=== PATIENT | male | born 1975 | race Caucasian/White ===

== ENCOUNTER 2017-06-20 08:24 | Inpatient (IN) | payer OTHER ==
[~2017-06-20] VITALS: Ht 175.3 cm; Wt 99.2 kg
--- NOTE | 2017-06-20 08:46 | EMERGENCY ROOM VISIT NOTE ---
History First contact with patient: 08:29 Chief Complaint: INFECTION Stated Complaint: BLOOD CLOT AND INFECTION Nursing Triage Summary: pt reports he was [place] a couple weeks ago had infection in left leg now worse. was hospitalized [place] [facility]. took percocet at 0430 this am History of Present Illness The patient is a 42 year old male who presents to the Emergency Room via private vehicle with complaints of "blood clot and infection". The patient states that he recently was admitted at [facility], and discharged on June 09. He states he was there because of leg ulcers, and cellulitis. He was given vancomycin. He states that the veins in his legs are very hard and tender to palpation. His left medial thigh is very painful that he rates as a 7 /10. He also notes odors coming from the bilateral anterior victoria wounds. He states that he is hypercoagulable, and has 3 different mutation/disorders of which place him at a higher risk. He has a history of PE in 1997. He states that in June of last year his legs were completely healed, however throughout that time he has been decompensating. 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 He stopped taking it because he could not get his INR tested. He denies any chest pain, shortness of breath, fevers or chills. He denies any diabetes, hypertension or cholesterol elevation. Review of Systems A complete 10-point Review of Systems was discussed with the patient, with pertinent positives and negatives listed in the History of Present Illness. All remaining Review of Systems questions can be considered negative unless otherwise specified. Past Medical/Surgical History Medical Problems: (1) Cellulitis Cellulitis, PE, DVT, Skin leg ulcers Family History No pertinent Social History Smoking Status: Current Every Day Smoker Pt. lives locally Current/Historical Medications Scheduled Albuterol Hfa (Ventolin Hfa), 2-4 PUFFS INH Q6H Docusate Sodium (Colace), 100 MG PO BID Fluticasone Prop/Salmeterol (Advair Diskus 250/50 60 Dose), 1 PUFF INH BID Folic Acid (Folic Acid), 1 MG PO DAILY Omeprazole (Prilosec), 20 MG PO BID Thiamine HCl (Vitamin B-1), 100 MG PO DAILY Tiotropium [place] (Spiriva Handihaler), 1 CAP INH DAILY Trazodone Hcl (Trazodone), 150 MG PO DAILY Scheduled PRN Oxycodone/Acetaminophen 5MG/325MG (Percocet 5MG/325MG), 2 TABLETS PO Q6H PRN for Pain Physical Exam Vital Signs Date Time Temp Pulse Resp B/P (MAP) Pulse Ox O2 Delivery O2 Flow Rate FiO2 06/20/17 13:26 88 18 137/81 96 Room Air 06/20/17 11:42 71 18 131/73 98 06/20/17 09:38 76 06/20/17 09:35 93 Room Air 06/20/17 09:35 81 18 132/78 93 Room Air 06/20/17 08:26 36.8 83 18 173/113 98 Room Air Physical Exam VITAL SIGNS - Vital signs and nursing notes were reviewed. Stable. GENERAL - 42-year-old male appearing his stated age who is in no acute distress. Communicates well with provider and answers questions appropriately. SKIN - there are numerous anterior victoria ulcerations, darkened skin and evidence of poor blood flow. HEAD - NC/AT. EYES -Sclera anicteric. EARS - No deformities of external structures noted on gross examination bilaterally. NOSE - Midline and without cyanosis. No epistaxis or purulent drainage noted. MOUTH/OROPHARYNX - Without perioral cyanosis. LUNGS - Chest wall symmetric without accessory muscle use, intercostals retractions, or central cyanosis. There is wheezing noted bilaterally. No focal consolidation noted. CARDIAC - RRR with S1/S2. No murmur, rubs, or gallops appreciated. EXTREMITIES - No clubbing or peripheral cyanosis. No pretibial edema present. There is bilateral darkening of the anterior shins, skin thinning, as well as erythema to the proximal thighs with tender to palpation hardened/indurated regions suspected to be veins. He is neurovascularly intact in this region. +5 /5 strength noted in UE/LE bilaterally. Medical Decision & Procedures ER Provider Diagnostic Interpretation: ULTRASOUND VENOUS DOPPLER LWR EXT BILA CLINICAL HISTORY: Bilateral leg pain, hypercoagulable state COMPARISON STUDY: No previous studies for comparison. FINDINGS: The examination was difficult. The veins were small possibly secondary to chronic scarring. On the right there was minimal color flow. The common femoral through the popliteal vein were not compressible. No expanding thrombus is visualized in the findings may reflect sequela of prior DVT. On the left there was diminished flow within the proximal superficial femoral vein. The mid and distal superficial femoral vein were not visualized. The popliteal vein was poorly visualized but there is a decreased compressibility. There are bilateral enlarged inguinal lymph nodes. IMPRESSION: 1. Bilateral DVT, likely chronic. 2. Enlarged bilateral inguinal lymph nodes Electronically signed by: Heriberto Tiwari M.D. 06/20/2017 12:33 PM Dictated Date/Time: 06/20/2017 11:49 AM Laboratory Results 06/20/17 08:55 Red Blood Count 4.88, Mean Corpuscular Volume 92.6, Mean Corpuscular Hemoglobin 32.0, Mean Corpuscular Hemoglobin Concent 34.5, Mean Platelet Volume 9.8, Neutrophils (%) (Auto) 82.5, Lymphocytes (%) (Auto) 9.9, Monocytes (%) (Auto) 6.3, Eosinophils (%) (Auto) 0.6, Basophils (%) (Auto) 0.5, Neutrophils # (Auto) 5.35, Lymphocytes # (Auto) 0.64, Monocytes # (Auto) 0.41, Eosinophils # (Auto) 0.04, Basophils # (Auto) 0.03 06/20/17 08:55 Test 06/20/17 08:55 06/20/17 11:50 White Blood Count 6.48 K/uL (4.8-10.8) Red Blood Count 4.88 M/uL (4.7-6.1) Hemoglobin 15.6 g/dL (14.0-18.0) Hematocrit 45.2 % (42-52) Mean Corpuscular Volume 92.6 fL (80-100) Mean Corpuscular Hemoglobin 32.0 pg (25-34) Mean Corpuscular Hemoglobin Concent 34.5 g/dl (32-36) Platelet Count 173 K/uL (130-400) Mean Platelet Volume 9.8 fL (7.4-10.4) Neutrophils (%) (Auto) 82.5 % Lymphocytes (%) (Auto) 9.9 % Monocytes (%) (Auto) 6.3 % Eosinophils (%) (Auto) 0.6 % Basophils (%) (Auto) 0.5 % Neutrophils # (Auto) 5.35 K/uL (1.4-6.5) Lymphocytes # (Auto) 0.64 K/uL (1.2-3.4) Monocytes # (Auto) 0.41 K/uL (0.11-0.59) Eosinophils # (Auto) 0.04 K/uL (0-0.5) Basophils # (Auto) 0.03 K/uL (0-0.2) RDW Standard Deviation 53.6 fL (36.4-46.3) RDW Coefficient of Variation 15.6 % (11.5-14.5) Immature Granulocyte % (Auto) 0.2 % Immature Granulocyte # (Auto) 0.01 K/uL (0.00-0.02) Prothrombin Time 10.3 SECONDS (9.0-12.0) Prothromb Time International Ratio 1.0 (0.9-1.1) Activated Partial Thromboplast Time 25.4 SECONDS (21.0-31.0) Partial Thromboplastin Ratio 1.0 Anion Gap 9.0 mmol/L (3-11) Est Creatinine Clear Calc Drug Dose 122.9 ml/min Estimated GFR () 120.8 Estimated GFR (Non- 104.2 BUN/Creatinine Ratio 8.4 (10-20) Calcium Level 9.3 mg/dl (8.5-10.1) Total Bilirubin 0.7 mg/dl (0.2-1) Aspartate Amino Transf (AST/SGOT) 37 U/L (15-37) Alanine Aminotransferase (ALT/SGPT) 55 U/L (12-78) Alkaline Phosphatase 97 U/L (45-117) Total Protein 9.4 gm/dl (6.4-8.2) Albumin 3.7 gm/dl (3.4-5.0) Globulin 5.7 gm/dl (2.5-4.0) Albumin/Globulin Ratio 0.7 (0.9-2) Bedside Lactic Acid Venous 0.66 mmol/L (0.90-1.70) Medications Administered Medications (Trade) Dose Ordered Sig/Ilia Route Start Time Stop Time Status Last Admin Dose Admin Morphine Sulfate (MoRPHine SULFATE INJ) 4 mg NOW STAT IV 06/20/17 09:24 06/20/17 09:25 DC 06/20/17 09:32 4 MG Medical Decision Patient was seen and evaluated as above. After obtaining a thorough history and physical examination IV access was initiated, and a workup was performed. The patient presents to us today with bilateral thigh pain. He has a history of DVT. He has a history of PE. He is a hypercoagulable individual. Ultrasound reveals bilateral DVT with inguinal lymph node enlargement. Clinically he may have a cellulitis superimposed. CBC reveals no concern of leukocytosis or anemia. Coags normal. Patient's metabolic panel reveals potassium slightly low at 3.3. Otherwise no acute process. Blood cultures were obtained. Lactate is normal. At this time the patient I believe should be admitted for further evaluation and management. Case was discussed with the attending physician, and subtotally discussed the case with the hospitalist. Please refer to further documentation regarding the patient's stay. Evaluation treatment this patient the following differential diagnoses were entertained: DVT, PE, sialitis, femoral phlebitis, among others. Impression Primary Impression: DVT of lower extremity, bilateral Departure Information Dispostion Admitted as an inpatient Condition FAIR Referrals No Doctor, Assigned (PCP) Patient Instructions [facility]
[2017-06-20] MEDS ORDERED: ADVIN25/60 INH (09:04)
[2017-06-20] MEDS ORDERED: VNTHFA/IN INH (09:04)
[2017-06-20] MEDS ORDERED: OXYC-57 PO (09:04)
[2017-06-20] MEDS ORDERED: PRLSR20 PO (09:04)
[2017-06-20] MEDS ORDERED: TRAZ100T29 PO (09:04)
[2017-06-20 09:23] LABS: BASO % 0.5 %; BASO ABS # 0.03 K/uL (0-0.2); COMPLETE YES; EOS % 0.6 %; HEMATOCRIT 45.2 % (42-52); IG% 0.2 %; LYMPH % 9.9 %; LYMPH ABS # 0.64 K/uL (1.2-3.4); MEAN CELL VOLUME 92.6 fL (80-100); MEAN CORPUSCULAR HGB CONC 34.5 g/dl (32-36); MEAN PLATELET VOLUME 9.8 fL (7.4-10.4); MONO % 6.3 %; NEUT % 82.5 %; PLATELET COUNT 173 K/uL (130-400); RED BLOOD COUNT 4.88 M/uL (4.7-6.1); WHITE BLOOD COUNT 6.48 K/uL (4.8-10.8)
[2017-06-20] MEDS ORDERED: MoRPHine SULFATE 4 MG/ML 1 ML CARP\\VIAL IV STA (09:24)
[2017-06-20 09:32] LABS: PROTHROMBIN TIME (PATIENT) 10.3 SECONDS (9.0-12.0)
[2017-06-20 09:40] LABS: BUN/CREATININE RATIO 8.4 (10-20); CALCIUM 9.3 mg/dl (8.5-10.1); CREATININE 0.9 mg/dl (0.60-1.40); POTASSIUM 3.3 mmol/L (3.5-5.1)
[2017-06-20 09:43] LABS: ALB/GLOB RATIO 0.7 (0.9-2)
--- NOTE | 2017-06-20 12:34 | DIAGNOSTIC IMAGING REPORT ---
ULTRASOUND VENOUS DOPPLER LWR EXT BILA CLINICAL HISTORY: Bilateral leg pain, hypercoagulable state COMPARISON STUDY: No previous studies for comparison. FINDINGS: The examination was difficult. The veins were small possibly secondary to chronic scarring. On the right there was minimal color flow. The common femoral through the popliteal vein were not compressible. No expanding thrombus is visualized in the findings may reflect sequela of prior DVT. On the left there was diminished flow within the proximal superficial femoral vein. The mid and distal superficial femoral vein were not visualized. The popliteal vein was poorly visualized but there is a decreased compressibility. There are bilateral enlarged inguinal lymph nodes. IMPRESSION: 1. Bilateral DVT, likely chronic. 2. Enlarged bilateral inguinal lymph nodes Electronically signed by: Heriberto Tiwari M.D. 06/20/2017 12:33 PM Dictated Date/Time: 06/20/2017 11:49 AM
[2017-06-20] MEDS ORDERED: POLYETHYLENE (MIRALAX) 17 GM PACK PO PRN (14:00)
[2017-06-20] MEDS ORDERED: ONDANSETRON INJ 2 MG/ML 2 ML VIAL IV PRN (14:00)
[2017-06-20] MEDS ORDERED: ACETAMINOPHEN 325 MG TAB PO PRN (14:00)
[2017-06-20] MEDS ORDERED: CONSULT PHARMACY STA (14:11)
[2017-06-20] MEDS ORDERED: THM100 PO (14:24)
[2017-06-20] MEDS ORDERED: SPRIN/30 INH (14:24)
[2017-06-20] MEDS ORDERED: FLV1 PO (14:24)
[2017-06-20] MEDS ORDERED: DOCU-94 PO (14:24)
--- NOTE | 2017-06-20 14:28 | History and Physical ---
History & Physical Date & Time of Service: Jun 20, 2017 at 13:24 Chief Complaint: Blood Clot And Infection Primary Care Physician: No Doctor, Assigned History of Present Illness Source: patient, clinic records, hospital records 42 yo M with h/o severe venous stasis, DVT and PE on chronic warfarin anticoagulation who presents with worsening infectious symptoms in his groin and upper legs L>R. He has had multiple hospital admissions for cellulitis at [facility], the most recent was 06/06-06/09/17. During this admission , he was started on IV Vancomycin was discharged with clindamycin which was complete on 06/14. The patient states he doesn't think the clindamycin made any improvement at home. He recently states that he stopped his coumadin 2/2 losing his license and not being able to get his INR checked. (Of note, he reports losing his license 2/2 DUI in December but states that although he was a heavy drinker in the past, he doesn't drink more than once weekly now.) He was also hospitalized in 04/13 at the same facility for this issues and spent 6 weeks in a rehab facility. He was home for two weeks prior to his May admission. He lives at home alone with his mom as closest family in [place] [place] [facility]. He still smokes 0.5 ppd. He denies any SOB or coughing or wheezing, but when I informed him that I heard wheezing on the exam, he said he knew that "because I smoke." He has been treating his wounds with silvadene at home. He reports some worsening drainage that is not pus but states that he has a h/o MRSA and was told to always consider any drainage to be a MRSA infection. He reports some fevers and chills last week. He reports good PO intake and denies any chest pain, headaches, congestion, abdominal pain, nausea, vomiting, diarrhea, UTI symptoms or difficulties with ambulation. Past Medical/Surgical History Medical Problems: (1) Chronic deep vein thrombosis (DVT) Status: Chronic (2) Chronic ulcer of leg Status: Chronic (3) Chronic venous stasis dermatitis of both lower extremities Status: Chronic (4) COPD (chronic obstructive pulmonary disease) Status: Chronic (5) Depression Status: Chronic (6) GERD (gastroesophageal reflux disease) Status: Chronic (7) H/O ETOH abuse Status: Chronic (8) H/O methicillin resistant Staphylococcus aureus Status: Chronic (9) Hypercoagulable state Status: Chronic (10) Narcotic dependence Status: Chronic (11) Tobacco abuse Status: Chronic (12) Venous (peripheral) insufficiency Status: Chronic Family History Hypercoagulability MOTHER Social History Smoking Status: Current Every Day Smoker Smokeless Tobacco Use: No Alcohol Use: heavy Marital Status: single Housing status: lives alone Immunizations History of Influenza Vaccine: Yes Influenza Vaccine Date: Jun 08, 2017 History of Tetanus Vaccine?: Yes Tetanus Immunization Date: Mar 22, 2007 History of Pneumococcal: Yes Pneumococcal Date: Feb 09, 2017 History of Hepatitis B Vaccine: Unknown Multi-Drug Resistant Organisms History of MDRO: Yes Type of MDRO: MRSA Allergies Coded Allergies: Sulfamethoxazole w/Trimethoprim (Unverified Allergy, Unknown, hives, 06/20) Uncoded Allergies: DUST (Allergy, Unknown, 10/10/02) N (Allergy, Unknown, 10/10/02) NKA (Allergy, Unknown, 10/10/02) PEAS (Allergy, Unknown, 10/10/02) Home Medications Scheduled Albuterol Hfa (Ventolin Hfa), 2-4 PUFFS INH Q6H Docusate Sodium (Colace), 100 MG PO BID Fluticasone Prop/Salmeterol (Advair Diskus 250/50 60 Dose), 1 PUFF INH BID Folic Acid (Folic Acid), 1 MG PO DAILY Omeprazole (Prilosec), 20 MG PO BID Thiamine HCl (Vitamin B-1), 100 MG PO DAILY Tiotropium [place] (Spiriva Handihaler), 1 CAP INH DAILY Trazodone Hcl (Trazodone), 150 MG PO DAILY Scheduled PRN Oxycodone/Acetaminophen 5MG/325MG (Percocet 5MG/325MG), 2 TABLETS PO Q6H PRN for Pain Review of Systems At least ten systems reviewed and negative except as indicated in HPI. Physical Exam Vital Signs Date Time Temp Pulse Resp B/P (MAP) Pulse Ox O2 Delivery O2 Flow Rate FiO2 06/20/17 11:42 71 18 131/73 98 06/20/17 09:38 76 06/20/17 09:35 93 Room Air 06/20/17 09:35 81 18 132/78 93 Room Air 06/20/17 08:26 36.8 83 18 173/113 98 Room Air General Appearance: WD/WN, no apparent distress Head: normocephalic, atraumatic Eyes: normal inspection, sclerae normal ENT: hearing grossly normal Neck: trachea midline Respiratory/Chest: + crackles, + wheezing (throughout all lung johnson) Cardiovascular: regular rate, rhythm, no JVD, no murmur, normal peripheral pulses Abdomen/GI: normal bowel sounds, non tender, soft Extremities/Musculoskelatal: + inflammation, + pedal edema, + pertinent finding (redness all way up legs bilaterally, warmth to upper thighs over erythema, chronic darkened skin with healed ulcerations distally and open draining wounds on anterior lower legs, malodorous.) Neurologic/Psych: golf ball marker II-XII nml as tested, no motor/sensory deficits, alert, normal mood/affect, oriented x 3 Skin: + pertinent finding (wounds as above on legs, otherwise warm and dry. ) Lymphatic: no adenopathy Diagnostics Laboratory Results 06/20/17 08:55 Red Blood Count 4.88, Mean Corpuscular Volume 92.6, Mean Corpuscular Hemoglobin 32.0, Mean Corpuscular Hemoglobin Concent 34.5, Mean Platelet Volume 9.8, Neutrophils (%) (Auto) 82.5, Lymphocytes (%) (Auto) 9.9, Monocytes (%) (Auto) 6.3, Eosinophils (%) (Auto) 0.6, Basophils (%) (Auto) 0.5, Neutrophils # (Auto) 5.35, Lymphocytes # (Auto) 0.64, Monocytes # (Auto) 0.41, Eosinophils # (Auto) 0.04, Basophils # (Auto) 0.03 06/20/17 08:55 Test 06/20/17 08:55 06/20/17 11:50 White Blood Count 6.48 K/uL (4.8-10.8) Red Blood Count 4.88 M/uL (4.7-6.1) Hemoglobin 15.6 g/dL (14.0-18.0) Hematocrit 45.2 % (42-52) Mean Corpuscular Volume 92.6 fL (80-100) Mean Corpuscular Hemoglobin 32.0 pg (25-34) Mean Corpuscular Hemoglobin Concent 34.5 g/dl (32-36) Platelet Count 173 K/uL (130-400) Mean Platelet Volume 9.8 fL (7.4-10.4) Neutrophils (%) (Auto) 82.5 % Lymphocytes (%) (Auto) 9.9 % Monocytes (%) (Auto) 6.3 % Eosinophils (%) (Auto) 0.6 % Basophils (%) (Auto) 0.5 % Neutrophils # (Auto) 5.35 K/uL (1.4-6.5) Lymphocytes # (Auto) 0.64 K/uL (1.2-3.4) Monocytes # (Auto) 0.41 K/uL (0.11-0.59) Eosinophils # (Auto) 0.04 K/uL (0-0.5) Basophils # (Auto) 0.03 K/uL (0-0.2) RDW Standard Deviation 53.6 fL (36.4-46.3) RDW Coefficient of Variation 15.6 % (11.5-14.5) Immature Granulocyte % (Auto) 0.2 % Immature Granulocyte # (Auto) 0.01 K/uL (0.00-0.02) Prothrombin Time 10.3 SECONDS (9.0-12.0) Prothromb Time International Ratio 1.0 (0.9-1.1) Activated Partial Thromboplast Time 25.4 SECONDS (21.0-31.0) Partial Thromboplastin Ratio 1.0 Anion Gap 9.0 mmol/L (3-11) Est Creatinine Clear Calc Drug Dose 122.9 ml/min Estimated GFR () 120.8 Estimated GFR (Non- 104.2 BUN/Creatinine Ratio 8.4 (10-20) Calcium Level 9.3 mg/dl (8.5-10.1) Total Bilirubin 0.7 mg/dl (0.2-1) Aspartate Amino Transf (AST/SGOT) 37 U/L (15-37) Alanine Aminotransferase (ALT/SGPT) 55 U/L (12-78) Alkaline Phosphatase 97 U/L (45-117) Total Protein 9.4 gm/dl (6.4-8.2) Albumin 3.7 gm/dl (3.4-5.0) Globulin 5.7 gm/dl (2.5-4.0) Albumin/Globulin Ratio 0.7 (0.9-2) Bedside Lactic Acid Venous 0.66 mmol/L (0.90-1.70) Date/Time Source Procedure Growth Status 06/20/17 09:15 Blood Blood Culture Pending Received Results Past 24 Hours Test 06/20/17 08:55 06/20/17 09:03 06/20/17 11:50 Range/Units White Blood Count 6.48 4.8-10.8 K/uL Red Blood Count 4.88 4.7-6.1 M/uL Hemoglobin 15.6 14.0-18.0 g/dL Hematocrit 45.2 42-52 % Mean Corpuscular Volume 92.6 80-100 fL Mean Corpuscular Hemoglobin 32.0 25-34 pg Mean Corpuscular Hemoglobin Concent 34.5 32-36 g/dl Platelet Count 173 130-400 K/uL Mean Platelet Volume 9.8 7.4-10.4 fL Neutrophils (%) (Auto) 82.5 % Lymphocytes (%) (Auto) 9.9 % Monocytes (%) (Auto) 6.3 % Eosinophils (%) (Auto) 0.6 % Basophils (%) (Auto) 0.5 % Neutrophils # (Auto) 5.35 1.4-6.5 K/uL Lymphocytes # (Auto) 0.64 1.2-3.4 K/uL Monocytes # (Auto) 0.41 0.11-0.59 K/uL Eosinophils # (Auto) 0.04 0-0.5 K/uL Basophils # (Auto) 0.03 0-0.2 K/uL RDW Standard Deviation 53.6 36.4-46.3 fL RDW Coefficient of Variation 15.6 11.5-14.5 % Immature Granulocyte % (Auto) 0.2 % Immature Granulocyte # (Auto) 0.01 0.00-0.02 K/uL Prothrombin Time 10.3 9.0-12.0 SECONDS Prothromb Time International Ratio 1.0 0.9-1.1 Activated Partial Thromboplast Time 25.4 21.0-31.0 SECONDS Partial Thromboplastin Ratio 1.0 Sodium Level 138 136-145 mmol/L Potassium Level 3.3 3.5-5.1 mmol/L Chloride Level 106 98-107 mmol/L Carbon Dioxide Level 23 21-32 mmol/L Anion Gap 9.0 3-11 mmol/L Blood Urea Nitrogen 8 7-18 mg/dl Creatinine 0.90 0.60-1.40 mg/dl Est Creatinine Clear Calc Drug Dose 122.9 ml/min Estimated GFR () 120.8 Estimated GFR (Non- 104.2 BUN/Creatinine Ratio 8.4 10-20 Random Glucose 116 70-99 mg/dl Calcium Level 9.3 8.5-10.1 mg/dl Total Bilirubin 0.7 0.2-1 mg/dl Aspartate Amino Transf (AST/SGOT) 37 15-37 U/L Alanine Aminotransferase (ALT/SGPT) 55 12-78 U/L Alkaline Phosphatase 97 45-117 U/L Total Protein 9.4 6.4-8.2 gm/dl Albumin 3.7 3.4-5.0 gm/dl Globulin 5.7 2.5-4.0 gm/dl Albumin/Globulin Ratio 0.7 0.9-2 Bedside Lactic Acid Venous 1.51 0.66 0.90-1.70 mmol/L Microbiology Results 06/20/17 Blood Culture, Received Pending 06/20/17 Blood Culture, Received Pending Diagnostic Radiology ULTRASOUND VENOUS DOPPLER LWR EXT BILA CLINICAL HISTORY: Bilateral leg pain, hypercoagulable state COMPARISON STUDY: No previous studies for comparison. FINDINGS: The examination was difficult. The veins were small possibly secondary to chronic scarring. On the right there was minimal color flow. The common femoral through the popliteal vein were not compressible. No expanding thrombus is visualized in the findings may reflect sequela of prior DVT. On the left there was diminished flow within the proximal superficial femoral vein. The mid and distal superficial femoral vein were not visualized. The popliteal vein was poorly visualized but there is a decreased compressibility. There are bilateral enlarged inguinal lymph nodes. IMPRESSION: 1. Bilateral DVT, likely chronic. 2. Enlarged bilateral inguinal lymph nodes Impression Assessment and Plan 42 yo M smoker with h/o narcotic dependence, chronic DVT secondary to hypercoagulable state and recurrent cellulitis with multiple hospital admissions admitted for worsening cellulitis of lower extremities. 1. Bilateral LE cellulitis-h/o peripheral venous insufficiency with chronic wounds and DVTs, multiple recent hospitalizations including Mar and May 2017 for cellulitis at outside hospital. Most recent regimen included Vanc IV x 3 days with transition to clindamycin for 5 days as outpatient. Per patient he was not improved post-discharge. Will start more broad with IV abx to cover MRSA, pseudomonas and anaerobes (Vanc/Zosyn) and will consult ID and wound care for evaluation. Wound GS/Culture ordered. Blood cultures ordered (pt not septic). 2. COPD exacerbation-wheezing on exam. Starting course of prednisone. Ordered Duonebs but pt declined and prefers to use albuterol inhaler. He is not hypoxic and without respiratory distress. CXR pending. On abx as above covering any poss lung pathogens. Nicotine patch given. Counseled on quitting smoking. States that he has tried nicotine patches in the past and he is cutting back to 1/2 pack per day. 3. DVT-recurrent. Uncertain of initial diagnosis date. States that he initially had PE in 1997 and was on coumadin for 2 years, then taken off with recurrent DVT. Then was out on it lifelong. Mutations were found by [facility] at [facility] >10 years ago and he doesn't see someone regularly. Venous doppler reveals bilateral DVT likely chronic. Need to restart coumadin and will cover with Lovenox 1mg/kg until therapeutic for 2 days. Pt will need [facility] follow-up on discharge and a new way to get there since losing his license. Appreciate Case Management assistance with this. 4. Hypokalemia-replace PO. Repeat in am. 5. Chronic leg pain/narcotic dependence-cont Percocet 6. Depression-appears stable, not on medications at home 7. h/o ETOH abuse-cont folate and thiamine. Watch for alcohol withdrawal. Pt reports last drink was last week. 8. Smoker-counseled to quit. Nicotine patch provided 9. GERD-cont PPI BID DVT proh-Lovenox/coumadin Full Code Dispo-med[facility]surg. [facility] Level of Care Med/Surg Resuscitation Status FULL RESUSCITATION VTE Prophylaxis Risk Level: High Given or contraindicated: Enoxaparin (Lovenox)SQ, Warfarin (Coumadin)
[2017-06-20] MEDS ORDERED: VANCOMYCIN CONSULT ACTIVE PRN (14:30)
[2017-06-20] MEDS ORDERED: PIPERACILL/TAZOBAC CONSULT ACTIVE PRN (14:30)
[2017-06-20 14:42] VITALS: BP 150/77; PULSE 76; TEMP 36.5; O2SAT 97
[2017-06-20] MEDS ORDERED: ENOXAPARIN 100 MG/1ML SYR SQ ONE (14:45)
[2017-06-20] MEDS ORDERED: POTASSIUM CHLORIDE 20 MEQ TABCR PO ONE (14:45)
--- NOTE | 2017-06-20 14:50 | Progress Note ---
Progress Note Date of Service Jun 20, 2017. Progress Note ID Consult Dictated #[id number] A/P: 1. B/L LE venous stasis ulcers -Continue abx for now -Wound care eval pending -Will follow, thank you
--- NOTE | 2017-06-20 15:09 | INFECT. DISEASE CONSULTATION ---
DATE OF CONSULTATION: 06/20/2017 REQUESTING PHYSICIAN: Jeromy Melgar DO HISTORY OF PRESENT ILLNESS: This is a 42-year-old gentleman who was admitted with worsening lower extremity wounds. He has chronic DVTs, history of PE and recently has stopped his Coumadin. He was recently hospitalized at [facility] and he states he has had multiple admissions there for recurrent cellulitis. There are no old records here to review. Blood cultures were obtained in the ER and are pending. He is afebrile without leukocytosis and clinically stable. He was placed empirically on vancomycin and Zosyn. A wound care consult was obtained. The patient states that he was to follow with the wound care center as an outpatient tomorrow; however, he was admitted to the hospital for worsening erythema and pain especially in his left lower extremity. He denies any fevers or chills at home. He denies any drainage from the wounds. He is having some pain with ambulation. He denies any chest pain, cough, shortness of breath, nausea, vomiting or diarrhea. Per the H&P, he was recently on a course of clindamycin which finished last week. He states that his symptoms have not improved significantly while on clindamycin. His remaining review of systems is reviewed and is unremarkable. PAST MEDICAL HISTORY: Significant for DVT, venous stasis ulcerations, PE and recurrent cellulitis. PAST SURGICAL HISTORY: Unremarkable. SOCIAL HISTORY: Significant for daily tobacco use. ALLERGIES: HE HAS AN ALLERGY TO BACTRIM. FAMILY HISTORY: Noncontributory. CURRENT MEDICATIONS: Include folic acid, thiamine, trazodone, prednisone, Colace, Protonix, Coumadin, DuoNebs, nicotine patch, potassium, Lovenox, vancomycin, Zosyn, Percocet, Tylenol, MiraLax and Zofran. PHYSICAL EXAMINATION: VITAL SIGNS: He is afebrile, pulse 76, respiratory rate is 22, blood pressure is 150/77, and oxygen saturation is 97% on room air. GENERAL: He is awake, alert and oriented x3. He is in no acute distress. HEENT: Mucous membranes are moist. Extraocular muscles are intact. HEART: Regular. LUNGS: Clear bilaterally. ABDOMEN: Soft, nontender, nondistended. EXTREMITIES: There is no lower extremity edema bilaterally. There is significant discoloration of his lower extremities with ulcerations bilaterally. There is no purulence, foul odor, or surrounding erythema. There is no warmth. There is erythema in the left popliteal fossa, which is tracking into the left groin. There is no warmth or tenderness associated with this. LABORATORY STUDIES: CBC today reveals a white blood cell count of 6.4, hemoglobin 15.6 and platelets of 173. Chemistry panel reveals sodium of 138, potassium 3.3, chloride 106, bicarbonate 23, BUN 8, creatinine 0.9, glucose is 116. Blood cultures are pending. Venous Doppler shows bilateral chronic DVTs. ASSESSMENT AND PLAN: Bilateral ulcerations. Wound care eval is pending. He will remain on broad spectrum antibiotics pending additional culture results. Thank you for this consultation.
[2017-06-20] MEDS: NICOTINE 21 MG/24 HR TDSY TD SCH (15:29)
[2017-06-20] MEDS: WARFARIN SOD 5 MG TAB PO SCH (15:30)
[2017-06-20 15:37] VITALS: BP 150/77; PULSE 76; TEMP 36.5; O2SAT 97; Ht 175.3 cm; Wt 99.2 kg
[2017-06-20] MEDS: OXYCODONE/ACETAMINOPHEN 5-325 TAB PO PRN ×2 (15:41→22:33)
[2017-06-20] MEDS ORDERED: PIPERACILL/TAZOBAC IV 3.375 GM in DEXTROSE 5% 100ML IV ONE (15:45)
[2017-06-20] MEDS ORDERED: VANCOMYCIN INJ 2,500 MG in SODIUM CHLORIDE 0.9% 500ML 500 ML IV ONE (15:45)
[2017-06-20] MEDS ORDERED: ALBUT/IPRATROP 3MG/0.5MG NEB 3 ML VIAL INH SCH (16:00)
[2017-06-20 16:03] VITALS: PULSE 80; O2SAT 97
--- NOTE | 2017-06-20 16:07 | DIAGNOSTIC IMAGING REPORT ---
CHEST ONE VIEW PORTABLE HISTORY: wheezing COMPARISON: None. FINDINGS: Mild perihilar interstitial thickening most pronounced at the lung bases. The heart is top normal in size. No pleural effusions. No pneumothorax. IMPRESSION: Mild interstitial thickening. This may represent an atypical pneumonitis versus reactive airways disease. Electronically signed by: Julian Gaitan M.D. 06/20/2017 4:06 PM Dictated Date/Time: 06/20/2017 4:05 PM
[2017-06-20] MEDS ORDERED: ALBUTEROL HFA 8 GM INHALER INH PRN (16:15)
--- NOTE | 2017-06-20 16:26 | Pharmacy Progress Note ---
Pharmacy Antibiotic Consult Date of Service: Jun 20, 2017. Pharmacy Dosing Scope Pharmacy is consulted to initiate Vancomycin and Zosyn IV dosing therapy, order appropriate labs and adjust drug dose/frequency. Subjective The patient is a 42 year old male admitted on Jun 20, 2017 at 13:29. Patient has a history of chronic DVT's and bilateral leg cellulitis with ulceration. Objective Height (Feet): 5 Height (Inches): 9.00 Weight (Kilograms): 99.200 Lab Results (24hrs): Test 06/20/17 08:55 06/20/17 09:03 06/20/17 11:50 White Blood Count 6.48 K/uL (4.8-10.8) Red Blood Count 4.88 M/uL (4.7-6.1) Hemoglobin 15.6 g/dL (14.0-18.0) Hematocrit 45.2 % (42-52) Mean Corpuscular Volume 92.6 fL (80-100) Mean Corpuscular Hemoglobin 32.0 pg (25-34) Mean Corpuscular Hemoglobin Concent 34.5 g/dl (32-36) Platelet Count 173 K/uL (130-400) Mean Platelet Volume 9.8 fL (7.4-10.4) Neutrophils (%) (Auto) 82.5 % Lymphocytes (%) (Auto) 9.9 % Monocytes (%) (Auto) 6.3 % Eosinophils (%) (Auto) 0.6 % Basophils (%) (Auto) 0.5 % Neutrophils # (Auto) 5.35 K/uL (1.4-6.5) Lymphocytes # (Auto) 0.64 K/uL (1.2-3.4) Monocytes # (Auto) 0.41 K/uL (0.11-0.59) Eosinophils # (Auto) 0.04 K/uL (0-0.5) Basophils # (Auto) 0.03 K/uL (0-0.2) RDW Standard Deviation 53.6 fL (36.4-46.3) RDW Coefficient of Variation 15.6 % (11.5-14.5) Immature Granulocyte % (Auto) 0.2 % Immature Granulocyte # (Auto) 0.01 K/uL (0.00-0.02) Prothrombin Time 10.3 SECONDS (9.0-12.0) Prothromb Time International Ratio 1.0 (0.9-1.1) Activated Partial Thromboplast Time 25.4 SECONDS (21.0-31.0) Partial Thromboplastin Ratio 1.0 Sodium Level 138 mmol/L (136-145) Potassium Level 3.3 mmol/L (3.5-5.1) Chloride Level 106 mmol/L (98-107) Carbon Dioxide Level 23 mmol/L (21-32) Anion Gap 9.0 mmol/L (3-11) Blood Urea Nitrogen 8 mg/dl (7-18) Creatinine 0.90 mg/dl (0.60-1.40) Est Creatinine Clear Calc Drug Dose 122.9 ml/min Estimated GFR () 120.8 Estimated GFR (Non- 104.2 BUN/Creatinine Ratio 8.4 (10-20) Random Glucose 116 mg/dl (70-99) Calcium Level 9.3 mg/dl (8.5-10.1) Total Bilirubin 0.7 mg/dl (0.2-1) Aspartate Amino Transf (AST/SGOT) 37 U/L (15-37) Alanine Aminotransferase (ALT/SGPT) 55 U/L (12-78) Alkaline Phosphatase 97 U/L (45-117) Total Protein 9.4 gm/dl (6.4-8.2) Albumin 3.7 gm/dl (3.4-5.0) Globulin 5.7 gm/dl (2.5-4.0) Albumin/Globulin Ratio 0.7 (0.9-2) Bedside Lactic Acid Venous 1.51 mmol/L (0.90-1.70) 0.66 mmol/L (0.90-1.70) Assessment & Plan Assessment Patient was recently hospitalized for recurrent cellulitis at [facility]. He is currently afebrile with no leukocytosis. He has a history of pseudomonas and MRSA per previous note. Wound cultures ordered. Blood cultures pending. Vancomycin goal trough for cellulitis with history of MRSA 15-20 mcg/mL. Vancomycin dosing will be based on the following pk parameters: half-life=8 hrs Ke=0.087 Will order a trough level after the 4th maintenance dose when drug is at steady state. Zosyn will be dosed for patients with a CrCl>20 ml/min Plan Vancomycin * Loading dose: (25 mg/kg) 2500mg IV x 1 * Maintenance dose (13 mg/kg) 80808 mg IV q 10 hours * Trough level ordered for 06/22 @0730 Zosyn * 3.375gm IV x 1 over 30 minutes * 3.375gm IV q 8 hours Pharmacy will continue to follow and will adjust dose/frequency as necessary. Thank you
[2017-06-20 16:27] VITALS: BP 121/73; PULSE 71; TEMP 36.6; O2SAT 97
[2017-06-20 17:03] VITALS: BP 113/68; PULSE 62; O2SAT 97
[2017-06-20] MEDS ORDERED: ALBUT/IPRATROP 3MG/0.5MG NEB 3 ML VIAL INH PRN (20:00)
[2017-06-20] MEDS: PANTOprazole SOD 40 MG TAB PO SCH (21:14)
[2017-06-20] MEDS: DOCUSATE SODIUM 100 MG CAP PO SCH (21:14)
[2017-06-20 21:22] LABS: URINE APPEARANCE CLEAR (CLEAR); URINE BILIRUBIN NEG (NEG); URINE COLOR ORANGE; URINE NITRITE NEG (NEG); URINE PH 6.5 (4.5-7.5); URINE SPECIFIC GRAVITY 1.014 (1.000-1.030); UROBILINOGEN NEG (NEG); ZZUR CULT IF INDIC CLEAN CATCH NO
[2017-06-20 21:24] LABS: MANUAL MICROSCOPIC REQUIRED? NO; REVIEW REQ? NO
[2017-06-20] MEDS: PIPERACILL/TAZOBAC IV 3.375 GM in DEXTROSE 5% 100ML IV SCH (21:38)
[2017-06-20] MEDS: TRAZODONE HCL 100 MG TAB PO SCH (22:34)
[2017-06-20 23:36] VITALS: BP 143/75; PULSE 78; TEMP 36.4; O2SAT 96
[2017-06-21] MEDS: VANCOMYCIN INJ 1,250 MG in SODIUM CHLORIDE 0.9% 250ML 250 ML IV SCH ×3 (02:02→21:33)
[2017-06-21] MEDS ORDERED: ENOXAPARIN 100 MG/1ML SYR SQ SCH (05:00)
[2017-06-21] MEDS: OXYCODONE/ACETAMINOPHEN 5-325 TAB PO PRN ×3 (05:22→18:46)
[2017-06-21] MEDS: PIPERACILL/TAZOBAC IV 3.375 GM in DEXTROSE 5% 100ML IV SCH ×3 (05:23→21:33)
[2017-06-21 07:23] VITALS: BP 104/64; PULSE 63; TEMP 36.6; O2SAT 94
[2017-06-21 08:02] LABS: BASO % 0.8 %; BASO ABS # 0.04 K/uL (0-0.2); COMPLETE YES; EOS % 0.4 %; HEMATOCRIT 43.6 % (42-52); IG% 0.2 %; LYMPH % 11.8 %; LYMPH ABS # 0.59 K/uL (1.2-3.4); MEAN CELL VOLUME 93.4 fL (80-100); MEAN CORPUSCULAR HGB CONC 33.3 g/dl (32-36); MEAN PLATELET VOLUME 9.7 fL (7.4-10.4); NEUT % 79.8 %; PLATELET COUNT 163 K/uL (130-400); RED BLOOD COUNT 4.67 M/uL (4.7-6.1)
[2017-06-21 08:10] LABS: PROTHROMBIN TIME (PATIENT) 10.3 SECONDS (9.0-12.0)
[2017-06-21 08:37] LABS: BUN/CREATININE RATIO 9.2 (10-20); CALCIUM 8.8 mg/dl (8.5-10.1); CREATININE 0.7 mg/dl (0.60-1.40)
[2017-06-21] MEDS ORDERED: TRAZODONE HCL 50 MG TAB PO SCH (09:00)
[2017-06-21] MEDS: PANTOprazole SOD 40 MG TAB PO SCH ×2 (09:20→20:41)
[2017-06-21] MEDS: DOCUSATE SODIUM 100 MG CAP PO SCH ×2 (09:20→20:41)
[2017-06-21] MEDS: NICOTINE 21 MG/24 HR TDSY TD SCH (09:21)
[2017-06-21] MEDS: THIAMINE HCL 100 MG TAB PO SCH (09:21)
--- NOTE | 2017-06-21 10:48 | Hospitalist Progress Note ---
Hospitalist Progress Note Date of Service Jun 21, 2017. (Bárbara Jimenez, CHERRIC) Subjective Pt seen and examined and voices that he is feeling much better today. States left leg is feeling "99%" better with much decreased pain to left upper inner leg. Pt reports had prominent veins to left upper leg yesterday which have decreased today and reports redness much improved today also. Doesn't feel lower leg wounds any worse. Pt reports during the night felt sweaty, hasn't felt that way since. Pt states has some chest tightness/wheezing that he usually uses albuterol QID and advair. Doesn't feel this is any worse. Urinating normally. No BM today. Denies chills, N/V, SCOTT, dizziness,CP, SOB, orthopnea, palpitations. (Bárbara Jimenez, GREGORIO) Objective Vital Signs Date Time Temp Pulse Resp B/P (MAP) Pulse Ox O2 Delivery O2 Flow Rate FiO2 06/21/17 07:23 36.6 63 18 104/64 (77) 94 Room Air 06/21/17 00:00 Room Air 06/20/17 23:36 36.4 78 20 143/75 (97) 96 Room Air 06/20/17 17:03 62 18 113/68 (83) 97 Room Air 06/20/17 16:27 36.6 71 20 121/73 (89) 97 Room Air 06/20/17 16:03 80 16 97 Room Air 06/20/17 16:00 Room Air 06/20/17 15:37 36.5 76 22 150/77 97 Room Air 06/20/17 14:42 36.5 76 22 150/77 (101) 97 Room Air 06/20/17 13:26 88 18 137/81 96 Room Air 06/20/17 11:42 71 18 131/73 98 06/20/17 09:38 76 06/20/17 09:35 93 Room Air 06/20/17 09:35 81 18 132/78 93 Room Air (Bárbara Jimenez, PEMA-C) Physical Exam General Appearance: WD/WN, no apparent distress Neck: supple, trachea midline Respiratory/Chest: no respiratory distress, no accessory muscle use, + wheezing (scattered throughout, no rales or rhonchi noted) Cardiovascular: regular rate, rhythm, no murmur Abdomen: normal bowel sounds, non tender, soft Extremities: + pedal edema, + pertinent finding (+chronic hyperpigmentation to bilateral lower legs. +healing ulcerations to distal legs, +open wound anterior lower legs. Right upper leg without significant erythema or warmth, and is non- tender. Left upper leg with palpable veins with mild tenderness to palpation, no lymphadenitis noted, no significant erythema) Neurologic/Psychiatric: alert, normal mood/affect, oriented x 3 Skin: warm/dry, + pertinent finding (see extremities) (Bárbara Jimenez, GREGORIO) Laboratory Results Last 24 Hours Test 06/20/17 11:50 06/20/17 19:43 06/21/17 07:49 Bedside Lactic Acid Venous 0.66 mmol/L Urine Color ORANGE Urine Appearance CLEAR Urine pH 6.5 Urine Specific [place] 1.014 Urine Protein NEG Urine Glucose (UA) NEG Urine Ketones NEG Urine Occult Blood NEG Urine Nitrite NEG Urine Bilirubin NEG Urine Urobilinogen NEG Urine Leukocyte Esterase NEG White Blood Count 5.00 K/uL Red Blood Count 4.67 M/uL Hemoglobin 14.5 g/dL Hematocrit 43.6 % Mean Corpuscular Volume 93.4 fL Mean Corpuscular Hemoglobin 31.0 pg Mean Corpuscular Hemoglobin Concent 33.3 g/dl Platelet Count 163 K/uL Mean Platelet Volume 9.7 fL Neutrophils (%) (Auto) 79.8 % Lymphocytes (%) (Auto) 11.8 % Monocytes (%) (Auto) 7.0 % Eosinophils (%) (Auto) 0.4 % Basophils (%) (Auto) 0.8 % Neutrophils # (Auto) 3.99 K/uL Lymphocytes # (Auto) 0.59 K/uL Monocytes # (Auto) 0.35 K/uL Eosinophils # (Auto) 0.02 K/uL Basophils # (Auto) 0.04 K/uL RDW Standard Deviation 52.8 fL RDW Coefficient of Variation 15.5 % Immature Granulocyte % (Auto) 0.2 % Immature Granulocyte # (Auto) 0.01 K/uL Prothrombin Time 10.3 SECONDS Prothromb Time International Ratio 1.0 Sodium Level 139 mmol/L Potassium Level 4.0 mmol/L Chloride Level 112 mmol/L Carbon Dioxide Level 20 mmol/L Anion Gap 8.0 mmol/L Blood Urea Nitrogen 7 mg/dl Creatinine 0.70 mg/dl Est Creatinine Clear Calc Drug Dose 158.0 ml/min Estimated GFR () 134.0 Estimated GFR (Non- 115.6 BUN/Creatinine Ratio 9.2 Random Glucose 105 mg/dl Calcium Level 8.8 mg/dl (Bárbara Jimenez ., PA-C) Assessment and Plan BILATERAL LE CELLULITIS/CHRONIC LE WOUNDS Pt with some improvement. Is afebrile, vitals stable Wound culture gram stain: mod WBCs, gram + cocci, few gram neg bacilli. Pending culture. No leukocytosis. -Continue vancomycin IV and Zosyn -ID consulted and continue current antibiotic regimen -Wound consult pending further recommendations -Pt requesting possible placement to rehab at [place] for further wound management COPD Pt with wheezing on exam today. Reports this is his "normal" chronic state. Pt continues to deny nebs at this time. CXR showed mild interstitial thickening, atypical pneumonitis vs reactive airway disease. Pt already on vancomycin and zosyn for his LE cellulitis. O2 sat 94% on RA. No accessory muscle use. -continue albuterol inhaler QID prn wheezing/SOB -continue prednisone -restart home Advair and Spiriva -nicotine patch -recommend smoking cessation DVT Hx hypercoagulable state, Chronic DVT hx, recurrent DVT uncertain of initial dx. Pt had stopped Coumadin secondary to being unable to get to Coumadin clinic secondary to transportation issues. Pt was placed on Lovenox and Coumadin restarted. PT: 10.3, INR: 1 today. -case management consult to consider if Xarelto may be option for pt H/O ETOH abuse No ETOH use reported since last week. no ETOH withdrawal symptoms at this time. -continue folate and thiamine. GERD -continue PPI CHRONIC LEG PAIN Pt on chronic narcotics -continue home Percocet HYPOKALEMIA Pt was given po K yesterday. Repeat K today was 4.0 DVT PROPHYLAXIS Pt on Lovenox and Coumadin Full Code (Bárbara Jimenez, CHERRIC) ADDENDUM: This is a 42 year old male with peripheral vascular disease, hypercoagulable state, multiple DVTs in the LLE on anticoagulation presents with cellulitis of the LLE. he is feeling okay, wants to go to [facility] after being discharged for rehab/wound care. Plan is to continue IV Lovenox for now. Get records from the [facility] registered nurse. Possibly switch from Coumadin to Xarelto pending above results Continue IV abx. for now, wound care consulted. Continue Prednisone for possible COPD exacerbation x 5days. (Jeromy Melgar, DO)
--- NOTE | 2017-06-21 11:42 | Progress Note ---
Subjective Date of Service: Jun 21, 2017. Subjective wound culture with E. coli, final pending. remains on abx, afebrile. no overnight events. Problem List Medical Problems: (1) DVT of lower extremity, bilateral Status: Acute Objective Vital Signs Date Time Temp Pulse Resp B/P (MAP) Pulse Ox O2 Delivery O2 Flow Rate FiO2 06/21/17 09:52 Room Air 06/21/17 07:23 36.6 63 18 104/64 (77) 94 Room Air 06/21/17 00:00 Room Air 06/20/17 23:36 36.4 78 20 143/75 (97) 96 Room Air 06/20/17 17:03 62 18 113/68 (83) 97 Room Air 06/20/17 16:27 36.6 71 20 121/73 (89) 97 Room Air 06/20/17 16:03 80 16 97 Room Air 06/20/17 16:00 Room Air 06/20/17 15:37 36.5 76 22 150/77 97 Room Air 06/20/17 14:42 36.5 76 22 150/77 (101) 97 Room Air 06/20/17 13:26 88 18 137/81 96 Room Air 06/20/17 11:42 71 18 131/73 98 Laboratory Results Item Value Date Time Gram Stain - Final Resulted 06/20/17 1611 Drainage - Surface Leg Right Lower Last 24 Hours Test 06/20/17 11:50 06/20/17 19:43 06/21/17 07:49 Bedside Lactic Acid Venous 0.66 mmol/L Urine Color ORANGE Urine Appearance CLEAR Urine pH 6.5 Urine Specific [place] 1.014 Urine Protein NEG Urine Glucose (UA) NEG Urine Ketones NEG Urine Occult Blood NEG Urine Nitrite NEG Urine Bilirubin NEG Urine Urobilinogen NEG Urine Leukocyte Esterase NEG White Blood Count 5.00 K/uL Red Blood Count 4.67 M/uL Hemoglobin 14.5 g/dL Hematocrit 43.6 % Mean Corpuscular Volume 93.4 fL Mean Corpuscular Hemoglobin 31.0 pg Mean Corpuscular Hemoglobin Concent 33.3 g/dl Platelet Count 163 K/uL Mean Platelet Volume 9.7 fL Neutrophils (%) (Auto) 79.8 % Lymphocytes (%) (Auto) 11.8 % Monocytes (%) (Auto) 7.0 % Eosinophils (%) (Auto) 0.4 % Basophils (%) (Auto) 0.8 % Neutrophils # (Auto) 3.99 K/uL Lymphocytes # (Auto) 0.59 K/uL Monocytes # (Auto) 0.35 K/uL Eosinophils # (Auto) 0.02 K/uL Basophils # (Auto) 0.04 K/uL RDW Standard Deviation 52.8 fL RDW Coefficient of Variation 15.5 % Immature Granulocyte % (Auto) 0.2 % Immature Granulocyte # (Auto) 0.01 K/uL Prothrombin Time 10.3 SECONDS Prothromb Time International Ratio 1.0 Sodium Level 139 mmol/L Potassium Level 4.0 mmol/L Chloride Level 112 mmol/L Carbon Dioxide Level 20 mmol/L Anion Gap 8.0 mmol/L Blood Urea Nitrogen 7 mg/dl Creatinine 0.70 mg/dl Est Creatinine Clear Calc Drug Dose 158.0 ml/min Estimated GFR () 134.0 Estimated GFR (Non- 115.6 BUN/Creatinine Ratio 9.2 Random Glucose 105 mg/dl Calcium Level 8.8 mg/dl Assessment and Plan (1) Cellulitis Assessment & Plan: continue abx, await final culture
[2017-06-21] MEDS: FLUTICASONE/SALMETEROL 250/50 (ADVAIR) 14 PUFF/1 INHALER INH SCH ×2 (12:56→20:40)
[2017-06-21] MEDS: TIOTROPIUM BROMIDE 5 PUFF/90 MCG INH INH SCH (12:58)
[2017-06-21] MEDS ORDERED: NURSING VERBAL MED ORDER ONE (14:45)
[2017-06-21 15:30] VITALS: BP 128/79; PULSE 62; TEMP 36.7; O2SAT 96
[2017-06-21] MEDS: WARFARIN SOD 5 MG TAB PO SCH (16:29)
[2017-06-21] MEDS: BOOST VANILLA PO SCH ×2 (17:00)
[2017-06-21] MEDS: RIVAROXABAN TAB 15 MG TAB PO SCH (18:45)
[2017-06-21] MEDS: TRAZODONE HCL 100 MG TAB PO SCH (20:42)
[2017-06-21 23:45] VITALS: BP 112/70; PULSE 60; TEMP 36.7; O2SAT 96
[2017-06-22] MEDS: PIPERACILL/TAZOBAC IV 3.375 GM in DEXTROSE 5% 100ML IV SCH (05:54)
[2017-06-22] MEDS: OXYCODONE/ACETAMINOPHEN 5-325 TAB PO PRN ×3 (05:55→21:00)
[2017-06-22] MEDS ORDERED: VANCOMYCIN TROUGH ONE (07:30)
[2017-06-22 07:40] VITALS: BP 149/73; PULSE 69; TEMP 36.9; O2SAT 92
[2017-06-22 07:49] LABS: HEMATOCRIT 42.8 % (42-52); MEAN CELL VOLUME 94.9 fL (80-100); MEAN CORPUSCULAR HGB CONC 32.7 g/dl (32-36); MEAN PLATELET VOLUME 10.1 fL (7.4-10.4); PLATELET COUNT 153 K/uL (130-400); RED BLOOD COUNT 4.51 M/uL (4.7-6.1); WHITE BLOOD COUNT 4.75 K/uL (4.8-10.8)
[2017-06-22 08:06] LABS: INR 1.1 (0.9-1.1); PROTHROMBIN TIME (PATIENT) 11.3 SECONDS (9.0-12.0)
[2017-06-22] MEDS: NICOTINE 21 MG/24 HR TDSY TD SCH (08:52)
[2017-06-22] MEDS: FLUTICASONE/SALMETEROL 250/50 (ADVAIR) 14 PUFF/1 INHALER INH SCH ×2 (08:52→21:00)
[2017-06-22] MEDS: RIVAROXABAN TAB 15 MG TAB PO SCH ×2 (08:52→21:01)
[2017-06-22] MEDS: THIAMINE HCL 100 MG TAB PO SCH (08:53)
[2017-06-22] MEDS: PANTOprazole SOD 40 MG TAB PO SCH ×2 (08:53→21:01)
[2017-06-22] MEDS: DOCUSATE SODIUM 100 MG CAP PO SCH ×2 (08:55→21:00)
[2017-06-22] MEDS: TIOTROPIUM BROMIDE 5 PUFF/90 MCG INH INH SCH (08:56)
[2017-06-22] MEDS: BOOST VANILLA PO SCH ×6 (09:00→17:00)
[2017-06-22] MEDS: VANCOMYCIN INJ 1,250 MG in SODIUM CHLORIDE 0.9% 250ML 250 ML IV SCH ×2 (09:15→20:59)
--- NOTE | 2017-06-22 10:05 | Hospitalist Progress Note ---
Hospitalist Progress Note Date of Service Jun 22, 2017. (Bárbara Jimenez, CHERRIC) Subjective Pt seen and evaluated. Pt is 42 y/o M with PMHx peripheral vascular disease, hypercoagulable state, multiple DVTs, on chronic anticoagulation his hospitalized secondary to cellulitis of the LLE. Pt states left leg is feeling ok today and no worsening, redness resolved. Still with some pain to upper inner thigh aggravated with palpation. reports ROM of left leg less painful today. Pt has been receiving Levaquin and Zosyn IV. On chronic Percocet which does help decrease pain. Pt was receiving Lovenox and Coumadin, but that was stopped and Xarelto was started last evening. Pt wound culture E.coli Intermediate to zosyn, resistant to unasyn, bactrim, levaquin, cipro, cefazolin. Culture also pos staph - sensitivities pending. Preliminary blood cultures show no growth. Pt afebrile. Wound care saw pt yesterday for chronic LE wounds and dressings were applied. Pt reports he would like his albuterol inhaler to use for intermittent wheezing. Pt doesn't feel wheezing worse. denies SOB. Pt currently on prednisone for suspected COPD flare. Denies fever/ chills, diaphoresis, N/V/D, SCOTT, dizziness, CP, orthopnea, palpitations, choking , leg red streaking. (Bárbara Jimenez ., CHERRIC) Objective Vital Signs Date Time Temp Pulse Resp B/P (MAP) Pulse Ox O2 Delivery O2 Flow Rate FiO2 06/22/17 07:40 36.9 69 18 149/73 (98) 92 Room Air 06/22/17 00:00 Room Air 06/21/17 23:45 36.7 60 18 112/70 (84) 96 Room Air 06/21/17 16:00 Room Air 06/21/17 15:30 36.7 62 16 128/79 (95) 96 Room Air 06/21/17 09:52 Room Air (Bárbara Jimenez ., CHERRIC) Physical Exam General Appearance: WD/WN, no apparent distress Eyes: normal inspection ENT: hearing grossly normal, pharynx normal Neck: supple, trachea midline Respiratory/Chest: chest non-tender, no respiratory distress, no accessory muscle use, + wheezing (scattered throughout) Cardiovascular: regular rate, rhythm, no murmur Extremities: + pertinent finding (distal pulses intact bilaterally+ pertinent finding (bilateral lower legs with dressings in place from wound care. Right upper leg without significant erythema or warmth, and is non-tender. Left upper leg with palpable veins medial upper thigh with mild tenderness to palpation without erythema, no erythema left upper leg noted)) Neurologic/Psychiatric: alert, normal mood/affect, oriented x 3 Skin: warm/dry, + pertinent finding (see extremities above) (Bárbara Jimenez ., CHERRIC) Laboratory Results Last 24 Hours Test 06/22/17 07:32 White Blood Count 4.75 K/uL Red Blood Count 4.51 M/uL Hemoglobin 14.0 g/dL Hematocrit 42.8 % Mean Corpuscular Volume 94.9 fL Mean Corpuscular Hemoglobin 31.0 pg Mean Corpuscular Hemoglobin Concent 32.7 g/dl RDW Standard Deviation 55.5 fL RDW Coefficient of Variation 15.8 % Platelet Count 153 K/uL Mean Platelet Volume 10.1 fL Prothrombin Time 11.3 SECONDS Prothromb Time International Ratio 1.1 Vancomycin Level Trough 21.8 mcg/ml (Bárbara Jimenez ., PA-C) Assessment and Plan BILATERAL LE CELLULITIS/CHRONIC LE WOUNDS Pt with improvement. Is afebrile, vitals stable wound culture E.coli Intermediate to zosyn, resistant to unasyn, bactrim, levaquin, cipro, cefazolin. Culture also pos staph species - sensitivities pending. Preliminary blood cultures show no growth -ID consulted and appreciate recommendation for out pt antibiotic regimen -case management inquired [facility] and instructed bed would be available today, and awaiting authorization COPD EXACERBATION Pt with continued wheezing on exam today. No respiratory distress or accessory muscle use. -continue albuterol inhaler QID prn wheezing/SOB. Discussed with pt he can ask nursing staff for this when he needs it. Pt also aware he has nebs ordered prn also but he prefers inhaler. -continue prednisone for total of 5 day course -continue Advair and Spiriva -nicotine patch -recommend smoking cessation DVT Hx hypercoagulable state, Chronic DVT hx, recurrent DVT -pt eligible for xarelto with his insurance. He was transitioned to xarelto last night and coumadin, lovenox stopped H/O ETOH abuse No ETOH use reported since last week. no ETOH withdrawal symptoms at this time. -continue folate and thiamine. GERD -continue PPI CHRONIC LEG PAIN Pt on chronic narcotics -continue home Percocet (Bárbara Jimenez, GREGORIO) ADDENDUM: Saw/examined the patient in room 458 He's doing okay today; tolerated Xarelto last evening will continue Xarelto 15mg BID x21 days and then switch to 20mg daily Outpatient Hem/onc follow-up Cultures growing E. coli in the wound - resistant to PCN and Quinolones will await recommendations per ID for outpatient regimen Only oral option seems to be Ceftin; patient prefers no IV on discharge Discharge to [place] pending - Xarelto, antibiotic and possibly pain medications on discharge (will limit narcotics due abuse history) (Jeromy Melgar, DO)
--- NOTE | 2017-06-22 14:02 | Progress Note ---
Subjective Date of Service: Jun 22, 2017. Subjective pt remains on vanco and zosyn, culture with staph species, final pending and E. coli, only I to zosyn. afebrile. No overnight events. remaining culture negative. Problem List Medical Problems: (1) DVT of lower extremity, bilateral Status: Acute Objective Vital Signs Date Time Temp Pulse Resp B/P (MAP) Pulse Ox O2 Delivery O2 Flow Rate FiO2 06/22/17 11:37 Room Air 06/22/17 07:40 36.9 69 18 149/73 (98) 92 Room Air 06/22/17 00:00 Room Air 06/21/17 23:45 36.7 60 18 112/70 (84) 96 Room Air 06/21/17 16:00 Room Air 06/21/17 15:30 36.7 62 16 128/79 (95) 96 Room Air Laboratory Results Last 24 Hours Test 06/22/17 07:32 White Blood Count 4.75 K/uL Red Blood Count 4.51 M/uL Hemoglobin 14.0 g/dL Hematocrit 42.8 % Mean Corpuscular Volume 94.9 fL Mean Corpuscular Hemoglobin 31.0 pg Mean Corpuscular Hemoglobin Concent 32.7 g/dl RDW Standard Deviation 55.5 fL RDW Coefficient of Variation 15.8 % Platelet Count 153 K/uL Mean Platelet Volume 10.1 fL Prothrombin Time 11.3 SECONDS Prothromb Time International Ratio 1.1 Vancomycin Level Trough 21.8 mcg/ml Assessment and Plan (1) Cellulitis Assessment & Plan: will change from zoysn to ctx. continue vanco pending final ID sensitivities for staph.
[2017-06-22 15:02] VITALS: BP 145/89; PULSE 60; TEMP 36.7; O2SAT 98
--- NOTE | 2017-06-22 15:55 | Pharmacy Progress Note ---
Pharmacy Abx Dose Short Note Date of Service Jun 22, 2017. Assessment & Plan Assessment 42 year old male receiving Vancomycin and Rocephin for treatment of severe cellulitis with history of pseudomonas and MRSA. Day # 3 of antimicrobial therapy. Goal vanc trough 15-20 mcg/mL. Item Value Date Time Vancomycin Level Trough 21.8 mcg/ml 06/22/17 0732 Vanco trough level of 21.8 mcg/mL is slightly supra therapeutic. There is concern for potential of drug cumulation as patient is obese. BMI=32 Will continue 12.5mg/kg, change dosing interval and re-check trough. Renal function appears to be stable. Awaiting sensitivity results for staph species grown in 06/20 wound drainage culture. Blood cultures from 06/20 continue to have no growth to date. Plan Vancomycin * Vancomycin 1.25gm iv q 12 hours. * Trough level ordered for 06/24 @ 0730 Pharmacy will continue to follow and will adjust dose/frequency as necessary. Thank you.
[2017-06-22] MEDS ORDERED: CEFTRIAXONE SOD INJ 2 GM in DEXTROSE 5% ADD-VANTAGE 50ML 50 ML IV SCH (16:00)
[2017-06-22] MEDS: COLLAGENASE OINT 30 GM TUBE EXT SCH (16:19)
[2017-06-22] MEDS: TRAZODONE HCL 100 MG TAB PO SCH (21:02)
[2017-06-23 00:06] VITALS: BP 132/65; PULSE 50; TEMP 36.6; O2SAT 96
[2017-06-23 07:12] VITALS: BP 157/79; PULSE 61; TEMP 36.7; O2SAT 92
[2017-06-23 07:13] VITALS: BP 127/79; PULSE 72; TEMP 36.7; O2SAT 98
[2017-06-23 07:24] LABS: HEMATOCRIT 44.1 % (42-52); MEAN CORPUSCULAR HEMOGLOBIN 31.3 pg (25-34); MEAN CORPUSCULAR HGB CONC 32.9 g/dl (32-36); MEAN PLATELET VOLUME 9.9 fL (7.4-10.4); PLATELET COUNT 175 K/uL (130-400); RED BLOOD COUNT 4.64 M/uL (4.7-6.1); WHITE BLOOD COUNT 5.17 K/uL (4.8-10.8)
[2017-06-23 07:33] LABS: INR 1.1 (0.9-1.1); PROTHROMBIN TIME (PATIENT) 11.4 SECONDS (9.0-12.0)
[2017-06-23 07:46] LABS: BUN/CREATININE RATIO 13.4 (10-20); CALCIUM 8.6 mg/dl (8.5-10.1); CREATININE 0.77 mg/dl (0.60-1.40); POTASSIUM 3.8 mmol/L (3.5-5.1)
[2017-06-23] MEDS: COLLAGENASE OINT 30 GM TUBE EXT SCH (08:00)
[2017-06-23] MEDS: NICOTINE 21 MG/24 HR TDSY TD SCH ×2 (08:00→08:13)
[2017-06-23] MEDS: FLUTICASONE/SALMETEROL 250/50 (ADVAIR) 14 PUFF/1 INHALER INH SCH (08:11)
[2017-06-23] MEDS: PANTOprazole SOD 40 MG TAB PO SCH (08:12)
[2017-06-23] MEDS: DOCUSATE SODIUM 100 MG CAP PO SCH (08:12)
[2017-06-23] MEDS: TIOTROPIUM BROMIDE 5 PUFF/90 MCG INH INH SCH (08:12)
[2017-06-23] MEDS: RIVAROXABAN TAB 15 MG TAB PO SCH (08:12)
[2017-06-23] MEDS: THIAMINE HCL 100 MG TAB PO SCH (08:13)
[2017-06-23] MEDS: BOOST VANILLA PO SCH ×4 (08:14→12:00)
[2017-06-23] MEDS: OXYCODONE/ACETAMINOPHEN 5-325 TAB PO PRN (08:19)
[2017-06-23] MEDS: VANCOMYCIN INJ 1,250 MG in SODIUM CHLORIDE 0.9% 250ML 250 ML IV SCH (08:29)
--- NOTE | 2017-06-23 09:29 | Hospitalist Progress Note ---
Hospitalist Progress Note Date of Service Jun 23, 2017. (Bárbara Jimenez PA-C) Subjective Pt seen and examined. Pt states left leg is feeling better today. Only tender with palpation. No pain with ROM or walking. No redness noted. Getting wound dressing changes as per wound nurse recommendations. Pt states having less wheezing and doesn't feel SOB or any CP. Denies fever/chills, N/V, drainage from leg, red streaking. (Bárbara Jimenez PA-C) Objective Vital Signs Date Time Temp Pulse Resp B/P (MAP) Pulse Ox O2 Delivery O2 Flow Rate FiO2 06/23/17 07:13 36.7 72 16 127/79 (95) 98 Room Air 06/23/17 07:12 36.7 61 16 157/79 (105) 92 06/23/17 00:06 36.6 50 18 132/65 (87) 96 Room Air 06/23/17 00:00 Room Air 06/22/17 16:00 Room Air 06/22/17 15:02 36.7 60 18 145/89 (107) 98 Room Air 06/22/17 11:37 Room Air (Bárbara Jimenez, GREGORIO) Physical Exam General Appearance: WD/WN, no apparent distress Neck: supple, trachea midline Respiratory/Chest: chest non-tender, no respiratory distress, no accessory muscle use, + wheezing (Mild expiratory wheezing, (decreased wheezing from previous)) Cardiovascular: regular rate, rhythm Abdomen: normal bowel sounds, non tender, soft Extremities: normal range of motion, normal capillary refill, + pertinent finding (distal pulses intact. wound dressings in place to bilateral lower legs. left upper leg without erythema or edema, no significant warmth, no red streaking or open wounds. slight tenderness to upper medial thigh.) Neurologic/Psychiatric: alert, normal mood/affect, oriented x 3 (Bárbara Jimenez PA-C) Laboratory Results Last 24 Hours Test 06/23/17 06:57 White Blood Count 5.17 K/uL Red Blood Count 4.64 M/uL Hemoglobin 14.5 g/dL Hematocrit 44.1 % Mean Corpuscular Volume 95.0 fL Mean Corpuscular Hemoglobin 31.3 pg Mean Corpuscular Hemoglobin Concent 32.9 g/dl RDW Standard Deviation 53.8 fL RDW Coefficient of Variation 15.4 % Platelet Count 175 K/uL Mean Platelet Volume 9.9 fL Prothrombin Time 11.4 SECONDS Prothromb Time International Ratio 1.1 Sodium Level 139 mmol/L Potassium Level 3.8 mmol/L Chloride Level 108 mmol/L Carbon Dioxide Level 24 mmol/L Anion Gap 6.0 mmol/L Blood Urea Nitrogen 10 mg/dl Creatinine 0.77 mg/dl Est Creatinine Clear Calc Drug Dose 143.6 ml/min Estimated GFR () 128.8 Estimated GFR (Non- 111.1 BUN/Creatinine Ratio 13.4 Random Glucose 119 mg/dl Calcium Level 8.6 mg/dl (Bárbara Jimeenz PASundarC) Assessment and Plan BILATERAL LE CELLULITIS/CHRONIC LE WOUNDS Pt with much improvement. Is afebrile, vitals stable. Pt on Vancomycin and Rocephin IV wound culture E.coli sensitive to cefepime, ceftriaxone, cefoxitin, cefotaxime, ertapenem, imipenem. Culture also MRSA - sensitive to dapto, rifampin, tetracycline, bactrim, vanco. Preliminary blood cultures show no growth -ID consulted and appreciate recommendation for out pt antibiotic regimen -case management inquired [facility] and there is a bed available. Plan on d/c there today COPD EXACERBATION Pt with less wheezing on exam today. No respiratory distress -continue albuterol inhaler QID prn wheezing/SOB. -continue prednisone for total of 5 day course -continue Advair and Spiriva -nicotine patch -recommend smoking cessation DVT Hx hypercoagulable state, Chronic DVT hx, recurrent DVT -pt transitioned to xarelto H/O ETOH abuse -continue folate and thiamine. GERD -continue PPI CHRONIC LEG PAIN Pt on chronic narcotics -continue home Percocet -PDMP accessed. Pt noted to receive meds from different prescribers. Will plan on d/c pt with 3 day course Rx to avoid withdrawal symptoms (Bárbara Jimenez PASundarC) ADDENDUM: Saw/examined the patient in room 458 Doing well, no problems to note; eager to go home Plan is to place PICC line, consent obtained Rocephin + Vanco for 21 days total due to the MRSA and E. coli organisms from the wound Anticoagulation plan is to continue Xarelto - 15mg BID for a total of 21 days, and then switch to 20mg daily (Jeromy Melgar, DO)
[2017-06-23 10:07] VITALS: BP 127/79; PULSE 72; TEMP 36.7; O2SAT 98
--- NOTE | 2017-06-23 10:15 | Progress Note ---
Subjective Date of Service: Jun 23, 2017. Subjective Pt evaluation today including: conversation w/ patient, physical exam, chart review, lab review pt seen in followup, feeling better, states he will be d/c to rehab later today. spoke with primary no coverage for IV dapto. Is currently receiving vanco and ctx. He denies f/c, no drainage or pain in leg. tolerating abx, no abd pain, n/v/d. All remaining ros reviewed and are negative. Problem List Medical Problems: (1) DVT of lower extremity, bilateral Status: Acute Objective Vital Signs Date Time Temp Pulse Resp B/P (MAP) Pulse Ox O2 Delivery O2 Flow Rate FiO2 06/23/17 10:07 36.7 72 16 98 Room Air 06/23/17 09:26 Room Air 06/23/17 07:13 36.7 72 16 127/79 (95) 98 Room Air 06/23/17 07:12 36.7 61 16 157/79 (105) 92 06/23/17 00:06 36.6 50 18 132/65 (87) 96 Room Air 06/23/17 00:00 Room Air 06/22/17 16:00 Room Air 06/22/17 15:02 36.7 60 18 145/89 (107) 98 Room Air 06/22/17 11:37 Room Air Physical Exam General Appearance: WD/WN, no apparent distress Eyes: normal inspection, EOMI Neck: supple Respiratory/Chest: lungs clear, normal breath sounds, no respiratory distress Cardiovascular: regular rate, rhythm, no edema Abdomen: non tender, soft Extremities: non-tender, no pedal edema Neurologic/Psychiatric: alert, oriented x 3 Skin: normal color Comments: le dressing c//i Laboratory Results Item Value Date Time Gram Stain - Final Resulted 06/20/17 1611 Drainage - Surface Leg Right Lower Gram Stain - Final Resulted 06/20/17 1611 Drainage - Surface Leg Right Lower Blood Culture - Preliminary Resulted 06/20/17 0855 Blood NO GROWTH TO DATE. Blood Culture - Preliminary Resulted 06/20/17 0915 Blood NO GROWTH TO DATE. Last 24 Hours Test 06/23/17 06:57 White Blood Count 5.17 K/uL Red Blood Count 4.64 M/uL Hemoglobin 14.5 g/dL Hematocrit 44.1 % Mean Corpuscular Volume 95.0 fL Mean Corpuscular Hemoglobin 31.3 pg Mean Corpuscular Hemoglobin Concent 32.9 g/dl RDW Standard Deviation 53.8 fL RDW Coefficient of Variation 15.4 % Platelet Count 175 K/uL Mean Platelet Volume 9.9 fL Prothrombin Time 11.4 SECONDS Prothromb Time International Ratio 1.1 Sodium Level 139 mmol/L Potassium Level 3.8 mmol/L Chloride Level 108 mmol/L Carbon Dioxide Level 24 mmol/L Anion Gap 6.0 mmol/L Blood Urea Nitrogen 10 mg/dl Creatinine 0.77 mg/dl Est Creatinine Clear Calc Drug Dose 143.6 ml/min Estimated GFR () 128.8 Estimated GFR (Non- 111.1 BUN/Creatinine Ratio 13.4 Random Glucose 119 mg/dl Calcium Level 8.6 mg/dl Assessment and Plan (1) Cellulitis Assessment & Plan: would continue rocephin at current dose. will need picc line , can continue with vanco as well. If insurance coverage a concern, could continue roecphin and change vanco to po doxy. Would give 21 days. will need weekly cbc,cmp, esr, and vanco trough if remains on vanco - maintain 15-20. Ok for d/c when otherwise stable.
[2017-06-23] MEDS ORDERED: XRL15 PO (12:12)
[2017-06-23] MEDS ORDERED: VANC1INJ94 IV (12:12)
[2017-06-23] MEDS ORDERED: CEFT1INJ57 IV (12:12)
[2017-06-23] MEDS ORDERED: PRD20 PO (12:12)
[2017-06-23] MEDS ORDERED: OXYC-57 PO (12:12)
--- NOTE | 2017-06-23 12:22 | Discharge Instructions ---
Discharge Instructions Date of Service Jun 23, 2017. Admission Reason for Admission: Cellulitis Discharge Discharge Diagnosis / Problem: Cellulitis Discharge Goals Goal(s): Decrease discomfort, Improve function Activity Recommendations Activity Limitations: resume your previous activity Shower/Bathe: no limitations . Instructions / Follow-Up Instructions / Follow-Up Follow up with provider at [facility] within 24 hours of admission. Patient is going to receive IV Rocephin and IV vancomycin for a total of 21 days with weekly labs. For Hx DVT pt was changed from Coumadin to Xarelto. Wound care instructions: CLEAN AND DRY WOUNDS. APPLY SANTYL OINTMENT (NICKEL THICK TO OPEN LEG WOUNDS), SECURE WITH GAUZE, AND A SINGLE LAYER TUBIGRIP. CHANGE DAILY. Current Hospital Diet Patient's current hospital diet: Regular Diet Discharge Diet Recommended Diet: Regular Diet Pending Studies Studies pending at discharge: no Medical Emergencies . Who to Call and When: Medical Emergencies: If at any time you feel your situation is an emergency, please call 911 immediately. . Non-Emergent Contact Non-Emergency issues call your: Primary Care Provider Call Non-Emergent contact if: you have a fever, wound has increased drainage, wound has increased redness . . "Provider Documentation" section prepared by Bárbara Jimenez. . VTE Core Measure Inpt VTE Proph given/why not?: Enoxaparin (Lovenox)SQ, Warfarin (Coumadin), Other Anticoagulation [place] Drug Monitoring Program Search Results: patient reviewed within database, see additional documentation Drug Monitoring Findings: Pt receiving controlled substances constantly from several different providers.
--- NOTE | 2017-06-23 12:40 | Discharge Summary ---
Discharge Summary Date of Service Jun 23, 2017. Discharge Summary Admission Date: Jun 20, 2017 at 13:29 Discharge Date: Jun 23, 2017 Discharge Disposition: [facility] facility Principal Diagnosis: Cellulitis Bilateral Lower extremities Secondary Diagnoses/Problems: COPD Chronic DVT Hx ETOH abuse GERD Chronic leg pain Procedures: Venous Duplex Bilateral Lower Extremities: IMPRESSION: 1. Bilateral DVT, likely chronic. 2. Enlarged bilateral inguinal lymph nodes CXR: IMPRESSION: Mild interstitial thickening. This may represent an atypical pneumonitis versus reactive airways disease. Consultations: Dr Acevedo, Infectious Disease Pending Studies/Follow-Up: Obtain weekly CBC, CMP, ESR, Vancomycin trough Medication Reconciliation New Medications: Ceftriaxone Sod (Rocephin) 1 Gm Inj 2 GM IV DAILY for 20 Days, VIAL Give at 1600 Oxycodone/Acetaminophen 5MG/325MG (Percocet 5MG/325MG) Tab 1 TABLET PO Q8 PRN for Pain, #9 TAB Vancomycin HCl in Sodium Chlor (VANCOMYCIN in NSS) 1 Inj Inj 1250 MG IV Q12, #36 DOSE Give at 8am and 8pm Prednisone (Prednisone) 20 Mg Tab 40 MG PO DAILY, #1 TAB Rivaroxaban (Xarelto) 15 Mg Tab 15 MG PO BID, #38 TAB Continued Medications: Albuterol Hfa (Ventolin Hfa) 200 Puffs/30268 Mcg Aers 2 PUFFS INH Q6H PRN for SOB/Wheezing, #1 INHALER Docusate Sodium (Colace) 100 Mg Cap 100 MG PO BID, CAP Fluticasone Prop/Salmeterol (Advair Diskus 250/50 60 Dose) 1 Ea Aerp 1 PUFF INH BID, INHALER Folic Acid (Folic Acid) 1 Mg Tab 1 MG PO DAILY, TAB Omeprazole (Prilosec) 20 Mg Capcr 20 MG PO BID, CAP Thiamine HCl (Vitamin B-1) 100 Mg Tab 100 MG PO DAILY, TAB Tiotropium [place] (Spiriva Handihaler) 30 Puff/540 Mcg Aerp 1 CAP INH DAILY for 30 Days, #30 CAP 3 Refills Trazodone Hcl (Trazodone) 100 Mg Tab 150 MG PO DAILY, TAB Discontinued Medications: Oxycodone/Acetaminophen 5MG/325MG (Percocet 5MG/325MG) Tab 2 TABLETS PO Q6H PRN for Pain, TAB PAIN Admission Information HPI (per Admitting provider): 42 yo M with h/o severe venous stasis, DVT and PE on chronic warfarin anticoagulation who presents with worsening infectious symptoms in his groin and upper legs L>R. He has had multiple hospital admissions for cellulitis at [facility], the most recent was 06/06-06/09/17. During this admission , he was started on IV Vancomycin was discharged with clindamycin which was complete on 06/14. The patient states he doesn't think the clindamycin made any improvement at home. He recently states that he stopped his coumadin 2/2 losing his license and not being able to get his INR checked. (Of note, he reports losing his license 2/2 DUI in December but states that although he was a heavy drinker in the past, he doesn't drink more than once weekly now.) He was also hospitalized in 04/13 at the same facility for this issues and spent 6 weeks in a rehab facility. He was home for two weeks prior to his Oct admission. He lives at home alone with his mom as closest family in town. He still smokes 0.5 ppd. He denies any SOB or coughing or wheezing, but when I informed him that I heard wheezing on the exam, he said he knew that "because I smoke." He has been treating his wounds with silvadene at home. He reports some worsening drainage that is not pus but states that he has a h/o MRSA and was told to always consider any drainage to be a MRSA infection. He reports some fevers and chills last week. He reports good PO intake and denies any chest pain, headaches, congestion, abdominal pain, nausea, vomiting, diarrhea, UTI symptoms or difficulties with ambulation. Physical Exam (per Admitting): General Appearance: WD/WN, no apparent distress Head: normocephalic, atraumatic Eyes: normal inspection, sclerae normal ENT: hearing grossly normal Neck: trachea midline Respiratory/Chest: + crackles, + wheezing (throughout all lung johnson) Cardiovascular: regular rate, rhythm, no JVD, no murmur, normal peripheral pulses Abdomen/GI: normal bowel sounds, non tender, soft Extremities/Musculoskelatal: + inflammation, + pedal edema, + pertinent finding (redness all way up legs bilaterally, warmth to upper thighs over erythema, chronic darkened skin with healed ulcerations distally and open draining wounds on anterior lower legs, malodorous.) 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 ) Lymphatic: no adenopathy Hospital Course BILATERAL LE CELLULITIS/CHRONIC LE WOUNDS Pt initially placed on Vancomycin and Zosyn IV, however E. coli was intermediate resistant to Zosyn so was changed to Rocephin IV on 06/22/17. ID saw and evaluated pt and recommended treatment with IV vanco and IV Rocephin for total of 21 days. Will need weekly CBC, CMP, ESR, Vanco trough which should between 15-20. PICC line placed on 06/23/17. COPD EXACERBATION Pt was started on 5 day course of prednisone. Will receive last dose on . Pt to continue albuterol inhaler QID prn wheezing/SOB, continue Advair and Spiriva DVT Hx hypercoagulable state, Chronic DVT hx, recurrent DVT -pt transitioned to Xarelto secondary to transportation concerns for INR checks. Pt to receive Xarelto 15mg BID x 21 days with transition to 20mg once daily H/O ETOH abuse Continue folate and thiamine. GERD Continue PPI CHRONIC LEG PAIN Pt on chronic narcotics. Would recommend pain management PDMP accessed. Pt noted to receive meds from different prescribers. Will plan on d/c pt with 3 day course Rx to avoid withdrawal symptoms Total time spent on discharge = This includes examination of the patient, discharge planning, medication reconciliation, and communication with other providers. Discharge Instructions Discharge Instructions Date of Service Jun 23, 2017. Admission Reason for Admission: Cellulitis Discharge Discharge Diagnosis / Problem: Cellulitis Discharge Goals Goal(s): Decrease discomfort, Improve function Activity Recommendations Activity Limitations: resume your previous activity Shower/Bathe: no limitations . Instructions / Follow-Up Instructions / Follow-Up Follow up with provider at [facility] within 24 hours of admission. Patient is going to receive IV Rocephin and IV vancomycin for a total of 21 days with weekly labs. For Hx DVT pt was changed from Coumadin to Xarelto. Wound care instructions: CLEAN AND DRY WOUNDS. APPLY SANTYL OINTMENT (NICKEL THICK TO OPEN LEG WOUNDS), SECURE WITH GAUZE, AND A SINGLE LAYER TUBIGRIP. CHANGE DAILY. Current Hospital Diet Patient's current hospital diet: Regular Diet Discharge Diet Recommended Diet: Regular Diet Pending Studies Studies pending at discharge: no Medical Emergencies . Who to Call and When: Medical Emergencies: If at any time you feel your situation is an emergency, please call 911 immediately. . Non-Emergent Contact Non-Emergency issues call your: Primary Care Provider Call Non-Emergent contact if: you have a fever, wound has increased drainage, wound has increased redness . . "Provider Documentation" section prepared by Bárbara Jimenez. . VTE Core Measure Inpt VTE Proph given/why not?: Enoxaparin (Lovenox)SQ, Warfarin (Coumadin), Other Anticoagulation PA Drug Monitoring Program Search Results: patient reviewed within database, see additional documentation Drug Monitoring Findings: Pt receiving controlled substances constantly from several different providers.
--- NOTE | 2017-06-23 13:50 | Wound Consultation: Inpatient ---
Wound Consultation Date of Consultation: Jun 21, 2017. Attending Physician: Jeromy Melgar DO Reason for Consultation: Bilateral lower extremity ulcerations History of Present Illness Patient has a long-standing history of ulcerations in both lower extremities having been treated at multiple facilities over the past few years. Patient recently was treated for cellulitis. The patient has a KNOWN HISTORY OF CHRONIC HYPERCOAGULABLE STATE, PERIPHERAL VENOUS INSUFFICIENCY, CHRONIC VENOUS STASIS ULCERATIONS, COPD, CHRONIC DVT'S, ETOH ABUSE, MRSA, NARCOTIC AND TOBACCO ABUSE. PT STATED HE IN THE PAST HE HAD BILATERAL LEG ULCERATIONS THAT HEALED LAST MAY 2016, BUT RE-OPENED IN DECEMBER OF 2016. HE STATED PREVIOUSLY HE USED COMPRESSION WRAPS INCLUDING UNNA BOOTS, AND PROFOR WRAPS BOTH OF WHICH "MADE THE WOUNDS WORSE". MOST RECENTLY HE HAS BEEN TREATED WITH SILVADENE CREAM AND TWO LAYER TUBIGRIP. Patient states that the extremities today have reduced pain. Patient denies any current fever chills or night sweats. Patient denies any chest pain shortness of breath abdominal discomfort nausea or vomiting. Patient denies any other systemic complaints. Family History Hypercoagulability MOTHER Social History Smoking Status: Current Every Day Smoker Smokeless Tobacco Use: No Alcohol Use: heavy Marital Status: single Allergies Coded Allergies: Sulfamethoxazole w/Trimethoprim (Unverified Allergy, Unknown, hives, 06/20) Uncoded Allergies: DUST (Allergy, Unknown, 10/10/02) N (Allergy, Unknown, 10/10/02) NKA (Allergy, Unknown, 10/10/02) PEAS (Allergy, Unknown, 10/10/02) Home Medications Scheduled Ceftriaxone Sod (Rocephin), 2 GM IV DAILY Docusate Sodium (Colace), 100 MG PO BID Fluticasone Prop/Salmeterol (Advair Diskus 250/50 60 Dose), 1 PUFF INH BID Folic Acid (Folic Acid), 1 MG PO DAILY Omeprazole (Prilosec), 20 MG PO BID Prednisone (Prednisone), 40 MG PO DAILY Rivaroxaban (Xarelto), 15 MG PO BID Thiamine HCl (Vitamin B-1), 100 MG PO DAILY Tiotropium [place] (Spiriva Handihaler), 1 CAP INH DAILY Trazodone Hcl (Trazodone), 150 MG PO DAILY Vancomycin HCl in Sodium Chlor (VANCOMYCIN in NSS), 1,250 MG IV Q12 Scheduled PRN Albuterol Hfa (Ventolin Hfa), 2 PUFFS INH Q6H PRN for SOB/Wheezing Oxycodone/Acetaminophen 5MG/325MG (Percocet 5MG/325MG), 1 TABLET PO Q8 PRN for Pain Inpatient Medications Current Inpatient Medications Medications (Trade) Dose Ordered Sig/Ilia Route Start Time Stop Time Status Last Admin Dose Admin Acetaminophen (Tylenol Tab) 650 mg Q4H PRN PO 06/20/17 14:00 07/20/17 13:59 Polyethylene (Miralax Powder Packet) 17 gm DAILY PRN PO 06/20/17 14:00 07/20/17 13:59 Ondansetron HCl (Zofran Inj) 4 mg Q6H PRN IV 06/20/17 14:00 07/20/17 13:59 Vancomycin HCl (Consult) 1 ea UD PRN N/A 06/20/17 14:30 07/20/17 14:29 Prednisone (PredniSONE TAB) 40 mg DAILY PO 06/21/17 08:00 06/25/17 08:59 06/23/17 08:13 40 MG Nicotine (Nicoderm Cq 21MG Patch) 1 patch DAILY TD 06/20/17 14:45 07/20/17 14:44 06/22/17 08:52 1 PATCH Docusate Sodium (coLACE CAP) 100 mg BID PO 06/20/17 21:00 07/20/17 20:59 06/23/17 08:12 100 MG Folic Acid (Folvite Tab) 1 mg DAILY PO 06/21/17 09:00 07/21/17 08:59 06/23/17 08:12 1 MG Oxycodone/ Acetaminophen (Percocet 5-325mg Tab) 2 tab Q6H PRN PO 06/20/17 14:30 07/04/17 14:29 06/23/17 08:19 2 TAB Thiamine HCl (Vitamin B-1 Tab) 100 mg DAILY PO 06/21/17 09:00 07/21/17 08:59 06/23/17 08:13 100 MG Pantoprazole Sodium (Protonix Tab) 40 mg BID PO 06/20/17 21:00 07/20/17 20:59 06/23/17 08:12 40 MG Albuterol/ Ipratropium (Duoneb) 3 ml QIDR PRN INH 06/20/17 20:00 07/20/17 15:59 Albuterol (Ventolin Hfa Inhaler) 2 puffs Q6H PRN INH 06/20/17 16:15 07/20/17 16:14 Trazodone HCl (Desyrel Tab) 150 mg HS PO 06/20/17 22:00 07/20/17 21:59 06/22/17 21:02 150 MG Salmeterol Xinafoate/ Fluticasone (Advair Diskus 250/50 Inh) 1 puff BID INH 06/21/17 20:00 07/21/17 19:59 06/23/17 08:11 1 PUFF Tiotropium [place] (Spiriva Handihaler Inhaler) 1 puff DAILY INH 06/22/17 08:00 07/22/17 07:59 06/23/17 08:12 1 PUFF Enteral Nutritional Formula (Boost) 1 can TIDM PO 06/21/17 17:00 07/21/17 16:59 06/23/17 12:00 1 CAN Collagenase (Santyl Oint) 1 appln DAILY EXT 06/22/17 08:00 07/22/17 07:59 06/22/17 16:19 1 APPLN Rivaroxaban (Xarelto Tab) 15 mg BID PO 06/21/17 18:00 07/12/17 17:59 06/23/17 08:12 15 MG Ceftriaxone Sodium 2 gm/ Dextrose 50 ml @ 100 mls/hr Q24H IV 06/22/17 16:00 07/02/17 15:59 06/22/17 16:19 100 MLS/HR Vancomycin HCl 1250 mg/Sodium Chloride 275 ml @ 125 mls/hr Q12H IV 06/22/17 20:00 07/01/17 19:59 06/23/17 08:29 125 MLS/HR Physical Exam Date Time Temp Pulse Resp B/P (MAP) Pulse Ox O2 Delivery O2 Flow Rate FiO2 06/23/17 10:07 36.7 72 16 98 Room Air 06/23/17 09:26 Room Air 06/23/17 07:13 36.7 72 16 127/79 (95) 98 Room Air 06/23/17 07:12 36.7 61 16 157/79 (105) 92 06/23/17 00:06 36.6 50 18 132/65 (87) 96 Room Air 06/23/17 00:00 Room Air 06/22/17 16:00 Room Air 06/22/17 15:02 36.7 60 18 145/89 (107) 98 Room Air General: The patient is lying in a hospital bed in no distress. Vital signs were reviewed and found to be unremarkable patient is afebrile. Alert, cooperative and appropriate to all questions. HEENT: Pupils equal and reactive to light. Sclera clear, EOM intact. Neck: Supple, No JVD noted Chest: CTA in all johnson. No deformity Heart: RRR without murmurs, S3, S4, thrills, rubs or heaves Extremities: WOUNDS ON BILATERAL LEGS WERE NOTED. SCALING AND HEMOSIDERIN STAINING OF BILATERAL LEGS NOTED. LEFT ANTERIOR LEG EXHIBITS ONE WOUND MEASURING 2 X 2 X 0.4 CM. RED/YELLOW BASE. SCALING PERIPHERY. RIGHT MEDIAL ANKLE WOUND MEASURED 2 X 2 X 0.2 CM WITH PINK/RED BASE AND SCALING THROUGHOUT AND ALONG THIS WOUND PERIPHERY. RIGHT MEDIAL PROXIMAL WOUND MEASURED 1 X 0.7 X 0.1 CM. BASE OF THIS WOUND IS RED. RIGHT ANTERIOR LEG WOUND MEASURED 1.7 X 3 X 0.3 CM WITH A RED/YELLOW BASE. RIGHT LATERAL LEG WOUND MEASURED 2 X 2 X 0.4 CM WITH A RED BASE WELL. Neurological: Alert and oriented x3. No focal deficits. Laboratory Results Last 24 Hours Test 06/23/17 06:57 White Blood Count 5.17 K/uL Red Blood Count 4.64 M/uL Hemoglobin 14.5 g/dL Hematocrit 44.1 % Mean Corpuscular Volume 95.0 fL Mean Corpuscular Hemoglobin 31.3 pg Mean Corpuscular Hemoglobin Concent 32.9 g/dl RDW Standard Deviation 53.8 fL RDW Coefficient of Variation 15.4 % Platelet Count 175 K/uL Mean Platelet Volume 9.9 fL Prothrombin Time 11.4 SECONDS Prothromb Time International Ratio 1.1 Sodium Level 139 mmol/L Potassium Level 3.8 mmol/L Chloride Level 108 mmol/L Carbon Dioxide Level 24 mmol/L Anion Gap 6.0 mmol/L Blood Urea Nitrogen 10 mg/dl Creatinine 0.77 mg/dl Est Creatinine Clear Calc Drug Dose 143.6 ml/min Estimated GFR () 128.8 Estimated GFR (Non- 111.1 BUN/Creatinine Ratio 13.4 Random Glucose 119 mg/dl Calcium Level 8.6 mg/dl Assessment & Plan Assessment: Bilateral venous stasis ulcerations with cellulitis Chronic venous insufficiency Plan: No debridement is indicated today. Both extremity ulcerative sites were dressed with Santyl gauze 1 layer Tubigrip dressings changed daily. Patient will continue to be monitored during hospital course and reevaluated for debridement is indicated.
[2017-06-24] MEDS ORDERED: VANCOMYCIN TROUGH ONE (07:30)
== END 2017-06-23 14:13 | DRG 603 ==
LOC: C.EDB 08:25 → C.MS4W 13:29 → ENRESERV 13:49 → CANBEDREQ 14:26
PROVIDERS: ADMIT Hospitalist; ATTEND Family Medicine
PROC: 02HV33Z Insertion of Infusion Device into Superior Vena Cava, Percutaneous Approach (ICD-10-PCS; principal; 2017-06-23)
DX: L03.115 Cellulitis of right lower limb (principal); J44.1 Chronic obstructive pulmonary disease with (acute) exacerbation; D68.59 Other primary thrombophilia; I82.503 Chronic embolism and thrombosis of unspecified deep veins of lower extremity, bilateral; L03.116 Cellulitis of left lower limb; I87.2 Venous insufficiency (chronic) (peripheral); E87.6 Hypokalemia; B96.20 Unspecified Escherichia coli [E. coli] as the cause of diseases classified elsewhere; F17.200 Nicotine dependence, unspecified, uncomplicated; K21.9 Gastro-esophageal reflux disease without esophagitis; Z79.01 Long term (current) use of anticoagulants; Z79.899 Other long term (current) drug therapy

== ENCOUNTER 2017-08-30 08:16 | Inpatient (IN) | payer OTHER ==
[~2017-08-30] VITALS: Ht 175.3 cm; Wt 93.7 kg
[~2017-08-30 08:16] MED LIST: ADVIN25/60 INH; DOCU-94 PO; FLV1 PO; OXYC-57 PO; PRD20 PO; PRLSR20 PO; SPRIN/30 INH; THM100 PO; TRAZ100T29 PO; VANC1INJ94 IV; VNTHFA/IN INH; XRL15 PO
[2017-08-30] MEDS ORDERED: ONDANSETRON INJ 2 MG/ML 2 ML VIAL IV STA (08:59)
[2017-08-30] MEDS ORDERED: MoRPHine SULFATE 4 MG/ML 1 ML CARP\\VIAL IV STA ×2 (08:59→11:53)
[2017-08-30] MEDS ORDERED: SODIUM CHLORIDE 0.9% 1000ML 1,000 ML IV ONE (09:00)
[2017-08-30] MEDS ORDERED: SYMIN160 INH (09:30)
[2017-08-30] MEDS ORDERED: OXYC-106 PO (09:30)
--- NOTE | 2017-08-30 09:31 | DIAGNOSTIC IMAGING REPORT ---
SINGLE VIEW CHEST CLINICAL HISTORY: Infection. FINDINGS: An AP, portable, upright chest radiograph is compared to study dated 06/20/2017. The examination is degraded by portable technique and patient rotation. The cardiomediastinal silhouette is unremarkable. There are questionable airspace opacities at the left lung base. Right lung appears clear. No pleural effusion or pneumothorax is seen. The bony thorax is grossly intact. IMPRESSION: Question airspace consolidation at the left lung base. Correlate clinically for evidence of pneumonia. Consider a PA and lateral examination for better assessment. Electronically signed by: Emil Morelos M.D. 08/30/2017 9:30 AM Dictated Date/Time: 08/30/2017 9:29 AM
[2017-08-30 10:15] LABS: BASO % 0.5 %; BASO ABS # 0.03 K/uL (0-0.2); EOS % 1.1 %; EOS ABS # 0.06 K/uL (0-0.5); HEMATOCRIT 47.8 % (42-52); IG# 0.01 K/uL (0.00-0.02); LYMPH % 10.7 %; LYMPH ABS # 0.59 K/uL (1.2-3.4); MEAN CELL VOLUME 93.2 fL (80-100); MEAN CORPUSCULAR HEMOGLOBIN 31.2 pg (25-34); MEAN CORPUSCULAR HGB CONC 33.5 g/dl (32-36); MEAN PLATELET VOLUME 10.4 fL (7.4-10.4); MONO % 6.5 %; MONO ABS # 0.36 K/uL (0.11-0.59); NEUT ABS # 4.45 K/uL (1.4-6.5); PLATELET COUNT 147 K/uL (130-400); RED CELL DISTRIBUTION WIDTH CV 15.1 % (11.5-14.5); RED CELL DISTRIBUTION WIDTH SD 52.1 fL (36.4-46.3)
[2017-08-30 10:39] LABS: ALBUMIN 3.5 gm/dl (3.4-5.0); CALCIUM 9.2 mg/dl (8.5-10.1); CREATININE 0.83 mg/dl (0.60-1.40); POTASSIUM 3.5 mmol/L (3.5-5.1); TOTAL PROTEIN 9.3 gm/dl (6.4-8.2)
--- NOTE | 2017-08-30 10:56 | DIAGNOSTIC IMAGING REPORT ---
CHEST 2 VIEWS ROUTINE CLINICAL HISTORY: eval for infiltrate pneumonia COMPARISON STUDY: Same date 9:10 AM FINDINGS: Mild emphysematous and interstitial change throughout both hemithoraces. This potentially is on the basis of chronic fibrosis. Left base shows no well-defined infiltrate. Diaphragms smooth. IMPRESSION: Chronic and mild emphysematous change. No well-defined focal infiltrate. Slight generalized interstitial prominence potentially on the basis of chronic change versus mild pneumonitis. The above report was generated using voice recognition software. It may contain grammatical, syntax or spelling errors. Electronically signed by: Aleksandr Mistry M.D. 08/30/2017 10:55 AM Dictated Date/Time: 08/30/2017 10:54 AM
--- NOTE | 2017-08-30 11:32 | DIAGNOSTIC IMAGING REPORT ---
VENOUS DOPPLER LWR EXT BILA HISTORY: Pain. Edema. bilateral leg pain R>L COMPARISON STUDY: 06/20/2017 FINDINGS: Evidence for thrombus formation within the right femoral vein, popliteal vein, as well as several calf veins. Several superficial varicosities as well as several peripheral branches of the greater saphenous vein show superimposed acute superficial thrombophlebitis. Left leg shows thrombus within the common femoral veins as well as several calf and popliteal veins. Bilateral lymph nodes are again noted. These is seen primarily in the inguinal regions-similar compared to the prior study. IMPRESSION: 1. Acute bilateral deep venous thrombosis considered rather extensive bilaterally. 2. Acute superficial thrombophlebitis bilaterally. 3. Findings of chronic venous scarring are again noted with all acute findings superimposed upon these pre-existing venous changes. The above report was generated using voice recognition software. It may contain grammatical, syntax or spelling errors. Electronically signed by: Aleksandr Mistry M.D. 08/30/2017 11:30 AM Dictated Date/Time: 08/30/2017 11:27 AM
[2017-08-30] MEDS ORDERED: RIVAROXABAN TAB 15 MG TAB PO ONE (12:00)
[2017-08-30 12:15] VITALS: O2SAT 97; BMI 30.5
[2017-08-30] MEDS ORDERED: VANCOMYCIN INJ 2,250 MG in SODIUM CHLORIDE 0.9% 500ML 500 ML IV ONE (12:30)
[2017-08-30] MEDS ORDERED: ONDANSETRON INJ 2 MG/ML 2 ML VIAL IV PRN (12:30)
[2017-08-30] MEDS ORDERED: POLYETHYLENE (MIRALAX) 17 GM PACK PO PRN (12:30)
[2017-08-30] MEDS ORDERED: ACETAMINOPHEN 325 MG TAB PO PRN (12:30)
[2017-08-30] MEDS ORDERED: CEFTRIAXONE SOD INJ 2000 MG in DEXTROSE 5% 50ML IV ONE (12:30)
[2017-08-30] MEDS ORDERED: RIVA1TAB4 PO (12:40)
[2017-08-30] MEDS ORDERED: OXYC-57 PO (12:40)
[2017-08-30] MEDS ORDERED: MULTTAB58 PO (12:40)
[2017-08-30] MEDS ORDERED: SPRIN/30 INH (12:40)
[2017-08-30] MEDS ORDERED: DSY/150 PO (12:40)
[2017-08-30] MEDS ORDERED: OXYCODONE/ACETAMINOPHEN 5-325 TAB PO PRN (12:45)
[2017-08-30] MEDS: ALBUT/IPRATROP 3MG/0.5MG NEB 3 ML VIAL INH SCH ×2 (12:45→19:51)
[2017-08-30 13:20] LABS: PTT PATIENT 25.9 SECONDS (21.0-31.0)
[2017-08-30 14:00] VITALS: BP 117/73; PULSE 69; TEMP 36.6; O2SAT 96
[2017-08-30] MEDS ORDERED: VANCOMYCIN CONSULT ACTIVE STA (14:04)
--- NOTE | 2017-08-30 14:36 | Progress Note ---
Progress Note Date of Service Aug 30, 2017. Progress Note ID Consult Dictated #[id number] A/P: 1. LE ulcers/cellulitis -Continue abx, follow blood and wound culture -will follow, thank you
--- NOTE | 2017-08-30 14:49 | Pharmacy Progress Note ---
Pharmacy Abx Initial Consult Date of Service Aug 30, 2017. Pharmacy Dosing Scope Date of Consult: 08/30/17 Consultation requested by: GREGORIO Jimenez Pharmacy is consulted to initiate vancomycin IV dosing therapy, order appropriate labs and adjust drug dose/frequency. Subjective The patient is a 42 year old male admitted on Aug 30, 2017 at 12:27. Objective Height (Feet): 5 Height (Inches): 9.00 Weight (Kilograms): 93.700 Vital Signs (Past 12Hrs) Vital Signs Past 12 Hours Date Time Temp Pulse Resp B/P (MAP) Pulse Ox O2 Delivery O2 Flow Rate FiO2 08/30/17 13:40 36.6 79 19 133/72 08/30/17 13:30 36.6 79 18 133/72 97 Room Air 08/30/17 12:35 128/60 08/30/17 12:15 97 Room Air 08/30/17 11:30 36.6 79 18 132/84 97 Room Air 08/30/17 09:30 36.6 99 18 150/89 97 Room Air 08/30/17 08:24 36.6 105 18 151/101 97 Room Air Lab Results (24Hrs) Laboratory Tests (24 Hours) Test 08/30/17 09:42 White Blood Count 5.50 K/uL (4.8-10.8) Red Blood Count 5.13 M/uL (4.7-6.1) Hemoglobin 16.0 g/dL (14.0-18.0) Hematocrit 47.8 % (42-52) Mean Corpuscular Volume 93.2 fL (80-100) Mean Corpuscular Hemoglobin 31.2 pg (25-34) Mean Corpuscular Hemoglobin Concent 33.5 g/dl (32-36) Platelet Count 147 K/uL (130-400) Mean Platelet Volume 10.4 fL (7.4-10.4) Neutrophils (%) (Auto) 81.0 % Lymphocytes (%) (Auto) 10.7 % Monocytes (%) (Auto) 6.5 % Eosinophils (%) (Auto) 1.1 % Basophils (%) (Auto) 0.5 % Neutrophils # (Auto) 4.45 K/uL (1.4-6.5) Lymphocytes # (Auto) 0.59 K/uL (1.2-3.4) L Monocytes # (Auto) 0.36 K/uL (0.11-0.59) Eosinophils # (Auto) 0.06 K/uL (0-0.5) Basophils # (Auto) 0.03 K/uL (0-0.2) Micro Results Date/Time Source Procedure Growth Status 08/30/17 09:57 Blood Blood Culture Pending Received 08/30/17 09:42 Blood Blood Culture Pending Received Risk Factors for Resistance * 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 Patient previously had a culture from February of last year that grew E coli (sensitive to Rocephin) and MRSA. Plan vancomycin for treatment of cellulitis Vancomycin IV * Loading dose: 2250 mg (25 mg/kg) * Maintenance dose: 1250 mg IV (13 mg/kg) every 12 hours (based upon previous patient data) * Goal trough level for MRSA cellulitis : 15 to 20 mcg/mL * Trough level ordered for 09/01/17 Pharmacy will continue to follow and will adjust dose/frequency as necessary. Thank you.
[2017-08-30] MEDS ORDERED: ALBUT/IPRATROP 3MG/0.5MG NEB 3 ML VIAL INH PRN (15:00)
--- NOTE | 2017-08-30 15:09 | INFECT. DISEASE CONSULTATION ---
DATE OF CONSULTATION: 08/30/2017 DATE OF CONSULTATION: 08/30/2017 HISTORY OF PRESENT ILLNESS: This is a 42-year-old gentleman who was admitted with worsening lower extremity pain. He does have bilateral wounds and also has a history of bilateral DVTs. He did have Dopplers done in the Emergency Room which showed acute DVT and also superficial thrombophlebitis. He was last seen in the hospital by infectious diseases in May. At that time, a wound culture had grown E. coli and MRSA. He was treated with Rocephin and oral doxycycline for a minimum of 21 days. He did not follow up with ID after he left the hospital. He was sent to a rehabilitation facility and he continued on antibiotics there, but he states he was discharged from that facility and was not placed on any antibiotics. He believes he has been off of antibiotics for 3 weeks. He has had continued worsening of his wounds. 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 He has been doing dressing changes twice a day at home. He denies any drainage from the wound. He denies any bleeding. He denies any fevers or chills. He has been afebrile since presentation to the ER. Blood cultures are pending. White blood cell count is 5.5. He was placed again on Rocephin and vancomycin and he is tolerating these well. He denies any chest pain, cough, shortness of breath, nausea, vomiting or diarrhea. His remaining review of systems is unremarkable. His only complaint is some pain in the right lower extremity and itching in his bilateral lower extremities. PAST MEDICAL HISTORY: Significant for DVT, venous stasis ulcerations, history of PE and recurrent cellulitis. PAST SURGICAL HISTORY: Unremarkable. SOCIAL HISTORY: Significant for tobacco use. ALLERGIES: HE HAS ALLERGIES TO BACTRIM. FAMILY HISTORY: Noncontributory. MEDICATIONS: Include folic acid, multivitamin, vitamin B, Spiriva, trazodone, nicotine patch, Xarelto, Symbicort, Colace, Protonix, Rocephin, Percocet, DuoNebs, vancomycin, Tylenol, MiraLax, Zofran, Lovenox, Coumadin, morphine, Tylenol and Ativan. PHYSICAL EXAMINATION: VITAL SIGNS: She is afebrile, pulse 79, respiratory rate 19, blood pressure 133/72, oxygen is 97% on room air. GENERAL: He is awake, alert and oriented x3. He is in no acute distress. HEAD, EYES, EARS, NOSE, AND THROAT: Mucous membranes are moist. Extraocular muscles are intact. HEART: Regular. LUNGS: Clear. ABDOMEN: Soft. There are chronic stasis changes bilaterally. There are bilateral lower extremity ulcerations on both the anterior and lateral calf. There is no active purulent drainage. Skin is dry and peeling. There is warmth and tenderness to palpation in the right lower extremity greater than the left. LABORATORY STUDIES: CBC reveals a white blood cell count of 5.5, hemoglobin 16, platelets are 147. Chemistry panel reveals a sodium of 135, potassium 3.5, chloride 102, bicarbonate 27, BUN 7, creatinine 0.8, glucose is 113. LFTs are within normal limits. Urinalysis is unremarkable. Blood cultures are pending. No wound culture has been obtained, but is ordered. Imaging is as above. Chest x-ray done in the ER shows a questionable airspace consolidation at the left lower lung on portable study but no PA and lateral was obtained. ASSESSMENT AND PLAN: Chronic lower extremity ulcerations with DVT and recurrent cellulitis. He will remain on empiric antibiotics and blood and wound cultures will be followed. He will undergo wound care while in the hospital as well. Thank you for this consultation.
[2017-08-30] MEDS ORDERED: VANCOMYCIN CONSULT ACTIVE PRN (15:15)
--- NOTE | 2017-08-30 15:44 | History and Physical ---
History & Physical Date & Time of Service: Aug 30, 2017 at 12:45 Chief Complaint: Infection Primary Care Physician: Antonio Jo PA-C History of Present Illness Source: patient, clinic records, hospital records Pt is 42 y/o M with PMH hypercoagulopathy, hx PE, chronic LE DVT, chronic venous stasis with chronic LE wounds, chronic leg pain,COPD who presented to ER with c/o increased R leg pain and swelling. Pt with multiple hospitalizations for cellulitis LE at [facility], last 06/14/17 and reports was on vancomycin and d/c on oral clindamycin. Hx MRSA. hx hospitalization here on 06/20/17 - 06/23/17 for LE wounds and chronic DVT. He was discharged to [facility] with Picc line and on xarelto (as pt was not able to make appts to get his INR checked when he was on coumadin). Pt reports was there for 1 month and d/c home on xarelto 20mg daily. He states ran out and stopped taking it 2 weeks ago as he didn't have transportation. He states that he has coupon for xarelto. (pt on probation from 12/2016 and reports he is getting his license back this week) . Pt states this week with increased pain to R leg and R thigh and noticed increased swelling bilateral legs. Also noticed increased redness to lower legs and worsening ulcers. He reports ulcers were almost healed when he was d/c from rehab facility. He reports has been doing daily dressing changes to legs. In past [facility] [place], but hasn't followed with them for over a month due to transportation problems. Feels hot sometimes but unsure if had a fever. Denies chills or diaphoresis, N/V/D/C, SCOTT, dizziness , syncope, vision changes, neck pain, CP, SOB, orthopnea, palpitations, cough, sore throat, choking, otalgia, rhinorrhea, abdominal pain, paresthesias, weakness, other rashes, urinary symptoms. Today in ER U/S LE: acute bilateral DVT, CXR: chronic mild emphysematous changes , no focal infiltrate. No leukocytosis. Afebrile. He was given Rocephin, Vanco, Morphine IV Past Medical/Surgical History Medical Problems: (1) Chronic deep vein thrombosis (DVT) Status: Chronic (2) Chronic ulcer of leg Status: Chronic (3) Chronic venous stasis dermatitis of both lower extremities Status: Chronic (4) COPD (chronic obstructive pulmonary disease) Status: Chronic (5) Depression Status: Chronic (6) GERD (gastroesophageal reflux disease) Status: Chronic (7) H/O ETOH abuse Status: Chronic (8) H/O methicillin resistant Staphylococcus aureus Status: Chronic (9) Hypercoagulable state Status: Chronic (10) Narcotic dependence Status: Chronic (11) Tobacco abuse Status: Chronic (12) Venous (peripheral) insufficiency Status: Chronic Surgical Problems: (1) History of incision and drainage Permanent Comment: 2014 - I&D leg abscess - Dr Chaudhari [facility] Status: Resolved Family History Hypercoagulability MOTHER Social History Smoking Status: Current Every Day Smoker (0.5ppd (decreased from 1ppd) x 15 years) Smokeless Tobacco Use: No Alcohol Use: Denies ETOH use x 3 weeks, usually drinks 2 beers and 1 shot once a week. (previously heavy drinker, stopped 12/2016 as on probation) Drug Use: none Marital Status: single Housing status: lives alone Immunizations History of Influenza Vaccine: Yes Influenza Vaccine Date: Jun 08, 2017 History of Tetanus Vaccine?: Yes Tetanus Immunization Date: Mar 22, 2007 History of Pneumococcal: Yes Pneumococcal Date: Feb 09, 2017 History of Hepatitis B Vaccine: Unknown Multi-Drug Resistant Organisms History of MDRO: Yes Type of MDRO: MRSA Allergies Coded Allergies: Pea (Unverified Allergy, Unknown, ., 08/30/17) Sulfamethoxazole w/Trimethoprim (Unverified Allergy, Unknown, hives, ) Home Medications Scheduled Budesonide/Formoterol Fumarate (Symbicort 160/4.5 Inhaler ), 2 PUFFS INH BID Docusate Sodium (Colace), 100 MG PO BID Folic Acid (Folic Acid), 1 MG PO DAILY Multiple Vitamin (Multivitamin), 1 TAB PO DAILY Omeprazole (Prilosec), 20 MG PO BID Rivaroxaban (Xarelto), 1 TAB PO DAILY Thiamine HCl (Vitamin B-1), 100 MG PO DAILY Tiotropium [place] (Spiriva Handihaler), 1 CAP INH DAILY Trazodone HCl (Trazodone HCl), 1 TAB PO HS Scheduled PRN Albuterol Hfa (Ventolin Hfa), 2 PUFFS INH Q6H PRN for SOB/Wheezing Oxycodone/Acetaminophen 5MG/325MG (Percocet 5MG/325MG), 1 TABLET PO Q8 PRN for Pain Review of Systems Constitutional: No weight loss, No fatigue Eyes: No worsening of vision, No eye pain, No redness, No discharge, No diplopia ENT: No hearing loss, No unusual epistaxis, No nasal symptoms, No sore throat Respiratory: No cough, No sputum, No wheezing, No shortness of breath, No dyspnea on exertion, No dyspnea at rest, No hemoptysis Cardiovascular: No chest pain, No orthopnea, No PND, No palpitations Abdomen: + constipation (hx constipation, uses colace daily), No pain, No nausea, No vomiting, No diarrhea Musculoskeletal: + swelling (see HPI) Genitourinary - Male: No hematuria, No dysuria, No urinary frequency, No urinary urgency, No urinary hesitancy, No urinary retention Neurologic: No memory loss, No paralysis, No weakness, No numbness/tingling, No vertigo Hematologic / Lymphatic: No night sweats Integumentary: + problem reported (see HPI) Physical Exam Vital Signs Date Time Temp Pulse Resp B/P (MAP) Pulse Ox O2 Delivery O2 Flow Rate FiO2 08/30/17 12:35 128/60 08/30/17 11:30 36.6 79 18 132/84 97 Room Air 08/30/17 09:30 36.6 99 18 150/89 97 Room Air 08/30/17 08:24 36.6 105 18 151/101 97 Room Air General Appearance: WD/WN, no apparent distress Head: normocephalic, atraumatic Eyes: normal inspection, PERRL, EOMI, sclerae normal ENT: hearing grossly normal, pharynx normal, + pertinent finding (mucous membranes moist) Neck: supple, no adenopathy, trachea midline Respiratory/Chest: chest non-tender, no respiratory distress, no accessory muscle use, + wheezing (scattered throughout, no rales or rhonchi) Cardiovascular: regular rate, rhythm, no murmur, normal peripheral pulses Abdomen/GI: normal bowel sounds, non tender, soft Extremities/Musculoskelatal: normal range of motion, + pertinent finding ( Bilateral lower extremities with venous stasis changes, dry skin and erythema. Right anterior lower leg with ulcer without discharge. Left anterior lower leg with ulcer without discharge. Diffuse tenderness to palpation bilateral legs, ROM intact, distal pulses intact, sensation to light touch intact. ROM upper extremites intact, non-tender, no edema/erythema, distal pulses intact, brisk capillary refill. sensation to light touch intact) Neurologic/Psych: alert, normal mood/affect, oriented x 3 Skin: + pertinent finding (see extremities) Diagnostics Laboratory Results Results Past 24 Hours Test 08/30/17 09:42 08/30/17 10:02 08/30/17 10:19 08/30/17 11:09 Range/Units White Blood Count 5.50 4.8-10.8 K/uL Red Blood Count 5.13 4.7-6.1 M/uL Hemoglobin 16.0 14.0-18.0 g/dL Hematocrit 47.8 42-52 % Mean Corpuscular Volume 93.2 80-100 fL Mean Corpuscular Hemoglobin 31.2 25-34 pg Mean Corpuscular Hemoglobin Concent 33.5 32-36 g/dl Platelet Count 147 130-400 K/uL Mean Platelet Volume 10.4 7.4-10.4 fL Neutrophils (%) (Auto) 81.0 % Lymphocytes (%) (Auto) 10.7 % Monocytes (%) (Auto) 6.5 % Eosinophils (%) (Auto) 1.1 % Basophils (%) (Auto) 0.5 % Neutrophils # (Auto) 4.45 1.4-6.5 K/uL Lymphocytes # (Auto) 0.59 1.2-3.4 K/uL Monocytes # (Auto) 0.36 0.11-0.59 K/uL Eosinophils # (Auto) 0.06 0-0.5 K/uL Basophils # (Auto) 0.03 0-0.2 K/uL RDW Standard Deviation 52.1 36.4-46.3 fL RDW Coefficient of Variation 15.1 11.5-14.5 % Immature Granulocyte % (Auto) 0.2 % Immature Granulocyte # (Auto) 0.01 0.00-0.02 K/uL Sodium Level 135 136-145 mmol/L Potassium Level 3.5 3.5-5.1 mmol/L Chloride Level 102 98-107 mmol/L Carbon Dioxide Level 27 21-32 mmol/L Anion Gap 6.0 3-11 mmol/L Blood Urea Nitrogen 7 7-18 mg/dl Creatinine 0.83 0.60-1.40 mg/dl Est Creatinine Clear Calc Drug Dose 129.7 ml/min Estimated GFR () 124.9 Estimated GFR (Non- 107.8 BUN/Creatinine Ratio 8.8 10-20 Random Glucose 113 70-99 mg/dl Calcium Level 9.2 8.5-10.1 mg/dl Total Bilirubin 1.1 0.2-1 mg/dl Direct Bilirubin 0.2 0-0.2 mg/dl Aspartate Amino Transf (AST/SGOT) 26 15-37 U/L Alanine Aminotransferase (ALT/SGPT) 36 12-78 U/L Alkaline Phosphatase 104 45-117 U/L Total Protein 9.3 6.4-8.2 gm/dl Albumin 3.5 3.4-5.0 gm/dl Bedside Lactic Acid Venous 1.17 0.90-1.70 mmol/L Urine Color ORANGE Urine Appearance CLEAR CLEAR Urine pH 4.5-7.5 Urine Specific [place] 1.030 1.000-1.030 Urine Protein NEG NEG Urine Glucose (UA) NEG Urine Ketones NEG Urine Occult Blood NEG Urine Nitrite NEG Urine Bilirubin NEG Urine Urobilinogen NEG Urine Leukocyte Esterase NEG Urine RBC 0-4 0-4 /hpf Urine WBC 1-5 0-5 /hpf Urine Epithelial Cells >30 0-5 /lpf Urine Bacteria NEG NEG Microbiology Results 08/30/17 Blood Culture, Received Pending 08/30/17 Blood Culture, Received Pending Diagnostic Radiology CXR: IMPRESSION: Chronic and mild emphysematous change. No well-defined focal infiltrate. Slight generalized interstitial prominence potentially on the basis of chronic change versus mild pneumonitis. VENOUS DOPPLER BILATERAL LE: IMPRESSION: 1. Acute bilateral deep venous thrombosis considered rather extensive bilaterally. 2. Acute superficial thrombophlebitis bilaterally. 3. Findings of chronic venous scarring are again noted with all acute findings superimposed upon these pre-existing venous changes. Impression Assessment and Plan ACUTE ON CHRONIC DVT BILATERAL LOWER EXTREMITIES Pt with hx hypercoaguopathy (unknown type, pt reports workup in [place]) and chronic DVT on anticoagulation, however stopped using past 2 weeks and pt presented with increased discomfort and edema LE. Venous doppler today in ER: Acute bilateral deep venous thrombosis considered rather extensive bilaterally. Acute superficial thrombophlebitis bilaterally. Findings of chronic venous scarring are again noted with all acute findings superimposed upon these pre- existing venous changes. -Restart xarelto CELLULITIS, CHRONIC LE WOUNDS, CHRONIC VENOUS STASIS Pt with chronic LE wounds with increased erythema past week. Afebrile, no leukocytosis. -wound cultures ordered -pending blood cultures -consult ID -consult wound physician -vancomycin IV -Rocephin IV -CBC, PRP in am COPD Pt with wheezing on exam. CXR:chronic emphysema changes, intersitial changes throughout, no focal infiltrate noted. Afebrile. Denies increased cough or sputum. He doesn't feel he needs steroids at this time, will continue to monitor and consider adding if needed -duonebs -continue Spiriva -continue Symbicort TOBACCO ABUSE -nicotine patch -smoking cessation counseling GERD -continue PPI CHRONIC LEG PAIN on percocet prn -continue percocet. Will avoid IV pain medicines at this time HX ETOH ABUSE IN PAST pt denies ETOH use in weeks -continue thiamine -continue multivitamin -continue folic acid INSOMNIA -continue trazodone HS prn insomnia DVT PROPHYLAXIS -Pt with active DVT- Started on Xarelto DISPOSITION -admit med/surg -Full Code -Follows with Antonio Jo PA-C for routine care Pt was seen with Dr Melgar. See addendum ADDENDUM: This is a 42 year old non-compliant patient, who presents secondary to lower extremity pain; found to have acute bilateral DVTs secondary to not taking Xarelto for previous DVTs. 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 He has had infected wounds on his bilateral lower extremities; the LE are warm to touch and red - started on Rocephin + Vancomycin , restarted Xarelto at 15mg BID for 21 days and then 20mg daily; wound care, ID consulted for further input. Level of Care Med/Surg Resuscitation Status FULL RESUSCITATION VTE Prophylaxis VTE Risk Assessment Done? Y/N: Yes Risk Level: High Given or contraindicated: Other Anticoagulation Additional Copies To Antonio Jo PA-C
[2017-08-30 16:21] VITALS: BP 99/62; PULSE 84; TEMP 36.9; O2SAT 96
[2017-08-30] MEDS: NICOTINE 14 MG/24 HR TDSY TD SCH (17:09)
--- NOTE | 2017-08-30 18:01 | EMERGENCY ROOM VISIT NOTE ---
ED Visit Note First contact with patient: 08:33 Chief Complaint: I think I have an infection in my right leg. History of Present Illness: Mr. Hendrix is a 42-year-old male who ambulates into the ED complaining of a possible cellulitis of the right leg. Historically patient reports he has had left lower leg cellulitis, history of chronic leg DVTs, chronic venous stasis with ulcers of the leg. He was admitted to this hospital on June 20 because of his left leg infection. He was discharged and receive antibiotics into June at home via PICC line. Patient reports yesterday he started experiencing right thigh pain similar to the pain he had in May in his left leg. He reports since that time his pain has been constant gradually increasing in intensity. He describes it as a sharp and burning sensation. He places it over the medial aspect of the mid thigh. He rates his discomfort 8/10. He reports his pain is radiating into the groin area. His pain worsens with palpation, ambulation and knee extension. He has not identified any alleviating factors related to the pain. He has not taken a medication for pain prior to arrival at the hospital. Associated with his pain he reports the ulcer he has on his lower leg and his area of venous stasis has increased in size and has been draining purulent drainage, he has been having a decreased appetite and he reports he has been having paresthesias of the mid right arm that he has been having intermittently since he had his PICC line removed in June. He denies fevers, chills, sweats, other skin eruptions, other skin color changes , upper respiratory tract symptoms, cough, wheezing, shortness of breath, palpitations, chest pain, abdominal pain, nausea, vomiting. Review of Systems: As noted above in history of present illness. All body systems were reviewed and found to be negative as noted above. Past Medical History: As previously noted, COPD, depression, GERD, alcohol abuse , narcotic dependence, hypercoagulable state. Current Medications: Medications Dose Route/Sig Max Daily Dose Days Date Category Percocet 10MG/325MG (Oxycodone/Acetaminophen) Tab 1 Tab PO Q6H PRN 08/30/17 Reported Symbicort 160/4.5 Inhaler (Budesonide/Formoterol Fumarate) Aero 2 Puffs INH BID 08/30/17 Reported Vitamin B-1 (Thiamine HCl) 100 Mg Tab 100 Mg PO DAILY 06/20/17 Reported Folic Acid 1 Mg Tab 1 Mg PO DAILY 06/20/17 Reported Colace (Docusate Sodium) 100 Mg Cap 100 Mg PO BID 06/20/17 Reported Ventolin Hfa (Albuterol) 200 Puffs/57864 Mcg Aers 2 Puffs INH Q6H PRN 06/20/17 Reported Trazodone (Trazodone HCl) 100 Mg Tab 150 Mg PO HS 06/20/17 Reported Prilosec (Omeprazole) 20 Mg Capcr 20 Mg PO BID 06/20/17 Reported Allergies to Medications: Bactrim. Social History: Patient is not employed; he feels safe in his home environment; he admits to tobacco and alcohol use. Physical Examination: Vital Signs: Date Time Temp Pulse Resp B/P (MAP) Pulse Ox O2 Delivery O2 Flow Rate FiO2 08/30/17 12:15 97 Room Air 08/30/17 11:30 36.6 79 18 132/84 97 Room Air 08/30/17 09:30 36.6 99 18 150/89 97 Room Air 08/30/17 08:24 36.6 105 18 151/101 97 Room Air GENERAL: 42-year-old male in mild distress due to pain, nontoxic-appearing, afebrile and hemodynamically stable. NEUROLOGICAL: Awake, alert and oriented to person, place and time. Answering questions appropriately and following commands. Good hand eye coordination. SKIN: Warm, dry and pink. Lower Extremities: Significant venous stasis changes noted over both lower legs. Patient has large ulcerations on both legs with purulent drainage. There is some mild erythema around the venous stasis changes. There is no lymphangitis. HEENT: Atraumatic and normocephalic. PERRLA. Sclera white and conjunctiva pink. No drainage from naris. Oral cavity moist and pink. Pharynx is nonerythematous or edematous. Speech normal. No lymphadenopathy. Trachea midline. No jugular venous distention. BACK: No tenderness over the bony spine. No CVA tenderness. THORAX: Lungs sounds diffuse mild wheezes bilaterally to auscultation and equal bilaterally with symmetrical chest wall. No rales or rhonchi. No crepitus, tenderness, subcutaneous air or deformities noted. HEART: Regular rate and rhythm. No gallops, rubs or murmurs are appreciated. ABDOMEN: Flat, soft and nontender. Positive bowel sounds in all quadrants. No guarding, rigidity or organomegaly. Bilateral inguinal lymphadenopathy. EXTREMITIES: Moves all extremities well on command and with purpose. All distal neurovascular statuses are intact and equal bilaterally. Upper Extremities: No gross bony deformity. Lower Extremities: Soft tissue changes as noted above. Full range of motion at the hip, knee, ankle and foot. Surrounding his lower legs is mild erythema bilaterally slightly more pronounced on the right than the left. Skin is warm and tender to palpation. He has multiple open lesions that are draining a purulent foul-smelling drainage. Difficult to palpate pulses but capillary refill is brisk. Was able to distinguish light sensations through all dermatomes of the leg. No calf tenderness or cords. ED Course: Patient is assessed as noted above per Patient's medication list was reviewed. Laboratory Testing: Test 08/30/17 09:42 08/30/17 10:02 08/30/17 10:19 Range/Units White Blood Count 5.50 4.8-10.8 K/uL Red Blood Count 5.13 4.7-6.1 M/uL Hemoglobin 16.0 14.0-18.0 g/dL Hematocrit 47.8 42-52 % Mean Corpuscular Volume 93.2 80-100 fL Mean Corpuscular Hemoglobin 31.2 25-34 pg Mean Corpuscular Hemoglobin Concent 33.5 32-36 g/dl Platelet Count 147 130-400 K/uL Mean Platelet Volume 10.4 7.4-10.4 fL Neutrophils (%) (Auto) 81.0 % Lymphocytes (%) (Auto) 10.7 % Monocytes (%) (Auto) 6.5 % Eosinophils (%) (Auto) 1.1 % Basophils (%) (Auto) 0.5 % Neutrophils # (Auto) 4.45 1.4-6.5 K/uL Lymphocytes # (Auto) 0.59 1.2-3.4 K/uL Monocytes # (Auto) 0.36 0.11-0.59 K/uL Eosinophils # (Auto) 0.06 0-0.5 K/uL Basophils # (Auto) 0.03 0-0.2 K/uL RDW Standard Deviation 52.1 36.4-46.3 fL RDW Coefficient of Variation 15.1 11.5-14.5 % Immature Granulocyte % (Auto) 0.2 % Immature Granulocyte # (Auto) 0.01 0.00-0.02 K/uL Sodium Level 135 136-145 mmol/L Potassium Level 3.5 3.5-5.1 mmol/L Chloride Level 102 98-107 mmol/L Carbon Dioxide Level 27 21-32 mmol/L Anion Gap 6.0 3-11 mmol/L Blood Urea Nitrogen 7 7-18 mg/dl Creatinine 0.83 0.60-1.40 mg/dl Est Creatinine Clear Calc Drug Dose 129.7 ml/min Estimated GFR () 124.9 Estimated GFR (Non- 107.8 BUN/Creatinine Ratio 8.8 10-20 Random Glucose 113 70-99 mg/dl Calcium Level 9.2 8.5-10.1 mg/dl Total Bilirubin 1.1 0.2-1 mg/dl Direct Bilirubin 0.2 0-0.2 mg/dl Aspartate Amino Transf (AST/SGOT) 26 15-37 U/L Alanine Aminotransferase (ALT/SGPT) 36 12-78 U/L Alkaline Phosphatase 104 45-117 U/L Total Protein 9.3 6.4-8.2 gm/dl Albumin 3.5 3.4-5.0 gm/dl Bedside Lactic Acid Venous 1.17 0.90-1.70 mmol/L Urine Color ORANGE Urine Appearance CLEAR CLEAR Urine pH 4.5-7.5 Urine Specific Herman 1.030 1.000-1.030 Urine Protein NEG NEG Urine Glucose (UA) NEG Urine Ketones NEG Urine Occult Blood NEG Urine Nitrite NEG Urine Bilirubin NEG Urine Urobilinogen NEG Urine Leukocyte Esterase NEG Urine RBC 0-4 0-4 /hpf Urine WBC 1-5 0-5 /hpf Urine Epithelial Cells >30 0-5 /lpf Urine Bacteria NEG NEG Microbiology Results 08/30/17 Blood Culture: Pending Chest X-Rays: Were read by myself and the radiologist showing no acute infiltrates, effusions or pneumothorax. Chronic and mild emphysema changes were noted throughout. Slight generalized interstitial prominence potentially on the basis of chronic changes versus mild pneumonitis. Bilateral Venous Doppler Ultrasounds: Were reviewed by myself and read by the radiologist showing acute bilateral deep vein thrombus, acute superficial thrombophlebitis and findings of chronic venous scarring with fall and acute finding superimposed upon these pre-existing venous changes. Patient was hydrated with normal saline and received a total of 8 mg of morphine IV for pain and 4 mg of Zofran IV. Additionally he received 15 mg of Xarelto by mouth. I did consult with the ED pharmacist who recommended vancomycin and Rocephin for antibiotic coverage. Patient was reassessed multiple times during his stay in the emergency department. Patient's case was consulted with Dr. Cox; he agreed on diagnostic approach , treatment, disposition and plan. Patient's case was consulted with case management and Ms. Olmedo, [facility], for medical observation/admission. Patient was educated about today's findings. Clinical Impression: Acute on chronic bilateral lower extremity DVT. Cellulitis of the bilateral lower extremities. Decision-Making: Initially my differential diagnosis I considered worsening DVTs , worsening cellulitis, gangrene and other causes. Disposition and Plan: Patient reports in the hospital by the [facility] hospitalist; please see their notes and orders for final disposition and plan.
[2017-08-30] MEDS: BUDESONIDE/FORMOTEROL FUMARATE 160/4.5 60 PUFFS/INHALER INH SCH (19:36)
[2017-08-30] MEDS: PANTOprazole SOD 40 MG TAB PO SCH (19:37)
[2017-08-30] MEDS: DOCUSATE SODIUM 100 MG CAP PO SCH (19:37)
[2017-08-30] MEDS: TRAZODONE HCL 100 MG TAB PO SCH (19:38)
[2017-08-30] MEDS: RIVAROXABAN TAB 15 MG TAB PO SCH (19:38)
[2017-08-31] VITALS (7 sets, daily range): BP systolic 102–119; BP diastolic 63–78; PULSE 68–87; TEMP 36.6; O2SAT 94–98; Ht 175.3 cm; Wt 93.7 kg
[2017-08-31] MEDS: OXYCODONE/ACETAMINOPHEN 5-325 TAB PO PRN ×4 (00:58→20:52)
[2017-08-31] MEDS: VANCOMYCIN INJ 1,250 MG in SODIUM CHLORIDE 0.9% 250ML 250 ML IV SCH ×2 (00:58→13:53)
[2017-08-31] MEDS: ALBUT/IPRATROP 3MG/0.5MG NEB 3 ML VIAL INH SCH ×4 (07:13→20:10)
[2017-08-31] MEDS ORDERED: MULTIVITAMIN TAB PO SCH (08:00)
[2017-08-31] MEDS: TIOTROPIUM BROMIDE 5 PUFF/90 MCG INH INH SCH (08:39)
[2017-08-31] MEDS: BUDESONIDE/FORMOTEROL FUMARATE 160/4.5 60 PUFFS/INHALER INH SCH ×2 (08:40→19:55)
[2017-08-31] MEDS: DOCUSATE SODIUM 100 MG CAP PO SCH ×2 (08:40→19:55)
[2017-08-31] MEDS: PANTOprazole SOD 40 MG TAB PO SCH ×2 (08:41→19:55)
[2017-08-31] MEDS: THIAMINE HCL 100 MG TAB PO SCH (08:41)
[2017-08-31] MEDS: RIVAROXABAN TAB 15 MG TAB PO SCH ×2 (08:42→20:50)
[2017-08-31] MEDS: NICOTINE 14 MG/24 HR TDSY TD SCH (08:43)
[2017-08-31 09:03] LABS: BASO ABS # 0.03 K/uL (0-0.2); EOS % 3.4 %; HEMATOCRIT 43.7 % (42-52); HEMOGLOBIN 14.4 g/dL (14.0-18.0); IG# 0.01 K/uL (0.00-0.02); LYMPH % 23.5 %; LYMPH ABS # 0.69 K/uL (1.2-3.4); MEAN CELL VOLUME 94.8 fL (80-100); MEAN CORPUSCULAR HEMOGLOBIN 31.2 pg (25-34); MEAN PLATELET VOLUME 10.2 fL (7.4-10.4); MONO % 6.8 %; NEUT ABS # 1.91 K/uL (1.4-6.5); PLATELET COUNT 132 K/uL (130-400); RED CELL DISTRIBUTION WIDTH CV 15.1 % (11.5-14.5); RED CELL DISTRIBUTION WIDTH SD 52.1 fL (36.4-46.3); WHITE BLOOD COUNT 2.94 K/uL (4.8-10.8)
[2017-08-31 09:30] LABS: CALCIUM 8.8 mg/dl (8.5-10.1); CREATININE 0.79 mg/dl (0.60-1.40); POTASSIUM 3.7 mmol/L (3.5-5.1)
[2017-08-31] MEDS ORDERED: NURSING VERBAL MED ORDER ONE (12:15)
[2017-08-31] MEDS: CEFTRIAXONE SOD INJ 1 GM in DEXTROSE 5% ADD-VANTAGE 50ML 50 ML IV SCH (12:31)
--- NOTE | 2017-08-31 13:37 | Progress Note ---
Subjective Date of Service: Aug 31, 2017. Subjective blood cultures pending, wound with S. aureus, awaiting final. afebrile. tolerating abx. no overnight events. Problem List Medical Problems: (1) DVT of lower extremity, bilateral Status: Acute Objective Vital Signs Date Time Temp Pulse Resp B/P (MAP) Pulse Ox O2 Delivery O2 Flow Rate FiO2 08/31/17 11:49 87 16 98 Room Air 08/31/17 08:00 Room Air 08/31/17 07:31 36.6 68 16 114/73 (87) 94 08/31/17 07:16 72 12 97 Room Air 08/31/17 00:27 Room Air 08/31/17 00:02 36.6 75 18 102/63 (76) 94 Room Air 08/30/17 20:10 Room Air 08/30/17 16:21 36.9 84 18 99/62 (74) 96 Room Air 08/30/17 16:00 Room Air 08/30/17 14:00 36.6 69 16 117/73 (88) 96 Room Air 08/30/17 13:40 36.6 79 19 133/72 Laboratory Results Item Value Date Time Gram Stain - Final Resulted 08/30/17 1440 Ulcer Leg Lower Left Gram Stain - Final Resulted 08/30/17 1440 Ulcer Leg Right Lower Last 24 Hours Test 08/31/17 08:23 White Blood Count 2.94 K/uL Red Blood Count 4.61 M/uL Hemoglobin 14.4 g/dL Hematocrit 43.7 % Mean Corpuscular Volume 94.8 fL Mean Corpuscular Hemoglobin 31.2 pg Mean Corpuscular Hemoglobin Concent 33.0 g/dl Platelet Count 132 K/uL Mean Platelet Volume 10.2 fL Neutrophils (%) (Auto) 65.0 % Lymphocytes (%) (Auto) 23.5 % Monocytes (%) (Auto) 6.8 % Eosinophils (%) (Auto) 3.4 % Basophils (%) (Auto) 1.0 % Neutrophils # (Auto) 1.91 K/uL Lymphocytes # (Auto) 0.69 K/uL Monocytes # (Auto) 0.20 K/uL Eosinophils # (Auto) 0.10 K/uL Basophils # (Auto) 0.03 K/uL RDW Standard Deviation 52.1 fL RDW Coefficient of Variation 15.1 % Immature Granulocyte % (Auto) 0.3 % Immature Granulocyte # (Auto) 0.01 K/uL Sodium Level 137 mmol/L Potassium Level 3.7 mmol/L Chloride Level 106 mmol/L Carbon Dioxide Level 26 mmol/L Anion Gap 5.0 mmol/L Blood Urea Nitrogen 6 mg/dl Creatinine 0.79 mg/dl Est Creatinine Clear Calc Drug Dose 136.3 ml/min Estimated GFR () 127.5 Estimated GFR (Non- 110.0 BUN/Creatinine Ratio 8.1 Random Glucose 121 mg/dl Calcium Level 8.8 mg/dl Assessment and Plan (1) Cellulitis Assessment & Plan: continue abx, additional recs based on final culture
--- NOTE | 2017-08-31 14:46 | Wound Consultation: Inpatient ---
Wound Consultation Date of Consultation: Aug 31, 2017. Attending Physician: Jeromy Melgar DO Reason for Consultation: Cellulitis and ulcerations bilateral lower extremities History of Present Illness Patient was admitted to [facility] yesterday for further evaluation and treatment ongoing cellulitis with associated venous stasis ulcerations to both lower extremities. Patient states he had a recent flareup over the past week with increased swelling and redness. Patient also complains of significant pain in both legs of the ulcerative sites. Patient states that he has been treated in the past for this and we have seen him. Patient currently denies any significant pain at rest. Patient denies a fever chills or night sweats. Patient denies any chest pain shortness of breath abdominal discomfort nausea or vomiting. Patient denies any other systemic complaints at this time. Patient does state that he was treated recently with the use of Silvadene as well as a moisturizing ointment. Family History Hypercoagulability MOTHER Social History Smoking Status: Current Every Day Smoker (0.5ppd (decreased from 1ppd) x 15 years) Smokeless Tobacco Use: No Alcohol Use: Denies ETOH use x 3 weeks, usually drinks 2 beers and 1 shot once a week. (previously heavy drinker, stopped 12/2016 as on probation) Drug Use: none Marital Status: single Allergies Coded Allergies: Pea (Unverified Allergy, Unknown, ., 08/30/17) Sulfamethoxazole w/Trimethoprim (Unverified Allergy, Unknown, hives, ) Home Medications Scheduled Budesonide/Formoterol Fumarate (Symbicort 160/4.5 Inhaler ), 2 PUFFS INH BID Docusate Sodium (Colace), 100 MG PO BID Folic Acid (Folic Acid), 1 MG PO DAILY Multiple Vitamin (Multivitamin), 1 TAB PO DAILY Omeprazole (Prilosec), 20 MG PO BID Rivaroxaban (Xarelto), 1 TAB PO DAILY Thiamine HCl (Vitamin B-1), 100 MG PO DAILY Tiotropium [place] (Spiriva Handihaler), 1 CAP INH DAILY Trazodone HCl (Trazodone HCl), 1 TAB PO HS Scheduled PRN Albuterol Hfa (Ventolin Hfa), 2 PUFFS INH Q6H PRN for SOB/Wheezing Oxycodone/Acetaminophen 5MG/325MG (Percocet 5MG/325MG), 1 TABLET PO Q8 PRN for Pain Inpatient Medications Current Inpatient Medications Medications (Trade) Dose Ordered Sig/Ilia Route Start Time Stop Time Status Last Admin Dose Admin Acetaminophen (Tylenol Tab) 650 mg Q4H PRN PO 08/30/17 12:30 09/29/17 12:29 Polyethylene (Miralax Powder Packet) 17 gm DAILY PRN PO 08/30/17 12:30 09/29/17 12:29 Ondansetron HCl (Zofran Inj) 4 mg Q6H PRN IV 08/30/17 12:30 09/29/17 12:29 Rivaroxaban (Xarelto Tab) 15 mg BID PO 08/30/17 20:00 09/20/17 08:01 08/31/17 08:42 15 MG Budesonide/ Formoterol Fumarate (Symbicort 160/ 4.5 Inh) 2 puffs BID INH 08/30/17 20:00 09/29/17 20:59 08/31/17 08:40 2 PUFFS Docusate Sodium (coLACE CAP) 100 mg BID PO 08/30/17 20:00 09/29/17 20:59 08/31/17 08:40 100 MG Folic Acid (Folvite Tab) 1 mg DAILY PO 08/31/17 08:00 09/30/17 08:59 08/31/17 08:40 1 MG Multivitamins (Multivitamin Tab) 1 tab DAILY PO 08/31/17 08:00 09/30/17 08:59 08/31/17 08:41 1 TAB Thiamine HCl (Vitamin B-1 Tab) 100 mg DAILY PO 08/31/17 08:00 09/30/17 08:59 08/31/17 08:41 100 MG Tiotropium [place] (Spiriva Handihaler Inhaler) 1 puff DAILY INH 08/31/17 08:00 09/30/17 08:59 08/31/17 08:39 1 PUFF Pantoprazole Sodium (Protonix Tab) 40 mg BID PO 08/30/17 20:00 09/29/17 20:59 08/31/17 08:41 40 MG Trazodone HCl (Desyrel Tab) 150 mg HS PO 08/30/17 21:00 09/29/17 20:59 08/30/17 19:38 150 MG Albuterol/ Ipratropium (Duoneb) 3 ml QIDR INH 08/30/17 12:45 09/29/17 12:44 08/31/17 11:48 3 ML Nicotine (Nicoderm Cq 14MG Patch) 1 patch QAM TD 08/30/17 12:45 09/29/17 12:44 08/31/17 08:43 1 PATCH Miscellaneous (Remove Nicoderm Patch) 1 ea HS N/A 08/30/17 21:00 09/29/17 20:59 Ceftriaxone Sodium 1 gm/ Dextrose 50 ml @ 100 mls/hr Q24H IV 08/31/17 12:30 09/10/17 12:29 08/31/17 12:31 100 MLS/HR Albuterol/ Ipratropium (Duoneb) 3 ml Q2H PRN INH 08/30/17 15:00 09/29/17 14:59 Vancomycin HCl 1250 mg/Sodium Chloride 275 ml @ 125 mls/hr Q12H IV 08/31/17 01:00 09/09/17 23:59 08/31/17 13:53 125 MLS/HR Vancomycin HCl (Consult) 1 ea UD PRN N/A 08/30/17 15:15 09/29/17 15:14 Oxycodone/ Acetaminophen (Percocet 5-325mg Tab) 1 tab Q6H PRN PO 08/30/17 20:15 09/13/17 12:44 08/31/17 08:42 1 TAB Collagenase (Santyl Oint) 1 appln DAILY EXT 08/31/17 13:00 09/30/17 12:59 Physical Exam Date Time Temp Pulse Resp B/P (MAP) Pulse Ox O2 Delivery O2 Flow Rate FiO2 08/31/17 14:28 36.6 73 16 119/78 (92) 96 08/31/17 11:49 87 16 98 Room Air 08/31/17 08:00 Room Air 08/31/17 07:31 36.6 68 16 114/73 (87) 94 08/31/17 07:16 72 12 97 Room Air 08/31/17 00:27 Room Air 08/31/17 00:02 36.6 75 18 102/63 (76) 94 Room Air 08/30/17 20:10 Room Air 08/30/17 16:21 36.9 84 18 99/62 (74) 96 Room Air 08/30/17 16:00 Room Air General: The patient is lying in a hospital bed in no distress. Alert, cooperative and appropriate to all questions. HEENT: Pupils equal and reactive to light. Sclera clear, EOM intact. Neck: Supple, No JVD noted Chest: CTA in all johnson. No deformity Heart: RRR without murmurs, S3, S4, thrills, rubs or heaves Extremities: Both lower extremities demonstrate significant brawny induration with +1 edema. There is marked multiple ulcerations present on both lower extremities along with significant eschar formation. Left lower extremity ulcerations measure 2 x 2 x 0.1 cm and 3 x 3.5 x 0.2 cm. The right lower extremity ulcerations medical measure 1.6 x 4 x 0.2 cm 6 x 2 x 0.2 cm and 4.7 x 2 x 0.2 cm. There is some slough as well as eschar formation the base is noted. There is tenderness to palpation throughout. There is no active drainage or odor noted. Range of motion appears to be intact. Neurological: Alert and oriented x3. No focal deficits. Skin: No rashes, papules, vesicles, excoriations Laboratory Results Last 24 Hours Test 08/31/17 08:23 White Blood Count 2.94 K/uL Red Blood Count 4.61 M/uL Hemoglobin 14.4 g/dL Hematocrit 43.7 % Mean Corpuscular Volume 94.8 fL Mean Corpuscular Hemoglobin 31.2 pg Mean Corpuscular Hemoglobin Concent 33.0 g/dl Platelet Count 132 K/uL Mean Platelet Volume 10.2 fL Neutrophils (%) (Auto) 65.0 % Lymphocytes (%) (Auto) 23.5 % Monocytes (%) (Auto) 6.8 % Eosinophils (%) (Auto) 3.4 % Basophils (%) (Auto) 1.0 % Neutrophils # (Auto) 1.91 K/uL Lymphocytes # (Auto) 0.69 K/uL Monocytes # (Auto) 0.20 K/uL Eosinophils # (Auto) 0.10 K/uL Basophils # (Auto) 0.03 K/uL RDW Standard Deviation 52.1 fL RDW Coefficient of Variation 15.1 % Immature Granulocyte % (Auto) 0.3 % Immature Granulocyte # (Auto) 0.01 K/uL Sodium Level 137 mmol/L Potassium Level 3.7 mmol/L Chloride Level 106 mmol/L Carbon Dioxide Level 26 mmol/L Anion Gap 5.0 mmol/L Blood Urea Nitrogen 6 mg/dl Creatinine 0.79 mg/dl Est Creatinine Clear Calc Drug Dose 136.3 ml/min Estimated GFR () 127.5 Estimated GFR (Non- 110.0 BUN/Creatinine Ratio 8.1 Random Glucose 121 mg/dl Calcium Level 8.8 mg/dl Assessment & Plan Assessment: Bilateral venous stasis ulcerations with associated cellulitis of the lower extremity Plan: Due to the discomfort at this time debridement is deferred. The sites of be dressed with Santyl and gauze of the ulcerative areas and a moisturizing cream throughout to help loosen the associated eschar formation. Dressings will be changed on a daily basis. Patient continue to be monitored and evaluated during admission. Anticipate debridement in a emanuel from the next 2-4 days. Patient will continue his current antibiotic therapy as directed.
[2017-08-31] MEDS: COLLAGENASE OINT 30 GM TUBE EXT SCH (15:52)
--- NOTE | 2017-08-31 18:41 | Progress Note ---
Subjective Date of Service: Aug 31, 2017. Subjective Pt evaluation today including: conversation w/ patient, physical exam, lab review, review of studies, review of inpatient medication list Saw/examined the patient in room 415 He's doing okay today, no fevers/chills to note lower extremity pain was increased today, wound care could not perform debridement currently lower extremities are dressed Denies chest pain/shortness of breath c/o lack of appetite Problem List Medical Problems: (1) DVT of lower extremity, bilateral Status: Acute Review of Systems Constitutional: No fever, No chills, No weakness Respiratory: No shortness of breath Cardiac: No chest pain Abdomen: + problem reported (decreased appetite), No pain, No nausea, No vomiting, No diarrhea Musculoskeletal: + joint pain, + muscle pain, + swelling, + problem reported ( lower extremity pain) Heme: No abnormal bleeding/bruising Medications Current Inpatient Medications Medications (Trade) Dose Ordered Sig/Ilia Route Start Time Stop Time Status Last Admin Dose Admin Acetaminophen (Tylenol Tab) 650 mg Q4H PRN PO 08/30/17 12:30 09/29/17 12:29 Polyethylene (Miralax Powder Packet) 17 gm DAILY PRN PO 08/30/17 12:30 09/29/17 12:29 Ondansetron HCl (Zofran Inj) 4 mg Q6H PRN IV 08/30/17 12:30 09/29/17 12:29 Rivaroxaban (Xarelto Tab) 15 mg BID PO 08/30/17 20:00 09/20/17 08:01 08/31/17 08:42 15 MG Budesonide/ Formoterol Fumarate (Symbicort 160/ 4.5 Inh) 2 puffs BID INH 08/30/17 20:00 09/29/17 20:59 08/31/17 08:40 2 PUFFS Docusate Sodium (coLACE CAP) 100 mg BID PO 08/30/17 20:00 09/29/17 20:59 08/31/17 08:40 100 MG Folic Acid (Folvite Tab) 1 mg DAILY PO 08/31/17 08:00 09/30/17 08:59 08/31/17 08:40 1 MG Thiamine HCl (Vitamin B-1 Tab) 100 mg DAILY PO 08/31/17 08:00 2/3/18 08:59 08/31/17 08:41 100 MG Tiotropium [place] (Spiriva Handihaler Inhaler) 1 puff DAILY INH 08/31/17 08:00 09/30/17 08:59 08/31/17 08:39 1 PUFF Pantoprazole Sodium (Protonix Tab) 40 mg BID PO 08/30/17 20:00 09/29/17 20:59 08/31/17 08:41 40 MG Trazodone HCl (Desyrel Tab) 150 mg HS PO 08/30/17 21:00 09/29/17 20:59 08/30/17 19:38 150 MG Albuterol/ Ipratropium (Duoneb) 3 ml QIDR INH 08/30/17 12:45 09/29/17 12:44 08/31/17 15:03 3 ML Nicotine (Nicoderm Cq 14MG Patch) 1 patch QAM TD 08/30/17 12:45 09/29/17 12:44 08/31/17 08:43 1 PATCH Miscellaneous (Remove Nicoderm Patch) 1 ea HS N/A 08/30/17 21:00 09/29/17 20:59 Ceftriaxone Sodium 1 gm/ Dextrose 50 ml @ 100 mls/hr Q24H IV 08/31/17 12:30 09/10/17 12:29 08/31/17 12:31 100 MLS/HR Albuterol/ Ipratropium (Duoneb) 3 ml Q2H PRN INH 08/30/17 15:00 09/29/17 14:59 Vancomycin HCl 1250 mg/Sodium Chloride 275 ml @ 125 mls/hr Q12H IV 08/31/17 01:00 09/09/17 23:59 08/31/17 13:53 125 MLS/HR Vancomycin HCl (Consult) 1 ea UD PRN N/A 08/30/17 15:15 09/29/17 15:14 Collagenase (Santyl Oint) 1 appln DAILY EXT 08/31/17 13:00 09/30/17 12:59 08/31/17 15:52 1 APPLN Enteral Nutritional Formula (Boost) 1 can TIDM PO 08/31/17 17:00 09/30/17 16:59 Multivitamins/ Minerals (Multivitamin W/ Minerals Tab) 1 tab QAM PO 09/01/17 08:00 10/01/17 07:59 Zinc Sulfate (Zinc Sulfate Cap) 220 mg QAM PO 09/01/17 08:00 10/01/17 07:59 Oxycodone/ Acetaminophen (Percocet 5-325mg Tab) 2 tab Q6H PRN PO 08/31/17 17:45 09/13/17 12:44 Objective Vital Signs Date Time Temp Pulse Resp B/P (MAP) Pulse Ox O2 Delivery O2 Flow Rate FiO2 08/31/17 16:00 Room Air 08/31/17 15:05 76 16 98 Room Air 08/31/17 14:28 36.6 73 16 119/78 (92) 96 08/31/17 11:49 87 16 98 Room Air 08/31/17 08:00 Room Air 08/31/17 07:31 36.6 68 16 114/73 (87) 94 08/31/17 07:16 72 12 97 Room Air 08/31/17 00:27 Room Air 08/31/17 00:02 36.6 75 18 102/63 (76) 94 Room Air 08/30/17 20:10 Room Air Physical Exam General Appearance: no apparent distress Respiratory/Chest: lungs clear, normal breath sounds, no respiratory distress, no accessory muscle use Cardiovascular: regular rate, rhythm, no edema, no murmur Extremities: + pertinent finding (lower extremities dressed; erythema/swelling/ tenderness persist) Neurologic/Psychiatric: no motor/sensory deficits, alert, normal mood/affect Laboratory Results Last 24 Hours Test 08/31/17 08:23 White Blood Count 2.94 K/uL Red Blood Count 4.61 M/uL Hemoglobin 14.4 g/dL Hematocrit 43.7 % Mean Corpuscular Volume 94.8 fL Mean Corpuscular Hemoglobin 31.2 pg Mean Corpuscular Hemoglobin Concent 33.0 g/dl Platelet Count 132 K/uL Mean Platelet Volume 10.2 fL Neutrophils (%) (Auto) 65.0 % Lymphocytes (%) (Auto) 23.5 % Monocytes (%) (Auto) 6.8 % Eosinophils (%) (Auto) 3.4 % Basophils (%) (Auto) 1.0 % Neutrophils # (Auto) 1.91 K/uL Lymphocytes # (Auto) 0.69 K/uL Monocytes # (Auto) 0.20 K/uL Eosinophils # (Auto) 0.10 K/uL Basophils # (Auto) 0.03 K/uL RDW Standard Deviation 52.1 fL RDW Coefficient of Variation 15.1 % Immature Granulocyte % (Auto) 0.3 % Immature Granulocyte # (Auto) 0.01 K/uL Sodium Level 137 mmol/L Potassium Level 3.7 mmol/L Chloride Level 106 mmol/L Carbon Dioxide Level 26 mmol/L Anion Gap 5.0 mmol/L Blood Urea Nitrogen 6 mg/dl Creatinine 0.79 mg/dl Est Creatinine Clear Calc Drug Dose 136.3 ml/min Estimated GFR () 127.5 Estimated GFR (Non- 110.0 BUN/Creatinine Ratio 8.1 Random Glucose 121 mg/dl Calcium Level 8.8 mg/dl Assessment and Plan ACUTE ON CHRONIC DVT BILATERAL LOWER EXTREMITIES 08/31 secondary to non-compliance as patient stopped taking Xarelto will restart Xarelto at 15mg BID dosing for now, and then switch to 20mg daily after 21 days wound care to see the patient for cellulitis continue Vanco and Rocephin for now cultures growing staph aureus - further speciation pending changed Percocet to 10mg q6 for now added multivitamin w/ minerals and zinc sulfate for wound healing 1/ Pt with hx hypercoaguopathy (unknown type, pt reports workup in [place]) and chronic DVT on anticoagulation, however stopped using past 2 weeks and pt presented with increased discomfort and edema LE. Venous doppler today in ER: Acute bilateral deep venous thrombosis considered rather extensive bilaterally. Acute superficial thrombophlebitis bilaterally. Findings of chronic venous scarring are again noted with all acute findings superimposed upon these pre- existing venous changes. -Restart xarelto CELLULITIS, CHRONIC LE WOUNDS, CHRONIC VENOUS STASIS Pt with chronic LE wounds with increased erythema past week. Afebrile, no leukocytosis. -wound cultures ordered -pending blood cultures -consult ID -consult wound physician -vancomycin IV -Rocephin IV -CBC, PRP in am COPD Pt with wheezing on exam. CXR:chronic emphysema changes, intersitial changes throughout, no focal infiltrate noted. Afebrile. Denies increased cough or sputum. He doesn't feel he needs steroids at this time, will continue to monitor and consider adding if needed -duonebs -continue Spiriva -continue Symbicort TOBACCO ABUSE -nicotine patch -smoking cessation counseling GERD -continue PPI CHRONIC LEG PAIN on percocet prn -continue percocet. Will avoid IV pain medicines at this time HX ETOH ABUSE IN PAST pt denies ETOH use in weeks -continue thiamine -continue multivitamin -continue folic acid INSOMNIA -continue trazodone HS prn insomnia DVT PROPHYLAXIS -Pt with active DVT- Started on Xarelto DISPOSITION -admit med/surg -Full Code -Follows with Antonio Jo PA-C for routine care Pt was seen with Dr Melgar. See addendum
[2017-08-31] MEDS: TRAZODONE HCL 100 MG TAB PO SCH (20:04)
[2017-08-31] MEDS: BOOST VANILLA PO SCH (20:05)
[2017-09-01] VITALS (8 sets, daily range): BP systolic 115–138; BP diastolic 71–84; PULSE 71–81; TEMP 36.5–36.8; O2SAT 95–98
[2017-09-01] MEDS: VANCOMYCIN INJ 1,250 MG in SODIUM CHLORIDE 0.9% 250ML 250 ML IV SCH ×2 (02:28→13:34)
[2017-09-01] MEDS: OXYCODONE/ACETAMINOPHEN 5-325 TAB PO PRN ×3 (02:55→15:40)
[2017-09-01] MEDS: ALBUT/IPRATROP 3MG/0.5MG NEB 3 ML VIAL INH SCH ×4 (06:58→18:07)
[2017-09-01] MEDS: COLLAGENASE OINT 30 GM TUBE EXT SCH (08:09)
[2017-09-01] MEDS: BUDESONIDE/FORMOTEROL FUMARATE 160/4.5 60 PUFFS/INHALER INH SCH ×2 (08:10→21:02)
[2017-09-01] MEDS: PANTOprazole SOD 40 MG TAB PO SCH ×2 (08:10→21:02)
[2017-09-01] MEDS: ZINC SULFATE 220 MG CAP PO SCH (08:10)
[2017-09-01] MEDS: RIVAROXABAN TAB 15 MG TAB PO SCH ×2 (08:10→21:03)
[2017-09-01] MEDS: CEROVITE ADV FORMULA TAB PO SCH (08:10)
[2017-09-01] MEDS: TIOTROPIUM BROMIDE 5 PUFF/90 MCG INH INH SCH (08:11)
[2017-09-01] MEDS: DOCUSATE SODIUM 100 MG CAP PO SCH ×2 (08:11→21:02)
[2017-09-01] MEDS: THIAMINE HCL 100 MG TAB PO SCH (08:12)
[2017-09-01] MEDS: BOOST VANILLA PO SCH ×3 (08:12→17:25)
[2017-09-01] MEDS: NICOTINE 14 MG/24 HR TDSY TD SCH (08:16)
[2017-09-01 09:27] LABS: CREATININE 0.75 mg/dl (0.60-1.40)
--- NOTE | 2017-09-01 11:12 | Progress Note ---
Subjective Date of Service: Sep 01, 2017. Subjective Pt evaluation today including: conversation w/ patient, physical exam, chart review, lab review pt seen in followup, doing well. tolerating abx. blood cultures negative, wound with MRSA. toleraitng abx. states he is to have debridement next week, and then follow at wound center. all rmeaining ros reviewed and are negative. Problem List Medical Problems: (1) DVT of lower extremity, bilateral Status: Acute Objective Vital Signs Date Time Temp Pulse Resp B/P (MAP) Pulse Ox O2 Delivery O2 Flow Rate FiO2 09/01/17 08:00 Room Air 09/01/17 07:54 36.6 75 16 116/78 (91) 96 09/01/17 06:59 73 16 97 Room Air 09/01/17 00:44 36.7 71 18 115/71 (86) 95 Room Air 09/01/17 00:00 Room Air 08/31/17 20:10 76 16 98 Room Air 08/31/17 20:00 Room Air 08/31/17 16:00 Room Air 08/31/17 15:05 76 16 98 Room Air 08/31/17 14:28 36.6 73 16 119/78 (92) 96 08/31/17 11:49 87 16 98 Room Air Physical Exam General Appearance: WD/WN, no apparent distress Eyes: normal inspection, PERRL Neck: supple Respiratory/Chest: lungs clear, normal breath sounds, no respiratory distress Cardiovascular: regular rate, rhythm, no edema Abdomen: non tender, soft Extremities: non-tender, no pedal edema Neurologic/Psychiatric: no motor/sensory deficits, oriented x 3 Skin: normal color Comments: b/l le dressing c/d/i Laboratory Results Item Value Date Time Gram Stain - Final Complete 08/30/17 1440 Ulcer Leg Right Lower Gram Stain - Final Resulted 08/30/17 1440 Ulcer Leg Lower Left Blood Culture - Preliminary Resulted 08/30/17 0957 Blood NO GROWTH TO DATE. Blood Culture - Preliminary Resulted 08/30/17 0942 Blood NO GROWTH TO DATE. Last 24 Hours Test 09/01/17 08:14 Creatinine 0.75 mg/dl Est Creatinine Clear Calc Drug Dose 143.6 ml/min Estimated GFR () 130.2 Estimated GFR (Non- 112.4 Assessment and Plan (1) Cellulitis Assessment & Plan: continue vanco for now, upon d/c change to po doxy 100mg po bid with food, will need prolonged course. can follow with ID at wound center as well.
[2017-09-01] MEDS ORDERED: VANCOMYCIN TROUGH ONE (12:30)
[2017-09-01] MEDS: CEFTRIAXONE SOD INJ 1 GM in DEXTROSE 5% ADD-VANTAGE 50ML 50 ML IV SCH (12:52)
[2017-09-01] MEDS: AMMONIUM LACTATE 12% LOTION 225 GM BTL EXT SCH (12:53)
--- NOTE | 2017-09-01 14:03 | Pharmacy Progress Note ---
Pharmacy Abx Dose Short Note Date of Service Sep 01, 2017. Assessment & Plan Assessment 42 year old male receiving Vancomycin/Rocephin IV for treatment of cellulitis. Day # 3 of antimicrobial therapy. ID following. Blood cultures negative to date. Wound cultures showing MRSA X 2. Plan Vancomycin * Trough level of 16.4 mcg/mL is therapeutic. * Continue dose of 1250 mg IV every 12 hours. * Goal trough level for MRSA cellulitis: 15 to 20 mcg/mL * Repeat trough level should be ordered in 3-4 days if patient remains admitted on IV antibiotics or there is a change in renal function etc. Pharmacy will continue to follow and will adjust dose/frequency as necessary. Thank you.
--- NOTE | 2017-09-01 17:46 | Progress Note ---
Subjective Date of Service: Sep 01, 2017. Subjective Pt evaluation today including: conversation w/ patient, physical exam, lab review, review of studies, review of inpatient medication list Saw/examined the patient in room 415 lower extremity pain is improving currently is dressed No fevers/chills, improving PO intake Problem List Medical Problems: (1) DVT of lower extremity, bilateral Status: Acute Review of Systems Constitutional: No fever, No chills, No weakness Respiratory: No shortness of breath Cardiac: No chest pain Musculoskeletal: + joint pain (lower extremity pain) Medications Current Inpatient Medications Medications (Trade) Dose Ordered Sig/Ilia Route Start Time Stop Time Status Last Admin Dose Admin Acetaminophen (Tylenol Tab) 650 mg Q4H PRN PO 08/30/17 12:30 09/29/17 12:29 Polyethylene (Miralax Powder Packet) 17 gm DAILY PRN PO 08/30/17 12:30 09/29/17 12:29 Ondansetron HCl (Zofran Inj) 4 mg Q6H PRN IV 08/30/17 12:30 09/29/17 12:29 Rivaroxaban (Xarelto Tab) 15 mg BID PO 08/30/17 20:00 09/20/17 08:01 09/01/17 08:10 15 MG Budesonide/ Formoterol Fumarate (Symbicort 160/ 4.5 Inh) 2 puffs BID INH 08/30/17 20:00 09/29/17 20:59 09/01/17 08:10 2 PUFFS Docusate Sodium (coLACE CAP) 100 mg BID PO 08/30/17 20:00 09/29/17 20:59 09/01/17 08:11 100 MG Folic Acid (Folvite Tab) 1 mg DAILY PO 08/31/17 08:00 09/30/17 08:59 09/01/17 08:12 1 MG Thiamine HCl (Vitamin B-1 Tab) 100 mg DAILY PO 08/31/17 08:00 09/30/17 08:59 09/01/17 08:12 100 MG Tiotropium [place] (Spiriva Handihaler Inhaler) 1 puff DAILY INH 08/31/17 08:00 09/30/17 08:59 09/01/17 08:11 1 PUFF Pantoprazole Sodium (Protonix Tab) 40 mg BID PO 08/30/17 20:00 09/29/17 20:59 09/01/17 08:10 40 MG Trazodone HCl (Desyrel Tab) 150 mg HS PO 08/30/17 21:00 09/29/17 20:59 08/31/17 20:04 150 MG Albuterol/ Ipratropium (Duoneb) 3 ml QIDR INH 08/30/17 12:45 09/29/17 12:44 09/01/17 15:31 3 ML Nicotine (Nicoderm Cq 14MG Patch) 1 patch QAM TD 08/30/17 12:45 09/29/17 12:44 09/01/17 08:16 1 PATCH Miscellaneous (Remove Nicoderm Patch) 1 ea HS N/A 08/30/17 21:00 09/29/17 20:59 Albuterol/ Ipratropium (Duoneb) 3 ml Q2H PRN INH 08/30/17 15:00 09/29/17 14:59 Vancomycin HCl 1250 mg/Sodium Chloride 275 ml @ 125 mls/hr Q12H IV 08/31/17 01:00 09/09/17 23:59 09/01/17 13:34 125 MLS/HR Vancomycin HCl (Consult) 1 ea UD PRN N/A 08/30/17 15:15 09/29/17 15:14 Collagenase (Santyl Oint) 1 appln DAILY EXT 08/31/17 13:00 09/30/17 12:59 09/01/17 08:09 1 APPLN Enteral Nutritional Formula (Boost) 1 can TIDM PO 08/31/17 17:00 09/30/17 16:59 09/01/17 17:25 1 CAN Multivitamins/ Minerals (Multivitamin W/ Minerals Tab) 1 tab QAM PO 09/01/17 08:00 10/01/17 07:59 09/01/17 08:10 1 TAB Zinc Sulfate (Zinc Sulfate Cap) 220 mg QAM PO 09/01/17 08:00 10/01/17 07:59 09/01/17 08:10 220 MG Oxycodone/ Acetaminophen (Percocet 5-325mg Tab) 2 tab Q6H PRN PO 08/31/17 17:45 09/13/17 12:44 09/01/17 15:40 2 TAB Ammonium Lactate (Lac-Hydrin) 1 appl DAILY EXT 09/01/17 10:00 10/01/17 09:59 09/01/17 12:53 1 APPL Objective Vital Signs Date Time Temp Pulse Resp B/P (MAP) Pulse Ox O2 Delivery O2 Flow Rate FiO2 09/01/17 16:57 Room Air 09/01/17 15:59 36.5 77 20 117/71 (86) 97 Room Air 09/01/17 15:32 73 16 95 Room Air 09/01/17 11:10 73 16 95 Room Air 09/01/17 08:00 Room Air 09/01/17 07:54 36.6 75 16 116/78 (91) 96 09/01/17 06:59 73 16 97 Room Air 09/01/17 00:44 36.7 71 18 115/71 (86) 95 Room Air 09/01/17 00:00 Room Air 08/31/17 20:10 76 16 98 Room Air 08/31/17 20:00 Room Air Physical Exam General Appearance: no apparent distress Respiratory/Chest: lungs clear, normal breath sounds, no respiratory distress, no accessory muscle use Cardiovascular: regular rate, rhythm, no edema, no gallop, no JVD, no murmur Extremities: + pertinent finding (lower extremity swelling, ulcerations, currently dressed) Laboratory Results Last 24 Hours Test 09/01/17 08:14 09/01/17 12:24 Creatinine 0.75 mg/dl Est Creatinine Clear Calc Drug Dose 143.6 ml/min Estimated GFR () 130.2 Estimated GFR (Non- 112.4 Vancomycin Level Trough 16.4 mcg/ml Assessment and Plan ACUTE ON CHRONIC DVT BILATERAL LOWER EXTREMITIES 09/01 continue Xarelto, 15mg BID for 21 days total, then 20mg daily can do Vancomycin while inpatient; growing MRSA switch to doxy on discharge, appreciate ID input continue multivitamin w/ minerals and zinc wound care for possible I&D 08/31 secondary to non-compliance as patient stopped taking Xarelto will restart Xarelto at 15mg BID dosing for now, and then switch to 20mg daily after 21 days wound care to see the patient for cellulitis continue Vanco and Rocephin for now cultures growing staph aureus - further speciation pending changed Percocet to 10mg q6 for now added multivitamin w/ minerals and zinc sulfate for wound healing 1/3 Pt with hx hypercoaguopathy (unknown type, pt reports workup in [facility] [place]) and chronic DVT on anticoagulation, however stopped using past 2 weeks and pt presented with increased discomfort and edema LE. Venous doppler today in ER: Acute bilateral deep venous thrombosis considered rather extensive bilaterally. Acute superficial thrombophlebitis bilaterally. Findings of chronic venous scarring are again noted with all acute findings superimposed upon these pre- existing venous changes. -Restart xarelto CELLULITIS, CHRONIC LE WOUNDS, CHRONIC VENOUS STASIS Pt with chronic LE wounds with increased erythema past week. Afebrile, no leukocytosis. -wound cultures ordered -pending blood cultures -consult ID -consult wound physician -vancomycin IV -Rocephin IV -CBC, PRP in am COPD Pt with wheezing on exam. CXR:chronic emphysema changes, intersitial changes throughout, no focal infiltrate noted. Afebrile. Denies increased cough or sputum. He doesn't feel he needs steroids at this time, will continue to monitor and consider adding if needed -duonebs -continue Spiriva -continue Symbicort TOBACCO ABUSE -nicotine patch -smoking cessation counseling GERD -continue PPI CHRONIC LEG PAIN on percocet prn -continue percocet. Will avoid IV pain medicines at this time HX ETOH ABUSE IN PAST pt denies ETOH use in weeks -continue thiamine -continue multivitamin -continue folic acid INSOMNIA -continue trazodone HS prn insomnia DVT PROPHYLAXIS -Pt with active DVT- Started on Xarelto DISPOSITION -admit med/surg -Full Code -Follows with Antonio Jo PA-C for routine care Pt was seen with Dr Melgar. See addendum
[2017-09-01] MEDS: TRAZODONE HCL 100 MG TAB PO SCH (21:03)
[2017-09-02] VITALS (7 sets, daily range): BP systolic 125–128; BP diastolic 76–79; PULSE 72–88; TEMP 36.4–36.7; O2SAT 94–98
[2017-09-02] MEDS: OXYCODONE/ACETAMINOPHEN 5-325 TAB PO PRN ×4 (00:41→21:32)
[2017-09-02] MEDS: VANCOMYCIN INJ 1,250 MG in SODIUM CHLORIDE 0.9% 250ML 250 ML IV SCH ×2 (00:41→12:55)
[2017-09-02 07:15] LABS: HEMATOCRIT 41.9 % (42-52); HEMOGLOBIN 13.5 g/dL (14.0-18.0); MEAN CELL VOLUME 94.6 fL (80-100); MEAN CORPUSCULAR HEMOGLOBIN 30.5 pg (25-34); MEAN CORPUSCULAR HGB CONC 32.2 g/dl (32-36); MEAN PLATELET VOLUME 10.2 fL (7.4-10.4); PLATELET COUNT 141 K/uL (130-400); RED CELL DISTRIBUTION WIDTH CV 15.2 % (11.5-14.5); RED CELL DISTRIBUTION WIDTH SD 52.9 fL (36.4-46.3); WHITE BLOOD COUNT 3.73 K/uL (4.8-10.8)
[2017-09-02] MEDS: ALBUT/IPRATROP 3MG/0.5MG NEB 3 ML VIAL INH SCH ×4 (07:36→20:00)
[2017-09-02 07:47] LABS: CALCIUM 8.9 mg/dl (8.5-10.1); CREATININE 0.72 mg/dl (0.60-1.40); POTASSIUM 3.9 mmol/L (3.5-5.1)
[2017-09-02] MEDS: BUDESONIDE/FORMOTEROL FUMARATE 160/4.5 60 PUFFS/INHALER INH SCH ×2 (08:03→20:27)
[2017-09-02] MEDS: RIVAROXABAN TAB 15 MG TAB PO SCH ×2 (08:03→20:28)
[2017-09-02] MEDS: TIOTROPIUM BROMIDE 5 PUFF/90 MCG INH INH SCH (08:03)
[2017-09-02] MEDS: ZINC SULFATE 220 MG CAP PO SCH (08:03)
[2017-09-02] MEDS: NICOTINE 14 MG/24 HR TDSY TD SCH (08:03)
[2017-09-02] MEDS: DOCUSATE SODIUM 100 MG CAP PO SCH ×2 (08:03→20:28)
[2017-09-02] MEDS: BOOST VANILLA PO SCH ×3 (08:03→15:33)
[2017-09-02] MEDS: PANTOprazole SOD 40 MG TAB PO SCH ×2 (08:03→20:28)
[2017-09-02] MEDS: THIAMINE HCL 100 MG TAB PO SCH (08:03)
[2017-09-02] MEDS: CEROVITE ADV FORMULA TAB PO SCH (08:03)
[2017-09-02] MEDS: COLLAGENASE OINT 30 GM TUBE EXT SCH (08:04)
[2017-09-02] MEDS: AMMONIUM LACTATE 12% LOTION 225 GM BTL EXT SCH (08:05)
--- NOTE | 2017-09-02 17:26 | Progress Note ---
Subjective Date of Service: Sep 02, 2017. Subjective Pt evaluation today including: conversation w/ patient, physical exam, lab review, review of studies, review of inpatient medication list Saw/examined the patient in room 415 No fevers/chills Pain persists in the lower extremities Problem List Medical Problems: (1) DVT of lower extremity, bilateral Status: Acute Review of Systems Constitutional: No fever, No chills Respiratory: No shortness of breath Cardiac: No chest pain Musculoskeletal: + muscle pain Medications Current Inpatient Medications Medications (Trade) Dose Ordered Sig/Ilia Route Start Time Stop Time Status Last Admin Dose Admin Acetaminophen (Tylenol Tab) 650 mg Q4H PRN PO 08/30/17 12:30 09/29/17 12:29 Polyethylene (Miralax Powder Packet) 17 gm DAILY PRN PO 08/30/17 12:30 09/29/17 12:29 Ondansetron HCl (Zofran Inj) 4 mg Q6H PRN IV 08/30/17 12:30 09/29/17 12:29 Rivaroxaban (Xarelto Tab) 15 mg BID PO 08/30/17 20:00 09/20/17 08:01 09/02/17 08:03 15 MG Budesonide/ Formoterol Fumarate (Symbicort 160/ 4.5 Inh) 2 puffs BID INH 08/30/17 20:00 09/29/17 20:59 09/02/17 08:03 2 PUFFS Docusate Sodium (coLACE CAP) 100 mg BID PO 08/30/17 20:00 09/29/17 20:59 09/02/17 08:03 100 MG Folic Acid (Folvite Tab) 1 mg DAILY PO 08/31/17 08:00 09/30/17 08:59 09/02/17 08:03 1 MG Thiamine HCl (Vitamin B-1 Tab) 100 mg DAILY PO 08/31/17 08:00 09/30/17 08:59 09/02/17 08:03 100 MG Tiotropium [place] (Spiriva Handihaler Inhaler) 1 puff DAILY INH 08/31/17 08:00 09/30/17 08:59 09/02/17 08:03 1 PUFF Pantoprazole Sodium (Protonix Tab) 40 mg BID PO 08/30/17 20:00 09/29/17 20:59 09/02/17 08:03 40 MG Trazodone HCl (Desyrel Tab) 150 mg HS PO 08/30/17 21:00 09/29/17 20:59 09/01/17 21:03 150 MG Albuterol/ Ipratropium (Duoneb) 3 ml QIDR INH 08/30/17 12:45 09/29/17 12:44 09/02/17 15:27 3 ML Nicotine (Nicoderm Cq 14MG Patch) 1 patch QAM TD 08/30/17 12:45 09/29/17 12:44 09/02/17 08:03 1 PATCH Miscellaneous (Remove Nicoderm Patch) 1 ea HS N/A 08/30/17 21:00 09/29/17 20:59 Albuterol/ Ipratropium (Duoneb) 3 ml Q2H PRN INH 08/30/17 15:00 09/29/17 14:59 Vancomycin HCl 1250 mg/Sodium Chloride 275 ml @ 125 mls/hr Q12H IV 08/31/17 01:00 09/09/17 23:59 09/02/17 12:55 125 MLS/HR Vancomycin HCl (Consult) 1 ea UD PRN N/A 08/30/17 15:15 09/29/17 15:14 Collagenase (Santyl Oint) 1 appln DAILY EXT 08/31/17 13:00 09/30/17 12:59 09/02/17 08:04 1 APPLN Enteral Nutritional Formula (Boost) 1 can TIDM PO 08/31/17 17:00 09/30/17 16:59 09/02/17 15:33 1 CAN Multivitamins/ Minerals (Multivitamin W/ Minerals Tab) 1 tab QAM PO 09/01/17 08:00 10/01/17 07:59 09/02/17 08:03 1 TAB Zinc Sulfate (Zinc Sulfate Cap) 220 mg QAM PO 09/01/17 08:00 10/01/17 07:59 09/02/17 08:03 220 MG Oxycodone/ Acetaminophen (Percocet 5-325mg Tab) 2 tab Q6H PRN PO 08/31/17 17:45 09/13/17 12:44 09/02/17 15:22 2 TAB Ammonium Lactate (Lac-Hydrin) 1 appl DAILY EXT 09/01/17 10:00 10/01/17 09:59 09/02/17 08:05 1 APPL Objective Vital Signs Date Time Temp Pulse Resp B/P (MAP) Pulse Ox O2 Delivery O2 Flow Rate FiO2 09/02/17 15:27 84 16 98 Room Air 09/02/17 15:16 Room Air 09/02/17 15:13 36.7 72 18 128/79 (95) 98 09/02/17 11:24 88 16 98 Room Air 09/02/17 08:30 Room Air 09/02/17 07:36 80 16 98 Room Air 09/02/17 07:28 36.4 78 20 127/79 (95) 94 Room Air 09/02/17 00:00 Room Air 09/01/17 23:53 36.8 75 18 138/84 (102) 96 Room Air 09/01/17 18:07 81 16 98 Room Air Physical Exam General Appearance: no apparent distress Respiratory/Chest: lungs clear, normal breath sounds, no respiratory distress, no accessory muscle use Cardiovascular: regular rate, rhythm, no edema, no murmur Extremities: + pertinent finding (lower extremities with ulcerations noted during dressing change; peripheral vascular discoloration) Neurologic/Psychiatric: no motor/sensory deficits, alert, normal mood/affect Laboratory Results Last 24 Hours Test 09/02/17 06:57 White Blood Count 3.73 K/uL Red Blood Count 4.43 M/uL Hemoglobin 13.5 g/dL Hematocrit 41.9 % Mean Corpuscular Volume 94.6 fL Mean Corpuscular Hemoglobin 30.5 pg Mean Corpuscular Hemoglobin Concent 32.2 g/dl RDW Standard Deviation 52.9 fL RDW Coefficient of Variation 15.2 % Platelet Count 141 K/uL Mean Platelet Volume 10.2 fL Sodium Level 136 mmol/L Potassium Level 3.9 mmol/L Chloride Level 106 mmol/L Carbon Dioxide Level 24 mmol/L Anion Gap 6.0 mmol/L Blood Urea Nitrogen 7 mg/dl Creatinine 0.72 mg/dl Est Creatinine Clear Calc Drug Dose 149.5 ml/min Estimated GFR () 132.4 Estimated GFR (Non- 114.3 BUN/Creatinine Ratio 9.2 Random Glucose 119 mg/dl Calcium Level 8.9 mg/dl Magnesium Level 2.3 mg/dl Assessment and Plan ACUTE ON CHRONIC DVT BILATERAL LOWER EXTREMITIES 09/02 continue Xarelto 15mg BID continue Vanco and Doxyc on discharge awaiting wound care for possible I & D or possible d/c in 1-2 days 09/01 continue Xarelto, 15mg BID for 21 days total, then 20mg daily can do Vancomycin while inpatient; growing MRSA switch to doxy on discharge, appreciate ID input continue multivitamin w/ minerals and zinc wound care for possible I&D 08/31 secondary to non-compliance as patient stopped taking Xarelto will restart Xarelto at 15mg BID dosing for now, and then switch to 20mg daily after 21 days wound care to see the patient for cellulitis continue Vanco and Rocephin for now cultures growing staph aureus - further speciation pending changed Percocet to 10mg q6 for now added multivitamin w/ minerals and zinc sulfate for wound healing 08/30 Pt with hx hypercoaguopathy (unknown type, pt reports workup in [place]) and chronic DVT on anticoagulation, however stopped using past 2 weeks and pt presented with increased discomfort and edema LE. Venous doppler today in ER: Acute bilateral deep venous thrombosis considered rather extensive bilaterally. Acute superficial thrombophlebitis bilaterally. Findings of chronic venous scarring are again noted with all acute findings superimposed upon these pre- existing venous changes. -Restart xarelto CELLULITIS, CHRONIC LE WOUNDS, CHRONIC VENOUS STASIS Pt with chronic LE wounds with increased erythema past week. Afebrile, no leukocytosis. -wound cultures ordered -pending blood cultures -consult ID -consult wound physician -vancomycin IV -Rocephin IV -CBC, PRP in am COPD Pt with wheezing on exam. CXR:chronic emphysema changes, intersitial changes throughout, no focal infiltrate noted. Afebrile. Denies increased cough or sputum. He doesn't feel he needs steroids at this time, will continue to monitor and consider adding if needed -duonebs -continue Spiriva -continue Symbicort TOBACCO ABUSE -nicotine patch -smoking cessation counseling GERD -continue PPI CHRONIC LEG PAIN on percocet prn -continue percocet. Will avoid IV pain medicines at this time HX ETOH ABUSE IN PAST pt denies ETOH use in weeks -continue thiamine -continue multivitamin -continue folic acid INSOMNIA -continue trazodone HS prn insomnia DVT PROPHYLAXIS -Pt with active DVT- Started on Xarelto DISPOSITION -admit med/surg -Full Code -Follows with Antonio Jo PA-C for routine care Pt was seen with Dr Melgar. See addendum
[2017-09-02] MEDS: TRAZODONE HCL 100 MG TAB PO SCH (20:29)
[2017-09-03] MEDS: VANCOMYCIN INJ 1,250 MG in SODIUM CHLORIDE 0.9% 250ML 250 ML IV SCH ×2 (01:13→13:02)
[2017-09-03 07:54] VITALS: BP 149/90; PULSE 79; TEMP 36.8; O2SAT 96
[2017-09-03] MEDS: OXYCODONE/ACETAMINOPHEN 5-325 TAB PO PRN ×3 (08:49→22:07)
[2017-09-03] MEDS: BUDESONIDE/FORMOTEROL FUMARATE 160/4.5 60 PUFFS/INHALER INH SCH ×2 (08:50→19:47)
[2017-09-03] MEDS: IPRATROPIUM BROMIDE HFA INHALER INH SCH ×4 (08:50→19:46)
[2017-09-03] MEDS: TIOTROPIUM BROMIDE 5 PUFF/90 MCG INH INH SCH (08:50)
[2017-09-03] MEDS: ALBUTEROL HFA 8 GM INHALER INH SCH ×4 (08:51→19:47)
[2017-09-03] MEDS: THIAMINE HCL 100 MG TAB PO SCH (08:51)
[2017-09-03] MEDS: DOCUSATE SODIUM 100 MG CAP PO SCH ×2 (08:52→19:48)
[2017-09-03] MEDS: PANTOprazole SOD 40 MG TAB PO SCH ×2 (08:52→19:49)
[2017-09-03] MEDS: CEROVITE ADV FORMULA TAB PO SCH (08:52)
[2017-09-03] MEDS: ZINC SULFATE 220 MG CAP PO SCH (08:52)
[2017-09-03] MEDS: RIVAROXABAN TAB 15 MG TAB PO SCH ×2 (08:52→19:49)
[2017-09-03] MEDS: NICOTINE 14 MG/24 HR TDSY TD SCH (08:52)
[2017-09-03] MEDS: BOOST VANILLA PO SCH ×3 (08:54→16:56)
[2017-09-03] MEDS: AMMONIUM LACTATE 12% LOTION 225 GM BTL EXT SCH (09:56)
[2017-09-03] MEDS: COLLAGENASE OINT 30 GM TUBE EXT SCH (09:57)
--- NOTE | 2017-09-03 12:21 | Progress Note ---
Subjective Date of Service: Sep 03, 2017. Subjective Pt evaluation today including: conversation w/ patient, physical exam, lab review, review of studies, review of inpatient medication list Saw/examined the patient in room 415 Lower extremity pain on the R persists swelling has gone down NO fevers/chills, breathing improving Problem List Medical Problems: (1) DVT of lower extremity, bilateral Status: Acute Review of Systems Constitutional: No fever, No chills Respiratory: No shortness of breath Cardiac: No chest pain Abdomen: No pain, No nausea, No vomiting, No diarrhea Musculoskeletal: + joint pain (R LE) Objective Vital Signs Date Time Temp Pulse Resp B/P (MAP) Pulse Ox O2 Delivery O2 Flow Rate FiO2 09/03/17 08:30 Room Air 09/03/17 07:54 36.8 79 18 149/90 (109) 96 09/03/17 00:00 Room Air 09/02/17 23:24 36.4 78 18 125/76 (92) 95 Room Air 09/02/17 20:10 81 14 97 Room Air 09/02/17 20:00 Room Air 09/02/17 15:27 84 16 98 Room Air 09/02/17 15:16 Room Air 09/02/17 15:13 36.7 72 18 128/79 (95) 98 Physical Exam General Appearance: no apparent distress Respiratory/Chest: no respiratory distress, no accessory muscle use, + wheezing (minimal end expiratory wheezing) Cardiovascular: regular rate, rhythm, no edema, no murmur Abdomen: normal bowel sounds, non tender, soft Extremities: + pertinent finding (lower extremities dressed) Assessment and Plan ACUTE ON CHRONIC DVT BILATERAL LOWER EXTREMITIES 09/03 will continue Xarelto, Vancomycin wound care to see patient in 1-2 days d/c home likely on 09/04 with doxycycline 09/02 continue Xarelto 15mg BID continue Vanco and Doxyc on discharge awaiting wound care for possible I & D or possible d/c in 1-2 days 09/01 continue Xarelto, 15mg BID for 21 days total, then 20mg daily can do Vancomycin while inpatient; growing MRSA switch to doxy on discharge, appreciate ID input continue multivitamin w/ minerals and zinc wound care for possible I&D 08/31 secondary to non-compliance as patient stopped taking Xarelto will restart Xarelto at 15mg BID dosing for now, and then switch to 20mg daily after 21 days wound care to see the patient for cellulitis continue Vanco and Rocephin for now cultures growing staph aureus - further speciation pending changed Percocet to 10mg q6 for now added multivitamin w/ minerals and zinc sulfate for wound healing 1/3 Pt with hx hypercoaguopathy (unknown type, pt reports workup in [place]) and chronic DVT on anticoagulation, however stopped using past 2 weeks and pt presented with increased discomfort and edema LE. Venous doppler today in ER: Acute bilateral deep venous thrombosis considered rather extensive bilaterally. Acute superficial thrombophlebitis bilaterally. Findings of chronic venous scarring are again noted with all acute findings superimposed upon these pre- existing venous changes. -Restart xarelto CELLULITIS, CHRONIC LE WOUNDS, CHRONIC VENOUS STASIS Pt with chronic LE wounds with increased erythema past week. Afebrile, no leukocytosis. -wound cultures ordered -pending blood cultures -consult ID -consult wound physician -vancomycin IV -Rocephin IV -CBC, PRP in am COPD Pt with wheezing on exam. CXR:chronic emphysema changes, intersitial changes throughout, no focal infiltrate noted. Afebrile. Denies increased cough or sputum. He doesn't feel he needs steroids at this time, will continue to monitor and consider adding if needed -duonebs -continue Spiriva -continue Symbicort TOBACCO ABUSE -nicotine patch -smoking cessation counseling GERD -continue PPI CHRONIC LEG PAIN on percocet prn -continue percocet. Will avoid IV pain medicines at this time HX ETOH ABUSE IN PAST pt denies ETOH use in weeks -continue thiamine -continue multivitamin -continue folic acid INSOMNIA -continue trazodone HS prn insomnia DVT PROPHYLAXIS -Pt with active DVT- Started on Xarelto DISPOSITION -admit med/surg -Full Code -Follows with Antonio Jo PA-C for routine care Pt was seen with Dr Melgar. See addendum
[2017-09-03 15:55] VITALS: BP 118/73; PULSE 86; TEMP 36.8; O2SAT 96
[2017-09-03 16:00] VITALS: O2SAT 96
[2017-09-03] MEDS: TRAZODONE HCL 100 MG TAB PO SCH (19:49)
[2017-09-03 23:44] VITALS: BP 119/78; PULSE 70; TEMP 36.6; O2SAT 94
[2017-09-04] MEDS: VANCOMYCIN INJ 1,250 MG in SODIUM CHLORIDE 0.9% 250ML 250 ML IV SCH ×2 (01:04→12:57)
[2017-09-04 06:07] LABS: HEMATOCRIT 43.6 % (42-52); HEMOGLOBIN 13.9 g/dL (14.0-18.0); MEAN CORPUSCULAR HGB CONC 31.9 g/dl (32-36); MEAN PLATELET VOLUME 10.1 fL (7.4-10.4); PLATELET COUNT 161 K/uL (130-400); RED CELL DISTRIBUTION WIDTH SD 51.2 fL (36.4-46.3); WHITE BLOOD COUNT 4.39 K/uL (4.8-10.8)
[2017-09-04 06:39] LABS: CALCIUM 9.3 mg/dl (8.5-10.1); CREATININE 0.79 mg/dl (0.60-1.40); POTASSIUM 4.4 mmol/L (3.5-5.1)
[2017-09-04 07:32] VITALS: BP 137/82; PULSE 65; TEMP 36.8; O2SAT 97
[2017-09-04] MEDS: BUDESONIDE/FORMOTEROL FUMARATE 160/4.5 60 PUFFS/INHALER INH SCH (07:34)
[2017-09-04] MEDS: IPRATROPIUM BROMIDE HFA INHALER INH SCH ×2 (07:34→11:29)
[2017-09-04] MEDS: ALBUTEROL HFA 8 GM INHALER INH SCH ×2 (07:35→11:29)
[2017-09-04] MEDS: TIOTROPIUM BROMIDE 5 PUFF/90 MCG INH INH SCH (07:35)
[2017-09-04] MEDS: THIAMINE HCL 100 MG TAB PO SCH (07:35)
[2017-09-04] MEDS: ZINC SULFATE 220 MG CAP PO SCH (07:35)
[2017-09-04] MEDS: RIVAROXABAN TAB 15 MG TAB PO SCH (07:35)
[2017-09-04] MEDS: DOCUSATE SODIUM 100 MG CAP PO SCH (07:36)
[2017-09-04] MEDS: NICOTINE 14 MG/24 HR TDSY TD SCH (07:36)
[2017-09-04] MEDS: CEROVITE ADV FORMULA TAB PO SCH (07:36)
[2017-09-04] MEDS: PANTOprazole SOD 40 MG TAB PO SCH (07:36)
[2017-09-04] MEDS: OXYCODONE/ACETAMINOPHEN 5-325 TAB PO PRN (07:46)
[2017-09-04 08:30] VITALS: O2SAT 97
[2017-09-04] MEDS: BOOST VANILLA PO SCH ×2 (09:09→12:57)
[2017-09-04] MEDS: COLLAGENASE OINT 30 GM TUBE EXT SCH (11:30)
[2017-09-04] MEDS: AMMONIUM LACTATE 12% LOTION 225 GM BTL EXT SCH (11:30)
--- NOTE | 2017-09-04 12:38 | Progress Note ---
Subjective Date of Service: Sep 04, 2017. Subjective Pt evaluation today including: conversation w/ patient, physical exam, lab review, review of studies, review of inpatient medication list Saw/examined the patient in room 415 He is doing well Pain persists, tells me he needs Percocet for home Problem List Medical Problems: (1) DVT of lower extremity, bilateral Status: Acute Review of Systems Constitutional: No fever, No chills Respiratory: No shortness of breath Cardiac: No chest pain Musculoskeletal: + joint pain, + muscle pain Heme: No abnormal bleeding/bruising Medications Current Inpatient Medications Medications (Trade) Dose Ordered Sig/Ilia Route Start Time Stop Time Status Last Admin Dose Admin Acetaminophen (Tylenol Tab) 650 mg Q4H PRN PO 08/30/17 12:30 09/29/17 12:29 Polyethylene (Miralax Powder Packet) 17 gm DAILY PRN PO 08/30/17 12:30 09/29/17 12:29 Ondansetron HCl (Zofran Inj) 4 mg Q6H PRN IV 08/30/17 12:30 09/29/17 12:29 Rivaroxaban (Xarelto Tab) 15 mg BID PO 08/30/17 20:00 09/20/17 08:01 09/04/17 07:35 15 MG Budesonide/ Formoterol Fumarate (Symbicort 160/ 4.5 Inh) 2 puffs BID INH 08/30/17 20:00 09/29/17 20:59 09/04/17 07:34 2 PUFFS Docusate Sodium (coLACE CAP) 100 mg BID PO 08/30/17 20:00 09/29/17 20:59 09/04/17 07:36 100 MG Folic Acid (Folvite Tab) 1 mg DAILY PO 08/31/17 08:00 09/30/17 08:59 09/04/17 07:35 1 MG Thiamine HCl (Vitamin B-1 Tab) 100 mg DAILY PO 08/31/17 08:00 09/30/17 08:59 09/04/17 07:35 100 MG Tiotropium [place] (Spiriva Handihaler Inhaler) 1 puff DAILY INH 08/31/17 08:00 09/30/17 08:59 09/04/17 07:35 1 PUFF Pantoprazole Sodium (Protonix Tab) 40 mg BID PO 08/30/17 20:00 09/29/17 20:59 09/04/17 07:36 40 MG Trazodone HCl (Desyrel Tab) 150 mg HS PO 08/30/17 21:00 09/29/17 20:59 09/03/17 19:49 150 MG Nicotine (Nicoderm Cq 14MG Patch) 1 patch QAM TD 08/30/17 12:45 09/29/17 12:44 09/04/17 07:36 1 PATCH Miscellaneous (Remove Nicoderm Patch) 1 ea HS N/A 08/30/17 21:00 09/29/17 20:59 Albuterol/ Ipratropium (Duoneb) 3 ml Q2H PRN INH 08/30/17 15:00 09/29/17 14:59 Vancomycin HCl 1250 mg/Sodium Chloride 275 ml @ 125 mls/hr Q12H IV 08/31/17 01:00 09/09/17 23:59 09/04/17 01:04 125 MLS/HR Vancomycin HCl (Consult) 1 ea UD PRN N/A 08/30/17 15:15 09/29/17 15:14 Collagenase (Santyl Oint) 1 appln DAILY EXT 08/31/17 13:00 09/30/17 12:59 09/04/17 11:30 1 APPLN Enteral Nutritional Formula (Boost) 1 can TIDM PO 08/31/17 17:00 09/30/17 16:59 09/04/17 09:09 1 CAN Multivitamins/ Minerals (Multivitamin W/ Minerals Tab) 1 tab QAM PO 09/01/17 08:00 10/01/17 07:59 09/04/17 07:36 1 TAB Zinc Sulfate (Zinc Sulfate Cap) 220 mg QAM PO 09/01/17 08:00 10/01/17 07:59 09/04/17 07:35 220 MG Oxycodone/ Acetaminophen (Percocet 5-325mg Tab) 2 tab Q6H PRN PO 08/31/17 17:45 09/13/17 12:44 09/04/17 07:46 2 TAB Ammonium Lactate (Lac-Hydrin) 1 appl DAILY EXT 09/01/17 10:00 10/01/17 09:59 09/04/17 11:30 1 APPL Ipratropium [place] (Atrovent Hfa Inhaler) 2 puffs QID INH 09/03/17 08:00 10/03/17 07:59 09/04/17 11:29 2 PUFFS Albuterol (Ventolin Hfa Inhaler) 2 puffs QID INH 09/03/17 08:00 10/03/17 07:59 09/04/17 11:29 2 PUFFS Objective Vital Signs Date Time Temp Pulse Resp B/P (MAP) Pulse Ox O2 Delivery O2 Flow Rate FiO2 09/04/17 08:30 97 Room Air 09/04/17 07:32 36.8 65 18 137/82 (100) 97 Room Air 09/04/17 00:15 Room Air 09/03/17 23:44 36.6 70 18 119/78 (92) 94 Room Air 09/03/17 16:00 96 Room Air 09/03/17 15:55 36.8 86 18 118/73 (88) 96 Room Air Physical Exam General Appearance: no apparent distress Respiratory/Chest: no respiratory distress, no accessory muscle use Extremities: + swelling, + pertinent finding (lower extremity swelling, erythema, warm) Laboratory Results Last 24 Hours Test 09/04/17 05:50 White Blood Count 4.39 K/uL Red Blood Count 4.64 M/uL Hemoglobin 13.9 g/dL Hematocrit 43.6 % Mean Corpuscular Volume 94.0 fL Mean Corpuscular Hemoglobin 30.0 pg Mean Corpuscular Hemoglobin Concent 31.9 g/dl RDW Standard Deviation 51.2 fL RDW Coefficient of Variation 15.0 % Platelet Count 161 K/uL Mean Platelet Volume 10.1 fL Sodium Level 136 mmol/L Potassium Level 4.4 mmol/L Chloride Level 104 mmol/L Carbon Dioxide Level 27 mmol/L Anion Gap 5.0 mmol/L Blood Urea Nitrogen 9 mg/dl Creatinine 0.79 mg/dl Est Creatinine Clear Calc Drug Dose 136.3 ml/min Estimated GFR () 127.5 Estimated GFR (Non- 110.0 BUN/Creatinine Ratio 10.9 Random Glucose 125 mg/dl Calcium Level 9.3 mg/dl Assessment and Plan ACUTE ON CHRONIC DVT BILATERAL LOWER EXTREMITIES 09/04 plan to d/c today after wound care sees patient d/c on Doxycycline and Xarelto 09/03 will continue Xarelto, Vancomycin wound care to see patient in 1-2 days d/c home likely on 09/04 with doxycycline 09/02 continue Xarelto 15mg BID continue Vanco and Doxyc on discharge awaiting wound care for possible I & D or possible d/c in 1-2 days 09/01 continue Xarelto, 15mg BID for 21 days total, then 20mg daily can do Vancomycin while inpatient; growing MRSA switch to doxy on discharge, appreciate ID input continue multivitamin w/ minerals and zinc wound care for possible I&D 08/31 secondary to non-compliance as patient stopped taking Xarelto will restart Xarelto at 15mg BID dosing for now, and then switch to 20mg daily after 21 days wound care to see the patient for cellulitis continue Vanco and Rocephin for now cultures growing staph aureus - further speciation pending changed Percocet to 10mg q6 for now added multivitamin w/ minerals and zinc sulfate for wound healing 08/30 Pt with hx hypercoaguopathy (unknown type, pt reports workup in [place]) and chronic DVT on anticoagulation, however stopped using past 2 weeks and pt presented with increased discomfort and edema LE. Venous doppler today in ER: Acute bilateral deep venous thrombosis considered rather extensive bilaterally. Acute superficial thrombophlebitis bilaterally. Findings of chronic venous scarring are again noted with all acute findings superimposed upon these pre- existing venous changes. -Restart xarelto CELLULITIS, CHRONIC LE WOUNDS, CHRONIC VENOUS STASIS Pt with chronic LE wounds with increased erythema past week. Afebrile, no leukocytosis. -wound cultures ordered -pending blood cultures -consult ID -consult wound physician -vancomycin IV -Rocephin IV -CBC, PRP in am COPD Pt with wheezing on exam. CXR:chronic emphysema changes, intersitial changes throughout, no focal infiltrate noted. Afebrile. Denies increased cough or sputum. He doesn't feel he needs steroids at this time, will continue to monitor and consider adding if needed -duonebs -continue Spiriva -continue Symbicort TOBACCO ABUSE -nicotine patch -smoking cessation counseling GERD -continue PPI CHRONIC LEG PAIN on percocet prn -continue percocet. Will avoid IV pain medicines at this time HX ETOH ABUSE IN PAST pt denies ETOH use in weeks -continue thiamine -continue multivitamin -continue folic acid INSOMNIA -continue trazodone HS prn insomnia DVT PROPHYLAXIS -Pt with active DVT- Started on Xarelto DISPOSITION -admit med/surg -Full Code -Follows with Antonio Jo PA-C for routine care Pt was seen with Dr Melgar. See addendum
[2017-09-04] MEDS ORDERED: ZNCS220 PO (15:07)
[2017-09-04] MEDS ORDERED: CNT PO (15:07)
[2017-09-04] MEDS ORDERED: SNTO30 EXT (15:07)
[2017-09-04] MEDS ORDERED: NICO14DI5 TD (15:07)
[2017-09-04] MEDS ORDERED: XRL15 PO (15:07)
[2017-09-04] MEDS ORDERED: Enteral Nutrition Formula PO (15:07)
[2017-09-04] MEDS ORDERED: LACT1LOT3 EXT (15:07)
[2017-09-04] MEDS ORDERED: DXY100 PO (15:10)
--- NOTE | 2017-09-04 15:11 | Discharge Instructions ---
Discharge Instructions Date of Service Sep 04, 2017. Admission Reason for Admission: Cellulitis Of Both Lower Extremities, Dvt Discharge Discharge Diagnosis / Problem: Acute DVT, Cellulitis of Bilateral Lower Extremities Discharge Goals Goal(s): Decrease discomfort, Improve function, Diagnostic testing, Therapeutic intervention Activity Recommendations Activity Limitations: resume your previous activity . Instructions / Follow-Up Instructions / Follow-Up Please follow-up with your primary care physician * You will be discharged with Xarelto, take 15mg twice a day for the next 16 days; then switch to 20mg daily * You will also be discharged with Doxycycline (antibiotic) - take this twice daily for at least 6 weeks - follow-up with wound care and Infectious Disease specialists Current Hospital Diet Patient's current hospital diet: Regular Diet Discharge Diet Recommended Diet: Regular Diet Pending Studies Studies pending at discharge: no Medical Emergencies . Who to Call and When: Medical Emergencies: If at any time you feel your situation is an emergency, please call 911 immediately. . Non-Emergent Contact Non-Emergency issues call your: Primary Care Provider . . "Provider Documentation" section prepared by Jeromy Melgar. . VTE Core Measure Inpt VTE Proph given/why not?: Other Anticoagulation PA Drug Monitoring Program Search Results: patient reviewed within database Drug Monitoring Findings: Reviewed patient's drug monitoring database for [place]; he is no longer taking Percocet - seems like he was discharged from pain management.
--- NOTE | 2017-09-04 15:15 | Discharge Summary ---
Discharge Summary Date of Service Sep 04, 2017. Discharge Summary Admission Date: Aug 30, 2017 at 12:27 Discharge Date: Sep 04, 2017 Discharge Disposition: Home Principal Diagnosis: Acute DVT Noncompliance Cellulitis of Wound Ulcerations of bilateral LE Medication Reconciliation New Medications: Doxycycline Hyclate (Doxycycline Hyclate) 100 Mg Cap 100 MG PO BID for 30 Days, #60 TABS Collagenase (Santyl) 250 Unit/Gm Oin 1 APPLN EXT DAILY for 30 Days, #1 TUBE Lactic Acid (Ammonium Lactate) (Amlactin) 12 % Lot 1 APPL EXT DAILY for 30 Days, #1 TUBE Multivitamins/Minerals (Certavite/Antioxidants) 1 Tab Tab 1 TAB PO QAM for 30 Days, #30 TAB Nicotine (Nicoderm Cq 14MG Patch) 14 Mg/24 Hr Dis 14 MG TD QAM for 30 Days, #1 BOX Rivaroxaban (Xarelto) 15 Mg Tab 15 MG PO BID for 16 Days, #32 TAB Zinc Sulfate (Zinc Sulfate) 220 Mg Cap 220 MG PO QAM for 30 Days, #30 CAP [Enteral Nutrition Formula] () 1 CAN LIQD 1 CAN PO TIDM for 30 Days, #90 CAN Continued Medications: Albuterol Hfa (Ventolin Hfa) 200 Puffs/49478 Mcg Aers 2 PUFFS INH Q6H PRN for SOB/Wheezing, INHALER Budesonide/Formoterol Fumarate (Symbicort 160/4.5 Inhaler ) Aero 2 PUFFS INH BID, INHALER Docusate Sodium (Colace) 100 Mg Cap 100 MG PO BID, CAP Folic Acid (Folic Acid) 1 Mg Tab 1 MG PO DAILY, TAB Omeprazole (Prilosec) 20 Mg Capcr 20 MG PO BID, CAP Oxycodone/Acetaminophen 5MG/325MG (Percocet 5MG/325MG) Tab 1 TABLET PO Q8 PRN for Pain, TAB Thiamine HCl (Vitamin B-1) 100 Mg Tab 100 MG PO DAILY, TAB Tiotropium [place] (Spiriva Handihaler) 30 Puff/540 Mcg Aerp 1 CAP INH DAILY for 30 Days, #30 CAP 3 Refills Trazodone HCl (Trazodone HCl) 150 Mg Tab 1 TAB PO HS for Sleep Discontinued Medications: Multiple Vitamin (Multivitamin) 1 Tab Tab 1 TAB PO DAILY for 90 Days, #90 TAB 3 Refills Rivaroxaban (Xarelto) 20 Mg Tab 1 TAB PO DAILY for 30 Days, #30 TAB 11 Refills Admission Information HPI (per Admitting provider): Pt is 42 y/o M with PMH hypercoagulopathy, hx PE, chronic LE DVT, chronic venous stasis with chronic LE wounds, chronic leg pain,COPD who presented to ER with c/o increased R leg pain and swelling. Pt with multiple hospitalizations for cellulitis LE at [facility], last 06/14/17 and reports was on vancomycin and d/c on oral clindamycin. Hx MRSA. hx hospitalization here on 06/20/17 - 06/23/17 for LE wounds and chronic DVT. He was discharged to [facility] with Picc line and on xarelto (as pt was not able to make appts to get his INR checked when he was on coumadin). Pt reports was there for 1 month and d/c home on xarelto 20mg daily. He states ran out and stopped taking it 2 weeks ago as he didn't have transportation. He states that he has coupon for xarelto. (pt on probation from [facility] 12/2016 and reports he is getting his license back this week) . Pt states this week with increased pain to R leg and R thigh and noticed increased swelling bilateral legs. Also noticed increased redness to lower legs and worsening ulcers. He reports ulcers were almost healed when he was d/c from rehab facility. He reports has been doing daily dressing changes to legs. In past followed with [facility] in [place], but hasn't followed with them for over a month due to transportation problems. Feels hot sometimes but unsure if had a fever. Denies chills or diaphoresis, N/V/D/C, SCOTT, dizziness , syncope, vision changes, neck pain, CP, SOB, orthopnea, palpitations, cough, sore throat, choking, otalgia, rhinorrhea, abdominal pain, paresthesias, weakness, other rashes, urinary symptoms. Today in ER U/S LE: acute bilateral DVT, CXR: chronic mild emphysematous changes , no focal infiltrate. No leukocytosis. Afebrile. He was given Rocephin, Vanco, Morphine IV Physical Exam (per Admitting): General Appearance: WD/WN, no apparent distress Head: normocephalic, atraumatic Eyes: normal inspection, PERRL, EOMI, sclerae normal ENT: hearing grossly normal, pharynx normal, + pertinent finding (mucous membranes moist) Neck: supple, no adenopathy, trachea midline Respiratory/Chest: chest non-tender, no respiratory distress, no accessory muscle use, + wheezing (scattered throughout, no rales or rhonchi) Cardiovascular: regular rate, rhythm, no murmur, normal peripheral pulses Abdomen/GI: normal bowel sounds, non tender, soft Extremities/Musculoskelatal: normal range of motion, + pertinent finding ( Bilateral lower extremities with venous stasis changes, dry skin and erythema. Right anterior lower leg with ulcer without discharge. Left anterior lower leg with ulcer without discharge. Diffuse tenderness to palpation bilateral legs, ROM intact, distal pulses intact, sensation to light touch intact. ROM upper extremites intact, non-tender, no edema/erythema, distal pulses intact, brisk capillary refill. sensation to light touch intact) Neurologic/Psych: alert, normal mood/affect, oriented x 3 Skin: + pertinent finding (see extremities) Hospital Course ACUTE ON CHRONIC DVT BILATERAL LOWER EXTREMITIES 09/04 plan to d/c today after wound care sees patient d/c on Doxycycline and Xarelto 09/03 will continue Xarelto, Vancomycin wound care to see patient in 1-2 days d/c home likely on 09/04 with doxycycline 09/02 continue Xarelto 15mg BID continue Vanco and Doxyc on discharge awaiting wound care for possible I & D or possible d/c in 1-2 days 09/01 continue Xarelto, 15mg BID for 21 days total, then 20mg daily can do Vancomycin while inpatient; growing MRSA switch to doxy on discharge, appreciate ID input continue multivitamin w/ minerals and zinc wound care for possible I&D 08/31 secondary to non-compliance as patient stopped taking Xarelto will restart Xarelto at 15mg BID dosing for now, and then switch to 20mg daily after 21 days wound care to see the patient for cellulitis continue Vanco and Rocephin for now cultures growing staph aureus - further speciation pending changed Percocet to 10mg q6 for now added multivitamin w/ minerals and zinc sulfate for wound healing 08/30 Pt with hx hypercoaguopathy (unknown type, pt reports workup in [place]) and chronic DVT on anticoagulation, however stopped using past 2 weeks and pt presented with increased discomfort and edema LE. Venous doppler today in ER: Acute bilateral deep venous thrombosis considered rather extensive bilaterally. Acute superficial thrombophlebitis bilaterally. Findings of chronic venous scarring are again noted with all acute findings superimposed upon these pre- existing venous changes. -Restart xarelto CELLULITIS, CHRONIC LE WOUNDS, CHRONIC VENOUS STASIS Pt with chronic LE wounds with increased erythema past week. Afebrile, no leukocytosis. -wound cultures ordered -pending blood cultures -consult ID -consult wound physician -vancomycin IV -Rocephin IV -CBC, PRP in am COPD Pt with wheezing on exam. CXR:chronic emphysema changes, intersitial changes throughout, no focal infiltrate noted. Afebrile. Denies increased cough or sputum. He doesn't feel he needs steroids at this time, will continue to monitor and consider adding if needed -duonebs -continue Spiriva -continue Symbicort TOBACCO ABUSE -nicotine patch -smoking cessation counseling GERD -continue PPI CHRONIC LEG PAIN on percocet prn -continue percocet. Will avoid IV pain medicines at this time HX ETOH ABUSE IN PAST pt denies ETOH use in weeks -continue thiamine -continue multivitamin -continue folic acid INSOMNIA -continue trazodone HS prn insomnia DVT PROPHYLAXIS -Pt with active DVT- Started on Xarelto DISPOSITION -admit med/surg -Full Code -Follows with Antonio Jo PA-C for routine care Pt was seen with Dr Melgar. See addendum Total time spent on discharge = 45 minutes This includes examination of the patient, discharge planning, medication reconciliation, and communication with other providers. Discharge Instructions Please follow-up with your primary care physician * You will be discharged with Xarelto, take 15mg twice a day for the next 16 days; then switch to 20mg daily * You will also be discharged with Doxycycline (antibiotic) - take this twice daily for at least 6 weeks - follow-up with wound care and Infectious Disease specialists
[2017-09-04 15:25] VITALS: BP 137/84; PULSE 77; TEMP 37.1; O2SAT 97
[2017-09-04 16:07] VITALS: BP 137/84; PULSE 77; TEMP 37.1; O2SAT 97
== END 2017-09-04 16:39 | disposition home or self-care (01) | DRG 300 ==
LOC: C.EDB 08:18 → UNDOADMIN 12:27 → C.4E 12:27 → ENRESERV 13:00
PROVIDERS: ADMIT Family Medicine; ATTEND Family Medicine
DX: I82.413 Acute embolism and thrombosis of femoral vein, bilateral (principal); L03.116 Cellulitis of left lower limb; L03.115 Cellulitis of right lower limb; L97.929 Non-pressure chronic ulcer of unspecified part of left lower leg with unspecified severity; L97.919 Non-pressure chronic ulcer of unspecified part of right lower leg with unspecified severity; D68.59 Other primary thrombophilia; I82.433 Acute embolism and thrombosis of popliteal vein, bilateral; I82.4Z3 Acute embolism and thrombosis of unspecified deep veins of distal lower extremity, bilateral; I82.503 Chronic embolism and thrombosis of unspecified deep veins of lower extremity, bilateral; I82.813 Embolism and thrombosis of superficial veins of lower extremities, bilateral; B95.62 Methicillin resistant Staphylococcus aureus infection as the cause of diseases classified elsewhere; I87.8 Other specified disorders of veins; G89.29 Other chronic pain; M79.606 Pain in leg, unspecified; J43.9 Emphysema, unspecified; F32.9 Major depressive disorder, single episode, unspecified; G47.00 Insomnia, unspecified; F10.11 Alcohol abuse, in remission; F17.210 Nicotine dependence, cigarettes, uncomplicated; Z91.14 Patient's other noncompliance with medication regimen; Z86.711 Personal history of pulmonary embolism; Z79.01 Long term (current) use of anticoagulants; Z79.51 Long term (current) use of inhaled steroids; Z79.899 Other long term (current) drug therapy

== ENCOUNTER 2017-10-30 23:29 | Inpatient (IN) | payer OTHER ==
[~2017-10-30] VITALS: Ht 175.3 cm; Wt 99.4 kg
[~2017-10-30 23:29] MED LIST changes: -ADVIN25/60 INH; +CNT PO; +DSY/150 PO; +DXY100 PO; +Enteral Nutrition Formula PO; +LACT1LOT3 EXT; +NICO14DI5 TD; -PRD20 PO; +SNTO30 EXT; +SYMIN160 INH; -TRAZ100T29 PO; -VANC1INJ94 IV; +ZNCS220 PO
[2017-10-31] MEDS ORDERED: CEFTRIAXONE SOD INJ 1 GM ADDVIAL IV STA (00:17)
[2017-10-31] MEDS ORDERED: KETOROLAC TROMETHAMINE 30 MG/ML VIAL IV STA (00:17)
[2017-10-31] MEDS ORDERED: VANCOMYCIN INJ 2,000 MG in SODIUM CHLORIDE 0.9% 500ML 500 ML IV STA (00:17)
[2017-10-31] MEDS ORDERED: VANCOMYCIN CONSULT ACTIVE PRN (00:30)
[2017-10-31 00:39] LABS: BASO % 0.8 %; BASO ABS # 0.04 K/uL (0-0.2); EOS % 1.5 %; EOS ABS # 0.07 K/uL (0-0.5); HEMATOCRIT 44.2 % (42-52); HEMOGLOBIN 14.9 g/dL (14.0-18.0); IG# 0.01 K/uL (0.00-0.02); LYMPH % 17.9 %; LYMPH ABS # 0.85 K/uL (1.2-3.4); MEAN CELL VOLUME 87.2 fL (80-100); MEAN CORPUSCULAR HEMOGLOBIN 29.4 pg (25-34); MEAN CORPUSCULAR HGB CONC 33.7 g/dl (32-36); MEAN PLATELET VOLUME 9.8 fL (7.4-10.4); MONO % 8.8 %; MONO ABS # 0.42 K/uL (0.11-0.59); NEUT % 70.8 %; NEUT ABS # 3.36 K/uL (1.4-6.5); PLATELET COUNT 171 K/uL (130-400); RED CELL DISTRIBUTION WIDTH CV 14.7 % (11.5-14.5); RED CELL DISTRIBUTION WIDTH SD 46.9 fL (36.4-46.3); WHITE BLOOD COUNT 4.75 K/uL (4.8-10.8)
[2017-10-31 00:57] LABS: ALBUMIN 3.6 gm/dl (3.4-5.0); CALCIUM 8.5 mg/dl (8.5-10.1); CREATININE 0.87 mg/dl (0.60-1.40); POTASSIUM 3.9 mmol/L (3.5-5.1)
[2017-10-31 00:59] LABS: TOTAL PROTEIN 8.8 gm/dl (6.4-8.2)
[2017-10-31] MEDS ORDERED: RIVAROXABAN TAB 15 MG TAB PO STA (04:11)
[2017-10-31] MEDS ORDERED: OXYCODONE/ACETAMINOPHEN 5-325 TAB PO ONE (04:36)
--- NOTE | 2017-10-31 05:05 | EMERGENCY ROOM VISIT NOTE ---
History First contact with patient: 23:56 Chief Complaint: LEG PAIN,LEG INJURY Stated Complaint: INFECTION IN RT LEG History of Present Illness The patient is a 42 year old male who presents to the Emergency Room with complaints of increasing leg pain and swelling for the past few weeks who just was released from [facility] 1 week ago. He states he was incarcerated for 3 weeks. He has not been taking his Xarelto for the past 3 weeks. He has been off antibiotics for 3 weeks. Patient follows with the wound clinic in [place]. He has had history of DVTs and PEs in the past. Patient denies chest pain, dyspnea, fever, chills, myalgias, arthralgias, abdominal pain, nausea, vomiting, diarrhea. Patient denies IV drug abuse. Patient has a history of wound ulcers to the lower legs. Review of Systems An 10 system review of systems was completed with positives and pertinent negatives listed in the HPI. Past Medical/Surgical History Medical Problems: (1) Cellulitis (2) Cellulitis of both lower extremities (3) Chronic deep vein thrombosis (DVT) (4) Chronic ulcer of leg (5) Chronic venous stasis dermatitis of both lower extremities (6) COPD (chronic obstructive pulmonary disease) (7) Deep vein thrombosis (DVT) (8) Depression (9) GERD (gastroesophageal reflux disease) (10) H/O ETOH abuse (11) H/O methicillin resistant Staphylococcus aureus (12) Hypercoagulable state (13) Narcotic dependence (14) Tobacco abuse (15) Venous (peripheral) insufficiency Surgical Problems: (1) History of incision and drainage Family History Hypercoagulability MOTHER Social History Smoking Status: Current Every Day Smoker Drug Use: none Marital Status: single Current/Historical Medications Scheduled Budesonide/Formoterol Fumarate (Symbicort 160/4.5 Inhaler ), 2 PUFFS INH BID Collagenase (Santyl), 1 APPLN EXT DAILY Docusate Sodium (Colace), 100 MG PO BID Doxycycline Hyclate (Doxycycline Hyclate), 100 MG PO BID Folic Acid (Folic Acid), 1 MG PO DAILY Lactic Acid (Ammonium Lactate) (Amlactin), 1 APPL EXT DAILY Multivitamins/Minerals (Certavite/Antioxidants), 1 TAB PO QAM Nicotine (Nicoderm Cq 14MG Patch), 14 MG TD QAM Omeprazole (Prilosec), 20 MG PO BID Rivaroxaban (Xarelto), 15 MG PO BID Thiamine HCl (Vitamin B-1), 100 MG PO DAILY Tiotropium [place] (Spiriva Handihaler), 1 CAP INH DAILY Trazodone HCl (Trazodone HCl), 1 TAB PO HS Zinc Sulfate (Zinc Sulfate), 220 MG PO QAM Scheduled PRN Albuterol Hfa (Ventolin Hfa), 2 PUFFS INH Q6H PRN for SOB/Wheezing Oxycodone/Acetaminophen 5MG/325MG (Percocet 5MG/325MG), 1 TABLET PO Q8 PRN for Pain Physical Exam Vital Signs Date Time Temp Pulse Resp B/P (MAP) Pulse Ox O2 Delivery O2 Flow Rate FiO2 10/31/17 03:45 92 18 114/69 95 Room Air 10/31/17 02:35 101 20 124/63 96 Room Air 10/31/17 00:45 101 18 127/66 95 Room Air 10/30/17 23:45 36.7 119 18 156/94 96 Room Air Physical Exam VITALS: Vitals are noted on the nurse's note and reviewed by myself. Vital signs mildly tachycardic GENERAL: White male unkempt, in no acute distress, nondiaphoretic, well- developed well-nourished. SKIN: Bilateral lower legs erythematous with ulcers to the anterior lower shins that is malodorous and draining concerning for infection. Bilateral inner thighs erythematous and edematous concerning for superficial thrombophlebitis versus DVT. The rest of the skin was without rashes,bruising. There is no tenting of the skin. Capillary reflex less than 2 seconds. HEAD: Normocephalic atraumatic. EARS: External auditory canals clear, tympanic membranes pearly rich without erythema or effusion bilaterally. EYES: Pupils equal round and reactive to light and accommodation. Conjunctivae without injection, sclerae without icterus. Extraocular movements intact. NOSE: Patent, turbinates without inflammation or discharge. MOUTH: Mucous membranes moist. Pharynx without erythema or exudate. Uvula midline. Airway patent. Tongue does not deviate. NECK: Supple without nuchal rigidity. No lymphadenopathy. No thyromegaly. Cervical spine is nontender. No JVD. HEART: Tachycardic rate and rhythm without murmurs gallops or rubs. LUNGS: Clear to auscultation bilaterally without wheezes, rales or rhonchi. No retractions or accessory muscle use. ABDOMEN: Positive bowel sounds x 4. Normal tympanic percussion. Soft, nontender, without masses or organomegaly. Eller sign negative. No guarding or rebound tenderness. No CVA tenderness MUSCULOSKELETAL: No muscle atrophy noted. Bilateral lower legs erythematous with ulcers to the anterior lower shins that is malodorous and draining concerning for infection. Bilateral inner thighs erythematous and edematous concerning for superficial thrombophlebitis versus DVT. Wound cultures were taken and sent to lab. NEURO: Patient was alert and oriented to person place and time. Normal sensation to light and sharp touch. No focal neurological deficits. Medical Decision & Procedures Laboratory Results 10/31/17 00:00 Red Blood Count 5.07, Mean Corpuscular Volume 87.2, Mean Corpuscular Hemoglobin 29.4, Mean Corpuscular Hemoglobin Concent 33.7, Mean Platelet Volume 9.8, Neutrophils (%) (Auto) 70.8, Lymphocytes (%) (Auto) 17.9, Monocytes (%) (Auto) 8.8, Eosinophils (%) (Auto) 1.5, Basophils (%) (Auto) 0.8, Neutrophils # (Auto) 3.36, Lymphocytes # (Auto) 0.85, Monocytes # (Auto) 0.42, Eosinophils # (Auto) 0.07, Basophils # (Auto) 0.04 10/31/17 00:00 Test 10/31/17 00:00 10/31/17 04:45 White Blood Count 4.75 K/uL (4.8-10.8) Red Blood Count 5.07 M/uL (4.7-6.1) Hemoglobin 14.9 g/dL (14.0-18.0) Hematocrit 44.2 % (42-52) Mean Corpuscular Volume 87.2 fL (80-100) Mean Corpuscular Hemoglobin 29.4 pg (25-34) Mean Corpuscular Hemoglobin Concent 33.7 g/dl (32-36) Platelet Count 171 K/uL (130-400) Mean Platelet Volume 9.8 fL (7.4-10.4) Neutrophils (%) (Auto) 70.8 % Lymphocytes (%) (Auto) 17.9 % Monocytes (%) (Auto) 8.8 % Eosinophils (%) (Auto) 1.5 % Basophils (%) (Auto) 0.8 % Neutrophils # (Auto) 3.36 K/uL (1.4-6.5) Lymphocytes # (Auto) 0.85 K/uL (1.2-3.4) Monocytes # (Auto) 0.42 K/uL (0.11-0.59) Eosinophils # (Auto) 0.07 K/uL (0-0.5) Basophils # (Auto) 0.04 K/uL (0-0.2) RDW Standard Deviation 46.9 fL (36.4-46.3) RDW Coefficient of Variation 14.7 % (11.5-14.5) Immature Granulocyte % (Auto) 0.2 % Immature Granulocyte # (Auto) 0.01 K/uL (0.00-0.02) Prothrombin Time 10.2 SECONDS (9.0-12.0) Prothromb Time International Ratio 1.0 (0.9-1.1) Activated Partial Thromboplast Time 25.0 SECONDS (21.0-31.0) Partial Thromboplastin Ratio 1.0 Anion Gap 10.0 mmol/L (3-11) Est Creatinine Clear Calc Drug Dose 129.0 ml/min Estimated GFR () 122.5 Estimated GFR (Non- 105.7 BUN/Creatinine Ratio 9.9 (10-20) Calcium Level 8.5 mg/dl (8.5-10.1) Magnesium Level 2.3 mg/dl (1.8-2.4) Total Bilirubin 0.4 mg/dl (0.2-1) Direct Bilirubin 0.1 mg/dl (0-0.2) Aspartate Amino Transf (AST/SGOT) 26 U/L (15-37) Alanine Aminotransferase (ALT/SGPT) 36 U/L (12-78) Alkaline Phosphatase 102 U/L (45-117) Total Protein 8.8 gm/dl (6.4-8.2) Albumin 3.6 gm/dl (3.4-5.0) Thyroid Stimulating Hormone (TSH) 4.010 uIu/ml (0.300-4.500) Medications Administered Medications (Trade) Dose Ordered Sig/Ilia Route Start Time Stop Time Status Last Admin Dose Admin Ketorolac Tromethamine (Toradol Inj) 15 mg NOW STAT IV 10/31/17 00:17 10/31/17 00:18 DC 10/31/17 00:40 15 MG Ceftriaxone Sodium (Rocephin Inj) 1 gm NOW STAT IV 10/31/17 00:17 10/31/17 00:20 DC 10/31/17 00:40 1 GM Vancomycin HCl 2000 mg/Sodium Chloride 540 ml @ 200 mls/hr ONE STAT IV 10/31/17 00:17 10/31/17 02:58 DC 10/31/17 01:14 200 MLS/HR Rivaroxaban (Xarelto Tab) 15 mg NOW STAT PO 10/31/17 04:11 10/31/17 04:13 DC 10/31/17 04:23 15 MG ED Course Prior records reviewed and summarized as above. Triage Nursing notes reviewed. The patient's history was concerning for swelling and redness of the skin. Differential diagnosis: Etiologies such as cellulitis, abscess, MRSA infection, DVT, necrotizing fasciitis, dermatitis, drug eruption, as well as others were entertained.. Physical examination: As above ER treatment provided: Vancomycin, Rocephin Wound cultures were reviewed from prior visit Wound cultures were also reviewed from prior visit and wounds have increased and redness has progressed concerning for worsening infection On reassessment the patient felt better. Diagnostics interpreted by me: The labs revealed no worrisome leukocytosis, mild hyperglycemia without DKA Imaging studies: Ultrasound was read by stat read of the legs concerning for nonocclusive thrombus of the right and left common femoral vein and superficial femoral veins and popliteal veins Consultation: A consultation was placed with Dr Romero, hospitalist. The case was discussed and diagnostics were reviewed. The patient was evaluated in the ER for further treatment. This appears to be extensive superficial thrombus in bilateral legs with cellulitis. Patient was started on antibiotics. Wound cultures were reviewed. New wound cultures were taken and sent. Patient was restarted on his Xarelto. Medicine was consulted. Patient was neurovascularly and neurologically intact. He had no leukocytosis. He was tolerating fluids. By the evaluation outlined above emergent etiologies such as abscess, necrotizing fasciitis, as well as others were deemed relatively unlikely. The pt informed about the findings as listed above. All questions were answered and pleased with the treatment. Case reviewed with my attending The chart was completed utilizing Dragon Speech voice recognition software. Grammatical errors, random word insertions, pronoun errors, and incomplete sentences are an occassional consequence of this system due to software limitations, ambient noise, and hardware issues. Any formal questions or concerns about the content, text, or information contained within the body of this dictation should be directly addressed to the physician physicians assistant for clarification. Medical Decision As above Medication Reconcilliation Current Medication List: was personally reviewed by me Blood Pressure Screening Patient's blood pressure: Normal blood pressure Impression Primary Impression: Superficial thrombosis of both lower extremities Additional Impressions: Cellulitis of left lower leg Cellulitis of right lower extremity Departure Information Dispostion Being Evaluated By Hospitalist Condition FAIR Referrals No Doctor, Assigned (PCP) Patient Instructions My [facility] Problem Qualifiers
[2017-10-31] MEDS ORDERED: LEVALBUTEROL/IPRATROPIUM NEB INH STA ×2 (05:31)
[2017-10-31 05:35] VITALS: BP 128/69; PULSE 91; TEMP 36.7; O2SAT 96; Ht 175.3 cm; Wt 99.4 kg
[2017-10-31] MEDS ORDERED: PROCHLORPERAZINE INJ 5 MG in SYRINGE 4 ML IV PRN (05:45)
[2017-10-31] MEDS ORDERED: IBUPROFEN 200 MG TAB PO PRN (05:45)
[2017-10-31] MEDS ORDERED: LEVALBUTEROL/IPRATROPIUM NEB INH PRN ×2 (05:45)
[2017-10-31] MEDS ORDERED: ACETAMINOPHEN 325 MG TAB PO PRN (05:45)
[2017-10-31] MEDS ORDERED: LORAZEPAM 2 MG/ML 1 ML VIAL IV PRN (05:45)
[2017-10-31] MEDS ORDERED: LEVALBUTEROL 1.25MG/0.5ML NEB INH STA (05:52)
[2017-10-31] MEDS ORDERED: IPRATROPIUM BROMIDE NEB SOLN 0.02% 2.5 ML VIAL INH STA (05:52)
[2017-10-31] MEDS ORDERED: LEVALBUTEROL 1.25MG/0.5ML NEB INH PRN (06:00)
[2017-10-31] MEDS ORDERED: IPRATROPIUM BROMIDE NEB SOLN 0.02% 2.5 ML VIAL INH PRN (06:00)
[2017-10-31] MEDS ORDERED: NSS + 20MEQ KCL 1000ML 1,000 ML IV ONE (06:00)
[2017-10-31 06:11] LABS: HEMOGLOBIN A1C 5.8 % (4.5-5.6)
[2017-10-31 07:38] VITALS: BP 135/88; PULSE 85; TEMP 36.6; O2SAT 93
--- NOTE | 2017-10-31 08:08 | DIAGNOSTIC IMAGING REPORT ---
ULTRASOUND BILATERAL LOWER EXTREMITY VENOUS CLINICAL HISTORY: Leg pain and swelling. COMPARISON STUDY: Bilateral lower extremity venous ultrasound dated 08/30/2017. TECHNIQUE: Real-time, grayscale, and color Doppler sonography of the deep veins of the right and left lower extremity was performed from the inguinal crease to the calf. Compression and augmentation were utilized. FINDINGS: Right lower extremity: Nonocclusive thrombus is again seen within the common femoral vein, throughout the superficial femoral vein, and within the popliteal vein. Nonocclusive thrombus is also seen in the calf vessels. Superficial thrombus is seen within the profunda femoris vein as well as the greater and lesser saphenous veins. Thrombus is seen within superficial branches of the greater saphenous vein in the right thigh at the site of interest. Left lower extremity: Nonocclusive the venous thrombosis is seen within the left common femoral vein, the left superficial femoral vein, and the left popliteal vein. Nonocclusive thrombus is also seen within the calf veins. Superficial venous thrombus is seen within the profunda femoris vein as was the greater saphenous vein. Thrombus is seen within superficial branches of the greater saphenous vein in the left thigh at the site of interest. Prominent inguinal lymph nodes are likely on a reactive basis and measure up to 2.3 cm in short axis. IMPRESSION: 1. Extensive nonocclusive bilateral deep venous thrombosis as detailed above. This is age indeterminant and may be chronic given the findings on the 08/30/2017 examination. 2. Superficial venous thrombus is present within the thigh bilaterally at the indicated sites of interest. 3. Enlarged inguinal lymph nodes are likely on a reactive basis. Electronically signed by: Emil Morelos M.D. 10/31/2017 8:06 AM Dictated Date/Time: 10/31/2017 8:02 AM
[2017-10-31] MEDS: NICOTINE 14 MG/24 HR TDSY TD SCH (08:20)
[2017-10-31] MEDS: DOXYCYCLINE HYCLATE 100 MG CAP PO SCH ×2 (08:21→20:29)
[2017-10-31] MEDS: THIAMINE HCL 100 MG TAB PO SCH (08:21)
[2017-10-31] MEDS: CEROVITE ADV FORMULA TAB PO SCH (08:22)
[2017-10-31] MEDS: DOCUSATE SODIUM 100 MG CAP PO SCH (08:22)
[2017-10-31] MEDS: BUDESONIDE/FORMOTEROL FUMARATE 160/4.5 60 PUFFS/INHALER INH SCH ×2 (08:23→20:29)
[2017-10-31] MEDS: TIOTROPIUM BROMIDE 5 PUFF/90 MCG INH INH SCH (08:24)
[2017-10-31] MEDS ORDERED: CEFEPIME IV 2,000 MG in DEXTROSE 5% 100ML 100 ML IV ONE (08:45)
[2017-10-31] MEDS ORDERED: CEFEPIME CONSULT ACTIVE PRN (09:15)
[2017-10-31 09:20] LABS: INFLUENZA B ANTIGEN Neg for Influ B (NEG)
--- NOTE | 2017-10-31 09:59 | HISTORY & PHYSICAL EXAMINATION ---
DATE OF ADMISSION: 10/31/2017 PRIMARY CARE DOCTOR: Antonio Jo PA-C. The patient admitted 10/30/2017. CHIEF COMPLAINT: Bilateral leg pain, lumps. HISTORY OF PRESENT ILLNESS: History obtained from patient and records. Medical history significant for mood disorder, hypercoagulable state, (recurrent PE/DVT on Apixaban), narcotic addiction as per records, chronic venous stasis ulcers, ongoing tobacco abuse, past alcohol abuse, history of MRSA, chronic leukopenia as per records. Recent confinement 08/2017 at [facility] for bilateral chronic venous stasis leg ulcers. Patient discharged on Clindamycin. Patient was in nursing home last month for parole violation. Had not been able to take home meds for about a whole week including blood thinner. Patient was discharged home a few weeks ago. This week the patient noted lumps on each thigh, painful. Denies chest pain or shortness of breath. Chronic LE ulcers with drainage not any worse as per patient. No fever, no chills. Patient brought to the Emergency Room. LE venous Dopplers were done which showed extensive and occlusive bilateral DVT, maybe chronic, superficial venous thrombus on the thigh bilaterally. Patient given IV Vancomycin, ceftriaxone for cellulitis. Patient given morning Xarelto at the ER. MEDICAL HISTORY: As above. SURGERIES: Leg debridement procedures. HOME MEDICATIONS: Include Ventolin, Symbicort, Colace, folic acid, Prilosec, Percocet, Spiriva, vitamin B1, trazodone. ALLERGIES: BACTRIM FAMILY HISTORY: Blood clots. PERSONAL AND SOCIAL HISTORY: Half pack daily. Past alcohol abuse as per the patient - he still drinks "but not as bad as before." REVIEW OF SYSTEMS: As per HPI, all 10 systems reviewed, other ROS negative. PHYSICAL EXAMINATION: VITAL SIGNS: Blood pressure was noted to be 114/68, pulse 100, RR 18, temp 37, sats 92 on room air. GENERAL: Noted to be comfortable, no respiratory distress. Unkempt. SKIN: Normal color, warm. HEENT: [place] palpebral conjunctivae. No ptosis. Dry mucosa. NECK: Supple, nontender. CHEST: Occasional wheeze. No tenderness. HEART: Regular rate and rhythm, no murmur. ABDOMEN: Some distention, nontender. EXTREMITIES: Edematous lower extremities with necrotic ulcers, both shins with foul smelling drainage. Minimal LE tenderness. NEUROLOGIC: coherent, no gross focality. LABORATORY DATA: Hemoglobin was noted to be 14.9, white cell count 4.75, platelets noted to be 171. Sodium noted to be 135, potassium 3.9, chloride 106, BUN 9, creatinine 0.8, glucose 121. Initial Gram stain of LE wound CS, moderate gram-positive cocci, few gram- negative bacilli, WBCs. LE Ultrasound initial read as above. ASSESSMENT: 1. Bilateral LE swelling and pain multifactorial : Recurrent LE clots (hx hypercoagulable state on Xarelto. missed Xarelto dosing during recent incarceration) recurrent LE cellulitis secondary to infected chronic venous stasis wounds, no sepsis. (GPC, GNR organisms on preliminary Gram stain results) 2. History narcotic addiction as per records 3. COPD, ongoing tobacco abuse. Baseline wheezing; px states he has flulike symptoms 4. Mood disorder, stable on regimen as per patient 5. Past alcohol abuse as per patient. Patient states he does not drink as much now. 6. Hyperglycemia ro DM PLAN: GMF follow final wound CS. Doxycycline and Cefepime for now. May need ID consult pending CS results availability. Wound care provider consult. RE chronic LE wounds Facilitate Xarelto Nebs as needed Flu swab Social service RE discharge planning. Check hemoglobin A1c. Judicious narcotic use given history of narcotic addiction as per records. Limit patient to home Percocet as needed. DT precautions Nicotine patch. DVT prophylaxis, Xarelto. Full code. MTDD
[2017-10-31] MEDS: CEFEPIME IV 2,000 MG in SYRINGE 7.5 ML IV SCH ×2 (10:59→21:51)
[2017-10-31] MEDS: OXYCODONE/ACETAMINOPHEN 5-325 TAB PO PRN ×2 (11:00→18:04)
[2017-10-31] MEDS ORDERED: NURSING VERBAL MED ORDER ONE (11:15)
[2017-10-31 15:58] VITALS: BP 136/83; PULSE 78; TEMP 36.6; O2SAT 98
[2017-10-31 16:00] VITALS: O2SAT 98
[2017-10-31] MEDS: RIVAROXABAN TAB 15 MG TAB PO SCH (20:29)
[2017-10-31 23:50] VITALS: BP 128/72; PULSE 70; TEMP 36.6; O2SAT 95
[2017-11-01 07:24] LABS: BASO % 0.5 %; BASO ABS # 0.02 K/uL (0-0.2); EOS % 3.9 %; EOS ABS # 0.15 K/uL (0-0.5); HEMATOCRIT 44.2 % (42-52); HEMOGLOBIN 14.9 g/dL (14.0-18.0); LYMPH % 17.1 %; LYMPH ABS # 0.65 K/uL (1.2-3.4); MEAN CELL VOLUME 87.5 fL (80-100); MEAN CORPUSCULAR HEMOGLOBIN 29.5 pg (25-34); MEAN CORPUSCULAR HGB CONC 33.7 g/dl (32-36); MEAN PLATELET VOLUME 9.8 fL (7.4-10.4); MONO % 7.6 %; MONO ABS # 0.29 K/uL (0.11-0.59); NEUT % 70.9 %; NEUT ABS # 2.69 K/uL (1.4-6.5); PLATELET COUNT 153 K/uL (130-400); RED CELL DISTRIBUTION WIDTH CV 14.4 % (11.5-14.5); RED CELL DISTRIBUTION WIDTH SD 46.2 fL (36.4-46.3)
[2017-11-01 07:29] VITALS: BP 146/77; PULSE 82; TEMP 36.4; O2SAT 97
[2017-11-01] MEDS: BUDESONIDE/FORMOTEROL FUMARATE 160/4.5 60 PUFFS/INHALER INH SCH ×2 (08:22→21:07)
[2017-11-01] MEDS: OXYCODONE/ACETAMINOPHEN 5-325 TAB PO PRN ×3 (08:22→23:41)
[2017-11-01] MEDS: TIOTROPIUM BROMIDE 5 PUFF/90 MCG INH INH SCH (08:23)
[2017-11-01] MEDS: CEROVITE ADV FORMULA TAB PO SCH (08:24)
[2017-11-01] MEDS: hydrOXYzine HCL 10 MG TAB PO PRN ×2 (08:24→21:15)
[2017-11-01] MEDS: DOCUSATE SODIUM 100 MG CAP PO SCH (08:24)
[2017-11-01] MEDS: DOXYCYCLINE HYCLATE 100 MG CAP PO SCH ×2 (08:25→21:06)
[2017-11-01] MEDS: NICOTINE 14 MG/24 HR TDSY TD SCH (08:25)
[2017-11-01] MEDS: RIVAROXABAN TAB 15 MG TAB PO SCH ×2 (08:26→21:05)
[2017-11-01] MEDS: THIAMINE HCL 100 MG TAB PO SCH (08:26)
[2017-11-01] MEDS: COLLAGENASE OINT 30 GM TUBE EXT SCH (08:27)
[2017-11-01] MEDS: CEFEPIME IV 2,000 MG in SYRINGE 7.5 ML IV SCH ×2 (10:07→21:05)
--- NOTE | 2017-11-01 12:54 | Wound Consultation: Inpatient ---
Wound Consultation Date of Consultation: Oct 31, 2017. Attending Physician: Dallas Wilkins M.D. Reason for Consultation: Bilateral venous stasis ulcers History of Present Illness Patient was recently admitted to [facility] for further evaluation of ulcerations to his lower extremities. Patient has a recurrent DVT. Patient has a long-standing history of chronic venous insufficiency with venous stasis ulcerations. Patient has been seen in the past during hospitalization for similar occurrence. Patient states that recently the ulcerations were healed back in June of last year but recurred approximately 2 weeks ago. Patient currently denies any significant increased pain or redness. Patient denies any fever chills or night sweats. Patient denies any chest pain or shortness of breath. Patient denies any other systemic complaints. Family History Hypercoagulability MOTHER Social History Smoking Status: Current Every Day Smoker Drug Use: none Marital Status: single Allergies Coded Allergies: Pea (Unverified Allergy, Unknown, ., 10/31/17) Sulfamethoxazole w/Trimethoprim (Unverified Allergy, Unknown, hives, ) Home Medications Scheduled Budesonide/Formoterol Fumarate (Symbicort 160/4.5 Inhaler ), 2 PUFFS INH BID Collagenase (Santyl), 1 APPLN EXT DAILY Docusate Sodium (Colace), 100 MG PO BID Doxycycline Hyclate (Doxycycline Hyclate), 100 MG PO BID Folic Acid (Folic Acid), 1 MG PO DAILY Lactic Acid (Ammonium Lactate) (Amlactin), 1 APPL EXT DAILY Multivitamins/Minerals (Certavite/Antioxidants), 1 TAB PO QAM Nicotine (Nicoderm Cq 14MG Patch), 14 MG TD QAM Omeprazole (Prilosec), 20 MG PO BID Rivaroxaban (Xarelto), 15 MG PO BID Thiamine HCl (Vitamin B-1), 100 MG PO DAILY Tiotropium [place] (Spiriva Handihaler), 1 CAP INH DAILY Trazodone HCl (Trazodone HCl), 1 TAB PO HS Zinc Sulfate (Zinc Sulfate), 220 MG PO QAM Scheduled PRN Albuterol Hfa (Ventolin Hfa), 2 PUFFS INH Q6H PRN for SOB/Wheezing Oxycodone/Acetaminophen 5MG/325MG (Percocet 5MG/325MG), 1 TABLET PO Q8 PRN for Pain Inpatient Medications Current Inpatient Medications Medications (Trade) Dose Ordered Sig/Ilia Route Start Time Stop Time Status Last Admin Dose Admin Oxycodone/ Acetaminophen (Percocet 5-325mg Tab) 1 tab Q6H PRN PO 10/31/17 04:45 11/14/17 04:44 11/01/17 08:22 1 TAB Doxycycline Hyclate (Vibramycin Cap) 100 mg BID PO 10/31/17 08:00 11/10/17 08:59 11/01/17 08:25 100 MG Prochlorperazine Edisylate 5 mg/ Syringe 5 ml @ 5 mls/min Q6H PRN IV 10/31/17 05:45 11/30/17 05:44 Nicotine (Nicoderm Cq 14MG Patch) 1 patch QAM TD 10/31/17 08:00 11/30/17 08:59 11/01/17 08:25 1 PATCH Miscellaneous (Remove Nicoderm Patch) 1 ea HS N/A 10/31/17 21:00 11/30/17 20:59 10/31/17 21:51 1 EA Hydroxyzine HCl (Vistaril Tab) 10 mg Q6H PRN PO 10/31/17 05:45 11/30/17 05:44 11/01/17 08:24 10 MG Budesonide/ Formoterol Fumarate (Symbicort 160/ 4.5 Inh) 2 puffs BID INH 10/31/17 08:00 11/30/17 08:59 11/01/17 08:22 2 PUFFS Docusate Sodium (coLACE CAP) 100 mg DAILY PO 10/31/17 08:00 11/30/17 08:59 11/01/17 08:24 100 MG Folic Acid (Folvite Tab) 1 mg DAILY PO 10/31/17 08:00 11/30/17 08:59 11/01/17 08:27 1 MG Multivitamins/ Minerals (Multivitamin W/ Minerals Tab) 1 tab QAM PO 10/31/17 08:00 11/30/17 08:59 11/01/17 08:24 1 TAB Rivaroxaban (Xarelto Tab) 15 mg BID PO 10/31/17 20:00 11/30/17 20:59 11/01/17 08:26 15 MG Thiamine HCl (Vitamin B-1 Tab) 100 mg DAILY PO 10/31/17 08:00 11/30/17 08:59 11/01/17 08:26 100 MG Tiotropium [place] (Spiriva Handihaler Inhaler) 1 puff DAILY INH 10/31/17 08:00 11/30/17 08:59 11/01/17 08:23 1 PUFF Lorazepam (Ativan Inj) 0.5 mg Q4H PRN IV 10/31/17 05:45 11/30/17 05:44 Acetaminophen (Tylenol Tab) 650 mg Q4H PRN PO 10/31/17 05:45 11/30/17 05:44 Ibuprofen (Advil Tab) 200 mg Q6H PRN PO 10/31/17 05:45 11/30/17 05:44 Ipratropium [place] (Atrovent 0.02% 0.5MG/2.5ML Neb) 0.5 mg Q4H PRN INH 10/31/17 06:00 11/30/17 05:59 Levalbuterol (Xopenex 1.25MG/ 0.5ML Neb) 1.25 mg Q4H PRN INH 10/31/17 06:00 11/30/17 05:59 Cefepime HCl (Consult) 1 ea UD PRN N/A 10/31/17 09:15 11/30/17 09:14 Cefepime HCl 2000 mg/Syringe 20 ml @ 5 mls/min Q12H IV 10/31/17 10:00 11/10/17 09:59 11/01/17 10:07 5 MLS/MIN Collagenase (Santyl Oint) 1 appln DAILY EXT 11/01/17 08:00 12/01/17 07:59 11/01/17 08:27 1 APPLN Physical Exam Date Time Temp Pulse Resp B/P (MAP) Pulse Ox O2 Delivery O2 Flow Rate FiO2 11/01/17 08:15 Room Air 11/01/17 07:29 36.4 82 20 146/77 (100) 97 Room Air 11/01/17 00:40 Room Air 10/31/17 23:50 36.6 70 18 128/72 (90) 95 Room Air 10/31/17 16:00 98 Room Air 10/31/17 15:58 36.6 78 18 136/83 (100) 98 Room Air General: The patient is lying in a hospital bed in no distress. Alert, cooperative and appropriate to all questions. HEENT: Pupils equal and reactive to light. Sclera clear, EOM intact. Neck: Supple, No JVD noted Chest: CTA in all johnson. No deformity Heart: RRR without murmurs, S3, S4, thrills, rubs or heaves Extremities: Bilateral venous stasis ulcerations with chronic venous insufficiency and venous stasis dermatitis noted. Left lower extremity ulcerations measure 9 x 6.5 x 0.1 cm. The right ulcerations measure 10.9 x 6 x 0.1 cm. There is some scattered slough present. No active drainage or odor noted. Distal neurovascular bundles intact. Neurological: Alert and oriented x3. No focal deficits. General Appearance: WD/WN Laboratory Results Last 24 Hours Test 11/01/17 07:09 White Blood Count 3.80 K/uL Red Blood Count 5.05 M/uL Hemoglobin 14.9 g/dL Hematocrit 44.2 % Mean Corpuscular Volume 87.5 fL Mean Corpuscular Hemoglobin 29.5 pg Mean Corpuscular Hemoglobin Concent 33.7 g/dl Platelet Count 153 K/uL Mean Platelet Volume 9.8 fL Neutrophils (%) (Auto) 70.9 % Lymphocytes (%) (Auto) 17.1 % Monocytes (%) (Auto) 7.6 % Eosinophils (%) (Auto) 3.9 % Basophils (%) (Auto) 0.5 % Neutrophils # (Auto) 2.69 K/uL Lymphocytes # (Auto) 0.65 K/uL Monocytes # (Auto) 0.29 K/uL Eosinophils # (Auto) 0.15 K/uL Basophils # (Auto) 0.02 K/uL RDW Standard Deviation 46.2 fL RDW Coefficient of Variation 14.4 % Immature Granulocyte % (Auto) 0.0 % Immature Granulocyte # (Auto) 0.00 K/uL Assessment & Plan Assessment: Bilateral venous stasis ulcerations Chronic venous insufficiency DVT Plan: At this time patient refuses any debridement. The ulcerations will be dressed with Aquacel Ag and gauze changed on a daily basis. Due to the patient' s DVT status for the compression is not indicated. Patient will continue to be monitored during his hospitalization as needed.
--- NOTE | 2017-11-01 13:29 | Progress Note ---
Internal Med Progress Note Date of Service: Nov 01, 2017. Provider Documentation: SUBJECTIVE: The patient was seen and examined Complains of bilateral legs weakness and bilateral leg cellulitis with ulceration Denies any fever or chills Complains of bilateral legs pain OBJECTIVE: Vital Signs-as noted below Exam: General-no distress at rest Eyes-normal ENT-normal Neck-supple Lungs-clear to ausucltate bilaterally Heart-Regular Abdomen-benign,no masses,bowel sound present Extremities-bilateral legs swelling Chronic skin changes bilaterally with necrotic and gangrenous lesions Whole of the victoria of the the legs has black discoloration Deep necrotic ulcerated areas lest about the middle of the shins Minimal drainage and very foul smelling Neuro-AAOx3 Lab data as noted below. ASSESSMENT & PLAN: Bilateral LE swelling and pain Recurrent LE clots (hx hypercoagulable state on Xarelto. missed Xarelto dosing during recent incarceration) Recurrent LE cellulitis secondary to infected chronic venous stasis wounds, no sepsis. (GPC, GNR organisms on preliminary Gram stain results) Has acute on chronic DVT Back on Xarelto Bilateral Legs Cellulitis with Ulceration and probable Gangrene Follow final wound CS. Doxycycline and Cefepime for now. May need ID consult pending CS results availability. Wound care provider consult. RE chronic LE wounds-appreciate Input Growing E Coli and Staph -await sensitivity History narcotic addiction as per records Past alcohol abuse as per patient. Patient states he does not drink as much now. COPD, ongoing tobacco abuse. Baseline wheezing; px states he has flulike symptoms Mood disorder, stable on regimen as per patient DVT-hypercoagulable state Facilitate Xarelto Code Status-Full PT/OT evaluation May need placement Vital Signs: Date Time Temp Pulse Resp B/P (MAP) Pulse Ox O2 Delivery O2 Flow Rate FiO2 11/01/17 08:15 Room Air 11/01/17 07:29 36.4 82 20 146/77 (100) 97 Room Air 11/01/17 00:40 Room Air 10/31/17 23:50 36.6 70 18 128/72 (90) 95 Room Air 10/31/17 16:00 98 Room Air 10/31/17 15:58 36.6 78 18 136/83 (100) 98 Room Air Lab Results: Results Past 24 Hours Test 11/01/17 07:09 Range/Units White Blood Count 3.80 4.8-10.8 K/uL Red Blood Count 5.05 4.7-6.1 M/uL Hemoglobin 14.9 14.0-18.0 g/dL Hematocrit 44.2 42-52 % Mean Corpuscular Volume 87.5 80-100 fL Mean Corpuscular Hemoglobin 29.5 25-34 pg Mean Corpuscular Hemoglobin Concent 33.7 32-36 g/dl Platelet Count 153 130-400 K/uL Mean Platelet Volume 9.8 7.4-10.4 fL Neutrophils (%) (Auto) 70.9 % Lymphocytes (%) (Auto) 17.1 % Monocytes (%) (Auto) 7.6 % Eosinophils (%) (Auto) 3.9 % Basophils (%) (Auto) 0.5 % Neutrophils # (Auto) 2.69 1.4-6.5 K/uL Lymphocytes # (Auto) 0.65 1.2-3.4 K/uL Monocytes # (Auto) 0.29 0.11-0.59 K/uL Eosinophils # (Auto) 0.15 0-0.5 K/uL Basophils # (Auto) 0.02 0-0.2 K/uL RDW Standard Deviation 46.2 36.4-46.3 fL RDW Coefficient of Variation 14.4 11.5-14.5 % Immature Granulocyte % (Auto) 0.0 % Immature Granulocyte # (Auto) 0.00 0.00-0.02 K/uL
[2017-11-01 15:56] VITALS: BP 123/72; PULSE 73; TEMP 36.9; O2SAT 94
[2017-11-01 16:02] VITALS: O2SAT 94
[2017-11-02 00:07] VITALS: BP 131/77; PULSE 65; TEMP 36.6; O2SAT 95
[2017-11-02 07:19] VITALS: BP 117/71; PULSE 74; TEMP 36.7; O2SAT 97
[2017-11-02] MEDS: RIVAROXABAN TAB 15 MG TAB PO SCH ×2 (08:13→21:16)
[2017-11-02] MEDS: TIOTROPIUM BROMIDE 5 PUFF/90 MCG INH INH SCH (08:13)
[2017-11-02] MEDS: CEROVITE ADV FORMULA TAB PO SCH (08:13)
[2017-11-02] MEDS: BUDESONIDE/FORMOTEROL FUMARATE 160/4.5 60 PUFFS/INHALER INH SCH ×2 (08:13→21:16)
[2017-11-02] MEDS: hydrOXYzine HCL 10 MG TAB PO PRN ×3 (08:13→23:48)
[2017-11-02] MEDS: DOCUSATE SODIUM 100 MG CAP PO SCH (08:13)
[2017-11-02] MEDS: DOXYCYCLINE HYCLATE 100 MG CAP PO SCH (08:13)
[2017-11-02] MEDS: OXYCODONE/ACETAMINOPHEN 5-325 TAB PO PRN ×3 (08:13→23:48)
[2017-11-02] MEDS: COLLAGENASE OINT 30 GM TUBE EXT SCH (08:14)
[2017-11-02] MEDS: NICOTINE 14 MG/24 HR TDSY TD SCH (08:15)
[2017-11-02] MEDS: THIAMINE HCL 100 MG TAB PO SCH (08:15)
[2017-11-02] MEDS: CEFEPIME IV 2,000 MG in SYRINGE 7.5 ML IV SCH (10:09)
--- NOTE | 2017-11-02 11:16 | Progress Note ---
Progress Note Date of Service Nov 02, 2017. Progress Note ID Consult Dictated #[id number] A/P: 1. B/L LE ulcerations/cellulitis -Will start vanco and ctx, will need picc, consent obtained -Will need ongoing wound care, currently refusing debridement -Will likely need 4-6 weeks IV abx, likely will need placement -Follow final culture results -Thank you
[2017-11-02] MEDS ORDERED: VANCOMYCIN CONSULT ACTIVE PRN (11:30)
[2017-11-02] MEDS ORDERED: VANCOMYCIN INJ 2,500 MG in SODIUM CHLORIDE 0.9% 500ML 500 ML IV ONE (12:00)
--- NOTE | 2017-11-02 12:14 | Pharmacy Progress Note ---
Pharmacy Abx Initial Consult Date of Service Nov 02, 2017. Pharmacy Dosing Scope Date of Consult: 11/02/17 Consultation requested by: Dr. Acevedo Pharmacy is consulted to initiate Vancomycin IV dosing therapy, order appropriate labs and adjust drug dose/frequency. Subjective The patient is a 42 year old male admitted on Oct 31, 2017 at 04:46 with B/L LE ulcerations/cellulitis for 4-6 weeks IV antibiotic treatment. PICC needed. Ongoing wound care needed, pt currently refusing debridement. Objective Height (Feet): 5 Height (Inches): 9.00 Weight (Kilograms): 99.400 Vital Signs (Past 12Hrs) Vital Signs Past 12 Hours Date Time Temp Pulse Resp B/P (MAP) Pulse Ox O2 Delivery O2 Flow Rate FiO2 11/02/17 08:00 Room Air 11/02/17 07:19 36.7 74 16 117/71 (86) 97 Room Air Lab Results (24Hrs) Item Value Date Time Creatinine 0.87 mg/dl 10/31/17 0000 Est Creatinine Clear Calc Drug Dose 129.0 ml/min 10/31/17 0000 Micro Results Date/Time Source Procedure Growth Status 10/31/17 00:20 Drainage - Surface Leg Right Lower Gram Stain - Final Resulted 10/31/17 00:20 Wound Culture - Preliminary Escherichia Coli Staph. Aureus Mrsa Resulted 10/31/17 00:20 Drainage - Surface Leg Lower Left Gram Stain - Final Complete 10/31/17 00:20 Wound Culture - Final Escherichia Coli Staph. Aureus Mrsa Complete Risk Factors for Resistance Pt treated with the following during this hospital stay: Doxycycline 100mg PO BID 10/31-11/02 IV Cefepime 2g IV Q12H 10/31-11/02 Assessment & Plan Assessment 42 year old male with B/L LE cellulitis/ulcerations requiring 4-6 weeks IV antibiotic therapy. Growing MRSA and EColi, IV Rocephin. Plan Vancomycin for treatment of MRSA Cellulitis/ulcerations B/L LE. Vancomycin IV * Loading dose: 2500 mg (25 mg/kg) * Maintenance dose: 1500 mg IV (15 mg/kg) every 8 hours * Goal trough level 15 to 20 mcg/mL * Trough level ordered for 11/03/17 * May need to increase dosing interval as patient's volume fills, borderline obese Pharmacy will continue to follow and will adjust dose/frequency as necessary. Thank you.
[2017-11-02] MEDS: CEFTRIAXONE SOD INJ 2,000 MG in DEXTROSE 5% 50ML 50 ML IV SCH (12:53)
--- NOTE | 2017-11-02 13:14 | INFECT. DISEASE CONSULTATION ---
DATE OF CONSULTATION: 11/02/2017 HISTORY OF PRESENT ILLNESS: This is a 42-year-old gentleman who was admitted to the hospital with worsening bilateral lower extremity ulcerations. Per the H&P, he was recently evaluated at [facility]. The patient states that he was sent home on clindamycin, that was in August. He does not remember how long course of clindamycin he was taking, but he states he has been off of antibiotics for some time. He also has a history of vascular disease, history of DVT and PE, and should be on anticoagulation; however, per the H&P, he has not been taking his anticoagulation either. There was a brief incarceration for parole violation in the interim since his last hospitalization. 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 He did have bilateral lower extremity cultures obtained on the . They are growing MRSA and E. coli. The MRSA is resistant to oral antibiotics including doxycycline, but is sensitive to vancomycin and daptomycin. He does also have E. coli growing which is resistant to quinolones and penicillins. It is susceptible to Bactrim; however, patient does have a SULFA ALLERGY. It is sensitive to Rocephin and ertapenem and cefepime. He currently is on cefepime and doxycycline. He is afebrile. He does have a history of leukopenia and his white blood cell count is 3.8. He does admit to some fatigue and pain in the lower extremities, right greater than left. He was evaluated by the wound care center yesterday but did refuse any debridement. He is not undergoing any compression of his lower extremities, because ultrasounds that were obtained on admission to have bilateral clots. He currently denies any fevers or chills. He denies any chest pain, cough or shortness of breath. He denies any abdominal pain, nausea, vomiting or diarrhea. His remaining review of systems is unremarkable. PAST MEDICAL HISTORY: Significant for mood disorder, depression, hypercoagulable state with history of PE/DVT, narcotic addiction, venous stasis ulcerations, history of alcohol abuse, and leukopenia. ALLERGIES: He does have ALLERGY TO SULFA ANTIBIOTICS. PAST SURGICAL HISTORY: Significant for lower extremity debridement. FAMILY HISTORY: Noncontributory. SOCIAL HISTORY: Significant for ongoing tobacco use. He does have a history of alcohol use and does occasionally drink alcohol. He does have a history of narcotic abuse. He was recently incarcerated. CURRENT MEDICATIONS: Include Santyl, nicotine patch, Xarelto, cefepime, doxycycline, Symbicort, Colace, folic acid, multivitamin, vitamin B1, Spiriva, Atrovent, Xopenex, Vistaril, Ativan, Tylenol, Advil, and Percocet. PHYSICAL EXAMINATION: VITAL SIGNS: He is afebrile, pulse 74, respiratory rate is 16, blood pressure is 117/71, oxygen saturation is 97% on room air. GENERAL: He is awake, alert and oriented x3. He is in no acute distress. HEENT: Mucous membranes are moist. Extraocular muscles are intact. HEART: Regular. LUNGS: Clear. ABDOMEN: Soft, nontender, nondistended. EXTREMITIES: There are lower extremity dressings bilaterally which are intact. There is minimal erythema and warmth to the right lower extremity. LABORATORY STUDIES: CBC on the 7th reveals a white blood cell count of 3.8, hemoglobin 14.9, platelets 153. Chemistry panel in the ER; sodium 138, potassium 3.9, chloride 106, bicarbonate 22, BUN 9, creatinine 0.8, glucose 121. LFTs are within normal limits. Hemoglobin A1c was 5.8. Flu swab was negative. Cultures are as above. Left lower extremity is growing MRSA and E. coli. The right lower extremity sensitivities for the E. coli on right lower extremity are pending. Dopplers are reviewed as above. ASSESSMENT AND PLAN: Bilateral lower extremity ulcerations with cellulitis. At this time, he will need to be initiated on intravenous antibiotics due to sensitivities and allergies. He will be started on vancomycin and changed to Rocephin. IV team was present during my examination and they were unable to obtain peripheral access. A PICC line will be placed. Consent was obtained from patient. He likely will need a prolonged course of IV antibiotics and he does not feel he would be well suited to do this at home and will likely need rehab placement. He is agreeable to this. Thank you for this consultation.
--- NOTE | 2017-11-02 15:19 | Progress Note ---
Internal Med Progress Note Date of Service: Nov 02, 2017. Provider Documentation: SUBJECTIVE: The patient was seen and examined Complains of bilateral legs weakness and bilateral leg cellulitis with ulceration Denies any fever or chills Complains of bilateral legs pain No fever ,chills but has sweating in the morning OBJECTIVE: Vital Signs-as noted below Exam: General-no distress at rest Eyes-normal ENT-normal Neck-supple Lungs-clear to ausucltate bilaterally Heart-Regular Abdomen-benign,no masses,bowel sound present Extremities-bilateral legs swelling Chronic skin changes bilaterally with necrotic and gangrenous lesions Whole of the victoria of the the legs has black discoloration Deep necrotic ulcerated areas lest about the middle of the shins Minimal drainage and very foul smelling Neuro-AAOx3 Lab data as noted below. ASSESSMENT & PLAN: Bilateral LE swelling and pain Recurrent LE clots (hx hypercoagulable state on Xarelto. missed Xarelto dosing during recent incarceration) Recurrent LE cellulitis secondary to infected chronic venous stasis wounds, no sepsis. (GPC, GNR organisms on preliminary Gram stain results)--MRSA Has acute on chronic DVT Back on Xarelto Bilateral Legs Cellulitis with Ulceration and probable Gangrene Follow final wound CS. Doxycycline and Cefepime for now. May need ID consult pending CS results availability. Wound care provider consult. RE chronic LE wounds-appreciate Input Growing E Coli and Staph -MREA ID consulted and appreciate Input Placed on IV Vanco--- switch over to Ceftriaxone as per ID PICC will be placed and will go to rehab History narcotic addiction as per records Past alcohol abuse as per patient. Patient states he does not drink as much now. COPD, ongoing tobacco abuse. Baseline wheezing; px states he has flulike symptoms Mood disorder, stable on regimen as per patient DVT-hypercoagulable state Facilitate Xarelto Code Status-Full PT/OT evaluation May need placement Vital Signs: Date Time Temp Pulse Resp B/P (MAP) Pulse Ox O2 Delivery O2 Flow Rate FiO2 11/02/17 08:00 Room Air 11/02/17 07:19 36.7 74 16 117/71 (86) 97 Room Air 11/02/17 00:07 36.6 65 18 131/77 (95) 95 Room Air 11/02/17 00:00 Room Air 11/01/17 16:50 Room Air 11/01/17 16:02 94 Room Air 11/01/17 15:56 36.9 73 22 123/72 (89) 94 Room Air
[2017-11-02 16:00] VITALS: BP 143/84; PULSE 68; TEMP 36.7; O2SAT 95
[2017-11-02 16:03] VITALS: O2SAT 94
[2017-11-02] MEDS: VANCOMYCIN INJ 1,500 MG in SODIUM CHLORIDE 0.9% 500ML 500 ML IV SCH (21:17)
[2017-11-03 00:22] VITALS: BP 128/72; PULSE 60; TEMP 36.3; O2SAT 95
[2017-11-03] MEDS: VANCOMYCIN INJ 1,500 MG in SODIUM CHLORIDE 0.9% 500ML 500 ML IV SCH ×2 (04:27→12:19)
[2017-11-03 06:12] LABS: CREATININE 0.65 mg/dl (0.60-1.40)
[2017-11-03] MEDS: THIAMINE HCL 100 MG TAB PO SCH (07:21)
[2017-11-03] MEDS: DOCUSATE SODIUM 100 MG CAP PO SCH (07:21)
[2017-11-03] MEDS: BUDESONIDE/FORMOTEROL FUMARATE 160/4.5 60 PUFFS/INHALER INH SCH (07:21)
[2017-11-03] MEDS: RIVAROXABAN TAB 15 MG TAB PO SCH (07:21)
[2017-11-03] MEDS: CEROVITE ADV FORMULA TAB PO SCH (07:21)
[2017-11-03] MEDS: TIOTROPIUM BROMIDE 5 PUFF/90 MCG INH INH SCH (07:21)
[2017-11-03 07:22] VITALS: BP 155/85; PULSE 69; TEMP 36.7; O2SAT 94
[2017-11-03] MEDS: NICOTINE 14 MG/24 HR TDSY TD SCH (07:22)
[2017-11-03] MEDS: OXYCODONE/ACETAMINOPHEN 5-325 TAB PO PRN (07:22)
[2017-11-03] MEDS: COLLAGENASE OINT 30 GM TUBE EXT SCH (10:00)
--- NOTE | 2017-11-03 11:08 | Progress Note ---
Subjective Date of Service: Nov 03, 2017. Subjective Pt evaluation today including: conversation w/ patient, physical exam, chart review, lab review pt seen in followup, states he would like to be d/c to rehab today. s/p picc line, tolerating abx. wound cultures final. also with clot. states he previously followed at wound center in [place] but his doctor retired and he would like to follow at wound center post d/c. min pain in legs, improved since admission, no f/c.no abd pain, no n/v/d. all remaining ros reviewed and are negative. Problem List Medical Problems: (1) Cellulitis of left lower leg Status: Acute (2) Cellulitis of right lower extremity Status: Acute (3) DVT of lower extremity, bilateral Status: Acute (4) Superficial thrombosis of both lower extremities Status: Acute Objective Vital Signs Date Time Temp Pulse Resp B/P (MAP) Pulse Ox O2 Delivery O2 Flow Rate FiO2 11/03/17 08:00 Room Air 11/03/17 07:22 36.7 69 16 155/85 (108) 94 Room Air 11/03/17 00:22 36.3 60 18 128/72 (90) 95 Room Air 11/03/17 00:00 Room Air 11/02/17 16:03 94 Room Air 11/02/17 16:00 36.7 68 18 143/84 (103) 95 Room Air Physical Exam General Appearance: WD/WN, no apparent distress Eyes: normal inspection, EOMI Neck: supple Respiratory/Chest: lungs clear, normal breath sounds, no respiratory distress Cardiovascular: regular rate, rhythm, no edema Abdomen: soft Extremities: non-tender, no pedal edema, + inflammation, + pedal edema Neurologic/Psychiatric: alert, oriented x 3 Skin: normal color Comments: b/l le dressing c/d/i, changed just prior to my exam, non tender, no drainage. Laboratory Results Item Value Date Time Gram Stain - Final Complete 10/31/17 0020 Drainage - Surface Leg Right Lower Gram Stain - Final Complete 10/31/17 0020 Drainage - Surface Leg Lower Left Last 24 Hours Test 11/03/17 04:50 Creatinine 0.65 mg/dl Est Creatinine Clear Calc Drug Dose 170.4 ml/min Estimated GFR () 138.1 Estimated GFR (Non- 119.2 Assessment and Plan (1) Cellulitis of right lower extremity Assessment & Plan: continue current abx, will need 6 weeks tota, will need weekly cbc, cmp, esr, vanco trough while on therapy - maintain 15-20. can follow with ID at wound center post d/c. ok for d/c from ID standpoint. (2) Cellulitis of left lower leg (3) Superficial thrombosis of both lower extremities
[2017-11-03] MEDS ORDERED: VANCOMYCIN TROUGH ONE (11:30)
[2017-11-03] MEDS: CEFTRIAXONE SOD INJ 2,000 MG in DEXTROSE 5% 50ML 50 ML IV SCH (11:36)
--- NOTE | 2017-11-03 11:55 | Progress Note ---
Internal Med Progress Note Date of Service: Nov 03, 2017. Provider Documentation: SUBJECTIVE: The patient was seen and examined Complains of bilateral legs weakness and bilateral leg cellulitis with ulceration Denies any fever or chills Feels better and ready to go to Rehab Denies any other symptoms OBJECTIVE: Vital Signs-as noted below Exam: General-no distress at rest Eyes-normal ENT-normal Neck-supple Lungs-clear to ausucltate bilaterally Heart-Regular Abdomen-benign,no masses,bowel sound present Extremities-bilateral legs swelling Chronic skin changes bilaterally with necrotic and gangrenous lesions Whole of the victoria of the the legs has black discoloration Deep necrotic ulcerated areas lest about the middle of the shins Minimal drainage and very foul smelling Neuro-AAOx3 Lab data as noted below. ASSESSMENT & PLAN: Bilateral LE swelling and pain Recurrent LE clots (hx hypercoagulable state on Xarelto. missed Xarelto dosing during recent incarceration) Recurrent LE cellulitis secondary to infected chronic venous stasis wounds, no sepsis. (GPC, GNR organisms on preliminary Gram stain results)--MRSA Has acute on chronic DVT Back on Xarelto -advised to continue Xarelto Bilateral Legs Cellulitis with Ulceration and probable Gangrene Follow final wound CS. Doxycycline and Cefepime for now. May need ID consult pending CS results availability. Wound care provider consult. RE chronic LE wounds-appreciate Input Growing E Coli and Staph -MREA ID consulted and appreciate Input Placed on IV Vanco--- switch over to Ceftriaxone as per ID PICC will be placed and will go to rehab Continue Vanco for 6 weeks in total History narcotic addiction as per records Past alcohol abuse as per patient. Patient states he does not drink as much now. COPD, ongoing tobacco abuse. Baseline wheezing; px states he has flulike symptoms Remains asymptomatic Mood disorder, stable on regimen as per patient DVT-hypercoagulable state Facilitate Xarelto Code Status-Full PT/OT evaluation [facility] Vital Signs: Date Time Temp Pulse Resp B/P (MAP) Pulse Ox O2 Delivery O2 Flow Rate FiO2 11/03/17 08:00 Room Air 11/03/17 07:22 36.7 69 16 155/85 (108) 94 Room Air 11/03/17 00:22 36.3 60 18 128/72 (90) 95 Room Air 11/03/17 00:00 Room Air 11/02/17 16:03 94 Room Air 11/02/17 16:00 36.7 68 18 143/84 (103) 95 Room Air Lab Results: Results Past 24 Hours Test 11/03/17 04:50 11/03/17 11:30 Range/Units Creatinine 0.65 0.60-1.40 mg/dl Est Creatinine Clear Calc Drug Dose 170.4 ml/min Estimated GFR () 138.1 Estimated GFR (Non- 119.2
--- NOTE | 2017-11-03 13:07 | Pharmacy Progress Note ---
Pharmacy Abx Dose Short Note Date of Service Nov 03, 2017. Assessment & Plan Assessment 42 year old male receiving vancomycin and Rocephin for treatment of MRSA and E. coli cellulitis Day # 2 of vancomycin and Rocephin therapy, previously on cefepime and po doxycycline Plan Vancomycin * Trough level of 30.6 mcg/mL is supratherapeutic * Est Bebo 0.082 hrs, t1/2 8.5 hrs * Had nurse take down noon dose that had a little less than 1/2 of it infused * Change to 1500 mg IV every 12 hours to start at 2000 tonight - when level expected to be ~18 * Goal trough level for MRSA cellulitis : 15 to 20 mcg/mL * Trough level ordered for: 11/04/17 prior to the 2000 dose - slightly prior to steady state but need to monitor closely for accumulation Pharmacy will continue to follow and will adjust dose/frequency as necessary. Thank you.
[2017-11-03] MEDS ORDERED: LACTCHW3 PO (13:46)
[2017-11-03] MEDS ORDERED: NF1094 IV (13:46)
[2017-11-03] MEDS ORDERED: OXYC-57 PO (13:46)
[2017-11-03] MEDS ORDERED: CEFT1INJ57 IV (13:46)
--- NOTE | 2017-11-03 13:53 | Discharge Instructions ---
Discharge Instructions Date of Service Nov 03, 2017. Admission Reason for Admission: Cellulitis Of Both Lower Extremities Discharge Discharge Diagnosis / Problem: Bilateral Leg cellulitis,MRSA Discharge Goals Goal(s): Prevent Disease Progression Activity Recommendations Activity Level: Assistance Required Therapies: Physical Therapy, Occupational Therapy . Additional Information Patient informed of condition: Yes Advance Directives: No DNR: No Level of Care: Skilled Communicable Disease: No Prognosis: Stable [place] Catheter: No Instructions / Follow-Up Instructions / Follow-Up Please make an appointment with your PCP in 1 week.Weekly cbc, cmp, esr, vanco trough while on therapy - maintain 15-20.Pl report the results to Wound Clinic at [facility],Please make an appointment with the wound clinic in 7 days. Dressing as per wound care instruction. Current Hospital Diet Patient's current hospital diet: Regular Diet Discharge Diet Recommended Diet: Regular Diet Pending Studies Studies pending at discharge: no Laboratory Results Hemoglobin A1c Test 10/31/17 00:00 Range/Units Estimated Average Glucose 120 mg/dl Hemoglobin A1c 5.8 H 4.5-5.6 % Medical Emergencies . Who to Call and When: Medical Emergencies: If at any time you feel your situation is an emergency, please call 911 immediately. . Non-Emergent Contact Non-Emergency issues call your: Primary Care Provider . Past History Medical & Surgical History: (1) Cellulitis of right lower extremity (2) Cellulitis of left lower leg (3) Tobacco abuse (4) Chronic deep vein thrombosis (DVT) (5) Chronic ulcer of leg (6) Venous (peripheral) insufficiency (7) H/O methicillin resistant Staphylococcus aureus (8) COPD (chronic obstructive pulmonary disease) (9) Depression (10) Deep vein thrombosis (DVT) (11) Cellulitis of both lower extremities . "Provider Documentation" section prepared by Dallas Wilkins. . Core Measure Problem Core Measures: VTE (Xarelto) VTE Core Measures VTE Diagnosis: (1) Deep vein thrombosis (DVT) Date of VTE Diagnosis: Oct 31, 2017 Time of VTE Diagnosis: 04:45 Reason no anticoag overlap I/P: Treatment provided - N/A (Xarelto) Reason no anticoag overlap @DC: Treatment provided - N/A
[2017-11-03 14:03] VITALS: BP 155/85; PULSE 69; TEMP 36.7; O2SAT 94
[2017-11-03] MEDS ORDERED: VANCOMYCIN INJ 1,500 MG in SODIUM CHLORIDE 0.9% 500ML 500 ML IV SCH (20:00)
--- NOTE | 2017-11-04 08:00 | Discharge Summary ---
Discharge Summary Date of Service Nov 04, 2017. Discharge Summary Admission Date: Oct 31, 2017 at 04:46 Discharge Date: Nov 03, 2017 Discharge Disposition: [facility] facility Principal Diagnosis: Bilateral Leg cellulitis,MRSA Secondary Diagnoses/Problems: Please see H&P and Hospital Progress note Consultations: ID and Wound Care Medication Reconciliation New Medications: Ceftriaxone Sod (Rocephin) 1 Gm Inj 2 GM IV DAILY for 40 Days, VIAL Lactobacillus (Lactinex) Chw 2 TAB PO TID for 40 Days, CHW Vancomycin HCl (Vancomycin HCl) 100 Mg/Ml Inj 1500 MG IV Q12H for 40 Days Continued Medications: Albuterol Hfa (Ventolin Hfa) 200 Puffs/07218 Mcg Aers 2 PUFFS INH Q6H PRN for SOB/Wheezing, INHALER Budesonide/Formoterol Fumarate (Symbicort 160/4.5 Inhaler ) Aero 2 PUFFS INH BID, INHALER Collagenase (Santyl) 250 Unit/Gm Oin 1 APPLN EXT DAILY for 30 Days, #1 TUBE Docusate Sodium (Colace) 100 Mg Cap 100 MG PO BID, CAP Folic Acid (Folic Acid) 1 Mg Tab 1 MG PO DAILY, TAB Lactic Acid (Ammonium Lactate) (Amlactin) 12 % Lot 1 APPL EXT DAILY for 30 Days, #1 TUBE Multivitamins/Minerals (Certavite/Antioxidants) 1 Tab Tab 1 TAB PO QAM for 30 Days, #30 TAB Nicotine (Nicoderm Cq 14MG Patch) 14 Mg/24 Hr Dis 14 MG TD QAM for 30 Days, #1 BOX Omeprazole (Prilosec) 20 Mg Capcr 20 MG PO BID, CAP Oxycodone/Acetaminophen 5MG/325MG (Percocet 5MG/325MG) Tab 1 TABLET PO Q8 PRN for Pain for 7 Days, #21 TAB (This prescription has been renewed) Rivaroxaban (Xarelto) 15 Mg Tab 15 MG PO BID for 16 Days, #32 TAB Thiamine HCl (Vitamin B-1) 100 Mg Tab 100 MG PO DAILY, TAB Tiotropium [place] (Spiriva Handihaler) 30 Puff/540 Mcg Aerp 1 CAP INH DAILY for 30 Days, #30 CAP 3 Refills Trazodone HCl (Trazodone HCl) 150 Mg Tab 1 TAB PO HS for Sleep Zinc Sulfate (Zinc Sulfate) 220 Mg Cap 220 MG PO QAM for 30 Days, #30 CAP Discontinued Medications: Doxycycline Hyclate (Doxycycline Hyclate) 100 Mg Cap 100 MG PO BID for 30 Days, #60 TABS Admission Information HPI (per Admitting provider): DATE OF ADMISSION: 10/31/2017 PRIMARY CARE DOCTOR: Antonio Jo PA-C. The patient admitted 10/30/2017. CHIEF COMPLAINT: Bilateral leg pain, lumps. HISTORY OF PRESENT ILLNESS: History obtained from patient and records. Medical history significant for mood disorder, hypercoagulable state, (recurrent PE/DVT on Apixaban), narcotic addiction as per records, chronic venous stasis ulcers, ongoing tobacco abuse, past alcohol abuse, history of MRSA, chronic leukopenia as per records. Recent confinement 08/2017 at [facility] for bilateral chronic venous stasis leg ulcers. Patient discharged on Clindamycin. Patient was in senior care last month for parole violation. Had not been able to take home meds for about a whole week including blood thinner. Patient was discharged home a few weeks ago. This week the patient noted lumps on each thigh, painful. Denies chest pain or shortness of breath. Chronic LE ulcers with drainage not any worse as per patient. No fever, no chills. Patient brought to the Emergency Room. LE venous Dopplers were done which showed extensive and occlusive bilateral DVT, maybe chronic, superficial venous thrombus on the thigh bilaterally. Patient given IV Vancomycin, ceftriaxone for cellulitis. Patient given morning Xarelto at the ER. MEDICAL HISTORY: As above. SURGERIES: Leg debridement procedures. HOME MEDICATIONS: Include Ventolin, Symbicort, Colace, folic acid, Prilosec, Percocet, Spiriva, vitamin B1, trazodone. ALLERGIES: BACTRIM FAMILY HISTORY: Blood clots. PERSONAL AND SOCIAL HISTORY: Half pack daily. Past alcohol abuse as per the patient - he still drinks "but not as bad as before." REVIEW OF SYSTEMS: As per HPI, all 10 systems reviewed, other ROS negative. PHYSICAL EXAMINATION: VITAL SIGNS: Blood pressure was noted to be 114/68, pulse 100, RR 18, temp 37, sats 92 on room air. GENERAL: Noted to be comfortable, no respiratory distress. Unkempt. SKIN: Normal color, warm. HEENT: [place] palpebral conjunctivae. No ptosis. Dry mucosa. NECK: Supple, nontender. CHEST: Occasional wheeze. No tenderness. HEART: Regular rate and rhythm, no murmur. ABDOMEN: Some distention, nontender. EXTREMITIES: Edematous lower extremities with necrotic ulcers, both shins with foul smelling drainage. Minimal LE tenderness. NEUROLOGIC: coherent, no gross focality. LABORATORY DATA: Hemoglobin was noted to be 14.9, white cell count 4.75, platelets noted to be 171. Sodium noted to be 135, potassium 3.9, chloride 106, BUN 9, creatinine 0.8, glucose 121. Initial Gram stain of LE wound CS, moderate gram-positive cocci, few gram- negative bacilli, WBCs. LE Ultrasound initial read as above. ASSESSMENT: 1. Bilateral LE swelling and pain multifactorial : Recurrent LE clots (hx hypercoagulable state on Xarelto. missed Xarelto dosing during recent incarceration) recurrent LE cellulitis secondary to infected chronic venous stasis wounds, no sepsis. (GPC, GNR organisms on preliminary Gram stain results) 2. History narcotic addiction as per records 3. COPD, ongoing tobacco abuse. Baseline wheezing; px states he has flulike symptoms 4. Mood disorder, stable on regimen as per patient 5. Past alcohol abuse as per patient. Patient states he does not drink as much now. 6. Hyperglycemia ro DM PLAN: GMF follow final wound CS. Doxycycline and Cefepime for now. May need ID consult pending CS results availability. Wound care provider consult. RE chronic LE wounds Facilitate Xarelto Nebs as needed Flu swab Social service RE discharge planning. Check hemoglobin A1c. Judicious narcotic use given history of narcotic addiction as per records. Limit patient to home Percocet as needed. DT precautions Nicotine patch. DVT prophylaxis, Xarelto. Full code. Hospital Course Bilateral LE swelling and pain Recurrent LE clots (hx hypercoagulable state on Xarelto. missed Xarelto dosing during recent incarceration) Recurrent LE cellulitis secondary to infected chronic venous stasis wounds, no sepsis. (GPC, GNR organisms on preliminary Gram stain results)--MRSA Has acute on chronic DVT Back on Xarelto -advised to continue Xarelto Bilateral Legs Cellulitis with Ulceration and probable Gangrene Follow final wound CS. Doxycycline and Cefepime for now. May need ID consult pending CS results availability. Wound care provider consult. RE chronic LE wounds-appreciate Input Growing E Coli and Staph -MREA ID consulted and appreciate Input Placed on IV Vanco--- switch over to Ceftriaxone as per ID PICC will be placed and will go to rehab Continue Vanco for 6 weeks in total History narcotic addiction as per records Past alcohol abuse as per patient. Patient states he does not drink as much now. COPD, ongoing tobacco abuse. Baseline wheezing; px states he has flulike symptoms Remains asymptomatic Mood disorder, stable on regimen as per patient DVT-hypercoagulable state Facilitate Xarelto Code Status-Full PT/OT evaluation Will go to [facility] today Total time spent on discharge = 35 minutes This includes examination of the patient, discharge planning, medication reconciliation, and communication with other providers. Discharge Instructions Date of Service Nov 03, 2017. Admission Reason for Admission: Cellulitis Of Both Lower Extremities Discharge Discharge Diagnosis / Problem: Bilateral Leg cellulitis,MRSA Discharge Goals Goal(s): Prevent Disease Progression Activity Recommendations Activity Level: Assistance Required Therapies: Physical Therapy, Occupational Therapy . Additional Information Patient informed of condition: Yes Advance Directives: No DNR: No Level of Care: Skilled Communicable Disease: No Prognosis: Stable [place] Catheter: No Instructions / Follow-Up Instructions / Follow-Up Please make an appointment with your PCP in 1 week.Weekly cbc, cmp, esr, vanco trough while on therapy - maintain 15-20.Pl report the results to Wound Clinic at [facility],Please make an appointment with the wound clinic in 7 days. Dressing as per wound care instruction. Current Hospital Diet Patient's current hospital diet: Regular Diet Discharge Diet Recommended Diet: Regular Diet Pending Studies Studies pending at discharge: no Laboratory Results Hemoglobin A1c Test 10/31/17 00:00 Range/Units Estimated Average Glucose 120 mg/dl Hemoglobin A1c 5.8 H 4.5-5.6 % Medical Emergencies . Who to Call and When: Medical Emergencies: If at any time you feel your situation is an emergency, please call 911 immediately. . Non-Emergent Contact Non-Emergency issues call your: Primary Care Provider . Past History Medical & Surgical History: (1) Cellulitis of right lower extremity (2) Cellulitis of left lower leg (3) Tobacco abuse (4) Chronic deep vein thrombosis (DVT) (5) Chronic ulcer of leg (6) Venous (peripheral) insufficiency (7) H/O methicillin resistant Staphylococcus aureus (8) COPD (chronic obstructive pulmonary disease) (9) Depression (10) Deep vein thrombosis (DVT) (11) Cellulitis of both lower extremities . "Provider Documentation" section prepared by Dallas Wilkins. . Core Measure Problem Core Measures: VTE (Xarelto) VTE Core Measures VTE Diagnosis: (1) Deep vein thrombosis (DVT) Date of VTE Diagnosis: Oct 31, 2017 Time of VTE Diagnosis: 04:45 Reason no anticoag overlap I/P: Treatment provided - N/A (Xarelto) Reason no anticoag overlap @DC: Treatment provided - N/A <Electronically signed by Dallas Wilkins M.D.> Signed: 11/03/17 1400
[2017-11-04] MEDS ORDERED: VANCOMYCIN TROUGH ONE (19:30)
== END 2017-11-03 14:28 | DRG 603 ==
LOC: C.EDB 23:30 → C.MS4W 10-31 04:46 → ENRESERV 10-31 05:13 → CANRESERV 10-31 05:21 → ENRESERV 10-31 05:21
PROVIDERS: ADMIT Internal Medicine; ATTEND Internal Medicine
DX: L03.115 Cellulitis of right lower limb (principal); F11.20 Opioid dependence, uncomplicated; I82.503 Chronic embolism and thrombosis of unspecified deep veins of lower extremity, bilateral; L03.116 Cellulitis of left lower limb; J44.9 Chronic obstructive pulmonary disease, unspecified; F32.9 Major depressive disorder, single episode, unspecified; K21.9 Gastro-esophageal reflux disease without esophagitis; F17.200 Nicotine dependence, unspecified, uncomplicated; R73.9 Hyperglycemia, unspecified; I87.2 Venous insufficiency (chronic) (peripheral); Z79.01 Long term (current) use of anticoagulants; Z79.52 Long term (current) use of systemic steroids

== ENCOUNTER 2018-01-13 09:26 | Inpatient (IN) | payer OTHER ==
[~2018-01-13] VITALS: Ht 175.3 cm; Wt 110.0 kg
[~2018-01-13 09:26] MED LIST changes: -DXY100 PO; -Enteral Nutrition Formula PO; +LACTCHW3 PO; +NF1094 IV
--- NOTE | 2018-01-13 10:01 | EMERGENCY ROOM VISIT NOTE ---
History Report prepared by Monie: Raheel Graf Under the Supervision of: Dr. Jalen Baeza M.D. First contact with patient: 09:51 Chief Complaint: WOUND INFECTION Stated Complaint: INFECTION IN LEG History of Present Illness The patient is a 42 year old male who presents to the Emergency Room with complaints of a chronic, worsening, skin infection to the bilateral lower legs beginning 13 years ago. The patient states he was evaluated in October for similar symptoms. He notes he also had a blood clot in his leg. He reports he was discharged into rehab, and his infection got better. The patient notes she went to [place] last week and was told there is no infection, but they treated him inpatient for two days and gave him vancomycin. He states he was not evaluated by infections disease, but they were consulted in [place]. The patient reports he has not been admitted to [place] before. He notes he has been dealing with this infection for the past 13 years, and it was last debrided 5-6 years ago. The patient states he has a history of MRSA, and it is not currently active. He reports he cannot eat anything without his stomach hurting. The patient notes he had a few alcoholic drinks last evening. He denies fevers, chills, a history of diabetes, nausea, vomiting, chest pain, shortness of breath, and pain with urination. Source of History: patient Onset: 13 years ago Position: leg (bilateral, lower) Quality: other (chronic skin infection) Timing: worsening Associated Symptoms: No fevers, No chills, No chest pain, No SOB, No nausea , No vomiting, No urinary symptoms (pain with urination) Review of Systems See HPI for pertinent positives and negatives. A total of ten systems were reviewed and were otherwise negative. Past Medical & Surgical Medical Problems: (1) Cellulitis (2) Cellulitis of both lower extremities (3) Chronic deep vein thrombosis (DVT) (4) Chronic ulcer of leg (5) Chronic venous stasis dermatitis of both lower extremities (6) COPD (chronic obstructive pulmonary disease) (7) Deep vein thrombosis (DVT) (8) Depression (9) GERD (gastroesophageal reflux disease) (10) H/O ETOH abuse (11) H/O methicillin resistant Staphylococcus aureus (12) Hypercoagulable state (13) Narcotic dependence (14) Tobacco abuse (15) Venous (peripheral) insufficiency Surgical Problems: (1) History of incision and drainage Family History Hypercoagulability MOTHER Social History Smoking Status: Current Every Day Smoker Drug Use: none Marital Status: single Current/Historical Medications Scheduled Budesonide/Formoterol Fumarate (Symbicort 160/4.5 Inhaler ), 2 PUFFS INH BID Collagenase (Santyl), 1 APPLN EXT DAILY Docusate Sodium (Colace), 100 MG PO BID Folic Acid (Folic Acid), 1 MG PO DAILY Lactic Acid (Ammonium Lactate) (Amlactin), 1 APPL EXT DAILY Lactobacillus (Lactinex), 2 TAB PO TID Multivitamins/Minerals (Certavite/Antioxidants), 1 TAB PO QAM Nicotine (Nicoderm Cq 14MG Patch), 14 MG TD QAM Omeprazole (Prilosec), 20 MG PO BID Rivaroxaban (Xarelto), 15 MG PO BID Thiamine HCl (Vitamin B-1), 100 MG PO DAILY Tiotropium [place] (Spiriva Handihaler), 1 CAP INH DAILY Trazodone HCl (Trazodone HCl), 1 TAB PO HS Scheduled PRN Albuterol Hfa (Ventolin Hfa), 2 PUFFS INH Q6H PRN for SOB/Wheezing Oxycodone/Acetaminophen 5MG/325MG (Percocet 5MG/325MG), 1 TABLET PO Q8 PRN for Pain Allergies Coded Allergies: Pea (Unverified Allergy, Unknown, ., 10/31/17) Sulfamethoxazole w/Trimethoprim (Unverified Allergy, Unknown, hives, ) Tuna (Verified Allergy, Unknown, ., 11/01/17) Pt reported an allergy to peas & tuna to RD (EV) last adm. 08/2017; rxn unknown. Physical Exam Vital Signs Date Time Temp Pulse Resp B/P (MAP) Pulse Ox O2 Delivery O2 Flow Rate FiO2 01/13/18 13:00 96 128/84 95 Room Air 01/13/18 11:54 98 18 140/118 97 Room Air 01/13/18 10:48 95 Room Air 01/13/18 10:45 105 136/97 01/13/18 10:29 112 01/13/18 09:34 36.7 118 20 143/85 95 Room Air Physical Exam GENERAL: Awake, alert, relatively well-appearing, in no distress HENT: Normocephalic, atraumatic. Oropharynx unremarkable except for dry mucous membranes. EYES: Normal conjunctiva. Sclera non-icteric. NECK: Supple. No nuchal rigidity. FROM. No JVD. RESPIRATORY: Scattered wheezes. CARDIAC: Regular rate, normal rhythm. Extremities warm and well perfused. Pulses equal. ABDOMEN: Soft, non-distended. No tenderness to palpation. No rebound or guarding. No masses. RECTAL: Deferred. MUSCULOSKELETAL: Chest examination reveals no tenderness. The back is symmetrical on inspection without obvious abnormality. There is no CVA tenderness to palpation. No joint edema. LOWER EXTREMITIES: Calves are equal size bilaterally and non-tender. 3+ bilateral lower extremity edema with foul smelling necrotic tissue. Pedal pulses intact. Distal motor sensory intact. No discoloration. NEURO: Normal sensorium. No sensory or motor deficits noted. SKIN: No rash or jaundice noted. Medical Decision & Procedures ER Provider Diagnostic Interpretation: Radiology results as stated below per my review and radiologist interpretation: BILATERAL LOWER EXTREMITY VENOUS DOPPLER HISTORY: Bilateral leg swelling. COMPARISON STUDY: Venous Doppler 08/30/2017. FINDINGS: Suboptimal study due to lower extremity edema. Bilateral inguinal lymphadenopathy with the largest on the right measuring 6.4 x 4.9 x 2.6 cm. Nonocclusive thrombus seen within the right common femoral and superficial femoral veins as well as the left common femoral, superficial femoral, popliteal veins. The left peroneal veins were unable to be visualized. The remaining calf vessels were suboptimally assessed but but appear to be patent. IMPRESSION: Bilateral lower extremity nonocclusive DVT as described above. This appears to be slightly improved compared to the prior study and therefore favors chronic DVT. Electronically signed by: Julian Gaitan M.D. 01/13/2018 12:20 PM Dictated Date/Time: 01/13/2018 12:17 PM L TIBIA/FIBULA 2 VIEWS ROUTINE, R TIBIA/FIBULA 2 VIEWS ROUTINE CLINICAL HISTORY: Bilateral leg pain swelling, cellulitis COMPARISON STUDY: None. FINDINGS: No fracture or dislocation within the right or left lower leg. No cortical destruction to suggest osteomyelitis. No radiopaque foreign bodies. Smooth periosteal reaction within the bilateral tibia and fibula. There is skin thickening, soft tissue edema, and skin blisters seen within the bilateral lower legs. IMPRESSION: 1. No fractures within the right or left lower leg. 2. Skin thickening, soft tissue edema, and skin blisters within the bilateral lower legs. This favors chronic venous stasis/insufficiency. 3. Therefore, this chronic venous stasis/insufficiency likely results in the periosteal reaction within the bilateral tibia/fibula. Electronically signed by: Julian Gaitan M.D. 01/13/2018 11:42 AM Dictated Date/Time: 01/13/2018 11:39 AM CHEST ONE VIEW PORTABLE HISTORY: Evaluate Fever/Sepsis COMPARISON: Chest 08/30/2017. FINDINGS: The heart remains mildly enlarged. No pneumothorax. No pleural effusions. Mild diffuse interstitial thickening is unchanged and therefore likely chronic. No new focal lung consolidations to suggest pneumonia. No evidence for pulmonary edema. IMPRESSION: No change in the mild cardiomegaly and chronic interstitial thickening. Therefore, no acute process within the chest. Electronically signed by: Julian Gaitan M.D. 01/13/2018 11:39 AM Dictated Date/Time: 01/13/2018 11:38 AM Laboratory Results 01/13/18 10:30 Red Blood Count 4.33, Mean Corpuscular Volume 88.9, Mean Corpuscular Hemoglobin 30.7, Mean Corpuscular Hemoglobin Concent 34.5, Mean Platelet Volume 9.4, Neutrophils (%) (Auto) 72.6, Lymphocytes (%) (Auto) 18.3, Monocytes (%) (Auto) 6.9, Eosinophils (%) (Auto) 1.0, Basophils (%) (Auto) 1.0, Neutrophils # (Auto) 2.93, Lymphocytes # (Auto) 0.74, Monocytes # (Auto) 0.28, Eosinophils # (Auto) 0.04, Basophils # (Auto) 0.04 01/13/18 10:30 Test 01/13/18 10:30 01/13/18 12:20 White Blood Count 4.04 K/uL (4.8-10.8) Red Blood Count 4.33 M/uL (4.7-6.1) Hemoglobin 13.3 g/dL (14.0-18.0) Hematocrit 38.5 % (42-52) Mean Corpuscular Volume 88.9 fL (80-100) Mean Corpuscular Hemoglobin 30.7 pg (25-34) Mean Corpuscular Hemoglobin Concent 34.5 g/dl (32-36) Platelet Count 231 K/uL (130-400) Mean Platelet Volume 9.4 fL (7.4-10.4) Neutrophils (%) (Auto) 72.6 % Lymphocytes (%) (Auto) 18.3 % Monocytes (%) (Auto) 6.9 % Eosinophils (%) (Auto) 1.0 % Basophils (%) (Auto) 1.0 % Neutrophils # (Auto) 2.93 K/uL (1.4-6.5) Lymphocytes # (Auto) 0.74 K/uL (1.2-3.4) Monocytes # (Auto) 0.28 K/uL (0.11-0.59) Eosinophils # (Auto) 0.04 K/uL (0-0.5) Basophils # (Auto) 0.04 K/uL (0-0.2) RDW Standard Deviation 62.2 fL (36.4-46.3) RDW Coefficient of Variation 19.3 % (11.5-14.5) Immature Granulocyte % (Auto) 0.2 % Immature Granulocyte # (Auto) 0.01 K/uL (0.00-0.02) Prothrombin Time 9.9 SECONDS (9.0-12.0) Prothromb Time International Ratio 0.9 (0.9-1.1) Venous Blood pH 7.44 (7.36-7.41) Venous Blood Partial Pressure CO2 35 mmHg (38.0-50.0) Venous Blood Partial Pressure O2 47 mmHg Venous Blood HCO3 23 mmol/L Venous Blood Oxygen Saturation 83.3 % Venous Blood Base Excess -0.7 mEq/L Anion Gap 10.0 mmol/L (3-11) Est Creatinine Clear Calc Drug Dose 168.8 ml/min Estimated GFR () 134.8 Estimated GFR (Non- 116.3 BUN/Creatinine Ratio 7.6 (10-20) Lactic Acid Level 1.7 mmol/L (0.4-2.0) Calcium Level 9.1 mg/dl (8.5-10.1) Magnesium Level 2.1 mg/dl (1.8-2.4) Total Bilirubin 0.6 mg/dl (0.2-1) Direct Bilirubin 0.2 mg/dl (0-0.2) Aspartate Amino Transf (AST/SGOT) 41 U/L (15-37) Alanine Aminotransferase (ALT/SGPT) 45 U/L (12-78) Alkaline Phosphatase 79 U/L (45-117) Total Creatine Kinase 32 U/L (39-308) Troponin I < 0.015 ng/ml (0-0.045) Pro-B-Type Natriuretic Peptide 26 pg/ml (0-450) Total Protein 9.0 gm/dl (6.4-8.2) Albumin 3.4 gm/dl (3.4-5.0) Lipase 188 U/L (73-393) Ethyl Alcohol mg/dL 35.2 mg/dl (0-3) Urine Color YELLOW Urine Appearance CLEAR (CLEAR) Urine pH 5.5 (4.5-7.5) Urine Specific [place] 1.011 (1.000-1.030) Urine Protein NEG (NEG) Urine Glucose (UA) NEG (NEG) Urine Ketones NEG (NEG) Urine Occult Blood NEG (NEG) Urine Nitrite NEG (NEG) Urine Bilirubin NEG (NEG) Urine Urobilinogen NEG (NEG) Urine Leukocyte Esterase NEG (NEG) Urine WBC (Auto) 0 /hpf (0-5) Urine RBC (Auto) 0-4 /hpf (0-4) Urine Hyaline Casts (Auto) 0 /lpf (0-5) Urine Epithelial Cells (Auto) 0-5 /lpf (0-5) Urine Bacteria (Auto) NEG (NEG) Urine Opiates Screen POS (NEG) Urine Methadone, Qualitative NEG (NEG) Urine Barbiturates NEG (NEG) Urine Phencyclidine (PCP) Level NEG (NEG) Ur Amphetamine/Methamphetamine NEG (NEG) MDMA (Ecstasy) Screen NEG (NEG) Urine Benzodiazepines Screen NEG (NEG) Urine Cocaine Metabolite NEG (NEG) Urine Marijuana (THC) NEG (NEG) Laboratory results reviewed by me Medications Administered Medications (Trade) Dose Ordered Sig/Ilia Route Start Time Stop Time Status Last Admin Dose Admin Sodium Chloride 500 ml @ 999 mls/hr Q31M STAT IV 01/13/18 10:02 01/13/18 10:32 DC 01/13/18 10:42 999 MLS/HR Vancomycin HCl 2250 mg/Sodium Chloride 545 ml @ 200 mls/hr ONE STAT IV 01/13/18 10:02 01/13/18 12:45 DC 01/13/18 10:42 200 MLS/HR Piperacillin Sod/ Tazobactam Sod (Zosyn Iv) 4.5 gm NOW STAT IV 01/13/18 10:02 01/13/18 10:08 DC 01/13/18 10:42 4.5 GM Morphine Sulfate (MoRPHine SULFATE INJ) 4 mg NOW STAT IV 01/13/18 10:02 01/13/18 10:08 DC 01/13/18 10:43 4 MG ED Course 0953: The patient was evaluated in room A11B. A complete history and physical exam was performed. 1233: I [facility] the [facility]'s [facility] The patient will be evaluated for further management and care. 1238: Upon reexamination, the patient was resting. I discussed the test results and treatment plan with him. The patient will be evaluated for further management. Medical Decision I reviewed the patient's past medical history, medications, and the nursing notes as described above. Differential diagnosis: Etiologies such as cellulitis, abscess, MRSA infection, DVT, necrotizing fasciitis, dermatitis, drug eruption, as well as others were entertained. The patient is a 42-year-old gentleman with a past medical history of recurrent lower extremity cellulitis and nonocclusive DVT on Xarelto who presents to emergency department with worsening of his lower extremity swelling and redness after being admitted here last month for the same and then admitted to [place] for 2 days last week per hpi. On arrival the patient is in no acute distress, afebrile stable vital signs. Patient has bilateral lower extremity 3 + edema with erythema and warmth and foul necrotic odor, with moderate tenderness. No crepitus. Distal PMS intact. WBC and lactate within normal limits. Duplex of lower extremities demonstrates improved DVT from prior. Plain films with soft tissue swelling and question periosteal reaction in the setting of chronic venous stasis. No gas. Given concerning exam findings, will admit the patient for IV antibiotics. [facility], who will evaluate the patient for admission. We agree to order MRI to further clarify plain film findings in the setting of necrotic infection. Medication Reconcilliation Current Medication List: was personally reviewed by me Blood Pressure Screening Patient's blood pressure: Elevated blood pressure Monitored by hospitalist. Consults Time Called: 1231 Consulting Physician: Javier Hay Hospitalist Returned Call: [phone] I discussed the patient's case with Javier Hay Hospitalist. The patient will be evaluated for further management and care. Impression Primary Impression: Cellulitis Additional Impression: Chronic deep vein thrombosis (DVT) Scribe Attestation The scribe's documentation has been prepared under my direction and personally reviewed by me in its entirety. I confirm that the note above accurately reflects all work, treatment, procedures, and medical decision making performed by me. Departure Information Dispostion Being Evaluated By Hospitalist Referrals No Doctor, Assigned (PCP) Patient Instructions My [facility] Problem Qualifiers
[2018-01-13] MEDS ORDERED: SODIUM CHLORIDE 0.9% 500ML 500 ML IV STA (10:02)
[2018-01-13] MEDS ORDERED: PIPERACILLIN/TAZOBACTAM 4.5 GM/100ML D5W IV STA (10:02)
[2018-01-13] MEDS ORDERED: MoRPHine SULFATE 4 MG/ML 1 ML CARP\\VIAL IV STA (10:02)
[2018-01-13] MEDS ORDERED: VANCOMYCIN IV 2,250 MG in SODIUM CHLORIDE 0.9% 500ML 500 ML IV STA (10:02)
[2018-01-13] MEDS ORDERED: VANCOMYCIN CONSULT ACTIVE PRN ×2 (10:15→14:45)
[2018-01-13 10:47] LABS: BASO ABS # 0.04 K/uL (0-0.2); EOS ABS # 0.04 K/uL (0-0.5); HEMATOCRIT 38.5 % (42-52); HEMOGLOBIN 13.3 g/dL (14.0-18.0); IG# 0.01 K/uL (0.00-0.02); LYMPH % 18.3 %; LYMPH ABS # 0.74 K/uL (1.2-3.4); MEAN CELL VOLUME 88.9 fL (80-100); MEAN CORPUSCULAR HEMOGLOBIN 30.7 pg (25-34); MEAN CORPUSCULAR HGB CONC 34.5 g/dl (32-36); MEAN PLATELET VOLUME 9.4 fL (7.4-10.4); MONO % 6.9 %; MONO ABS # 0.28 K/uL (0.11-0.59); NEUT % 72.6 %; NEUT ABS # 2.93 K/uL (1.4-6.5); PLATELET COUNT 231 K/uL (130-400); RED CELL DISTRIBUTION WIDTH CV 19.3 % (11.5-14.5); RED CELL DISTRIBUTION WIDTH SD 62.2 fL (36.4-46.3); WHITE BLOOD COUNT 4.04 K/uL (4.8-10.8)
[2018-01-13 11:08] LABS: ALBUMIN 3.4 gm/dl (3.4-5.0); ALKALINE PHOSPHATASE 79 U/L (45-117); ALT/SGPT 45 U/L (12-78); AST/SGOT 41 U/L (15-37); BLOOD UREA NITROGEN 5 mg/dl (7-18); CALCIUM 9.1 mg/dl (8.5-10.1); CARBON DIOXIDE 22 mmol/L (21-32); CREATININE 0.69 mg/dl (0.60-1.40); GLUCOSE 112 mg/dl (70-99); INR 0.9 (0.9-1.1); LIPASE 188 U/L (73-393); SODIUM 135 mmol/L (136-145)
--- NOTE | 2018-01-13 11:40 | DIAGNOSTIC IMAGING REPORT ---
CHEST ONE VIEW PORTABLE HISTORY: Evaluate Fever/Sepsis COMPARISON: Chest 08/30/2017. FINDINGS: The heart remains mildly enlarged. No pneumothorax. No pleural effusions. Mild diffuse interstitial thickening is unchanged and therefore likely chronic. No new focal lung consolidations to suggest pneumonia. No evidence for pulmonary edema. IMPRESSION: No change in the mild cardiomegaly and chronic interstitial thickening. Therefore, no acute process within the chest. Electronically signed by: Julian Gaitan M.D. 01/13/2018 11:39 AM Dictated Date/Time: 01/13/2018 11:38 AM
--- NOTE | 2018-01-13 11:43 | DIAGNOSTIC IMAGING REPORT ---
L TIBIA/FIBULA 2 VIEWS ROUTINE, R TIBIA/FIBULA 2 VIEWS ROUTINE CLINICAL HISTORY: Bilateral leg pain swelling, cellulitis COMPARISON STUDY: None. FINDINGS: No fracture or dislocation within the right or left lower leg. No cortical destruction to suggest osteomyelitis. No radiopaque foreign bodies. Smooth periosteal reaction within the bilateral tibia and fibula. There is skin thickening, soft tissue edema, and skin blisters seen within the bilateral lower legs. IMPRESSION: 1. No fractures within the right or left lower leg. 2. Skin thickening, soft tissue edema, and skin blisters within the bilateral lower legs. This favors chronic venous stasis/insufficiency. 3. Therefore, this chronic venous stasis/insufficiency likely results in the periosteal reaction within the bilateral tibia/fibula. Electronically signed by: Julian Gaitan M.D. 01/13/2018 11:42 AM Dictated Date/Time: 01/13/2018 11:39 AM
--- NOTE | 2018-01-13 12:22 | DIAGNOSTIC IMAGING REPORT ---
BILATERAL LOWER EXTREMITY VENOUS DOPPLER HISTORY: Bilateral leg swelling. COMPARISON STUDY: Venous Doppler 08/30/2017. FINDINGS: Suboptimal study due to lower extremity edema. Bilateral inguinal lymphadenopathy with the largest on the right measuring 6.4 x 4.9 x 2.6 cm. Nonocclusive thrombus seen within the right common femoral and superficial femoral veins as well as the left common femoral, superficial femoral, popliteal veins. The left peroneal veins were unable to be visualized. The remaining calf vessels were suboptimally assessed but but appear to be patent. IMPRESSION: Bilateral lower extremity nonocclusive DVT as described above. This appears to be slightly improved compared to the prior study and therefore favors chronic DVT. Electronically signed by: Julian Gaitan M.D. 01/13/2018 12:20 PM Dictated Date/Time: 01/13/2018 12:17 PM
--- NOTE | 2018-01-13 13:07 | History and Physical ---
History & Physical Date & Time of Service: January 13, 2018 at 13:07 Chief Complaint: Infection In Leg Primary Care Physician: Antonio Jo PA-C History of Present Illness Source: patient Patient is a 42-year-old male with past medical history of COPD, B/L LE DVT on chronic anticoagulation, alcohol and tobacco use disorder, mood disorder, chronic venous stasis ulcers, GERD, history of MRSA and thrombocytopenia and other problems presents with history of worsening bilateral lower extremity wounds and pain. Patient reports recurrent infection of bilateral lower extremity wounds and had debridement in the past. Patient was recently admitted at [facility] and was treated with vancomycin. Patient reports having chronic infection since past 13 years and was debrided on multiple occasions. He reports sharp stabbing pain in legs, 7/10 intensity, increased swelling of legs. He admits to dressing regularly and follows with wound clinic as outpatient. Also reports decreased appetite since last few days and has chronic cough associated with wheezing which is unchanged. He drinks socially and last alcohol drink was yesterday. Denies any h/o withdrawal in the past. Denies any history of chest pain, SOB, dizziness, diaphoresis, fever, chills, headache, weakness, nausea, vomiting, abdominal pain, diarrhea, dysuria. Past Medical/Surgical History Medical Problems: (1) Cellulitis of both lower extremities (2) Cellulitis of left lower leg (3) Cellulitis of right lower extremity (4) Chronic deep vein thrombosis (DVT) (5) Chronic ulcer of leg (6) Chronic venous stasis dermatitis of both lower extremities (7) COPD (chronic obstructive pulmonary disease) (8) Deep vein thrombosis (DVT) (9) Depression (10) DVT of lower extremity, bilateral (11) GERD (gastroesophageal reflux disease) (12) H/O ETOH abuse (13) H/O methicillin resistant Staphylococcus aureus (14) Hypercoagulable state (15) Narcotic dependence (16) Superficial thrombosis of both lower extremities (17) Tobacco abuse (18) Venous (peripheral) insufficiency Surgical Problems: (1) History of incision and drainage Family History Hypercoagulability MOTHER Father: Cirrhosis Social History Smoking Status: Current Every Day Smoker Alcohol Use: socially Drug Use: none Marital Status: single Housing status: lives alone Immunizations History of Influenza Vaccine: Yes Influenza Vaccine Date: Jun 08, 2017 History of Tetanus Vaccine?: Yes Tetanus Immunization Date: Mar 22, 2007 History of Pneumococcal: Yes Pneumococcal Date: Feb 09, 2017 History of Hepatitis B Vaccine: Unknown Allergies Coded Allergies: Pea (Unverified Allergy, Unknown, ., 10/31/17) Sulfamethoxazole w/Trimethoprim (Unverified Allergy, Unknown, hives, ) Tuna (Verified Allergy, Unknown, ., 11/01/17) Pt reported an allergy to peas & tuna to RD (EV) last adm. 08/2017; rxn unknown. Home Medications Scheduled Budesonide/Formoterol Fumarate (Symbicort 160/4.5 Inhaler ), 2 PUFFS INH BID Collagenase (Santyl), 1 APPLN EXT DAILY Docusate Sodium (Colace), 100 MG PO BID Folic Acid (Folic Acid), 1 MG PO DAILY Lactic Acid (Ammonium Lactate) (Amlactin), 1 APPL EXT DAILY Lactobacillus (Lactinex), 2 TAB PO TID Multivitamins/Minerals (Certavite/Antioxidants), 1 TAB PO QAM Nicotine (Nicoderm Cq 14MG Patch), 14 MG TD QAM Omeprazole (Prilosec), 20 MG PO BID Rivaroxaban (Xarelto), 15 MG PO BID Thiamine HCl (Vitamin B-1), 100 MG PO DAILY Tiotropium [place] (Spiriva Handihaler), 1 CAP INH DAILY Trazodone HCl (Trazodone HCl), 1 TAB PO HS Scheduled PRN Albuterol Hfa (Ventolin Hfa), 2 PUFFS INH Q6H PRN for SOB/Wheezing Oxycodone/Acetaminophen 5MG/325MG (Percocet 5MG/325MG), 1 TABLET PO Q8 PRN for Pain Review of Systems See HPI for pertinent positives & negatives. A total of 10 systems reviewed and were otherwise negative. Physical Exam Vital Signs Date Time Temp Pulse Resp B/P (MAP) Pulse Ox O2 Delivery O2 Flow Rate FiO2 01/13/18 11:54 98 18 140/118 97 Room Air 01/13/18 10:48 95 Room Air 01/13/18 10:45 105 136/97 01/13/18 10:29 112 01/13/18 09:34 36.7 118 20 143/85 95 Room Air General Appearance: WD/WN, no apparent distress Head: normocephalic, atraumatic Eyes: normal inspection, PERRL, EOMI, sclerae normal ENT: normal ENT inspection, hearing grossly normal Neck: supple, trachea midline Respiratory/Chest: chest non-tender, no respiratory distress, no accessory muscle use, + wheezing (Scattered), + pertinent finding (Coarse breath sounds) Cardiovascular: regular rate, rhythm, no murmur, + tachycardia Abdomen/GI: normal bowel sounds, non tender, soft Back: normal inspection Extremities/Musculoskelatal: normal inspection, + pedal edema, + pertinent finding (Chronic venous ulcers, wounds, B/L LE edema, foul smelling necrotic tissue) Neurologic/Psych: granite cutter II-XII nml as tested, no motor/sensory deficits, alert, normal mood/affect, oriented x 3 Skin: normal color, + pertinent finding (LE chronic venous stasis changes) Diagnostics Laboratory Results Results Past 24 Hours Test 01/13/18 10:30 01/13/18 12:20 Range/Units White Blood Count 4.04 4.8-10.8 K/uL Red Blood Count 4.33 4.7-6.1 M/uL Hemoglobin 13.3 14.0-18.0 g/dL Hematocrit 38.5 42-52 % Mean Corpuscular Volume 88.9 80-100 fL Mean Corpuscular Hemoglobin 30.7 25-34 pg Mean Corpuscular Hemoglobin Concent 34.5 32-36 g/dl Platelet Count 231 130-400 K/uL Mean Platelet Volume 9.4 7.4-10.4 fL Neutrophils (%) (Auto) 72.6 % Lymphocytes (%) (Auto) 18.3 % Monocytes (%) (Auto) 6.9 % Eosinophils (%) (Auto) 1.0 % Basophils (%) (Auto) 1.0 % Neutrophils # (Auto) 2.93 1.4-6.5 K/uL Lymphocytes # (Auto) 0.74 1.2-3.4 K/uL Monocytes # (Auto) 0.28 0.11-0.59 K/uL Eosinophils # (Auto) 0.04 0-0.5 K/uL Basophils # (Auto) 0.04 0-0.2 K/uL RDW Standard Deviation 62.2 36.4-46.3 fL RDW Coefficient of Variation 19.3 11.5-14.5 % Immature Granulocyte % (Auto) 0.2 % Immature Granulocyte # (Auto) 0.01 0.00-0.02 K/uL Prothrombin Time 9.9 9.0-12.0 SECONDS Prothromb Time International Ratio 0.9 0.9-1.1 Venous Blood pH 7.44 7.36-7.41 Venous Blood Partial Pressure CO2 35 38.0-50.0 mmHg Venous Blood Partial Pressure O2 47 mmHg Venous Blood HCO3 23 mmol/L Venous Blood Oxygen Saturation 83.3 % Venous Blood Base Excess -0.7 mEq/L Sodium Level 135 136-145 mmol/L Potassium Level 4.0 3.5-5.1 mmol/L Chloride Level 103 98-107 mmol/L Carbon Dioxide Level 22 21-32 mmol/L Anion Gap 10.0 3-11 mmol/L Blood Urea Nitrogen 5 7-18 mg/dl Creatinine 0.69 0.60-1.40 mg/dl Est Creatinine Clear Calc Drug Dose 168.8 ml/min Estimated GFR () 134.8 Estimated GFR (Non- 116.3 BUN/Creatinine Ratio 7.6 10-20 Random Glucose 112 70-99 mg/dl Lactic Acid Level 1.7 0.4-2.0 mmol/L Calcium Level 9.1 8.5-10.1 mg/dl Magnesium Level 2.1 1.8-2.4 mg/dl Total Bilirubin 0.6 0.2-1 mg/dl Direct Bilirubin 0.2 0-0.2 mg/dl Aspartate Amino Transf (AST/SGOT) 41 15-37 U/L Alanine Aminotransferase (ALT/SGPT) 45 12-78 U/L Alkaline Phosphatase 79 45-117 U/L Total Creatine Kinase 32 39-308 U/L Troponin I < 0.015 0-0.045 ng/ml Pro-B-Type Natriuretic Peptide 26 0-450 pg/ml Total Protein 9.0 6.4-8.2 gm/dl Albumin 3.4 3.4-5.0 gm/dl Lipase 188 73-393 U/L Ethyl Alcohol mg/dL 35.2 0-3 mg/dl Urine Color YELLOW Urine Appearance CLEAR CLEAR Urine pH 5.5 4.5-7.5 Urine Specific [place] 1.011 1.000-1.030 Urine Protein NEG NEG Urine Glucose (UA) NEG NEG Urine Ketones NEG NEG Urine Occult Blood NEG NEG Urine Nitrite NEG NEG Urine Bilirubin NEG NEG Urine Urobilinogen NEG NEG Urine Leukocyte Esterase NEG NEG Urine WBC (Auto) 0 0-5 /hpf Urine RBC (Auto) 0-4 0-4 /hpf Urine Hyaline Casts (Auto) 0 0-5 /lpf Urine Epithelial Cells (Auto) 0-5 0-5 /lpf Urine Bacteria (Auto) NEG NEG Urine Opiates Screen POS NEG Urine Methadone, Qualitative NEG NEG Urine Barbiturates NEG NEG Urine Phencyclidine (PCP) Level NEG NEG Ur Amphetamine/Methamphetamine NEG NEG MDMA (Ecstasy) Screen NEG NEG Urine Benzodiazepines Screen NEG NEG Urine Cocaine Metabolite NEG NEG Urine Marijuana (THC) NEG NEG Microbiology Results 01/13/18 Blood Culture, Received Pending 01/13/18 Blood Culture, Received Pending 01/13/18 Urine Culture, Received Pending Diagnostic Radiology Venous Doppler; Bilateral lower extremity nonocclusive DVT as described above. This appears to be slightly improved compared to the prior study and therefore favors chronic DVT. Leg X ray: 1. No fractures within the right or left lower leg. 2. Skin thickening, soft tissue edema, and skin blisters within the bilateral lower legs. This favors chronic venous stasis/insufficiency. 3. Therefore, this chronic venous stasis/insufficiency likely results in the periosteal reaction within the bilateral tibia/fibula. CXR: No change in the mild cardiomegaly and chronic interstitial thickening. Therefore, no acute process within the chest. EKG EKG: Sinus Tachycardia, Non specific changes Impression Assessment and Plan B/L LE cellulitis Chronic Venous Stats with chronic ulcerations and necrosis Lactate normal Started on IV Vanco and Zosyn Blood cultures ordered ID and wound Care consulted Continue wound care X ray of leg showed No fractures, findings suggestive of chronic venous stasis/ insufficiency and likely periosteal reaction within the bilateral tibia/fibula. MRI pending (To R/O osteomyelitis Venous Doppler; B/L LE nonocclusive DVT which appears to be slightly improved compared to the prior study and therefore favors chronic DVT. 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 Resuscitation Status VTE Prophylaxis Will order VTE Prophylaxis: Yes
[2018-01-13] MEDS ORDERED: ACETAMINOPHEN 325 MG TAB PO PRN (13:15)
[2018-01-13] MEDS ORDERED: SODIUM CHLORIDE 0.9% 1000ML 1,000 ML IV ONE (13:15)
[2018-01-13] MEDS ORDERED: ONDANSETRON INJ 2 MG/ML 2 ML VIAL IV PRN (13:15)
[2018-01-13] MEDS ORDERED: CONSULT PHARMACY PRN (13:18)
[2018-01-13] MEDS ORDERED: ALBUT/IPRATROP 3MG/0.5MG NEB 3 ML VIAL INH PRN (13:30)
[2018-01-13] MEDS ORDERED: LORAZEPAM 1 MG TAB PO PRN (13:30)
[2018-01-13] MEDS ORDERED: GABAPENTIN 800 MG TAB PO SCH (13:30)
[2018-01-13 14:13] VITALS: Ht 175.3 cm; Wt 110.0 kg
[2018-01-13 14:30] VITALS: BP 137/80; PULSE 90; TEMP 36.9; O2SAT 95
--- NOTE | 2018-01-13 14:40 | Pharmacy Progress Note ---
Pharmacy Antibiotic Consult Date of Service: January 13, 2018. Pharmacy Dosing Scope Pharmacy is consulted to initiate vancomycin IV dosing therapy, order appropriate labs and adjust drug dose/frequency. Subjective The patient is a 42 year old male admitted on . Objective Height (Feet): 5 Height (Inches): 9.00 Weight (Kilograms): 110.000 Lab Results (24hrs): Test 01/13/18 10:30 01/13/18 12:20 White Blood Count 4.04 K/uL (4.8-10.8) Red Blood Count 4.33 M/uL (4.7-6.1) Hemoglobin 13.3 g/dL (14.0-18.0) Hematocrit 38.5 % (42-52) Mean Corpuscular Volume 88.9 fL (80-100) Mean Corpuscular Hemoglobin 30.7 pg (25-34) Mean Corpuscular Hemoglobin Concent 34.5 g/dl (32-36) Platelet Count 231 K/uL (130-400) Mean Platelet Volume 9.4 fL (7.4-10.4) Neutrophils (%) (Auto) 72.6 % Lymphocytes (%) (Auto) 18.3 % Monocytes (%) (Auto) 6.9 % Eosinophils (%) (Auto) 1.0 % Basophils (%) (Auto) 1.0 % Neutrophils # (Auto) 2.93 K/uL (1.4-6.5) Lymphocytes # (Auto) 0.74 K/uL (1.2-3.4) Monocytes # (Auto) 0.28 K/uL (0.11-0.59) Eosinophils # (Auto) 0.04 K/uL (0-0.5) Basophils # (Auto) 0.04 K/uL (0-0.2) RDW Standard Deviation 62.2 fL (36.4-46.3) RDW Coefficient of Variation 19.3 % (11.5-14.5) Immature Granulocyte % (Auto) 0.2 % Immature Granulocyte # (Auto) 0.01 K/uL (0.00-0.02) Prothrombin Time 9.9 SECONDS (9.0-12.0) Prothromb Time International Ratio 0.9 (0.9-1.1) Venous Blood pH 7.44 (7.36-7.41) Venous Blood Partial Pressure CO2 35 mmHg (38.0-50.0) Venous Blood Partial Pressure O2 47 mmHg Venous Blood HCO3 23 mmol/L Venous Blood Oxygen Saturation 83.3 % Venous Blood Base Excess -0.7 mEq/L Sodium Level 135 mmol/L (136-145) Potassium Level 4.0 mmol/L (3.5-5.1) Chloride Level 103 mmol/L (98-107) Carbon Dioxide Level 22 mmol/L (21-32) Anion Gap 10.0 mmol/L (3-11) Blood Urea Nitrogen 5 mg/dl (7-18) Creatinine 0.69 mg/dl (0.60-1.40) Est Creatinine Clear Calc Drug Dose 168.8 ml/min Estimated GFR () 134.8 Estimated GFR (Non- 116.3 BUN/Creatinine Ratio 7.6 (10-20) Random Glucose 112 mg/dl (70-99) Lactic Acid Level 1.7 mmol/L (0.4-2.0) Calcium Level 9.1 mg/dl (8.5-10.1) Magnesium Level 2.1 mg/dl (1.8-2.4) Total Bilirubin 0.6 mg/dl (0.2-1) Direct Bilirubin 0.2 mg/dl (0-0.2) Aspartate Amino Transf (AST/SGOT) 41 U/L (15-37) Alanine Aminotransferase (ALT/SGPT) 45 U/L (12-78) Alkaline Phosphatase 79 U/L (45-117) Total Creatine Kinase 32 U/L (39-308) Troponin I < 0.015 ng/ml (0-0.045) Pro-B-Type Natriuretic Peptide 26 pg/ml (0-450) Total Protein 9.0 gm/dl (6.4-8.2) Albumin 3.4 gm/dl (3.4-5.0) Lipase 188 U/L (73-393) Ethyl Alcohol mg/dL 35.2 mg/dl (0-3) Urine Color YELLOW Urine Appearance CLEAR (CLEAR) Urine pH 5.5 (4.5-7.5) Urine Specific [place] 1.011 (1.000-1.030) Urine Protein NEG (NEG) Urine Glucose (UA) NEG (NEG) Urine Ketones NEG (NEG) Urine Occult Blood NEG (NEG) Urine Nitrite NEG (NEG) Urine Bilirubin NEG (NEG) Urine Urobilinogen NEG (NEG) Urine Leukocyte Esterase NEG (NEG) Urine WBC (Auto) 0 /hpf (0-5) Urine RBC (Auto) 0-4 /hpf (0-4) Urine Hyaline Casts (Auto) 0 /lpf (0-5) Urine Epithelial Cells (Auto) 0-5 /lpf (0-5) Urine Bacteria (Auto) NEG (NEG) Urine Opiates Screen POS (NEG) Urine Methadone, Qualitative NEG (NEG) Urine Barbiturates NEG (NEG) Urine Phencyclidine (PCP) Level NEG (NEG) Ur Amphetamine/Methamphetamine NEG (NEG) MDMA (Ecstasy) Screen NEG (NEG) Urine Benzodiazepines Screen NEG (NEG) Urine Cocaine Metabolite NEG (NEG) Urine Marijuana (THC) NEG (NEG) Assessment & Plan Assessment: 42 yo presented to ED with worsening chronic skin infection of lower legs. Recently seen in here in October for similar symptoms/blood clot. Was treated with Vancomycin last week at [facility] x 2 days. Per patient history of MRSA. Afebrile on admission, WBC 4.04 Plan: Patient received 2250 mg (20 mg/kg) loading dose in the ED Will start 1500 mg Q12H, patient with elevated trough in October on q8H and was therapeutic on 1250 mg q12H in August but patient weight up ~ 17 kg. Patient at risk for accumulation with BMI >35. Goal trough level estimate: between 10-20 mcg/mL. Trough level ordered for 01/15 @ 0730 Pharmacy will continue to follow and will adjust dose/frequency as necessary. Thank you
[2018-01-13] MEDS ORDERED: PIPERACILL/TAZOBAC CONSULT ACTIVE PRN (14:45)
[2018-01-13] MEDS ORDERED: GABAPENTIN 800MG LOADING DOSE PO ONE (15:30)
[2018-01-13] MEDS: OXYCODONE/ACETAMINOPHEN 5-325 TAB PO PRN (15:53)
[2018-01-13] MEDS: NICOTINE 14 MG/24 HR TDSY TD SCH (16:45)
[2018-01-13] MEDS: THIAMINE HCL 100 MG TAB PO SCH (16:46)
[2018-01-13] MEDS: RIVAROXABAN 20 MG TAB PO SCH (16:47)
[2018-01-13] MEDS: PIPERACILL/TAZOBAC IV 3.375 GM in DEXTROSE 5% 100ML 100 ML IV SCH ×2 (16:55→23:58)
[2018-01-13] MEDS ORDERED: GADAVIST IV PRN (20:30)
[2018-01-13] MEDS: BUDESONIDE/FORMOTEROL FUMARATE 160/4.5 60 PUFFS/INHALER INH SCH (20:53)
[2018-01-13] MEDS: DOCUSATE SODIUM 100 MG CAP PO SCH (20:54)
[2018-01-13] MEDS: GABAPENTIN 400MG Q6H DOSE PO SCH (20:55)
[2018-01-13] MEDS: TRAZODONE HCL 50 MG TAB PO SCH (20:55)
[2018-01-13] MEDS: PANTOprazole SOD 40 MG TAB PO SCH (20:56)
--- NOTE | 2018-01-13 20:57 | DIAGNOSTIC IMAGING REPORT ---
MRI THE RIGHT LOWER LEG WITHOUT A WITH GADOLINIUM CLINICAL HISTORY: Cellulitis/necrosis evaluate for possible abscess/osteomyelitis. COMPARISON STUDY: Conventional radiographic study dated 01/13/2018 FINDINGS: Imaging was performed in the sagittal axial and coronal planes. Imaging was performed before and after the administration of 11 cc of intravenous Gadavist. There are no areas of marrow edema to indicate neoplasm or osteomyelitis. There are no fluid collections to indicate an abscess. There is diffuse soft tissue edema. There are atrophic changes present within the calf musculature. This is most pronounced in the posterior compartment. IMPRESSION: 1. Diffuse soft tissue edema 2. No evidence of osteomyelitis 3. No evidence of abscess 4. Muscular atrophy Electronically signed by: Heriberto Tiwari M.D. 01/13/2018 8:56 PM Dictated Date/Time: 01/13/2018 8:51 PM
--- NOTE | 2018-01-13 21:05 | DIAGNOSTIC IMAGING REPORT ---
MRI OF THE LEFT LOWER LEG WITHOUT AND WITH GADOLINIUM CLINICAL HISTORY: Cellulitis/necrosis ] for possible abscess/osteomyelitis COMPARISON STUDY: Conventional radiographic study dated 01/13/2018 FINDINGS: Imaging was performed the sagittal axial and coronal planes. Imaging was performed before and after the administration of 11 cc of intravenous Gadavist. There are no areas of marrow edema to indicate neoplasm or osteomyelitis. There are no fluid collections to indicate an abscess. There is diffuse soft tissue edema. There are atrophic changes present within the calf musculature. This is most pronounced the posterior compartment. IMPRESSION: 1. Diffuse soft tissue edema 2. No evidence of osteomyelitis 3. No evidence of abscess 4. Muscular atrophy Electronically signed by: Heriberto Tiwari M.D. 01/13/2018 9:04 PM Dictated Date/Time: 01/13/2018 9:01 PM
[2018-01-13] MEDS: VANCOMYCIN IV 1,500 MG in SODIUM CHLORIDE 0.9% 500ML 500 ML IV SCH (21:41)
[2018-01-13] MEDS: MoRPHine SULFATE 4 MG/ML 1 ML CARP\\VIAL IV PRN (21:43)
[2018-01-13 23:19] VITALS: BP 103/63; PULSE 88; TEMP 36.8; O2SAT 96
[2018-01-14] MEDS: GABAPENTIN 400MG Q6H DOSE PO SCH (06:29)
[2018-01-14] MEDS: OXYCODONE/ACETAMINOPHEN 5-325 TAB PO PRN ×3 (06:32→20:52)
[2018-01-14 07:16] VITALS: BP 117/74; PULSE 71; TEMP 36.8; O2SAT 95
[2018-01-14 07:18] VITALS: BP 117/74; PULSE 71; TEMP 36.8; O2SAT 95
--- NOTE | 2018-01-14 07:38 | Progress Note ---
Progress Note Date of Service January 14, 2018. Progress Note ID Consult Dictated #[id number] A/P: 1. B/L LE wounds -Conitnue emperic abx, follow cultures, thank you
[2018-01-14 07:39] LABS: BASO % 0.6 %; BASO ABS # 0.02 K/uL (0-0.2); EOS % 1.2 %; EOS ABS # 0.04 K/uL (0-0.5); HEMATOCRIT 37.3 % (42-52); HEMOGLOBIN 12.1 g/dL (14.0-18.0); LYMPH % 19.3 %; LYMPH ABS # 0.63 K/uL (1.2-3.4); MEAN CELL VOLUME 92.1 fL (80-100); MEAN CORPUSCULAR HEMOGLOBIN 29.9 pg (25-34); MEAN CORPUSCULAR HGB CONC 32.4 g/dl (32-36); MEAN PLATELET VOLUME 9.3 fL (7.4-10.4); MONO % 10.1 %; MONO ABS # 0.33 K/uL (0.11-0.59); NEUT % 68.8 %; NEUT ABS # 2.24 K/uL (1.4-6.5); PLATELET COUNT 203 K/uL (130-400); RED CELL DISTRIBUTION WIDTH CV 19.8 % (11.5-14.5); RED CELL DISTRIBUTION WIDTH SD 66.5 fL (36.4-46.3); WHITE BLOOD COUNT 3.26 K/uL (4.8-10.8)
[2018-01-14] MEDS: DOCUSATE SODIUM 100 MG CAP PO SCH ×2 (07:42→20:54)
[2018-01-14] MEDS: BUDESONIDE/FORMOTEROL FUMARATE 160/4.5 60 PUFFS/INHALER INH SCH ×2 (07:42→20:12)
[2018-01-14] MEDS: CEROVITE ADV FORMULA TAB PO SCH (07:43)
[2018-01-14] MEDS: PANTOprazole SOD 40 MG TAB PO SCH ×2 (07:43→20:54)
[2018-01-14] MEDS: THIAMINE HCL 100 MG TAB PO SCH (07:43)
[2018-01-14] MEDS: TIOTROPIUM BROMIDE 5 PUFF/90 MCG INH INH SCH (07:45)
[2018-01-14] MEDS: NICOTINE 14 MG/24 HR TDSY TD SCH (07:48)
[2018-01-14] MEDS: MoRPHine SULFATE 4 MG/ML 1 ML CARP\\VIAL IV PRN ×3 (08:03→20:52)
--- NOTE | 2018-01-14 08:04 | INFECT. DISEASE CONSULTATION ---
DATE OF CONSULTATION: 01/14/2018 HISTORY OF PRESENT ILLNESS: This is a 42-year-old gentleman who was admitted to the hospital with worsening lower extremity pain. He does have a history of recurrent cellulitis, most recently in October he grew E. coli which was fairly resistant and MRSA. He was discharged on IV antibiotics to rehab with plans to follow up the wound care center, however, he states that the rehab he was sent to would not send him to the wound care center here and he followed up at a wound center elsewhere. Per the H and P, he was also recently admitted to [facility] and received a course of vancomycin. His only complaint on my exam is feeling tired. He denies any fevers or chills. He was placed on vancomycin and Zosyn. He has been afebrile since admission. His white blood cell count is normal. UA was negative. He did undergo an MRI of his bilateral lower extremities and there was no evidence of osteomyelitis or abscess, but there was diffuse swelling. He also was found to have positive UDS for opiates and positive alcohol screen in the ER. He is tolerating antibiotics well. His remaining review of systems is unremarkable. PAST MEDICAL HISTORY: Significant for recurrent lower extremity cellulitis, chronic DVT, COPD, depression, GERD, alcohol abuse. FAMILY HISTORY: Noncontributory. SOCIAL HISTORY: Significant for daily tobacco use. He does drink. He denies any drug use. ALLERGIES: HE HAS ALLERGIES TO BACTRIM. MEDICATIONS: Neurontin, Santyl, multivitamin, Spiriva, nicotine patch, Symbicort, Colace, Protonix, trazodone, vancomycin, Xarelto, Zosyn, folic acid, Ativan, albuterol, vitamin B, Percocet, morphine, Tylenol, Zofran. PHYSICAL EXAMINATION: VITAL SIGNS: He is afebrile, pulse 71, respiratory rate 18, blood pressure 117/74, oxygen saturation is 95% on room air. GENERAL: He is awake, alert, and oriented x3. She is in no acute distress. HEENT: Mucous membranes are moist. Extraocular muscles are intact. HEART: Regular. LUNGS: Clear bilaterally. ABDOMEN: Soft, nontender, nondistended. EXTREMITIES: There is bilateral lower extremity edema. Dressings are clean, dry, and intact. SKIN: Discolored chronically. LABORATORY STUDIES: CBC: White blood cell count 4.0, hemoglobin 13.3, platelets 231. Chemistry panel: Sodium 135, potassium 4.0, chloride 103, bicarb 22, BUN 5, creatinine 0.6, glucose 112. AST is mildly elevated at 41, ALT was normal. Lipase is normal. Blood cultures are pending. IMAGING: As above. IMPRESSION AND PLAN: Bilateral lower extremity wound. He will remain on empiric IV antibiotics pending additional cultures. If there is any drainage from the wound, culture should be obtained. Thank you for this consultation.
[2018-01-14] MEDS: PIPERACILL/TAZOBAC IV 3.375 GM in DEXTROSE 5% 100ML 100 ML IV SCH ×3 (08:07→23:35)
[2018-01-14 08:12] LABS: BLOOD UREA NITROGEN 6 mg/dl (7-18); CALCIUM 8.4 mg/dl (8.5-10.1); CARBON DIOXIDE 26 mmol/L (21-32); CREATININE 0.73 mg/dl (0.60-1.40); GLUCOSE 106 mg/dl (70-99); POTASSIUM 3.8 mmol/L (3.5-5.1); SODIUM 140 mmol/L (136-145)
[2018-01-14] MEDS: VANCOMYCIN IV 1,500 MG in SODIUM CHLORIDE 0.9% 500ML 500 ML IV SCH ×2 (08:15→20:11)
[2018-01-14] MEDS: COLLAGENASE OINT 30 GM TUBE EXT SCH (14:33)
[2018-01-14] MEDS: GABAPENTIN 400MG Q8H DOSE PO SCH ×2 (14:34→20:53)
[2018-01-14 15:48] VITALS: BP 112/71; PULSE 83; TEMP 36.6; O2SAT 97
[2018-01-14] MEDS: LORAZEPAM 0.5 MG TAB PO PRN (17:59)
[2018-01-14] MEDS: RIVAROXABAN 20 MG TAB PO SCH (18:03)
[2018-01-14] MEDS: TRAZODONE HCL 50 MG TAB PO SCH (20:54)
--- NOTE | 2018-01-14 22:03 | Progress Note ---
Progress Note Date of Service January 14, 2018. Progress Note Subjective Patient was seen earlier today. We discussed his health history. Patient denied excessive alcohol use or history of withdrawal or tremors. Denied fevers or chest pain or shortness of breath or changes with bowel habits or urination. We discussed leg treatment. Physical Exam General Appearance: no distress Head: normocephalic, atraumatic Eyes: normal inspection, EOMI ENT: normal ENT inspection, hearing grossly normal Neck: supple, trachea midline Respiratory/Chest: CTABL, no wheezing Cardiovascular: regular rate, rhythm Abdomen/GI: normal bowel sounds, non tender, soft Back: normal inspection Extremities: multiple ulcers of lower extremities at least stage 2 loss of dermis in bilateral lower extremities below the knee and above the ankle, pedal edema Assessment and Plan bilateral LE cellulitis multiple ulcers of lower extremities at least stage 2 loss of dermis in bilateral lower extremities below the knee and above the ankle Chronic Venous Stasis -continue IV Vancomycin and Zosyn -follow up blood cultures -wound cultures of legs were sent on 01/14/18 -Continue wound care, possible debridement of wounds H/O DVT: -Venous Doppler: Suggestive of chronic B/L DVT slightly improved from prior studies -Continue Xarelto Tobacco use -counseled to quit smoking as smoking does not contribute to wound healing -Nicotine patch H/O COPD: -continue home inhalers Alcohol Abuse disorder? -was started on Alcohol withdrawal protocol with gabapentin, Ativan PRN on admission, continue thiamine, folic acid -patient denies alcohol misuse Mood disorder: -uses ativan at home prn GERD: -continue PPI DVT Px; On Xarelto Code Status: Full Code
[2018-01-15 00:02] VITALS: BP 114/72; PULSE 74; TEMP 36.6; O2SAT 96
[2018-01-15] MEDS: GABAPENTIN 400MG Q8H DOSE PO SCH (06:09)
[2018-01-15] MEDS: OXYCODONE/ACETAMINOPHEN 5-325 TAB PO PRN ×3 (06:09→20:03)
[2018-01-15 07:24] LABS: BASO % 1.2 %; BASO ABS # 0.03 K/uL (0-0.2); EOS % 2.8 %; EOS ABS # 0.07 K/uL (0-0.5); HEMATOCRIT 38.5 % (42-52); HEMOGLOBIN 12.5 g/dL (14.0-18.0); IG# 0.01 K/uL (0.00-0.02); LYMPH % 30.7 %; LYMPH ABS # 0.77 K/uL (1.2-3.4); MEAN CELL VOLUME 92.8 fL (80-100); MEAN CORPUSCULAR HEMOGLOBIN 30.1 pg (25-34); MEAN CORPUSCULAR HGB CONC 32.5 g/dl (32-36); MEAN PLATELET VOLUME 9.1 fL (7.4-10.4); MONO % 5.6 %; MONO ABS # 0.14 K/uL (0.11-0.59); NEUT % 59.3 %; NEUT ABS # 1.49 K/uL (1.4-6.5); PLATELET COUNT 210 K/uL (130-400); RED CELL DISTRIBUTION WIDTH CV 19.5 % (11.5-14.5); RED CELL DISTRIBUTION WIDTH SD 66.3 fL (36.4-46.3); WHITE BLOOD COUNT 2.51 K/uL (4.8-10.8)
[2018-01-15] MEDS ORDERED: VANCOMYCIN TROUGH ONE (07:30)
[2018-01-15 07:45] VITALS: BP 127/85; PULSE 76; TEMP 36.6; O2SAT 98
[2018-01-15] MEDS: MoRPHine SULFATE 4 MG/ML 1 ML CARP\\VIAL IV PRN (07:47)
[2018-01-15] MEDS: TIOTROPIUM BROMIDE 5 PUFF/90 MCG INH INH SCH (07:48)
[2018-01-15] MEDS: BUDESONIDE/FORMOTEROL FUMARATE 160/4.5 60 PUFFS/INHALER INH SCH ×2 (07:49→20:54)
[2018-01-15] MEDS: PANTOprazole SOD 40 MG TAB PO SCH ×2 (07:49→20:54)
[2018-01-15] MEDS: THIAMINE HCL 100 MG TAB PO SCH (07:49)
[2018-01-15] MEDS: DOCUSATE SODIUM 100 MG CAP PO SCH ×2 (07:49→20:54)
[2018-01-15] MEDS: CEROVITE ADV FORMULA TAB PO SCH (07:50)
[2018-01-15 07:54] LABS: CALCIUM 8.6 mg/dl (8.5-10.1); CREATININE 0.79 mg/dl (0.60-1.40); POTASSIUM 3.9 mmol/L (3.5-5.1)
[2018-01-15] MEDS: VANCOMYCIN IV 1,500 MG in SODIUM CHLORIDE 0.9% 500ML 500 ML IV SCH (08:23)
[2018-01-15] MEDS: PIPERACILL/TAZOBAC IV 3.375 GM in DEXTROSE 5% 100ML 100 ML IV SCH ×3 (08:23→23:59)
[2018-01-15] MEDS: COLLAGENASE OINT 30 GM TUBE EXT SCH (09:00)
--- NOTE | 2018-01-15 10:15 | Pharmacy Progress Note ---
Pharmacy Antibiotic Consult Date of Service: January 15, 2018. Pharmacy Dosing Scope Pharmacy is consulted to initiate vancomycin IV dosing therapy, order appropriate labs and adjust drug dose/frequency. Subjective The patient is a 42 year old male admitted on January 13, 2018 at 13:10. Objective Height (Feet): 5 Height (Inches): 9.00 Weight (Kilograms): 110.000 Lab Results (24hrs): Test 01/15/18 07:15 White Blood Count 2.51 K/uL (4.8-10.8) Red Blood Count 4.15 M/uL (4.7-6.1) Hemoglobin 12.5 g/dL (14.0-18.0) Hematocrit 38.5 % (42-52) Mean Corpuscular Volume 92.8 fL (80-100) Mean Corpuscular Hemoglobin 30.1 pg (25-34) Mean Corpuscular Hemoglobin Concent 32.5 g/dl (32-36) Platelet Count 210 K/uL (130-400) Mean Platelet Volume 9.1 fL (7.4-10.4) Neutrophils (%) (Auto) 59.3 % Lymphocytes (%) (Auto) 30.7 % Monocytes (%) (Auto) 5.6 % Eosinophils (%) (Auto) 2.8 % Basophils (%) (Auto) 1.2 % Neutrophils # (Auto) 1.49 K/uL (1.4-6.5) Lymphocytes # (Auto) 0.77 K/uL (1.2-3.4) Monocytes # (Auto) 0.14 K/uL (0.11-0.59) Eosinophils # (Auto) 0.07 K/uL (0-0.5) Basophils # (Auto) 0.03 K/uL (0-0.2) RDW Standard Deviation 66.3 fL (36.4-46.3) RDW Coefficient of Variation 19.5 % (11.5-14.5) Immature Granulocyte % (Auto) 0.4 % Immature Granulocyte # (Auto) 0.01 K/uL (0.00-0.02) Sodium Level 140 mmol/L (136-145) Potassium Level 3.9 mmol/L (3.5-5.1) Chloride Level 108 mmol/L (98-107) Carbon Dioxide Level 27 mmol/L (21-32) Anion Gap 5.0 mmol/L (3-11) Blood Urea Nitrogen 5 mg/dl (7-18) Creatinine 0.79 mg/dl (0.60-1.40) Est Creatinine Clear Calc Drug Dose 147.4 ml/min Estimated GFR () 127.5 Estimated GFR (Non- 110.0 BUN/Creatinine Ratio 6.4 (10-20) Random Glucose 126 mg/dl (70-99) Calcium Level 8.6 mg/dl (8.5-10.1) Magnesium Level 2.1 mg/dl (1.8-2.4) Vancomycin Level Trough 20.5 mcg/ml (SEE COMMENT) Assessment & Plan Assessment * 42 yo M with b/l LE cellulitis * Day 3 of Zosyn and vancomycin * Cultures * 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 Patient is also at risk for accumulation of vancomycin 2nd BMI. * Will therefore decrease vancomycin administered (maintain dose as it is already lower mg/kg but will lengthen interval) * Trough prior to the 4th dose of new regimen (counting last dose of previous regimen as dose #1) Plan * Decrease vancomycin 1500 mg IV q16h * Trough 01/17 @ 0730 Pharmacy will continue to follow and will adjust dose/frequency as necessary. Thank you
--- NOTE | 2018-01-15 10:26 | Progress Note ---
Subjective Date of Service: January 15, 2018. Subjective culture with gnr x 2 from wounds. blood cultures remain negative, afebrile overnight tolerating abx. Problem List Medical Problems: (1) Cellulitis of left lower leg Status: Acute (2) Cellulitis of right lower extremity Status: Acute (3) Chronic deep vein thrombosis (DVT) Status: Chronic (4) DVT of lower extremity, bilateral Status: Acute (5) Superficial thrombosis of both lower extremities Status: Acute Objective Vital Signs Date Time Temp Pulse Resp B/P (MAP) Pulse Ox O2 Delivery O2 Flow Rate FiO2 01/15/18 08:48 Room Air 01/15/18 07:45 36.6 76 18 127/85 (99) 98 Room Air 01/15/18 00:02 36.6 74 18 114/72 (86) 96 Room Air 01/15/18 00:00 Room Air 01/14/18 16:00 Room Air 01/14/18 15:48 36.6 83 20 112/71 (85) 97 Room Air Laboratory Results Item Value Date Time Gram Stain - Final Resulted 01/14/18 0930 Skin Leg Right Lower Gram Stain - Final Resulted 01/14/18 0930 Skin Leg Lower Left Blood Culture - Preliminary Resulted 01/13/18 1030 Blood NO GROWTH TO DATE. Blood Culture - Preliminary Resulted 01/13/18 1000 Blood NO GROWTH TO DATE. Last 24 Hours Test 01/15/18 07:15 White Blood Count 2.51 K/uL Red Blood Count 4.15 M/uL Hemoglobin 12.5 g/dL Hematocrit 38.5 % Mean Corpuscular Volume 92.8 fL Mean Corpuscular Hemoglobin 30.1 pg Mean Corpuscular Hemoglobin Concent 32.5 g/dl Platelet Count 210 K/uL Mean Platelet Volume 9.1 fL Neutrophils (%) (Auto) 59.3 % Lymphocytes (%) (Auto) 30.7 % Monocytes (%) (Auto) 5.6 % Eosinophils (%) (Auto) 2.8 % Basophils (%) (Auto) 1.2 % Neutrophils # (Auto) 1.49 K/uL Lymphocytes # (Auto) 0.77 K/uL Monocytes # (Auto) 0.14 K/uL Eosinophils # (Auto) 0.07 K/uL Basophils # (Auto) 0.03 K/uL RDW Standard Deviation 66.3 fL RDW Coefficient of Variation 19.5 % Immature Granulocyte % (Auto) 0.4 % Immature Granulocyte # (Auto) 0.01 K/uL Sodium Level 140 mmol/L Potassium Level 3.9 mmol/L Chloride Level 108 mmol/L Carbon Dioxide Level 27 mmol/L Anion Gap 5.0 mmol/L Blood Urea Nitrogen 5 mg/dl Creatinine 0.79 mg/dl Est Creatinine Clear Calc Drug Dose 147.4 ml/min Estimated GFR () 127.5 Estimated GFR (Non- 110.0 BUN/Creatinine Ratio 6.4 Random Glucose 126 mg/dl Calcium Level 8.6 mg/dl Magnesium Level 2.1 mg/dl Vancomycin Level Trough 20.5 mcg/ml Assessment and Plan (1) Cellulitis Assessment & Plan: continue abx for now, await final cultures.
[2018-01-15] MEDS: NICOTINE 14 MG/24 HR TDSY TD SCH (12:36)
[2018-01-15] MEDS: LORAZEPAM 0.5 MG TAB PO PRN (12:41)
[2018-01-15] MEDS: RIVAROXABAN 20 MG TAB PO SCH (16:16)
[2018-01-15 16:27] VITALS: BP 156/89; PULSE 71; TEMP 36.9; O2SAT 98
[2018-01-15 16:47] VITALS: O2SAT 96
[2018-01-15] MEDS: GABAPENTIN 400MG Q12H DOSE PO SCH (17:39)
--- NOTE | 2018-01-15 19:07 | Progress Note ---
Progress Note Date of Service January 15, 2018. Progress Note Progress Note Subjective Patient was seen earlier today. Patient reports pain of the legs but no pain elsewhere. Denies shortness of breath or abdominal discomfort. Physical Exam General Appearance: no distress Head: normocephalic, atraumatic Eyes: normal inspection, EOMI ENT: normal ENT inspection, hearing grossly normal Neck: supple, trachea midline Respiratory/Chest: CTABL, no wheezing Cardiovascular: regular rate, rhythm Abdomen/GI: normal bowel sounds, non tender, soft Back: normal inspection Extremities: pedal edema, legs in tight stockings Assessment and Plan bilateral LE cellulitis multiple ulcers of lower extremities at least stage 2 loss of dermis in bilateral lower extremities below the knee and above the ankle Chronic Venous Stasis -have been on IV Vancomycin and Zosyn -blood culture from 01/13/18 are negative, send MRSA swab -wound cultures of legs were sent on 01/14/18 with gram negative bacilli -AQUACEL AG AND DOUBLE LAYER TUBIGRIP as per wound care nurse with wound care physician seeing the patient on 01/15/18 -while there are no positive markers yet for covering MRSA, given the severe nature of patient's legs, would continue broad spectrum antibiotics with Vancomycin and Zosyn for now -follow Infectious Disease recommendations H/O DVT: -Venous Doppler: Suggestive of chronic B/L DVT slightly improved from prior studies -Continue Xarelto Tobacco use -counseled to quit smoking as smoking does not contribute to wound healing -Nicotine patch H/O COPD: -continue home inhalers Alcohol Abuse disorder? -was started on Alcohol withdrawal protocol with gabapentin, Ativan PRN on admission, continue thiamine, folic acid -patient denies alcohol misuse Mood disorder: -uses ativan at home prn GERD: -continue PPI DVT Px; On Xarelto Code Status: Full Code
[2018-01-15] MEDS: TRAZODONE HCL 50 MG TAB PO SCH (20:54)
[2018-01-15 23:38] VITALS: BP 130/75; PULSE 74; TEMP 36.7; O2SAT 96
[2018-01-16] VITALS: O2SAT 96
[2018-01-16] MEDS ORDERED: VANCOMYCIN IV 1,500 MG in SODIUM CHLORIDE 0.9% 500ML 500 ML IV SCH ×2
[2018-01-16] MEDS: OXYCODONE/ACETAMINOPHEN 5-325 TAB PO PRN ×3 (05:46→20:31)
[2018-01-16] MEDS: GABAPENTIN 400MG Q12H DOSE PO SCH (05:46)
[2018-01-16 07:19] VITALS: BP 144/87; PULSE 84; TEMP 37; O2SAT 94
[2018-01-16 07:35] LABS: BASO % 0.6 %; BASO ABS # 0.02 K/uL (0-0.2); EOS % 2.3 %; EOS ABS # 0.07 K/uL (0-0.5); HEMATOCRIT 38.4 % (42-52); HEMOGLOBIN 12.8 g/dL (14.0-18.0); IG# 0.01 K/uL (0.00-0.02); LYMPH % 27.6 %; LYMPH ABS # 0.85 K/uL (1.2-3.4); MEAN CELL VOLUME 93.4 fL (80-100); MEAN CORPUSCULAR HEMOGLOBIN 31.1 pg (25-34); MEAN CORPUSCULAR HGB CONC 33.3 g/dl (32-36); MEAN PLATELET VOLUME 9.5 fL (7.4-10.4); MONO % 5.8 %; MONO ABS # 0.18 K/uL (0.11-0.59); NEUT % 63.4 %; NEUT ABS # 1.95 K/uL (1.4-6.5); PLATELET COUNT 230 K/uL (130-400); RED CELL DISTRIBUTION WIDTH CV 18.8 % (11.5-14.5); RED CELL DISTRIBUTION WIDTH SD 64.5 fL (36.4-46.3); WHITE BLOOD COUNT 3.08 K/uL (4.8-10.8)
[2018-01-16 08:10] LABS: CREATININE 0.8 mg/dl (0.60-1.40)
--- NOTE | 2018-01-16 08:14 | Wound Consultation: Inpatient ---
Wound Consultation Date of Consultation: January 15, 2018. Attending Physician: Augustin Pendleton M.D. Reason for Consultation: Bilateral lower extremity cellulitis History of Present Illness Patient was admitted yesterday for evaluation for the treatment of bilateral lower extremity cellulitis. Patient has had a history of chronic venous insufficiency with venous stasis ulcerations and associated cellulitis for many years. Patient has been seen in the past for similar conditions however has been difficult and allowing certain specific appropriate management therapies to be instituted. Patient states that these have been present for the past 2 months while he was in rehabilitation treated with Silvadene ointment and Santyl. Patient currently denies any increased pain. Patient denies any fever chills or night sweats. Patient denies any chest pain shortness of breath abdominal discomfort nausea or vomiting. Patient denies any other systemic complaints at this time. Family History Hypercoagulability MOTHER Social History Smoking Status: Current Every Day Smoker Alcohol Use: socially Drug Use: none Marital Status: single Allergies Coded Allergies: Pea (Unverified Allergy, Unknown, ., 10/31/17) Sulfamethoxazole w/Trimethoprim (Unverified Allergy, Unknown, hives, ) Tuna (Verified Allergy, Unknown, ., 11/01/17) Pt reported an allergy to peas & tuna to RD (EV) last adm. 08/2017; rxn unknown. Home Medications Scheduled Budesonide/Formoterol Fumarate (Symbicort 160/4.5 Inhaler ), 2 PUFFS INH BID Collagenase (Santyl), 1 APPLN EXT DAILY Docusate Sodium (Colace), 100 MG PO BID Folic Acid (Folic Acid), 1 MG PO DAILY Lactic Acid (Ammonium Lactate) (Amlactin), 1 APPL EXT DAILY Lactobacillus (Lactinex), 2 TAB PO TID Multivitamins/Minerals (Certavite/Antioxidants), 1 TAB PO QAM Nicotine (Nicoderm Cq 14MG Patch), 14 MG TD QAM Omeprazole (Prilosec), 20 MG PO BID Rivaroxaban (Xarelto), 15 MG PO BID Thiamine HCl (Vitamin B-1), 100 MG PO DAILY Tiotropium [place] (Spiriva Handihaler), 1 CAP INH DAILY Trazodone HCl (Trazodone HCl), 1 TAB PO HS Scheduled PRN Albuterol Hfa (Ventolin Hfa), 2 PUFFS INH Q6H PRN for SOB/Wheezing Oxycodone/Acetaminophen 5MG/325MG (Percocet 5MG/325MG), 1 TABLET PO Q8 PRN for Pain Inpatient Medications Current Inpatient Medications Medications (Trade) Dose Ordered Sig/Ilia Route Start Time Stop Time Status Last Admin Dose Admin Acetaminophen (Tylenol Tab) 650 mg Q4H PRN PO 01/13/18 13:15 02/12/18 13:14 Ondansetron HCl (Zofran Inj) 4 mg Q6H PRN IV 01/13/18 13:15 02/12/18 13:14 Albuterol/ Ipratropium (Duoneb) 3 ml Q4R PRN INH 01/13/18 13:30 02/12/18 13:29 Lorazepam (Ativan Tab) 1 mg ONE PRN PO 01/13/18 13:30 Nicotine (Nicoderm Cq 14MG Patch) 1 patch QAM TD 01/13/18 15:00 02/12/18 14:59 01/15/18 12:36 1 PATCH Miscellaneous (Remove Nicoderm Patch) 1 ea HS N/A 01/13/18 21:00 02/12/18 20:59 01/15/18 20:53 1 EA Thiamine HCl (Vitamin B-1 Tab) 100 mg QAM PO 01/13/18 13:30 02/12/18 13:29 01/15/18 07:49 100 MG Folic Acid (Folvite Tab) 1 mg QAM PO 01/13/18 15:00 02/12/18 14:59 01/15/18 07:49 1 MG Budesonide/ Formoterol Fumarate (Symbicort 160/ 4.5 Inh) 2 puffs BID INH 01/13/18 21:00 02/12/18 20:59 01/15/18 20:54 2 PUFFS Collagenase (Santyl Oint) 1 appln DAILY EXT 01/14/18 09:00 02/13/18 08:59 01/14/18 14:33 1 APPLN Docusate Sodium (coLACE CAP) 100 mg BID PO 01/13/18 21:00 02/12/18 20:59 01/15/18 20:54 100 MG Multivitamins/ Minerals (Multivitamin W/ Minerals Tab) 1 tab QAM PO 01/14/18 09:00 02/13/18 08:59 01/15/18 07:50 1 TAB Oxycodone/ Acetaminophen (Percocet 5-325mg Tab) 1 tab Q6 PRN PO 01/13/18 13:30 01/27/18 13:29 01/16/18 05:46 1 TAB Tiotropium [place] (Spiriva Handihaler Inhaler) 1 puff DAILY INH 01/14/18 09:00 02/13/18 08:59 01/15/18 07:48 1 PUFF Pantoprazole Sodium (Protonix Tab) 40 mg BID PO 01/13/18 21:00 02/12/18 20:59 01/15/18 20:54 40 MG Trazodone HCl (Desyrel Tab) 150 mg HS PO 01/13/18 21:00 02/12/18 20:59 01/15/18 20:54 150 MG Rivaroxaban (Xarelto Tab) 20 mg QDD PO 01/13/18 17:00 02/12/18 16:59 01/15/18 16:16 20 MG Miscellaneous Information (Consult) 1 ea UD PRN N/A 01/13/18 14:45 02/12/18 14:44 Miscellaneous Information (Consult) 1 ea UD PRN N/A 01/13/18 14:45 02/12/18 14:44 Piperacillin Sod/ Tazobactam Sod 3.375 gm/Dextrose 115 ml @ 28.75 mls/ hr Q8H IV 01/13/18 16:00 01/23/18 15:59 01/15/18 23:59 28.75 MLS/HR Gabapentin (Neurontin Cap) 400 mg Q24H PO 01/17/18 06:00 01/17/18 06:01 Gadobutrol (Gadavist) 11 mmol UD PRN IV 01/13/18 20:30 01/17/18 20:29 Lorazepam (Ativan Tab) 0.5 mg Q12H PRN PO 01/14/18 16:45 02/13/18 16:44 01/15/18 12:41 0.5 MG Vancomycin HCl 1500 mg/Sodium Chloride 530 ml @ 200 mls/hr Q16H IV 01/16/18 00:00 01/23/18 07:59 01/15/18 23:59 200 MLS/HR Physical Exam Date Time Temp Pulse Resp B/P (MAP) Pulse Ox O2 Delivery O2 Flow Rate FiO2 01/16/18 07:19 37.0 84 20 144/87 (106) 94 Room Air 01/16/18 00:00 96 Room Air 01/15/18 23:38 36.7 74 20 130/75 (93) 96 Room Air 01/15/18 16:47 96 Room Air 01/15/18 16:27 36.9 71 16 156/89 (111) 98 Room Air 01/15/18 08:48 Room Air General: The patient is lying in hospital bed in no distress. Alert, cooperative and appropriate to all questions. HEENT: Pupils equal and reactive to light. Sclera clear, EOM intact. Neck: Supple, No JVD noted Chest: CTA in all johnson. No deformity Heart: RRR without murmurs, S3, S4, thrills, rubs or heaves Extremities: Multiple scattered deep ulcerations present on both lower extremities from the knee distal. No significant central slough is noted at this time. Brawny induration and minimal edema is also present. There is periwound maceration present at the sites. No active drainage or odor noted. No significant erythema present. Range of motion is intact. Distal neurovascular bundles intact. Neurological: Alert and oriented x3. No focal deficits. Laboratory Results Last 24 Hours Test 01/16/18 06:53 White Blood Count 3.08 K/uL Red Blood Count 4.11 M/uL Hemoglobin 12.8 g/dL Hematocrit 38.4 % Mean Corpuscular Volume 93.4 fL Mean Corpuscular Hemoglobin 31.1 pg Mean Corpuscular Hemoglobin Concent 33.3 g/dl Platelet Count 230 K/uL Mean Platelet Volume 9.5 fL Neutrophils (%) (Auto) 63.4 % Lymphocytes (%) (Auto) 27.6 % Monocytes (%) (Auto) 5.8 % Eosinophils (%) (Auto) 2.3 % Basophils (%) (Auto) 0.6 % Neutrophils # (Auto) 1.95 K/uL Lymphocytes # (Auto) 0.85 K/uL Monocytes # (Auto) 0.18 K/uL Eosinophils # (Auto) 0.07 K/uL Basophils # (Auto) 0.02 K/uL RDW Standard Deviation 64.5 fL RDW Coefficient of Variation 18.8 % Immature Granulocyte % (Auto) 0.3 % Immature Granulocyte # (Auto) 0.01 K/uL Assessment & Plan Assessment: Bilateral venous stasis ulcerations with associated cellulitis. Peripheral edema Chronic venous insufficiency Plan: No debridement will be performed today. The sites will be dressed with Aquacel Ag and gauze to layer Tubigrip applied. Dressings to be changed daily. Further debridement and or Santyl application will be evaluated in the next 2- 3 days. Patient will continue to be monitored during his hospitalization and can be followed up in the outpatient wound clinic upon discharge.
[2018-01-16] MEDS: PIPERACILL/TAZOBAC IV 3.375 GM in DEXTROSE 5% 100ML 100 ML IV SCH ×2 (08:17→16:09)
[2018-01-16] MEDS: TIOTROPIUM BROMIDE 5 PUFF/90 MCG INH INH SCH (08:17)
[2018-01-16] MEDS: NICOTINE 14 MG/24 HR TDSY TD SCH (08:18)
[2018-01-16] MEDS: BUDESONIDE/FORMOTEROL FUMARATE 160/4.5 60 PUFFS/INHALER INH SCH ×2 (08:18→20:07)
[2018-01-16] MEDS: DOCUSATE SODIUM 100 MG CAP PO SCH ×2 (08:18→20:07)
[2018-01-16] MEDS: CEROVITE ADV FORMULA TAB PO SCH (08:19)
[2018-01-16] MEDS: THIAMINE HCL 100 MG TAB PO SCH (08:19)
[2018-01-16] MEDS: COLLAGENASE OINT 30 GM TUBE EXT SCH (08:19)
[2018-01-16] MEDS: PANTOprazole SOD 40 MG TAB PO SCH ×2 (08:19→20:08)
[2018-01-16 08:43] VITALS: O2SAT 96
--- NOTE | 2018-01-16 11:16 | Progress Note ---
Internal Med Progress Note Date of Service: January 16, 2018. Provider Documentation: SUBJECTIVE: Seen and examined at bedside Complains of B/L LE pain while getting dressing change this morning Denies SOB, chest pain, dizziness, nausea No other complaints OBJECTIVE: Vital Signs-as noted below Physical Exam: General Appearance:Moderately built and nourished, no apparent distress Head: normocephalic, Atraumatic Eyes: normal inspection, EOMI, PERRL Neck: supple, Trachea midline Respiratory/Chest: Decreased breath sounds, Scattered wheezes Cardiovascular: S1, S2, No murmur Abdomen/GI:Soft, Non tender, Bowel sounds present Extremities/Musculoskelatal:Chronic Venous stasis ulcers with necrosis and edema Neurologic/Psych:AAOX3, grossly no focal neurological deficits Skin: normal color, warm Lab data as noted below. ASSESSMENT & PLAN: B/L LE cellulitis Multiple Chronic Venous ulcers of B/L LE: Stage 2 Chronic Venous Stasis Continue IV Vancomycin and Zosyn Appreciate ID recommendations Blood culture; No growth Wound Culture:E.coli, Pseudomonas Continue wound care as per recommendations Continue wound Care May need debridement in 2-3 days H/O DVT: Venous Doppler: Suggestive of chronic B/L DVT slightly improved from prior studies Continue Xarelto Tobacco use counseled to quit smoking Nicotine patch H/O COPD: continue home inhalers ?Alcohol Abuse disorder continue thiamine, folic acid counselor/art therapist to quit drinking Mood disorder: continue home meds GERD: continue PPI DVT Px; On Xarelto Code Status: Full Code Disposition: Plan to DC to SNF when stable for discharge PT/OT Vital Signs: Date Time Temp Pulse Resp B/P (MAP) Pulse Ox O2 Delivery O2 Flow Rate FiO2 01/16/18 08:43 96 Room Air 01/16/18 07:19 37.0 84 20 144/87 (106) 94 Room Air 01/16/18 00:00 96 Room Air 01/15/18 23:38 36.7 74 20 130/75 (93) 96 Room Air 01/15/18 16:47 96 Room Air 01/15/18 16:27 36.9 71 16 156/89 (111) 98 Room Air Lab Results: Results Past 24 Hours Test 01/16/18 06:53 Range/Units White Blood Count 3.08 4.8-10.8 K/uL Red Blood Count 4.11 4.7-6.1 M/uL Hemoglobin 12.8 14.0-18.0 g/dL Hematocrit 38.4 42-52 % Mean Corpuscular Volume 93.4 80-100 fL Mean Corpuscular Hemoglobin 31.1 25-34 pg Mean Corpuscular Hemoglobin Concent 33.3 32-36 g/dl Platelet Count 230 130-400 K/uL Mean Platelet Volume 9.5 7.4-10.4 fL Neutrophils (%) (Auto) 63.4 % Lymphocytes (%) (Auto) 27.6 % Monocytes (%) (Auto) 5.8 % Eosinophils (%) (Auto) 2.3 % Basophils (%) (Auto) 0.6 % Neutrophils # (Auto) 1.95 1.4-6.5 K/uL Lymphocytes # (Auto) 0.85 1.2-3.4 K/uL Monocytes # (Auto) 0.18 0.11-0.59 K/uL Eosinophils # (Auto) 0.07 0-0.5 K/uL Basophils # (Auto) 0.02 0-0.2 K/uL RDW Standard Deviation 64.5 36.4-46.3 fL RDW Coefficient of Variation 18.8 11.5-14.5 % Immature Granulocyte % (Auto) 0.3 % Immature Granulocyte # (Auto) 0.01 0.00-0.02 K/uL Creatinine 0.80 0.60-1.40 mg/dl Est Creatinine Clear Calc Drug Dose 145.6 ml/min Estimated GFR () 126.8 Estimated GFR (Non- 109.4 Microbiology Results 01/15/18 MRSA DNA Surveillance Screen - Final, Complete Specimen Negative for MRSA by DNA Probe
--- NOTE | 2018-01-16 12:31 | Progress Note ---
Subjective Date of Service: January 16, 2018. Subjective Pt evaluation today including: conversation w/ patient, physical exam, chart review, lab review pt seen in followup, alexis strong. oob to chair. saw wound center, plans to followup post d/c. tolerating abx. no f/c, only complaint is of pain in legs. no abd pain, no n/v/d. all remaining ros reviewed and are negative. Problem List Medical Problems: (1) Cellulitis of left lower leg Status: Acute (2) Cellulitis of right lower extremity Status: Acute (3) Chronic deep vein thrombosis (DVT) Status: Chronic (4) DVT of lower extremity, bilateral Status: Acute (5) Superficial thrombosis of both lower extremities Status: Acute Objective Vital Signs Date Time Temp Pulse Resp B/P (MAP) Pulse Ox O2 Delivery O2 Flow Rate FiO2 01/16/18 08:43 96 Room Air 01/16/18 07:19 37.0 84 20 144/87 (106) 94 Room Air 01/16/18 00:00 96 Room Air 01/15/18 23:38 36.7 74 20 130/75 (93) 96 Room Air 01/15/18 16:47 96 Room Air 01/15/18 16:27 36.9 71 16 156/89 (111) 98 Room Air Physical Exam General Appearance: WD/WN, no apparent distress Eyes: normal inspection, EOMI Neck: supple Respiratory/Chest: lungs clear, normal breath sounds, no respiratory distress Cardiovascular: regular rate, rhythm, no edema Abdomen: soft Extremities: non-tender, + swelling Neurologic/Psychiatric: alert, oriented x 3 Skin: normal color Comments: dressings c/d/i b/l le Laboratory Results Item Value Date Time Blood Culture - Preliminary Resulted 01/13/18 1000 Blood NO GROWTH TO DATE. Blood Culture - Preliminary Resulted 01/13/18 1030 Blood NO GROWTH TO DATE. Gram Stain - Final Complete 01/14/18 0930 Skin Leg Lower Left Gram Stain - Final Complete 01/14/18 0930 Skin Leg Right Lower Last 24 Hours Test 01/16/18 06:53 White Blood Count 3.08 K/uL Red Blood Count 4.11 M/uL Hemoglobin 12.8 g/dL Hematocrit 38.4 % Mean Corpuscular Volume 93.4 fL Mean Corpuscular Hemoglobin 31.1 pg Mean Corpuscular Hemoglobin Concent 33.3 g/dl Platelet Count 230 K/uL Mean Platelet Volume 9.5 fL Neutrophils (%) (Auto) 63.4 % Lymphocytes (%) (Auto) 27.6 % Monocytes (%) (Auto) 5.8 % Eosinophils (%) (Auto) 2.3 % Basophils (%) (Auto) 0.6 % Neutrophils # (Auto) 1.95 K/uL Lymphocytes # (Auto) 0.85 K/uL Monocytes # (Auto) 0.18 K/uL Eosinophils # (Auto) 0.07 K/uL Basophils # (Auto) 0.02 K/uL RDW Standard Deviation 64.5 fL RDW Coefficient of Variation 18.8 % Immature Granulocyte % (Auto) 0.3 % Immature Granulocyte # (Auto) 0.01 K/uL Creatinine 0.80 mg/dl Est Creatinine Clear Calc Drug Dose 145.6 ml/min Estimated GFR () 126.8 Estimated GFR (Non- 109.4 Assessment and Plan (1) Cellulitis Assessment & Plan: culture results reviewed, will maintian on IV abx for now, will stop vanco as not gpc identified. upon d/c would suggest po omnicef 300mg po bid and levaquin 500mg po daily x 21 days with planned followup in wound center.
[2018-01-16 16:06] VITALS: BP 167/95; PULSE 71; TEMP 36.9; O2SAT 97
[2018-01-16] MEDS: RIVAROXABAN 20 MG TAB PO SCH (17:44)
[2018-01-16] MEDS: TRAZODONE HCL 50 MG TAB PO SCH (20:08)
[2018-01-16] MEDS: LORAZEPAM 0.5 MG TAB PO PRN (20:31)
[2018-01-17 00:01] VITALS: BP 152/89; PULSE 60; TEMP 36.6; O2SAT 94
[2018-01-17] MEDS: PIPERACILL/TAZOBAC IV 3.375 GM in DEXTROSE 5% 100ML 100 ML IV SCH ×2 (00:05→07:51)
[2018-01-17] MEDS ORDERED: GABAPENTIN 400MG X1 DOSE PO SCH (06:00)
[2018-01-17] MEDS: OXYCODONE/ACETAMINOPHEN 5-325 TAB PO PRN (06:35)
[2018-01-17 07:04] VITALS: BP 160/93; PULSE 64; TEMP 36.5; O2SAT 96
[2018-01-17] MEDS ORDERED: VANCOMYCIN TROUGH ONE (07:30)
[2018-01-17] MEDS: COLLAGENASE OINT 30 GM TUBE EXT SCH (07:51)
[2018-01-17] MEDS: NICOTINE 14 MG/24 HR TDSY TD SCH (07:52)
[2018-01-17] MEDS: DOCUSATE SODIUM 100 MG CAP PO SCH (07:52)
[2018-01-17] MEDS: CEROVITE ADV FORMULA TAB PO SCH (07:52)
[2018-01-17] MEDS: PANTOprazole SOD 40 MG TAB PO SCH (07:52)
[2018-01-17] MEDS: BUDESONIDE/FORMOTEROL FUMARATE 160/4.5 60 PUFFS/INHALER INH SCH (07:52)
[2018-01-17] MEDS: THIAMINE HCL 100 MG TAB PO SCH (07:52)
[2018-01-17] MEDS: TIOTROPIUM BROMIDE 5 PUFF/90 MCG INH INH SCH (07:53)
--- NOTE | 2018-01-17 10:01 | Progress Note ---
Subjective Date of Service: January 17, 2018. Subjective tolerating abx. culture final, blood cultures negative, afebrile. for f/u in wound center post d/c. Problem List Medical Problems: (1) Cellulitis of left lower leg Status: Acute (2) Cellulitis of right lower extremity Status: Acute (3) Chronic deep vein thrombosis (DVT) Status: Chronic (4) DVT of lower extremity, bilateral Status: Acute (5) Superficial thrombosis of both lower extremities Status: Acute Objective Vital Signs Date Time Temp Pulse Resp B/P (MAP) Pulse Ox O2 Delivery O2 Flow Rate FiO2 01/17/18 07:04 36.5 64 16 160/93 (115) 96 Room Air 01/17/18 00:35 Room Air 01/17/18 00:01 36.6 60 18 152/89 (110) 94 Room Air 01/16/18 16:06 36.9 71 18 167/95 (119) 97 Room Air 01/16/18 16:00 Room Air Laboratory Results Item Value Date Time Gram Stain - Final Complete 01/14/18 0930 Skin Leg Right Lower Gram Stain - Final Complete 01/14/18 0930 Skin Leg Lower Left Assessment and Plan (1) Cellulitis Assessment & Plan: culture results reviewed, will maintian on IV abx for now, will stop vanco as not gpc identified. upon d/c would suggest po omnicef 300mg po bid and levaquin 500mg po daily x 21 days with planned followup in wound center. wbc count low, ? related to cellulits, would offer hcv screen as well.
[2018-01-17] MEDS ORDERED: SILV1PAD9 EX (13:33)
--- NOTE | 2018-01-17 13:39 | Progress Note ---
Internal Med Progress Note Date of Service: January 17, 2018. Provider Documentation: SUBJECTIVE: Seen and examined at bedside Doing well No complaints Denies SOB, chest pain, dizziness, nausea OBJECTIVE: Vital Signs-as noted below Physical Exam: General Appearance:Moderately built and nourished, no apparent distress Head: normocephalic, Atraumatic Eyes: normal inspection, EOMI, PERRL Neck: supple, Trachea midline Respiratory/Chest: Decreased breath sounds, Scattered wheezes Cardiovascular: S1, S2, No murmur Abdomen/GI:Soft, Non tender, Bowel sounds present Extremities/Musculoskelatal:Chronic Venous stasis ulcers with necrosis and edema in bandage Neurologic/Psych:AAOX3, grossly no focal neurological deficits Skin: normal color, warm Lab data as noted below. ASSESSMENT & PLAN: B/L LE cellulitis Multiple Chronic Venous ulcers of B/L LE: Stage 2 Chronic Venous Stasis Continue IV Vancomycin and Zosyn>>DC Vanco, continue Zosyn Appreciate ID recommendations Blood culture; No growth Wound Culture:E.coli, Pseudomonas Continue wound care as per recommendations Continue wound Care May need debridement as outpatient H/O DVT: Venous Doppler: Suggestive of chronic B/L DVT slightly improved from prior studies Continue Xarelto Tobacco use counseled to quit smoking Nicotine patch H/O COPD: continue home inhalers ?Alcohol Abuse disorder continue thiamine, folic acid application counselor to quit drinking Mood disorder: continue home meds GERD: continue PPI DVT Px; On Xarelto Code Status: Full Code Disposition: Plan to discharge home today Follow up with your PCP Antonio Jo in 1 week Follow up with your Infectious disease in 2 weeks Follow up with at wound clinic on January 26 at 8:30AM Complete the antibiotics as prescribed Seek immediate medical attention if your symptoms reoccur or worsen Vital Signs: Date Time Temp Pulse Resp B/P (MAP) Pulse Ox O2 Delivery O2 Flow Rate FiO2 01/17/18 08:00 Room Air 01/17/18 07:04 36.5 64 16 160/93 (115) 96 Room Air 01/17/18 00:35 Room Air 01/17/18 00:01 36.6 60 18 152/89 (110) 94 Room Air 01/16/18 16:06 36.9 71 18 167/95 (119) 97 Room Air 01/16/18 16:00 Room Air
[2018-01-17] MEDS ORDERED: CEFD300C2 PO (13:42)
[2018-01-17] MEDS ORDERED: LEVO-459 PO (13:42)
[2018-01-17] MEDS ORDERED: OXYC-57 PO (13:42)
--- NOTE | 2018-01-17 13:52 | Discharge Summary ---
Discharge Summary Date of Service January 17, 2018. Discharge Summary Admission Date: January 13, 2018 at 13:10 Discharge Date: January 17, 2018 Discharge Disposition: Home Principal Diagnosis: Bilateral lower extremity Cellulitis Procedures: Venous Doppler; Bilateral lower extremity nonocclusive DVT as described above. This appears to be slightly improved compared to the prior study and therefore favors chronic DVT. Leg X ray: 1. No fractures within the right or left lower leg. 2. Skin thickening, soft tissue edema, and skin blisters within the bilateral lower legs. This favors chronic venous stasis/insufficiency. 3. Therefore, this chronic venous stasis/insufficiency likely results in the periosteal reaction within the bilateral tibia/fibula. CXR: No change in the mild cardiomegaly and chronic interstitial thickening. Therefore, no acute process within the chest. B/L LE MRI: 1. Diffuse soft tissue edema 2. No evidence of osteomyelitis 3. No evidence of abscess 4. Muscular atrophy Consultations: ID, Wound Care Pending Studies/Follow-Up: Follow up with your PCP Antonio Jo in 1 week Follow up with your Infectious disease in 2 weeks Follow up with at wound clinic on January 26 at 8:30AM Complete the antibiotics as prescribed Seek immediate medical attention if your symptoms reoccur or worsen Quit smoking as advised Continue dressing wounds regularly as advised Medication Reconciliation New Medications: Cefdinir (Omnicef) 300 Mg Cap 300 MG PO Q12H for 21 Days, #42 CAP Levofloxacin (Levaquin) 500 Mg Tab 500 MG PO DAILY for 21 Days, #21 TABS Silver-Carboxymethylcellulose (Aquacel Ag Extra 4" X 5"/) 1 Pad Pad 1 EA EX DAILY for 7 Days, #28 EA Continued Medications: Albuterol Hfa (Ventolin Hfa) 200 Puffs/65178 Mcg Aers 2 PUFFS INH Q6H PRN for SOB/Wheezing, INHALER Budesonide/Formoterol Fumarate (Symbicort 160/4.5 Inhaler ) Aero 2 PUFFS INH BID, INHALER Collagenase (Santyl) 250 Unit/Gm Oin 1 APPLN EXT DAILY for 30 Days, #1 TUBE Docusate Sodium (Colace) 100 Mg Cap 100 MG PO BID, CAP Folic Acid (Folic Acid) 1 Mg Tab 1 MG PO DAILY, TAB Lactic Acid (Ammonium Lactate) (Amlactin) 12 % Lot 1 APPL EXT DAILY for 30 Days, #1 TUBE Lactobacillus (Lactinex) Chw 2 TAB PO TID for 40 Days, CHW Multivitamins/Minerals (Certavite/Antioxidants) 1 Tab Tab 1 TAB PO QAM for 30 Days, #30 TAB Nicotine (Nicoderm Cq 14MG Patch) 14 Mg/24 Hr Dis 14 MG TD QAM for 30 Days, #1 BOX Omeprazole (Prilosec) 20 Mg Capcr 20 MG PO BID, CAP Oxycodone/Acetaminophen 5MG/325MG (Percocet 5MG/325MG) Tab 1 TABLET PO Q8 PRN for Pain for 3 Days, #10 TAB (This prescription has been renewed) Rivaroxaban (Xarelto) 15 Mg Tab 15 MG PO BID for 16 Days, #32 TAB Thiamine HCl (Vitamin B-1) 100 Mg Tab 100 MG PO DAILY, TAB Tiotropium Hastings (Spiriva Handihaler) 30 Puff/540 Mcg Aerp 1 CAP INH DAILY for 30 Days, #30 CAP 3 Refills Trazodone HCl (Trazodone HCl) 150 Mg Tab 1 TAB PO HS for Sleep Admission Information HPI (per Admitting provider): Patient is a 42-year-old male with past medical history of COPD, B/L LE DVT on chronic anticoagulation, alcohol and tobacco use disorder, mood disorder, chronic venous stasis ulcers, GERD, history of MRSA and thrombocytopenia and other problems presents with history of worsening bilateral lower extremity wounds and pain. Patient reports recurrent infection of bilateral lower extremity wounds and had debridement in the past. Patient was recently admitted at [facility] and was treated with vancomycin. Patient reports having chronic infection since past 13 years and was debrided on multiple occasions. He reports sharp stabbing pain in legs, 7/10 intensity, increased swelling of legs. He admits to dressing regularly and follows with wound clinic as outpatient. Also reports decreased appetite since last few days and has chronic cough associated with wheezing which is unchanged. He drinks socially and last alcohol drink was yesterday. Denies any h/o withdrawal in the past. Denies any history of chest pain, SOB, dizziness, diaphoresis, fever, chills, headache, weakness, nausea, vomiting, abdominal pain, diarrhea, dysuria. Physical Exam (per Admitting): General Appearance: WD/WN, no apparent distress Head: normocephalic, atraumatic Eyes: normal inspection, PERRL, EOMI, sclerae normal ENT: normal ENT inspection, hearing grossly normal Neck: supple, trachea midline Respiratory/Chest: chest non-tender, no respiratory distress, no accessory muscle use, + wheezing (Scattered), + pertinent finding (Coarse breath sounds) Cardiovascular: regular rate, rhythm, no murmur, + tachycardia Abdomen/GI: normal bowel sounds, non tender, soft Back: normal inspection Extremities/Musculoskelatal: normal inspection, + pedal edema, + pertinent finding (Chronic venous ulcers, wounds, B/L LE edema, foul smelling necrotic tissue) Neurologic/Psych: still runner II-XII nml as tested, no motor/sensory deficits, alert , normal mood/affect, oriented x 3 Skin: normal color, + pertinent finding (LE chronic venous stasis changes) Hospital Course B/L LE cellulitis Multiple Chronic Venous ulcers of B/L LE: Stage 2 Chronic Venous Stasis Continue IV Vancomycin and Zosyn>>DC Vanco, continue Zosyn Appreciate ID recommendations Blood culture; No growth Wound Culture:E.coli, Pseudomonas Continue wound care as per recommendations Continue wound Care May need debridement as outpatient H/O DVT: Venous Doppler: Suggestive of chronic B/L DVT slightly improved from prior studies Continue Xarelto Tobacco use counseled to quit smoking Nicotine patch H/O COPD: continue home inhalers ?Alcohol Abuse disorder continue thiamine, folic acid intake counselor to quit drinking Mood disorder: continue home meds GERD: continue PPI DVT Px; On Xarelto Code Status: Full Code Disposition: Plan to discharge home today Follow up with your PCP Antonio Jo in 1 week Follow up with your Infectious disease in 2 weeks Follow up with at wound clinic on January 26 at 8:30AM Complete the antibiotics as prescribed Seek immediate medical attention if your symptoms reoccur or worsen Total time spent on discharge = 40 minutes This includes examination of the patient, discharge planning, medication reconciliation, and communication with other providers. Discharge Instructions Discharge Instructions Date of Service January 17, 2018. Admission Reason for Admission: Cellulitis Of Both Lower Extremities Discharge Discharge Diagnosis / Problem: Bilateral lower extremity Cellulitis Discharge Goals Goal(s): Decrease discomfort, Improve function Activity Recommendations Activity Limitations: resume your previous activity Exercise/Sports Limitations: as tolerated . Instructions / Follow-Up Instructions / Follow-Up Follow up with your PCP Antonio Jo in 1 week Follow up with your Infectious disease in 2 weeks Follow up with at wound clinic on January 26 at 8:30AM Complete the antibiotics as prescribed Seek immediate medical attention if your symptoms reoccur or worsen Quit smoking as advised Continue dressing wounds regularly as advised Current Hospital Diet Patient's current hospital diet: AHA Diet (Heart Healthy) Discharge Diet Recommended Diet: AHA Diet (Heart Healthy) Pending Studies Studies pending at discharge: no Laboratory Results Hemoglobin A1c Test 10/31/17 00:00 Range/Units Estimated Average Glucose 120 mg/dl Hemoglobin A1c 5.8 H 4.5-5.6 % Medical Emergencies . Who to Call and When: Medical Emergencies: If at any time you feel your situation is an emergency, please call 911 immediately. . Non-Emergent Contact Non-Emergency issues call your: Primary Care Provider, Specialist (Infectious disease, wound physician) Call Non-Emergent contact if: you have a fever, your pain is not controlled, your pain is worsening, your pain is unusual for you, your pain is concerning you, wound has increased drainage, wound has increased redness, wound has increased pain, you have any medication questions . . "Provider Documentation" section prepared by Karl Azul. . <Electronically signed by Karl Azul MD> Signed: 01/17/18 [id number] Signed: The status of this report is Signed * If report status is Draft, the document has not been finalized by the responsible provider.
[2018-01-17 14:03] VITALS: BP 160/93; PULSE 64; TEMP 36.5; O2SAT 96
== END 2018-01-17 15:28 | disposition home or self-care (01) | DRG 603 ==
LOC: C.EDB 09:27 → C.MS2W 13:10 → ENRESERV 13:37
PROVIDERS: ADMIT Internal Medicine; ATTEND Internal Medicine
DX: L03.115 Cellulitis of right lower limb (principal); F11.20 Opioid dependence, uncomplicated; I82.503 Chronic embolism and thrombosis of unspecified deep veins of lower extremity, bilateral; L03.116 Cellulitis of left lower limb; J44.9 Chronic obstructive pulmonary disease, unspecified; F32.9 Major depressive disorder, single episode, unspecified; B96.20 Unspecified Escherichia coli [E. coli] as the cause of diseases classified elsewhere; K21.9 Gastro-esophageal reflux disease without esophagitis; F17.200 Nicotine dependence, unspecified, uncomplicated; I87.2 Venous insufficiency (chronic) (peripheral); F10.10 Alcohol abuse, uncomplicated; Z91.018 Allergy to other foods; Z79.01 Long term (current) use of anticoagulants; Z79.52 Long term (current) use of systemic steroids; Z88.2 Allergy status to sulfonamides

== ENCOUNTER 2018-04-12 10:21 | Inpatient (IN) | payer OTHER ==
[~2018-04-12] VITALS: Ht 175.3 cm; Wt 108.7 kg
[~2018-04-12 10:21] MED LIST changes: +CIPR250T3 PO; +DAPTOMYCIN IV; -LACT1LOT3 EXT; -LACTCHW3 PO; -NF1094 IV; +RIVA1TAB4 PO; -SNTO30 EXT; -SPRIN/30 INH; +THIA100T27 PO; -THM100 PO; -XRL15 PO
[2018-04-12] MEDS ORDERED: SODIUM CHLORIDE 0.9% 1000ML 1,000 ML IV STA (10:48)
[2018-04-12] MEDS ORDERED: FLUT1INH INH (10:55)
[2018-04-12] MEDS ORDERED: ONDANSETRON INJ 2 MG/ML 2 ML VIAL IV STA (11:29)
[2018-04-12] MEDS ORDERED: MoRPHine SULFATE 4 MG/ML 1 ML CARP\\VIAL IV STA ×2 (11:29→14:20)
[2018-04-12 11:30] LABS: BASO % 0.4 %; BASO ABS # 0.02 K/uL (0-0.2); EOS % 0.8 %; EOS ABS # 0.04 K/uL (0-0.5); HEMATOCRIT 43.9 % (42-52); HEMOGLOBIN 15.2 g/dL (14.0-18.0); LYMPH % 17.2 %; LYMPH ABS # 0.89 K/uL (1.2-3.4); MEAN CELL VOLUME 89.2 fL (80-100); MEAN CORPUSCULAR HEMOGLOBIN 30.9 pg (25-34); MEAN CORPUSCULAR HGB CONC 34.6 g/dl (32-36); MEAN PLATELET VOLUME 10.2 fL (7.4-10.4); MONO % 7.2 %; MONO ABS # 0.37 K/uL (0.11-0.59); NEUT % 74.4 %; NEUT ABS # 3.85 K/uL (1.4-6.5); PLATELET COUNT 142 K/uL (130-400); RED CELL DISTRIBUTION WIDTH CV 15.6 % (11.5-14.5); WHITE BLOOD COUNT 5.17 K/uL (4.8-10.8)
[2018-04-12 11:49] LABS: CREATININE 0.86 mg/dl (0.60-1.40); POTASSIUM 3.6 mmol/L (3.5-5.1)
--- NOTE | 2018-04-12 11:53 | DIAGNOSTIC IMAGING REPORT ---
L VENOUS DOPPLER UPR EXT UNIL HISTORY: Pain. Edema. LUE red and painful COMPARISON STUDY: None. FINDINGS: Study is positive for thrombus within the left axilla, basilic, and brachial veins. Occlusive thrombus is identified within the basilic and brachial veins. Subclavian vein is patent but is small in terms of overall caliber. IMPRESSION: Extensive acute deep venous thrombosis. The above report was generated using voice recognition software. It may contain grammatical, syntax or spelling errors. Electronically signed by: Aleksandr Mistry M.D. 04/12/2018 11:52 AM Dictated Date/Time: 04/12/2018 11:51 AM
[2018-04-12] MEDS ORDERED: OPTIRAY 320 IV PRN (12:30)
--- NOTE | 2018-04-12 13:07 | DIAGNOSTIC IMAGING REPORT ---
(CHEST FOR PE) ANGIO WITH CLINICAL HISTORY: 42 years-old Male presenting with ^extensive dvt LUE w/ SOb. TECHNIQUE: Multidetector CT angiography of the chest was performed after administration of intravenous contrast. 3-D volumetric and/or maximum intensity projection (MIP) images were subsequently reconstructed for review. IV contrast: 92 mL of Optiray 320. A dose lowering technique was used consistent with the principles of ALARA (as low as reasonably achievable). COMPARISON: None. CT DOSE (mGy.cm): The estimated cumulative dose is 544.20 mGycm. FINDINGS: Secondary English Teacher topogram: Unremarkable. Pulmonary vasculature: The study is suboptimal for the assessment of the pulmonary vascular tree secondary to timing of the contrast bolus and respiratory motion artifact. Allowing for limited image quality, no central filling defect to suggest pulmonary embolus. Main pulmonary artery is not enlarged. No flattening of the interventricular septum. No intracardiac filling defect. No reflux of contrast into the hepatic veins. Remaining chest: On soft tissue windows, normal thyroid and thoracic inlet. Bilateral gynecomastia. No axillary, supraclavicular, hilar, or mediastinal lymphadenopathy. Normal aorta. Normal heart size. No pericardial or pleural effusion. Hepatic steatosis. On lung windows, diffuse added density of the lungs. Mosaic attenuation may suggest small airways disease. Solid 4 mm nodule in the periphery of the right upper lobe (series 4 image 194). Punctate solid peripheral right middle lobe nodule (series 4 image 107). Nodularity at the right lung base may relate to atelectasis. Central airways patent bronchial wall thickening noted. No pneumothorax. On bone windows, normal osseous structures. IMPRESSION: 1. Allowing for suboptimal image quality, no evidence of pulmonary embolus. 2. Findings suggest reactive airways disease or viral bronchiolitis. No focal infiltrate to suggest pneumonia. 3. Solid 4 mm right upper lobe nodule. Follow-up per Anthony Society 2017 recommendations below. Please refer to below summary of Fleischner Society 2017 recommendations for follow-up of incidental CT nodules (Lavonne Martinez et al. Guidelines for management of incidental pulmonary nodules detected on CT images: From the Fleischner Society 2017. Radiology 2017; 284: 228-243.) SOLID NODULES Single nodule; size < 6 mm * Low risk patients: No routine follow-up * High risk patients: Optional CT at 12 months Single nodule; size 6-8 mm * Low risk patients: CT at 6-12 months, then consider CT at 18-24 months * High risk patients: CT at 6-12 months, then at 18-24 months Single nodule; size > 8 mm * Either low or high risk patients: Considered CT at 3 months, PET/CT, or tissue sampling Multiple nodules; size < 6 mm * Low risk patients: No routine follow up * High risk patients: Optional CT at 12 months Multiple nodules; size 6-8 mm * Low risk patients: CT at 3-6 months, then consider CT at 18-24 months * High risk patients: CT at 3-6 months, then at 18-24 months Multiple nodules; size > 8 mm * Low risk patients: CT at 3-6 months, then consider at 18-24 months * High risk patients: CT at 3-6 months, then at 18-24 months SUBSOLID NODULES Single ground-glass nodule * Nodule size < 6 mm: No routine follow-up * Nodule size > or = 6 mm: CT at 6-12 months to confirm persistence, then CT every 2 years until 5 years Single part-solid nodule * Nodule size < 6 mm: No routine follow-up * Nodules size > or = 6 mm: CT at 3-6 months to confirm persistence. If unchanged and solid component remains < 6 mm, annual CT should be performed for 5 years Multiple nodules * Nodule size < 6 mm: CT at 3-6 months. If stable, consider CT at 2 and 4 years. * Nodules size > or = 6 mm: CT at 3-6 months. Subsequent management based on the most suspicious nodule(s) NOTE: 1) These guidelines apply to incidental nodules. These guidelines do NOT apply to patients younger than 35 years, immunocompromised patients, or patients with cancer. 2) Risk categories: * Low risk patients: Minimal or absent history of smoking and/or other known risk factors * High risk patients: History of smoking, exposure to other carcinogens, emphysema, fibrosis, upper lobe location, family history of lung cancer, etc. 3) If a nodule up to 8 mm is partly solid or is ground glass, further follow-up is required after 24 months to exclude possible slow growing adenocarcinoma. Electronically signed by: Antoni Rod M.D. 04/12/2018 1:06 PM Dictated Date/Time: 04/12/2018 1:00 PM
[2018-04-12] MEDS ORDERED: DAPTOMYCIN IV STA (13:19)
[2018-04-12] MEDS ORDERED: HEPARIN 25000 UNIT/500 ML D5W ONE (13:26)
[2018-04-12] MEDS ORDERED: HEPARIN SOD 5000 UNIT/0.5 ML CARP ONE (13:26)
[2018-04-12] MEDS ORDERED: HEPARIN 25,000 UNIT/500ML D5W 500 ML IV SCH (13:30)
[2018-04-12] MEDS: HEPARIN 25,000 UNIT/500ML D5W 500 ML IV SCH ×2 (13:34→23:53)
[2018-04-12 14:00] LABS: PTT PATIENT 24.7 SECONDS (21.0-31.0)
[2018-04-12] MEDS ORDERED: MoRPHine SULFATE 2 MG/ML CARP IV PRN (14:45)
[2018-04-12] MEDS ORDERED: ACETAMINOPHEN 325 MG TAB PO PRN (14:45)
--- NOTE | 2018-04-12 15:09 | History and Physical ---
History & Physical Date & Time of Service: Apr 12, 2018 at 14:06 Chief Complaint: Left arm pain and swelling x 1 day; B/L LE infection Primary Care Physician: Antonio Jo PA-C History of Present Illness Source: patient This is a 42 year old male with significant PMH of hypercoagulable state, hx of chronic nonocclusive b/l LE DVT, PVD with chronic b/l lower extremity wounds, venous stasis dermatitis/ulcerations, Asthma, Gerd, hx of MRSA, hx of ETOH abuse , hx of chronic narcotic use, chronic pain syndrome, tobacco abuse, depression who presents to [facility] for left arm pain 1 day and bilateral lower extremity cellulitis. Patient recently hospitalized [facility] from 02/28/18 through 03/06/18 secondary to chronic bilateral lower extremity wounds with cellulitis. Infectious disease was on board and was discharged with IV daptomycin 400 mg daily and Cipro 750 mg twice daily. He was discharged to [facility] with PICC in [facility] for IV antibiotics x 2 weeks. Discharged from SNF on 03/20/18, PICC then removed. Since discharge he has not followed up with wound care. Was dressing wounds himself. Currently not taking any antibiotic therapy. 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 Over the past 2 weeks has been having increased swelling, redness and pain in lower extremities in which he states, "I know this is when they are infected." Further he had acute onset of left upper extremity pain beginning last evening, constant, progressively getting worse, 8/10, associated with swelling, redness of the elbow. Takes Percocet chronically for pain in which did not help. He has history of chronic DVT and hypercoagulable state in which he has been off and on Xarelto for 2 years. He was transitioned from Coumadin to Xarelto secondary to DUI and unable to get lab draws. Admits to taking medication routinely, but missed last nights dose. He denies f/c/s, dizziness, lightheaded, chest pain, palpitations, hemoptysis, SOB, VARMA, n/v/d, abdominal pain . Overall decreased appetite past 1.5 days, has not ate anything. In ED cbc, bmp mostly unremarkable, except elevated blood glucose at 131. CT negative for PE, +for reactive airway disease and R lung nodule 4mm. LUE U/S positive for DVT in left axilla with extensive occlusive DVT in brachial and basilic veins. Patient initiated on heparin bolus with gtt and is being admitted for further management of extensive DVT and b/l lower extremity wounds with probable cellulitis. Past Medical/Surgical History Medical Problems: (1) Cellulitis Status: Chronic (2) Chronic deep vein thrombosis (DVT) Status: Chronic (3) Chronic ulcer of leg Permanent Comment: b/l Status: Chronic (4) Chronic venous stasis dermatitis of both lower extremities Status: Chronic (5) COPD (chronic obstructive pulmonary disease) Status: Chronic (6) Depression Status: Chronic (7) GERD (gastroesophageal reflux disease) Status: Chronic (8) H/O ETOH abuse Status: Chronic (9) H/O methicillin resistant Staphylococcus aureus Status: Chronic (10) Hypercoagulable state Permanent Comment: Prothrombin Factor II Mutation, 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, borderline hyperhomocystinemia Status: Chronic (11) Narcotic dependence Status: Chronic (12) Tobacco abuse Status: Chronic (13) Venous (peripheral) insufficiency Status: Chronic Surgical Problems: (1) History of drainage of abscess Status: Chronic (2) History of incision and drainage Permanent Comment: 2015 - I&D leg abscess - Dr Chaudhari [facility] Status: Resolved Family History FH: alcohol abuse FATHER FH: cirrhosis FATHER Hypercoagulability MOTHER (Prothrombin Factor II Mutation, 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, boderline hyperhomocystemia ) Social History Smoking Status: Current Every Day Smoker (down to 1/2ppd, has smoked for 20 years) Smokeless Tobacco Use: Unknown Alcohol Use: occasionally (1-2x per month with 6-8 beers, previously was daily ETOH use) Drug Use: other (chronic narcotic use secondary to chronic pain) Marital Status: single Housing status: lives alone 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 08/2017; rxn unknown. Home Medications Scheduled Docusate Sodium (Colace), 100 MG PO BID Fluticasone Furoate-Vilanterol (Breo Ellipta), 200 MCG INH QAM Folic Acid (Folic Acid), 1 MG PO DAILY Multivitamins/Minerals (Certavite/Antioxidants), 1 TAB PO QAM Nicotine (Nicoderm Cq 14MG Patch), 1 PATCH TD QAM Omeprazole (Prilosec), 20 MG PO BID Rivaroxaban (Xarelto), 1 TAB PO HS Trazodone HCl (Trazodone HCl), 1 TAB PO HS Zinc Sulfate (Zinc Sulfate), 220 MG PO QAM Scheduled PRN Albuterol Hfa (Ventolin Hfa), 2 PUFFS INH Q6H PRN for SOB/Wheezing Oxycodone/Acetaminophen 5MG/325MG (Percocet 5MG/325MG), 1 TABLET PO Q6H PRN for Pain Review of Systems As noted per HPI, 10 systems reviewed and negative unless noted above. Physical Exam Vital Signs Date Time Temp Pulse Resp B/P (MAP) Pulse Ox O2 Delivery O2 Flow Rate FiO2 04/12/18 11:58 36.5 89 20 156/91 100 Room Air 04/12/18 10:28 36.6 93 18 185/98 100 Room Air General Appearance: WD/WN, no apparent distress, + obese Head: normocephalic, atraumatic Eyes: normal inspection, sclerae normal ENT: normal ENT inspection, hearing grossly normal, + pertinent finding ( mucous membranes moist) Neck: supple, no adenopathy, no carotid bruits Respiratory/Chest: chest non-tender, lungs clear, normal breath sounds, no respiratory distress, no accessory muscle use, + wheezing (inspiratory/ expiratory with prolonged phase) Cardiovascular: regular rate, rhythm, no gallop, no JVD, no murmur Abdomen/GI: normal bowel sounds, non tender, soft, + distended (secondary to obesity) Back: normal inspection, no muscle spasm Extremities/Musculoskelatal: + swelling (LUE proximal edema, warmth medially, no redness, pain to palpation medical; b/l lower extremity woody edema with venous stasis dermatitis and multiple lower extremity venous ulcerations with b/ l feet erythema.) Neurologic/Psych: alert, normal mood/affect, oriented x 3 Skin: normal color, warm/dry Diagnostics Laboratory Results Results Past 24 Hours Test 04/12/18 11:20 04/12/18 13:43 Range/Units White Blood Count 5.17 4.8-10.8 K/uL Red Blood Count 4.92 4.7-6.1 M/uL Hemoglobin 15.2 14.0-18.0 g/dL Hematocrit 43.9 42-52 % Mean Corpuscular Volume 89.2 80-100 fL Mean Corpuscular Hemoglobin 30.9 25-34 pg Mean Corpuscular Hemoglobin Concent 34.6 32-36 g/dl Platelet Count 142 130-400 K/uL Mean Platelet Volume 10.2 7.4-10.4 fL Neutrophils (%) (Auto) 74.4 % Lymphocytes (%) (Auto) 17.2 % Monocytes (%) (Auto) 7.2 % Eosinophils (%) (Auto) 0.8 % Basophils (%) (Auto) 0.4 % Neutrophils # (Auto) 3.85 1.4-6.5 K/uL Lymphocytes # (Auto) 0.89 1.2-3.4 K/uL Monocytes # (Auto) 0.37 0.11-0.59 K/uL Eosinophils # (Auto) 0.04 0-0.5 K/uL Basophils # (Auto) 0.02 0-0.2 K/uL RDW Standard Deviation 50.0 36.4-46.3 fL RDW Coefficient of Variation 15.6 11.5-14.5 % Immature Granulocyte % (Auto) 0.0 % Immature Granulocyte # (Auto) 0.00 0.00-0.02 K/uL Sodium Level 136 136-145 mmol/L Potassium Level 3.6 3.5-5.1 mmol/L Chloride Level 105 98-107 mmol/L Carbon Dioxide Level 26 21-32 mmol/L Anion Gap 5.0 3-11 mmol/L Blood Urea Nitrogen 6 7-18 mg/dl Creatinine 0.86 0.60-1.40 mg/dl Est Creatinine Clear Calc Drug Dose 134.6 ml/min Estimated GFR () 123.1 Estimated GFR (Non- 106.2 BUN/Creatinine Ratio 6.8 10-20 Random Glucose 131 70-99 mg/dl Calcium Level 9.0 8.5-10.1 mg/dl Prothrombin Time 10.9 9.0-12.0 SECONDS Prothromb Time International Ratio 1.0 0.9-1.1 Activated Partial Thromboplast Time 24.7 21.0-31.0 SECONDS Partial Thromboplastin Ratio 1.[address] Chest: IMPRESSION: 1. Allowing for suboptimal image quality, no evidence of pulmonary embolus. 2. Findings suggest reactive airways disease or viral bronchiolitis. No focal infiltrate to suggest pneumonia. 3. Solid 4 mm right upper lobe nodule. Follow-up per [employer] 2017 recommendations below. Ultrasound LUE : Study is positive for thrombus within the left axilla, basilic, and brachial veins. Occlusive thrombus is identified within the basilic and brachial veins. Subclavian vein is patent but is small in terms of overall caliber. Impression Assessment and Plan This is a 42 year old male with significant PMH of hypercoagulable state, hx of chronic nonocclusive b/l LE DVT, PVD with chronic b/l lower extremity wounds, venous stasis dermatitis/ulcerations, Asthma, Gerd, hx of MRSA, hx of ETOH abuse , hx of chronic narcotic use, chronic pain syndrome, tobacco abuse, depression who presents to [facility] for left arm pain 1 day and bilateral lower extremity cellulitis. In ED cbc, bmp mostly unremarkable, except elevated blood glucose at 131. CT negative for PE, +for reactive airway disease and R lung nodule 4mm. LUE U/S positive for DVT in left axilla with extensive occlusive DVT in brachial and basilic veins. Patient initiated on heparin bolus with gtt and is being admitted for further management of extensive DVT and b/l lower extremity wounds with probable cellulitis. LUE Axillary DVT with occlusive DVT in brachial and basilic vein Hypercoagulable state secondary to Prothrombin Factor II Mutation -stop Xarelto -Stop Heparin gtt, start Lovenox 1mg/kg q12 hours -Call out to hematology to determine definitive treatment at discharge. Most likely will need nursing home Coumadin due to recurrent DVT on xarelto. PVD with Chronic B/L Lower extremity venous stasis ulcerations and associated cellulitis -continue daptomycin 400mg IV daily until evaluated by ID -wound cultures to be obtained -consult wound nursing care -will consult ID for further management Dr. Acevedo -check CK in a.m. along with CBC, BMP, Mag HTN -bp elevated on admission. May be secondary to pain. -not on any oral antihypertensives. Will follow. Asthma with mild exacerbation -continue Breo -Add Xopenex 0.63 TID routine and Q4hr prn. -Add Flutter Valve Gerd -continue PPI Hx of ETOH abuse -continue folic acid and MVI -refused thiamine secondary to causing constipation Tobacco Abuse -nicotine patch 14mg Chronic Pain Syndrome -continue Percocet -morphine IV 4mg q4hr for breakthrough Depression -continue trazodone at HS RUL and RML Lung Nodule -repeat CT Scan in 6-12 months DISPOSITION Discharge to home when able Possible discharge to SNF if require IV antibiotics Attending addendum: The patient was seen and examined in emergency room. He has factor V Leiden mutation and hyper homocystinemia on Xarelto for recurrent DVTs He was brought in with them left upper extremity swelling redness and tingling in the fingers Noted to have extensive left upper extremity DVT On examination: Complaints of pain in the left upper extremity and bilateral legs Hemodynamically stable Chest- clear to auscultate bilaterally Heart-S1-S2 regular, no murmur appreciated Abdomen-benign, nontender, no organomegaly Extremities-lower extremities has chronic skin changes secondary to peripheral vascular disease and recurrent infection in both the legs Left upper extremity-swollen, redness in the medial aspect around the elbow, swelling of the fingers and tingling have diminished FREIGHT CLERK-alert, awake and oriented 3 Admission labs and imaging studies reviewed Has extensive DVT in the left upper extremity while on Xarelto This is his second episode of acute on chronic DVT on Xarelto Discussed with Dr. Carias and advised to change it to Coumadin on discharge Vascular surgery consult for acute left upper extremity DVT Agree with assessment and plan as mentioned above Dr. Mckeon date Resuscitation Status Full Code VTE Prophylaxis Will order VTE Prophylaxis: Yes (Lovenox 1mg/kg)
[2018-04-12] MEDS ORDERED: ENOXAPARIN 1 MG/KG SQ SCH (16:00)
[2018-04-12 16:35] VITALS: BP 145/79; PULSE 77; TEMP 36.7; O2SAT 98; Ht 175.3 cm; Wt 108.7 kg
--- NOTE | 2018-04-12 17:38 | EMERGENCY ROOM VISIT NOTE ---
History Report prepared by Ramonitaibdesi: Monica Ballesteros Under the Supervision of: Dr. Christopher Steiner D.O. First contact with patient: 10:33 Chief Complaint: INFECTION Stated Complaint: BULLET IN ARM AND INFECTION IN LEG Nursing Triage Summary: I think I have an infection in my left arm. they removed a picc line about 2 weeks ago and last night my arm started hurting and my fingers are tingly History of Present Illness The patient is a 42 year old male who presents to the Emergency Room with complaints of a possible infection in his left arm. He states he had a PICC line placed 1 month ago in his left arm and had it removed 2 weeks ago. He was getting IV antibiotics for an infection in his bilateral legs. Last night, he developed pain in his left arm and numbness in his fingers. He rates his discomfort as an 8/10 in severity. The patient states he was released from rehab at [facility] [place] approximately a week and a half ago. He denies any recent abdominal pain. Patient does have some minimal shortness of breath. He denies any chest pain. Source of History: patient Onset: last night Position: arm (left) Symptom Intensity: 8/10 Associated Symptoms: + numbness (in fingers of left hand), No abdominal pain Review of Systems See HPI for pertinent positives & negatives. A total of 10 systems reviewed and were otherwise negative. Past Medical & Surgical Medical Problems: (1) Cellulitis (2) Chronic deep vein thrombosis (DVT) (3) Chronic ulcer of leg (4) Chronic venous stasis dermatitis of both lower extremities (5) COPD (chronic obstructive pulmonary disease) (6) Depression (7) GERD (gastroesophageal reflux disease) (8) H/O ETOH abuse (9) H/O methicillin resistant Staphylococcus aureus (10) Hypercoagulable state (11) Narcotic dependence (12) Tobacco abuse (13) Venous (peripheral) insufficiency Surgical Problems: (1) History of drainage of abscess (2) History of incision and drainage Family History Hypercoagulability MOTHER Social History Smoking Status: Current Every Day Smoker Drug Use: none Marital Status: single Housing Status: lives alone Occupation Status: unemployed Current/Historical Medications Scheduled Docusate Sodium (Colace), 100 MG PO BID Fluticasone Furoate-Vilanterol (Breo Ellipta), 200 MCG INH QAM Folic Acid (Folic Acid), 1 MG PO DAILY Multivitamins/Minerals (Certavite/Antioxidants), 1 TAB PO QAM Nicotine (Nicoderm Cq 14MG Patch), 1 PATCH TD QAM Omeprazole (Prilosec), 20 MG PO BID Rivaroxaban (Xarelto), 1 TAB PO HS Trazodone HCl (Trazodone HCl), 1 TAB PO HS Zinc Sulfate (Zinc Sulfate), 220 MG PO QAM Scheduled PRN Albuterol Hfa (Ventolin Hfa), 2 PUFFS INH Q6H PRN for SOB/Wheezing Oxycodone/Acetaminophen 5MG/325MG (Percocet 5MG/325MG), 1 TABLET PO Q6H PRN for Pain Allergies Coded Allergies: Sulfamethoxazole w/Trimethoprim (Verified Allergy, Intermediate, hives, ) Pea (Verified Allergy, Unknown, ., 04/12/18) Tuna (Verified Allergy, Unknown, ., 04/12/18) Pt reported an allergy to peas & tuna to RD (EV) last adm. 08/2017; rxn unknown. Physical Exam Vital Signs Date Time Temp Pulse Resp B/P (MAP) Pulse Ox O2 Delivery O2 Flow Rate FiO2 04/12/18 14:00 36.7 84 18 161/96 100 Room Air 04/12/18 11:58 36.5 89 20 156/91 100 Room Air 04/12/18 10:28 36.6 93 18 185/98 100 Room Air Physical Exam GENERAL: Sitting up in bed, alert, well appearing, well nourished, no distress, non-toxic EYE EXAM: normal conjunctiva. OROPHARYNX: no exudate, no erythema, lips, buccal mucosa, and tongue normal and mucous membranes are moist NECK: supple, no nuchal rigidity, no adenopathy, non-tender LUNGS: Clear to auscultation. Normal chest wall mechanics HEART: no murmurs, S1 normal and S2 normal ABDOMEN: abdomen soft, non-tender, normo-active bowel sounds, no masses, no rebound or guarding. BACK: Back is symmetrical on inspection and there is no deformity, no midline tenderness, no CVA tenderness. SKIN: no rashes and no bruising UPPER EXTREMITIES: Faint redness to left AC. LOWER EXTREMITIES: 4 cm by 2.5 cm ulcer to right mid victoria, 4 cm by 2 cm ulcer to left mid victoria, 2.5 cm by 2 cm ulcer above left ankle. NEURO EXAM: Normal sensorium, cranial nerves II-XII grossly intact, normal speech, no gross weakness of arms, no gross weakness of legs. Gross sensation intact. Medical Decision & Procedures ER Provider Diagnostic Interpretation: Radiology results as stated below per my review and the radiologist's interpretation: (CHEST FOR PE) ANGIO WITH CLINICAL HISTORY: 42 years-old Male presenting with ^extensive dvt LUE w/ SOb. TECHNIQUE: Multidetector CT angiography of the chest was performed after administration of intravenous contrast. 3-D volumetric and/or maximum intensity projection (MIP) images were subsequently reconstructed for review. IV contrast: 92 mL of Optiray 320. A dose lowering technique was used consistent with the principles of ALARA (as low as reasonably achievable). COMPARISON: None. CT DOSE (mGy.cm): The estimated cumulative dose is 544.20 mGycm. FINDINGS: Ramp Agent topogram: Unremarkable. Pulmonary vasculature: The study is suboptimal for the assessment of the pulmonary vascular tree secondary to timing of the contrast bolus and respiratory motion artifact. Allowing for limited image quality, no central filling defect to suggest pulmonary embolus. Main pulmonary artery is not enlarged. No flattening of the interventricular septum. No intracardiac filling defect. No reflux of contrast into the hepatic veins. Remaining chest: On soft tissue windows, normal thyroid and thoracic inlet. Bilateral gynecomastia. No axillary, supraclavicular, hilar, or mediastinal lymphadenopathy. Normal aorta. Normal heart size. No pericardial or pleural effusion. Hepatic steatosis. On lung windows, diffuse added density of the lungs. Mosaic attenuation may suggest small airways disease. Solid 4 mm nodule in the periphery of the right upper lobe (series 4 image 194). Punctate solid peripheral right middle lobe nodule (series 4 image 107). Nodularity at the right lung base may relate to atelectasis. Central airways patent bronchial wall thickening noted. No pneumothorax. On bone windows, normal osseous structures. IMPRESSION: 1. Allowing for suboptimal image quality, no evidence of pulmonary embolus. 2. Findings suggest reactive airways disease or viral bronchiolitis. No focal infiltrate to suggest pneumonia. 3. Solid 4 mm right upper lobe nodule. Follow-up per Anthony Society 2017 recommendations below. Please refer to below summary of Fleischner Society 2017 recommendations for follow-up of incidental CT nodules (Lavonne Martinez et al. Guidelines for management of incidental pulmonary nodules detected on CT images: From the Fleischner Society 2017. Radiology 2017; 284: 228-243.) SOLID NODULES Single nodule; size < 6 mm * Low risk patients: No routine follow-up * High risk patients: Optional CT at 12 months Single nodule; size 6-8 mm * Low risk patients: CT at 6-12 months, then consider CT at 18-24 months * High risk patients: CT at 6-12 months, then at 18-24 months Single nodule; size > 8 mm * Either low or high risk patients: Considered CT at 3 months, PET/CT, or tissue sampling Multiple nodules; size < 6 mm * Low risk patients: No routine follow up * High risk patients: Optional CT at 12 months Multiple nodules; size 6-8 mm * Low risk patients: CT at 3-6 months, then consider CT at 18-24 months * High risk patients: CT at 3-6 months, then at 18-24 months Multiple nodules; size > 8 mm * Low risk patients: CT at 3-6 months, then consider at 18-24 months * High risk patients: CT at 3-6 months, then at 18-24 months SUBSOLID NODULES Single ground-glass nodule * Nodule size < 6 mm: No routine follow-up * Nodule size > or = 6 mm: CT at 6-12 months to confirm persistence, then CT every 2 years until 5 years Single part-solid nodule * Nodule size < 6 mm: No routine follow-up * Nodules size > or = 6 mm: CT at 3-6 months to confirm persistence. If unchanged and solid component remains < 6 mm, annual CT should be performed for 5 years Multiple nodules * Nodule size < 6 mm: CT at 3-6 months. If stable, consider CT at 2 and 4 years. * Nodules size > or = 6 mm: CT at 3-6 months. Subsequent management based on the most suspicious nodule(s) NOTE: 1) These guidelines apply to incidental nodules. These guidelines do NOT apply to patients younger than 35 years, immunocompromised patients, or patients with cancer. 2) Risk categories: * Low risk patients: Minimal or absent history of smoking and/or other known risk factors * High risk patients: History of smoking, exposure to other carcinogens, emphysema, fibrosis, upper lobe location, family history of lung cancer, etc. 3) If a nodule up to 8 mm is partly solid or is ground glass, further follow-up is required after 24 months to exclude possible slow growing adenocarcinoma. Electronically signed by: Antoni Rod M.D. 04/12/2018 1:06 PM L VENOUS DOPPLER UPR EXT UNIL HISTORY: Pain. Edema. LUE red and painful COMPARISON STUDY: None. FINDINGS: Study is positive for thrombus within the left axilla, basilic, and brachial veins. Occlusive thrombus is identified within the basilic and brachial veins. Subclavian vein is patent but is small in terms of overall caliber. IMPRESSION: Extensive acute deep venous thrombosis. The above report was generated using voice recognition software. It may contain grammatical, syntax or spelling errors. Electronically signed by: Aleksandr Mistry M.D. 04/12/2018 11:52 AM Laboratory Results 04/12/18 11:20 Red Blood Count 4.92, Mean Corpuscular Volume 89.2, Mean Corpuscular Hemoglobin 30.9, Mean Corpuscular Hemoglobin Concent 34.6, Mean Platelet Volume 10.2, Neutrophils (%) (Auto) 74.4, Lymphocytes (%) (Auto) 17.2, Monocytes (%) (Auto) 7.2, Eosinophils (%) (Auto) 0.8, Basophils (%) (Auto) 0.4, Neutrophils # (Auto) 3.85, Lymphocytes # (Auto) 0.89, Monocytes # (Auto) 0.37, Eosinophils # (Auto) 0.04, Basophils # (Auto) 0.02 04/12/18 11:20 Test 04/12/18 11:20 04/12/18 13:43 White Blood Count 5.17 K/uL (4.8-10.8) Red Blood Count 4.92 M/uL (4.7-6.1) Hemoglobin 15.2 g/dL (14.0-18.0) Hematocrit 43.9 % (42-52) Mean Corpuscular Volume 89.2 fL (80-100) Mean Corpuscular Hemoglobin 30.9 pg (25-34) Mean Corpuscular Hemoglobin Concent 34.6 g/dl (32-36) Platelet Count 142 K/uL (130-400) Mean Platelet Volume 10.2 fL (7.4-10.4) Neutrophils (%) (Auto) 74.4 % Lymphocytes (%) (Auto) 17.2 % Monocytes (%) (Auto) 7.2 % Eosinophils (%) (Auto) 0.8 % Basophils (%) (Auto) 0.4 % Neutrophils # (Auto) 3.85 K/uL (1.4-6.5) Lymphocytes # (Auto) 0.89 K/uL (1.2-3.4) Monocytes # (Auto) 0.37 K/uL (0.11-0.59) Eosinophils # (Auto) 0.04 K/uL (0-0.5) Basophils # (Auto) 0.02 K/uL (0-0.2) RDW Standard Deviation 50.0 fL (36.4-46.3) RDW Coefficient of Variation 15.6 % (11.5-14.5) Immature Granulocyte % (Auto) 0.0 % Immature Granulocyte # (Auto) 0.00 K/uL (0.00-0.02) Anion Gap 5.0 mmol/L (3-11) Est Creatinine Clear Calc Drug Dose 134.6 ml/min Estimated GFR () 123.1 Estimated GFR (Non- 106.2 BUN/Creatinine Ratio 6.8 (10-20) Calcium Level 9.0 mg/dl (8.5-10.1) Prothrombin Time 10.9 SECONDS (9.0-12.0) Prothromb Time International Ratio 1.0 (0.9-1.1) Activated Partial Thromboplast Time 24.7 SECONDS (21.0-31.0) Partial Thromboplastin Ratio 1.0 Laboratory results per my review. Medications Administered Medications (Trade) Dose Ordered Sig/Ilia Route Start Time Stop Time Status Last Admin Dose Admin Sodium Chloride 1,000 ml @ 999 mls/hr Q1H1M STAT IV 04/12/18 10:48 04/12/18 11:48 DC 04/12/18 10:48 999 MLS/HR Morphine Sulfate (MoRPHine SULFATE INJ) 4 mg NOW STAT IV 04/12/18 11:29 04/12/18 11:31 DC 04/12/18 11:57 4 MG Ondansetron HCl (Zofran Inj) 4 mg NOW STAT IV 04/12/18 11:29 04/12/18 11:31 DC 04/12/18 11:56 4 MG Daptomycin 525 mg/ Syringe 10.5 ml @ 5.25 mls/ min NOW STAT IV 04/12/18 13:19 04/12/18 13:20 DC 04/12/18 13:52 5.25 MLS/MIN Heparin Sodium/ Dextrose 500 ml @ 31 mls/hr Q16H8M IV 04/12/18 13:30 04/12/18 15:01 DC 04/12/18 13:32 31 MLS/HR Heparin Sodium (Porcine) (Heparin Sq 5000 Unit/0.5ml) 5,000 unit STK-MED ONCE .ROUTE 04/12/18 13:26 04/12/18 13:27 DC 04/12/18 13:34 5,000 UNIT Morphine Sulfate (MoRPHine SULFATE INJ) 4 mg NOW STAT IV 04/12/18 14:20 04/12/18 14:21 DC 04/12/18 14:32 4 MG ED Course ED COURSE: Vital signs were reviewed and showed the patient is hypertensive. The patients medical record was reviewed The above diagnostic studies were performed and reviewed. ED treatments and interventions as stated above. 1036: The patient was evaluated in room A12. A complete history and physical examination was performed. 1048: NSS 1000 ml @ 999 mls/hr IV. 1129: Zofran 4 mg IV, Morphine Sulfate 4 mg IV. 1245: I discussed the risks associated with bleeding when taking Heparin and the patient is agreeable with the plan. 1319: Daptomycin 525 mg/Syringe 10.5 ml @ 5.25 mls/min IV. 1322: I discussed the patients case with Yanira Martinez PA-C, [facility] Hospitalist. The patient will be further evaluated. 1326: Heparin Sodium 5000 unit IV. 1330: Heparin Sodium/Dextrose 500 ml @ 31 mls/hr IV. 1330: Upon reevaluation, the patient is resting comfortably. I discussed my findings with the patient and he understands and agrees with the treatment plan. Based on the patients age, coexisting illnesses, exam and lab findings the decision to treat as an inpatient was made. The patient remained stable while under my care. The patient will be evaluated for further management. Medical Decision Differential diagnosis includes etiologies such as cellulitis, abscess, MRSA infection, DVT, necrotizing fasciitis, dermatitis, drug eruption, as well as others were entertained. Patient is a 42-year-old male presents to ER for severe left arm pain and worsening redness and ulcers on his bilateral legs. He was previously on IV antibiotics with a PICC line in his left upper extremity. CBC along with BMP was unremarkable. INR was normal. Duplex left upper extremity shows extensive clot. Patient was placed on heparin drip and bolus. He was monitored closely. No bleeding risk factors. He was already on a 10 a inhibitor which appears to have not been working. He notes he only missed today's dose. CT of the chest shows no PEs. He does have a 4 mm pulmonary nodule. Patient was updated in regards to his findings. He was given multiple doses of IV morphine. He was given IV dose of daptomycin to the infection and admitted to internal medicine on a heparin drip. Medication Reconcilliation Current Medication List: was personally reviewed by me Blood Pressure Screening Patient's blood pressure: Elevated blood pressure Blood pressure disposition: Referred to PCP Consults Time Called: 1320 Consulting Physician: Yanira Martinez PA-C, [facility]ist Returned Call: 1322 I discussed the patients case with Yanira Martinez PA-C, [facility]. The patient will be further evaluated. Impression Primary Impression: DVT of upper extremity (deep vein thrombosis) Additional Impressions: Cellulitis Wound, open, leg Critical Care I have personally spent 35 minutes of critical care time in the direct management of this patient. This includes bedside care, interpretation of diagnostic studies, and testing, discussion with consultants, patient, and family members, and other required patient management activities. This 35 minutes is in excess of all separately billable procedures. Scribe Attestation The scribe's documentation has been prepared under my direction and personally reviewed by me in its entirety. I confirm that the note above accurately reflects all work, treatment, procedures, and medical decision making performed by me. Departure Information Dispostion Being Evaluated By Hospitalist Referrals Antonio Jo PA-C (PCP) Patient Instructions [facility] Problem Qualifiers Primary Impression: DVT of upper extremity (deep vein thrombosis) Affected thrombotic vein of extremity: unspecified vein of extremity Chronicity: acute Laterality: left Qualified Codes: I82.622 - Acute embolism and thrombosis of deep veins of left upper extremity Additional Impressions: Cellulitis Site of cellulitis: unspecified site Qualified Codes: L03.90 - Cellulitis, unspecified Wound, open, leg Encounter type: initial encounter Laterality: unspecified laterality Qualified Codes: S81.809A - Unspecified open wound, unspecified lower leg, initial encounter
[2018-04-12] MEDS: OXYCODONE/ACETAMINOPHEN 5-325 TAB PO PRN (17:47)
[2018-04-12] MEDS: LEVALBUTEROL 0.63MG/3 ML NEB INH SCH (19:23)
[2018-04-12 19:24] VITALS: PULSE 87; O2SAT 98
[2018-04-12] MEDS: DOCUSATE SODIUM 100 MG CAP PO SCH (21:06)
[2018-04-12] MEDS: PANTOprazole SOD 40 MG TAB PO SCH (21:06)
[2018-04-12] MEDS: TRAZODONE HCL 50 MG TAB PO SCH (21:07)
[2018-04-12] MEDS: MoRPHine SULFATE 2 MG/ML CARP IV PRN (21:17)
[2018-04-12 21:45] LABS: PTT PATIENT 32.9 SECONDS (21.0-31.0)
[2018-04-12 23:09] VITALS: BP 101/62; PULSE 74; TEMP 36.7; O2SAT 94
[2018-04-12] MEDS ORDERED: HEPARIN IV BOLUS 7,000 UNIT in SYRINGE 0 ML IV ONE (23:30)
[2018-04-13] VITALS (7 sets, daily range): BP systolic 121–126; BP diastolic 78–79; PULSE 69–88; TEMP 36.5–36.6; O2SAT 95–97
[2018-04-13] MEDS: MoRPHine SULFATE 2 MG/ML CARP IV PRN ×3 (04:50→17:47)
[2018-04-13] MEDS: HEPARIN 25,000 UNIT/500ML D5W 500 ML IV SCH ×3 (04:57→17:46)
[2018-04-13 06:29] LABS: BASO % 1.2 %; BASO ABS # 0.04 K/uL (0-0.2); EOS % 2.5 %; EOS ABS # 0.08 K/uL (0-0.5); HEMATOCRIT 41.4 % (42-52); IG# 0.01 K/uL (0.00-0.02); LYMPH % 31.1 %; LYMPH ABS # 1.01 K/uL (1.2-3.4); MEAN CELL VOLUME 90.6 fL (80-100); MEAN CORPUSCULAR HEMOGLOBIN 30.6 pg (25-34); MEAN CORPUSCULAR HGB CONC 33.8 g/dl (32-36); MEAN PLATELET VOLUME 9.8 fL (7.4-10.4); MONO % 8.6 %; MONO ABS # 0.28 K/uL (0.11-0.59); NEUT % 56.3 %; NEUT ABS # 1.83 K/uL (1.4-6.5); PLATELET COUNT 118 K/uL (130-400); RED CELL DISTRIBUTION WIDTH CV 16.1 % (11.5-14.5); RED CELL DISTRIBUTION WIDTH SD 52.4 fL (36.4-46.3); WHITE BLOOD COUNT 3.25 K/uL (4.8-10.8)
[2018-04-13 07:07] LABS: CALCIUM 8.6 mg/dl (8.5-10.1); CREATININE 0.75 mg/dl (0.60-1.40); POTASSIUM 3.9 mmol/L (3.5-5.1)
[2018-04-13 07:13] LABS: PTT PATIENT 69.9 SECONDS (21.0-31.0)
[2018-04-13] MEDS: LEVALBUTEROL 0.63MG/3 ML NEB INH SCH ×3 (07:19→19:03)
[2018-04-13] MEDS ORDERED: DAPTOmycin IV 400 MG in SODIUM CHLORIDE 0.9% 50ML 50 ML IV SCH (09:00)
[2018-04-13] MEDS ORDERED: FLUTICASONE FUROATE VILANTEROL INH SCH (09:00)
[2018-04-13] MEDS: OXYCODONE/ACETAMINOPHEN 5-325 TAB PO PRN ×3 (09:02→21:57)
[2018-04-13] MEDS: DOCUSATE SODIUM 100 MG CAP PO SCH ×2 (09:03→21:16)
[2018-04-13] MEDS: PANTOprazole SOD 40 MG TAB PO SCH ×2 (09:03→21:00)
[2018-04-13] MEDS: CEROVITE ADV FORMULA TAB PO SCH (09:04)
[2018-04-13] MEDS: NICOTINE 14 MG/24 HR TDSY TD SCH (09:05)
[2018-04-13] MEDS: ZINC SULFATE 220 MG CAP PO SCH (09:05)
--- NOTE | 2018-04-13 09:39 | Surgery Consultation ---
Consultation Date of Service Apr 13, 2018. (Gabrielle Cm, GREGORIO) Chief Complaint LUE DVT (Gabrielle Cm, GREGORIO) History of Present Illness The patient is a 42 year old male with hx of prothrombin mutation and MTHFR gene mutation, BLE DVT and post thrombotic syndrome, venous ulcerations with chronic infections, admitted with LUE DVT yesterday and seen in consultation today for LUE DVT. Pt states he had a LUE PICC line that was removed on 03/20. Developed pain and edema within past few days, and came to [facility] for eval. Denies other injury, SCOTT, fever, chills, chest pain, SOB, abd pain, N/V, rest pain, claudication, other complaints. US demonstrates LUE DVT in axillary, brachial veins, and superficial thrombophlebitis of basilic v. (Gabrielle Cm, GREGORIO) Vitals Vital Signs Past 12 Hours Date Time Temp Pulse Resp B/P (MAP) Pulse Ox O2 Delivery O2 Flow Rate FiO2 04/13/18 07:19 88 18 97 Room Air 04/13/18 07:03 36.6 69 16 126/79 (95) 96 Room Air 04/13/18 00:30 Room Air 04/12/18 23:09 36.7 74 18 101/62 (75) 94 Room Air (Gabrielle Cm, CHERRIC) Allergies Coded Allergies: Sulfamethoxazole w/Trimethoprim (Verified Allergy, Intermediate, hives, ) Pea (Verified Allergy, Unknown, ., 04/12/18) Tuna (Verified Allergy, Unknown, ., 04/12/18) Pt reported an allergy to peas & tuna to RD (EV) last adm. 08/2017; rxn unknown. Home Medications Scheduled Docusate Sodium (Colace), 100 MG PO BID Fluticasone Furoate-Vilanterol (Breo Ellipta), 200 MCG INH QAM Folic Acid (Folic Acid), 1 MG PO DAILY Multivitamins/Minerals (Certavite/Antioxidants), 1 TAB PO QAM Nicotine (Nicoderm Cq 14MG Patch), 1 PATCH TD QAM Omeprazole (Prilosec), 20 MG PO BID Rivaroxaban (Xarelto), 1 TAB PO HS Trazodone HCl (Trazodone HCl), 1 TAB PO HS Zinc Sulfate (Zinc Sulfate), 220 MG PO QAM Scheduled PRN Albuterol Hfa (Ventolin Hfa), 2 PUFFS INH Q6H PRN for SOB/Wheezing Oxycodone/Acetaminophen 5MG/325MG (Percocet 5MG/325MG), 1 TABLET PO Q6H PRN for Pain Problem List Medical Problems: (1) Cellulitis (2) Chronic deep vein thrombosis (DVT) (3) Chronic ulcer of leg (4) Chronic venous stasis dermatitis of both lower extremities (5) COPD (chronic obstructive pulmonary disease) (6) Depression (7) GERD (gastroesophageal reflux disease) (8) H/O ETOH abuse (9) H/O methicillin resistant Staphylococcus aureus (10) Hypercoagulable state (11) Narcotic dependence (12) Tobacco abuse (13) Venous (peripheral) insufficiency Surgical Problems: (1) History of drainage of abscess (2) History of incision and drainage (Gabrielle Cm, CHERRIC) Surgical / Medical History Hx Cardiac Surgery: No Hx Abdominal Surgery: No Hx Cancer Surgery: No Hx Thoracic Surgery: No Hx Orthopedic: No Hx Urinary Tract Surgery: No HX Other Surgery: Yes (I&D) Past Medical/Surgical History: Other (hypercoagulable) (Gabrielle Cm, CHERRIC) Family History FH: alcohol abuse FATHER FH: cirrhosis FATHER Hypercoagulability MOTHER (Prothrombin Factor II Mutation, 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, boderline hyperhomocystemia ) (Gabrielle Cm, CHERRIC) FH: alcohol abuse FATHER FH: cirrhosis FATHER Hypercoagulability MOTHER (Prothrombin Factor II Mutation, 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, boderline hyperhomocystemia ) (Rohith Kellogg M.D.) Social History Smoking Status: Current Every Day Smoker Hx Tobacco Use In Past Year?: Yes Hx Alcohol Use - Type & Amnt: Yes (Occasional) Hx Substance Use -Type & Amnt: No (Gabrielle Cm, PEMA-C) Review of Systems Constitutional: No chills, No fever, No malaise Skin: + change in color (erythema LUE) Eyes: No visual changes ENMT: No sore throat Respiratory: No cough, No VARMA, No short of breath Cardiovascular: + edema, No chest pain, No palpitations, No syncope, No intermittent claudication Gastrointestinal: No abdominal pain, No nausea, No vomiting Neurologic: No dizziness, No lethargy, No numbness, No tingling (Gabrielle Cm, CHERRIC) Physical Exam Constitutional: General Apperance: well-nourished, well-developed, obese Level of Distress: NAD, chronically ill Psychiatric: Mental Status: active & alert, normal mood, normal affect Orientation: oriented except where noted, to time, to place, to person Memory: recent memory normal, remote memory normal Head: normocephalic, atraumatic Eyes: EOM: EOMI ENMT: normal ENT inspection, hearing grossly normal Neck: supple, trachea midline Lungs: Auscultation: breath sounds normal, no rhonchi Cardiovascular: Apical Impulse: not displaced Heart Auscultation: RRR, no rubs, no gallops Peripheral Pulses: Pulses: full and equal, in all extremities except if noted Bruits: none appreciated Carotid Pulse: normal on the left, normal on the right Brachial Pulses: normal on the left, normal on the right Radial Pulse: normal on the left, normal on the right Femoral Pulse: normal on the left, normal on the right Posterior Tibialis Pulse: decreased on the left, decreased on the right Dorsalis Pedis Pulse: decreased on the left, decreased on the right Abdomen: Bowel Sounds: normal Inspection & Palpation: soft, non-distended, no tenderness, guarding & rebound Musculoskeletal: normal strength (5/5 throughout), normal tone Extremities: Upper Right: no cyanosis, no edema, no varicosities Upper Left: no cyanosis, no varicosities, edema, palpable cord (mild erythema, tenderness) Lower Right: no cyanosis, no varicosities, edema, ulcers Lower Left: no cyanosis, no varicosities, edema, ulcers Neurologic: Cranial Nerves: grossly intact Sensation: grossly intact (Gabrielle Cm, CHERRIC) Assessment and Plan ASSESSMENT and PLAN: LUE DVT Hypercoagulable Pt with LUE DVT and edema/pain. Pt discussed with Dr Kellogg who also reviewed pt's US, does not recommend any vascular surgical intervention at this time. Recommend tx with anticoagulation. Also recommended BLE compression stockings. Please call if needed. (Gabrielle Cm, PA-C) Patient's chart reviewed. Agree with exam and treatment plan of the Vascular PA. (Rohith Kellogg M.D.)
--- NOTE | 2018-04-13 10:59 | Progress Note ---
Progress Note Date of Service Apr 13, 2018. Progress Note ID Consult Dictated #[id number] A/P: 1. Lower extremity wounds -Continue dapto for now, follow culture -Needs out patient wound care, has been non compliant -Attempt to avoid picc with clot -thank you
--- NOTE | 2018-04-13 12:38 | INFECT. DISEASE CONSULTATION ---
DATE OF CONSULTATION: 04/13/2018 HISTORY OF PRESENT ILLNESS: The patient is a 42-year-old gentleman who was admitted to the hospital with left arm pain. He was found to have clots. He does have hypercoagulable disorder. He has been on multiple courses of IV antibiotics in the past for chronic lower extremity ulcerations. It appears his last course of antibiotics completed on March 20. At that time, he was on Cipro and daptomycin for wound cultures that grew MRSA and pseudomonas. He states he has been off of antibiotics for weeks and his leg ulcerations are improving. He has minimal pain in the left leg, but no pain in the right leg. He denies any fevers or chills. He was placed on daptomycin empirically. His white blood cell count is normal. He has been afebrile. A wound culture was done and is showing rare gram-positive cocci on Gram stain, but wound culture is pending. He is tolerating antibiotics. He denies abdominal pain, nausea, vomiting or diarrhea. His only complaint on my exam is of continued pain in the left upper extremity. REVIEW OF SYSTEMS: His remaining review of systems is reviewed and is unremarkable except for as noted. PAST MEDICAL HISTORY: Significant for chronic lower extremity ulcerations and cellulitis, DVT, venous stasis ulcers, COPD, depression, GERD, history of alcohol abuse, hypercoagulable state, narcotic dependence, venous insufficiency. PAST SURGICAL HISTORY: Significant for multiple I and Ds of leg abscesses. FAMILY HISTORY: Noncontributory. SOCIAL HISTORY: Significant for daily tobacco use. He also has alcohol use. He denies any drug use other than his chronic narcotics for his lower extremity ulcerations. ALLERGIES: HE HAS ALLERGIES TO SULFA. CURRENT MEDICATIONS: Daptomycin, folic acid, multivitamins, nicotine patch, zinc, Colace, Protonix, trazodone, Xopenex, subQ heparin, morphine, Tylenol, Percocet. PHYSICAL EXAMINATION: VITAL SIGNS: He is afebrile, pulse 88, respiratory rate 18, blood pressure 126/79, oxygen saturation is 97% on room air. GENERAL: He is awake, alert and oriented x3. He is in no acute distress. HEENT: Mucous membranes are moist. Extraocular muscles are intact. HEART: Regular. LUNGS: Clear bilaterally. ABDOMEN: Soft, nontender, nondistended. There is lower extremity swelling, left greater than right. However, overall ulcerations are significantly improved. There is no drainage or warmth noted. LABORATORY STUDIES: CBC today, white blood cell count 3.2, hemoglobin 14, platelets 118. Chemistry panel: Sodium 139, potassium 3.9, chloride 107, bicarbonate 24, BUN 5, creatinine 0.7, glucose 120. Gram stain on wound culture is as above. CTA was negative. ASSESSMENT AND PLAN: Lower extremity ulcerations which are chronic in nature. He can continue IV antibiotics for now pending additional microdata; however, with hypercoagulable state and previous PICC line in and out with a clot, would be apprehensive to continue on long-term IV antibiotics unless clinical worsening of his ulcerations. We will follow along with you. Thank you for this consultation.
[2018-04-13] MEDS: DAPTOmycin IV 400 MG in SYRINGE 0 ML IV SCH (14:40)
[2018-04-13] MEDS: BOOST VANILLA OR BOOST GLUCOSE CONTROL CHOCOLATE PO SCH (17:00)
--- NOTE | 2018-04-13 19:17 | Progress Note ---
Medicine Progress Note Date & Time of Visit: Apr 13, 2018 at 11:30 . Subjective CC: Follow-up visit for DVT LUE, lower extremity ulcers, and other problems. HPI: No fever. Persistent pain LUE. Bilateral leg pain. ROS: General- no fever, no chills Resp- no cough; no shortness of breath Cardiac- no chest pain, no edema GI- no nausea, no vomiting, no diarrhea, no constipation - no dysuria, no difficulty voiding . Objective Last 8 Hrs Date Time Temp Pulse Resp B/P (MAP) Pulse Ox O2 Delivery O2 Flow Rate FiO2 04/13/18 19:05 72 18 95 Room Air 04/13/18 16:00 Room Air 04/13/18 14:58 36.5 74 20 121/78 (92) 97 Room Air 04/13/18 14:20 81 18 97 Room Air Physical Exam: General- no distress Lungs- clear to auscultation; no respiratory distress Cardiovascular- RRR; no gallop; no JVD Abdomen- + bowel sounds, soft, nontender Extremities- LUE swelling; venous stasis changes bilateral lower extremities; left pretibial ulcer Neuro- alert, oriented Skin- warm & dry . Laboratory Results: Last 24 Hours Test 04/12/18 21:23 04/13/18 06:02 04/13/18 06:03 Activated Partial Thromboplast Time 32.9 SECONDS 69.9 SECONDS Partial Thromboplastin Ratio 1.3 2.7 White Blood Count 3.25 K/uL Red Blood Count 4.57 M/uL Hemoglobin 14.0 g/dL Hematocrit 41.4 % Mean Corpuscular Volume 90.6 fL Mean Corpuscular Hemoglobin 30.6 pg Mean Corpuscular Hemoglobin Concent 33.8 g/dl Platelet Count 118 K/uL Mean Platelet Volume 9.8 fL Neutrophils (%) (Auto) 56.3 % Lymphocytes (%) (Auto) 31.1 % Monocytes (%) (Auto) 8.6 % Eosinophils (%) (Auto) 2.5 % Basophils (%) (Auto) 1.2 % Neutrophils # (Auto) 1.83 K/uL Lymphocytes # (Auto) 1.01 K/uL Monocytes # (Auto) 0.28 K/uL Eosinophils # (Auto) 0.08 K/uL Basophils # (Auto) 0.04 K/uL RDW Standard Deviation 52.4 fL RDW Coefficient of Variation 16.1 % Immature Granulocyte % (Auto) 0.3 % Immature Granulocyte # (Auto) 0.01 K/uL Sodium Level 139 mmol/L Potassium Level 3.9 mmol/L Chloride Level 107 mmol/L Carbon Dioxide Level 24 mmol/L Anion Gap 8.0 mmol/L Blood Urea Nitrogen 5 mg/dl Creatinine 0.75 mg/dl Est Creatinine Clear Calc Drug Dose 154.3 ml/min Estimated GFR () 130.2 Estimated GFR (Non- 112.4 BUN/Creatinine Ratio 6.3 Random Glucose 120 mg/dl Calcium Level 8.6 mg/dl Magnesium Level 2.2 mg/dl Total Creatine Kinase 23 U/L Assessment & Plan DVT LEFT UPPER EXTREMITY (present on admission) Recent PICC line. History of prior DVT's with documented hypercoagulable condition. Patient states that he has been compliant with rivaroxaban. Continue IV heparin. Consider transition to warfarin. CHRONIC ULCERS LOWER EXTREMITIES ID consulted. Wound cultures pending. COPD Continue bronchodilators. TOBACCO USE Tobacco cessation counseling. HISTORY MRSA Contact precautions DISPOSITION To be determined. . Current Inpatient Medications: Current Inpatient Medications Medications (Trade) Dose Ordered Sig/Ilia Route Start Time Stop Time Status Last Admin Dose Admin Ioversol (Optiray 320) 100 ml UD PRN IV 04/12/18 12:30 04/16/18 12:29 Acetaminophen (Tylenol Tab) 650 mg Q4H PRN PO 04/12/18 14:45 05/12/18 14:44 Docusate Sodium (coLACE CAP) 100 mg BID PO 04/12/18 21:00 05/12/18 20:59 04/13/18 09:03 100 MG Folic Acid (Folvite Tab) 1 mg DAILY PO 04/13/18 09:00 05/13/18 08:59 04/13/18 09:04 1 MG Multivitamins/ Minerals (Multivitamin W/ Minerals Tab) 1 tab QAM PO 04/13/18 09:00 05/13/18 08:59 04/13/18 09:04 1 TAB Nicotine (Nicoderm Cq 14MG Patch) 1 patch QAM TD 04/13/18 09:00 05/13/18 08:59 04/13/18 09:05 1 PATCH Oxycodone/ Acetaminophen (Percocet 5-325mg Tab) 1 tab Q6H PRN PO 04/12/18 14:45 04/26/18 14:44 04/13/18 15:33 1 TAB Zinc Sulfate (Zinc Sulfate Cap) 220 mg QAM PO 04/13/18 09:00 05/13/18 08:59 04/13/18 09:05 220 MG Pantoprazole Sodium (Protonix Tab) 40 mg BID PO 04/12/18 21:00 05/12/18 20:59 04/13/18 09:03 40 MG Trazodone HCl (Desyrel Tab) 150 mg HS PO 04/12/18 21:00 05/12/18 20:59 04/12/18 21:07 150 MG Miscellaneous (Remove Nicoderm Patch) 1 ea HS N/A 04/12/18 21:00 05/12/18 20:59 Levalbuterol (Xopenex 0.63 Mg/ 3 Ml Neb) 0.63 mg TIDR INH 04/12/18 21:00 05/12/18 20:59 04/13/18 19:03 0.63 MG Morphine Sulfate (MoRPHine SULFATE INJ) 4 mg Q4H PRN IV 04/12/18 15:15 04/26/18 14:44 04/13/18 17:47 4 MG Miscellaneous Information (Order Awaiting Action) 1 ea QS N/A 04/13/18 00:00 05/13/18 00:00 Daptomycin 400 mg/ Syringe 8 ml @ 4 mls/min DAILY@1400 IV 04/13/18 14:00 04/22/18 13:59 04/13/18 14:40 4 MLS/MIN Heparin Sodium/ Dextrose 500 ml @ 38 mls/hr [id number] IV 04/12/18 18:30 05/12/18 18:29 04/13/18 17:46 38 MLS/HR Enteral Nutritional Formula (Boost) 1 can TIDM PO 04/13/18 17:00 05/13/18 16:59
[2018-04-13] MEDS ORDERED: WARFARIN SOD 10 MG TAB PO ONE (19:30)
[2018-04-13] MEDS: TRAZODONE HCL 50 MG TAB PO SCH (21:16)
[2018-04-14] VITALS (7 sets, daily range): BP systolic 121–145; BP diastolic 82–88; PULSE 58–73; TEMP 36.6–36.9; O2SAT 96–99
[2018-04-14] MEDS: MoRPHine SULFATE 2 MG/ML CARP IV PRN ×3 (05:12→20:00)
[2018-04-14] MEDS: LEVALBUTEROL 0.63MG/3 ML NEB INH SCH ×3 (07:09→19:17)
[2018-04-14] MEDS: HEPARIN 25,000 UNIT/500ML D5W 500 ML IV SCH (07:25)
[2018-04-14 07:57] LABS: HEMOGLOBIN 14.9 g/dL (14.0-18.0); MEAN CELL VOLUME 91.1 fL (80-100); MEAN CORPUSCULAR HEMOGLOBIN 30.2 pg (25-34); MEAN CORPUSCULAR HGB CONC 33.1 g/dl (32-36); MEAN PLATELET VOLUME 10.3 fL (7.4-10.4); PLATELET COUNT 126 K/uL (130-400); RED CELL DISTRIBUTION WIDTH SD 52.5 fL (36.4-46.3); WHITE BLOOD COUNT 3.31 K/uL (4.8-10.8)
[2018-04-14 08:13] LABS: PTT PATIENT 60.3 SECONDS (21.0-31.0)
[2018-04-14] MEDS: BOOST VANILLA OR BOOST GLUCOSE CONTROL CHOCOLATE PO SCH ×3 (09:12→15:35)
[2018-04-14] MEDS: CEROVITE ADV FORMULA TAB PO SCH (09:12)
[2018-04-14] MEDS: ZINC SULFATE 220 MG CAP PO SCH (09:12)
[2018-04-14] MEDS: NICOTINE 14 MG/24 HR TDSY TD SCH (09:12)
[2018-04-14] MEDS: DOCUSATE SODIUM 100 MG CAP PO SCH ×2 (09:12→21:57)
[2018-04-14] MEDS: PANTOprazole SOD 40 MG TAB PO SCH ×2 (09:12→21:59)
[2018-04-14] MEDS: OXYCODONE/ACETAMINOPHEN 5-325 TAB PO PRN ×3 (09:15→22:13)
--- NOTE | 2018-04-14 11:30 | Progress Note ---
Medicine Progress Note Date & Time of Visit: Apr 14, 2018 at 11:15 . Subjective CC: Follow-up visit for DVT LUE, lower extremity ulcers, and other problems. HPI: No fever. Persistent pain and swelling LUE. No CP or SOB. ROS: General- no fever, no chills Resp- no cough; no shortness of breath Cardiac- no chest pain, no edema GI- no nausea, no vomiting, no diarrhea, no constipation - no dysuria, no difficulty voiding . Objective Last 8 Hrs Date Time Temp Pulse Resp B/P (MAP) Pulse Ox O2 Delivery O2 Flow Rate FiO2 04/14/18 08:12 36.6 69 22 121/82 (95) 97 Room Air 04/14/18 07:09 58 18 96 Room Air Physical Exam: General- no distress Lungs- diffuse wheezing; no respiratory distress Cardiovascular- RRR; no gallop; no JVD Abdomen- + bowel sounds, soft, nontender Extremities- LUE swelling; thigh-high compression stockings applied to lower extremities Skin- warm & dry . Laboratory Results: Last 24 Hours Test 04/14/18 07:02 White Blood Count 3.31 K/uL Red Blood Count 4.94 M/uL Hemoglobin 14.9 g/dL Hematocrit 45.0 % Mean Corpuscular Volume 91.1 fL Mean Corpuscular Hemoglobin 30.2 pg Mean Corpuscular Hemoglobin Concent 33.1 g/dl RDW Standard Deviation 52.5 fL RDW Coefficient of Variation 16.0 % Platelet Count 126 K/uL Mean Platelet Volume 10.3 fL Prothrombin Time 10.0 SECONDS Prothromb Time International Ratio 1.0 Activated Partial Thromboplast Time 60.3 SECONDS Partial Thromboplastin Ratio 2.3 Assessment & Plan DVT LEFT UPPER EXTREMITY (present on admission) Presented with pain and swelling of left arm. Venous duplex demonstrated extensive thrombosis of left axillary, basilic, and brachial veins. Recent PICC line. History of prior DVT's with documented hypercoagulable condition (Prothrombin Factor II Mutation, 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, borderline hyperhomocystinemia). Patient states that he has been compliant with rivaroxaban. Initially received IV heparin; transition to SQ enoxaparin. Transition to warfarin in light of rivaroxaban failure. CHRONIC ULCERS LOWER EXTREMITIES Chronic venous stasis dermatitis with associated lower extremity ulcers. History recent MRSA. Treated with course of IV antibiotics via PICC, now with DVT LUE. ID consulted. Wound culture from 04/12 growing gram neg bacillus and coag neg Staph. Continue daptomycin. Add ceftriaxone for gram negative coverage pending final culture report. COPD Continue bronchodilators. PULMONARY NODULE CT demonstrated 4 mm RUL nodule. Smoker. Follow-up CT recommended in 12 months per Fleischner Society recommendations. TOBACCO USE Tobacco cessation counseling. HISTORY MRSA Contact precautions DISPOSITION To be determined. . Current Inpatient Medications: Current Inpatient Medications Medications (Trade) Dose Ordered Sig/Ilia Route Start Time Stop Time Status Last Admin Dose Admin Ioversol (Optiray 320) 100 ml UD PRN IV 04/12/18 12:30 04/16/18 12:29 Acetaminophen (Tylenol Tab) 650 mg Q4H PRN PO 04/12/18 14:45 05/12/18 14:44 Docusate Sodium (coLACE CAP) 100 mg BID PO 04/12/18 21:00 05/12/18 20:59 04/14/18 09:12 100 MG Folic Acid (Folvite Tab) 1 mg DAILY PO 04/13/18 09:00 05/13/18 08:59 04/14/18 09:12 1 MG Multivitamins/ Minerals (Multivitamin W/ Minerals Tab) 1 tab QAM PO 04/13/18 09:00 05/13/18 08:59 04/14/18 09:12 1 TAB Nicotine (Nicoderm Cq 14MG Patch) 1 patch QAM TD 04/13/18 09:00 05/13/18 08:59 04/14/18 09:12 1 PATCH Oxycodone/ Acetaminophen (Percocet 5-325mg Tab) 1 tab Q6H PRN PO 04/12/18 14:45 04/26/18 14:44 04/14/18 09:15 1 TAB Zinc Sulfate (Zinc Sulfate Cap) 220 mg QAM PO 04/13/18 09:00 05/13/18 08:59 04/14/18 09:12 220 MG Pantoprazole Sodium (Protonix Tab) 40 mg BID PO 04/12/18 21:00 05/12/18 20:59 04/14/18 09:12 40 MG Trazodone HCl (Desyrel Tab) 150 mg HS PO 04/12/18 21:00 9/15/18 20:59 04/13/18 21:16 150 MG Miscellaneous (Remove Nicoderm Patch) 1 ea HS N/A 04/12/18 21:00 05/12/18 20:59 04/13/18 21:15 1 EA Levalbuterol (Xopenex 0.63 Mg/ 3 Ml Neb) 0.63 mg TIDR INH 04/12/18 21:00 05/12/18 20:59 04/14/18 07:09 0.63 MG Morphine Sulfate (MoRPHine SULFATE INJ) 4 mg Q4H PRN IV 04/12/18 15:15 04/26/18 14:44 04/14/18 05:12 4 MG Miscellaneous Information (Order Awaiting Action) 1 ea QS N/A 04/13/18 00:00 05/13/18 00:00 Daptomycin 400 mg/ Syringe 8 ml @ 4 mls/min DAILY@1400 IV 04/13/18 14:00 04/22/18 13:59 04/13/18 14:40 4 MLS/MIN Heparin Sodium/ Dextrose 500 ml @ 38 mls/hr [id number] IV 04/12/18 18:30 05/12/18 18:29 04/14/18 07:25 38 MLS/HR Enteral Nutritional Formula (Boost) 1 can TIDM PO 04/13/18 17:00 05/13/18 16:59 04/14/18 09:12 1 CAN
[2018-04-14] MEDS: DAPTOmycin IV 400 MG in SYRINGE 0 ML IV SCH (15:34)
[2018-04-14] MEDS: CEFTRIAXONE SOD INJ 2,000 MG in DEXTROSE 5% 50ML 50 ML IV SCH (15:34)
[2018-04-14] MEDS: WARFARIN SOD 10 MG TAB PO SCH (16:13)
[2018-04-14] MEDS: TRAZODONE HCL 50 MG TAB PO SCH (21:58)
[2018-04-14] MEDS: ENOXAPARIN 120 MG/0.8 ML SYR SQ SCH (22:00)
[2018-04-15] VITALS (7 sets, daily range): BP systolic 145–157; BP diastolic 83–95; PULSE 67–72; TEMP 36.7–36.8; O2SAT 96–99
[2018-04-15] MEDS: LEVALBUTEROL 0.63MG/3 ML NEB INH SCH ×3 (06:52→19:05)
[2018-04-15] MEDS: BOOST VANILLA OR BOOST GLUCOSE CONTROL CHOCOLATE PO SCH ×4 (07:40→22:02)
[2018-04-15] MEDS: ZINC SULFATE 220 MG CAP PO SCH (07:41)
[2018-04-15] MEDS: DOCUSATE SODIUM 100 MG CAP PO SCH ×2 (07:43→22:06)
[2018-04-15] MEDS: NICOTINE 14 MG/24 HR TDSY TD SCH (07:43)
[2018-04-15] MEDS: PANTOprazole SOD 40 MG TAB PO SCH ×2 (07:44→22:05)
[2018-04-15] MEDS: CEROVITE ADV FORMULA TAB PO SCH (07:44)
[2018-04-15] MEDS: ENOXAPARIN 120 MG/0.8 ML SYR SQ SCH ×2 (07:47→22:05)
[2018-04-15] MEDS: MoRPHine SULFATE 2 MG/ML CARP IV PRN ×3 (07:53→22:06)
[2018-04-15 08:00] LABS: HEMATOCRIT 45.6 % (42-52); HEMOGLOBIN 14.8 g/dL (14.0-18.0); MEAN CELL VOLUME 91.6 fL (80-100); MEAN CORPUSCULAR HEMOGLOBIN 29.7 pg (25-34); MEAN CORPUSCULAR HGB CONC 32.5 g/dl (32-36); MEAN PLATELET VOLUME 10.4 fL (7.4-10.4); PLATELET COUNT 130 K/uL (130-400); RED CELL DISTRIBUTION WIDTH CV 16.1 % (11.5-14.5); RED CELL DISTRIBUTION WIDTH SD 53.2 fL (36.4-46.3); WHITE BLOOD COUNT 2.73 K/uL (4.8-10.8)
[2018-04-15 08:06] LABS: INR 1.2 (0.9-1.1)
[2018-04-15] MEDS: OXYCODONE/ACETAMINOPHEN 5-325 TAB PO PRN (13:49)
[2018-04-15] MEDS: CEFTRIAXONE SOD INJ 2,000 MG in DEXTROSE 5% 50ML 50 ML IV SCH (13:49)
[2018-04-15] MEDS: DAPTOmycin IV 400 MG in SYRINGE 0 ML IV SCH (13:50)
[2018-04-15] MEDS: WARFARIN SOD 10 MG TAB PO SCH (16:26)
--- NOTE | 2018-04-15 18:04 | Progress Note ---
Medicine Progress Note Date & Time of Visit: Apr 15, 2018 at 11:10 . Subjective CC: Follow-up visit for DVT LUE, lower extremity ulcers, and other problems. HPI: No fever. Less pain and swelling LUE. No CP or SOB. ROS: General- no fever, no chills Resp- no cough; no shortness of breath Cardiac- no chest pain, no edema GI- no nausea, no vomiting, no diarrhea, no constipation - no dysuria . Objective Last 8 Hrs Date Time Temp Pulse Resp B/P (MAP) Pulse Ox O2 Delivery O2 Flow Rate FiO2 04/15/18 16:00 99 Room Air 04/15/18 15:32 36.8 70 18 145/83 (103) 99 Room Air 04/15/18 14:42 68 18 98 Room Air Physical Exam: General- no distress Lungs- diffuse wheezing; no respiratory distress Cardiovascular- RRR; no gallop; no JVD Abdomen- + bowel sounds, soft, nontender Extremities- LUE swelling improved; thigh-high compression stockings applied to lower extremities Skin- warm & dry . Laboratory Results: Last 24 Hours Test 04/15/18 07:25 White Blood Count 2.73 K/uL Red Blood Count 4.98 M/uL Hemoglobin 14.8 g/dL Hematocrit 45.6 % Mean Corpuscular Volume 91.6 fL Mean Corpuscular Hemoglobin 29.7 pg Mean Corpuscular Hemoglobin Concent 32.5 g/dl RDW Standard Deviation 53.2 fL RDW Coefficient of Variation 16.1 % Platelet Count 130 K/uL Mean Platelet Volume 10.4 fL Prothrombin Time 12.7 SECONDS Prothromb Time International Ratio 1.2 Assessment & Plan DVT LEFT UPPER EXTREMITY (present on admission) Presented with pain and swelling of left arm. Venous duplex demonstrated extensive thrombosis of left axillary, basilic, and brachial veins. Recent PICC line. History of prior DVT's with documented hypercoagulable condition (Prothrombin Factor II Mutation, 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, borderline hyperhomocystinemia). Patient states that he has been compliant with rivaroxaban. Initially received IV heparin; transitioned to SQ enoxaparin. Transitioning to warfarin in light of rivaroxaban failure. CHRONIC ULCERS LOWER EXTREMITIES Chronic venous stasis dermatitis with associated lower extremity ulcers. History recent MRSA. Treated with course of IV antibiotics via PICC, now with DVT LUE. ID consulted. Wound culture from 04/12 growing: coag neg Staph Staph sp. Pseudomonas aeruginosa resistant to quinolones. Continue daptomycin. Change gram negative coverage from ceftriaxone to cefepime in light of Pseudomonas. COPD Continue bronchodilators. PULMONARY NODULE CT demonstrated 4 mm RUL nodule. Smoker. Follow-up CT recommended in 12 months per Fleischner Society recommendations. TOBACCO USE Tobacco cessation counseling. HISTORY MRSA Contact precautions DISPOSITION To be determined. . Current Inpatient Medications: Current Inpatient Medications Medications (Trade) Dose Ordered Sig/Ilia Route Start Time Stop Time Status Last Admin Dose Admin Ioversol (Optiray 320) 100 ml UD PRN IV 04/12/18 12:30 04/16/18 12:29 Acetaminophen (Tylenol Tab) 650 mg Q4H PRN PO 04/12/18 14:45 05/12/18 14:44 Docusate Sodium (coLACE CAP) 100 mg BID PO 04/12/18 21:00 05/12/18 20:59 04/15/18 07:43 100 MG Folic Acid (Folvite Tab) 1 mg DAILY PO 04/13/18 09:00 05/13/18 08:59 04/15/18 07:42 1 MG Multivitamins/ Minerals (Multivitamin W/ Minerals Tab) 1 tab QAM PO 04/13/18 09:00 05/13/18 08:59 04/15/18 07:44 1 TAB Nicotine (Nicoderm Cq 14MG Patch) 1 patch QAM TD 04/13/18 09:00 05/13/18 08:59 04/15/18 07:43 1 PATCH Oxycodone/ Acetaminophen (Percocet 5-325mg Tab) 1 tab Q6H PRN PO 04/12/18 14:45 04/26/18 14:44 04/15/18 13:49 1 TAB Zinc Sulfate (Zinc Sulfate Cap) 220 mg QAM PO 04/13/18 09:00 05/13/18 08:59 04/15/18 07:41 220 MG Trazodone HCl (Desyrel Tab) 150 mg HS PO 04/12/18 21:00 05/12/18 20:59 04/14/18 21:58 150 MG Miscellaneous (Remove Nicoderm Patch) 1 ea HS N/A 04/12/18 21:00 05/12/18 20:59 8/18/18 21:00 1 EA Levalbuterol (Xopenex 0.63 Mg/ 3 Ml Neb) 0.63 mg TIDR INH 04/12/18 21:00 05/12/18 20:59 04/15/18 14:41 0.63 MG Morphine Sulfate (MoRPHine SULFATE INJ) 4 mg Q4H PRN IV 04/12/18 15:15 04/26/18 14:44 04/15/18 16:11 4 MG Miscellaneous Information (Order Awaiting Action) 1 ea QS N/A 04/13/18 00:00 05/13/18 00:00 Daptomycin 400 mg/ Syringe 8 ml @ 4 mls/min DAILY@1400 IV 04/13/18 14:00 04/22/18 13:59 04/15/18 13:50 4 MLS/MIN Enoxaparin Sodium (Lovenox Inj) 111 mg Q12 SQ 04/14/18 21:00 05/14/18 20:59 04/15/18 07:47 111 MG Warfarin Sodium (Coumadin Tab) 10 mg DAILY@16 PO 04/14/18 16:00 05/14/18 15:59 04/15/18 16:26 10 MG Ceftriaxone Sodium 2000 mg/ Dextrose 70 ml @ 100 mls/hr Q24H IV 04/14/18 14:00 04/24/18 13:14 04/15/18 13:49 100 MLS/HR Pantoprazole Sodium (Protonix Tab) 40 mg BID PO 04/14/18 21:00 05/12/18 20:59 04/15/18 07:44 40 MG Enteral Nutritional Formula (Boost) 1 can TID PO 04/15/18 17:30 05/15/18 17:29
[2018-04-15] MEDS ORDERED: CEFEPIME IV 2,000 MG in DEXTROSE 5% 100ML 100 ML IV SCH (21:00)
[2018-04-15] MEDS: CEFEPIME IV 2,000 MG in SYRINGE 7.5 ML IV SCH (22:04)
[2018-04-15] MEDS: TRAZODONE HCL 50 MG TAB PO SCH (22:06)
[2018-04-16] VITALS (7 sets, daily range): BP systolic 115–142; BP diastolic 70–88; PULSE 57–68; TEMP 36.6–36.7; O2SAT 95–99
[2018-04-16] MEDS: MoRPHine SULFATE 2 MG/ML CARP IV PRN ×3 (06:25→19:33)
[2018-04-16] MEDS: LEVALBUTEROL 0.63MG/3 ML NEB INH SCH ×3 (07:11→19:05)
[2018-04-16 07:47] LABS: INR 1.5 (0.9-1.1)
[2018-04-16] MEDS: PANTOprazole SOD 40 MG TAB PO SCH ×2 (08:45→21:02)
[2018-04-16] MEDS: NICOTINE 14 MG/24 HR TDSY TD SCH (08:45)
[2018-04-16] MEDS: CEROVITE ADV FORMULA TAB PO SCH (08:45)
[2018-04-16] MEDS: DOCUSATE SODIUM 100 MG CAP PO SCH ×2 (08:45→21:01)
[2018-04-16] MEDS: ZINC SULFATE 220 MG CAP PO SCH (08:45)
[2018-04-16] MEDS: ENOXAPARIN 120 MG/0.8 ML SYR SQ SCH ×2 (08:45→21:03)
[2018-04-16] MEDS: BOOST VANILLA OR BOOST GLUCOSE CONTROL CHOCOLATE PO SCH ×3 (08:46→21:01)
[2018-04-16] MEDS: CEFEPIME IV 2,000 MG in SYRINGE 7.5 ML IV SCH ×2 (08:58→21:01)
[2018-04-16] MEDS: OXYCODONE/ACETAMINOPHEN 5-325 TAB PO PRN ×3 (08:58→21:03)
--- NOTE | 2018-04-16 09:38 | Progress Note ---
Subjective Date of Service: Apr 16, 2018. Subjective wound culture with staph and pseudomonas, now quinolone resistant. placed on cefepime, tolerating well. remains afebrile. undergoing treatment for dvt. Problem List Medical Problems: (1) Cellulitis Status: Chronic (2) Cellulitis of left lower leg Status: Acute (3) Cellulitis of right lower extremity Status: Acute (4) DVT of lower extremity, bilateral Status: Acute (5) DVT of upper extremity (deep vein thrombosis) Status: Acute (6) Failure of outpatient treatment Status: Acute (7) Lower extremity cellulitis Status: Acute (8) Superficial thrombophlebitis Status: Acute (9) Superficial thrombosis of both lower extremities Status: Acute (10) Wound of lower extremity Status: Acute (11) Wound, open, leg Status: Acute Objective Vital Signs Date Time Temp Pulse Resp B/P (MAP) Pulse Ox O2 Delivery O2 Flow Rate FiO2 04/16/18 07:13 61 18 98 Room Air 04/16/18 07:07 36.6 68 18 142/88 (106) 95 Room Air 04/16/18 01:27 Room Air 04/15/18 21:59 36.8 67 16 157/93 (114) 96 Room Air 04/15/18 19:06 72 18 98 Room Air 04/15/18 16:00 99 Room Air 04/15/18 15:32 36.8 70 18 145/83 (103) 99 Room Air 04/15/18 14:42 68 18 98 Room Air Laboratory Results Item Value Date Time Gram Stain - Final Complete 02/08/18 1420 Ulcer Leg Right Lower Gram Stain - Final Complete 02/08/18 1420 Ulcer Leg Lower Left Blood Culture - Preliminary Resulted 02/07/18 1505 Blood NO GROWTH TO DATE. Blood Culture - Preliminary Resulted 02/07/18 1450 Blood NO GROWTH TO DATE. Gram Stain - Final Resulted 04/12/18 1725 Skin Leg Last 24 Hours Test 04/16/18 07:11 Prothrombin Time 15.7 SECONDS Prothromb Time International Ratio 1.5 Assessment and Plan (1) Chronic venous stasis dermatitis of both lower extremities Assessment & Plan: continue abx for now await final cultures. no po options to treat pseudomonas. may need short course IV abx.
[2018-04-16] MEDS: DAPTOmycin IV 400 MG in SYRINGE 0 ML IV SCH (13:57)
[2018-04-16] MEDS: WARFARIN SOD 10 MG TAB PO SCH (16:08)
--- NOTE | 2018-04-16 19:32 | Progress Note ---
Medicine Progress Note Date & Time of Visit: Apr 16, 2018 at 16:20 . Subjective CC: Follow-up visit for DVT LUE, lower extremity ulcers, and other problems. HPI: No fever. Still has some discomfort in his left arm. No CP or SOB. ROS: General- no fever, no chills Resp- no cough; no shortness of breath Cardiac- no chest pain, no edema GI- no nausea, no vomiting, no diarrhea, no constipation - no dysuria . Objective Last 8 Hrs Date Time Temp Pulse Resp B/P (MAP) Pulse Ox O2 Delivery O2 Flow Rate FiO2 04/16/18 19:05 64 16 99 Room Air 04/16/18 15:32 96 Room Air 04/16/18 15:19 36.7 63 22 139/82 (101) 96 Room Air 04/16/18 14:40 57 16 98 Room Air Physical Exam: General- no distress Lungs- diffuse wheezing; no respiratory distress Cardiovascular- RRR; no gallop; no JVD Abdomen- + bowel sounds, soft, nontender Extremities- mild LUE edema; thigh-high compression stockings applied to lower extremities Skin- warm & dry . Laboratory Results: Last 24 Hours Test 04/16/18 07:11 Prothrombin Time 15.7 SECONDS Prothromb Time International Ratio 1.5 Assessment & Plan DVT LEFT UPPER EXTREMITY (present on admission) Presented with pain and swelling of left arm. Venous duplex demonstrated extensive thrombosis of left axillary, basilic, and brachial veins. Recent PICC line. History of prior DVT's with documented hypercoagulable condition (Prothrombin Factor II Mutation, 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, borderline hyperhomocystinemia). Patient states that he has been compliant with rivaroxaban. Initially received IV heparin; transitioned to SQ enoxaparin. Transitioning to warfarin in light of rivaroxaban failure. INR today = 1.5. Continue SQ enoxaparin until INR therapeutic for at least 2 consecutive days. CHRONIC ULCERS LOWER EXTREMITIES Chronic venous stasis dermatitis with associated lower extremity ulcers. History recent MRSA. Treated with course of IV antibiotics via PICC, now with DVT LUE. ID consulted. Wound culture from 04/12 growing: coag neg Staph Staph sp. Pseudomonas aeruginosa resistant to quinolones. Continue daptomycin. Changed gram negative coverage from ceftriaxone to cefepime in light of Pseudomonas. COPD Continue bronchodilators. PULMONARY NODULE CT demonstrated 4 mm RUL nodule. Smoker. Follow-up CT recommended in 12 months per Fleischner Society recommendations. TOBACCO USE Tobacco cessation counseling. HISTORY MRSA Contact precautions DISPOSITION To be determined. Primary Care follow-up with Antonio Jo PA-C. . Current Inpatient Medications: Current Inpatient Medications Medications (Trade) Dose Ordered Sig/Ilia Route Start Time Stop Time Status Last Admin Dose Admin Acetaminophen (Tylenol Tab) 650 mg Q4H PRN PO 04/12/18 14:45 05/12/18 14:44 Docusate Sodium (coLACE CAP) 100 mg BID PO 04/12/18 21:00 05/12/18 20:59 04/16/18 08:45 100 MG Folic Acid (Folvite Tab) 1 mg DAILY PO 04/13/18 09:00 05/13/18 08:59 04/16/18 08:44 1 MG Multivitamins/ Minerals (Multivitamin W/ Minerals Tab) 1 tab QAM PO 04/13/18 09:00 05/13/18 08:59 04/16/18 08:45 1 TAB Nicotine (Nicoderm Cq 14MG Patch) 1 patch QAM TD 04/13/18 09:00 05/13/18 08:59 04/16/18 08:45 1 PATCH Oxycodone/ Acetaminophen (Percocet 5-325mg Tab) 1 tab Q6H PRN PO 04/12/18 14:45 04/26/18 14:44 04/16/18 15:19 1 TAB Zinc Sulfate (Zinc Sulfate Cap) 220 mg QAM PO 04/13/18 09:00 05/13/18 08:59 04/16/18 08:45 220 MG Trazodone HCl (Desyrel Tab) 150 mg HS PO 04/12/18 21:00 05/12/18 20:59 04/15/18 22:06 150 MG Miscellaneous (Remove Nicoderm Patch) 1 ea HS N/A 04/12/18 21:00 05/12/18 20:59 04/15/18 22:02 1 EA Levalbuterol (Xopenex 0.63 Mg/ 3 Ml Neb) 0.63 mg TIDR INH 04/12/18 21:00 05/12/18 20:59 04/16/18 19:05 0.63 MG Morphine Sulfate (MoRPHine SULFATE INJ) 4 mg Q4H PRN IV 04/12/18 15:15 04/26/18 14:44 04/16/18 12:59 4 MG Miscellaneous Information (Order Awaiting Action) 1 ea QS N/A 04/13/18 00:00 05/13/18 00:00 Daptomycin 400 mg/ Syringe 8 ml @ 4 mls/min DAILY@1400 IV 04/13/18 14:00 04/22/18 13:59 04/16/18 13:57 4 MLS/MIN Enoxaparin Sodium (Lovenox Inj) 111 mg Q12 SQ 04/14/18 21:00 05/14/18 20:59 04/16/18 08:45 111 MG Warfarin Sodium (Coumadin Tab) 10 mg DAILY@16 PO 04/14/18 16:00 05/14/18 15:59 04/16/18 16:08 10 MG Pantoprazole Sodium (Protonix Tab) 40 mg BID PO 04/14/18 21:00 05/12/18 20:59 04/16/18 08:45 40 MG Enteral Nutritional Formula (Boost) 1 can TID PO 04/15/18 17:30 05/15/18 17:29 04/16/18 13:57 1 CAN Cefepime HCl 2000 mg/Syringe 20 ml @ 5 mls/min Q12 IV 04/15/18 21:00 04/25/18 20:59 04/16/18 08:58 5 MLS/MIN
[2018-04-16] MEDS: TRAZODONE HCL 50 MG TAB PO SCH (21:02)
[2018-04-17] VITALS (7 sets, daily range): BP systolic 114–143; BP diastolic 76–87; PULSE 59–80; TEMP 36.5–36.9; O2SAT 95–99
[2018-04-17] MEDS: MoRPHine SULFATE 2 MG/ML CARP IV PRN ×3 (06:08→19:07)
[2018-04-17 07:02] LABS: HEMATOCRIT 45.4 % (42-52); HEMOGLOBIN 15.2 g/dL (14.0-18.0); MEAN CELL VOLUME 90.3 fL (80-100); MEAN CORPUSCULAR HEMOGLOBIN 30.2 pg (25-34); MEAN CORPUSCULAR HGB CONC 33.5 g/dl (32-36); PLATELET COUNT 133 K/uL (130-400); RED CELL DISTRIBUTION WIDTH CV 16.1 % (11.5-14.5); RED CELL DISTRIBUTION WIDTH SD 52.8 fL (36.4-46.3); WHITE BLOOD COUNT 3.14 K/uL (4.8-10.8)
[2018-04-17 07:13] LABS: INR 1.7 (0.9-1.1)
[2018-04-17] MEDS: LEVALBUTEROL 0.63MG/3 ML NEB INH SCH ×3 (07:18→20:01)
[2018-04-17 07:29] LABS: CALCIUM 9.3 mg/dl (8.5-10.1); CREATININE 0.86 mg/dl (0.60-1.40); POTASSIUM 4.1 mmol/L (3.5-5.1)
[2018-04-17] MEDS: CEFEPIME IV 2,000 MG in SYRINGE 7.5 ML IV SCH ×2 (08:40→21:20)
[2018-04-17] MEDS: OXYCODONE/ACETAMINOPHEN 5-325 TAB PO PRN ×3 (08:40→21:22)
[2018-04-17] MEDS: PANTOprazole SOD 40 MG TAB PO SCH ×2 (08:41→21:45)
[2018-04-17] MEDS: DOCUSATE SODIUM 100 MG CAP PO SCH ×2 (08:41→21:46)
[2018-04-17] MEDS: ENOXAPARIN 120 MG/0.8 ML SYR SQ SCH ×2 (08:41→21:23)
[2018-04-17] MEDS: CEROVITE ADV FORMULA TAB PO SCH (08:41)
[2018-04-17] MEDS: ZINC SULFATE 220 MG CAP PO SCH (08:41)
[2018-04-17] MEDS: NICOTINE 14 MG/24 HR TDSY TD SCH (08:42)
[2018-04-17] MEDS: BOOST VANILLA OR BOOST GLUCOSE CONTROL CHOCOLATE PO SCH ×3 (08:43→21:45)
--- NOTE | 2018-04-17 10:55 | Progress Note ---
Medicine Progress Note Date & Time of Visit: Apr 17, 2018 at 10:55. Subjective seen resting in bed, comfortable states he still has significant left upper arm pain, improving no chest pain, dyspnea no leg pain no bleeding no other symptoms Objective Last 8 Hrs Date Time Temp Pulse Resp B/P (MAP) Pulse Ox O2 Delivery O2 Flow Rate FiO2 04/17/18 08:00 Room Air 04/17/18 07:22 36.5 59 18 143/87 (105) 97 Room Air 04/17/18 07:18 66 16 98 Room Air 04/17/18 06:15 Room Air Physical Exam: General- oriented x 3, not in distress, speaks in sentences with no effort Head- atraumatic Eyes- anicteric ENT- oropharynx clear Neck- supple, no JVD Lungs- clear breath sounds bilaterally no rales/wheezes Heart- regular rhythm; no murmur, normal rate Abdomen- normal bowel sounds, soft, nontender Extremities-right lower leg: (+) diffuse white crusted skin, with open wound- no signs of active infection/discharge left lower leg: (+) diffuse white crusted skin, 2 areas of small open wound, no active infection/discharge left upper extremity: mild edema and warmth, no tenderness Neuro- alert, oriented x 3; no gross focal deficits Skin- warm & dry Laboratory Results: Last 24 Hours Test 04/17/18 06:35 White Blood Count 3.14 K/uL Red Blood Count 5.03 M/uL Hemoglobin 15.2 g/dL Hematocrit 45.4 % Mean Corpuscular Volume 90.3 fL Mean Corpuscular Hemoglobin 30.2 pg Mean Corpuscular Hemoglobin Concent 33.5 g/dl RDW Standard Deviation 52.8 fL RDW Coefficient of Variation 16.1 % Platelet Count 133 K/uL Mean Platelet Volume 10.0 fL Prothrombin Time 17.5 SECONDS Prothromb Time International Ratio 1.7 Sodium Level 136 mmol/L Potassium Level 4.1 mmol/L Chloride Level 103 mmol/L Carbon Dioxide Level 27 mmol/L Anion Gap 6.0 mmol/L Blood Urea Nitrogen 10 mg/dl Creatinine 0.86 mg/dl Est Creatinine Clear Calc Drug Dose 134.6 ml/min Estimated GFR () 123.1 Estimated GFR (Non- 106.2 BUN/Creatinine Ratio 11.0 Random Glucose 142 mg/dl Calcium Level 9.3 mg/dl Assessment & Plan DVT LEFT UPPER EXTREMITY (present on admission) per Dr. Kuhn notes: Presented with pain and swelling of left arm. Venous duplex demonstrated extensive thrombosis of left axillary, basilic, and brachial veins. Recent PICC line. History of prior DVT's with documented hypercoagulable condition (Prothrombin Factor II Mutation, 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, borderline hyperhomocystinemia). Patient states that he has been compliant with rivaroxaban. Initially received IV heparin; transitioned to SQ enoxaparin. Transitioning to warfarin in light of rivaroxaban failure. INR 1.7 Continue coumadin 10mg po daily Continue SQ enoxaparin until INR therapeutic for at least 2 consecutive days. CHRONIC ULCERS LOWER EXTREMITIES per Dr. Kuhn notes: Chronic venous stasis dermatitis with associated lower extremity ulcers. History of recent MRSA. Treated with course of IV antibiotics via PICC, now with DVT LUE. ID consulted. Wound culture from 04/12 growing: coag neg Staph Staph sp. Pseudomonas aeruginosa resistant to quinolones. on Dapto and Cefepime (antibiotic day 6) ID consulted-- recommend to continue IV antibiotics for now, hold off on further antibiotics on discharge, continue consistent ff up with wound care COPD Continue bronchodilators. PULMONARY NODULE CT demonstrated 4 mm RUL nodule. Smoker. Follow-up CT recommended in 12 months per Fleischner Society recommendations. TOBACCO USE Tobacco cessation counseling. HISTORY MRSA Contact precautions DISPOSITION pending will need ff up with: PCP Wound care, ID Clinic Coumadin Clinic Current Inpatient Medications: Current Inpatient Medications Medications (Trade) Dose Ordered Sig/Ilia Route Start Time Stop Time Status Last Admin Dose Admin Acetaminophen (Tylenol Tab) 650 mg Q4H PRN PO 04/12/18 14:45 05/12/18 14:44 Docusate Sodium (coLACE CAP) 100 mg BID PO 04/12/18 21:00 05/12/18 20:59 04/17/18 08:41 100 MG Folic Acid (Folvite Tab) 1 mg DAILY PO 04/13/18 09:00 05/13/18 08:59 04/17/18 08:41 1 MG Multivitamins/ Minerals (Multivitamin W/ Minerals Tab) 1 tab QAM PO 04/13/18 09:00 05/13/18 08:59 04/17/18 08:41 1 TAB Nicotine (Nicoderm Cq 14MG Patch) 1 patch QAM TD 04/13/18 09:00 05/13/18 08:59 04/17/18 08:42 1 PATCH Oxycodone/ Acetaminophen (Percocet 5-325mg Tab) 1 tab Q6H PRN PO 04/12/18 14:45 04/26/18 14:44 04/17/18 08:40 1 TAB Zinc Sulfate (Zinc Sulfate Cap) 220 mg QAM PO 04/13/18 09:00 05/13/18 08:59 04/17/18 08:41 220 MG Trazodone HCl (Desyrel Tab) 150 mg HS PO 04/12/18 21:00 05/12/18 20:59 04/16/18 21:02 150 MG Miscellaneous (Remove Nicoderm Patch) 1 ea HS N/A 04/12/18 21:00 05/12/18 20:59 04/16/18 21:04 1 EA Levalbuterol (Xopenex 0.63 Mg/ 3 Ml Neb) 0.63 mg TIDR INH 04/12/18 21:00 05/12/18 20:59 04/17/18 07:18 0.63 MG Morphine Sulfate (MoRPHine SULFATE INJ) 4 mg Q4H PRN IV 04/12/18 15:15 04/26/18 14:44 04/17/18 06:08 4 MG Miscellaneous Information (Order Awaiting Action) 1 ea QS N/A 04/13/18 00:00 05/13/18 00:00 Daptomycin 400 mg/ Syringe 8 ml @ 4 mls/min DAILY@1400 IV 04/13/18 14:00 04/22/18 13:59 04/16/18 13:57 4 MLS/MIN Enoxaparin Sodium (Lovenox Inj) 111 mg Q12 SQ 04/14/18 21:00 05/14/18 20:59 04/17/18 08:41 111 MG Pantoprazole Sodium (Protonix Tab) 40 mg BID PO 04/14/18 21:00 05/12/18 20:59 04/17/18 08:41 40 MG Enteral Nutritional Formula (Boost) 1 can TID PO 04/15/18 17:30 05/15/18 17:29 04/17/18 08:43 1 CAN Cefepime HCl 2000 mg/Syringe 20 ml @ 5 mls/min Q12 IV 04/15/18 21:00 04/25/18 20:59 04/17/18 08:40 5 MLS/MIN Warfarin Sodium (Coumadin Tab) 10 mg DAILY@16 PO 04/17/18 16:00 05/17/18 15:59
--- NOTE | 2018-04-17 13:14 | Progress Note ---
Subjective Date of Service: Apr 17, 2018. Subjective remains on cefepime and dapto. wound culture final. pseudomonas and MRSA. no po options for pseudomonas, day #6 abx. afebrile. undergoing treatment for dvt. afebrile. Problem List Medical Problems: (1) Cellulitis Status: Chronic (2) Cellulitis of left lower leg Status: Acute (3) Cellulitis of right lower extremity Status: Acute (4) DVT of lower extremity, bilateral Status: Acute (5) DVT of upper extremity (deep vein thrombosis) Status: Acute (6) Failure of outpatient treatment Status: Acute (7) Lower extremity cellulitis Status: Acute (8) Superficial thrombophlebitis Status: Acute (9) Superficial thrombosis of both lower extremities Status: Acute (10) Wound of lower extremity Status: Acute (11) Wound, open, leg Status: Acute Objective Vital Signs Date Time Temp Pulse Resp B/P (MAP) Pulse Ox O2 Delivery O2 Flow Rate FiO2 04/17/18 08:00 Room Air 04/17/18 07:22 36.5 59 18 143/87 (105) 97 Room Air 04/17/18 07:18 66 16 98 Room Air 04/17/18 06:15 Room Air 04/16/18 22:48 36.7 64 18 115/70 (85) 99 Room Air 04/16/18 19:05 64 16 99 Room Air 04/16/18 15:32 96 Room Air 04/16/18 15:19 36.7 63 22 139/82 (101) 96 Room Air 04/16/18 14:40 57 16 98 Room Air Laboratory Results Item Value Date Time Gram Stain - Final Complete 04/12/18 1725 Skin Leg Last 24 Hours Test 04/17/18 06:35 White Blood Count 3.14 K/uL Red Blood Count 5.03 M/uL Hemoglobin 15.2 g/dL Hematocrit 45.4 % Mean Corpuscular Volume 90.3 fL Mean Corpuscular Hemoglobin 30.2 pg Mean Corpuscular Hemoglobin Concent 33.5 g/dl RDW Standard Deviation 52.8 fL RDW Coefficient of Variation 16.1 % Platelet Count 133 K/uL Mean Platelet Volume 10.0 fL Prothrombin Time 17.5 SECONDS Prothromb Time International Ratio 1.7 Sodium Level 136 mmol/L Potassium Level 4.1 mmol/L Chloride Level 103 mmol/L Carbon Dioxide Level 27 mmol/L Anion Gap 6.0 mmol/L Blood Urea Nitrogen 10 mg/dl Creatinine 0.86 mg/dl Est Creatinine Clear Calc Drug Dose 134.6 ml/min Estimated GFR () 123.1 Estimated GFR (Non- 106.2 BUN/Creatinine Ratio 11.0 Random Glucose 142 mg/dl Calcium Level 9.3 mg/dl Assessment and Plan (1) Chronic venous stasis dermatitis of both lower extremities Assessment & Plan: legs improved compared to previous hospital stays. recently finished course of IV abx. has been noncompliant with wound care. would continue IV abx for now, day #6. would favor holding abx post d/c as he would require picc line and with ongoing dvt this would be a risk for recurrent clot. suspect he would improved with regular wound care.
[2018-04-17] MEDS: DAPTOmycin IV 400 MG in SYRINGE 0 ML IV SCH (13:45)
[2018-04-17] MEDS ORDERED: WARFARIN SOD 10 MG TAB PO SCH (16:00)
[2018-04-17] MEDS ORDERED: WARFARIN SOD 5 MG TAB PO SCH (16:00)
[2018-04-17] MEDS: TRAZODONE HCL 50 MG TAB PO SCH (21:23)
[2018-04-18] VITALS (7 sets, daily range): BP systolic 120–132; BP diastolic 74–87; PULSE 68–90; TEMP 36.6–36.8; O2SAT 94–99
[2018-04-18] MEDS: LEVALBUTEROL 0.63MG/3 ML NEB INH SCH ×3 (07:07→19:24)
[2018-04-18] MEDS: MoRPHine SULFATE 2 MG/ML CARP IV PRN ×3 (07:31→19:51)
[2018-04-18] MEDS: ENOXAPARIN 120 MG/0.8 ML SYR SQ SCH ×2 (08:39→21:22)
[2018-04-18] MEDS: ZINC SULFATE 220 MG CAP PO SCH (08:40)
[2018-04-18 08:41] LABS: INR 1.7 (0.9-1.1)
[2018-04-18] MEDS: CEROVITE ADV FORMULA TAB PO SCH (08:41)
[2018-04-18] MEDS: DOCUSATE SODIUM 100 MG CAP PO SCH ×2 (08:41→21:22)
[2018-04-18] MEDS: PANTOprazole SOD 40 MG TAB PO SCH ×2 (08:41→21:21)
[2018-04-18] MEDS: BOOST VANILLA OR BOOST GLUCOSE CONTROL CHOCOLATE PO SCH ×3 (08:41→19:58)
[2018-04-18] MEDS: NICOTINE 14 MG/24 HR TDSY TD SCH (08:42)
[2018-04-18] MEDS: CEFEPIME IV 2,000 MG in SYRINGE 7.5 ML IV SCH ×2 (08:42→21:20)
[2018-04-18] MEDS: OXYCODONE/ACETAMINOPHEN 5-325 TAB PO PRN ×3 (08:50→21:21)
--- NOTE | 2018-04-18 11:31 | Progress Note ---
Medicine Progress Note Date & Time of Visit: Apr 18, 2018 at 11:31. Subjective seen resting in bed, watching TV comfortable states left upper arm pain about the same no dyspnea, chest pain no other symptoms Objective Last 8 Hrs Date Time Temp Pulse Resp B/P (MAP) Pulse Ox O2 Delivery O2 Flow Rate FiO2 04/18/18 08:00 Room Air 04/18/18 07:14 36.8 70 22 124/82 (96) 97 Room Air 04/18/18 07:07 69 14 99 Room Air Physical Exam: General- oriented x 3, not in distress, speaks in sentences with no effort Head- atraumatic Eyes- anicteric ENT- oropharynx clear Neck- no JVD Lungs- clear breath sounds bilaterally Heart- regular rhythm; no murmur, normal rate Abdomen- normal bowel sounds, soft, nontender Extremities-lower legs: compression stockings in place left upper extremity: very mild edema and warmth, no tenderness Neuro- alert, oriented x 3; no gross focal deficits Skin- warm & dry Laboratory Results: Last 24 Hours Test 04/18/18 08:21 Prothrombin Time 17.3 SECONDS Prothromb Time International Ratio 1.7 Assessment & Plan DVT LEFT UPPER EXTREMITY (present on admission) per Dr. Kuhn notes: Presented with pain and swelling of left arm. Venous duplex demonstrated extensive thrombosis of left axillary, basilic, and brachial veins. Recent PICC line. History of prior DVT's with documented hypercoagulable condition (Prothrombin Factor II Mutation, 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, borderline hyperhomocystinemia). Patient states that he has been compliant with rivaroxaban. Initially received IV heparin; transitioned to SQ enoxaparin. Transitioning to warfarin in light of rivaroxaban failure. INR 1.7 increase coumadin to 12.5 mg po daily Continue SQ enoxaparin until INR therapeutic for at least 2 consecutive days. CHRONIC ULCERS LOWER EXTREMITIES per Dr. Kuhn notes: Chronic venous stasis dermatitis with associated lower extremity ulcers. History of recent MRSA. Treated with course of IV antibiotics via PICC, now with DVT AMOLE. ID consulted. Wound culture from 04/12 growing: coag neg Staph Staph sp. Pseudomonas aeruginosa resistant to quinolones. on Dapto and Cefepime ( day 7 for dapto, day 4 for cefepime) ID consulted-- recommend to continue IV antibiotics for now, hold off on further antibiotics on discharge, continue close ff up with wound care COPD Continue bronchodilators. PULMONARY NODULE CT demonstrated 4 mm RUL nodule. Smoker. Follow-up CT recommended in 12 months per Fleischner Society recommendations. TOBACCO USE Tobacco cessation counseling. HISTORY MRSA Contact precautions DISPOSITION pending will need ff up with: PCP Wound care, ID Clinic Coumadin Clinic Current Inpatient Medications: Current Inpatient Medications Medications (Trade) Dose Ordered Sig/Ilia Route Start Time Stop Time Status Last Admin Dose Admin Acetaminophen (Tylenol Tab) 650 mg Q4H PRN PO 04/12/18 14:45 05/12/18 14:44 Docusate Sodium (coLACE CAP) 100 mg BID PO 04/12/18 21:00 05/12/18 20:59 04/18/18 08:41 100 MG Folic Acid (Folvite Tab) 1 mg DAILY PO 04/13/18 09:00 05/13/18 08:59 04/18/18 08:40 1 MG Multivitamins/ Minerals (Multivitamin W/ Minerals Tab) 1 tab QAM PO 04/13/18 09:00 05/13/18 08:59 04/18/18 08:41 1 TAB Nicotine (Nicoderm Cq 14MG Patch) 1 patch QAM TD 04/13/18 09:00 05/13/18 08:59 04/18/18 08:42 1 PATCH Oxycodone/ Acetaminophen (Percocet 5-325mg Tab) 1 tab Q6H PRN PO 04/12/18 14:45 04/26/18 14:44 04/18/18 08:50 1 TAB Zinc Sulfate (Zinc Sulfate Cap) 220 mg QAM PO 04/13/18 09:00 05/13/18 08:59 04/18/18 08:40 220 MG Trazodone HCl (Desyrel Tab) 150 mg HS PO 04/12/18 21:00 05/12/18 20:59 04/17/18 21:23 150 MG Miscellaneous (Remove Nicoderm Patch) 1 ea HS N/A 04/12/18 21:00 05/12/18 20:59 04/17/18 21:23 1 EA Levalbuterol (Xopenex 0.63 Mg/ 3 Ml Neb) 0.63 mg TIDR INH 04/12/18 21:00 05/12/18 20:59 04/18/18 07:07 0.63 MG Morphine Sulfate (MoRPHine SULFATE INJ) 4 mg Q4H PRN IV 04/12/18 15:15 04/26/18 14:44 04/18/18 07:31 4 MG Miscellaneous Information (Order Awaiting Action) 1 ea QS N/A 04/13/18 00:00 05/13/18 00:00 Daptomycin 400 mg/ Syringe 8 ml @ 4 mls/min DAILY@1400 IV 04/13/18 14:00 04/22/18 13:59 04/17/18 13:45 4 MLS/MIN Enoxaparin Sodium (Lovenox Inj) 111 mg Q12 SQ 04/14/18 21:00 05/14/18 20:59 04/18/18 08:39 111 MG Pantoprazole Sodium (Protonix Tab) 40 mg BID PO 04/14/18 21:00 05/12/18 20:59 04/18/18 08:41 40 MG Enteral Nutritional Formula (Boost) 1 can TID PO 04/15/18 17:30 05/15/18 17:29 04/18/18 08:41 1 CAN Cefepime HCl 2000 mg/Syringe 20 ml @ 5 mls/min Q12 IV 04/15/18 21:00 04/25/18 20:59 04/18/18 08:42 5 MLS/MIN Warfarin Sodium (Coumadin Tab) 12.5 mg TODAY@1600 ONCE PO 04/18/18 16:00 04/18/18 16:01
[2018-04-18] MEDS: DAPTOmycin IV 400 MG in SYRINGE 0 ML IV SCH (13:45)
[2018-04-18] MEDS ORDERED: WARFARIN SOD 10 MG TAB PO SCH (16:00)
[2018-04-18] MEDS ORDERED: WARFARIN TAB 10 MG, WARFARIN TAB 2.5 MG PO ONE ×2 (16:00)
[2018-04-18] MEDS: TRAZODONE HCL 50 MG TAB PO SCH (21:20)
[2018-04-19] VITALS (7 sets, daily range): BP systolic 115–119; BP diastolic 70–77; PULSE 61–74; TEMP 36.6–36.7; O2SAT 96–98
[2018-04-19] MEDS: OXYCODONE/ACETAMINOPHEN 5-325 TAB PO PRN ×3 (04:29→16:59)
[2018-04-19] MEDS: LEVALBUTEROL 0.63MG/3 ML NEB INH SCH ×3 (06:57→19:08)
[2018-04-19 07:31] LABS: INR 1.6 (0.9-1.1)
[2018-04-19] MEDS: MoRPHine SULFATE 2 MG/ML CARP IV PRN ×3 (07:44→20:18)
[2018-04-19] MEDS: NICOTINE 14 MG/24 HR TDSY TD SCH (07:45)
[2018-04-19] MEDS: DOCUSATE SODIUM 100 MG CAP PO SCH ×2 (07:45→21:52)
[2018-04-19] MEDS: ZINC SULFATE 220 MG CAP PO SCH (07:45)
[2018-04-19] MEDS: PANTOprazole SOD 40 MG TAB PO SCH ×2 (07:46→21:52)
[2018-04-19] MEDS: CEROVITE ADV FORMULA TAB PO SCH (07:46)
[2018-04-19] MEDS: BOOST VANILLA OR BOOST GLUCOSE CONTROL CHOCOLATE PO SCH ×3 (07:46→21:00)
[2018-04-19] MEDS: ENOXAPARIN 120 MG/0.8 ML SYR SQ SCH ×2 (07:48→21:53)
[2018-04-19] MEDS: CEFEPIME IV 2,000 MG in SYRINGE 7.5 ML IV SCH ×2 (08:13→21:52)
[2018-04-19] MEDS: DAPTOmycin IV 400 MG in SYRINGE 0 ML IV SCH (15:13)
[2018-04-19] MEDS ORDERED: WARFARIN SOD 7.5 MG TAB PO ONE (16:30)
[2018-04-19] MEDS ORDERED: CYCLOBENZAPRINE HCL 5 MG TAB PO ONE (17:44)
--- NOTE | 2018-04-19 17:52 | Progress Note ---
Medicine Progress Note Date & Time of Visit: Apr 19, 2018 at 17:47. Subjective seen resting in bed, watching tv, not in distress reports pain over the left upper ext/neck is about the same worse with neck rotation no chest pain, dyspnea, leg pain no other symptoms Objective Last 8 Hrs Date Time Temp Pulse Resp B/P (MAP) Pulse Ox O2 Delivery O2 Flow Rate FiO2 04/19/18 15:10 36.7 74 18 116/72 (87) 96 Room Air 04/19/18 14:19 66 16 98 Room Air Physical Exam: General- oriented x 3, not in distress, speaks in sentences with no effort Eyes- anicteric Neck- no JVD Lungs- clear breath sounds bilaterally no rales/wheezes Heart- regular rhythm; no murmur, normal rate Abdomen- normal bowel sounds, soft, nontender Extremities-lower legs: compression stockings in place left upper extremity: very mild edema and warmth, mild tenderness, no erythema Neuro- alert, oriented x 3; no gross focal deficits Skin- warm & dry Laboratory Results: Last 24 Hours Test 04/19/18 06:35 Prothrombin Time 17.0 SECONDS Prothromb Time International Ratio 1.6 Assessment & Plan DVT LEFT UPPER EXTREMITY (present on admission) per Dr. Kuhn notes: Presented with pain and swelling of left arm. Venous duplex demonstrated extensive thrombosis of left axillary, basilic, and brachial veins. Recent PICC line. History of prior DVT's with documented hypercoagulable condition (Prothrombin Factor II Mutation, 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, borderline hyperhomocystinemia). Patient states that he has been compliant with rivaroxaban. Initially received IV heparin; transitioned to SQ enoxaparin. Transitioning to warfarin in light of rivaroxaban failure. INR 1.6 increase coumadin to 15 mg po daily, discussed with Dr. Sidhu Continue SQ enoxaparin until INR therapeutic for at least 2 consecutive days. pain level about the same will order a ff up US of the left upper Ext increase Percocet dose add Flexeril CHRONIC ULCERS LOWER EXTREMITIES per Dr. Kuhn notes: Chronic venous stasis dermatitis with associated lower extremity ulcers. History of recent MRSA. Treated with course of IV antibiotics via PICC, now with DVT LUE. ID consulted. Wound culture from 04/12 growing: coag neg Staph Staph sp. Pseudomonas aeruginosa resistant to quinolones. on Dapto and Cefepime ( day 8 for dapto, day 5 for cefepime) ID consulted-- recommend to continue IV antibiotics for now, hold off on further antibiotics on discharge, continue close ff up with wound care COPD Continue bronchodilators. PULMONARY NODULE CT demonstrated 4 mm RUL nodule. Smoker. Follow-up CT recommended in 12 months per Fleischner Society recommendations. TOBACCO USE Tobacco cessation counseling. HISTORY MRSA Contact precautions DISPOSITION pending will need ff up with: PCP Wound care, ID Clinic Coumadin Clinic Current Inpatient Medications: Current Inpatient Medications Medications (Trade) Dose Ordered Sig/Ilia Route Start Time Stop Time Status Last Admin Dose Admin Acetaminophen (Tylenol Tab) 650 mg Q4H PRN PO 04/12/18 14:45 05/12/18 14:44 Docusate Sodium (coLACE CAP) 100 mg BID PO 04/12/18 21:00 05/12/18 20:59 04/19/18 07:45 100 MG Folic Acid (Folvite Tab) 1 mg DAILY PO 04/13/18 09:00 05/13/18 08:59 04/19/18 07:45 1 MG Multivitamins/ Minerals (Multivitamin W/ Minerals Tab) 1 tab QAM PO 04/13/18 09:00 05/13/18 08:59 04/19/18 07:46 1 TAB Nicotine (Nicoderm Cq 14MG Patch) 1 patch QAM TD 04/13/18 09:00 05/13/18 08:59 04/19/18 07:45 1 PATCH Zinc Sulfate (Zinc Sulfate Cap) 220 mg QAM PO 04/13/18 09:00 05/13/18 08:59 04/19/18 07:45 220 MG Trazodone HCl (Desyrel Tab) 150 mg HS PO 04/12/18 21:00 05/12/18 20:59 04/18/18 21:20 150 MG Miscellaneous (Remove Nicoderm Patch) 1 ea HS N/A 04/12/18 21:00 05/12/18 20:59 04/18/18 19:51 1 EA Levalbuterol (Xopenex 0.63 Mg/ 3 Ml Neb) 0.63 mg TIDR INH 04/12/18 21:00 05/12/18 20:59 04/19/18 14:19 0.63 MG Morphine Sulfate (MoRPHine SULFATE INJ) 4 mg Q4H PRN IV 04/12/18 15:15 04/26/18 14:44 04/19/18 13:38 4 MG Miscellaneous Information (Order Awaiting Action) 1 ea QS N/A 04/13/18 00:00 05/13/18 00:00 Daptomycin 400 mg/ Syringe 8 ml @ 4 mls/min DAILY@1400 IV 04/13/18 14:00 04/22/18 13:59 04/19/18 15:13 4 MLS/MIN Enoxaparin Sodium (Lovenox Inj) 111 mg Q12 SQ 04/14/18 21:00 05/14/18 20:59 04/19/18 07:48 111 MG Pantoprazole Sodium (Protonix Tab) 40 mg BID PO 04/14/18 21:00 05/12/18 20:59 04/19/18 07:46 40 MG Enteral Nutritional Formula (Boost) 1 can TID PO 04/15/18 17:30 05/15/18 17:29 04/19/18 13:38 1 CAN Cefepime HCl 2000 mg/Syringe 20 ml @ 5 mls/min Q12 IV 04/15/18 21:00 04/25/18 20:59 04/19/18 08:13 5 MLS/MIN Oxycodone/ Acetaminophen (Percocet 7.5-325MG Tab) 1 tab Q6H PRN PO 04/19/18 17:45 05/03/18 17:44 UNV Cyclobenzaprine HCl (Flexeril Tab) 5 mg TID PRN PO 04/19/18 17:45 05/19/18 17:44 UNV Cyclobenzaprine HCl (Flexeril Tab) 5 mg 1744 ONCE PO 04/19/18 17:44 04/19/18 17:45 UNV
--- NOTE | 2018-04-19 21:23 | DIAGNOSTIC IMAGING REPORT ---
ULTRASOUND L VENOUS DOPPLER UPR EXT UNILATERAL CLINICAL HISTORY: Left upper extremity DVT. Follow-up study. COMPARISON STUDY: April 12, 2018 FINDINGS: There is persistent thrombus present within the left brachial and basilic veins. The left internal jugular vein appears patent. The left subclavian and axillary veins appear patent. There is chronic thrombus within the left cephalic vein. The radial and ulnar veins appear patent.. IMPRESSION: Slight improvement in the left upper extremity DVT with persistent occlusive left brachial and basilic vein thrombus. The left axillary vein now appears patent. Electronically signed by: Heriberto Tiwari M.D. 04/19/2018 9:22 PM Dictated Date/Time: 04/19/2018 9:20 PM
[2018-04-19] MEDS: TRAZODONE HCL 50 MG TAB PO SCH (21:53)
[2018-04-19] MEDS: OXYCODONE/ACETAMINOPHEN 7.5-325 TAB PO PRN (22:07)
[2018-04-20] VITALS (7 sets, daily range): BP systolic 125–138; BP diastolic 77–86; PULSE 54–75; TEMP 36.6–36.7; O2SAT 96–98
[2018-04-20] MEDS: MoRPHine SULFATE 2 MG/ML CARP IV PRN ×4 (01:23→20:34)
[2018-04-20] MEDS: OXYCODONE/ACETAMINOPHEN 7.5-325 TAB PO PRN ×3 (06:07→18:11)
[2018-04-20] MEDS: LEVALBUTEROL 0.63MG/3 ML NEB INH SCH ×3 (07:25→18:55)
[2018-04-20 08:13] LABS: INR 1.9 (0.9-1.1)
[2018-04-20] MEDS: CEFEPIME IV 2,000 MG in SYRINGE 7.5 ML IV SCH ×2 (08:51→20:46)
[2018-04-20] MEDS: CEROVITE ADV FORMULA TAB PO SCH (08:52)
[2018-04-20] MEDS: DOCUSATE SODIUM 100 MG CAP PO SCH ×2 (08:52→20:35)
[2018-04-20] MEDS: CYCLOBENZAPRINE HCL 5 MG TAB PO PRN ×2 (08:53→20:35)
[2018-04-20] MEDS: PANTOprazole SOD 40 MG TAB PO SCH ×2 (08:53→20:34)
[2018-04-20] MEDS: ZINC SULFATE 220 MG CAP PO SCH (08:54)
[2018-04-20] MEDS: NICOTINE 14 MG/24 HR TDSY TD SCH (08:55)
[2018-04-20] MEDS: ENOXAPARIN 120 MG/0.8 ML SYR SQ SCH ×2 (08:55→20:36)
[2018-04-20] MEDS: BOOST VANILLA OR BOOST GLUCOSE CONTROL CHOCOLATE PO SCH ×3 (08:56→20:36)
[2018-04-20] MEDS: DAPTOmycin IV 400 MG in SYRINGE 0 ML IV SCH (14:14)
[2018-04-20] MEDS ORDERED: WARFARIN SOD 7.5 MG TAB PO ONE (16:00)
[2018-04-20] MEDS: TRAZODONE HCL 50 MG TAB PO SCH (20:37)
--- NOTE | 2018-04-20 23:45 | Progress Note ---
Medicine Progress Note Date & Time of Visit: Apr 20, 2018 at 23:45. Subjective seen resting in bed, comfortable pain in the upper arm improving no chest pain, dyspnea denies other symptoms Objective Last 8 Hrs Date Time Temp Pulse Resp B/P (MAP) Pulse Ox O2 Delivery O2 Flow Rate FiO2 04/20/18 22:26 36.7 72 16 125/77 (93) 96 Room Air 04/20/18 19:40 Room Air 04/20/18 19:19 71 16 98 Room Air 04/20/18 16:00 Room Air Physical Exam: General- oriented x 3, not in distress, speaks in sentences with no effort Eyes- anicteric Neck- no JVD Lungs- clear breath sounds bilaterally Heart- regular rhythm; no murmur, normal rate Abdomen- normal bowel sounds, soft, nontender Extremities-lower legs: compression stockings in place left upper extremity: no edema and warmth, mild tenderness, no erythema Neuro- alert, oriented x 3; no gross focal deficits Skin- warm & dry Laboratory Results: Last 24 Hours Test 04/20/18 07:28 04/20/18 17:15 Prothrombin Time 19.6 SECONDS 21.0 SECONDS Prothromb Time International Ratio 1.9 2.0 Assessment & Plan DVT LEFT UPPER EXTREMITY (present on admission) per Dr. Kuhn notes: Presented with pain and swelling of left arm. Venous duplex demonstrated extensive thrombosis of left axillary, basilic, and brachial veins. Recent PICC line. History of prior DVT's with documented hypercoagulable condition (Prothrombin Factor II Mutation, 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, borderline hyperhomocystinemia). Patient states that he has been compliant with rivaroxaban. Initially received IV heparin; transitioned to SQ enoxaparin. Transitioning to warfarin in light of rivaroxaban failure. ff up US: improving INR 1.9 coumadin 15 mg po daily, discussed with Dr. Sidhu Continue SQ enoxaparin until INR therapeutic for at least 2 consecutive days. PRN Percocet CHRONIC ULCERS LOWER EXTREMITIES per Dr. Kuhn notes: Chronic venous stasis dermatitis with associated lower extremity ulcers. History of recent MRSA. Treated with course of IV antibiotics via PICC, now with DVT LUE. ID consulted. Wound culture from 04/12 growing: coag neg Staph Staph sp. Pseudomonas aeruginosa resistant to quinolones. on Dapto and Cefepime ( day 9 for dapto, day 6 for cefepime) ID consulted-- recommend to continue IV antibiotics for now, hold off on further antibiotics on discharge, continue close ff up with wound care COPD Continue bronchodilators. PULMONARY NODULE CT demonstrated 4 mm RUL nodule. Smoker. Follow-up CT recommended in 12 months per Fleischner Society recommendations. TOBACCO USE Tobacco cessation counseling. HISTORY MRSA Contact precautions DISPOSITION pending will need ff up with: PCP Wound care, ID Clinic Coumadin Clinic Current Inpatient Medications: Current Inpatient Medications Medications (Trade) Dose Ordered Sig/Ilia Route Start Time Stop Time Status Last Admin Dose Admin Acetaminophen (Tylenol Tab) 650 mg Q4H PRN PO 04/12/18 14:45 05/12/18 14:44 Docusate Sodium (coLACE CAP) 100 mg BID PO 04/12/18 21:00 05/12/18 20:59 04/20/18 20:35 100 MG Folic Acid (Folvite Tab) 1 mg DAILY PO 04/13/18 09:00 05/13/18 08:59 04/20/18 08:53 1 MG Multivitamins/ Minerals (Multivitamin W/ Minerals Tab) 1 tab QAM PO 04/13/18 09:00 05/13/18 08:59 04/20/18 08:52 1 TAB Nicotine (Nicoderm Cq 14MG Patch) 1 patch QAM TD 04/13/18 09:00 05/13/18 08:59 04/20/18 08:55 1 PATCH Zinc Sulfate (Zinc Sulfate Cap) 220 mg QAM PO 04/13/18 09:00 05/13/18 08:59 04/20/18 08:54 220 MG Trazodone HCl (Desyrel Tab) 150 mg HS PO 04/12/18 21:00 05/12/18 20:59 04/20/18 20:37 150 MG Miscellaneous (Remove Nicoderm Patch) 1 ea HS N/A 04/12/18 21:00 05/12/18 20:59 04/20/18 20:35 1 EA Levalbuterol (Xopenex 0.63 Mg/ 3 Ml Neb) 0.63 mg TIDR INH 04/12/18 21:00 05/12/18 20:59 04/20/18 18:55 0.63 MG Morphine Sulfate (MoRPHine SULFATE INJ) 4 mg Q4H PRN IV 04/12/18 15:15 04/26/18 14:44 04/20/18 20:34 4 MG Miscellaneous Information (Order Awaiting Action) 1 ea QS N/A 04/13/18 00:00 05/13/18 00:00 Daptomycin 400 mg/ Syringe 8 ml @ 4 mls/min DAILY@1400 IV 04/13/18 14:00 04/22/18 13:59 04/20/18 14:14 4 MLS/MIN Enoxaparin Sodium (Lovenox Inj) 111 mg Q12 SQ 04/14/18 21:00 05/14/18 20:59 04/20/18 20:36 111 MG Pantoprazole Sodium (Protonix Tab) 40 mg BID PO 04/14/18 21:00 05/12/18 20:59 04/20/18 20:34 40 MG Enteral Nutritional Formula (Boost) 1 can TID PO 04/15/18 17:30 05/15/18 17:29 04/20/18 20:36 1 CAN Cefepime HCl 2000 mg/Syringe 20 ml @ 5 mls/min Q12 IV 04/15/18 21:00 04/25/18 20:59 04/20/18 20:46 5 MLS/MIN Oxycodone/ Acetaminophen (Percocet 7.5-325MG Tab) 1 tab Q6H PRN PO 04/19/18 17:45 05/03/18 17:44 04/20/18 18:11 1 TAB Cyclobenzaprine HCl (Flexeril Tab) 5 mg TID PRN PO 04/19/18 17:45 05/19/18 17:44 04/20/18 20:35 5 MG
[2018-04-21 07:22] VITALS: BP 123/83; PULSE 76; TEMP 36.9; O2SAT 96
[2018-04-21] MEDS: LEVALBUTEROL 0.63MG/3 ML NEB INH SCH (07:26)
[2018-04-21 07:27] VITALS: PULSE 63; O2SAT 95
[2018-04-21] MEDS: CEROVITE ADV FORMULA TAB PO SCH (07:32)
[2018-04-21] MEDS: DOCUSATE SODIUM 100 MG CAP PO SCH (07:32)
[2018-04-21] MEDS: PANTOprazole SOD 40 MG TAB PO SCH (07:32)
[2018-04-21] MEDS: ZINC SULFATE 220 MG CAP PO SCH (07:33)
[2018-04-21] MEDS: NICOTINE 14 MG/24 HR TDSY TD SCH (07:33)
[2018-04-21] MEDS: ENOXAPARIN 120 MG/0.8 ML SYR SQ SCH (07:34)
[2018-04-21] MEDS: MoRPHine SULFATE 2 MG/ML CARP IV PRN ×2 (07:42→15:24)
[2018-04-21] MEDS: BOOST VANILLA OR BOOST GLUCOSE CONTROL CHOCOLATE PO SCH ×2 (07:51→14:00)
[2018-04-21] MEDS: CYCLOBENZAPRINE HCL 5 MG TAB PO PRN (07:51)
[2018-04-21 08:20] LABS: INR 2.3 (0.9-1.1)
[2018-04-21 08:50] LABS: CREATININE 0.81 mg/dl (0.60-1.40)
[2018-04-21] MEDS: OXYCODONE/ACETAMINOPHEN 7.5-325 TAB PO PRN (10:09)
[2018-04-21] MEDS: CEFEPIME IV 2,000 MG in SYRINGE 7.5 ML IV SCH (10:09)
[2018-04-21] MEDS: DAPTOmycin IV 400 MG in SYRINGE 0 ML IV SCH (14:00)
--- NOTE | 2018-04-21 14:17 | Progress Note ---
Medicine Progress Note Date & Time of Visit: Apr 21, 2018 at 14:08. Subjective seen resting in bed comfortable watching TV states he feels ok overall left arm pain improving denies chest pain,dyspnea no leg pain no other symptoms states he is ready, would like to be discharged today Objective Last 8 Hrs Date Time Temp Pulse Resp B/P (MAP) Pulse Ox O2 Delivery O2 Flow Rate FiO2 04/21/18 07:45 Room Air 04/21/18 07:27 63 17 95 Room Air 04/21/18 07:22 36.9 76 20 123/83 (96) 96 Room Air Physical Exam: General- oriented x 3, not in distress, speaks in sentences with no effort Eyes- anicteric Neck- no JVD Lungs- clear breath sounds bilaterally no rales/wheezing Heart- regular rhythm; no murmur, normal rate Abdomen- normal bowel sounds, soft, nontender Extremities-lower legs: wounds improving- no signs of infection, healing better left upper extremity: no edema and warmth, mild tenderness, no erythema Neuro- alert, oriented x 3; no gross focal deficits Skin- warm & dry Laboratory Results: Last 24 Hours Test 04/20/18 17:15 04/21/18 07:54 Prothrombin Time 21.0 SECONDS 23.4 SECONDS Prothromb Time International Ratio 2.0 2.3 Creatinine 0.81 mg/dl Est Creatinine Clear Calc Drug Dose 142.9 ml/min Estimated GFR () 126.2 Estimated GFR (Non- 108.9 Assessment & Plan DVT LEFT UPPER EXTREMITY (present on admission) per Dr. Kuhn notes: Presented with pain and swelling of left arm. Venous duplex demonstrated extensive thrombosis of left axillary, basilic, and brachial veins. Recent PICC line. History of prior DVT's with documented hypercoagulable condition (Prothrombin Factor II Mutation, 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, borderline hyperhomocystinemia). Patient states that he has been compliant with rivaroxaban. Initially received IV heparin; transitioned to SQ enoxaparin. Transitioning to warfarin in light of rivaroxaban failure. ff up US: improving INR 2.3 coumadin 15 mg po today and 10mg po tomorrow, ff up with Coumadin clinic on Monday lovenox this evening and tomorrow, then stop discussed with Dr. Sidhu discussed with patient re: importance of following up closely with coumadin clinic as doing otherwise may predispose him to further DVTs/PE, he verbalized understanding CHRONIC ULCERS LOWER EXTREMITIES per Dr. Kuhn notes: Chronic venous stasis dermatitis with associated lower extremity ulcers. History of recent MRSA. Treated with course of IV antibiotics via PICC, now with DVT LUE. ID consulted. Wound culture from 04/12 growing: coag neg Staph Staph sp. Pseudomonas aeruginosa resistant to quinolones. on Dapto and Cefepime ( day 10 for dapto, day 7 for cefepime) ID consulted Dr. Acevedo, recommend to continue IV antibiotics for now, hold off on further antibiotics on discharge, continue close ff up with wound care ff up with [facility] this week COPD stable Continue bronchodilators. PULMONARY NODULE CT demonstrated 4 mm RUL nodule. Smoker. Follow-up CT recommended in 12 months per Fleischner Society recommendations. TOBACCO USE Tobacco cessation counseling. HISTORY MRSA Contact precautions DISPOSITION d/c home ff up: PCP in 3-5 days Wound care, ID Clinic this coming Coumadin Clinic Monday04/23/18 Current Inpatient Medications: Current Inpatient Medications Medications (Trade) Dose Ordered Sig/Ilia Route Start Time Stop Time Status Last Admin Dose Admin Acetaminophen (Tylenol Tab) 650 mg Q4H PRN PO 04/12/18 14:45 05/12/18 14:44 Docusate Sodium (coLACE CAP) 100 mg BID PO 04/12/18 21:00 05/12/18 20:59 04/21/18 07:32 100 MG Folic Acid (Folvite Tab) 1 mg DAILY PO 04/13/18 09:00 05/13/18 08:59 04/21/18 07:33 1 MG Multivitamins/ Minerals (Multivitamin W/ Minerals Tab) 1 tab QAM PO 04/13/18 09:00 05/13/18 08:59 04/21/18 07:32 1 TAB Nicotine (Nicoderm Cq 14MG Patch) 1 patch QAM TD 04/13/18 09:00 05/13/18 08:59 04/21/18 07:33 1 PATCH Zinc Sulfate (Zinc Sulfate Cap) 220 mg QAM PO 04/13/18 09:00 05/13/18 08:59 04/21/18 07:33 220 MG Trazodone HCl (Desyrel Tab) 150 mg HS PO 04/12/18 21:00 9/15/18 20:59 04/20/18 20:37 150 MG Miscellaneous (Remove Nicoderm Patch) 1 ea HS N/A 04/12/18 21:00 05/12/18 20:59 04/20/18 20:35 1 EA Levalbuterol (Xopenex 0.63 Mg/ 3 Ml Neb) 0.63 mg TIDR INH 04/12/18 21:00 05/12/18 20:59 04/21/18 07:26 0.63 MG Morphine Sulfate (MoRPHine SULFATE INJ) 4 mg Q4H PRN IV 04/12/18 15:15 04/26/18 14:44 04/21/18 07:42 4 MG Miscellaneous Information (Order Awaiting Action) 1 ea QS N/A 04/13/18 00:00 05/13/18 00:00 Daptomycin 400 mg/ Syringe 8 ml @ 4 mls/min DAILY@1400 IV 04/13/18 14:00 04/22/18 13:59 04/20/18 14:14 4 MLS/MIN Enoxaparin Sodium (Lovenox Inj) 111 mg Q12 SQ 04/14/18 21:00 05/14/18 20:59 04/21/18 07:34 111 MG Pantoprazole Sodium (Protonix Tab) 40 mg BID PO 04/14/18 21:00 05/12/18 20:59 04/21/18 07:32 40 MG Enteral Nutritional Formula (Boost) 1 can TID PO 04/15/18 17:30 05/15/18 17:29 04/21/18 07:51 1 CAN Cefepime HCl 2000 mg/Syringe 20 ml @ 5 mls/min Q12 IV 04/15/18 21:00 04/25/18 20:59 04/21/18 10:09 5 MLS/MIN Oxycodone/ Acetaminophen (Percocet 7.5-325MG Tab) 1 tab Q6H PRN PO 04/19/18 17:45 05/03/18 17:44 04/21/18 10:09 1 TAB Cyclobenzaprine HCl (Flexeril Tab) 5 mg TID PRN PO 04/19/18 17:45 05/19/18 17:44 04/21/18 07:51 5 MG Warfarin Sodium (Coumadin Tab) 15 mg ONE PO 04/21/18 16:00 05/21/18 15:59 UNV
[2018-04-21] MEDS ORDERED: OXYC-57 PO (14:26)
[2018-04-21] MEDS ORDERED: NICO14DI5 TD (14:26)
[2018-04-21] MEDS ORDERED: CMD5 PO (14:26)
[2018-04-21] MEDS ORDERED: LVNIS120 SQ (14:26)
--- NOTE | 2018-04-21 14:32 | Discharge Instructions ---
Discharge Instructions Date of Service Apr 21, 2018. Admission Reason for Admission: Deep Vein Thrombosis (Dvt) Discharge Discharge Diagnosis / Problem: DEEP VENOUS THROMBOSIS LEFT UPPER ARM Discharge Goals Goal(s): Diagnostic testing, Therapeutic intervention Activity Recommendations Activity Limitations: as noted below (NO LIFTIN UNTIL FOLLOW UP WITH PRIMARY CARE PHYSICIAN) Lifting Limitations: until after follow-up appointment Exercise/Sports Limitations: until after follow-up appointment Driving or Machine Use: NO DRIVING/OPERATING MACHINERIES UNTIL FOLLOW UP WITH PRIMARY CARE PHYSICIAN, NO DRIVING/OPERATING MACHINERIES WHILE TAKING PERCOCET . Instructions / Follow-Up Instructions / Follow-Up PLEASE REVIEW YOUR NEW MEDICATION LIST AND FOLLOW INSTRUCTIONS CAREFULLY. CALL YOUR PRIMARY CARE PHYSICIAN OR RETURN TO THE ER IMMEDIATELY IF WITH RECURRENCE/WORSENING OF SYMPTOMS, INCREASING ARM OR LEG PAIN/SWELLING/REDNESS, CHEST PAIN, SHORTNESS OF BREATH. FOLLOW UP WITH YOUR PRIMARY CARE PHYSICIAN IN 3-5 DAYS. FOLLOW UP WITH WOUND CARE CENTER/INFECTIOUS DISEASE CLINIC IN [facility] THIS COMING WEEK. FOLLOW UP WITH [facility] ON MONDAY. THE CLINIC WILL CALL YOU FOR APPOINTMENT. Current Hospital Diet Patient's current hospital diet: Regular Diet Discharge Diet Recommended Diet: Regular Diet Procedures Procedures Performed: CHEST CT SCAN, LEFT UPPER ARM ULTRASOUND Pending Studies Studies pending at discharge: yes List of pending studies: BLOOD WORK TO DETERMINE COUMADIN DOSE C/O [facility] Medical Emergencies . Who to Call and When: Medical Emergencies: If at any time you feel your situation is an emergency, please call 911 immediately. . Non-Emergent Contact Non-Emergency issues call your: Primary Care Provider Call Non-Emergent contact if: you have a fever, your pain is not controlled, your pain is worsening, your pain is unusual for you, wound has increased drainage, wound has increased redness, wound has increased pain, you have any medication questions . . "Provider Documentation" section prepared by Juan Francisco Verduzco. .
--- NOTE | 2018-04-21 14:37 | Discharge Summary ---
Discharge Summary Date of Service Apr 21, 2018. Discharge Summary Admission Date: Apr 12, 2018 at 14:44 Discharge Date: Apr 21, 2018 Discharge Disposition: Home Principal Diagnosis: DVT LEFT UPPER EXTREMITY (present on admission) Secondary Diagnoses/Problems: Please refer to hospital course below. Procedures: L VENOUS DOPPLER UPR EXT UNIL HISTORY: Pain. Edema. LUE red and painful COMPARISON STUDY: None. FINDINGS: Study is positive for thrombus within the left axilla, basilic, and brachial veins. Occlusive thrombus is identified within the basilic and brachial veins. Subclavian vein is patent but is small in terms of overall caliber. IMPRESSION: Extensive acute deep venous thrombosis. The above report was generated using voice recognition software. It may contain grammatical, syntax or spelling errors. Electronically signed by: Aleksandr Mistry M.D. 04/12/2018 11:52 AM Dictated Date/Time: 04/12/2018 11:51 AM (CHEST FOR PE) ANGIO WITH CLINICAL HISTORY: 42 years-old Male presenting with ^extensive dvt LUE w/ SOb. TECHNIQUE: Multidetector CT angiography of the chest was performed after administration of intravenous contrast. 3-D volumetric and/or maximum intensity projection (MIP) images were subsequently reconstructed for review. IV contrast: 92 mL of Optiray 320. A dose lowering technique was used consistent with the principles of ALARA (as low as reasonably achievable). COMPARISON: None. CT DOSE (mGy.cm): The estimated cumulative dose is 544.20 mGycm. 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 Pulmonary vasculature: The study is suboptimal for the assessment of the pulmonary vascular tree secondary to timing of the contrast bolus and respiratory motion artifact. Allowing for limited image quality, no central filling defect to suggest pulmonary embolus. Main pulmonary artery is not enlarged. No flattening of the interventricular septum. No intracardiac filling defect. No reflux of contrast into the hepatic veins. Remaining chest: On soft tissue windows, normal thyroid and thoracic inlet. Bilateral gynecomastia. No axillary, supraclavicular, hilar, or mediastinal lymphadenopathy. Normal aorta. Normal heart size. No pericardial or pleural effusion. Hepatic steatosis. On lung windows, diffuse added density of the lungs. Mosaic attenuation may suggest small airways disease. Solid 4 mm nodule in the periphery of the right upper lobe (series 4 image 194). Punctate solid peripheral right middle lobe nodule (series 4 image 107). Nodularity at the right lung base may relate to atelectasis. Central airways patent bronchial wall thickening noted. No pneumothorax. On bone windows, normal osseous structures. IMPRESSION: 1. Allowing for suboptimal image quality, no evidence of pulmonary embolus. 2. Findings suggest reactive airways disease or viral bronchiolitis. No focal infiltrate to suggest pneumonia. 3. Solid 4 mm right upper lobe nodule. Follow-up per Anthony Society 2017 recommendations below. Please refer to below summary of Fleischner Society 2017 recommendations for follow-up of incidental CT nodules (H Juan et al. Guidelines for management of incidental pulmonary nodules detected on CT images: From the Fleischner Society 2017. Radiology 2017; 284: 228-243.) SOLID NODULES Single nodule; size < 6 mm * Low risk patients: No routine follow-up * High risk patients: Optional CT at 12 months Single nodule; size 6-8 mm * Low risk patients: CT at 6-12 months, then consider CT at 18-24 months * High risk patients: CT at 6-12 months, then at 18-24 months Single nodule; size > 8 mm * Either low or high risk patients: Considered CT at 3 months, PET/CT, or tissue sampling Multiple nodules; size < 6 mm * Low risk patients: No routine follow up * High risk patients: Optional CT at 12 months Multiple nodules; size 6-8 mm * Low risk patients: CT at 3-6 months, then consider CT at 18-24 months * High risk patients: CT at 3-6 months, then at 18-24 months Multiple nodules; size > 8 mm * Low risk patients: CT at 3-6 months, then consider at 18-24 months * High risk patients: CT at 3-6 months, then at 18-24 months SUBSOLID NODULES Single ground-glass nodule * Nodule size < 6 mm: No routine follow-up * Nodule size > or = 6 mm: CT at 6-12 months to confirm persistence, then CT every 2 years until 5 years Single part-solid nodule * Nodule size < 6 mm: No routine follow-up * Nodules size > or = 6 mm: CT at 3-6 months to confirm persistence. If unchanged and solid component remains < 6 mm, annual CT should be performed for 5 years Multiple nodules * Nodule size < 6 mm: CT at 3-6 months. If stable, consider CT at 2 and 4 years. * Nodules size > or = 6 mm: CT at 3-6 months. Subsequent management based on the most suspicious nodule(s) NOTE: 1) These guidelines apply to incidental nodules. These guidelines do NOT apply to patients younger than 35 years, immunocompromised patients, or patients with cancer. 2) Risk categories: * Low risk patients: Minimal or absent history of smoking and/or other known risk factors * High risk patients: History of smoking, exposure to other carcinogens, emphysema, fibrosis, upper lobe location, family history of lung cancer, etc. 3) If a nodule up to 8 mm is partly solid or is ground glass, further follow-up is required after 24 months to exclude possible slow growing adenocarcinoma. Electronically signed by: Antoni Rod M.D. 04/12/2018 1:06 PM ULTRASOUND L VENOUS DOPPLER UPR EXT UNILATERAL CLINICAL HISTORY: Left upper extremity DVT. Follow-up study. COMPARISON STUDY: April 12, 2018 FINDINGS: There is persistent thrombus present within the left brachial and basilic veins. The left internal jugular vein appears patent. The left subclavian and axillary veins appear patent. There is chronic thrombus within the left cephalic vein. The radial and ulnar veins appear patent.. IMPRESSION: Slight improvement in the left upper extremity DVT with persistent occlusive left brachial and basilic vein thrombus. The left axillary vein now appears patent. Electronically signed by: Heriberto Tiwari M.D. 04/19/2018 9:22 PM Dictated Date/Time: 04/19/2018 9:20 PM Consultations: Infectious Disease, Vascular Surgery Pending Studies/Follow-Up: Please refer to hospital course below. Medication Reconciliation New Medications: Warfarin Sod (Coumadin) 5 Mg Tab 1 TAB PO UD for 30 Days, #61 TAB 0 Refills take 3 tabs today (04/21/18) at 400pm, then starting tomorrow (04/22/18) take 2 tabs po daily at 400pm; further instructions per Coumadin Clinic Enoxaparin (Lovenox) 120 Mg/0.8 Ml Inj 111 MG SQ Q12 for 1 Day, #2 UNIT 0 Refills use this evening at 730pm 04/21/18 and tomorrow morning at 730am 04/22/18 Changed Medications: Oxycodone/Acetaminophen 5MG/325MG (Percocet 5MG/325MG) Tab 1 TABLET PO Q6H PRN for Pain, #10 TAB 0 Refills (Changed from: Refills: ; PAIN) severe pain Continued Medications: Albuterol Hfa (Ventolin Hfa) 200 Puffs/37043 Mcg Aers 2 PUFFS INH Q6H PRN for SOB/Wheezing, INHALER Docusate Sodium (Colace) 100 Mg Cap 100 MG PO BID for 30 Days, #60 CAP Fluticasone Furoate-Vilanterol (Breo Ellipta) 1 Inh Inh 200 MCG INH QAM Folic Acid (Folic Acid) 1 Mg Tab 1 MG PO DAILY, TAB Multivitamins/Minerals (Certavite/Antioxidants) 1 Tab Tab 1 TAB PO QAM for 30 Days, #30 TAB Nicotine (Nicoderm Cq 14MG Patch) 14 Mg/24 Hr Dis 1 PATCH TD QAM for 7 Days, #7 PATCH 0 Refills (This prescription has been renewed) Omeprazole (Prilosec) 20 Mg Capcr 20 MG PO BID, CAP Trazodone HCl (Trazodone HCl) 150 Mg Tab 1 TAB PO HS for Sleep, #10 TABS Zinc Sulfate (Zinc Sulfate) 220 Mg Cap 220 MG PO QAM for 30 Days, #30 CAP Discontinued Medications: Rivaroxaban (Xarelto) 20 Mg Tab 1 TAB PO HS for 30 Days, #30 TAB 5 Refills Admission Information HPI (per Admitting provider): This is a 42 year old male with significant PMH of hypercoagulable state, hx of chronic nonocclusive b/l LE DVT, PVD with chronic b/l lower extremity wounds, venous stasis dermatitis/ulcerations, Asthma, Gerd, hx of MRSA, hx of ETOH abuse , hx of chronic narcotic use, chronic pain syndrome, tobacco abuse, depression who presents to [facility] for left arm pain 1 day and bilateral lower extremity cellulitis. Patient recently hospitalized [facility] from 02/28/18 through 03/06/18 secondary to chronic bilateral lower extremity wounds with cellulitis. Infectious disease was on board and was discharged with IV daptomycin 400 mg daily and Cipro 750 mg twice daily. He was discharged to [facility] with PICC in [facility] for IV antibiotics x 2 weeks. Discharged from on 03/20/18, PICC then removed. Since discharge he has not followed up with wound care. Was dressing wounds himself. Currently not taking any antibiotic therapy. 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 Over the past 2 weeks has been having increased swelling, redness and pain in lower extremities in which he states, "I know this is when they are infected." Further he had acute onset of left upper extremity pain beginning last evening, constant, progressively getting worse, 8/10, associated with swelling, redness of the elbow. Takes Percocet chronically for pain in which did not help. He has history of chronic DVT and hypercoagulable state in which he has been off and on Xarelto for 2 years. He was transitioned from Coumadin to Xarelto secondary to DUI and unable to get lab draws. Admits to taking medication routinely, but missed last nights dose. He denies f/c/s, dizziness, lightheaded, chest pain, palpitations, hemoptysis, SOB, VARMA, n/v/d, abdominal pain . Overall decreased appetite past 1.5 days, has not ate anything. In ED cbc, bmp mostly unremarkable, except elevated blood glucose at 131. CT negative for PE, +for reactive airway disease and R lung nodule 4mm. LUE U/S positive for DVT in left axilla with extensive occlusive DVT in brachial and basilic veins. Patient initiated on heparin bolus with gtt and is being admitted for further management of extensive DVT and b/l lower extremity wounds with probable cellulitis. Physical Exam (per Admitting): General Appearance: WD/WN, no apparent distress, + obese Head: normocephalic, atraumatic Eyes: normal inspection, sclerae normal ENT: normal ENT inspection, hearing grossly normal, + pertinent finding ( mucous membranes moist) Neck: supple, no adenopathy, no carotid bruits Respiratory/Chest: chest non-tender, lungs clear, normal breath sounds, no respiratory distress, no accessory muscle use, + wheezing (inspiratory/ expiratory with prolonged phase) Cardiovascular: regular rate, rhythm, no gallop, no JVD, no murmur Abdomen/GI: normal bowel sounds, non tender, soft, + distended (secondary to obesity) Back: normal inspection, no muscle spasm Extremities/Musculoskelatal: + swelling (LUE proximal edema, warmth medially , no redness, pain to palpation medical; b/l lower extremity woody edema with venous stasis dermatitis and multiple lower extremity venous ulcerations with b/ l feet erythema.) Neurologic/Psych: alert, normal mood/affect, oriented x 3 Skin: normal color, warm/dry Hospital Course DVT LEFT UPPER EXTREMITY (present on admission) per Dr. Kuhn notes: Presented with pain and swelling of left arm. Venous duplex demonstrated extensive thrombosis of left axillary, basilic, and brachial veins. Recent PICC line. History of prior DVT's with documented hypercoagulable condition (Prothrombin Factor II Mutation, 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, borderline hyperhomocystinemia). Patient states that he has been compliant with rivaroxaban. Initially received IV heparin; transitioned to SQ enoxaparin q12h Transitioned to warfarin in light of rivaroxaban failure. INR gradually increased, 2.3 on day of discharge 04/21/18 coumadin 15 mg po 04/21/18 and 10mg po the next days, ff up with [facility] on Monday for further coumadin dose titrations lovenox this evening 04/21/18 and tomorrow 04/22/18, then stop discussed with Dr. Sidhu- Development Professional discussed with patient re: importance of following up closely with coumadin clinic as doing otherwise may predispose him to further DVTs/PE, he verbalized understanding CHRONIC ULCERS LOWER EXTREMITIES per Dr. Kuhn notes: Chronic venous stasis dermatitis with associated lower extremity ulcers. History of recent MRSA. Treated with course of IV antibiotics via PICC, now with DVT LUE. ID consulted. Wound culture from 04/12 growing: coag neg Staph Staph sp. Pseudomonas aeruginosa resistant to quinolones. on Dapto and Cefepime ( day 10 for dapto, day 7 for cefepime) ID consulted Dr. Acevedo, recommend to continue IV antibiotics for now, hold off on further antibiotics on discharge, continue close ff up with wound care ff up with ID[facility]ound Care Ctr this week COPD stable Continue bronchodilators. PULMONARY NODULE CT demonstrated 4 mm RUL nodule. (based on CT chest- full report noted in procedure section above) Smoker. Follow-up CT recommended in 12 months per Fleischner Society recommendations. TOBACCO USE Tobacco cessation counseling. Nicotine patch. HISTORY MRSA Contact precautions DISPOSITION d/c home ff up: PCP in 3-5 days Wound care, ID Clinic this coming week Coumadin Clinic Monday04/23/18 Total time spent on discharge = 45 minutes This includes examination of the patient, discharge planning, medication reconciliation, and communication with other providers. Discharge Instructions Discharge Instructions Date of Service Apr 21, 2018. Admission Reason for Admission: Deep Vein Thrombosis (Dvt) Discharge Discharge Diagnosis / Problem: DEEP VENOUS THROMBOSIS LEFT UPPER ARM Discharge Goals Goal(s): Diagnostic testing, Therapeutic intervention Activity Recommendations Activity Limitations: as noted below (NO LIFTIN UNTIL FOLLOW UP WITH PRIMARY CARE PHYSICIAN) Lifting Limitations: until after follow-up appointment Exercise/Sports Limitations: until after follow-up appointment Driving or Machine Use: NO DRIVING/OPERATING MACHINERIES UNTIL FOLLOW UP WITH PRIMARY CARE PHYSICIAN, NO DRIVING/OPERATING MACHINERIES WHILE TAKING PERCOCET . Instructions / Follow-Up Instructions / Follow-Up PLEASE REVIEW YOUR NEW MEDICATION LIST AND FOLLOW INSTRUCTIONS CAREFULLY. CALL YOUR PRIMARY CARE PHYSICIAN OR RETURN TO THE ER IMMEDIATELY IF WITH RECURRENCE/WORSENING OF SYMPTOMS, INCREASING ARM OR LEG PAIN/SWELLING/REDNESS, CHEST PAIN, SHORTNESS OF BREATH. FOLLOW UP WITH YOUR PRIMARY CARE PHYSICIAN IN 3-5 DAYS. FOLLOW UP WITH WOUND CARE CENTER/INFECTIOUS DISEASE CLINIC IN [facility] THIS . FOLLOW UP WITH [facility] ON MONDAY. THE CLINIC WILL CALL YOU FOR APPOINTMENT. Current Hospital Diet Patient's current hospital diet: Regular Diet Discharge Diet Recommended Diet: Regular Diet Procedures Procedures Performed: CHEST CT SCAN, LEFT UPPER ARM ULTRASOUND Pending Studies Studies pending at discharge: yes List of pending studies: BLOOD WORK TO DETERMINE COUMADIN DOSE C/O [facility] Medical Emergencies . Who to Call and When: Medical Emergencies: If at any time you feel your situation is an emergency, please call 911 immediately. . Non-Emergent Contact Non-Emergency issues call your: Primary Care Provider Call Non-Emergent contact if: you have a fever, your pain is not controlled, your pain is worsening, your pain is unusual for you, wound has increased drainage, wound has increased redness, wound has increased pain, you have any medication questions . . "Provider Documentation" section prepared by Juan Francisco Verduzco. .
[2018-04-21 14:39] VITALS: BP 133/80; PULSE 78; TEMP 36.4; O2SAT 97
[2018-04-21 15:04] VITALS: BP 133/80; PULSE 78; TEMP 36.4; O2SAT 97
[2018-04-21] MEDS ORDERED: WARFARIN SOD 10 MG TAB PO SCH (16:00)
== END 2018-04-21 15:40 | disposition home or self-care (01) | DRG 300 ==
LOC: C.EDB 10:24 → C.MS2W 14:44 → EDBEDREQ 14:55 → ENRESERV 15:20
PROVIDERS: ADMIT Internal Medicine; ATTEND Internal Medicine
DX: I82.A12 Acute embolism and thrombosis of left axillary vein (principal); I83.219 Varicose veins of right lower extremity with both ulcer of unspecified site and inflammation; I83.229 Varicose veins of left lower extremity with both ulcer of unspecified site and inflammation; L97.211 Non-pressure chronic ulcer of right calf limited to breakdown of skin; L97.221 Non-pressure chronic ulcer of left calf limited to breakdown of skin; L03.115 Cellulitis of right lower limb; L03.116 Cellulitis of left lower limb; J45.901 Unspecified asthma with (acute) exacerbation; D68.52 Prothrombin gene mutation; I82.622 Acute embolism and thrombosis of deep veins of left upper extremity; I82.612 Acute embolism and thrombosis of superficial veins of left upper extremity; I73.9 Peripheral vascular disease, unspecified; B95.62 Methicillin resistant Staphylococcus aureus infection as the cause of diseases classified elsewhere; B96.5 Pseudomonas (aeruginosa) (mallei) (pseudomallei) as the cause of diseases classified elsewhere; Z16.23 Resistance to quinolones and fluoroquinolones; R91.1 Solitary pulmonary nodule; I10 Essential (primary) hypertension; K21.9 Gastro-esophageal reflux disease without esophagitis; F17.200 Nicotine dependence, unspecified, uncomplicated; G89.29 Other chronic pain; F32.9 Major depressive disorder, single episode, unspecified; Z86.718 Personal history of other venous thrombosis and embolism; Z86.14 Personal history of Methicillin resistant Staphylococcus aureus infection; Z79.01 Long term (current) use of anticoagulants; Z79.51 Long term (current) use of inhaled steroids; Z79.891 Long term (current) use of opiate analgesic; Z79.899 Other long term (current) drug therapy; Z88.2 Allergy status to sulfonamides; Z91.013 Allergy to seafood; Z91.018 Allergy to other foods; Z83.2 Family history of diseases of the blood and blood-forming organs and certain disorders involving the immune mechanism

== ENCOUNTER 2018-10-18 09:23 | Inpatient (IN) ==
[2018-10-18] MEDS ORDERED: MoRPHine SULFATE 4 MG/ML 1 ML CARP\\VIAL IV STA ×2 (09:47→11:50)
[2018-10-18] MEDS ORDERED: SODIUM CHLORIDE 0.9% 1000ML 500 ML IV ONE (09:47)
--- NOTE | 2018-10-18 10:30 | XRay Report ---
SINGLE VIEW CHEST CLINICAL HISTORY: Sepsis. FINDINGS: An AP, portable, upright chest radiograph is compared to study dated 07/06/2018 and correlat ed with chest CT dated 04/12/2018. The examination is degraded by portable technique and patient rotat ion. The heart is top normal for projection. The mediastinal contour is within normal limits. There is mild bibasilar atelectasis. The lungs and pleural spaces are otherwise clear. No pneumothorax is s een. The bony thorax is grossly intact. IMPRESSION: No active disease in the chest. Electronically signed by: Emil Morelos M.D. 10/18/2018 10:29 AM
[2018-10-18 10:36] LABS: Basophils # (auto) 0.02 K/uL (0-0.2); Basophils % (auto) 0.4 %; Eosinophils # (auto) 0.08 K/uL (0-0.5); Eosinophils % (auto) 1.6 %; Hemoglobin 14.7 g/dL (14.0-18.0); Immature Granulocytes # (auto) 0.01 K/uL (0.00-0.02); Immature Granulocytes % (auto) 0.2 %; Lymphocytes # (auto) 0.88 K/uL (1.2-3.4); Lymphocytes % (auto) 17.6 %; Mean Corpuscular Hgb Conc 33.4 g/dL (32-36); Mean Corpuscular Volume 87.8 fL (80-100); Monocytes # (auto) 0.28 K/uL (0.11-0.59); Monocytes % (auto) 5.6 %; Neutrophils # (auto) 3.73 K/uL (1.4-6.5); Neutrophils % (auto) 74.6 %; Platelet Count 182 K/uL (130-400); RDW Coefficient of Variation 17.6 % (11.5-14.5); RDW Standard Deviation 56.3 fL (36.4-46.3); Red Blood Count 5.01 M/uL (4.7-6.1)
[2018-10-18] MEDS ORDERED: DAPTOmycin 350 MG in SYRINGE 0 ML IV ONE (10:38)
[2018-10-18] MEDS ORDERED: VANCOMYCIN CONSULT ACTIVE PRN (10:38)
[2018-10-18] MEDS ORDERED: VANCOMYCIN HCL 2,250 MG in SODIUM CHLORIDE 0.9% 500 ML IV ONE (10:38)
[2018-10-18 10:47] LABS: Partial Thromboplastin Ratio 1.2; Partial Thromboplastin Time 32.5 Seconds (21.0-31.0); Prothrombin Time 19.1 Seconds (9.0-12.0)
[2018-10-18 11:13] LABS: Albumin Level 3.9 gm/dl (3.4-5.0); BUN Creatinine Ratio 8.4 (10-20); Calcium 9.2 mg/dl (8.5-10.1); Creatinine Clr Calc Pharmacy 137.9 ml/min; Est GFR (African American) 122.8; Potassium 3.9 mmol/L (3.5-5.1)
[2018-10-18 11:16] LABS: Albumin Globulin Ratio 0.7 (0.9-2); Bilirubin,Total 0.5 mg/dl (0.2-1); Globulin 5.3 gm/dl (2.5-4.0); Total Protein 9.2 gm/dl (6.4-8.2)
--- NOTE | 2018-10-18 12:42 | History & Physical Report ---
Date of Service October 18, 2018 Assessment & Plan (1) Bilateral cellulitis of lower leg: Recurrent issue for patient - old records from prior admissions reviewed. Suppressive therapy discussed by ID during last admission but to be determined after pt completed course of IV antibiotics. Does not appear this was followed up as outpatient. - For now, starting empiric daptomycin and ertapenem based on prior culture results - May need to consider ID consult again this admission but will hold off for now pending clinical course/culture results Present on Admission?: Yes (2) Chronic ulcer of lower extremity: - Consult wound care nurse for recommendations - Wound cultures collected by ED - will f/u results once available Present on Admission?: Yes (3) Chronic venous stasis dermatitis of both lower extremities: Present on Admission?: Yes (4) Type 2 diabetes mellitus: - A1c checked in 01.31 as outpatient - Hold Metformin while admitted - Insulin Sliding Scale - may need basal Lantus pending but will monitor BSG for now - Diabetic diet - BSG ACHS Present on Admission?: Yes (5) GERD (gastroesophageal reflux disease): - Continue outpatient PPI therapy (6) COPD (chronic obstructive pulmonary disease): - Continue Advair for maintenance - per pt, respiratory status at baseline. CXR negative - PRN albuterol nebs Present on Admission?: Yes (7) Tobacco abuse: - Smoking cessation counseling - Nicotine patch ordered Present on Admission?: Yes (8) Hypercoagulable state: On chronic anticoagulation - INR therapeutic on admission - Continue home warfarin dosing/monitor daily INR Present on Admission?: Yes (9) Chronic deep vein thrombosis (DVT): Pt on chronic anticoagulation with warfarin - INR today is 2.0. Venous duplex from last month showed no sonographic evidence of acute deep venous thrombosis identified in the right or left lower extremity but chronic thrombus/ scarring within the lower extremities bilaterally from the common femoral vein to the popliteal vein. - Will defer repeat duplex since INR currently therapeutic and findings stable on study last month - Continue warfarin at home doing - monitor INR daily Present on Admission?: Yes Plan: Plan - Jeannette Perez PA-C: Pt reviewed with collaborating physician, Dr. Azul. Plan of care discussed and as outlined above. Pt will be followed by Dr. Wilkins starting tomorrow. Champ Perez PA-C History of Present Illness Primary Care Provider: PCP - Gareth Lin MD 43 y/o male with a past medical history of recurrent LE cellulitis, venous insufficiency, chronic leg ulcers, DM II, COPD, hypercoagulable state - prothromin factor II mutation, chronic nonocclusive BLE DVT, GERD, tobacco use, chronic narcotic use, depression, and h/o MRSA who presents to the ED today with two days of worsening LE edema and pain c/w with prior episodes of LE cellulitis. Pt has been admitted multiple times to this facility for similar symptoms over the past three months including: Hospitalized 07/06-07/13/18 for bilateral LE cellulitis was discharged to [facility] on ertapenem and daptomycin. 07/31-08/01/18 - ID didn't think active infection at that time, but chronic venous stasis changes, had supratherapuetic INR. 08/16-08/20/18 for BLE cellulitis, initially treated with zosyn & vancomycin then transitioned to dapto and ertapenem and discharged on cefdinir 300mg BID and zyvox 600mg BID x 10 days. 09/05-09/10/18 - recurrent LE cellulitis, treated with daptomycin and ertapenem, discharged to [facility] with midline for additional two weeks of IV abx. Culture grew E. coli. Pt reports he initially did well once home after stay at [facility]. Did follow-up with wound clinic (he reports they didn't change anything) and PCP. Has been doing his own dressing changes at home, usually in the evening. He reports that two days ago, the pain in his LE worsened, particularly on left, and he noted increased edema. He did have chills and sweats but has not checked his temperature. Reports limited oral intake over the past two days due to loss of appetite and mild nausea but denies vomiting, diarrhea, cough, congestion, rhinorrhea, chest pain, palpitations. Pt is a current smoker - reports no change in baseline respiratory status. Allergies Allergy/AdvReac Type Severity Reaction Status Date / Time peas Allergy Severe Swelling Verified 10/18/18 10:43 of Lip/Tongue/Throat Bactrim Allergy Intermediate hives Verified 04/12/18 15:58 sulfamethoxazole Allergy Intermediate hives Verified 10/18/18 10:43 trimethoprim Allergy Intermediate hives Verified 10/18/18 10:43 tuna oil Allergy Unknown . Verified 10/18/18 10:43 Home Medications Home Medications Medication Instructions Recorded Confirmed Type albuterol sulfate [Ventolin HFA] 2 puff INHALATION Q6H PRN 05/09/18 10/18/18 History docusate sodium [Colace] 100 mg PO BID 05/09/18 10/18/18 History folic acid 1 mg PO QAM 05/09/18 10/18/18 History multivitamin 1 tab PO QAM 05/09/18 10/18/18 History nicotine 1 patch TRANSDERMAL QAM PRN 05/09/18 10/18/18 History omeprazole 20 mg PO BID 05/09/18 10/18/18 History mirtazapine 15 mg PO HS #30 tab 05/15/18 10/18/18 Rx hydroxyzine HCl 25 mg PO DAILY PRN 07/31/18 10/18/18 History gabapentin 300 mg PO TID 08/16/18 10/18/18 History hydroxyzine HCl 50 mg PO HS PRN 08/16/18 10/18/18 History furosemide [Lasix] 20 mg PO QAM 08/20/18 10/18/18 History metformin 500 mg PO BIDM 08/20/18 10/18/18 History spironolactone [Aldactone] 50 mg PO QAM 08/20/18 10/18/18 History warfarin 15 mg PO 3XWK 08/20/18 10/18/18 History fluticasone-salmeterol [Advair 1 inh INHALATION BID 09/05/18 10/18/18 History Diskus] warfarin 10 mg PO 4XWK 09/05/18 10/18/18 History hydrocodone-acetaminophen 1 tab PO Q6H PRN 10/18/18 10/18/18 History Past Med/Surg History Medical History GERD (gastroesophageal reflux disease) (Chronic) Tobacco abuse (Chronic) Chronic ulcer of lower extremity (Chronic) bilateral Chronic venous stasis dermatitis of both lower extremities (Chronic) Hypercoagulable state (Chronic) Prothrombin Factor II Mutation, 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, borderline hyperhomocystemia Anxiety (Chronic) MRSA (methicillin resistant Staphylococcus aureus) infection (Chronic) History of ETOH abuse (Chronic) Chronic narcotic use (Chronic) Type 2 diabetes mellitus (Chronic) COPD (chronic obstructive pulmonary disease) (Chronic) Depression (Chronic) Pulmonary nodule (Chronic) CT chest 04/12/18 - 4 mm RUL nodule, f/u 12 months Venous insufficiency (chronic) (peripheral) (Chronic) Anxiety COPD (chronic obstructive pulmonary disease) Cellulitis Chronic deep vein thrombosis (DVT) Chronic narcotic use Chronic ulcer of leg "b/l" Chronic venous stasis dermatitis of both lower extremities Depression GERD (gastroesophageal reflux disease) HTN (hypertension) History of ETOH abuse Hypercoagulable state On 04/12/18 14:03 Yanira Martinez wrote "Prothrombin Factor II Mutation, 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 Chaudhari History of drainage of abscess [address] 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, boderline hyperhomocystemia Social History marital status: Single Current Living Situation: Alone Feels Safe at Home: Yes Smoking Status: Current every day smoker Tobacco Type: cigarettes Hx Alcohol Use: Yes Alcohol type: beer and hard liquor Alcohol Intake Frequency : a few times a week Alcohol Intake Frequency Comment: Pt reports quit drinking end of 07/2018 Hx Substance Use: No Beliefs That Will Affect Care: None Preferred Language: Citizen Of [place] Review of Systems All systems reviewed & are unremarkable except as noted in HPI & below Constitutional: + chills, + sweats, + fatigue, + malaise, + weakness and + anorexia; no fever Eyes: no diplopia, not seeing flashes and no worsening vision Ear, Nose, Mouth, Throat: no ear pain, no nasal congestion, no nasal discharge, no sinus pain/pressure, no sore throat and no dysphagia Respiratory: + wheezing (chronic); no cough, no dyspnea on exertion, no hemoptysis and no pain on inspiration Cardiovascular: + edema (progressive LE - per pt skin "feels tight" in bilateral feet but worse on left); no chest pain, no palpitations, no lightheadedness and no syncope Gastrointestinal: + nausea (at home but currently hungry); no abdominal pain, no vomiting, no hematemesis and no pain with swallowing Genitourinary (Male): no dysuria, no difficulty urinating, no urinary frequency and no hematuria Musculoskeletal: + back pain (chronic, unchanged) and + joint pain (bilateral lower extremity - left > right ankle in particular); no muscle atrophy Integumentary: + skin ulcer (bilateral ankle ulcerations - per pt "they're healing, it's just slow but it goes faster with antibiotics") Neurologic: no seizure-like activity, no dizziness, no syncope and no headache(s ) Hematologic / Lymphatic: + problem reported on chronic anticoagulation due to chronic non-occlusive DVT Physical Exam 2 Vital Signs (Past 24 Hours): Last Vital Signs Temp 36.6 C 10/18/18 09:29 Pulse 92 H 10/18/18 12:16 Resp 18 10/18/18 12:16 BP 140/88 10/18/18 12:16 Pulse Ox 98 10/18/18 12:16 Constitutional: WD/WN, vitals as above Eyes: PERRL, conjunctivae normal, anicteric sclerae ENMT: external ear and nose normal, oropharynx normal Neck: trachea midline Respiratory: normal respiratory effort; no respiratory distress and no labored breathing Auscultation: + wheezes (occasional in upper lobes); no rales and no rhonchi Cardiovascular: Rate/Rhythm: regular rate and regular rhythm Heart Sounds: no gallop, no murmur and no cardiac rub Gastrointestinal (Abdomen): Inspection/Auscultation: + abdomen distended (mild ) Percussion/Palpation: abdomen soft; abdomen nontender and no guarding Musculoskeletal: Head/Neck/Chest: normocephalic and head atraumatic Bilateral LE with venous stasis skin coloration changes, +edema to lower thigh, erythema bilateral lower legs and thickened scaling skin, bilateral ulcerations on medial malleolus (left > right). + foul odor, no distinct drainage noted at this time, +tender to palpation entire LE (below knees) but worse on left Psychiatric: A+Ox3, euthymic affect Results & Data Laboratory Results Laboratory Results - last 24 hr 10/18/18 10/18/18 10/18/18 10:17 10:17 10:17 WBC 5.00 RBC 5.01 Hgb 14.7 Hct 44.0 MCV 87.8 MCH 29.3 MCHC 33.4 RDW Std Deviation 56.3 H RDW Coeff of Kip 17.6 H Plt Count 182 MPV 10.0 Immature Gran % (Auto) 0.2 Neut % (Auto) 74.6 Lymph % (Auto) 17.6 [place] % (Auto) 5.6 Eos % (Auto) 1.6 Baso % (Auto) 0.4 Immature Gran # (Auto) 0.01 Neut # (Auto) 3.73 Lymph # (Auto) 0.88 L [place] # (Auto) 0.28 Eos # (Auto) 0.08 Baso # (Auto) 0.02 PT 19.1 H INR 2.0 H APTT 32.5 H PTT Ratio 1.2 Sodium 135 L Potassium 3.9 Chloride 100 Carbon Dioxide 27 Anion Gap 8.0 BUN 7 Creatinine 0.85 Est Cr Clr Drug Dosing 137.9 Est GFR ( Amer) 122.8 Est GFR (Non-Af Amer) 106.0 BUN/Creatinine Ratio 8.4 L Glucose 171 H Lactate Calcium 9.2 Total Bilirubin 0.5 AST 44 H ALT 56 Alkaline Phosphatase 107 Total Protein 9.2 H Albumin 3.9 Globulin 5.3 H Albumin/Globulin Ratio 0.7 L Procalcitonin 10/18/18 10/18/18 10:17 10:17 WBC RBC Hgb Hct MCV MCH MCHC RDW Std Deviation RDW Coeff of Kip Plt Count MPV Immature Gran % (Auto) Neut % (Auto) Lymph % (Auto) [place] % (Auto) Eos % (Auto) Baso % (Auto) Immature Gran # (Auto) Neut # (Auto) Lymph # (Auto) [place] # (Auto) Eos # (Auto) Baso # (Auto) PT INR APTT PTT Ratio Sodium Potassium Chloride Carbon Dioxide Anion Gap BUN Creatinine Est Cr Clr Drug Dosing Est GFR ( Amer) Est GFR (Non-Af Amer) BUN/Creatinine Ratio Glucose Lactate 1.9 Calcium Total Bilirubin AST ALT Alkaline Phosphatase Total Protein Albumin Globulin Albumin/Globulin Ratio Procalcitonin < 0.05 Diagnostic Findings Chest X-ray 10/18/18 - IMPRESSION: No active disease in the chest. Medications Administered Discontinued Medications Sodium Chloride (Nss 1000ml) 500 mls @ 999 mls/hr IV .Q31M ONE Stop: 10/18/18 10:17 Last Infusion: 10/18/18 10:58 Dose: 0 mls/hr Admin: 10/18/18 10:27 Dose: 999 mls/hr Daptomycin 350 mg/ Syringe 7 mls @ 3.5 mls/min IV NOW ONE Stop: 10/18/18 10:39 Last Admin: 10/18/18 11:02 Dose: 3.5 mls/min Vancomycin HCl 2,250 mg/ (Sodium Chloride) 545 mls @ 200 mls/hr IV NOW ONE Stop: 10/18/18 13:21 Last Infusion: 10/18/18 13:47 Dose: 0 mls/hr Admin: 10/18/18 11:03 Dose: 200 mls/hr Morphine Sulfate (Morphine Sulfate) 4 mg IV NOW STA Stop: 10/18/18 09:48 Last Admin: 10/18/18 10:27 Dose: 4 mg Morphine Sulfate (Morphine Sulfate) 4 mg IV NOW STA Stop: 10/18/18 11:51 Last Admin: 10/18/18 12:16 Dose: 4 mg Code Status & VTE Plan Code Status Full resuscitation VTE Prophylaxis Plan VTE Prophylaxis will be ordered: Yes Supervising Physician Co-Signing Physician Notes Patient is a 43-year-old male with history of recurrent bilateral lower extremity cellulitis, chronic venous insufficiency, chronic leg ulcers, diabetes and other comorbidities presents with history of worsening B/L lower extremity edema, pain associated with some yellowish green discharge since 2 days. Patient denies any fever, chest pain, dyspnea, dizziness. On exam patient is well built, in no apparent distress, lungs decreased breath sounds, scattered rhonchi, S1-S2 no murmur, B/L LE chronic venous stasis changes, skin ulcerations, edematous and tender. Patient is admitted for B/L LE Celuulitis. No signs of sepsis. Prior wound cultures grew E.Coli. Patient will be started on IV Daptomycin and Ertepenem. Blood/Wound Cultures obtained. Cautious use of pain medications given history of pain medication seeking behavior. Consider ID consult if necessary. Wound Care Consult. Encourage leg elevation as able. Will need Follow up with ID and wound clinic upon discharge. I personally reviewed the record. Patient is interviewed and examined at bedside. Patient's care is coordinated with Jeannette Perez PA-C. Please refer to the documentation above for details of patient's presentation and for discussion of other issues. _ (1) Chronic ulcer of lower extremity Laterality: unspecified laterality Non-pressure ulcer stage: unspecified non- pressure ulcer stage Qualified Code(s): L97.909 - Non-pressure chronic ulcer of unspecified part of unspecified lower leg with unspecified severity (2) Type 2 diabetes mellitus Diabetes mellitus snf insulin use: without snf use (3) Chronic deep vein thrombosis (DVT) Affected thrombotic vein of extremity: unspecified vein of extremity DVT location: lower extremity Laterality: right Qualified Code(s): I82.501 - Chronic embolism and thrombosis of unspecified deep veins of right lower extremity (4) COPD (chronic obstructive pulmonary disease) COPD type: unspecified COPD Qualified Code(s): J44.9 - Chronic obstructive pulmonary disease, unspecified (5) GERD (gastroesophageal reflux disease) Esophagitis presence: esophagitis presence not specified Qualified Code(s): K21.9 - Gastro-esophageal reflux disease without esophagitis
[2018-10-18] MEDS ORDERED: NICOTINE 14 MG/24 HR PATCH TD PRN (15:57)
[2018-10-18] MEDS ORDERED: GLUCOSE 10 TABS/TUBE PO PRN (15:57)
[2018-10-18] MEDS ORDERED: GLUCAGON FOR INJ 1 MG VIAL SQ PRN (15:57)
[2018-10-18] MEDS ORDERED: CARBOHYDRATES FOR HYPOGLYCEMIA PO PRN (15:57)
[2018-10-18] MEDS ORDERED: ACETAMINOPHEN 325 MG TAB PO PRN (15:57)
[2018-10-18] MEDS ORDERED: GLUCOSE 40% GEL 15 GM TUBE PO PRN (15:57)
[2018-10-18] MEDS ORDERED: DEXTROSE 50% 50 ML SYRINGE IV PRN (15:57)
[2018-10-18] MEDS ORDERED: DAPTOMYCIN CONSULT ACTIVE PRN (16:37)
[2018-10-18] MEDS ORDERED: ERTAPENEM CONSULT ACTIVE PRN (16:39)
--- NOTE | 2018-10-18 16:44 | Emergency Department Note ---
Entered by Dhruv Hackett acting as a scribe for Seth Villeda MD History of Present Illness General Chief complaint: Infection Stated complaint: INFECTION L LEG/FOOT Time Seen by Provider: 10/18/18 09:35 Source: patient Limitations: no limitations History of Present Illness Provider complaint: LE wound Onset (ago): unknown (Chronic LE wounds) Location: lower extremity Pain Consistency: + other (worsening) Maximum Pain Intensity: 7 Quality: + other (Chronic wound) Associated symptoms: + cough Treatments prior to arrival: other (IV-Antibiotics 1 month ago, Pain pill last night, Xeroform) The patient is a 43 year old white male with a past medical history of recurrent cellulitis, venous insuffiency, chronic leg ulcer, DM II, COPD, hypercoagulable state - prothromin factor II mutation, chronic nonocclusive BLE DVT, GERD, tobacco use, chronic narcotic use, depression, and MRSA who presents to the Emergency Room with complaints of a worsening wound to the left lower extremity. The patient has a significant history of wounds over his lower extremities and was most recently at [facility] 1 month ago for IV- antibiotics. The IV antibiotics were stopped on September 22. He notes that over the past couple of days the left lower extremity wound has been becoming more painful, and he has noticed worsening redness up the left leg. He also complains of a loss of appetite recently, and adds that he feels nauseous after eating. The patient is using Xeroform over the wounds. He notes that he did take a pain pill last night, but has not taken anything this morning. Review of the patient's EMR shows that he was on Daptomycin and Urtipenum IV and was transitioned to Cefdinir and Zyvox. Home Medications Home Medications Medication Instructions Recorded Confirmed Type albuterol sulfate [Ventolin HFA] 2 puff INHALATION Q6H PRN 05/09/18 10/18/18 History docusate sodium [Colace] 100 mg PO BID 05/09/18 10/18/18 History folic acid 1 mg PO QAM 05/09/18 10/18/18 History multivitamin 1 tab PO QAM 05/09/18 10/18/18 History nicotine 1 patch TRANSDERMAL QAM PRN 05/09/18 10/18/18 History omeprazole 20 mg PO BID 05/09/18 10/18/18 History mirtazapine 15 mg PO HS #30 tab 05/15/18 10/18/18 Rx hydroxyzine HCl 25 mg PO DAILY PRN 07/31/18 10/18/18 History gabapentin 300 mg PO TID 08/16/18 10/18/18 History hydroxyzine HCl 50 mg PO HS PRN 08/16/18 10/18/18 History furosemide [Lasix] 20 mg PO QAM 08/20/18 10/18/18 History metformin 500 mg PO BIDM 08/20/18 10/18/18 History spironolactone [Aldactone] 50 mg PO QAM 08/20/18 10/18/18 History warfarin 15 mg PO 3XWK 08/20/18 10/18/18 History fluticasone-salmeterol [Advair 1 inh INHALATION BID 09/05/18 10/18/18 History Diskus] warfarin 10 mg PO 4XWK 09/05/18 10/18/18 History hydrocodone-acetaminophen 1 tab PO Q6H PRN 10/18/18 10/18/18 History Allergies Allergy/AdvReac Type Severity Reaction Status Date / Time peas Allergy Severe Swelling Verified 10/18/18 10:43 of Lip/Tongue/Throat Bactrim Allergy Intermediate hives Verified 04/12/18 15:58 sulfamethoxazole Allergy Intermediate hives Verified 10/18/18 10:43 trimethoprim Allergy Intermediate hives Verified 10/18/18 10:43 tuna oil Allergy Unknown . 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, borderline hyperhomocystemia Anxiety (Chronic) MRSA (methicillin resistant Staphylococcus aureus) infection (Chronic) History of ETOH abuse (Chronic) Chronic narcotic use (Chronic) Type 2 diabetes mellitus (Chronic) COPD (chronic obstructive pulmonary disease) (Chronic) Depression (Chronic) Pulmonary nodule (Chronic) CT chest 04/12/18 - 4 mm RUL nodule, f/u 12 months Venous insufficiency (chronic) (peripheral) (Chronic) Anxiety COPD (chronic obstructive pulmonary disease) Cellulitis Chronic deep vein thrombosis (DVT) Chronic narcotic use Chronic ulcer of leg "b/l" Chronic venous stasis dermatitis of both lower extremities Depression GERD (gastroesophageal reflux disease) HTN (hypertension) History of ETOH abuse Hypercoagulable state On 04/12/18 14:03 Yanira Martniez wrote "Prothrombin Factor II Mutation, 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 Chaudhari History of drainage of abscess [address] 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, boderline hyperhomocystemia Social History marital status: Single Current Living Situation: Alone Feels Safe at Home: Yes Smoking Status: Current every day smoker Tobacco Type: cigarettes Hx Alcohol Use: Yes Alcohol type: beer and hard liquor Alcohol Intake Frequency : a few times a week Alcohol Intake Frequency Comment: Pt reports quit drinking end of 07/2018 Hx Substance Use: No Beliefs That Will Affect Care: None Preferred Language: Setswana Review of Systems See HPI for pertinent positives & negatives. and A total of 10 systems reviewed and were otherwise negative Physical Exam Vital Signs Vital Signs - 24 hr 10/18/18 09:23 10/18/18 09:29 10/18/18 09:47 Temperature 36.6 C Temperature Source Oral Oral Sepsis Recent Fever Within 48 Hours No Sepsis Action Taken by Nursing No Action Required Pulse Rate 91 H Pulse Rate [Finger] Pulse Rhythm [Finger] Pulse Strength [Finger] Respiratory Rate 20 Respiratory Effort / Characteristics Non-Labored Spontaneous Respiratory Depth Normal Respiratory Pattern Blood Pressure 164/81 H Blood Pressure [Right Arm] Blood Pressure Mean 108 Blood Pressure Mean [Right Arm] Blood Pressure Position [Right Arm] Pulse Oximetry 99 99 Oxygen Delivery Method Room Air Room Air 10/18/18 11:02 10/18/18 12:16 10/18/18 14:15 Temperature Temperature Source Sepsis Recent Fever Within 48 Hours Sepsis Action Taken by Nursing Pulse Rate Pulse Rate [Finger] 86 92 H 85 Pulse Rhythm [Finger] Regular Regular Regular Pulse Strength [Finger] Normal Normal Normal Respiratory Rate 18 18 14 Respiratory Effort / Characteristics Non-Labored Spontaneous Non-Labored Spontaneous Non-Labored Spontaneous Respiratory Depth Normal Normal Normal Respiratory Pattern Regular Regular Regular Blood Pressure Blood Pressure [Right Arm] 132/88 140/88 129/84 Blood Pressure Mean Blood Pressure Mean [Right Arm] 102 105 99 Blood Pressure Position [Right Arm] Lying Lying Lying Pulse Oximetry 97 98 96 Oxygen Delivery Method Room Air Room Air Room Air 10/18/18 14:58 Temperature Temperature Source Sepsis Recent Fever Within 48 Hours Sepsis Action Taken by Nursing Pulse Rate 78 Pulse Rate [Finger] Pulse Rhythm [Finger] Pulse Strength [Finger] Respiratory Rate 16 Respiratory Effort / Characteristics Respiratory Depth Respiratory Pattern Blood Pressure 95/59 L Blood Pressure [Right Arm] Blood Pressure Mean Blood Pressure Mean [Right Arm] Blood Pressure Position [Right Arm] Pulse Oximetry 95 Oxygen Delivery Method Room Air GENERAL: Well appearing, well nourished, NAD, non-toxic. Wearing glasses. EYE EXAM: Normal conjunctiva. PERRL, no anisocoria and EOM's grossly intact w/o pain. OROPHARYNX: Mucous membranes moist NECK: Supple, no nuchal rigidity, no adenopathy, non-tender. no signs of meningismus. LUNGS: Wheezing throughout. Normal chest wall mechanics. HEART: NSR, no MRG. ABDOMEN: Abdomen soft, non-tender, normo-active bowel sounds, no masses, no rebound or guarding. BACK: No CVA TTP. SKIN: No rashes and no bruising. UPPER EXTREMITIES: Upper extremities are grossly normal. LOWER EXTREMITIES: Lower extremities are edematous and red bilaterally. Bilateral lower extremities are wrapped in [place] bandages. There is scaling present over the right ankle. There is a deep wound present to the left ankle. SILT bilatearlly. NEURO EXAM: Alert and oriented x3, GCS of 15, moves all extremities without issue, no gross deficits. Course 0940: Past medical records reviewed. The patient was evaluated in room B5, and a complete history and physical examination were performed. 1139: I reviewed the patient's case with Blaire Herrera PA-C Hospitalist. She will evaluate the patient for further management. Consultations Consultation #1: [id number]: I reviewed the patient's case with Blaire Herrera PA-C Hospitalist. She will evaluate the patient for further management. Administered Medications Discontinued Medications Sodium Chloride (Nss 1000ml) 500 mls @ 999 mls/hr IV .Q31M ONE Stop: 10/18/18 10:17 Last Infusion: 10/18/18 10:58 Dose: 0 mls/hr Admin: 10/18/18 10:27 Dose: 999 mls/hr Daptomycin 350 mg/ Syringe 7 mls @ 3.5 mls/min IV NOW ONE Stop: 10/18/18 10:39 Last Admin: 10/18/18 11:02 Dose: 3.5 mls/min Vancomycin HCl 2,250 mg/ (Sodium Chloride) 545 mls @ 200 mls/hr IV NOW ONE Stop: 10/18/18 13:21 Last Infusion: 10/18/18 13:47 Dose: 0 mls/hr Admin: 10/18/18 11:03 Dose: 200 mls/hr Morphine Sulfate (Morphine Sulfate) 4 mg IV NOW STA Stop: 10/18/18 09:48 Last Admin: 10/18/18 10:27 Dose: 4 mg Morphine Sulfate (Morphine Sulfate) 4 mg IV NOW STA Stop: 10/18/18 11:51 Last Admin: 10/18/18 12:16 Dose: 4 mg Medical Decision Making Medical Records Attestation: I reviewed the patient's medical records. Home Medications Current Medication List: was personally reviewed by me Laboratory Data Attestation: I reviewed the patient's lab results. Result diagrams: 10/18/18 10:17 10/18/18 10:17 Lab Results 10/18/18 10/18/18 10/18/18 Range/Units 10:17 10:17 10:17 WBC 5.00 (4.8-10.8) K/uL RBC 5.01 (4.7-6.1) M/uL Hgb 14.7 (14.0-18.0) g/dL Hct 44.0 (42-52) % MCV 87.8 (80-100) fL MCH 29.3 (25-34) pg MCHC 33.4 (32-36) g/dL RDW Std Deviation 56.3 H (36.4-46.3) fL RDW Coeff of Kip 17.6 H (11.5-14.5) % Plt Count 182 (130-400) K/uL MPV 10.0 (7.4-10.4) fL Immature Gran % (Auto) 0.2 % Neut % (Auto) 74.6 % Lymph % (Auto) 17.6 % [place] % (Auto) 5.6 % Eos % (Auto) 1.6 % Baso % (Auto) 0.4 % Immature Gran # (Auto) 0.01 (0.00-0.02) K/uL Neut # (Auto) 3.73 (1.4-6.5) K/uL Lymph # (Auto) 0.88 L (1.2-3.4) K/uL [place] # (Auto) 0.28 (0.11-0.59) K/uL Eos # (Auto) 0.08 (0-0.5) K/uL Baso # (Auto) 0.02 (0-0.2) K/uL PT 19.1 H (9.0-12.0) Seconds INR 2.0 H (0.9-1.1) APTT 32.5 H (21.0-31.0) Seconds PTT Ratio 1.2 Sodium 135 L (136-145) mmol/L Potassium 3.9 (3.5-5.1) mmol/L Chloride 100 (98-107) mmol/L Carbon Dioxide 27 (21-32) mmol/L Anion Gap 8.0 (3-11) BUN 7 (7-18) mg/dl Creatinine 0.85 (0.6-1.4) mg/dl Est Cr Clr Drug Dosing 137.9 ml/min Est GFR ( Amer) 122.8 Est GFR (Non-Af Amer) 106.0 BUN/Creatinine Ratio 8.4 L (10-20) Glucose 171 H (70-99) mg/dl Lactate (0.4-2.0) mmol/L Calcium 9.2 (8.5-10.1) mg/dl Total Bilirubin 0.5 (0.2-1) mg/dl AST 44 H (15-37) U/L ALT 56 (12-78) U/L Alkaline Phosphatase 107 (45-117) U/L Total Protein 9.2 H (6.4-8.2) gm/dl Albumin 3.9 (3.4-5.0) gm/dl Globulin 5.3 H (2.5-4.0) gm/dl Albumin/Globulin Ratio 0.7 L (0.9-2) Procalcitonin (0-0.5) ng/ml 10/18/18 10/18/18 Range/Units 10:17 10:17 WBC (4.8-10.8) K/uL RBC (4.7-6.1) M/uL Hgb (14.0-18.0) g/dL Hct (42-52) % MCV (80-100) fL MCH (25-34) pg MCHC (32-36) g/dL RDW Std Deviation (36.4-46.3) fL RDW Coeff of Kip (11.5-14.5) % Plt Count (130-400) K/uL MPV (7.4-10.4) fL Immature Gran % (Auto) % Neut % (Auto) % Lymph % (Auto) % [place] % (Auto) % Eos % (Auto) % Baso % (Auto) % Immature Gran # (Auto) (0.00-0.02) K/uL Neut # (Auto) (1.4-6.5) K/uL Lymph # (Auto) (1.2-3.4) K/uL [place] # (Auto) (0.11-0.59) K/uL Eos # (Auto) (0-0.5) K/uL Baso # (Auto) (0-0.2) K/uL PT (9.0-12.0) Seconds INR (0.9-1.1) APTT (21.0-31.0) Seconds PTT Ratio Sodium (136-145) mmol/L Potassium (3.5-5.1) mmol/L Chloride (98-107) mmol/L Carbon Dioxide (21-32) mmol/L Anion Gap (3-11) BUN (7-18) mg/dl Creatinine (0.6-1.4) mg/dl Est Cr Clr Drug Dosing ml/min Est GFR ( Amer) Est GFR (Non-Af Amer) BUN/Creatinine Ratio (10-20) Glucose (70-99) mg/dl Lactate 1.9 (0.4-2.0) mmol/L Calcium (8.5-10.1) mg/dl Total Bilirubin (0.2-1) mg/dl AST (15-37) U/L ALT (12-78) U/L Alkaline Phosphatase (45-117) U/L Total Protein (6.4-8.2) gm/dl Albumin (3.4-5.0) gm/dl Globulin (2.5-4.0) gm/dl Albumin/Globulin Ratio (0.9-2) Procalcitonin < 0.05 (0-0.5) ng/ml Imaging Data Attestation: I personally reviewed and interpreted this imaging study as follows : Radiologist's Impression: SINGLE VIEW CHEST CLINICAL HISTORY: Sepsis. FINDINGS: An AP, portable, upright chest radiograph is compared to study dated 07/06/2018 and correlated with chest CT dated 04/12/2018. The examination is degraded by portable technique and patient rotation. The heart is top normal for projection. The mediastinal contour is within normal limits. There is mild bibasilar atelectasis. The lungs and pleural spaces are otherwise clear. No pneumothorax is seen. The bony thorax is grossly intact. IMPRESSION: No active disease in the chest. Electronically signed by: Emil Morelos M.D. 10/18/2018 10:29 AM Blood Pressure Blood Pressure Findings: Elevated blood pressure Blood Pressure Disposition: further management by hospitalist SNEHAL Narrative The patient is a 43 year old white male with a past medical history of recurrent cellulitis, venous insuffiency, chronic leg ulcer, DM II, COPD, hypercoagulable state - prothromin factor II mutation, chronic nonocclusive BLE DVT, GERD, tobacco use, chronic narcotic use, depression, and MRSA who presents to the Emergency Room with complaints of a worsening wound to the left lower extremity. Differential diagnosis: Etiologies such as cellulitis, abscess, osteomyelitis, MRSA infection, DVT, necrotizing fasciitis, dermatitis, drug eruption, as well as others were entertained. Patient was seen and evaluated at the bedside. The patient does have a known history of very bad lower extremity venous stasis associated nonocclusive DVTs and extensive cellulitis. Patient was admitted back in August for which she did receive ertapenem and daptomycin was transitioned to Ceftin ear and Zyvox.. Patient states that he has had some worsening malodorous drainage from his right medial ankle. The patient's wounds is an ulceration it is somewhat malodorous but no obvious purulent drainage. Wound cultures were taken and the patient did have blood cultures completed and was given empiric IV antibiotics. Given the extent of the patient's cellulitis and associated comorbidities I believe he would benefit from inpatient treatment. I did speak with the on- call hospitalist who agreed to further evaluate treat the patient. Given the patient's extensive cellulitis even with reassuring blood work I did speak the on-call hospitalist who agreed to further evaluate treat the patient. Patient was admitted to the medicine service. Impression & Plan Bilateral cellulitis of lower leg, Ulcer of lower extremity, Encounter for smoking cessation counseling Discharge Plan Visit Data *Final* Discharge Date/Time: 10/18/18 14:58 Chief Complaint: Infection Stated Complaint: INFECTION L LEG/FOOT ED Provider: Seth Villeda Discharge Problem: Bilateral cellulitis of lower leg, Ulcer of lower extremity, Encounter for smoking cessation counseling Patient Disposition: Admitted As Inpatient Discharge Instructions Interventions: ED Discharge Assessment Last Done: 10/18/18 14:58 The scribe's documentation has been prepared under my direction and personally reviewed by me in its entirety. I confirm that the note above accurately reflects all work, treatment, procedures, and medical decision making performed by me.
[2018-10-18] MEDS: MoRPHine SULFATE 4 MG/ML 1 ML CARP\\VIAL IV PRN ×2 (16:46→20:02)
[2018-10-18] MEDS: WARFARIN SOD 5 MG TAB PO SCH (18:38)
[2018-10-18] MEDS: ERTAPENEM SODIUM 1,000 MG in SODIUM CHLORIDE 0.9% 50 ML IV SCH (18:39)
[2018-10-18] MEDS: HYDROCODONE/ACETAMOPHEN 5/325MG TAB PO PRN (18:51)
[2018-10-18] MEDS: INSULIN ASPART 100 UNITS/ML 3 ML PEN SC SCH ×2 (19:34→20:09)
[2018-10-18] MEDS: FLUTICASONE/SALMETEROL (ADVAIR) 500/50 INH 14 PUFF INH SCH (19:58)
[2018-10-18] MEDS: MIRTAZAPINE TAB 15 MG TAB PO SCH (19:59)
[2018-10-18] MEDS: PANTOprazole 40 MG TAB PO SCH (19:59)
[2018-10-18] MEDS: GABAPENTIN 300 MG CAP PO SCH (19:59)
[2018-10-18] MEDS: DOCUSATE SODIUM 100 MG CAP PO SCH (20:00)
[2018-10-19] MEDS: MoRPHine SULFATE 4 MG/ML 1 ML CARP\\VIAL IV PRN ×5 (01:28→20:42)
[2018-10-19 07:54] LABS: Basophils # (auto) 0.03 K/uL (0-0.2); Basophils % (auto) 0.9 %; Eosinophils # (auto) 0.09 K/uL (0-0.5); Eosinophils % (auto) 2.7 %; Hematocrit (blood only) 39.2 % (42-52); Hemoglobin 12.9 g/dL (14.0-18.0); Immature Granulocytes # (auto) 0.01 K/uL (0.00-0.02); Immature Granulocytes % (auto) 0.3 %; Lymphocytes # (auto) 0.74 K/uL (1.2-3.4); Lymphocytes % (auto) 22.1 %; Mean Corpuscular Hgb Conc 32.9 g/dL (32-36); Mean Corpuscular Volume 87.9 fL (80-100); Mean Platelet Volume 9.4 fL (7.4-10.4); Monocytes # (auto) 0.25 K/uL (0.11-0.59); Monocytes % (auto) 7.5 %; Neutrophils # (auto) 2.23 K/uL (1.4-6.5); Neutrophils % (auto) 66.5 %; Platelet Count 146 K/uL (130-400); RDW Coefficient of Variation 17.6 % (11.5-14.5); RDW Standard Deviation 56.1 fL (36.4-46.3); Red Blood Count 4.46 M/uL (4.7-6.1); White Blood Count 3.35 K/uL (4.8-10.8)
[2018-10-19 08:02] LABS: Prothrombin Time 19.9 Seconds (9.0-12.0)
[2018-10-19] MEDS: FLUTICASONE/SALMETEROL (ADVAIR) 500/50 INH 14 PUFF INH SCH ×2 (08:07→20:40)
[2018-10-19] MEDS: MULTIVITAMIN TAB PO SCH (08:08)
[2018-10-19] MEDS: GABAPENTIN 300 MG CAP PO SCH ×3 (08:08→20:39)
[2018-10-19] MEDS: DOCUSATE SODIUM 100 MG CAP PO SCH ×2 (08:08→20:39)
[2018-10-19] MEDS: FUROSEMIDE 20 MG TAB PO SCH (08:09)
[2018-10-19] MEDS: SPIRONOLACTONE 25 MG TAB PO SCH (08:09)
[2018-10-19] MEDS: PANTOprazole 40 MG TAB PO SCH ×2 (08:09→20:41)
[2018-10-19] MEDS: FOLIC ACID 1 MG TAB PO SCH (08:09)
[2018-10-19] MEDS: INSULIN ASPART 100 UNITS/ML 3 ML PEN SC SCH ×4 (08:11→20:41)
[2018-10-19] MEDS: HYDROCODONE/ACETAMOPHEN 5/325MG TAB PO PRN ×3 (08:16→22:09)
[2018-10-19] MEDS: DAPTOmycin 350 MG in SYRINGE 0 ML IV SCH (08:17)
[2018-10-19 08:28] LABS: BUN Creatinine Ratio 10.2 (10-20); Calcium 8.6 mg/dl (8.5-10.1); Creatinine Clr Calc Pharmacy 165.1 ml/min; Est GFR (African American) 132.3; Est GFR (Non-African American) 114.1
[2018-10-19] MEDS: PROSOURCE NO CARB 30 ML/PKT PO SCH ×2 (13:50→20:40)
[2018-10-19] MEDS: WARFARIN SOD 10 MG TAB PO SCH (15:41)
[2018-10-19] MEDS ORDERED: PIPERACILL/TAZOBAC CONSULT ACTIVE PRN (17:06)
[2018-10-19] MEDS ORDERED: PIPERACILLIN/TAZOBACTAM 4.5 GM in DEXTROSE 5% 100 ML IV ONE (17:15)
[2018-10-19] MEDS: ERTAPENEM SODIUM 1,000 MG in SODIUM CHLORIDE 0.9% 50 ML IV SCH (17:54)
--- NOTE | 2018-10-19 18:16 | Hospitalist Progress Note ---
Date of Service October 19, 2018 Assessment & Plan (1) Bilateral cellulitis of lower leg: Bilateral cellulitis of lower leg: Recurrent issue for patient - old records from prior admissions reviewed. Suppressive therapy discussed by ID during last admission but to be determined after pt completed course of IV antibiotics. Does not appear this was followed up as outpatient. For now, starting empiric daptomycin and ertapenem based on prior culture results May need to consider ID consult again this admission but will hold off for now pending clinical course/culture results Present on Admission?: Yes Chronic ulcer of lower extremity: Consult wound care nurse for recommendations Wound cultures collected by ED - will f/u results once available Present on Admission?: Yes Chronic venous stasis dermatitis of both lower extremities: Present on Admission?: Yes Type 2 diabetes mellitus: A1c checked in 01.31 as outpatient Hold Metformin while admitted Insulin Sliding Scale - may need basal Lantus pending but will monitor BSG for now Diabetic diet BSG ACHS Present on Admission?: Yes GERD (gastroesophageal reflux disease): - Continue outpatient PPI therapy COPD (chronic obstructive pulmonary disease): - Continue Advair for maintenance - per pt, respiratory status at baseline. CXR negative - PRN albuterol nebs Present on Admission?: Yes Tobacco abuse: Smoking cessation counseling Nicotine patch ordered Present on Admission?: Yes Hypercoagulable state: On chronic anticoagulation - INR therapeutic on admission Continue home warfarin dosing/monitor daily INR Present on Admission?: Yes Chronic deep vein thrombosis (DVT): Pt on chronic anticoagulation with warfarin - INR today is 2.0. Venous duplex from last month showed no sonographic evidence of acute deep venous thrombosis identified in the right or left lower extremity but chronic thrombus/ scarring within the lower extremities bilaterally from the common femoral vein to the popliteal vein. Continue warfarin at home doing - monitor INR daily Present on Admission?: Yes (2) Ulcer of lower extremity: As above (3) COPD (chronic obstructive pulmonary disease): Subjective 43 y/o male with a past medical history of recurrent LE cellulitis, venous insufficiency, chronic leg ulcers, DM II, COPD, hypercoagulable state - prothromin factor II mutation, chronic nonocclusive BLE DVT, GERD, tobacco use, chronic narcotic use, depression, and h/o MRSA who presents to the ED today with two days of worsening LE edema and pain c/w with prior episodes of LE cellulitis. 10/19 The patient was seen and examined the medical floor Complaints of nausea but no vomiting Leg pain is better Denies any other symptoms Constitutional: + chills, + sweats, + fatigue, + malaise, + weakness and + anorexia; no fever Respiratory: + wheezing (chronic); no cough, no dyspnea on exertion, no hemoptysis and no pain on inspiration Cardiovascular: + edema (progressive LE - per pt skin "feels tight" in bilateral feet but worse on left); no chest pain, no palpitations, no lightheadedness and no syncope Gastrointestinal: + nausea (at home but currently hungry); no abdominal pain, no vomiting, no hematemesis and no pain with swallowing Musculoskeletal: + back pain (chronic, unchanged) and + joint pain (bilateral lower extremity - left > right ankle in particular); no muscle atrophy Integumentary: + skin ulcer (bilateral ankle ulcerations - per pt "they're healing, it's just slow but it goes faster with antibiotics") Hematologic / Lymphatic: + problem reported Physical Exam 2 Vital Signs (Past 24 Hours): Last Vital Signs Temp 36.7 C 10/19/18 14:48 Pulse 81 10/19/18 14:48 Resp 16 10/19/18 14:48 BP 118/76 10/19/18 14:48 Pulse Ox 97 10/19/18 14:48 Physical Exam: Lying in bed comfortably Constitutional: WD/WN, vitals as above Eyes: PERRL, conjunctivae normal, anicteric sclerae ENMT: external ear and nose normal, oropharynx normal Neck: trachea midline Respiratory: normal respiratory effort; no respiratory distress and no labored breathing Auscultation: + wheezes (occasional in upper lobes); no rales and no rhonchi Cardiovascular: Rate/Rhythm: regular rate and regular rhythm Heart Sounds: no gallop, no murmur and no cardiac rub Gastrointestinal (Abdomen): Inspection/Auscultation: + abdomen distended (mild ) and normal bowel sounds Percussion/Palpation: abdomen soft; abdomen nontender and no guarding Musculoskeletal: Head/Neck/Chest: normocephalic and head atraumatic Extremities: + extremities abnormal to inspection (Chronic ischemic changes bilaterally with chronic cellulitis and surrounding inflammation) Psychiatric: A+Ox3, euthymic affect Results & Data Laboratory Results Short CBC 10/19/18 Range/Units 07:40 WBC 3.35 L (4.8-10.8) K/uL Hgb 12.9 L (14.0-18.0) g/dL Hct 39.2 L (42-52) % Plt Count 146 (130-400) K/uL BMP 10/19/18 07:40 Sodium 137 Potassium 4.0 Chloride 106 Carbon Dioxide 26 BUN 7 Creatinine 0.71 Glucose 129 H Calcium 8.6 Medications Administered Current Inpatient Medications Acetaminophen (Tylenol) 650 mg PO Q4H PRN PRN Reason: pain/fever Stop: 11/17/18 15:56 Hydrocodone Bitart/Acetaminophen ([place] 5/325) 1 tab PO Q6H PRN PRN Reason: Pain Stop: 11/01/18 15:56 Last Admin: 10/19/18 13:51 Dose: 1 tab Dextrose (Dextrose 50%) 25 - 50 ml IV UD PRN; Protocol PRN Reason: Hypoglycemia Protocol Stop: 11/17/18 15:56 Docusate Sodium (Colace) 100 mg PO BID OTILIA Stop: 11/17/18 20:59 Last Admin: 10/19/18 08:08 Dose: 100 mg Folic Acid (Folvite) 1 mg PO QAM [facility] Stop: 11/18/18 08:59 Last Admin: 10/19/18 08:09 Dose: 1 mg Furosemide (Lasix) 20 mg PO QAM [facility] Stop: 11/18/18 08:59 Last Admin: 10/19/18 08:09 Dose: 20 mg Gabapentin (Neurontin) 300 mg PO TID OTIL[facility] Stop: 11/17/18 20:59 Last Admin: 10/19/18 13:45 Dose: 300 mg Glucagon (Glucagen) 1 mg SQ UD PRN; Protocol PRN Reason: Hypoglycemia Protocol Stop: 11/17/18 15:56 Glucose (Glucose 40%) 15 - 30 gm PO UD PRN; Protocol PRN Reason: Hypoglycemia Protocol Stop: 11/17/18 15:56 Glucose (Dex4 Glucose) 4 - 8 tabs PO UD PRN; Protocol PRN Reason: Hypoglycemia Protocol Stop: 11/17/18 15:56 Hydroxyzine HCl (Vistaril) 50 mg PO HS PRN PRN Reason: Sleep Stop: 11/17/18 15:56 Last Admin: 10/18/18 20:00 Dose: 50 mg Daptomycin 350 mg/ Syringe 7 mls @ 3.5 mls/min IV Q24H OTILIA; Protocol Stop: 10/29/18 08:59 Last Admin: 10/19/18 08:17 Dose: 3.5 mls/min Insulin Aspart (Novolog Flexpen) 0 units SC ACHS OTILIA Stop: 11/17/18 16:29 Last Admin: 10/19/18 17:38 Dose: 7 units Mirtazapine (Remeron) 15 mg PO HS OTILIA Stop: 11/17/18 20:59 Last Admin: 10/18/18 19:59 Dose: 15 mg Miscellaneous (Carbohydrates For Hypoglycemia) 15 - 30 gm PO UD PRN PRN Reason: Hypoglycemia Treatment Stop: 11/17/18 15:56 Miscellaneous (Remove Nicoderm Patch) 1 ea N/A HS PRN PRN Reason: Insomnia Stop: 11/17/18 16:27 Miscellaneous Information (Consult) 1 ea N/A UD PRN PRN Reason: Consult Stop: 11/17/18 16:36 Miscellaneous Information (Consult) 1 ea N/A UD PRN PRN Reason: Consult Stop: 11/18/18 17:05 Morphine Sulfate (Morphine Sulfate) 2 mg IV Q4H PRN PRN Reason: Pain Stop: 11/02/18 00:00 Last Admin: 10/19/18 15:39 Dose: 2 mg Multivitamins (Multivitamin Tab) 1 tab PO QAM OTILIA Stop: 11/18/18 08:59 Last Admin: 10/19/18 08:08 Dose: 1 tab Nicotine (Nicoderm Cq) 14 mg TD QAM PRN PRN Reason: Withdrawal Symptoms Stop: 11/17/18 15:56 Nutritional Formula (Prosource No Carb) 30 ml PO TID OTILIA Stop: 11/18/18 13:59 Last Admin: 10/19/18 13:50 Dose: 30 ml Ondansetron HCl (Zofran) 4 mg IV Q6H PRN PRN Reason: Nausea Stop: 11/18/18 11:33 Pantoprazole Sodium (Protonix) 40 mg PO BID [facility] Stop: 11/17/18 20:59 Last Admin: 10/19/18 08:09 Dose: 40 mg Fluticasone/Salmeterol (Advair Diskus 500/50) 1 puffs INH BID [facility] Stop: 11/17/18 20:59 Last Admin: 10/19/18 08:07 Dose: 1 puffs Spironolactone (Aldactone) 50 mg PO QAM [facility] Stop: 11/18/18 08:59 Last Admin: 10/19/18 08:09 Dose: 50 mg Warfarin Sodium (Coumadin) 10 mg PO SuMoWeFr@1600 [facility] Stop: 11/18/18 15:59 Last Admin: 10/19/18 15:41 Dose: 10 mg Warfarin Sodium (Coumadin) 15 mg PO TuThSa@1600 [facility] Stop: 11/17/18 16:59 Last Admin: 10/18/18 18:38 Dose: 15 mg _ (1) Ulcer of lower extremity Laterality: left Non-pressure ulcer stage: unspecified non-pressure ulcer stage Qualified Code(s): L97.929 - Non-pressure chronic ulcer of unspecified part of left lower leg with unspecified severity (2) COPD (chronic obstructive pulmonary disease) COPD type: unspecified COPD Chronic bronchitis type: Emphysema type: Qualified Code(s): J44.9 - Chronic obstructive pulmonary disease, unspecified
[2018-10-19] MEDS: MIRTAZAPINE TAB 15 MG TAB PO SCH (20:42)
[2018-10-19] MEDS: PIPERACILLIN/TAZOBACTAM 4.5 GM in DEXTROSE 5% 100 ML IV SCH (22:09)
[2018-10-20] MEDS: MoRPHine SULFATE 4 MG/ML 1 ML CARP\\VIAL IV PRN ×5 (00:47→21:19)
[2018-10-20] MEDS: HYDROCODONE/ACETAMOPHEN 5/325MG TAB PO PRN ×4 (05:22→23:46)
[2018-10-20] MEDS: PIPERACILLIN/TAZOBACTAM 4.5 GM in DEXTROSE 5% 100 ML IV SCH ×3 (05:27→21:25)
[2018-10-20 06:04] LABS: Basophils # (auto) 0.02 K/uL (0-0.2); Basophils % (auto) 0.6 %; Eosinophils # (auto) 0.08 K/uL (0-0.5); Eosinophils % (auto) 2.2 %; Hematocrit (blood only) 39.4 % (42-52); Hemoglobin 12.7 g/dL (14.0-18.0); Immature Granulocytes # (auto) 0.01 K/uL (0.00-0.02); Immature Granulocytes % (auto) 0.3 %; Lymphocytes # (auto) 1.11 K/uL (1.2-3.4); Lymphocytes % (auto) 30.7 %; Mean Corpuscular Hgb Conc 32.2 g/dL (32-36); Mean Corpuscular Volume 87.9 fL (80-100); Mean Platelet Volume 9.2 fL (7.4-10.4); Monocytes # (auto) 0.27 K/uL (0.11-0.59); Monocytes % (auto) 7.5 %; Neutrophils # (auto) 2.12 K/uL (1.4-6.5); Neutrophils % (auto) 58.7 %; Platelet Count 162 K/uL (130-400); RDW Coefficient of Variation 17.4 % (11.5-14.5); Red Blood Count 4.48 M/uL (4.7-6.1); White Blood Count 3.61 K/uL (4.8-10.8)
[2018-10-20 06:16] LABS: INR 2.3 (0.9-1.1); Prothrombin Time 21.8 Seconds (9.0-12.0)
[2018-10-20 06:37] LABS: Calcium 8.5 mg/dl (8.5-10.1); Creatinine Clr Calc Pharmacy 141.3 ml/min; Potassium 3.8 mmol/L (3.5-5.1)
[2018-10-20] MEDS: FOLIC ACID 1 MG TAB PO SCH (07:48)
[2018-10-20] MEDS: GABAPENTIN 300 MG CAP PO SCH ×3 (07:48→21:35)
[2018-10-20] MEDS: PANTOprazole 40 MG TAB PO SCH ×2 (07:49→21:35)
[2018-10-20] MEDS: MULTIVITAMIN TAB PO SCH (07:49)
[2018-10-20] MEDS: FUROSEMIDE 20 MG TAB PO SCH (07:49)
[2018-10-20] MEDS: DOCUSATE SODIUM 100 MG CAP PO SCH ×2 (07:49→21:18)
[2018-10-20] MEDS: SPIRONOLACTONE 25 MG TAB PO SCH (07:50)
[2018-10-20] MEDS: FLUTICASONE/SALMETEROL (ADVAIR) 500/50 INH 14 PUFF INH SCH ×2 (07:50→21:19)
[2018-10-20] MEDS: PROSOURCE NO CARB 30 ML/PKT PO SCH ×3 (07:51→21:34)
[2018-10-20] MEDS: INSULIN ASPART 100 UNITS/ML 3 ML PEN SC SCH ×4 (08:01→21:21)
[2018-10-20] MEDS: DAPTOmycin 350 MG in SYRINGE 0 ML IV SCH (08:10)
--- NOTE | 2018-10-20 15:20 | Infectious Disease Consult ---
Date of Consultation October 20, 2018 Assessment & Plan (1) Bilateral cellulitis of lower leg: Recurrent bilateral lower extremity cellulitis in the setting of chronic venous stasis disease, lymphedema, chronic leg ulcerations with positive cultures for methicillin sensitive staph aureus and pseudomonas aeruginosa. Coverage with daptomycin and and Zosyn appropriate for now, can discontinue daptomycin if staph aureus isolate not methicillin-resistant. Length of IV antibiotics will be determined by clinical response. Will follow. (2) Pseudomonas aeruginosa infection: (3) MSSA (methicillin susceptible Staphylococcus aureus) infection: History of Present Illness Reason for Consultation: Patient on daptomycin, infectious disease consult required as per P & T Attending Physician: Dallas Wilkins MD History of Present Illness 43-year-old male well-known to the infectious disease service with history of diabetes mellitus, DVT, COPD, hypercoagulable state, chronic lower extremity venous stasis disease and lymphedema, with multiple recurrent admissions over the last several months for cellulitis. He presents now with several days of progressively worsening lower extremity redness, swelling, and drainage. He recently completed a course of IV antibiotics for cellulitis. Was been started empirically on daptomycin and ertapenem.Cultures from his leg wound is now growing staph aureus and pseudomonas aeruginosa. Ertapenem now changed to IV Zosyn. Patient has not had any significant fever or chills but complaining of weakness and fatigue. Allergies Allergy/AdvReac Type Severity Reaction Status Date / Time peas Allergy Severe Swelling Verified 10/18/18 10:43 of Lip/Tongue/Throat Bactrim Allergy Intermediate hives Verified 04/12/18 15:58 sulfamethoxazole Allergy Intermediate hives Verified 10/18/18 10:43 trimethoprim Allergy Intermediate hives Verified 10/18/18 10:43 tuna oil Allergy Unknown . Verified 10/18/18 10:43 Home Medications Home Medications Medication Instructions Recorded Confirmed Type albuterol sulfate [Ventolin HFA] 2 puff INHALATION Q6H PRN 05/09/18 10/18/18 History docusate sodium [Colace] 100 mg PO BID 05/09/18 10/18/18 History folic acid 1 mg PO QAM 05/09/18 10/18/18 History multivitamin 1 tab PO QAM 05/09/18 10/18/18 History nicotine 1 patch TRANSDERMAL QAM PRN 05/09/18 10/18/18 History omeprazole 20 mg PO BID 05/09/18 10/18/18 History mirtazapine 15 mg PO HS #30 tab 05/15/18 10/18/18 Rx hydroxyzine HCl 25 mg PO DAILY PRN 07/31/18 10/18/18 History gabapentin 300 mg PO TID 08/16/18 10/18/18 History hydroxyzine HCl 50 mg PO HS PRN 08/16/18 10/18/18 History furosemide [Lasix] 20 mg PO QAM 08/20/18 10/18/18 History metformin 500 mg PO BIDM 08/20/18 10/18/18 History spironolactone [Aldactone] 50 mg PO QAM 08/20/18 10/18/18 History warfarin 15 mg PO 3XWK 08/20/18 10/18/18 History fluticasone-salmeterol [Advair 1 inh INHALATION BID 09/05/18 10/18/18 History Diskus] warfarin 10 mg PO 4XWK 09/05/18 10/18/18 History hydrocodone-acetaminophen 1 tab PO Q6H PRN 10/18/18 10/18/18 History Patient History Medical History GERD (gastroesophageal reflux disease) (Chronic) Tobacco abuse (Chronic) Chronic ulcer of lower extremity (Chronic) bilateral Chronic venous stasis dermatitis of both lower extremities (Chronic) Hypercoagulable state (Chronic) Prothrombin Factor II Mutation, 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, borderline hyperhomocystemia Anxiety (Chronic) MRSA (methicillin resistant Staphylococcus aureus) infection (Chronic) History of ETOH abuse (Chronic) Chronic narcotic use (Chronic) Type 2 diabetes mellitus (Chronic) COPD (chronic obstructive pulmonary disease) (Chronic) Depression (Chronic) Pulmonary nodule (Chronic) CT chest 04/12/18 - 4 mm RUL nodule, f/u 12 months Venous insufficiency (chronic) (peripheral) (Chronic) Anxiety COPD (chronic obstructive pulmonary disease) Cellulitis Chronic deep vein thrombosis (DVT) Chronic narcotic use Chronic ulcer of leg "b/l" Chronic venous stasis dermatitis of both lower extremities Depression GERD (gastroesophageal reflux disease) HTN (hypertension) History of ETOH abuse Hypercoagulable state On 04/12/18 14:03 Yanira Martinez wrote "Prothrombin Factor II Mutation, 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 Chaudhari History of drainage of abscess [address] 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, boderline hyperhomocystemia Social History marital status: Single Current Living Situation: Alone Other Information That Helps Us Care for You: No Feels Safe at Home: Yes Smoking Status: Current every day smoker Tobacco Type: cigarettes Cigarettes per Day: 20 Do You Dip or Chew Tobacco: No Hx Alcohol Use: No Hx Substance Use: No Beliefs That Will Affect Care: None Communication Ability: Effective Review of Systems Constitutional: + fatigue, + malaise and + weakness; no fever and no chills Eyes: no problem reported Ear, Nose, Mouth, Throat: no problem reported Respiratory: + wheezing Cardiovascular: no problem reported Gastrointestinal: + nausea Genitourinary (Male): no problem reported Musculoskeletal: + joint pain ([place]) Integumentary: as per Subjective / HPI Neurologic: no problem reported Psychiatric: no problem reported Endocrine: no problem reported Hematologic / Lymphatic: no problem reported Allergy / Immunological: no problem reported Physical Exam 2 Vital Signs (Past 24 Hours): Last Vital Signs Temp 36.4 C L 10/20/18 12:00 Pulse 65 10/20/18 12:00 Resp 16 10/20/18 12:00 BP 109/60 10/20/18 12:00 Pulse Ox 97 10/20/18 12:00 Constitutional: WD/WN, vitals as above comfortable; no acute distress Eyes: PERRL, conjunctivae normal, anicteric sclerae ENMT: external ear and nose normal, oropharynx normal Neck: trachea midline, no thyromegaly neck nontender Respiratory: normal respiratory effort, lungs clear to auscultation normal percussion; does not use accessory muscles Cardiovascular: Rate/Rhythm: regular rate and regular rhythm Heart Sounds: normal S1 and normal S2; no gallop, no murmur and no cardiac rub Vessels: normal peripheral pulses; no JVD Gastrointestinal (Abdomen): normal bowel sounds, soft, nontender, no hepatosplenomegaly Musculoskeletal: no cyanosis or clubbing, extremities motor strength 5/5 Spine: thoracic spine normal to inspection and lumbar spine normal to inspection ; no cervical spinal tenderness Skin: normal turgor and + ulcer (Multiple superficial lower extremity ulcerations) Erythema and chronic venous stasis changes both lower extremities Neurologic: patellar DTR's 2+ bilat, sensation intact no focal motor deficits Psychiatric: A+Ox3, euthymic affect Orientation: cooperative Lymphatic: no cervical or axillary lymphadenopathy no inguinal lymphadenopathy Results & Data Laboratory Results Short CBC 10/20/18 Range/Units 05:48 WBC 3.61 L (4.8-10.8) K/uL Hgb 12.7 L (14.0-18.0) g/dL Hct 39.4 L (42-52) % Plt Count 162 (130-400) K/uL BMP 10/20/18 05:48 Sodium 138 Potassium 3.8 Chloride 106 Carbon Dioxide 26 BUN 12 D Creatinine 0.83 Glucose 130 H Calcium 8.5 Diagnostic Findings Microbiology 10/18/18 09:45 Ankle,Left Gram Stain - Final 10/18/18 09:45 Ankle,Left Deep Wound Culture - Preliminary Pseudomonas aeruginosa Staphylococcus aureus 10/18/18 09:45 Ankle,Right Gram Stain - Final 10/18/18 09:45 Ankle,Right Wound Culture - Preliminary Staphylococcus aureus 10/18/18 10:17 Blood Blood Culture - Preliminary No growth to date. 10/18/18 10:21 Blood Blood Culture - Preliminary No growth to date. SINGLE VIEW CHEST CLINICAL HISTORY: Sepsis. FINDINGS: An AP, portable, upright chest radiograph is compared to study dated 07/06/2018 and correlated with chest CT dated 04/12/2018. The examination is degraded by portable technique and patient rotation. The heart is top normal for projection. The mediastinal contour is within normal limits. There is mild bibasilar atelectasis. The lungs and pleural spaces are otherwise clear. No pneumothorax is seen. The bony thorax is grossly intact. IMPRESSION: No active disease in the chest. Electronically signed by: Emil Morelos M.D. 10/18/2018 10:29 AM Dictated: 10/18/18 1028 Transcribed: 10/18/18 1028
[2018-10-20] MEDS: WARFARIN SOD 5 MG TAB PO SCH (15:24)
--- NOTE | 2018-10-20 17:10 | Hospitalist Progress Note ---
Date of Service October 20, 2018 Assessment & Plan (1) Bilateral cellulitis of lower leg: Bilateral cellulitis of lower leg: Recurrent issue for patient - old records from prior admissions reviewed. Suppressive therapy discussed by ID during last admission but to be determined after pt completed course of IV antibiotics. Does not appear this was followed up as outpatient. For now, starting empiric daptomycin and ertapenem based on prior culture results May need to consider ID consult again this admission but will hold off for now pending clinical course/culture results Present on Admission?: Yes Wound culture: Staph aureus-identification is still pending and Pseudomonas wound infection History of MSSA Chronic ulcer of lower extremity: Consult wound care nurse for recommendations Appreciate ID input and recommendation Present on Admission?: Yes Chronic venous stasis dermatitis of both lower extremities: Present on Admission?: Yes Type 2 diabetes mellitus: A1c checked in 01.31 as outpatient Hold Metformin while admitted Insulin Sliding Scale - may need basal Lantus pending but will monitor BSG for now Diabetic diet BSG ACHS Present on Admission?: Yes GERD (gastroesophageal reflux disease): - Continue outpatient PPI therapy COPD (chronic obstructive pulmonary disease): - Continue Advair for maintenance - per pt, respiratory status at baseline. CXR negative - PRN albuterol nebs Present on Admission?: Yes Tobacco abuse: Smoking cessation counseling Nicotine patch ordered Present on Admission?: Yes Hypercoagulable state: On chronic anticoagulation - INR therapeutic on admission Continue home warfarin dosing/monitor daily INR Present on Admission?: Yes Chronic deep vein thrombosis (DVT): Pt on chronic anticoagulation with warfarin - INR today is 2.0. Venous duplex from last month showed no sonographic evidence of acute deep venous thrombosis identified in the right or left lower extremity but chronic thrombus/ scarring within the lower extremities bilaterally from the common femoral vein to the popliteal vein. Continue warfarin at home doing - monitor INR daily Present on Admission?: Yes (2) Ulcer of lower extremity: As above Staph aureus and Pseudomonas infection Continue IV Dapto and Zosyn for now Will DC Dapto if MRSA is (3) COPD (chronic obstructive pulmonary disease): - Continue Advair for maintenance - per pt, respiratory status at baseline. CXR negative - PRN albuterol nebs -Stable without any significant shortness of breath or wheezing Subjective 43 y/o male with a past medical history of recurrent LE cellulitis, venous insufficiency, chronic leg ulcers, DM II, COPD, hypercoagulable state - prothromin factor II mutation, chronic nonocclusive BLE DVT, GERD, tobacco use, chronic narcotic use, depression, and h/o MRSA who presents to the ED today with two days of worsening LE edema and pain c/w with prior episodes of LE cellulitis. 10/19 The patient was seen and examined the medical floor Complaints of nausea but no vomiting Leg pain is better Denies any other symptoms 10/20 Patient was seen and examined Complains to have some pain in the legs Denies any fever and/or chills No nausea no vomiting Constitutional: + sweats, + fatigue, + malaise, + weakness and + anorexia; no fever and no chills Respiratory: + wheezing (chronic); no cough, no dyspnea on exertion, no hemoptysis and no pain on inspiration Cardiovascular: + edema (progressive LE - per pt skin "feels tight" in bilateral feet but worse on left); no chest pain, no palpitations, no lightheadedness and no syncope Gastrointestinal: + nausea (at home but currently hungry); no abdominal pain, no vomiting, no hematemesis and no pain with swallowing Musculoskeletal: + back pain (chronic, unchanged) and + joint pain (bilateral lower extremity - left > right ankle in particular); no muscle atrophy Integumentary: + skin ulcer (bilateral ankle ulcerations - per pt "they're healing, it's just slow but it goes faster with antibiotics") Hematologic / Lymphatic: + problem reported Physical Exam 2 Vital Signs (Past 24 Hours): Last Vital Signs Temp 36.8 C 10/20/18 15:42 Pulse 71 10/20/18 15:42 Resp 16 10/20/18 15:42 BP 121/79 10/20/18 15:42 Pulse Ox 97 10/20/18 15:42 Physical Exam: No apparent distress at rest Constitutional: WD/WN, vitals as above Eyes: PERRL, conjunctivae normal, anicteric sclerae ENMT: external ear and nose normal, oropharynx normal Neck: trachea midline Respiratory: normal respiratory effort; no respiratory distress and no labored breathing Auscultation: + wheezes (occasional in upper lobes); no rales and no rhonchi Cardiovascular: Rate/Rhythm: regular rate and regular rhythm Heart Sounds: no gallop, no murmur and no cardiac rub Gastrointestinal (Abdomen): Inspection/Auscultation: + abdomen distended (mild ) and normal bowel sounds Percussion/Palpation: abdomen soft; abdomen nontender and no guarding Musculoskeletal: Head/Neck/Chest: normocephalic and head atraumatic Extremities: + extremities abnormal to inspection (Chronic ischemic changes bilaterally with chronic cellulitis and surrounding inflammation) Neurologic: Alert, awake and oriented x3 Psychiatric: A+Ox3, euthymic affect Results & Data Laboratory Results Short CBC 10/20/18 Range/Units 05:48 WBC 3.61 L (4.8-10.8) K/uL Hgb 12.7 L (14.0-18.0) g/dL Hct 39.4 L (42-52) % Plt Count 162 (130-400) K/uL BMP 10/20/18 05:48 Sodium 138 Potassium 3.8 Chloride 106 Carbon Dioxide 26 BUN 12 D Creatinine 0.83 Glucose 130 H Calcium 8.5 Medications Administered Current Inpatient Medications Acetaminophen (Tylenol) 650 mg PO Q4H PRN PRN Reason: pain/fever Stop: 11/17/18 15:56 Hydrocodone Bitart/Acetaminophen ([place] 5/325) 1 tab PO Q6H PRN PRN Reason: Pain Stop: 11/01/18 15:56 Last Admin: 10/20/18 12:52 Dose: 1 tab Dextrose (Dextrose 50%) 25 - 50 ml IV UD PRN; Protocol PRN Reason: Hypoglycemia Protocol Stop: 11/17/18 15:56 Docusate Sodium (Colace) 100 mg PO BID [facility] Stop: 11/17/18 20:59 Last Admin: 10/20/18 07:49 Dose: 100 mg Folic Acid (Folvite) 1 mg PO QAM [facility] Stop: 11/18/18 08:59 Last Admin: 10/20/18 07:48 Dose: 1 mg Furosemide (Lasix) 20 mg PO QAM [facility] Stop: 11/18/18 08:59 Last Admin: 10/20/18 07:49 Dose: 20 mg Gabapentin (Neurontin) 300 mg PO TID [facility] Stop: 11/17/18 20:59 Last Admin: 10/20/18 12:53 Dose: 300 mg Glucagon (Glucagen) 1 mg SQ UD PRN; Protocol PRN Reason: Hypoglycemia Protocol Stop: 11/17/18 15:56 Glucose (Glucose 40%) 15 - 30 gm PO UD PRN; Protocol PRN Reason: Hypoglycemia Protocol Stop: 11/17/18 15:56 Glucose (Dex4 Glucose) 4 - 8 tabs PO UD PRN; Protocol PRN Reason: Hypoglycemia Protocol Stop: 11/17/18 15:56 Hydroxyzine HCl (Vistaril) 50 mg PO HS PRN PRN Reason: Sleep Stop: 11/17/18 15:56 Last Admin: 10/20/18 01:04 Dose: 50 mg Daptomycin 350 mg/ Syringe 7 mls @ 3.5 mls/min IV Q24H [facility]; Protocol Stop: 10/29/18 08:59 Last Admin: 10/20/18 08:10 Dose: 3.5 mls/min Piperacillin Sod/Tazobactam (Sod 4.5 gm/ Dextrose) 120 mls @ 30 mls/hr IV Q8H [facility]; Protocol Stop: 10/29/18 21:59 Last Admin: 10/20/18 13:24 Dose: 30 mls/hr Insulin Aspart (Novolog Flexpen) 0 units SC ACHS [facility] Stop: 11/17/18 16:29 Last Admin: 10/20/18 12:47 Dose: 8 units Mirtazapine (Remeron) 15 mg PO HS [facility] Stop: 11/17/18 20:59 Last Admin: 10/19/18 20:42 Dose: 15 mg Miscellaneous (Carbohydrates For Hypoglycemia) 15 - 30 gm PO UD PRN PRN Reason: Hypoglycemia Treatment Stop: 11/17/18 15:56 Miscellaneous (Remove Nicoderm Patch) 1 ea N/A HS PRN PRN Reason: Insomnia Stop: 11/17/18 16:27 Miscellaneous Information (Consult) 1 ea N/A UD PRN PRN Reason: Consult Stop: 11/17/18 16:36 Miscellaneous Information (Consult) 1 ea N/A UD PRN PRN Reason: Consult Stop: 11/18/18 17:05 Morphine Sulfate (Morphine Sulfate) 2 mg IV Q4H PRN PRN Reason: Pain Stop: 11/02/18 00:00 Last Admin: 10/20/18 15:23 Dose: 2 mg Multivitamins (Multivitamin Tab) 1 tab PO QAM [facility] Stop: 11/18/18 08:59 Last Admin: 10/20/18 07:49 Dose: 1 tab Nicotine (Nicoderm Cq) 14 mg TD QAM PRN PRN Reason: Withdrawal Symptoms Stop: 11/17/18 15:56 Nutritional Formula (Prosource No Carb) 30 ml PO TID [facility] Stop: 11/18/18 13:59 Last Admin: 10/20/18 13:24 Dose: 30 ml Ondansetron HCl (Zofran) 4 mg IV Q6H PRN PRN Reason: Nausea Stop: 11/18/18 11:33 Pantoprazole Sodium (Protonix) 40 mg PO BID [facility] Stop: 11/17/18 20:59 Last Admin: 10/20/18 07:49 Dose: 40 mg Fluticasone/Salmeterol (Advair Diskus 500/50) 1 puffs INH BID [facility] Stop: 11/17/18 20:59 Last Admin: 10/20/18 07:50 Dose: 1 puffs Spironolactone (Aldactone) 50 mg PO QAM [facility] Stop: 11/18/18 08:59 Last Admin: 10/20/18 07:50 Dose: 50 mg Warfarin Sodium (Coumadin) 10 mg PO SuMoWeFr@1600 [facility] Stop: 11/18/18 15:59 Last Admin: 10/19/18 15:41 Dose: 10 mg Warfarin Sodium (Coumadin) 15 mg PO TuThSa@1600 [facility] Stop: 11/17/18 16:59 Last Admin: 10/20/18 15:24 Dose: 15 mg _ (1) Ulcer of lower extremity Laterality: left Non-pressure ulcer stage: unspecified non-pressure ulcer stage Qualified Code(s): L97.929 - Non-pressure chronic ulcer of unspecified part of left lower leg with unspecified severity (2) COPD (chronic obstructive pulmonary disease) COPD type: unspecified COPD Chronic bronchitis type: Emphysema type: Qualified Code(s): J44.9 - Chronic obstructive pulmonary disease, unspecified
[2018-10-20] MEDS: MIRTAZAPINE TAB 15 MG TAB PO SCH (21:35)
[2018-10-21] MEDS: MoRPHine SULFATE 4 MG/ML 1 ML CARP\\VIAL IV PRN ×5 (02:21→21:58)
[2018-10-21] MEDS: PIPERACILLIN/TAZOBACTAM 4.5 GM in DEXTROSE 5% 100 ML IV SCH ×3 (05:24→20:47)
[2018-10-21] MEDS: HYDROCODONE/ACETAMOPHEN 5/325MG TAB PO PRN ×3 (06:25→19:11)
[2018-10-21 07:48] LABS: Basophils # (auto) 0.04 K/uL (0-0.2); Basophils % (auto) 1.2 %; Eosinophils # (auto) 0.07 K/uL (0-0.5); Hematocrit (blood only) 40.4 % (42-52); Hemoglobin 13.3 g/dL (14.0-18.0); Immature Granulocytes # (auto) 0.01 K/uL (0.00-0.02); Immature Granulocytes % (auto) 0.3 %; Lymphocytes # (auto) 1.14 K/uL (1.2-3.4); Lymphocytes % (auto) 33.3 %; Mean Corpuscular Hgb Conc 32.9 g/dL (32-36); Mean Platelet Volume 9.6 fL (7.4-10.4); Monocytes # (auto) 0.23 K/uL (0.11-0.59); Monocytes % (auto) 6.7 %; Neutrophils # (auto) 1.93 K/uL (1.4-6.5); Neutrophils % (auto) 56.5 %; Platelet Count 180 K/uL (130-400); RDW Coefficient of Variation 17.6 % (11.5-14.5); RDW Standard Deviation 56.4 fL (36.4-46.3); Red Blood Count 4.59 M/uL (4.7-6.1); White Blood Count 3.42 K/uL (4.8-10.8)
[2018-10-21 07:56] LABS: INR 2.5 (0.9-1.1); Prothrombin Time 23.9 Seconds (9.0-12.0)
[2018-10-21 08:17] LABS: BUN Creatinine Ratio 17.9 (10-20); Calcium 9.2 mg/dl (8.5-10.1); Est GFR (African American) 124.6; Est GFR (Non-African American) 107.5; Magnesium 2.5 mg/dl (1.8-2.4); Potassium 4.1 mmol/L (3.5-5.1)
[2018-10-21] MEDS: SPIRONOLACTONE 25 MG TAB PO SCH (09:05)
[2018-10-21] MEDS: DAPTOmycin 350 MG in SYRINGE 0 ML IV SCH (09:05)
[2018-10-21] MEDS: DOCUSATE SODIUM 100 MG CAP PO SCH ×2 (09:06→20:46)
[2018-10-21] MEDS: FLUTICASONE/SALMETEROL (ADVAIR) 500/50 INH 14 PUFF INH SCH ×2 (09:06→20:45)
[2018-10-21] MEDS: GABAPENTIN 300 MG CAP PO SCH ×3 (09:06→20:46)
[2018-10-21] MEDS: PANTOprazole 40 MG TAB PO SCH ×2 (09:06→20:46)
[2018-10-21] MEDS: PROSOURCE NO CARB 30 ML/PKT PO SCH ×3 (09:07→20:46)
[2018-10-21] MEDS: FOLIC ACID 1 MG TAB PO SCH (09:07)
[2018-10-21] MEDS: MULTIVITAMIN TAB PO SCH (09:07)
[2018-10-21] MEDS: FUROSEMIDE 20 MG TAB PO SCH (09:08)
[2018-10-21] MEDS: INSULIN ASPART 100 UNITS/ML 3 ML PEN SC SCH ×4 (09:10→20:47)
--- NOTE | 2018-10-21 14:54 | Hospitalist Progress Note ---
Date of Service October 21, 2018 Assessment & Plan (1) Bilateral cellulitis of lower leg: Bilateral cellulitis of lower leg: Recurrent issue for patient - old records from prior admissions reviewed. Suppressive therapy discussed by ID during last admission but to be determined after pt completed course of IV antibiotics. Does not appear this was followed up as outpatient. For now, starting empiric daptomycin and ertapenem based on prior culture results May need to consider ID consult again this admission but will hold off for now pending clinical course/culture results Present on Admission?: Yes Wound culture: Staph aureus-identification is still pending and Pseudomonas wound infection History of MSSA Chronic ulcer of lower extremity: Consult wound care nurse for recommendations Will culture is growing MRSA Will await ID recommendation of antibiotic and duration Continue with wound care management as before Appreciate ID input and recommendation Present on Admission?: Yes Chronic venous stasis dermatitis of both lower extremities: Present on Admission?: Yes Type 2 diabetes mellitus: A1c checked in Jul. as outpatient Hold Metformin while admitted Insulin Sliding Scale - may need basal Lantus pending but will monitor BSG for now Diabetic diet BSG ACHS Present on Admission?: Yes GERD (gastroesophageal reflux disease): - Continue outpatient PPI therapy COPD (chronic obstructive pulmonary disease): - Continue Advair for maintenance - per pt, respiratory status at baseline. CXR negative - PRN albuterol nebs Present on Admission?: Yes Tobacco abuse: Smoking cessation counseling Nicotine patch ordered Present on Admission?: Yes Hypercoagulable state: On chronic anticoagulation - INR therapeutic on admission Continue home warfarin dosing/monitor daily INR Present on Admission?: Yes Chronic deep vein thrombosis (DVT): Pt on chronic anticoagulation with warfarin - INR today is 2.0. Venous duplex from last month showed no sonographic evidence of acute deep venous thrombosis identified in the right or left lower extremity but chronic thrombus/ scarring within the lower extremities bilaterally from the common femoral vein to the popliteal vein. Continue warfarin at home doing - monitor INR daily Present on Admission?: Yes (2) Ulcer of lower extremity: As above Staph aureus and Pseudomonas infection Continue IV Dapto and Zosyn for now Will DC Dapto if MRSA Like to have oral antibiotic for MRSA (3) COPD (chronic obstructive pulmonary disease): - Continue Advair for maintenance - per pt, respiratory status at baseline. CXR negative - PRN albuterol nebs -Stable without any significant shortness of breath or wheezing Likely to be discharged tomorrow on oral antibiotic Subjective 43 y/o male with a past medical history of recurrent LE cellulitis, venous insufficiency, chronic leg ulcers, DM II, COPD, hypercoagulable state - prothromin factor II mutation, chronic nonocclusive BLE DVT, GERD, tobacco use, chronic narcotic use, depression, and h/o MRSA who presents to the ED today with two days of worsening LE edema and pain c/w with prior episodes of LE cellulitis. 10/19 The patient was seen and examined the medical floor Complaints of nausea but no vomiting Leg pain is better Denies any other symptoms 10/20 Patient was seen and examined Complains to have some pain in the legs Denies any fever and/or chills No nausea no vomiting 10/21 Patient is seen and examined in medical floor He complains to have some pain in the legs Denies any fever and/or chills Constitutional: + sweats, + fatigue, + malaise, + weakness and + anorexia; no fever and no chills Respiratory: + wheezing (chronic); no cough, no dyspnea on exertion, no hemoptysis and no pain on inspiration Cardiovascular: + edema (progressive LE - per pt skin "feels tight" in bilateral feet but worse on left); no chest pain, no palpitations, no lightheadedness and no syncope Gastrointestinal: + nausea (at home but currently hungry); no abdominal pain, no vomiting, no hematemesis and no pain with swallowing Musculoskeletal: + back pain (chronic, unchanged) and + joint pain (bilateral lower extremity - left > right ankle in particular); no muscle atrophy Integumentary: + skin ulcer (bilateral ankle ulcerations - per pt "they're healing, it's just slow but it goes faster with antibiotics") Hematologic / Lymphatic: + problem reported Physical Exam 2 Vital Signs (Past 24 Hours): Last Vital Signs Temp 36.5 C 10/21/18 08:00 Pulse 72 10/21/18 09:04 Resp 17 10/21/18 08:00 BP 105/66 10/21/18 09:04 Pulse Ox 94 10/21/18 08:00 Physical Exam: Lying in bed comfortably Constitutional: WD/WN, vitals as above Eyes: PERRL, conjunctivae normal, anicteric sclerae ENMT: external ear and nose normal, oropharynx normal Neck: trachea midline Respiratory: normal respiratory effort; no respiratory distress and no labored breathing Auscultation: + wheezes (occasional in upper lobes); no rales and no rhonchi Cardiovascular: Rate/Rhythm: regular rate and regular rhythm Heart Sounds: no gallop, no murmur and no cardiac rub Gastrointestinal (Abdomen): Inspection/Auscultation: + abdomen distended (mild ) and normal bowel sounds Percussion/Palpation: abdomen soft; abdomen nontender and no guarding Musculoskeletal: Head/Neck/Chest: normocephalic and head atraumatic Extremities: + extremities abnormal to inspection (Chronic ischemic changes bilaterally with chronic cellulitis and surrounding inflammation) Neurologic: Alert, awake and oriented x3 Psychiatric: A+Ox3, euthymic affect Results & Data Laboratory Results Short CBC 10/21/18 Range/Units 06:50 WBC 3.42 L (4.8-10.8) K/uL Hgb 13.3 L (14.0-18.0) g/dL Hct 40.4 L (42-52) % Plt Count 180 (130-400) K/uL BMP 10/21/18 06:50 Sodium 136 Potassium 4.1 Chloride 103 Carbon Dioxide 26 BUN 15 Creatinine 0.82 Glucose 130 H Calcium 9.2 Medications Administered Current Inpatient Medications Acetaminophen (Tylenol) 650 mg PO Q4H PRN PRN Reason: pain/fever Stop: 11/17/18 15:56 Hydrocodone Bitart/Acetaminophen ([place] 5/325) 1 tab PO Q6H PRN PRN Reason: Pain Stop: 11/01/18 15:56 Last Admin: 10/21/18 12:41 Dose: 1 tab Dextrose (Dextrose 50%) 25 - 50 ml IV UD PRN; Protocol PRN Reason: Hypoglycemia Protocol Stop: 11/17/18 15:56 Docusate Sodium (Colace) 100 mg PO BID [facility] Stop: 11/17/18 20:59 Last Admin: 10/21/18 09:06 Dose: 100 mg Folic Acid (Folvite) 1 mg PO QAM [facility] Stop: 11/18/18 08:59 Last Admin: 10/21/18 09:07 Dose: 1 mg Furosemide (Lasix) 20 mg PO QAM [facility] Stop: 11/18/18 08:59 Last Admin: 10/21/18 09:08 Dose: 20 mg Gabapentin (Neurontin) 300 mg PO TID [facility] Stop: 11/17/18 20:59 Last Admin: 10/21/18 12:46 Dose: 300 mg Glucagon (Glucagen) 1 mg SQ UD PRN; Protocol PRN Reason: Hypoglycemia Protocol Stop: 11/17/18 15:56 Glucose (Glucose 40%) 15 - 30 gm PO UD PRN; Protocol PRN Reason: Hypoglycemia Protocol Stop: 11/17/18 15:56 Glucose (Dex4 Glucose) 4 - 8 tabs PO UD PRN; Protocol PRN Reason: Hypoglycemia Protocol Stop: 11/17/18 15:56 Hydroxyzine HCl (Vistaril) 50 mg PO HS PRN PRN Reason: Sleep Stop: 11/17/18 15:56 Last Admin: 10/20/18 21:20 Dose: 50 mg Daptomycin 350 mg/ Syringe 7 mls @ 3.5 mls/min IV Q24H [facility]; Protocol Stop: 10/29/18 08:59 Last Admin: 10/21/18 09:05 Dose: 3.5 mls/min Piperacillin Sod/Tazobactam (Sod 4.5 gm/ Dextrose) 120 mls @ 30 mls/hr IV Q8H [facility]; Protocol Stop: 10/29/18 21:59 Last Admin: 10/21/18 13:46 Dose: 30 mls/hr Insulin Aspart (Novolog Flexpen) 0 units SC ACHS [facility] Stop: 11/17/18 16:29 Last Admin: 10/21/18 12:44 Dose: 12 units Mirtazapine (Remeron) 15 mg PO HS [facility] Stop: 11/17/18 20:59 Last Admin: 10/20/18 21:35 Dose: 15 mg Miscellaneous (Carbohydrates For Hypoglycemia) 15 - 30 gm PO UD PRN PRN Reason: Hypoglycemia Treatment Stop: 11/17/18 15:56 Miscellaneous (Remove Nicoderm Patch) 1 ea N/A HS PRN PRN Reason: Insomnia Stop: 11/17/18 16:27 Miscellaneous Information (Consult) 1 ea N/A UD PRN PRN Reason: Consult Stop: 11/17/18 16:36 Miscellaneous Information (Consult) 1 ea N/A UD PRN PRN Reason: Consult Stop: 11/18/18 17:05 Morphine Sulfate (Morphine Sulfate) 2 mg IV Q4H PRN PRN Reason: Pain Stop: 11/02/18 00:00 Last Admin: 10/21/18 13:46 Dose: 2 mg Multivitamins (Multivitamin Tab) 1 tab PO QAM [facility] Stop: 11/18/18 08:59 Last Admin: 10/21/18 09:07 Dose: 1 tab Nicotine (Nicoderm Cq) 14 mg TD QAM PRN PRN Reason: Withdrawal Symptoms Stop: 11/17/18 15:56 Nutritional Formula (Prosource No Carb) 30 ml PO TID [facility] Stop: 11/18/18 13:59 Last Admin: 10/21/18 12:46 Dose: 30 ml Ondansetron HCl (Zofran) 4 mg IV Q6H PRN PRN Reason: Nausea Stop: 11/18/18 11:33 Pantoprazole Sodium (Protonix) 40 mg PO BID [facility] Stop: 11/17/18 20:59 Last Admin: 10/21/18 09:06 Dose: 40 mg Fluticasone/Salmeterol (Advair Diskus 500/50) 1 puffs INH BID [facility] Stop: 11/17/18 20:59 Last Admin: 10/21/18 09:06 Dose: 1 puffs Spironolactone (Aldactone) 50 mg PO QAM [facility] Stop: 11/18/18 08:59 Last Admin: 10/21/18 09:05 Dose: 50 mg Warfarin Sodium (Coumadin) 10 mg PO SuMoWeFr@1600 [facility] Stop: 11/18/18 15:59 Last Admin: 10/19/18 15:41 Dose: 10 mg Warfarin Sodium (Coumadin) 15 mg PO TuThSa@1600 [facility] Stop: 11/17/18 16:59 Last Admin: 10/20/18 15:24 Dose: 15 mg _ (1) Ulcer of lower extremity Laterality: left Non-pressure ulcer stage: unspecified non-pressure ulcer stage Qualified Code(s): L97.929 - Non-pressure chronic ulcer of unspecified part of left lower leg with unspecified severity (2) COPD (chronic obstructive pulmonary disease) COPD type: unspecified COPD Chronic bronchitis type: Emphysema type: Qualified Code(s): J44.9 - Chronic obstructive pulmonary disease, unspecified
[2018-10-21] MEDS: WARFARIN SOD 10 MG TAB PO SCH (15:57)
[2018-10-21] MEDS: MIRTAZAPINE TAB 15 MG TAB PO SCH (20:45)
[2018-10-22] MEDS: PIPERACILLIN/TAZOBACTAM 4.5 GM in DEXTROSE 5% 100 ML IV SCH ×3 (05:18→22:24)
[2018-10-22] MEDS: HYDROCODONE/ACETAMOPHEN 5/325MG TAB PO PRN ×2 (05:22→12:00)
[2018-10-22] MEDS: FLUTICASONE/SALMETEROL (ADVAIR) 500/50 INH 14 PUFF INH SCH ×2 (07:49→22:19)
[2018-10-22] MEDS: MoRPHine SULFATE 4 MG/ML 1 ML CARP\\VIAL IV PRN ×3 (07:49→17:16)
[2018-10-22] MEDS: DAPTOmycin 350 MG in SYRINGE 0 ML IV SCH (07:50)
[2018-10-22] MEDS: GABAPENTIN 300 MG CAP PO SCH ×3 (07:50→22:18)
[2018-10-22] MEDS: PANTOprazole 40 MG TAB PO SCH ×2 (07:50→22:24)
[2018-10-22] MEDS: SPIRONOLACTONE 25 MG TAB PO SCH (07:51)
[2018-10-22] MEDS: MULTIVITAMIN TAB PO SCH (07:51)
[2018-10-22] MEDS: FOLIC ACID 1 MG TAB PO SCH (07:51)
[2018-10-22] MEDS: PROSOURCE NO CARB 30 ML/PKT PO SCH ×3 (07:52→22:19)
[2018-10-22] MEDS: FUROSEMIDE 20 MG TAB PO SCH (07:52)
[2018-10-22] MEDS: DOCUSATE SODIUM 100 MG CAP PO SCH ×2 (07:52→22:18)
[2018-10-22] MEDS: INSULIN ASPART 100 UNITS/ML 3 ML PEN SC SCH ×4 (07:59→21:45)
[2018-10-22 08:57] LABS: INR 2.5 (0.9-1.1); Prothrombin Time 23.9 Seconds (9.0-12.0)
[2018-10-22 09:25] LABS: Creatinine Clr Calc Pharmacy 124.7 ml/min; Est GFR (African American) 113.8; Est GFR (Non-African American) 98.2
[2018-10-22] MEDS: ONDANSETRON INJ 2 MG/ML 2 ML VIAL IV PRN (16:13)
--- NOTE | 2018-10-22 17:19 | Hospitalist Progress Note ---
Date of Service October 22, 2018 Assessment & Plan (1) Bilateral cellulitis of lower leg: Bilateral cellulitis of lower leg: Recurrent issue for patient - old records from prior admissions reviewed. Suppressive therapy discussed by ID during last admission but to be determined after pt completed course of IV antibiotics. Does not appear this was followed up as outpatient. For now, starting empiric daptomycin and ertapenem based on prior culture results May need to consider ID consult again this admission but will hold off for now pending clinical course/culture results Present on Admission?: Yes Wound culture: Staph aureus-identification is still pending and Pseudomonas wound infection History of MSSA Chronic ulcer of lower extremity: Consult wound care nurse for recommendations Will culture is growing MRSA Will await ID recommendation of antibiotic and duration Continue with wound care management as before Appreciate ID input and recommendation Will need IV antibiotic for couple of weeks PICC line will be placed May need placement Present on Admission?: Yes Chronic venous stasis dermatitis of both lower extremities: Present on Admission?: Yes Type 2 diabetes mellitus: A1c checked in Jul. as outpatient Hold Metformin while admitted Insulin Sliding Scale - may need basal Lantus pending but will monitor BSG for now Diabetic diet BSG ACHS Present on Admission?: Yes GERD (gastroesophageal reflux disease): - Continue outpatient PPI therapy COPD (chronic obstructive pulmonary disease): - Continue Advair for maintenance - per pt, respiratory status at baseline. CXR negative - PRN albuterol nebs Present on Admission?: Yes Tobacco abuse: Smoking cessation counseling Nicotine patch ordered Present on Admission?: Yes Hypercoagulable state: On chronic anticoagulation - INR therapeutic on admission Continue home warfarin dosing/monitor daily INR Present on Admission?: Yes Chronic deep vein thrombosis (DVT): Pt on chronic anticoagulation with warfarin - INR today is 2.0. Venous duplex from last month showed no sonographic evidence of acute deep venous thrombosis identified in the right or left lower extremity but chronic thrombus/ scarring within the lower extremities bilaterally from the common femoral vein to the popliteal vein. Continue warfarin at home doing - monitor INR daily Present on Admission?: Yes (2) Ulcer of lower extremity: As above Staph aureus and Pseudomonas infection Continue IV Dapto and Zosyn for now Will DC Dapto if MRSA negative Discussed with ID-will require intravenous antibiotics for couple of weeks (3) COPD (chronic obstructive pulmonary disease): - Continue Advair for maintenance - per pt, respiratory status at baseline. CXR negative - PRN albuterol nebs -Stable without any significant shortness of breath or wheezing Will need placement to continue IV antibiotic Subjective 43 y/o male with a past medical history of recurrent LE cellulitis, venous insufficiency, chronic leg ulcers, DM II, COPD, hypercoagulable state - prothromin factor II mutation, chronic nonocclusive BLE DVT, GERD, tobacco use, chronic narcotic use, depression, and h/o MRSA who presents to the ED today with two days of worsening LE edema and pain c/w with prior episodes of LE cellulitis. 10/19 The patient was seen and examined the medical floor Complaints of nausea but no vomiting Leg pain is better Denies any other symptoms 10/20 Patient was seen and examined Complains to have some pain in the legs Denies any fever and/or chills No nausea no vomiting 10/21 Patient is seen and examined in medical floor He complains to have some pain in the legs Denies any fever and/or chills 10/22 Patient was seen and examined the medical floor Denies any symptoms Will need IV antibiotic Constitutional: + sweats, + fatigue, + malaise, + weakness and + anorexia; no fever and no chills Respiratory: + wheezing (chronic); no cough, no dyspnea on exertion, no hemoptysis and no pain on inspiration Cardiovascular: + edema (progressive LE - per pt skin "feels tight" in bilateral feet but worse on left); no chest pain, no palpitations, no lightheadedness and no syncope Gastrointestinal: + nausea (at home but currently hungry); no abdominal pain, no vomiting, no hematemesis and no pain with swallowing Musculoskeletal: + back pain (chronic, unchanged) and + joint pain (bilateral lower extremity - left > right ankle in particular); no muscle atrophy Integumentary: + skin ulcer (bilateral ankle ulcerations - per pt "they're healing, it's just slow but it goes faster with antibiotics") Hematologic / Lymphatic: + problem reported Physical Exam 2 Vital Signs (Past 24 Hours): Last Vital Signs Temp 36.5 C 10/22/18 16:23 Pulse 68 10/22/18 16:23 Resp 18 10/22/18 16:23 BP 118/76 10/22/18 16:23 Pulse Ox 93 10/22/18 16:23 Physical Exam: No apparent distress at rest Constitutional: WD/WN, vitals as above Eyes: PERRL, conjunctivae normal, anicteric sclerae ENMT: external ear and nose normal, oropharynx normal Neck: trachea midline Respiratory: normal respiratory effort; no respiratory distress and no labored breathing Auscultation: + wheezes (occasional in upper lobes); no rales and no rhonchi Cardiovascular: Rate/Rhythm: regular rate and regular rhythm Heart Sounds: no gallop, no murmur and no cardiac rub Gastrointestinal (Abdomen): Inspection/Auscultation: + abdomen distended (mild ) and normal bowel sounds Percussion/Palpation: abdomen soft; abdomen nontender and no guarding Musculoskeletal: Head/Neck/Chest: normocephalic and head atraumatic Extremities: + extremities abnormal to inspection (Chronic ischemic changes bilaterally with chronic cellulitis and surrounding inflammation) Psychiatric: A+Ox3, euthymic affect Results & Data Laboratory Results [facility] 10/22/18 08:37 Creatinine 0.94 Medications Administered Current Inpatient Medications Acetaminophen (Tylenol) 650 mg PO Q4H PRN PRN Reason: pain/fever Stop: 11/17/18 15:56 Hydrocodone Bitart/Acetaminophen ([place] 5/325) 1 tab PO Q6H PRN PRN Reason: Pain Stop: 11/01/18 15:56 Last Admin: 10/22/18 12:00 Dose: 1 tab Dextrose (Dextrose 50%) 25 - 50 ml IV UD PRN; Protocol PRN Reason: Hypoglycemia Protocol Stop: 11/17/18 15:56 Docusate Sodium (Colace) 100 mg PO BID [facility] Stop: 11/17/18 20:59 Last Admin: 10/22/18 07:52 Dose: 100 mg Folic Acid (Folvite) 1 mg PO QAM [facility] Stop: 11/18/18 08:59 Last Admin: 10/22/18 07:51 Dose: 1 mg Furosemide (Lasix) 20 mg PO QAM [facility] Stop: 11/18/18 08:59 Last Admin: 10/22/18 07:52 Dose: 20 mg Gabapentin (Neurontin) 300 mg PO TID [facility] Stop: 11/17/18 20:59 Last Admin: 10/22/18 13:06 Dose: 300 mg Glucagon (Glucagen) 1 mg SQ UD PRN; Protocol PRN Reason: Hypoglycemia Protocol Stop: 11/17/18 15:56 Glucose (Glucose 40%) 15 - 30 gm PO UD PRN; Protocol PRN Reason: Hypoglycemia Protocol Stop: 11/17/18 15:56 Glucose (Dex4 Glucose) 4 - 8 tabs PO UD PRN; Protocol PRN Reason: Hypoglycemia Protocol Stop: 11/17/18 15:56 Hydroxyzine HCl (Vistaril) 50 mg PO HS PRN PRN Reason: Sleep Stop: 11/17/18 15:56 Last Admin: 10/21/18 20:45 Dose: 50 mg Daptomycin 350 mg/ Syringe 7 mls @ 3.5 mls/min IV Q24H [facility]; Protocol Stop: 10/29/18 08:59 Last Admin: 10/22/18 07:50 Dose: 3.5 mls/min Piperacillin Sod/Tazobactam (Sod 4.5 gm/ Dextrose) 120 mls @ 30 mls/hr IV Q8H [facility]; Protocol Stop: 10/29/18 21:59 Last Admin: 10/22/18 13:05 Dose: 30 mls/hr Insulin Aspart (Novolog Flexpen) 0 units SC ACHS [facility] Stop: 11/17/18 16:29 Last Admin: 10/22/18 13:06 Dose: 13 units Mirtazapine (Remeron) 15 mg PO HS [facility] Stop: 11/17/18 20:59 Last Admin: 10/21/18 20:45 Dose: 15 mg Miscellaneous (Carbohydrates For Hypoglycemia) 15 - 30 gm PO UD PRN PRN Reason: Hypoglycemia Treatment Stop: 11/17/18 15:56 Miscellaneous (Remove Nicoderm Patch) 1 ea N/A HS PRN PRN Reason: Insomnia Stop: 11/17/18 16:27 Miscellaneous Information (Consult) 1 ea N/A UD PRN PRN Reason: Consult Stop: 11/17/18 16:36 Miscellaneous Information (Consult) 1 ea N/A UD PRN PRN Reason: Consult Stop: 11/18/18 17:05 Morphine Sulfate (Morphine Sulfate) 2 mg IV Q4H PRN PRN Reason: Pain Stop: 11/02/18 00:00 Last Admin: 10/22/18 13:07 Dose: 2 mg Multivitamins (Multivitamin Tab) 1 tab PO QAM [facility] Stop: 11/18/18 08:59 Last Admin: 10/22/18 07:51 Dose: 1 tab Nicotine (Nicoderm Cq) 14 mg TD QAM PRN PRN Reason: Withdrawal Symptoms Stop: 11/17/18 15:56 Nutritional Formula (Prosource No Carb) 30 ml PO TID [facility] Stop: 11/18/18 13:59 Last Admin: 10/22/18 13:06 Dose: 30 ml Ondansetron HCl (Zofran) 4 mg IV Q6H PRN PRN Reason: Nausea Stop: 11/18/18 11:33 Last Admin: 10/22/18 16:13 Dose: 4 mg Pantoprazole Sodium (Protonix) 40 mg PO BID [facility] Stop: 11/17/18 20:59 Last Admin: 10/22/18 07:50 Dose: 40 mg Fluticasone/Salmeterol (Advair Diskus 500/50) 1 puffs INH BID [facility] Stop: 11/17/18 20:59 Last Admin: 10/22/18 07:49 Dose: 1 puffs Spironolactone (Aldactone) 50 mg PO QAM [facility] Stop: 11/18/18 08:59 Last Admin: 10/22/18 07:51 Dose: 50 mg Warfarin Sodium (Coumadin) 10 mg PO [id number]@1600 [facility] Stop: 11/18/18 15:59 Last Admin: 10/21/18 15:57 Dose: 10 mg Warfarin Sodium (Coumadin) 15 mg PO [id number]@1600 [facility] Stop: 11/17/18 16:59 Last Admin: 10/20/18 15:24 Dose: 15 mg _ (1) Ulcer of lower extremity Laterality: left Non-pressure ulcer stage: unspecified non-pressure ulcer stage Qualified Code(s): L97.929 - Non-pressure chronic ulcer of unspecified part of left lower leg with unspecified severity (2) COPD (chronic obstructive pulmonary disease) COPD type: unspecified COPD Chronic bronchitis type: Emphysema type: Qualified Code(s): J44.9 - Chronic obstructive pulmonary disease, unspecified
[2018-10-22] MEDS: WARFARIN SOD 10 MG TAB PO SCH (18:45)
[2018-10-22] MEDS ORDERED: PROMETHAZINE HCL 12.5 MG in SODIUM CHLORIDE 0.9% 50 ML IV STA (20:42)
[2018-10-22] MEDS: MIRTAZAPINE TAB 15 MG TAB PO SCH (22:18)
[2018-10-23] MEDS: HYDROCODONE/ACETAMOPHEN 5/325MG TAB PO PRN ×3 (03:07→15:59)
[2018-10-23] MEDS: PIPERACILLIN/TAZOBACTAM 4.5 GM in DEXTROSE 5% 100 ML IV SCH ×3 (05:43→21:09)
[2018-10-23] MEDS: MoRPHine SULFATE 4 MG/ML 1 ML CARP\\VIAL IV PRN ×5 (05:49→22:11)
[2018-10-23] MEDS: PROSOURCE NO CARB 30 ML/PKT PO SCH ×3 (08:21→21:12)
[2018-10-23] MEDS: INSULIN ASPART 100 UNITS/ML 3 ML PEN SC SCH ×4 (08:32→21:10)
[2018-10-23] MEDS: ONDANSETRON INJ 2 MG/ML 2 ML VIAL IV PRN ×2 (08:34→14:32)
[2018-10-23] MEDS: FLUTICASONE/SALMETEROL (ADVAIR) 500/50 INH 14 PUFF INH SCH ×2 (08:34→21:10)
[2018-10-23] MEDS: DAPTOmycin 350 MG in SYRINGE 0 ML IV SCH (08:34)
[2018-10-23] MEDS: PANTOprazole 40 MG TAB PO SCH ×2 (08:36→21:13)
[2018-10-23] MEDS: FUROSEMIDE 20 MG TAB PO SCH (08:36)
[2018-10-23] MEDS: MULTIVITAMIN TAB PO SCH (08:36)
[2018-10-23] MEDS: FOLIC ACID 1 MG TAB PO SCH (08:36)
[2018-10-23] MEDS: DOCUSATE SODIUM 100 MG CAP PO SCH ×2 (08:36→21:12)
[2018-10-23] MEDS: GABAPENTIN 300 MG CAP PO SCH ×3 (08:37→21:12)
[2018-10-23] MEDS: SPIRONOLACTONE 25 MG TAB PO SCH (08:37)
[2018-10-23 08:58] LABS: Creatinine Clr Calc Pharmacy 124.7 ml/min; Est GFR (African American) 113.8; Est GFR (Non-African American) 98.2
[2018-10-23] MEDS: SODIUM CHLORIDE 0.9% 1000ML 1,000 ML IV SCH ×2 (09:01→23:42)
[2018-10-23 13:07] LABS: INR 1.6 (0.9-1.1); Prothrombin Time 15.6 Seconds (9.0-12.0)
[2018-10-23] MEDS: WARFARIN SOD 5 MG TAB PO SCH (16:00)
--- NOTE | 2018-10-23 16:15 | Hospitalist Progress Note ---
Date of Service October 23, 2018 Assessment & Plan (1) Bilateral cellulitis of lower leg: Bilateral cellulitis of lower leg: Recurrent issue for patient - old records from prior admissions reviewed. Suppressive therapy discussed by ID during last admission but to be determined after pt completed course of IV antibiotics. Does not appear this was followed up as outpatient. For now, starting empiric daptomycin and ertapenem based on prior culture results May need to consider ID consult again this admission but will hold off for now pending clinical course/culture results Present on Admission?: Yes Wound culture: Staph aureus-identification is still pending and Pseudomonas wound infection History of MSSA Chronic ulcer of lower extremity: Consult wound care nurse for recommendations Will culture is growing MRSA Continue with wound care management as before Appreciate ID input and recommendation Will need IV antibiotic for couple of weeks PICC line will be placed May need placement Has been on intravenous daptomycin and Zosyn Duration of antibiotic as per ID recommendation Likely to be transferred to skilled care facility tomorrow Present on Admission?: Yes Chronic venous stasis dermatitis of both lower extremities: Present on Admission?: Yes Type 2 diabetes mellitus: A1c checked in 01.31 as outpatient Hold Metformin while admitted Insulin Sliding Scale - may need basal Lantus pending but will monitor BSG for now Diabetic diet BSG ACHS Present on Admission?: Yes GERD (gastroesophageal reflux disease): - Continue outpatient PPI therapy COPD (chronic obstructive pulmonary disease): - Continue Advair for maintenance - per pt, respiratory status at baseline. CXR negative - PRN albuterol nebs Present on Admission?: Yes Tobacco abuse: Smoking cessation counseling Nicotine patch ordered Present on Admission?: Yes Hypercoagulable state: On chronic anticoagulation - INR therapeutic on admission Continue home warfarin dosing/monitor daily INR Present on Admission?: Yes Chronic deep vein thrombosis (DVT): Pt on chronic anticoagulation with warfarin - INR today is 2.0. Venous duplex from last month showed no sonographic evidence of acute deep venous thrombosis identified in the right or left lower extremity but chronic thrombus/ scarring within the lower extremities bilaterally from the common femoral vein to the popliteal vein. Continue warfarin at home doing - monitor INR daily Present on Admission?: Yes (2) Ulcer of lower extremity: As above Staph aureus-MRSA and Pseudomonas infection Continue IV Dapto and Zosyn for now Discussed with ID-will require intravenous antibiotics for couple of weeks (3) COPD (chronic obstructive pulmonary disease): - Continue Advair for maintenance - per pt, respiratory status at baseline. CXR negative - PRN albuterol nebs -Stable without any significant shortness of breath or wheezing Has had fever this morning with nausea and vomiting Has been having diarrhea likely secondary to antibiotic Recheck stool for C. difficile colitis Subjective 43 y/o male with a past medical history of recurrent LE cellulitis, venous insufficiency, chronic leg ulcers, DM II, COPD, hypercoagulable state - prothromin factor II mutation, chronic nonocclusive BLE DVT, GERD, tobacco use, chronic narcotic use, depression, and h/o MRSA who presents to the ED today with two days of worsening LE edema and pain c/w with prior episodes of LE cellulitis. 10/19 The patient was seen and examined the medical floor Complaints of nausea but no vomiting Leg pain is better Denies any other symptoms 10/20 Patient was seen and examined Complains to have some pain in the legs Denies any fever and/or chills No nausea no vomiting 10/21 Patient is seen and examined in medical floor He complains to have some pain in the legs Denies any fever and/or chills 10/22 Patient was seen and examined the medical floor Denies any symptoms Will need IV antibiotic 10/23 The patient was seen and examined the medical floor He has had fever this morning with nausea and vomiting He also complains of diarrhea Leg pain seems to be stable Constitutional: + fever, + sweats, + fatigue, + malaise, + weakness and + anorexia; no chills Respiratory: + wheezing (chronic); no cough, no dyspnea on exertion, no hemoptysis and no pain on inspiration Cardiovascular: + edema (progressive LE - per pt skin "feels tight" in bilateral feet but worse on left); no chest pain, no palpitations, no lightheadedness and no syncope Gastrointestinal: + nausea (at home but currently hungry); no abdominal pain, no vomiting, no hematemesis and no pain with swallowing Musculoskeletal: + back pain (chronic, unchanged) and + joint pain (bilateral lower extremity - left > right ankle in particular); no muscle atrophy Integumentary: + skin ulcer (bilateral ankle ulcerations - per pt "they're healing, it's just slow but it goes faster with antibiotics") Hematologic / Lymphatic: + problem reported Physical Exam 2 Vital Signs (Past 24 Hours): Last Vital Signs Temp 37.1 C 10/23/18 15:00 Pulse 87 10/23/18 15:00 Resp 18 10/23/18 15:00 BP 115/73 10/23/18 15:00 Pulse Ox 95 10/23/18 15:00 Physical Exam: No apparent distress at rest Constitutional: WD/WN, vitals as above Eyes: PERRL, conjunctivae normal, anicteric sclerae ENMT: external ear and nose normal, oropharynx normal Neck: trachea midline Respiratory: normal respiratory effort; no respiratory distress and no labored breathing Auscultation: + wheezes (occasional in upper lobes); no rales and no rhonchi Cardiovascular: Rate/Rhythm: regular rate and regular rhythm Heart Sounds: no gallop, no murmur and no cardiac rub Gastrointestinal (Abdomen): Inspection/Auscultation: + abdomen distended (mild ) and normal bowel sounds Percussion/Palpation: abdomen soft; abdomen nontender and no guarding Musculoskeletal: Head/Neck/Chest: normocephalic and head atraumatic Extremities: + extremities abnormal to inspection (Chronic ischemic changes bilaterally with chronic cellulitis and surrounding inflammation) Neurologic: Alert, awake and oriented x3. No focal motor deficit Psychiatric: A+Ox3, euthymic affect Results & Data Laboratory Results [facility] 10/23/18 08:02 Creatinine 0.94 Medications Administered Current Inpatient Medications Acetaminophen (Tylenol) 650 mg PO Q4H PRN PRN Reason: pain/fever Stop: 11/17/18 15:56 Hydrocodone Bitart/Acetaminophen ([place] 5/325) 1 tab PO Q6H PRN PRN Reason: Pain Stop: 11/01/18 15:56 Last Admin: 10/23/18 15:59 Dose: 1 tab Dextrose (Dextrose 50%) 25 - 50 ml IV UD PRN; Protocol PRN Reason: Hypoglycemia Protocol Stop: 11/17/18 15:56 Docusate Sodium (Colace) 100 mg PO BID [facility] Stop: 11/17/18 20:59 Last Admin: 10/23/18 08:36 Dose: 100 mg Folic Acid (Folvite) 1 mg PO QAM [facility] Stop: 11/18/18 08:59 Last Admin: 10/23/18 08:36 Dose: 1 mg Furosemide (Lasix) 20 mg PO QAM [facility] Stop: 11/18/18 08:59 Last Admin: 10/23/18 08:36 Dose: 20 mg Gabapentin (Neurontin) 300 mg PO TID [facility] Stop: 11/17/18 20:59 Last Admin: 10/23/18 14:23 Dose: 300 mg Glucagon (Glucagen) 1 mg SQ UD PRN; Protocol PRN Reason: Hypoglycemia Protocol Stop: 11/17/18 15:56 Glucose (Glucose 40%) 15 - 30 gm PO UD PRN; Protocol PRN Reason: Hypoglycemia Protocol Stop: 11/17/18 15:56 Glucose (Dex4 Glucose) 4 - 8 tabs PO UD PRN; Protocol PRN Reason: Hypoglycemia Protocol Stop: 11/17/18 15:56 Hydroxyzine HCl (Vistaril) 50 mg PO HS PRN PRN Reason: Sleep Stop: 11/17/18 15:56 Last Admin: 10/21/18 20:45 Dose: 50 mg Daptomycin 350 mg/ Syringe 7 mls @ 3.5 mls/min IV Q24H [facility]; Protocol Stop: 10/29/18 08:59 Last Admin: 10/23/18 08:34 Dose: 3.5 mls/min Piperacillin Sod/Tazobactam (Sod 4.5 gm/ Dextrose) 120 mls @ 30 mls/hr IV Q8H [facility]; Protocol Stop: 10/29/18 21:59 Last Admin: 10/23/18 14:23 Dose: 30 mls/hr Sodium Chloride (Nss 1000ml) 1,000 mls @ 80 mls/hr IV .[id number] [facility] Stop: 10/24/18 22:14 Last Admin: 10/23/18 09:01 Dose: 80 mls/hr Insulin Aspart (Novolog Flexpen) 0 units SC ACHS [facility] Stop: 11/17/18 16:29 Last Admin: 10/23/18 11:40 Dose: 10 units Mirtazapine (Remeron) 15 mg PO HS [facility] Stop: 11/17/18 20:59 Last Admin: 10/22/18 22:18 Dose: 15 mg Miscellaneous (Carbohydrates For Hypoglycemia) 15 - 30 gm PO UD PRN PRN Reason: Hypoglycemia Treatment Stop: 11/17/18 15:56 Miscellaneous (Remove Nicoderm Patch) 1 ea N/A HS PRN PRN Reason: Insomnia Stop: 11/17/18 16:27 Miscellaneous Information (Consult) 1 ea N/A UD PRN PRN Reason: Consult Stop: 11/17/18 16:36 Miscellaneous Information (Consult) 1 ea N/A UD PRN PRN Reason: Consult Stop: 11/18/18 17:05 Morphine Sulfate (Morphine Sulfate) 2 mg IV Q4H PRN PRN Reason: Pain Stop: 11/02/18 00:00 Last Admin: 10/23/18 14:23 Dose: 2 mg Multivitamins (Multivitamin Tab) 1 tab PO QAM [facility] Stop: 11/18/18 08:59 Last Admin: 10/23/18 08:36 Dose: 1 tab Nicotine (Nicoderm Cq) 14 mg TD QAM PRN PRN Reason: Withdrawal Symptoms Stop: 11/17/18 15:56 Nutritional Formula (Prosource No Carb) 30 ml PO TID [facility] Stop: 11/18/18 13:59 Last Admin: 10/23/18 14:23 Dose: Not Given Ondansetron HCl (Zofran) 4 mg IV Q6H PRN PRN Reason: Nausea Stop: 11/18/18 11:33 Last Admin: 10/23/18 14:32 Dose: 4 mg Pantoprazole Sodium (Protonix) 40 mg PO BID [facility] Stop: 11/17/18 20:59 Last Admin: 10/23/18 08:36 Dose: 40 mg Fluticasone/Salmeterol (Advair Diskus 500/50) 1 puffs INH BID [facility] Stop: 11/17/18 20:59 Last Admin: 10/23/18 08:34 Dose: 1 puffs Spironolactone (Aldactone) 50 mg PO QAM [facility] Stop: 11/18/18 08:59 Last Admin: 10/23/18 08:37 Dose: 50 mg Warfarin Sodium (Coumadin) 10 mg PO [id number]@1600 [facility] Stop: 11/18/18 15:59 Last Admin: 10/22/18 18:45 Dose: 10 mg Warfarin Sodium (Coumadin) 15 mg PO [id number]@1600 [facility] Stop: 11/17/18 16:59 Last Admin: 10/23/18 16:00 Dose: 15 mg _ (1) Ulcer of lower extremity Laterality: left Non-pressure ulcer stage: unspecified non-pressure ulcer stage Qualified Code(s): L97.929 - Non-pressure chronic ulcer of unspecified part of left lower leg with unspecified severity (2) COPD (chronic obstructive pulmonary disease) COPD type: unspecified COPD Chronic bronchitis type: Emphysema type: Qualified Code(s): J44.9 - Chronic obstructive pulmonary disease, unspecified
[2018-10-23] MEDS: MIRTAZAPINE TAB 15 MG TAB PO SCH (21:13)
[2018-10-24] MEDS: HYDROCODONE/ACETAMOPHEN 5/325MG TAB PO PRN ×3 (03:15→14:42)
[2018-10-24] MEDS: PIPERACILLIN/TAZOBACTAM 4.5 GM in DEXTROSE 5% 100 ML IV SCH ×3 (05:25→21:22)
[2018-10-24] MEDS: MoRPHine SULFATE 4 MG/ML 1 ML CARP\\VIAL IV PRN ×2 (05:25→10:36)
[2018-10-24 07:52] LABS: Basophils # (auto) 0.02 K/uL (0-0.2); Basophils % (auto) 0.8 %; Eosinophils # (auto) 0.03 K/uL (0-0.5); Eosinophils % (auto) 1.3 %; Hematocrit (blood only) 39.3 % (42-52); Hemoglobin 12.9 g/dL (14.0-18.0); Immature Granulocytes # (auto) 0.01 K/uL (0.00-0.02); Immature Granulocytes % (auto) 0.4 %; Lymphocytes # (auto) 0.76 K/uL (1.2-3.4); Lymphocytes % (auto) 31.9 %; Mean Corpuscular Hgb Conc 32.8 g/dL (32-36); Mean Corpuscular Volume 87.5 fL (80-100); Mean Platelet Volume 9.7 fL (7.4-10.4); Monocytes # (auto) 0.25 K/uL (0.11-0.59); Monocytes % (auto) 10.5 %; Neutrophils # (auto) 1.31 K/uL (1.4-6.5); Neutrophils % (auto) 55.1 %; Platelet Count 147 K/uL (130-400); RDW Coefficient of Variation 17.5 % (11.5-14.5); RDW Standard Deviation 56.3 fL (36.4-46.3); Red Blood Count 4.49 M/uL (4.7-6.1); White Blood Count 2.38 K/uL (4.8-10.8)
[2018-10-24 08:15] LABS: Albumin Level 2.8 gm/dl (3.4-5.0); BUN Creatinine Ratio 12.5 (10-20); Calcium 8.3 mg/dl (8.5-10.1); Creatinine Clr Calc Pharmacy 154.3 ml/min; Est GFR (African American) 128.6; Potassium 3.6 mmol/L (3.5-5.1)
[2018-10-24 08:18] LABS: Albumin Globulin Ratio 0.6 (0.9-2); Bilirubin,Total 0.5 mg/dl (0.2-1); Globulin 4.5 gm/dl (2.5-4.0); Total Protein 7.3 gm/dl (6.4-8.2)
[2018-10-24] MEDS: MULTIVITAMIN TAB PO SCH (09:03)
[2018-10-24] MEDS: GABAPENTIN 300 MG CAP PO SCH ×3 (09:03→21:24)
[2018-10-24] MEDS: DOCUSATE SODIUM 100 MG CAP PO SCH ×2 (09:03→21:23)
[2018-10-24] MEDS: PANTOprazole 40 MG TAB PO SCH ×2 (09:04→21:25)
[2018-10-24] MEDS: PROSOURCE NO CARB 30 ML/PKT PO SCH ×3 (09:04→21:25)
[2018-10-24] MEDS: FOLIC ACID 1 MG TAB PO SCH (09:05)
[2018-10-24] MEDS: FUROSEMIDE 20 MG TAB PO SCH (09:06)
[2018-10-24] MEDS: DAPTOmycin 350 MG in SYRINGE 0 ML IV SCH (09:06)
[2018-10-24] MEDS: SPIRONOLACTONE 25 MG TAB PO SCH (09:07)
[2018-10-24] MEDS: FLUTICASONE/SALMETEROL (ADVAIR) 500/50 INH 14 PUFF INH SCH ×2 (09:08→21:23)
[2018-10-24] MEDS: INSULIN ASPART 100 UNITS/ML 3 ML PEN SC SCH ×4 (09:11→21:24)
[2018-10-24 10:24] LABS: INR 1.7 (0.9-1.1); Prothrombin Time 16.4 Seconds (9.0-12.0)
[2018-10-24] MEDS: SODIUM CHLORIDE 0.9% 1000ML 1,000 ML IV SCH (12:14)
--- NOTE | 2018-10-24 16:18 | Infectious Disease Progress Nt ---
Date of Service October 24, 2018 Assessment & Plan (1) Bilateral cellulitis of lower leg: Recurrent bilateral lower extremity cellulitis in the setting of chronic venous stasis disease, lymphedema, chronic leg ulcerations with positive cultures for methicillin sensitive staph aureus and pseudomonas aeruginosa. Patient to be continued on current antibiotics for now, will be difficult to treat MRSA infection with oral antibiotics given allergies and Remeron use. Could use oral ciprofloxacin for treatment of pseudomonas aeruginosa. Will discuss further with hospitalist service. Will follow. (2) Pseudomonas aeruginosa infection: (3) MSSA (methicillin susceptible Staphylococcus aureus) infection: Subjective Patient seen in follow-up for bilateral lower extremity cellulitis and leg ulcerations. Patient notices some improvement, pain has lessened, no fever or chills. Redness improved. Tolerating antibiotic without apparent difficulty. Review of Systems All systems reviewed & are unremarkable except as noted in HPI & below Physical Exam Vital Signs (Past 24 Hours): Last Vital Signs Temp 36.5 C 10/24/18 15:00 Pulse 60 10/24/18 15:00 Resp 20 10/24/18 15:00 BP 109/71 10/24/18 15:00 Pulse Ox 98 10/24/18 15:00 Constitutional: WD/WN, vitals as above comfortable; no acute distress Eyes: PERRL, conjunctivae normal, anicteric sclerae ENMT: external ear and nose normal, oropharynx normal Neck: trachea midline, no thyromegaly neck nontender Respiratory: normal respiratory effort, lungs clear to auscultation normal percussion; does not use accessory muscles Cardiovascular: Rate/Rhythm: regular rate and regular rhythm Heart Sounds: normal S1 and normal S2; no gallop, no murmur and no cardiac rub Vessels: normal peripheral pulses; no JVD Gastrointestinal (Abdomen): normal bowel sounds, soft, nontender, no hepatosplenomegaly Musculoskeletal: no cyanosis or clubbing, extremities motor strength 5/5 Spine: thoracic spine normal to inspection and lumbar spine normal to inspection; no cervical spinal tenderness Skin: normal turgor and + ulcer (Multiple superficial lower extremity ulcerations) Neurologic: patellar DTR's 2+ bilat, sensation intact no focal motor deficits Psychiatric: A+Ox3, euthymic affect Orientation: cooperative Lymphatic: no cervical or axillary lymphadenopathy no inguinal lymphadenopathy Results & Data Laboratory Results Laboratory Results - last 48 hr 0210/22/18 10/23/18 16:42 19:48 07:10 WBC RBC Hgb Hct MCV MCH MCHC RDW Std Deviation RDW Coeff of Kip Plt Count MPV Immature Gran % (Auto) Neut % (Auto) Lymph % (Auto) Fountain % (Auto) Eos % (Auto) Baso % (Auto) Immature Gran # (Auto) Neut # (Auto) Lymph # (Auto) Fountain # (Auto) Eos # (Auto) Baso # (Auto) PT INR Sodium Potassium Chloride Carbon Dioxide Anion Gap BUN Creatinine Est Cr Clr Drug Dosing Est GFR ( Amer) Est GFR (Non-Af Amer) BUN/Creatinine Ratio Glucose POC Glucose 117 H 136 H 131 H Calcium Total Bilirubin AST ALT Alkaline Phosphatase Total Creatine Kinase Total Protein Albumin Globulin Albumin/Globulin Ratio Stl C. diff Tox B Gene 10/23/18 10/23/18 10/23/18 08:02 11:24 12:47 WBC RBC Hgb Hct MCV MCH MCHC RDW Std Deviation RDW Coeff of Kip Plt Count MPV Immature Gran % (Auto) Neut % (Auto) Lymph % (Auto) Fountain % (Auto) Eos % (Auto) Baso % (Auto) Immature Gran # (Auto) Neut # (Auto) Lymph # (Auto) Fountain # (Auto) Eos # (Auto) Baso # (Auto) PT 15.6 H INR 1.6 H Sodium Potassium Chloride Carbon Dioxide Anion Gap BUN Creatinine 0.94 Est Cr Clr Drug Dosing 124.7 Est GFR ( Amer) 113.8 Est GFR (Non-Af Amer) 98.2 BUN/Creatinine Ratio Glucose POC Glucose 134 H Calcium Total Bilirubin AST ALT Alkaline Phosphatase Total Creatine Kinase Total Protein Albumin Globulin Albumin/Globulin Ratio Stl C. diff Tox B Gene 10/23/18 10/23/18 10/23/18 16:47 17:40 20:20 WBC RBC Hgb Hct MCV MCH MCHC RDW Std Deviation RDW Coeff of Kip Plt Count MPV Immature Gran % (Auto) Neut % (Auto) Lymph % (Auto) Fountain % (Auto) Eos % (Auto) Baso % (Auto) Immature Gran # (Auto) Neut # (Auto) Lymph # (Auto) Fountain # (Auto) Eos # (Auto) Baso # (Auto) PT INR Sodium Potassium Chloride Carbon Dioxide Anion Gap BUN Creatinine Est Cr Clr Drug Dosing Est GFR ( Amer) Est GFR (Non-Af Amer) BUN/Creatinine Ratio Glucose POC Glucose 108 H 179 H Calcium Total Bilirubin AST ALT Alkaline Phosphatase Total Creatine Kinase Total Protein Albumin Globulin Albumin/Globulin Ratio Stl C. diff Tox B Gene Neg C.diff Toxin B 10/24/18 10/24/18 10/24/18 07:30 07:30 07:50 WBC 2.38 L RBC 4.49 L Hgb 12.9 L Hct 39.3 L MCV 87.5 MCH 28.7 MCHC 32.8 RDW Std Deviation 56.3 H RDW Coeff of Kip 17.5 H Plt Count 147 MPV 9.7 Immature Gran % (Auto) 0.4 Neut % (Auto) 55.1 Lymph % (Auto) 31.9 Fountain % (Auto) 10.5 Eos % (Auto) 1.3 Baso % (Auto) 0.8 Immature Gran # (Auto) 0.01 Neut # (Auto) 1.31 L Lymph # (Auto) 0.76 L Fountain # (Auto) 0.25 Eos # (Auto) 0.03 Baso # (Auto) 0.02 PT INR Sodium 139 Potassium 3.6 Chloride 110 H Carbon Dioxide 24 Anion Gap 4.0 BUN 10 Creatinine 0.76 Est Cr Clr Drug Dosing 154.3 Est GFR ( Amer) 128.6 Est GFR (Non-Af Amer) 111.0 BUN/Creatinine Ratio 12.5 Glucose 130 H POC Glucose 135 H Calcium 8.3 L Total Bilirubin 0.5 AST 40 H ALT 66 Alkaline Phosphatase 66 Total Creatine Kinase 25 L Total Protein 7.3 Albumin 2.8 L Globulin 4.5 H Albumin/Globulin Ratio 0.6 L Stl C. diff Tox B Gene 10/24/18 10/24/18 09:55 11:26 WBC RBC Hgb Hct MCV MCH MCHC RDW Std Deviation RDW Coeff of Kip Plt Count MPV Immature Gran % (Auto) Neut % (Auto) Lymph % (Auto) Fountain % (Auto) Eos % (Auto) Baso % (Auto) Immature Gran # (Auto) Neut # (Auto) Lymph # (Auto) Fountain # (Auto) Eos # (Auto) Baso # (Auto) PT 16.4 H INR 1.7 H Sodium Potassium Chloride Carbon Dioxide Anion Gap BUN Creatinine Est Cr Clr Drug Dosing Est GFR ( Amer) Est GFR (Non-Af Amer) BUN/Creatinine Ratio Glucose POC Glucose 184 H Calcium Total Bilirubin AST ALT Alkaline Phosphatase Total Creatine Kinase Total Protein Albumin Globulin Albumin/Globulin Ratio Stl C. diff Tox B Gene Diagnostic Findings Microbiology 10/18/18 10:17 Blood Blood Culture - Final No growth 10/18/18 10:21 Blood Blood Culture - Final No growth 10/18/18 09:45 Ankle,Left Gram Stain - Final 10/18/18 09:45 Ankle,Left Deep Wound Culture - Final Pseudomonas aeruginosa Staph aureus MRSA Prevotella corporis Anaerobic gram positive cocci 10/18/18 09:45 Ankle,Right Gram Stain - Final 10/18/18 09:45 Ankle,Right Wound Culture - Final Staph aureus MRSA
[2018-10-24] MEDS: WARFARIN SOD 10 MG TAB PO SCH (17:10)
--- NOTE | 2018-10-24 18:17 | Hospitalist Progress Note ---
Date of Service October 24, 2018 Assessment & Plan (1) Bilateral cellulitis of lower leg: Recurrent Bilateral LE cellulitis: Chronic venous stasis dermatitis Wound culture:MRSA, Pseudomonas Continue wound care Appreciate ID input Continue IV Dapto, Zosyn-- Needs 2 week therapy Needs FU with ID/Wound Clinic as outpatient PICC/Midline placement as able Pain control May need rehab placement DM II: Last A1c: 6.6 Hold Metformin Continue ISS Monitor BGs GERD: Continue PPI Tobacco abuse: Smoking cessation counseling Nicotine patch Hypercoagulable state: On chronic anticoagulation INR:1.7 Continue coumadin Chronic deep vein thrombosis (DVT): Continue Coumadin as above Monitor INR (2) Ulcer of lower extremity: Management as above (3) COPD (chronic obstructive pulmonary disease): No signs of exacerbation Continue home inhalers Diarrhea: Likely 2/2 Abx Stool for C.diff: Negative DVT Px: on Coumadin Code Status: Full Code Subjective Patient is seen and examined at bedside Leg pain is controlled Denies any chest pain, SOB, dizziness PICC line couldn't be placed this morning Discussed with ID today Physical Exam Vital Signs (Past 24 Hours): Last Vital Signs Temp 36.5 C 10/24/18 15:00 Pulse 60 10/24/18 15:00 Resp 20 10/24/18 15:00 BP 109/71 10/24/18 15:00 Pulse Ox 98 10/24/18 15:00 Physical Exam: Physical Exam: Vitals signs as noted above General Appearance:Moderately built and nourished, no apparent distress Head: normocephalic, Atraumatic Eyes: normal inspection, EOMI Neck: supple, Trachea midline Respiratory/Chest: Normal breath sounds, CTA Cardiovascular: S1, S2, No murmur Abdomen/GI:Soft, Non tender, Bowel sounds present Extremities/Musculoskelatal:normal inspection, Multiple superficial lower extremity ulcerations in dressing, chronic venous stasis changes Neurologic/Psych:AAOX3, grossly no focal neurological deficits Skin: normal color, warm Results & Data Laboratory Results Short CBC 10/24/18 Range/Units 07:30 WBC 2.38 L (4.8-10.8) K/uL Hgb 12.9 L (14.0-18.0) g/dL Hct 39.3 L (42-52) % Plt Count 147 (130-400) K/uL BMP 10/24/18 07:30 Sodium 139 Potassium 3.6 Chloride 110 H Carbon Dioxide 24 BUN 10 Creatinine 0.76 Glucose 130 H Calcium 8.3 L Cardiac Enzymes 10/24/18 Range/Units 07:30 Total Creatine Kinase 25 L (39-308) U/L Liver Function 10/24/18 Range/Units 07:30 Total Bilirubin 0.5 (0.2-1) mg/dl AST 40 H (15-37) U/L ALT 66 (12-78) U/L Alkaline Phosphatase 66 (45-117) U/L Albumin 2.8 L (3.4-5.0) gm/dl (1) Ulcer of lower extremity Laterality: left Non-pressure ulcer stage: unspecified non-pressure ulcer stage Qualified Code(s): L97.929 - Non-pressure chronic ulcer of unspecified part of left lower leg with unspecified severity (2) COPD (chronic obstructive pulmonary disease) COPD type: unspecified COPD Qualified Code(s): J44.9 - Chronic obstructive pulmonary disease, unspecified
[2018-10-24] MEDS: OXYCODONE/ACETAMINOPHEN 5mg/325mg TAB PO PRN (18:53)
[2018-10-24] MEDS: MIRTAZAPINE TAB 15 MG TAB PO SCH (21:26)
[2018-10-25] MEDS: OXYCODONE/ACETAMINOPHEN 5mg/325mg TAB PO PRN ×2 (01:01→07:34)
[2018-10-25] MEDS: PIPERACILLIN/TAZOBACTAM 4.5 GM in DEXTROSE 5% 100 ML IV SCH ×2 (06:02→13:50)
[2018-10-25 08:03] LABS: Prothrombin Time 19.1 Seconds (9.0-12.0)
[2018-10-25 08:21] LABS: BUN Creatinine Ratio 10.9 (10-20); Calcium 9.1 mg/dl (8.5-10.1); Creatinine Clr Calc Pharmacy 154.3 ml/min; Est GFR (African American) 128.6; Potassium 4.1 mmol/L (3.5-5.1)
[2018-10-25] MEDS: DOCUSATE SODIUM 100 MG CAP PO SCH (08:45)
[2018-10-25] MEDS: MULTIVITAMIN TAB PO SCH (08:45)
[2018-10-25] MEDS: FLUTICASONE/SALMETEROL (ADVAIR) 500/50 INH 14 PUFF INH SCH (08:46)
[2018-10-25] MEDS: GABAPENTIN 300 MG CAP PO SCH ×2 (08:47→13:50)
[2018-10-25] MEDS: SPIRONOLACTONE 25 MG TAB PO SCH (08:47)
[2018-10-25] MEDS: PANTOprazole 40 MG TAB PO SCH (08:47)
[2018-10-25] MEDS: PROSOURCE NO CARB 30 ML/PKT PO SCH ×2 (08:47→13:49)
[2018-10-25] MEDS: FUROSEMIDE 20 MG TAB PO SCH (08:49)
[2018-10-25] MEDS: FOLIC ACID 1 MG TAB PO SCH (08:50)
[2018-10-25] MEDS: INSULIN ASPART 100 UNITS/ML 3 ML PEN SC SCH ×2 (08:55→12:46)
[2018-10-25] MEDS ORDERED: DAPTOmycin 525 MG in SYRINGE 0 ML IV SCH (09:00)
--- NOTE | 2018-10-25 13:15 | Hospitalist Progress Note ---
Date of Service October 25, 2018 Assessment & Plan (1) Bilateral cellulitis of lower leg: Recurrent Bilateral LE cellulitis: Chronic venous stasis dermatitis Wound culture:MRSA, Pseudomonas Continue wound care Appreciate ID input Continue IV Dapto, Zosyn-- Needs 2 week therapy Needs FU with ID/Wound Clinic as outpatient PICC/Midline placed Pain control Plan to discharge to SNF today DM II: Last A1c: 6.6 Hold Metformin Continue ISS Monitor BGs GERD: Continue PPI Tobacco abuse: Smoking cessation counseling Nicotine patch Hypercoagulable state: On chronic anticoagulation INR:2.0 Continue coumadin Chronic deep vein thrombosis (DVT): Continue Coumadin as above Monitor INR (2) Ulcer of lower extremity: Management as above (3) COPD (chronic obstructive pulmonary disease): No signs of exacerbation Continue home inhalers Diarrhea: Likely 2/2 Abx Stool for C.diff: Negative DVT Px: on Coumadin Code Status: Full Code Subjective Patient is seen and examined at bedside Offers no complaints today Planned to be discharged to SNF today Denies any chest pain, SOB, dizziness Physical Exam Vital Signs (Past 24 Hours): Last Vital Signs Temp 36.6 C 10/24/18 23:00 Pulse 58 L 10/24/18 23:00 Resp 18 10/24/18 23:00 BP 113/73 10/24/18 23:00 Pulse Ox 95 10/24/18 23:00 Physical Exam: Physical Exam: Vitals signs as noted above General Appearance:Moderately built and nourished, no apparent distress Head: normocephalic, Atraumatic Eyes: normal inspection, EOMI Neck: supple, Trachea midline Respiratory/Chest: Normal breath sounds, CTA Cardiovascular: S1, S2, No murmur Abdomen/GI:Soft, Non tender, Bowel sounds present Extremities/Musculoskelatal:normal inspection, Multiple superficial lower extremity ulcerations in dressing, chronic venous stasis changes Neurologic/Psych:AAOX3, grossly no focal neurological deficits Skin: normal color, warm Results & Data Laboratory Results [facility] 10/25/18 07:32 Sodium 140 Potassium 4.1 Chloride 107 Carbon Dioxide 27 BUN 8 Creatinine 0.76 Glucose 122 H Calcium 9.1 (1) Ulcer of lower extremity Laterality: left Non-pressure ulcer stage: unspecified non-pressure ulcer stage Qualified Code(s): L97.929 - Non-pressure chronic ulcer of unspecified part of left lower leg with unspecified severity (2) COPD (chronic obstructive pulmonary disease) COPD type: unspecified COPD Qualified Code(s): J44.9 - Chronic obstructive pulmonary disease, unspecified
--- NOTE | 2018-10-25 13:42 | Discharge Summary ---
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 Pt has been admitted multiple times to this facility for similar symptoms over the past three months including: Hospitalized 07/06-07/13/18 for bilateral LE cellulitis was discharged to [facility] on ertapenem and daptomycin. 07/31-08/01/18 - ID didn't think active infection at that time, but chronic venous stasis changes, had supratherapuetic INR. 08/16-08/20/18 for BLE cellulitis, initially treated with zosyn & vancomycin then transitioned to dapto and ertapenem and discharged on cefdinir 300mg BID and zyvox 600mg BID x 10 days. 09/05-09/10/18 - recurrent LE cellulitis, treated with daptomycin and ertapenem, discharged to [facility] with [facility] for additional two weeks of IV abx. Culture grew E. coli. Pt reports he initially did well once home after stay at [facility]. Did follow-up with wound clinic (he reports they didn't change anything) and PCP. Has been doing his own dressing changes at home, usually in the evening. He reports that two days ago, the pain in his LE worsened, particularly on left, and he noted increased edema. He did have chills and sweats but has not checked his temperature. Reports limited oral intake over the past two days due to loss of appetite and mild nausea but denies vomiting, diarrhea, cough, congestion, rhinorrhea, chest pain, palpitations. Pt is a current smoker - reports no change in baseline respiratory status. Admission Exam Per Admitting Provider Constitutional: WD/WN, vitals as above Eyes: PERRL, conjunctivae normal, anicteric sclerae ENMT: external ear and nose normal, oropharynx normal Neck: trachea midline Respiratory: normal respiratory effort; no respiratory distress and no labored breathing Auscultation: + wheezes (occasional in upper lobes); no rales and no rhonchi Cardiovascular: Rate/Rhythm: regular rate and regular rhythm Heart Sounds: no gallop, no murmur and no cardiac rub Gastrointestinal (Abdomen): Inspection/Auscultation: + abdomen distended (mild) Percussion/Palpation: abdomen soft; abdomen nontender and no guarding Musculoskeletal: Head/Neck/Chest: normocephalic and head atraumatic Bilateral LE with venous stasis skin coloration changes, +edema to lower thigh, erythema bilateral lower legs and thickened scaling skin, bilateral ulcerations on medial malleolus (left > right). + foul odor, no distinct drainage noted at this time, +tender to palpation entire LE (below knees) but worse on left Psychiatric: A+Ox3, euthymic affect Principal Diagnosis Discharge Information Discharge Diagnosis Bilateral cellulitis of lower leg Discharge Goals Decrease discomfort,Improve disease control, Improve function Discharge Activity Limitations Resume your previous activity Discharge Data Allergies Allergy/AdvReac Type Severity Reaction Status Date / Time peas Allergy Severe Swelling Verified 10/18/18 10:43 of Lip/Tongue/Throat Bactrim Allergy Intermediate hives Verified 04/12/18 15:58 sulfamethoxazole Allergy Intermediate hives Verified 10/18/18 10:43 trimethoprim Allergy Intermediate hives Verified 10/18/18 10:43 tuna oil Allergy Unknown . Verified 10/18/18 10:43 Consultations 10/18/18 11:41 ED Decision to Admit Stat 10/20/18 10:24 Consult Infectious Diseases Routine Procedures Performed CXR: No active disease in the chest. Hospital Course (1) Bilateral cellulitis of lower leg: Recurrent Bilateral LE cellulitis: Chronic venous stasis dermatitis Wound culture:MRSA, Pseudomonas Continue wound care Appreciate ID input Continue IV Dapto, Zosyn-- Needs 2 week therapy Needs FU with ID/Wound Clinic as outpatient PICC/Midline placed Pain control Plan to discharge to SNF today DM II: Last A1c: 6.6 Hold Metformin Continue ISS Monitor BGs GERD: Continue PPI Tobacco abuse: Smoking cessation counseling Nicotine patch Hypercoagulable state: On chronic anticoagulation INR:2.0 Continue coumadin Chronic deep vein thrombosis (DVT): Continue Coumadin as above Monitor INR (2) Ulcer of lower extremity: Management as above (3) COPD (chronic obstructive pulmonary disease): No signs of exacerbation Continue home inhalers Diarrhea: Likely 2/2 Abx Stool for C.diff: Negative DVT Px: on Coumadin Code Status: Full Code Total Time Total Time Spent Total Time Spent (In Minutes): 38 minutes Total Time Includes: Examination of the Patient, Discharge Planning, Medication Reconciliation, Communication With Other Providers and Other Discharge Plan Discharge Items Patient Disposition: Transfer [facility] Reason For Visit: RECURRENT LE CELLULITIS Discharge Diagnosis: Bilateral cellulitis of lower leg Discharge Goals: Decrease discomfort, Improve disease control and Improve function Activity: Resume your previous activity Non-emergency contact: Primary Care Provider and Specialist Call non-emergency contact if: you have any medication questions, your symptoms worsen, your pain is not controlled, your pain is worsening, your pain is unusual for you, your pain is concerning for you, you have a fever, your wound has increased redness, your wound has increased drainage and your wound pain has increased Diet: Carb Consistent or DM2 Addtl Provider Instructions: Follow up with your PCP Gareth Means in 1 week after being discharged from rehab facility Follow up with your Infectious disease in 1-2 weeks as advised Follow up with wound Clinic in week Complete antibiotics as prescribed 1) Zosyn 4.5gm IV Q8H for 7 days 2) Daptomycin 525mg IV Q24H for 7 days Follow up with for further recommendations on antibiotics Seek immediate medical attention if your symptoms reoccur or worsen Prescriptions: New oxycodone-acetaminophen [Percocet] 5-325 mg Tablet 1 tab PO Q6H PRN (Reason: pain) 2 Days Qty: 5 RF: 0 Continued multivitamin Tablet 1 tab PO QAM RF: 0 nicotine 14 mg/24 hr Patch 24 Hour 1 patch TRANSDERMAL QAM PRN (Reason: Withdrawal Symptoms) RF: 0 docusate sodium [Colace] 100 mg Capsule 100 mg PO BID RF: 0 omeprazole 20 mg Capsule,Delayed Release(Dr/Ec) 20 mg PO BID RF: 0 folic acid 1 mg Tablet 1 mg PO QAM RF: 0 albuterol sulfate [Ventolin HFA] 90 mcg/actuation Hfa Aerosol Inhaler 2 puff INHALATION Q6H PRN (Reason: Shortness Of Breath) RF: 0 mirtazapine 15 mg Tablet 15 mg PO HS Qty: 30 RF: 0 gabapentin 300 mg Capsule 300 mg PO TID RF: 0 hydroxyzine HCl 25 mg tablet 50 mg PO HS PRN (Reason: Sleep) RF: 0 metformin 500 mg Tablet 500 mg PO BIDM RF: 0 warfarin 5 mg Tablet 15 mg PO 3XWK RF: 0 furosemide [Lasix] 20 mg Tablet 20 mg PO QAM RF: 0 spironolactone [Aldactone] 50 mg Tablet 50 mg PO QAM RF: 0 hydroxyzine HCl 25 mg tablet 25 mg PO DAILY PRN (Reason: Sleep) RF: 0 warfarin 5 mg Tablet 10 mg PO 4XWK RF: 0 fluticasone-salmeterol [Advair Diskus] 500-50 mcg/dose Blister With Device 1 inh INHALATION BID RF: 0 Discontinued hydrocodone-acetaminophen 5-325 mg tablet 1 tab PO Q6H PRN (Reason: Pain) RF: 0 Stand-Alone Forms: [facility] Discharge Orders: Discharge Order (Routine); Ordered 10/25/18 Ordered By: Karl Azul Skilled Items Patient informed of condition?: Yes DNR: No Discharge Level of Care: Acute rehab Communicable Disease: No Discharge Prognosis: Improving Admission Data Admit Date/Time: 10/21/18 13:59 Attending Provider: Karl Azul Admit Provider: Karl Azul Primary Care Provider: Karl Azul Other Providers: Karl Azul ; Todd Perez ; Gareth Lin ; Dallas Wilkins Service: Medical Other Interventions: Discharge Summary Assessment (RN) Last Done: 10/25/18 14:08 Pending Studies at Discharge: No DC Date/Time DO NOT enter until pt leaves facility: 10/25/18 14:45
== END 2018-10-25 14:45 | DRG 603 ==
LOC: 2W 09:23 → ED 09:23 → 2W 14:58 → SUATTDRO 10-21 13:59 → SUPCPDRO 10-21 13:59

== ENCOUNTER 2018-12-04 17:10 | Inpatient (IN) ==
[2018-12-04] MEDS ORDERED: VANCOMYCIN HCL 2,750 MG in SODIUM CHLORIDE 0.9% 500 ML IV ONE (17:59)
[2018-12-04] MEDS ORDERED: PIPERACILL/TAZOBAC CONSULT ACTIVE PRN (17:59)
[2018-12-04] MEDS ORDERED: VANCOMYCIN CONSULT ACTIVE PRN (17:59)
[2018-12-04] MEDS ORDERED: PIPERACILLIN/TAZOBACTAM 4.5 GM/120 ML BAG IV ONE (17:59)
--- NOTE | 2018-12-04 18:20 | XRay Report ---
XR chest 1V portable CLINICAL HISTORY: 43 years-old Male presenting with Sepsis. TECHNIQUE: Portable upright AP view of the chest was obtained. COMPARISON: 10/18/2018. FINDINGS: Atherosclerosis of the aortic arch. Cardiac silhouette normal in size. Trace bronchial wall thickenin g may be present. Mild coarsening of lung markings. No focal opacity. No large effusion or pneumothor ax. Osseous structures normal. Upper abdomen normal. IMPRESSION: 1. Coarsened lung markings slightly exaggerated from the prior exam. No focal infiltrate to suggest pneumonia. An underlying reactive airways disease or viral bronchiolitis is not excluded. Electronically signed by: Antoni Rod M.D. 12/04/2018 6:18 PM
[2018-12-04 18:36] LABS: Basophils # (auto) 0.05 K/uL (0-0.2); Basophils % (auto) 0.8 %; Eosinophils # (auto) 0.05 K/uL (0-0.5); Eosinophils % (auto) 0.8 %; Hematocrit (blood only) 38.5 % (42-52); Hemoglobin 12.8 g/dL (14.0-18.0); Immature Granulocytes # (auto) 0.02 K/uL (0.00-0.02); Immature Granulocytes % (auto) 0.3 %; Lymphocytes # (auto) 1.13 K/uL (1.2-3.4); Lymphocytes % (auto) 18.1 %; Mean Corpuscular Hgb Conc 33.2 g/dL (32-36); Mean Corpuscular Volume 88.9 fL (80-100); Mean Platelet Volume 9.6 fL (7.4-10.4); Monocytes # (auto) 0.42 K/uL (0.11-0.59); Monocytes % (auto) 6.7 %; Neutrophils # (auto) 4.59 K/uL (1.4-6.5); Neutrophils % (auto) 73.3 %; Platelet Count 203 K/uL (130-400); RDW Coefficient of Variation 17.9 % (11.5-14.5); RDW Standard Deviation 58.7 fL (36.4-46.3); Red Blood Count 4.33 M/uL (4.7-6.1); White Blood Count 6.26 K/uL (4.8-10.8)
[2018-12-04 18:45] LABS: Albumin Level 3.4 gm/dl (3.4-5.0); BUN Creatinine Ratio 6.1 (10-20); Creatinine Clr Calc Pharmacy 132.2 ml/min; Est GFR (African American) 120.5; Potassium 3.6 mmol/L (3.5-5.1)
[2018-12-04 18:48] LABS: Albumin Globulin Ratio 0.6 (0.9-2); Bilirubin,Total 0.7 mg/dl (0.2-1); Globulin 5.4 gm/dl (2.5-4.0); Total Protein 8.8 gm/dl (6.4-8.2)
[2018-12-04 18:55] LABS: INR 1.1 (0.9-1.1); Partial Thromboplastin Time 26.1 Seconds (21.0-31.0); Prothrombin Time 11.6 Seconds (9.0-12.0)
[2018-12-04] MEDS ORDERED: MoRPHine SULFATE 10 MG/ML CARP/VIAL IV STA ×2 (19:04→19:05)
[2018-12-04] MEDS ORDERED: SODIUM CHLORIDE 0.9% 1000ML 1,000 ML IV ONE (19:04)
[2018-12-04] MEDS ORDERED: ALBUTEROL HFA 8 GM INHALER INH PRN (21:50)
[2018-12-04] MEDS ORDERED: ACETAMINOPHEN 325 MG TAB PO PRN (21:50)
[2018-12-04] MEDS ORDERED: NICOTINE 14 MG/24 HR PATCH TD PRN (21:50)
[2018-12-04] MEDS ORDERED: ONDANSETRON INJ 2 MG/ML 2 ML VIAL IV PRN (21:50)
--- NOTE | 2018-12-04 22:14 | History and Physical Report ---
DATE OF ADMISSION: 12/04/2018 CHIEF COMPLAINT: Bilateral lower extremity wounds. HISTORY OF PRESENT ILLNESS: This is a 43-year-old male with past medical history significant for heterozygous MTHFR mutation, hemosiderosis, type 2 diabetes, COPD, moderate asthma, chronic deep vein thrombosis of femoral vein, venous insufficiency, alcoholic liver cirrhosis with ascites, venous stasis ulcers of both the legs, thrombocytopenia, depression, tobacco use disorder, who presents with lower extremity wounds. The patient has recurrent infection of the lower extremities, from venous stasis ulcers. He says he is having this problem for the last 2 years . He says the wounds cleared up and gets closed and one month later they again open up and get infected. Last time, he was admitted from 10/18/2018 to 10/25/2018 for same issue and the cultures grew MRSA and pseudomonas. He was treated with daptomycin and Zosyn and he was sent to rehab. He said he got a total of 3 weeks of antibiotics and he did fine and the wounds almost closed up, but again a month later they started to open up and he was in the ER on 11/27/2018 and he was discharged on Omnicef and doxycycline, but that is not helping. He is having foul smelling and there is a lot of pain in the lower extremity and that prompted him to come to the ER. He denies any fevers, but he has some sweating last 2 nights. Ambulates okay. Lives alone. Poor appetite last couple of days. Denies any headache, no blurred vision, no earache, no runny nose, no sore throat, no difficulty swallowing. No cough, no chest pain, no shortness of breath. Feeling somewhat nauseous, no vomiting, no abdominal pain. Normal bowel and bladder movements. No hematuria, no burning micturition, no melena, no hematochezia. Currently resting comfortable and hemodynamically stable. ALLERGIES: BACTRIM, PEAS, TUNA OIL. PAST MEDICAL HISTORY: As mentioned above. PAST SURGICAL HISTORY: Drainage of the lower leg abscess, benign lump removed from the right arm. MEDICATIONS: The patient is on albuterol 2 puffs every 4 hours p.r.n., ferrous sulfate 325 mg p.o. b.i.d., Lasix 40 mg p.o. daily, gabapentin 300 mg p.o. t.i.d., Percocet 5/325 mg 1 tablet p.o. q. 6 hours p.r.n., spironolactone 100 mg p.o. daily, warfarin 10 mg on Monday, Monday, Monday and Monday and 15 mg on Tuesdays, and Saturdays, metformin 500 mg p.o. b.i.d., Tylenol 650 mg p.o. q. 4 hours p.r.n., Colace 100 mg p.o. b.i.d., hydroxyzine 50 mg p.o. at bedtime, Remeron 15 mg p.o. at bedtime, folic acid 1 mg p.o. daily, Advair Diskus 500/50 one puff b.i.d., omeprazole 20 mg p.o. b.i.d., multivitamins 1 tablet p.o. daily. FAMILY HISTORY: Unknown. SOCIAL HISTORY: Single, smokes 0.25 pack a day for last 2 years. Quit alcohol in March 2018. No drug use. REVIEW OF SYSTEMS: As per HPI. Rest of the review of systems is negative. PHYSICAL EXAMINATION: GENERAL: The patient is obese, not in acute distress. VITAL SIGNS: Temperature 37.5, pulse 97, respiratory rate 17, blood pressure 113/85, oxygen 95% room air. HEENT: No pallor, no icterus. Pupils equal, round, and reactive to light. NECK: No JVD, no neck masses, no carotid bruit. CARDIOVASCULAR: S1, S2 heard, regular rate and rhythm, no murmur, no gallop. ABDOMEN: Soft, bowel sounds present. Nontender. No distention. CENTRAL NERVOUS SYSTEM: Cranial nerves II-XII grossly intact, nonfocal. EXTREMITIES: Lower extremity edema present. venous stasis ulcers seen and foul-smelling mild serosanguinous discharge seen, they are wrapped in dressing. LABORATORY DATA: WBC 6.2, hemoglobin 12.8, hematocrit 38.5, platelets 203. PT 11.6, INR 1.1, APTT 26.1. Sodium 133, potassium 3.6, chloride 99, CO2 of 26, BUN 5, creatinine 0.8, serum glucose 180. Lactate 1.4, calcium 9, total bilirubin 0.7, AST 70, ALT 40, alkaline phosphatase 100. Procalcitonin less than 0.05. Chest x-ray, no acute findings seen. ASSESSMENT AND PLAN: This is a 43-year-old male who presents with recurrent lower extremity wounds and infection. 1. Recurrent lower extremity wounds and infection, venous stasis ulcers. History of MRSA and pseudomonas infection in the past. This has been going on for the last 2 years as per patient. Last time he was admitted in the last week of September and received daptomycin and Zosyn. Currently in the ER he was placed on IV vancomycin and IV Zosyn, which will be continued. Wound cultures were drawn and blood cultures were drawn in the ER, which we will follow. Will consult ID. Was in the ER on 11/27/2018, discharged on Omnicef and doxycycline, but failed outpatient treatment with foul-smelling mild drainage and increasing pain. Monitor on the medical floor for the response. 2. Diabetes, hold his metformin, placed on insulin sliding scale. Follow his HbA1c levels. 3. Heterozygous MTHFR mutation. History of deep vein thrombosis, on Coumadin. His INR is subtherapeutic. We will place on Lovenox bridge and continue his Coumadin and follow the PT/INR. 4. History of alcoholism and alcoholic liver cirrhosis. He says he quit drinking last April. He is on Lasix, Aldactone, which he will continue. 5. History of chronic obstructive pulmonary disease, asthma. Continue his home inhalers, currently stable. 6. Tobacco abuse, nicotine patch. 7. Depression. Continue his Remeron. 8. Gastroesophageal reflux disease, continue his PPI. 9. Deep venous thrombosis prophylaxis. We will place him on Lovenox bridge until his INR is therapeutic. DISPOSITION: Closely monitor in the med/surg floor. Level 1 full code. PT and OT prior to discharge. Social service to help with discharge planning. [id number]
[2018-12-04] MEDS: MoRPHine SULFATE 4 MG/ML 1 ML CARP\\VIAL IV PRN (22:20)
--- NOTE | 2018-12-04 23:29 | Emergency Department Note ---
Entered by Saud Vega acting as a scribe for Seth Villeda MD History of Present Illness General Chief complaint: Infection, Wound Stated complaint: B/L WOUND INFECTION Time Seen by Provider: 12/04/18 17:37 Source: patient History of Present Illness Onset (ago): week(s) (worsening since evaluation one week ago) Location: lower extremity Pain Consistency: + other (worsening) Quality: + other (infection) Associated symptoms: + diaphoresis, + loss of appetite and + other (pain, redness, swelling in legs) The patient is a 43 year old white male with a history of COPD, GERD, MRSA, recurrent cellulitis, and diabetes who presents to the Emergency Room with complaints of a worsening infection in the bilateral lower extremities. Per medical records the patient was recently placed on Levaquin and doxycycline after evaluation one week ago, and the wound culture showed E. coli and MRSA. The patient states that he was taken off of the Levaquin and placed on Keflex, and he reports that he has been taking his antibiotics as prescribed. Despite this he states that he has developed redness in the legs that was not present la week. He notes pain in the legs and feels like they are swollen. He notes loss of appetite and diaphoresis. He has not been taking his temperature but was told today that it was 99.1. He denies abdominal pain. He notes that he was last admitted one month ago. He states that he regularly smokes. Home Medications Home Medications Medication Instructions Recorded Confirmed Type albuterol sulfate [Ventolin HFA] 1 puff INHALATION Q4H PRN 05/09/18 12/04/18 History docusate sodium [Colace] 100 mg PO BID 05/09/18 12/04/18 History folic acid 1 mg PO QAM 05/09/18 12/04/18 History multivitamin 1 tab PO QAM 05/09/18 12/04/18 History nicotine 1 patch TRANSDERMAL QAM PRN 05/09/18 12/04/18 History omeprazole 20 mg PO BID 05/09/18 12/04/18 History mirtazapine 15 mg PO HS #30 tab 05/15/18 12/04/18 Rx gabapentin 300 mg PO TID 08/16/18 12/04/18 History hydroxyzine HCl 50 mg PO HS PRN 08/16/18 12/04/18 History furosemide [Lasix] 40 mg PO QAM 08/20/18 12/04/18 History metformin 500 mg PO BIDM 08/20/18 12/04/18 History spironolactone [Aldactone] 100 mg PO QAM 08/20/18 12/04/18 History warfarin 15 mg PO 3XWK 08/20/18 12/04/18 History fluticasone propion-salmeterol 1 inh INHALATION BID 09/05/18 12/04/18 History [Advair Diskus] warfarin 10 mg PO [id number] 09/05/18 12/04/18 History doxycycline hyclate 100 mg PO BID 10 Days #20 cap 11/27/18 12/04/18 Rx hydrocodone-acetaminophen [Sutton] 1 tab PO Q6H PRN #15 tab 11/27/18 12/04/18 Rx cefdinir 300 mg PO BID 12/04/18 12/04/18 History oxycodone-acetaminophen 1 tab PO DAILY 12/04/18 12/04/18 History Allergies Allergy/AdvReac Type Severity Reaction Status Date / Time peas Allergy Severe Swelling Verified 12/04/18 17:54 of Lip/Tongue/Throat Bactrim Allergy Intermediate hives Verified 04/12/18 15:58 sulfamethoxazole Allergy Intermediate hives Verified 12/04/18 17:54 trimethoprim Allergy Intermediate hives Verified 12/04/18 17:54 tuna oil Allergy Unknown . 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, borderline hyperhomocystemia Anxiety (Chronic) MRSA (methicillin resistant Staphylococcus aureus) infection (Chronic) History of ETOH abuse (Chronic) Chronic narcotic use (Chronic) Type 2 diabetes mellitus (Chronic) COPD (chronic obstructive pulmonary disease) (Chronic) Depression (Chronic) Pulmonary nodule (Chronic) CT chest 04/12/18 - 4 mm RUL nodule, f/u 12 months Venous insufficiency (chronic) (peripheral) (Chronic) Anxiety COPD (chronic obstructive pulmonary disease) Cellulitis Chronic deep vein thrombosis (DVT) Chronic narcotic use Chronic ulcer of leg "b/l" Chronic venous stasis dermatitis of both lower extremities Depression GERD (gastroesophageal reflux disease) HTN (hypertension) History of ETOH abuse Hypercoagulable state On 04/12/18 14:03 Yanirachristiano Boldenhomerounique wrote "Prothrombin Factor II Mutation, 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 Chaudhari History of drainage of abscess [address] 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 and A total of 10 systems reviewed and were otherwise negative Physical Exam Vital Signs Vital Signs - 24 hr 12/04/18 17:21 12/04/18 18:16 12/04/18 19:18 Temperature 37.5 C Temperature Source Oral Sepsis Recent Fever Within 48 Hours No Sepsis New/Unexplained Change in Mental Status No Sepsis Action Taken by Nursing No Action Required Pulse Rate 109 H Pulse Rate [Right Finger] 97 H Pulse Rhythm [Right Finger] Pulse Strength [Right Finger] Respiratory Rate 20 17 Respiratory Effort / Characteristics Respiratory Depth Respiratory Pattern Blood Pressure 175/89 H Blood Pressure [Right Arm] 138/85 Blood Pressure Mean 117 Blood Pressure Mean [Right Arm] 102 Blood Pressure Position Sitting Blood Pressure Position [Right Arm] Pulse Oximetry 97 97 95 Oxygen Delivery Method Room Air Room Air 12/04/18 20:49 12/04/18 22:10 12/04/18 22:53 Temperature 36.8 C 36.8 C Temperature Source Oral Oral Sepsis Recent Fever Within 48 Hours Sepsis New/Unexplained Change in Mental Status Sepsis Action Taken by Nursing Pulse Rate 94 H Pulse Rate [Right Finger] 96 H 88 Pulse Rhythm [Right Finger] Regular Regular Pulse Strength [Right Finger] Normal Normal Respiratory Rate 16 18 16 Respiratory Effort / Characteristics Non-Labored Spontaneous Respiratory Depth Normal Normal Respiratory Pattern Regular Blood Pressure 128/76 Blood Pressure [Right Arm] 136/84 131/77 Blood Pressure Mean Blood Pressure Mean [Right Arm] 101 95 Blood Pressure Position Blood Pressure Position [Right Arm] Lying Lying Pulse Oximetry 95 96 95 Oxygen Delivery Method Room Air Room Air Room Air 12/05/18 07:31 12/05/18 07:53 Temperature 36.5 C Temperature Source Oral Sepsis Recent Fever Within 48 Hours Sepsis New/Unexplained Change in Mental Status Sepsis Action Taken by Nursing Pulse Rate Pulse Rate [Right Finger] 70 Pulse Rhythm [Right Finger] Pulse Strength [Right Finger] Respiratory Rate 16 Respiratory Effort / Characteristics Non-Labored Spontaneous Respiratory Depth Normal Normal Respiratory Pattern Regular Blood Pressure Blood Pressure [Right Arm] 111/76 Blood Pressure Mean Blood Pressure Mean [Right Arm] 87 Blood Pressure Position Blood Pressure Position [Right Arm] Lying Pulse Oximetry 98 Oxygen Delivery Method Room Air Room Air GENERAL: Well appearing, well nourished, NAD, non-toxic, wearing glasses. EYE EXAM: Normal conjunctiva. PERRL, no anisocoria and EOM's grossly intact w/o pain. OROPHARYNX: Moist MM. NECK: Supple, no nuchal rigidity, no adenopathy, non-tender. No signs of meningismus. LUNGS: Diffuse wheezing. Normal chest wall mechanics. HEART: NSR, no MRG. ABDOMEN: Abdomen soft, non-tender, normo-active bowel sounds, no masses, no rebound or guarding. BACK: No CVA TTP. SKIN: No rashes and no bruising. UPPER EXTREMITIES: Upper extremities are grossly normal. LOWER EXTREMITIES: Bilateral lower extremity edema. Foul-smelling wound to the right anterior victoria with expanding redness and pain. NEURO EXAM: A and O x3. GCS 15. Moves all 4 extremities on command w/o issue. Course 1751: The patient was evaluated in room B6, and a complete history and physical examination were performed. 1935: I consulted Dr. Olive Herrera Hospitalist. The patient will be reevaluated for hospitalization. Consultations Consultation #1: I consulted Dr. Olive Herrera Hospitalist. The patient will be reevaluated for hospitalization. Time: 19:35 Administered Medications Hydrocodone Bitart/Acetaminophen (Sutton 5/325) 1 tab PO Q6H PRN PRN Reason: pain Stop: 12/18/18 21:49 Last Admin: 12/05/18 05:49 Dose: 1 tab Documented by: [id number] Admin: 12/05/18 00:17 Dose: 1 tab Documented by: [id number] Docusate Sodium (Colace) 100 mg PO BID OTILIA Stop: 01/03/19 21:49 Last Admin: 12/05/18 08:05 Dose: 100 mg Documented by: [id number] Admin: 12/04/18 23:32 Dose: 100 mg Documented by: [id number] Folic Acid (Folvite) 1 mg PO QAM OTILIA Stop: 01/04/19 08:59 Last Admin: 12/05/18 08:06 Dose: 1 mg Documented by: [id number] Furosemide (Lasix) 40 mg PO QAM OTILIA Stop: 01/04/19 08:59 Last Admin: 12/05/18 08:07 Dose: 40 mg Documented by: [id number] Gabapentin (Neurontin) 300 mg PO TID OTILIA Stop: 01/03/19 21:49 Last Admin: 12/05/18 08:05 Dose: 300 mg Documented by: [id number] Admin: 12/04/18 23:33 Dose: 300 mg Documented by: [id number] Vancomycin HCl 1,000 mg/ (Sodium Chloride) 270 mls @ 125 mls/hr IV Q12H OTILIA Stop: 12/15/18 08:59 Last Admin: 12/05/18 10:34 Dose: 125 mls/hr Documented by: [id number] Insulin Aspart (Novolog Flexpen) 0 units SC ACHS OTILIA Stop: 01/03/19 21:49 Last Admin: 12/05/18 13:00 Dose: 8 units Documented by: [id number] Cosigned by: [id number] Admin: 12/05/18 09:08 Dose: 3 units Documented by: [id number] Cosigned by: [id number] Admin: 12/05/18 00:12 Dose: 5 units Documented by: [id number] Cosigned by: [id number] Mirtazapine (Remeron) 15 mg PO HS [facility] Stop: 01/03/19 21:49 Last Admin: 12/04/18 23:32 Dose: 15 mg Documented by: [id number] Morphine Sulfate (Morphine Sulfate) 3 mg IV Q4H PRN PRN Reason: Pain Stop: 12/18/18 21:49 Last Admin: 12/05/18 12:59 Dose: 3 mg Documented by: [id number] Admin: 12/05/18 08:04 Dose: 3 mg Documented by: [id number] Admin: 12/05/18 02:39 Dose: 3 mg Documented by: [id number] Admin: 12/04/18 22:20 Dose: 3 mg Documented by: [id number] Multi-Ingredient Cream (Hydrocerin) 1 appln EXT DAILY OTILIA Stop: 01/04/19 08:59 Last Admin: 12/05/18 10:35 Dose: 1 appln Documented by: [id number] Multivitamins (Multivitamin Tab) 1 tab PO QAM OTILIA Stop: 01/04/19 08:59 Last Admin: 12/05/18 08:05 Dose: 1 tab Documented by: [id number] Pantoprazole Sodium (Protonix) 40 mg PO BID [facility] Stop: 01/03/19 21:49 Last Admin: 12/05/18 08:06 Dose: 40 mg Documented by: [id number] Admin: 12/04/18 23:33 Dose: 40 mg Documented by: [id number] Fluticasone/Salmeterol (Advair Diskus 500/50) 1 puffs INH BID OTILIA Stop: 01/03/19 21:49 Last Admin: 12/05/18 08:05 Dose: 1 puffs Documented by: [id number] Admin: 12/04/18 23:32 Dose: 1 puffs Documented by: [id number] Spironolactone (Aldactone) 100 mg PO QAM [facility] Stop: 01/04/19 08:59 Last Admin: 12/05/18 08:06 Dose: 100 mg Documented by: [id number] Warfarin Sodium (Coumadin) 15 mg PO TuThSa@1600 [facility] Stop: 01/03/19 21:59 Last Admin: 12/04/18 23:32 Dose: 15 mg Documented by: [id number] Discontinued Medications Enoxaparin Sodium (Lovenox) 100 mg SQ Q12H OTILIA Stop: 01/03/19 21:59 Last Admin: 12/05/18 09:13 Dose: 100 mg Documented by: [id number] Admin: 12/04/18 23:31 Dose: 100 mg Documented by: [id number] Piperacillin Sod/Tazobactam Sod (Zosyn) 4.5 gm in 120 mls @ 240 mls/hr IV NOW ONE Stop: 12/04/18 18:28 Last Infusion: 12/04/18 19:22 Dose: 0 mls/hr Documented by: [id number] Admin: 12/04/18 18:33 Dose: 240 mls/hr Documented by: [id number] Vancomycin HCl 2,750 mg/ (Sodium Chloride) 555 mls @ 200 mls/hr IV NOW ONE Stop: 12/04/18 20:45 Last Infusion: 12/04/18 22:01 Dose: 0 mls/hr Documented by: [id number] Admin: 12/04/18 19:14 Dose: 200 mls/hr Documented by: [id number] Sodium Chloride (Nss 1000ml) 1,000 mls @ 999 mls/hr IV .Q1H1M ONE Stop: 12/04/18 20:04 Last Infusion: 12/04/18 20:18 Dose: 0 mls/hr Documented by: [id number] Admin: 12/04/18 19:15 Dose: 999 mls/hr Documented by: [id number] Piperacillin Sod/Tazobactam (Sod 4.5 gm/ Dextrose) 120 mls @ 200 mls/hr IV NOW ONE; Protocol Stop: 12/05/18 09:20 Last Infusion: 12/05/18 11:21 Dose: 0 mls/hr Documented by: [id number] Admin: 12/05/18 10:34 Dose: 200 mls/hr Documented by: [id number] Morphine Sulfate (Morphine Sulfate) 6 mg IV NOW STA Stop: 12/04/18 19:05 Last Admin: 12/04/18 19:15 Dose: Not Given Documented by: [id number] Morphine Sulfate (Morphine Sulfate) 6 mg IV NOW STA Stop: 12/04/18 19:06 Last Admin: 12/04/18 19:18 Dose: 6 mg Documented by: [id number] Medical Decision Making Medical Records Attestation: I reviewed the patient's medical records. Home Medications Current Medication List: was personally reviewed by me Laboratory Data Attestation: I reviewed the patient's lab results. Result diagrams: 12/05/18 05:27 12/05/18 05:27 Lab Results 12/04/18 12/04/18 12/04/18 Range/Units 18:11 18:11 18:11 WBC 6.26 (4.8-10.8) K/uL RBC 4.33 L (4.7-6.1) M/uL Hgb 12.8 L (14.0-18.0) g/dL Hct 38.5 L (42-52) % MCV 88.9 (80-100) fL MCH 29.6 (25-34) pg MCHC 33.2 (32-36) g/dL RDW Std Deviation 58.7 H (36.4-46.3) fL RDW Coeff of Kip 17.9 H (11.5-14.5) % Plt Count 203 (130-400) K/uL MPV 9.6 (7.4-10.4) fL Immature Gran % (Auto) 0.3 % Neut % (Auto) 73.3 % Lymph % (Auto) 18.1 % Randall % (Auto) 6.7 % Eos % (Auto) 0.8 % Baso % (Auto) 0.8 % Immature Gran # (Auto) 0.02 (0.00-0.02) K/uL Neut # (Auto) 4.59 (1.4-6.5) K/uL Lymph # (Auto) 1.13 L (1.2-3.4) K/uL Randall # (Auto) 0.42 (0.11-0.59) K/uL Eos # (Auto) 0.05 (0-0.5) K/uL Baso # (Auto) 0.05 (0-0.2) K/uL PT 11.6 (9.0-12.0) Seconds INR 1.1 (0.9-1.1) APTT 26.1 (21.0-31.0) Seconds PTT Ratio 1.0 Sodium 133 L (136-145) mmol/L Potassium 3.6 (3.5-5.1) mmol/L Chloride 99 (98-107) mmol/L Carbon Dioxide 26 (21-32) mmol/L Anion Gap 8.0 (3-11) BUN 5 L (7-18) mg/dl Creatinine 0.89 (0.6-1.4) mg/dl Est Cr Clr Drug Dosing 132.2 ml/min Est GFR ( Amer) 120.5 Est GFR (Non-Af Amer) 104.0 BUN/Creatinine Ratio 6.1 L (10-20) Glucose 180 H (70-99) mg/dl POC Glucose (70-99) Estimat Average Glucose mg/dl Hemoglobin A1c (4.5-5.6) % Lactate (0.4-2.0) mmol/L Calcium 9.0 (8.5-10.1) mg/dl Magnesium (1.8-2.4) mg/dl Total Bilirubin 0.7 (0.2-1) mg/dl AST 20 (15-37) U/L ALT 40 (12-78) U/L Alkaline Phosphatase 100 (45-117) U/L Total Protein 8.8 H (6.4-8.2) gm/dl Albumin 3.4 (3.4-5.0) gm/dl Globulin 5.4 H (2.5-4.0) gm/dl Albumin/Globulin Ratio 0.6 L (0.9-2) Procalcitonin (0-0.5) ng/ml 12/04/18 12/04/18 12/04/18 Range/Units 18:11 18:19 21:31 WBC (4.8-10.8) K/uL RBC (4.7-6.1) M/uL Hgb (14.0-18.0) g/dL Hct (42-52) % MCV (80-100) fL MCH (25-34) pg MCHC (32-36) g/dL RDW Std Deviation (36.4-46.3) fL RDW Coeff of Kip (11.5-14.5) % Plt Count (130-400) K/uL MPV (7.4-10.4) fL Immature Gran % (Auto) % Neut % (Auto) % Lymph % (Auto) % Randall % (Auto) % Eos % (Auto) % Baso % (Auto) % Immature Gran # (Auto) (0.00-0.02) K/uL Neut # (Auto) (1.4-6.5) K/uL Lymph # (Auto) (1.2-3.4) K/uL Randall # (Auto) (0.11-0.59) K/uL Eos # (Auto) (0-0.5) K/uL Baso # (Auto) (0-0.2) K/uL PT (9.0-12.0) Seconds INR (0.9-1.1) APTT (21.0-31.0) Seconds PTT Ratio Sodium (136-145) mmol/L Potassium (3.5-5.1) mmol/L Chloride (98-107) mmol/L Carbon Dioxide (21-32) mmol/L Anion Gap (3-11) BUN (7-18) mg/dl Creatinine (0.6-1.4) mg/dl Est Cr Clr Drug Dosing ml/min Est GFR ( Amer) Est GFR (Non-Af Amer) BUN/Creatinine Ratio (10-20) Glucose (70-99) mg/dl POC Glucose 218 H (70-99) Estimat Average Glucose mg/dl Hemoglobin A1c (4.5-5.6) % Lactate 1.4 (0.4-2.0) mmol/L Calcium (8.5-10.1) mg/dl Magnesium (1.8-2.4) mg/dl Total Bilirubin (0.2-1) mg/dl AST (15-37) U/L ALT (12-78) U/L Alkaline Phosphatase (45-117) U/L Total Protein (6.4-8.2) gm/dl Albumin (3.4-5.0) gm/dl Globulin (2.5-4.0) gm/dl Albumin/Globulin Ratio (0.9-2) Procalcitonin < 0.05 (0-0.5) ng/ml 12/04/18 12/05/18 12/05/18 Range/Units 23:27 05:27 05:27 WBC 3.19 L (4.8-10.8) K/uL RBC 4.06 L (4.7-6.1) M/uL Hgb 11.8 L (14.0-18.0) g/dL Hct 36.1 L (42-52) % MCV 88.9 (80-100) fL MCH 29.1 (25-34) pg MCHC 32.7 (32-36) g/dL RDW Std Deviation 58.1 H (36.4-46.3) fL RDW Coeff of Kip 17.9 H (11.5-14.5) % Plt Count 158 (130-400) K/uL MPV 9.5 (7.4-10.4) fL Immature Gran % (Auto) 0.0 % Neut % (Auto) 57.7 % Lymph % (Auto) 32.6 % Randall % (Auto) 6.9 % Eos % (Auto) 2.2 % Baso % (Auto) 0.6 % Immature Gran # (Auto) 0.00 (0.00-0.02) K/uL Neut # (Auto) 1.84 (1.4-6.5) K/uL Lymph # (Auto) 1.04 L (1.2-3.4) K/uL Randall # (Auto) 0.22 (0.11-0.59) K/uL Eos # (Auto) 0.07 (0-0.5) K/uL Baso # (Auto) 0.02 (0-0.2) K/uL PT 11.5 (9.0-12.0) Seconds INR 1.1 (0.9-1.1) APTT (21.0-31.0) Seconds PTT Ratio Sodium (136-145) mmol/L Potassium (3.5-5.1) mmol/L Chloride (98-107) mmol/L Carbon Dioxide (21-32) mmol/L Anion Gap (3-11) BUN (7-18) mg/dl Creatinine (0.6-1.4) mg/dl Est Cr Clr Drug Dosing ml/min Est GFR ( Amer) Est GFR (Non-Af Amer) BUN/Creatinine Ratio (10-20) Glucose (70-99) mg/dl POC Glucose 225 H (70-99) Estimat Average Glucose mg/dl Hemoglobin A1c (4.5-5.6) % Lactate (0.4-2.0) mmol/L Calcium (8.5-10.1) mg/dl Magnesium (1.8-2.4) mg/dl Total Bilirubin (0.2-1) mg/dl AST (15-37) U/L ALT (12-78) U/L Alkaline Phosphatase (45-117) U/L Total Protein (6.4-8.2) gm/dl Albumin (3.4-5.0) gm/dl Globulin (2.5-4.0) gm/dl Albumin/Globulin Ratio (0.9-2) Procalcitonin (0-0.5) ng/ml 12/05/18 12/05/18 12/05/18 Range/Units 05:27 05:27 08:02 WBC (4.8-10.8) K/uL RBC (4.7-6.1) M/uL Hgb (14.0-18.0) g/dL Hct (42-52) % MCV (80-100) fL MCH (25-34) pg MCHC (32-36) g/dL RDW Std Deviation (36.4-46.3) fL RDW Coeff of Kip (11.5-14.5) % Plt Count (130-400) K/uL MPV (7.4-10.4) fL Immature Gran % (Auto) % Neut % (Auto) % Lymph % (Auto) % Randall % (Auto) % Eos % (Auto) % Baso % (Auto) % Immature Gran # (Auto) (0.00-0.02) K/uL Neut # (Auto) (1.4-6.5) K/uL Lymph # (Auto) (1.2-3.4) K/uL Randall # (Auto) (0.11-0.59) K/uL Eos # (Auto) (0-0.5) K/uL Baso # (Auto) (0-0.2) K/uL PT (9.0-12.0) Seconds INR (0.9-1.1) APTT (21.0-31.0) Seconds PTT Ratio Sodium 137 (136-145) mmol/L Potassium 3.5 (3.5-5.1) mmol/L Chloride 106 (98-107) mmol/L Carbon Dioxide 29 (21-32) mmol/L Anion Gap 2.0 L (3-11) BUN 5 L (7-18) mg/dl Creatinine 0.76 (0.6-1.4) mg/dl Est Cr Clr Drug Dosing 155.8 ml/min Est GFR ( Amer) 128.6 Est GFR (Non-Af Amer) 111.0 BUN/Creatinine Ratio 7.1 L (10-20) Glucose 165 H (70-99) mg/dl POC Glucose 161 H (70-99) Estimat Average Glucose 148 mg/dl Hemoglobin A1c 6.8 H (4.5-5.6) % Lactate (0.4-2.0) mmol/L Calcium 8.2 L (8.5-10.1) mg/dl Magnesium 2.2 (1.8-2.4) mg/dl Total Bilirubin (0.2-1) mg/dl AST (15-37) U/L ALT (12-78) U/L Alkaline Phosphatase (45-117) U/L Total Protein (6.4-8.2) gm/dl Albumin (3.4-5.0) gm/dl Globulin (2.5-4.0) gm/dl Albumin/Globulin Ratio (0.9-2) Procalcitonin (0-0.5) ng/ml 12/05/18 Range/Units 12:05 WBC (4.8-10.8) K/uL RBC (4.7-6.1) M/uL Hgb (14.0-18.0) g/dL Hct (42-52) % MCV (80-100) fL MCH (25-34) pg MCHC (32-36) g/dL RDW Std Deviation (36.4-46.3) fL RDW Coeff of Kip (11.5-14.5) % Plt Count (130-400) K/uL MPV (7.4-10.4) fL Immature Gran % (Auto) % Neut % (Auto) % Lymph % (Auto) % Randall % (Auto) % Eos % (Auto) % Baso % (Auto) % Immature Gran # (Auto) (0.00-0.02) K/uL Neut # (Auto) (1.4-6.5) K/uL Lymph # (Auto) (1.2-3.4) K/uL Randall # (Auto) (0.11-0.59) K/uL Eos # (Auto) (0-0.5) K/uL Baso # (Auto) (0-0.2) K/uL PT (9.0-12.0) Seconds INR (0.9-1.1) APTT (21.0-31.0) Seconds PTT Ratio Sodium (136-145) mmol/L Potassium (3.5-5.1) mmol/L Chloride (98-107) mmol/L Carbon Dioxide (21-32) mmol/L Anion Gap (3-11) BUN (7-18) mg/dl Creatinine (0.6-1.4) mg/dl Est Cr Clr Drug Dosing ml/min Est GFR ( Amer) Est GFR (Non-Af Amer) BUN/Creatinine Ratio (10-20) Glucose (70-99) mg/dl POC Glucose 202 H (70-99) Estimat Average Glucose mg/dl Hemoglobin A1c (4.5-5.6) % Lactate (0.4-2.0) mmol/L Calcium (8.5-10.1) mg/dl Magnesium (1.8-2.4) mg/dl Total Bilirubin (0.2-1) mg/dl AST (15-37) U/L ALT (12-78) U/L Alkaline Phosphatase (45-117) U/L Total Protein (6.4-8.2) gm/dl Albumin (3.4-5.0) gm/dl Globulin (2.5-4.0) gm/dl Albumin/Globulin Ratio (0.9-2) Procalcitonin (0-0.5) ng/ml Imaging Data Radiologist's Impression: Radiology results as stated below per my review and the radiologist's interpretation: XR chest 1V portable CLINICAL HISTORY: 43 years-old Male presenting with Sepsis. TECHNIQUE: Portable upright AP view of the chest was obtained. COMPARISON: 10/18/2018. FINDINGS: Atherosclerosis of the aortic arch. Cardiac silhouette normal in size. Trace bronchial wall thickening may be present. Mild coarsening of lung markings. No focal opacity. No large effusion or pneumothorax. Osseous structures normal. Upper abdomen normal. IMPRESSION: 1. Coarsened lung markings slightly exaggerated from the prior exam. No focal infiltrate to suggest pneumonia. An underlying reactive airways disease or viral bronchiolitis is not excluded. Electronically signed by: Antoni Rod M.D. 12/04/2018 6:18 PM Blood Pressure Blood Pressure Findings: Elevated blood pressure Blood Pressure Disposition: further management by hospitalist SNEHAL Narrative Prior records/ancillary studies reviewed. Triage nursing notes reviewed. The patient is a 43 year old white male with a history of COPD, GERD, MRSA, recurrent cellulitis, and diabetes who presents to the Emergency Room with complaints of a worsening infection in the bilateral lower extremities. Differential diagnosis: Etiologies such as cellulitis, abscess, MRSA infection, DVT, necrotizing fasciitis, dermatitis, drug eruption, as well as others were entertained. Patient was seen and evaluated the bedside. The patient does have a history of known recurrent cellulitis. The patient was recently seen here in the emergency department was counseled to start on floor quinolones and subsequent doxycycline. The patient had some resistance with regard to the E. coli and then was switched to Ceftin ear. The patient is a returns with foul-smelling drainage and worsening erythema up his bilateral lower extremities. Patient is a foul smell drainage. Wound culture was obtained. The patient was started on antibiotics as well as having blood work completed along with blood cultures. Given the patient's concerning cellulitis that is worsened with foul-smelling drainage given his known history of resistant organisms the patient be more suitable for inpatient treatment as he is failed outpatient with 2 separate courses of antibiotics. Patient was admitted to the medicine service. Impression & Plan Cellulitis, Encounter for smoking cessation counseling Discharge Plan Visit Data *Final* Discharge Date/Time: 12/04/18 20:49 Chief Complaint: Infection, Wound Stated Complaint: B/L WOUND INFECTION ED Provider: Seth Villeda Discharge Problem: Cellulitis, Encounter for smoking cessation counseling Patient Disposition: Admitted As Inpatient Discharge Instructions Interventions: ED Discharge Assessment Last Done: 12/04/18 20:49 Discharge Problem: Cellulitis Qualifiers: Site of cellulitis: extremity Site of cellulitis of extremity: lower extremity Laterality: unspecified laterality Qualified Code(s): L03.119 - Cellulitis of unspecified part of limb The scribe's documentation has been prepared under my direction and personally reviewed by me in its entirety. I confirm that the note above accurately reflects all work, treatment, procedures, and medical decision making performed by me.
[2018-12-04] MEDS: ENOXAPARIN 100 MG/1ML SYR SQ SCH (23:31)
[2018-12-04] MEDS: FLUTICASONE/SALMETEROL (ADVAIR) 500/50 INH 14 PUFF INH SCH (23:32)
[2018-12-04] MEDS: WARFARIN SOD 5 MG TAB PO SCH (23:32)
[2018-12-04] MEDS: DOCUSATE SODIUM 100 MG CAP PO SCH (23:32)
[2018-12-04] MEDS: MIRTAZAPINE TAB 15 MG TAB PO SCH (23:32)
[2018-12-04] MEDS: PANTOprazole 40 MG TAB PO SCH (23:33)
[2018-12-04] MEDS: GABAPENTIN 300 MG CAP PO SCH (23:33)
[2018-12-05] MEDS: INSULIN ASPART 100 UNITS/ML 3 ML PEN SC SCH ×5 (00:12→20:29)
[2018-12-05] MEDS: HYDROCODONE/ACETAMOPHEN 5/325MG TAB PO PRN ×3 (00:17→14:48)
[2018-12-05] MEDS: MoRPHine SULFATE 4 MG/ML 1 ML CARP\\VIAL IV PRN ×5 (02:39→22:03)
[2018-12-05 05:41] LABS: Basophils # (auto) 0.02 K/uL (0-0.2); Basophils % (auto) 0.6 %; Eosinophils # (auto) 0.07 K/uL (0-0.5); Eosinophils % (auto) 2.2 %; Hematocrit (blood only) 36.1 % (42-52); Hemoglobin 11.8 g/dL (14.0-18.0); Lymphocytes # (auto) 1.04 K/uL (1.2-3.4); Lymphocytes % (auto) 32.6 %; Mean Corpuscular Hgb Conc 32.7 g/dL (32-36); Mean Corpuscular Volume 88.9 fL (80-100); Mean Platelet Volume 9.5 fL (7.4-10.4); Monocytes # (auto) 0.22 K/uL (0.11-0.59); Monocytes % (auto) 6.9 %; Neutrophils # (auto) 1.84 K/uL (1.4-6.5); Neutrophils % (auto) 57.7 %; Platelet Count 158 K/uL (130-400); RDW Coefficient of Variation 17.9 % (11.5-14.5); RDW Standard Deviation 58.1 fL (36.4-46.3); Red Blood Count 4.06 M/uL (4.7-6.1); White Blood Count 3.19 K/uL (4.8-10.8)
[2018-12-05 06:02] LABS: BUN Creatinine Ratio 7.1 (10-20); Calcium 8.2 mg/dl (8.5-10.1); Creatinine Clr Calc Pharmacy 155.8 ml/min; Est GFR (African American) 128.6; Magnesium 2.2 mg/dl (1.8-2.4); Potassium 3.5 mmol/L (3.5-5.1)
[2018-12-05 06:16] LABS: INR 1.1 (0.9-1.1); Prothrombin Time 11.5 Seconds (9.0-12.0)
[2018-12-05 07:22] LABS: Estimated Average Glucose 148 mg/dl; Hemoglobin A1C 6.8 % (4.5-5.6)
[2018-12-05] MEDS: GABAPENTIN 300 MG CAP PO SCH ×3 (08:05→22:09)
[2018-12-05] MEDS: MULTIVITAMIN TAB PO SCH (08:05)
[2018-12-05] MEDS: DOCUSATE SODIUM 100 MG CAP PO SCH ×2 (08:05→22:09)
[2018-12-05] MEDS: FLUTICASONE/SALMETEROL (ADVAIR) 500/50 INH 14 PUFF INH SCH ×2 (08:05→22:08)
[2018-12-05] MEDS: FOLIC ACID 1 MG TAB PO SCH (08:06)
[2018-12-05] MEDS: SPIRONOLACTONE 25 MG TAB PO SCH (08:06)
[2018-12-05] MEDS: PANTOprazole 40 MG TAB PO SCH ×2 (08:06→22:09)
[2018-12-05] MEDS: FUROSEMIDE 20 MG TAB PO SCH (08:07)
[2018-12-05] MEDS ORDERED: PIPERACILLIN/TAZOBACTAM 4.5 GM in DEXTROSE 5% 100 ML IV ONE (08:45)
[2018-12-05] MEDS: ENOXAPARIN 100 MG/1ML SYR SQ SCH (09:13)
[2018-12-05] MEDS: VANCOMYCIN HCL 1,000 MG in SODIUM CHLORIDE 0.9% 250 ML IV SCH ×2 (10:34→21:47)
[2018-12-05] MEDS: EUCERIN CR 120 GM JAR EXT SCH (10:35)
--- NOTE | 2018-12-05 10:35 | Infectious Disease Consult ---
Date of Consultation December 05, 2018 Assessment & Plan (1) Bilateral cellulitis of lower leg: Patient with severe chronic venous stasis disease and lymphedema with chronic leg ulcerations with recurrent cellulitis in the setting of worsening leg ulcers. Agree with use of vancomycin and Zosyn pending further culture results. Length of IV antibiotics will be determined by clinical response. Will discuss need for closer observation after discharge given multiple recurrent admissions. Will follow. (2) Ulcer of lower extremity: History of Present Illness Reason for Consultation: Bilateral lower extremity recurrent wounds/infection Attending Physician: Juan Francisco Verduzco MD History of Present Illness 43-year-old male well-known to the infectious disease service with history of severe chronic lymphedema and venous stasis disease with chronic open wounds. Has a history of innumerable admissions for recurrent cellulitis, always does well with good healing, but then leaves hospital with rapid recurrence of infection and worsening of wounds. Recently hospitalized and treated with IV antibiotics with cultures growing MRSA and E. coli. Was on oral antibiotics but over the last several days had worsening erythema and pain prompting readmission. Has been started empirically on vancomycin and Zosyn. No report of significant fever. Pain currently 5 out of 10 in intensity both legs. Allergies Allergy/AdvReac Type Severity Reaction Status Date / Time peas Allergy Severe Swelling Verified 12/04/18 17:54 of Lip/Tongue/Throat Bactrim Allergy Intermediate hives Verified 04/12/18 15:58 sulfamethoxazole Allergy Intermediate hives Verified 12/04/18 17:54 trimethoprim Allergy Intermediate hives Verified 12/04/18 17:54 tuna oil Allergy Unknown . Verified 12/04/18 17:54 Home Medications Home Medications Medication Instructions Recorded Confirmed Type albuterol sulfate [Ventolin HFA] 1 puff INHALATION Q4H PRN 05/09/18 12/04/18 History docusate sodium [Colace] 100 mg PO BID 05/09/18 12/04/18 History folic acid 1 mg PO QAM 05/09/18 12/04/18 History multivitamin 1 tab PO QAM 05/09/18 12/04/18 History nicotine 1 patch TRANSDERMAL QAM PRN 05/09/18 12/04/18 History omeprazole 20 mg PO BID 05/09/18 12/04/18 History mirtazapine 15 mg PO HS #30 tab 05/15/18 12/04/18 Rx gabapentin 300 mg PO TID 08/16/18 12/04/18 History hydroxyzine HCl 50 mg PO HS PRN 08/16/18 12/04/18 History furosemide [Lasix] 40 mg PO QAM 08/20/18 12/04/18 History metformin 500 mg PO BIDM 08/20/18 12/04/18 History spironolactone [Aldactone] 100 mg PO QAM 08/20/18 12/04/18 History warfarin 15 mg PO 3XWK 08/20/18 12/04/18 History fluticasone propion-salmeterol 1 inh INHALATION BID 09/05/18 12/04/18 History [Advair Diskus] warfarin 10 mg PO 4XWK 09/05/18 12/04/18 History doxycycline hyclate 100 mg PO BID 10 Days #20 cap 11/27/18 12/04/18 Rx hydrocodone-acetaminophen [[place]] 1 tab PO Q6H PRN #15 tab 11/27/18 12/04/18 Rx cefdinir 300 mg PO BID 12/04/18 12/04/18 History oxycodone-acetaminophen 1 tab PO DAILY 12/04/18 12/04/18 History Patient History Medical History GERD (gastroesophageal reflux disease) (Chronic) Tobacco abuse (Chronic) Chronic ulcer of lower extremity (Chronic) bilateral Chronic venous stasis dermatitis of both lower extremities (Chronic) Hypercoagulable state (Chronic) Prothrombin Factor II Mutation, 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, borderline hyperhomocystemia Anxiety (Chronic) MRSA (methicillin resistant Staphylococcus aureus) infection (Chronic) History of ETOH abuse (Chronic) Chronic narcotic use (Chronic) Type 2 diabetes mellitus (Chronic) COPD (chronic obstructive pulmonary disease) (Chronic) Depression (Chronic) Pulmonary nodule (Chronic) CT chest 04/12/18 - 4 mm RUL nodule, f/u 12 months Venous insufficiency (chronic) (peripheral) (Chronic) Anxiety COPD (chronic obstructive pulmonary disease) Cellulitis Chronic deep vein thrombosis (DVT) Chronic narcotic use Chronic ulcer of leg "b/l" Chronic venous stasis dermatitis of both lower extremities Depression GERD (gastroesophageal reflux disease) HTN (hypertension) History of ETOH abuse Hypercoagulable state On 04/12/18 14:03 Yanira Martinez wrote "Prothrombin Factor II Mutation, 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 Chaudhari History of drainage of abscess [address] 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, boderline hyperhomocystemia Social History Preferred Language: Cam[place]onian Communication Ability: Effective Paper Testing Supervisor Required: No Beliefs That Will Affect Care: None marital status: Single Current Living Situation: Alone Other Information That Helps Us Care for You: No Feels Safe at Home: Yes Safety Concerns: Feels Safe At This Time Smoking Status: Current every day smoker Hx Alcohol Use: Yes Hx Substance Use: No Review of Systems All systems were reviewed and are negative except as per HPI Physical Exam Vital Signs (Past 24 Hours): Last Vital Signs Temp 36.5 C 12/05/18 07:31 Pulse 70 12/05/18 07:31 Resp 16 12/05/18 07:31 BP 111/76 12/05/18 07:31 Pulse Ox 98 12/05/18 07:31 Constitutional: WD/WN, vitals as above comfortable; no acute distress Eyes: PERRL, conjunctivae normal, anicteric sclerae ENMT: external ear and nose normal, oropharynx normal Neck: trachea midline, no thyromegaly neck nontender Respiratory: normal respiratory effort, lungs clear to auscultation normal percussion; does not use accessory muscles Cardiovascular: Rate/Rhythm: regular rate and regular rhythm Heart Sounds: normal S1 and normal S2; no gallop, no murmur and no cardiac rub Vessels: normal peripheral pulses; no JVD Gastrointestinal (Abdomen): normal bowel sounds, soft, nontender, no hepatosplenomegaly Musculoskeletal: Head/Neck/Chest: normocephalic, head atraumatic and neck supple Spine: thoracic spine normal to inspection and lumbar spine normal to inspection; no cervical spinal tenderness Skin: + wound (Multiple bilateral lower extremity wounds with necrotic debris and foul odor) Erythema both lower extremities extending into thigh Neurologic: patellar DTR's 2+ bilat, sensation intact no focal motor deficits Psychiatric: A+Ox3, euthymic affect Orientation: cooperative Lymphatic: no cervical or axillary lymphadenopathy no inguinal lymphadenopathy Results & Data Laboratory Results Short CBC 12/04/18 12/05/18 Range/Units 18:11 05:27 WBC 6.26 3.19 L (4.8-10.8) K/uL Hgb 12.8 L 11.8 L (14.0-18.0) g/dL Hct 38.5 L 36.1 L (42-52) % Plt Count 203 158 (130-400) K/uL BMP 12/04/18 12/05/18 18:11 05:27 Sodium 133 L 137 Potassium 3.6 3.5 Chloride 99 106 Carbon Dioxide 26 29 BUN 5 L 5 L Creatinine 0.89 0.76 Glucose 180 H 165 H Calcium 9.0 8.2 L Liver Function 12/04/18 Range/Units 18:11 Total Bilirubin 0.7 (0.2-1) mg/dl AST 20 (15-37) U/L ALT 40 (12-78) U/L Alkaline Phosphatase 100 (45-117) U/L Albumin 3.4 (3.4-5.0) gm/dl Diagnostic Findings Microbiology 12/04/18 17:57 Leg,Right Gram Stain - Final cc: ~ XR chest 1V portable CLINICAL HISTORY: 43 years-old Male presenting with Sepsis. TECHNIQUE: Portable upright AP view of the chest was obtained. COMPARISON: 10/18/2018. FINDINGS: Atherosclerosis of the aortic arch. Cardiac silhouette normal in size. Trace bronchial wall thickening may be present. Mild coarsening of lung markings. No focal opacity. No large effusion or pneumothorax. Osseous structures normal. Upper abdomen normal. IMPRESSION: 1. Coarsened lung markings slightly exaggerated from the prior exam. No focal infiltrate to suggest pneumonia. An underlying reactive airways disease or viral bronchiolitis is not excluded. Electronically signed by: Antoni Rod M.D. 12/04/2018 6:18 PM Dictated: 12/04/181816 Transcribed: 12/04/181816 (1) Ulcer of lower extremity Laterality: left Non-pressure ulcer stage: unspecified non-pressure ulcer stage Qualified Code(s): L97.929 - Non-pressure chronic ulcer of unspecified part of left lower leg with unspecified severity
--- NOTE | 2018-12-05 12:25 | Pharmacy Report ---
Pharmacy Abx Initial Consult - Date of Service December 05, 2018 - Pharmacy Dosing Scope Date of Consult: 12/04 Consultation requested by: Dr. Schaefer Pharmacy is consulted to initiate vancomycin/zosyn IV/PO dosing therapy, order appropriate labs and adjust drug dose/frequency. - Subjective The patient is a 43 year old M admitted on 12/04/18 20:08. - Objective Height: 5 ft 10 in Weight: 112.491 kg Vital Signs (Past 12hrs): Vital Signs Temp Pulse Resp BP Pulse Ox 12/05/18 07:31 36.5 C 70 16 111/76 98 Lab Results (24hrs): Laboratory Tests (24 Hours) 12/05/18 12/05/18 12/04/18 05:27 05:27 18:11 WBC 3.19 L Neut # (Auto) 1.84 Creatinine 0.76 Est Cr Clr Drug Dosing 155.8 Procalcitonin < 0.05 12/04/18 12/04/18 18:11 18:11 WBC 6.26 Neut # (Auto) 4.59 Creatinine 0.89 Est Cr Clr Drug Dosing 132.2 Procalcitonin Micro Results: 12/04/18 17:57 Gram Stain - Final Leg,Right Wound Culture - Pending 12/04/18 18:30 Blood Culture - Pending Blood 12/04/18 18:11 Blood Culture - Pending Blood - Risk Factors for Resistance * History of infection with a multidrug-resistant organism: MRSA, E.Coli * Antimicrobial use within the last 90 days; levofloxacin,cefdinir,doxycycline - Assessment & Plan Assessment 43 year old M with worsening leg pain/ulceration after oral outpatient treatment with cefdinir;doxycycline; levofloxacin(switched to cefdinir). Wound cultures from 11/27 growing E. coli, MRSA, diptheroids. Patient started on zosyn/vancomycin pending new culture results. Infectious Disease consulted. Plan Vancomycin IV Received a 2750 mg loading dose. Recent admissions patient was supratherapeutic on 1250 mg Q12H with similar SCr, therapeutic on 1000 mg Q12H- will start with this dose initially and adjust as needed. * Goal trough level 15-20 mcg/mL * Trough ordered for 12/06 @0830 Piperacillin/tazobactam * 4.5 g bolus administered over 30 minutes, then 4.5g IV extended infusion every 8 hours for CrCl greater than 20 mL/min OR every 12 hours for CrCl 20 mL/min or less and dialysis. * Aggressive dosing selected due to BMI 35 or more Pharmacy will continue to follow and will adjust dose/frequency as necessary. Thank you.
[2018-12-05] MEDS: PIPERACILLIN/TAZOBACTAM 4.5 GM in DEXTROSE 5% 100 ML IV SCH ×2 (14:48→21:52)
[2018-12-05] MEDS: WARFARIN SOD 10 MG TAB PO SCH (15:44)
[2018-12-05] MEDS: OXYCODONE/ACETAMINOPHEN 5mg/325mg TAB PO PRN (20:24)
[2018-12-05] MEDS: MIRTAZAPINE TAB 15 MG TAB PO SCH (22:09)
[2018-12-05] MEDS: ENOXAPARIN INJ 120 MG/0.8 ML SYR SQ SCH (22:11)
--- NOTE | 2018-12-06 00:01 | Hospitalist Progress Note ---
Date of Service December 06, 2018 delayed entry date of service 12/05 Assessment & Plan (1) Bilateral cellulitis of lower leg: ASSESSMENT AND PLAN: This is a 43-year-old male who presents with recurrent lower extremity wounds and infection. 1. Recurrent lower extremity wounds and infection, venous stasis ulcers. History of MRSA and pseudomonas infection in the past. This has been going on for the last 2 years as per patient. -- afebrile -- cultures pending -- ID consulted continue Vanco, Zosyn Wound Care SVC consulted -- on Lasix, Aldactone montior 2. Diabetes, hold his metformin, placed on insulin sliding scale. Follow his HbA1c levels. -- A1c 6.8 3. Heterozygous MTHFR mutation. History of deep vein thrombosis, on Coumadin. His INR is subtherapeutic. -- INR subetherapeutic Lovenox + Coumadin 4. History of alcoholism and alcoholic liver cirrhosis. He says he quit drinking last April. -- no signs of withdrawal 5. History of chronic obstructive pulmonary disease, asthma. -- stable continue Advair 6. Tobacco abuse, nicotine patch. 7. Depression. Continue his Remeron. 8. Gastroesophageal reflux disease, continue his PPI. 9. Deep venous thrombosis prophylaxis. We will place him on Lovenox bridge until his INR is therapeutic. DISPOSITION: Closely monitor in the med/surg floor. Level 1 full code. PT and OT prior to discharge. Social service to help with discharge planning. -- may need to transition to Rehab/SNF Subjective ff up for leg cellulitis seen resting in bed, comfortable not in distress states he has pain on the lower ext, not adequately relieved by [place], requests Percocet which he usually takes denies fever/chills denies chest pain, dyspnea, palpitations, dizziness no other symptoms Physical Exam Vital Signs (Past 24 Hours): Last Vital Signs Temp 36.7 C 12/05/18 22:49 Pulse 77 12/05/18 22:49 Resp 18 12/05/18 22:49 BP 114/76 12/05/18 22:49 Pulse Ox 96 12/05/18 22:49 Physical Exam: General- oriented x 3, not in distress, speaks in sentences with no effort or accessory muscle use Eyes- anicteric Neck- no JVD Lungs- clear breath sounds bilaterally, no rales/wheezes Heart- normal rate, regular rhythm; no murmurs Abdomen- normal bowel sounds, nondistended, soft, nontender Extremities- dressings in placed on b/l lower extremities no surrounding erythema, edema, tenderness, warmth no pretibial edema, no calf tenderness Neuro- alert, oriented x 3; no gross focal neurologic deficits Skin- warm & dry Results & Data Laboratory Results noted , reviewed
[2018-12-06] MEDS: OXYCODONE/ACETAMINOPHEN 5mg/325mg TAB PO PRN ×3 (02:12→17:26)
[2018-12-06] MEDS: MoRPHine SULFATE 4 MG/ML 1 ML CARP\\VIAL IV PRN ×5 (04:28→23:23)
[2018-12-06] MEDS: PIPERACILLIN/TAZOBACTAM 4.5 GM in DEXTROSE 5% 100 ML IV SCH (06:08)
[2018-12-06] MEDS ORDERED: VANCOMYCIN TROUGH ONE (08:30)
[2018-12-06 09:05] LABS: INR 1.6 (0.9-1.1); Prothrombin Time 16.1 Seconds (9.0-12.0)
[2018-12-06 09:16] LABS: Creatinine Clr Calc Pharmacy 146.2 ml/min; Est GFR (African American) 125.3; Est GFR (Non-African American) 108.1
[2018-12-06] MEDS: VANCOMYCIN HCL 1,000 MG in SODIUM CHLORIDE 0.9% 250 ML IV SCH (09:55)
[2018-12-06] MEDS: INSULIN ASPART 100 UNITS/ML 3 ML PEN SC SCH ×4 (10:00→21:51)
[2018-12-06] MEDS: SPIRONOLACTONE 25 MG TAB PO SCH (10:01)
[2018-12-06] MEDS: FLUTICASONE/SALMETEROL (ADVAIR) 500/50 INH 14 PUFF INH SCH ×2 (10:01→21:54)
[2018-12-06] MEDS: ENOXAPARIN INJ 120 MG/0.8 ML SYR SQ SCH ×2 (10:02→21:55)
[2018-12-06] MEDS: PANTOprazole 40 MG TAB PO SCH ×2 (10:03→21:56)
[2018-12-06] MEDS: DOCUSATE SODIUM 100 MG CAP PO SCH ×2 (10:03→21:56)
[2018-12-06] MEDS: FOLIC ACID 1 MG TAB PO SCH (10:03)
[2018-12-06] MEDS: GABAPENTIN 300 MG CAP PO SCH ×3 (10:03→21:56)
[2018-12-06] MEDS: MULTIVITAMIN TAB PO SCH (10:03)
[2018-12-06] MEDS: FUROSEMIDE 20 MG TAB PO SCH (10:04)
[2018-12-06] MEDS: EUCERIN CR 120 GM JAR EXT SCH (10:04)
[2018-12-06 10:32] LABS: BUN Creatinine Ratio 7.1 (10-20); Creatinine Clr Calc Pharmacy 142.6 ml/min; Potassium 4.1 mmol/L (3.5-5.1)
--- NOTE | 2018-12-06 10:33 | Hospitalist Progress Note ---
Date of Service December 06, 2018 Assessment & Plan (1) Bilateral cellulitis of lower leg: ASSESSMENT AND PLAN: This is a 43-year-old male who presents with recurrent lower extremity wounds and infection. 1. Recurrent lower extremity wounds and infection, venous stasis ulcers. History of MRSA and pseudomonas infection in the past. This has been going on for the last 2 years as per patient. --remains afebrile -- cultures: so far, patient growing E coli -- ID consulted started on Vanco, Zosyn--> change to Dapto to prevent kidney injury (on Lasix, Aldactone), continue Zosyn for now Wound Care SVC consulted -- on Lasix, Aldactone montior 2. Diabetes, hold his metformin, placed on insulin sliding scale. Follow his HbA1c levels. -- A1c 6.8 3. Heterozygous MTHFR mutation. History of deep vein thrombosis, on Coumadin. His INR is subtherapeutic. -- INR subetherapeutic Lovenox + Coumadin -- INR 1.6 monitor 4. History of alcoholism and alcoholic liver cirrhosis. He says he quit drinking last April. -- no signs of withdrawal 5. History of chronic obstructive pulmonary disease, asthma. -- (+) wheezing dry cough CXR no pneumonia -- add Nebs TID monitor continue Advair 6. Tobacco abuse, nicotine patch. 7. Depression. Continue his Remeron. 8. Gastroesophageal reflux disease, continue his PPI. 9. Deep venous thrombosis prophylaxis. We will place him on Lovenox bridge until his INR is therapeutic. DISPOSITION: Closely monitor in the med/surg floor. Level 1 full code. PT and OT prior to discharge. Social service to help with discharge planning. -- may need to transition to Rehab/SNF Subjective ff up for leg cellulitis seen resting in bed, comfortable states leg pain is somewhat better denies fever/chills no chest pain, dyspnea has dry cough- mild no other symptoms Physical Exam Vital Signs (Past 24 Hours): Last Vital Signs Temp 36.7 C 12/06/18 07:00 Pulse 77 12/06/18 07:00 Resp 16 12/06/18 07:00 BP 112/73 12/06/18 07:00 Pulse Ox 93 12/06/18 07:00 Physical Exam: General- oriented x 3, not in distress, speaks in sentences with no effort or accessory muscle use Eyes- anicteric Neck- no JVD Lungs- (+) mild wheeze BL no crackles Heart- normal rate, regular rhythm; no murmurs Abdomen- normal bowel sounds, nondistended, soft, nontender Extremities-dressings in place: no discharge/bleeding no edema/erythema/warmth surrounding the dressings Neuro- alert, oriented x 3; no gross focal neurologic deficits Skin- warm & dry Results & Data Laboratory Results noted , reviewed
[2018-12-06 10:52] LABS: Basophils # (auto) 0.02 K/uL (0-0.2); Basophils % (auto) 0.7 %; Eosinophils # (auto) 0.07 K/uL (0-0.5); Eosinophils % (auto) 2.4 %; Hematocrit (blood only) 39.4 % (42-52); Hemoglobin 12.7 g/dL (14.0-18.0); Immature Granulocytes # (auto) 0.01 K/uL (0.00-0.02); Immature Granulocytes % (auto) 0.3 %; Lymphocytes # (auto) 0.94 K/uL (1.2-3.4); Lymphocytes % (auto) 32.5 %; Mean Corpuscular Hgb Conc 32.2 g/dL (32-36); Mean Corpuscular Volume 91.8 fL (80-100); Mean Platelet Volume 9.7 fL (7.4-10.4); Monocytes # (auto) 0.23 K/uL (0.11-0.59); Neutrophils # (auto) 1.62 K/uL (1.4-6.5); Neutrophils % (auto) 56.1 %; Platelet Count 185 K/uL (130-400); RDW Coefficient of Variation 17.9 % (11.5-14.5); RDW Standard Deviation 60.1 fL (36.4-46.3); Red Blood Count 4.29 M/uL (4.7-6.1); White Blood Count 2.89 K/uL (4.8-10.8)
[2018-12-06] MEDS: LEVALBUTEROL HCL 0.63 MG/3 ML NEB NEB SCH ×3 (11:40→19:05)
[2018-12-06] MEDS: CEFTAROLINE FOSAMIL ACETATE 600 MG in SODIUM CHLORIDE 0.9% 250 ML IV SCH ×2 (12:17→22:01)
[2018-12-06] MEDS: WARFARIN SOD 5 MG TAB PO SCH (17:27)
--- NOTE | 2018-12-06 20:31 | Infectious Disease Progress Nt ---
Date of Service December 06, 2018 Assessment & Plan (1) Bilateral cellulitis of lower leg: Patient with severe chronic venous stasis disease and lymphedema with chronic leg ulcerations with recurrent cellulitis in the setting of worsening leg ulcers. Patient previously with MRSA, now with E. coli. Patient changed to IV ceftaroline, with length of IV antibiotics to be determined by clinical response. Will follow. (2) Ulcer of lower extremity: Subjective Patient seen in follow-up for recurrent lower extremity cellulitis. Complaining of pain in both legs, drainage continues. Remains afebrile. Cultures so far growing gram-negative bacilli. Review of Systems All systems reviewed & are unremarkable except as noted in HPI & below Physical Exam Vital Signs (Past 24 Hours): Last Vital Signs Temp 36.6 C 12/06/18 15:06 Pulse 77 12/06/18 19:05 Resp 18 12/06/18 19:05 BP 119/77 12/06/18 15:06 Pulse Ox 97 12/06/18 19:05 Constitutional: WD/WN, vitals as above comfortable; no acute distress Eyes: PERRL, conjunctivae normal, anicteric sclerae ENMT: external ear and nose normal, oropharynx normal Neck: trachea midline, no thyromegaly neck nontender Respiratory: normal respiratory effort, lungs clear to auscultation normal percussion; does not use accessory muscles Cardiovascular: Rate/Rhythm: regular rate and regular rhythm Heart Sounds: normal S1 and normal S2; no gallop, no murmur and no cardiac rub Vessels: normal peripheral pulses; no JVD Gastrointestinal (Abdomen): normal bowel sounds, soft, nontender, no hepatosplenomegaly Musculoskeletal: Head/Neck/Chest: normocephalic, head atraumatic and neck supple Spine: thoracic spine normal to inspection and lumbar spine normal to inspection; no cervical spinal tenderness Skin: + wound (Multiple bilateral lower extremity wounds with necrotic debris and foul odor) Neurologic: patellar DTR's 2+ bilat, sensation intact no focal motor deficits Psychiatric: A+Ox3, euthymic affect Orientation: cooperative Lymphatic: no cervical or axillary lymphadenopathy no inguinal lympha denopathy Results & Data Diagnostic Findings Laboratory Results - last 48 hr 12/04/18 12/04/18 12/05/18 21:31 23:27 05:27 WBC RBC Hgb Hct MCV MCH MCHC RDW Std Deviation RDW Coeff of Kip Plt Count MPV Immature Gran % (Auto) Neut % (Auto) Lymph % (Auto) Weber % (Auto) Eos % (Auto) Baso % (Auto) Immature Gran # (Auto) Neut # (Auto) Lymph # (Auto) Weber # (Auto) Eos # (Auto) Baso # (Auto) PT 11.5 INR 1.1 Sodium Potassium Chloride Carbon Dioxide Anion Gap BUN Creatinine Est Cr Clr Drug Dosing Est GFR ( Amer) Est GFR (Non-Af Amer) BUN/Creatinine Ratio Glucose POC Glucose 218 H 225 H Estimat Average Glucose Hemoglobin A1c Calcium Magnesium Vancomycin Trough 12/05/18 12/05/18 12/05/18 05:27 05:27 05:27 WBC 3.19 L RBC 4.06 L Hgb 11.8 L Hct 36.1 L MCV 88.9 MCH 29.1 MCHC 32.7 RDW Std Deviation 58.1 H RDW Coeff of Kip 17.9 H Plt Count 158 MPV 9.5 Immature Gran % (Auto) 0.0 Neut % (Auto) 57.7 Lymph % (Auto) 32.6 Weber % (Auto) 6.9 Eos % (Auto) 2.2 Baso % (Auto) 0.6 Immature Gran # (Auto) 0.00 Neut # (Auto) 1.84 Lymph # (Auto) 1.04 L Weber # (Auto) 0.22 Eos # (Auto) 0.07 Baso # (Auto) 0.02 PT INR Sodium 137 Potassium 3.5 Chloride 106 Carbon Dioxide 29 Anion Gap 2.0 L BUN 5 L Creatinine 0.76 Est Cr Clr Drug Dosing 155.8 Est GFR ( Amer) 128.6 Est GFR (Non-Af Amer) 111.0 BUN/Creatinine Ratio 7.1 L Glucose 165 H POC Glucose Estimat Average Glucose 148 Hemoglobin A1c 6.8 H Calcium 8.2 L Magnesium 2.2 Vancomycin Trough 12/05/18 12/05/18 12/05/18 08:02 12:05 17:23 WBC RBC Hgb Hct MCV MCH MCHC RDW Std Deviation RDW Coeff of Kip Plt Count MPV Immature Gran % (Auto) Neut % (Auto) Lymph % (Auto) Weber % (Auto) Eos % (Auto) Baso % (Auto) Immature Gran # (Auto) Neut # (Auto) Lymph # (Auto) Weber # (Auto) Eos # (Auto) Baso # (Auto) PT INR Sodium Potassium Chloride Carbon Dioxide Anion Gap BUN Creatinine Est Cr Clr Drug Dosing Est GFR ( Amer) Est GFR (Non-Af Amer) BUN/Creatinine Ratio Glucose POC Glucose 161 H 202 H 172 H Estimat Average Glucose Hemoglobin A1c Calcium Magnesium Vancomycin Trough 12/05/18 12/06/18 12/06/18 20:12 08:16 08:36 WBC RBC Hgb Hct MCV MCH MCHC RDW Std Deviation RDW Coeff of Kip Plt Count MPV Immature Gran % (Auto) Neut % (Auto) Lymph % (Auto) Weber % (Auto) Eos % (Auto) Baso % (Auto) Immature Gran # (Auto) Neut # (Auto) Lymph # (Auto) Weber # (Auto) Eos # (Auto) Baso # (Auto) PT 16.1 H INR 1.6 H Sodium Potassium Chloride Carbon Dioxide Anion Gap BUN Creatinine Est Cr Clr Drug Dosing Est GFR ( Amer) Est GFR (Non-Af Amer) BUN/Creatinine Ratio Glucose POC Glucose 188 H 180 H Estimat Average Glucose Hemoglobin A1c Calcium Magnesium Vancomycin Trough 12/06/18 12/06/18 12/06/18 08:36 08:36 08:42 WBC 2.89 L RBC 4.29 L Hgb 12.7 L Hct 39.4 L MCV 91.8 MCH 29.6 MCHC 32.2 RDW Std Deviation 60.1 H RDW Coeff of Kip 17.9 H Plt Count 185 MPV 9.7 Immature Gran % (Auto) 0.3 Neut % (Auto) 56.1 Lymph % (Auto) 32.5 Weber % (Auto) 8.0 Eos % (Auto) 2.4 Baso % (Auto) 0.7 Immature Gran # (Auto) 0.01 Neut # (Auto) 1.62 Lymph # (Auto) 0.94 L Weber # (Auto) 0.23 Eos # (Auto) 0.07 Baso # (Auto) 0.02 PT INR Sodium Potassium Chloride Carbon Dioxide Anion Gap BUN Creatinine 0.81 Est Cr Clr Drug Dosing 146.2 Est GFR ( Amer) 125.3 Est GFR (Non-Af Amer) 108.1 BUN/Creatinine Ratio Glucose POC Glucose Estimat Average Glucose Hemoglobin A1c Calcium Magnesium Vancomycin Trough 10.5 12/06/18 12/06/18 12/06/18 08:42 12:41 18:00 WBC RBC Hgb Hct MCV MCH MCHC RDW Std Deviation RDW Coeff of Kip Plt Count MPV Immature Gran % (Auto) Neut % (Auto) Lymph % (Auto) Weber % (Auto) Eos % (Auto) Baso % (Auto) Immature Gran # (Auto) Neut # (Auto) Lymph # (Auto) Weber # (Auto) Eos # (Auto) Baso # (Auto) PT INR Sodium 140 Potassium 4.1 D Chloride 107 Carbon Dioxide 28 Anion Gap 5.0 BUN 6 L Creatinine 0.83 Est Cr Clr Drug Dosing 142.6 Est GFR ( Amer) 124.0 Est GFR (Non-Af Amer) 107.0 BUN/Creatinine Ratio 7.1 L Glucose 159 H POC Glucose 171 H 140 H Estimat Average Glucose Hemoglobin A1c Calcium 9.0 Magnesium Vancomycin Trough Microbiology 12/04/18 17:57 Leg,Right Gram Stain - Final 12/04/18 17:57 Leg,Right Wound Culture - Preliminary Escherichia coli 12/04/18 18:11 Blood Blood Culture - Preliminary No growth to date. 12/04/18 18:30 Blood Blood Culture - Preliminary No growth to date. (1) Ulcer of lower extremity Laterality: left Non-pressure ulcer stage: unspecified non-pressure ulcer stage Qualified Code(s): L97.929 - Non-pressure chronic ulcer of unspecified part of left lower leg with unspecified severity
[2018-12-06] MEDS: MIRTAZAPINE TAB 15 MG TAB PO SCH (21:56)
[2018-12-07] MEDS: OXYCODONE/ACETAMINOPHEN 5mg/325mg TAB PO PRN ×3 (03:14→16:25)
[2018-12-07 06:09] LABS: INR 1.7 (0.9-1.1)
[2018-12-07 06:23] LABS: BUN Creatinine Ratio 9.9 (10-20); Calcium 8.7 mg/dl (8.5-10.1); Creatinine Clr Calc Pharmacy 142.6 ml/min; Potassium 3.9 mmol/L (3.5-5.1)
[2018-12-07] MEDS: LEVALBUTEROL HCL 0.63 MG/3 ML NEB NEB SCH ×3 (07:32→19:24)
[2018-12-07] MEDS: MoRPHine SULFATE 4 MG/ML 1 ML CARP\\VIAL IV PRN ×4 (08:05→23:40)
[2018-12-07] MEDS: INSULIN ASPART 100 UNITS/ML 3 ML PEN SC SCH ×4 (08:59→22:17)
[2018-12-07] MEDS: FLUTICASONE/SALMETEROL (ADVAIR) 500/50 INH 14 PUFF INH SCH ×2 (09:21→21:02)
[2018-12-07] MEDS: PANTOprazole 40 MG TAB PO SCH ×2 (09:22→20:55)
[2018-12-07] MEDS: GABAPENTIN 300 MG CAP PO SCH ×3 (09:22→20:55)
[2018-12-07] MEDS: DOCUSATE SODIUM 100 MG CAP PO SCH ×2 (09:22→20:54)
[2018-12-07] MEDS: FOLIC ACID 1 MG TAB PO SCH (09:22)
[2018-12-07] MEDS: MULTIVITAMIN TAB PO SCH (09:22)
[2018-12-07] MEDS: ENOXAPARIN INJ 120 MG/0.8 ML SYR SQ SCH ×2 (09:22→20:54)
[2018-12-07] MEDS: FUROSEMIDE 20 MG TAB PO SCH (09:23)
[2018-12-07] MEDS: EUCERIN CR 120 GM JAR EXT SCH (09:23)
[2018-12-07] MEDS: SPIRONOLACTONE 25 MG TAB PO SCH (09:23)
[2018-12-07] MEDS: CEFTAROLINE FOSAMIL ACETATE 600 MG in SODIUM CHLORIDE 0.9% 250 ML IV SCH ×2 (10:48→22:21)
[2018-12-07] MEDS: WARFARIN SOD 10 MG TAB PO SCH (16:18)
--- NOTE | 2018-12-07 17:04 | Hospitalist Progress Note ---
Date of Service December 07, 2018 Assessment & Plan (1) Bilateral cellulitis of lower leg: This is a 43-year-old male who presents with recurrent lower extremity wounds and infection. Recurrent lower extremity wounds and infection, venous stasis ulcers. History of MRSA and pseudomonas infection in the past. This has been going on for the last 2 years as per patient. Cultures: so far, patient growing E coli ID consulted-appreciate input and recommendation Started on Vanco, Zosyn--> change to Dapto to prevent kidney injury (on Lasix, Aldactone), continue Zosyn for now Wound Care SVC consulted-appreciate input and recommendation Discussed with the ID and will continue current antibiotic IV for a total of 4 weeks on discharge PICC line placed today and likely discharge tomorrow Discharge on Ceftaroline 600 mb Q12H for 4 weeks in total Diabetes, hold his metformin, placed on insulin sliding scale. -- A1c 6.8 3Heterozygous MTHFR mutation. History of deep vein thrombosis, on Coumadin. His INR is subtherapeutic. INR subetherapeutic Lovenox + Coumadin INR 1.7 on 12/07 Continue current dose of Coumadin History of alcoholism and alcoholic liver cirrhosis. He says he quit drinking last April. -- no signs of withdrawal History of chronic obstructive pulmonary disease, asthma. (+) wheezing Dry cough CXR no pneumonia Add Nebs TID Continue Advair Tobacco abuse, nicotine patch. Depression. Continue his Remeron. Gastroesophageal reflux disease, continue his PPI. Deep venous thrombosis prophylaxis. We will place him on Lovenox bridge until his INR is therapeutic. DISPOSITION: Likely discharge tomorrow Subjective 12/07 The patient was seen and examined the medical floor He has been complaining of bilateral leg pain and requiring intravenous narcotics to control Denies any chest pain, shortness of breath, palpitation, abdominal pain, nausea and/or vomiting Physical Exam Vital Signs (Past 24 Hours): Last Vital Signs Temp 36.9 C 12/07/18 15:34 Pulse 76 12/07/18 15:34 Resp 18 12/07/18 15:34 BP 119/80 12/07/18 15:34 Pulse Ox 96 12/07/18 15:34 Physical Exam: No apparent distress at rest Constitutional: WD/WN, vitals as above Eyes: PERRL, conjunctivae normal, anicteric sclerae ENMT: external ear and nose normal, oropharynx normal Neck: trachea midline, no thyromegaly Respiratory: normal respiratory effort Auscultation: lungs clear to auscultation bilaterally Cardiovascular: Rate/Rhythm: regular rate and regular rhythm Heart Sounds: normal S1 and normal S2 Gastrointestinal (Abdomen): Inspection/Auscultation: abdomen normal to inspection and normal bowel sounds Percussion/Palpation: abdomen soft; abdomen nontender Musculoskeletal: Extremities: + lower extremity abnormal to inspection (Chronic ischemic changes. Legs are bandaged bilaterally) Bilateral Neurologic: Alert, awake and oriented x3 Results & Data Laboratory Results [facility] 12/07/18 05:40 Sodium 138 Potassium 3.9 Chloride 105 Carbon Dioxide 30 BUN 8 Creatinine 0.83 Glucose 138 H Calcium 8.7 Medications Administered Current Inpatient Medications Acetaminophen (Tylenol) 650 mg PO Q4H PRN PRN Reason: pain/fever Stop: 01/03/19 21:49 Hydrocodone Bitart/Acetaminophen ([place]well 5/325) 1 tab PO Q6H PRN PRN Reason: pain Stop: 12/18/18 21:49 Last Admin: 12/05/18 14:48 Dose: 1 tab Documented by: Albuterol (Ventolin Hfa) 1 puffs INH Q4H PRN PRN Reason: Shortness Of Breath Stop: 01/03/19 21:49 Docusate Sodium (Colace) 100 mg PO BID [facility] Stop: 01/03/19 21:49 Last Admin: 12/07/18 09:22 Dose: 100 mg Documented by: Enoxaparin Sodium (Lovenox) 111 mg SQ Q12H OTILIA Stop: 01/04/19 20:59 Last Admin: 12/07/18 09:22 Dose: 111 mg Documented by: Folic Acid (Folvite) 1 mg PO QAM OTILIA Stop: 01/04/19 08:59 Last Admin: 12/07/18 09:22 Dose: 1 mg Documented by: Furosemide (Lasix) 40 mg PO QAM [facility] Stop: 01/04/19 08:59 Last Admin: 12/07/18 09:23 Dose: 40 mg Documented by: Gabapentin (Neurontin) 300 mg PO TID OTILIA Stop: 01/03/19 21:49 Last Admin: 12/07/18 13:10 Dose: 300 mg Documented by: Hydroxyzine HCl (Vistaril) 50 mg PO HS PRN PRN Reason: Sleep Stop: 01/03/19 21:49 Ceftaroline Fosamil 600 mg/ (Sodium Chloride) 270 mls @ 250 mls/hr IV Q12H OTILIA Stop: 12/16/18 10:59 Last Infusion: 12/07/18 11:53 Dose: Infused Documented by: Insulin Aspart (Novolog Flexpen) 0 units SC ACHS OTILIA Stop: 01/03/19 21:49 Last Admin: 12/07/18 13:11 Dose: 7 units Documented by: Levalbuterol HCl (Xopenex 0.63 Mg/3 Ml Neb) 0.63 mg NEB TID [facility] Stop: 01/05/19 10:29 Last Admin: 12/07/18 15:37 Dose: Not Given Documented by: Mirtazapine (Remeron) 15 mg PO HS [facility] Stop: 01/03/19 21:49 Last Admin: 12/06/18 21:56 Dose: 15 mg Documented by: Miscellaneous (Remove Nicoderm Patch) 1 ea N/A HS [facility] Stop: 01/04/19 20:59 Last Admin: 12/06/18 21:54 Dose: Not Given Documented by: Morphine Sulfate (Morphine Sulfate) 3 mg IV Q4H PRN PRN Reason: Pain Stop: 12/18/18 21:49 Last Admin: 12/07/18 13:33 Dose: 3 mg Documented by: Multi-Ingredient Cream (Hydrocerin) 1 appln EXT DAILY [facility] Stop: 01/04/19 08:59 Last Admin: 12/07/18 09:23 Dose: 1 appln Documented by: Multivitamins (Multivitamin Tab) 1 tab PO QAM OTILIA Stop: 01/04/19 08:59 Last Admin: 12/07/18 09:22 Dose: 1 tab Documented by: Nicotine (Nicoderm Cq) 14 mg TD QAM PRN PRN Reason: Withdrawal Symptoms Stop: 01/03/19 21:49 Ondansetron HCl (Zofran) 4 mg IV Q6H PRN PRN Reason: Nausea Stop: 01/03/19 21:49 Oxycodone/Acetaminophen (Percocet 5mg/325mg) 1 tab PO Q6H PRN PRN Reason: Pain Stop: 12/19/18 20:59 Last Admin: 12/07/18 16:25 Dose: 1 tab Documented by: Pantoprazole Sodium (Protonix) 40 mg PO BID [facility] Stop: 01/03/19 21:49 Last Admin: 12/07/18 09:22 Dose: 40 mg Documented by: Fluticasone/Salmeterol (Advair Diskus 500/50) 1 puffs INH BID [facility] Stop: 01/03/19 21:49 Last Admin: 12/07/18 09:21 Dose: 1 puffs Documented by: Spironolactone (Aldactone) 100 mg PO QAM [facility] Stop: 01/04/19 08:59 Last Admin: 12/07/18 09:23 Dose: 100 mg Documented by: Warfarin Sodium (Coumadin) 10 mg PO [id number]@1600 [facility] Stop: 01/04/19 15:59 Last Admin: 12/07/18 16:18 Dose: 10 mg Documented by: Warfarin Sodium (Coumadin) 15 mg PO TuThSa@1600 [facility] Stop: 01/03/19 21:59 Last Admin: 12/06/18 17:27 Dose: 15 mg Documented by:
[2018-12-07] MEDS: MIRTAZAPINE TAB 15 MG TAB PO SCH (20:55)
[2018-12-08] MEDS: MoRPHine SULFATE 4 MG/ML 1 ML CARP\\VIAL IV PRN ×3 (05:35→21:33)
[2018-12-08 07:17] LABS: Prothrombin Time 19.6 Seconds (9.0-12.0)
[2018-12-08] MEDS: LEVALBUTEROL HCL 0.63 MG/3 ML NEB NEB SCH ×3 (07:28→19:45)
[2018-12-08 07:34] LABS: BUN Creatinine Ratio 9.6 (10-20); Calcium 8.9 mg/dl (8.5-10.1); Creatinine Clr Calc Pharmacy 144.4 ml/min; Est GFR (African American) 124.6; Est GFR (Non-African American) 107.5; Potassium 4.2 mmol/L (3.5-5.1)
[2018-12-08] MEDS: OXYCODONE/ACETAMINOPHEN 5mg/325mg TAB PO PRN ×2 (09:00→16:40)
[2018-12-08] MEDS: GABAPENTIN 300 MG CAP PO SCH ×3 (09:01→21:39)
[2018-12-08] MEDS: PANTOprazole 40 MG TAB PO SCH ×2 (09:01→21:41)
[2018-12-08] MEDS: MULTIVITAMIN TAB PO SCH (09:01)
[2018-12-08] MEDS: FLUTICASONE/SALMETEROL (ADVAIR) 500/50 INH 14 PUFF INH SCH ×2 (09:01→21:39)
[2018-12-08] MEDS: DOCUSATE SODIUM 100 MG CAP PO SCH ×2 (09:02→21:39)
[2018-12-08] MEDS: FOLIC ACID 1 MG TAB PO SCH (09:02)
[2018-12-08] MEDS: EUCERIN CR 120 GM JAR EXT SCH (09:03)
[2018-12-08] MEDS: SPIRONOLACTONE 25 MG TAB PO SCH (09:03)
[2018-12-08] MEDS: FUROSEMIDE 20 MG TAB PO SCH (09:04)
[2018-12-08] MEDS: ENOXAPARIN INJ 120 MG/0.8 ML SYR SQ SCH ×2 (09:04→21:40)
[2018-12-08] MEDS: INSULIN ASPART 100 UNITS/ML 3 ML PEN SC SCH ×4 (09:06→21:46)
[2018-12-08] MEDS: CEFTAROLINE FOSAMIL ACETATE 600 MG in SODIUM CHLORIDE 0.9% 250 ML IV SCH ×2 (11:15→22:22)
[2018-12-08] MEDS: WARFARIN SOD 5 MG TAB PO SCH (16:46)
[2018-12-08] MEDS: MIRTAZAPINE TAB 15 MG TAB PO SCH (21:41)
[2018-12-09] MEDS: LEVALBUTEROL HCL 0.63 MG/3 ML NEB NEB SCH (07:05)
[2018-12-09] MEDS: MoRPHine SULFATE 4 MG/ML 1 ML CARP\\VIAL IV PRN ×2 (07:31→11:47)
[2018-12-09 08:05] LABS: INR 1.8 (0.9-1.1); Prothrombin Time 17.6 Seconds (9.0-12.0)
[2018-12-09 08:33] LABS: BUN Creatinine Ratio 10.2 (10-20); Calcium 9.4 mg/dl (8.5-10.1); Est GFR (African American) 125.9; Est GFR (Non-African American) 108.6; Potassium 4.1 mmol/L (3.5-5.1)
[2018-12-09] MEDS: INSULIN ASPART 100 UNITS/ML 3 ML PEN SC SCH ×2 (09:00→13:08)
[2018-12-09] MEDS: FLUTICASONE/SALMETEROL (ADVAIR) 500/50 INH 14 PUFF INH SCH (09:02)
[2018-12-09] MEDS: PANTOprazole 40 MG TAB PO SCH (09:02)
[2018-12-09] MEDS: MULTIVITAMIN TAB PO SCH (09:02)
[2018-12-09] MEDS: OXYCODONE/ACETAMINOPHEN 5mg/325mg TAB PO PRN (09:02)
[2018-12-09] MEDS: GABAPENTIN 300 MG CAP PO SCH ×2 (09:02→13:06)
[2018-12-09] MEDS: SPIRONOLACTONE 25 MG TAB PO SCH (09:03)
[2018-12-09] MEDS: DOCUSATE SODIUM 100 MG CAP PO SCH (09:03)
[2018-12-09] MEDS: FUROSEMIDE 20 MG TAB PO SCH (09:03)
[2018-12-09] MEDS: ENOXAPARIN INJ 120 MG/0.8 ML SYR SQ SCH (09:04)
[2018-12-09] MEDS: FOLIC ACID 1 MG TAB PO SCH (09:04)
[2018-12-09] MEDS: EUCERIN CR 120 GM JAR EXT SCH (09:04)
--- NOTE | 2018-12-09 10:24 | Hospitalist Progress Note ---
Date of Service December 09, 2018 delayed entry date of service 12/08/18 Assessment & Plan (1) Bilateral cellulitis of lower leg: pain improving afebrile s/p PICC line placed Discharge on Ceftaroline 600 mg Q12H for 4 weeks in total Diabetes, hold his metformin, placed on insulin sliding scale. -- A1c 6.8 Heterozygous MTHFR mutation. History of deep vein thrombosis, on Coumadin. His INR is subtherapeutic. INR subetherapeutic Lovenox + Coumadin INR 2.0 Continue current dose of Coumadin History of alcoholism and alcoholic liver cirrhosis. He says he quit drinking last April. -- no signs of withdrawal History of chronic obstructive pulmonary disease, asthma. wheezing resolved Continue Advair, Nebs PRN Tobacco abuse, nicotine patch. Depression. Continue his Remeron. Gastroesophageal reflux disease, continue his PPI. Deep venous thrombosis prophylaxis. We will place him on Lovenox bridge until his INR is therapeutic. DISPOSITION: d/c to SNF ff up with ID clinic c/o Dr. Perez in 1 week after discharge Subjective ff up for leg cellulitis seen resting in bed, comfortable had some nausea earlier, resolved no abdominal pain (+) BMs- normal no chest pain, dyspnea, palpitations no other symptoms Physical Exam Vital Signs (Past 24 Hours): Last Vital Signs Temp 36.5 C 12/09/18 08:00 Pulse 72 12/09/18 08:00 Resp 16 12/09/18 08:00 BP 111/75 12/09/18 08:00 Pulse Ox 92 12/09/18 08:00 Physical Exam: General- oriented x 3, not in distress, speaks in sentences with no effort or accessory muscle use Eyes- anicteric Neck- no JVD Lungs- clear BS bilaterally no rales/wheezing Heart- normal rate, regular rhythm; no murmurs Abdomen- normal bowel sounds, nondistended, soft, nontender Extremities- lower legs: dressing in place, no discharge/bleeding no edema, erythema surrounding the dressings no pretibial edema, no calf tenderness Neuro- alert, oriented x 3; no gross focal neurologic deficits Skin- warm & dry
[2018-12-09] MEDS: CEFTAROLINE FOSAMIL ACETATE 600 MG in SODIUM CHLORIDE 0.9% 250 ML IV SCH (11:47)
--- NOTE | 2018-12-09 12:03 | Hospitalist Progress Note ---
Date of Service December 09, 2018 Assessment & Plan (1) Bilateral cellulitis of lower leg: pain continues to improve afebrile s/p PICC line placed Discharge on Ceftaroline 600 mg Q12H for 4 weeks in total Daily wound care as per d/c instructions ff up with ID Clinic Dr. Perez in [facility] probiotic/yogurt daily Diabetes, -- resume Metformin -- A1c 6.8 Heterozygous MTHFR mutation. History of deep vein thrombosis, on INR 1.8 on discharge day Lovenox + Coumadin check INR daily and titrate Lovenox + Coumadin accordingly History of alcoholism and alcoholic liver cirrhosis. He says he quit drinking last April. -- no signs of withdrawal History of chronic obstructive pulmonary disease, asthma. wheezing resolved Continue Advair, Nebs PRN Tobacco abuse, nicotine patch. Depression. Continue his Remeron. Gastroesophageal reflux disease, continue his PPI. Deep venous thrombosis prophylaxis. Coumadin + Lovenox bridge until his INR is therapeutic. DISPOSITION: d/c to SNF ff up with ID clinic c/o Dr. Perez in 1 week after discharge [facility] Subjective ff up for leg cellulitis seen resting in bed comfortable states he feels better overall denies chest pain, dyspnea, palpitations, dizziness leg pain adequately controlled no bleeding no other symptoms Physical Exam Vital Signs (Past 24 Hours): Last Vital Signs Temp 36.5 C 12/09/18 08:00 Pulse 72 12/09/18 08:00 Resp 16 12/09/18 08:00 BP 111/75 12/09/18 08:00 Pulse Ox 92 12/09/18 08:00 Physical Exam: General- oriented x 3, not in distress, speaks in sentences with no effort or accessory muscle use Eyes- anicteric Neck- no JVD Lungs- clear BS BL, no crackles/wheezing Heart- normal rate, regular rhythm; no murmurs Abdomen- normal bowel sounds, nondistended, soft, nontender Extremities- examined with RN at bedside (+) lichenified plaques anteriorly, small open areas on left anterior aspect, healing, no active discharge/bleeding edema has improved- mild Neuro- alert, oriented x 3; no gross focal neurologic deficits Skin- warm & dry Results & Data Laboratory Results Laboratory Results - last 24 hr 12/08/18 12/08/18 12/08/18 11:59 17:26 20:10 PT INR Sodium Potassium Chloride Carbon Dioxide Anion Gap BUN Creatinine Est Cr Clr Drug Dosing Est GFR ( Amer) Est GFR (Non-Af Amer) BUN/Creatinine Ratio Glucose POC Glucose 173 H 132 H 232 H Calcium 12/09/18 12/09/18 12/09/18 07:45 07:45 08:18 PT 17.6 H INR 1.8 H Sodium 139 Potassium 4.1 Chloride 105 Carbon Dioxide 28 Anion Gap 6.0 BUN 8 Creatinine 0.80 Est Cr Clr Drug Dosing 148.0 Est GFR ( Amer) 125.9 Est GFR (Non-Af Amer) 108.6 BUN/Creatinine Ratio 10.2 Glucose 132 H POC Glucose 141 H Calcium 9.4
--- NOTE | 2018-12-09 12:13 | Discharge Summary ---
Date of Service December 09, 2018 Admission HPI Per Admitting Provider DATE OF ADMISSION: 12/04/2018 CHIEF COMPLAINT: Bilateral lower extremity wounds. HISTORY OF PRESENT ILLNESS: This is a 43-year-old male with past medical history significant for heterozygous MTHFR mutation, hemosiderosis, type 2 diabetes, COPD, moderate asthma, chronic deep vein thrombosis of femoral vein, venous insufficiency, alcoholic liver cirrhosis with ascites, venous stasis ulcers of both the legs, thrombocytopenia, depression, tobacco use disorder, who presents with lower extremity wounds. The patient has recurrent infection of the lower extremities, from venous stasis ulcers. He says he is having this problem for the last 2 years . He says the wounds cleared up and gets closed and one month later they again open up and get infected. Last time, he was admitted from 10/18/2018 to 10/25/2018 for same issue and the cultures grew MRSA and pseudomonas. He was treated with daptomycin and Zosyn and he was sent to rehab. He said he got a total of 3 weeks of antibiotics and he did fine and the wounds almost closed up, but again a month later they started to open up and he was in the ER on 11/27/2018 and he was discharged on Omnicef and doxycycline, but that is not helping. He is having foul smelling and there is a lot of pain in the lower extremity and that prompted him to come to the ER. He denies any fevers, but he has some sweating last 2 nights. Ambulates okay. Lives alone. Poor appetite last couple of days. Denies any headache, no blurred vision, no earache, no runny nose, no sore throat, no difficulty swallowing. No cough, no chest pain, no shortness of breath. Feeling somewhat nauseous, no vomiting, no abdominal pain. Normal bowel and bladder movements. No hematuria, no burning micturition, no melena, no hematochezia. Currently resting comfortable and hemodynamically stable. Admission Exam Per Admitting Provider GENERAL: The patient is obese, not in acute distress. VITAL SIGNS: Temperature 37.5, pulse 97, respiratory rate 17, blood pressure 113/85, oxygen 95% room air. HEENT: No pallor, no icterus. Pupils equal, round, and reactive to light. NECK: No JVD, no neck masses, no carotid bruit. CARDIOVASCULAR: S1, S2 heard, regular rate and rhythm, no murmur, no gallop. ABDOMEN: Soft, bowel sounds present. Nontender. No distention. CENTRAL NERVOUS SYSTEM: Cranial nerves II-XII grossly intact, nonfocal. EXTREMITIES: Lower extremity edema present. venous stasis ulcers seen and foul-smelling mild serosanguinous discharge seen, they are wrapped in dressing. Principal Diagnosis Recurrent lower leg cellulitis, chronic venous stasis and lymphedema with chronic ulcers Discharge Exam Vital Signs (Past 24 Hours): Last Vital Signs Temp 36.5 C 12/09/18 08:00 Pulse 72 12/09/18 08:00 Resp 16 12/09/18 08:00 BP 111/75 12/09/18 08:00 Pulse Ox 92 12/09/18 08:00 Physical Exam: General- oriented x 3, not in distress, speaks in sentences with no effort or accessory muscle use Eyes- anicteric Neck- no JVD Lungs- clear BS BL, no crackles/wheezing Heart- normal rate, regular rhythm; no murmurs Abdomen- normal bowel sounds, nondistended, soft, nontender Extremities- examined with RN at bedside (+) lichenified plaques anteriorly, small open areas on left anterior aspect, healing, no active discharge/bleeding edema has improved- mild Neuro- alert, oriented x 3; no gross focal neurologic deficits Discharge Data Allergies Allergy/AdvReac Type Severity Reaction Status Date / Time peas Allergy Severe Swelling Verified 12/04/18 17:54 of Lip/Tongue/Throat Bactrim Allergy Intermediate hives Verified 04/12/18 15:58 sulfamethoxazole Allergy Intermediate hives Verified 12/04/18 17:54 trimethoprim Allergy Intermediate hives Verified 12/04/18 17:54 tuna oil Allergy Unknown . Verified 12/04/18 17:54 Consultations 12/04/18 19:34 ED Decision to Admit Stat 12/04/18 21:50 Consult Case Management - Discharge Planning Routine 12/05/18 08:00 Consult Infectious Diseases Routine Hospital Course (1) Bilateral cellulitis of lower leg: History of chronic venous stasis, lymphedema, chronic leg ulcers With recurrent cellulitis Wound cultures: Growing MRSA and E. coli Blood cultures: Negative Infectious disease service consulted, Dr. Perez Initially on Vanco and Zosyn, transition to Ceftaroline IV Patient improved Dr. Perez recommends 4 weeks total of ceftaroline IV via PICC line Wound care service also on board Discharge on Ceftaroline 600 mg Q12H for 4 weeks in total Daily wound care as per d/c instructions ff up with ID Clinic Dr. Perez in 1 week ff up with [facility] in 1 week probiotic/yogurt daily Diabetes -- resume Metformin -- A1c 6.8 Heterozygous MTHFR mutation. History of deep vein thrombosis, on INR 1.8 on discharge day Patient should receive Coumadin 12.5 mg on December 09, 2018 Continue Coumadin with Lovenox bridge until INR therapeutic between 2 and 3 check INR daily and titrate Lovenox + Coumadin accordingly History of alcoholism and alcoholic liver cirrhosis. He says he quit drinking last April. -- no signs of withdrawal History of chronic obstructive pulmonary disease, asthma. wheezing resolved Continue Advair, Nebs PRN Tobacco abuse, nicotine patch. Depression. Continue his Remeron. Gastroesophageal reflux disease, continue his PPI. Deep venous thrombosis prophylaxis. Coumadin + Lovenox bridge until his INR is therapeutic. DISPOSITION: d/c to SNF ff up with ID clinic c/o Dr. Perez in 1 week after discharge ff up with [facility] in 1 week Total Time Total Time Spent Total Time Spent (In Minutes): 40 minutes Discharge Plan Discharge Items Patient Disposition: Transfer Longterm Fac Reason For Visit: B/L LOWER EXT WOUNDS Discharge Diagnosis: BILATERAL LOWER EXTREMITY CELLULITIS, RECURRENT Condition: Good Discharge Goals: Decrease discomfort, Diagnostic testing and Therapeutic intervention Activity: Resume your previous activity Driving/Machine Use Comment: NO DRIVING UNTIL CLEARED BY PRIMARY CARE PHYSICIAN Non-emergency contact: Primary Care Provider Call non-emergency contact if: you have any medication questions, your symptoms worsen, your pain is not controlled, your pain is worsening, your pain is unusual for you, your pain is concerning for you, you have a fever, your wound has increased redness, your wound has increased drainage and your wound pain has increased Follow-up/Referrals: Gareth Lin MD [Primary Care Provider] - Diet: Regular Addtl Provider Instructions: PLEASE FOLLOW UP WITH PRIMARY CARE PHYSICIAN IN 1 WEEK. FOLLOW UP WITH INFECTIOUS DISEASE CLINIC DR. VASILIY PEREZ AT [facility] IN 1 WEEK. PLEASE CALL THE CLINIC FOR AN APPOINTMENT. DAILY WOUND CARE: BILATERAL LEGS: WASH AND DRY. APPLY EUCERIN CREAM TO LEGS EXCEPT FOR WOUNDS. APPLY AQUACEL AG TO WOUND BEDS (CUT LARGER THAN WOUND) COVER WITH GAUZE AND SECURE WITH KERLIX). CHANGE QOD AND PRN. DISCONTINUE AQUACEL AG ON 12/18/18, USE KALTOSTAT INSTEAD. PATIENT CURRENTLY ON COUMADIN WITH LOVENOX BRIDGE. CHECK INR DAILY, ADJUST COUMADIN AND LOVENOX ACCORDINGLY. PLEASE REFER TO ACCOMPANYING HOSPITAL DISCHARGE SUMMARY FOR FURTHER DETAILS. Prescriptions: New enoxaparin [Lovenox] 120 mg/0.8 mL Syringe 111 mg subcut Q12H 7 Days Qty: 10.36 RF: 0 oxycodone-acetaminophen [Percocet] 5-325 mg Tablet 1 tab PO Q6H PRN (Reason: pain) 7 Days Qty: 10 RF: 0 Eucerin Cream 1 applic EXT DAILY 30 Days Qty: 1 RF: 0 Continued multivitamin Tablet 1 tab PO QAM RF: 0 nicotine 14 mg/24 hr Patch 24 Hour 1 patch TRANSDERMAL QAM PRN (Reason: Withdrawal Symptoms) RF: 0 docusate sodium [Colace] 100 mg Capsule 100 mg PO BID RF: 0 omeprazole 20 mg Capsule,Delayed Release(Dr/Ec) 20 mg PO BID RF: 0 folic acid 1 mg Tablet 1 mg PO QAM RF: 0 albuterol sulfate [Ventolin HFA] 90 mcg/actuation Hfa Aerosol Inhaler 1 puff INHALATION Q4H PRN (Reason: Shortness Of Breath) RF: 0 mirtazapine 15 mg Tablet 15 mg PO HS Qty: 30 RF: 0 gabapentin 300 mg Capsule 300 mg PO TID RF: 0 hydroxyzine HCl 25 mg tablet 50 mg PO HS PRN (Reason: Sleep) RF: 0 metformin 500 mg Tablet 500 mg PO BIDM RF: 0 warfarin 5 mg Tablet 15 mg PO 3XWK RF: 0 furosemide [Lasix] 20 mg Tablet 40 mg PO QAM RF: 0 spironolactone [Aldactone] 50 mg Tablet 100 mg PO QAM RF: 0 warfarin 5 mg Tablet 10 mg PO 4XWK RF: 0 fluticasone propion-salmeterol [Advair Diskus] 500-50 mcg/dose Blister With Device 1 inh INHALATION BID RF: 0 Discontinued hydrocodone-acetaminophen [[place]] 5-325 mg tablet 1 tab PO Q6H PRN (Reason: pain) Qty: 15 RF: 0 oxycodone-acetaminophen 5-325 mg tablet 1 tab PO DAILY RF: 0 cefdinir 300 mg capsule 300 mg PO BID RF: 0 Stand-Alone Forms: [facility] Discharge Orders: Discharge Order (Routine); Ordered 12/09/18 Ordered By: Juan Francisco Verduzco Skilled Items Patient informed of condition?: Yes DNR: No Discharge Level of Care: Skilled Communicable Disease: No Discharge Prognosis: Improving Admission Data Admit Date/Time: 12/04/18 20:08 Attending Provider: Juan Francisco Verduzco Admit Provider: Darrion Schaefer Primary Care Provider: Gareth Lin Other Providers: Darrion Schaefer ; Kendra Acevedo ; Juan Francisco Verduzco ; Dallas Wilkins Service: Medical
== END 2018-12-09 13:35 | DRG 603 ==
LOC: ED 17:10 → 3W 20:08 → SUATTDRO 20:08 → 3W 20:49

== ENCOUNTER 2019-01-15 08:21 | Inpatient (IN) ==
--- NOTE | 2019-01-15 09:26 | Emergency Department Note ---
ED Visit Note This Patient was discussed with the physician ortho assistant, Lucina Mistry PA-C. The pertinent historical and physical exam findings were confirmed. I agree with the studies ordered and with the interpretations of these studies. I agree with the disposition and care plan. .
[2019-01-15] MEDS ORDERED: ONDANSETRON INJ 2 MG/ML 2 ML VIAL IV STA (09:38)
[2019-01-15] MEDS ORDERED: MoRPHine SULFATE 10 MG/ML CARP/VIAL IV STA (09:38)
--- NOTE | 2019-01-15 09:48 | Emergency Department Note ---
History of Present Illness General Chief complaint: Infection Stated complaint: INFECTION IN BOTH LEG, OPEN WOUNDS Time Seen by Provider: 01/15/19 08:29 History of Present Illness Maximum Pain Intensity: 8 This 43-year-old male who is well-known to the emergency room presents today with recurrent open wounds to his bilateral lower legs. The patient was recently discharged from the hospital on December 09 for the same thing. He was getting IV antibiotics, Telfaro 600 mg every 12 hours at the IV clinic. He received 28 days of treatment. He was then placed on doxycycline and a cephalosporin on an outpatient basis. The patient states when he was on the IV antibiotics the wounds on his legs were completely scabbed over and he was doing fine. On Monday when he was in the shower scabs fell off the wounds on both legs and now there is a foul smell coming from the wounds and some drainage. The patient also admits to bilateral lower leg pain. He denies any fever or chest pain. Home Medications Home Medications Medication Instructions Recorded Confirmed Type albuterol sulfate [Ventolin HFA] 1 puff INHALATION Q4H PRN 05/09/18 01/15/19 History docusate sodium [Colace] 100 mg PO BID 05/09/18 01/15/19 History folic acid 1 mg PO QAM 05/09/18 01/15/19 History multivitamin 1 tab PO QAM 05/09/18 01/15/19 History omeprazole 20 mg PO BID 05/09/18 01/15/19 History mirtazapine 15 mg PO HS #30 tab 05/15/18 01/15/19 Rx gabapentin 300 mg PO QID 08/16/18 01/15/19 History hydroxyzine HCl 50 mg PO HS PRN 08/16/18 01/15/19 History furosemide [Lasix] 40 mg PO QAM 08/20/18 01/15/19 History metformin 500 mg PO BIDM 08/20/18 01/15/19 History spironolactone [Aldactone] 100 mg PO QAM 08/20/18 01/15/19 History warfarin 15 mg PO TUTHSA 08/20/18 01/15/19 History fluticasone propion-salmeterol 1 inh INHALATION BID 09/05/18 01/15/19 History [Advair Diskus] warfarin 10 mg PO SUMOWEFR 09/05/18 01/15/19 History oxycodone-acetaminophen [Percocet] 1 tab PO Q6H PRN 12/18/18 01/15/19 History Allergies Allergy/AdvReac Type Severity Reaction Status Date / Time peas Allergy Severe Swelling Verified 12/18/18 11:26 of Lip/Tongue/Throat Bactrim Allergy Intermediate hives Verified 04/12/18 15:58 sulfamethoxazole Allergy Intermediate hives Verified 12/18/18 11:26 trimethoprim Allergy Intermediate hives Verified 12/18/18 11:26 tuna oil Allergy Unknown . 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, borderline hyperhomocystemia Anxiety (Chronic) MRSA (methicillin resistant Staphylococcus aureus) infection (Chronic) History of ETOH abuse (Chronic) Chronic narcotic use (Chronic) Type 2 diabetes mellitus (Chronic) COPD (chronic obstructive pulmonary disease) (Chronic) Depression (Chronic) Pulmonary nodule (Chronic) CT chest 04/12/18 - 4 mm RUL nodule, f/u 12 months Venous insufficiency (chronic) (peripheral) (Chronic) Anxiety COPD (chronic obstructive pulmonary disease) Cellulitis Chronic deep vein thrombosis (DVT) Chronic narcotic use Chronic ulcer of leg "b/l" Chronic venous stasis dermatitis of both lower extremities Depression GERD (gastroesophageal reflux disease) HTN (hypertension) History of ETOH abuse Hypercoagulable state On 04/12/18 14:03 Yanira Martinez wrote "Prothrombin Factor II Mutation, 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 Chaudhari History of drainage of abscess [address] 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, boderline hyperhomocystemia Social History Preferred Language: Macedonian Communication Ability: Effective Visual Impairment: No Limitations Hearing Ability: Normal Beliefs That Will Affect Care: None marital status: Single Current Living Situation: Alone Feels Safe at Home: Yes Smoking Status: Never smoker Tobacco Type: cigarettes Cigarettes Per Day: half a pack a day Second Hand Exposure: No Hx Alcohol Use: Yes Alcohol type: beer Alcohol Intake Frequency Comment: Pt reports quit drinking end of 07/2018 Hx Substance Use: No Review of Systems A total of 10 systems reviewed and were otherwise negative Physical Exam Vital Signs Vital Signs - 24 hr 01/15/19 08:24 Temperature 36.8 C Temperature Source Oral Sepsis Recent Fever Within 48 Hours No Sepsis Action Taken by Nursing No Action Required Pulse Rate 92 H Respiratory Rate 20 Respiratory Depth Normal Blood Pressure 156/90 H Blood Pressure Mean 112 Pulse Oximetry 100 Oxygen Delivery Method Room Air GENERAL: 43-year-old male appears in no acute distress. MENTAL Status: Alert and oriented x3. NECK: Supple, no lymphadenopathy noted. No carotid bruits noted. LUNGS: Patient has bilateral inspiratory and expiratory wheeze as well as scattered rhonchi. Fair air exchange bilaterally. CARDIAC: Regular rate and rhythm without murmur. Pulses is full and equal throughout. LOWER EXTREMITIES: Discoloration noted of both lower legs. Edema noted bilaterally along with erythema. There are multiple open wounds on the right leg which are more linear in nature than round. There is a irregular round open wound on the left leg. The drainage appears green in nature. There is a foul smell to the wounds. Medical Decision Making Differential Diagnosis Cellulitis, bilateral leg wound infections, MRSA Medical Records Attestation: I reviewed the patient's medical records. Home Medications Current Medication List: was personally reviewed by me Laboratory Data Attestation: I reviewed the patient's lab results. Blood Pressure Blood Pressure Findings: Elevated blood pressure MDM Narrative The patient was evaluated. I reviewed the patient's EMR his recent hospital stay. Revealed blood cultures were normal and wound infection were positive for MRSA and were only susceptible to the cephalosporins. The patient is normally followed by the wound clinic in [place] and by infectious disease here at [facility]. The patient states that he called [facility] infectious disease yesterday and was told to come in yesterday to the ER but he did not have a ride therefore he is here today. I contacted Dr. Perez via telephone about the patient and he stated that he will need to be admitted and observed closely for his wound infections. The [facility] hospitalist was consulted for admission. IV access was obtained. CBC differential and renal profile was ordered. The patient was given morphine 6 mg IV and Zofran 4 mg IV push. Impression & Plan Bilateral cellulitis of lower leg, Ulcer of lower extremity Discharge Plan Visit Data Chief Complaint: Infection Stated Complaint: INFECTION IN BOTH LEG, OPEN WOUNDS ED Provider: Jamaal Bansal ED Midlevel Provider: Maru Mistry Discharge Problem: Bilateral cellulitis of lower leg, Ulcer of lower extremity Patient Disposition: Being Evaluated by Hospitalist Condition: Good Forms Stand Alone Forms: My [facility] Prescriptions Prescriptions: No Action multivitamin Tablet 1 tab PO QAM RF: 0 docusate sodium [Colace] 100 mg Capsule 100 mg PO BID RF: 0 omeprazole 20 mg Capsule,Delayed Release(Dr/Ec) 20 mg PO BID RF: 0 folic acid 1 mg Tablet 1 mg PO QAM RF: 0 albuterol sulfate [Ventolin HFA] 90 mcg/actuation Hfa Aerosol Inhaler 1 puff INHALATION Q4H PRN (Reason: Shortness Of Breath) RF: 0 mirtazapine 15 mg Tablet 15 mg PO HS Qty: 30 RF: 0 gabapentin 300 mg Capsule 300 mg PO QID RF: 0 hydroxyzine HCl 25 mg tablet 50 mg PO HS PRN (Reason: Sleep) RF: 0 metformin 500 mg Tablet 500 mg PO BIDM RF: 0 warfarin 5 mg Tablet 15 mg PO TUTHSA RF: 0 furosemide [Lasix] 20 mg Tablet 40 mg PO QAM RF: 0 spironolactone [Aldactone] 50 mg Tablet 100 mg PO QAM RF: 0 warfarin 5 mg Tablet 10 mg PO SUMOWEFR RF: 0 fluticasone propion-salmeterol [Advair Diskus] 500-50 mcg/dose Blister With Device 1 inh INHALATION BID RF: 0 oxycodone-acetaminophen [Percocet] 5-325 mg Tablet 1 tab PO Q6H PRN (Reason: pain) RF: 0 Referrals Referrals: Gareth Lin MD [Primary Care Provider] - Discharge Problem: Ulcer of lower extremity Qualifiers: Laterality: unspecified laterality Non-pressure ulcer stage: unspecified non- pressure ulcer stage Qualified Code(s): L97.909 - Non-pressure chronic ulcer of unspecified part of unspecified lower leg with unspecified severity
--- NOTE | 2019-01-15 10:49 | History & Physical Report ---
Date of Service January 15, 2019 Assessment & Plan (1) Chronic ulcer of lower extremity: (2) Bilateral cellulitis of lower leg: This is a 43-year-old male who has a significant past medical of heterozygous MTHFR mutation, hemosiderosis, type 2 diabetes, COPD,chronic deep vein thrombosis of femoral vein, venous insufficiency, alcoholic liver cirrhosis with ascites, venous stasis ulcers of both the legs, depression, tobacco use disorder who presents with re-opening of b/l lower extremity wounds with foul smelling drainage x 2 days. Hx of recurrent wound infections. Recently completed a 28-day course of IV ceftaroline for E. coli infection with good response (completed 2 weeks ago) Patient has been following with wound care routinely, last seen 2 weeks ago Admit to med/surg Spoke to ID Dr. Perez who recommends reinitiating IV ceftaroline 600 mg every 12 hours Consult infectious disease as well as wound care nurse CBC, CMP, PT/INR currently pending Patient does not appear septic therefore will not order blood cultures Obtain new wound cultures -previously has grown E. coli, MRSA, Pseudomonas (3) Type 2 diabetes mellitus: Last A1c 12/05/2018 6.8 Hold outpatient metformin Lantus/NovoLog per protocol (4) COPD (chronic obstructive pulmonary disease): No acute exacerbation the patient does have expiratory wheezing Ordered DuoNeb x1 now DuoNeb every 6h, incentive spirometry Continue Advair (5) Chronic deep vein thrombosis (DVT): Continue warfarin (6) Hypercoagulable state: Secondary to heterozygous MTHFR mutation Continue warfarin (7) GERD (gastroesophageal reflux disease): Continue PPI (8) Tobacco abuse: Nicotine patch ordered Encourage smoking cessation (9) Chronic narcotic use: Continue oxycodone as needed (10) History of MRSA infection: Contact precautions placed (11) Cirrhosis: Liver cirrhosis secondary to history of alcohol abuse No recent alcohol use Continue Lasix and Aldactone for volume management of ascites Monitor electrolytes given above (12) DVT prophylaxis: obtain INR Patient takes warfarin 10 mg Monday, Monday, Monday, Monday and 50 mg Monday, , Monday Continue warfarin based on INR Disposition: To be determined likely need long-term IV antibiotics, case management consult Follow-up: PCP upon discharge Patient was seen and examined in collaboration with Dr. Wilkins, please see addendum History of Present Illness Chief Complaint: B/L lower extremity foul smelling wounds x 2 days. Primary Care Provider: Gareth Lin MD This is a 43-year-old male who has a significant past medical history significant for heterozygous MTHFR mutation, hemosiderosis, type 2 diabetes, COPD,chronic deep vein thrombosis of femoral vein, venous insufficiency, alcoholic liver cirrhosis with ascites, venous stasis ulcers of both the legs, thrombocytopenia, depression, tobacco use disorder who presents with re-opening of b/l lower extremity wounds with foul smelling drainage x 2 days. The patient has recurrent infection of the lower extremities from venous stasis ulcers. Unfortunately has had multiple recurrent hospitalizations in the past year but admits to difficulty with ulceration for the past 2 years. "I am sick of this." Patient's last hospitalization was 12/04 to 12/09 secondary to recurrent lower extremity wound infection/cellulitis. He had a midline in place and was discharged with 28-day course of IV antibiotics ceftaroline 600 mg every 12 hours. He completed antibiotics 2 weeks ago and had midline removed. Symptoms improved significantly and he even completed his wound care. Up until 2 days ago his bilateral lower extremities had no open ulcerations and had been healing well. On Monday night he noticed after shower his scab fell off on the right and left leg. He ended up getting persistent lower extremity pain as well as foul-smelling purulent drainage from wounds. Given prior history and recurrent hospitalizations he called wound clinic nurse in which Dr. Perez recommended patient be sent to ED for admission. Patient had been taking doxycycline 100 mg daily and Ceftin at at bedtime in hopes for chronic suppression therapy. He has overall felt feverish, nauseated, decreased appetite and bilateral lower extremity pain. He has been requiring to take his as needed oxycodone more frequently. He also complains of being more wheezy this morning but has not taking albuterol and is requesting nebulizer treatment. He denies chills, sweats, lightheadedness, dizziness, chest pain, shortness breath, cough, hemoptysis, emesis, abdominal pain, change in bowel or urinary habits. He has noticed slight increase in swelling of bilateral lower extremities but states he has been wearing his compression stockings faithfully. He overall feels on the dry side secondary to decreased appetite and decreased p.o. intake. Allergies Allergy/AdvReac Type Severity Reaction Status Date / Time peas Allergy Severe Swelling Verified 12/18/18 11:26 of Lip/Tongue/Throat Bactrim Allergy Intermediate hives Verified 04/12/18 15:58 sulfamethoxazole Allergy Intermediate hives Verified 12/18/18 11:26 trimethoprim Allergy Intermediate hives Verified 12/18/18 11:26 tuna oil Allergy Unknown . Verified 12/18/18 11:26 Home Medications Home Medications Medication Instructions Recorded Confirmed Type albuterol sulfate [Ventolin HFA] 1 puff INHALATION Q4H PRN 05/09/18 01/15/19 History docusate sodium [Colace] 100 mg PO BID 05/09/18 01/15/19 History folic acid 1 mg PO QAM 05/09/18 01/15/19 History multivitamin 1 tab PO QAM 05/09/18 01/15/19 History omeprazole 20 mg PO BID 05/09/18 01/15/19 History mirtazapine 15 mg PO HS #30 tab 05/15/18 01/15/19 Rx gabapentin 300 mg PO QID 08/16/18 01/15/19 History hydroxyzine HCl 50 mg PO HS PRN 08/16/18 01/15/19 History furosemide [Lasix] 40 mg PO QAM 08/20/18 01/15/19 History metformin 500 mg PO BIDM 08/20/18 01/15/19 History spironolactone [Aldactone] 100 mg PO QAM 08/20/18 01/15/19 History warfarin 15 mg PO TUTHSA 08/20/18 01/15/19 History fluticasone propion-salmeterol 1 inh INHALATION BID 09/05/18 01/15/19 History [Advair Diskus] warfarin 10 mg PO SUMOWEFR 09/05/18 01/15/19 History oxycodone-acetaminophen [Percocet] 1 tab PO Q6H PRN 12/18/18 01/15/19 History Past Med/Surg History Medical History GERD (gastroesophageal reflux disease) (Chronic) Tobacco abuse (Chronic) Chronic ulcer of lower extremity (Chronic) bilateral Chronic venous stasis dermatitis of both lower extremities (Chronic) Hypercoagulable state (Chronic) Prothrombin Factor II Mutation, 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, borderline hyperhomocystemia Anxiety (Chronic) MRSA (methicillin resistant Staphylococcus aureus) infection (Chronic) History of ETOH abuse (Chronic) Chronic narcotic use (Chronic) Type 2 diabetes mellitus (Chronic) COPD (chronic obstructive pulmonary disease) (Chronic) Depression (Chronic) Pulmonary nodule (Chronic) CT chest 04/12/18 - 4 mm RUL nodule, f/u 12 months Venous insufficiency (chronic) (peripheral) (Chronic) Anxiety COPD (chronic obstructive pulmonary disease) Cellulitis Chronic deep vein thrombosis (DVT) Chronic narcotic use Chronic ulcer of leg "b/l" Chronic venous stasis dermatitis of both lower extremities Depression GERD (gastroesophageal reflux disease) HTN (hypertension) History of ETOH abuse Hypercoagulable state On 04/12/18 14:03 Yanira Martinez wrote "Prothrombin Factor II Mutation, 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 Chaudhari History of drainage of abscess [address] 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, boderline hyperhomocystemia Social History Preferred Language: Maltese Communication Ability: Effective Visual Impairment: No Limitations Hearing Ability: Normal Beliefs That Will Affect Care: None marital status: Single Current Living Situation: Alone Other Information That Helps Us Care for You: No Feels Safe at Home: Yes Safety Concerns: Feels Safe At This Time Smoking Status: Current every day smoker Tobacco Type: cigarettes Cigarettes Per Day: 1/2 ppd Second Hand Exposure: No Hx Alcohol Use: Yes Alcohol type: beer Alcohol Intake Frequency Comment: Pt reports quit drinking end of 07/2018 Hx Substance Use: No Review of Systems Review of Systems: As noted per HPI, 10 systems reviewed and negative unless noted above. Physical Exam Physical Exam: Gen: WD/WN, Morbidly obese M, NAD, sitting up in bed, pleasant, conversing easily, Head: Normocephalic, Atraumatic Eyes: Sclera normal, no conjunctival injection, PERRLA, EOMI ENT: Gross hearing intact, normal pharynx, mucous membranes moist Neck: supple, no adenopathy, No JVD, no bruit, no thyromegaly, Resp: Clear to auscultation b/l with diffuse expiratory wheeze and prolonged exp phase, no rales, rhonchi. Normal insp/exp effort, no accessory muscle use CV: Regular rate, regular rhythm, no murmur, rub, gallop, or ectopy Abd: +BS x 4, distended secondary to obesity, firm, nontender, Musculoskeletal: moves extremities active rom x 4, strength intact, good case finishing machine adjuster strength Extremities: Severe b/l LE nodular lymphedema with venous stasis changes, multiple open venous stasis ulcerations right pretibial and medial calf along with L mid pre-tibal region with foul smelling drainage. Skin: warm, moist, mild turgor, cap refill < 2sec Neuro: Alert and oriented x 3, speech normal, good mood/affect, cran nerve 2-12 intact grossly :deferred Results & Data Vital Signs (Past 12 Hours) Vital Signs Temp Pulse Resp BP Pulse Ox 01/15/19 08:24 36.8 C 92 H 20 156/90 H 100 Medications Administered Discontinued Medications Morphine Sulfate (Morphine Sulfate) 6 mg IV NOW STA Stop: 01/15/19 09:39 Last Admin: 01/15/19 10:48 Dose: 6 mg Documented by: [id number] Ondansetron HCl (Zofran) 4 mg IV NOW STA Stop: 01/15/19 09:39 Last Admin: 01/15/19 10:47 Dose: 4 mg Documented by: [id number] Code Status & VTE Plan Code Status Full Code VTE Prophylaxis Plan VTE Prophylaxis will be ordered: Yes Supervising Physician Co-Signing Physician Notes Attending addendum The patient was seen and examined in medical floor He is admitted with ongoing cellulitis of the legs with recurrent infection Complaint history of leg pain, open wound with some drainage bilateral On examination Hemodynamically stable Chest-clear Heart-S1-S2, regular Abdomen-benign Extremities-bilateral chronic skin changes from below knees on either side with edema and associated with chronic infection, scattered open wounds with foul smelling drainage Admission labs noted ID has been consulted and antibiotic has been given as per the recommendation Agree with assessment and plan as outlined above by GREGORIO Brody Dr (1) Chronic ulcer of lower extremity Laterality: unspecified laterality Non-pressure ulcer stage: unspecified non- pressure ulcer stage Qualified Code(s): L97.909 - Non-pressure chronic ulcer of unspecified part of unspecified lower leg with unspecified severity (2) Type 2 diabetes mellitus Diabetes mellitus terminal block assembler insulin use: without terminal block assembler use (3) Chronic deep vein thrombosis (DVT) Affected thrombotic vein of extremity: unspecified vein of extremity DVT location: lower extremity Laterality: right Qualified Code(s): I82.501 - Chronic embolism and thrombosis of unspecified deep veins of right lower extremity (4) COPD (chronic obstructive pulmonary disease) COPD type: unspecified COPD Qualified Code(s): J44.9 - Chronic obstructive pulmonary disease, unspecified (5) GERD (gastroesophageal reflux disease) Esophagitis presence: esophagitis presence not specified Qualified Code(s): K21.9 - Gastro-esophageal reflux disease without esophagitis
--- NOTE | 2019-01-15 11:05 | Infectious Disease Consult ---
Date of Consultation January 15, 2019 Assessment & Plan (1) Bilateral cellulitis of lower leg: Recurrent lower extremity cellulitis, previously isolated MRSA, have recommended IV ceftaroline 600 mg every 12 hours as has responded well in the past. Will follow. History of Present Illness Reason for Consultation: Recurrent cellulitis History of Present Illness 43-year-old male known to me from previous infectious disease follow-up, with long history of severe venous stasis disease with recurrent lower extremity cellulitis. Had multiple admissions this year for recurrent cellulitis. Recently received a prolonged course of IV ceftaroline with excellent healing of his legs. Wounds all closed, and patient was transitioned to oral antibiotics with doxycycline and Omnicef. However over the past several days he has had worsening with recurrent leg ulcerations and drainage, increasing erythema and pain. No fever or chills. He returned to the emergency room and as discussed, has been started on IV ceftaroline. Cultures previously positive for MRSA and E. coli, repeat cultures are pending. Allergies Allergy/AdvReac Type Severity Reaction Status Date / Time peas Allergy Severe Swelling Verified 12/18/18 11:26 of Lip/Tongue/Throat Bactrim Allergy Intermediate hives Verified 04/12/18 15:58 sulfamethoxazole Allergy Intermediate hives Verified 12/18/18 11:26 trimethoprim Allergy Intermediate hives Verified 12/18/18 11:26 tuna oil Allergy Unknown . Verified 12/18/18 11:26 Home Medications Home Medications Medication Instructions Recorded Confirmed Type albuterol sulfate [Ventolin HFA] 1 puff INHALATION Q4H PRN 05/09/18 01/15/19 History docusate sodium [Colace] 100 mg PO BID 05/09/18 01/15/19 History folic acid 1 mg PO QAM 05/09/18 01/15/19 History multivitamin 1 tab PO QAM 05/09/18 01/15/19 History omeprazole 20 mg PO BID 05/09/18 01/15/19 History mirtazapine 15 mg PO HS #30 tab 05/15/18 01/15/19 Rx gabapentin 300 mg PO QID 08/16/18 01/15/19 History hydroxyzine HCl 50 mg PO HS PRN 08/16/18 01/15/19 History furosemide [Lasix] 40 mg PO QAM 08/20/18 01/15/19 History metformin 500 mg PO BIDM 08/20/18 01/15/19 History spironolactone [Aldactone] 100 mg PO QAM 08/20/18 01/15/19 History warfarin 15 mg PO TUTHSA 08/20/18 01/15/19 History fluticasone propion-salmeterol 1 inh INHALATION BID 09/05/18 01/15/19 History [Advair Diskus] warfarin 10 mg PO SUMOWEFR 09/05/18 01/15/19 History oxycodone-acetaminophen [Percocet] 1 tab PO Q6H PRN 12/18/18 01/15/19 History Patient History Medical History GERD (gastroesophageal reflux disease) (Chronic) Tobacco abuse (Chronic) Chronic ulcer of lower extremity (Chronic) bilateral Chronic venous stasis dermatitis of both lower extremities (Chronic) Hypercoagulable state (Chronic) Prothrombin Factor II Mutation, 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, borderline hyperhomocystemia Anxiety (Chronic) MRSA (methicillin resistant Staphylococcus aureus) infection (Chronic) History of ETOH abuse (Chronic) Chronic narcotic use (Chronic) Type 2 diabetes mellitus (Chronic) COPD (chronic obstructive pulmonary disease) (Chronic) Depression (Chronic) Pulmonary nodule (Chronic) CT chest 04/12/18 - 4 mm RUL nodule, f/u 12 months Venous insufficiency (chronic) (peripheral) (Chronic) Anxiety COPD (chronic obstructive pulmonary disease) Cellulitis Chronic deep vein thrombosis (DVT) Chronic narcotic use Chronic ulcer of leg "b/l" Chronic venous stasis dermatitis of both lower extremities Depression GERD (gastroesophageal reflux disease) HTN (hypertension) History of ETOH abuse Hypercoagulable state On 04/12/18 14:03 Yanira Martinez wrote "Prothrombin Factor II Mutation, 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 Chaudhari History of drainage of abscess [address] 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, boderline hyperhomocystemia Social History Preferred Language: Spanish Communication Ability: Effective Visual Impairment: No Limitations Hearing Ability: Normal Beliefs That Will Affect Care: None marital status: Single Current Living Situation: Alone Other Information That Helps Us Care for You: No Feels Safe at Home: Yes Safety Concerns: Feels Safe At This Time Smoking Status: Current every day smoker Tobacco Type: cigarettes Cigarettes Per Day: 1/2 ppd Second Hand Exposure: No Hx Alcohol Use: Yes Alcohol type: beer Alcohol Intake Frequency Comment: Pt reports quit drinking end of 07/2018 Hx Substance Use: No Review of Systems Review of Systems: All systems reviewed & are unremarkable except as noted in HPI & below Physical Exam Constitutional: WD/WN, vitals as above comfortable; no acute distress Eyes: PERRL, conjunctivae normal, anicteric sclerae ENMT: external ear and nose normal, oropharynx normal Neck: trachea midline, no thyromegaly neck nontender Respiratory: normal respiratory effort, lungs clear to auscultation normal percussion; does not use accessory muscles Cardiovascular: Rate/Rhythm: regular rate and regular rhythm Heart Sounds: normal S1 and normal S2; no gallop, no murmur and no cardiac rub Vessels: normal peripheral pulses; no JVD Gastrointestinal (Abdomen): normal bowel sounds, soft, nontender, no hepatospl enomegaly Musculoskeletal: no cyanosis or clubbing, extremities motor strength 5/5 Spine: thoracic spine normal to inspection and lumbar spine normal to inspection; no cervical spinal tenderness Skin: normal turgor, + wound (Superficial ulcerations both legs) and + erythema (Both legs); no rashes Neurologic: patellar DTR's 2+ bilat, sensation intact no focal motor deficits Psychiatric: A+Ox3, euthymic affect Orientation: cooperative Lymphatic: no cervical or axillary lymphadenopathy no inguinal lymphadenopathy Results & Data Vital Signs (Past 12 Hours) Vital Signs Temp Pulse Pulse Resp BP BP Pulse Ox 01/15/19 10:51 87 16 147/100 H 97 01/15/19 08:24 36.8 C 92 H 20 156/90 H 100 Laboratory Results Laboratory Results - last 48 hr 01/15/19 01/15/19 01/15/19 10:43 10:43 10:43 WBC 3.78 L RBC 4.23 L Hgb 12.2 L Hct 36.7 L MCV 86.8 MCH 28.8 MCHC 33.2 RDW Std Deviation 50.3 H RDW Coeff of Kip 15.9 H Plt Count 140 MPV 10.3 Immature Gran % (Auto) 0.3 Neut % (Auto) 68.5 Lymph % (Auto) 21.2 [place] % (Auto) 7.1 Eos % (Auto) 2.4 Baso % (Auto) 0.5 Immature Gran # (Auto) 0.01 Neut # (Auto) 2.59 Lymph # (Auto) 0.80 L [place] # (Auto) 0.27 Eos # (Auto) 0.09 Baso # (Auto) 0.02 PT 19.1 H INR 2.0 H APTT 28.8 PTT Ratio 1.1 Sodium 134 L Potassium 3.9 Chloride 102 Carbon Dioxide 29 Anion Gap 3.0 BUN 10 Creatinine 0.98 Est Cr Clr Drug Dosing 120.3 Est GFR ( Amer) 108.2 Est GFR (Non-Af Amer) 93.4 BUN/Creatinine Ratio 10.4 Glucose 218 H POC Glucose Calcium 8.8 Phosphorus 2.8 Total Bilirubin 0.4 AST 25 ALT 46 Alkaline Phosphatase 89 Total Protein 8.0 Albumin 3.2 L Globulin 4.8 H Albumin/Globulin Ratio 0.7 L 01/15/19 01/15/19 01/15/19 11:54 16:45 20:38 WBC RBC Hgb Hct MCV MCH MCHC RDW Std Deviation RDW Coeff of Kip Plt Count MPV Immature Gran % (Auto) Neut % (Auto) Lymph % (Auto) [place] % (Auto) Eos % (Auto) Baso % (Auto) Immature Gran # (Auto) Neut # (Auto) Lymph # (Auto) [place] # (Auto) Eos # (Auto) Baso # (Auto) PT INR APTT PTT Ratio Sodium Potassium Chloride Carbon Dioxide Anion Gap BUN Creatinine Est Cr Clr Drug Dosing Est GFR ( Amer) Est GFR (Non-Af Amer) BUN/Creatinine Ratio Glucose POC Glucose 213 H 218 H 297 H Calcium Phosphorus Total Bilirubin AST ALT Alkaline Phosphatase Total Protein Albumin Globulin Albumin/Globulin Ratio
[2019-01-15 11:11] LABS: Basophils # (auto) 0.02 K/uL (0-0.2); Basophils % (auto) 0.5 %; Eosinophils # (auto) 0.09 K/uL (0-0.5); Eosinophils % (auto) 2.4 %; Hematocrit (blood only) 36.7 % (42-52); Hemoglobin 12.2 g/dL (14.0-18.0); Immature Granulocytes # (auto) 0.01 K/uL (0.00-0.02); Immature Granulocytes % (auto) 0.3 %; Lymphocytes % (auto) 21.2 %; Mean Corpuscular Hgb Conc 33.2 g/dL (32-36); Mean Corpuscular Volume 86.8 fL (80-100); Mean Platelet Volume 10.3 fL (7.4-10.4); Monocytes # (auto) 0.27 K/uL (0.11-0.59); Monocytes % (auto) 7.1 %; Neutrophils # (auto) 2.59 K/uL (1.4-6.5); Neutrophils % (auto) 68.5 %; Platelet Count 140 K/uL (130-400); RDW Coefficient of Variation 15.9 % (11.5-14.5); RDW Standard Deviation 50.3 fL (36.4-46.3); Red Blood Count 4.23 M/uL (4.7-6.1); White Blood Count 3.78 K/uL (4.8-10.8)
[2019-01-15] MEDS ORDERED: ALBUT/IPRATROP 3MG/0.5MG NEB 3 ML VIAL NEB STA (11:16)
[2019-01-15 11:29] LABS: Albumin Level 3.2 gm/dl (3.4-5.0); BUN Creatinine Ratio 10.4 (10-20); Calcium 8.8 mg/dl (8.5-10.1); Creatinine Clr Calc Pharmacy 120.3 ml/min; Est GFR (African American) 108.2; Est GFR (Non-African American) 93.4; Potassium 3.9 mmol/L (3.5-5.1)
[2019-01-15] MEDS ORDERED: POLYETHYLENE (MIRALAX) 17 GM PACK PO PRN (11:29)
[2019-01-15] MEDS ORDERED: GLUCAGON FOR INJ 1 MG VIAL SQ PRN (11:29)
[2019-01-15] MEDS ORDERED: CARBOHYDRATES FOR HYPOGLYCEMIA PO PRN (11:29)
[2019-01-15] MEDS ORDERED: ACETAMINOPHEN 325 MG TAB PO PRN (11:29)
[2019-01-15] MEDS ORDERED: MAGNESIUM HYDROXIDE SUSP 30 ML UDC PO PRN (11:29)
[2019-01-15] MEDS ORDERED: ALUMINUM/MAGNESIUM SUSP 30 ML UDC PO PRN (11:29)
[2019-01-15] MEDS ORDERED: DEXTROSE 50% 50 ML SYRINGE IV PRN (11:29)
[2019-01-15] MEDS ORDERED: GLUCOSE 40% GEL 15 GM TUBE PO PRN (11:29)
[2019-01-15] MEDS ORDERED: GLUCOSE 10 TABS/TUBE PO PRN (11:29)
[2019-01-15] MEDS ORDERED: ALBUTEROL HFA 8 GM INHALER INH PRN (11:29)
[2019-01-15] MEDS ORDERED: ONDANSETRON INJ 2 MG/ML 2 ML VIAL IV PRN (11:29)
[2019-01-15 11:32] LABS: Albumin Globulin Ratio 0.7 (0.9-2); Bilirubin,Total 0.4 mg/dl (0.2-1); Globulin 4.8 gm/dl (2.5-4.0); Phosphorus 2.8 mg/dl (2.5-4.9)
[2019-01-15 11:39] LABS: Partial Thromboplastin Ratio 1.1; Prothrombin Time 19.1 Seconds (9.0-12.0)
[2019-01-15] MEDS ORDERED: ALBUT/IPRATROP 3MG/0.5MG NEB 3 ML VIAL NEB PRN (11:39)
[2019-01-15 11:40] LABS: Partial Thromboplastin Time 28.8 Seconds (21.0-31.0)
[2019-01-15] MEDS: ALBUT/IPRATROP 3MG/0.5MG NEB 3 ML VIAL NEB SCH ×3 (11:42→19:03)
[2019-01-15] MEDS: CEFTAROLINE FOSAMIL ACETATE 600 MG in SODIUM CHLORIDE 0.9% 250 ML IV SCH (13:12)
[2019-01-15] MEDS: NICOTINE 21 MG/24 HR TDSY TD SCH (13:12)
[2019-01-15] MEDS: GABAPENTIN 300 MG CAP PO SCH ×3 (13:13→20:57)
[2019-01-15] MEDS: OXYCODONE/ACETAMINOPHEN 5mg/325mg TAB PO PRN ×3 (13:13→21:00)
[2019-01-15] MEDS ORDERED: WARFARIN SOD 5 MG TAB PO SCH (16:00)
[2019-01-15] MEDS: INSULIN ASPART 100 UNITS/ML 3 ML PEN SC SCH ×2 (17:58→20:57)
[2019-01-15] MEDS: INSULIN GLARGINE SOLOSTAR 100 UNITS/ML 3 ML PEN SC SCH (20:58)
[2019-01-15] MEDS: FLUTICASONE/SALMETEROL (ADVAIR) 500/50 INH 14 PUFF INH SCH (20:59)
[2019-01-15] MEDS: MIRTAZAPINE TAB 15 MG TAB PO SCH (20:59)
[2019-01-15] MEDS: PANTOprazole 40 MG TAB PO SCH (21:00)
[2019-01-15] MEDS: DOCUSATE SODIUM 100 MG CAP PO SCH (21:00)
[2019-01-16] MEDS: CEFTAROLINE FOSAMIL ACETATE 600 MG in SODIUM CHLORIDE 0.9% 250 ML IV SCH ×2 (00:09→11:21)
[2019-01-16] MEDS: ALBUT/IPRATROP 3MG/0.5MG NEB 3 ML VIAL NEB SCH ×4 (07:07→19:58)
[2019-01-16 07:48] LABS: Basophils # (auto) 0.03 K/uL (0-0.2); Basophils % (auto) 1.3 %; Eosinophils # (auto) 0.05 K/uL (0-0.5); Eosinophils % (auto) 2.1 %; Hematocrit (blood only) 37.8 % (42-52); Hemoglobin 12.5 g/dL (14.0-18.0); Immature Granulocytes # (auto) 0.01 K/uL (0.00-0.02); Immature Granulocytes % (auto) 0.4 %; Lymphocytes # (auto) 0.54 K/uL (1.2-3.4); Lymphocytes % (auto) 22.7 %; Mean Corpuscular Hgb Conc 33.1 g/dL (32-36); Mean Corpuscular Volume 87.9 fL (80-100); Mean Platelet Volume 10.2 fL (7.4-10.4); Monocytes % (auto) 8.4 %; Neutrophils # (auto) 1.55 K/uL (1.4-6.5); Neutrophils % (auto) 65.1 %; Platelet Count 130 K/uL (130-400); RDW Coefficient of Variation 16.2 % (11.5-14.5); RDW Standard Deviation 51.3 fL (36.4-46.3); White Blood Count 2.38 K/uL (4.8-10.8)
[2019-01-16 07:56] LABS: INR 2.5 (0.9-1.1); Prothrombin Time 24.1 Seconds (9.0-12.0)
[2019-01-16 08:24] LABS: BUN Creatinine Ratio 9.9 (10-20); Calcium 9.2 mg/dl (8.5-10.1); Creatinine Clr Calc Pharmacy 132.5 ml/min; Est GFR (African American) 120.5
[2019-01-16] MEDS: OXYCODONE/ACETAMINOPHEN 5mg/325mg TAB PO PRN ×4 (08:57→21:46)
[2019-01-16] MEDS: FLUTICASONE/SALMETEROL (ADVAIR) 500/50 INH 14 PUFF INH SCH ×2 (08:58→21:18)
[2019-01-16] MEDS: MULTIVITAMIN TAB PO SCH (08:59)
[2019-01-16] MEDS: DOCUSATE SODIUM 100 MG CAP PO SCH ×2 (08:59→21:20)
[2019-01-16] MEDS: SPIRONOLACTONE 100 MG TAB PO SCH (08:59)
[2019-01-16] MEDS: PANTOprazole 40 MG TAB PO SCH ×2 (08:59→21:19)
[2019-01-16] MEDS: SACCHAROMYCES BOULARDII 250 MG CAP PO SCH (08:59)
[2019-01-16] MEDS: FOLIC ACID 1 MG TAB PO SCH (09:00)
[2019-01-16] MEDS: FUROSEMIDE 40 MG TAB PO SCH (09:00)
[2019-01-16] MEDS: GABAPENTIN 300 MG CAP PO SCH ×4 (09:00→21:18)
[2019-01-16] MEDS: NICOTINE 21 MG/24 HR TDSY TD SCH (09:01)
[2019-01-16] MEDS: INSULIN ASPART 100 UNITS/ML 3 ML PEN SC SCH ×4 (09:04→21:25)
[2019-01-16] MEDS: INSULIN GLARGINE SOLOSTAR 100 UNITS/ML 3 ML PEN SC SCH ×2 (09:06→21:20)
[2019-01-16] MEDS: WARFARIN SOD 10 MG TAB PO SCH (16:15)
--- NOTE | 2019-01-16 19:50 | Hospitalist Progress Note ---
Date of Service January 16, 2019 Assessment & Plan (1) Chronic ulcer of lower extremity: (2) Bilateral cellulitis of lower leg: Multiple admission for recurrent wound infections. Recently completed a 28-day course of IV ceftaroline for E. coli infection Starting on IV ceftaroline ID on board recommended to continue IV ceftaroline 600 mg every 12 hours Wound care on board Continue daily wound care Preliminary wound cx grew gram negative bacilli Continue pain control with percocet (3) Type 2 diabetes mellitus: Last A1c 12/05/2018 6.8 Hold outpatient metformin Lantus/NovoLog per protocol (4) COPD (chronic obstructive pulmonary disease): Continue DuoNeb and incentive spirometry Continue Advair Stable (5) Chronic deep vein thrombosis (DVT): (6) Hypercoagulable state: Secondary to heterozygous MTHFR mutation Continue warfarin with INR 2.5 today Monitor PT/INR (7) GERD (gastroesophageal reflux disease): Continue PPI (8) Tobacco abuse: Nicotine patch ordered Counseling on smoking cessation (9) Chronic narcotic use: Continue oxycodone as needed (10) Cirrhosis: Liver cirrhosis secondary to history of alcohol abuse No recent alcohol use Continue Lasix and Aldactone for volume management of ascites Stable (11) DVT prophylaxis: On Coumadin, INR 2.5 Disposition Discharge once medically stable Subjective Pt was seen and examined Lying in bed with no distress Pt said that he does have pain in his lower extremities He said that the pain med does not last long He said that the IV morphine was helping between the oral percocet that he has been asking every hour Denies any chest pain, palpitation, dizziness and SOB Physical Exam Physical Exam: General- No acute distress Head- atraumatic Eyes- PERRL, EOMI, ENT- oropharynx clear Neck- supple, no JVD Lungs- clear to auscultation Heart- regular rhythm; no murmur Abdomen- normal bowel sounds, soft, nontender Extremities- Severe b/l LE nodular lymphedema with venous stasis changes, multiple open venous stasis ulcerations right pretibial and medial calf with foul smelling drainage cover with aquacel Neuro- alert, oriented x 3; PERRL, EOMI; no facial palsy; no dysarthria Skin- warm & dry Results & Data Vital Signs (Past 12 Hours) Vital Signs Temp Pulse Resp BP Pulse Ox 01/16/19 16:11 36.5 C 83 20 121/76 97 01/16/19 15:12 81 18 97 (1) Chronic ulcer of lower extremity Laterality: unspecified laterality Non-pressure ulcer stage: unspecified non- pressure ulcer stage Qualified Code(s): L97.909 - Non-pressure chronic ulcer of unspecified part of unspecified lower leg with unspecified severity (2) Type 2 diabetes mellitus 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 petroleum 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 (3) Chronic deep vein thrombosis (DVT) Affected thrombotic vein of extremity: unspecified vein of extremity DVT location: lower extremity Laterality: right Qualified Code(s): I82.501 - Chronic embolism and thrombosis of unspecified deep veins of right lower extremity (4) COPD (chronic obstructive pulmonary disease) COPD type: unspecified COPD Qualified Code(s): J44.9 - Chronic obstructive pulmonary disease, unspecified (5) GERD (gastroesophageal reflux disease) Esophagitis presence: esophagitis presence not specified Qualified Code(s): K21.9 - Gastro-esophageal reflux disease without esophagitis
[2019-01-16] MEDS: MIRTAZAPINE TAB 15 MG TAB PO SCH (21:19)
[2019-01-17] MEDS: CEFTAROLINE FOSAMIL ACETATE 600 MG in SODIUM CHLORIDE 0.9% 250 ML IV SCH ×3 (00:02→22:32)
--- NOTE | 2019-01-17 03:08 | Infectious Disease Progress Nt ---
Date of Service January 16, 2019 Assessment & Plan (1) Bilateral cellulitis of lower leg: Recurrent lower extremity cellulitis, previously isolated MRSA, have recommended IV ceftaroline 600 mg every 12 hours as has responded well in the past. Will follow. Subjective Lying in bed with no distress Continue complaint of LE tenderness Denies any chest pain, palpitation and SOB . Remains afebrile. Cultures from leg wound growing gram-negative bacilli. Review of Systems Review of Systems: All systems reviewed & are unremarkable except as noted in HPI & below Physical Exam Constitutional: WD/WN, vitals as above comfortable; no acute distress Eyes: PERRL, conjunctivae normal, anicteric sclerae ENMT: external ear and nose normal, oropharynx normal Neck: trachea midline, no thyromegaly neck nontender Respiratory: normal respiratory effort, lungs clear to auscultation normal percussion; does not use accessory muscles Cardiovascular: Rate/Rhythm: regular rate and regular rhythm Heart Sounds: normal S1 and normal S2; no gallop, no murmur and no cardiac rub Vessels: normal peripheral pulses; no JVD Gastrointestinal (Abdomen): normal bowel sounds, soft, nontender, no hepa tosplenomegaly Musculoskeletal: no cyanosis or clubbing, extremities motor strength 5/5 Spine: thoracic spine normal to inspection and lumbar spine normal to inspection; no cervical spinal tenderness Skin: normal turgor, + wound (Superficial ulcerations both legs) and + erythema (Both legs); no rashes Neurologic: patellar DTR's 2+ bilat, sensation intact no focal motor deficits Psychiatric: A+Ox3, euthymic affect Orientation: cooperative Lymphatic: no cervical or axillary lymphadenopathy no inguinal lymphadenopathy Results & Data Vital Signs (Past 12 Hours) Vital Signs Temp Pulse Resp BP Pulse Ox 01/16/19 23:14 36.9 C 78 18 117/74 95 01/16/19 19:58 84 16 97 01/16/19 16:11 36.5 C 83 20 121/76 97 01/16/19 15:12 81 18 97 Laboratory Results Short CBC 01/16/19 Range/Units 07:20 WBC 2.38 L (4.8-10.8) K/uL Hgb 12.5 L (14.0-18.0) g/dL Hct 37.8 L (42-52) % Plt Count 130 (130-400) K/uL BMP 01/16/19 07:20 Sodium 138 Potassium 4.0 Chloride 105 Carbon Dioxide 26 BUN 9 Creatinine 0.89 Glucose 195 H Calcium 9.2 Diagnostic Findings Microbiology 01/15/19 Unknown Leg Gram Stain - Final 01/15/19 Unknown Leg Wound Culture - Preliminary Gram negative bacilli
[2019-01-17 06:35] LABS: Hematocrit (blood only) 37.7 % (42-52); Hemoglobin 12.4 g/dL (14.0-18.0); Mean Corpuscular Hgb Conc 32.9 g/dL (32-36); Mean Corpuscular Volume 87.9 fL (80-100); Mean Platelet Volume 9.6 fL (7.4-10.4); Platelet Count 143 K/uL (130-400); RDW Coefficient of Variation 16.4 % (11.5-14.5); RDW Standard Deviation 51.9 fL (36.4-46.3); Red Blood Count 4.29 M/uL (4.7-6.1); White Blood Count 2.27 K/uL (4.8-10.8)
[2019-01-17 06:49] LABS: INR 2.9 (0.9-1.1)
[2019-01-17 07:03] LABS: BUN Creatinine Ratio 9.8 (10-20); Calcium 8.7 mg/dl (8.5-10.1); Potassium 4.1 mmol/L (3.5-5.1)
[2019-01-17] MEDS: ALBUT/IPRATROP 3MG/0.5MG NEB 3 ML VIAL NEB SCH ×4 (07:08→19:45)
[2019-01-17] MEDS: FLUTICASONE/SALMETEROL (ADVAIR) 500/50 INH 14 PUFF INH SCH ×2 (08:03→21:53)
[2019-01-17] MEDS: MULTIVITAMIN TAB PO SCH (08:04)
[2019-01-17] MEDS: OXYCODONE/ACETAMINOPHEN 5mg/325mg TAB PO PRN ×4 (08:04→21:57)
[2019-01-17] MEDS: GABAPENTIN 300 MG CAP PO SCH ×4 (08:04→21:55)
[2019-01-17] MEDS: FOLIC ACID 1 MG TAB PO SCH (08:05)
[2019-01-17] MEDS: PANTOprazole 40 MG TAB PO SCH ×2 (08:05→21:55)
[2019-01-17] MEDS: FUROSEMIDE 40 MG TAB PO SCH (08:05)
[2019-01-17] MEDS: SACCHAROMYCES BOULARDII 250 MG CAP PO SCH (08:05)
[2019-01-17] MEDS: NICOTINE 21 MG/24 HR TDSY TD SCH (08:05)
[2019-01-17] MEDS: SPIRONOLACTONE 100 MG TAB PO SCH (08:05)
[2019-01-17] MEDS: INSULIN GLARGINE SOLOSTAR 100 UNITS/ML 3 ML PEN SC SCH ×2 (08:07→21:58)
[2019-01-17] MEDS: DOCUSATE SODIUM 100 MG CAP PO SCH ×2 (08:12→21:54)
[2019-01-17] MEDS: INSULIN ASPART 100 UNITS/ML 3 ML PEN SC SCH ×4 (08:53→21:59)
[2019-01-17] MEDS ORDERED: WARFARIN SOD 10 MG TAB PO SCH (16:00)
--- NOTE | 2019-01-17 18:42 | Hospitalist Progress Note ---
Date of Service January 17, 2019 Assessment & Plan (1) Chronic ulcer of lower extremity: (2) Bilateral cellulitis of lower leg: Multiple admission for recurrent wound infections. Recently completed a 28-day course of IV ceftaroline for E. coli infection ID on board recommended to continue IV ceftaroline 600 mg every 12 hours Wound cx grew Ecoli and staph aureus Wound care on board Continue daily wound care Continue pain control with percocet prn (3) Type 2 diabetes mellitus: Last A1c 12/05/2018 6.8 Hold outpatient metformin Lantus/NovoLog per protocol (4) COPD (chronic obstructive pulmonary disease): Continue DuoNeb and incentive spirometry Continue Advair Stable (5) Chronic deep vein thrombosis (DVT): (6) Hypercoagulable state: Secondary to heterozygous MTHFR mutation Continue warfarin with INR 2.9 today Since pt on abx will change today comadin from 15mg to 10mg Monitor PT/INR (7) GERD (gastroesophageal reflux disease): Continue PPI (8) Tobacco abuse: Nicotine patch ordered Counseling on smoking cessation (9) Chronic narcotic use: Continue oxycodone as needed (10) Cirrhosis: Liver cirrhosis secondary to history of alcohol abuse No recent alcohol use Continue Lasix and Aldactone for volume management of ascites Stable (11) DVT prophylaxis: On Coumadin, INR 2.9 Disposition Discharge once medically stable Subjective Ptr was seen and examined Lying in bed with no distress Continue complaint of LE tenderness Denies any chest pain, palpitation and SOB Physical Exam Physical Exam: General- No acute distress Head- atraumatic Eyes- PERRL, EOMI, ENT- oropharynx clear Neck- supple, no JVD Lungs- clear to auscultation Heart- regular rhythm; no murmur Abdomen- normal bowel sounds, soft, nontender Extremities- Severe b/l LE nodular lymphedema with venous stasis changes, multiple open venous stasis ulcerations right pretibial and medial calf with foul smelling drainage cover with dressing Neuro- alert, oriented x 3; PERRL, EOMI; no facial palsy; no dysarthria Skin- warm & dry Results & Data Vital Signs (Past 12 Hours) Vital Signs Temp Pulse Resp BP Pulse Ox 01/17/19 15:24 85 18 95 01/17/19 15:01 36.7 C 80 18 123/80 95 01/17/19 10:41 76 16 95 01/17/19 07:38 36.5 C 75 18 118/82 96 01/17/19 07:09 92 H 16 95 (1) Chronic ulcer of lower extremity Laterality: unspecified laterality Non-pressure ulcer stage: unspecified non- pressure ulcer stage Qualified Code(s): L97.909 - Non-pressure chronic ulcer of unspecified part of unspecified lower leg with unspecified severity (2) Type 2 diabetes mellitus 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 (3) Chronic deep vein thrombosis (DVT) Affected thrombotic vein of extremity: unspecified vein of extremity DVT location: lower extremity Laterality: right Qualified Code(s): I82.501 - Chronic embolism and thrombosis of unspecified deep veins of right lower extremity (4) COPD (chronic obstructive pulmonary disease) COPD type: unspecified COPD Qualified Code(s): J44.9 - Chronic obstructive pulmonary disease, unspecified (5) GERD (gastroesophageal reflux disease) Esophagitis presence: esophagitis presence not specified Qualified Code(s): K21.9 - Gastro-esophageal reflux disease without esophagitis
--- NOTE | 2019-01-17 21:29 | Infectious Disease Progress Nt ---
Date of Service January 17, 2019 Assessment & Plan (1) Bilateral cellulitis of lower leg: Recurrent lower extremity cellulitis, with cultures again growing staph and E. coli. Continue on IV ceftaroline. Will follow. Subjective Lying in bed with no distress Continue complaint of LE tenderness Denies any chest pain, palpitation and SOB . Remains afebrile. Growing E. coli and staph. Review of Systems Review of Systems: All systems reviewed & are unremarkable except as noted in HPI & below Physical Exam Constitutional: WD/WN, vitals as above comfortable; no acute distress Eyes: PERRL, conjunctivae normal, anicteric sclerae ENMT: external ear and nose normal, oropharynx normal Neck: trachea midline, no thyromegaly neck nontender Respiratory: normal respiratory effort, lungs clear to auscultation normal percussion; does not use accessory muscles Cardiovascular: Rate/Rhythm: regular rate and regular rhythm Heart Sounds: normal S1 and normal S2; no gallop, no murmur and no cardiac rub Vessels: normal peripheral pulses; no JVD Gastrointestinal (Abdomen): normal bowel sounds, soft, nontender, no hepatosplenomegaly Musculoskeletal: no cyanosis or clubbing, extremities motor strength 5/5 Spine: thoracic spine normal to inspection and lumbar spine normal to inspection; no cervical spinal tenderness Skin: normal turgor, + wound (Superficial ulcerations both legs) and + erythema (Both legs); no rashes Neurologic: patellar DTR's 2+ bilat, sensation intact no focal motor deficits Psychiatric: A+Ox3, euthymic affect Orientation: cooperative Lymphatic: no cervical or axillary lymphadenopathy no inguinal lymphadenopathy Results & Data Vital Signs (Past 12 Hours) Vital Signs Temp Pulse Resp BP Pulse Ox 01/17/19 19:47 106 H 18 97 01/17/19 15:24 85 18 95 01/17/19 15:01 36.7 C 80 18 123/80 95 01/17/19 10:41 76 16 95 Laboratory Results Short CBC 01/17/19 Range/Units 06:13 WBC 2.27 L (4.8-10.8) K/uL Hgb 12.4 L (14.0-18.0) g/dL Hct 37.7 L (42-52) % Plt Count 143 (130-400) K/uL BMP 01/17/19 06:13 Sodium 136 Potassium 4.1 Chloride 104 Carbon Dioxide 27 BUN 8 Creatinine 0.83 Glucose 223 H Calcium 8.7 Diagnostic Findings Microbiology 01/15/19 Unknown Leg Gram Stain - Final 01/15/19 Unknown Leg Wound Culture - Preliminary Escherichia coli Staphylococcus species
[2019-01-17] MEDS: MIRTAZAPINE TAB 15 MG TAB PO SCH (21:55)
[2019-01-18] MEDS: OXYCODONE/ACETAMINOPHEN 5mg/325mg TAB PO PRN ×4 (06:38→21:17)
[2019-01-18 06:43] LABS: Hematocrit (blood only) 37.8 % (42-52); Hemoglobin 12.9 g/dL (14.0-18.0); Mean Corpuscular Hgb Conc 34.1 g/dL (32-36); Mean Corpuscular Volume 86.7 fL (80-100); Mean Platelet Volume 9.2 fL (7.4-10.4); Platelet Count 158 K/uL (130-400); RDW Standard Deviation 51.1 fL (36.4-46.3); Red Blood Count 4.36 M/uL (4.7-6.1); White Blood Count 2.42 K/uL (4.8-10.8)
[2019-01-18 06:53] LABS: INR 2.6 (0.9-1.1); Prothrombin Time 24.5 Seconds (9.0-12.0)
[2019-01-18] MEDS: ALBUT/IPRATROP 3MG/0.5MG NEB 3 ML VIAL NEB SCH ×4 (07:01→19:21)
[2019-01-18 07:20] LABS: BUN Creatinine Ratio 10.5 (10-20); Calcium 9.4 mg/dl (8.5-10.1); Creatinine Clr Calc Pharmacy 137.1 ml/min; Est GFR (African American) 122.2; Est GFR (Non-African American) 105.5; Potassium 4.1 mmol/L (3.5-5.1)
[2019-01-18] MEDS: FLUTICASONE/SALMETEROL (ADVAIR) 500/50 INH 14 PUFF INH SCH ×2 (08:09→21:10)
[2019-01-18] MEDS: MULTIVITAMIN TAB PO SCH (08:10)
[2019-01-18] MEDS: SACCHAROMYCES BOULARDII 250 MG CAP PO SCH (08:10)
[2019-01-18] MEDS: FOLIC ACID 1 MG TAB PO SCH (08:10)
[2019-01-18] MEDS: DOCUSATE SODIUM 100 MG CAP PO SCH ×2 (08:10→21:11)
[2019-01-18] MEDS: GABAPENTIN 300 MG CAP PO SCH ×4 (08:10→21:11)
[2019-01-18] MEDS: NICOTINE 21 MG/24 HR TDSY TD SCH (08:10)
[2019-01-18] MEDS: PANTOprazole 40 MG TAB PO SCH ×2 (08:10→21:12)
[2019-01-18] MEDS: SPIRONOLACTONE 100 MG TAB PO SCH (08:10)
[2019-01-18] MEDS: FUROSEMIDE 40 MG TAB PO SCH (08:10)
[2019-01-18] MEDS: INSULIN GLARGINE SOLOSTAR 100 UNITS/ML 3 ML PEN SC SCH ×2 (08:12→21:09)
[2019-01-18] MEDS: INSULIN ASPART 100 UNITS/ML 3 ML PEN SC SCH ×4 (08:14→21:10)
[2019-01-18] MEDS: CEFTAROLINE FOSAMIL ACETATE 600 MG in SODIUM CHLORIDE 0.9% 250 ML IV SCH ×2 (11:13→23:37)
[2019-01-18] MEDS: WARFARIN SOD 10 MG TAB PO SCH (15:43)
--- NOTE | 2019-01-18 19:11 | Hospitalist Progress Note ---
Date of Service January 18, 2019 Assessment & Plan (1) Chronic ulcer of lower extremity: (2) Bilateral cellulitis of lower leg: Multiple admission for recurrent wound infections. Recently completed a 28-day course of IV ceftaroline for E. coli infection ID on board recommended to continue IV ceftaroline 600 mg every 12 hours Wound cx grew Ecoli and staph aureus Wound care on board Continue daily wound care Continue pain control with percocet prn (3) Type 2 diabetes mellitus: Last A1c 12/05/2018 6.8 Hold outpatient metformin Lantus/NovoLog per protocol (4) COPD (chronic obstructive pulmonary disease): Continue DuoNeb and incentive spirometry Continue Advair Stable (5) Chronic deep vein thrombosis (DVT): Continue warfarin (6) Hypercoagulable state: Secondary to heterozygous MTHFR mutation Continue warfarin with INR 2.9 today Since pt on abx will change today comadin from 15mg to 10mg Monitor PT/INR (7) GERD (gastroesophageal reflux disease): Continue PPI (8) Tobacco abuse: Nicotine patch ordered Counseling on smoking cessation (9) Chronic narcotic use: Continue oxycodone as needed (10) Cirrhosis: Liver cirrhosis secondary to history of alcohol abuse No recent alcohol use Continue Lasix and Aldactone for volume management of ascites Stable (11) DVT prophylaxis: On Coumadin, INR 2.6 Disposition Discharge once medically stable Subjective Pt was seen and examined Lying in bed with no distress Pt said that pain increases during dressing changes Denies any fever, palpitation, dizziness and SOB Physical Exam Physical Exam: General- No acute distress Head- atraumatic Eyes- PERRL, EOMI, ENT- oropharynx clear Neck- supple, no JVD Lungs- clear to auscultation Heart- regular rhythm; no murmur Abdomen- normal bowel sounds, soft, nontender Extremities- Severe b/l LE nodular lymphedema with venous stasis changes, multiple open venous stasis ulcerations right pretibial and medial calf with foul smelling drainage cover with dressing Neuro- alert, oriented x 3; PERRL, EOMI; no facial palsy; no dysarthria Skin- warm & dry Results & Data Vital Signs (Past 12 Hours) Vital Signs Temp Pulse Resp BP Pulse Ox 01/18/19 15:06 36.4 C L 92 H 16 122/82 97 01/18/19 11:11 72 16 97 01/18/19 07:16 36.5 C 82 18 117/77 94 (1) Chronic ulcer of lower extremity Laterality: unspecified laterality Non-pressure ulcer stage: unspecified non- pressure ulcer stage Qualified Code(s): L97.909 - Non-pressure chronic ulcer of unspecified part of unspecified lower leg with unspecified severity (2) Type 2 diabetes mellitus 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: without 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 use (3) Chronic deep vein thrombosis (DVT) Affected thrombotic vein of extremity: unspecified vein of extremity DVT location: lower extremity Laterality: right Qualified Code(s): I82.501 - Chronic embolism and thrombosis of unspecified deep veins of right lower extremity (4) COPD (chronic obstructive pulmonary disease) COPD type: unspecified COPD Qualified Code(s): J44.9 - Chronic obstructive pulmonary disease, unspecified (5) GERD (gastroesophageal reflux disease) Esophagitis presence: esophagitis presence not specified Qualified Code(s): K21.9 - Gastro-esophageal reflux disease without esophagitis
[2019-01-18] MEDS: MIRTAZAPINE TAB 15 MG TAB PO SCH (21:11)
[2019-01-19] MEDS: ALBUT/IPRATROP 3MG/0.5MG NEB 3 ML VIAL NEB SCH ×4 (07:09→18:54)
[2019-01-19] MEDS: OXYCODONE/ACETAMINOPHEN 5mg/325mg TAB PO PRN ×3 (08:20→21:03)
[2019-01-19] MEDS: FOLIC ACID 1 MG TAB PO SCH (08:21)
[2019-01-19] MEDS: DOCUSATE SODIUM 100 MG CAP PO SCH ×2 (08:21→20:21)
[2019-01-19] MEDS: GABAPENTIN 300 MG CAP PO SCH ×4 (08:21→20:21)
[2019-01-19] MEDS: FUROSEMIDE 40 MG TAB PO SCH (08:21)
[2019-01-19] MEDS: SACCHAROMYCES BOULARDII 250 MG CAP PO SCH (08:21)
[2019-01-19] MEDS: SPIRONOLACTONE 100 MG TAB PO SCH (08:21)
[2019-01-19] MEDS: NICOTINE 21 MG/24 HR TDSY TD SCH (08:22)
[2019-01-19] MEDS: MULTIVITAMIN TAB PO SCH (08:22)
[2019-01-19] MEDS: PANTOprazole 40 MG TAB PO SCH ×2 (08:22→20:22)
[2019-01-19] MEDS: FLUTICASONE/SALMETEROL (ADVAIR) 500/50 INH 14 PUFF INH SCH ×2 (08:22→20:20)
[2019-01-19] MEDS: INSULIN ASPART 100 UNITS/ML 3 ML PEN SC SCH ×4 (08:27→20:24)
[2019-01-19] MEDS: INSULIN GLARGINE SOLOSTAR 100 UNITS/ML 3 ML PEN SC SCH ×2 (08:29→20:23)
[2019-01-19] MEDS: CEFTAROLINE FOSAMIL ACETATE 600 MG in SODIUM CHLORIDE 0.9% 250 ML IV SCH ×2 (11:31→23:01)
[2019-01-19] MEDS ORDERED: MoRPHine SULFATE 2 MG/ML CARP IV STA (12:20)
[2019-01-19] MEDS: WARFARIN SOD 7.5 MG TAB PO SCH (17:03)
--- NOTE | 2019-01-19 17:04 | Hospitalist Progress Note ---
Date of Service January 19, 2019 Assessment & Plan (1) Chronic ulcer of lower extremity: (2) Bilateral cellulitis of lower leg: Multiple admission for recurrent wound infections. Recently completed a 28-day course of IV ceftaroline for E. coli infection ID on board recommended to continue IV ceftaroline 600 mg every 12 hours Wound cx grew Ecoli and MRSA Wound care on board Continue daily wound care Continue pain control with percocet prn Case discussed with ID recommended to continue IV ceftaroline for 4 weeks Case management aware to arrange for placement for abx infusion Monitor CBC and BMP weekly (3) Type 2 diabetes mellitus: Last A1c 12/05/2018 6.8 Hold outpatient metformin Lantus/NovoLog per protocol Monitor BS (4) COPD (chronic obstructive pulmonary disease): Continue DuoNeb and incentive spirometry Continue Advair Stable (5) Chronic deep vein thrombosis (DVT): Continue warfarin (6) Hypercoagulable state: Secondary to heterozygous MTHFR mutation Continue warfarin with INR 2.6 Continue coumadin Monitor PT/INR (7) GERD (gastroesophageal reflux disease): Continue PPI (8) Tobacco abuse: Nicotine patch ordered Counseling on smoking cessation (9) Chronic narcotic use: Continue oxycodone as needed (10) Cirrhosis: Liver cirrhosis secondary to history of alcohol abuse No recent alcohol use Continue Lasix and Aldactone for volume management of ascites Stable (11) DVT prophylaxis: On Coumadin, INR 2.6 Disposition Waiting for placement Will need 4 weeks of IV abx Subjective Pt was seen and examined Lying in bed with no distress Pt said that his legs are looking better He said that pain still the same I discussed with patient that he will need 4 weeks of IV abx Pt said that he would not be able to infuse the abx on his own He said that he would like to go back to [place] for placement to get the abx infusion Denies any chest pain, palpitation and SOB Physical Exam Physical Exam: General- No acute distress Head- atraumatic Eyes- PERRL, EOMI, ENT- oropharynx clear Neck- supple, no JVD Lungs- clear to auscultation Heart- regular rhythm; no murmur Abdomen- normal bowel sounds, soft, nontender Extremities- Severe b/l LE nodular lymphedema with venous stasis changes, multiple open venous stasis ulcerations right pretibial and medial calf with foul smelling drainage cover with dressing Neuro- alert, oriented x 3; PERRL, EOMI; no facial palsy; no dysarthria Skin- warm & dry Results & Data Vital Signs (Past 12 Hours) Vital Signs Temp Pulse Resp BP Pulse Ox 01/19/19 16:00 36.4 C L 83 18 113/73 100 01/19/19 15:12 83 18 96 01/19/19 11:00 84 18 96 01/19/19 07:31 36.5 C 75 18 116/77 01/19/19 07:09 84 18 96 (1) Chronic ulcer of lower extremity Laterality: unspecified laterality Non-pressure ulcer stage: unspecified non- pressure ulcer stage Qualified Code(s): L97.909 - Non-pressure chronic ulcer of unspecified part of unspecified lower leg with unspecified severity (2) Type 2 diabetes mellitus Diabetes mellitus intermodal customer service insulin use: without intermodal customer service use (3) Chronic deep vein thrombosis (DVT) Affected thrombotic vein of extremity: unspecified vein of extremity DVT location: lower extremity Laterality: right Qualified Code(s): I82.501 - Chronic embolism and thrombosis of unspecified deep veins of right lower extremity (4) COPD (chronic obstructive pulmonary disease) COPD type: unspecified COPD Qualified Code(s): J44.9 - Chronic obstructive pulmonary disease, unspecified (5) GERD (gastroesophageal reflux disease) Esophagitis presence: esophagitis presence not specified Qualified Code(s): K21.9 - Gastro-esophageal reflux disease without esophagitis
[2019-01-19] MEDS: MIRTAZAPINE TAB 15 MG TAB PO SCH (20:22)
[2019-01-20 06:20] LABS: INR 2.2 (0.9-1.1); Prothrombin Time 21.5 Seconds (9.0-12.0)
[2019-01-20 06:45] LABS: BUN Creatinine Ratio 13.5 (10-20); Calcium 9.4 mg/dl (8.5-10.1); Creatinine Clr Calc Pharmacy 129.6 ml/min; Est GFR (African American) 118.4; Est GFR (Non-African American) 102.1; Potassium 4.3 mmol/L (3.5-5.1)
[2019-01-20] MEDS: ALBUT/IPRATROP 3MG/0.5MG NEB 3 ML VIAL NEB SCH ×2 (07:15→11:26)
[2019-01-20] MEDS: INSULIN ASPART 100 UNITS/ML 3 ML PEN SC SCH ×4 (08:30→20:35)
[2019-01-20] MEDS: INSULIN GLARGINE SOLOSTAR 100 UNITS/ML 3 ML PEN SC SCH ×2 (08:30→20:34)
[2019-01-20] MEDS: OXYCODONE/ACETAMINOPHEN 5mg/325mg TAB PO PRN ×4 (08:31→20:33)
[2019-01-20] MEDS: GABAPENTIN 300 MG CAP PO SCH ×4 (08:33→20:32)
[2019-01-20] MEDS: PANTOprazole 40 MG TAB PO SCH ×2 (08:33→20:32)
[2019-01-20] MEDS: DOCUSATE SODIUM 100 MG CAP PO SCH ×2 (08:33→20:31)
[2019-01-20] MEDS: SPIRONOLACTONE 100 MG TAB PO SCH (08:33)
[2019-01-20] MEDS: MULTIVITAMIN TAB PO SCH (08:33)
[2019-01-20] MEDS: FOLIC ACID 1 MG TAB PO SCH (08:33)
[2019-01-20] MEDS: FLUTICASONE/SALMETEROL (ADVAIR) 500/50 INH 14 PUFF INH SCH ×2 (08:34→20:34)
[2019-01-20] MEDS: NICOTINE 21 MG/24 HR TDSY TD SCH (08:34)
[2019-01-20] MEDS: FUROSEMIDE 40 MG TAB PO SCH (08:34)
[2019-01-20] MEDS: SACCHAROMYCES BOULARDII 250 MG CAP PO SCH (08:34)
[2019-01-20] MEDS: CEFTAROLINE FOSAMIL ACETATE 600 MG in SODIUM CHLORIDE 0.9% 250 ML IV SCH ×2 (11:18→23:35)
[2019-01-20] MEDS: WARFARIN SOD 10 MG TAB PO SCH (16:32)
--- NOTE | 2019-01-20 17:05 | Hospitalist Progress Note ---
Date of Service January 20, 2019 Assessment & Plan (1) Chronic ulcer of lower extremity: (2) Bilateral cellulitis of lower leg: Multiple admission for recurrent wound infections. Recently completed a 28-day course of IV ceftaroline for E. coli infection ID on board recommended to continue IV ceftaroline 600 mg every 12 hours Wound cx grew Ecoli and MRSA Wound care on board Continue daily wound care Continue pain control with percocet prn Case discussed with ID recommended to continue IV ceftaroline for 4 weeks Case management aware to arrange for placement for abx infusion Monitor CBC and BMP weekly (3) Type 2 diabetes mellitus: Last A1c 12/05/2018 6.8 Hold outpatient metformin Lantus/NovoLog per protocol Monitor BS (4) COPD (chronic obstructive pulmonary disease): Continue DuoNeb and incentive spirometry Continue Advair Stable (5) Chronic deep vein thrombosis (DVT): Continue warfarin (6) Hypercoagulable state: Secondary to heterozygous MTHFR mutation Continue warfarin with INR 2.2 Continue coumadin Monitor PT/INR (7) GERD (gastroesophageal reflux disease): Continue PPI (8) Tobacco abuse: Nicotine patch ordered Counseling on smoking cessation (9) Chronic narcotic use: Continue oxycodone as needed (10) Cirrhosis: Liver cirrhosis secondary to history of alcohol abuse No recent alcohol use Continue Lasix and Aldactone for volume management of ascites Stable (11) DVT prophylaxis: On Coumadin, INR 2.2 Disposition Waiting for placement Will need 4 weeks of IV abx Subjective Pt was seen and examined Lying in bed with no distress Denies any new complaint Physical Exam Physical Exam: General- No acute distress Head- atraumatic Eyes- PERRL, EOMI, ENT- oropharynx clear Neck- supple, no JVD Lungs- clear to auscultation Heart- regular rhythm; no murmur Abdomen- normal bowel sounds, soft, nontender Extremities- Severe b/l LE nodular lymphedema with venous stasis changes, multiple open venous stasis ulcerations right pretibial and medial calf with foul smelling drainage cover with dressing Neuro- alert, oriented x 3; PERRL, EOMI; no facial palsy; no dysarthria Skin- warm & dry Results & Data Vital Signs (Past 12 Hours) Vital Signs Temp Pulse Resp BP Pulse Ox 01/20/19 15:00 36.5 C 87 22 124/83 97 01/20/19 11:27 86 16 96 01/20/19 07:15 80 16 95 01/20/19 07:00 36.6 C 81 18 115/77 95 (1) Chronic ulcer of lower extremity Laterality: unspecified laterality Non-pressure ulcer stage: unspecified non- pressure ulcer stage Qualified Code(s): L97.909 - Non-pressure chronic ulcer of unspecified part of unspecified lower leg with unspecified severity (2) Type 2 diabetes mellitus Diabetes mellitus fpc insulin use: without fpc use (3) Chronic deep vein thrombosis (DVT) Affected thrombotic vein of extremity: unspecified vein of extremity DVT location: lower extremity Laterality: right Qualified Code(s): I82.501 - Chronic embolism and thrombosis of unspecified deep veins of right lower extremity (4) COPD (chronic obstructive pulmonary disease) COPD type: unspecified COPD Qualified Code(s): J44.9 - Chronic obstructive pulmonary disease, unspecified (5) GERD (gastroesophageal reflux disease) Esophagitis presence: esophagitis presence not specified Qualified Code(s): K21.9 - Gastro-esophageal reflux disease without esophagitis
[2019-01-20] MEDS: IPRATROPIUM BROMIDE/ALBUTEROL respimat INH INH SCH ×2 (17:47→20:30)
--- NOTE | 2019-01-20 19:46 | Infectious Disease Progress Nt ---
Date of Service January 20, 2019 Assessment & Plan (1) Bilateral cellulitis of lower leg: Recurrent lower extremity cellulitis, with cultures again growing MRSA and E. coli. Continue on IV ceftaroline. Will follow. Subjective Pt was seen and examined Lying in bed with no distress Denies any new complaint Review of Systems Review of Systems: All systems reviewed & are unremarkable except as noted in HPI & below Physical Exam Constitutional: WD/WN, vitals as above comfortable; no acute distress Eyes: PERRL, conjunctivae normal, anicteric sclerae ENMT: external ear and nose normal, oropharynx normal Neck: trachea midline, no thyromegaly neck nontender Respiratory: normal respiratory effort, lungs clear to auscultation normal percussion; does not use accessory muscles Cardiovascular: Rate/Rhythm: regular rate and regular rhythm Heart Sounds: normal S1 and normal S2; no gallop, no murmur and no cardiac rub Vessels: normal peripheral pulses; no JVD Gastrointestinal (Abdomen): normal bowel sounds, soft, nontender, no hepatosplenomegaly Musculoskeletal: no cyanosis or clubbing, extremities motor strength 5/5 Spine: thoracic spine normal to inspection and lumbar spine normal to inspection; no cervical spinal tenderness Skin: normal turgor, + wound (Superficial ulcerations both legs) and + erythema (Both legs); no rashes Neurologic: patellar DTR's 2+ bilat, sensation intact no focal motor defici ts Psychiatric: A+Ox3, euthymic affect Orientation: cooperative Lymphatic: no cervical or axillary lymphadenopathy no inguinal lymphadenopathy Results & Data Vital Signs (Past 12 Hours) Vital Signs Temp Pulse Resp BP Pulse Ox 01/20/19 15:00 36.5 C 87 22 124/83 97 01/20/19 11:27 86 16 96 Laboratory Results Laboratory Results - last 48 hr 01/18/19 01/19/19 01/19/19 19:59 07:56 11:55 PT INR Sodium Potassium Chloride Carbon Dioxide Anion Gap BUN Creatinine Est Cr Clr Drug Dosing Est GFR ( Amer) Est GFR (Non-Af Amer) BUN/Creatinine Ratio Glucose POC Glucose 249 H 178 H 205 H Calcium 01/19/19 01/19/19 01/20/19 17:01 20:12 05:35 PT 21.5 H INR 2.2 H Sodium Potassium Chloride Carbon Dioxide Anion Gap BUN Creatinine Est Cr Clr Drug Dosing Est GFR ( Amer) Est GFR (Non-Af Amer) BUN/Creatinine Ratio Glucose POC Glucose 175 H 253 H Calcium 01/20/19 01/20/19 01/20/19 05:35 08:08 11:53 PT INR Sodium 140 Potassium 4.3 Chloride 105 Carbon Dioxide 30 Anion Gap 5.0 BUN 12 Creatinine 0.91 Est Cr Clr Drug Dosing 129.6 Est GFR ( Amer) 118.4 Est GFR (Non-Af Amer) 102.1 BUN/Creatinine Ratio 13.5 Glucose 159 H POC Glucose 146 H 179 H Calcium 9.4 01/20/19 16:29 PT INR Sodium Potassium Chloride Carbon Dioxide Anion Gap BUN Creatinine Est Cr Clr Drug Dosing Est GFR ( Amer) Est GFR (Non-Af Amer) BUN/Creatinine Ratio Glucose POC Glucose 169 H Calcium Diagnostic Findings Microbiology 01/15/19 Unknown Leg Gram Stain - Final 01/15/19 Unknown Leg Wound Culture - Final Escherichia coli Staph aureus MRSA
[2019-01-20] MEDS: MIRTAZAPINE TAB 15 MG TAB PO SCH (20:32)
[2019-01-20] MEDS ORDERED: NURSING DECISION MEDICATION PRN (21:15)
[2019-01-21] MEDS: IPRATROPIUM BROMIDE/ALBUTEROL respimat INH INH SCH ×4 (08:18→21:07)
[2019-01-21] MEDS: SACCHAROMYCES BOULARDII 250 MG CAP PO SCH (08:18)
[2019-01-21] MEDS: PANTOprazole 40 MG TAB PO SCH ×2 (08:18→21:08)
[2019-01-21] MEDS: DOCUSATE SODIUM 100 MG CAP PO SCH ×2 (08:18→21:06)
[2019-01-21] MEDS: MULTIVITAMIN TAB PO SCH (08:18)
[2019-01-21] MEDS: FLUTICASONE/SALMETEROL (ADVAIR) 500/50 INH 14 PUFF INH SCH ×2 (08:19→21:06)
[2019-01-21] MEDS: SPIRONOLACTONE 100 MG TAB PO SCH (08:20)
[2019-01-21] MEDS: GABAPENTIN 300 MG CAP PO SCH ×4 (08:20→21:07)
[2019-01-21] MEDS: FUROSEMIDE 40 MG TAB PO SCH (08:20)
[2019-01-21] MEDS: FOLIC ACID 1 MG TAB PO SCH (08:20)
[2019-01-21] MEDS: NICOTINE 21 MG/24 HR TDSY TD SCH (08:21)
[2019-01-21] MEDS: INSULIN ASPART 100 UNITS/ML 3 ML PEN SC SCH ×4 (08:26→21:10)
[2019-01-21] MEDS: INSULIN GLARGINE SOLOSTAR 100 UNITS/ML 3 ML PEN SC SCH ×2 (08:27→21:10)
[2019-01-21] MEDS: OXYCODONE/ACETAMINOPHEN 5mg/325mg TAB PO PRN ×4 (08:37→21:05)
[2019-01-21] MEDS: CEFTAROLINE FOSAMIL ACETATE 600 MG in SODIUM CHLORIDE 0.9% 250 ML IV SCH ×2 (11:15→22:14)
[2019-01-21] MEDS: EUCERIN CR 120 GM JAR EXT PRN (12:28)
[2019-01-21] MEDS: WARFARIN SOD 10 MG TAB PO SCH (16:29)
--- NOTE | 2019-01-21 17:21 | Hospitalist Progress Note ---
Date of Service January 21, 2019 Assessment & Plan (1) Chronic ulcer of lower extremity: (2) Bilateral cellulitis of lower leg: Multiple admission for recurrent wound infections. Recently completed a 28-day course of IV ceftaroline for E. coli infection ID on board recommended to continue IV ceftaroline 600 mg every 12 hours Wound cx grew Ecoli and MRSA Wound care on board Continue daily wound care Continue pain control with percocet prn Case discussed with ID recommended to continue IV ceftaroline for 4 weeks Case management aware to arrange for placement for abx infusion Monitor CBC and BMP weekly Waiting for placement (3) Type 2 diabetes mellitus: Last A1c 12/05/2018 6.8 Hold outpatient metformin Lantus/NovoLog per protocol Monitor BS (4) COPD (chronic obstructive pulmonary disease): Continue DuoNeb and incentive spirometry Continue Advair Stable (5) Chronic deep vein thrombosis (DVT): Continue warfarin (6) Hypercoagulable state: Secondary to heterozygous MTHFR mutation Continue warfarin with INR 2.2 Continue coumadin Monitor PT/INR (7) GERD (gastroesophageal reflux disease): Continue PPI (8) Tobacco abuse: Nicotine patch ordered Counseling on smoking cessation (9) Chronic narcotic use: Continue oxycodone as needed (10) Cirrhosis: Liver cirrhosis secondary to history of alcohol abuse No recent alcohol use Continue Lasix and Aldactone for volume management of ascites Stable (11) DVT prophylaxis: On Coumadin, INR 2.2 Disposition Waiting for placement Will need 4 weeks of IV abx Subjective Pt was seen and examined Lying in bed with no distress Pt said that he fees ok Denies any new complaints Physical Exam Physical Exam: General- No acute distress Head- atraumatic Eyes- PERRL, EOMI, ENT- oropharynx clear Neck- supple, no JVD Lungs- clear to auscultation Heart- regular rhythm; no murmur Abdomen- normal bowel sounds, soft, nontender Extremities- Severe b/l LE nodular lymphedema with venous stasis changes, multiple open venous stasis ulcerations right pretibial and medial calf with foul smelling drainage cover with dressing Neuro- alert, oriented x 3; PERRL, EOMI; no facial palsy; no dysarthria Skin- warm & dry Results & Data Vital Signs (Past 12 Hours) Vital Signs Temp Pulse Resp BP Pulse Ox 01/21/19 15:49 36.6 C 73 19 125/83 94 01/21/19 07:20 36.6 C 84 18 99/69 L 94 (1) Chronic ulcer of lower extremity Laterality: unspecified laterality Non-pressure ulcer stage: unspecified non- pressure ulcer stage Qualified Code(s): L97.909 - Non-pressure chronic ulcer of unspecified part of unspecified lower leg with unspecified severity (2) Type 2 diabetes mellitus Diabetes mellitus usp insulin use: without usp use (3) Chronic deep vein thrombosis (DVT) Affected thrombotic vein of extremity: unspecified vein of extremity DVT location: lower extremity Laterality: right Qualified Code(s): I82.501 - Chronic embolism and thrombosis of unspecified deep veins of right lower extremity (4) COPD (chronic obstructive pulmonary disease) COPD type: unspecified COPD Qualified Code(s): J44.9 - Chronic obstructive pulmonary disease, unspecified (5) GERD (gastroesophageal reflux disease) Esophagitis presence: esophagitis presence not specified Qualified Code(s): K21.9 - Gastro-esophageal reflux disease without esophagitis
[2019-01-21] MEDS: MIRTAZAPINE TAB 15 MG TAB PO SCH (21:08)
[2019-01-22 06:56] LABS: INR 2.3 (0.9-1.1)
[2019-01-22] MEDS: OXYCODONE/ACETAMINOPHEN 5mg/325mg TAB PO PRN ×4 (08:17→20:57)
[2019-01-22] MEDS: FLUTICASONE/SALMETEROL (ADVAIR) 500/50 INH 14 PUFF INH SCH ×2 (08:18→21:00)
[2019-01-22] MEDS: MULTIVITAMIN TAB PO SCH (08:18)
[2019-01-22] MEDS: NICOTINE 21 MG/24 HR TDSY TD SCH (08:18)
[2019-01-22] MEDS: SPIRONOLACTONE 100 MG TAB PO SCH (08:19)
[2019-01-22] MEDS: DOCUSATE SODIUM 100 MG CAP PO SCH ×2 (08:19→21:00)
[2019-01-22] MEDS: GABAPENTIN 300 MG CAP PO SCH ×4 (08:19→21:00)
[2019-01-22] MEDS: FOLIC ACID 1 MG TAB PO SCH (08:19)
[2019-01-22] MEDS: PANTOprazole 40 MG TAB PO SCH ×2 (08:19→20:59)
[2019-01-22] MEDS: SACCHAROMYCES BOULARDII 250 MG CAP PO SCH (08:19)
[2019-01-22] MEDS: FUROSEMIDE 40 MG TAB PO SCH (08:19)
[2019-01-22] MEDS: IPRATROPIUM BROMIDE/ALBUTEROL respimat INH INH SCH ×4 (08:20→21:01)
[2019-01-22] MEDS: INSULIN GLARGINE SOLOSTAR 100 UNITS/ML 3 ML PEN SC SCH ×2 (08:21→21:05)
[2019-01-22] MEDS: INSULIN ASPART 100 UNITS/ML 3 ML PEN SC SCH ×4 (08:28→21:03)
[2019-01-22] MEDS: CEFTAROLINE FOSAMIL ACETATE 600 MG in SODIUM CHLORIDE 0.9% 250 ML IV SCH ×2 (12:00→22:02)
[2019-01-22] MEDS: WARFARIN SOD 7.5 MG TAB PO SCH (16:49)
--- NOTE | 2019-01-22 17:41 | Infectious Disease Progress Nt ---
Date of Service January 22, 2019 Assessment & Plan (1) Bilateral cellulitis of lower leg: Recurrent lower extremity cellulitis, with cultures again growing MRSA and E. coli. Continue on IV ceftaroline. Will follow. Subjective Pt was seen and examined Lying in bed with no distress Pt said that he fees ok Denies any new complaints Review of Systems Review of Systems: All systems reviewed & are unremarkable except as noted in HPI & below Physical Exam Constitutional: WD/WN, vitals as above comfortable; no acute distress Eyes: PERRL, conjunctivae normal, anicteric sclerae ENMT: external ear and nose normal, oropharynx normal Neck: trachea midline, no thyromegaly neck nontender Respiratory: normal respiratory effort, lungs clear to auscultation normal percussion; does not use accessory muscles Cardiovascular: Rate/Rhythm: regular rate and regular rhythm Heart Sounds: normal S1 and normal S2; no gallop, no murmur and no cardiac rub Vessels: normal peripheral pulses; no JVD Gastrointestinal (Abdomen): normal bowel sounds, soft, nontender, no hepatosplenomegaly Musculoskeletal: no cyanosis or clubbing, extremities motor strength 5/5 Spine: thoracic spine normal to inspection and lumbar spine normal to inspection; no cervical spinal tenderness Skin: normal turgor, + wound (Superficial ulcerations both legs) and + erythema (Both legs); no rashes Neurologic: patellar DTR's 2+ bilat, sensation intact no focal motor deficits Psychiatric: A+Ox3, euthymic affect Orientation: cooperative Lymphatic: no cervical or axillary lymphadenopathy no inguinal lymphadenopathy Results & Data Vital Signs (Past 12 Hours) Vital Signs Temp Pulse Resp BP Pulse Ox 01/22/19 15:52 36.7 C 85 20 126/84 96 01/22/19 07:55 36.6 C 73 18 130/80 96 Laboratory Results Laboratory Results - last 48 hr 01/20/19 01/21/19 01/21/19 20:12 08:06 11:58 PT INR POC Glucose 237 H 155 H 186 H 01/21/19 01/21/19 01/22/19 16:38 20:22 06:08 PT 22.0 H INR 2.3 H POC Glucose 150 H 255 H 01/22/19 01/22/19 01/22/19 08:24 12:05 16:56 PT INR POC Glucose 159 H 195 H 190 H Diagnostic Findings Microbiology 01/15/19 Unknown Leg Gram Stain - Final 01/15/19 Unknown Leg Wound Culture - Final Escherichia coli Staph aureus MRSA
[2019-01-22] MEDS: MIRTAZAPINE TAB 15 MG TAB PO SCH (21:01)
--- NOTE | 2019-01-22 21:23 | Hospitalist Progress Note ---
Date of Service January 22, 2019 Assessment & Plan (1) Chronic ulcer of lower extremity: (2) Bilateral cellulitis of lower leg: Multiple admission for recurrent wound infections. Recently completed a 28-day course of IV ceftaroline for E. coli infection ID on board recommended to continue IV ceftaroline 600 mg every 12 hours Wound cx grew Ecoli and MRSA Wound care on board Continue daily wound care Continue pain control with percocet prn Case discussed with ID recommended to continue IV ceftaroline for 4 weeks Case management aware to arrange for placement for abx infusion Monitor CBC and BMP weekly Waiting for placement (3) Type 2 diabetes mellitus: Last A1c 12/05/2018 6.8 Hold outpatient metformin Lantus/NovoLog per protocol Monitor BS (4) COPD (chronic obstructive pulmonary disease): Continue DuoNeb and incentive spirometry Continue Advair Stable (5) Chronic deep vein thrombosis (DVT): Continue warfarin (6) Hypercoagulable state: Secondary to heterozygous MTHFR mutation Continue warfarin with INR 2.2 Continue coumadin Monitor PT/INR (7) GERD (gastroesophageal reflux disease): Continue PPI (8) Tobacco abuse: Nicotine patch ordered Counseling on smoking cessation (9) Chronic narcotic use: Continue oxycodone as needed (10) Cirrhosis: Liver cirrhosis secondary to history of alcohol abuse No recent alcohol use Continue Lasix and Aldactone for volume management of ascites Stable (11) DVT prophylaxis: On Coumadin, INR 2.2 Disposition Waiting for placement Will need 4 weeks of IV abx Subjective Pt was seen and examined Lying in bed with no distress Dressing changed today and wound look much better Does not want to go to any other facility bedside [facility] has no bed available Denies any chest pain, palpitation and SOB Physical Exam Physical Exam: General- No acute distress Head- atraumatic Eyes- PERRL, EOMI, ENT- oropharynx clear Neck- supple, no JVD Lungs- clear to auscultation Heart- regular rhythm; no murmur Abdomen- normal bowel sounds, soft, nontender Extremities- Severe b/l LE nodular lymphedema with venous stasis changes, multiple open venous stasis ulcerations right pretibial and medial calf with foul smelling drainage cover with dressing Neuro- alert, oriented x 3; PERRL, EOMI; no facial palsy; no dysarthria Skin- warm & dry Results & Data Vital Signs (Past 12 Hours) Vital Signs Temp Pulse Resp BP Pulse Ox 01/22/19 15:52 36.7 C 85 20 126/84 96 (1) Chronic ulcer of lower extremity Laterality: unspecified laterality Non-pressure ulcer stage: unspecified non- pressure ulcer stage Qualified Code(s): L97.909 - Non-pressure chronic ulcer of unspecified part of unspecified lower leg with unspecified severity (2) Type 2 diabetes mellitus Diabetes mellitus terminal worker insulin use: without terminal worker use (3) Chronic deep vein thrombosis (DVT) Affected thrombotic vein of extremity: unspecified vein of extremity DVT location: lower extremity Laterality: right Qualified Code(s): I82.501 - Chronic embolism and thrombosis of unspecified deep veins of right lower extremity (4) COPD (chronic obstructive pulmonary disease) COPD type: unspecified COPD Qualified Code(s): J44.9 - Chronic obstructive pulmonary disease, unspecified (5) GERD (gastroesophageal reflux disease) Esophagitis presence: esophagitis presence not specified Qualified Code(s): K21.9 - Gastro-esophageal reflux disease without esophagitis
[2019-01-23] MEDS: FUROSEMIDE 40 MG TAB PO SCH (08:36)
[2019-01-23] MEDS: DOCUSATE SODIUM 100 MG CAP PO SCH ×2 (08:36→20:48)
[2019-01-23] MEDS: SACCHAROMYCES BOULARDII 250 MG CAP PO SCH (08:36)
[2019-01-23] MEDS: FLUTICASONE/SALMETEROL (ADVAIR) 500/50 INH 14 PUFF INH SCH ×2 (08:36→20:47)
[2019-01-23] MEDS: SPIRONOLACTONE 100 MG TAB PO SCH (08:36)
[2019-01-23] MEDS: GABAPENTIN 300 MG CAP PO SCH ×4 (08:36→20:48)
[2019-01-23] MEDS: FOLIC ACID 1 MG TAB PO SCH (08:37)
[2019-01-23] MEDS: IPRATROPIUM BROMIDE/ALBUTEROL respimat INH INH SCH ×4 (08:37→20:48)
[2019-01-23] MEDS: NICOTINE 21 MG/24 HR TDSY TD SCH (08:37)
[2019-01-23] MEDS: MULTIVITAMIN TAB PO SCH (08:37)
[2019-01-23] MEDS: PANTOprazole 40 MG TAB PO SCH ×2 (08:37→20:49)
[2019-01-23] MEDS: INSULIN GLARGINE SOLOSTAR 100 UNITS/ML 3 ML PEN SC SCH ×2 (08:38→20:49)
[2019-01-23] MEDS: INSULIN ASPART 100 UNITS/ML 3 ML PEN SC SCH ×4 (08:40→21:04)
[2019-01-23] MEDS: OXYCODONE/ACETAMINOPHEN 5mg/325mg TAB PO PRN ×4 (08:47→21:29)
[2019-01-23] MEDS: CEFTAROLINE FOSAMIL ACETATE 600 MG in SODIUM CHLORIDE 0.9% 250 ML IV SCH ×2 (11:33→22:32)
--- NOTE | 2019-01-23 13:25 | Hospitalist Progress Note ---
Date of Service January 23, 2019 Assessment & Plan (1) Chronic ulcer of lower extremity: Awaiting Placement (2) Bilateral cellulitis of lower leg: Multiple admission for recurrent wound infections. Recently completed a 28-day course of IV ceftaroline for E. coli infection ID on board recommended to continue IV ceftaroline 600 mg every 12 hours Wound cx grew Ecoli and MRSA Wound care on board Continue daily wound care Continue pain control with percocet prn Case discussed with ID recommended to continue IV ceftaroline for 4 weeks Case management aware to arrange for placement for abx infusion Monitor CBC and BMP weekly Waiting for placement (3) Type 2 diabetes mellitus: Last A1c 12/05/2018 6.8 Hold outpatient metformin Lantus/NovoLog per protocol Monitor BS (4) COPD (chronic obstructive pulmonary disease): Continue DuoNeb and incentive spirometry Continue Advair Stable (5) Chronic deep vein thrombosis (DVT): Continue warfarin (6) Hypercoagulable state: Secondary to heterozygous MTHFR mutation Continue warfarin with INR 2.2 Continue coumadin Monitor PT/INR (7) GERD (gastroesophageal reflux disease): Continue PPI (8) Tobacco abuse: Nicotine patch ordered Counseling on smoking cessation (9) Chronic narcotic use: Continue oxycodone as needed (10) Cirrhosis: Liver cirrhosis secondary to history of alcohol abuse No recent alcohol use Continue Lasix and Aldactone for volume management of ascites Stable (11) DVT prophylaxis: On Coumadin per INR Disposition Waiting for placement Will need 4 weeks of IV abx ROS-No Headache, No Visual Changes, No Nausea, No Vomiting, No Fever, No Chills, No Neck Pain or Stiffness, No Chest Pain, No Palpitations, No SOB, No VARMA, No Cough, No Sputum, No Wheezing, No Abdominal Pain, No Diarrhea, No Hematemesis, No Hemoptysis, No Unexpected Weight Loss, No Flank pain, No Melena, No Hematochezia, No Frequency, No Urgency, No Burning, No Hematuria, No Rashes, No Diaphoresis. Appetite is Normal Physical Exam Gen-AAO x 3, NAD, Afebrile, Obese Head-NCAT, EOMI, PERRLA, Anicteric Sclera, No Posterior Pharyngeal Erythema Neck-Supple, No JVD, No Thyromegaly, No Masses, No LAD, No Bruits Lungs-Clear to Auscultation Bilaterally, No Rales, No Rhonchi, No Wheezing, No Crepitus Chest-No S4, +S1, +S2, No S3, No Murmurs, No Rubs, No Gallops, No Ectopy Abdomen-Soft, Bowel Sounds Present, Non Tender, Non Distended, No Hepatomegaly, No Splenomegaly, No Palpable Masses, No Rebound, No Rigidity, No Guarding Musculoskeletal-Full Range of Motion Bilaterally, No CVAT Extremities-+Excoriated Craters at different stages of healing R >>>worse than L Nuero-Cranial Nerves II-XII grossly intact, Motor WNL, DTRs WNL, Strength WNL, Non Focal Psych-Normal Mood Results & Data Vital Signs (Past 12 Hours) Vital Signs Temp Pulse Resp BP Pulse Ox 01/23/19 07:56 36.6 C 70 18 113/77 94 Current Diagnoses Other primary thrombophilia (01/15/19) Type 2 diabetes mellitus without complications (01/15/19) Opioid use, unspecified, uncomplicated (01/15/19) Chronic embolism and thrombosis of unspecified deep veins of right lower extremity (01/15/19) Chronic obstructive pulmonary disease, unspecified (01/15/19) Gastro-esophageal reflux disease without esophagitis (01/15/19) Unspecified cirrhosis of liver (01/15/19) Cellulitis of right lower limb (01/15/19) Cellulitis of left lower limb (01/15/19) Non-pressure chronic ulcer of unspecified part of unspecified lower leg with unspecified severity (01/15/19) Tobacco use (01/15/19) Personal history of Methicillin resistant Staphylococcus aureus infection (01/15/19) Allergies peas Allergy (Severe, Verified 12/18/18 11:26) Swelling of Lip/Tongue/Throat Bactrim Allergy (Intermediate, Verified 04/12/18 15:58) hives sulfamethoxazole Allergy (Intermediate, Verified 12/18/18 11:26) hives trimethoprim Allergy (Intermediate, Verified 12/18/18 11:26) hives tuna oil Allergy (Unknown, Verified 12/18/18 11:26) . Height/Weight/Isolation Height 5 ft 9 in Weight 115 kg Isolation Type Contact Precautions (1) Chronic ulcer of lower extremity Laterality: unspecified laterality Non-pressure ulcer stage: unspecified non- pressure ulcer stage Qualified Code(s): L97.909 - Non-pressure chronic ulcer of unspecified part of unspecified lower leg with unspecified severity (2) Type 2 diabetes mellitus Diabetes mellitus alf insulin use: without terminal clerk use (3) COPD (chronic obstructive pulmonary disease) COPD type: unspecified COPD Qualified Code(s): J44.9 - Chronic obstructive pulmonary disease, unspecified (4) Chronic deep vein thrombosis (DVT) Affected thrombotic vein of extremity: unspecified vein of extremity DVT location: lower extremity Laterality: right Qualified Code(s): I82.501 - Chronic embolism and thrombosis of unspecified deep veins of right lower extremity (5) GERD (gastroesophageal reflux disease) Esophagitis presence: esophagitis presence not specified Qualified Code(s): K21.9 - Gastro-esophageal reflux disease without esophagitis
--- NOTE | 2019-01-23 15:30 | Infectious Disease Progress Nt ---
Date of Service January 23, 2019 Assessment & Plan (1) Bilateral cellulitis of lower leg: Recurrent lower extremity cellulitis, with cultures again growing MRSA and E. coli. Continue on IV ceftaroline. Will follow. Subjective Patient seen in follow-up for bilateral lower extremity cellulitis. Tolerating ceftaroline without apparent difficulty. Remains afebrile. Pain controlled. No other new complaints. Review of Systems Review of Systems: All systems reviewed & are unremarkable except as noted in HPI & below Physical Exam Constitutional: WD/WN, vitals as above comfortable; no acute distress Eyes: PERRL, conjunctivae normal, anicteric sclerae ENMT: external ear and nose normal, oropharynx normal Neck: trachea midline, no thyromegaly neck nontender Respiratory: normal respiratory effort, lungs clear to auscultation normal percussion; does not use accessory muscles Cardiovascular: Rate/Rhythm: regular rate and regular rhythm Heart Sounds: normal S1 and normal S2; no gallop, no murmur and no cardiac rub Vessels: nor mal peripheral pulses; no JVD Gastrointestinal (Abdomen): normal bowel sounds, soft, nontender, no hepatosplenomegaly Musculoskeletal: no cyanosis or clubbing, extremities motor strength 5/5 Spine: thoracic spine normal to inspection and lumbar spine normal to inspection; no cervical spinal tenderness Skin: normal turgor, + wound (Superficial ulcerations both legs) and + erythema (Both legs); no rashes Neurologic: patellar DTR's 2+ bilat, sensation intact no focal motor deficits Psychiatric: A+Ox3, euthymic affect Orientation: cooperative Lymphatic: no cervical or axillary lymphadenopathy no inguinal lymphadenopathy Results & Data Vital Signs (Past 12 Hours) Vital Signs Temp Pulse Resp BP Pulse Ox 01/23/19 15:07 36.7 C 76 18 133/83 95 01/23/19 07:56 36.6 C 70 18 113/77 94 Laboratory Results Laboratory Results - last 48 hr 01/21/19 01/21/19 01/22/19 16:38 20:22 06:08 PT 22.0 H INR 2.3 H POC Glucose 150 H 255 H 01/22/19 01/22/19 01/22/19 08:24 12:05 16:56 PT INR POC Glucose 159 H 195 H 190 H 01/22/19 01/23/19 01/23/19 20:06 07:38 11:53 PT INR POC Glucose 274 H 159 H 166 H Diagnostic Findings Microbiology 01/15/19 Unknown Leg Gram Stain - Final 01/15/19 Unknown Leg Wound Culture - Final Escherichia coli Staph aureus MRSA
[2019-01-23] MEDS: WARFARIN SOD 10 MG TAB PO SCH (15:37)
[2019-01-23] MEDS: MIRTAZAPINE TAB 15 MG TAB PO SCH (20:49)
[2019-01-23] MEDS: EUCERIN CR 120 GM JAR EXT PRN (21:10)
[2019-01-24] MEDS: OXYCODONE/ACETAMINOPHEN 5mg/325mg TAB PO PRN ×2 (06:36→11:51)
[2019-01-24] MEDS: FUROSEMIDE 40 MG TAB PO SCH (09:37)
[2019-01-24] MEDS: SPIRONOLACTONE 100 MG TAB PO SCH (09:37)
[2019-01-24] MEDS: DOCUSATE SODIUM 100 MG CAP PO SCH (09:37)
[2019-01-24] MEDS: MULTIVITAMIN TAB PO SCH (09:37)
[2019-01-24] MEDS: PANTOprazole 40 MG TAB PO SCH (09:37)
[2019-01-24] MEDS: FOLIC ACID 1 MG TAB PO SCH (09:37)
[2019-01-24] MEDS: SACCHAROMYCES BOULARDII 250 MG CAP PO SCH (09:37)
[2019-01-24] MEDS: GABAPENTIN 300 MG CAP PO SCH ×2 (09:37→13:12)
[2019-01-24] MEDS: IPRATROPIUM BROMIDE/ALBUTEROL respimat INH INH SCH ×2 (09:38→13:12)
[2019-01-24] MEDS: NICOTINE 21 MG/24 HR TDSY TD SCH (09:38)
[2019-01-24] MEDS: INSULIN GLARGINE SOLOSTAR 100 UNITS/ML 3 ML PEN SC SCH (09:38)
[2019-01-24] MEDS: FLUTICASONE/SALMETEROL (ADVAIR) 500/50 INH 14 PUFF INH SCH (09:38)
[2019-01-24] MEDS: INSULIN ASPART 100 UNITS/ML 3 ML PEN SC SCH ×2 (09:41→13:14)
--- NOTE | 2019-01-24 10:42 | Infectious Disease Progress Nt ---
Date of Service January 24, 2019 Assessment & Plan (1) Bilateral cellulitis of lower leg: Recurrent lower extremity cellulitis, with cultures again growing MRSA and E. coli. Patient responding well to IV ceftaroline, will likely need more prolonged therapy, and only other alternatives would be oral Zyvox for which he would need to be taken off of Remeron, or possibly the use of IV dalbavancin as an outpatient. Will discuss with all involved. Subjective Patient seen in follow-up for bilateral lower extremity cellulitis. Tolerating ceftaroline without apparent difficulty. Remains afebrile. Pain controlled. No other new complaints. Review of Systems Review of Systems: All systems reviewed & are unremarkable except as noted in HPI & below Physical Exam Constitutional: WD/WN, vitals as above comfortable; no acute distress Eyes: PERRL, conjunctivae normal, anicteric sclerae ENMT: external ear and nose normal, oropharynx normal Neck: trachea midline, no thyromegaly neck nontender Respiratory: normal respiratory effort, lungs clear to auscultation normal percussion; no respiratory distress Cardiovascular: Rate/Rhythm: regular rate and regular rhythm Heart Sounds: normal S1 and normal S2; no gallop, no murmur and no cardiac rub Gastrointestinal (Abdomen): normal bowel sounds, soft, nontender, no hepatosplenomegaly Musculoskeletal: no cyanosis or clubbing, extremities motor strength 5/5 No spinal tenderness, no joint swelling or erythema Skin: + lesion, + ulcer (Superficial leg ulcerations improving) and + erythema (Lower extremity erythema improving); no rashes Neurologic: moves all extremities and awake; no focal motor deficits Motor/Sensory: no sensory deficit Psychiatric: A+Ox3, euthymic affect Lymphatic: no cervical or axillary lymphadenopathy no inguinal lymphadenopathy Results & Data Vital Signs (Past 12 Hours) Vital Signs Temp Pulse Resp BP Pulse Ox 01/24/19 08:03 36.5 C 63 18 112/73 94 01/23/19 23:00 36.6 C 74 18 127/82 95 Laboratory Results Laboratory Results - last 48 hr 01/22/19 01/22/19 01/22/19 12:05 16:56 20:06 POC Glucose 195 H 190 H 274 H 01/23/19 01/23/19 01/23/19 07:38 11:53 16:54 POC Glucose 159 H 166 H 171 H 01/23/19 01/24/19 20:13 08:04 POC Glucose 204 H 152 H Diagnostic Findings Microbiology 01/15/19 Unknown Leg Gram Stain - Final 01/15/19 Unknown Leg Wound Culture - Final Escherichia coli Staph aureus MRSA
--- NOTE | 2019-01-24 11:10 | Hospitalist Progress Note ---
Date of Service January 24, 2019 Assessment & Plan (1) Chronic ulcer of lower extremity: Awaiting Placement (2) Bilateral cellulitis of lower leg: Multiple admission for recurrent wound infections. Recently completed a 28-day course of IV ceftaroline for E. coli infection ID on board recommended to continue IV ceftaroline 600 mg every 12 hours Wound cx grew Ecoli and MRSA Wound care on board Continue daily wound care Continue pain control with percocet prn Case discussed with ID recommended DC on PO Zyvox until 02/13 Monitor CBC and BMP weekly Possible home today on p.o. Zyvox (3) Type 2 diabetes mellitus: Last A1c 12/05/2018 6.8 Resume outpatient blood sugar regimen on discharge (4) COPD (chronic obstructive pulmonary disease): Continue Advair Stable (5) Chronic deep vein thrombosis (DVT): Continue warfarin (6) Hypercoagulable state: Secondary to heterozygous MTHFR mutation Warfarin as per INR (7) GERD (gastroesophageal reflux disease): Continue PPI (8) Tobacco abuse: Counseling on smoking cessation (9) Chronic narcotic use: Continue oxycodone as needed (10) Cirrhosis: Liver cirrhosis secondary to history of alcohol abuse No recent alcohol use Continue Lasix and Aldactone for volume management of ascites (11) DVT prophylaxis: On Coumadin per INR Disposition Possible home today on p.o. Zyvox Will need 4 weeks of p.o. Zyvox, 600 mg every 12 stop on 02/13 ROS-No Headache, No Visual Changes, No Nausea, No Vomiting, No Fever, No Chills, No Neck Pain or Stiffness, No Chest Pain, No Palpitations, No SOB, No VARMA, No Cough, No Sputum, No Wheezing, No Abdominal Pain, No Diarrhea, No Hematemesis, No Hemoptysis, No Unexpected Weight Loss, No Flank pain, No Melena, No Hematochezia, No Frequency, No Urgency, No Burning, No Hematuria, No Rashes, No Diaphoresis. Appetite is Normal Physical Exam Gen-AAO x 3, NAD, Afebrile, Obese Head-NCAT, EOMI, PERRLA, Anicteric Sclera, No Posterior Pharyngeal Erythema Neck-Supple, No JVD, No Thyromegaly, No Masses, No LAD, No Bruits Lungs-Clear to Auscultation Bilaterally, No Rales, No Rhonchi, No Wheezing, No Crepitus Chest-No S4, +S1, +S2, No S3, No Murmurs, No Rubs, No Gallops, No Ectopy Abdomen-Soft, Bowel Sounds Present, Non Tender, Non Distended, No Hepatomegaly, No Splenomegaly, No Palpable Masses, No Rebound, No Rigidity, No Guarding Musculoskeletal-Full Range of Motion Bilaterally, No CVAT Extremities-+Excoriated Craters at different stages of healing R >>>worse than L Nuero-Cranial Nerves II-XII grossly intact, Motor WNL, DTRs WNL, Strength WNL, Non Focal Psych-Normal Mood Results & Data Vital Signs (Past 12 Hours) Vital Signs Temp Pulse Resp BP Pulse Ox 01/24/19 08:03 36.5 C 63 18 112/73 94 (1) Chronic ulcer of lower extremity Laterality: unspecified laterality Non-pressure ulcer stage: unspecified non- pressure ulcer stage Qualified Code(s): L97.909 - Non-pressure chronic ulcer of unspecified part of unspecified lower leg with unspecified severity (2) Type 2 diabetes mellitus Diabetes mellitus group home insulin use: without torch cutter use (3) COPD (chronic obstructive pulmonary disease) COPD type: unspecified COPD Qualified Code(s): J44.9 - Chronic obstructive pulmonary disease, unspecified (4) Chronic deep vein thrombosis (DVT) Affected thrombotic vein of extremity: unspecified vein of extremity DVT location: lower extremity Laterality: right Qualified Code(s): I82.501 - Chronic embolism and thrombosis of unspecified deep veins of right lower extremity (5) GERD (gastroesophageal reflux disease) Esophagitis presence: esophagitis presence not specified Qualified Code(s): K21.9 - Gastro-esophageal reflux disease without esophagitis
[2019-01-24] MEDS: CEFTAROLINE FOSAMIL ACETATE 600 MG in SODIUM CHLORIDE 0.9% 250 ML IV SCH (11:51)
--- NOTE | 2019-01-24 11:53 | Discharge Summary ---
Date of Service January 24, 2019 Admission HPI Per Admitting Provider This is a 43-year-old male who has a significant past medical history significant for heterozygous MTHFR mutation, hemosiderosis, type 2 diabetes, COPD,chronic deep vein thrombosis of femoral vein, venous insufficiency, alcoholic liver cirrhosis with ascites, venous stasis ulcers of both the legs, thrombocytopenia, depression, tobacco use disorder who presents with re-opening of b/l lower extremity wounds with foul smelling drainage x 2 days. The patient has recurrent infection of the lower extremities from venous stasis ulcers. Unfortunately has had multiple recurrent hospitalizations in the past year but admits to difficulty with ulceration for the past 2 years. "I am sick of this." Patient's last hospitalization was 12/04 to 12/09 secondary to recurrent lower extremity wound infection/cellulitis. He had a midline in place and was discharged with 28-day course of IV antibiotics ceftaroline 600 mg every 12 hours. He completed antibiotics 2 weeks ago and had midline removed. Symptoms improved significantly and he even completed his wound care. Up until 2 days ago his bilateral lower extremities had no open ulcerations and had been healing well. On Monday night he noticed after shower his scab fell off on the right and left leg. He ended up getting persistent lower extremity pain as well as foul-smelling purulent drainage from wounds. Given prior history and recurrent hospitalizations he called wound clinic nurse in which Dr. Perez recommended patient be sent to ED for admission. Patient had been taking doxycycline 100 mg daily and Ceftin at at bedtime in hopes for chronic suppression therapy. He has overall felt feverish, nauseated, decreased appetite and bilateral lower extremity pain. He has been requiring to take his as needed oxycodone more frequently. He also complains of being more wheezy this morning but has not taking albuterol and is requesting nebulizer treatment. He denies chills, sweats, lightheadedness, dizziness, chest pain, shortness breath, cough, hemoptysis, emesis, abdominal pain, change in bowel or urinary habits. He has noticed slight increase in swelling of bilateral lower extremities but states he has been wearing his compression stockings faithfully. He overall feels on the dry side secondary to decreased appetite and decreased p.o. intake. Admission Exam Per Admitting Provider Gen: WD/WN, Morbidly obese M, NAD, sitting up in bed, pleasant, conversing easily, Head: Normocephalic, Atraumatic Eyes: Sclera normal, no conjunctival injection, PERRLA, EOMI ENT: Gross hearing intact, normal pharynx, mucous membranes moist Neck: supple, no adenopathy, No JVD, no bruit, no thyromegaly, Resp: Clear to auscultation b/l with diffuse expiratory wheeze and prolonged exp phase, no rales, rhonchi. Normal insp/exp effort, no accessory muscle use CV: Regular rate, regular rhythm, no murmur, rub, gallop, or ectopy Abd: +BS x 4, distended secondary to obesity, firm, nontender, Musculoskeletal: moves extremities active rom x 4, strength intact, good anime designer strength Extremities: Severe b/l LE nodular lymphedema with venous stasis changes, multiple open venous stasis ulcerations right pretibial and medial calf along with L mid pre-tibal region with foul smelling drainage. Skin: warm, moist, mild turgor, cap refill < 2sec Neuro: Alert and oriented x 3, speech normal, good mood/affect, cran nerve 2-12 intact grossly :deferred Principal Diagnosis Recurrent Cellulitis Cirrhosis MSSA COPD GERD DMII Hypercoag state Discharge Exam See below Discharge Data Allergies Allergy/AdvReac Type Severity Reaction Status Date / Time peas Allergy Severe Swelling Verified 12/18/18 11:26 of Lip/Tongue/Throat Bactrim Allergy Intermediate hives Verified 04/12/18 15:58 sulfamethoxazole Allergy Intermediate hives Verified 12/18/18 11:26 trimethoprim Allergy Intermediate hives Verified 12/18/18 11:26 tuna oil Allergy Unknown . Verified 12/18/18 11:26 Consultations 01/15/19 09:17 ED Decision to Admit Stat 01/15/19 09:57 Consult Infectious Diseases Routine 01/15/19 11:29 Consult Case Management - Discharge Planning Routine 01/24/19 11:04 Consult Case Management - Discharge Planning Routine Current Diagnoses Other primary thrombophilia (01/15/19) Type 2 diabetes mellitus without complications (01/15/19) Opioid use, unspecified, uncomplicated (01/15/19) Chronic embolism and thrombosis of unspecified deep veins of right lower extremity (01/15/19) Chronic obstructive pulmonary disease, unspecified (01/15/19) Gastro-esophageal reflux disease without esophagitis (01/15/19) Unspecified cirrhosis of liver (01/15/19) Cellulitis of right lower limb (01/15/19) Cellulitis of left lower limb (01/15/19) Non-pressure chronic ulcer of unspecified part of unspecified lower leg with unspecified severity (01/15/19) Tobacco use (01/15/19) Personal history of Methicillin resistant Staphylococcus aureus infection (01/15/19) Allergies peas Allergy (Severe, Verified 12/18/18 11:26) Swelling of Lip/Tongue/Throat Bactrim Allergy (Intermediate, Verified 04/12/18 15:58) hives sulfamethoxazole Allergy (Intermediate, Verified 12/18/18 11:26) hives trimethoprim Allergy (Intermediate, Verified 12/18/18 11:26) hives tuna oil Allergy (Unknown, Verified 12/18/18 11:26) . Height/Weight/Isolation Height 5 ft 9 in Weight 115 kg Isolation Type Contact Precautions Hospital Course (1) Chronic ulcer of lower extremity: Awaiting Placement (2) Bilateral cellulitis of lower leg: Multiple admission for recurrent wound infections. Recently completed a 28-day course of IV ceftaroline for E. coli infection ID on board recommended to continue IV ceftaroline 600 mg every 12 hours Wound cx grew Ecoli and MRSA Wound care on board Continue daily wound care Continue pain control with percocet prn Case discussed with ID recommended DC on PO Zyvox until 02/13 Monitor CBC and BMP weekly Possible home today on p.o. Zyvox (3) Type 2 diabetes mellitus: Last A1c 12/05/2018 6.8 Resume outpatient blood sugar regimen on discharge (4) COPD (chronic obstructive pulmonary disease): Continue Advair Stable (5) Chronic deep vein thrombosis (DVT): Continue warfarin (6) Hypercoagulable state: Secondary to heterozygous MTHFR mutation Warfarin as per INR (7) GERD (gastroesophageal reflux disease): Continue PPI (8) Tobacco abuse: Counseling on smoking cessation (9) Chronic narcotic use: Continue oxycodone as needed (10) Cirrhosis: Liver cirrhosis secondary to history of alcohol abuse No recent alcohol use Continue Lasix and Aldactone for volume management of ascites (11) DVT prophylaxis: On Coumadin per INR Disposition DC home today with home health p.o. Zyvox, 600 mg every 12 stop on 02/13 Follow-up with Dr. Lin at 2:45 PM on 01/28 Follow-up with Dr. Shepherd in [place] they will call you to schedule appoi ntment Follow-up with Dr. Perez in 4 weeks ROS-No Headache, No Visual Changes, No Nausea, No Vomiting, No Fever, No Chills, No Neck Pain or Stiffness, No Chest Pain, No Palpitations, No SOB, No VARMA, No Cough, No Sputum, No Wheezing, No Abdominal Pain, No Diarrhea, No Hematemesis, No Hemoptysis, No Unexpected Weight Loss, No Flank pain, No Melena, No Hematochezia, No Frequency, No Urgency, No Burning, No Hematuria, No Rashes, No Diaphoresis. Appetite is Normal Physical Exam Gen-AAO x 3, NAD, Afebrile, Obese Head-NCAT, EOMI, PERRLA, Anicteric Sclera, No Posterior Pharyngeal Erythema Neck-Supple, No JVD, No Thyromegaly, No Masses, No LAD, No Bruits Lungs-Clear to Auscultation Bilaterally, No Rales, No Rhonchi, No Wheezing, No Crepitus Chest-No S4, +S1, +S2, No S3, No Murmurs, No Rubs, No Gallops, No Ectopy Abdomen-Soft, Bowel Sounds Present, Non Tender, Non Distended, No Hepatomegaly, No Splenomegaly, No Palpable Masses, No Rebound, No Rigidity, No Guarding Musculoskeletal-Full Range of Motion Bilaterally, No CVAT Extremities-+Excoriated Craters at different stages of healing R >>>worse than L Nuero-Cranial Nerves II-XII grossly intact, Motor WNL, DTRs WNL, Strength WNL, Non Focal Psych-Normal Mood Total Time Total Time Spent Total Time Spent (In Minutes): 1 hour Total Time Includes: Examination of the Patient, Discharge Planning, Medication Reconciliation and Communication With Other Providers Discharge Plan Discharge Items Patient Disposition: Home - Home Health Services Reason For Visit: RECURRENT BILATERAL LOWER EXT WOUND INFECTION Discharge Diagnosis: Recurrent Cellulitis Cirrhosis MSSA COPD GERD DMII Hypercoag state Condition: Good Discharge Goals: Decrease discomfort, Improve disease control and Improve function Activity: Resume your previous activity Lifting: Gradually increase as tolerated Bathing: No limitations Bathing Comment: Shower, dry legs well Sexual Activity: When tolerated Exercise/Sports: None Driving/Machine Use: No limitations Weightbearing: Left weightbearing and Right weightbearing Non-emergency contact: Primary Care Provider and Surgeon Call non-emergency contact if: you have any medication questions and your symptoms worsen Follow-up/Referrals: Selina shepherd [Other] (Dr. Shepherd's office will call you for follow-up) Todd Perez MD [Physician] - Kendra Acevedo DO [Physician] - (4 weeks) Gareth Lin MD [Primary Care Provider] - 01/28/19 2:45 pm Diet: Carb Consistent or DM2 Addtl Provider Instructions: Routine follow-up care, ordered BMP and CMP weekly, and a CRP weekly Prescriptions: New linezolid [Zyvox] 600 mg tablet 600 mg PO Q12H 21 Days Qty: 42 RF: 0 Continued multivitamin Tablet 1 tab PO QAM RF: 0 docusate sodium [Colace] 100 mg Capsule 100 mg PO BID RF: 0 omeprazole 20 mg Capsule,Delayed Release(Dr/Ec) 20 mg PO BID RF: 0 folic acid 1 mg Tablet 1 mg PO QAM RF: 0 albuterol sulfate [Ventolin HFA] 90 mcg/actuation Hfa Aerosol Inhaler 1 puff INHALATION Q4H PRN (Reason: Shortness Of Breath) RF: 0 gabapentin 300 mg Capsule 300 mg PO QID RF: 0 hydroxyzine HCl 25 mg tablet 50 mg PO HS PRN (Reason: Sleep) RF: 0 metformin 500 mg Tablet 500 mg PO BIDM RF: 0 warfarin 5 mg Tablet 15 mg PO TUTHSA RF: 0 furosemide [Lasix] 20 mg Tablet 40 mg PO QAM RF: 0 spironolactone [Aldactone] 50 mg Tablet 100 mg PO QAM RF: 0 warfarin 5 mg Tablet 10 mg PO SUMOWEFR RF: 0 fluticasone propion-salmeterol [Advair Diskus] 500-50 mcg/dose Blister With Device 1 inh INHALATION BID RF: 0 oxycodone-acetaminophen [Percocet] 5-325 mg Tablet 1 tab PO Q6H PRN (Reason: pain) RF: 0 Discontinued mirtazapine 15 mg Tablet 15 mg PO HS Qty: 30 RF: 0 Stand-Alone Forms: [facility], Opioid Pain Management Discharge Orders: Discharge Order (Routine); Ordered 01/24/19 Ordered By: Augustin Mcdowell Admission Data Admit Date/Time: 01/15/19 09:57 Attending Provider: Augustin Mcdowell Admit Provider: Dallas Wilkins Primary Care Provider: Gareth Lin Other Providers: Kendra Acevedo ; Dallas Wilkins Service: Medical
[2019-01-24] MEDS: EUCERIN CR 120 GM JAR EXT PRN (13:18)
[2019-01-24] MEDS: WARFARIN SOD 7.5 MG TAB PO SCH (15:42)
== END 2019-01-24 16:30 | disposition home health service (06) | DRG 603 ==
LOC: ED 08:21 → SUATTDRO 09:57 → 4E 09:57

== ENCOUNTER 2019-01-28 14:13 | Inpatient (IN) ==
[2019-01-28 16:31] LABS: Basophils # (auto) 0.04 K/uL (0-0.2); Basophils % (auto) 0.8 %; Eosinophils # (auto) 0.05 K/uL (0-0.5); Eosinophils % (auto) 0.9 %; Hematocrit (blood only) 39.8 % (42-52); Hemoglobin 13.6 g/dL (14.0-18.0); Immature Granulocytes # (auto) 0.01 K/uL (0.00-0.02); Immature Granulocytes % (auto) 0.2 %; Lymphocytes # (auto) 0.81 K/uL (1.2-3.4); Lymphocytes % (auto) 15.3 %; Mean Corpuscular Hgb Conc 34.2 g/dL (32-36); Mean Corpuscular Volume 84.1 fL (80-100); Mean Platelet Volume 9.3 fL (7.4-10.4); Monocytes # (auto) 0.29 K/uL (0.11-0.59); Monocytes % (auto) 5.5 %; Neutrophils # (auto) 4.08 K/uL (1.4-6.5); Neutrophils % (auto) 77.3 %; Platelet Count 200 K/uL (130-400); RDW Coefficient of Variation 15.2 % (11.5-14.5); Red Blood Count 4.73 M/uL (4.7-6.1); White Blood Count 5.28 K/uL (4.8-10.8)
[2019-01-28 16:53] LABS: Albumin Level 3.6 gm/dl (3.4-5.0); BUN Creatinine Ratio 7.3 (10-20); Calcium 9.5 mg/dl (8.5-10.1); Creatinine Clr Calc Pharmacy 124.4 ml/min; Est GFR (African American) 112.4; Potassium 3.6 mmol/L (3.5-5.1)
[2019-01-28 16:56] LABS: Albumin Globulin Ratio 0.7 (0.9-2); Bilirubin,Total 0.8 mg/dl (0.2-1); Globulin 5.5 gm/dl (2.5-4.0); Total Protein 9.1 gm/dl (6.4-8.2)
[2019-01-28] MEDS ORDERED: MoRPHine SULFATE 4 MG/ML 1 ML CARP\\VIAL IV STA (17:00)
[2019-01-28] MEDS ORDERED: CEFTAROLINE FOSAMIL ACETATE 600 MG in SODIUM CHLORIDE 0.9% 250 ML IV STA (17:00)
--- NOTE | 2019-01-28 17:40 | History & Physical Report ---
Date of Service January 28, 2019 Assessment & Plan (1) Chronic venous stasis dermatitis of both lower extremities: 43-year-old male who has a past medical history significant for heterozygous MTHFR mutation, hemosiderosis, type 2 diabetes, COPD,chronic deep vein thrombosis of femoral vein, venous insufficiency, alcoholic liver cirrhosis with ascites, venous stasis ulcers of both the legs, thrombocytopenia, depression, tobacco use disorder who presents with re-opening of b/l lower extremity wounds with foul smelling drainage. He was DCd on 01/24 on PO Zyvox. He returns c/o of increasing pain in the RLE and worsening foul smelling drainage. He also noted that his appetite was horrible on Zyvox. The patient has recurrent infection of the lower extremities from venous stasis ulcers. He has had multiple recurrent hospitalizations in the past year. Patient's last hospitalization was 12/04 to 12/09 then 01/15-01/24 secondary to recurrent lower extremity wound infection/cellulitis. He had a midline in place and was discharged with 28-day course of IV antibiotics ceftaroline 600 mg every 12 hours. He completed antibiotics 2 weeks ago and had midline removed. Symptoms improved significantly and he even completed his wound care. He came back 01/15 and was treated c Ceftaroline and transitioned to PO Zyvox, which has failed prompting his return. (1) Acute Chronic ulcer of lower extremity: Ceftaroline 600 q12, Wound eval and treat, ID Eval (2) Bilateral cellulitis of lower leg: Multiple admission for recurrent wound infections. Recently completed a 28-day course of IV ceftaroline for E. coli infection Wound cx grew Ecoli and MRSA Continue pain control with percocet prn Monitor CBC and BMP weekly (3) Type 2 diabetes mellitus: Last A1c 12/05/2018 6.8 Lantus and SSI (4) COPD (chronic obstructive pulmonary disease): Continue Advair (5) Chronic deep vein thrombosis (DVT): Continue warfarin (6) Hypercoagulable state: Secondary to heterozygous MTHFR mutation Warfarin as per INR (7) GERD (gastroesophageal reflux disease): Continue PPI (8) Tobacco abuse: Counseling on smoking cessation (9) Chronic narcotic use: Continue oxycodone as needed (10) Cirrhosis: Liver cirrhosis secondary to history of alcohol abuse No recent alcohol use Continue Lasix and Aldactone for volume management of ascites (11) DVT prophylaxis: On Coumadin per INR ROS-No Headache, No Visual Changes, No Nausea, No Vomiting, No Fever, No Chills, No Neck Pain or Stiffness, No Chest Pain, No Palpitations, No SOB, No VARMA, No Cough, No Sputum, No Wheezing, No Abdominal Pain, No Diarrhea, No Hematemesis, N o Hemoptysis, No Unexpected Weight Loss, No Flank pain, No Melena, No Hematochezia, No Frequency, No Urgency, No Burning, No Hematuria, No Rashes, No Diaphoresis. Appetite is Normal Physical Exam Gen-AAO x 3, NAD, Afebrile, Obese Head-NCAT, EOMI, PERRLA, Anicteric Sclera, No Posterior Pharyngeal Erythema Neck-Supple, No JVD, No Thyromegaly, No Masses, No LAD, No Bruits Lungs-Clear to Auscultation Bilaterally, No Rales, No Rhonchi, No Wheezing, No Crepitus Chest-No S4, +S1, +S2, No S3, No Murmurs, No Rubs, No Gallops, No Ectopy Abdomen-Soft, Bowel Sounds Present, Non Tender, Non Distended, No Hepatomegaly, No Splenomegaly, No Palpable Masses, No Rebound, No Rigidity, No Guarding Musculoskeletal-Full Range of Motion Bilaterally, No CVAT Extremities-+Excoriated Craters at different stages of healing R >>>worse than L Nuero-Cranial Nerves II-XII grossly intact, Motor WNL, DTRs WNL, Strength WNL, Non Focal Psych-Normal Mood History of Present Illness 43-year-old male who has a past medical history significant for heterozygous MTHFR mutation, hemosiderosis, type 2 diabetes, COPD,chronic deep vein thrombosis of femoral vein, venous insufficiency, alcoholic liver cirrhosis with ascites, venous stasis ulcers of both the legs, thrombocytopenia, depression, tobacco use disorder who presents with re-opening of b/l lower extremity wounds with foul smelling drainage. He was DCd on 01/24 on PO Zyvox. He returns c/o of increasing pain in the RLE and worsening foul smelling drainage. He also noted that his appetite was horrible on Zyvox. The patient has recurrent infection of the lower extremities from venous stasis ulcers. He has had multiple recurrent hospitalizations in the past year. Patient's last hospitalization was 4/9 to 12/09 then 01/15-01/24 secondary to recurrent lower extremity wound infection/cellulitis. He had a midline in place and was discharged with 28-day course of IV antibiotics ceftaroline 600 mg every 12 hours. He completed antibiotics 2 weeks ago and had midline removed. Symptoms improved significantly and he even completed his wound care. He came back 01/15 and was treated c Ceftaroline and transitioned to PO Zyvox, which has failed prompting his return. Primary Care Provider: Gareth Lin MD Allergies Allergy/AdvReac Type Severity Reaction Status Date / Time peas Allergy Severe Swelling Verified 01/28/19 15:54 of Lip/Tongue/Throat Bactrim Allergy Intermediate hives Verified 04/12/18 15:58 sulfamethoxazole Allergy Intermediate hives Verified 01/28/19 15:54 trimethoprim Allergy Intermediate hives Verified 01/28/19 15:54 tuna oil Allergy Unknown . Verified 01/28/19 15:54 Home Medications Home Medications Medication Instructions Recorded Confirmed Type albuterol sulfate [Ventolin HFA] 1 puff INHALATION Q4H PRN 05/09/18 01/28/19 History docusate sodium [Colace] 200 mg PO BID 05/09/18 01/28/19 History folic acid 1 mg PO QAM 05/09/18 01/28/19 History omeprazole 20 mg PO BID 05/09/18 01/28/19 History gabapentin 300 mg PO QID 08/16/18 01/28/19 History furosemide [Lasix] 40 mg PO QAM 08/20/18 01/28/19 History metformin 500 mg PO BIDM 08/20/18 01/28/19 History spironolactone [Aldactone] 100 mg PO QAM 08/20/18 01/28/19 History warfarin 15 mg PO TUTHSA 08/20/18 01/28/19 History fluticasone propion-salmeterol 1 inh INHALATION BID 09/05/18 01/28/19 History [Advair Diskus] warfarin 10 mg PO SUMOWEFR 09/05/18 01/28/19 History oxycodone-acetaminophen [Percocet] 1 tab PO Q6H PRN 12/18/18 01/28/19 History linezolid [Zyvox] 600 mg PO Q12H Days #42 tab 01/24/19 01/28/19 Rx Past Med/Surg History Social History Preferred Language: [place] Communication Ability: Effective Visual Impairment: No Limitations Hearing Ability: Normal Beliefs That Will Affect Care: None marital status: Single Current Living Situation: Alone Feels Safe at Home: Yes Smoking Status: Current every day smoker Tobacco Type: cigarettes Cigarettes Per Day: 1/2 ppd Second Hand Exposure: No Hx Alcohol Use: Yes Alcohol type: beer Alcohol Intake Frequency Comment: Pt reports quit drinking end of 07/2018 Hx Substance Use: No Results & Data Vital Signs (Past 12 Hours) Vital Signs Temp Pulse Resp BP Pulse Ox 01/28/19 14:21 36.6 C 107 H 20 143/80 H 97 Allergies peas Allergy (Severe, Verified 01/28/19 15:54) Swelling of Lip/Tongue/Throat Bactrim Allergy (Intermediate, Verified 04/12/18 15:58) hives sulfamethoxazole Allergy (Intermediate, Verified 01/28/19 15:54) hives trimethoprim Allergy (Intermediate, Verified 01/28/19 15:54) hives tuna oil Allergy (Unknown, Verified 01/28/19 15:54) . Height/Weight/Isolation Height 5 ft 9 in Weight 115.5 kg Chemistry 01/28/19 16:16 Sodium 139 Potassium 3.6 Chloride 104 Carbon Dioxide 27 Anion Gap 8.0 BUN 7 Creatinine 0.95 Glucose 136 H Microbiology 01/28/19 16:31 Blood Aerobic Blood Culture - Pending 01/28/19 16:31 Blood Anaerobic Blood Culture - Pending 01/28/19 16:16 Blood Aerobic Blood Culture - Pending 01/28/19 16:16 Blood Anaerobic Blood Culture - Pending Code Status & VTE Plan Code Status Full Code VTE Prophylaxis Plan VTE Prophylaxis will be ordered: Yes Reason for no VTE mechanical prophylaxis: Treatment not tolerated
[2019-01-28] MEDS ORDERED: DEXTROSE 50% 50 ML SYRINGE IV PRN (19:28)
[2019-01-28] MEDS ORDERED: GLUCAGON FOR INJ 1 MG VIAL SQ PRN (19:28)
[2019-01-28] MEDS ORDERED: POLYETHYLENE (MIRALAX) 17 GM PACK PO PRN (19:28)
[2019-01-28] MEDS ORDERED: GLUCOSE 40% GEL 15 GM TUBE PO PRN (19:28)
[2019-01-28] MEDS ORDERED: ONDANSETRON INJ 2 MG/ML 2 ML VIAL IV PRN (19:28)
[2019-01-28] MEDS ORDERED: ALBUTEROL HFA 8 GM INHALER INH PRN (19:28)
[2019-01-28] MEDS ORDERED: ACETAMINOPHEN 325 MG TAB PO PRN (19:28)
[2019-01-28] MEDS ORDERED: GLUCOSE 10 TABS/TUBE PO PRN (19:28)
[2019-01-28] MEDS ORDERED: CARBOHYDRATES FOR HYPOGLYCEMIA PO PRN (19:28)
[2019-01-28] MEDS: OXYCODONE/ACETAMINOPHEN 5mg/325mg TAB PO PRN (19:48)
[2019-01-28] MEDS ORDERED: PHARMACY GLYCEMIC MGMT CONSULT PRN (19:53)
[2019-01-28 20:59] LABS: INR 1.1 (0.9-1.1); Prothrombin Time 11.4 Seconds (9.0-12.0)
[2019-01-28] MEDS: FLUTICASONE/SALMETEROL (ADVAIR) 500/50 INH 14 PUFF INH SCH (21:04)
[2019-01-28] MEDS: DOCUSATE SODIUM 100 MG CAP PO SCH (21:05)
[2019-01-28] MEDS: PANTOprazole 40 MG TAB PO SCH (21:06)
[2019-01-28] MEDS: INSULIN ASPART 100 UNITS/ML 3 ML PEN SC SCH (21:08)
[2019-01-28] MEDS: WARFARIN SOD 10 MG TAB PO SCH (21:51)
[2019-01-28] MEDS: MoRPHine SULFATE 4 MG/ML 1 ML CARP\\VIAL IV PRN (21:52)
--- NOTE | 2019-01-29 00:47 | Emergency Department Note ---
Entered by Dia Sharma acting as a scribe for ED Provider Note CHIEF COMPLAINT: Leg infection HISTORY OF PRESENT ILLNESS: The patient is a 43 year old male who presents to the Emergency Room with complaints of a bilateral leg infection that began 4 days prior to arrival. The patient states that his legs increased in redness 1 day prior to arrival. The patient states that he has diaphoresis, chills, loss of appetite, and nieves estion. The patient states that he has a follow-up with Dr. Lin- Internal Medicine at [facility] in [place] on January 30. Pt denies LOC, headache, fevers, visual changes, neck pain, chest pain, breathing difficulties, nausea, vomiting, abdominal pain, back pain, melena, hematochezia, urinary symptoms, black/bloody stools, diarrhea, numbness, weakness, lymphadenopathy, rash, or other complaints. EMR Reviewed: The patient was in the ED on January 25 and was diagnosed with a MRSA infection and E.coli in bilateral legs. The patient received an IV of Ceftaroline (600 mg) every 12 hours. The patient was followed by wound care and infectious disease and was discharged from the ED with Zyvox 4 days prior to arrival. The patient was scheduled to follow-up with Dr. Perez next month but has not been doing well at home. REVIEW OF SYSTEMS: See HPI for pertinent positives and negatives. A total of ten systems were r eviewed and were otherwise negative. PMHx/PSHx: Cirrhosis MRSA infection DVT prophylaxis MSSA Escherichia coli infection COPD (chronic obstructive pulmonary disease) GERD (gastroesophageal reflux disease) Type 2 diabetes mellitus SOCIAL HISTORY: Patient lives at home. Tobacco abuse. PHYSICAL EXAM: GENERAL: Awake, alert, well-appearing, in no distress HENT: Normocephalic, atraumatic. Oropharynx unremarkable. EYES: PERRL. Normal conjunctiva. Sclera non-icteric. NECK: Inspection normal. Non-tender. Supple. No nuchal rigidity. FROM. No masses. RESPIRATORY: Clear to auscultation. No wheezes. No rales. Normal respiratory effort. CARDIAC: Normal rate. Normal rhythm. No murmurs. No rubs. Extremities warm and well perfused. Pulses equal. No JVD. GI: Soft, non-distended. No tenderness to palpation. No rebound or guarding. No masses. RECTAL: Deferred. MUSCULOSKELETAL: Atraumatic. Chest examination reveals no tenderness. The back is symmetrical on inspection without obvious abnormality. There is no CVA tenderness to palpation. No joint edema. LOWER EXTREMITIES: Calves are equal size bilaterally with tenderness. Bilateral redness and warmth. Venous discoloration bilaterally. Scattered wounds on extremities, with more wounds on the right leg. NEURO: Normal sensorium. No sensory or motor deficits noted. SKIN: No rash or jaundice noted. EMERGENCY DEPARTMENT COURSE: 1458: Past medical records reviewed. The patient was evaluated in room C12B, and a complete history and physical examination were performed. 1505: Infectious disease was paged. Dr. Perez-Internal Medicine is not tong setter today so Dr. Acevedo-Infectious Disease will call back to discuss the patient's case. 1709: I checked on the patient and updated him on his results. Infectious disease has still not called back for the patient. The patient is resting comfortably and is agreeable to admission. 1715: I discussed the patient's case with Jeanna Mcintosh Hospitalist who will evaluate the patient for further hospitalization. The patient will be admitted to Dr. Pendleton. MEDICAL DECISION MAKING: Prior records reviewed and summarized as above. Triage Nursing notes reviewed and agree them. Additional history obtained from the family. The patient's history was concerning for swelling and redness of the skin. Differential diagnosis: Etiologies such as cellulitis, DVT, necrotizing fasciitis, abscess, MRSA inf ection, dermatitis, drug eruption, as well as others were entertained.. Physical examination: The physical examination was consistent with cellulitis ER treatment provided: IV morphine IV ceftaroline On reassessment the patient felt better. Diagnostics interpreted by me: The labs revealed an unremarkable CBC and chemistry panel. Imaging studies: Deferred Consultation: A consultation was placed with infectious disease. I was not able to reach them. Given his prior infections and success with IV ceftaroline this was reinitiated. He is not doing well on the oral Zyvox and there was not another reasonable choice for treatment at home. A consultation was placed with the hospitalist. The case was discussed and diagnostics were reviewed. The patient was evaluated in the ER for further treatment. This appears to be isolated cellulitis. IMPRESSION: Cellulitis of both lower extremities PLAN: Being evaluated by hospitalist. The scribe's documentation has been prepared under my direction and personally reviewed by me in its entirety. I confirm that the note above accurately reflects all work, treatment, procedures, and medical decision making performed by me. Impression & Plan Cellulitis of both lower extremities Past Med/Surg History Social History Preferred Language: Fijian Communication Ability: Effective Visual Impairment: No Limitations Hearing Ability: Normal Driver Guard Required: No Beliefs That Will Affect Care: None marital status: Single Current Living Situation: Alone Other Information That Helps Us Care for You: No Feels Safe at Home: Yes Safety Concerns: Feels Safe At This Time Smoking Status: Current every day smoker Tobacco Type: cigarettes Cigarettes Per Day: 10 Second Hand Exposure: No Hx Alcohol Use: Yes Alcohol type: beer Alcohol Intake Frequency Comment: Pt reports quit drinking end of 07/2018 Hx Substance Use: No Results & Data Vital Signs Vital Signs - 24 hr 01/28/19 14:21 01/28/19 18:00 Temperature 36.6 C Temperature Source Oral Sepsis Recent Fever Within 48 Hours No Sepsis Action Taken by Nursing No Action Required Pulse Rate 107 H Pulse Rate [Right Finger] 92 H Respiratory Rate 20 20 Respiratory Effort / Characteristics Non-Labored Spontaneous Respiratory Depth Normal Respiratory Pattern Regular Blood Pressure 143/80 H Blood Pressure [Left Arm] 126/80 Blood Pressure Mean 101 Blood Pressure Mean [Left Arm] 95 Pulse Oximetry 97 96 Oxygen Delivery Method Room Air Room Air Home Medications Current Medication List: was personally reviewed by me Laboratory Data Attestation: I reviewed the patient's lab results. Result diagrams: 01/28/19 16:16 01/28/19 16:16 Lab Results 01/28/19 01/28/19 01/28/19 Range/Units 16:16 16:16 16:16 WBC 5.28 (4.8-10.8) K/uL RBC 4.73 (4.7-6.1) M/uL Hgb 13.6 L (14.0-18.0) g/dL Hct 39.8 L (42-52) % MCV 84.1 (80-100) fL MCH 28.8 (25-34) pg MCHC 34.2 (32-36) g/dL RDW Std Deviation 47.0 H (36.4-46.3) fL RDW Coeff of Kip 15.2 H (11.5-14.5) % Plt Count 200 (130-400) K/uL MPV 9.3 (7.4-10.4) fL Immature Gran % (Auto) 0.2 % Neut % (Auto) 77.3 % Lymph % (Auto) 15.3 % Crisp % (Auto) 5.5 % Eos % (Auto) 0.9 % Baso % (Auto) 0.8 % Immature Gran # (Auto) 0.01 (0.00-0.02) K/uL Neut # (Auto) 4.08 (1.4-6.5) K/uL Lymph # (Auto) 0.81 L (1.2-3.4) K/uL Crisp # (Auto) 0.29 (0.11-0.59) K/uL Eos # (Auto) 0.05 (0-0.5) K/uL Baso # (Auto) 0.04 (0-0.2) K/uL PT 11.4 (9.0-12.0) Seconds INR 1.1 (0.9-1.1) Sodium 139 (136-145) mmol/L Potassium 3.6 (3.5-5.1) mmol/L Chloride 104 (98-107) mmol/L Carbon Dioxide 27 (21-32) mmol/L Anion Gap 8.0 (3-11) BUN 7 (7-18) mg/dl Creatinine 0.95 (0.6-1.4) mg/dl Est Cr Clr Drug Dosing 124.4 ml/min Est GFR ( Amer) 112.4 Est GFR (Non-Af Amer) 97.0 BUN/Creatinine Ratio 7.3 L (10-20) Glucose 136 H (70-99) mg/dl POC Lactic Acid Ash (0.90-1.70) mmol/L Calcium 9.5 (8.5-10.1) mg/dl Total Bilirubin 0.8 (0.2-1) mg/dl AST 35 (15-37) U/L ALT 66 (12-78) U/L Alkaline Phosphatase 88 (45-117) U/L Total Protein 9.1 H (6.4-8.2) gm/dl Albumin 3.6 (3.4-5.0) gm/dl Globulin 5.5 H (2.5-4.0) gm/dl Albumin/Globulin Ratio 0.7 L (0.9-2) 01/28/19 Range/Units 16:25 WBC (4.8-10.8) K/uL RBC (4.7-6.1) M/uL Hgb (14.0-18.0) g/dL Hct (42-52) % MCV (80-100) fL MCH (25-34) pg MCHC (32-36) g/dL RDW Std Deviation (36.4-46.3) fL RDW Coeff of Kip (11.5-14.5) % Plt Count (130-400) K/uL MPV (7.4-10.4) fL Immature Gran % (Auto) % Neut % (Auto) % Lymph % (Auto) % Crisp % (Auto) % Eos % (Auto) % Baso % (Auto) % Immature Gran # (Auto) (0.00-0.02) K/uL Neut # (Auto) (1.4-6.5) K/uL Lymph # (Auto) (1.2-3.4) K/uL Crisp # (Auto) (0.11-0.59) K/uL Eos # (Auto) (0-0.5) K/uL Baso # (Auto) (0-0.2) K/uL PT (9.0-12.0) Seconds INR (0.9-1.1) Sodium (136-145) mmol/L Potassium (3.5-5.1) mmol/L Chloride (98-107) mmol/L Carbon Dioxide (21-32) mmol/L Anion Gap (3-11) BUN (7-18) mg/dl Creatinine (0.6-1.4) mg/dl Est Cr Clr Drug Dosing ml/min Est GFR ( Amer) Est GFR (Non-Af Amer) BUN/Creatinine Ratio (10-20) Glucose (70-99) mg/dl POC Lactic Acid Ash 0.88 L (0.90-1.70) mmol/L Calcium (8.5-10.1) mg/dl Total Bilirubin (0.2-1) mg/dl AST (15-37) U/L ALT (12-78) U/L Alkaline Phosphatase (45-117) U/L Total Protein (6.4-8.2) gm/dl Albumin (3.4-5.0) gm/dl Globulin (2.5-4.0) gm/dl Albumin/Globulin Ratio (0.9-2) Administered Medications Docusate Sodium (Colace) 200 mg PO BID [facility] Stop: 02/27/19 20:59 Last Admin: 01/28/19 21:05 Dose: 200 mg Documented by: [id number] Insulin Aspart (Novolog Flexpen) 0 units SC ACHS [facility] Stop: 02/27/19 20:59 Last Admin: 01/28/19 21:08 Dose: 1 units Documented by: [id number] Cosigned by: [id number] Morphine Sulfate (Morphine Sulfate) 4 mg IV Q4 PRN PRN Reason: Pain Stop: 02/11/19 19:27 Last Admin: 01/28/19 21:52 Dose: 4 mg Documented by: [id number] Oxycodone/Acetaminophen (Percocet 5mg/325mg) 1 tab PO Q6H PRN PRN Reason: pain Stop: 02/11/19 19:27 Last Admin: 01/28/19 19:48 Dose: 1 tab Documented by: [id number] Pantoprazole Sodium (Protonix) 40 mg PO BID [facility]; Protocol Stop: 02/27/19 20:59 Last Admin: 01/28/19 21:06 Dose: 40 mg Documented by: [id number] Fluticasone/Salmeterol (Advair Diskus 500/50) 1 puffs INH BID [facility] Stop: 02/27/19 20:59 Last Admin: 01/28/19 21:04 Dose: 1 puffs Documented by: [id number] Warfarin Sodium (Coumadin) 10 mg PO [id number] [facility] Stop: 02/27/19 21:14 Last Admin: 01/28/19 21:51 Dose: 10 mg Documented by: [id number] Discontinued Medications Ceftaroline Fosamil 600 mg/ (Sodium Chloride) 270 mls @ 250 mls/hr IV NOW STA; Protocol Stop: 01/28/19 18:04 Last Infusion: 01/28/19 19:57 Dose: 0 mls/hr Documented by: [id number] Admin: 01/28/19 17:56 Dose: 250 mls/hr Documented by: [id number] Morphine Sulfate (Morphine Sulfate) 4 mg IV NOW STA Stop: 01/28/19 17:01 Last Admin: 01/28/19 17:05 Dose: 4 mg Documented by: [id number] Blood Pressure Blood Pressure Findings: Elevated blood pressure Blood Pressure Disposition: elevated BP felt to be situational Discharge Plan Visit Data *Final* Discharge Date/Time: 01/28/19 18:35 Chief Complaint: Leg Injury/Pain Stated Complaint: INFECTION IN BOTH LEGS ED Provider: Steve Bang Discharge Problem: Cellulitis of both lower extremities Patient Disposition: Admitted As Inpatient Discharge Instructions Interventions: ED Discharge Assessment Last Done: 01/28/19 18:35 The scribe's documentation has been prepared under my direction and personally reviewed by me in its entirety. I confirm that the note above accurately reflects all work, treatment, procedures, and medical decision making performed by me.
[2019-01-29] MEDS: OXYCODONE/ACETAMINOPHEN 5mg/325mg TAB PO PRN ×3 (01:42→21:05)
[2019-01-29] MEDS: MoRPHine SULFATE 4 MG/ML 1 ML CARP\\VIAL IV PRN ×5 (04:05→22:20)
[2019-01-29] MEDS: CEFTAROLINE FOSAMIL ACETATE 600 MG in SODIUM CHLORIDE 0.9% 250 ML IV SCH ×3 (05:55→21:05)
--- NOTE | 2019-01-29 08:18 | Hospitalist Progress Note ---
Date of Service January 29, 2019 Assessment & Plan (1) Chronic venous stasis dermatitis of both lower extremities: 43-year-old male who has a past medical history significant for heterozygous MTHFR mutation, hemosiderosis, type 2 diabetes, COPD,chronic deep vein thrombosis of femoral vein, venous insufficiency, alcoholic liver cirrhosis with ascites, venous stasis ulcers of both the legs, thrombocytopenia, depression, tobacco use disorder who presents with re-opening of b/l lower extremity wounds with foul smelling drainage. He was DCd on 01/24 on PO Zyvox. He returns c/o of increasing pain in the RLE and worsening foul smelling drainage. He also noted that his appetite was horrible on Zyvox. The patient has recurrent infection of the lower extremities from venous stasis ulcers. He has had multiple recurrent hospitalizations in the past year. Patient's last hospitalization was 12/04 to 12/09 then 01/15-01/24 secondary to recurrent lower extremity wound infection/cellulitis. He had a midline in place and was discharged with 28-day course of IV antibiotics ceftaroline 600 mg every 12 hours. He completed antibiotics 2 weeks ago and had midline removed. Symptoms improved significantly and he even completed his wound care. He came back 01/15 and was treated c Ceftaroline and transitioned to PO Zyvox, which has failed prompting his return. (1) Acute Chronic ulcer of lower extremity: Ceftaroline 600 q12, Wound eval and treat, ID to see (2) Bilateral cellulitis of lower leg: Multiple admission for recurrent wound infections. Recently completed a 28-day course of IV ceftaroline for E. coli infection Wound cx grew Ecoli and MRSA Continue pain control with percocet prn Monitor CBC and BMP weekly (3) Type 2 diabetes mellitus: Last A1c 12/05/2018 6.8 Lantus and SSI (4) COPD (chronic obstructive pulmonary disease): Continue Advair (5) Chronic deep vein thrombosis (DVT): Continue warfarin (6) Hypercoagulable state: Secondary to heterozygous MTHFR mutation Warfarin as per INR (7) GERD (gastroesophageal reflux disease): Continue PPI (8) Tobacco abuse: Counseling on smoking cessation (9) Chronic narcotic use: Continue oxycodone as needed (10) Cirrhosis: Liver cirrhosis secondary to history of alcohol abuse No recent alcohol use Continue Lasix and Aldactone for volume management of ascites (11) DVT prophylaxis: On Coumadin per INR ROS-No Headache, No Visual Changes, No Nausea, No Vomiting, No Fever, No Chills, No Neck Pain or Stiffness, No Chest Pain, No Palpitations, No SOB, No VARMA, No Cough, No Sputum, No Wheezing, No Abdominal Pain, No Diarrhea, No Hematemesis, No Hemoptysis, No Unexpected Weight Loss, No Flank pain, No Melena, No Hematochezia, No Frequency, No Urgency, No Burning, No Hematuria, No Rashes, No Diaphoresis. Appetite is Normal Physical Exam Gen-AAO x 3, NAD, Afebrile, Obese Head-NCAT, EOMI, PERRLA, Anicteric Sclera, No Posterior Pharyngeal Erythema Neck-Supple, No JVD, No Thyromegaly, No Masses, No LAD, No Bruits Lungs-Clear to Auscultation Bilaterally, No Rales, No Rhonchi, No Wheezing, No Crepitus Chest-No S4, +S1, +S2, No S3, No Murmurs, No Rubs, No Gallops, No Ectopy Abdomen-Soft, Bowel Sounds Present, Non Tender, Non Distended, No Hepatomegaly, No Splenomegaly, No Palpable Masses, No Rebound, No Rigidity, No Guarding Musculoskeletal-Full Range of Motion Bilaterally, No CVAT Extremities-+Excoriated Craters at different stages of healing R >>>worse than L Nuero-Cranial Nerves II-XII grossly intact, Motor WNL, DTRs WNL, Strength WNL, Non Focal Psych-Normal Mood Results & Data Vital Signs (Past 12 Hours) Vital Signs Temp Pulse Resp BP Pulse Ox 01/29/19 07:31 36.6 C 72 20 110/77 95 01/28/19 23:05 36.8 C 82 20 108/70 95 Labs checked
[2019-01-29 08:41] LABS: INR 1.1 (0.9-1.1); Prothrombin Time 11.4 Seconds (9.0-12.0)
[2019-01-29 08:53] LABS: Albumin Level 3.2 gm/dl (3.4-5.0); BUN Creatinine Ratio 6.4 (10-20); Creatinine Clr Calc Pharmacy 145.9 ml/min; Est GFR (African American) 125.3; Est GFR (Non-African American) 108.1; Potassium 3.6 mmol/L (3.5-5.1)
[2019-01-29 08:56] LABS: Albumin Globulin Ratio 0.6 (0.9-2); Bilirubin,Total 0.8 mg/dl (0.2-1); Total Protein 8.2 gm/dl (6.4-8.2)
[2019-01-29] MEDS: SPIRONOLACTONE 100 MG TAB PO SCH (09:18)
[2019-01-29] MEDS: FLUTICASONE/SALMETEROL (ADVAIR) 500/50 INH 14 PUFF INH SCH ×2 (09:18→21:07)
[2019-01-29] MEDS: FOLIC ACID 1 MG TAB PO SCH (09:18)
[2019-01-29] MEDS: DOCUSATE SODIUM 100 MG CAP PO SCH ×2 (09:18→21:07)
[2019-01-29] MEDS: FUROSEMIDE 40 MG TAB PO SCH (09:19)
[2019-01-29] MEDS: INSULIN ASPART 100 UNITS/ML 3 ML PEN SC SCH ×4 (09:20→21:09)
[2019-01-29 09:55] LABS: Estimated Average Glucose 186 mg/dl; Hemoglobin A1C 8.1 % (4.5-5.6)
--- NOTE | 2019-01-29 13:37 | Infectious Disease Consult ---
Date of Consultation January 29, 2019 Assessment & Plan (1) Cellulitis of both lower extremities: continue ceftaroline for now, will likely need placement and prolonged course, 4 weeks, of IV abx, did not respond to po zyvox. continue local wound care. History of Present Illness Attending Physician: Augustin Mcdowell DO pt admitted with worsening appearance of chronic b/l le ulcers. most recent culture from 01/15 growing MRSA and E. coli, he was recently hospitalized and treated with IV ceftaroline with good response, he states that he was to be treated at snf with 4 weeks of IV abx but due to no bed availability he was instead d/c home on zyvox, states he took for a few days and had increased pain, drainage from legs. readmitted and restarted on ceftaroline, states he is already feeling better. denies any f/c since last d/c, states poor po intake while on zyvox, now improved. no cp, sob, cough, denies n/v/d/abd pain, tolerating abx well. wbc 5.2, no imaging to review, 01/28 blood cultures pending. Allergies Allergy/AdvReac Type Severity Reaction Status Date / Time peas Allergy Severe Swelling Verified 01/28/19 15:54 of Lip/Tongue/Throat Bactrim Allergy Intermediate hives Verified 04/12/18 15:58 sulfamethoxazole Allergy Intermediate hives Verified 01/28/19 15:54 trimethoprim Allergy Intermediate hives Verified 01/28/19 15:54 tuna oil Allergy Unknown . Verified 01/28/19 15:54 Home Medications Home Medications Medication Instructions Recorded Confirmed Type albuterol sulfate [Ventolin HFA] 1 puff INHALATION Q4H PRN 05/09/18 01/28/19 History docusate sodium [Colace] 200 mg PO BID 05/09/18 01/28/19 History folic acid 1 mg PO QAM 05/09/18 01/28/19 History omeprazole 20 mg PO BID 05/09/18 01/28/19 History gabapentin 300 mg PO QID 08/16/18 01/28/19 History furosemide [Lasix] 40 mg PO QAM 08/20/18 01/28/19 History metformin 500 mg PO BIDM 08/20/18 01/28/19 History spironolactone [Aldactone] 100 mg PO QAM 08/20/18 01/28/19 History warfarin 15 mg PO TUTHSA 08/20/18 01/28/19 History fluticasone propion-salmeterol 1 inh INHALATION BID 09/05/18 01/28/19 History [Advair Diskus] warfarin 10 mg PO SUMOWEFR 09/05/18 01/28/19 History oxycodone-acetaminophen [Percocet] 1 tab PO Q6H PRN 12/18/18 01/28/19 History linezolid [Zyvox] 600 mg PO Q12H 21 Days #42 tab 01/24/19 01/28/19 Rx Patient History Medical History GERD (gastroesophageal reflux disease) (Chronic) Tobacco abuse (Chronic) Chronic ulcer of lower extremity (Chronic) bilateral Chronic venous stasis dermatitis of both lower extremities (Chronic) Hypercoagulable state (Chronic) Prothrombin Factor II Mutation, 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, borderline hyperhomocystemia Anxiety (Chronic) MRSA (methicillin resistant Staphylococcus aureus) infection (Chronic) History of ETOH abuse (Chronic) Chronic narcotic use (Chronic) Type 2 diabetes mellitus (Chronic) COPD (chronic obstructive pulmonary disease) (Chronic) Depression (Chronic) Pulmonary nodule (Chronic) CT chest 04/12/18 - 4 mm RUL nodule, f/u 12 months Venous insufficiency (chronic) (peripheral) (Chronic) Anxiety COPD (chronic obstructive pulmonary disease) Cellulitis Chronic deep vein thrombosis (DVT) Chronic narcotic use Chronic ulcer of leg "b/l" Chronic venous stasis dermatitis of both lower extremities Depression GERD (gastroesophageal reflux disease) HTN (hypertension) History of ETOH abuse Hypercoagulable state On 04/12/18 14:03 Yanira Martinez wrote "Prothrombin Factor II Mutation, 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 Chaudhari History of drainage of abscess [address] 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, boderline hyperhomocystemia Social History Preferred Language: Khmer Communication Ability: Effective Visual Impairment: No Limitations Hearing Ability: Normal Plating Engineer Required: No Beliefs That Will Affect Care: None marital status: Single Current Living Situation: Alone Other Information That Helps Us Care for You: No Feels Safe at Home: Yes Safety Concerns: Feels Safe At This Time Smoking Status: Current every day smoker Tobacco Type: cigarettes Cigarettes Per Day: 10 Second Hand Exposure: No Hx Alcohol Use: Yes Alcohol type: beer Alcohol Intake Frequency Comment: Pt reports quit drinking end of 07/2018 Hx Substance Use: No Review of Systems Review of Systems: All systems reviewed & are unremarkable except as noted in HPI & below Physical Exam Constitutional: WD/WN, vitals as above Eyes: PERRL, conjunctivae normal, anicteric sclerae ENMT: external ear and nose normal, oropharynx normal Neck: normal visual inspection Respiratory: normal respiratory effort, lungs clear to auscultation Cardiovascular: RRR, no murmur, no edema Gastrointestinal (Abdomen): normal bowel sounds, soft, nontender, no hepatosplenomegaly Musculoskeletal: no cyanosis or clubbing, extremities motor strength 5/5 Skin: no rashes, warm and dry b/l le with lymphedema, unchange, multiple foul smelling ulcerartions b/l legs, tender to touch, erythema noted in addition to chronic changes. Psychiatric: A+Ox3, euthymic affect Results & Data Vital Signs (Past 12 Hours) Vital Signs Temp Pulse Resp BP Pulse Ox 01/29/19 07:31 36.6 C 72 20 110/77 95
[2019-01-29] MEDS: PANTOprazole 40 MG TAB PO SCH ×2 (13:46→21:08)
--- NOTE | 2019-01-29 14:52 | Pharmacy Report ---
Pharmacy Glycemic Short Note 2 - Date of Service January 29, 2019 - Glycemic Short BSG Results (Last 24 hours): 01/28/19 01/28/19 01/29/19 16:16 19:40 07:41 Glucose 136 H POC Glucose 170 H 146 H 01/29/19 08:08 Glucose 135 H POC Glucose OUTPATIENT ANTIDIABETIC REGIMEN: * Metformin 500mg PO BID * HbA1c: 8.1% (01/29/19) ASSESSMENT: * Mr Hendrix is a 43yo diabetic male admitted with worsening B/L venous stasis ulcers. * Patient was initiated on Novolog for correctional coverage last night. As pre-lunch BSG was elevated today, will add a conservative carb ratio at this time to provide some meal coverage. Will also resume patient's Metformin this evening. * Patient is receiving Ceftaroline for ulcers. He is ordered a diabetic diet. PLAN FOR INPATIENT GLYCEMIC CONTROL: * Hold outpatient oral diabetes medications * Resume Metformin 500mg BID starting with dinner this evening * Basal insulin * none * Bolus insulin * NovoLog per scale ACHS or Q6hrs while NPO * Goal Range: Low 110 mg/dL - High 140 mg/dL * Correction Factor: 30 mg/dL/unit * Nutritional / Prandial insulin per carb ratio of 1 unit per 15 grams CHO consumed PLAN FOR DISCHARGE: * Patient's A1c (8.1%) indicates sub-optimal glycemic control. * There is certainly room to increase his Metformin to improve control. * Consider increasing to Metformin 1gm PO BID on discharge. * May consider using extended-release formulation to improve tolerance of higher dose.
[2019-01-29] MEDS: WARFARIN SOD 7.5 MG TAB PO SCH (18:00)
[2019-01-29] MEDS: METFORMIN HCL 500 MG TAB PO SCH (18:01)
[2019-01-30] MEDS: MoRPHine SULFATE 4 MG/ML 1 ML CARP\\VIAL IV PRN ×5 (02:03→23:18)
[2019-01-30] MEDS: CEFTAROLINE FOSAMIL ACETATE 600 MG in SODIUM CHLORIDE 0.9% 250 ML IV SCH ×2 (06:27→18:05)
[2019-01-30] MEDS: OXYCODONE/ACETAMINOPHEN 5mg/325mg TAB PO PRN ×2 (06:29→15:47)
[2019-01-30 08:38] LABS: Basophils # (auto) 0.05 K/uL (0-0.2); Basophils % (auto) 1.5 %; Eosinophils # (auto) 0.09 K/uL (0-0.5); Eosinophils % (auto) 2.7 %; Hematocrit (blood only) 36.1 % (42-52); Hemoglobin 12.4 g/dL (14.0-18.0); Immature Granulocytes # (auto) 0.02 K/uL (0.00-0.02); Immature Granulocytes % (auto) 0.6 %; Lymphocytes # (auto) 0.84 K/uL (1.2-3.4); Lymphocytes % (auto) 24.9 %; Mean Corpuscular Hgb Conc 34.3 g/dL (32-36); Mean Corpuscular Volume 85.5 fL (80-100); Mean Platelet Volume 9.3 fL (7.4-10.4); Monocytes # (auto) 0.28 K/uL (0.11-0.59); Monocytes % (auto) 8.3 %; Neutrophils # (auto) 2.09 K/uL (1.4-6.5); Platelet Count 187 K/uL (130-400); RDW Coefficient of Variation 15.5 % (11.5-14.5); RDW Standard Deviation 47.9 fL (36.4-46.3); Red Blood Count 4.22 M/uL (4.7-6.1); White Blood Count 3.37 K/uL (4.8-10.8)
[2019-01-30] MEDS: FOLIC ACID 1 MG TAB PO SCH (10:23)
[2019-01-30] MEDS: METFORMIN HCL 500 MG TAB PO SCH ×2 (10:23→18:04)
[2019-01-30] MEDS: SPIRONOLACTONE 100 MG TAB PO SCH (10:23)
[2019-01-30] MEDS: FUROSEMIDE 40 MG TAB PO SCH (10:23)
[2019-01-30] MEDS: PANTOprazole 40 MG TAB PO SCH ×2 (10:24→21:25)
[2019-01-30] MEDS: DOCUSATE SODIUM 100 MG CAP PO SCH ×2 (10:24→21:25)
[2019-01-30] MEDS: FLUTICASONE/SALMETEROL (ADVAIR) 500/50 INH 14 PUFF INH SCH ×2 (10:24→21:24)
[2019-01-30] MEDS: INSULIN ASPART 100 UNITS/ML 3 ML PEN SC SCH ×4 (10:26→21:25)
--- NOTE | 2019-01-30 10:57 | Infectious Disease Progress Nt ---
Date of Service January 30, 2019 Assessment & Plan (1) Cellulitis of both lower extremities: continue ceftaroline for now, will likely need placement and prolonged course, 4 weeks, of IV abx, did not respond to po zyvox. continue local wound care. Subjective pt tolerating ceftaroline, blood cultures pending. wbc 3.3 afebrile. Results & Data Vital Signs (Past 12 Hours) Vital Signs Temp Pulse Resp BP Pulse Ox 01/30/19 07:19 36.8 C 71 18 120/75 93 Laboratory Results Microbiology 01/28/19 16:31 Blood Aerobic Blood Culture - Preliminary No growth in Aerobic bottle after 24 hours. 01/28/19 16:31 Blood Anaerobic Blood Culture - Preliminary No growth in Anaerobic bottle after 24 hours. 01/28/19 16:16 Blood Anaerobic Blood Culture - Preliminary No growth in Anaerobic bottle after 24 hours.
[2019-01-30] MEDS: ENOXAPARIN INJ 40 MG/0.4 ML SYR SQ SCH (13:02)
--- NOTE | 2019-01-30 14:44 | Pharmacy Report ---
Pharmacy Glycemic Short Note 2 - Date of Service January 30, 2019 - Glycemic Short BSG Results (Last 24 hours): 01/29/19 01/29/19 01/29/19 11:39 16:52 20:07 POC Glucose 201 H 195 H 192 H 01/30/19 01/30/19 08:23 12:19 POC Glucose 153 H 153 H OUTPATIENT ANTIDIABETIC REGIMEN: * Metformin 500mg PO BID * HbA1c: 8.1% (01/29/19) ASSESSMENT: 01/30/19: * Patient received total 11 units of insulin yesterday. Fasting BSG = 153 this morning. * Post prandial BSGs was slightly high at HS = 192, so carb ratio was slightly tightened to 12 this AM. * Metformin 500 mg BID was resumed yesterday with dinner. 01/29/19: * Mr Hendrix is a 43yo diabetic male admitted with worsening B/L venous stasis ulcers. * Patient was initiated on Novolog for correctional coverage last night. As pre-lunch BSG was elevated today, will add a conservative carb ratio at this time to provide some meal coverage. Will also resume patient's Metformin this evening. * Patient is receiving Ceftaroline for ulcers. He is ordered a diabetic diet. PLAN FOR INPATIENT GLYCEMIC CONTROL: * Metformin 500 mg BID (home dose) * Basal insulin * none * Bolus insulin * NovoLog per scale ACHS or Q6hrs while NPO * Goal Range: Low 110 mg/dL - High 140 mg/dL * Correction Factor: 30 mg/dL/unit * Nutritional / Prandial insulin per carb ratio of 1 unit per 12 grams CHO consumed PLAN FOR DISCHARGE: * Patient's A1c (8.1%) indicates sub-optimal glycemic control. * There is certainly room to increase his Metformin to improve control. * Consider increasing to Metformin 1gm PO BID on discharge. * May consider using extended-release formulation to improve tolerance of higher dose.
[2019-01-30] MEDS: WARFARIN SOD 10 MG TAB PO SCH (15:46)
--- NOTE | 2019-01-30 21:19 | Hospitalist Progress Note ---
Date of Service January 30, 2019 Assessment & Plan (1) Chronic venous stasis dermatitis of both lower extremities: 2) Bilateral cellulitis of lower leg: Multiple admission for recurrent wound infections. Was recently discharged on Zyvox after receiving 10 days course of IV ceftaroline. Before last admission he completed a 28-day course of IV ceftaroline for E. coli infection Failed Zyvox therapy ID on board recommended to continue IV ceftaroline 600 mg every 12 hours for 4 weeks Wound cx grew Ecoli and MRSA in the last admission Blood cx no growth so far Wound care on board Continue daily wound care Continue pain control with percocet prn Case management aware to arrange for placement for abx infusion Monitor CBC and BMP weekly Waiting for placement (3) Type 2 diabetes mellitus: Most recent Hba1c 8.1 on 01/30/19 Hold outpatient metformin Lantus/NovoLog per protocol Monitor BS (4) COPD (chronic obstructive pulmonary disease): Continue DuoNeb and incentive spirometry Continue Advair Stable (5) Chronic deep vein thrombosis (DVT): Continue warfarin INR subtherapeutic (6) Hypercoagulable state: Secondary to heterozygous MTHFR mutation Continue warfarin Monitor PT/INR (7) GERD (gastroesophageal reflux disease): Continue PPI (8) Tobacco abuse Nicotine patch ordered Counseling on smoking cessation (9) Chronic narcotic use Continue oxycodone as needed (10) Cirrhosis: Liver cirrhosis secondary to history of alcohol abuse No recent alcohol use Continue Lasix and Aldactone for volume management of ascites Stable (11) DVT prophylaxis: On Coumadin INR subtherapeutic Will add Lovenox subq until INR therapeutic Disposition Waiting for placement Will need 4 weeks of IV abx Subjective Pt was seen and examined Lying in bed with no distress with mother at bedside Pt said that pain improves Denies any chest pain, palpitation, dizziness and SOB Physical Exam Physical Exam: General- No acute distress Head- atraumatic Eyes- PERRL, EOMI, ENT- oropharynx clear Neck- supple, no JVD Lungs- clear to auscultation Heart- regular rhythm; no murmur Abdomen- normal bowel sounds, soft, nontender Extremities- Severe b/l LE nodular lymphedema with venous stasis changes, multiple open venous stasis ulcerations right pretibial and medial calf with foul smelling drainage cover with dressing Neuro- alert, oriented x 3; PERRL, EOMI; no facial palsy; no dysarthria Skin- warm & dry Results & Data Vital Signs (Past 12 Hours) Vital Signs Temp Pulse Resp BP Pulse Ox 01/30/19 16:27 36.5 C 67 17 118/78 96
[2019-01-31] MEDS: CEFTAROLINE FOSAMIL ACETATE 600 MG in SODIUM CHLORIDE 0.9% 250 ML IV SCH ×2 (05:36→17:28)
[2019-01-31] MEDS: MoRPHine SULFATE 4 MG/ML 1 ML CARP\\VIAL IV PRN ×4 (08:17→20:57)
[2019-01-31] MEDS: FOLIC ACID 1 MG TAB PO SCH (08:18)
[2019-01-31] MEDS: METFORMIN HCL 500 MG TAB PO SCH ×2 (08:18→16:56)
[2019-01-31] MEDS: PANTOprazole 40 MG TAB PO SCH ×2 (08:18→20:54)
[2019-01-31] MEDS: FUROSEMIDE 40 MG TAB PO SCH (08:18)
[2019-01-31] MEDS: DOCUSATE SODIUM 100 MG CAP PO SCH ×2 (08:18→20:54)
[2019-01-31] MEDS: SPIRONOLACTONE 100 MG TAB PO SCH (08:18)
[2019-01-31] MEDS: FLUTICASONE/SALMETEROL (ADVAIR) 500/50 INH 14 PUFF INH SCH ×2 (08:18→20:55)
[2019-01-31] MEDS: ENOXAPARIN INJ 40 MG/0.4 ML SYR SQ SCH (08:19)
[2019-01-31] MEDS: INSULIN ASPART 100 UNITS/ML 3 ML PEN SC SCH ×4 (08:25→20:21)
[2019-01-31 08:41] LABS: Hematocrit (blood only) 37.3 % (42-52); Hemoglobin 12.4 g/dL (14.0-18.0); Mean Corpuscular Hgb Conc 33.2 g/dL (32-36); Mean Corpuscular Volume 85.9 fL (80-100); Mean Platelet Volume 9.4 fL (7.4-10.4); Platelet Count 206 K/uL (130-400); RDW Coefficient of Variation 15.5 % (11.5-14.5); RDW Standard Deviation 48.5 fL (36.4-46.3); Red Blood Count 4.34 M/uL (4.7-6.1); White Blood Count 3.15 K/uL (4.8-10.8)
[2019-01-31 08:53] LABS: INR 1.9 (0.9-1.1); Prothrombin Time 18.2 Seconds (9.0-12.0)
[2019-01-31] MEDS: OXYCODONE/ACETAMINOPHEN 5mg/325mg TAB PO PRN ×2 (11:01→19:15)
[2019-01-31] MEDS: WARFARIN SOD 7.5 MG TAB PO SCH (16:56)
--- NOTE | 2019-01-31 20:17 | Hospitalist Progress Note ---
Date of Service January 31, 2019 Assessment & Plan (1) Chronic venous stasis dermatitis of both lower extremities: 2) Bilateral cellulitis of lower leg: Multiple admission for recurrent wound infections. Was recently discharged on Zyvox after receiving 10 days course of IV ceftaroline. Before last admission he completed a 28-day course of IV ceftaroline for E. coli infection Failed Zyvox therapy ID on board recommended to continue IV ceftaroline 600 mg every 12 hours for 4 weeks Wound cx grew Ecoli and MRSA in the last admission Blood cx no growth so far Wound care on board Continue daily wound care Continue pain control with percocet prn IV access placed today for IV abx infusion Monitor CBC and BMP weekly Plan to transfer tomorrow to [facility] to continue IV abx (3) Type 2 diabetes mellitus: Most recent Hba1c 8.1 on 01/30/19 Hold outpatient metformin Lantus/NovoLog per protocol Monitor BS (4) COPD (chronic obstructive pulmonary disease): Continue DuoNeb and incentive spirometry Continue Advair Stable (5) Chronic deep vein thrombosis (DVT): Continue warfarin INR 1.9 today (6) Hypercoagulable state: Secondary to heterozygous MTHFR mutation Continue warfarin Monitor PT/INR (7) GERD (gastroesophageal reflux disease): Continue PPI (8) Tobacco abuse Nicotine patch ordered Counseling on smoking cessation (9) Chronic narcotic use Continue oxycodone as needed (10) Cirrhosis: Liver cirrhosis secondary to history of alcohol abuse No recent alcohol use Continue Lasix and Aldactone for volume management of ascites Stable (11) DVT prophylaxis: On Coumadin INR subtherapeutic On Lovenox subq until INR therapeutic INR 1.9 today Disposition Waiting for placement Will need 4 weeks of IV abx Subjective Pt was seen and examined Lying in bed with no distress playing in his cell phone Dressing changed today Wound with foul smelling Denies any chest pain, palpitation and SOB Physical Exam Physical Exam: General- No acute distress Head- atraumatic Eyes- PERRL, EOMI, ENT- oropharynx clear Neck- supple, no JVD Lungs- clear to auscultation Heart- regular rhythm; no murmur Abdomen- normal bowel sounds, soft, nontender Extremities- Severe b/l LE nodular lymphedema with venous stasis changes, multiple open venous stasis ulcerations right pretibial and medial calf with foul smelling drainage cover with dressing Neuro- alert, oriented x 3; PERRL, EOMI; no facial palsy; no dysarthria Skin- warm & dry Results & Data Vital Signs (Past 12 Hours) Vital Signs Temp Pulse Resp BP Pulse Ox 01/31/19 15:37 36.8 C 69 18 121/73 96
[2019-01-31] MEDS: GABAPENTIN 300 MG CAP PO SCH (20:54)
[2019-01-31] MEDS ORDERED: MIRTAZAPINE TAB 15 MG TAB PO SCH (21:00)
[2019-02-01] MEDS: MoRPHine SULFATE 4 MG/ML 1 ML CARP\\VIAL IV PRN ×3 (04:24→12:50)
[2019-02-01] MEDS: CEFTAROLINE FOSAMIL ACETATE 600 MG in SODIUM CHLORIDE 0.9% 250 ML IV SCH ×2 (06:09→15:43)
[2019-02-01] MEDS: FOLIC ACID 1 MG TAB PO SCH (07:41)
[2019-02-01] MEDS: PANTOprazole 40 MG TAB PO SCH (07:41)
[2019-02-01] MEDS: FLUTICASONE/SALMETEROL (ADVAIR) 500/50 INH 14 PUFF INH SCH (07:42)
[2019-02-01] MEDS: METFORMIN HCL 500 MG TAB PO SCH ×2 (07:42→15:52)
[2019-02-01] MEDS: DOCUSATE SODIUM 100 MG CAP PO SCH (07:42)
[2019-02-01] MEDS: GABAPENTIN 300 MG CAP PO SCH ×3 (07:42→15:53)
[2019-02-01] MEDS: ENOXAPARIN INJ 40 MG/0.4 ML SYR SQ SCH (07:43)
[2019-02-01] MEDS: SPIRONOLACTONE 100 MG TAB PO SCH (07:43)
[2019-02-01] MEDS: FUROSEMIDE 40 MG TAB PO SCH (07:43)
[2019-02-01 07:47] LABS: Prothrombin Time 19.9 Seconds (9.0-12.0)
[2019-02-01] MEDS: OXYCODONE/ACETAMINOPHEN 5mg/325mg TAB PO PRN ×2 (07:50→15:53)
[2019-02-01] MEDS: INSULIN ASPART 100 UNITS/ML 3 ML PEN SC SCH ×2 (08:54→12:36)
--- NOTE | 2019-02-01 10:55 | Pharmacy Report ---
Pharmacy Glycemic Short Note 2 - Date of Service February 01, 2019 - Glycemic Short BSG Results (Last 24 hours): 01/31/19 01/31/19 01/31/19 11:57 17:03 20:07 POC Glucose 130 H 134 H 130 H 02/01/19 08:11 POC Glucose 136 H OUTPATIENT ANTIDIABETIC REGIMEN: * Metformin 500mg PO BID * HbA1c: 8.1% (01/29/19) ASSESSMENT: 02/01/19: * Patient received total 18 units of insulin the last 2 days from Novolog bolus. He continues also on Metformin 500 mg PO BID. * All BSGs yesterday were in the 130s including fasting BSG today. * Since BSGs have been within goal, will continue current Novolog parameters and Metformin BID. 01/30/19: * Patient received total 11 units of insulin yesterday. Fasting BSG = 153 this morning. * Post prandial BSGs was slightly high at HS = 192, so carb ratio was slightly tightened to 12 this AM. * Metformin 500 mg BID was resumed yesterday with dinner. 01/29/19: * Mr Hendrix is a 43yo diabetic male admitted with worsening B/L venous stasis ulcers. * Patient was initiated on Novolog for correctional coverage last night. As pre-lunch BSG was elevated today, will add a conservative carb ratio at this time to provide some meal coverage. Will also resume patient's Metformin this evening. * Patient is receiving Ceftaroline for ulcers. He is ordered a diabetic diet. PLAN FOR INPATIENT GLYCEMIC CONTROL: * Metformin 500 mg BID (home dose) * Basal insulin * none * Bolus insulin * NovoLog per scale ACHS or Q6hrs while NPO * Goal Range: Low 110 mg/dL - High 140 mg/dL * Correction Factor: 30 mg/dL/unit * Nutritional / Prandial insulin per carb ratio of 1 unit per 10 grams CHO consumed PLAN FOR DISCHARGE: * Patient's A1c (8.1%) indicates sub-optimal glycemic control. * There is certainly room to increase his Metformin to improve control. * Consider increasing to Metformin 1gm PO BID on discharge. * May consider using extended-release formulation to improve tolerance of higher dose.
--- NOTE | 2019-02-01 12:42 | Hospitalist Progress Note ---
Date of Service February 01, 2019 Assessment & Plan (1) Chronic venous stasis dermatitis of both lower extremities: 2) Bilateral cellulitis of lower leg: Multiple admission for recurrent wound infections. Was recently discharged on Zyvox after receiving 10 days course of IV ceftaroline. Before last admission he completed a 28-day course of IV ceftaroline for E. coli infection Failed Zyvox therapy ID on board recommended to continue IV ceftaroline 600 mg every 12 hours for 4 weeks Wound cx grew Ecoli and MRSA in the last admission Blood cx no growth so far Wound care on board Continue daily wound care Continue pain control with percocet prn U/S guided peripheral IV access placed yesterday Continue IV Ceftaroline infusion BID for 4 weeks Monitor CBC and BMP weekly Plan to discharge to [place] to continue IV abx infusion (3) Type 2 diabetes mellitus: Most recent Hba1c 8.1 on 01/30/19 Hold outpatient metformin Will increase metformin to 1g BID Check hba1c in 3 to 6 momths. Lantus/NovoLog per protocol Monitor BS (4) COPD (chronic obstructive pulmonary disease): Continue DuoNeb and incentive spirometry Continue Advair Stable (5) Chronic deep vein thrombosis (DVT): Continue warfarin INR 2.0 today (6) Hypercoagulable state: Secondary to heterozygous MTHFR mutation Continue warfarin Monitor PT/INR (7) GERD (gastroesophageal reflux disease): Continue PPI (8) Tobacco abuse Nicotine patch ordered Counseling on smoking cessation (9) Chronic narcotic use Continue oxycodone as needed (10) Cirrhosis: Liver cirrhosis secondary to history of alcohol abuse No recent alcohol use Continue Lasix and Aldactone for volume management of ascites Stable (11) DVT prophylaxis: On Coumadin INR subtherapeutic On Lovenox subq until INR therapeutic INR 2.0 today Disposition Will need 4 weeks of IV abx Will discharge to [place] today Subjective Pt was seen and examined Lying in bed with no distress Pt said that he feels ok He is planning to go to [facility] today I spoke to pharmacy and the early he can get the next dose of Ceftaroline is around 3 pm Denies any chest pain, palpitation and SOB Physical Exam Physical Exam: General- No acute distress Head- atraumatic Eyes- PERRL, EOMI, ENT- oropharynx clear Neck- supple, no JVD Lungs- clear to auscultation Heart- regular rhythm; no murmur Abdomen- normal bowel sounds, soft, nontender Extremities- Severe b/l LE nodular lymphedema with venous stasis changes, multiple open venous stasis ulcerations right pretibial and medial calf with foul smelling drainage cover with dressing Neuro- alert, oriented x 3; PERRL, EOMI; no facial palsy; no dysarthria Skin- warm & dry Results & Data Vital Signs (Past 12 Hours) Vital Signs Temp Pulse Resp BP Pulse Ox 02/01/19 07:52 36.8 C 66 16 115/76 96
[2019-02-01] MEDS: WARFARIN SOD 10 MG TAB PO SCH (15:52)
--- NOTE | 2019-02-03 07:52 | Discharge Summary ---
Date of Service February 01, 2019 Admission HPI Per Admitting Provider 43-year-old male who has a past medical history significant for heterozygous MTHFR mutation, hemosiderosis, type 2 diabetes, COPD,chronic deep vein thrombosis of femoral vein, venous insufficiency, alcoholic liver cirrhosis with ascites, venous stasis ulcers of both the legs, thrombocytopenia, depression, tobacco use disorder who presents with re-opening of b/l lower extremity wounds with foul smelling drainage. He was DCd on 01/24 on PO Zyvox. He returns c/o of increasing pain in the RLE and worsening foul smelling drainage. He also noted that his appetite was horrible on Zyvox. The patient has recurrent infection of the lower extremities from venous stasis ulcers. He has had multiple recurrent hospitalizations in the past year. Patient's last hospitalization was 12/04 to 12/09 then 01/15-01/24 secondary to recurrent lower extremity wound infection/cellulitis. He had a midline in place and was discharged with 28-day course of IV antibiotics ceftaroline 600 mg every 12 hours. He completed antibiotics 2 weeks ago and had midline removed. Symptoms improved significantly and he even completed his wound care. He came back 01/15 and was treated c Ceftaroline and transitioned to PO Zyvox, which has failed prompting his return. Admission Exam Per Admitting Provider Gen-AAO x 3, NAD, Afebrile, Obese Head-NCAT, EOMI, PERRLA, Anicteric Sclera, No Posterior Pharyngeal Erythema Neck-Supple, No JVD, No Thyromegaly, No Masses, No LAD, No Bruits Lungs-Clear to Auscultation Bilaterally, No Rales, No Rhonchi, No Wheezing, No Crepitus Chest-No S4, +S1, +S2, No S3, No Murmurs, No Rubs, No Gallops, No Ectopy Abdomen-Soft, Bowel Sounds Present, Non Tender, Non Distended, No Hepatomegaly, No Splenomegaly, No Palpable Masses, No Rebound, No Rigidity, No Guarding Musculoskeletal-Full Range of Motion Bilaterally, No CVAT Extremities-+Excoriated Craters at different stages of healing R >>>worse than L Nuero-Cranial Nerves II-XII grossly intact, Motor WNL, DTRs WNL, Strength WNL, Non Focal Psych-Normal Mood Principal Diagnosis Chronic venous stasis dermatitis of both lower extremities Bilateral cellulitis of lower leg Type 2 diabetes mellitus Chronic narcotic use Chronic deep vein thrombosis (DVT): Continue warfarin Hypercoagulable state Tobacco abuse COPD Discharge Exam General- No acute distress Head- atraumatic Eyes- PERRL, EOMI, ENT- oropharynx clear Neck- supple, no JVD Lungs- clear to auscultation Heart- regular rhythm; no murmur Abdomen- normal bowel sounds, soft, nontender Extremities- Severe b/l LE nodular lymphedema with venous stasis changes, multiple open venous stasis ulcerations right pretibial and medial calf with foul smelling drainage cover with dressing Neuro- alert, oriented x 3; PERRL, EOMI; no facial palsy; no dysarthria Skin- warm & dry Discharge Data Allergies Allergy/AdvReac Type Severity Reaction Status Date / Time peas Allergy Severe Swelling Verified 01/28/19 15:54 of Lip/Tongue/Throat Bactrim Allergy Intermediate hives Verified 04/12/18 15:58 sulfamethoxazole Allergy Intermediate hives Verified 01/28/19 15:54 trimethoprim Allergy Intermediate hives Verified 01/28/19 15:54 tuna oil Allergy Unknown . Verified 01/28/19 15:54 Consultations 01/28/19 17:17 ED Decision to Admit Stat 01/28/19 19:28 Consult Wound Care Provider Routine 01/29/19 07:00 Consult Infectious Diseases Routine Hospital Course (1) Chronic venous stasis dermatitis of both lower extremities: 2) Bilateral cellulitis of lower leg: Multiple admission for recurrent wound infections. Was recently discharged on Zyvox after receiving 10 days course of IV ceftaroline. Before last admission he completed a 28-day course of IV ceftaroline for E. coli infection Failed Zyvox therapy ID on board recommended to continue IV ceftaroline 600 mg every 12 hours for 4 weeks Wound cx grew Ecoli and MRSA in the last admission Blood cx no growth so far Wound care on board Continue daily wound care Continue pain control with percocet prn U/S guided peripheral IV access placed yesterday Continue IV Ceftaroline infusion BID for 4 weeks Monitor CBC and BMP weekly Plan to discharge to [place] to continue IV abx infusion (3) Type 2 diabetes mellitus: Most recent Hba1c 8.1 on 01/30/19 Hold outpatient metformin Will increase metformin to 1g BID Check hba1c in 3 to 6 momths. Lantus/NovoLog per protocol Monitor BS (4) COPD (chronic obstructive pulmonary disease): Continue DuoNeb and incentive spirometry Continue Advair Stable (5) Chronic deep vein thrombosis (DVT): Continue warfarin INR 2.0 today (6) Hypercoagulable state: Secondary to heterozygous MTHFR mutation Continue warfarin Monitor PT/INR (7) GERD (gastroesophageal reflux disease): Continue PPI (8) Tobacco abuse Nicotine patch ordered Counseling on smoking cessation (9) Chronic narcotic use Continue oxycodone as needed (10) Cirrhosis: Liver cirrhosis secondary to history of alcohol abuse No recent alcohol use Continue Lasix and Aldactone for volume management of ascites Stable (11) DVT prophylaxis: On Coumadin INR subtherapeutic On Lovenox subq until INR therapeutic INR 2.0 today Disposition Will need 4 weeks of IV abx Will discharge to [place] today Total Time Total Time Spent Total Time Spent (In Minutes): 35 minutes Total Time Includes: Examination of the Patient, Discharge Planning, Medication Reconciliation, Communication With Other Providers and Other Discharge Plan Discharge Items Patient Disposition: Transfer [facility] Reason For Visit: RECURRENT CELLULITIS BLE C CHRONIC STASIS ULCERS Discharge Diagnosis: Chronic venous stasis dermatitis of both lower extremities Bilateral cellulitis of lower leg Type 2 diabetes mellitus Chronic narcotic use Chronic deep vein thrombosis (DVT): Continue warfarin Hypercoagulable state Tobacco abuse COPD Discharge Goals: Decrease discomfort, Improve disease control, Increase independence and Improve nutritional status Activity: Resume your previous activity Activity Comment: As tolerated Non-emergency contact: Primary Care Provider Call non-emergency contact if: you have any medication questions and your temperature is above 101 Follow-up/Referrals: Gareth Lin MD [Primary Care Provider] - Diet: Carb Consistent or DM2 Addtl Provider Instructions: Follow up with your primary care provider once discharge Follow up with Infectious disease Follow up with wound care clinic Continue daily wound care dressing Continue course of IV antibiotic infusion Check CBC and BMP weekly while on IV Ceftaroline Follow a healthy diabetic diet and limited concentrated sweet intake Check Hba1c between 3 to 6 weeks Follow up with the coumadin clinic (INR today 2) Check PT/INR on Monday Prescriptions: New mirtazapine 15 mg Tablet 15 mg PO HS PRN (Reason: insomnia) 30 Days Qty: 30 RF: 0 metformin 1,000 mg tablet 1,000 mg PO BID Qty: 60 RF: 0 ceftaroline fosamil 600 mg recon soln 600 mg IV Q12H 30 Days Qty: 60 RF: 0 Continued docusate sodium [Colace] 100 mg Capsule 200 mg PO BID RF: 0 omeprazole 20 mg Capsule,Delayed Release(Dr/Ec) 20 mg PO BID RF: 0 folic acid 1 mg Tablet 1 mg PO QAM RF: 0 albuterol sulfate [Ventolin HFA] 90 mcg/actuation Hfa Aerosol Inhaler 1 puff INHALATION Q4H PRN (Reason: Shortness Of Breath) RF: 0 gabapentin 300 mg Capsule 300 mg PO QID RF: 0 warfarin 5 mg Tablet 15 mg PO TUTHSA RF: 0 furosemide [Lasix] 20 mg Tablet 40 mg PO QAM RF: 0 spironolactone [Aldactone] 50 mg Tablet 100 mg PO QAM RF: 0 oxycodone-acetaminophen [Percocet] 5-325 mg Tablet 1 tab PO Q6H PRN (Reason: pain) Qty: 10 RF: 0 warfarin 5 mg Tablet 10 mg PO SUMOWEFR RF: 0 fluticasone propion-salmeterol [Advair Diskus] 500-50 mcg/dose Blister With Device 1 inh INHALATION BID RF: 0 Discontinued metformin 500 mg Tablet 500 mg PO BIDM RF: 0 linezolid [Zyvox] 600 mg tablet 600 mg PO Q12H 21 Days Qty: 42 RF: 0 Stand-Alone Forms: [facility] Discharge Orders: Discharge Order (Routine); Ordered 02/01/19 Ordered By: Shell Gonzalez Skilled Items Patient informed of condition?: Yes DNR: No Discharge Level of Care: Skilled Communicable Disease: No Discharge Prognosis: Stable Admission Data Admit Date/Time: 01/28/19 18:05 Attending Provider: Shell Gonzalez Admit Provider: Augustin Mcdowell Primary Care Provider: Gareth Lin Other Providers: Augustin Pendleton ; Federico Robledo ; Todd Perez ; Augustin Mcdowell Service: Medical Other Interventions: Discharge Summary Assessment (RN) Last Done: 02/01/19 16:58 DC Date/Time DO NOT enter until pt leaves facility: 02/01/19 17:34
== END 2019-02-01 17:34 ==
LOC: ED 14:13 → 4W 18:05 → SUATTDRO 18:05 → 4W 18:35

== ENCOUNTER 2019-03-10 13:03 | Inpatient (IN) ==
[2019-03-10] MEDS ORDERED: SODIUM CHLORIDE 0.9% 1000ML 1,000 ML IV SCH (14:15)
[2019-03-10] MEDS ORDERED: DAPTOmycin 525 MG in SYRINGE 0 ML IV ONE (14:16)
[2019-03-10] MEDS ORDERED: IMIPENEM/CILASTATIN SODIUM 500 MG in DEXTROSE 5% 100 ML IV STA (14:16)
[2019-03-10 14:31] LABS: Basophils # (auto) 0.03 K/uL (0-0.2); Basophils % (auto) 0.4 %; Eosinophils # (auto) 0.05 K/uL (0-0.5); Eosinophils % (auto) 0.7 %; Hematocrit (blood only) 37.8 % (42-52); Immature Granulocytes # (auto) 0.02 K/uL (0.00-0.02); Immature Granulocytes % (auto) 0.3 %; Lymphocytes # (auto) 0.85 K/uL (1.2-3.4); Lymphocytes % (auto) 12.7 %; Mean Corpuscular Hgb Conc 34.4 g/dL (32-36); Mean Corpuscular Volume 87.1 fL (80-100); Mean Platelet Volume 9.7 fL (7.4-10.4); Monocytes # (auto) 0.69 K/uL (0.11-0.59); Monocytes % (auto) 10.3 %; Neutrophils # (auto) 5.04 K/uL (1.4-6.5); Neutrophils % (auto) 75.6 %; Platelet Count 142 K/uL (130-400); RDW Coefficient of Variation 17.7 % (11.5-14.5); RDW Standard Deviation 55.8 fL (36.4-46.3); Red Blood Count 4.34 M/uL (4.7-6.1); White Blood Count 6.68 K/uL (4.8-10.8)
[2019-03-10 14:48] LABS: Albumin Level 3.6 gm/dl (3.4-5.0); BUN Creatinine Ratio 5.3 (10-20); Calcium 9.1 mg/dl (8.5-10.1); Creatinine Clr Calc Pharmacy 112.3 ml/min; Est GFR (African American) 99.6; Est GFR (Non-African American) 85.9; Potassium 3.6 mmol/L (3.5-5.1)
[2019-03-10 14:51] LABS: Albumin Globulin Ratio 0.6 (0.9-2); Bilirubin,Total 1.1 mg/dl (0.2-1); Globulin 5.6 gm/dl (2.5-4.0); Total Protein 9.2 gm/dl (6.4-8.2)
--- NOTE | 2019-03-10 14:52 | Emergency Department Note ---
Entered by Selina Hernandez acting as a scribe for Caren Campbell MD History of Present Illness General Chief complaint: Infection, Wound Stated complaint: LEG INFECTION Source: patient History of Present Illness Onset (ago): week(s) 1 Location: lower extremity (bilateral distal) Pain Consistency: + other (persistent) Maximum Pain Intensity: 8 Quality: + other (infection) Relieved By: + medication (antibiotics) Associated symptoms: + other (hot/cold, fever, open wounds, vomiting, right foot pain) The patient is a 43 year old male that is presenting to the Emergency Room with complaints of persistent infections in his distal bilateral lower extremities that has worsened over the past week. The patient reports that he was discharged from a 5 week stay in inpatient rehab for the wounds. He states that he was on a course of antibiotics that helped with his infection. He reports that his wounds were completely closed after discharge. He notes that his wounds have reopened and are causing him pain. He reports that he placed gauze on the wounds and wrapped his lower legs one hour prior to arrival to the Emergency Room. He states that he has an associated fever and alternates between feeling hot and cold. He notes that he vomited yesterday. He reports that he took a Percoset which did not relieve the pain. He states that his left foot hurts as well. He notes that he has had to have the wounds debrided in the past and states that he had to be sedated during the procedure. The patient notes that he is diabetic and takes Metformin daily. He states that he takes blood thinners. He notes that Zosyn and Vancomycin have not helped in the past. He reports that the injury is due to dropping a snow plow on his legs 8 years ago. Home Medications Home Medications Medication Instructions Recorded Confirmed Type albuterol sulfate [Ventolin HFA] 1 puff INHALATION Q4H PRN 05/09/18 03/10/19 History docusate sodium [Colace] 200 mg PO BID 05/09/18 03/10/19 History folic acid 1 mg PO QAM 05/09/18 03/10/19 History omeprazole 20 mg PO BID 05/09/18 03/10/19 History gabapentin 300 mg PO QID 08/16/18 03/10/19 History furosemide [Lasix] 40 mg PO PM 08/20/18 03/10/19 History spironolactone [Aldactone] 100 mg PO QAM 08/20/18 03/10/19 History warfarin 15 mg PO TUTHSA 08/20/18 03/10/19 History fluticasone propion-salmeterol 1 inh INHALATION BID 09/05/18 03/10/19 History [Advair Diskus] warfarin 10 mg PO SUMOWEFR 09/05/18 03/10/19 History metformin 1,000 mg PO BID #60 tab 02/01/19 03/10/19 Rx oxycodone-acetaminophen [Percocet] 1 tab PO Q6H PRN #10 tab 02/01/19 03/10/19 Rx furosemide 40 mg PO QAM 03/10/19 03/10/19 History Allergies Allergy/AdvReac Type Severity Reaction Status Date / Time peas Allergy Severe Swelling Verified 03/10/19 14:07 of Lip/Tongue/Throat Bactrim Allergy Intermediate hives Verified 04/12/18 15:58 sulfamethoxazole Allergy Intermediate hives Verified 03/10/19 14:07 trimethoprim Allergy Intermediate hives Verified 03/10/19 14:07 tuna oil Allergy Unknown . 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, borderline hyperhomocystemia Anxiety (Chronic) MRSA (methicillin resistant Staphylococcus aureus) infection (Chronic) History of ETOH abuse (Chronic) Chronic narcotic use (Chronic) Type 2 diabetes mellitus (Chronic) COPD (chronic obstructive pulmonary disease) (Chronic) Depression (Chronic) Pulmonary nodule (Chronic) CT chest 04/12/18 - 4 mm RUL nodule, f/u 12 months Venous insufficiency (chronic) (peripheral) (Chronic) Anxiety COPD (chronic obstructive pulmonary disease) Cellulitis Chronic deep vein thrombosis (DVT) Chronic narcotic use Chronic ulcer of leg "b/l" Chronic venous stasis dermatitis of both lower extremities Depression GERD (gastroesophageal reflux disease) HTN (hypertension) History of ETOH abuse Hypercoagulable state On 04/12/18 14:03 Yanira Martinez wrote "Prothrombin Factor II Mutation, 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 Chaudhari History of drainage of abscess [address] 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, boderline hyperhomocystemia Social History Preferred Language: Khmer Communication Ability: Effective Visual Impairment: No Limitations Hearing Ability: Normal Beliefs That Will Affect Care: None marital status: Single Current Living Situation: Alone Other Information That Helps Us Care for You: No Feels Safe at Home: Yes Safety Concerns: Feels Safe At This Time Smoking Status: Current every day smoker Tobacco Type: cigarettes Cigarettes Per Day: 10 Do You Dip or Chew Tobacco: No Second Hand Exposure: No Hx Alcohol Use: Yes Alcohol type: beer Alcohol Intake Frequency Comment: Pt reports quit drinking end of 07/2018 Hx Substance Use: No Review of Systems See HPI for pertinent positives & negatives. and A total of 10 systems reviewed and were otherwise negative Physical Exam Vital Signs Vital Signs - 24 hr 03/10/19 13:11 Temperature 37.0 C Temperature Source Oral Sepsis Recent Fever Within 48 Hours No Sepsis New/Unexplained Change in Mental Status Yes Sepsis Action Taken by Nursing No Action Required Pulse Rate 114 H Pulse Rhythm Regular Respiratory Rate 20 Respiratory Effort / Characteristics Non-Labored Spontaneous Respiratory Depth Normal Respiratory Pattern Regular Blood Pressure 157/89 H Blood Pressure Mean 111 Blood Pressure Position Sitting Pulse Oximetry 97 Oxygen Delivery Method Room Air Vital signs reviewed. General: Well-appearing male, in no significant distress. HEENT: No scleral icterus, PERRLA, neck supple. Atraumatic. Cardiovascular: Tachycardic rate and regular rhythm, no extra sounds. Pulmonary: Clear to auscultation bilaterally, normal work of breathing. Abdomen: Soft, nontender, nondistended, positive bowel sounds. Musculoskeletal: Atraumatic, no peripheral edema. Lower Extremities: Bilateral distal lower extremity necrotic wounds. Strong odor. Multiple open ulcerations to the bilateral legs. No bleeding or drainage. Significant macerated appearing tissue. Feet are somewhat edematous and erythematous. Neurologic: Patient awake alert and oriented x 3. Skin: Warm, dry, no rash Course 1343:The patient was evaluated in room A09B. A complete history and physical examination was performed. 1525: Pt updated on results. Yanira Martinez PA-C has accepted the pt on behalf of Dr. Azul. Administered Medications Docusate Sodium (Colace) 200 mg PO BID [facility] Stop: 04/09/19 20:59 Last Admin: 03/12/19 07:28 Dose: 200 mg Documented by: [id number] Admin: 03/11/19 20:11 Dose: 200 mg Documented by: [id number] Admin: 03/11/19 08:11 Dose: 200 mg Documented by: [id number] Admin: 03/10/19 21:16 Dose: 200 mg Documented by: [id number] Folic Acid (Folvite) 1 mg PO QAM [facility] Stop: 04/10/19 08:59 Last Admin: 03/12/19 07:28 Dose: 1 mg Documented by: [id number] Admin: 03/11/19 08:11 Dose: 1 mg Documented by: [id number] Furosemide (Lasix) 40 mg PO PM [facility] Stop: 04/09/19 20:59 Last Admin: 03/11/19 18:16 Dose: 40 mg Documented by: [id number] Admin: 03/10/19 21:16 Dose: Not Given Documented by: [id number] Furosemide (Lasix) 40 mg PO QAM [facility] Stop: 04/10/19 08:59 Last Admin: 03/12/19 07:28 Dose: 40 mg Documented by: [id number] Admin: 03/11/19 08:12 Dose: 40 mg Documented by: [id number] Gabapentin (Neurontin) 300 mg PO QID [facility] Stop: 04/09/19 20:59 Last Admin: 03/12/19 15:53 Dose: 300 mg Documented by: [id number] Admin: 03/12/19 13:01 Dose: 300 mg Documented by: [id number] Admin: 03/12/19 07:28 Dose: 300 mg Documented by: [id number] Admin: 03/11/19 20:12 Dose: 300 mg Documented by: [id number] Admin: 03/11/19 16:03 Dose: 300 mg Documented by: [id number] Admin: 03/11/19 12:44 Dose: 300 mg Documented by: [id number] Admin: 03/11/19 08:11 Dose: 300 mg Documented by: [id number] Admin: 03/10/19 21:36 Dose: 300 mg Documented by: [id number] Hydroxyzine HCl (Vistaril) 25 mg PO HS PRN PRN Reason: Insomnia Stop: 04/09/19 22:15 Last Admin: 03/10/19 22:37 Dose: 25 mg Documented by: [id number] Heparin Sodium/Dextrose (Heparin Sodium/Dextrose) 25,000 units in 500 mls @ 39 mls/hr IV .[id number] [facility]; Protocol Stop: 04/09/19 20:44 Last Admin: 03/12/19 10:29 Dose: 1,950 units/hr, 39 mls/hr Documented by: [id number] Cosigned by: [id number] Titration: 03/12/19 10:25 Dose: 0 units/hr, 0 mls/hr Documented by: [id number] Cosigned by: [id number] Titration: 03/12/19 08:07 Dose: 1,950 units/hr, 39 mls/hr Documented by: [id number] Cosigned by: [id number] Titration: 03/12/19 07:01 Dose: 1,950 units/hr, 39 mls/hr Documented by: [id number] Cosigned by: [id number] Titration: 03/11/19 23:17 Dose: 1,950 units/hr, 39 mls/hr Documented by: [id number] Cosigned by: [id number] Admin: 03/11/19 21:24 Dose: 1,950 units/hr, 39 mls/hr Documented by: [id number] Cosigned by: [id number] Titration: 03/11/19 21:01 Dose: 1,950 units/hr, 39 mls/hr Documented by: [id number] Cosigned by: [id number] Titration: 03/11/19 15:08 Dose: 1,950 units/hr, 39 mls/hr Documented by: [id number] Cosigned by: [id number] Admin: 03/11/19 08:11 Dose: 1,950 units/hr, 39 mls/hr Documented by: [id number] Cosigned by: [id number] Titration: 03/11/19 08:11 Dose: 1,950 units/hr, 39 mls/hr Documented by: [id number] Cosigned by: [id number] Titration: 03/11/19 07:57 Dose: 1,950 units/hr, 39 mls/hr Documented by: [id number] Cosigned by: [id number] Titration: 03/11/19 07:06 Dose: 1,950 units/hr, 39 mls/hr Documented by: [id number] Cosigned by: [id number] Titration: 03/11/19 01:03 Dose: 1,950 units/hr, 39 mls/hr Documented by: [id number] Cosigned by: [id number] Admin: 03/10/19 21:15 Dose: 1,600 units/hr, 32 mls/hr Documented by: [id number] Cosigned by: [id number] Imipenem/Cilastatin Sodium 500 (mg/ Dextrose) 110 mls @ 100 mls/hr IV Q6H [facility]; Protocol Stop: 03/22/19 14:29 Last Admin: 03/12/19 19:30 Dose: 100 mls/hr Documented by: [id number] Infusion: 03/12/19 15:54 Dose: 0 mls/hr Documented by: [id number] Admin: 03/12/19 14:42 Dose: 100 mls/hr Documented by: [id number] Insulin Aspart (Novolog Flexpen) 0 units SC ACHS [facility] Stop: 04/09/19 20:03 Last Admin: 03/12/19 17:57 Dose: 8 units Documented by: [id number] Cosigned by: [id number] Admin: 03/12/19 12:57 Dose: 11 units Documented by: [id number] Cosigned by: [id number] Admin: 03/12/19 08:45 Dose: 9 units Documented by: [id number] Cosigned by: [id number] Admin: 03/11/19 20:17 Dose: 6 units Documented by: [id number] Cosigned by: [id number] Admin: 03/11/19 18:11 Dose: 9 units Documented by: [id number] Cosigned by: [id number] Admin: 03/11/19 12:44 Dose: 11 units Documented by: [id number] Cosigned by: [id number] Admin: 03/11/19 08:12 Dose: 8 units Documented by: [id number] Cosigned by: [id number] Admin: 03/10/19 21:36 Dose: Not Given Documented by: [id number] Admin: 03/10/19 21:13 Dose: 5 units Documented by: [id number] Cosigned by: [id number] Mirtazapine (Remeron) 15 mg PO HS [facility] Stop: 04/09/19 22:19 Last Admin: 03/11/19 20:12 Dose: 15 mg Documented by: [id number] Admin: 03/10/19 22:37 Dose: 15 mg Documented by: [id number] Morphine Sulfate (Morphine Sulfate) 2 mg IV Q4 PRN PRN Reason: Pain Stop: 03/25/19 11:16 Last Admin: 03/12/19 15:47 Dose: 2 mg Documented by: [id number] Admin: 03/12/19 11:35 Dose: 2 mg Documented by: [id number] Admin: 03/12/19 07:28 Dose: 2 mg Documented by: [id number] Admin: 03/12/19 00:44 Dose: 2 mg Documented by: [id number] Admin: 03/11/19 20:14 Dose: 2 mg Documented by: [id number] Admin: 03/11/19 15:49 Dose: 2 mg Documented by: [id number] Admin: 03/11/19 11:40 Dose: 2 mg Documented by: [id number] Nutritional Formula (Prosource No Carb) 30 ml PO BID [facility] Stop: 04/10/19 20:59 Last Admin: 03/12/19 07:28 Dose: 30 ml Documented by: [id number] Admin: 03/11/19 20:13 Dose: 30 ml Documented by: [id number] Oxycodone/Acetaminophen (Percocet 5mg/325mg) 1 tab PO Q6H PRN PRN Reason: pain Stop: 03/24/19 20:03 Last Admin: 03/12/19 19:31 Dose: 1 tab Documented by: [id number] Admin: 03/12/19 12:59 Dose: 1 tab Documented by: [id number] Admin: 03/12/19 04:49 Dose: 1 tab Documented by: [id number] Admin: 03/11/19 14:13 Dose: 1 tab Documented by: [id number] Admin: 03/11/19 08:12 Dose: 1 tab Documented by: [id number] Admin: 03/10/19 20:54 Dose: 1 tab Documented by: [id number] Pantoprazole Sodium (Protonix) 40 mg PO BID [facility] Stop: 04/09/19 20:59 Last Admin: 03/12/19 07:28 Dose: 40 mg Documented by: [id number] Admin: 03/11/19 20:12 Dose: 40 mg Documented by: [id number] Admin: 03/11/19 08:11 Dose: 40 mg Documented by: [id number] Admin: 03/10/19 21:16 Dose: 40 mg Documented by: [id number] Fluticasone/Salmeterol (Advair Diskus 500/50) 1 puffs INH BID [facility] Stop: 04/09/19 20:59 Last Admin: 03/12/19 07:27 Dose: 1 puffs Documented by: [id number] Admin: 03/11/19 20:11 Dose: 1 puffs Documented by: [id number] Admin: 03/11/19 08:11 Dose: 1 puffs Documented by: [id number] Admin: 03/10/19 21:15 Dose: 1 puffs Documented by: [id number] Spironolactone (Aldactone) 100 mg PO QAM [facility] Stop: 04/10/19 08:59 Last Admin: 03/12/19 07:28 Dose: 100 mg Documented by: [id number] Admin: 03/11/19 08:11 Dose: 100 mg Documented by: [id number] Warfarin Sodium (Coumadin) 10 mg PO [id number] [facility] Stop: 04/09/19 20:03 Last Admin: 03/11/19 16:03 Dose: 10 mg Documented by: [id number] Admin: 03/10/19 21:37 Dose: 10 mg Documented by: [id number] Warfarin Sodium (Coumadin) 15 mg PO [id number]@1600 [facility] Stop: 04/11/19 15:59 Last Admin: 03/12/19 15:52 Dose: 15 mg Documented by: [id number] Discontinued Medications Heparin Sodium (Porcine) (Heparin Sodium (Porcine)) Confirm Administered Dose 10,000 units .ROUTE .STK-MED ONE Stop: 03/10/19 18:03 Last Admin: 03/10/19 18:03 Dose: 7,000 units Documented by: [id number] Cosigned by: [id number] Heparin Sodium/Dextrose () 1 ea IV NOW STA; Protocol Stop: 03/10/19 16:58 Last Admin: 03/10/19 18:09 Dose: Not Given Documented by: [id number] Heparin Sodium/Dextrose (Heparin Sodium/Dextrose) Confirm Administered Dose 25,000 units IV .STK-MED ONE Stop: 03/10/19 17:52 Last Admin: 03/10/19 18:04 Dose: 1,600 units Documented by: [id number] Cosigned by: [id number] Hydromorphone HCl (Dilaudid) 0.5 mg IV NOW STA Stop: 03/10/19 15:17 Last Admin: 03/10/19 15:52 Dose: 0.5 mg Documented by: [id number] Sodium Chloride (Nss 1000ml) 1,000 mls @ 999 mls/hr IV .Q1H1M [facility] Stop: 03/10/19 15:15 Last Infusion: 03/10/19 16:53 Dose: 0 mls/hr Documented by: [id number] Admin: 03/10/19 15:40 Dose: 999 mls/hr Documented by: [id number] Imipenem/Cilastatin Sodium 500 (mg/ Dextrose) 110 mls @ 100 mls/hr IV NOW STA; Protocol Stop: 03/10/19 15:21 Last Infusion: 03/10/19 16:53 Dose: 0 mls/hr Documented by: [id number] Admin: 03/10/19 15:47 Dose: 100 mls/hr Documented by: [id number] Daptomycin 525 mg/ Syringe 10.5 mls @ 5.25 mls/min IV NOW ONE; Protocol Stop: 03/10/19 14:17 Last Admin: 03/10/19 15:45 Dose: 5.25 mls/min Documented by: [id number] Ceftriaxone Sodium 2,000 mg/ (Dextrose) 70 mls @ 140 mls/hr IV Q24H [facility] Stop: 03/20/19 20:59 Last Infusion: 03/11/19 22:45 Dose: 0 mls/hr Documented by: [id number] Admin: 03/11/19 21:52 Dose: 140 mls/hr Documented by: [id number] Infusion: 03/10/19 22:05 Dose: 0 mls/hr Documented by: [id number] Admin: 03/10/19 21:16 Dose: 140 mls/hr Documented by: [id number] Vancomycin HCl 2,750 mg/ (Sodium Chloride) 555 mls @ 200 mls/hr IV NOW STA Stop: 03/10/19 23:36 Last Infusion: 03/11/19 00:50 Dose: 0 mls/hr Documented by: [id number] Infusion: 03/10/19 22:05 Dose: 200 mls/hr Documented by: [id number] Infusion: 03/10/19 21:23 Dose: 0 mls/hr Documented by: [id number] Admin: 03/10/19 21:15 Dose: 200 mls/hr Documented by: [id number] Heparin Sodium (Porcine) 7,000 (units/ Syringe) 7 mls @ 1 mls/min IV ONE ONE Stop: 03/11/19 00:49 Last Admin: 03/11/19 01:03 Dose: 1 mls/min Documented by: [id number] Cosigned by: [id number] Vancomycin HCl 1,500 mg/ (Sodium Chloride) 530 mls @ 200 mls/hr IV Q10H [facility] Stop: 03/21/19 07:59 Last Infusion: 03/12/19 14:36 Dose: 0 mls/hr Documented by: [id number] Admin: 03/12/19 13:48 Dose: 200 mls/hr Documented by: [id number] Infusion: 03/12/19 07:35 Dose: 0 mls/hr Documented by: [id number] Admin: 03/12/19 04:43 Dose: 200 mls/hr Documented by: [id number] Infusion: 03/11/19 21:52 Dose: 0 mls/hr Documented by: [id number] Admin: 03/11/19 18:09 Dose: 200 mls/hr Documented by: [id number] Infusion: 03/11/19 11:06 Dose: 0 mls/hr Documented by: [id number] Admin: 03/11/19 08:16 Dose: 200 mls/hr Documented by: [id number] Cefepime HCl 2,000 mg/ Syringe 20 mls @ 5 mls/min IV Q8H [facility] Stop: 03/22/19 08:59 Last Admin: 03/12/19 09:20 Dose: 5 mls/min Documented by: [id number] Potassium Chloride (Klor-Con M10) 20 meq PO NOW STA Stop: 03/11/19 11:19 Last Admin: 03/11/19 11:45 Dose: 20 meq Documented by: [id number] Medical Decision Making Differential Diagnosis Differential diagnosis: Etiologies such as cellulitis, abscess, MRSA infection, DVT, necrotizing fasciitis, dermatitis, drug eruption, as well as others were entertained. Medical Records Attestation: I reviewed the patient's medical records. Home Medications Current Medication List: was personally reviewed by me Laboratory Data Attestation: I reviewed the patient's lab results. Result diagrams: 03/11/19 06:54 03/11/19 06:54 Lab Results 03/10/19 03/10/19 03/10/19 Range/Units 14:22 14:22 14:22 WBC 6.68 (4.8-10.8) K/uL RBC 4.34 L (4.7-6.1) M/uL Hgb 13.0 L (14.0-18.0) g/dL Hct 37.8 L (42-52) % MCV 87.1 (80-100) fL MCH 30.0 (25-34) pg MCHC 34.4 (32-36) g/dL RDW Std Deviation 55.8 H (36.4-46.3) fL RDW Coeff of Kip 17.7 H (11.5-14.5) % Plt Count 142 (130-400) K/uL MPV 9.7 (7.4-10.4) fL Immature Gran % (Auto) 0.3 % Neut % (Auto) 75.6 % Lymph % (Auto) 12.7 % [place] % (Auto) 10.3 % Eos % (Auto) 0.7 % Baso % (Auto) 0.4 % Immature Gran # (Auto) 0.02 (0.00-0.02) K/uL Neut # (Auto) 5.04 (1.4-6.5) K/uL Lymph # (Auto) 0.85 L (1.2-3.4) K/uL [place] # (Auto) 0.69 H (0.11-0.59) K/uL Eos # (Auto) 0.05 (0-0.5) K/uL Baso # (Auto) 0.03 (0-0.2) K/uL PT (9.0-12.0) Seconds INR (0.9-1.1) Sodium 136 (136-145) mmol/L Potassium 3.6 (3.5-5.1) mmol/L Chloride 102 (98-107) mmol/L Carbon Dioxide 27 (21-32) mmol/L Anion Gap 8.0 (3-11) BUN 6 L (7-18) mg/dl Creatinine 1.05 (0.6-1.4) mg/dl Est Cr Clr Drug Dosing 112.3 ml/min Est GFR ( Amer) 99.6 Est GFR (Non-Af Amer) 85.9 BUN/Creatinine Ratio 5.3 L (10-20) Glucose 204 H (70-99) mg/dl Lactate 1.4 (0.4-2.0) mmol/L Calcium 9.1 (8.5-10.1) mg/dl Total Bilirubin 1.1 H (0.2-1) mg/dl AST 25 (15-37) U/L ALT 47 (12-78) U/L Alkaline Phosphatase 113 (45-117) U/L Total Protein 9.2 H (6.4-8.2) gm/dl Albumin 3.6 (3.4-5.0) gm/dl Globulin 5.6 H (2.5-4.0) gm/dl Albumin/Globulin Ratio 0.6 L (0.9-2) 03/10/19 Range/Units 14:26 WBC (4.8-10.8) K/uL RBC (4.7-6.1) M/uL Hgb (14.0-18.0) g/dL Hct (42-52) % MCV (80-100) fL MCH (25-34) pg MCHC (32-36) g/dL RDW Std Deviation (36.4-46.3) fL RDW Coeff of Kip (11.5-14.5) % Plt Count (130-400) K/uL MPV (7.4-10.4) fL Immature Gran % (Auto) % Neut % (Auto) % Lymph % (Auto) % [place] % (Auto) % Eos % (Auto) % Baso % (Auto) % Immature Gran # (Auto) (0.00-0.02) K/uL Neut # (Auto) (1.4-6.5) K/uL Lymph # (Auto) (1.2-3.4) K/uL [place] # (Auto) (0.11-0.59) K/uL Eos # (Auto) (0-0.5) K/uL Baso # (Auto) (0-0.2) K/uL PT 11.5 (9.0-12.0) Seconds INR 1.1 (0.9-1.1) Sodium (136-145) mmol/L Potassium (3.5-5.1) mmol/L Chloride (98-107) mmol/L Carbon Dioxide (21-32) mmol/L Anion Gap (3-11) BUN (7-18) mg/dl Creatinine (0.6-1.4) mg/dl Est Cr Clr Drug Dosing ml/min Est GFR ( Amer) Est GFR (Non-Af Amer) BUN/Creatinine Ratio (10-20) Glucose (70-99) mg/dl Lactate (0.4-2.0) mmol/L Calcium (8.5-10.1) mg/dl Total Bilirubin (0.2-1) mg/dl AST (15-37) U/L ALT (12-78) U/L Alkaline Phosphatase (45-117) U/L Total Protein (6.4-8.2) gm/dl Albumin (3.4-5.0) gm/dl Globulin (2.5-4.0) gm/dl Albumin/Globulin Ratio (0.9-2) Blood Pressure Blood Pressure Findings: Elevated blood pressure Blood Pressure Disposition: elevated BP felt to be situational MDM Narrative This pt was evaluated and appeared to be in no distress. HE was requesting pain medication. IVF were initiated d/t tachycardia. Blood cx and lactate were drawn. WBC is WNL and lactate is 1.4. Pt was covered with IV daptomycin and imipenem based on previous cx results. Pt was given IV dilaudid and zofran for discomforts. Case was d/w the hospitalist service for further management. 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 I confirm that the note above accurately reflects all work, treatment, procedures, and medical decision making performed by me.
[2019-03-10] MEDS ORDERED: HYDROmorphone INJ 0.5 MG/0.5 ML SYR IV STA (15:16)
[2019-03-10 16:18] LABS: INR 1.1 (0.9-1.1); Prothrombin Time 11.5 Seconds (9.0-12.0)
--- NOTE | 2019-03-10 16:24 | History & Physical Report ---
Date of Service March 10, 2019 Assessment & Plan (1) Cellulitis of both lower extremities: Chronic bilateral lower extremity cellulitis/wound infection leading to multiple inpatient admission Wound culture on 10/2018: Was positive for MRSA and E. coli In the past patient was treated with IV ceftaroline Presents with worsening of lower extremity draining wound, cellulitis No evidence of sepsis, no temperature/fever normal white count Wound culture, blood culture obtained We will start empiric antibiotic with IV Rocephin, IV vancomycinhistory of MRSA ID evaluation requested patient is known to Dr. Perez and Dr. Acevedo Wound care nurse consulted (2) History of MRSA infection: History of MRSA lower extremity wound infection, Ordered for vancomycin Follow wound culture Contact isolation (3) Type 2 diabetes mellitus: Will hold metformin while inpatient Insulin sliding scale ordered Hemoglobin A1c in a.m. lab (4) COPD (chronic obstructive pulmonary disease): Stable, no evidence of shortness of breath wheeze or cough Continue outpatient DuoNeb as needed and Advair (5) Chronic deep vein thrombosis (DVT): History of hypercoagulable status with recurrent lower extremity DVT INR is subtherapeutic 1 Patient reports he had not been able to keep food down for nausea vomiting has not been able to take his Coumadin for the past 3 days Coumadin resumed Started on IV heparin bridge therapy (6) Hypercoagulable state: Heterozygous MTHFR mutation With history of recurrent DVT INR subtherapeutic, not been able to take Coumadin for the past 2 to 3 days Coumadin resumed with IV heparin bridge therapy, goal INR 2-3 (7) Tobacco abuse: Smoking cessation counseling provided (8) Cirrhosis: History of alcohol abuse leading to chronic liver disease/alcoholic cirrhosis No evidence of decompensation, Continued Lasix Aldactone, low-salt diet Patient reports he had not drank alcohol for the past 1 year (9) Subtherapeutic international normalized ratio (INR): INR 1.0 today, has not been taking Coumadin for a few days secondary to acute illness History of hypercoagulable status with history of DVT Coumadin with IV heparin bridge CODE STATUS: Full code Disposition: To be determined, Recently discharged from the rehab PT OT evaluation requested Social service consult for discharge planning History of Present Illness Primary Care Provider: Gareth Lin MD This is a 43-year-old male with a complex past medical history of heterozygous MTHFR mutation, hemosiderosis, type 2 diabetes, COPD, chronic deep vein thrombosis of femoral vein, on chronic anticoagulation on Coumadin, venous insufficiency, alcoholic liver cirrhosis with ascites, chronic venous stasis ulcer of bilateral legs, thrombocytopenia, depression, tobacco use disorder, admitted with worsening of bilateral lower extremity wound/cellulitis with foul- smelling drainage. Patient had multiple admission in hospital for recurrent lower extremity cellulitis Last discharged from hospital to rehab on [facility] on 02/01/2019 With atrophy IV ceftaroline 600 mg every 12 hours for 4 weeks Patient was discharged from rehab a week ago,-lower extremity wounds reportedly was completely healed For the past few days patient noted, increased drainage, pain, discoloration of bilateral lower extremity Did not had fever, had intermittent chills and Rigor Presented with worsening of bilateral lower extremity open wounds and cellulitis Allergies Allergy/AdvReac Type Severity Reaction Status Date / Time peas Allergy Severe Swelling Verified 03/10/19 14:07 of Lip/Tongue/Throat Bactrim Allergy Intermediate hives Verified 04/12/18 15:58 sulfamethoxazole Allergy Intermediate hives Verified 03/10/19 14:07 trimethoprim Allergy Intermediate hives Verified 03/10/19 14:07 tuna oil Allergy Unknown . Verified 03/10/19 14:07 Home Medications Home Medications Medication Instructions Recorded Confirmed Type albuterol sulfate [Ventolin HFA] 1 puff INHALATION Q4H PRN 05/09/18 03/10/19 History docusate sodium [Colace] 200 mg PO BID 05/09/18 03/10/19 History folic acid 1 mg PO QAM 05/09/18 03/10/19 History omeprazole 20 mg PO BID 05/09/18 03/10/19 History gabapentin 300 mg PO QID 08/16/18 03/10/19 History furosemide [Lasix] 40 mg PO PM 08/20/18 03/10/19 History spironolactone [Aldactone] 100 mg PO QAM 08/20/18 03/10/19 History warfarin 15 mg PO TUTHSA 08/20/18 03/10/19 History fluticasone propion-salmeterol 1 inh INHALATION BID 09/05/18 03/10/19 History [Advair Diskus] warfarin 10 mg PO SUMOWEFR 09/05/18 03/10/19 History metformin 1,000 mg PO BID #60 tab 02/01/19 03/10/19 Rx oxycodone-acetaminophen [Percocet] 1 tab PO Q6H PRN #10 tab 02/01/19 03/10/19 Rx furosemide 40 mg PO QAM 03/10/19 03/10/19 History Past Med/Surg History Medical History GERD (gastroesophageal reflux disease) (Chronic) Tobacco abuse (Chronic) Chronic ulcer of lower extremity (Chronic) bilateral Chronic venous stasis dermatitis of both lower extremities (Chronic) Hypercoagulable state (Chronic) Prothrombin Factor II Mutation, 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, borderline hyperhomocystemia Anxiety (Chronic) MRSA (methicillin resistant Staphylococcus aureus) infection (Chronic) History of ETOH abuse (Chronic) Chronic narcotic use (Chronic) Type 2 diabetes mellitus (Chronic) COPD (chronic obstructive pulmonary disease) (Chronic) Depression (Chronic) Pulmonary nodule (Chronic) CT chest 04/12/18 - 4 mm RUL nodule, f/u 12 months Venous insufficiency (chronic) (peripheral) (Chronic) Anxiety COPD (chronic obstructive pulmonary disease) Cellulitis Chronic deep vein thrombosis (DVT) Chronic narcotic use Chronic ulcer of leg "b/l" Chronic venous stasis dermatitis of both lower extremities Depression GERD (gastroesophageal reflux disease) HTN (hypertension) History of ETOH abuse Hypercoagulable state On 04/12/18 14:03 Yanira Martinez wrote "Prothrombin Factor II Mutation, 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 Chaudhari History of drainage of abscess [address] 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, boderline hyperhomocystemia Social History Preferred Language: Romansh Communication Ability: Effective Visual Impairment: No Limitations Hearing Ability: Normal Beliefs That Will Affect Care: None marital status: Single Current Living Situation: Alone Other Information That Helps Us Care for You: No Feels Safe at Home: Yes Safety Concerns: Feels Safe At This Time Smoking Status: Current every day smoker Tobacco Type: cigarettes Cigarettes Per Day: 10 Do You Dip or Chew Tobacco: No Second Hand Exposure: No Hx Alcohol Use: Yes Alcohol type: beer Alcohol Intake Frequency Comment: Pt reports quit drinking end of 07/2018 Hx Substance Use: No Physical Exam Constitutional: WD/WN, vitals as above + ill appearing; no acute distress Eyes: + anicteric sclerae ENMT: external ear and nose normal, oropharynx normal Neck: trachea midline, no thyromegaly Respiratory: normal respiratory effort, lungs clear to auscultation Cardiovascular: Rate/Rhythm: regular rate and regular rhythm Gastrointestinal (Abdomen): normal bowel sounds, soft, nontender, no hepatosplenomegaly Musculoskeletal: Extensive bilateral lower extremity wound from knee to ankle, extensive skin loss with yellow discoloration noted in multiple area, multiple open wounds with foul-smelling drainage Skin: + ulcer (Bilateral lower extremity) and + wound (Bilateral lower extremity) Extensive bilateral lower extremity open wound from below the knee, with foul-smelling drainage Neurologic: PERRL, EOMI, accommodation nl, no face palsy, no dysarthria Psychiatric: A+Ox3, euthymic affect Results & Data Vital Signs (Past 12 Hours) Vital Signs Temp Pulse Pulse Resp BP BP Pulse Ox 03/10/19 15:53 98 H 22 142/81 H 97 03/10/19 13:11 37.0 C 114 H 20 157/89 H 97 (1) Type 2 diabetes mellitus Diabetes mellitus fdc insulin use: without fdc use (2) Cirrhosis Ascites presence: unspecified Hepatic cirrhosis type: alcoholic cirrhosis Qualified Code(s): K70.30 - Alcoholic cirrhosis of liver without ascites (3) Chronic deep vein thrombosis (DVT) Affected thrombotic vein of extremity: unspecified vein of extremity DVT location: lower extremity Laterality: right Qualified Code(s): I82.501 - Chronic embolism and thrombosis of unspecified deep veins of right lower extremity (4) COPD (chronic obstructive pulmonary disease) COPD type: unspecified COPD Qualified Code(s): J44.9 - Chronic obstructive pulmonary disease, unspecified
[2019-03-10] MEDS ORDERED: HEPARIN 25000 UNIT/500 ML D5W IV ONE (17:51)
[2019-03-10] MEDS ORDERED: HEPARIN SOD 5,000 UNIT/0.5 ML VIAL ONE (18:02)
--- NOTE | 2019-03-10 19:43 | Ultrasound Report ---
ULTRASOUND BILATERAL LOWER EXTREMITY VENOUS CLINICAL HISTORY: Subtherapeutic INR. History of deep venous thrombosis. Lower extremity wound. COMPARISON STUDY: Lower extremity venous ultrasound dated 11/27/2018. TECHNIQUE: Real-time, grayscale, and color Doppler sonography of the deep veins of the right and left lower extremity was performed from the inguinal crease to the calf. Compression and augmentation wer e utilized. FINDINGS: There is no sonographic evidence of acute deep venous thrombosis identified in the right or left lower extremity. There is mild stranding/scarring consistent with chronic deep venous thrombosi s seen within both legs. This is similar to previous. The common femoral, superficial femoral, and po pliteal veins are patent and normally compressible bilaterally. The greater saphenous vein and the pr ofunda femoris vein at the junction with the common femoral vein are clear in both legs. The visualiz ed calf veins are patent bilaterally. There are mildly enlarged bilateral inguinal lymph nodes, likel y on a reactive basis. IMPRESSION: 1. There is no sonographic evidence of acute deep venous thrombosis identified in the right or left l ower extremity. 2. Chronic stranding/scarring is identified within the deep veins of both legs consistent with previo us deep venous thrombosis. This is unchanged prior studies. 3. Mildly enlarged inguinal lymph nodes are likely on a reactive basis. Clinical correlation will be required. Electronically signed by: Emil Morelos M.D. 03/10/2019 7:42 PM
[2019-03-10] MEDS ORDERED: POLYETHYLENE (MIRALAX) 17 GM PACK PO PRN (20:04)
[2019-03-10] MEDS ORDERED: VANCOMYCIN CONSULT ACTIVE PRN (20:04)
[2019-03-10] MEDS ORDERED: VANCOMYCIN HCL 1,000 MG in SODIUM CHLORIDE 0.9% 250 ML IV SCH (20:04)
[2019-03-10] MEDS ORDERED: CARBOHYDRATES FOR HYPOGLYCEMIA PO PRN (20:04)
[2019-03-10] MEDS ORDERED: ALBUTEROL HFA 8 GM INHALER INH PRN (20:04)
[2019-03-10] MEDS ORDERED: cefTRIAXone SODIUM 1,000 MG in DEXTROSE 5% 50 ML IV SCH (20:04)
[2019-03-10] MEDS ORDERED: GLUCAGON FOR INJ 1 MG VIAL SQ PRN (20:04)
[2019-03-10] MEDS ORDERED: ALUMINUM/MAGNESIUM SUSP 30 ML UDC PO PRN (20:04)
[2019-03-10] MEDS ORDERED: GLUCOSE 10 TABS/TUBE PO PRN (20:04)
[2019-03-10] MEDS ORDERED: ONDANSETRON INJ 2 MG/ML 2 ML VIAL IV PRN (20:04)
[2019-03-10] MEDS ORDERED: DEXTROSE 50% 50 ML SYRINGE IV PRN (20:04)
[2019-03-10] MEDS ORDERED: ACETAMINOPHEN 325 MG TAB PO PRN (20:04)
[2019-03-10] MEDS ORDERED: MAGNESIUM HYDROXIDE SUSP 30 ML UDC PO PRN (20:04)
[2019-03-10] MEDS ORDERED: GLUCOSE 40% GEL 15 GM TUBE PO PRN (20:04)
[2019-03-10] MEDS ORDERED: VANCOMYCIN HCL 2,750 MG in SODIUM CHLORIDE 0.9% 500 ML IV STA (20:50)
[2019-03-10] MEDS: OXYCODONE/ACETAMINOPHEN 5mg/325mg TAB PO PRN (20:54)
[2019-03-10] MEDS: INSULIN ASPART 100 UNITS/ML 3 ML PEN SC SCH ×2 (21:13→21:36)
[2019-03-10] MEDS: FLUTICASONE/SALMETEROL (ADVAIR) 500/50 INH 14 PUFF INH SCH (21:15)
[2019-03-10] MEDS: Heparin Adult STANDARD Wt-Based Dextrose 5% 25,000 units/500 mL IV SCH (21:15)
[2019-03-10] MEDS: FUROSEMIDE 40 MG TAB PO SCH (21:16)
[2019-03-10] MEDS: PANTOprazole 40 MG TAB PO SCH (21:16)
[2019-03-10] MEDS: cefTRIAXone SODIUM 2,000 MG in DEXTROSE 5% 50 ML IV SCH (21:16)
[2019-03-10] MEDS: DOCUSATE SODIUM 100 MG CAP PO SCH (21:16)
[2019-03-10] MEDS: GABAPENTIN 300 MG CAP PO SCH (21:36)
[2019-03-10] MEDS: WARFARIN SOD 10 MG TAB PO SCH (21:37)
[2019-03-10] MEDS: MIRTAZAPINE TAB 15 MG TAB PO SCH (22:37)
[2019-03-11 00:42] LABS: Partial Thromboplastin Ratio 1.2; Partial Thromboplastin Time 33.6 Seconds (21.0-31.0)
[2019-03-11] MEDS ORDERED: HEPARIN IV BOLUS 7,000 UNITS in SYRINGE 0 ML IV ONE (00:48)
[2019-03-11 07:17] LABS: Hemoglobin 11.3 g/dL (14.0-18.0); Mean Corpuscular Hgb Conc 32.3 g/dL (32-36); Mean Corpuscular Volume 88.4 fL (80-100); Mean Platelet Volume 10.2 fL (7.4-10.4); Platelet Count 122 K/uL (130-400); RDW Coefficient of Variation 17.7 % (11.5-14.5); RDW Standard Deviation 56.3 fL (36.4-46.3); Red Blood Count 3.96 M/uL (4.7-6.1); White Blood Count 3.48 K/uL (4.8-10.8)
[2019-03-11 07:37] LABS: BUN Creatinine Ratio 5.9 (10-20); Calcium 7.9 mg/dl (8.5-10.1); Creatinine Clr Calc Pharmacy 155.2 ml/min; Est GFR (African American) 128.6; Potassium 3.4 mmol/L (3.5-5.1)
[2019-03-11 07:45] LABS: INR 1.1 (0.9-1.1); Partial Thromboplastin Ratio 1.7; Prothrombin Time 11.4 Seconds (9.0-12.0)
[2019-03-11 07:49] LABS: Estimated Average Glucose 189 mg/dl; Hemoglobin A1C 8.2 % (4.5-5.6)
[2019-03-11 07:56] LABS: Partial Thromboplastin Time 46.9 Seconds (21.0-31.0)
[2019-03-11] MEDS ORDERED: VANCOMYCIN HCL 1,500 MG in SODIUM CHLORIDE 0.9% 500 ML IV SCH (08:00)
[2019-03-11] MEDS: DOCUSATE SODIUM 100 MG CAP PO SCH ×2 (08:11→20:11)
[2019-03-11] MEDS: FOLIC ACID 1 MG TAB PO SCH (08:11)
[2019-03-11] MEDS: FLUTICASONE/SALMETEROL (ADVAIR) 500/50 INH 14 PUFF INH SCH ×2 (08:11→20:11)
[2019-03-11] MEDS: SPIRONOLACTONE 100 MG TAB PO SCH (08:11)
[2019-03-11] MEDS: PANTOprazole 40 MG TAB PO SCH ×2 (08:11→20:12)
[2019-03-11] MEDS: GABAPENTIN 300 MG CAP PO SCH ×4 (08:11→20:12)
[2019-03-11] MEDS: Heparin Adult STANDARD Wt-Based Dextrose 5% 25,000 units/500 mL IV SCH ×2 (08:11→21:24)
[2019-03-11] MEDS: FUROSEMIDE 40 MG TAB PO SCH ×2 (08:12→18:16)
[2019-03-11] MEDS: OXYCODONE/ACETAMINOPHEN 5mg/325mg TAB PO PRN ×2 (08:12→14:13)
[2019-03-11] MEDS: INSULIN ASPART 100 UNITS/ML 3 ML PEN SC SCH ×4 (08:12→20:17)
[2019-03-11] MEDS: VANCOMYCIN HCL 1,500 MG in SODIUM CHLORIDE 0.9% 500 ML IV SCH ×2 (08:16→18:09)
--- NOTE | 2019-03-11 09:09 | Pharmacy Report ---
Pharmacy Abx Dose Short Note - Date of Service March 11, 2019 - Assessment & Plan A/P Vancomycin 1500mg (13mg/kg) q10 started overnight. Will order a trough for 03/12/19 @1330, goal trough until CONNIE/sensitivities result for SST will be 15- 20mcg/mL. Pt's habitus certainly places him at a risk for vanco accumulation. Pharmacy will continue to follow and will adjust dose/frequency as necessary. Thank you.
--- NOTE | 2019-03-11 11:08 | Infectious Disease Consult ---
Date of Consultation March 11, 2019 Assessment & Plan (1) Cellulitis of both lower extremities: continue current abx and follow wound culture results. consider wound care eval. will follow. History of Present Illness Attending Physician: Sarai Donaldson MD pt admitted due to drainage and increased pain in both legs L>R. He has had multiple hospitalizations for the same, most recently in early January, he has been treated in the past with Ceftaroline with good response, most recent culture from 01/15 grew E. coli and MRSA. Cutlures obtained in ER growing strep species and multiple gnr. He was placed on vanco and rocephin, he is requesting change to ceftaroline. afebrile, denies f/c at home. wbc 3.4, Doppler negative for acute clot, has h/o dvt. Blood cultures pending. tolerating abx well. Denies cp, sob, cough, matthews, no n/v/d/abd pain, no gu symptoms. States he has been off of abx for 2-3 weeks. no dressings being done on legs prior to admission, does admit to pain in both legs, but more in left. Allergies Allergy/AdvReac Type Severity Reaction Status Date / Time peas Allergy Severe Swelling Verified 03/10/19 14:07 of Lip/Tongue/Throat Bactrim Allergy Intermediate hives Verified 04/12/18 15:58 sulfamethoxazole Allergy Intermediate hives Verified 03/10/19 14:07 trimethoprim Allergy Intermediate hives Verified 03/10/19 14:07 tuna oil Allergy Unknown . Verified 03/10/19 14:07 Home Medications Home Medications Medication Instructions Recorded Confirmed Type albuterol sulfate [Ventolin HFA] 1 puff INHALATION Q4H PRN 05/09/18 03/10/19 History docusate sodium [Colace] 200 mg PO BID 05/09/18 03/10/19 History folic acid 1 mg PO QAM 05/09/18 03/10/19 History omeprazole 20 mg PO BID 05/09/18 03/10/19 History gabapentin 300 mg PO QID 08/16/18 03/10/19 History furosemide [Lasix] 40 mg PO PM 08/20/18 03/10/19 History spironolactone [Aldactone] 100 mg PO QAM 08/20/18 03/10/19 History warfarin 15 mg PO TUTHSA 08/20/18 03/10/19 History fluticasone propion-salmeterol 1 inh INHALATION BID 09/05/18 03/10/19 History [Advair Diskus] warfarin 10 mg PO SUMOWEFR 09/05/18 03/10/19 History metformin 1,000 mg PO BID #60 tab 02/01/19 03/10/19 Rx oxycodone-acetaminophen [Percocet] 1 tab PO Q6H PRN #10 tab 02/01/19 03/10/19 Rx furosemide 40 mg PO QAM 03/10/19 03/10/19 History Patient History Medical History GERD (gastroesophageal reflux disease) (Chronic) Tobacco abuse (Chronic) Chronic ulcer of lower extremity (Chronic) bilateral Chronic venous stasis dermatitis of both lower extremities (Chronic) Hypercoagulable state (Chronic) Prothrombin Factor II Mutation, 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, borderline hyperhomocystemia Anxiety (Chronic) MRSA (methicillin resistant Staphylococcus aureus) infection (Chronic) History of ETOH abuse (Chronic) Chronic narcotic use (Chronic) Type 2 diabetes mellitus (Chronic) COPD (chronic obstructive pulmonary disease) (Chronic) Depression (Chronic) Pulmonary nodule (Chronic) CT chest 04/12/18 - 4 mm RUL nodule, f/u 12 months Venous insufficiency (chronic) (peripheral) (Chronic) Anxiety COPD (chronic obstructive pulmonary disease) Cellulitis Chronic deep vein thrombosis (DVT) Chronic narcotic use Chronic ulcer of leg "b/l" Chronic venous stasis dermatitis of both lower extremities Depression GERD (gastroesophageal reflux disease) HTN (hypertension) History of ETOH abuse Hypercoagulable state On 04/12/18 14:03 Yanira Martinez wrote "Prothrombin Factor II Mutation, 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 Chaudhari History of drainage of abscess [address] 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, boderline hyperhomocystemia Social History Preferred Language: Uzbek Communication Ability: Effective Visual Impairment: No Limitations Hearing Ability: Normal Beliefs That Will Affect Care: None marital status: Single Current Living Situation: Alone Other Information That Helps Us Care for You: No Feels Safe at Home: Yes Safety Concerns: Feels Safe At This Time Smoking Status: Current every day smoker Tobacco Type: cigarettes Cigarettes Per Day: 10 Do You Dip or Chew Tobacco: No Second Hand Exposure: No Hx Alcohol Use: Yes Alcohol type: beer Alcohol Intake Frequency Comment: Pt reports quit drinking end of 07/2018 Hx Substance Use: No Review of Systems Review of Systems: All systems reviewed & are unremarkable except as noted in HPI & below Physical Exam Constitutional: WD/WN, vitals as above Eyes: PERRL, conjunctivae normal, anicteric sclerae ENMT: external ear and nose normal, oropharynx normal Neck: normal visual inspection Respiratory: normal respiratory effort, lungs clear to auscultation Cardiovascular: RRR, no murmur, no edema Gastrointestinal (Abdomen): normal bowel sounds, soft, nontender, no hepatosplenomegaly Musculoskeletal: no cyanosis or clubbing, extremities motor strength 5/5 Skin: no rashes, warm and dry b/l le with chronic changes, erythema, no warmth, edema b/l, foul smelling, necrotic tissue noted, no purulnet drainage noted Psychiatric: A+Ox3, euthymic affect Results & Data Vital Signs (Past 12 Hours) Vital Signs Temp Pulse Resp BP Pulse Ox 03/11/19 07:25 36.9 C 77 20 111/74 93 Laboratory Results Microbiology 03/10/19 14:53 Leg,Left Gram Stain - Final 03/10/19 14:53 Leg,Left Wound Culture - Preliminary Gram negative bacilli Gram negative bacilli#2 Gram negative bacilli#3 Streptococcus species 03/10/19 14:53 Leg,Right Gram Stain - Final 03/10/19 14:53 Leg,Right Wound Culture - Preliminary Gram negative bacilli Gram negative bacilli#2
[2019-03-11] MEDS ORDERED: POTASSIUM CHLORIDE 10 MEQ TABCR PO STA (11:18)
[2019-03-11] MEDS: MoRPHine SULFATE 2 MG/ML CARP IV PRN ×3 (11:40→20:14)
[2019-03-11] MEDS: WARFARIN SOD 10 MG TAB PO SCH (16:03)
--- NOTE | 2019-03-11 17:41 | Hospitalist Progress Note ---
Date of Service March 11, 2019 Assessment & Plan (1) Cellulitis of both lower extremities: Chronic bilateral lower extremity cellulitis/wound infection leading to multiple inpatient admission Wound culture on 10/2018: Was positive for MRSA and E. coli In the past patient was treated with IV ceftaroline Presents with worsening of lower extremity draining wound, cellulitis No evidence of sepsis, no temperature/fever normal white count Wound culture, blood culture obtained We will start empiric antibiotic with IV Rocephin, IV vancomycinhistory of MRSA ID evaluation requested patient is known to Dr. Perez and Dr. Acevedo Appreciate ID IV consult, recommend continue IV Rocephin vancomycin culture is available Wound care nurse consulted appreciate input (2) History of MRSA infection: History of MRSA lower extremity wound infection, Ordered for vancomycin Follow wound culture Contact isolation (3) Type 2 diabetes mellitus: Will hold metformin while inpatient Insulin sliding scale ordered Hemoglobin A1c in a.m. lab (4) COPD (chronic obstructive pulmonary disease): Stable, no evidence of shortness of breath wheeze or cough Continue outpatient DuoNeb as needed and Advair (5) Chronic deep vein thrombosis (DVT): History of hypercoagulable status with recurrent lower extremity DVT INR is subtherapeutic 1 Patient reports he had not been able to keep food down for nausea vomiting has not been able to take his Coumadin for the past 3 days Coumadin resumed Started on IV heparin bridge therapy IV heparin will be discontinued when INR 2 (6) Hypercoagulable state: Heterozygous MTHFR mutation With history of recurrent DVT INR subtherapeutic, not been able to take Coumadin for the past 2 to 3 days Coumadin resumed with IV heparin bridge therapy, goal INR 2-3 (7) Tobacco abuse: Smoking cessation counseling provided (8) Cirrhosis: History of alcohol abuse leading to chronic liver disease/alcoholic cirrhosis No evidence of decompensation, Continued Lasix Aldactone, low-salt diet Patient reports he had not drank alcohol for the past 1 year (9) Subtherapeutic international normalized ratio (INR): INR 1.0 today, has not been taking Coumadin for a few days secondary to acute illness History of hypercoagulable status with history of DVT Coumadin with IV heparin bridge CODE STATUS: Full code Disposition: To be determined, Recently discharged from the rehab PT OT evaluation requested Social service consult for discharge planning Subjective Complaints of her lower extremity pain discomfort requiring multiple dose of IV morphine Physical Exam Constitutional: WD/WN, vitals as above + ill appearing; no acute distress Eyes: + anicteric sclerae ENMT: external ear and nose normal, oropharynx normal Neck: trachea midline, no thyromegaly Respiratory: normal respiratory effort, lungs clear to auscultation Cardiovascular: Rate/Rhythm: regular rate and regular rhythm Gastrointestinal (Abdomen): normal bowel sounds, soft, nontender, no hepatosplenomegaly Skin: + ulcer (Bilateral lower extremity) and + wound (Bilateral lower extremity) Neurologic: PERRL, EOMI, accommodation nl, no face palsy, no dysarthria Psychiatric: A+Ox3, euthymic affect Results & Data Vital Signs (Past 12 Hours) Vital Signs Temp Pulse Resp BP Pulse Ox 03/11/19 15:24 36.6 C 81 20 108/76 96 03/11/19 07:25 36.9 C 77 20 111/74 93 (1) Type 2 diabetes mellitus Diabetes mellitus joint terminal attack controller insulin use: without senior care use (2) Cirrhosis Ascites presence: unspecified Hepatic cirrhosis type: alcoholic cirrhosis Qualified Code(s): K70.30 - Alcoholic cirrhosis of liver without ascites (3) Chronic deep vein thrombosis (DVT) Affected thrombotic vein of extremity: unspecified vein of extremity DVT location: lower extremity Laterality: right Qualified Code(s): I82.501 - Chronic embolism and thrombosis of unspecified deep veins of right lower extremity (4) COPD (chronic obstructive pulmonary disease) COPD type: unspecified COPD Qualified Code(s): J44.9 - Chronic obstructive pulmonary disease, unspecified
[2019-03-11] MEDS: MIRTAZAPINE TAB 15 MG TAB PO SCH (20:12)
[2019-03-11] MEDS: PROSOURCE NO CARB 30 ML/PKT PO SCH (20:13)
[2019-03-11] MEDS: cefTRIAXone SODIUM 2,000 MG in DEXTROSE 5% 50 ML IV SCH (21:52)
[2019-03-12] MEDS: MoRPHine SULFATE 2 MG/ML CARP IV PRN ×5 (00:44→21:52)
[2019-03-12] MEDS: VANCOMYCIN HCL 1,500 MG in SODIUM CHLORIDE 0.9% 500 ML IV SCH ×2 (04:43→13:48)
[2019-03-12] MEDS: OXYCODONE/ACETAMINOPHEN 5mg/325mg TAB PO PRN ×3 (04:49→19:31)
[2019-03-12 07:22] LABS: INR 1.6 (0.9-1.1); Prothrombin Time 15.7 Seconds (9.0-12.0)
[2019-03-12] MEDS: FLUTICASONE/SALMETEROL (ADVAIR) 500/50 INH 14 PUFF INH SCH ×2 (07:27→20:48)
[2019-03-12] MEDS: PROSOURCE NO CARB 30 ML/PKT PO SCH ×2 (07:28→20:47)
[2019-03-12] MEDS: SPIRONOLACTONE 100 MG TAB PO SCH (07:28)
[2019-03-12] MEDS: GABAPENTIN 300 MG CAP PO SCH ×4 (07:28→20:46)
[2019-03-12] MEDS: PANTOprazole 40 MG TAB PO SCH ×2 (07:28→20:46)
[2019-03-12] MEDS: DOCUSATE SODIUM 100 MG CAP PO SCH ×2 (07:28→20:46)
[2019-03-12] MEDS: FOLIC ACID 1 MG TAB PO SCH (07:28)
[2019-03-12] MEDS: FUROSEMIDE 40 MG TAB PO SCH ×2 (07:28→20:47)
[2019-03-12 07:50] LABS: Partial Thromboplastin Time 53.2 Seconds (21.0-31.0)
[2019-03-12] MEDS: INSULIN ASPART 100 UNITS/ML 3 ML PEN SC SCH ×4 (08:45→20:49)
[2019-03-12] MEDS ORDERED: CEFEPIME 2,000 MG in SYRINGE 7.5 ML IV SCH (09:00)
[2019-03-12] MEDS: Heparin Adult STANDARD Wt-Based Dextrose 5% 25,000 units/500 mL IV SCH (10:29)
[2019-03-12] MEDS ORDERED: VANCOMYCIN TROUGH ONE (13:30)
--- NOTE | 2019-03-12 14:15 | Infectious Disease Progress Nt ---
Date of Service March 12, 2019 Assessment & Plan (1) Cellulitis of both lower extremities: will change to imipenem, blood cultures negative, continue wound care. would give min 21 days IV abx. consider vascular studies. Subjective pt seen in followup, doing well. remains on vanco and cefepime, tolerating well. afebrile. mom at bedside, legs wrapped earlier this afternoon, still with some soreness. wound culture growing E. coli, E. faecalis and pseudomonas. blood cultures negative. mom asking that patient undergo vascular studies due to recurrent infection. no abd pain, no n/v/d, no cp, sob, cough. Review of Systems Review of Systems: All systems reviewed & are unremarkable except as noted in HPI & below Physical Exam Constitutional: WD/WN, vitals as above Eyes: PERRL, conjunctivae normal, anicteric sclerae ENMT: external ear and nose normal, oropharynx normal Neck: normal visual inspection Respiratory: normal respiratory effort, lungs clear to auscultation Cardiovascular: RRR, no murmur, no edema Gastrointestinal (Abdomen): normal bowel sounds, soft, nontender, no hepatosplenomegaly Musculoskeletal: no cyanosis or clubbing, extremities motor strength 5/5 Skin: no rashes, warm and dry Psychiatric: A+Ox3, euthymic affect Results & Data Vital Signs (Past 12 Hours) Vital Signs Temp Pulse Resp BP Pulse Ox 03/12/19 07:31 36.4 C L 73 20 113/77 95 Laboratory Results Microbiology 03/10/19 14:53 Leg,Right Gram Stain - Final 03/10/19 14:53 Leg,Right Wound Culture - Final Escherichia coli Pseudomonas aeruginosa 03/10/19 14:53 Leg,Left Gram Stain - Final 03/10/19 14:53 Leg,Left Wound Culture - Final Escherichia coli Escherichia coli#2 Pseudomonas aeruginosa Enterococcus faecalis 03/10/19 14:39 Blood Aerobic Blood Culture - Preliminary No growth in Aerobic bottle after 24 hours. 03/10/19 14:39 Blood Anaerobic Blood Culture - Preliminary No growth in Anaerobic bottle after 24 hours. 03/10/19 14:22 Blood Aerobic Blood Culture - Preliminary No growth in Aerobic bottle after 24 hours. 03/10/19 14:22 Blood Anaerobic Blood Culture - Preliminary No growth in Anaerobic bottle after 24 hours.
[2019-03-12] MEDS: IMIPENEM/CILASTATIN SODIUM 500 MG in DEXTROSE 5% 100 ML IV SCH ×2 (14:42→19:30)
[2019-03-12] MEDS: WARFARIN SOD 5 MG TAB PO SCH (15:52)
--- NOTE | 2019-03-12 18:27 | Hospitalist Progress Note ---
Date of Service March 12, 2019 Assessment & Plan (1) Cellulitis of both lower extremities: Chronic bilateral lower extremity cellulitis/wound infection leading to multiple inpatient admission Wound culture on 10/2018: Was positive for MRSA and E. coli In the past patient was treated with IV ceftaroline Presents with worsening of lower extremity draining wound, cellulitis No evidence of sepsis, no temperature/fever normal white count Bilateral lower extremity wound culture: Showed Pseudomonas, E. colimultidrug- resistant Appreciate input from ID Antibiotic changed to IV and imipenem Will need 6 weeks of IV antibiotic Patient is willing to go to rehab for antibiotic treatment Discussed about PICC line, Patient had previous declined induced blood clot/thrombosis, reluctant to line placement Discussed with IV team in a.m. for option of other access for 6-week of IV antibiotic Patient's family is concerned about Due to recurrent lower extremity infection, Requests vascular study ordered arterial Doppler Of bilateral lower extremity in a.m. to assess for Blood circulation IfSignificant peripheral vascular disease, arterial stenosis noted patient will need vascular surgery consult (2) History of MRSA infection: History of MRSA lower extremity wound infection, Wound culture this admission growing gram-negative organism: Pseudomonas: E. coli IV vancomycin Discontinued IV imipenem for 6-week therapy (3) Type 2 diabetes mellitus: Will hold metformin while inpatient Insulin sliding scale ordered (4) COPD (chronic obstructive pulmonary disease): Stable, no evidence of shortness of breath wheeze or cough Continue outpatient DuoNeb as needed and Advair (5) Chronic deep vein thrombosis (DVT): History of hypercoagulable status with recurrent lower extremity DVT INR is subtherapeutic 1 Patient reports he had not been able to keep food down for nausea vomiting has not been able to take his Coumadin for the past 3 days Coumadin resumed Started on IV heparin bridge therapy IV heparin will be discontinued when INR 2 (6) Hypercoagulable state: Heterozygous MTHFR mutation With history of recurrent DVT INR subtherapeutic, not been able to take Coumadin for the past 2 to 3 days Coumadin resumed with IV heparin bridge therapy, goal INR 2-3 (7) Tobacco abuse: Smoking cessation counseling provided (8) Cirrhosis: History of alcohol abuse leading to chronic liver disease/alcoholic cirrhosis No evidence of decompensation, Continued Lasix Aldactone, low-salt diet Patient reports he had not drank alcohol for the past 1 year (9) Subtherapeutic international normalized ratio (INR): INR 1.0 today, has not been taking Coumadin for a few days secondary to acute illness History of hypercoagulable status with history of DVT Coumadin with IV heparin bridge CODE STATUS: Full code Disposition: Patient will need rehab for continued 6-week of IV antibiotics Wants to go to [place] PT OT evaluation requested Social service consulted for discharge planning Subjective Lateral lower extremity pain is reasonably controlled with current pain medication regimen No fever or chills patient will need 6-week of IV antibiotics Willing to go to [facility] rehab Physical Exam Constitutional: WD/WN, vitals as above + ill appearing; no acute distress Eyes: + anicteric sclerae ENMT: external ear and nose normal, oropharynx normal Neck: trachea midline, no thyromegaly Respiratory: normal respiratory effort, lungs clear to auscultation Cardiovascular: Rate/Rhythm: regular rate and regular rhythm Gastrointestinal (Abdomen): normal bowel sounds, soft, nontender, no hepatosplenomegaly Skin: + ulcer (Bilateral lower extremity) and + wound (Bilateral lower extremity) Neurologic: PERRL, EOMI, accommodation nl, no face palsy, no dysarthria Psychiatric: A+Ox3, euthymic affect Results & Data Vital Signs (Past 12 Hours) Vital Signs Temp Pulse Resp BP BP Pulse Ox 03/12/19 15:22 36.7 C 87 20 128/86 94 03/12/19 07:31 36.4 C L 73 20 113/77 95 (1) Type 2 diabetes mellitus Diabetes mellitus group home insulin use: without long term care phlebotomist use (2) Cirrhosis Ascites presence: unspecified Hepatic cirrhosis type: alcoholic cirrhosis Qualified Code(s): K70.30 - Alcoholic cirrhosis of liver without ascites (3) Chronic deep vein thrombosis (DVT) Affected thrombotic vein of extremity: unspecified vein of extremity DVT location: lower extremity Laterality: right Qualified Code(s): I82.501 - Chronic embolism and thrombosis of unspecified deep veins of right lower extremity (4) COPD (chronic obstructive pulmonary disease) COPD type: unspecified COPD Qualified Code(s): J44.9 - Chronic obstructive pulmonary disease, unspecified
[2019-03-12] MEDS: MIRTAZAPINE TAB 15 MG TAB PO SCH (20:48)
[2019-03-13] MEDS: Heparin Adult STANDARD Wt-Based Dextrose 5% 25,000 units/500 mL IV SCH ×2 (00:02→12:55)
[2019-03-13] MEDS: IMIPENEM/CILASTATIN SODIUM 500 MG in DEXTROSE 5% 100 ML IV SCH ×4 (02:58→20:50)
[2019-03-13] MEDS: MoRPHine SULFATE 2 MG/ML CARP IV PRN ×4 (02:59→18:09)
[2019-03-13 06:55] LABS: Partial Thromboplastin Ratio 1.8; Prothrombin Time 19.6 Seconds (9.0-12.0)
[2019-03-13 06:58] LABS: Partial Thromboplastin Time 49.7 Seconds (21.0-31.0)
[2019-03-13] MEDS: FLUTICASONE/SALMETEROL (ADVAIR) 500/50 INH 14 PUFF INH SCH ×2 (07:50→20:44)
[2019-03-13] MEDS: SPIRONOLACTONE 100 MG TAB PO SCH (07:55)
[2019-03-13] MEDS: FOLIC ACID 1 MG TAB PO SCH (07:55)
[2019-03-13] MEDS: FUROSEMIDE 40 MG TAB PO SCH ×2 (07:55→20:44)
[2019-03-13] MEDS: GABAPENTIN 300 MG CAP PO SCH ×4 (07:55→20:42)
[2019-03-13] MEDS: PROSOURCE NO CARB 30 ML/PKT PO SCH ×2 (07:56→20:43)
[2019-03-13] MEDS: DOCUSATE SODIUM 100 MG CAP PO SCH ×2 (07:56→20:43)
[2019-03-13] MEDS: PANTOprazole 40 MG TAB PO SCH ×2 (07:56→20:43)
[2019-03-13] MEDS: INSULIN ASPART 100 UNITS/ML 3 ML PEN SC SCH ×4 (08:17→20:45)
--- NOTE | 2019-03-13 10:36 | Ultrasound Report ---
BILATERAL LOWER EXTREMITY ARTERIAL DOPPLER ULTRASOUND CLINICAL HISTORY: Bilateral chronic lower extremity wounds. COMPARISON STUDY: No previous studies for comparison. TECHNIQUE: Color and duplex Doppler sonography of the arterial systems of both lower extremities was performed. FINDINGS: Enlarged bilateral inguinal lymph nodes which contain a fatty hilum and are unchanged since ultrasound of June 20, 2017. These are probably reactive. Ankle to brachial indices could not be performed due to open wounds and bandages. This exam is compromised by suboptimal penetration. There is biphasic flow within the right common femoral artery. There is also biphasic flow within the right superficial femoral artery. Monophasic flow within the right popliteal artery is noted. There is als o monophasic flow within the right posterior tibial and anterior tibial arteries. The bilateral dorsa lis pedis and peroneal arteries cannot be assessed due to overlying bandages. Note is made of triphas ic flow within the left common femoral, superficial femoral and popliteal arteries with monophasic fl ow within the left anterior tibial and posterior tibial arteries. No elevated velocities were identif ied. IMPRESSION: 1. No elevated velocities within the lower extremities to suggest a hemodynamically significant steno sis however calf vessels suboptimally assessed due to lower extremity edema. Bilateral dorsalis pedis and peroneal arteries not visualized due to bandages. 2. Monophasic flow within the right popliteal artery and bilateral anterior and posterior tibial milind rosario. 3. Enlarged bilateral lymph nodes which are unchanged from exam of June 20, 2017. There are likely benign and may be reactive. Electronically signed by: Felix Mae M.D. 03/13/2019 10:35 AM
[2019-03-13] MEDS: OXYCODONE/ACETAMINOPHEN 5mg/325mg TAB PO PRN ×2 (12:21→20:42)
[2019-03-13] MEDS: WARFARIN SOD 10 MG TAB PO SCH (16:34)
[2019-03-13] MEDS: MIRTAZAPINE TAB 15 MG TAB PO SCH (20:43)
--- NOTE | 2019-03-13 21:06 | Hospitalist Progress Note ---
Date of Service March 13, 2019 Assessment & Plan (1) Cellulitis of both lower extremities: Chronic bilateral lower extremity cellulitis/wound infection leading to multiple inpatient admission Wound culture on 10/2018: Was positive for MRSA and E. coli Wound cx grew pseudomonas, E. Coli, Enterococcus faecalis Venous Doppler of LE showed no sonographic evidence of acute deep venous thrombosis identified in the right or left lower extremity. Arterial doppler of LE showed no elevated velocities within the lower extremities to suggest a hemodynamically significant stenosis however calf vessels suboptimally assessed due to lower extremity edema. Has been on multiple course of IV ceftaroline Last course of abx was in beginning of February ID on board recommended to continue imipenem for 21 days (2) Type 2 diabetes mellitus: Continue to hold metformin while inpatient Insulin sliding scale ordered (3) COPD (chronic obstructive pulmonary disease): Stable, no evidence of shortness of breath wheeze or cough Continue outpatient DuoNeb as needed and Advair (4) Chronic deep vein thrombosis (DVT): History of hypercoagulable status with recurrent lower extremity DVT INR is 2.0 today Continue coumadin bridge with IV heparin drip Will d/c IV heparin (5) Hypercoagulable state: Heterozygous MTHFR mutation With history of recurrent DVT INR subtherapeutic, not been able to take Coumadin for the past 2 to 3 days Coumadin resumed with IV heparin bridge therapy, goal INR 2-3 (6) Tobacco abuse: Smoking cessation counseling provided (7) Cirrhosis: History of alcohol abuse leading to chronic liver disease/alcoholic cirrhosis No evidence of decompensation, Continued Lasix Aldactone, low-salt diet Patient reports he had not drank alcohol for the past 1 year (8) Subtherapeutic international normalized ratio (INR): INR 2 today Will d/c heparin drip CODE STATUS: Full code Disposition: Patient will need rehab for continued 6-week of IV antibiotics Wants to go to [place] PT OT evaluation requested Social service consulted for discharge planning Subjective Pt was seen and examined Lying in bed with no distress Pt said that he feels ok Denies any chest pain, palpitation, dizziness and SOB Physical Exam Physical Exam: General- No acute distress Head- atraumatic Eyes- PERRL, EOMI, ENT- oropharynx clear Neck- supple, no JVD Lungs- clear to auscultation Heart- regular rhythm; no murmur Abdomen- normal bowel sounds, soft, nontender Extremities- + ulcer (Bilateral lower extremity) and + wound (Bilateral lower extremity) Extensive bilateral lower extremity open wound from below the knee, with foul-smelling drainage Neuro- alert, oriented x 3; PERRL, EOMI; no facial palsy; no dysarthria Skin- warm & dry Results & Data Vital Signs (Past 12 Hours) Vital Signs Temp Pulse Resp BP Pulse Ox 03/13/19 15:00 36.8 C 85 20 120/83 94 (1) Type 2 diabetes mellitus Diabetes mellitus assisted insulin use: without assisted use (2) Cirrhosis Ascites presence: unspecified Hepatic cirrhosis type: alcoholic cirrhosis Qualified Code(s): K70.30 - Alcoholic cirrhosis of liver without ascites (3) Chronic deep vein thrombosis (DVT) Affected thrombotic vein of extremity: unspecified vein of extremity DVT location: lower extremity Laterality: right Qualified Code(s): I82.501 - Chronic embolism and thrombosis of unspecified deep veins of right lower extremity (4) COPD (chronic obstructive pulmonary disease) COPD type: unspecified COPD Qualified Code(s): J44.9 - Chronic obstructive pulmonary disease, unspecified
[2019-03-14] MEDS: Heparin Adult STANDARD Wt-Based Dextrose 5% 25,000 units/500 mL IV SCH (00:11)
[2019-03-14] MEDS: MoRPHine SULFATE 2 MG/ML CARP IV PRN ×5 (00:12→20:28)
[2019-03-14] MEDS: IMIPENEM/CILASTATIN SODIUM 500 MG in DEXTROSE 5% 100 ML IV SCH ×4 (02:25→20:28)
[2019-03-14 06:26] LABS: Partial Thromboplastin Ratio 2.2
[2019-03-14 06:28] LABS: Partial Thromboplastin Time 59.1 Seconds (21.0-31.0)
[2019-03-14] MEDS: INSULIN ASPART 100 UNITS/ML 3 ML PEN SC SCH ×4 (08:51→20:31)
[2019-03-14] MEDS: FLUTICASONE/SALMETEROL (ADVAIR) 500/50 INH 14 PUFF INH SCH ×2 (08:51→20:28)
[2019-03-14] MEDS: OXYCODONE/ACETAMINOPHEN 5mg/325mg TAB PO PRN ×2 (08:51→17:57)
[2019-03-14] MEDS: PANTOprazole 40 MG TAB PO SCH ×2 (08:52→20:31)
[2019-03-14] MEDS: DOCUSATE SODIUM 100 MG CAP PO SCH ×2 (08:52→20:29)
[2019-03-14] MEDS: SPIRONOLACTONE 100 MG TAB PO SCH (08:52)
[2019-03-14] MEDS: GABAPENTIN 300 MG CAP PO SCH ×4 (08:52→20:29)
[2019-03-14] MEDS: FUROSEMIDE 40 MG TAB PO SCH ×2 (08:53→20:29)
[2019-03-14] MEDS: PROSOURCE NO CARB 30 ML/PKT PO SCH ×2 (08:53→20:30)
[2019-03-14] MEDS: FOLIC ACID 1 MG TAB PO SCH (08:53)
[2019-03-14 09:49] LABS: INR 2.2 (0.9-1.1); Prothrombin Time 21.7 Seconds (9.0-12.0)
[2019-03-14] MEDS: WARFARIN SOD 5 MG TAB PO SCH (15:21)
--- NOTE | 2019-03-14 20:07 | Hospitalist Progress Note ---
Date of Service March 14, 2019 Assessment & Plan (1) Cellulitis of both lower extremities: Chronic bilateral lower extremity cellulitis/wound infection leading to multiple inpatient admission Wound culture on 10/2018: Was positive for MRSA and E. coli Wound cx grew pseudomonas, E. Coli, Enterococcus faecalis Venous Doppler of LE showed no sonographic evidence of acute deep venous thrombosis identified in the right or left lower extremity. Arterial doppler of LE showed no elevated velocities within the lower extremities to suggest a hemodynamically significant stenosis however calf vessels suboptimally assessed due to lower extremity edema. Has been on multiple course of IV ceftaroline Last course of abx was in beginning of February ID on board recommended to continue imipenem for 21 days Follow up with ID outpatient (2) Type 2 diabetes mellitus: Continue to hold metformin while inpatient Will resume metformin on discharge BS stable (3) COPD (chronic obstructive pulmonary disease): Stable, no evidence of shortness of breath wheeze or cough Continue outpatient DuoNeb as needed and Advair Stable (4) Chronic deep vein thrombosis (DVT): History of hypercoagulable status with recurrent lower extremity DVT INR is 2.2 today IV heparin drip discontinued Continue coumadin Monitor PT/INR (5) Hypercoagulable state: Heterozygous MTHFR mutation With history of recurrent DVT INR subtherapeutic, not been able to take Coumadin for the past 2 to 3 days IV heparin drip discontinued Continue coumadin INR 2.2 today (6) Tobacco abuse: Counseling on smoking cessation (7) Cirrhosis: History of alcohol abuse leading to chronic liver disease/alcoholic cirrhosis No evidence of decompensation, Continued Lasix Aldactone, low-salt diet Patient reports he had not drank alcohol for the past 1 year (8) Subtherapeutic international normalized ratio (INR): INR 2.2 today Continue coumadin CODE STATUS: Full code Disposition: Patient will need rehab for continued total 21 days course of IV antibiotics Waiting for placement Subjective Pt was seen and examined Lying in bed with no distress Pt said that pain improves in the lower extremities He said that wound looks a lot better compare to when he came Denies any chest pain, palpitation, dizziness Physical Exam Physical Exam: General- No acute distress Head- atraumatic Eyes- PERRL, EOMI, ENT- oropharynx clear Neck- supple, no JVD Lungs- clear to auscultation Heart- regular rhythm; no murmur Abdomen- normal bowel sounds, soft, nontender Extremities- + ulcer (Bilateral lower extremity) and + wound (Bilateral lower extremity) Extensive bilateral lower extremity open wound from below the knee, with foul-smelling drainage wrap with dressing Neuro- alert, oriented x 3; PERRL, EOMI; no facial palsy; no dysarthria Skin- warm & dry (1) Type 2 diabetes mellitus Diabetes mellitus long term care phlebotomist insulin use: without mcc use (2) Cirrhosis Ascites presence: unspecified Hepatic cirrhosis type: alcoholic cirrhosis Qualified Code(s): K70.30 - Alcoholic cirrhosis of liver without ascites (3) Chronic deep vein thrombosis (DVT) Affected thrombotic vein of extremity: unspecified vein of extremity DVT location: lower extremity Laterality: right Qualified Code(s): I82.501 - Chronic embolism and thrombosis of unspecified deep veins of right lower extremity (4) COPD (chronic obstructive pulmonary disease) COPD type: unspecified COPD Qualified Code(s): J44.9 - Chronic obstructive pulmonary disease, unspecified
[2019-03-14] MEDS: MIRTAZAPINE TAB 15 MG TAB PO SCH (20:30)
[2019-03-15] MEDS: OXYCODONE/ACETAMINOPHEN 5mg/325mg TAB PO PRN ×3 (00:14→14:42)
[2019-03-15] MEDS: IMIPENEM/CILASTATIN SODIUM 500 MG in DEXTROSE 5% 100 ML IV SCH ×3 (01:33→14:37)
[2019-03-15] MEDS: MoRPHine SULFATE 2 MG/ML CARP IV PRN ×3 (01:35→16:13)
[2019-03-15] MEDS: GABAPENTIN 300 MG CAP PO SCH ×2 (08:01→13:07)
[2019-03-15] MEDS: SPIRONOLACTONE 100 MG TAB PO SCH (08:01)
[2019-03-15] MEDS: DOCUSATE SODIUM 100 MG CAP PO SCH (08:01)
[2019-03-15] MEDS: FOLIC ACID 1 MG TAB PO SCH (08:02)
[2019-03-15] MEDS: FLUTICASONE/SALMETEROL (ADVAIR) 500/50 INH 14 PUFF INH SCH (08:02)
[2019-03-15] MEDS: PANTOprazole 40 MG TAB PO SCH (08:02)
[2019-03-15] MEDS: PROSOURCE NO CARB 30 ML/PKT PO SCH (08:03)
[2019-03-15] MEDS: FUROSEMIDE 40 MG TAB PO SCH (08:03)
[2019-03-15 08:22] LABS: Partial Thromboplastin Ratio 1.3; Partial Thromboplastin Time 34.2 Seconds (21.0-31.0)
[2019-03-15] MEDS: INSULIN ASPART 100 UNITS/ML 3 ML PEN SC SCH ×3 (08:50→17:15)
--- NOTE | 2019-03-15 15:03 | Discharge Summary ---
Date of Service March 15, 2019 Admission HPI Per Admitting Provider This is a 43-year-old male with a complex past medical history of heterozygous MTHFR mutation, hemosiderosis, type 2 diabetes, COPD, chronic deep vein thrombosis of femoral vein, on chronic anticoagulation on Coumadin, venous insufficiency, alcoholic liver cirrhosis with ascites, chronic venous stasis ulcer of bilateral legs, thrombocytopenia, depression, tobacco use disorder, admitted with worsening of bilateral lower extremity wound/cellulitis with foul- smelling drainage. Patient had multiple admission in hospital for recurrent lower extremity cellulitis Last discharged from hospital to rehab on [facility] on 02/01/2019 With atrophy IV ceftaroline 600 mg every 12 hours for 4 weeks Patient was discharged from rehab a week ago,-lower extremity wounds reportedly was completely healed For the past few days patient noted, increased drainage, pain, discoloration of bilateral lower extremity Did not had fever, had intermittent chills and Rigor Presented with worsening of bilateral lower extremity open wounds and cellulitis Admission Exam Per Admitting Provider Constitutional: WD/WN, vitals as above + ill appearing; no acute distress Eyes: + anicteric sclerae ENMT: external ear and nose normal, oropharynx normal Neck: trachea midline, no thyromegaly Respiratory: normal respiratory effort, lungs clear to auscultation Cardiovascular: regular rate and regular rhythm Gastrointestinal: normal bowel sounds, soft, nontender, no hepatosplenomegaly Musculoskeletal: Extensive bilateral lower extremity wound from knee to ankle, extensive skin loss with yellow discoloration noted in multiple area, multiple open wounds with foul-smelling drainage Skin: + ulcer (Bilateral lower extremity) and + wound (Bilateral lower extr emity) Extensive bilateral lower extremity open wound from below the knee, with foul-smelling drainage Neurologic: PERRL, EOMI, accommodation nl, no face palsy, no dysarthria Psychiatric: A+Ox3, euthymic affect Principal Diagnosis Cellulitis of both lower extremities Type 2 diabetes Mellitus COPD (chronic obstructive pulmonary disease) Chronic deep vein thrombosis (DVT) Hypercoagulable state Tobacco abuse Discharge Exam General- No acute distress Head- atraumatic Eyes- PERRL, EOMI, ENT- oropharynx clear Neck- supple, no JVD Lungs- clear to auscultation Heart- regular rhythm; no murmur Abdomen- normal bowel sounds, soft, nontender Extremities- + ulcer (Bilateral lower extremity) and + wound (Bilateral lower extremity) Extensive bilateral lower extremity open wound from below the knee, with foul-smelling drainage wrap with dressing Neuro- alert, oriented x 3; PERRL, EOMI; no facial palsy; no dysarthria Skin- warm & dry Discharge Data Allergies Allergy/AdvReac Type Severity Reaction Status Date / Time peas Allergy Severe Swelling Verified 03/10/19 14:07 of Lip/Tongue/Throat Bactrim Allergy Intermediate hives Verified 04/12/18 15:58 sulfamethoxazole Allergy Intermediate hives Verified 03/10/19 14:07 trimethoprim Allergy Intermediate hives Verified 03/10/19 14:07 tuna oil Allergy Unknown . Verified 03/10/19 14:07 Consultations 03/10/19 15:23 ED Decision to Admit Stat 03/10/19 20:04 Consult Case Management - Discharge Planning Routine Consult Infectious Diseases Routine Ordered Studies 03/10/19 17:00 US venous doppler LE BI Stat 03/13/19 09:00 US arterial duplex LE Routine BILATERAL LOWER EXTREMITY ARTERIAL DOPPLER ULTRASOUND CLINICAL HISTORY: Bilateral chronic lower extremity wounds. COMPARISON STUDY: No previous studies for comparison. TECHNIQUE: Color and duplex Doppler sonography of the arterial systems of both lower extremities was performed. FINDINGS: Enlarged bilateral inguinal lymph nodes which contain a fatty hilum and are unchanged since ultrasound of June 20, 2017. These are probably reactive. Ankle to brachial indices could not be performed due to open wounds and bandages. This exam is compromised by suboptimal penetration. There is biphasic flow within the right common femoral artery. There is also biphasic flow within the right superficial femoral artery. Monophasic flow within the right popliteal artery is noted. There is also monophasic flow within the right posterior tibial and anterior tibial arteries. The bilateral dorsalis pedis and peroneal arteries cannot be assessed due to overlying bandages. Note is made of triphasic flow within the left common femoral, superficial femoral and popliteal arteries with monophasic flow within the left anterior tibial and posterior tibial arteries. No elevated velocities were identified. IMPRESSION: 1. No elevated velocities within the lower extremities to suggest a hemodynamically significant stenosis however calf vessels suboptimally assessed due to lower extremity edema. Bilateral dorsalis pedis and peroneal arteries not visualized due to bandages. 2. Monophasic flow within the right popliteal artery and bilateral anterior and posterior tibial arteries. 3. Enlarged bilateral lymph nodes which are unchanged from exam of June 20, 2017. There are likely benign and may be reactive. Electronically signed by: Felix Mae M.D. 03/13/2019 10:35 AM Dictated: 03/13/197 Transcribed: 03/13/19 102 ULTRASOUND BILATERAL LOWER EXTREMITY VENOUS CLINICAL HISTORY: Subtherapeutic INR. History of deep venous thrombosis. Lower extremity wound. COMPARISON STUDY: Lower extremity venous ultrasound dated 11/27/2018. TECHNIQUE: Real-time, grayscale, and color Doppler sonography of the deep veins of the right and left lower extremity was performed from the inguinal crease to the calf. Compression and augmentation were utilized. FINDINGS: There is no sonographic evidence of acute deep venous thrombosis identified in the right or left lower extremity. There is mild stranding/scarring consistent with chronic deep venous thrombosis seen within both legs. This is similar to previous. The common femoral, superficial femoral, and popliteal veins are patent and normally compressible bilaterally. The greater saphenous vein and the profunda femoris vein at the junction with the common femoral vein are clear in both legs. The visualized calf veins are patent bilaterally. There are mildly enlarged bilateral inguinal lymph nodes, likely on a reactive basis. IMPRESSION: 1. There is no sonographic evidence of acute deep venous thrombosis identified in the right or left lower extremity. 2. Chronic stranding/scarring is identified within the deep veins of both legs consistent with previous deep venous thrombosis. This is unchanged prior studies. 3. Mildly enlarged inguinal lymph nodes are likely on a reactive basis. Clinical correlation will be required. Electronically signed by: Emil Morelos M.D. 03/10/2019 7:42 PM Dictated: 03/10/191938 Transcribed: 03/10/191938 Hospital Course (1) Cellulitis of both lower extremities: Chronic bilateral lower extremity cellulitis/wound infection leading to multiple inpatient admission Wound culture on 10/2018: Was positive for MRSA and E. coli Wound cx grew pseudomonas, E. Coli, Enterococcus faecalis Venous Doppler of LE showed no sonographic evidence of acute deep venous thrombosis identified in the right or left lower extremity. Arterial doppler of LE showed no elevated velocities within the lower extremities to suggest a hemodynamically significant stenosis however calf vessels suboptimally assessed due to lower extremity edema. Has been on multiple course of IV ceftaroline Last course of abx was in beginning of February ID on board recommended to continue imipenem for 21 days Follow up with ID outpatient (2) Type 2 diabetes mellitus: Continue to hold metformin while inpatient Will resume metformin on discharge BS stable (3) COPD (chronic obstructive pulmonary disease): Stable, no evidence of shortness of breath wheeze or cough Continue outpatient DuoNeb as needed and Advair Stable (4) Chronic deep vein thrombosis (DVT): History of hypercoagulable status with recurrent lower extremity DVT INR is 2.2 today IV heparin drip discontinued Continue coumadin Monitor PT/INR (5) Hypercoagulable state: Heterozygous MTHFR mutation With history of recurrent DVT INR subtherapeutic, not been able to take Coumadin for the past 2 to 3 days IV heparin drip discontinued Continue coumadin INR 2.2 today (6) Tobacco abuse: Counseling on smoking cessation (7) Cirrhosis: History of alcohol abuse leading to chronic liver disease/alcoholic cirrhosis No evidence of decompensation, Continued Lasix Aldactone, low-salt diet Patient reports he had not drank alcohol for the past 1 year (8) Subtherapeutic international normalized ratio (INR): INR 2.2 today Continue coumadin CODE STATUS: Full code Disposition: Patient will need rehab for continued total 21 days course of IV antibiotics Waiting for placement Total Time Total Time Spent Total Time Spent (In Minutes): 35 minutes Total Time Includes: Examination of the Patient, Discharge Planning, Medication Reconciliation, Communication With Other Providers and Other Discharge Plan Discharge Items Patient Disposition: Transfer [facility] Fac Reason For Visit: LOWER EXTREMITY CELLULITIS Discharge Diagnosis: Cellulitis of both lower extremities Type 2 diabetes Mellitus COPD (chronic obstructive pulmonary disease) Chronic deep vein thrombosis (DVT) Hypercoagulable state Tobacco abuse Discharge Goals: Decrease discomfort, Improve disease control and Increase indep endence Activity: Resume your previous activity Activity Comment: As tolerated Non-emergency contact: Primary Care Provider Call non-emergency contact if: you have any medication questions and your temperature is above 101.5 Follow-up/Referrals: Gareth Lin MD [Primary Care Provider] - Diet: Carb Consistent or DM2 Addtl Provider Instructions: Follow up with your primary care provider once discharge from [facility] Follow up with Infectious disease Follow up with wound care clinic Continue daily wound care dressing Continue course of IV antibiotic infusion Follow a healthy diabetic diet and limited concentrated sweet intake Continue daily wound care Counseling on smoking cessation Follow up with the coumadin clinic (Monitor PT/INR) Check BMP and CBC in 1 week Check PT/INR on Monday Prescriptions: New oxycodone-acetaminophen [Percocet] 5-325 mg Tablet 1 tab PO Q6H PRN (Reason: pain) Qty: 10 RF: 0 imipenem-cilastatin 500 mg recon soln 1 ml IV Q6H 17 Days Qty: 68 RF: 0 Continued docusate sodium [Colace] 100 mg Capsule 200 mg PO BID RF: 0 omeprazole 20 mg Capsule,Delayed Release(Dr/Ec) 20 mg PO BID RF: 0 folic acid 1 mg Tablet 1 mg PO QAM RF: 0 albuterol sulfate [Ventolin HFA] 90 mcg/actuation Hfa Aerosol Inhaler 1 puff INHALATION Q4H PRN (Reason: Shortness Of Breath) RF: 0 gabapentin 300 mg Capsule 300 mg PO QID RF: 0 warfarin 5 mg Tablet 15 mg PO TUTHSA RF: 0 furosemide [Lasix] 20 mg Tablet 40 mg PO PM RF: 0 spironolactone [Aldactone] 50 mg Tablet 100 mg PO QAM RF: 0 metformin 1,000 mg tablet 1,000 mg PO BID Qty: 60 RF: 0 oxycodone-acetaminophen [Percocet] 5-325 mg Tablet 1 tab PO Q6H PRN (Reason: pain) Qty: 10 RF: 0 furosemide 40 mg Tablet 40 mg PO QAM RF: 0 warfarin 5 mg Tablet 10 mg PO SUMOWEFR RF: 0 fluticasone propion-salmeterol [Advair Diskus] 500-50 mcg/dose Blister With Device 1 inh INHALATION BID RF: 0 Stand-Alone Forms: [facility]/Other Patient Handouts: Diabetes Care Home Complications, Diabetes Reso urces, Diabetes Type 2 Coping, Diabetes Type 2 Oral Meds Discharge Orders: Discharge Order (Routine); Ordered 03/15/19 Ordered By: Shell Gonzalez Skilled Items Patient informed of condition?: Yes DNR: No Discharge Level of Care: Skilled Communicable Disease: No Discharge Prognosis: Stable Admission Data Admit Date/Time: 03/10/19 16:13 Attending Provider: Shell Gonzalez Admit Provider: Sarai Donaldson Primary Care Provider: Gareth Lin Other Providers: Karl Azul ; Todd Perez ; Sarai Donaldson Service: Medical
[2019-03-15] MEDS: WARFARIN SOD 10 MG TAB PO SCH (16:12)
== END 2019-03-15 17:05 | DRG 603 ==
LOC: ED 13:03 → 4W 16:13 → SUATTDRO 16:13 → 4W 19:25

== ENCOUNTER 2019-05-13 08:16 | Inpatient (IN) ==
[2019-05-13] MEDS ORDERED: ONDANSETRON INJ 2 MG/ML 2 ML VIAL IV STA (08:52)
[2019-05-13] MEDS ORDERED: HYDROmorphone INJ 1 MG/ML SYRINGE IV PRN (08:52)
[2019-05-13] MEDS ORDERED: KETOROLAC 30 MG/ML VIAL IV STA (08:52)
[2019-05-13] MEDS ORDERED: VANCOMYCIN HCL 2,250 MG in SODIUM CHLORIDE 0.9% 500 ML IV ONE (08:54)
[2019-05-13] MEDS ORDERED: VANCOMYCIN CONSULT ACTIVE PRN (08:54)
[2019-05-13] MEDS ORDERED: cefTRIAXone SODIUM 2,000 MG/70 ML BAG IV STA (08:54)
[2019-05-13 09:35] LABS: Basophils # (auto) 0.02 K/uL (0-0.2); Basophils % (auto) 0.4 %; Eosinophils # (auto) 0.05 K/uL (0-0.5); Eosinophils % (auto) 1.1 %; Hematocrit (blood only) 38.1 % (42-52); Hemoglobin 12.3 g/dL (14.0-18.0); Immature Granulocytes # (auto) 0.01 K/uL (0.00-0.02); Immature Granulocytes % (auto) 0.2 %; Lymphocytes # (auto) 0.79 K/uL (1.2-3.4); Lymphocytes % (auto) 17.1 %; Mean Corpuscular Hemoglobin 27.8 pg (25-34); Mean Corpuscular Hgb Conc 32.3 g/dL (32-36); Mean Platelet Volume 9.7 fL (7.4-10.4); Monocytes # (auto) 0.51 K/uL (0.11-0.59); Neutrophils # (auto) 3.25 K/uL (1.4-6.5); Neutrophils % (auto) 70.2 %; Platelet Count 117 K/uL (130-400); RDW Standard Deviation 55.4 fL (36.4-46.3); Red Blood Count 4.43 M/uL (4.7-6.1); White Blood Count 4.63 K/uL (4.8-10.8)
[2019-05-13 09:48] LABS: INR 1.3 (0.9-1.1); Partial Thromboplastin Time 27.8 Seconds (21.0-31.0); Prothrombin Time 13.5 Seconds (9.0-12.0)
--- NOTE | 2019-05-13 09:49 | XRay Report ---
XR chest 1V portable CLINICAL HISTORY: 44 years-old Male presenting with Sepsis. TECHNIQUE: Portable upright AP view of the chest was obtained. COMPARISON: 12/04/2018. FINDINGS: Cardiac silhouette borderline enlarged. Pulmonary vascular prominence. Coarsened lung markings as on prior exam.. Irregular opacity suspected in the right midlung, which may be new or increased from nicolas or. No other focal opacity. No large effusion or pneumothorax. Osseous structures normal. Upper abdom en normal. IMPRESSION: 1. Irregular infiltrate in the right midlung, which may be new or increased from prior. This does no t have a typical appearance of pneumonia though this is difficult to exclude. Consider further imagin g for better characterization. Electronically signed by: Antoni Rod M.D. 05/13/2019 9:48 AM
[2019-05-13 09:51] LABS: Albumin Level 3.4 gm/dl (3.4-5.0); BUN Creatinine Ratio 6.5 (10-20); Creatinine Clr Calc Pharmacy 124.7 ml/min; Est GFR (Non-African American) 100.1; Potassium 3.9 mmol/L (3.5-5.1)
[2019-05-13 09:54] LABS: Albumin Globulin Ratio 0.7 (0.9-2); Bilirubin,Total 0.7 mg/dl (0.2-1); Globulin 5.1 gm/dl (2.5-4.0); Total Protein 8.5 gm/dl (6.4-8.2)
[2019-05-13] MEDS ORDERED: HEPARIN SODIUM/DEXTROSE 25,000 UNITS/500 ML BAG IV SCH (11:19)
[2019-05-13] MEDS ORDERED: Heparin IV Standard *NO* Bolus IV ONE (11:19)
[2019-05-13] MEDS ORDERED: Heparin Adult STANDARD Wt-Based Dextrose 5% 25,000 units/500 mL IV SCH (11:45)
[2019-05-13] MEDS ORDERED: ENOXAPARIN 1 MG/KG SQ SCH (11:45)
[2019-05-13] MEDS ORDERED: ENOXAPARIN INJ 120 MG/0.8 ML SYR SQ ONE (12:00)
--- NOTE | 2019-05-13 12:08 | History & Physical Report ---
Date of Service May 13, 2019 Assessment & Plan (1) Chronic venous stasis dermatitis of both lower extremities: (2) Chronic ulcer of lower extremity: (3) Bilateral cellulitis of lower leg: Pt does not meet Sepsis/SIRS criteria on admission B/L Lower extremity recurrent cellulitis L > R with open wounds WBC 4.63, Pt afebrile, Lactic acid 1.9, INR 1.3 ESR, CRP, Procalcitonin pending admit to med/surg consult ID - spoke with Dr. Perez Start IV Ceftraoline Wound care consult ordered Wound/Blood culture pending monitor labs continue outpt pain regimen with oxycodone Lovenox/warfarin bridge given subtherapeutic INR (4) Type 2 diabetes mellitus: Last A1C 8.1 03/25/[address] on lantus/novolog per protocol (5) Cirrhosis: continue lasix, aldactone no s/sx of decompensation/H.E. 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 This does not have a typical appearance of pneumonia though this is difficult to exclude. Consider further imaging for better characterization CT Scan chest w/o contrast ordered for evaluation (14) DVT prophylaxis: Lovenox/warfarin bridge Disposition: admit to med/surg Follow up: PCP Dr. Lin upon discharge, he will also need appropriate wound care/ID follow up Patient was seen and examined in collaboration with Dr. Kuhn, please see addendum Starting 05/14/19 patient will be under the care of Dr. Azul History of Present Illness Chief Complaint: B/L open wounds to leg with increasing pain to LLE Primary Care Provider: Gareth Lin MD This is a 44 year old M PMH recurrent B/L lower extremity cellulitis and wounds, venous insufficiency, DM II, COPD, hypercoagulable state - prothrombin factor II mutation, chronic nonocclusive BLE DVT, GERD, tobacco use, chronic narcotic use, depression, h/o MRSA presented to [facility] ED with bilateral lower extremity open wounds and increasing LLE pain. Pt was recently hospitalized 04/09-04/22/ to lower extremity cellulitis treated with IV antibiotic ceftraoline and cipro and discharged to rehab. He was discharged from rehab on 04/30 in which she states his wounds were completely healed. Approximately 1 week ago patient noticed opening of recurrent wounds to bilateral lower extremity. Over the past week he has noticed increased pain and swelling to left leg and purulent drainage. He also complains of chills, sweats, nausea and intermittent emesis. He states "this is how I feel when I get infected." He has had URI sx for past 3 days including sinus congestion, clear rhinorrhea and dry cough. He was seen in our ED on 05/08 in which he received a dose of IV Dalvance. He was encouraged to follow-up as outpatient, but states he did not have a ride. Overall he now feels his legs are worse. He lives alone at home. He was using xeroform, but has run out of this. Denies any documented fever, dizziness, lightheaded, chest pain, palpitations, VARMA, SOB, hemoptysis, abdominal pain, change in bowel or urinary habits. Has had poor appetite for past 24 hours. Allergies Allergy/AdvReac Type Severity Reaction Status Date / Time peas Allergy Severe Swelling Verified 05/13/19 08:39 of Lip/Tongue/Throat Bactrim Allergy Intermediate hives Verified 04/12/18 15:58 sulfamethoxazole Allergy Intermediate hives Verified 05/13/19 08:39 trimethoprim Allergy Intermediate hives Verified 05/13/19 08:39 tuna oil Allergy Unknown . Verified 05/13/19 08:39 Home Medications Home Medications Medication Instructions Recorded Confirmed Type albuterol sulfate [Ventolin HFA] 1 puff INHALATION Q4H PRN 05/09/18 05/13/19 History docusate sodium [Colace] 200 mg PO BID 05/09/18 05/13/19 History folic acid 1 mg PO QAM 05/09/18 05/13/19 History omeprazole 20 mg PO BID 05/09/18 05/13/19 History gabapentin 300 mg PO TID 08/16/18 05/13/19 History fluticasone propion-salmeterol 1 inh INHALATION BID 09/05/18 05/13/19 History [Advair Diskus] furosemide 40 mg PO BID 03/10/19 05/13/19 History spironolactone 100 mg PO QAM 04/09/19 05/13/19 History diphenhydramine HCl [Benadryl] 25 - 50 mg PO Q6 PRN #60 cap 04/22/19 05/13/19 Rx metformin 1,000 mg PO BIDM 05/08/19 05/13/19 History oxycodone 10 mg PO Q6H PRN 05/08/19 05/13/19 History warfarin 10 mg PO SUMOWEFR 05/08/19 05/13/19 History warfarin 15 mg PO TUTHSA 05/08/19 05/13/19 History ferrous sulfate 325 mg PO QAM 05/13/19 05/13/19 History Past Med/Surg History Medical History Pulmonary nodule (Chronic) CT chest 04/12/18 - 4 mm RUL nodule, f/u 12 months Venous insufficiency (chronic) (peripheral) (Chronic) COPD (chronic obstructive pulmonary disease) (Chronic) Depression (Chronic) Cirrhosis History of MRSA infection COPD (chronic obstructive pulmonary disease) (Chronic) GERD (gastroesophageal reflux disease) (Chronic) Tobacco abuse (Chronic) Chronic ulcer of lower extremity (Chronic) bilateral Chronic venous stasis dermatitis of both lower extremities (Chronic) Hypercoagulable state (Chronic) Prothrombin Factor II Mutation, 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, borderline hyperhomocystemia Anxiety (Chronic) MRSA (methicillin resistant Staphylococcus aureus) infection (Chronic) History of ETOH abuse (Chronic) Chronic narcotic use (Chronic) Type 2 diabetes mellitus (Chronic) Chronic deep vein thrombosis (DVT) (Chronic) Anxiety COPD (chronic obstructive pulmonary disease) Cellulitis Chronic deep vein thrombosis (DVT) Chronic narcotic use Chronic ulcer of leg "b/l" Chronic venous stasis dermatitis of both lower extremities Depression GERD (gastroesophageal reflux disease) HTN (hypertension) History of ETOH abuse Hypercoagulable state On 04/12/18 14:03 Yainrachristiano Boldenhomerounique wrote "Prothrombin Factor II Mutation, 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 Chaudhari History of drainage of abscess [address] 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, boderline hyperhomocystemia Social History Preferred Language: Lithuanian Communication Ability: Effective Visual Impairment: No Limitations Hearing Ability: Normal Nurse Outreach Case Manager Required: No Beliefs That Will Affect Care: None marital status: Current Living Situation: Alone Other Information That Helps Us Care for You: No Feels Safe at Home: Yes Safety Concerns: Feels Safe At This Time Smoking Status: Current every day smoker Tobacco Type: cigarettes ; Cigarettes Per Day: 3 ; Do You Dip or Chew Tobacco: No ; Second Hand Exposure: No ; Tobacco Cessation Education Requested by Patient: No Hx Alcohol Use: No Hx Substance Use: No Review of Systems Review of Systems: All systems reviewed & are unremarkable except as noted in HPI & below Physical Exam Physical Exam: Constitutional: WD/WN, vitals as above, NAD, sitting up in bed, pleasant, conversing easily Head: Normocephalic, Atraumatic Eyes: PERRL, conjunctivae normal, anicteric sclerae ENMT: external ear and nose normal, oropharynx normal Neck: trachea midline, no thyromegaly normal visual inspection Respiratory: normal respiratory effort, lungs clear to auscultation, with bilateral expiratory wheeze and prolonged exp phase, no rales, rhonchi. Normal insp/exp effort, no accessory muscle use Cardiovascular: RRR, no murmur, no edema Vessels: no JVD or carotid bruit Chest: normal inspection of chest Abdomen: normal bowel sounds, soft, nontender, no hepatosplenomegaly Musculoskeletal: no cyanosis or clubbing, has AROM of all extremities Skin: B/L lower extremity venous stasis changes, darkened hypertrophic skin with b/l medial malleolar openings along with wound open on R pretibial region. Yellow dried slough like tissue noted on anterior pre tibial aspect of leg, foul odor. Skin warm. Increased redness to L> R Neurologic: PERRL, EOMI, accommodation nl, no face palsy, no dysarthria CN's II-XI intact bilaterally and moves all extremities Psychiatric: A+Ox3, euthymic affect Lymphatic: no cervical or axillary lymphadenopathy : deferred Results & Data Vital Signs (Past 12 Hours) Vital Signs Temp Pulse Pulse Resp BP BP Pulse Ox 05/13/19 11:29 80 20 127/78 97 05/13/19 10:18 91 H 16 118/91 96 05/13/19 09:29 96 H 18 111/81 96 05/13/19 08:19 36.7 C 107 H 20 149/89 H 98 Laboratory Results Short CBC 05/13/19 05/13/19 05/13/19 Range/Units 09:13 09:18 09:18 WBC 4.63 L (4.8-10.8) K/uL Hgb 12.3 L (14.0-18.0) g/dL Hct 38.1 L (42-52) % Plt Count 117 L (130-400) K/uL INR 1.3 H (0.9-1.1) Lactate 1.9 (0.4-2.0) mmol/L BMP 05/13/19 09:18 Sodium 137 Potassium 3.9 Chloride 104 Carbon Dioxide 26 BUN 6 L Creatinine 0.92 Glucose 198 H Calcium 9.0 Liver Function 05/13/19 Range/Units 09:18 Total Bilirubin 0.7 (0.2-1) mg/dl AST 15 (15-37) U/L ALT 30 (12-78) U/L Alkaline Phosphatase 72 (45-117) U/L Albumin 3.4 (3.4-5.0) gm/dl Diagnostic Findings CXR: IMPRESSION: 1. Irregular infiltrate in the right midlung, which may be new or increased from prior. This does not have a typical appearance of pneumonia though this is difficult to exclude. Consider further imaging for better characterization. Medications Administered Hydromorphone HCl (Dilaudid) 1 mg IV Q15M PRN PRN Reason: Pain Stop: 05/27/19 08:51 Last Admin: 05/13/19 09:19 Dose: 1 mg Documented by: [id number] Discontinued Medications Ceftriaxone Sodium (Rocephin) 2,000 mg in 70 mls @ 140 mls/hr IV NOW STA Stop: 05/13/19 09:23 Last Infusion: 05/13/19 09:50 Dose: 0 mls/hr Documented by: [id number] Admin: 05/13/19 09:19 Dose: 140 mls/hr Documented by: [id number] Vancomycin HCl 2,250 mg/ (Sodium Chloride) 545 mls @ 200 mls/hr IV NOW ONE Stop: 05/13/19 11:37 Last Admin: 05/13/19 09:16 Dose: 200 mls/hr Documented by: [id number] Ketorolac Tromethamine (Toradol) 30 mg IV NOW STA Stop: 05/13/19 08:53 Last Admin: 05/13/19 09:19 Dose: 30 mg Documented by: [id number] Ondansetron HCl (Zofran) 4 mg IV NOW STA Stop: 05/13/19 08:53 Last Admin: 05/13/19 09:19 Dose: 4 mg Documented by: [id number] Code Status & VTE Plan Code Status Full Code VTE Prophylaxis Plan VTE Prophylaxis will be ordered: Yes Supervising Physician Co-Signing Physician Notes HISTORY: Record reviewed. Patient interviewed and examined in ED. Care coordinated with Yanira Martinez PA-C. Please refer to her documentation for patient's history. Briefly, 44 YO male with history of chronic venous stasis with associated ulcers and recurrent cellulitis. Worsening erythema and discomfort bilateral lower extremities. No definite fever, but experiencing malaise and sweats. EXAM: General- no distress Lungs- mild wheezing, few scattered rhonchi; no respiratory distress Cardiovascular- RRR; no murmur; no gallop; no JVD; 1+ pretibial edema Abdomen- + bowel sounds, soft, nontender Extremities- no cyanosis Neuro- alert, oriented Skin- venous stasis changes lower extremities with thickening of skin, few small ulcers, erythema, and warmth DATA: WBC 4630, hemoglobin 12.3, platelets 117,000. ESR greater than 90. C-reactive protein 9.39. Lactate 1.9. Procalcitonin 0.06. INR 1.3. Random glucose 198. Other lab studies as noted. Chest x-ray showed a vague irregular infiltrate in the right midlung per radiologist's interpretation. ASSESSMENT AND PLAN: Recurrent cellulitis of lower extremities secondary to venous stasis ulclers. History of MRSA. ID consulted. IV antibiotic therapy with ceftaroline fosamil recommended. Chronic wheezing and cough, stable per patient. Chest x-ray demonstrated vague infiltrate right midlung field. CT of chest suggested patchy infiltrates consistent with atypical pneumonia. Doxycycline added to antibiotic regimen. History recurrent VTE with underlying hypercoagulable condition. On warfarin, but INR subtherapeutic. SQ enoxaparin until INR in therapeutic range. Please refer to PEMA Martinez's documentation for discussion of other issues. (1) Chronic ulcer of lower extremity Laterality: unspecified laterality Non-pressure ulcer stage: unspecified non- pressure ulcer stage Qualified Code(s): L97.909 - Non-pressure chronic ulcer of unspecified part of unspecified lower leg with unspecified severity (2) Type 2 diabetes mellitus Diabetes mellitus intermediate insulin use: without intermediate 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
--- NOTE | 2019-05-13 12:17 | CT Scan Report ---
CT chest wo con CLINICAL HISTORY: 44 years-old Male presenting with follow up abn opacity on xray. TECHNIQUE: Multidetector CT imaging of the chest was performed without the use of intravenous contras t. IV contrast: None. One or more dose lowering techniques were used consistent with the principles o f ALARA (as low as reasonably achievable), including automatic exposure control, mA or kV adjustment to individual patient size, and/or use of iterative reconstruction. COMPARISON: CTA chest from 04/12/2018. CT DOSE (mGy.cm): The estimated cumulative dose is 569.21 mGy.cm. 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 Soft tissues: Normal thyroid and thoracic inlet. Severe gynecomastia. No axillary, supraclavicular, m ediastinal, or hilar lymphadenopathy. Normal aorta. Top normal heart size. Coronary artery calcificat ion. No pericardial or pleural effusion. Hepatic steatosis. The spleen may be enlarged but is unchang ed from prior. Lungs and airways: No pneumothorax. Central airways patent. Pulmonary arteries are not significantly enlarged relative to adjacent bronchi. No interlobular septal thickening. Interval development of sig nificant patchy peribronchovascular and peripheral groundglass opacities in the upper lobes right gre ater than left. Mosaic attenuation in the lower lobes. Musculoskeletal: Normal osseous structures. IMPRESSION: 1. Interval development of extensive patchy peribronchovascular peripheral groundglass infiltrates c onsistent with an atypical pneumonia. 2. Mosaic attenuation the lower lobes suggest small airways or reactive airways disease. 3. Given the presence of the opacities, evaluation of pulmonary nodule is limited. Electronically signed by: Antoni Rod M.D. 05/13/2019 12:15 PM
[2019-05-13] MEDS ORDERED: OXYCODONE HCL IR 5 MG TAB (IMMEDIATE RELEASE) PO PRN (12:57)
[2019-05-13] MEDS ORDERED: ONDANSETRON INJ 2 MG/ML 2 ML VIAL IV PRN (12:57)
[2019-05-13] MEDS ORDERED: GLUCAGON FOR INJ 1 MG VIAL SQ PRN (12:57)
[2019-05-13] MEDS ORDERED: ACETAMINOPHEN 325 MG TAB PO PRN (12:57)
[2019-05-13] MEDS ORDERED: POLYETHYLENE (MIRALAX) 17 GM PACK PO PRN (12:57)
[2019-05-13] MEDS ORDERED: CARBOHYDRATES FOR HYPOGLYCEMIA PO PRN (12:57)
[2019-05-13] MEDS ORDERED: ALUMINUM/MAGNESIUM SUSP 30 ML UDC PO PRN (12:57)
[2019-05-13] MEDS ORDERED: MAGNESIUM HYDROXIDE SUSP 30 ML UDC PO PRN (12:57)
[2019-05-13] MEDS ORDERED: DEXTROSE 50% 50 ML SYRINGE IV PRN (12:57)
[2019-05-13] MEDS ORDERED: GLUCOSE 10 TABS/TUBE PO PRN (12:57)
[2019-05-13] MEDS ORDERED: GLUCOSE 40% GEL 15 GM TUBE PO PRN (12:57)
[2019-05-13] MEDS ORDERED: OXYCODONE HCL IR 5 MG TAB (IMMEDIATE RELEASE) ONE (13:11)
[2019-05-13] MEDS: INSULIN ASPART 100 UNITS/ML 3 ML PEN SC SCH ×3 (13:36→21:21)
[2019-05-13] MEDS: GABAPENTIN 300 MG CAP PO SCH ×2 (14:04→21:26)
[2019-05-13] MEDS: CEFTAROLINE FOSAMIL ACETATE 600 MG in SODIUM CHLORIDE 0.9% 250 ML IV SCH (14:04)
[2019-05-13 14:40] LABS: Appearance Urine Turbid (Clear); Bacteria Urine Automated Negative (Negative); Blood Urine Negative (Negative); Color Urine Dark Yellow; Epithelial Cell Urine Auto >30 /lpf (0-5); Glucose Urine UA 2+ (Negative); Ketones Urine Trace (Negative); Leukocyte Esterase Urine 1+ (Negative); Nitrite Urine Positive (Negative); Protein Urine 1+ (Negative); RBC Urine Automated 0-4 /hpf (0-4); Specific Gravity Urine 1.038 (1.000-1.030); Urobilinogen Urine Negative (Negative); pH Urine 6.5 (4.5-7.5)
[2019-05-13 15:03] LABS: Bilirubin Urine Negative (Negative); Ictotest Urine Negative (Negative)
[2019-05-13] MEDS: ALBUT/IPRATROP 3MG/0.5MG NEB 3 ML VIAL NEB SCH ×2 (15:07→18:58)
--- NOTE | 2019-05-13 15:07 | Infectious Disease Consult ---
Date of Consultation May 13, 2019 Assessment & Plan (1) Bilateral cellulitis of lower le-year-old male with recurrent lower extremity cellulitis, feel that compliance with dressing changes and follow-up in major problem, also concerned about possibility of developing pneumonitis. Would consider adding IV doxycycline 100 mg twice daily to ceftaroline, await further cultures, will follow. (2) Pneumonitis: History of Present Illness Reason for Consultation: Bilateral cellulitis Attending Physician: Steve Kuhn MD History of Present Illness 44-year-old male well-known to the infectious disease service, with history of chronic venous stasis disease and recurrent lower extremity cellulitis. Patient has had multiple admissions in the recent past for recurrent cellulitis, does well in the hospital and at snf facilities, but soon after he goes home, develops progressively worsening disease. Recently hospitalized, treated with ceftaroline and ciprofloxacin, then recently developed worsening redness and swelling with drainage from both legs, seen in ER and given IV dalbavancin last week, but re-presents with what he feels is significantly worsening infection. Notes increasing drainage, pain, redness, and swelling. As discussed, patient has been restarted on IV ceftaroline. Of note, CT scan of the chest suggest the possibility of atypical pneumonia. Cultures are pending. Allergies Allergy/AdvReac Type Severity Reaction Status Date / Time peas Allergy Severe Swelling Verified 05/13/19 08:39 of Lip/Tongue/Throat Bactrim Allergy Intermediate hives Verified 04/12/18 15:58 sulfamethoxazole Allergy Intermediate hives Verified 05/13/19 08:39 trimethoprim Allergy Intermediate hives Verified 05/13/19 08:39 tuna oil Allergy Unknown . Verified 05/13/19 08:39 Home Medications Home Medications Medication Instructions Recorded Confirmed Type albuterol sulfate [Ventolin HFA] 1 puff INHALATION Q4H PRN 05/09/18 05/13/19 History docusate sodium [Colace] 200 mg PO BID 05/09/18 05/13/19 History folic acid 1 mg PO QAM 05/09/18 05/13/19 History omeprazole 20 mg PO BID 05/09/18 05/13/19 History gabapentin 300 mg PO TID 08/16/18 05/13/19 History fluticasone propion-salmeterol 1 inh INHALATION BID 09/05/18 05/13/19 History [Advair Diskus] furosemide 40 mg PO BID 03/10/19 05/13/19 History spironolactone 100 mg PO QAM 04/09/19 05/13/19 History diphenhydramine HCl [Benadryl] 25 - 50 mg PO Q6 PRN #60 cap 04/22/19 05/13/19 Rx metformin 1,000 mg PO BIDM 05/08/19 05/13/19 History oxycodone 10 mg PO Q6H PRN 05/08/19 05/13/19 History warfarin 10 mg PO SUMOWEFR 05/08/19 05/13/19 History warfarin 15 mg PO TUTHSA 05/08/19 05/13/19 History ferrous sulfate 325 mg PO QAM 05/13/19 05/13/19 History Patient History Medical History Pulmonary nodule (Chronic) CT chest 04/12/18 - 4 mm RUL nodule, f/u 12 months Venous insufficiency (chronic) (peripheral) (Chronic) COPD (chronic obstructive pulmonary disease) (Chronic) Depression (Chronic) Cirrhosis History of MRSA infection COPD (chronic obstructive pulmonary disease) (Chronic) GERD (gastroesophageal reflux disease) (Chronic) Tobacco abuse (Chronic) Chronic ulcer of lower extremity (Chronic) bilateral Chronic venous stasis dermatitis of both lower extremities (Chronic) Hypercoagulable state (Chronic) Prothrombin Factor II Mutation, 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, borderline hyperhomocystemia Anxiety (Chronic) MRSA (methicillin resistant Staphylococcus aureus) infection (Chronic) History of ETOH abuse (Chronic) Chronic narcotic use (Chronic) Type 2 diabetes mellitus (Chronic) Chronic deep vein thrombosis (DVT) (Chronic) Anxiety COPD (chronic obstructive pulmonary disease) Cellulitis Chronic deep vein thrombosis (DVT) Chronic narcotic use Chronic ulcer of leg "b/l" Chronic venous stasis dermatitis of both lower extremities Depression GERD (gastroesophageal reflux disease) HTN (hypertension) History of ETOH abuse Hypercoagulable state On 04/12/18 14:03 Yanira Martinez wrote "Prothrombin Factor II Mutation, 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 Chaudhari History of drainage of abscess [address] 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, boderline hyperhomocystemia Social History Preferred Language: Welsh Communication Ability: Effective Visual Impairment: No Limitations Hearing Ability: Normal Corporate Strategy Intern Required: No Beliefs That Will Affect Care: None marital status: Current Living Situation: Alone Other Information That Helps Us Care for You: No Feels Safe at Home: Yes Safety Concerns: Feels Safe At This Time Smoking Status: Current every day smoker Tobacco Type: cigarettes ; Cigarettes Per Day: 3 ; Do You Dip or Chew Tobacco: No ; Second Hand Exposure: No ; Tobacco Cessation Education Requested by Patient: No Hx Alcohol Use: No Hx Substance Use: No Review of Systems Review of Systems: All systems reviewed & are unremarkable except as noted in HPI & below Physical Exam Constitutional: WD/WN, vitals as above comfortable; no acute distress Eyes: PERRL, conjunctivae normal, anicteric sclerae ENMT: external ear and nose normal, oropharynx normal Neck: trachea midline, no thyromegaly neck nontender Respiratory: normal respiratory effort, lungs clear to auscultation normal percussion; does not use accessory muscles Cardiovascular: Rate/Rhythm: regular rate and regular rhythm Heart Sounds: normal S1 and normal S2; no gallop, no murmur and no cardiac rub Vessels: normal peripheral pulses; no JVD Gastrointestinal (Abdomen): normal bowel sounds, soft, nontender, no hepatosplenomegaly Musculoskeletal: no cyanosis or clubbing, extremities motor strength 5/5 Spine: thoracic spine normal to inspection and lumbar spine normal to inspecti on; no cervical spinal tenderness Skin: normal turgor, + ulcer (Multiple superficial), + induration (Both lower extremities), + crusts and + erythema (Both lower extremities) Neurologic: patellar DTR's 2+ bilat, sensation intact no focal motor deficits Psychiatric: A+Ox3, euthymic affect Orientation: cooperative Lymphatic: no cervical or axillary lymphadenopathy no inguinal lymphadenopathy Results & Data Vital Signs (Past 12 Hours) Vital Signs Temp Pulse Pulse Resp BP BP Pulse Ox 05/13/19 13:03 36.7 C 77 16 119/80 96 05/13/19 11:29 80 20 127/78 97 05/13/19 10:18 91 H 16 118/91 96 05/13/19 09:29 96 H 18 111/81 96 05/13/19 08:19 36.7 C 107 H 20 149/89 H 98 Laboratory Results Short CBC 05/13/19 Range/Units 09:18 WBC 4.63 L (4.8-10.8) K/uL Hgb 12.3 L (14.0-18.0) g/dL Hct 38.1 L (42-52) % Plt Count 117 L (130-400) K/uL BMP 05/13/19 09:18 Sodium 137 Potassium 3.9 Chloride 104 Carbon Dioxide 26 BUN 6 L Creatinine 0.92 Glucose 198 H Calcium 9.0 Liver Function 05/13/19 Range/Units 09:18 Total Bilirubin 0.7 (0.2-1) mg/dl AST 15 (15-37) U/L ALT 30 (12-78) U/L Alkaline Phosphatase 72 (45-117) U/L Albumin 3.4 (3.4-5.0) gm/dl Urine 05/13/19 Range/Units 13:02 Urine Color Dark Yellow Urine Appearance Turbid A (Clear) Urine pH 6.5 (4.5-7.5) Ur Specific [place] 1.038 H (1.000-1.030) Urine Protein 1+ H (Negative) Urine Glucose (UA) 2+ H (Negative) Diagnostic Findings CT chest wo con CLINICAL HISTORY: 44 years-old Male presenting with follow up abn opacity on xray. TECHNIQUE: Multidetector CT imaging of the chest was performed without the use of intravenous contrast. IV contrast: None. One or more dose lowering techniques were used consistent with the principles of ALARA (as low as reasonably achievable), including automatic exposure control, mA or kV adjustment to individual patient size, and/or use of iterative reconstruction. COMPARISON: CTA chest from 04/12/2018. CT DOSE (mGy.cm): The estimated cumulative dose is 569.21 mGy.cm. 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 Soft tissues: Normal thyroid and thoracic inlet. Severe gynecomastia. No axillary, supraclavicular, mediastinal, or hilar lymphadenopathy. Normal aorta. Top normal heart size. Coronary artery calcification. No pericardial or pleural effusion. Hepatic steatosis. The spleen may be enlarged but is unchanged from prior. Lungs and airways: No pneumothorax. Central airways patent. Pulmonary arteries are not significantly enlarged relative to adjacent bronchi. No interlobular septal thickening. Interval development of significant patchy peribronchovascular and peripheral groundglass opacities in the upper lobes right greater than left. Mosaic attenuation in the lower lobes. Musculoskeletal: Normal osseous structures. IMPRESSION: 1. Interval development of extensive patchy peribronchovascular peripheral groundglass infiltrates consistent with an atypical pneumonia. 2. Mosaic attenuation the lower lobes suggest small airways or reactive airways disease. 3. Given the presence of the opacities, evaluation of pulmonary nodule is limited. Electronically signed by: Antoni Rod M.D. 05/13/2019 12:15 PM Dictated: 05/13/19 1209 Transcribed: 05/13/19 1209 PG Care Time/CCT Total # of Minutes Spent Total Time Spent with Patient: Total time spent is greater than 50% in coordination of care (as documented) at patient's floor/unit and/or counseling patient:
[2019-05-13] MEDS: FUROSEMIDE 40 MG TAB PO SCH (15:43)
[2019-05-13] MEDS: WARFARIN SOD 10 MG TAB PO SCH (15:43)
--- NOTE | 2019-05-13 16:23 | Emergency Department Note ---
Entered by Andi Joya acting as a scribe for Santiago Milligan MD History of Present Illness General Chief complaint: Infection Stated complaint: INFECTION LEFT LEG Time Seen by Provider: 05/13/19 08:31 Source: patient History of Present Illness Provider complaint: Infection Onset (ago): year(s) 2 Location: lower extremity, left and right Severity: similar to prior episodes Pain Consistency: + other (Worsening) Maximum Pain Intensity: 7 Current Pain Intensity: 7 Relieved By: + none Exacerbated By: + other (Palpating) Associated symptoms: + cough and + fever/chills The patient is a 44 year old male who presents to the Emergency Room with complaints of a worsening bilateral ankle infection that has been an ongoing problem for the past 2 years but started worsening last week. The patient rates his pain around the infection as a 7/10 and notes it is worse with palpating the area. The patient notes that he [facility] up [facility], however he was sent here last week and was put on Dalvance. The patient notes his symptoms have not improved since being on the antibiotic and he had a fever last night so he was told to come back in to the ED. The patient adds that he has had a dry cough for the past couple of days. The patient has a history of MRSA. Home Medications Home Medications Medication Instructions Recorded Confirmed Type albuterol sulfate [Ventolin HFA] 1 puff INHALATION Q4H PRN 05/09/18 05/13/19 History docusate sodium [Colace] 200 mg PO BID 05/09/18 05/13/19 History folic acid 1 mg PO QAM 05/09/18 05/13/19 History omeprazole 20 mg PO BID 05/09/18 05/13/19 History gabapentin 300 mg PO TID 08/16/18 05/13/19 History fluticasone propion-salmeterol 1 inh INHALATION BID 09/05/18 05/13/19 History [Advair Diskus] furosemide 40 mg PO BID 03/10/19 05/13/19 History spironolactone 100 mg PO QAM 04/09/19 05/13/19 History diphenhydramine HCl [Benadryl] 25 - 50 mg PO Q6 PRN #60 cap 04/22/19 05/13/19 Rx metformin 1,000 mg PO BIDM 05/08/19 05/13/19 History oxycodone 10 mg PO Q6H PRN 05/08/19 05/13/19 History warfarin 10 mg PO SUMOWEFR 05/08/19 05/13/19 History warfarin 15 mg PO TUTHSA 05/08/19 05/13/19 History ferrous sulfate 325 mg PO QAM 05/13/19 05/13/19 History Allergies Allergy/AdvReac Type Severity Reaction Status Date / Time peas Allergy Severe Swelling Verified 05/13/19 08:39 of Lip/Tongue/Throat Bactrim Allergy Intermediate hives Verified 04/12/18 15:58 sulfamethoxazole Allergy Intermediate hives Verified 05/13/19 08:39 trimethoprim Allergy Intermediate hives Verified 05/13/19 08:39 tuna oil Allergy Unknown . Verified 05/13/19 08:39 Past Med/Surg History Medical History Pulmonary nodule (Chronic) CT chest 04/12/18 - 4 mm RUL nodule, f/u 12 months Venous insufficiency (chronic) (peripheral) (Chronic) COPD (chronic obstructive pulmonary disease) (Chronic) Depression (Chronic) Cirrhosis History of MRSA infection COPD (chronic obstructive pulmonary disease) (Chronic) GERD (gastroesophageal reflux disease) (Chronic) Tobacco abuse (Chronic) Chronic ulcer of lower extremity (Chronic) bilateral Chronic venous stasis dermatitis of both lower extremities (Chronic) Hypercoagulable state (Chronic) Prothrombin Factor II Mutation, 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, borderline hyperhomocystemia Anxiety (Chronic) MRSA (methicillin resistant Staphylococcus aureus) infection (Chronic) History of ETOH abuse (Chronic) Chronic narcotic use (Chronic) Type 2 diabetes mellitus (Chronic) Chronic deep vein thrombosis (DVT) (Chronic) Anxiety COPD (chronic obstructive pulmonary disease) Cellulitis Chronic deep vein thrombosis (DVT) Chronic narcotic use Chronic ulcer of leg "b/l" Chronic venous stasis dermatitis of both lower extremities Depression GERD (gastroesophageal reflux disease) HTN (hypertension) History of ETOH abuse Hypercoagulable state On 04/12/18 14:03 Yanira Martinez wrote "Prothrombin Factor II Mutation, 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 Chaudhari History of drainage of abscess [address] 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, boderline hyperhomocystemia Social History Preferred Language: Indonesian Communication Ability: Effective Visual Impairment: No Limitations Hearing Ability: Normal Travel Writer Required: No Beliefs That Will Affect Care: None marital status: Current Living Situation: Alone Other Information That Helps Us Care for You: No Feels Safe at Home: Yes Safety Concerns: Feels Safe At This Time Smoking Status: Current every day smoker Tobacco Type: cigarettes ; Cigarettes Per Day: 3 ; Do You Dip or Chew Tobacco: No ; Second Hand Exposure: No ; Tobacco Cessation Education Requested by Patient: No Hx Alcohol Use: No Hx Substance Use: No Review of Systems See HPI for pertinent positives & negatives. and A total of 10 systems reviewed and were otherwise negative Physical Exam Vital Signs Vital Signs - 24 hr 05/13/19 08:19 05/13/19 09:29 05/13/19 10:18 Temperature 36.7 C Temperature Source Oral Sepsis Recent Fever Within 48 Hours Yes Sepsis New/Unexplained Change in Mental Status No Sepsis Action Taken by Nursing No Action Required Pulse Rate 107 H Pulse Rate [Left Finger] 96 H 91 H Respiratory Rate 20 18 16 Respiratory Effort / Characteristics Non-Labored Spontaneous Blood Pressure 149/89 H Blood Pressure [Right Arm] 111/81 118/91 Blood Pressure Mean 109 Blood Pressure Mean [Right Arm] 91 100 Blood Pressure Position Sitting Pulse Oximetry 98 96 96 Oxygen Delivery Method Room Air Room Air Room Air GENERAL: Awake, alert, well-appearing, in no distress HENT: Normocephalic, atraumatic. Oropharynx unremarkable. EYES: Normal conjunctiva. Sclera non-icteric. NECK: Supple. No nuchal rigidity. FROM. No masses. RESPIRATORY: Clear to auscultation. No wheezes. No rales. Normal respiratory effort. CARDIAC: Normal rate. Normal rhythm. No murmurs. No rubs. Extremities warm and well perfused. Pulses equal. No JVD. GI: Soft, non-distended. No tenderness to palpation. No rebound or guarding. No masses. RECTAL: Deferred. MUSCULOSKELETAL: Atraumatic. Chest examination reveals no tenderness. The back is symmetrical on inspection without obvious abnormality. There is no CVA tenderness to palpation. No joint edema. LOWER EXTREMITIES: Bilateral legs appear chronically crusted with dirt. Two open areas noted with granulomatous tissue present. NEURO: Normal sensorium. No sensory or motor deficits noted. Course 0850: Past medical records reviewed. The patient was evaluated in room A03. The patient was no agreeable to the exam or blood work but would like something for the pain. The patient also would not let me finish statements upon the assessment. 0939: I spoke to Dr. Ana Adan about the patient's case. He recommended that the patient follow up as an outpatient for further treatment. 0941: I updated the patient on the discussion I had with Dr. Perez and the treatment plan. The patient is refusing to go home and would like a second opinion from a [facility]. 0947: I spoke to Yanira Herrera [facility] under Dr. Jorge Alberto Marino about the patient's case. They are going to accept him for further evaluation. Consultations Consultation #1: I spoke to Dr. Ana Adan about the patient's case. He recommended that the patient follow up as an outpatient for further treatment. Time: 09:39 Consultation #2: I spoke to Yanira Herrera [facility] under Dr. Jorge Alberto Marino about the patient's case. They are going to accept him for further evaluation. Time: 09:47 Administered Medications Albuterol (Duoneb) 3 ml NEB QIDR OTILIA Stop: 06/12/19 14:59 Last Admin: 05/15/19 16:15 Dose: 3 ml Documented by: [id number] Admin: 05/15/19 11:23 Dose: 3 ml Documented by: [id number] Admin: 05/15/19 07:22 Dose: 3 ml Documented by: [id number] Admin: 05/14/19 19:45 Dose: 3 ml Documented by: [id number] Admin: 05/14/19 15:25 Dose: 3 ml Documented by: [id number] Admin: 05/14/19 11:35 Dose: 3 ml Documented by: [id number] Admin: 05/14/19 07:21 Dose: 3 ml Documented by: [id number] Admin: 05/13/19 18:58 Dose: 3 ml Documented by: [id number] Admin: 05/13/19 15:07 Dose: 3 ml Documented by: [id number] Diphenhydramine HCl (Benadryl Capsule) 25 mg PO Q6 PRN PRN Reason: Itching Stop: 06/12/19 18:31 Last Admin: 05/13/19 19:31 Dose: 25 mg Documented by: [id number] Docusate Sodium (Colace) 200 mg PO BID OTILIA Stop: 06/12/19 20:59 Last Admin: 05/15/19 08:24 Dose: 200 mg Documented by: [id number] Admin: 05/14/19 20:57 Dose: 200 mg Documented by: [id number] Admin: 05/14/19 08:58 Dose: 200 mg Documented by: [id number] Admin: 05/13/19 21:24 Dose: 200 mg Documented by: [id number] Ferrous Sulf[facility] (Feosol) [facility] Stop: 06/13/19 08:59 Last Admin: 05/15/19 08:23 Dose: 325 mg Documented by: [id number] Admin: 05/14/19 08:58 Dose: 325 mg Documented by: [id number] Folic Acid (Folvite) 1 mg PO QAM [facility] Stop: 06/13/19 08:59 Last Admin: 05/15/19 08:23 Dose: 1 mg Documented by: [id number] Admin: 05/14/19 08:57 Dose: 1 mg Documented by: [id number] Furosemide (Lasix) 40 mg PO DAILY@0800,1600 [facility] Stop: 06/12/19 15:59 Last Admin: 05/15/19 15:50 Dose: 40 mg Documented by: [id number] Admin: 05/15/19 08:23 Dose: 40 mg Documented by: [id number] Admin: 05/14/19 15:31 Dose: 40 mg Documented by: [id number] Admin: 05/14/19 08:57 Dose: 40 mg Documented by: [id number] Admin: 05/13/19 15:43 Dose: 40 mg Documented by: [id number] Gabapentin (Neurontin) 300 mg PO TID OTILIA Stop: 06/12/19 13:59 Last Admin: 05/15/19 13:07 Dose: 300 mg Documented by: [id number] Admin: 05/15/19 08:24 Dose: 300 mg Documented by: [id number] Admin: 05/14/19 20:57 Dose: 300 mg Documented by: [id number] Admin: 05/14/19 14:16 Dose: 300 mg Documented by: [id number] Admin: 05/14/19 08:57 Dose: 300 mg Documented by: [id number] Admin: 05/13/19 21:26 Dose: 300 mg Documented by: [id number] Admin: 05/13/19 14:04 Dose: 300 mg Documented by: [id number] Ceftaroline Fosamil 600 mg/ (Sodium Chloride) 270 mls @ 250 mls/hr IV Q12H OTILIA; Protocol Stop: 05/23/19 13:59 Last Infusion: 05/15/19 14:31 Dose: 0 mls/hr Documented by: [id number] Admin: 05/15/19 13:25 Dose: 250 mls/hr Documented by: [id number] Infusion: 05/15/19 04:09 Dose: 0 mls/hr Documented by: [id number] Admin: 05/15/19 02:06 Dose: 250 mls/hr Documented by: [id number] Infusion: 05/14/19 15:28 Dose: 0 mls/hr Documented by: [id number] Admin: 05/14/19 14:16 Dose: 250 mls/hr Documented by: [id number] Infusion: 05/14/19 04:42 Dose: 0 mls/hr Documented by: [id number] Admin: 05/14/19 02:23 Dose: 250 mls/hr Documented by: [id number] Infusion: 05/13/19 15:34 Dose: 0 mls/hr Documented by: [id number] Admin: 05/13/19 14:04 Dose: 250 mls/hr Documented by: [id number] Doxycycline Hyclate 100 mg/ (Dextrose) 110 mls @ 50 mls/hr IV BID OTILIA; Protocol Stop: 05/20/19 20:59 Last Infusion: 05/15/19 10:43 Dose: 0 mls/hr Documented by: [id number] Admin: 05/15/19 08:22 Dose: 50 mls/hr Documented by: [id number] Infusion: 05/14/19 23:18 Dose: 0 mls/hr Documented by: [id number] Admin: 05/14/19 21:00 Dose: 50 mls/hr Documented by: [id number] Infusion: 05/14/19 11:17 Dose: 0 mls/hr Documented by: [id number] Admin: 05/14/19 09:05 Dose: 50 mls/hr Documented by: [id number] Infusion: 05/14/19 00:04 Dose: 0 mls/hr Documented by: [id number] Admin: 05/13/19 21:27 Dose: 50 mls/hr Documented by: [id number] Insulin Aspart (Novolog Flexpen) 0 units SC ACHS OTILIA Stop: 06/12/19 12:56 Last Admin: 05/15/19 18:58 Dose: 3 units Documented by: [id number] Cosigned by: [id number] Admin: 05/15/19 13:07 Dose: 10 units Documented by: [id number] Cosigned by: [id number] Admin: 05/15/19 08:31 Dose: 11 units Documented by: [id number] Cosigned by: [id number] Admin: 05/14/19 21:07 Dose: 12 units Documented by: [id number] Cosigned by: [id number] Admin: 05/14/19 18:05 Dose: 6 units Documented by: [id number] Cosigned by: [id number] Admin: 05/14/19 13:04 Dose: 7 units Documented by: [id number] Cosigned by: [id number] Admin: 05/14/19 09:00 Dose: 9 units Documented by: [id number] Cosigned by: [id number] Admin: 05/13/19 21:21 Dose: 3 units Documented by: [id number] Cosigned by: [id number] Admin: 05/13/19 18:20 Dose: 4 units Documented by: [id number] Cosigned by: [id number] Admin: 05/13/19 13:36 Dose: 3 units Documented by: [id number] Cosigned by: [id number] Insulin Glargine (Lantus Solostar Pen) 0 units SC BID OTILIA; Protocol Stop: 06/12/19 20:59 Last Admin: 05/15/19 08:29 Dose: 5 units Documented by: [id number] Cosigned by: [id number] Admin: 05/14/19 21:06 Dose: 10 units Documented by: [id number] Cosigned by: [id number] Admin: 05/14/19 08:59 Dose: 5 units Documented by: [id number] Cosigned by: [id number] Admin: 05/13/19 21:22 Dose: 10 units Documented by: [id number] Cosigned by: [id number] Miscellaneous (Remove Nicoderm Patch) 1 ea N/A HS OTILIA Stop: 06/13/19 20:59 Last Admin: 05/14/19 20:57 Dose: Not Given Documented by: [id number] Nicotine (Nicoderm Cq) 14 mg TD QAM OTILIA Stop: 06/12/19 15:59 Last Admin: 05/15/19 08:24 Dose: 14 mg Documented by: [id number] Admin: 05/13/19 18:20 Dose: Not Given Documented by: [id number] Oxycodone HCl (Roxicodone Immediate Rel) 5 - 10 mg PO Q6H PRN PRN Reason: pain Stop: 05/27/19 12:56 Last Admin: 05/15/19 18:56 Dose: 10 mg Documented by: [id number] Admin: 05/15/19 12:25 Dose: 10 mg Documented by: [id number] Admin: 05/15/19 05:56 Dose: 10 mg Documented by: [id number] Admin: 05/14/19 23:24 Dose: 10 mg Documented by: [id number] Admin: 05/14/19 17:00 Dose: 10 mg Documented by: [id number] Admin: 05/14/19 11:00 Dose: 10 mg Documented by: [id number] Admin: 05/14/19 05:05 Dose: 10 mg Documented by: [id number] Admin: 05/13/19 19:31 Dose: 10 mg Documented by: [id number] Pantoprazole Sodium (Protonix) 40 mg PO BID OTILIA; Protocol Stop: 06/12/19 20:59 Last Admin: 05/15/19 08:24 Dose: 40 mg Documented by: [id number] Admin: 05/14/19 20:58 Dose: 40 mg Documented by: [id number] Admin: 05/14/19 08:57 Dose: 40 mg Documented by: [id number] Admin: 05/13/19 21:26 Dose: 40 mg Documented by: [id number] Fluticasone/Salmeterol (Advair Diskus 500/50) 1 puffs INH BID [facility] Stop: 06/12/19 20:59 Last Admin: 05/15/19 08:22 Dose: 1 puffs Documented by: [id number] Admin: 05/14/19 20:57 Dose: 1 puffs Documented by: [id number] Admin: 05/14/19 08:57 Dose: 1 puffs Documented by: [id number] Admin: 05/13/19 21:27 Dose: 1 puffs Documented by: [id number] Spironolactone (Aldactone) 100 mg PO QAM [facility] Stop: 06/13/19 08:59 Last Admin: 05/15/19 08:23 Dose: 100 mg Documented by: [id number] Admin: 05/14/19 08:58 Dose: 100 mg Documented by: [id number] Warfarin Sodium (Coumadin) 10 mg PO SuMoWeFr@1600 [facility] Stop: 06/12/19 15:59 Last Admin: 05/15/19 15:49 Dose: 10 mg Documented by: [id number] Admin: 05/13/19 15:43 Dose: 10 mg Documented by: [id number] Warfarin Sodium (Coumadin) 15 mg PO TuThSa@1600 [facility] Stop: 06/13/19 15:59 Last Admin: 05/14/19 15:32 Dose: 15 mg Documented by: [id number] Discontinued Medications Enoxaparin Sodium (Lovenox 1 Mg/Kg Providers Use Dosing Set) 1 mg SQ Q12H [facility] Stop: 06/12/19 11:44 Last Admin: 05/13/19 13:00 Dose: Not Given Documented by: [id number] Enoxaparin Sodium (Lovenox) 111 mg SQ NOW ONE Stop: 05/13/19 12:01 Last Admin: 05/13/19 12:08 Dose: 111 mg Documented by: [id number] Enoxaparin Sodium (Lovenox) 111 mg SQ BID [facility] Stop: 06/12/19 20:59 Last Admin: 05/14/19 08:58 Dose: 111 mg Documented by: [id number] Admin: 05/13/19 21:24 Dose: 111 mg Documented by: [id number] Heparin Sodium/Dextrose () 1 ea IV ONE ONE; Protocol Stop: 05/13/19 11:20 Last Admin: 05/13/19 12:09 Dose: Not Given Documented by: [id number] Hydromorphone HCl (Dilaudid) 1 mg IV Q15M PRN PRN Reason: Pain Stop: 05/27/19 08:51 Last Admin: 05/13/19 09:19 Dose: 1 mg Documented by: [id number] Ceftriaxone Sodium (Rocephin) 2,000 mg in 70 mls @ 140 mls/hr IV NOW STA Stop: 05/13/19 09:23 Last Infusion: 05/13/19 09:50 Dose: 0 mls/hr Documented by: [id number] Admin: 05/13/19 09:19 Dose: 140 mls/hr Documented by: [id number] Vancomycin HCl 2,250 mg/ (Sodium Chloride) 545 mls @ 200 mls/hr IV NOW ONE Stop: 05/13/19 11:37 Last Infusion: 05/13/19 13:41 Dose: 0 mls/hr Documented by: [id number] Admin: 05/13/19 09:16 Dose: 200 mls/hr Documented by: [id number] Heparin Sodium/Dextrose (Heparin Sodium/Dextrose) 25,000 units in 500 mls @ 0.02 mls/hr IV .Q24H OTILIA; Protocol Stop: 06/12/19 11:18 Last Admin: 05/13/19 13:01 Dose: Not Given Documented by: [id number] Ketorolac Tromethamine (Toradol) 30 mg IV NOW STA Stop: 05/13/19 08:53 Last Admin: 05/13/19 09:19 Dose: 30 mg Documented by: [id number] Ondansetron HCl (Zofran) 4 mg IV NOW STA Stop: 05/13/19 08:53 Last Admin: 05/13/19 09:19 Dose: 4 mg Documented by: [id number] Oxycodone HCl (Roxicodone Immediate Rel) 10 mg PO Q6H PRN PRN Reason: pain Stop: 05/27/19 12:56 Last Admin: 05/13/19 13:14 Dose: 10 mg Documented by: [id number] Oxycodone HCl (Roxicodone Immediate Rel) Confirm Administered Dose 10 mg .ROUTE .STK-MED ONE Stop: 05/13/19 13:12 Last Admin: 05/13/19 13:23 Dose: Not Given Documented by: [id number] Medical Decision Making Differential Diagnosis Differential diagnosis includes etiologies such as cellulitis, abscess, MRSA infection, DVT, necrotizing fasciitis, dermatitis, drug eruption, as well as others were entertained. Medical Records Attestation: I reviewed the patient's medical records. Home Medications Current Medication List: was personally reviewed by me Laboratory Data Attestation: I reviewed the patient's lab results. Result diagrams: 05/15/19 07:18 05/15/19 07:18 Lab Results 05/13/19 05/13/19 05/13/19 Range/Units 09:13 09:18 09:18 WBC 4.63 L (4.8-10.8) K/uL RBC 4.43 L (4.7-6.1) M/uL Hgb 12.3 L (14.0-18.0) g/dL Hct 38.1 L (42-52) % MCV 86.0 (80-100) fL MCH 27.8 (25-34) pg MCHC 32.3 (32-36) g/dL RDW Std Deviation 55.4 H (36.4-46.3) fL RDW Coeff of Kip 18.0 H (11.5-14.5) % Plt Count 117 L (130-400) K/uL MPV 9.7 (7.4-10.4) fL Immature Gran % (Auto) 0.2 % Neut % (Auto) 70.2 % Lymph % (Auto) 17.1 % Desha % (Auto) 11.0 % Eos % (Auto) 1.1 % Baso % (Auto) 0.4 % Immature Gran # (Auto) 0.01 (0.00-0.02) K/uL Neut # (Auto) 3.25 (1.4-6.5) K/uL Lymph # (Auto) 0.79 L (1.2-3.4) K/uL Desha # (Auto) 0.51 (0.11-0.59) K/uL Eos # (Auto) 0.05 (0-0.5) K/uL Baso # (Auto) 0.02 (0-0.2) K/uL ESR (0-14) mm/hr PT 13.5 H (9.0-12.0) Seconds INR 1.3 H (0.9-1.1) APTT 27.8 (21.0-31.0) Seconds PTT Ratio 1.0 Sodium (136-145) mmol/L Potassium (3.5-5.1) mmol/L Chloride (98-107) mmol/L Carbon Dioxide (21-32) mmol/L Anion Gap (3-11) BUN (7-18) mg/dl Creatinine (0.6-1.4) mg/dl Est Cr Clr Drug Dosing ml/min Est GFR ( Amer) Est GFR (Non-Af Amer) BUN/Creatinine Ratio (10-20) Glucose (70-99) mg/dl Lactate 1.9 (0.4-2.0) mmol/L Calcium (8.5-10.1) mg/dl Total Bilirubin (0.2-1) mg/dl AST (15-37) U/L ALT (12-78) U/L Alkaline Phosphatase (45-117) U/L C-Reactive Protein (0-0.29) mg/dl Total Protein (6.4-8.2) gm/dl Albumin (3.4-5.0) gm/dl Globulin (2.5-4.0) gm/dl Albumin/Globulin Ratio (0.9-2) Procalcitonin (0-0.5) ng/ml 05/13/19 05/13/19 05/13/19 Range/Units 09:18 09:18 09:18 WBC (4.8-10.8) K/uL RBC (4.7-6.1) M/uL Hgb (14.0-18.0) g/dL Hct (42-52) % MCV (80-100) fL MCH (25-34) pg MCHC (32-36) g/dL RDW Std Deviation (36.4-46.3) fL RDW Coeff of Kip (11.5-14.5) % Plt Count (130-400) K/uL MPV (7.4-10.4) fL Immature Gran % (Auto) % Neut % (Auto) % Lymph % (Auto) % Desha % (Auto) % Eos % (Auto) % Baso % (Auto) % Immature Gran # (Auto) (0.00-0.02) K/uL Neut # (Auto) (1.4-6.5) K/uL Lymph # (Auto) (1.2-3.4) K/uL Desha # (Auto) (0.11-0.59) K/uL Eos # (Auto) (0-0.5) K/uL Baso # (Auto) (0-0.2) K/uL ESR > 90 H (0-14) mm/hr PT (9.0-12.0) Seconds INR (0.9-1.1) APTT (21.0-31.0) Seconds PTT Ratio Sodium 137 (136-145) mmol/L Potassium 3.9 (3.5-5.1) mmol/L Chloride 104 (98-107) mmol/L Carbon Dioxide 26 (21-32) mmol/L Anion Gap 7.0 (3-11) BUN 6 L (7-18) mg/dl Creatinine 0.92 (0.6-1.4) mg/dl Est Cr Clr Drug Dosing 124.7 ml/min Est GFR ( Amer) 116.0 Est GFR (Non-Af Amer) 100.1 BUN/Creatinine Ratio 6.5 L (10-20) Glucose 198 H (70-99) mg/dl Lactate (0.4-2.0) mmol/L Calcium 9.0 (8.5-10.1) mg/dl Total Bilirubin 0.7 (0.2-1) mg/dl AST 15 (15-37) U/L ALT 30 (12-78) U/L Alkaline Phosphatase 72 (45-117) U/L C-Reactive Protein 9.39 H (0-0.29) mg/dl Total Protein 8.5 H (6.4-8.2) gm/dl Albumin 3.4 (3.4-5.0) gm/dl Globulin 5.1 H (2.5-4.0) gm/dl Albumin/Globulin Ratio 0.7 L (0.9-2) Procalcitonin (0-0.5) ng/ml 05/13/19 Range/Units 09:28 WBC (4.8-10.8) K/uL RBC (4.7-6.1) M/uL Hgb (14.0-18.0) g/dL Hct (42-52) % MCV (80-100) fL MCH (25-34) pg MCHC (32-36) g/dL RDW Std Deviation (36.4-46.3) fL RDW Coeff of Kip (11.5-14.5) % Plt Count (130-400) K/uL MPV (7.4-10.4) fL Immature Gran % (Auto) % Neut % (Auto) % Lymph % (Auto) % Desha % (Auto) % Eos % (Auto) % Baso % (Auto) % Immature Gran # (Auto) (0.00-0.02) K/uL Neut # (Auto) (1.4-6.5) K/uL Lymph # (Auto) (1.2-3.4) K/uL Desha # (Auto) (0.11-0.59) K/uL Eos # (Auto) (0-0.5) K/uL Baso # (Auto) (0-0.2) K/uL ESR (0-14) mm/hr PT (9.0-12.0) Seconds INR (0.9-1.1) APTT (21.0-31.0) Seconds PTT Ratio Sodium (136-145) mmol/L Potassium (3.5-5.1) mmol/L Chloride (98-107) mmol/L Carbon Dioxide (21-32) mmol/L Anion Gap (3-11) BUN (7-18) mg/dl Creatinine (0.6-1.4) mg/dl Est Cr Clr Drug Dosing ml/min Est GFR ( Amer) Est GFR (Non-Af Amer) BUN/Creatinine Ratio (10-20) Glucose (70-99) mg/dl Lactate (0.4-2.0) mmol/L Calcium (8.5-10.1) mg/dl Total Bilirubin (0.2-1) mg/dl AST (15-37) U/L ALT (12-78) U/L Alkaline Phosphatase (45-117) U/L C-Reactive Protein (0-0.29) mg/dl Total Protein (6.4-8.2) gm/dl Albumin (3.4-5.0) gm/dl Globulin (2.5-4.0) gm/dl Albumin/Globulin Ratio (0.9-2) Procalcitonin 0.06 (0-0.5) ng/ml Imaging Data Radiologist's Impression: Radiology results as stated below per my review and the radiologist's interpretation: XR chest 1V portable CLINICAL HISTORY: 44 years-old Male presenting with Sepsis. TECHNIQUE: Portable upright AP view of the chest was obtained. COMPARISON: 12/04/2018. FINDINGS: Cardiac silhouette borderline enlarged. Pulmonary vascular prominence. Coarsened lung markings as on prior exam.. Irregular opacity suspected in the right midlung, which may be new or increased from prior. No other focal opacity. No large effusion or pneumothorax. Osseous structures normal. Upper abdomen normal. IMPRESSION: 1. Irregular infiltrate in the right midlung, which may be new or increased fro m prior. This does not have a typical appearance of pneumonia though this is difficult to exclude. Consider further imaging for better characterization. Electronically signed by: Antoni Rod M.D. 05/13/2019 9:48 AM Blood Pressure Blood Pressure Findings: Normal blood pressure Blood Pressure Disposition: further management by hospitalist MDM Narrative This is a 44-year-old male who presents emergency complaining of bilateral cellulitis. The patient is requesting pain medication and I will note will not let me even finish his examination or interview. He is demanding that I speak with Dr. Perez who is on-call for infectious disease. He also did not present back to the emergency department within 48 hours of receiving his [place]. He is demanding pain medication states he does not go to [facility]. He was started on Rocephin as well as vancomycin here in the emergency department. I will note that the patient does not have an elevation in his white blood cell count. I did discuss the case with infectious disease who felt that the patient could go home on oral antibiotics. I also concurred with this the patient is requesting what would now be a fourth opinion from a different doctor and is requesting to see the hospitalist. I did discuss the case with the hospitalist who did agree to admit the patient. Impression & Plan Subtherapeutic international normalized ratio (INR), Chronic venous stasis dermatitis of both lower extremities, COPD (chronic obstructive pulmonary diseas e), Bilateral lower leg cellulitis Discharge Plan Visit Data *Final* Discharge Date/Time: 05/13/19 12:05 Chief Complaint: Infection Stated Complaint: INFECTION LEFT LEG ED Provider: Santiago Milligan Discharge Problem: Subtherapeutic international normalized ratio (INR), Chronic venous stasis dermatitis of both lower extremities, COPD (chronic obstructive pulmonary disease), Bilateral lower leg cellulitis Patient Disposition: Admitted As Inpatient Discharge Instructions Interventions: ED Discharge Assessment Last Done: 05/13/19 12:05 The alanisibe's documentation has been prepared under my direction and personally reviewed by me in its entirety. I confirm that the note above accurately reflects all work, treatment, procedures, and medical decision making performed by me.
[2019-05-13] MEDS: NICOTINE 14 MG/24 HR PATCH TD SCH (18:20)
[2019-05-13] MEDS: OXYCODONE HCL IR 5 MG TAB (IMMEDIATE RELEASE) PO PRN (19:31)
[2019-05-13] MEDS: INSULIN GLARGINE SOLOSTAR 100 UNITS/ML 3 ML PEN SC SCH (21:22)
[2019-05-13] MEDS: ENOXAPARIN INJ 120 MG/0.8 ML SYR SQ SCH (21:24)
[2019-05-13] MEDS: DOCUSATE SODIUM 100 MG CAP PO SCH (21:24)
[2019-05-13] MEDS: PANTOprazole 40 MG TAB PO SCH (21:26)
[2019-05-13] MEDS: FLUTICASONE/SALMETEROL (ADVAIR) 500/50 INH 14 PUFF INH SCH (21:27)
[2019-05-13] MEDS: DOXYCYCLINE HYCLATE 100 MG in DEXTROSE 5% 100 ML IV SCH (21:27)
[2019-05-14] MEDS: CEFTAROLINE FOSAMIL ACETATE 600 MG in SODIUM CHLORIDE 0.9% 250 ML IV SCH ×2 (02:23→14:16)
[2019-05-14] MEDS: OXYCODONE HCL IR 5 MG TAB (IMMEDIATE RELEASE) PO PRN ×4 (05:05→23:24)
[2019-05-14 07:12] LABS: Basophils # (auto) 0.03 K/uL (0-0.2); Basophils % (auto) 1.1 %; Eosinophils # (auto) 0.08 K/uL (0-0.5); Eosinophils % (auto) 2.9 %; Hematocrit (blood only) 36.1 % (42-52); Hemoglobin 11.7 g/dL (14.0-18.0); Immature Granulocytes # (auto) 0.01 K/uL (0.00-0.02); Immature Granulocytes % (auto) 0.4 %; Lymphocytes # (auto) 0.42 K/uL (1.2-3.4); Lymphocytes % (auto) 15.1 %; Mean Corpuscular Hemoglobin 28.3 pg (25-34); Mean Corpuscular Hgb Conc 32.4 g/dL (32-36); Mean Corpuscular Volume 87.2 fL (80-100); Mean Platelet Volume 10.5 fL (7.4-10.4); Monocytes # (auto) 0.31 K/uL (0.11-0.59); Monocytes % (auto) 11.1 %; Neutrophils # (auto) 1.94 K/uL (1.4-6.5); Neutrophils % (auto) 69.4 %; Platelet Count 108 K/uL (130-400); RDW Coefficient of Variation 18.1 % (11.5-14.5); RDW Standard Deviation 57.4 fL (36.4-46.3); Red Blood Count 4.14 M/uL (4.7-6.1); White Blood Count 2.79 K/uL (4.8-10.8)
[2019-05-14 07:15] LABS: Prothrombin Time 19.3 Seconds (9.0-12.0)
[2019-05-14] MEDS: ALBUT/IPRATROP 3MG/0.5MG NEB 3 ML VIAL NEB SCH ×4 (07:21→19:45)
[2019-05-14 07:32] LABS: BUN Creatinine Ratio 7.7 (10-20); Calcium 8.7 mg/dl (8.5-10.1); Creatinine Clr Calc Pharmacy 131.9 ml/min; Est GFR (African American) 120.8; Est GFR (Non-African American) 104.2
[2019-05-14] MEDS: PANTOprazole 40 MG TAB PO SCH ×2 (08:57→20:58)
[2019-05-14] MEDS: GABAPENTIN 300 MG CAP PO SCH ×3 (08:57→20:57)
[2019-05-14] MEDS: FLUTICASONE/SALMETEROL (ADVAIR) 500/50 INH 14 PUFF INH SCH ×2 (08:57→20:57)
[2019-05-14] MEDS: FUROSEMIDE 40 MG TAB PO SCH ×2 (08:57→15:31)
[2019-05-14] MEDS: FOLIC ACID 1 MG TAB PO SCH (08:57)
[2019-05-14] MEDS: DOCUSATE SODIUM 100 MG CAP PO SCH ×2 (08:58→20:57)
[2019-05-14] MEDS: FERROUS SULFATE 325 MG TAB PO SCH (08:58)
[2019-05-14] MEDS: ENOXAPARIN INJ 120 MG/0.8 ML SYR SQ SCH (08:58)
[2019-05-14] MEDS: SPIRONOLACTONE 100 MG TAB PO SCH (08:58)
[2019-05-14] MEDS: INSULIN GLARGINE SOLOSTAR 100 UNITS/ML 3 ML PEN SC SCH ×2 (08:59→21:06)
[2019-05-14] MEDS: INSULIN ASPART 100 UNITS/ML 3 ML PEN SC SCH ×4 (09:00→21:07)
[2019-05-14] MEDS: DOXYCYCLINE HYCLATE 100 MG in DEXTROSE 5% 100 ML IV SCH ×2 (09:05→21:00)
[2019-05-14] MEDS: WARFARIN SOD 5 MG TAB PO SCH (15:32)
--- NOTE | 2019-05-14 16:09 | Hospitalist Progress Note ---
Date of Service May 14, 2019 Assessment & Plan (1) Chronic venous stasis dermatitis of both lower extremities: (2) Chronic ulcer of lower extremity: (3) Bilateral cellulitis of lower leg: B/L lower extremity cellulitis H/O recurrent Cellulitis Blood Cx: No growth to date Continue IV doxycycline and ceftaroline Day #2 Appreciate ID input Continue wound care Pain control Avoid IV Narcotics (4) Type 2 diabetes mellitus: Last A1C 8.1 03/25/2019 Hold metformin Continue lantus/novolog per protocol Monitor BGs (5) Cirrhosis: continue lasix, aldactone no signs of decompensation (6) Tobacco abuse: encourage smoking cessation (7) COPD (chronic obstructive pulmonary disease): continue Duoneb, home inhalers Pulmonary Hygiene (8) Chronic narcotic use: continue home pain meds (9) Anemia: Stable Monitor (10) Hypercoagulable state: Prothrombin Factor II Mutation, 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 INR:2.0 Continue warfarin Monitor (11) Chronic deep vein thrombosis (DVT): (12) Subtherapeutic international normalized ratio (INR): (13) Abnormal CXR: Atypical Pneumonia --CT Chest:Interval development of extensive patchy peribronchovascular peripheral groundglass infiltrates consistent with an atypical pneumonia. Mosaic attenuation the lower lobes suggest small airways or reactive airways disease. Given the presence of the opacities, evaluation of pulmonary nodule is limited. Continue IV Abx Follow up Blood Cx (14) DVT prophylaxis: On coumadin Code Status Full Code Disposition: To be determined based on Abx needs Subjective Patient is seen and examined at bedside Complains of mild pain of B/L feet States having dry cough Denies any shortness of breath, dizziness, nausea, abdominal pain Offers no other complaints Review of Systems Review of Systems: All systems reviewed & are unremarkable except as noted in HPI & below Physical Exam Physical Exam: Physical Exam: Vitals signs as noted above General Appearance:Moderately built and nourished, no apparent distress Head: normocephalic, Atraumatic Eyes: normal inspection, EOMI Neck: supple, Trachea midline Respiratory/Chest: Normal breath sounds, CTA Cardiovascular: S1, S2, No murmur Abdomen/GI:Soft, Non tender, Bowel sounds present Extremities/Musculoskelatal:normal inspection, B/L chronic venous stasis changes, Ulcers, skin thickened Neurologic/Psych:AAOX3, grossly no focal neurological deficits Skin: normal color, warm Results & Data Vital Signs (Past 12 Hours) Vital Signs Temp Pulse Pulse Resp BP Pulse Ox 05/14/19 15:27 77 16 95 05/14/19 15:12 36.8 C 78 16 118/73 96 05/14/19 11:37 70 14 95 05/14/19 07:23 68 14 96 05/14/19 07:02 36.6 C 75 18 99/63 L 96 Laboratory Results Short CBC 05/14/19 Range/Units 06:40 WBC 2.79 L (4.8-10.8) K/uL Hgb 11.7 L (14.0-18.0) g/dL Hct 36.1 L (42-52) % Plt Count 108 L (130-400) K/uL BMP 05/14/19 06:40 Sodium 140 Potassium 4.0 Chloride 109 H Carbon Dioxide 23 BUN 7 Creatinine 0.87 Glucose 150 H Calcium 8.7 (1) Chronic ulcer of lower extremity Laterality: unspecified laterality Non-pressure ulcer stage: unspecified non- pressure ulcer stage Qualified Code(s): L97.909 - Non-pressure chronic ulcer of unspecified part of unspecified lower leg with unspecified severity (2) Type 2 diabetes mellitus Diabetes mellitus fci insulin use: without intermission coordinator 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
[2019-05-15] MEDS: CEFTAROLINE FOSAMIL ACETATE 600 MG in SODIUM CHLORIDE 0.9% 250 ML IV SCH ×2 (02:06→13:25)
[2019-05-15] MEDS: OXYCODONE HCL IR 5 MG TAB (IMMEDIATE RELEASE) PO PRN ×3 (05:56→18:56)
[2019-05-15] MEDS: ALBUT/IPRATROP 3MG/0.5MG NEB 3 ML VIAL NEB SCH ×4 (07:22→19:23)
[2019-05-15 07:44] LABS: Basophils # (auto) 0.05 K/uL (0-0.2); Eosinophils # (auto) 0.07 K/uL (0-0.5); Eosinophils % (auto) 2.8 %; Hematocrit (blood only) 37.2 % (42-52); Hemoglobin 11.7 g/dL (14.0-18.0); Lymphocytes # (auto) 0.52 K/uL (1.2-3.4); Lymphocytes % (auto) 20.9 %; Mean Corpuscular Hgb Conc 31.5 g/dL (32-36); Mean Corpuscular Volume 85.9 fL (80-100); Mean Platelet Volume 10.3 fL (7.4-10.4); Monocytes # (auto) 0.36 K/uL (0.11-0.59); Monocytes % (auto) 14.5 %; Neutrophils # (auto) 1.49 K/uL (1.4-6.5); Neutrophils % (auto) 59.8 %; Platelet Count 133 K/uL (130-400); RDW Coefficient of Variation 17.9 % (11.5-14.5); RDW Standard Deviation 55.9 fL (36.4-46.3); Red Blood Count 4.33 M/uL (4.7-6.1); White Blood Count 2.49 K/uL (4.8-10.8)
[2019-05-15 08:09] LABS: BUN Creatinine Ratio 7.5 (10-20); Calcium 9.1 mg/dl (8.5-10.1); Creatinine Clr Calc Pharmacy 130.4 ml/min; Est GFR (African American) 120.2; Est GFR (Non-African American) 103.7; Potassium 3.7 mmol/L (3.5-5.1)
[2019-05-15 08:12] LABS: INR 2.2 (0.9-1.1); Prothrombin Time 21.1 Seconds (9.0-12.0)
[2019-05-15] MEDS: DOXYCYCLINE HYCLATE 100 MG in DEXTROSE 5% 100 ML IV SCH ×2 (08:22→22:02)
[2019-05-15] MEDS: FLUTICASONE/SALMETEROL (ADVAIR) 500/50 INH 14 PUFF INH SCH ×2 (08:22→22:01)
[2019-05-15] MEDS: SPIRONOLACTONE 100 MG TAB PO SCH (08:23)
[2019-05-15] MEDS: FOLIC ACID 1 MG TAB PO SCH (08:23)
[2019-05-15] MEDS: FUROSEMIDE 40 MG TAB PO SCH ×2 (08:23→15:50)
[2019-05-15] MEDS: FERROUS SULFATE 325 MG TAB PO SCH (08:23)
[2019-05-15] MEDS: PANTOprazole 40 MG TAB PO SCH ×2 (08:24→22:01)
[2019-05-15] MEDS: GABAPENTIN 300 MG CAP PO SCH ×3 (08:24→22:01)
[2019-05-15] MEDS: DOCUSATE SODIUM 100 MG CAP PO SCH ×2 (08:24→22:01)
[2019-05-15] MEDS: NICOTINE 14 MG/24 HR PATCH TD SCH (08:24)
[2019-05-15] MEDS: INSULIN GLARGINE SOLOSTAR 100 UNITS/ML 3 ML PEN SC SCH ×2 (08:29→21:59)
[2019-05-15] MEDS: INSULIN ASPART 100 UNITS/ML 3 ML PEN SC SCH ×4 (08:31→21:58)
--- NOTE | 2019-05-15 14:31 | Infectious Disease Progress Nt ---
Date of Service May 15, 2019 Assessment & Plan (1) Bilateral cellulitis of lower le-year-old male with recurrent lower extremity cellulitis, feel that compliance with dressing changes and follow-up a major problem, also concerned about possibility of developing pneumonitis. Patient to continue on ceftaroline and doxycycline pending further culture results. Will follow. (2) Pneumonitis: Subjective Patient seen in follow-up for recurrent lower extremity cellulitis. Slightly more comfortable today, remains afebrile. Blood cultures remain negative. Still with slight dry cough. Review of Systems Review of Systems: All systems reviewed & are unremarkable except as noted in HPI & below Physical Exam Constitutional: WD/WN, vitals as above comfortable; no acute distress Eyes: PERRL, conjunctivae normal, anicteric sclerae ENMT: external ear and nose normal, oropharynx normal Neck: trachea midline, no thyromegaly neck nontender Respiratory: normal respiratory effort, lungs clear to auscultation normal percussion; does not use accessory muscles Cardiovascular: Rate/Rhythm: regular rate and regular rhythm Heart Sounds: normal S1 and normal S2; no gallop, no murmur and no cardiac rub Vessels: normal peripheral pulses; no JVD Gastrointestinal (Abdomen): normal bowel sounds, soft, nontender, no hepatosplenomegaly Musculoskeletal: no cyanosis or clubbing, extremities motor strength 5/5 Spine: thoracic spine normal to inspection and lumbar spine normal to inspection; no cervical spinal tenderness Skin: normal turgor, + ulcer (Multiple superficial), + induration (Both lower extremities), + crusts and + erythema (Both lower extremities) Neurologic: patellar DTR's 2+ bilat, sensation intact no focal motor deficits Psychiatric: A+Ox3, euthymic affect Orientation: cooperative Lymphatic: no cervical or axillary lymphadenopathy no inguinal lymphadenopathy Results & Data Vital Signs (Past 12 Hours) Vital Signs Temp Pulse Pulse Resp BP Pulse Ox 05/15/19 11:23 84 18 96 05/15/19 07:22 67 16 98 05/15/19 07:02 36.6 C 66 20 116/71 96 Laboratory Results Short CBC 05/15/19 Range/Units 07:18 WBC 2.49 L (4.8-10.8) K/uL Hgb 11.7 L (14.0-18.0) g/dL Hct 37.2 L (42-52) % Plt Count 133 (130-400) K/uL BMP 05/15/19 07:18 Sodium 138 Potassium 3.7 Chloride 106 Carbon Dioxide 25 BUN 7 Creatinine 0.88 Glucose 137 H Calcium 9.1 Diagnostic Findings Microbiology 05/13/19 09:24 Blood Aerobic Blood Culture - Preliminary No growth in Aerobic bottle after 48 hours. 05/13/19 09:24 Blood Anaerobic Blood Culture - Preliminary No growth in Anaerobic bottle after 48 hours. 05/13/19 09:25 Blood Aerobic Blood Culture - Preliminary No growth in Aerobic bottle after 48 hours. 05/13/19 09:25 Blood Anaerobic Blood Culture - Preliminary No growth in Anaerobic bottle after 48 hours. PG Care Time/CCT Total # of Minutes Spent Total Time Spent with Patient: Total time spent is greater than 50% in coordination of care (as documented) at patient's floor/unit and/or counseling patient:
[2019-05-15] MEDS: WARFARIN SOD 10 MG TAB PO SCH (15:49)
--- NOTE | 2019-05-15 16:22 | Hospitalist Progress Note ---
Date of Service May 15, 2019 Assessment & Plan (1) Pneumonitis: Atypical Pneumonia presented with non productive cough no fever or chills normal white count --CT Chest:Interval development of extensive patchy peribronchovascular peripheral groundglass infiltrates consistent with an atypical pneumonia. Mosaic attenuation the lower lobes suggest small airways or reactive airways disease. Given the presence of the opacities, evaluation of pulmonary nodule is limited. pt is continued with Doxycycline ID following (2) Chronic venous stasis dermatitis of both lower extremities: has been a chronic issue Per Pt has been dealing with it for past 8 yrs follows with wound care clinic multiple admissions regarding lower ext wound infection lower ext arterial Doppler on 02/2019 : shows no evidence of increased velocity suggestive of arterial stenosis or vascular insufficiency possible secondary to lack of wound care at home pt was in Rehab few months back , reports of complete healing of leg wounds after returning home , he developed scabs on both legs, leading to open sores and infection wound care team consulted , appreciate input (3) Chronic ulcer of lower extremity: as above (4) Bilateral cellulitis of lower leg: B/L lower extremity cellulitis H/O recurrent Cellulitis Blood Cx: No growth to date Continue IV doxycycline and ceftaroline Day #3 Appreciate ID input recommends to continue current IV abx till all culture results are available no evidence of sepsis pt is afebrile , normal white count (5) Type 2 diabetes mellitus: Last A1C 8.1 03/25/2019 Hold metformin Continue lantus/novolog per protocol Monitor BGs (6) Cirrhosis: continue lasix, aldactone no signs of decompensation (7) Tobacco abuse: encourage smoking cessation (8) COPD (chronic obstructive pulmonary disease): continue Duoneb, home inhalers Pulmonary status stable has dry non productive cough /possible atypical pneumonia -no wheeze/hypoxia or respiratory distress (9) Chronic narcotic use: continue home pain meds (10) Anemia: Stable Monitor (11) Hypercoagulable state: Prothrombin Factor II Mutation, 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 INR:2.0 Continue warfarin presented with subtheraputic INR lower ext dopplar negative for DVT (12) Chronic deep vein thrombosis (DVT): (13) Subtherapeutic international normalized ratio (INR): (14) Abnormal CXR: (15) DVT prophylaxis: On coumadin Code Status Full Code Disposition: expected to be discharged home when medically stable Subjective pt seen and examined at bedside in room 382/2 says improvement of bilateral lower ext pain and swelling after dressing change today has minimum cough no fever or chills voiced concern regarding repeated infection/non healing wounds of lower legs also on admission his iNR was low 1.3 ( has been theraputic > 2 since admission ) -pt is worried about possible developing new DVT in legs , possible caused his leg swelling to be worse pt follows with coumadin clinic in [facility] mentions his INR has been below 2 last few weeks -as he is been of multiple antiibiotics Doppler of bilat lower ext ordered -negative for DVT pt will be continued with current dose of PO Coumadin Review of Systems Review of Systems: All systems reviewed & are unremarkable except as noted in HPI & below Physical Exam Constitutional: WD/WN, vitals as above no acute distress Eyes: PERRL, conjunctivae normal, anicteric sclerae ENMT: external ear and nose normal, oropharynx normal Neck: trachea midline, no thyromegaly Respiratory: normal respiratory effort and + cough; no respiratory distress Auscultation: no rales and no wheezes Cardiovascular: Rate/Rhythm: regular rate and regular rhythm Gastrointestinal (Abdomen): normal bowel sounds, soft, nontender, no hepatosplenomegaly Musculoskeletal: Extremities: + extremities abnormal to inspection (bilateral lower ext chronic venous statis changes with multiple wounds ) Skin: + ulcer (bilateral ankle area ) and + wound (bilateral lower ext non healing wounds ) Neurologic: PERRL, EOMI, accommodation nl, no face palsy, no dysarthria Psychiatric: A+Ox3, euthymic affect Results & Data Vital Signs (Past 12 Hours) Vital Signs Temp Pulse Pulse Resp BP Pulse Ox 05/15/19 16:18 78 16 97 05/15/19 15:45 36.7 C 91 H 18 137/78 94 05/15/19 11:23 84 18 96 05/15/19 07:22 67 16 98 05/15/19 07:02 36.6 C 66 20 116/71 96 (1) Chronic ulcer of lower extremity Laterality: unspecified laterality Non-pressure ulcer stage: unspecified non- pressure ulcer stage Qualified Code(s): L97.909 - Non-pressure chronic ulcer of unspecified part of unspecified lower leg with unspecified severity (2) Type 2 diabetes mellitus Diabetes mellitus nursing home insulin use: without nursing home 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
--- NOTE | 2019-05-15 21:53 | Ultrasound Report ---
BILATERAL LOWER EXTREMITY VENOUS DOPPLER CLINICAL HISTORY: chronic venous status /low INR /R/O DVT COMPARISON STUDY: Bilateral lower extremity venous Doppler March 10, 2019. TECHNIQUE: Sonography of the deep venous system of the bilateral lower extremities was performed. Co mpression and augmentation were evaluated. FINDINGS: Prominent bilateral inguinal lymph nodes appear unchanged from earlier exam. These have marley ign appearance. This exam is compromised by suboptimal penetration. The bilateral common femoral, sup erficial femoral and popliteal veins were compressible. Augmentation was normal. Flow was shown withi n the deep calf vessels. IMPRESSION: Technically difficult exam but no evidence of deep venous thrombus within the bilateral l ower extremities. Electronically signed by: Felix Mae M.D. 05/15/2019 9:51 PM
[2019-05-15] MEDS: MoRPHine SULFATE 2 MG/ML CARP IV PRN (21:57)
[2019-05-15] MEDS: AMMONIUM LACTATE 12% LOTION 225 GM BTL EXT SCH (22:02)
[2019-05-16] MEDS: CEFTAROLINE FOSAMIL ACETATE 600 MG in SODIUM CHLORIDE 0.9% 250 ML IV SCH ×2 (01:42→13:31)
[2019-05-16] MEDS: OXYCODONE HCL IR 5 MG TAB (IMMEDIATE RELEASE) PO PRN ×3 (01:43→21:29)
[2019-05-16] MEDS: ALBUT/IPRATROP 3MG/0.5MG NEB 3 ML VIAL NEB SCH (06:56)
[2019-05-16] MEDS: MoRPHine SULFATE 2 MG/ML CARP IV PRN ×3 (07:30→17:34)
--- NOTE | 2019-05-16 07:30 | XRay Report ---
XR chest 1V not portable CLINICAL HISTORY: pneumonia COMPARISON STUDY: 05/13/2019 FINDINGS: The cardiac and mediastinal contours remain stable. There is diffuse elevation of interstit ium. There is no lobar consolidation. There are no pleural effusions.[ IMPRESSION: Mild nonspecific interstitial thickening, similar to the preceding study. No evidence of lobar consolidation. Electronically signed by: Heriberto Tiwari M.D. 05/16/2019 7:29 AM
[2019-05-16 08:07] LABS: Basophils # (auto) 0.02 K/uL (0-0.2); Basophils % (auto) 0.8 %; Eosinophils # (auto) 0.08 K/uL (0-0.5); Eosinophils % (auto) 3.1 %; Hematocrit (blood only) 40.5 % (42-52); Hemoglobin 13.1 g/dL (14.0-18.0); Lymphocytes # (auto) 0.61 K/uL (1.2-3.4); Lymphocytes % (auto) 23.6 %; Mean Corpuscular Hemoglobin 28.1 pg (25-34); Mean Corpuscular Hgb Conc 32.3 g/dL (32-36); Mean Corpuscular Volume 86.9 fL (80-100); Mean Platelet Volume 10.4 fL (7.4-10.4); Monocytes # (auto) 0.25 K/uL (0.11-0.59); Monocytes % (auto) 9.7 %; Neutrophils # (auto) 1.62 K/uL (1.4-6.5); Neutrophils % (auto) 62.8 %; Platelet Count 143 K/uL (130-400); RDW Coefficient of Variation 17.8 % (11.5-14.5); RDW Standard Deviation 55.4 fL (36.4-46.3); Red Blood Count 4.66 M/uL (4.7-6.1); White Blood Count 2.58 K/uL (4.8-10.8)
[2019-05-16 08:14] LABS: INR 2.2 (0.9-1.1); Prothrombin Time 21.7 Seconds (9.0-12.0)
[2019-05-16 08:32] LABS: BUN Creatinine Ratio 9.6 (10-20); Calcium 9.5 mg/dl (8.5-10.1); Creatinine Clr Calc Pharmacy 131.9 ml/min; Est GFR (African American) 120.8; Est GFR (Non-African American) 104.2
[2019-05-16] MEDS ORDERED: ALBUT/IPRATROP 3MG/0.5MG NEB 3 ML VIAL NEB PRN (08:41)
[2019-05-16] MEDS: FLUTICASONE/SALMETEROL (ADVAIR) 500/50 INH 14 PUFF INH SCH ×2 (08:56→21:31)
[2019-05-16] MEDS: PANTOprazole 40 MG TAB PO SCH ×2 (08:56→21:30)
[2019-05-16] MEDS: GABAPENTIN 300 MG CAP PO SCH ×3 (08:56→21:31)
[2019-05-16] MEDS: FUROSEMIDE 40 MG TAB PO SCH ×2 (08:56→16:00)
[2019-05-16] MEDS: NICOTINE 14 MG/24 HR PATCH TD SCH (08:57)
[2019-05-16] MEDS: DOCUSATE SODIUM 100 MG CAP PO SCH ×2 (08:57→21:30)
[2019-05-16] MEDS: FOLIC ACID 1 MG TAB PO SCH (08:57)
[2019-05-16] MEDS: SPIRONOLACTONE 100 MG TAB PO SCH (08:57)
[2019-05-16] MEDS: FERROUS SULFATE 325 MG TAB PO SCH (08:57)
[2019-05-16] MEDS: DOXYCYCLINE HYCLATE 100 MG in DEXTROSE 5% 100 ML IV SCH (08:58)
[2019-05-16] MEDS: AMMONIUM LACTATE 12% LOTION 225 GM BTL EXT SCH ×2 (08:58→21:37)
[2019-05-16] MEDS: INSULIN ASPART 100 UNITS/ML 3 ML PEN SC SCH ×4 (08:59→21:34)
[2019-05-16] MEDS: INSULIN GLARGINE SOLOSTAR 100 UNITS/ML 3 ML PEN SC SCH ×2 (08:59→21:33)
[2019-05-16] MEDS: WARFARIN SOD 5 MG TAB PO SCH (16:00)
--- NOTE | 2019-05-16 18:12 | Hospitalist Progress Note ---
Date of Service May 16, 2019 Assessment & Plan (1) Pneumonitis: Atypical Pneumonia presented with non productive cough no fever or chills normal white count --CT Chest:Interval development of extensive patchy peribronchovascular peripheral groundglass infiltrates consistent with an atypical pneumonia. Mosaic attenuation the lower lobes suggest small airways or reactive airways disease. Given the presence of the opacities, evaluation of pulmonary nodule is limited. pt is continued with Doxycycline ID following (2) Chronic venous stasis dermatitis of both lower extremities: has been a chronic issue Per Pt has been dealing with it for past 8 yrs follows with wound care clinic multiple admissions regarding lower ext wound infection lower ext arterial Doppler on 02/2019 : shows no evidence of increased velocity suggestive of arterial stenosis or vascular insufficiency possible secondary to lack of wound care at home pt was in Rehab few months back , reports of complete healing of leg wounds after returning home , he developed scabs on both legs, leading to open sores and infection wound care team consulted , appreciate input At present patient is continued with ceftaroline 600 mg twice daily Wound discussed with ID: Dr. Perez for possible transition to oral antibiotic versus continue IV ceftaroline (3) Chronic ulcer of lower extremity: as above (4) Bilateral cellulitis of lower leg: B/L lower extremity cellulitis H/O recurrent Cellulitis Blood Cx: No growth to date Continue IV doxycycline and ceftaroline Day #4 Lower extremity wound cultures been negative: Discussed with Dr. Perez regarding appropriate transition of antibiotic IV versus oral for discharge no evidence of sepsis pt is afebrile , normal white count (5) Type 2 diabetes mellitus: Last A1C 8.1 03/25/2019 Hold metformin Continue lantus/novolog per protocol Monitor BGs (6) Cirrhosis: continue lasix, aldactone no signs of decompensation (7) Tobacco abuse: encourage smoking cessation (8) COPD (chronic obstructive pulmonary disease): continue Duoneb, home inhalers Pulmonary status stable has dry non productive cough /possible atypical pneumonia -no wheeze/hypoxia or respiratory distress (9) Chronic narcotic use: continue home pain meds (10) Anemia: Stable Monitor (11) Hypercoagulable state: Prothrombin Factor II Mutation, 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 INR:2.0 Continue warfarin presented with subtheraputic INR lower ext dopplar negative for DVT (12) Chronic deep vein thrombosis (DVT): (13) Subtherapeutic international normalized ratio (INR): (14) Abnormal CXR: Atypical Pneumonia --CT Chest:Interval development of extensive patchy peribronchovascular peripheral groundglass infiltrates consistent with an atypical pneumonia. Mosaic attenuation the lower lobes suggest small airways or reactive airways disease. Given the presence of the opacities, evaluation of pulmonary nodule is limited. Continue IV Abx Follow up Blood Cx (15) DVT prophylaxis: On coumadin Code Status Full Code Disposition: expected to be discharged home when medically stable Subjective Patient seen in follow-up for recurrent lower extremity cellulitis. Slightly more comfortable today, remains afebrile. Blood cultures remain negative. Still with slight dry cough. Physical Exam Constitutional: WD/WN, vitals as above no acute distress Eyes: PERRL, conjunctivae normal, anicteric sclerae ENMT: external ear and nose normal, oropharynx normal Neck: trachea midline, no thyromegaly Respiratory: normal respiratory effort and + cough; no respiratory distress Auscultation: no rales and no wheezes Cardiovascular: Rate/Rhythm: regular rate and regular rhythm Gastrointestinal (Abdomen): normal bowel sounds, soft, nontender, no hepatosplenomegaly Musculoskeletal: Extremities: + extremities abnormal to inspection (bilateral lower ext chronic venous statis changes with multiple wounds ) Skin: + ulcer (bilateral ankle area ) and + wound (bilateral lower ext non healing wounds ) Neurologic: PERRL, EOMI, accommodation nl, no face palsy, no dysarthria Psychiatric: A+Ox3, euthymic affect Results & Data Vital Signs (Past 12 Hours) Vital Signs Temp Pulse Resp BP Pulse Ox 05/16/19 15:16 36.7 C 88 22 120/77 95 05/16/19 12:02 80 16 98 05/16/19 08:10 36.7 C 76 16 114/73 94 05/16/19 06:56 78 16 98 (1) Chronic ulcer of lower extremity Laterality: unspecified laterality Non-pressure ulcer stage: unspecified non- pressure ulcer stage Qualified Code(s): L97.909 - Non-pressure chronic ulcer of unspecified part of unspecified lower leg with unspecified severity (2) Type 2 diabetes mellitus Diabetes mellitus assisted insulin use: without manager long term care use (3) Cirrhosis Ascites presence: unspecified Hepatic cirrhosis type: alcoholic cirrhosis Qualified Code(s): K70.30 - Alcoholic cirrhosis of liver without ascites (4) Chronic deep vein thrombosis (DVT) Affected thrombotic vein of extremity: unspecified vein of extremity DVT location: lower extremity Laterality: right Qualified Code(s): I82.501 - Chr onic embolism and thrombosis of unspecified deep veins of right lower extremity (5) COPD (chronic obstructive pulmonary disease) COPD type: unspecified COPD Qualified Code(s): J44.9 - Chronic obstructive pulmonary disease, unspecified
[2019-05-16] MEDS: DOXYCYCLINE HYCLATE 100 MG CAP PO SCH (21:30)
[2019-05-17] MEDS: MoRPHine SULFATE 2 MG/ML CARP IV PRN ×3 (02:35→17:52)
[2019-05-17] MEDS: CEFTAROLINE FOSAMIL ACETATE 600 MG in SODIUM CHLORIDE 0.9% 250 ML IV SCH ×2 (02:36→14:20)
[2019-05-17 07:34] LABS: INR 2.1 (0.9-1.1); Prothrombin Time 20.8 Seconds (9.0-12.0)
[2019-05-17] MEDS: OXYCODONE HCL IR 5 MG TAB (IMMEDIATE RELEASE) PO PRN ×3 (07:50→20:48)
[2019-05-17] MEDS: DOCUSATE SODIUM 100 MG CAP PO SCH ×2 (09:03→20:48)
[2019-05-17] MEDS: AMMONIUM LACTATE 12% LOTION 225 GM BTL EXT SCH ×2 (09:03→20:48)
[2019-05-17] MEDS: GABAPENTIN 300 MG CAP PO SCH ×3 (09:03→20:48)
[2019-05-17] MEDS: FOLIC ACID 1 MG TAB PO SCH (09:04)
[2019-05-17] MEDS: SPIRONOLACTONE 100 MG TAB PO SCH (09:04)
[2019-05-17] MEDS: DOXYCYCLINE HYCLATE 100 MG CAP PO SCH ×2 (09:04→20:53)
[2019-05-17] MEDS: FUROSEMIDE 40 MG TAB PO SCH ×2 (09:04→15:43)
[2019-05-17] MEDS: FERROUS SULFATE 325 MG TAB PO SCH (09:05)
[2019-05-17] MEDS: FLUTICASONE/SALMETEROL (ADVAIR) 500/50 INH 14 PUFF INH SCH ×2 (09:05→20:48)
[2019-05-17] MEDS: PANTOprazole 40 MG TAB PO SCH ×2 (09:05→20:48)
[2019-05-17] MEDS: NICOTINE 14 MG/24 HR PATCH TD SCH (09:05)
[2019-05-17] MEDS: INSULIN ASPART 100 UNITS/ML 3 ML PEN SC SCH ×4 (09:07→20:45)
[2019-05-17] MEDS: INSULIN GLARGINE SOLOSTAR 100 UNITS/ML 3 ML PEN SC SCH ×2 (09:08→20:45)
[2019-05-17] MEDS: WARFARIN SOD 10 MG TAB PO SCH (15:43)
--- NOTE | 2019-05-17 18:43 | Hospitalist Progress Note ---
Date of Service May 17, 2019 Assessment & Plan (1) Pneumonitis: Atypical Pneumonia presented with non productive cough no fever or chills normal white count --CT Chest:Interval development of extensive patchy peribronchovascular peripheral groundglass infiltrates consistent with an atypical pneumonia. Mosaic attenuation the lower lobes suggest small airways or reactive airways disease. Given the presence of the opacities, evaluation of pulmonary nodule is limited. pt is continued with Doxycycline ID following (2) Chronic venous stasis dermatitis of both lower extremities: has been a chronic issue Per Pt has been dealing with it for past 8 yrs follows with wound care clinic multiple admissions regarding lower ext wound infection lower ext arterial Doppler on 02/2019 : shows no evidence of increased velocity suggestive of arterial stenosis or vascular insufficiency possible secondary to lack of wound care at home pt was in Rehab few months back , reports of complete healing of leg wounds after returning home , he developed scabs on both legs, leading to open sores and infection wound care team consulted , appreciate input At present patient is continued with ceftaroline 600 mg twice daily discussed with ID: Dr. Perez recommends continue IV ceftaroline for another 1 week, Ultrasound-guided IV site placed Referral made to rehab for IV antibiotic therapy (3) Chronic ulcer of lower extremity: as above (4) Bilateral cellulitis of lower leg: B/L lower extremity cellulitis H/O recurrent Cellulitis Blood Cx: No growth to date Lower extremity wound cultures been negative: Discussed with Dr. Perez will need to be discharged on IV ceftaroline for 1 more week no evidence of sepsis pt is afebrile , normal white count (5) Type 2 diabetes mellitus: Last A1C 8.1 03/25/2019 Hold metformin Continue lantus/novolog per protocol Monitor BGs (6) Cirrhosis: continue lasix, aldactone no signs of decompensation (7) Tobacco abuse: encourage smoking cessation (8) COPD (chronic obstructive pulmonary disease): continue Duoneb, home inhalers Pulmonary status stable has dry non productive cough /possible atypical pneumonia -no wheeze/hypoxia or respiratory distress (9) Chronic narcotic use: continue home pain meds (10) Anemia: Stable Monitor (11) Hypercoagulable state: Prothrombin Factor II Mutation, 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 INR:2.0 Continue Coumadin (12) Chronic deep vein thrombosis (DVT): (13) Subtherapeutic international normalized ratio (INR): (14) Abnormal CXR: Atypical Pneumonia --CT Chest:Interval development of extensive patchy peribronchovascular peripheral groundglass infiltrates consistent with an atypical pneumonia. Mosaic attenuation the lower lobes suggest small airways or reactive airways disease. Given the presence of the opacities, evaluation of pulmonary nodule is limited. On doxycycline: (15) DVT prophylaxis: On coumadin Code Status Full Code Disposition: Patient will need rehab for ongoing IV antibiotic therapy, referral made Will need to continue inpatient stay until accepted at rehab Subjective Patient seen in follow-up for recurrent lower extremity cellulitis. Slightly more comfortable today, remains afebrile. Blood cultures remain negative. Still with slight dry cough. Physical Exam Constitutional: WD/WN, vitals as above no acute distress Eyes: PERRL, conjunctivae normal, anicteric sclerae ENMT: external ear and nose normal, oropharynx normal Neck: trachea midline, no thyromegaly Respiratory: normal respiratory effort and + cough; no respiratory distress Auscultation: no rales and no wheezes Cardiovascular: Rate/Rhythm: regular rate and regular rhythm Gastrointestinal (Abdomen): normal bowel sounds, soft, nontender, no hepatosplenomegaly Musculoskeletal: Extremities: + extremities abnormal to inspection (bilateral lower ext chronic venous statis changes with multiple wounds ) Skin: + ulcer (bilateral ankle area ) and + wound (bilateral lower ext non healing wounds ) Neurologic: PERRL, EOMI, accommodation nl, no face palsy, no dysarthria Psychiatric: A+Ox3, euthymic affect Results & Data Vital Signs (Past 12 Hours) Vital Signs Temp Pulse Resp BP BP Pulse Ox 05/17/19 15:33 36.8 C 83 16 136/83 93 05/17/19 07:42 36.4 C L 73 15 124/75 95 (1) Chronic ulcer of lower extremity Laterality: unspecified laterality Non-pressure ulcer stage: unspecified non- pressure ulcer stage Qualified Code(s): L97.909 - Non-pressure chronic ulcer of unspecified part of unspecified lower leg with unspecified severity (2) Type 2 diabetes mellitus Diabetes mellitus senior living insulin use: without senior living use (3) Cirrhosis Ascites presence: unspecified Hepatic cirrhosis type: alcoholic cirrhosis Qualified Code(s): K70.30 - Alcoholic cirrhosis of liver without ascites (4) Chronic deep vein thrombosis (DVT) Affected thrombotic vein of extremity: unspecified vein of extremity DVT location: lower extremity Laterality: right Qualified Code(s): I82.501 - Chronic embolism and thrombosis of unspecified deep veins of right lower ex tremity (5) COPD (chronic obstructive pulmonary disease) COPD type: unspecified COPD Qualified Code(s): J44.9 - Chronic obstructive pulmonary disease, unspecified
--- NOTE | 2019-05-17 20:46 | Infectious Disease Progress Nt ---
Date of Service May 17, 2019 Assessment & Plan (1) Bilateral cellulitis of lower le-year-old male with recurrent lower extremity cellulitis, feel that compliance with dressing changes and follow-up a major problem, also concerned about possibility of developing pneumonitis. Patient to continue on ceftaroline and doxycycline. Discussed with hospitalist service. Will follow. (2) Pneumonitis: Subjective Patient seen in follow-up for recurrent lower extremity cellulitis. Slightly more comfortable today, remains afebrile. Blood cultures remain negative. Still with slight dry cough. Physical Exam Constitutional: WD/WN, vitals as above comfortable; no acute distress Eyes: PERRL, conjunctivae normal, anicteric sclerae ENMT: external ear and nose normal, oropharynx normal Neck: trachea midline, no thyromegaly neck nontender Respiratory: normal respiratory effort, lungs clear to auscultation normal percussion; does not use accessory muscles Cardiovascular: Rate/Rhythm: regular rate and regular rhythm Heart Sounds: normal S1 and normal S2; no gallop, no murmur and no cardiac rub Vessels: normal peripheral pulses; no JVD Gastrointestinal (Abdomen): normal bowel sounds, soft, nontender, no hepatosplenomegaly Musculoskeletal: no cyanosis or clubbing, extremities motor strength 5/5 Spine: thoracic spine normal to inspection and lumbar spine normal to inspection; no cervical spinal tenderness Skin: normal turgor, + ulcer (Multiple superficial), + induration (Both lower extremities), + crusts and + erythema (Both lower extremities) Neurologic: patellar DTR's 2+ bilat, sensation intact no focal motor deficits Psychiatric: A+Ox3, euthymic affect Orientation: cooperative Lymphatic: no cervical or axillary lymphadenopathy no inguinal lymphadenopathy Results & Data Vital Signs (Past 12 Hours) Vital Signs Temp Pulse Resp BP Pulse Ox 05/17/19 15:33 36.8 C 83 16 136/83 93 Laboratory Results Laboratory Results - last 48 hr 05/15/19 05/16/19 05/16/19 21:47 07:30 07:30 WBC 2.58 L RBC 4.66 L Hgb 13.1 L Hct 40.5 L MCV 86.9 MCH 28.1 MCHC 32.3 RDW Std Deviation 55.4 H RDW Coeff of Kip 17.8 H Plt Count 143 MPV 10.4 Immature Gran % (Auto) 0.0 Neut % (Auto) 62.8 Lymph % (Auto) 23.6 Glenn % (Auto) 9.7 Eos % (Auto) 3.1 Baso % (Auto) 0.8 Immature Gran # (Auto) 0.00 Neut # (Auto) 1.62 Lymph # (Auto) 0.61 L Glenn # (Auto) 0.25 Eos # (Auto) 0.08 Baso # (Auto) 0.02 PT 21.7 H INR 2.2 H Sodium Potassium Chloride Carbon Dioxide Anion Gap BUN Creatinine Est Cr Clr Drug Dosing Est GFR ( Amer) Est GFR (Non-Af Amer) BUN/Creatinine Ratio Glucose POC Glucose 177 H Calcium 05/16/19 05/16/19 05/16/19 07:30 08:00 11:44 WBC RBC Hgb Hct MCV MCH MCHC RDW Std Deviation RDW Coeff of Kip Plt Count MPV Immature Gran % (Auto) Neut % (Auto) Lymph % (Auto) Glenn % (Auto) Eos % (Auto) Baso % (Auto) Immature Gran # (Auto) Neut # (Auto) Lymph # (Auto) Glenn # (Auto) Eos # (Auto) Baso # (Auto) PT INR Sodium 138 Potassium 4.0 Chloride 104 Carbon Dioxide 26 Anion Gap 7.0 BUN 8 Creatinine 0.87 Est Cr Clr Drug Dosing 131.9 Est GFR ( Amer) 120.8 Est GFR (Non-Af Amer) 104.2 BUN/Creatinine Ratio 9.6 L Glucose 136 H POC Glucose 140 H 144 H Calcium 9.5 05/16/19 05/16/19 05/17/19 17:20 20:47 06:23 WBC RBC Hgb Hct MCV MCH MCHC RDW Std Deviation RDW Coeff of Kip Plt Count MPV Immature Gran % (Auto) Neut % (Auto) Lymph % (Auto) Glenn % (Auto) Eos % (Auto) Baso % (Auto) Immature Gran # (Auto) Neut # (Auto) Lymph # (Auto) Glenn # (Auto) Eos # (Auto) Baso # (Auto) PT 20.8 H INR 2.1 H Sodium Potassium Chloride Carbon Dioxide Anion Gap BUN Creatinine Est Cr Clr Drug Dosing Est GFR ( Amer) Est GFR (Non-Af Amer) BUN/Creatinine Ratio Glucose POC Glucose 183 H 144 H Calcium 05/17/19 05/17/19 05/17/19 08:19 12:11 17:22 WBC RBC Hgb Hct MCV MCH MCHC RDW Std Deviation RDW Coeff of Kip Plt Count MPV Immature Gran % (Auto) Neut % (Auto) Lymph % (Auto) Glenn % (Auto) Eos % (Auto) Baso % (Auto) Immature Gran # (Auto) Neut # (Auto) Lymph # (Auto) Glenn # (Auto) Eos # (Auto) Baso # (Auto) PT INR Sodium Potassium Chloride Carbon Dioxide Anion Gap BUN Creatinine Est Cr Clr Drug Dosing Est GFR ( Amer) Est GFR (Non-Af Amer) BUN/Creatinine Ratio Glucose POC Glucose 136 H 127 H 133 H Calcium 05/17/19 20:06 WBC RBC Hgb Hct MCV MCH MCHC RDW Std Deviation RDW Coeff of Kip Plt Count MPV Immature Gran % (Auto) Neut % (Auto) Lymph % (Auto) Glenn % (Auto) Eos % (Auto) Baso % (Auto) Immature Gran # (Auto) Neut # (Auto) Lymph # (Auto) Glenn # (Auto) Eos # (Auto) Baso # (Auto) PT INR Sodium Potassium Chloride Carbon Dioxide Anion Gap BUN Creatinine Est Cr Clr Drug Dosing Est GFR ( Amer) Est GFR (Non-Af Amer) BUN/Creatinine Ratio Glucose POC Glucose 136 H Calcium Diagnostic Findings Microbiology 05/13/19 09:24 Blood Aerobic Blood Culture - Preliminary No growth in Aerobic bottle after 48 hours. 05/13/19 09:24 Blood Anaerobic Blood Culture - Preliminary No growth in Anaerobic bottle after 48 hours. 05/13/19 09:25 Blood Aerobic Blood Culture - Preliminary No growth in Aerobic bottle after 48 hours. 05/13/19 09:25 Blood Anaerobic Blood Culture - Preliminary No growth in Anaerobic bottle after 48 hours. PG Care Time/CCT Total # of Minutes Spent Total Time Spent with Patient: Total time spent is greater than 50% in coordination of care (as documented) at patient's floor/unit and/or counseling patient:
[2019-05-18] MEDS: MoRPHine SULFATE 2 MG/ML CARP IV PRN ×4 (00:14→21:38)
[2019-05-18] MEDS: CEFTAROLINE FOSAMIL ACETATE 600 MG in SODIUM CHLORIDE 0.9% 250 ML IV SCH ×2 (02:44→13:37)
[2019-05-18 07:25] LABS: INR 2.3 (0.9-1.1); Prothrombin Time 22.4 Seconds (9.0-12.0)
[2019-05-18] MEDS: OXYCODONE HCL IR 5 MG TAB (IMMEDIATE RELEASE) PO PRN ×2 (07:41→18:23)
[2019-05-18] MEDS: FUROSEMIDE 40 MG TAB PO SCH ×2 (09:46→16:38)
[2019-05-18] MEDS: FLUTICASONE/SALMETEROL (ADVAIR) 500/50 INH 14 PUFF INH SCH ×2 (09:46→21:21)
[2019-05-18] MEDS: DOCUSATE SODIUM 100 MG CAP PO SCH ×2 (09:46→21:22)
[2019-05-18] MEDS: NICOTINE 14 MG/24 HR PATCH TD SCH (09:47)
[2019-05-18] MEDS: FOLIC ACID 1 MG TAB PO SCH (09:47)
[2019-05-18] MEDS: FERROUS SULFATE 325 MG TAB PO SCH (09:47)
[2019-05-18] MEDS: SPIRONOLACTONE 100 MG TAB PO SCH (09:47)
[2019-05-18] MEDS: GABAPENTIN 300 MG CAP PO SCH ×3 (09:47→21:22)
[2019-05-18] MEDS: DOXYCYCLINE HYCLATE 100 MG CAP PO SCH ×2 (09:47→21:22)
[2019-05-18] MEDS: PANTOprazole 40 MG TAB PO SCH ×2 (09:48→21:21)
[2019-05-18] MEDS: AMMONIUM LACTATE 12% LOTION 225 GM BTL EXT SCH ×2 (09:48→21:22)
[2019-05-18] MEDS: INSULIN GLARGINE SOLOSTAR 100 UNITS/ML 3 ML PEN SC SCH ×2 (09:49→21:28)
[2019-05-18] MEDS: INSULIN ASPART 100 UNITS/ML 3 ML PEN SC SCH ×4 (09:50→21:26)
--- NOTE | 2019-05-18 15:56 | Hospitalist Progress Note ---
Date of Service May 18, 2019 Assessment & Plan (1) Pneumonitis: Atypical Pneumonia presented with non productive cough no fever or chills normal white count --CT Chest:Interval development of extensive patchy peribronchovascular peripheral groundglass infiltrates consistent with an atypical pneumonia. Mosaic attenuation the lower lobes suggest small airways or reactive airways disease. Given the presence of the opacities, evaluation of pulmonary nodule is limited. pt is continued with Doxycycline Cough has completely resolved, no hypoxia, no fever or chills (2) Chronic venous stasis dermatitis of both lower extremities: has been a chronic issue Per Pt has been dealing with it for past 8 yrs follows with wound care clinic multiple admissions regarding lower ext wound infection lower ext arterial Doppler on 02/2019 : shows no evidence of increased velocity suggestive of arterial stenosis or vascular insufficiency possible secondary to lack of wound care at home pt was in Rehab few months back , reports of complete healing of leg wounds after returning home , he developed scabs on both legs, leading to open sores and infection wound care team consulted , appreciate input At present patient is continued with ceftaroline IV 600 mg twice daily discussed with ID: Dr. Perez recommends continue IV ceftaroline for another 1 week, Ultrasound-guided IV site placed Referral made to rehab for IV antibiotic therapy -Patient voices concerned that if bed is not available in rehab early next week- does not want to stay in the hospital for IV antibiotic therapy only Wants to return home with oral antibiotic We will discuss with Dr. Perez (3) Chronic ulcer of lower extremity: as above (4) Bilateral cellulitis of lower leg: B/L lower extremity cellulitis H/O recurrent Cellulitis Blood Cx: No growth to date Lower extremity wound cultures been negative: Discussed with Dr. Perez will need to be discharged on IV ceftaroline for 1 more week no evidence of sepsis pt is afebrile , normal white count (5) Type 2 diabetes mellitus: Last A1C 8.1 03/25/2019 Hold metformin Continue lantus/novolog per protocol Monitor BGs (6) Cirrhosis: continue lasix, aldactone no signs of decompensation (7) Tobacco abuse: encourage smoking cessation (8) COPD (chronic obstructive pulmonary disease): continue Duoneb, home inhalers Pulmonary status stable has dry non productive cough /possible atypical pneumonia -no wheeze/hypoxia or respiratory distress (9) Chronic narcotic use: continue home pain meds (10) Anemia: Stable Monitor (11) Hypercoagulable state: Prothrombin Factor II Mutation, 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 INR:2.0 Continue Coumadin (12) Chronic deep vein thrombosis (DVT): On Coumadin, INR therapeutic (13) Subtherapeutic international normalized ratio (INR): (14) Abnormal CXR: Atypical Pneumonia --CT Chest:Interval development of extensive patchy peribronchovascular peripheral groundglass infiltrates consistent with an atypical pneumonia. Mosaic attenuation the lower lobes suggest small airways or reactive airways disease. Given the presence of the opacities, evaluation of pulmonary nodule is limited. On doxycycline: At present asymptomatic no cough no fever or chills (15) DVT prophylaxis: On coumadin Code Status Full Code Disposition: To be determined, Referral made to [facility] for IV antibiotic treatment Awaiting bed available Patient reports if there is no bed available on Monday at the half-way Patient wants to return home with oral antibiotics Subjective Offers no new complaint, patient says he feels the same lower extremity pain and discomfort has continues to improve, no fever or chills Does not have any cough Patient reports he wants to be discharged from hospital at least by Monday, He is concerned that [facility] skilled rehab may not have a bed available for him next week Review of Systems Review of Systems: All systems reviewed & are unremarkable except as noted in HPI & below Physical Exam Constitutional: WD/WN, vitals as above no acute distress Eyes: PERRL, conjunctivae normal, anicteric sclerae ENMT: external ear and nose normal, oropharynx normal Neck: trachea midline, no thyromegaly Respiratory: normal respiratory effort and + cough; no respiratory distress Auscultation: no rales and no wheezes Cardiovascular: Rate/Rhythm: regular rate and regular rhythm Gastrointestinal (Abdomen): normal bowel sounds, soft, nontender, no hepatosplenomegaly Musculoskeletal: Extremities: + extremities abnormal to inspection (bilateral lower ext chronic venous statis changes with multiple wounds ) Skin: + ulcer (bilateral ankle area ) and + wound (bilateral lower ext non healing wounds ) Neurologic: PERRL, EOMI, accommodation nl, no face palsy, no dysarthria Psychiatric: A+Ox3, euthymic affect Results & Data Vital Signs (Past 12 Hours) Vital Signs Temp Pulse Resp BP Pulse Ox 05/18/19 15:05 36.8 C 87 16 128/86 94 05/18/19 07:27 36.9 C 79 115/75 95 (1) Chronic ulcer of lower extremity Laterality: unspecified laterality Non-pressure ulcer stage: unspecified non- pressure ulcer stage Qualified Code(s): L97.909 - Non-pressure chronic ulcer of unspecified part of unspecified lower leg with unspecified severity (2) Type 2 diabetes mellitus 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: without nursing home 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
[2019-05-18] MEDS: WARFARIN SOD 5 MG TAB PO SCH (16:38)
[2019-05-19] MEDS: CEFTAROLINE FOSAMIL ACETATE 600 MG in SODIUM CHLORIDE 0.9% 250 ML IV SCH ×2 (02:05→13:44)
[2019-05-19] MEDS: OXYCODONE HCL IR 5 MG TAB (IMMEDIATE RELEASE) PO PRN ×3 (05:20→21:44)
[2019-05-19 06:13] LABS: Creatinine Clr Calc Pharmacy 112.5 ml/min; Est GFR (African American) 102.4; Est GFR (Non-African American) 88.4
[2019-05-19] MEDS: MoRPHine SULFATE 2 MG/ML CARP IV PRN ×2 (07:43→15:23)
[2019-05-19] MEDS: DOCUSATE SODIUM 100 MG CAP PO SCH ×2 (09:03→21:26)
[2019-05-19] MEDS: FUROSEMIDE 40 MG TAB PO SCH ×2 (09:04→15:22)
[2019-05-19] MEDS: DOXYCYCLINE HYCLATE 100 MG CAP PO SCH ×2 (09:04→21:26)
[2019-05-19] MEDS: SPIRONOLACTONE 100 MG TAB PO SCH (09:04)
[2019-05-19] MEDS: GABAPENTIN 300 MG CAP PO SCH ×3 (09:04→21:26)
[2019-05-19] MEDS: NICOTINE 14 MG/24 HR PATCH TD SCH (09:04)
[2019-05-19] MEDS: PANTOprazole 40 MG TAB PO SCH ×2 (09:04→21:26)
[2019-05-19] MEDS: FERROUS SULFATE 325 MG TAB PO SCH (09:04)
[2019-05-19] MEDS: FOLIC ACID 1 MG TAB PO SCH (09:04)
[2019-05-19] MEDS: AMMONIUM LACTATE 12% LOTION 225 GM BTL EXT SCH ×2 (09:04→21:26)
[2019-05-19] MEDS: FLUTICASONE/SALMETEROL (ADVAIR) 500/50 INH 14 PUFF INH SCH ×2 (09:05→21:26)
[2019-05-19] MEDS: INSULIN GLARGINE SOLOSTAR 100 UNITS/ML 3 ML PEN SC SCH ×2 (09:06→21:30)
[2019-05-19] MEDS: INSULIN ASPART 100 UNITS/ML 3 ML PEN SC SCH ×4 (09:07→21:28)
--- NOTE | 2019-05-19 14:24 | Hospitalist Progress Note ---
Date of Service May 19, 2019 Assessment & Plan (1) Pneumonitis: Atypical Pneumonia presented with non productive cough symptom has completely resolved no fever or chills normal white count --CT Chest:Interval development of extensive patchy peribronchovascular peripher al groundglass infiltrates consistent with an atypical pneumonia. Mosaic attenuation the lower lobes suggest small airways or reactive airways disease. Given the presence of the opacities, evaluation of pulmonary nodule is limited. pt is continued with Doxycycline will need total 7 -10 days treatment Cough has completely resolved, no hypoxia, no fever or chills (2) Chronic venous stasis dermatitis of both lower extremities: has been a chronic issue Per Pt has been dealing with it for past 8 yrs follows with wound care clinic multiple admissions regarding lower ext wound infection lower ext arterial Doppler on 02/2019 : shows no evidence of increased velocity suggestive of arterial stenosis or vascular insufficiency possible secondary to lack of wound care at home pt was in Rehab few months back , reports of complete healing of leg wounds after returning home , he developed scabs on both legs, leading to open sores and infection wound care team consulted , appreciate input At present patient is on ceftaroline IV 600 mg twice daily discussed with ID: Dr. Perez recommends continue IV ceftaroline for another 1 week, Ultrasound-guided IV site placed Referral made to rehab for IV antibiotic therapy -Patient voices concerned that if bed is not available in rehab early next week- does not want to stay in the hospital for IV antibiotic therapy only Wants to return home with oral antibiotic Plan of care discussed with Dr. Perez Is to continue IV antibiotic for another 24 hours Possible transition to oral antibiotic tomorrow (3) Chronic ulcer of lower extremity: as above (4) Bilateral cellulitis of lower leg: B/L lower extremity cellulitis H/O recurrent Cellulitis Blood Cx: No growth to date Lower extremity wound cultures been negative: no evidence of sepsis pt is afebrile , normal white count (5) Type 2 diabetes mellitus: Last A1C 8.1 03/25/2019 Hold metformin Continue lantus/novolog per protocol Monitor BGs (6) Cirrhosis: continue lasix, aldactone no signs of cardiac decompensation /volume status stable (7) Tobacco abuse: encourage smoking cessation (8) COPD (chronic obstructive pulmonary disease): continue Duoneb, home inhalers Pulmonary status stable (9) Chronic narcotic use: continue home pain meds (10) Anemia: Stable Monitor (11) Hypercoagulable state: Prothrombin Factor II Mutation, 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 INR: Therapeutic Continue Coumadin (12) Chronic deep vein thrombosis (DVT): On Coumadin, INR therapeutic (13) Subtherapeutic international normalized ratio (INR): (14) Abnormal CXR: Atypical Pneumonia --CT Chest:Interval development of extensive patchy peribronchovascular peripheral groundglass infiltrates consistent with an atypical pneumonia. Mosaic attenuation the lower lobes suggest small airways or reactive airways disease. Given the presence of the opacities, evaluation of pulmonary nodule is limited. On doxycycline: At present asymptomatic no cough no fever or chills (15) DVT prophylaxis: On coumadin Code Status Full Code Disposition: Possible transition to oral antibiotic tomorrow, Will be discharged home after antibiotic adjustment Subjective reports of feeling fine No fevers chills, patient reports of improved healing of bilateral lower extremity wounds, no swelling, no pain or discomfort Eager to be discharged home Physical Exam Constitutional: WD/WN, vitals as above no acute distress Eyes: PERRL, conjunctivae normal, anicteric sclerae ENMT: external ear and nose normal, oropharynx normal Neck: trachea midline, no thyromegaly Respiratory: normal respiratory effort and + cough; no respiratory distress Auscultation: no rales and no wheezes Cardiovascular: Rate/Rhythm: regular rate and regular rhythm Gastrointestinal (Abdomen): normal bowel sounds, soft, nontender, no hepatosplenomegaly Musculoskeletal: Extremities: + extremities abnormal to inspection (bilateral lower ext chronic venous statis changes with multiple wounds ) Skin: + ulcer (bilateral ankle area ) and + wound (bilateral lower ext non healing wounds ) Neurologic: PERRL, EOMI, accommodation nl, no face palsy, no dysarthria Psychiatric: A+Ox3, euthymic affect Results & Data Vital Signs (Past 12 Hours) Vital Signs Temp Pulse Resp BP Pulse Ox 05/19/19 07:16 36.7 C 68 16 119/78 94 (1) Chronic ulcer of lower extremity Laterality: unspecified laterality Non-pressure ulcer stage: unspecified non- pressure ulcer stage Qualified Code(s): L97.909 - Non-pressure chronic ulcer of unspecified part of unspecified lower leg with unspecified severity (2) Type 2 diabetes mellitus 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
[2019-05-19] MEDS: WARFARIN SOD 10 MG TAB PO SCH (15:22)
--- NOTE | 2019-05-19 19:50 | Infectious Disease Progress Nt ---
Date of Service May 19, 2019 Assessment & Plan (1) Bilateral cellulitis of lower le-year-old male with recurrent lower extremity cellulitis, feel that compliance with dressing changes and follow-up a major problem, also concerned about possibility of developing pneumonitis. Patient has improved significantly with treatment with antibiotics, and to consider discharge on oral antibiotics tomorrow if remains stable. Discussed with hospitalist service. (2) Pneumonitis: Subjective reports of feeling fine No fevers chills, patient reports of improved healing of bilateral lower extremity wounds, no swelling, no pain or discomfort Eager to be discharged home Review of Systems Review of Systems: All systems reviewed & are unremarkable except as noted in HPI & below Physical Exam Constitutional: WD/WN, vitals as above comfortable; no acute distress Eyes: PERRL, conjunctivae normal, anicteric sclerae ENMT: external ear and nose normal, oropharynx normal Neck: trachea midline, no thyromegaly neck nontender Respiratory: normal respiratory effort, lungs clear to auscultation normal percussion; does not use accessory muscles Cardiovascular: Rate/Rhythm: regular rate and regular rhythm Heart Sounds: normal S1 and normal S2; no gallop, no murmur and no cardiac rub Vessels: normal peripheral pulses; no JVD Gastrointestinal (Abdomen): normal bowel sounds, soft, nontender, no hepatosplenomegaly Musculoskeletal: no cyanosis or clubbing, extremities motor strength 5/5 Spine: thoracic spine normal to inspection and lumbar spine normal to inspection; no cervical spinal tenderness Skin: normal turgor, + ulcer (Multiple superficial), + induration (Both lower extremities), + crusts and + erythema (Both lower extremities) Neurologic: patellar DTR's 2+ bilat, sensation intact no focal motor deficits Psychiatric: A+Ox3, euthymic affect Orientation: cooperative Lymphatic: no cervical or axillary lymphadenopathy no inguinal lymphadenopathy Results & Data Vital Signs (Past 12 Hours) Vital Signs Temp Pulse Resp BP Pulse Ox 05/19/19 15:51 37.0 C 82 17 121/79 94 Laboratory Results Laboratory Results - last 48 hr 05/17/19 05/18/19 05/18/19 20:06 06:32 08:17 PT 22.4 H INR 2.3 H Creatinine Est Cr Clr Drug Dosing Est GFR ( Amer) Est GFR (Non-Af Amer) POC Glucose 136 H 138 H 05/18/19 05/18/19 05/18/19 12:00 16:59 20:20 PT INR Creatinine Est Cr Clr Drug Dosing Est GFR ( Amer) Est GFR (Non-Af Amer) POC Glucose 127 H 148 H 133 H 05/19/19 05/19/19 05/19/19 05:32 08:13 12:08 PT INR Creatinine 1.02 Est Cr Clr Drug Dosing 112.5 Est GFR ( Amer) 102.4 Est GFR (Non-Af Amer) 88.4 POC Glucose 132 H 128 H 05/19/19 17:17 PT INR Creatinine Est Cr Clr Drug Dosing Est GFR ( Amer) Est GFR (Non-Af Amer) POC Glucose 137 H Diagnostic Findings Microbiology 05/13/19 09:24 Blood Aerobic Blood Culture - Final No growth in Aerobic bottle after 5 days. 05/13/19 09:24 Blood Anaerobic Blood Culture - Final No growth in Anaerobic bottle after 5 days. 05/13/19 09:25 Blood Aerobic Blood Culture - Final No growth in Aerobic bottle after 5 days. 05/13/19 09:25 Blood Anaerobic Blood Culture - Final No growth in Anaerobic bottle after 5 days. PG Care Time/CCT Total # of Minutes Spent Total Time Spent with Patient: Total time spent is greater than 50% in coordination of care (as documented) at patient's floor/unit and/or counseling patient:
[2019-05-20] MEDS: MoRPHine SULFATE 2 MG/ML CARP IV PRN (01:00)
[2019-05-20] MEDS: CEFTAROLINE FOSAMIL ACETATE 600 MG in SODIUM CHLORIDE 0.9% 250 ML IV SCH (01:03)
[2019-05-20] MEDS: GABAPENTIN 300 MG CAP PO SCH (09:20)
[2019-05-20] MEDS: DOCUSATE SODIUM 100 MG CAP PO SCH (09:20)
[2019-05-20] MEDS: PANTOprazole 40 MG TAB PO SCH (09:20)
[2019-05-20] MEDS: DOXYCYCLINE HYCLATE 100 MG CAP PO SCH (09:21)
[2019-05-20] MEDS: FUROSEMIDE 40 MG TAB PO SCH (09:21)
[2019-05-20] MEDS: FERROUS SULFATE 325 MG TAB PO SCH (09:21)
[2019-05-20] MEDS: SPIRONOLACTONE 100 MG TAB PO SCH (09:21)
[2019-05-20] MEDS: FOLIC ACID 1 MG TAB PO SCH (09:21)
[2019-05-20] MEDS: FLUTICASONE/SALMETEROL (ADVAIR) 500/50 INH 14 PUFF INH SCH (09:22)
[2019-05-20] MEDS: AMMONIUM LACTATE 12% LOTION 225 GM BTL EXT SCH (09:22)
[2019-05-20] MEDS: NICOTINE 14 MG/24 HR PATCH TD SCH (09:23)
[2019-05-20] MEDS: INSULIN GLARGINE SOLOSTAR 100 UNITS/ML 3 ML PEN SC SCH (09:24)
[2019-05-20] MEDS: INSULIN ASPART 100 UNITS/ML 3 ML PEN SC SCH (09:26)
[2019-05-20] MEDS: OXYCODONE HCL IR 5 MG TAB (IMMEDIATE RELEASE) PO PRN (09:43)
--- NOTE | 2019-05-20 10:44 | Discharge Summary ---
Date of Service May 20, 2019 Admission HPI Per Admitting Provider This is a 44 year old M PMH recurrent B/L lower extremity cellulitis and wounds, venous insufficiency, DM II, COPD, hypercoagulable state - prothrombin factor II mutation, chronic nonocclusive BLE DVT, GERD, tobacco use, chronic narcotic use, depression, h/o MRSA presented to [facility] ED with bilateral lower extremity open wounds and increasing LLE pain. Pt was recently hospitalized 04/09-04/22 09/29 to lower extremity cellulitis treated with IV antibiotic ceftraoline and cipro and discharged to rehab. He was discharged from rehab on 04/30 in which she states his wounds were completely healed. Approximately 1 week ago patient noticed opening of recurrent wounds to bilateral lower extremity. Over the past week he has noticed increased pain and swelling to left leg and purulent drainage. He also complains of chills, sweats, nausea and intermittent emesis. He states "this is how I feel when I get infected." He has had URI sx for past 3 days including sinus congestion, clear rhinorrhea and dry cough. He was seen in our ED on 05/08 in which he received a dose of IV Dalvance. He was encouraged to follow-up as outpatient, but states he did not have a ride. Overall he now feels his legs are worse. He lives alone at home. He was using xeroform, but has run out of this. Denies any documented fever, dizziness, lightheaded, chest pain, palpitations, VARMA, SOB, hemoptysis, abdominal pain, change in bowel or urinary habits. Has had poor appetite for past 24 hours. Principal Diagnosis BILATERAL LOWER EXTREMITY CHRONIC VENOUS STASIS NONHEALING WOUND, AND ATYPICAL PNEUMONIA Discharge Exam Constitutional WD/WN, vitals as above no acute distress Eyes PERRL, conjunctivae normal, anicteric sclerae ENMT external ear and nose normal, oropharynx normal Neck trachea midline, no thyromegaly Respiratory normal respiratory effort and + cough; no respiratory distress Auscultation: no rales and no wheezes Cardiovascular Rate/Rhythm: regular rate and regular rhythm Gastrointestinal (Abdomen) normal bowel sounds, soft, nontender, no hepatosplenomegaly Musculoskeletal Extremities: + extremities abnormal to inspection (bilateral lower ext chronic venous statis changes with multiple wounds ) Skin + ulcer (bilateral ankle area ) and + wound (bilateral lower ext non healing wounds ) Neurologic PERRL, EOMI, accommodation nl, no face palsy, no dysarthria Psychiatric A+Ox3, euthymic affect Discharge Data Allergies Allergy/AdvReac Type Severity Reaction Status Date / Time peas Allergy Severe Swelling Verified 05/13/19 08:39 of Lip/Tongue/Throat Bactrim Allergy Intermediate hives Verified 04/12/18 15:58 sulfamethoxazole Allergy Intermediate hives Verified 05/13/19 08:39 trimethoprim Allergy Intermediate hives Verified 05/13/19 08:39 tuna oil Allergy Unknown . Verified 05/13/19 08:39 Consultations 05/13/19 09:49 ED Decision to Admit Stat 05/13/19 11:19 Consult Infectious Diseases Routine 05/13/19 12:57 Consult Case Management - Discharge Planning Routine Ordered Studies 05/13/19 11:40 CT chest wo con Urgent 05/15/19 18:12 US venous doppler LE Routine Hospital Course (1) Pneumonitis: Atypical Pneumonia presented with non productive cough symptom has completely resolved no fever or chills normal white count --CT Chest:Interval development of extensive patchy peribronchovascular peripheral groundglass infiltrates consistent with an atypical pneumonia. Mosaic attenuation the lower lobes suggest small airways or reactive airways disease. Given the presence of the opacities, evaluation of pulmonary nodule is limited. pt is continued with Doxycycline Cough has completely resolved, no hypoxia, no fever or chills (2) Chronic venous stasis dermatitis of both lower extremities: has been a chronic issue Per Pt has been dealing with it for past 8 yrs follows with wound care clinic multiple admissions regarding lower ext wound infection lower ext arterial Doppler on 02/2019 : shows no evidence of increased velocity suggestive of arterial stenosis or vascular insufficiency possible secondary to lack of wound care at home pt was in Rehab few months back , reports of complete healing of leg wounds after returning home , he developed scabs on both legs, leading to open sores and infection wound care team consulted , appreciate input Patient was treated with ceftaroline IV 600 mg twice daily Discussed with Dr. Perez, Antibiotic is changed to oral today: Patient will be discharged on p.o. ciprofloxacin 500 mg twice daily for 4 weeks/doxycycline 100 mg twice daily for 4 weeks (3) Chronic ulcer of lower extremity: Treatment as outlined above Continue to follow-up with wound clinic at [place] (4) Bilateral cellulitis of lower leg: B/L lower extremity cellulitis H/O recurrent Cellulitis Blood Cx: No growth to date Lower extremity wound cultures been negative: no evidence of sepsis pt is afebrile , normal white count Being discharged with oral ciprofloxacin and doxycycline for 4 weeks (5) Type 2 diabetes mellitus: Last A1C 8.1 03/25/2019 Metformin was kept on hold during hospital stay Treated with Lantus/novolog per protocol Outpatient diabetic medications resumed on discharge (6) Cirrhosis: continue lasix, aldactone no signs of cardiac decompensation /volume status stable (7) Tobacco abuse: encourage smoking cessation (8) COPD (chronic obstructive pulmonary disease): continue Duoneb, home inhalers Pulmonary status stable (9) Chronic narcotic use: continue home pain meds (10) Anemia: Stable Monitor (11) Hypercoagulable state: Prothrombin Factor II Mutation, 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 INR: Therapeutic Continue Coumadin (12) Chronic deep vein thrombosis (DVT): On Coumadin, INR therapeutic (13) Subtherapeutic international normalized ratio (INR): (14) Abnormal CXR: Atypical Pneumonia --CT Chest:Interval development of extensive patchy peribronchovascular periphe ral groundglass infiltrates consistent with an atypical pneumonia. Mosaic attenuation the lower lobes suggest small airways or reactive airways disease. Given the presence of the opacities, evaluation of pulmonary nodule is limited. Continue on on doxycycline: At present asymptomatic no cough no fever or chills (15) DVT prophylaxis: On coumadin Code Status Full Code Disposition: Patient is discharged home today with p.o. antibiotics Total Time Total Time Spent Total Time Spent (In Minutes): Approximately 40 minutes Total Time Includes: Examination of the Patient, Discharge Planning, Medication Reconciliation and Communication With Other Providers Discharge Plan Discharge Items Patient Disposition: Home - Self-Care Reason For Visit: B/L LOWER EXT CELLULITIS Discharge Diagnosis: BILATERAL LOWER EXTREMITY CHRONIC VENOUS STASIS NONHEALING WOUND, AND ATYPICAL PNEUMONIA Condition on Discharge: Good Activity: Resume your previous activity Non-emergency contact: Primary Care Provider Call non-emergency contact if: you have any medication questions Follow-up/Referrals: Gareth Lin MD [Primary Care Provider] - Diet: Carb Consistent or DM2 and Heart Healthy Addtl Attending Provider Instructions: Continue follow-up with wound clinic Hospital follow-up: ANTIBIOTICS: Doxycycline: 100 mg 1 tablet twice daily for 4 weeks Ciprofloxacin: 500 mg 1 tablet twice daily for 4 weeks Please take [id number] probiotics for 4 weeks when taking antibiotics to prevent antibiotic induced diarrhea/gastroenteritis(C. difficile infection) Pending Studies at Discharge: No Stand-Alone Forms: My [facility] Medications and DC Order Prescriptions: New doxycycline hyclate 100 mg capsule 100 mg PO BID 30 Days Qty: 60 RF: 0 ciprofloxacin HCl 500 mg tablet 500 mg PO BID 30 Days Qty: 60 RF: 0 Continued docusate sodium [Colace] 100 mg Capsule 200 mg PO BID RF: 0 omeprazole 20 mg Capsule,Delayed Release(Dr/Ec) 20 mg PO BID RF: 0 folic acid 1 mg Tablet 1 mg PO QAM RF: 0 albuterol sulfate [Ventolin HFA] 90 mcg/actuation Hfa Aerosol Inhaler 1 puff INHALATION Q4H PRN (Reason: Shortness Of Breath) RF: 0 gabapentin 300 mg Capsule 300 mg PO TID RF: 0 furosemide 40 mg Tablet 40 mg PO BID RF: 0 metformin 1,000 mg tablet 1,000 mg PO BIDM RF: 0 warfarin 5 mg tablet 10 mg PO SUMOWEFR RF: 0 warfarin 5 mg tablet 15 mg PO TUTHSA RF: 0 fluticasone propion-salmeterol [Advair Diskus] 500-50 mcg/dose Blister With Device 1 inh INHALATION BID RF: 0 spironolactone 100 mg Tablet 100 mg PO QAM RF: 0 diphenhydramine HCl [Benadryl] 25 mg Capsule 25 - 50 mg PO Q6 PRN (Reason: itching) Qty: 60 RF: 0 ferrous sulfate 325 mg (65 mg iron) Tablet 325 mg PO QAM RF: 0 oxycodone 5 mg tablet 10 mg PO Q6H PRN (Reason: pain) Qty: 10 RF: 0 Discharge Orders: Discharge Order (Routine); Ordered 05/20/19 Ordered By: Sarai Donaldson Admission Data Admit Date/Time: 05/17/19 15:19 Attending Provider: Sarai Donaldson Admit Provider: Steve Kuhn Primary Care Provider: Gareth Lin Other Providers: Todd Perez ; Karl Azul Other Interventions: Discharge Summary Assessment (RN) Last Done: 05/20/19 10:41
== END 2019-05-20 12:13 | disposition home or self-care (01) | DRG 299 ==
LOC: 3N 08:16 → ED 08:16 → SUATTDRO 11:19 → 3N 12:05

== ENCOUNTER 2022-10-02 07:34 | Inpatient (IN) ==
[2022-10-02] MEDS ORDERED: MoRPHine SULFATE 4 MG/ML 1 ML CARP\\VIAL IV STA ×2 (08:20→11:06)
--- NOTE | 2022-10-02 08:21 | Emergency Department Note ---
ED Provider Note History of Present Illness Chief Complaint: Infection Stated Complaint: POSSIBLE FOOT INFECTION Time Seen by Provider: 10/02/22 07:45 This is a 47-year-old male with a history of type 2 diabetes, advanced venous insufficiency, chronic DVT, type 2 diabetes, on warfarin, chronic narcotic use, who presents to the emergency department with progressive pain in both of his legs and concern that his wounds are infected. He has been dealing with this for several months. He was seen by vascular medicine at the end of July about 1.5 months ago which was requested by his willow worker before possible left foot surgery related to a tendon tear, and at that visit it was recommended that he be seen in the emergency department for debridement and possible antibiotics. Patient did not end up presenting to the emergency department due to the holidays and ended up being seen by his primary care provider several weeks late r who put him on oral clindamycin and he states that these antibiotics did not improve his wounds. He states he has been treated with vancomycin and Zosyn in the past, has a history of MRSA, and also has a port for work and IV antibiotic requirements due to these wounds. He presents today because the pain is becoming much more severe and he cannot even stand without excruciating pain. He also thinks he may have a chest cold. He endorses chills but no fevers. He states the wounds appear about the same as they have over the past 1 to 2 months but the odor is becoming more significant. He denies any new swelling in the legs, chest pain, shortness of breath. Home Medications Medication Instructions Recorded Confirmed Type albuterol sulfate 90 mcg/actuation 1 puff inhalation Q6H PRN 05/09/18 10/02/22 History aerosol inhaler (Ventolin HFA) Shortness Of Breath folic acid 1 mg tablet 1 mg PO QAM 05/09/18 10/02/22 History omeprazole 20 mg capsule,delayed 20 mg PO BID 05/09/18 10/02/22 History release diphenhydramine HCl 25 mg capsule 25 - 50 mg PO Q6H PRN Itching 10/23/19 10/02/22 History (Benadryl) furosemide 80 mg tablet 80 mg PO BID17 10/23/19 10/02/22 History atorvastatin 10 mg tablet 10 mg PO QAM 06/05/20 10/02/22 History gabapentin 600 mg tablet 600 mg PO BID 06/05/20 10/02/22 History multivitamin 1 tab PO QAM 06/05/20 10/02/22 History spironolactone 50 mg tablet 50 mg PO QAM 06/05/20 10/02/22 History warfarin 10 mg tablet 10 mg PO DAILY 08/25/22 10/02/22 History buspirone 15 mg tablet 15 mg PO BID 10/02/22 10/02/22 History fluoxetine 20 mg capsule 20 mg PO HS 10/02/22 10/02/22 History fluticasone 500 mcg-salmeterol 50 1 inh inhalation BID 10/02/22 10/02/22 History mcg/dose blistr powdr for inhalation metformin 1,000 mg tablet 1,000 mg PO BID 10/02/22 10/02/22 History montelukast 10 mg tablet 10 mg PO DAILY 10/02/22 10/02/22 History Allergies Allergy/AdvReac Type Severity Reaction Status Date / Time peas Allergy Severe Anaphylaxis Verified 08/25/22 08:53 vancomycin Allergy Severe itching Verified 10/02/22 11:50 Bactrim Allergy Intermediate hives Verified 04/12/18 15:58 sulfamethoxazole Allergy Intermediate hives Verified 08/25/22 08:53 trimethoprim Allergy Intermediate hives Verified 08/25/22 08:53 tuna Allergy Severe anaphylaxis Uncoded 10/02/22 11:51 Past Med/Surg History Medical History (Updated 10/02/22 @ 12:51 by Mirtha Adan DO) Anxiety and depression Asthma USED RESCUE INHALER TODAY Blood clotting disorder ? NAME Cellulitis BILAT LEGS (WRAPS LEGS/DRY CLOTH) CURRENTLY HAS SOME OPEN WOUNDS>GOES TO WOUND CLINIC/RUSH Chronic deep vein thrombosis (DVT) 2018 (HOSPITALIZED AT [facility]) Chronic narcotic use Chronic ulcer of lower extremity RT LEG ONLY OPEN WOUND AT THIS TIME Chronic venous stasis dermatitis of both lower extremities Cirrhosis Diabetes mellitus, type 2 GERD (gastroesophageal reflux disease) History of ETOH abuse QUIT 2018 HTN (hypertension) Hyperlipidemia Pulmonary embolism 13 YEARS AGO ? DETAILS Pulmonary nodule CT chest 04/12/18 - 4 mm RUL nodule, f/u 12 months Tobacco abuse Type 2 diabetes mellitus Surgical History History of anesthesia reaction WITH A-PORT INSERTION, WOKE UP IN MIDDLE OF PROCEDURE History of vascular access device APORT IN RT CHEST (IN PLACE) [place] teeth removed Family History Father ETOH abuse Cirrhosis Mother Hypercoagulable state Prothrombin Factor II Mutation, 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, boderline hyperhomocystemia Social History Smoking Status: Current every day smoker Tobacco Type: Cigarettes Cigarettes Per Day: 3; Second Hand Exposure: Yes; Hx Alcohol Use: No Hx Substance Use: No Preferred Language: Niuean Communication Ability: Effective Visual Impairment: No Limitations Hearing Ability: Normal 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 Required: No Beliefs That Will Affect Care: None marital status: Current Living Situation: Significant Other How many Children do You have: 0 Feels Safe at Home: Yes Assistive Devices: Glasses Physical Exam Vital Signs Vital Signs - 24 hr 10/02/22 07:36 10/02/22 08:34 Temperature 97.5 F L Temperature Source Temporal Artery Scan Pulse Rate 83 Pulse Rate [Right Finger] 72 Respiratory Rate 14 18 Respiratory Effort / Characteristics Non-Labored Spontaneous Respiratory Depth Normal Respiratory Pattern Regular Blood Pressure 142/79 H Blood Pressure [Right Arm] 128/78 Blood Pressure Mean 100 Blood Pressure Mean [Right Arm] 94 Blood Pressure Position [Right Arm] Sitting Pulse Oximetry 99 98 Oxygen Delivery Method Room Air Room Air Sepsis Recent Fever Within 48 Hours No Sepsis New/Unexplained Change in Mental Status No Sepsis Action Taken by Nursing No Action Required CONSTITUTIONAL: Well developed, well nourished, in no acute distress. HEAD: Normocephalic, atraumatic. EYES: conjunctivae normal, extraocular muscles intact. NECK: Full active range of motion. RESPIRATORY: Breathing unlabored and symmetric. Diffuse rhonchi appreciated. No wheezes or rales. No respiratory distress CARDIOVASCULAR: Regular rate and rhythm. No murmurs, rubs, or gallops. DP pulses 2+ bilaterally. ABDOMEN: Normal bowel sounds. Soft, nontender MUSCULOSKELETAL: Right lower extremity: Superficial erosions/ulcerations present on the lower leg extending into the ankle with some yellow crusting as well as surrounding black necrotic tissue. Left lower extremity: There is a deeper ulceration with black/green purulent material located along the medial lower leg this is malodorous. There is macerated yellow crusting surrounding. This wound and more extensive with black necrotic tissue superior and inferior to this wound. The foot is erythematous with a medial deformity. Bilateral lower extremities are tender to palpation. There is no significant edema. No fluctuance or expressible fluid. SKIN: [place], warm, dry. NEUROLOGIC: Awake, alert, oriented. Gaze is conjugate. Face symmetric, speech normal. Moves head and all four extremities spontaneously. PSYCHIATRIC: Appropriate. Normal affect Course Administered Medications Acetaminophen (Acetaminophen 500 Mg Tab) 1,000 mg PO Q8H [facility] Stop: 11/01/22 13:59 Last Admin: 10/02/22 14:34 Dose: 1,000 mg Documented By: TAINA Buspirone HCl (Buspirone 15 Mg Tab) 15 mg PO BID [facility] Stop: 11/01/22 13:03 Last Admin: 10/02/22 14:34 Dose: 15 mg Documented By: TAINA Furosemide (Furosemide 80 Mg Tab) 80 mg PO BID17 [facility] Stop: 11/01/22 16:59 Last Admin: 10/02/22 17:22 Dose: 80 mg Documented By: TAINA Gabapentin (Gabapentin 600 Mg Tab) 600 mg PO BID [facility] Stop: 11/01/22 13:03 Last Admin: 10/02/22 14:34 Dose: 600 mg Documented By: TAINA Heparin Sodium/Dextrose (Heparin Sodium/Dextrose) 25,000 units in 500 mls @ 29 mls/hr IV .[id number] [facility]; Protocol Stop: 11/01/22 13:59 Last Admin: 10/02/22 14:38 Dose: 1,450 units/hr, 29 mls/hr Documented By: TAINA Co-signed By: REBEKAH Insulin Aspart (Insulin Aspart Per Unit) 0 units SC ACHS [facility] Stop: 11/01/22 16:29 Last Admin: 10/02/22 17:46 Dose: 3 units Documented By: TAINA Co-signed By: REBEKAH Insulin Glargine (Lantus Per Unit Charge) 15 units SQ BID [facility] Stop: 11/01/22 13:03 Last Admin: 10/02/22 14:52 Dose: 15 units Documented By: TAINA Co-signed By: MADELINE Montelukast Sodium (Montelukast Sodium 10 Mg Tablet) 10 mg PO DAILY [facility] Stop: 11/01/22 13:03 Last Admin: 10/02/22 14:34 Dose: 10 mg Documented By: TAINA Multi-Ingredient Cream (Eucerin Cr 120 Gm Jar) 1 appln EXT TID [facility] Stop: 11/01/22 13:59 Last Admin: 10/02/22 14:56 Dose: 1 appln Documented By: TAINA Nicotine (Nicotine 21 Mg/24 Hr Tdsy) 21 mg TD QAM [facility] Stop: 11/01/22 13:03 Last Admin: 10/02/22 14:35 Dose: 21 mg Documented By: TAINA Oxycodone HCl (Oxycodone Hcl Ir 5 Mg Tab (Immediate Release)) 5 mg PO Q6H PRN PRN Reason: Pain Stop: 10/16/22 13:03 Last Admin: 10/02/22 15:37 Dose: 5 mg Documented By: TAINA Spironolactone (Spironolactone 25 Mg Tab) 50 mg PO QAM [facility] Stop: 11/01/22 13:03 Last Admin: 10/02/22 14:34 Dose: 50 mg Documented By: TAINA Warfarin Sodium (Warfarin Sod 10 Mg Tab) 10 mg PO DAILY@1600 [facility] Stop: 11/01/22 15:59 Last Admin: 10/02/22 17:21 Dose: 10 mg Documented By: TAINA Discontinued Medications Heparin Sodium (Porcine) (Heparin Sod (Porcine) 1000 Unit/Ml) 7,000 units IV NOW ONE Stop: 10/02/22 14:01 Last Admin: 10/02/22 14:39 Dose: 7,000 units Documented By: TAINA Co-signed By: REBEKAH Heparin Sodium/Dextrose (Heparin Iv Adult Wt-Based Standard With Bolus Protocol) 1 each IV NOW STA; Protocol Stop: 10/02/22 13:05 Last Admin: 10/02/22 15:15 Dose: Not Given Documented By: TAINA Cefepime HCl 2,000 mg/ Syringe 20 mls @ 5 mls/min IV NOW STA Stop: 10/02/22 11:07 Last Admin: 10/02/22 12:20 Dose: 5 mls/min Documented By: ART Daptomycin 400 mg/ Syringe 8 mls @ 4 mls/min IV NOW STA; Protocol Stop: 10/02/22 11:56 Last Admin: 10/02/22 12:26 Dose: 4 mls/min Documented By: ART Morphine Sulfate (Morphine Sulfate 4 Mg/Ml 1 Ml Carp\Vial) 4 mg IV NOW STA Stop: 10/02/22 08:21 Last Admin: 10/02/22 08:59 Dose: 4 mg Documented By: KELLEY Morphine Sulfate (Morphine Sulfate 4 Mg/Ml 1 Ml Carp\Vial) 4 mg IV NOW STA Stop: 10/02/22 11:07 Last Admin: 10/02/22 12:17 Dose: 4 mg Documented By: ART Medical Decision Making Differential Diagnosis Venous ulceration, infection, osteomyelitis, gangrene, DVT, arterial insuffici ency, among other pathology Medical Records Attestation: I reviewed the patient's medical records. Additional Comments: Reviewed [facility] records from past 3 months. Patient was seen in [facility] emergency department for similar presentation 3 months ago. Visualized images from that visit and the wound on the left leg is somewhat worse today. At that visit, consult with the patient's willow worker recommended ciprofloxacin and Flagyl and close follow-up. He was also prescribed Augmentin by his primary care provider last month in addition to mupirocin. Reviewed vascular notes from [facility] vascular medicine from 08/25/2022. Was referred to ED for debridement and expedited care at that visit. Laboratory Data 10/02/22 09:32 10/02/22 09:32 Lab Results 10/02/22 10/02/22 10/02/22 Range/Units 08:43 09:32 09:32 WBC 4.96 (4.8-10.8) K/ul RBC 4.47 L (4.70-6.10) M/uL Hgb 12.7 L (14.0-18.0) g/dl Hct 37.8 L (42.0-52.0) % MCV 84.6 (80.0-100.0) fL MCH 28.4 (25.0-34.0) pg MCHC 33.6 (32.0-36.0) g/dL RDW Std Deviation 44.5 (36.4-46.3) fL RDW Coeff of Kip 14.4 (11.5-14.5) % Plt Count 171 (130-400) K/uL MPV 9.8 (9.4-12.4) fL Immature Gran % (Auto) 0.4 % Neut % (Auto) 72.7 % Lymph % (Auto) 18.3 % [place] % (Auto) 5.8 % Eos % (Auto) 1.8 % Baso % (Auto) 1.0 % Neut # (Auto) 3.60 (1.40-6.50) K/uL Lymph # (Auto) 0.91 L (1.2-3.4) K/uL [place] # (Auto) 0.29 (0.11-0.59) K/uL Eos # (Auto) 0.09 (0-0.50) K/uL Baso # (Auto) 0.05 (0-0.2) K/uL Immature Gran # (Auto) 0.02 (0.01-0.20) K/uL PT 12.9 H (9.0-12.0) Seconds INR 1.2 H (0.9-1.1) Sodium (136-145) mmol/L Potassium (3.5-5.1) mmol/L Chloride (98-107) mmol/L Carbon Dioxide (21-32) mmol/L Anion Gap (3-11) BUN (6-23) mg/dl Creatinine (0.6-1.4) mg/dl Est Cr Clr Drug Dosing ml/min Est GFR ( Amer) ml/min Est GFR (Non-Af Amer) ml/min BUN/Creatinine Ratio (10-20) Glucose (70-99(Fasting)) mg/dl Calcium (8.5-10.1) mg/dl Total Bilirubin (0.2-1.0) mg/dl AST (13-39) U/L ALT (7-52) U/L Alkaline Phosphatase (34-104) U/L Total Creatine Kinase (30-223) U/L Total Protein (6.0-8.3) gm/dl Albumin (3.4-5.0) gm/dl Globulin (2.5-4.0) gm/dl Albumin/Globulin Ratio (0.9-2) SARS-CoV-2 (PCR) NEGATIVE (Negative) Influenza Type A (PCR) Negative (Neg) Influenza Type B (PCR) Negative (Neg) RSV (RT-PCR) Negative (Neg) 10/02/22 Range/Units 09:32 WBC (4.8-10.8) K/ul RBC (4.70-6.10) M/uL Hgb (14.0-18.0) g/dl Hct (42.0-52.0) % MCV (80.0-100.0) fL MCH (25.0-34.0) pg MCHC (32.0-36.0) g/dL RDW Std Deviation (36.4-46.3) fL RDW Coeff of Kip (11.5-14.5) % Plt Count (130-400) K/uL MPV (9.4-12.4) fL Immature Gran % (Auto) % Neut % (Auto) % Lymph % (Auto) % [place] % (Auto) % Eos % (Auto) % Baso % (Auto) % Neut # (Auto) (1.40-6.50) K/uL Lymph # (Auto) (1.2-3.4) K/uL [place] # (Auto) (0.11-0.59) K/uL Eos # (Auto) (0-0.50) K/uL Baso # (Auto) (0-0.2) K/uL Immature Gran # (Auto) (0.01-0.20) K/uL PT (9.0-12.0) Seconds INR (0.9-1.1) Sodium 136 (136-145) mmol/L Potassium 4.2 (3.5-5.1) mmol/L Chloride 104 (98-107) mmol/L Carbon Dioxide 27 (21-32) mmol/L Anion Gap 5 (3-11) BUN 11 (6-23) mg/dl Creatinine 0.70 (0.6-1.4) mg/dl Est Cr Clr Drug Dosing 148.6 ml/min Est GFR ( Amer) 129.3 ml/min Est GFR (Non-Af Amer) 111.6 ml/min BUN/Creatinine Ratio 15.7 (10-20) Glucose 118 H (70-99(Fasting)) mg/dl Calcium 9.4 (8.5-10.1) mg/dl Total Bilirubin 0.5 (0.2-1.0) mg/dl AST 11 L (13-39) U/L ALT 13 (7-52) U/L Alkaline Phosphatase 60 (34-104) U/L Total Creatine Kinase 34 (30-223) U/L Total Protein 7.7 (6.0-8.3) gm/dl Albumin 3.9 (3.4-5.0) gm/dl Globulin 3.8 (2.5-4.0) gm/dl Albumin/Globulin Ratio 1.0 (0.9-2) SARS-CoV-2 (PCR) (Negative) Influenza Type A (PCR) (Neg) Influenza Type B (PCR) (Neg) RSV (RT-PCR) (Neg) Imaging Data Attestation: I personally reviewed and interpreted this imaging study as follows: (I agree with the radiologist's interpretation) Radiologist's Impression: Tibia/Fibula X-Ray 10/02/22 08:17 LEFT TIBIA AND FIBULA 2 VIEWS CLINICAL HISTORY: Lower extremity wound. FINDINGS: AP and lateral views of the left tibia and fibula are compared to study dated 07/06/2018. The skeletal structures are osteopenic. There is no radiographic evidence of left tibial or fibular fracture. No bony erosion is seen. Benign-appearing periostitis is again seen involving the tibia and fibula. The knee and ankle joints are grossly maintained. The overlying soft tissues are atrophic. Soft tissue edema is present throughout the calf and around the ankle. A wound is suggested in the medial soft tissues above the ankle. No radiodense foreign body is seen. There is atherosclerotic calcification and phleboliths. IMPRESSION: 1. No acute bony abnormality is identified. 2. Soft tissue edema with a wound suggested in the medial left lower extremity. Clinical correlation will be required. Electronically signed by: Emil Morelos M.D. 10/02/2022 8:59 AM MDM Narrative 47-year-old male with a complex history as described above presents with bilateral leg pain and progression of venous wounds especially on his left leg. His examination is concerning for nonhealing ulcerations despite multiple rounds of outpatient antibiotics. Per vascular from 1.5 months ago he was referred to the emergency department for debridement and expedited care and was lost to follow-up. Here today he is afebrile without any fever reducing medications, otherwise in no distress. See above for physical exam findings related to his legs which are in poor condition, worse on the left than the right with malodorous necrotic infected tissue present. Patient was given 2 doses of morphine for pain control. His labs demonstrate no leukocytosis. Stable anemia. Subtherapeutic INR 1.2. Renal function is normal. No transaminitis. X-ray of the left tibia/fibula shows periostitis and soft tissue swelling. Chest x-ray is stable. Given the complexity of the patient's situation, noncompliance, and need from multiple specialty input to develop a comprehensive plan, I spoke with Dr. Adan (hospitalist) who agrees to admit the patient for further evaluation and management. We discussed antibiotic options and will start the patient on cefepime as well as daptomycin after consulting with the clinical pharmacist. Patient will likely require debridement and amputation is certainly a possibility given the poor condition of his legs coupled with his comorbidities. Impression Venous stasis ulcer, Subtherapeutic international normalized ratio (INR) Discharge Plan Visit Data Chief Complaint: Infection Stated Complaint: POSSIBLE FOOT INFECTION ED Provider: Santiago Cox ED Midlevel Provider: Melquiades Starr Discharge Problem: Venous stasis ulcer, Subtherapeutic international normalized ratio (INR) Patient Disposition: Admitted As Inpatient Condition: Fair Discharge Instructions Interventions: ED Discharge Assessment Last Done: 10/02/22 12:13 : Venous stasis ulcer Qualifiers: Venous stasis ulcer site: other part of lower leg Varicose vein presence: without varicose veins Laterality: left Non-pressure ulcer stage: limited to breakdown of skin Qualified Code(s): I87.2 - Venous insufficiency (chronic) (peripheral)
--- NOTE | 2022-10-02 08:58 | XRay Report ---
SINGLE VIEW CHEST CLINICAL HISTORY: Cough FINDINGS: An AP, portable, upright chest radiograph is compared to study dated 05/16/2019 and correlat ed with chest CT dated 05/13/2019. A right internal jugular central venous infusion port is new from [facility]. The heart is enlarged. The pulmonary vasculature is noncongested. Chronic interstitial thick ening is similar to previous. No airspace consolidation or large pleural effusion is identified. No pneumothorax is seen. The bony thorax is grossly intact. IMPRESSION: Cardiomegaly with no acute cardiopulmonary abnormality identified. ACT 112: Negative or not required by law. Electronically signed by: Emil Morelos M.D. 10/02/2022 8:57 AM
--- NOTE | 2022-10-02 09:01 | XRay Report ---
LEFT TIBIA AND FIBULA 2 VIEWS CLINICAL HISTORY: Lower extremity wound. FINDINGS: AP and lateral views of the left tibia and fibula are compared to study dated 07/06/2018. Th e skeletal structures are osteopenic. There is no radiographic evidence of left tibial or fibular fra cture. No bony erosion is seen. Benign-appearing periostitis is again seen involving the tibia and fi bula. The knee and ankle joints are grossly maintained. The overlying soft tissues are atrophic. Soft tissue edema is present throughout the calf and around the ankle. A wound is suggested in the medial soft tissues above the ankle. No radiodense foreign body is seen. There is atherosclerotic calcifica tion and phleboliths. IMPRESSION: 1. No acute bony abnormality is identified. 2. Soft tissue edema with a wound suggested in the medial left lower extremity. Clinical correlation will be required. Electronically signed by: Emil Morelos M.D. 10/02/2022 8:59 AM
[2022-10-02 09:30] LABS: Influenza A virus by PCR Negative (Neg); Influenza B virus by PCR Negative (Neg); RSV by PCR Negative (Neg); SARS CoV2 RNA(COVID-19) Ceph NEGATIVE (Negative)
[2022-10-02 09:42] LABS: Basophils # (auto) 0.05 K/uL (0-0.2); Eosinophils # (auto) 0.09 K/uL (0-0.50); Eosinophils % (auto) 1.8 %; Hematocrit (blood only) 37.8 % (42.0-52.0); Hemoglobin 12.7 g/dl (14.0-18.0); Immature Granulocytes # (auto) 0.02 K/uL (0.01-0.20); Immature Granulocytes % (auto) 0.4 %; Lymphocytes # (auto) 0.91 K/uL (1.2-3.4); Lymphocytes % (auto) 18.3 %; Mean Corpuscular Hemoglobin 28.4 pg (25.0-34.0); Mean Corpuscular Hgb Conc 33.6 g/dL (32.0-36.0); Mean Corpuscular Volume 84.6 fL (80.0-100.0); Mean Platelet Volume 9.8 fL (9.4-12.4); Monocytes # (auto) 0.29 K/uL (0.11-0.59); Monocytes % (auto) 5.8 %; Neutrophils % (auto) 72.7 %; Platelet Count 171 K/uL (130-400); RDW Coefficient of Variation 14.4 % (11.5-14.5); RDW Standard Deviation 44.5 fL (36.4-46.3); Red Blood Count 4.47 M/uL (4.70-6.10); White Blood Count 4.96 K/ul (4.8-10.8)
[2022-10-02 09:54] LABS: INR 1.2 (0.9-1.1); Prothrombin Time 12.9 Seconds (9.0-12.0)
[2022-10-02 10:04] LABS: Albumin Level 3.9 gm/dl (3.4-5.0); BUN Creatinine Ratio 15.7 (10-20); Bilirubin,Total 0.5 mg/dl (0.2-1.0); Calcium 9.4 mg/dl (8.5-10.1); Creatinine Clr Calc Pharmacy 148.6 ml/min; Est GFR (African American) 129.3 ml/min; Est GFR (Non-African American) 111.6 ml/min; Globulin 3.8 gm/dl (2.5-4.0); Potassium 4.2 mmol/L (3.5-5.1); Total Protein 7.7 gm/dl (6.0-8.3)
--- NOTE | 2022-10-02 11:00 | History & Physical Report ---
Date of Service October 02, 2022 Assessment & Plan (1) Venous ulcers of both lower extremities: Plan: Likely with worsening infection. Has a h/o chronic venous ulcers with known chronic thrombus on warfarin. The patient is an active smoker. He presents with worsening bilateral LE pain, and infectious symptoms (drainage, redness, pain). Starting Daptomycin (allergic to vanc) and cefepime for broad coverage given h/o uncontrolled diabetes and liver disease. Wound and blood cultures pending. Consult orthopedics as debridement is likely needed. Arterial system appears to be intact for now, cont to check pedal pulses. Recent arterial studies were unable to be performed on the RLE given the extensive nature of the wounds, and on the left there was mild calcified plaque in the arterial system with patent distal posterior tibial artery. (2) Venous insufficiency (chronic) (peripheral): Plan: plan as above, wound care also consulted. (3) Type 2 diabetes mellitus: Plan: A1C pending, on metformin. Hold and use lantus/novolog while inpatient. (4) Chronic deep vein thrombosis (DVT): Plan: continues on warfarin with INR subtherapeutic. He also has a heterozygous MTHFR mutation contributing to an underling hypercoagulable state. Will cover him with heparin until INR therapeutic. trend INR daily. (5) History of MRSA infection: Plan: contact precautions. (6) Chronic narcotic use: Plan: Reports being off percocet now. Starting with oxycodone PRN but caution to avoid dependence while in the hospital. (7) History of ETOH abuse: Plan: Reports quitting alcohol 5 months ago. Praised for this effort. (8) Cirrhosis: Plan: alcoholic cirrhosis of the liver with ascites in the past. Currently no evidence of ascites on exam. He reports compliance with lasix and s pironolactone which we will continue at this time. Appears compensated. (9) Hypercoagulable state: Plan: as above. (10) Tobacco abuse: Plan: chronic, contemplative phase. Cont with Nicoderm patches here. He was counseled on strict smoking cessation and verbalized understanding of the importance of this. (11) COPD (chronic obstructive pulmonary disease): Plan: chronic, not in exacerbation. Cont daily inhaler and singulair per home regimen. Reports a history of chronic allergic rhinitis. (12) Anemia: Plan: chronic, likely related to chronic disease. At his baseline. Cont to monitor periodically. (13) Depression with anxiety: Plan: chronic, stable. continues on Buspar and fluoxetine per home regimen. DVT proph-heparin drip/coumadin Full Code Dispo-pending surgery evaluation and recs. 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 He states that since his Dec vascular appointment (08/25/22) he has seen an increase in the wounds have more drainage which is yellowish (L>R). He has seen worsening redness, describes worsening pain and wounds getting bigger. He denies fevers, chills. Reports a chronic cough, and has "asthma" but hasn't needed Ventolin recently-actively smoking two packs per day with no interest in quitting. Still eating but reports lower appetite. Quit drinking alcohol 5 months ago. Denies marijuana or other street drug use. No SOB or chest pain. He does report pain in his LLE that is severe enough to keep him up at night. Allergies Allergy/AdvReac Type Severity Reaction Status Date / Time peas Allergy Severe Anaphylaxis Verified 08/25/22 08:53 vancomycin Allergy Severe itching Verified 10/02/22 11:50 Bactrim Allergy Intermediate hives Verified 04/12/18 15:58 sulfamethoxazole Allergy Intermediate hives Verified 08/25/22 08:53 trimethoprim Allergy Intermediate hives Verified 08/25/22 08:53 tuna Allergy Severe anaphylaxis Uncoded 10/02/22 11:51 Home Medications Medication Instructions Recorded Confirmed Type albuterol sulfate 90 mcg/actuation 1 puff inhalation Q6H PRN 05/09/18 10/02/22 History aerosol inhaler (Ventolin HFA) Shortness Of Breath folic acid 1 mg tablet 1 mg PO QAM 05/09/18 10/02/22 History omeprazole 20 mg capsule,delayed 20 mg PO BID 05/09/18 10/02/22 History release diphenhydramine HCl 25 mg capsule 25 - 50 mg PO Q6H PRN Itching 10/23/19 10/02/22 History (Benadryl) furosemide 80 mg tablet 80 mg PO BID17 10/23/19 10/02/22 History atorvastatin 10 mg tablet 10 mg PO QAM 06/05/20 10/02/22 History gabapentin 600 mg tablet 600 mg PO BID 06/05/20 10/02/22 History multivitamin 1 tab PO QAM 06/05/20 10/02/22 History spironolactone 50 mg tablet 50 mg PO QAM 06/05/20 10/02/22 History warfarin 10 mg tablet 10 mg PO DAILY 08/25/22 10/02/22 History buspirone 15 mg tablet 15 mg PO BID 10/02/22 10/02/22 History fluoxetine 20 mg capsule 20 mg PO HS 10/02/22 10/02/22 History fluticasone 500 mcg-salmeterol 50 1 inh inhalation BID 10/02/22 10/02/22 History mcg/dose blistr powdr for inhalation metformin 1,000 mg tablet 1,000 mg PO BID 10/02/22 10/02/22 History montelukast 10 mg tablet 10 mg PO DAILY 10/02/22 10/02/22 History Past Med/Surg History Medical History (Updated 10/02/22 @ 12:51 by Mirtha Adan DO) Anxiety and depression Asthma USED RESCUE INHALER TODAY Blood clotting disorder ? NAME Cellulitis BILAT LEGS (WRAPS LEGS/DRY CLOTH) CURRENTLY HAS SOME OPEN WOUNDS>GOES TO WOUND CLINIC/[facility] Chronic deep vein thrombosis (DVT) 2017 (HOSPITALIZED AT [facility]) Chronic narcotic use Chronic ulcer of lower extremity RT LEG ONLY OPEN WOUND AT THIS TIME Chronic venous stasis dermatitis of both lower extremities Cirrhosis Diabetes mellitus, type 2 GERD (gastroesophageal reflux disease) History of ETOH abuse QUIT 2018 HTN (hypertension) Hyperlipidemia Pulmonary embolism 13 YEARS AGO ? DETAILS Pulmonary nodule CT chest 04/12/18 - 4 mm RUL nodule, f/u 12 months Tobacco abuse Type 2 diabetes mellitus Surgical History History of anesthesia reaction WITH A-PORT INSERTION, WOKE UP IN MIDDLE OF PROCEDURE History of vascular access device APORT IN RT CHEST (IN PLACE) [place] teeth removed Family History Father ETOH abuse Cirrhosis Mother Hypercoagulable state Prothrombin Factor II Mutation, 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, boderline hyperhomocystemia Social History Smoking Status: Current every day smoker Tobacco Type: Cigarettes Cigarettes Per Day: 3; Second Hand Exposure: Yes; Hx Alcohol Use: No Hx Substance Use: No Preferred Language: Estonian Communication Ability: Effective Visual Impairment: No Limitations Hearing Ability: Normal Eddy Current Inspector Required: No Beliefs That Will Affect Care: None marital status: Current Living Situation: Significant Other How many Children do You have: 0 Feels Safe at Home: Yes Assistive Devices: Glasses Review of Systems Review of Systems: All systems reviewed and negative except as indicated above. Physical Exam Physical Exam: CONSTITUTIONAL: WNWD, vitals as above, generally well- appearing, NAD EYES: PERRL, normal conjunctivae, no scleral icterus ENT: external ear and nose normal, oropharynx clear, oral mucosa moist, poor dentition NECK: trachea midline RESPIRATORY: clear to auscultation bilaterally, no crackles, rales or wheezes, normal respiratory effort CARDIOVASCULAR: regular rate and rhythm, S1 and 2 heard without murmurs, gallops or rubs, no JVD, no peripheral edema, +2 pedala pulses bilaterally, extremities are warm and well-perfused. CHEST: +port accessed on right anterior chest wall. GASTROINTESTINAL: soft, nontender, ND, no guarding MUSCULOSKELETAL: strength 5/5 throughout, head is normocephalic and atraumatic SKIN: warm and dry, lower extremities with Stage II ulcerations and surrounding erythmea with necrotic appearing tissue. NEUROLOGIC: patellar DTRs 2+ bilat. PERRL, EOMI, no facial palsy, no dysarthria. Touch, pain and proprioception normal. CN 2-12 grossly intact, no sensory deficit, normal cognition, normal speech, no tremor PSYCHIATRIC: alert cooperative and oriented to person, place and time. Euthymic mood, makes good eye contact, language grossly intact, recent and remote memory grossly intact. Results & Data Results & Data ([facility]) Vital Signs (Past 12 Hours) Vital Signs Temp Pulse Pulse Resp BP BP Pulse Ox 10/02/22 08:34 72 18 128/78 98 10/02/22 07:36 36.4 C L 83 14 142/79 H 99 O2 Del Method 10/02/22 08:34 Room Air 10/02/22 07:36 Room Air Laboratory Results Short CBC 10/02/22 Range/Units 09:32 WBC 4.96 (4.8-10.8) K/ul Hgb 12.7 L (14.0-18.0) g/dl Hct 37.8 L (42.0-52.0) % Plt Count 171 (130-400) K/uL BMP 10/02/22 09:32 Sodium 136 Potassium 4.2 Chloride 104 Carbon Dioxide 27 BUN 11 Creatinine 0.70 Glucose 118 H Calcium 9.4 Liver Function 10/02/22 Range/Units 09:32 Total Bilirubin 0.5 (0.2-1.0) mg/dl AST 11 L (13-39) U/L ALT 13 (7-52) U/L Alkaline Phosphatase 60 (34-104) U/L Albumin 3.9 (3.4-5.0) gm/dl Diagnostic Findings Tibia/Fibula X-Ray 10/02/22 08:17 LEFT TIBIA AND FIBULA 2 VIEWS CLINICAL HISTORY: Lower extremity wound. FINDINGS: AP and lateral views of the left tibia and fibula are compared to study dated 07/06/2018. The skeletal structures are osteopenic. There is no radiographic evidence of left tibial or fibular fracture. No bony erosion is seen. Benign-appearing periostitis is again seen involving the tibia and fibula. The knee and ankle joints are grossly maintained. The overlying soft tissues are atrophic. Soft tissue edema is present throughout the calf and around the ankle. A wound is suggested in the medial soft tissues above the ankle. No radiodense foreign body is seen. There is atherosclerotic calcification and phleboliths. IMPRESSION: 1. No acute bony abnormality is identified. 2. Soft tissue edema with a wound suggested in the medial left lower extremity. Clinical correlation will be required. Electronically signed by: Emil Morelos M.D. 10/02/2022 8:59 AM Chest X-Ray 10/02/22 08:19 SINGLE VIEW CHEST CLINICAL HISTORY: Cough FINDINGS: An AP, portable, upright chest radiograph is compared to study dated 05/16/2019 and correlated with chest CT dated 05/13/2019. A right internal jugular central venous infusion port is new from previous. The heart is enlarged. The pulmonary vasculature is noncongested. Chronic interstitial thickening is similar to previous. No airspace consolidation or large pleural effusion is identified. No pneumothorax is seen. The bony thorax is grossly intact. IMPRESSION: Cardiomegaly with no acute cardiopulmonary abnormality identified. ACT 112: Negative or not required by law. Electronically signed by: Emil Morelos M.D. 10/02/2022 8:57 AM Code Status & VTE Plan VTE Prophylaxis Plan VTE Prophylaxis will be ordered: Yes (1) Type 2 diabetes mellitus Diabetes mellitus residential insulin use: without terminal operations supervisor use (2) Cirrhosis Ascites presence: unspecified Hepatic cirrhosis type: alcoholic cirrhosis Qualified Code(s): K70.30 - Alcoholic cirrhosis of liver without ascites (3) Chronic deep vein thrombosis (DVT) Affected thrombotic vein of extremity: unspecified vein of extremity DVT location: lower extremity Laterality: right Qualified Code(s): I82.501 - Chronic embolism and thrombosis of unspecified deep veins of right lower extremity (4) COPD (chronic obstructive pulmonary disease) COPD type: unspecified COPD Qualified Code(s): J44.9 - Chronic obstructive pulmonary disease, unspecified
[2022-10-02] MEDS ORDERED: CEFEPIME 2,000 MG in SYRINGE 0 ML IV STA (11:04)
[2022-10-02] MEDS ORDERED: VANCOMYCIN HCL 2,500 MG in SODIUM CHLORIDE 0.9% 500 ML IV STA (11:25)
[2022-10-02] MEDS ORDERED: VANCOMYCIN CONSULT ACTIVE PRN (11:27)
[2022-10-02] MEDS ORDERED: DAPTOmycin 400 MG in SYRINGE 0 ML IV STA (11:55)
[2022-10-02] MEDS ORDERED: GLUCOSE 40% GEL 15 GM TUBE PO PRN (13:04)
[2022-10-02] MEDS ORDERED: GLUCAGON FOR INJ 1 MG VIAL SQ PRN (13:04)
[2022-10-02] MEDS ORDERED: DEXTROSE 50% 50 ML SYRINGE IV PRN (13:04)
[2022-10-02] MEDS ORDERED: CARBOHYDRATES FOR HYPOGLYCEMIA PO PRN (13:04)
[2022-10-02] MEDS ORDERED: ALBUTEROL HFA 8 GM INHALER INH PRN (13:04)
[2022-10-02] MEDS ORDERED: Heparin IV Adult Wt-Based Standard WITH Bolus Protocol IV STA (13:04)
[2022-10-02] MEDS ORDERED: GLUCOSE 10 TAB/TUBE PO PRN (13:04)
[2022-10-02] MEDS ORDERED: HEPARIN SOD (PORCINE) 1000 UNIT/ML IV ONE (14:00)
[2022-10-02] MEDS: SPIRONOLACTONE 25 MG TAB PO SCH (14:34)
[2022-10-02] MEDS: GABAPENTIN 600 MG TAB PO SCH ×2 (14:34→22:00)
[2022-10-02] MEDS: MONTELUKAST SODIUM 10 MG TABLET PO SCH (14:34)
[2022-10-02] MEDS: ACETAMINOPHEN 500 MG TAB PO SCH ×2 (14:34→22:00)
[2022-10-02] MEDS: busPIRone 15 MG TAB PO SCH ×2 (14:34→22:00)
[2022-10-02] MEDS: NICOTINE 21 MG/24 HR TDSY TD SCH (14:35)
[2022-10-02] MEDS: HEPARIN SODIUM/DEXTROSE 25,000 UNITS/500 ML BAG IV SCH (14:38)
[2022-10-02] MEDS: LANTUS PER UNIT CHARGE SQ SCH ×2 (14:52→22:20)
[2022-10-02] MEDS: EUCERIN CR 120 GM JAR EXT SCH ×2 (14:56→22:02)
[2022-10-02 15:26] LABS: Partial Thromboplastin Ratio 1.4; Partial Thromboplastin Time 37.8 Seconds (21.0-31.0)
[2022-10-02] MEDS: oxyCODONE HCL IR 5 MG TAB (IMMEDIATE RELEASE) PO PRN ×2 (15:37→22:00)
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
[2022-10-02] MEDS: WARFARIN SOD 10 MG TAB PO SCH (17:21)
[2022-10-02] MEDS: FUROSEMIDE 80 MG TAB PO SCH (17:22)
[2022-10-02] MEDS: INSULIN ASPART PER UNIT SC SCH ×2 (17:46→22:20)
[2022-10-02 21:57] LABS: Partial Thromboplastin Ratio 1.5
[2022-10-02] MEDS: PANTOprazole 40 MG TAB PO SCH (22:00)
[2022-10-02] MEDS: FLUoxetine HCL 20 MG CAP PO SCH (22:00)
[2022-10-02] MEDS: CEFEPIME 2,000 MG in SYRINGE 0 ML IV SCH (22:01)
[2022-10-02] MEDS: FLUTICASONE/VILANTEROL 200/25MCG 14 PUFFS/INHALER INH SCH (22:02)
[2022-10-03] MEDS: MELATONIN 3 MG TAB PO PRN ×2 (00:07→20:49)
[2022-10-03] MEDS: oxyCODONE HCL IR 5 MG TAB (IMMEDIATE RELEASE) PO PRN ×3 (04:43→19:26)
[2022-10-03] MEDS: CEFEPIME 2,000 MG in SYRINGE 0 ML IV SCH ×3 (04:43→20:40)
[2022-10-03 05:01] LABS: Hematocrit (blood only) 38.7 % (42.0-52.0); Hemoglobin 12.9 g/dl (14.0-18.0); Mean Corpuscular Hgb Conc 33.3 g/dL (32.0-36.0); Mean Corpuscular Volume 84.1 fL (80.0-100.0); Mean Platelet Volume 9.6 fL (9.4-12.4); Platelet Count 189 K/uL (130-400); RDW Coefficient of Variation 14.5 % (11.5-14.5); RDW Standard Deviation 44.5 fL (36.4-46.3); White Blood Count 3.77 K/ul (4.8-10.8)
[2022-10-03 05:22] LABS: INR 1.1 (0.9-1.1); Partial Thromboplastin Ratio 1.4; Partial Thromboplastin Time 37.7 Seconds (21.0-31.0); Prothrombin Time 11.2 Seconds (9.0-12.0)
[2022-10-03] MEDS ORDERED: HEPARIN SOD (PORCINE) 1000 UNIT/ML IV ONE (05:40)
[2022-10-03 05:41] LABS: BUN Creatinine Ratio 17.8 (10-20); Calcium 9.5 mg/dl (8.5-10.1); Est GFR (African American) 101.5 ml/min; Est GFR (Non-African American) 87.5 ml/min; Magnesium 2.3 mg/dl (1.7-2.4); Phosphorus 4.3 mg/dl (2.5-4.9); Potassium 4.1 mmol/L (3.5-5.1)
[2022-10-03] MEDS: HEPARIN SODIUM/DEXTROSE 25,000 UNITS/500 ML BAG IV SCH ×2 (06:44→21:54)
[2022-10-03] MEDS: ACETAMINOPHEN 500 MG TAB PO SCH ×3 (07:23→21:55)
[2022-10-03] MEDS ORDERED: ALBUTEROL 0.083% NEBU SOLN 3 ML VIAL NEB PRN (07:48)
[2022-10-03] MEDS: INSULIN ASPART PER UNIT SC SCH ×4 (08:53→20:45)
[2022-10-03] MEDS: LANTUS PER UNIT CHARGE SQ SCH ×2 (08:55→20:45)
[2022-10-03] MEDS: GABAPENTIN 600 MG TAB PO SCH ×2 (09:01→20:44)
[2022-10-03] MEDS: FOLIC ACID 1 MG TAB PO SCH (09:01)
[2022-10-03] MEDS: MONTELUKAST SODIUM 10 MG TABLET PO SCH (09:01)
[2022-10-03] MEDS: busPIRone 15 MG TAB PO SCH ×2 (09:01→20:44)
[2022-10-03] MEDS: ATORVASTATIN 10 MG TAB PO SCH (09:01)
[2022-10-03] MEDS: MULTIVITAMIN TAB PO SCH (09:02)
[2022-10-03] MEDS: PANTOprazole 40 MG TAB PO SCH ×2 (09:02→20:44)
[2022-10-03 09:26] LABS: Estimated Average Glucose 128 mg/dl; Hemoglobin A1C 6.1 % (4.5-5.6)
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
[2022-10-03] MEDS: NICOTINE 21 MG/24 HR TDSY TD SCH (12:35)
[2022-10-03] MEDS: SPIRONOLACTONE 25 MG TAB PO SCH (12:46)
[2022-10-03] MEDS: FUROSEMIDE 80 MG TAB PO SCH ×2 (12:46→17:59)
[2022-10-03] MEDS: DAPTOmycin 400 MG in SYRINGE 0 ML IV SCH (13:31)
--- NOTE | 2022-10-03 13:31 | Magnetic Resonance Report ---
MR lower leg LT wo con HISTORY: Left lower leg cellulitis. r/o osteo, chronic wounds TECHNIQUE: Multiplanar multisequence MRI of the left lower leg was performed without contrast accordi ng to standard departmental protocol. COMPARISON STUDY: Left tibia/fibula 10/02/2022. FINDINGS: No fracture or dislocation within the left tibia or fibula. No loculated fluid collections to suggest an abscess. There is mild subcutaneous trace edema noted within the distal left lower leg. No cortical destruction or abnormal marrow signal intensity to suggest an osteomyelitis. Diffuse fat ty atrophy throughout the majority of the muscles of the left lower leg. There is also minimal edema within the distal left lower leg musculature. This is nonspecific but could be due to a chronic dener vation injury. IMPRESSION: 1. No fractures or evidence for osteomyelitis within the left lower leg. 2. Subcutaneous edema within the distal left lower leg. 3. Diffuse fatty atrophy of the majority of the left lower leg muscles with minimal edema distally. T his is nonspecific but could be due to a chronic denervation injury. ACT 112: Negative or not required by law. Electronically signed by: Julian Gaitan M.D. 10/03/2022 1:29 PM
[2022-10-03] MEDS: HEPARIN 100 UNIT/ML 5ML FLUSH FLUSH PRN (13:35)
[2022-10-03] MEDS: EUCERIN CR 120 GM JAR EXT SCH ×2 (13:35→20:43)
--- NOTE | 2022-10-03 13:53 | Magnetic Resonance Report ---
MR lower leg RT wo con HISTORY: 47 years-old Male r/o osteo chronic wounds chronic soft tissue wound of the lower leg. Clin ical concern for possible osteomyelitis. COMPARISON: Right ankle radiographs 10/23/2019 TECHNIQUE: Multiplanar multisequence MRI of the right lower leg were obtained without the use of IV c ontrast. FINDINGS: Mildly motion degraded exam. This study is not tailored to assess the intrinsic structures of the kne e or ankle. No acute fracture, dislocation, suspicious bone lesion, significant marrow edema or osseo us erosion. Mild diffuse subcutaneous edema. No fluid collections. There is at least moderate diffuse muscle atro phy. IMPRESSION: 1. No evidence of osteomyelitis. 2. Nonspecific subcutaneous edema with chronic denervation change of the musculature. ACT 112: Negative or not required by law. The above report was generated using voice recognition software. It may contain grammatical, syntax o r spelling errors. Electronically signed by: Dante Cavazos M.D. 10/03/2022 1:52 PM
[2022-10-03] MEDS ORDERED: MoRPHine SULFATE 2 MG/ML CARP IV PRN ×2 (14:35→15:21)
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
[2022-10-03 15:00] LABS: Partial Thromboplastin Ratio 0.8; Partial Thromboplastin Time 21.8 Seconds (21.0-31.0)
[2022-10-03] MEDS ORDERED: WARFARIN SOD 7.5 MG TAB PO SCH (16:30)
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
[2022-10-03] MEDS: COLLAGENASE OINT 30 GM TUBE EXT SCH (17:28)
[2022-10-03] MEDS ORDERED: ALBUTEROL 0.083% NEBU SOLN 3 ML VIAL ONE (19:53)
[2022-10-03] MEDS: ALBUTEROL 0.083% NEBU SOLN 3 ML VIAL NEB SCH (19:56)
[2022-10-03 20:28] LABS: Partial Thromboplastin Ratio 1.4; Partial Thromboplastin Time 38.7 Seconds (21.0-31.0)
[2022-10-03] MEDS: AMMONIUM LACTATE 12% LOTION 225 GM BTL EXT SCH (20:43)
[2022-10-03] MEDS: FLUoxetine HCL 20 MG CAP PO SCH (20:44)
[2022-10-03] MEDS: FLUTICASONE/VILANTEROL 200/25MCG 14 PUFFS/INHALER INH SCH (20:44)
--- NOTE | 2022-10-03 23:25 | Vascular Medicine Consultation ---
Date of Consultation October 03, 2022 Assessment & Plan (1) Venous insufficiency (chronic) (peripheral): 2. Longstanding bilateral lower extremity ulcerations 3. History of recurrent DVT, hypercoagulable state --on chronic anticoagulation 4. type 2 DM 5. Tobacco use Patient has bilateral lower extremity ulcers in the setting of chronic venous stasis. Has been dealing with wounds and intermittent infections for years. Has had issues with medical adherence in the past. No significant obstructive disease noted on recent left lower extremity arterial duplex and bilateral toe pressures adequate for healing. Has 2+ pedal pulses on exam today. Do not feel arterial disease playing a significant role in poor wound healing. Venous reflux ultrasound noteworthy for extensive nonobstructive chronic DVT bilaterally from CFV through popliteal veins. Also with SVT involving bilateral GSV/SSV's. Did have some superficial reflux but the setting of extensive deep system disease feel he would not benefit from superficial vein ablation. Deep system venous flow pattern could potentially suggest more proximal venous disease. Would consider CT vein of abdomen/pelvis to rule out IVC/iliac vein disease. Assuming CT unremarkable would continue current diuretics and aggressive compression. No restrictions from an arterial standpoint. Thank you for allowing us to participate in the care of this patient. Please contact with any questions. History of Present Illness Attending Physician: Jimenez Taveras MD History of Present Illness Mr. Hendrix is pleasant 47 year old seen today while admitted for bilateral lower extremity ulcerations in setting of chronic venous disease. Medical history significant for history of recurrent DVT on chronic anticoagulation, prothrombin mutation, MTHFR mutation,type 2 DM, GERD, and asthma. History of medical non-adherence with care between multiple different hospital systems. Previously seen by vascular medicine 08/25/2022. Has been dealing with bilateral lower extremity wounds for the past 13 years complicated by intermittent infection. States his wounds have been worse in his left leg. They typically occur in the setting of increased swelling. He has been hospitalized multiple times at [facility] and more recently [facility] with associated infection. Not admitted to [facility] since 2019, at that time had cellulitis of bilateral lower extremity ulcers. He has had a PICC line in place since around 2018. Patient denies any prior vascular interventions. States he saw vascular surgery several years ago and was told to wear compression stockings. Current ulcers have been present since early June. Prior to that wounds had been healed for several months. Initially referred to us by podiatry for vascular clearance prior to possible extensive left foot surgery. At that time had malodorous wounds appear to be infected and in need of debridement. Was also endorsing severe uncontrolled pain. Presentation to ED visit was recommended at that time. Presenting to [facility] ED 10/02 due to concern for worsening infection. Started on broad-spectrum antibiotics. Seen by orthopedics. MRI recommended which showed no evidence of osteomyelitis bilaterally. Cultures have all been no growth today. Also seen by plastic surgery recommended conservative management. Prior vascular testing: Venous reflux ultrasound 08/2022: Chronic nonocclusive DVT right CFV through pop vein with multiple collaterals. Chronic nonocclusive SVT in right GSV, SSV. Right GSV with reflux. Chronic nonocclusive DVT from left CFV through popliteal vein with collaterals. Chronic nonocclusive SVT left GSV and SSV. Left GSV with reflux of SFJ. Continuous flow potentially more consistent with proximal venous obstruction. Arterial duplex/JAYDE/PVR 08/12/22- ABIs unable to be obtained due to wounds/pain. Right digit pressure 71 mmHg, left 56 mmHg. LLE arterial duplex with patent external iliac to popliteal arteries without significant stenosis. Left TAPAN and distal HEARING AID CONSULTANT are patent. left peroneal artery and proximal HEARING AID CONSULTANT not visualized Venous duplex [facility] 2019- No DVT, thrombus of GSV extending from popliteal fossa to 1.2 cm from CFV Venous duplex at [facility] 2018- Chronic, nonobstructive thrombus involving CFV to popliteal veins bilaterally. Social history: Lives in [facility]. Not employed. Smokes cigarettes Allergies Allergy/AdvReac Type Severity Reaction Status Date / Time peas Allergy Severe Anaphylaxis Verified 08/25/22 08:53 vancomycin Allergy Severe itching Verified 10/02/22 11:50 Bactrim Allergy Intermediate hives Verified 04/12/18 15:58 sulfamethoxazole Allergy Intermediate hives Verified 08/25/22 08:53 trimethoprim Allergy Intermediate hives Verified 08/25/22 08:53 tuna Allergy Severe anaphylaxis Uncoded 10/02/22 11:51 Home Medications Medication Instructions Recorded Confirmed Type albuterol sulfate 90 mcg/actuation 1 puff inhalation Q6H PRN 05/09/18 10/02/22 History aerosol inhaler (Ventolin HFA) Shortness Of Breath folic acid 1 mg tablet 1 mg PO QAM 05/09/18 10/02/22 History omeprazole 20 mg capsule,delayed 20 mg PO BID 05/09/18 10/02/22 History release diphenhydramine HCl 25 mg capsule 25 - 50 mg PO Q6H PRN Itching 10/23/19 10/02/22 History (Benadryl) furosemide 80 mg tablet 80 mg PO BID17 10/23/19 10/02/22 History atorvastatin 10 mg tablet 10 mg PO QAM 06/05/20 10/02/22 History gabapentin 600 mg tablet 600 mg PO BID 06/05/20 10/02/22 History multivitamin 1 tab PO QAM 06/05/20 10/02/22 History spironolactone 50 mg tablet 50 mg PO QAM 06/05/20 10/02/22 History warfarin 10 mg tablet 10 mg PO SUTUTHSA@1600 08/25/22 10/03/22 History buspirone 15 mg tablet 15 mg PO BID 10/02/22 10/02/22 History fluoxetine 20 mg capsule 20 mg PO HS 10/02/22 10/02/22 History fluticasone 500 mcg-salmeterol 50 1 inh inhalation BID 10/02/22 10/02/22 History mcg/dose blistr powdr for inhalation metformin 1,000 mg tablet 1,000 mg PO BID 10/02/22 10/02/22 History montelukast 10 mg tablet 10 mg PO DAILY 10/02/22 10/02/22 History warfarin 10 mg tablet 15 mg PO MOWEFR@1600 10/03/22 10/03/22 History Patient History Medical History (Updated 10/02/22 @ 12:51 by Mirtha Adan, ) Anxiety and depression Asthma USED RESCUE INHALER TODAY Blood clotting disorder ? NAME Cellulitis BILAT LEGS (WRAPS LEGS/DRY CLOTH) CURRENTLY HAS SOME OPEN WOUNDS>GOES TO WOUND CLINIC/[place] Chronic deep vein thrombosis (DVT) 2017 (HOSPITALIZED AT [facility]) Chronic narcotic use Chronic ulcer of lower extremity RT LEG ONLY OPEN WOUND AT THIS TIME Chronic venous stasis dermatitis of both lower extremities Cirrhosis Diabetes mellitus, type 2 GERD (gastroesophageal reflux disease) History of ETOH abuse QUIT 2018 HTN (hypertension) Hyperlipidemia Pulmonary embolism 13 YEARS AGO ? DETAILS Pulmonary nodule CT chest 04/12/18 - 4 mm RUL nodule, f/u 12 months Tobacco abuse Type 2 diabetes mellitus Surgical History History of anesthesia reaction WITH A-PORT INSERTION, WOKE UP IN MIDDLE OF PROCEDURE History of vascular access device APORT IN RT CHEST (IN PLACE) [place] teeth removed Family History Father ETOH abuse Cirrhosis Mother Hypercoagulable state Prothrombin Factor II Mutation, 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, boderline hyperhomocystemia Social History Smoking Status: Current every day smoker Tobacco Type: Cigarettes Cigarettes Per Day: 3; Second Hand Exposure: Yes; Hx Alcohol Use: No Hx Substance Use: No Preferred Language: Turkish Communication Ability: Effective Visual Impairment: No Limitations Hearing Ability: Normal 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 HEENT: Head is normal. Sclerae anicteric. Lungs: Clear to auscultation bilaterally CV: Regular, no murmurs Extremities/vascular: --Well perfused. trace to 1+ pretibial edema bilaterally --Radial 2+ bilaterally 2+ femoral pulses bilaterally Popliteal 1+ bilaterally. --Left DP 2+, nonpalpable PT due to ulcer Right DP 2+, 1+ PT --Large varicosities bilaterally, most notable in thighs --Reticular, spider veins bilaterally --Extensive hyperpigmentation, venous stasis changes bilaterally knees to ankles -- Ulcers stressed, foul odor. Images reviewed Psychiatric: Affect appropriate. Alert and oriented. Results & Data ([facility]) Vital Signs (Past 12 Hours) Vital Signs Temp Pulse Pulse Resp BP Pulse Ox O2 Del Method 10/03/22 20:54 98.1 F 83 17 120/74 97 Room Air 10/03/22 19:57 80 18 96 Room Air 10/03/22 15:11 98.1 F 78 18 112/74 94 Room Air 10/03/22 12:00 98.6 F 87 18 99/66 L 97 Room Air PG Care Time/CCT Total # of Minutes Spent Total Time Spent with Patient: Total time spent is greater than 50% in coordination of care (as documented) at patient's floor/unit and/or counseling patient: Coding Level of Care Code INP/OBS CONSULT LVL 4, 60 MIN Diagnoses Venous insufficiency (chronic) (peripheral) I87.2
[2022-10-04 03:15] LABS: Basophils # (auto) 0.04 K/uL (0-0.2); Basophils % (auto) 0.8 %; Eosinophils # (auto) 0.09 K/uL (0-0.50); Eosinophils % (auto) 1.9 %; Hematocrit (blood only) 39.9 % (42.0-52.0); Hemoglobin 13.3 g/dl (14.0-18.0); Immature Granulocytes # (auto) 0.01 K/uL (0.01-0.20); Immature Granulocytes % (auto) 0.2 %; Lymphocytes # (auto) 1.12 K/uL (1.2-3.4); Lymphocytes % (auto) 23.3 %; Mean Corpuscular Hgb Conc 33.3 g/dL (32.0-36.0); Mean Platelet Volume 9.7 fL (9.4-12.4); Monocytes % (auto) 8.3 %; Neutrophils # (auto) 3.14 K/uL (1.40-6.50); Neutrophils % (auto) 65.5 %; Platelet Count 191 K/uL (130-400); RDW Coefficient of Variation 14.3 % (11.5-14.5); RDW Standard Deviation 43.8 fL (36.4-46.3); Red Blood Count 4.75 M/uL (4.70-6.10)
[2022-10-04 03:22] LABS: BUN Creatinine Ratio 23.7 (10-20); Calcium 9.8 mg/dl (8.5-10.1); Creatinine Clr Calc Pharmacy 111.8 ml/min; Est GFR (African American) 112.1 ml/min; Est GFR (Non-African American) 96.7 ml/min; Magnesium 2.3 mg/dl (1.7-2.4); Potassium 3.9 mmol/L (3.5-5.1); Prealbumin 17.3 mg/dl (20-40)
[2022-10-04] MEDS: HEPARIN SODIUM/DEXTROSE 25,000 UNITS/500 ML BAG IV SCH ×2 (03:30→17:36)
[2022-10-04] MEDS: oxyCODONE HCL IR 5 MG TAB (IMMEDIATE RELEASE) PO PRN ×3 (03:31→17:26)
[2022-10-04 04:11] LABS: INR 1.2 (0.9-1.1); Partial Thromboplastin Ratio 2.3; Partial Thromboplastin Time 63.5 Seconds (21.0-31.0)
[2022-10-04] MEDS: ACETAMINOPHEN 500 MG TAB PO SCH ×3 (05:31→21:00)
[2022-10-04] MEDS: CEFEPIME 2,000 MG in SYRINGE 0 ML IV SCH ×3 (05:31→20:07)
[2022-10-04] MEDS: ALBUTEROL 0.083% NEBU SOLN 3 ML VIAL NEB SCH ×2 (07:54→18:59)
--- NOTE | 2022-10-04 07:57 | Electrocardiogram Report ---
Test Reason : Blood Pressure : / mmHG Vent. Rate : 070 BPM Atrial Rate : 070 BPM P-R Int : 170 ms QRS Dur : 096 ms QT Int : 400 ms P-R-T Axes : 062 009 042 degrees QTc Int : 432 ms Normal sinus rhythm Possible Old Inferior infarct (cited on or before 23-OCT-2019) Abnormal ECG When compared with ECG of 23-OCT-2019 18:22, No significant change was found Confirmed by Ahsan Duncan ([id number]) on 10/04/2022 7:57:31 AM Referred By: REFERRED SELF Confirmed By:Ahsan Duncan
[2022-10-04] MEDS: LANTUS PER UNIT CHARGE SQ SCH ×2 (09:28→20:55)
[2022-10-04] MEDS: INSULIN ASPART PER UNIT SC SCH ×4 (09:29→20:55)
[2022-10-04] MEDS: ATORVASTATIN 10 MG TAB PO SCH (09:39)
[2022-10-04] MEDS: busPIRone 15 MG TAB PO SCH ×2 (09:39→20:16)
[2022-10-04] MEDS: FUROSEMIDE 80 MG TAB PO SCH ×2 (09:39→17:25)
[2022-10-04] MEDS: GABAPENTIN 600 MG TAB PO SCH ×2 (09:39→20:18)
[2022-10-04] MEDS: FOLIC ACID 1 MG TAB PO SCH (09:39)
[2022-10-04] MEDS: SPIRONOLACTONE 25 MG TAB PO SCH (09:39)
[2022-10-04] MEDS: MULTIVITAMIN TAB PO SCH (09:39)
[2022-10-04] MEDS: EUCERIN CR 120 GM JAR EXT SCH ×3 (09:40→20:13)
[2022-10-04] MEDS: PANTOprazole 40 MG TAB PO SCH ×2 (09:40→20:19)
[2022-10-04] MEDS: NICOTINE 21 MG/24 HR TDSY TD SCH (09:41)
[2022-10-04] MEDS: MONTELUKAST SODIUM 10 MG TABLET PO SCH (09:41)
[2022-10-04] MEDS: AMMONIUM LACTATE 12% LOTION 225 GM BTL EXT SCH ×2 (09:42→20:12)
[2022-10-04] MEDS: COLLAGENASE OINT 30 GM TUBE EXT SCH (09:42)
[2022-10-04] MEDS: diphenhydrAMINE Capsule 25 MG CAP PO PRN ×2 (12:39→20:55)
[2022-10-04] MEDS: DAPTOmycin 400 MG in SYRINGE 0 ML IV SCH (12:44)
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
[2022-10-04] MEDS ORDERED: WARFARIN SOD 10 MG TAB PO SCH (16:00)
[2022-10-04] MEDS: WARFARIN SOD 10 MG TAB PO SCH (17:39)
[2022-10-04] MEDS: FLUoxetine HCL 20 MG CAP PO SCH (20:17)
[2022-10-04] MEDS: FLUTICASONE/VILANTEROL 200/25MCG 14 PUFFS/INHALER INH SCH (20:18)
[2022-10-04] MEDS: MELATONIN 3 MG TAB PO PRN (22:06)
[2022-10-05] MEDS: oxyCODONE HCL IR 5 MG TAB (IMMEDIATE RELEASE) PO PRN ×4 (03:43→20:23)
[2022-10-05] MEDS: CEFEPIME 2,000 MG in SYRINGE 0 ML IV SCH ×3 (03:44→20:20)
[2022-10-05] MEDS: ACETAMINOPHEN 500 MG TAB PO SCH ×3 (05:01→22:04)
[2022-10-05] MEDS: HEPARIN SODIUM/DEXTROSE 25,000 UNITS/500 ML BAG IV SCH (05:34)
[2022-10-05] MEDS: ALBUTEROL 0.083% NEBU SOLN 3 ML VIAL NEB SCH ×2 (07:04→19:19)
[2022-10-05] MEDS: INSULIN ASPART PER UNIT SC SCH ×4 (08:38→21:39)
[2022-10-05 08:40] LABS: BUN Creatinine Ratio 23.7 (10-20); Calcium 10.6 mg/dl (8.5-10.1); Creatinine Clr Calc Pharmacy 107.2 ml/min; Est GFR (African American) 106.6 ml/min; Est GFR (Non-African American) 91.9 ml/min; Magnesium 2.5 mg/dl (1.7-2.4); Phosphorus 3.2 mg/dl (2.5-4.9); Potassium 4.3 mmol/L (3.5-5.1)
[2022-10-05] MEDS: LANTUS PER UNIT CHARGE SQ SCH ×2 (08:47→21:39)
[2022-10-05] MEDS: AMMONIUM LACTATE 12% LOTION 225 GM BTL EXT SCH ×2 (08:48→20:13)
[2022-10-05] MEDS: COLLAGENASE OINT 30 GM TUBE EXT SCH (08:48)
[2022-10-05] MEDS: EUCERIN CR 120 GM JAR EXT SCH ×3 (08:49→20:12)
[2022-10-05] MEDS: FOLIC ACID 1 MG TAB PO SCH (08:50)
[2022-10-05] MEDS: FUROSEMIDE 80 MG TAB PO SCH ×2 (08:50→18:04)
[2022-10-05] MEDS: MULTIVITAMIN TAB PO SCH (08:50)
[2022-10-05] MEDS: SPIRONOLACTONE 25 MG TAB PO SCH (08:50)
[2022-10-05] MEDS: busPIRone 15 MG TAB PO SCH ×2 (08:50→20:11)
[2022-10-05] MEDS: MONTELUKAST SODIUM 10 MG TABLET PO SCH (08:50)
[2022-10-05] MEDS: GABAPENTIN 600 MG TAB PO SCH ×2 (08:50→20:11)
[2022-10-05] MEDS: PANTOprazole 40 MG TAB PO SCH ×2 (08:50→20:11)
[2022-10-05] MEDS: NICOTINE 21 MG/24 HR TDSY TD SCH (08:51)
[2022-10-05] MEDS: ATORVASTATIN 10 MG TAB PO SCH (08:51)
[2022-10-05 09:04] LABS: INR 1.8 (0.9-1.1); Partial Thromboplastin Ratio 2.9; Prothrombin Time 18.2 Seconds (9.0-12.0)
[2022-10-05 09:52] LABS: Partial Thromboplastin Time 79.9 Seconds (21.0-31.0)
[2022-10-05] MEDS: MoRPHine SULFATE 2 MG/ML CARP IV PRN (10:09)
[2022-10-05] MEDS: APIXABAN 5 MG TABLET PO SCH ×2 (11:48→20:11)
[2022-10-05] MEDS: DAPTOmycin 400 MG in SYRINGE 0 ML IV SCH (11:51)
[2022-10-05] MEDS: diphenhydrAMINE Capsule 25 MG CAP PO PRN (11:51)
[2022-10-05] MEDS: POLYETHYLENE (MIRALAX) 17 GM PACK PO PRN (11:56)
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
[2022-10-05] MEDS: FLUTICASONE/VILANTEROL 200/25MCG 14 PUFFS/INHALER INH SCH (20:11)
[2022-10-05] MEDS: FLUoxetine HCL 20 MG CAP PO SCH (20:11)
[2022-10-05] MEDS: MELATONIN 3 MG TAB PO PRN (20:17)
[2022-10-06] MEDS: CEFEPIME 2,000 MG in SYRINGE 0 ML IV SCH (04:57)
[2022-10-06] MEDS: ACETAMINOPHEN 500 MG TAB PO SCH ×3 (05:58→22:16)
[2022-10-06] MEDS: oxyCODONE HCL IR 5 MG TAB (IMMEDIATE RELEASE) PO PRN ×4 (07:25→22:12)
[2022-10-06] MEDS: ALBUTEROL 0.083% NEBU SOLN 3 ML VIAL NEB SCH ×2 (07:37→19:38)
[2022-10-06] MEDS: HEPARIN 100 UNIT/ML 5ML FLUSH FLUSH PRN ×3 (08:32→12:05)
[2022-10-06 08:59] LABS: Basophils # (auto) 0.03 K/uL (0-0.2); Basophils % (auto) 0.5 %; Eosinophils # (auto) 0.07 K/uL (0-0.50); Eosinophils % (auto) 1.3 %; Hematocrit (blood only) 40.6 % (42.0-52.0); Hemoglobin 13.4 g/dl (14.0-18.0); Immature Granulocytes # (auto) 0.03 K/uL (0.01-0.20); Immature Granulocytes % (auto) 0.5 %; Lymphocytes # (auto) 0.91 K/uL (1.2-3.4); Lymphocytes % (auto) 16.5 %; Mean Corpuscular Hemoglobin 27.9 pg (25.0-34.0); Mean Corpuscular Volume 84.6 fL (80.0-100.0); Mean Platelet Volume 9.8 fL (9.4-12.4); Monocytes # (auto) 0.39 K/uL (0.11-0.59); Monocytes % (auto) 7.1 %; Neutrophils # (auto) 4.09 K/uL (1.40-6.50); Neutrophils % (auto) 74.1 %; Platelet Count 193 K/uL (130-400); RDW Coefficient of Variation 14.6 % (11.5-14.5); RDW Standard Deviation 44.9 fL (36.4-46.3); White Blood Count 5.52 K/ul (4.8-10.8)
[2022-10-06] MEDS: MoRPHine SULFATE 2 MG/ML CARP IV PRN (08:59)
[2022-10-06] MEDS: APIXABAN 5 MG TABLET PO SCH ×2 (09:08→22:17)
[2022-10-06] MEDS: SPIRONOLACTONE 25 MG TAB PO SCH (09:09)
[2022-10-06] MEDS: GABAPENTIN 600 MG TAB PO SCH ×2 (09:09→22:18)
[2022-10-06] MEDS: ATORVASTATIN 10 MG TAB PO SCH (09:09)
[2022-10-06] MEDS: FUROSEMIDE 80 MG TAB PO SCH ×2 (09:09→17:40)
[2022-10-06] MEDS: MULTIVITAMIN TAB PO SCH (09:09)
[2022-10-06] MEDS: PANTOprazole 40 MG TAB PO SCH ×2 (09:09→22:18)
[2022-10-06] MEDS: FOLIC ACID 1 MG TAB PO SCH (09:09)
[2022-10-06] MEDS: MONTELUKAST SODIUM 10 MG TABLET PO SCH (09:09)
[2022-10-06] MEDS: busPIRone 15 MG TAB PO SCH ×2 (09:09→22:17)
[2022-10-06] MEDS: EUCERIN CR 120 GM JAR EXT SCH ×3 (09:10→22:14)
[2022-10-06] MEDS: NICOTINE 21 MG/24 HR TDSY TD SCH (09:13)
--- NOTE | 2022-10-06 09:17 | Surgery Progress Note ---
Date of Service October 06, 2022 Assessment & Plan (1) Open wound of both lower extremities with complication: (2) Venous stasis ulcer: Plan: Legs wounds are improving with Santyl. Continue current wound care, medical management. NO surgical intervention necessary at this time. Admission and Anticipated Discharge Date Admission Date: October 02, 2022 Terra Caballero is being seen in follow-up of bilateral lower extremity venous ulcers. Currently dressing open wounds wiht Santyl for enzymatic debridement, applying lac-hydrin to legs. Physical Exam Physical Exam: patient seen today with wound care nurses. Kerliz gauze removed. foul odor present, but improved from the odor a few days ago. bilateral lower extremities with chronic stasis dermatitis, thick desquamated skin from mid tibia to ankle. ?changes to plantar aspect of the foot consistent with lymphedema varus deformity left ankle ulceration of left medial ankle about 3 cm, dessicated but with granulation, surrounding callus right medial ankle with ulceration about 2 cm wound beds have less slough and fibrin, healthy granulation tissue present at wound bases Results & Data ([facility]) Vital Signs (Past 12 Hours) Vital Signs Temp Pulse Pulse Resp BP Pulse Ox O2 Del Method 10/06/22 07:37 70 16 98 Room Air 10/06/22 07:27 36.5 C 72 18 119/78 95 Room Air 10/05/22 22:21 36.9 C 88 18 125/81 95 Room Air PG Care Time/CCT Total # of Minutes Spent Total Time Spent with Patient: Total time spent is greater than 50% in coordination of care (as documented) at patient's floor/unit and/or counseling patient: Coding Level of Care Code 04557 SUB INP/OBS CARE 09/21MIN Diagnoses Open wound of both lower extremities with complication S81.801A; S81.802A Venous stasis ulcer I87.2; L97.821 Laterality: left Non-pressure ulcer stage: limited to breakdown of skin Varicose vein presence: without varicose veins Venous stasis ulcer site: other part of lower leg (1) Venous stasis ulcer Laterality: left Non-pressure ulcer stage: limited to breakdown of skin Varicose vein presence: without varicose veins Venous stasis ulcer site: other part of lower leg Qualified Code(s): I87.2 - Venous insufficiency (chronic) (peripheral); L97.821 - Non-pressure chronic ulcer of other part of left lower leg limited to breakdown of skin
[2022-10-06] MEDS: INSULIN ASPART PER UNIT SC SCH ×4 (09:25→22:11)
[2022-10-06] MEDS: COLLAGENASE OINT 30 GM TUBE EXT SCH (10:41)
[2022-10-06] MEDS: AMMONIUM LACTATE 12% LOTION 225 GM BTL EXT SCH ×2 (10:41→22:13)
[2022-10-06] MEDS: LANTUS PER UNIT CHARGE SQ SCH ×2 (10:48→22:12)
[2022-10-06] MEDS: POLYETHYLENE (MIRALAX) 17 GM PACK PO PRN (10:52)
[2022-10-06] MEDS: DAPTOmycin 400 MG in SYRINGE 0 ML IV SCH (12:05)
[2022-10-06 12:18] LABS: INR 1.5 (0.9-1.1); Partial Thromboplastin Ratio 1.3; Prothrombin Time 15.3 Seconds (9.0-12.0)
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
[2022-10-06] MEDS: MELATONIN 3 MG TAB PO PRN (22:12)
[2022-10-06] MEDS: diphenhydrAMINE Capsule 25 MG CAP PO PRN (22:12)
[2022-10-06] MEDS: FLUTICASONE/VILANTEROL 200/25MCG 14 PUFFS/INHALER INH SCH (22:14)
[2022-10-06] MEDS: FLUoxetine HCL 20 MG CAP PO SCH (22:16)
[2022-10-07] MEDS: ACETAMINOPHEN 500 MG TAB PO SCH ×4 (06:22→22:09)
[2022-10-07] MEDS: ALBUTEROL 0.083% NEBU SOLN 3 ML VIAL NEB SCH ×2 (07:04→19:58)
[2022-10-07] MEDS: MoRPHine SULFATE 2 MG/ML CARP IV PRN ×2 (08:05→21:18)
[2022-10-07] MEDS: INSULIN ASPART PER UNIT SC SCH ×4 (09:17→21:20)
[2022-10-07] MEDS: LANTUS PER UNIT CHARGE SQ SCH ×2 (09:18→21:20)
[2022-10-07] MEDS: MULTIVITAMIN TAB PO SCH (09:21)
[2022-10-07] MEDS: APIXABAN 5 MG TABLET PO SCH ×2 (09:21→21:18)
[2022-10-07] MEDS: GABAPENTIN 600 MG TAB PO SCH ×2 (09:21→21:19)
[2022-10-07] MEDS: busPIRone 15 MG TAB PO SCH ×2 (09:21→21:19)
[2022-10-07] MEDS: oxyCODONE HCL IR 5 MG TAB (IMMEDIATE RELEASE) PO PRN ×2 (09:21→14:29)
[2022-10-07] MEDS: PANTOprazole 40 MG TAB PO SCH ×2 (09:22→21:19)
[2022-10-07] MEDS: FUROSEMIDE 80 MG TAB PO SCH ×2 (09:22→16:12)
[2022-10-07] MEDS: ATORVASTATIN 10 MG TAB PO SCH (09:22)
[2022-10-07] MEDS: SPIRONOLACTONE 25 MG TAB PO SCH (09:22)
[2022-10-07] MEDS: NICOTINE 21 MG/24 HR TDSY TD SCH (09:22)
[2022-10-07] MEDS: FOLIC ACID 1 MG TAB PO SCH (09:22)
[2022-10-07] MEDS: MONTELUKAST SODIUM 10 MG TABLET PO SCH (09:22)
[2022-10-07] MEDS: AMMONIUM LACTATE 12% LOTION 225 GM BTL EXT SCH ×2 (09:23→21:24)
[2022-10-07] MEDS: EUCERIN CR 120 GM JAR EXT SCH ×3 (09:23→21:25)
[2022-10-07] MEDS: COLLAGENASE OINT 30 GM TUBE EXT SCH ×2 (09:23→21:23)
[2022-10-07 10:01] LABS: INR 1.1 (0.9-1.1); Partial Thromboplastin Ratio 1.1; Partial Thromboplastin Time 31.5 Seconds (21.0-31.0); Prothrombin Time 12.1 Seconds (9.0-12.0)
[2022-10-07] MEDS: POLYETHYLENE (MIRALAX) 17 GM PACK PO PRN (11:26)
[2022-10-07] MEDS: DAPTOmycin 400 MG in SYRINGE 0 ML IV SCH (11:26)
[2022-10-07] MEDS: diphenhydrAMINE Capsule 25 MG CAP PO PRN ×2 (14:29→21:18)
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
[2022-10-07] MEDS: HEPARIN 100 UNIT/ML 5ML FLUSH FLUSH PRN (17:15)
[2022-10-07] MEDS: MELATONIN 3 MG TAB PO PRN (21:18)
[2022-10-07] MEDS: FLUoxetine HCL 20 MG CAP PO SCH (21:19)
[2022-10-07] MEDS: FLUTICASONE/VILANTEROL 200/25MCG 14 PUFFS/INHALER INH SCH (21:25)
[2022-10-08] MEDS: ALBUTEROL 0.083% NEBU SOLN 3 ML VIAL NEB SCH (07:59)
[2022-10-08 08:57] LABS: Basophils # (auto) 0.04 K/uL (0-0.2); Basophils % (auto) 0.8 %; Eosinophils # (auto) 0.09 K/uL (0-0.50); Eosinophils % (auto) 1.7 %; Hematocrit (blood only) 42.5 % (42.0-52.0); Hemoglobin 13.9 g/dl (14.0-18.0); Immature Granulocytes # (auto) 0.04 K/uL (0.01-0.20); Immature Granulocytes % (auto) 0.8 %; Lymphocytes # (auto) 1.18 K/uL (1.2-3.4); Lymphocytes % (auto) 22.4 %; Mean Corpuscular Hemoglobin 27.6 pg (25.0-34.0); Mean Corpuscular Hgb Conc 32.7 g/dL (32.0-36.0); Mean Corpuscular Volume 84.5 fL (80.0-100.0); Mean Platelet Volume 9.3 fL (9.4-12.4); Monocytes # (auto) 0.31 K/uL (0.11-0.59); Monocytes % (auto) 5.9 %; Neutrophils % (auto) 68.4 %; Platelet Count 188 K/uL (130-400); RDW Coefficient of Variation 14.6 % (11.5-14.5); RDW Standard Deviation 44.5 fL (36.4-46.3); Red Blood Count 5.03 M/uL (4.70-6.10); White Blood Count 5.26 K/ul (4.8-10.8)
[2022-10-08] MEDS: INSULIN ASPART PER UNIT SC SCH ×2 (09:01→13:13)
[2022-10-08] MEDS: FUROSEMIDE 80 MG TAB PO SCH (09:02)
[2022-10-08] MEDS: PANTOprazole 40 MG TAB PO SCH (09:02)
[2022-10-08] MEDS: APIXABAN 5 MG TABLET PO SCH (09:02)
[2022-10-08] MEDS: GABAPENTIN 600 MG TAB PO SCH (09:02)
[2022-10-08] MEDS: busPIRone 15 MG TAB PO SCH (09:02)
[2022-10-08] MEDS: MONTELUKAST SODIUM 10 MG TABLET PO SCH (09:03)
[2022-10-08] MEDS: MULTIVITAMIN TAB PO SCH (09:03)
[2022-10-08] MEDS: NICOTINE 21 MG/24 HR TDSY TD SCH (09:03)
[2022-10-08] MEDS: FOLIC ACID 1 MG TAB PO SCH (09:03)
[2022-10-08] MEDS: SPIRONOLACTONE 25 MG TAB PO SCH (09:03)
[2022-10-08] MEDS: ATORVASTATIN 10 MG TAB PO SCH (09:03)
[2022-10-08] MEDS: LANTUS PER UNIT CHARGE SQ SCH (09:06)
[2022-10-08] MEDS: EUCERIN CR 120 GM JAR EXT SCH (09:08)
[2022-10-08] MEDS: AMMONIUM LACTATE 12% LOTION 225 GM BTL EXT SCH (09:08)
[2022-10-08 09:16] LABS: BUN Creatinine Ratio 26.3 (10-20); Est GFR (African American) 122.4 ml/min; Est GFR (Non-African American) 105.6 ml/min; Potassium 4.2 mmol/L (3.5-5.1)
[2022-10-08] MEDS: oxyCODONE HCL IR 5 MG TAB (IMMEDIATE RELEASE) PO PRN ×2 (09:16→13:20)
[2022-10-08 09:23] LABS: Partial Thromboplastin Ratio 1.1; Prothrombin Time 10.9 Seconds (9.0-12.0)
[2022-10-08] MEDS: MoRPHine SULFATE 2 MG/ML CARP IV PRN (11:41)
[2022-10-08] MEDS: HEPARIN 100 UNIT/ML 5ML FLUSH FLUSH PRN ×2 (11:42→13:17)
[2022-10-08] MEDS: DAPTOmycin 400 MG in SYRINGE 0 ML IV SCH (11:42)
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
== END 2022-10-08 14:35 | disposition home or self-care (01) | DRG 300 ==
LOC: ED 07:34 → SUATTDRO 10:56 → 3W 10:56

== ENCOUNTER 2022-10-29 13:19 | Inpatient (IN) ==
--- NOTE | 2022-10-29 13:28 | Emergency Department Note ---
Impression & Plan Cellulitis of left leg ED Provider Note INFORMANT: Patient ED PROVIDER(S): Steve Bang MD CHIEF COMPLAINT: Left leg infection PLAN: Disposition: admitted Condition: Good Outpatient prescription management: none Referral: none MEDICAL DECISION MAKING: Patient presented emergency room complaining of worsening left leg infection after stopping antibiotics. Patient had a wound culture as well as blood cultures performed. Prior record was reviewed. Discussed with ED pharmacist. Patient was started on IV Rocephin and IV daptomycin. Patient did request analgesia and was given a dose of IV Dilaudid. He also requested Benadryl prior to antibiotics because he notes that the gets itching sometimes. He was given a dose of IV Benadryl. Patient was hydrated. He had a mildly elevated lactate but no other signs of sepsis. I suspect this is more from a perfusion issue given his vascular problems at the patient will need further management in the hospital. [facility] Patient was evaluated in the ER and admitted for further management. After review of the information above and other included data, I feel the patient . Requires further management in the hospital. Discussed with health policy manager. Triage Nursing notes reviewed and agree them. Vital Signs: reviewed and remarkable for no significant abnormalities Prior /Outside records reviewed: Prior hospitalization reviewed regarding IV treatment and discharge medications. Patient found to have MRSA. Discharged on doxycycline. Differential diagnosis: Cellulitis, abscess, MRSA infection, DVT, necrotizing fasciitis, dermatitis, drug eruption, allergic reaction, as well as other pathologies. Diagnostics, as interpreted by me: ECG: none Cardiac Monitoring: Cardiac monitoring ordered by me: The patient was placed on continuous cardiac monitoring and observed. It revealed a normal sinus rhythm at 71 beats per minute without ectopy or evidence of dysrhythmia. Medical decision rules: none Imaging studies: Deferred HPI: The patient is a 47 year old male with type 2 diabetes, advanced venous insufficiency, chronic DVT, type 2 diabetes, on warfarin who presents to the Emergency Room with complaints of left leg infection. This started to worsen last week after stopping doxy and is in the lower [place] area. The patient also notes the following associated symptoms, redness spreading up the leg and leg pain. The patient has found no relieving factors. Current pain is rated as 7/10. Pt denies LOC, headache, fevers, chills, diaphoresis, visual changes, neck pain, chest pain, breathing difficulties, nausea, vomiting, abdominal pain, back pain, melena, hematochezia, urinary symptoms, numbness, weakness, lymphadenopathy, rash, or other complaints. PAST MEDICAL HISTORY: See Below, DM PAST SURGICAL HISTORY: See Below, Mediport SOCIAL HISTORY: See Below, smoker HOME MEDICATIONS: See Below ALLERGIES: See Below VITALS: See Below PHYSICAL EXAMINATION: GENERAL: Awake, alert, uncomfortable-appearing, in no distress HENT: Normocephalic, atraumatic. Oropharynx unremarkable. EYES: Normal conjunctiva. Sclera non-icteric. NECK: Inspection normal. Non-tender. Supple. No nuchal rigidity. FROM. No masses. RESPIRATORY: Clear to auscultation. No wheezes. No rales. Normal respiratory effort. CARDIAC: Normal rate. Normal rhythm. No murmurs. No rubs. Extremities warm and well perfused. Pulses equal. No JVD. GI: Soft, non-distended. No tenderness to palpation. No rebound or guarding. No masses. RECTAL: Deferred. MUSCULOSKELETAL: Atraumatic. Chest examination reveals no tenderness. The back is symmetrical on inspection without obvious abnormality. There is no CVA t enderness to palpation. No joint edema. LOWER EXTREMITIES: Calves are equal size bilaterally. Ulcerations noted bilaterally, worse on the left. 1+ edema. Chronic venous and reddish discoloration, worse on left. Mild redness extending up the inner left thigh. NEURO: Normal sensorium. No sensory or motor deficits noted. SKIN: No rash or jaundice noted. Past Med/Surg History Medical History (Updated 10/29/22 @ 19:03 by Steve Bang MD) Anxiety and depression Asthma USED RESCUE INHALER TODAY Blood clotting disorder ? NAME Cellulitis BILAT LEGS (WRAPS LEGS/DRY CLOTH) CURRENTLY HAS SOME OPEN WOUNDS>GOES TO [facility] Chronic deep vein thrombosis (DVT) 2018 (HOSPITALIZED AT [facility]) Chronic narcotic use Chronic ulcer of lower extremity RT LEG ONLY OPEN WOUND AT THIS TIME Chronic venous stasis dermatitis of both lower extremities Cirrhosis Diabetes mellitus, type 2 GERD (gastroesophageal reflux disease) History of ETOH abuse QUIT 2018 HTN (hypertension) Hyperlipidemia Pulmonary embolism 13 YEARS AGO ? DETAILS Pulmonary nodule CT chest 04/12/18 - 4 mm RUL nodule, f/u 12 months Tobacco abuse Type 2 diabetes mellitus Surgical History History of anesthesia reaction WITH A-PORT INSERTION, WOKE UP IN MIDDLE OF PROCEDURE History of vascular access device APORT IN RT CHEST (IN PLACE) [place] teeth removed Family History Father ETOH abuse Cirrhosis Mother Hypercoagulable state Prothrombin Factor II Mutation, 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, boderline hyperhomocystemia Social History Smoking Status: Current every day smoker Tobacco Type: Cigarettes Cigarettes Per Day: 3; Second Hand Exposure: Yes; Do You Dip or Chew Tobacco: No; Tobacco Cessation Education Requested by Patient: No Hx Alcohol Use: Yes Alcohol type: beer Alcohol Intake Frequency Comment: Pt reports quit drinking end of 07/2018 Hx Substance Use: No Preferred Language: Romansh Communication Ability: Effective Visual Impairment: No Limitations Hearing Ability: Normal Pot Feeder Required: No Beliefs That Will Affect Care: None marital status: Current Living Situation: Significant Other How many Children do You have: 0 Other Information That Helps Us Care for You: No Feels Safe at Home: Yes Safety Concerns: Feels Safe At This Time Assistive Devices: Glasses Allergies Allergies Allergy/AdvReac Type Severity Reaction Status Date / Time peas Allergy Severe Anaphylaxis Verified 10/29/22 15:04 vancomycin Allergy Severe itching Verified 10/29/22 15:04 sulfamethoxazole Allergy Intermediate hives Verified 10/29/22 15:04 trimethoprim Allergy Intermediate hives Verified 10/29/22 15:04 tuna Allergy Severe anaphylaxis Uncoded 10/29/22 15:04 Home Meds Home Medications Medication Instructions Recorded Confirmed albuterol sulfate 90 mcg/actuation 1 puff inhalation Q6H PRN 05/09/18 10/29/22 aerosol inhaler (Ventolin HFA) Shortness Of Breath folic acid 1 mg tablet 1 mg PO QAM 05/09/18 10/29/22 omeprazole 20 mg capsule,delayed 20 mg PO BID 05/09/18 10/29/22 release diphenhydramine HCl 25 mg capsule 25 - 50 mg PO Q6H PRN Itching 10/23/19 10/29/22 (Benadryl) furosemide 80 mg tablet 80 mg PO BID17 10/23/19 10/29/22 atorvastatin 10 mg tablet 10 mg PO QAM 06/05/20 10/29/22 gabapentin 600 mg tablet 600 mg PO TID 06/05/20 10/29/22 multivitamin 1 tab PO QAM 06/05/20 10/29/22 spironolactone 50 mg tablet 50 mg PO BID 06/05/20 10/29/22 buspirone 15 mg tablet 15 mg PO BID 10/02/22 10/29/22 fluoxetine 20 mg capsule 20 mg PO HS 10/02/22 10/29/22 fluticasone 500 mcg-salmeterol 50 1 inh inhalation BID 10/02/22 10/29/22 mcg/dose blistr powdr for inhalation metformin 1,000 mg tablet 1,000 mg PO BID 10/02/22 10/29/22 montelukast 10 mg tablet 10 mg PO DAILY 10/02/22 10/29/22 hydroxyzine HCl 10 mg tablet 10 mg PO Q8H PRN Itching 10/29/22 10/29/22 oxycodone-acetaminophen 5 mg-325 1 tab PO Q8H PRN Pain 10/29/22 10/29/22 mg tablet tiotropium bromide 2.5 2 inh inhalation DAILY 10/29/22 10/29/22 mcg/actuation mist for inhalation (Spiriva Respimat) white petrolatum-mineral oil 1 applic EXT TID PRN Skin 10/29/22 10/29/22 topical cream (Dermacerin topical Irritation cream) Previous Rx's Medication Instructions Recorded apixaban 5 mg tablet (Eliquis) 5 mg PO BID #60 tabs 10/04/22 ammonium lactate 5 % lotion 1 applic EXT BID #226 grams 10/08/22 (Lac-Hydrin Five) Results & Data (ED) Vital Signs Vital Signs - 24 hr 10/29/22 13:22 10/29/22 14:00 Temperature 36.4 C L Temperature Source Temporal Artery Scan Pulse Rate 84 Pulse Rate [Apical] 85 Respiratory Rate 18 14 Respiratory Effort / Characteristics Non-Labored Non-Labored Spontaneous Respiratory Depth Normal Normal Respiratory Pattern Regular Blood Pressure 154/85 H Blood Pressure [Right Arm] 106/73 Blood Pressure Mean 108 Blood Pressure Mean [Right Arm] 84 Blood Pressure Position Sitting Pulse Oximetry 96 95 Oxygen Delivery Method Room Air Room Air Sepsis Recent Fever Within 48 Hours No Sepsis New/Unexplained Change in Mental Status No Sepsis Action Taken by Nursing No Action Required Laboratory Data 10/29/22 14:11 10/29/22 14:11 Lab Results 10/29/22 10/29/22 10/29/22 Range/Units 14:11 14:11 14:11 WBC 5.70 (4.8-10.8) K/ul RBC 4.91 (4.70-6.10) M/uL Hgb 13.8 L (14.0-18.0) g/dl Hct 41.9 L (42.0-52.0) % MCV 85.3 (80.0-100.0) fL MCH 28.1 (25.0-34.0) pg MCHC 32.9 (32.0-36.0) g/dL RDW Std Deviation 47.7 H (36.4-46.3) fL RDW Coeff of Kip 15.2 H (11.5-14.5) % Plt Count 198 (130-400) K/uL MPV 9.9 (9.4-12.4) fL Immature Gran % (Auto) 0.7 % Neut % (Auto) 71.9 % Lymph % (Auto) 18.8 % Bacon % (Auto) 5.6 % Eos % (Auto) 2.1 % Baso % (Auto) 0.9 % Neut # (Auto) 4.10 (1.40-6.50) K/uL Lymph # (Auto) 1.07 L (1.2-3.4) K/uL Bacon # (Auto) 0.32 (0.11-0.59) K/uL Eos # (Auto) 0.12 (0-0.50) K/uL Baso # (Auto) 0.05 (0-0.2) K/uL Immature Gran # (Auto) 0.04 (0.01-0.20) K/uL ESR 72 H (0-15) mm/hr Sodium 137 (136-145) mmol/L Potassium 3.7 (3.5-5.1) mmol/L Chloride 104 (98-107) mmol/L Carbon Dioxide 26 (21-32) mmol/L Anion Gap 7 (3-11) BUN 17 (6-23) mg/dl Creatinine 0.84 (0.6-1.4) mg/dl Est Cr Clr Drug Dosing 125.3 ml/min Est GFR ( Amer) 120.0 ml/min Est GFR (Non-Af Amer) 103.5 ml/min BUN/Creatinine Ratio 20.2 H (10-20) Glucose 87 (70-99(Fasting)) mg/dl Lactate (0.4-2.0) mmol/L Calcium 10.0 (8.5-10.1) mg/dl Total Bilirubin 0.5 (0.2-1.0) mg/dl AST 15 (13-39) U/L ALT 16 (7-52) U/L Alkaline Phosphatase 67 (34-104) U/L C-Reactive Protein 3.13 H (0-0.5) mg/dl Total Protein 9.4 H (6.0-8.3) gm/dl Albumin 5.0 (3.4-5.0) gm/dl Globulin 4.4 H (2.5-4.0) gm/dl Albumin/Globulin Ratio 1.1 (0.9-2) Procalcitonin (0-0.5) ng/ml SARS-CoV-2, RNA, NAAT (NEGATIVE) 10/29/22 10/29/22 10/29/22 Range/Units 14:11 14:11 14:33 WBC (4.8-10.8) K/ul RBC (4.70-6.10) M/uL Hgb (14.0-18.0) g/dl Hct (42.0-52.0) % MCV (80.0-100.0) fL MCH (25.0-34.0) pg MCHC (32.0-36.0) g/dL RDW Std Deviation (36.4-46.3) fL RDW Coeff of Kip (11.5-14.5) % Plt Count (130-400) K/uL MPV (9.4-12.4) fL Immature Gran % (Auto) % Neut % (Auto) % Lymph % (Auto) % Bacon % (Auto) % Eos % (Auto) % Baso % (Auto) % Neut # (Auto) (1.40-6.50) K/uL Lymph # (Auto) (1.2-3.4) K/uL Bacon # (Auto) (0.11-0.59) K/uL Eos # (Auto) (0-0.50) K/uL Baso # (Auto) (0-0.2) K/uL Immature Gran # (Auto) (0.01-0.20) K/uL ESR (0-15) mm/hr Sodium (136-145) mmol/L Potassium (3.5-5.1) mmol/L Chloride (98-107) mmol/L Carbon Dioxide (21-32) mmol/L Anion Gap (3-11) BUN (6-23) mg/dl Creatinine (0.6-1.4) mg/dl Est Cr Clr Drug Dosing ml/min Est GFR ( Amer) ml/min Est GFR (Non-Af Amer) ml/min BUN/Creatinine Ratio (10-20) Glucose (70-99(Fasting)) mg/dl Lactate 2.2 H* (0.4-2.0) mmol/L Calcium (8.5-10.1) mg/dl Total Bilirubin (0.2-1.0) mg/dl AST (13-39) U/L ALT (7-52) U/L Alkaline Phosphatase (34-104) U/L C-Reactive Protein (0-0.5) mg/dl Total Protein (6.0-8.3) gm/dl Albumin (3.4-5.0) gm/dl Globulin (2.5-4.0) gm/dl Albumin/Globulin Ratio (0.9-2) Procalcitonin < 0.05 (0-0.5) ng/ml SARS-CoV-2, RNA, NAAT NEGATIVE (NEGATIVE) Administered Medications Sodium Chloride (Nss 1000ml) 1,000 mls @ 125 mls/hr IV .Q8H STA Stop: 10/29/22 21:34 Last Admin: 10/29/22 15:31 Dose: 125 mls/hr Documented By: CRISTHIAN Insulin Aspart (Insulin Aspart Per Unit) 0 units SC ACHS OTILIA Stop: 11/28/22 16:29 Last Admin: 10/29/22 17:49 Dose: 10 units Documented By: CAW Co-signed By: MADELINE Oxycodone/Acetaminophen (Oxycodone/Acetaminophen 5mg/325mg Tab) 1 tab PO Q8H PRN PRN Reason: Pain Stop: 11/12/22 16:12 Last Admin: 10/29/22 17:49 Dose: 1 tab Documented By: MAYNOR Discontinued Medications Diphenhydramine HCl (Diphenhydramine 50 Mg/Ml Vial) 25 mg IV NOW STA Stop: 10/29/22 15:06 Last Admin: 10/29/22 15:14 Dose: 25 mg Documented By: CRISTHIAN Hydromorphone HCl (Hydromorphone Inj 0.5 Mg/0.5 Ml Syr) 0.5 mg IV NOW STA Stop: 10/29/22 13:38 Last Admin: 10/29/22 14:44 Dose: 0.5 mg Documented By: Ceftriaxone Sodium (Rocephin) 2,000 mg in 70 mls @ 140 mls/hr IV NOW STA Stop: 10/29/22 14:04 Last Infusion: 10/29/22 16:15 Dose: 0 mls/hr Documented By: Admin: 10/29/22 15:18 Dose: 140 mls/hr Documented By: CRISTHIAN Daptomycin 500 mg/ Syringe 10 mls @ 5 mls/min IV NOW STA; Protocol Stop: 10/29/22 13:36 Last Admin: 10/29/22 16:37 Dose: 5 mls/min Documented By: MAYNOR Sodium Chloride (Nss 1000ml) 2,000 mls @ 999 mls/hr IV .Q2H1M ONE Stop: 10/29/22 17:07 Last Admin: 10/29/22 15:32 Dose: Not Given Documented By: CRISTHIAN Discharge Plan Visit Data Chief Complaint: Infection Stated Complaint: INFECTION IN LEG ED Provider: Steve Bang Discharge Problem: Cellulitis of left leg Patient Disposition: Admitted As Inpatient Discharge Instructions Interventions: ED Discharge Assessment Last Done: 10/29/22 15:55
[2022-10-29] MEDS ORDERED: cefTRIAXone SODIUM 2,000 MG/70 ML BAG IV STA (13:35)
[2022-10-29] MEDS ORDERED: DAPTOmycin 500 MG in SYRINGE 0 ML IV STA (13:35)
[2022-10-29] MEDS ORDERED: SODIUM CHLORIDE 0.9% 1000ML 1,000 ML IV STA (13:35)
[2022-10-29] MEDS ORDERED: HYDROmorphone INJ 0.5 MG/0.5 ML SYR IV STA (13:37)
[2022-10-29 14:36] LABS: Basophils # (auto) 0.05 K/uL (0-0.2); Basophils % (auto) 0.9 %; Eosinophils # (auto) 0.12 K/uL (0-0.50); Eosinophils % (auto) 2.1 %; Hematocrit (blood only) 41.9 % (42.0-52.0); Hemoglobin 13.8 g/dl (14.0-18.0); Immature Granulocytes # (auto) 0.04 K/uL (0.01-0.20); Immature Granulocytes % (auto) 0.7 %; Lymphocytes # (auto) 1.07 K/uL (1.2-3.4); Lymphocytes % (auto) 18.8 %; Mean Corpuscular Hemoglobin 28.1 pg (25.0-34.0); Mean Corpuscular Hgb Conc 32.9 g/dL (32.0-36.0); Mean Corpuscular Volume 85.3 fL (80.0-100.0); Mean Platelet Volume 9.9 fL (9.4-12.4); Monocytes # (auto) 0.32 K/uL (0.11-0.59); Monocytes % (auto) 5.6 %; Neutrophils % (auto) 71.9 %; Platelet Count 198 K/uL (130-400); RDW Coefficient of Variation 15.2 % (11.5-14.5); RDW Standard Deviation 47.7 fL (36.4-46.3); Red Blood Count 4.91 M/uL (4.70-6.10)
[2022-10-29 14:43] LABS: Albumin Globulin Ratio 1.1 (0.9-2); BUN Creatinine Ratio 20.2 (10-20); Bilirubin,Total 0.5 mg/dl (0.2-1.0); C Reactive Protein 3.13 mg/dl (0-0.5); Creatinine Clr Calc Pharmacy 125.3 ml/min; Est GFR (Non-African American) 103.5 ml/min; Globulin 4.4 gm/dl (2.5-4.0); Potassium 3.7 mmol/L (3.5-5.1); Total Protein 9.4 gm/dl (6.0-8.3)
[2022-10-29] MEDS ORDERED: diphenhydrAMINE 50 MG/ML VIAL IV STA (15:05)
[2022-10-29] MEDS ORDERED: SODIUM CHLORIDE 0.9% 1000ML 2,000 ML IV ONE (15:07)
[2022-10-29] MEDS ORDERED: GLUCOSE 10 TAB/TUBE PO PRN (16:13)
[2022-10-29] MEDS ORDERED: oxyCODONE/ACETAMINOPHEN 5mg/325mg TAB PO PRN (16:13)
[2022-10-29] MEDS ORDERED: SODIUM CHLORIDE 0.9% 1000ML 1,000 ML IV SCH (16:13)
[2022-10-29] MEDS ORDERED: ACETAMINOPHEN 325 MG TAB PO PRN (16:13)
[2022-10-29] MEDS ORDERED: GLUCAGON FOR INJ 1 MG VIAL SQ PRN (16:13)
[2022-10-29] MEDS ORDERED: CARBOHYDRATES FOR HYPOGLYCEMIA PO PRN (16:13)
[2022-10-29] MEDS ORDERED: GLUCOSE 40% GEL 15 GM TUBE PO PRN (16:13)
[2022-10-29] MEDS ORDERED: DEXTROSE 50% 50 ML SYRINGE IV PRN (16:13)
--- NOTE | 2022-10-29 16:32 | History & Physical Report ---
Date of Service October 29, 2022 Assessment & Plan (1) Open wound of both lower extremities with complication: (2) Venous ulcers of both lower extremities: (3) Venous insufficiency (chronic) (peripheral): Plan: Admit to med/surg Patient presenting from home with reports of left lower extremity wound. Patient with history of severe PVD and recurrent/chronic venous ulcers and wounds of the bilateral lower extremities. Recently admitted to [facility] 10/02 through 10/08 for L LE wound, culture positive for MRSA. Patient discharged on a 2-week course of doxycycline per ID recommendations. Patient was to follow-up with the wound care center unfortunately was lost to follow-up. Patient reports that shortly after doxycycline course was completed, a foul-smelling odor returned to left lower extremity wound. During admission, patient was evaluated by reconstructive surgery --no surgical intervention was recommended. Patient was also evaluated by vascular surgery -- "No significant obstructive disease noted on recent left lower extremity arterial duplex and bilateral toe pressures adequate for healing. Do not feel arterial disease playing a significant role in poor wound healing. Venous reflux ultrasound noteworthy for extensive nonobstructive chronic DVT bilaterally from CFV through popliteal veins. Also with SVT involving bilateral GSV/SSV's. Did have some superficial reflux but the setting of extensive deep system disease feel he would not benefit from superficial vein ablation." Patient also underwent BLE MRIs that were negative for evidence of osteomyelitis. In the ED today, patient is hemodynamically stable, does not appear septic. Initial lactate 2.2 however improved to 1.1 after IVF. S/p IV ceftriaxone and IV daptomycin in the ED, will continue with both given previous culture results Follow wound culture No active drainage noted on exam today, ?? If this is more of chronic findings vs. active infection. Will reconsult ID for input. Wound care consult, consider reconsult to reconstructive surgery. (4) Depression with anxiety: Plan: Stable, continue home meds (5) Chronic deep vein thrombosis (DVT): Plan: Warfarin transition to Eliquis during previous admission (6) COPD (chronic obstructive pulmonary disease): Plan: With active ongoing tobacco abuse Appears stable, no signs of acute exacerbation Continue home inhalers (7) Cirrhosis: Plan: Appears compensated Will resume furosemide and spironolactone from tomorrow given patient received IVF for mildly elevated lactate today. (8) Type 2 diabetes mellitus: Plan: Hgb A1c 6.1 09/2022 Hold metformin and utilize NovoLog per protocol while hospitalized DVT PROPHYLAXIS On Eliquis I spent a total of 75 minutes coordinating, documenting, and providing care for this patient excluding time spent in the performance of separately billed services. This included personally reviewing all current laboratories and imaging studies, medication reconciliation, outpatient chart review, and discussion with specialists. Admission and Anticipated Discharge Date Admission Date: October 29, 2022 History of Present Illness Chief Complaint: Left leg wound Primary Care Provider: Tony Spring MD 47-year-old male with PMH chronic DVT with MTHFR mutation anticoagulated on Eliquis, DM type II, dyslipidemia, COPD, chronic and recurrent venous stasis ulcers, severe PVD, cirrhosis, history of alcohol abuse, current tobacco use, chronic narcotic use, and other problems listed below who presents to the ED for evaluation of worsening left leg wound. History obtained from patient and review of outpatient and prior inpatient records. Patient recently admitted to [facility] 10/02 through 10/08 for L LE wound, culture positive for MRSA. Patient discharged on a 2-week course of doxycycline. Patient was to follow-up with the wound care center unfortunately was lost to follow-up. Patient reports that shortly after doxycycline course was completed, a foul-smelling odor returned to left lower extremity wound. He reports yellow discharge. No fevers or or chil ls. Denies chest pain shortness of breath. No lightheadedness, dizziness, diaphoresis, syncopal events. Denies urinary symptoms. In the ED, patient is hemodynamically stable, patient is afebrile, no leukocytosis. Lactic acid mildly elevated 2.2. Patient was given IV ceftriaxone, IV Dapto, IV Dilaudid, IV Benadryl, IVF. Allergies Allergy/AdvReac Type Severity Reaction Status Date / Time peas Allergy Severe Anaphylaxis Verified 10/29/22 15:04 vancomycin Allergy Severe itching Verified 10/29/22 15:04 sulfamethoxazole Allergy Intermediate hives Verified 10/29/22 15:04 trimethoprim Allergy Intermediate hives Verified 10/29/22 15:04 tuna Allergy Severe anaphylaxis Uncoded 10/29/22 15:04 Home Medications Medication Instructions Recorded Confirmed Type albuterol sulfate 90 mcg/actuation 1 puff inhalation Q6H PRN 05/09/18 10/29/22 History aerosol inhaler (Ventolin HFA) Shortness Of Breath folic acid 1 mg tablet 1 mg PO QAM 05/09/18 10/29/22 History omeprazole 20 mg capsule,delayed 20 mg PO BID 05/09/18 10/29/22 History release diphenhydramine HCl 25 mg capsule 25 - 50 mg PO Q6H PRN Itching 10/23/19 10/29/22 History (Benadryl) furosemide 80 mg tablet 80 mg PO BID17 10/23/19 10/29/22 History atorvastatin 10 mg tablet 10 mg PO QAM 06/05/20 10/29/22 History gabapentin 600 mg tablet 600 mg PO TID 06/05/20 10/29/22 History multivitamin 1 tab PO QAM 06/05/20 10/29/22 History spironolactone 50 mg tablet 50 mg PO BID 06/05/20 10/29/22 History buspirone 15 mg tablet 15 mg PO BID 10/02/22 10/29/22 History fluoxetine 20 mg capsule 20 mg PO HS 10/02/22 10/29/22 History fluticasone 500 mcg-salmeterol 50 1 inh inhalation BID 10/02/22 10/29/22 History mcg/dose blistr powdr for inhalation metformin 1,000 mg tablet 1,000 mg PO BID 10/02/22 10/29/22 History montelukast 10 mg tablet 10 mg PO DAILY 10/02/22 10/29/22 History apixaban 5 mg tablet (Eliquis) 5 mg PO BID #60 tabs 10/04/22 10/29/22 Rx ammonium lactate 5 % lotion 1 applic EXT BID #226 grams 10/08/22 10/29/22 Rx (Lac-Hydrin Five) hydroxyzine HCl 10 mg tablet 10 mg PO Q8H PRN Itching 10/29/22 10/29/22 History oxycodone-acetaminophen 5 mg-325 1 tab PO Q8H PRN Pain 10/29/22 10/29/22 History mg tablet tiotropium bromide 2.5 2 inh inhalation DAILY 10/29/22 10/29/22 History mcg/actuation mist for inhalation (Spiriva Respimat) white petrolatum-mineral oil 1 applic EXT TID PRN Skin 03/04/23 03/04/23 History topical cream (Dermacerin topical Irritation cream) Past Med/Surg History Medical History Anxiety and depression Asthma USED RESCUE INHALER TODAY Blood clotting disorder ? NAME Cellulitis BILAT LEGS (WRAPS LEGS/DRY CLOTH) CURRENTLY HAS SOME OPEN WOUNDS>GOES TO WOUND CLINIC/[facility] Chronic deep vein thrombosis (DVT) 2018 (HOSPITALIZED AT [facility]) Chronic narcotic use Chronic ulcer of lower extremity RT LEG ONLY OPEN WOUND AT THIS TIME Chronic venous stasis dermatitis of both lower extremities Cirrhosis Diabetes mellitus, type 2 GERD (gastroesophageal reflux disease) History of ETOH abuse QUIT 2018 HTN (hypertension) Hyperlipidemia Pulmonary embolism 13 YEARS AGO ? DETAILS Pulmonary nodule CT chest 04/12/18 - 4 mm RUL nodule, f/u 12 months Tobacco abuse Type 2 diabetes mellitus Surgical History History of anesthesia reaction WITH A-PORT INSERTION, WOKE UP IN MIDDLE OF PROCEDURE History of vascular access device APORT IN RT CHEST (IN PLACE) [place] teeth removed Family History Father ETOH abuse Cirrhosis Mother Hypercoagulable state Prothrombin Factor II Mutation, 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, boderline hyperhomocystemia Social History Smoking Status: Current every day smoker Tobacco Type: Cigarettes Cigarettes Per Day: 3; Second Hand Exposure: Yes; Do You Dip or Chew Tobacco: No; Tobacco Cessation Education Requested by Patient: No Hx Alcohol Use: Yes Alcohol type: beer Alcohol Intake Frequency Comment: Pt reports quit drinking end of 07/2018 Hx Substance Use: No Preferred Language: Divehi Communication Ability: Effective Visual Impairment: No Limitations Hearing Ability: Normal Parliamentary Archivist Required: No Beliefs That Will Affect Care: None marital status: Current Living Situation: Significant Other How many Children do You have: 0 Other Information That Helps Us Care for You: No Feels Safe at Home: Yes Safety Concerns: Feels Safe At This Time Assistive Devices: Glasses Review of Systems Review of Systems: ROS per HPI, all other systems reviewed and negative Physical Exam Constitutional: WD/WN, vitals as above Eyes: PERRL, conjunctivae normal, anicteric sclerae ENMT: external ear and nose normal, oropharynx normal Respiratory: normal respiratory effort, lungs clear to auscultation Cardiovascular: Rate/Rhythm: regular rate and regular rhythm Vessels: normal peripheral pulses Extremities: no edema Gastrointestinal (Abdomen): normal bowel sounds, soft, nontender, no hepatosplenomegaly Musculoskeletal: no cyanosis or clubbing, extremities motor strength 5/5 Skin: Severe chronic venous changes noted to BLE, wound noted to left medial ankle with yellow-colored scab. No active drainage present. Foul odor present. Neurologic: PERRL, EOMI, accommodation nl, no face palsy, no dysarthria Psychiatric: A+Ox3, euthymic affect Results & Data Results & Data ([facility]) Vital Signs (Past 12 Hours) Vital Signs Temp Pulse Pulse Pulse Resp BP BP 10/29/22 16:15 36.6 C 71 16 113/72 10/29/22 14:00 85 14 106/73 10/29/22 13:22 36.4 C L 84 18 154/85 H Pulse Ox O2 Del Method 10/29/22 16:15 96 Room Air 10/29/22 14:00 95 Room Air 10/29/22 13:22 96 Room Air Laboratory Results Short CBC 10/29/22 Range/Units 14:11 WBC 5.70 (4.8-10.8) K/ul Hgb 13.8 L (14.0-18.0) g/dl Hct 41.9 L (42.0-52.0) % Plt Count 198 (130-400) K/uL BMP 10/29/22 14:11 Sodium 137 Potassium 3.7 Chloride 104 Carbon Dioxide 26 BUN 17 Creatinine 0.84 Glucose 87 Calcium 10.0 Liver Function 10/29/22 Range/Units 14:11 Total Bilirubin 0.5 (0.2-1.0) mg/dl AST 15 (13-39) U/L ALT 16 (7-52) U/L Alkaline Phosphatase 67 (34-104) U/L Albumin 5.0 (3.4-5.0) gm/dl Code Status & VTE Plan Code Status Patient is a full code as per my discussion with him. VTE Prophylaxis Plan VTE Prophylaxis will be ordered: No Reason for no VTE drug order: Contraindicated Supervising Physician Co-Signing Physician Notes 47-year-old male with PMH of chronic DVT with MTHFR mutation anticoagulated on Eliquis, T2DM, HLD, COPD, chronic and recurrent venous stasis ulcers, severe PVD, cirrhosis, alcohol abuse, current tobacco use with 1 packs a day [reports smoking since age 17], chronic narcotic use presented to the ED 3/4 for evaluation of worsening left leg wound and he states that it was oozing fluid. Patient reports that his left lower extremity started becoming worse right after the completion of his doxycycline therapy which was almost a week ago [employer]. Patient was supposed to follow-up with the wound care clinic but unfortunately was lost to follow-up. Patient denies any fever or chills or cough or chest pain or sore throat or flulike illness. Pt advised to quit smoking; pt states he will think about it. Labs reviewed, procal neg, wbc wnl. Patient was started on daptomycin and Rocephin in the ED, will continue with the same. Follow-up on the admitting we will culture. ID consult and wound care consult. Continue other home medications as able. On examination: GENERAL: Alert and oriented x3. NAD, on RA. HEENT: No pallor, no icterus. Pupils equal, round and reactive to light. Oral mucosa moist. NECK: No JVD, no neck masses. HEART: S1 and S2 heard. Regular rate and rhythm. No murmur, no gallop. RESPIRATORY SYSTEM: Normal AP diameter. No accessory muscle use. No wheezing, no crackles. ABDOMEN: Soft, bowel sounds present, nontender, no distention. CENTRAL NERVOUS SYSTEM: No facial droop. Speech is clear. Obeys simple commands. Moves extremities. EXTREMITIES: BLE chronic skin changes w/ scattered ulcerated wounds w/ dried yellow scabs. Erythema difficult to discern. Some tenderness to LLE on touch. No RLE tenderness. I have seen and examined the patient and have discussed the case with the provider above. I agree with the assessment and plan as stated. (5) Chronic deep vein thrombosis (DVT) Affected thrombotic vein of extremity: unspecified vein of extremity DVT location: lower extremity Laterality: right Qualified Code(s): I82.501 - Chronic embolism and thrombosis of unspecified deep veins of right lower extremity (6) COPD (chronic obstructive pulmonary disease) COPD type: unspecified COPD Qualified Code(s): J44.9 - Chronic obstructive pulmonary disease, unspecified (7) Cirrhosis Ascites presence: unspecified Hepatic cirrhosis type: alcoholic cirrhosis Qualified Code(s): K70.30 - Alcoholic cirrhosis of liver without ascites (8) Type 2 diabetes mellitus Diabetes mellitus extermination supervisor insulin use: without intermediate use
[2022-10-29] MEDS: INSULIN ASPART PER UNIT SC SCH ×2 (17:49→20:42)
[2022-10-29] MEDS: APIXABAN 5 MG TABLET PO SCH (20:42)
[2022-10-29] MEDS: GABAPENTIN 600 MG TAB PO SCH (20:42)
[2022-10-29] MEDS: PANTOprazole 40 MG TAB PO SCH (20:42)
[2022-10-29] MEDS: busPIRone 15 MG TAB PO SCH (20:42)
[2022-10-29] MEDS: FLUoxetine HCL 20 MG CAP PO SCH (20:42)
[2022-10-29] MEDS: oxyCODONE/ACETAMINOPHEN 5mg/325mg TAB PO PRN (23:12)
[2022-10-30 05:59] LABS: Hematocrit (blood only) 38.1 % (42.0-52.0); Hemoglobin 12.2 g/dl (14.0-18.0); Mean Corpuscular Hemoglobin 27.7 pg (25.0-34.0); Mean Corpuscular Volume 86.6 fL (80.0-100.0); Mean Platelet Volume 9.7 fL (9.4-12.4); Platelet Count 167 K/uL (130-400); RDW Coefficient of Variation 15.2 % (11.5-14.5); RDW Standard Deviation 48.6 fL (36.4-46.3); White Blood Count 3.85 K/ul (4.8-10.8)
[2022-10-30 06:18] LABS: BUN Creatinine Ratio 20.5 (10-20); Calcium 8.9 mg/dl (8.5-10.1); Creatinine Clr Calc Pharmacy 126.8 ml/min; Est GFR (African American) 120.6 ml/min; Potassium 3.9 mmol/L (3.5-5.1)
[2022-10-30] MEDS: INSULIN ASPART PER UNIT SC SCH ×4 (08:41→22:13)
[2022-10-30] MEDS: PANTOprazole 40 MG TAB PO SCH ×2 (08:41→22:09)
[2022-10-30] MEDS: APIXABAN 5 MG TABLET PO SCH ×2 (08:41→22:09)
[2022-10-30] MEDS: oxyCODONE/ACETAMINOPHEN 5mg/325mg TAB PO PRN ×2 (08:41→17:43)
[2022-10-30] MEDS: GABAPENTIN 600 MG TAB PO SCH ×3 (08:41→22:10)
[2022-10-30] MEDS: ATORVASTATIN 10 MG TAB PO SCH (08:42)
[2022-10-30] MEDS: busPIRone 15 MG TAB PO SCH ×2 (08:42→22:09)
[2022-10-30] MEDS: FOLIC ACID 1 MG TAB PO SCH (08:42)
[2022-10-30] MEDS: MONTELUKAST SODIUM 10 MG TABLET PO SCH (08:42)
[2022-10-30] MEDS: FUROSEMIDE 80 MG TAB PO SCH ×2 (08:42→16:05)
[2022-10-30] MEDS: FLUTICASONE/VILANTEROL 200/25MCG 14 PUFFS/INHALER INH SCH (08:42)
[2022-10-30] MEDS: UMECLIDINIUM BROMIDE 62.5MCG/BLISTER 7 PUFFS/INHALER INH SCH (08:43)
[2022-10-30] MEDS: SPIRONOLACTONE 25 MG TAB PO SCH ×2 (08:43→16:05)
[2022-10-30] MEDS: MULTIVITAMIN TAB PO SCH (08:43)
[2022-10-30] MEDS ORDERED: AMMONIUM LACTATE 12% LOTION 225 GM BTL EXT PRN (13:55)
--- NOTE | 2022-10-30 15:15 | Hospitalist Progress Note ---
Date of Service October 30, 2022 Assessment & Plan (1) Open wound of both lower extremities with complication: (2) Venous ulcers of both lower extremities: (3) Venous insufficiency (chronic) (peripheral): Plan: per admitting service notes with addendum: dmit to med/surg Patient presenting from home with reports of left lower extremity wound. Patient with history of severe PVD and recurrent/chronic venous ulcers and wounds of the bilateral lower extremities. Recently admitted to [facility] 10/02 through 10/08 for L LE wound, culture positive for MRSA. Patient discharged on a 2-week course of doxycycline per ID recommendations. Patient was to follow-up with the wound care center unfortunately was lost to follow-up. Patient reports that shortly after doxycycline course was completed, a foul-smelling odor returned to left lower extremity wound. During admission, patient was evaluated by reconstructive surgery --no surgical intervention was recommended. Patient was also evaluated by vascular surgery -- "No significant obstructive disease noted on recent left lower extremity arterial duplex and bilateral toe pressures adequate for healing. Do not feel arterial disease playing a significant role in poor wound healing. Venous reflux ultrasound noteworthy for extensive nonobstructive chronic DVT bilaterally from CFV through popliteal veins. Also with SVT involving bilateral GSV/SSV's. Did have some superficial reflux but the setting of extensive deep system disease feel he would not benefit from superficial vein ablation." Patient also underwent BLE MRIs that were negative for evidence of osteomyelitis. In the ED today, patient is hemodynamically stable, does not appear septic. Initial lactate 2.2 however improved to 1.1 after IVF. S/p IV ceftriaxone and IV daptomycin in the ED, will continue with both given previous culture results Follow wound culture No active drainage noted on exam today, ?? If this is more of chronic findings vs. active infection. Will reconsult ID for input. Wound care consult, consider reconsult to reconstructive surgery. / wounds healing, leg seems to be overall improved compared to last admission wound culture: pending blood cultures: pending ID consulted continue with Daptomycin + Ceftri IV continue with BID dressing changes- follow last month's DC instructions from Wound Care SVC PRN Morphine IV 3 mg BID for dressing changes (4) Depression with anxiety: Plan: Stable, continue home meds (5) Chronic deep vein thrombosis (DVT): Plan: Warfarin transition to Eliquis during previous admission (6) COPD (chronic obstructive pulmonary disease): Plan: With active ongoing tobacco abuse Appears stable, no signs of acute exacerbation Continue home inhalers no exacerbation noted (7) Cirrhosis: Plan: Appears compensated Will resume furosemide and spironolactone (8) Type 2 diabetes mellitus: Plan: Hgb A1c 6.1 09/2022 Hold metformin and utilize NovoLog per protocol while hospitalized patient requesting to increase caloric limit- 3,000/day ordered DVT PROPHYLAXIS On Eliquis Disposition pending Admission and Anticipated Discharge Date Admission Date: October 30, 2022 Subjective ff up for leg wound BL infection, etc seen resting in bed, comfortable still has some pain on BL legs no fever/chills no chest pain, dyspnea, palpitations, dizziness no other symptoms Review of Systems Review of Systems: all noted and negative except for above Physical Exam Physical Exam: General- oriented x 3, not in distress, speaks in sentences with no effort or accessory muscle use Eyes- anicteric Neck- no JVD Lungs- clear BS bilaterally, no rales/wheezes Heart- normal rate, regular rhythm; no murmurs Abdomen- normal bowel sounds, nondistended, soft, nontender Extremities- R LE: mild edema, mild erythema, scabbing open wounds noted, no discharge/bleeding L LE: no edema, very mild erythema, scabbind open wound, no d/c, no bleeding Neuro- alert, oriented x 3; no gross focal neurologic deficits Skin- warm & dry Results & Data Results & Data ([facility]) Vital Signs (Past 12 Hours) Vital Signs Temp Pulse Resp BP Pulse Ox O2 Del Method 10/30/22 14:17 36.7 C 63 18 114/74 95 Room Air 10/30/22 07:40 Room Air 10/30/22 07:34 36.6 C 68 18 119/75 96 Room Air all noted and reviewed including below (5) Chronic deep vein thrombosis (DVT) Affected thrombotic vein of extremity: unspecified vein of extremity DVT location: lower extremity Laterality: right Qualified Code(s): I82.501 - Chronic embolism and thrombosis of unspecified deep veins of right lower extremity (6) COPD (chronic obstructive pulmonary disease) COPD type: unspecified COPD Qualified Code(s): J44.9 - Chronic obstructive pulmonary disease, unspecified (7) Cirrhosis Hepatic cirrhosis type: alcoholic cirrhosis Ascites presence: unspecified Qualified Code(s): K70.30 - Alcoholic cirrhosis of liver without ascites (8) Type 2 diabetes mellitus Diabetes mellitus longterm insulin use: without rat exterminator use
[2022-10-30] MEDS: MoRPHine SULFATE 4 MG/ML 1 ML CARP\\VIAL IV PRN (15:43)
[2022-10-30] MEDS: cefTRIAXone SODIUM 2,000 MG in DEXTROSE 5% 50 ML IV SCH (16:04)
[2022-10-30] MEDS: DAPTOmycin 350 MG in SYRINGE 0 ML IV SCH (17:28)
[2022-10-30] MEDS: HEPARIN 100 UNIT/ML 5ML FLUSH FLUSH PRN (17:44)
[2022-10-30] MEDS: FLUoxetine HCL 20 MG CAP PO SCH (22:09)
[2022-10-31] MEDS: oxyCODONE/ACETAMINOPHEN 5mg/325mg TAB PO PRN ×3 (03:22→19:46)
[2022-10-31] MEDS: HEPARIN 100 UNIT/ML 5ML FLUSH FLUSH PRN ×3 (08:09→17:34)
[2022-10-31 08:42] LABS: Creatinine Clr Calc Pharmacy 134.9 ml/min; Est GFR (African American) 123.7 ml/min; Est GFR (Non-African American) 106.7 ml/min
[2022-10-31] MEDS: INSULIN ASPART PER UNIT SC SCH ×4 (08:50→20:52)
[2022-10-31] MEDS: APIXABAN 5 MG TABLET PO SCH ×2 (08:51→21:03)
[2022-10-31] MEDS: GABAPENTIN 600 MG TAB PO SCH ×3 (08:51→21:03)
[2022-10-31] MEDS: FOLIC ACID 1 MG TAB PO SCH (08:51)
[2022-10-31] MEDS: ATORVASTATIN 10 MG TAB PO SCH (08:51)
[2022-10-31] MEDS: busPIRone 15 MG TAB PO SCH ×2 (08:51→21:03)
[2022-10-31] MEDS: FLUTICASONE/VILANTEROL 200/25MCG 14 PUFFS/INHALER INH SCH (08:52)
[2022-10-31] MEDS: MULTIVITAMIN TAB PO SCH (08:52)
[2022-10-31] MEDS: FUROSEMIDE 80 MG TAB PO SCH ×2 (08:52→16:44)
[2022-10-31] MEDS: PANTOprazole 40 MG TAB PO SCH ×2 (08:52→21:03)
[2022-10-31] MEDS: MONTELUKAST SODIUM 10 MG TABLET PO SCH (08:52)
[2022-10-31] MEDS: SPIRONOLACTONE 25 MG TAB PO SCH ×2 (08:52→16:44)
[2022-10-31] MEDS: UMECLIDINIUM BROMIDE 62.5MCG/BLISTER 7 PUFFS/INHALER INH SCH (08:52)
[2022-10-31] MEDS: MoRPHine SULFATE 4 MG/ML 1 ML CARP\\VIAL IV PRN ×2 (11:21→16:42)
[2022-10-31] MEDS: AMMONIUM LACTATE 12% LOTION 225 GM BTL EXT SCH (15:43)
[2022-10-31] MEDS: COLLAGENASE OINT 30 GM TUBE EXT SCH (16:42)
[2022-10-31] MEDS: cefTRIAXone SODIUM 2,000 MG in DEXTROSE 5% 50 ML IV SCH (16:43)
[2022-10-31] MEDS: DAPTOmycin 350 MG in SYRINGE 0 ML IV SCH (16:43)
--- NOTE | 2022-10-31 16:47 | Hospitalist Progress Note ---
Date of Service October 31, 2022 Assessment & Plan (1) Open wound of both lower extremities with complication: (2) Venous ulcers of both lower extremities: (3) Venous insufficiency (chronic) (peripheral): Plan: per admitting service notes with addendum: dmit to med/surg Patient presenting from home with reports of left lower extremity wound. Patient with history of severe PVD and recurrent/chronic venous ulcers and wounds of the bilateral lower extremities. Recently admitted to [facility] 10/02 through 10/08 for L LE wound, culture positive for MRSA. Patient discharged on a 2-week course of doxycycline per ID recommendations. Patient was to follow-up with the wound care center unfortunately was lost to follow-up. Patient reports that shortly after doxycycline course was completed, a foul-smelling odor returned to left lower extremity wound. During admission, patient was evaluated by reconstructive surgery --no surgical intervention was recommended. Patient was also evaluated by vascular surgery -- "No significant obstructive disease noted on recent left lower extremity arterial duplex and bilateral toe pressures adequate for healing. Do not feel arterial disease playing a significant role in poor wound healing. Venous reflux ultrasound noteworthy for extensive nonobstructive chronic DVT bilaterally from CFV through popliteal veins. Also with SVT involving bilateral GSV/SSV's. Did have some superficial reflux but the setting of extensive deep system disease feel he would not benefit from superficial vein ablation." Patient also underwent BLE MRIs that were negative for evidence of osteomyelitis. In the ED today, patient is hemodynamically stable, does not appear septic. Initial lactate 2.2 however improved to 1.1 after IVF. S/p IV ceftriaxone and IV daptomycin in the ED, will continue with both given previous culture results Follow wound culture No active drainage noted on exam today, ?? If this is more of chronic findings vs. active infection. Will reconsult ID for input. Wound care consult, consider reconsult to reconstructive surgery. / wounds healing, leg seems to be overall improved compared to last admission wound culture: pending blood cultures: pending ID consulted 10/31 Pain improving ID consult pending continue with Daptomycin + Ceftri IV day #3 continue with BID dressing changes- follow last month's DC instructions from Wound Care [facility] care service recommending Xeroform instead of Adaptic PRN Morphine IV 3 mg BID for dressing changes (4) Depression with anxiety: Plan: Stable, continue home meds (5) Chronic deep vein thrombosis (DVT): Plan: Warfarin transition to [facility] during previous admission (6) COPD (chronic obstructive pulmonary disease): Plan: With active ongoing tobacco abuse Appears stable, no signs of acute exacerbation Continue home inhalers no exacerbation noted (7) Cirrhosis: Plan: Appears compensated furosemide and spironolactone (8) Type 2 diabetes mellitus: Plan: Hgb A1c 6.1 09/2022 Patient requesting regular diet Resume usual metformin 1000 mg twice daily Insulin sliding scale Monitor BSG's DVT PROPHYLAXIS On Eliquis Disposition pending plan of care discussed with patient in detail and at length all questions answered he is understanding, agreeable, comfortable with the plan of care Admission and Anticipated Discharge Date Admission Date: October 30, 2022 Subjective Follow-up for bilateral extremity cellulitis/wounds, etc. Seen resting in bed, comfortable, not in distress In good spirits States bilateral lower leg pain seems to be improving No other new symptoms Requesting regular diet Review of Systems Review of Systems: all noted and negative except for above Physical Exam Physical Exam: General- oriented x 3, not in distress, speaks in sentences with no effort or accessory muscle use Eyes- anicteric Neck- no JVD Lungs- clear BS BL Heart- normal rate, regular rhythm; no murmurs Abdomen- normal bowel sounds, nondistended, soft, nontender Extremities-bilateral lower extremity: Dressings in place, no bleeding or discharge Mild edema noted No erythema, tenderness Neuro- alert, oriented x 3; no gross focal neurologic deficits Skin- warm & dry Results & Data Results & Data ([facility]) Vital Signs (Past 12 Hours) Vital Signs Temp Pulse Resp BP Pulse Ox O2 Del Method 10/31/22 14:08 36.2 C L 69 18 136/78 95 Room Air 10/31/22 07:26 36.6 C 64 16 116/71 95 Room Air all noted and reviewed including below (5) Chronic deep vein thrombosis (DVT) Affected thrombotic vein of extremity: unspecified vein of extremity DVT location: lower extremity Laterality: right Qualified Code(s): I82.501 - Chronic embolism and thrombosis of unspecified deep veins of right lower extremity (6) COPD (chronic obstructive pulmonary disease) COPD type: unspecified COPD Qualified Code(s): J44.9 - Chronic obstructive pulmonary disease, unspecified (7) Cirrhosis Ascites presence: unspecified Hepatic cirrhosis type: alcoholic cirrhosis Qualified Code(s): K70.30 - Alcoholic cirrhosis of liver without ascites (8) Type 2 diabetes mellitus Diabetes mellitus senior care insulin use: without terminal carman use
[2022-10-31] MEDS: FLUoxetine HCL 20 MG CAP PO SCH (21:03)
[2022-10-31] MEDS: metFORMIN HCL 500 MG TAB PO SCH (21:03)
[2022-11-01] MEDS: oxyCODONE/ACETAMINOPHEN 5mg/325mg TAB PO PRN ×3 (06:28→20:09)
[2022-11-01] MEDS: HEPARIN 100 UNIT/ML 5ML FLUSH FLUSH PRN ×3 (08:00→17:57)
[2022-11-01] MEDS: INSULIN ASPART PER UNIT SC SCH ×4 (08:15→23:07)
[2022-11-01 08:28] LABS: Creatinine Clr Calc Pharmacy 115.6 ml/min; Est GFR (African American) 115.1 ml/min; Est GFR (Non-African American) 99.3 ml/min
[2022-11-01] MEDS: GABAPENTIN 600 MG TAB PO SCH ×3 (08:39→20:12)
[2022-11-01] MEDS: APIXABAN 5 MG TABLET PO SCH ×2 (08:39→20:11)
[2022-11-01] MEDS: busPIRone 15 MG TAB PO SCH ×2 (08:40→20:12)
[2022-11-01] MEDS: SPIRONOLACTONE 25 MG TAB PO SCH ×2 (08:40→17:58)
[2022-11-01] MEDS: FUROSEMIDE 80 MG TAB PO SCH ×2 (08:40→17:58)
[2022-11-01] MEDS: PANTOprazole 40 MG TAB PO SCH ×2 (08:40→20:12)
[2022-11-01] MEDS: ATORVASTATIN 10 MG TAB PO SCH (08:40)
[2022-11-01] MEDS: MONTELUKAST SODIUM 10 MG TABLET PO SCH (08:40)
[2022-11-01] MEDS: MULTIVITAMIN TAB PO SCH (08:40)
[2022-11-01] MEDS: FOLIC ACID 1 MG TAB PO SCH (08:40)
[2022-11-01] MEDS: UMECLIDINIUM BROMIDE 62.5MCG/BLISTER 7 PUFFS/INHALER INH SCH (08:40)
[2022-11-01] MEDS: metFORMIN HCL 500 MG TAB PO SCH ×2 (08:40→20:10)
[2022-11-01] MEDS: COLLAGENASE OINT 30 GM TUBE EXT SCH (08:41)
[2022-11-01] MEDS: FLUTICASONE/VILANTEROL 200/25MCG 14 PUFFS/INHALER INH SCH (08:41)
[2022-11-01] MEDS: AMMONIUM LACTATE 12% LOTION 225 GM BTL EXT SCH (08:41)
[2022-11-01] MEDS: MoRPHine SULFATE 4 MG/ML 1 ML CARP\\VIAL IV PRN ×2 (09:34→17:56)
--- NOTE | 2022-11-01 11:59 | XRay Report ---
LEFT ANKLE 3 VIEWS CLINICAL HISTORY: Lateral deviation of the left foot. FINDINGS: 3 views of the left ankle are compared to study dated 07/06/2018. The skeletal structures ar e osteopenic. No acute fracture is seen. The ankle mortise is preserved. Degenerative change at the t ibiotalar articulation. There is no joint effusion. Degenerative spurring is seen along the dorsal as pect of the tarsal bones. There is generalized atrophy of the soft tissues. Soft tissue edema is pres ent throughout the ankle, greatest medially. There is atherosclerotic calcification of the regional a rteries. Benign-appearing periostitis is seen along the distal tibial and fibular shafts. This is unc hanged from previous. IMPRESSION: 1. Soft tissue swelling with no acute bony abnormality identified. 2. Osteopenia with chronic and degenerative changes as above. Electronically signed by: Emil Morelos M.D. 11/01/2022 11:58 AM
--- NOTE | 2022-11-01 13:10 | Hospitalist Progress Note ---
Date of Service November 01, 2022 Assessment & Plan (1) Open wound of both lower extremities with complication: (2) Venous ulcers of both lower extremities: (3) Venous insufficiency (chronic) (peripheral): Plan: per admitting service notes with addendum: Pt admitted to med/surg Patient presenting from home with reports of left lower extremity wound. Patient with history of severe PVD and recurrent/chronic venous ulcers and wounds of the bilateral lower extremities. Recently admitted to [facility] 10/02 through 10/08 for L LE wound, culture positive for MRSA. Patient discharged on a 2-week course of doxycycline per ID recommendations. Patient was to follow-up with the wound care center unfortunately was lost to follow-up. Patient reports that shortly after doxycycline course was completed, a foul-smelling odor returned to left lower extremity wound. During admission, patient was evaluated by reconstructive surgery --no surgical intervention was recommended. Patient was also evaluated by vascular surgery -- "No significant obstructive disease noted on recent left lower extremity arterial duplex and bilateral toe pressures adequate for healing. Do not feel arterial disease playing a significant role in poor wound healing. Venous reflux ultrasound noteworthy for extensive nonobstructive chronic DVT bilaterally from CFV through popliteal veins. Also with SVT involving bilateral GSV/SSV's. Did have some superficial reflux but the setting of extensive deep system disease feel he would not benefit from superficial vein ablation." Patient also underwent BLE MRIs that were negative for evidence of osteomyelitis. In the ED today, patient is hemodynamically stable, does not appear septic. Initial lactate 2.2 however improved to 1.1 after IVF. S/p IV ceftriaxone and IV daptomycin in the ED, will continue with both given previous culture results Follow wound culture No active drainage noted on exam today, ?? If this is more of chronic findings vs. active infection. ID consult placed Wound care consult, consider reconsult to reconstructive surgery. ID consult BC: NGTD Wound culture: moderate counts of mixed skin microbiota continue with Daptomycin + Ceftri IV day #4 continue with daily dressing changes- follow last month's DC instructions from [facility] care service recommending Xeroform instead of Adaptic PRN Morphine IV 3 mg BID for dressing changes L Ankle pain Xr: . Soft tissue swelling with no acute bony abnormality identified. 2. Osteopenia with chronic and degenerative changes as above. Ortho consulted pt may benefit from orthotics, will await ortho input (4) Depression with anxiety: Plan: Stable, continue home meds (5) Chronic deep vein thrombosis (DVT): Plan: Warfarin transition to Eliquis during previous admission tolerated eliquis well (6) COPD (chronic obstructive pulmonary disease): Plan: With active ongoing tobacco abuse Appears stable, no signs of acute exacerbation Continue home inhalers no exacerbation noted Pt has chronic b/l wheezing (7) Cirrhosis: Plan: Appears compensated furosemide and spironolactone (8) Type 2 diabetes mellitus: Plan: Hgb A1c 6.1 09/2022 Patient requesting regular diet Resume usual metformin 1000 mg twice daily Insulin sliding scale Monitor BSG's DVT PROPHYLAXIS On Eliquis Disposition pending, awaiting ID eval as well as input from ortho, continue local wound care and antibiotics A total of 35 minutes was spent with greater than 50% of that time personally viewing all current laboratory work and diagnostic imaging studies obtained in the ED. Additionally, I was able to view the patients past medication reconciliation and history with direct visualization in the patients chart. Included in the time above, a portion of that time was spent assessing the patient while discussing and collaborating with specialists, if necessary, and making medical decision making on treatment plan. All of the above was collaborated with Dr. Verduzco. Please see addendum for further details. Admission and Anticipated Discharge Date Admission Date: October 30, 2022 Supervising Physician Co-Signing Physician Notes Attending Addendum: care coordinated with LEAH Sims please refer to her notes for full details, I agree with her notes patient seen and examined, records reviewed by myself as well on exam, patient seen resting in bed, comfortable states lower leg pain is improving gradually no other symptoms ASSESSMENT AND PLAN diagnoses and plan of care as per LEAH Sims's notes Juan Francisco Verduzco MD Subjective Patient was seen and examined in room 316. Follow up LLE wounds. Pain in LLE today. Requesting ortho consult for L jim/foot. States it rolls outward and he is walking, "funny." He states he is to see ortho as OP due to tendon issues. Denies f/c/s, chest pain, sob, n/v/d. Review of Systems Review of Systems: All systems reviewed & are unremarkable except as noted in HPI & below Physical Exam Physical Exam: Gen: WD/WN, NAD, A&O x3 HEENT: Normocephalic, atraumatic, conjunctivae moist, sclerae anicteric, mucous membranes moist. Lung: Clear to Auscultation bilaterally, b/l exp wheezing, no rales/rhonchi Heart: Regular rate, regular rhythm, no murmurs, rubs, or gallops Abdomen: Soft, NT, ND +BS x 4 Extremities:b/l venous stasis changes w/ bilateral wraps in place Skin: Warm, no rash, negative turgor. Results & Data Results & Data ([facility]) Vital Signs (Past 12 Hours) Vital Signs Temp Pulse Resp BP Pulse Ox O2 Del Method 11/01/22 07:21 36.3 C L 71 14 122/79 94 Room Air Laboratory Results [facility] 11/01/22 07:56 Creatinine 0.91 Medications Administered Current Inpatient Medications Acetaminophen (Acetaminophen 325 Mg Tab) 650 mg PO Q4H PRN PRN Reason: pain/fever Stop: 11/28/22 16:12 Apixaban (Apixaban 5 Mg Tablet) 5 mg PO BID OTILIA Stop: 11/28/22 20:59 Last Admin: 11/01/22 08:39 Dose: 5 mg Atorvastatin Calcium (Atorvastatin 10 Mg Tab) 10 mg PO QAM OTILIA Stop: 11/29/22 08:59 Last Admin: 11/01/22 08:40 Dose: 10 mg Buspirone HCl (Buspirone 15 Mg Tab) 15 mg PO BID OTILIA Stop: 11/28/22 20:59 Last Admin: 11/01/22 08:40 Dose: 15 mg Collagenase (Collagenase Oint 30 Gm Tube) 1 appln EXT DAILY OTILIA Stop: 11/30/22 16:59 Last Admin: 11/01/22 08:41 Dose: 1 appln Dextrose (Dextrose 50% 50 Ml Syringe) 25 - 50 ml IV UD PRN; Protocol PRN Reason: Hypoglycemia Protocol Stop: 11/28/22 16:12 Fluoxetine HCl (Fluoxetine Hcl 20 Mg Cap) 20 mg PO HS OTILIA Stop: 11/28/22 20:59 Last Admin: 10/31/22 21:03 Dose: 20 mg Fluticasone/Vilanterol (Fluticasone/Vilanterol 200/25mcg 14 Puffs/Inhaler) 1 puffs INH DAILY OTILIA Stop: 11/29/22 08:59 Last Admin: 11/01/22 08:41 Dose: 1 puffs Folic Acid (Folic Acid 1 Mg Tab) 1 mg PO QAM OTILIA Stop: 11/29/22 08:59 Last Admin: 11/01/22 08:40 Dose: 1 mg Furosemide (Furosemide 80 Mg Tab) 80 mg PO BID17 OTILIA Stop: 11/29/22 08:59 Last Admin: 11/01/22 08:40 Dose: 80 mg Gabapentin (Gabapentin 600 Mg Tab) 600 mg PO TID OTILIA Stop: 11/28/22 20:59 Last Admin: 11/01/22 08:39 Dose: 600 mg Glucagon (Glucagon For Inj 1 Mg Vial) 1 mg SQ UD PRN; Protocol PRN Reason: Hypoglycemia Protocol Stop: 11/28/22 16:12 Glucose (Glucose 40% Gel 15 Gm Tube) 15 - 30 gm PO UD PRN; Protocol PRN Reason: Hypoglycemia Protocol Stop: 11/28/22 16:12 Glucose (Glucose 10 Tab/Tube) 4 - 8 tab PO UD PRN; Protocol PRN Reason: Hypoglycemia Treatment Stop: 11/28/22 16:12 Heparin Sodium (Porcine) (Heparin 100 Unit/Ml 5ml Flush) 5 ml FLUSH PRN PRN PRN Reason: Flush Stop: 11/29/22 00:07 Last Admin: 11/01/22 09:35 Dose: 5 ml Hydroxyzine HCl (Hydroxyzine Hcl 10 Mg Tab) 10 mg PO Q8H PRN PRN Reason: Itching Stop: 11/28/22 16:12 Ceftriaxone Sodium 2,000 mg/ (Dextrose) 70 mls @ 100 mls/hr IV Q24H OTILIA; Protocol Stop: 11/05/22 15:59 Last Infusion: 10/31/22 17:28 Dose: Infused Daptomycin 350 mg/ Syringe 7 mls @ 3.5 mls/min IV Q24H OTILIA; Protocol Stop: 11/05/22 16:59 Last Admin: 10/31/22 16:43 Dose: 3.5 mls/min Insulin Aspart (Insulin Aspart Per Unit) 0 units SC ACHS OTILIA Stop: 11/28/22 16:29 Last Admin: 11/01/22 12:05 Dose: Not Given Lactic Acid (Ammonium Lactate 12% Lotion 225 Gm Btl) 1 gm EXT DAILY OTILIA Stop: 11/30/22 14:29 Last Admin: 11/01/22 08:41 Dose: 1 gm Metformin HCl (Metformin Hcl 500 Mg Tab) 1,000 mg PO BID OTILIA Stop: 11/30/22 20:59 Last Admin: 11/01/22 08:40 Dose: 1,000 mg Miscellaneous (Carbohydrates For Hypoglycemia ) 15 - 30 gm PO UD PRN PRN Reason: Hypoglycemia Protocol Stop: 11/28/22 16:12 Montelukast Sodium (Montelukast Sodium 10 Mg Tablet) 10 mg PO DAILY OTILIA Stop: 11/29/22 08:59 Last Admin: 11/01/22 08:40 Dose: 10 mg Morphine Sulfate (Morphine Sulfate 4 Mg/Ml 1 Ml Carp\\Vial) 3 mg IV BID PRN PRN Reason: dressing changes Stop: 11/13/22 14:15 Last Admin: 11/01/22 09:34 Dose: 3 mg Multivitamins (Multivitamin Tab) 1 tab PO QAM OTILIA Stop: 11/29/22 08:59 Last Admin: 11/01/22 08:40 Dose: 1 tab Oxycodone/Acetaminophen (Oxycodone/Acetaminophen 5mg/325mg Tab) 1 tab PO Q6H PRN PRN Reason: Pain Stop: 11/12/22 16:12 Last Admin: 11/01/22 12:10 Dose: 1 tab Pantoprazole Sodium (Pantoprazole 40 Mg Tab) 40 mg PO BID OTILIA Stop: 11/28/22 20:59 Last Admin: 11/01/22 08:40 Dose: 40 mg Spironolactone (Spironolactone 25 Mg Tab) 50 mg PO BID17 OTILIA Stop: 11/29/22 08:59 Last Admin: 11/01/22 08:40 Dose: 50 mg Umeclidinium [place] (Umeclidinium [place] 62.5mcg/Blister 7 Puffs/Inhaler) 1 puffs INH DAILY OTILIA Stop: 11/29/22 08:59 Last Admin: 11/01/22 08:40 Dose: 1 puffs (5) Chronic deep vein thrombosis (DVT) Affected thrombotic vein of extremity: unspecified vein of extremity DVT location: lower extremity Laterality: right Qualified Code(s): I82.501 - Chronic embolism and thrombosis of unspecified deep veins of right lower extremity (6) COPD (chronic obstructive pulmonary disease) COPD type: unspecified COPD Qualified Code(s): J44.9 - Chronic obstructive pulmonary disease, unspecified (7) Cirrhosis Ascites presence: unspecified Hepatic cirrhosis type: alcoholic cirrhosis Qualified Code(s): K70.30 - Alcoholic cirrhosis of liver without ascites (8) Type 2 diabetes mellitus Diabetes mellitus ocean transportation intermediary insulin use: without senior living use
--- NOTE | 2022-11-01 13:51 | XRay Report ---
XR foot LT min 3V routine CLINICAL HISTORY: lateral TECHNIQUE: 3 views of the right foot were obtained. Comparison: Comparison is made to left ankle radiographs 11/01/2022 FINDINGS: No fractures are present. Degenerative changes are seen. No soft tissue abnormality is seen. IMPRESSION: No evidence of acute bony injury. ACT 112: Negative or not required by law. Electronically signed by: Tino Zaidi M.D. 11/01/2022 1:49 PM
[2022-11-01] MEDS ORDERED: COLLAGENASE OINT 30 GM TUBE EXT SCH (15:00)
[2022-11-01] MEDS: cefTRIAXone SODIUM 2,000 MG in DEXTROSE 5% 50 ML IV SCH (16:29)
[2022-11-01] MEDS: DAPTOmycin 500 MG in SYRINGE 0 ML IV SCH (17:57)
[2022-11-01] MEDS: hydrOXYzine HCl 10 MG TAB PO PRN (20:10)
[2022-11-01] MEDS: FLUoxetine HCL 20 MG CAP PO SCH (20:11)
[2022-11-01] MEDS: MELATONIN 3 MG TAB PO PRN (23:49)
--- NOTE | 2022-11-02 01:28 | Consultation Report ---
DATE OF CONSULTATION: 11/01/2022. HISTORY OF PRESENT ILLNESS: This is a 47-year-old gentleman seen at the request of Dr. Larry Wheeler and YNES Kilgore. The patient has a longstanding history of chronic venous stasis with chronic venous insufficiency related to injury sustained approximately 15 years prior, when a plow blade dropped on his legs. The patient has had progressive worsening deformity of bilateral lower extremities including contractures of his Achilles and prior treatment with a local creosoting engineer, Dr. Ryder, and his , Anthony, according to the patient. The patient had previous evaluation for possible tendon transfer surgery; however, that was never performed. The patient reported to the hospital on this current occasion after the discharge from the hospital on a 2- week course of doxycycline per infectious disease recommendations. His most recent [facility] admission was from 10/02/2022 through 10/08/2022 for left lower extremity chronic ulceration, culture positive for MRSA. The patient was supposed to follow up with the [facility], however, was lost to followup. The patient noted foul-smelling odor in his left lower leg after he completed doxycycline and the patient recently had evaluation with Dr. Tan Jenkins for venous mapping with study for reflux. The patient was given IV ceftriaxone and daptomycin the Emergency Department and was then admitted to the hospitalist service with recent consultation with infectious disease. Infectious disease recommended daptomycin trial. Multiple imaging studies were done, radiographs of bilateral lower extremities and MRIs of bilateral lower extremities without convincing evidence of osteomyelitis thus far. Most recent consultation for orthopedics was for a consideration of bracing to avoid lateral overload of the forefoot due to his chronic cavovarus foot deformities, more pronounced on the left than the right. The patient is concerned about ulceration of his feet as he has had significant difficulty with ulceration of his legs. PAST MEDICAL HISTORY: Chronic venous stasis ulcers, bilateral lower extremities; bilateral venous insufficiency with documented extensive venous reflux with incomplete deep venous thromboses, bilateral lower extremities. Depression with anxiety; COPD; tobacco abuse; cirrhosis of the liver; type 2 diabetes mellitus; asthma; chronic DVTs, bilateral; chronic recurrent cellulitis, bilateral legs; chronic narcotic abuse; GERD; hypertension; hyperlipidemia; pulmonary embolism 13 years prior; pulmonary nodule. PAST SURGICAL HISTORY: A-Port insertion, wisdom tooth extraction, surgical debridement of the lower legs. ALLERGIES: PEAS, ANAPHYLAXIS; VANCOMYCIN, ITCHING; SULFAMETHOXAZOLE, HIVES; TRIMETHOPRIM, HIVES; TUNA, ANAPHYLAXIS. MEDICATIONS: Please note the extensive list in the medical record. SOCIAL HISTORY: The patient states that he stopped drinking alcohol approximately 4 years prior and prior alcohol abuse. He currently smokes typically three cigarettes a day, up to 2 packs a day in the past. He is attempting to stop smoking. History of narcotic abuse. He is and lives with his significant other. He is disabled. PHYSICAL EXAMINATION: This is a 47-year-old gentleman who is awake and alert. Speech is clear and fluent. Affect is appropriate. He is attentive and answers questions appropriately. Examination of the lower extremities demonstrates severe chronic venous stasis changes, bilateral lower extremities, with multiple ulcers with varying degrees of healing and scarring from the proximal one-third of the tibia extending distally. On the left side medial ankle, there is an area of necrosis and slough measuring approximately 3 x 2.2 x 0.5 cm with chronic appearing moist space with foul odor and slight transudate. On the right lower medial tibia, there is a lesion measuring 1.75 x 2.0 x 0.4 cm in depth with mildly foul odor, slight transudate, some slough and Santyl on the base. He has bilateral cavovarus feet with the left more pronounced than the right. He has overload with callusing over the fifth metatarsal, left greater than right. He has limited dorsiflexion, bilateral lower extremities, worse on the left than the right. Dorsiflexion limited to -10 degrees dorsiflexion on the left with an obvious gastroc and soleus contracture and on the right limited to 0 degrees dorsiflexion with similar gastroc and soleus contractures. He has cavus feet with adductus deformities. He has multiple claw toes. Sensation is intact in bilateral lower extremities. Dorsalis pedis and posterior tibial pulses are 2/4 bilateral. Hair growth is moderate. He has edema 2/4, bilateral lower extremities primarily of the ankle and extending distally. He has severe scarring from his chronic venous stasis so much so, that he has variable thickness skin capacity for edema. There is minimal soft tissue, which is weeping transudate/ exudate. DIAGNOSTIC DATA: Radiographs, MRI and Doppler arterial and venous studies have been reviewed. Laboratories and microbiology reviewed. IMPRESSION: 1. Left greater than right Achilles contractures. 2. Bilateral cavovarus feet, left greater than right. 3. Chronic venous ulcers, bilateral lower extremities. On the left, 3.0 x 2.2 x 0.5 cm, on the right medial lower leg, 1.75 x 2.0 x 0.4 cm, chronic bilateral venous insufficiency with reflux. RECOMMENDATION: At this time, continue with IV antibiotics per infectious disease team. Continue with wound care. Consultation with orthotic team for bilateral fixed angle MAFO devices. Will follow with you as necessary. No recommendation for surgical intervention at this time unless symptoms and condition should worsen. Thank you for the opportunity to consult in the care of this patient. Job ID: [id number]
[2022-11-02] MEDS: oxyCODONE/ACETAMINOPHEN 5mg/325mg TAB PO PRN ×2 (07:51→17:03)
[2022-11-02] MEDS: INSULIN ASPART PER UNIT SC SCH (08:35)
[2022-11-02] MEDS: FLUTICASONE/VILANTEROL 200/25MCG 14 PUFFS/INHALER INH SCH (09:04)
[2022-11-02] MEDS: APIXABAN 5 MG TABLET PO SCH ×2 (09:04→20:12)
[2022-11-02] MEDS: GABAPENTIN 600 MG TAB PO SCH ×3 (09:04→20:12)
[2022-11-02] MEDS: ATORVASTATIN 10 MG TAB PO SCH (09:04)
[2022-11-02] MEDS: UMECLIDINIUM BROMIDE 62.5MCG/BLISTER 7 PUFFS/INHALER INH SCH (09:04)
[2022-11-02] MEDS: busPIRone 15 MG TAB PO SCH ×2 (09:04→20:13)
[2022-11-02] MEDS: PANTOprazole 40 MG TAB PO SCH ×2 (09:05→20:11)
[2022-11-02] MEDS: MONTELUKAST SODIUM 10 MG TABLET PO SCH (09:05)
[2022-11-02] MEDS: metFORMIN HCL 500 MG TAB PO SCH ×2 (09:05→20:12)
[2022-11-02] MEDS: MULTIVITAMIN TAB PO SCH (09:05)
[2022-11-02] MEDS: hydrOXYzine HCl 10 MG TAB PO PRN ×2 (09:05→20:58)
[2022-11-02] MEDS: FOLIC ACID 1 MG TAB PO SCH (09:05)
[2022-11-02] MEDS: AMMONIUM LACTATE 12% LOTION 225 GM BTL EXT SCH (09:06)
[2022-11-02] MEDS: COLLAGENASE OINT 30 GM TUBE EXT SCH (09:06)
[2022-11-02] MEDS: FUROSEMIDE 80 MG TAB PO SCH ×2 (09:06→17:04)
[2022-11-02] MEDS: SPIRONOLACTONE 25 MG TAB PO SCH ×2 (09:06→17:04)
[2022-11-02] MEDS ORDERED: POLYETHYLENE (MIRALAX) 17 GM PACK PO PRN (11:22)
--- NOTE | 2022-11-02 13:02 | Hospitalist Progress Note ---
Date of Service November 02, 2022 Assessment & Plan (1) Open wound of both lower extremities with complication: (2) Venous ulcers of both lower extremities: (3) Venous insufficiency (chronic) (peripheral): Plan: per admitting service notes with addendum: Pt admitted to med/surg Patient presenting from home with reports of left lower extremity wound. Patient with history of severe PVD and recurrent/chronic venous ulcers and wounds of the bilateral lower extremities. Recently admitted to [facility] 10/02 through 10/08 for L LE wound, culture positive for MRSA. Patient discharged on a 2-week course of doxycycline per ID recommendations. Patient was to follow-up with the wound care center unfortunately was lost to follow-up. Patient reports that shortly after doxycycline course was completed, a foul-smelling odor returned to left lower extremity wound. During admission, patient was evaluated by reconstructive surgery --no surgical intervention was recommended. Patient was also evaluated by vascular surgery -- "No significant obstructive disease noted on recent left lower extremity arterial duplex and bilateral toe pressures adequate for healing. Do not feel arterial disease playing a significant role in poor wound healing. Venous reflux ultrasound noteworthy for extensive nonobstructive chronic DVT bilaterally from CFV through popliteal veins. Also with SVT involving bilateral GSV/SSV's. Did have some superficial reflux but the setting of extensive deep system disease feel he would not benefit from superficial vein ablation." Patient also underwent BLE MRIs that were negative for evidence of osteomyelitis. In the ED today, patient is hemodynamically stable, does not appear septic. Initial lactate 2.2 however improved to 1.1 after IVF. S/p IV ceftriaxone and IV daptomycin in the ED, will continue with both given previous culture results Follow wound culture No active drainage noted on exam today, ?? If this is more of chronic findings vs. active infection. ID consult placed Wound care consult, consider reconsult to reconstructive surgery. ID consult BC: FELATD Wound culture: moderate counts of mixed skin microbiota Continue with daptomycin day #5 Saw infectious disease yesterday who recommended discontinuing cephalosporin Continue daptomycin while inpatient and patient can be discharged on oral clindamycin 300 mg every 8 hours for a total of 21 days with a start date of 10/29. It is recommended if worsens on oral therapy patient will need a deep culture obtained. Will add lactobacillus (Unable to do saccharomyces due to pt with central line and risk of fungemia) continue with daily dressing changes Wound care discharge instructions: Wash legs with soap and water, rinse, pat and dry. To open areas on lower leg wounds clean and dry wound with saline. Apply AmLactin lotion to intact skin on bilateral legs. Apply nickel thick layer of Santyl to open areas. Cover with Adaptic, gauze and secure with Kerlix. Change only once a day. It is suggested to apply Santyl to Adaptic. He will need follow-up appointment with wound care center, phone number is [phone] Wound care service recommending Xeroform instead of Adaptic PRN Morphine IV 3 mg BID for dressing changes L Ankle pain Xr: . Soft tissue swelling with no acute bony abnormality identified. 2. Osteopenia with chronic and degenerative changes as above. Ortho consult reviewed Awaiting on orthotics consult (4) Depression with anxiety: Plan: Stable, continue home meds (5) Chronic deep vein thrombosis (DVT): Plan: Warfarin transition to Eliquis during previous admission tolerating eliquis well (6) COPD (chronic obstructive pulmonary disease): Plan: With active ongoing tobacco abuse Appears stable, no signs of acute exacerbation Continue home inhalers no exacerbation noted Pt has chronic b/l wheezing (7) Cirrhosis: Plan: Appears compensated furosemide and spironolactone (8) Type 2 diabetes mellitus: Plan: Hgb A1c 6.1 09/2022 Patient requesting regular diet Resume usual metformin 1000 mg twice daily d/c bsgs and insulin and pt refusing DVT PROPHYLAXIS On Eliquis Disposition likely discharge tomorrow after orthotics consult placed and he is started on oral antibiotics A total of 35 minutes was spent with greater than 50% of that time personally viewing all current laboratory work and diagnostic imaging studies obtained in the ED. Additionally, I was able to view the patients past medication reconciliation and history with direct visualization in the patients chart. Included in the time above, a portion of that time was spent assessing the patient while discussing and collaborating with specialists, if necessary, and making medical decision making on treatment plan. All of the above was collaborated with Dr. Verduzco. Please see addendum for further details. Plan This is a 47-year-old male with PMH chronic DVT with MTHFR mutation anticoagulated on Eliquis, DM type II, dyslipidemia, COPD, chronic and recurrent venous stasis ulcers, severe PVD, cirrhosis, history of alcohol abuse, current tobacco use, chronic narcotic use, and other problems listed below who presents to the ED for evaluation of worsening left leg wound. Has history of severe PVD and recurrent/chronic venous ulcers and wounds of the bilateral lower extremities. Recently admitted to [facility] 10/02 through 10/08 for L LE wound, culture positive for MRSA. Patient discharged on a 2-week course of doxycycline per ID recommendations. Patient was to follow-up with the wound care center unfortunately was lost to follow-up. Patient reports that shortly after doxycycline course was completed, a foul-smelling odor returned to left lower extremity wound. During admission, patient was evaluated by reconstructive surgery - no surgical intervention was recommended. Patient was also evaluated by vascular surgery who did not feel arterial disease playing a significant role in poor wound healing. Has extensive nonobstructive chronic DVT bilaterally on anticoagulation. Also underwent BLE MRIs that were negative for evidence of osteomyelitis. Wound culture with moderate counts of mixed skin microbiota. Has been on daptomycin while inpatient. Per infectious disease consult, recommend to transition to oral clindamycin 300 mg Q8H for total of 21 days with a start date of 10/29. Recommended that if worsens on oral therapy, patient will need a deep culture obtained. Discharged on probiotics as well and continue with daily dressing changes. Patient offered home health but not interested. Does his own dressing changes and will communicate instructions to [facility] cafe or restaurant manager as well. Evaluated by orthotics during hospitalization and will follow up with them outpatient. Patient with close follow-up for for primary care and wound care. Continue as needed chronic narcotics per home schedule. Patient comfortable and hematemesis at time of discharge. Admission and Anticipated Discharge Date Admission Date: October 30, 2022 Supervising Physician Co-Signing Physician Notes delayed entry date of service noted above Attending Addendum: care coordinated with LEAH Yanira Sims please refer to her notes for full details, I agree with her notes patient seen and examined, records reviewed by myself as well on exam, patient seen resting in bed, sitting up, not in distress In good spirits States lower leg pain continues to improve no other symptoms VS noted and reviewed oriented , not in distress, speaks in sentences with no effort nor accessory muscle use normal rate, regular rhythm, no murmurs clear breath sounds bilaterally non distended, soft, nontender Dressings in place on bilateral lower extremity wounds, no discharge or bleeding no neuro deficits All labs noted and reviewed ASSESSMENT AND PLAN other diagnoses and plan of care as per LEAH Yanira Sims's notes Juan Francisco Verduzco MD Subjective Patient was seen and examined in room 316. Follow up LLE wounds. Patient states he saw Ortho and is to have a consult with orthotics for both feet. He continues to have left lower extremity pain and feels it is at baseline. No worsening edema. Tolerating diet. States he has a case technician with [facility] who can arrange getting him dressings delivered to his home. He is planning to follow with wound care once weekly as outpatient. He denies fever, chills, sweats, chest pain, shortness with, nausea, vomit, abdominal pain. He wishes to start oral clindamycin while in house to monitor for side effects. Review of Systems Review of Systems: All systems reviewed & are unremarkable except as noted in HPI & below Physical Exam Physical Exam: Gen: WD/WN, NAD, A&O x3 HEENT: Normocephalic, atraumatic, conjunctivae moist, sclerae anicteric, mucous membranes moist. Lung: Clear to Auscultation bilaterally, b/l exp wheezing, no rales/rhonchi Heart: Regular rate, regular rhythm, no murmurs, rubs, or gallops Abdomen: Soft, NT, ND +BS x 4 Extremities:b/l venous stasis changes w/ bilateral wraps in place Skin: Warm, no rash, negative turgor. Results & Data Results & Data ([facility]) Vital Signs (Past 12 Hours) Vital Signs Temp Pulse Resp BP Pulse Ox O2 Del Method 11/02/22 07:45 36.7 C 70 16 127/78 95 Room Air (5) Chronic deep vein thrombosis (DVT) Affected thrombotic vein of extremity: unspecified vein of extremity DVT location: lower extremity Laterality: right Qualified Code(s): I82.501 - Chronic embolism and thrombosis of unspecified deep veins of right lower extremity (6) COPD (chronic obstructive pulmonary disease) COPD type: unspecified COPD Qualified Code(s): J44.9 - Chronic obstructive pulmonary disease, unspecified (7) Cirrhosis Ascites presence: unspecified Hepatic cirrhosis type: alcoholic cirrhosis Qualified Code(s): K70.30 - Alcoholic cirrhosis of liver without ascites (8) Type 2 diabetes mellitus Diabetes mellitus chcf insulin use: without chcf use
[2022-11-02] MEDS: MoRPHine SULFATE 4 MG/ML 1 ML CARP\\VIAL IV PRN (14:14)
[2022-11-02] MEDS: CLINDAMYCIN HCL 150 MG CAP PO SCH ×2 (14:16→20:13)
[2022-11-02] MEDS: DAPTOmycin 500 MG in SYRINGE 0 ML IV SCH (17:04)
[2022-11-02] MEDS: MELATONIN 3 MG TAB PO PRN (20:10)
[2022-11-02] MEDS: FLUoxetine HCL 20 MG CAP PO SCH (20:12)
[2022-11-03] MEDS: CLINDAMYCIN HCL 150 MG CAP PO SCH ×2 (05:20→12:41)
[2022-11-03] MEDS: oxyCODONE/ACETAMINOPHEN 5mg/325mg TAB PO PRN (08:04)
[2022-11-03 08:05] LABS: Hematocrit (blood only) 41.9 % (42.0-52.0); Hemoglobin 13.8 g/dl (14.0-18.0); Mean Corpuscular Hemoglobin 27.8 pg (25.0-34.0); Mean Corpuscular Hgb Conc 32.9 g/dL (32.0-36.0); Mean Corpuscular Volume 84.3 fL (80.0-100.0); Mean Platelet Volume 9.3 fL (9.4-12.4); Platelet Count 202 K/uL (130-400); RDW Coefficient of Variation 14.9 % (11.5-14.5); RDW Standard Deviation 45.4 fL (36.4-46.3); Red Blood Count 4.97 M/uL (4.70-6.10); White Blood Count 4.88 K/ul (4.8-10.8)
[2022-11-03 08:22] LABS: BUN Creatinine Ratio 31.3 (10-20); Creatinine Clr Calc Pharmacy 126.8 ml/min; Est GFR (African American) 120.6 ml/min; Potassium 3.7 mmol/L (3.5-5.1)
[2022-11-03] MEDS: MONTELUKAST SODIUM 10 MG TABLET PO SCH (09:00)
[2022-11-03] MEDS ORDERED: ADVANCED PROBIOTIC 1250 MG CAPSULE PO SCH (09:00)
[2022-11-03] MEDS: APIXABAN 5 MG TABLET PO SCH (09:00)
[2022-11-03] MEDS: FOLIC ACID 1 MG TAB PO SCH (09:00)
[2022-11-03] MEDS: FUROSEMIDE 80 MG TAB PO SCH (09:00)
[2022-11-03] MEDS: ATORVASTATIN 10 MG TAB PO SCH (09:00)
[2022-11-03] MEDS: metFORMIN HCL 500 MG TAB PO SCH (09:01)
[2022-11-03] MEDS: GABAPENTIN 600 MG TAB PO SCH (09:01)
[2022-11-03] MEDS: busPIRone 15 MG TAB PO SCH (09:01)
[2022-11-03] MEDS: PANTOprazole 40 MG TAB PO SCH (09:01)
[2022-11-03] MEDS: SPIRONOLACTONE 25 MG TAB PO SCH (09:01)
[2022-11-03] MEDS: MULTIVITAMIN TAB PO SCH (09:01)
[2022-11-03] MEDS: FLUTICASONE/VILANTEROL 200/25MCG 14 PUFFS/INHALER INH SCH (09:02)
[2022-11-03] MEDS: UMECLIDINIUM BROMIDE 62.5MCG/BLISTER 7 PUFFS/INHALER INH SCH (09:02)
[2022-11-03] MEDS: MoRPHine SULFATE 4 MG/ML 1 ML CARP\\VIAL IV PRN (10:00)
[2022-11-03] MEDS: AMMONIUM LACTATE 12% LOTION 225 GM BTL EXT SCH (10:25)
[2022-11-03] MEDS: COLLAGENASE OINT 30 GM TUBE EXT SCH (10:25)
[2022-11-03] MEDS: HEPARIN 100 UNIT/ML 5ML FLUSH FLUSH PRN (12:41)
--- NOTE | 2022-11-03 12:53 | Discharge Summary ---
Discharge Summary Date of Service November 03, 2022 Notes For Next Care Provider Ongoing BLE wounds. Dc on [facility] for 21 day course per ID. Wound care instructions provided to Javier DE LA FUENTE. Follow up with PCP and wound care Medication Changes From Visit [facility] for 21 day course per ID. Admission HPI Per Admitting Provider 47-year-old male with PMH chronic DVT with MTHFR mutation anticoagulated on Eliquis, DM type II, dyslipidemia, COPD, chronic and recurrent venous stasis ulcers, severe PVD, cirrhosis, history of alcohol abuse, current tobacco use, c hronic narcotic use, and other problems listed below who presents to the ED for evaluation of worsening left leg wound. History obtained from patient and review of outpatient and prior inpatient records. Patient recently admitted to [facility] 10/02 through 10/08 for L LE wound, culture positive for MRSA. Patient discharged on a 2-week course of doxycycline. Patient was to follow-up with the wound care center unfortunately was lost to follow-up. Patient reports that shortly after doxycycline course was completed, a foul-smelling odor returned to left lower extremity wound. He reports yellow discharge. No fevers or or chills. Denies chest pain shortness of breath. No lightheadedness, dizziness, diaphoresis, syncopal events. Denies urinary symptoms. In the ED, patient is hemodynamically stable, patient is afebrile, no leukocytosis. Lactic acid mildly elevated 2.2. Patient was given IV ceftriaxone, IV Dapto, IV Dilaudid, IV Benadryl, IVF. Admission Exam Per Admitting Provider Constitutional: WD/WN, vitals as above Eyes: PERRL, conjunctivae normal, anicteric sclerae ENMT: external ear and nose normal, oropharynx normal Respiratory: normal respiratory effort, lungs clear to auscultation Cardiovascular: Rate/Rhythm: regular rate and regular rhythm Vessels: normal peripheral pulses Extremities: no edema Gastrointestinal (Abdomen): normal bowel sounds, soft, nontender, no hepatosplenomegaly Musculoskeletal: no cyanosis or clubbing, extremities motor strength 5/5 Skin: Severe chronic venous changes noted to BLE, wound noted to left medial ankle with yellow-colored scab. No active drainage present. Foul odor present. Neurologic: PERRL, EOMI, accommodation nl, no face palsy, no dysarthria Psychiatric: A+Ox3, euthymic affect Principal Dx & Hospital Course #1 = Principal Diagnosis (1) Open wound of both lower extremities with complication: (2) Venous ulcers of both lower extremities: (3) Venous insufficiency (chronic) (peripheral): (4) Depression with anxiety: (5) Chronic deep vein thrombosis (DVT): (6) COPD (chronic obstructive pulmonary disease): (7) Cirrhosis: (8) Type 2 diabetes mellitus: Plan This is a 47-year-old male with PMH chronic DVT with MTHFR mutation anticoagulated on Eliquis, DM type II, dyslipidemia, COPD, chronic and recurrent venous stasis ulcers, severe PVD, cirrhosis, history of alcohol abuse, current tobacco use, chronic narcotic use, and other problems listed below who presents to the ED for evaluation of worsening left leg wound. Has history of severe PVD and recurrent/chronic venous ulcers and wounds of the bilateral lower extremities. Recently admitted to [facility] 10/02 through 10/08 for L LE wound, culture positive for MRSA. Patient discharged on a 2-week course of doxycycline per ID recommendations. Patient was to follow-up with the wound care center unfortunately was lost to follow-up. Patient reports that shortly after doxycycline course was completed, a foul-smelling odor returned to left lower extremity wound. During admission, patient was evaluated by reconstructive surgery - no surgical intervention was recommended. Patient was also evaluated by vascular surgery who did not feel arterial disease playing a significant role in poor wound healing. Has extensive nonobstructive chronic DVT bilaterally on anticoagulation. Also underwent BLE MRIs that were negative for evidence of osteomyelitis. Wound culture with moderate counts of mixed skin microbiota. Has been on daptomycin while inpatient. Per infectious disease consult, recommend to transition to oral clindamycin 300 mg Q8H for total of 21 days with a start date of 10/29. Recommended that if worsens on oral therapy, patient will need a deep culture obtained. Discharged on probiotics as well and continue with daily dressing changes. Patient offered home health but not interested. Does his own dressing changes and will communicate instructions to [facility] technical operations manager as well. Evaluated by orthotics during hospitalization and will follow up with them outpatient. Patient with close follow-up for for primary care and wound care. Continue as needed chronic narcotics per home schedule. Patient comfortable and hematemesis at time of discharge. Discharge Exam Gen: WD/WN, NAD, lying in bed, A&Ox3 HEENT: Normocephalic, atraumatic, conjunctivae moist, sclerae anicteric, mucous membranes moist Lung: Clear to Auscultation bilaterally, no wheezes/rales/rhonchi Heart: Regular rate, regular rhythm, no murmurs, rubs, or gallops Abdomen: Soft, NT, ND +BS x 4 Extremities: BLE extremities with healing wounds on medial aspect, slough present, minimal drainage. No edema Skin: Warm, no rash Updated Medication List Medication Instructions Recorded Confirmed Type albuterol sulfate 90 mcg/actuation 1 puff inhalation Q6H PRN 05/09/18 10/29/22 History aerosol inhaler (Ventolin HFA) Shortness Of Breath folic acid 1 mg tablet 1 mg PO QAM 05/09/18 10/29/22 History omeprazole 20 mg capsule,delayed 20 mg PO BID 05/09/18 10/29/22 History release diphenhydramine HCl 25 mg capsule 25 - 50 mg PO Q6H PRN Itching 10/23/19 10/29/22 History (Benadryl) furosemide 80 mg tablet 80 mg PO BID17 10/23/19 10/29/22 History atorvastatin 10 mg tablet 10 mg PO QAM 06/05/20 10/29/22 History gabapentin 600 mg tablet 600 mg PO TID 06/05/20 10/29/22 History multivitamin 1 tab PO QAM 06/05/20 10/29/22 History spironolactone 50 mg tablet 50 mg PO BID 06/05/20 10/29/22 History buspirone 15 mg tablet 15 mg PO BID 10/02/22 10/29/22 History fluoxetine 20 mg capsule 20 mg PO HS 10/02/22 10/29/22 History fluticasone 500 mcg-salmeterol 50 1 inh inhalation BID 10/02/22 10/29/22 History mcg/dose blistr powdr for inhalation metformin 1,000 mg tablet 1,000 mg PO BID 10/02/22 10/29/22 History montelukast 10 mg tablet 10 mg PO DAILY 10/02/22 10/29/22 History apixaban 5 mg tablet (Eliquis) 5 mg PO BID #60 tabs 10/04/22 10/29/22 Rx ammonium lactate 5 % lotion 1 applic EXT BID #226 grams 10/08/22 10/29/22 Rx (Lac-Hydrin Five) hydroxyzine HCl 10 mg tablet 10 mg PO Q8H PRN Itching 10/29/22 10/29/22 History tiotropium bromide 2.5 2 inh inhalation DAILY 10/29/22 10/29/22 History mcg/actuation mist for inhalation (Spiriva Respimat) white petrolatum-mineral oil 1 applic EXT TID PRN Skin 10/29/22 10/29/22 History topical cream (Dermacerin topical Irritation cream) L.acidop,casei,lactis,rham-B.lact,elmer 2 cap PO DAILY #32 caps 11/03/22 Rx 625 mg (10 billion cell) capsule (Advanced Probiotic) clindamycin HCl 300 mg capsule 300 mg PO Q8H #96 caps 11/03/22 Rx oxycodone-acetaminophen 5 mg-325 1 tab PO Q8H PRN pain, severe #10 11/03/22 Rx mg tablet tabs Hospital Stay Data Consultations 10/29/22 15:05 ED Decision to Admit Stat 10/29/22 16:13 Consult Infectious Diseases Routine Consult Infectious Diseases Routine 11/01/22 11:23 Consult Orthopedic Surgery Routine Pending Results Patient Have Any Pending Studies at Discharge: No Discharge Instructions Given to Patient (Per Discharging Provider) Continue Clindamycin for leg infection. Please continue probiotic as well while on antibiotics to prevent diarrhea. Wound care discharge instructions: Wash legs with soap and water, rinse, pat and dry. To open areas on lower leg wounds clean and dry wound with saline. Apply AmLactin lotion to intact skin on bilateral legs. Apply nickel thick layer of Santyl to open areas. Cover with Adaptic, gauze and secure with Kerlix. Change only once a day. It is suggested to apply Santyl to Adaptic. RECOMMENDATIONS FOR FOLLOW-UP: Please follow up with PCP and wound care as scheduled above. OTHER INSTRUCTIONS: Seek medical attention if you have: * temperature above 101 * chest pain or trouble breathing * abdominal pain, nausea, vomiting * diarrhea, dark stools or bloody stools * any unanswered questions or concerns Call 911 if symptoms are severe. Please take good care of yourself. Call if you have any questions or problems. You can reach a [facility] hospitalist on duty at [facility] 24 hours a day by calling [phone]. Total Time Total Time Spent Total Time Spent (In Minutes): 50 Supervising Physician Co-Signing Physician Notes delayed entry date of service noted above Attending Addendum: care coordinated with LEAH Ahmadi please refer to her notes for full details, I agree with her notes Chart reviewed Agree with LEAH Ahmadi's assessment and plan Unfortunately when I visited patient's room at 1:40 PM, patient has already left. ASSESSMENT AND PLAN diagnoses and plan of care as per LEAH Ahmadi's notes Juan Francisco Verduzco MD
== END 2022-11-03 14:06 | disposition home or self-care (01) | DRG 300 ==
LOC: 3E 13:19 → ED 13:19 → SUATTDRO 14:55 → 3E 15:55
DX: Z79.01 Long term (current) use of anticoagulants; Z88.1 Allergy status to other antibiotic agents; Z95.828 Presence of other vascular implants and grafts; Q66.12 Congenital talipes calcaneovarus, left foot; F11.90 Opioid use, unspecified, uncomplicated; J44.9 Chronic obstructive pulmonary disease, unspecified; Z86.711 Personal history of pulmonary embolism; E78.5 Hyperlipidemia, unspecified; W30.8 Contact with other specified agricultural machinery; Z91.018 Allergy to other foods; E72.12 Methylenetetrahydrofolate reductase deficiency; Z79.51 Long term (current) use of inhaled steroids; I87.2 Venous insufficiency (chronic) (peripheral); K70.30 Alcoholic cirrhosis of liver without ascites; Q66.11 Congenital talipes calcaneovarus, right foot; E11.52 Type 2 diabetes mellitus with diabetic peripheral angiopathy with gangrene; L97.823 Non-pressure chronic ulcer of other part of left lower leg with necrosis of muscle; Z86.14 Personal history of Methicillin resistant Staphylococcus aureus infection; I82.501 Chronic embolism and thrombosis of unspecified deep veins of right lower extremity; Z20.822 Contact with and (suspected) exposure to COVID-19; I96 Gangrene, not elsewhere classified; Z79.84 Long term (current) use of oral hypoglycemic drugs; Z88.2 Allergy status to sulfonamides; F17.210 Nicotine dependence, cigarettes, uncomplicated; F41.1 Generalized anxiety disorder; I87.8 Other specified disorders of veins; M85.872 Other specified disorders of bone density and structure, left ankle and foot; L97.328 Non-pressure chronic ulcer of left ankle with other specified severity; I10 Essential (primary) hypertension; Z79.899 Other long term (current) drug therapy; Z86.59 Personal history of other mental and behavioral disorders; K21.9 Gastro-esophageal reflux disease without esophagitis; M67.02 Short Achilles tendon (acquired), left ankle; M67.01 Short Achilles tendon (acquired), right ankle; E11.622 Type 2 diabetes mellitus with other skin ulcer; T14.90XS Injury, unspecified, sequela

== ENCOUNTER 2023-01-12 08:59 | Inpatient (IN) ==
[2023-01-12] MEDS ORDERED: SODIUM CHLORIDE 0.9% 1000ML 1,000 ML IV STA (09:15)
[2023-01-12] MEDS ORDERED: HYDROmorphone INJ 1 MG/ML SYRINGE IV STA (09:15)
[2023-01-12] MEDS ORDERED: VANCOMYCIN CONSULT ACTIVE PRN ×2 (09:15→14:15)
[2023-01-12] MEDS ORDERED: VANCOMYCIN HCL 2,000 MG in SODIUM CHLORIDE 0.9% 500 ML IV ONE (09:15)
[2023-01-12] MEDS ORDERED: CEFEPIME 2,000 MG/20 ML VIAL IV STA (09:15)
[2023-01-12] MEDS ORDERED: EUCERIN CR 120 GM JAR EXT PRN (09:20)
--- NOTE | 2023-01-12 09:21 | Emergency Department Note ---
Impression & Plan Open wound of both lower extremities with complication, Venous ulcers of both lower extremities, History of MRSA infection, History of infection due to drug- resistant organism ED Provider Note Provider: Gerson Henao MD DATE OF SERVICE: 01/12/2023 CHIEF COMPLAINT: Leg infection HISTORY OF PRESENT ILLNESS: Patient is a 47-year-old gentleman history of MTHFR mutation on Eliquis, type 2 diabetes, COPD, cirrhosis, tobacco use, and venous stasis ulcers with a history of leg wounds presenting here today reporting an ulcer developed on his left ankle. Was hospitalized here in October as well as September for similar. Has a history of MRSA currently taking Keflex and clindamycin after being seen at [facility] on Monday. States the wound is worsening. Endorses some chills and increased fatigue with decreased appetite. Significant pain in the legs. States after admission healed well and thus did not need wound clinic. States about a week ago started to have wounds develop saw his certified legal secretary specialist last week and recommended he come to the ER. Went to the ER on Monday at [facility] and started on Keflex and clinda and things have worsened with increased smell from the left ankle by his report. Denies any trauma to the legs. 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 States his insurance will not cover Santyl at home and he has just been trying to manage and the best he could. PAST MEDICAL HISTORY: As noted above MEDICATIONS: Reviewed home medications and states compliance SOCIAL HISTORY: Smoker, unemployed PHYSICAL EXAM: GENERAL: alert and oriented in no acute distress on stretcher Head: normocephalic and atraumatic EYES: No injection, discharge or icterus. NECK: Trachea midline. ENT: Mucous membranes pink and moist. LUNGS: Airway patent. No retractions. Breath sounds clear HEART: Regular rate and rhythm. No chest wall tenderness with right upper chest port in place SKIN: Acyanotic, warm, dry, with small area of excoriated skin in the right posterior flank without discharge or crepitus. No bulla. EXTREMITIES: Without swelling of the bilateral legs however significant chronic stasis changes with few scattered subcentimeter wounds without significant erythema of the right mid to lower leg. No crepitus. There is an approximately 4 x 5 cm area of wound on the left distal victoria to medial leg without crepitus. Some slight granulation as well as erythema here. NEUROLOGICAL: No focal deficits. No aphasia. No facial droop or slurred speech. Normal strength and tone in the extremities. Sensation to gross touch normal. Ambulatory. Patient's laboratory studies reviewed. Differential includes Cellulitis, abscess, MRSA infection, DVT, necrotizing fasciitis, dermatitis, drug eruption, allergic reaction, as well as other pathologies. IMPRESSION/MEDICAL DECISION MAKING: Patient with history of resistant infections. Discussed with pharmacist has multiple resistance in the past. Keflex and clinda as an outpatient for the last several days with worsening by his report. Does not appear septic. Basic blood work and cultures obtained as well as surface cultures from wounds on both legs. No crepitus. Doubt necrotizing fasciitis. Does not seem to involve the joint more in the skin to the dermis area with a large wound particularly on the left lower leg. Given some pain medication. Cleaned with iodine and saline and bandaged. Blood work here with an elevated CRP no severe leukocytosis. Slight anemia. No signs of significant other chemistry abnormalities. In discussion with pharmacy vancomycin and cefepime ordered initially for antibiotic coverage. Given his failure of outpatient antibiotics with his history of resistance, discussed with him staying for further care here at the hospital. Hospitalist contacted. Did review the [facility] emergency department records from Monday. Negative blood cultures then. Normal white count then. Gets a bit of itching with vancomycin and given some Benadryl for this. DIAGNOSIS: Bilateral leg wounds and cellulitis DISPOSITION: Hospitalist will evaluate Patient was agreeable with this plan. Past Med/Surg History Medical History (Updated 01/12/23 @ 12:49 by Gerson Henao M.D.) Anxiety and depression Asthma USED RESCUE INHALER TODAY Blood clotting disorder ? NAME Cellulitis BILAT LEGS (WRAPS LEGS/DRY CLOTH) CURRENTLY HAS SOME OPEN WOUNDS>GOES TO WOUND CLINIC/[facility] Chronic deep vein thrombosis (DVT) 2018 (HOSPITALIZED AT [facility]) Chronic narcotic use Chronic ulcer of lower extremity RT LEG ONLY OPEN WOUND AT THIS TIME Chronic venous stasis dermatitis of both lower extremities Cirrhosis Diabetes mellitus, type 2 GERD (gastroesophageal reflux disease) History of ETOH abuse QUIT 2018 HTN (hypertension) Hyperlipidemia Pulmonary embolism 13 YEARS AGO ? DETAILS Pulmonary nodule CT chest 04/12/18 - 4 mm RUL nodule, f/u 12 months Tobacco abuse Type 2 diabetes mellitus Surgical History History of anesthesia reaction WITH A-PORT INSERTION, WOKE UP IN MIDDLE OF PROCEDURE History of vascular access device APORT IN RT CHEST (IN PLACE) [place] teeth removed Family History Father ETOH abuse Cirrhosis Mother Hypercoagulable state Prothrombin Factor II Mutation, 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, boderline hyperhomocystemia Social History Smoking Status: Current every day smoker Tobacco Type: Cigarettes Cigarettes Per Day: 3; Second Hand Exposure: Yes; Do You Dip or Chew Tobacco: No; Hx Alcohol Use: Yes Alcohol type: beer Alcohol Intake Frequency Comment: Pt reports quit drinking end of 07/2018 Hx Substance Use: No Preferred Language: Croatian Communication Ability: Effective Visual Impairment: No Limitations Hearing Ability: Normal Product Test Specialist Required: No Beliefs That Will Affect Care: None marital status: Current Living Situation: Significant Other How many Children do You have: 0 Feels Safe at Home: Yes Assistive Devices: None Allergies Allergies Allergy/AdvReac Type Severity Reaction Status Date / Time peas Allergy Severe Anaphylaxis Verified 01/12/23 10:36 sulfamethoxazole Allergy Intermediate hives Verified 01/12/23 10:36 trimethoprim Allergy Intermediate hives Verified 01/12/23 10:36 tuna Allergy Severe anaphylaxis Uncoded 01/12/23 10:36 Home Meds Home Medications Medication Instructions Recorded Confirmed albuterol sulfate 90 mcg/actuation 1 puff inhalation Q6H PRN 05/09/18 01/12/23 aerosol inhaler (Ventolin HFA) Shortness Of Breath folic acid 1 mg tablet 1 mg PO QAM 05/09/18 01/12/23 omeprazole 20 mg capsule,delayed 20 mg PO BID 05/09/18 01/12/23 release diphenhydramine HCl 25 mg capsule 25 - 50 mg PO Q6H PRN Itching 10/23/19 01/12/23 (Benadryl) furosemide 80 mg tablet 80 mg PO BID17 10/23/19 01/12/23 atorvastatin 10 mg tablet 10 mg PO QAM 06/05/20 01/12/23 gabapentin 600 mg tablet 600 mg PO TID 06/05/20 01/12/23 multivitamin 1 tab PO QAM 06/05/20 01/12/23 spironolactone 50 mg tablet 50 mg PO BID 06/05/20 01/12/23 buspirone 15 mg tablet 15 mg PO BID 10/02/22 01/12/23 fluoxetine 20 mg capsule 20 mg PO HS 10/02/22 01/12/23 fluticasone 500 mcg-salmeterol 50 1 inh inhalation BID 10/02/22 01/12/23 mcg/dose blistr powdr for inhalation metformin 1,000 mg tablet 1,000 mg PO BID 10/02/22 01/12/23 montelukast 10 mg tablet 10 mg PO DAILY 10/02/22 01/12/23 hydroxyzine HCl 10 mg tablet 10 mg PO Q8H PRN Itching 10/29/22 01/12/23 tiotropium bromide 2.5 2 inh inhalation DAILY 10/29/22 01/12/23 mcg/actuation mist for inhalation (Spiriva Respimat) white petrolatum-mineral oil 1 applic EXT TID PRN Skin 10/29/22 01/12/23 topical cream (Dermacerin topical Irritation cream) Previous Rx's Medication Instructions Recorded apixaban 5 mg tablet (Eliquis) 5 mg PO BID #60 tabs 10/04/22 ammonium lactate 5 % lotion 1 applic EXT BID #226 grams 10/08/22 (Lac-Hydrin Five) oxycodone-acetaminophen 5 mg-325 1 tab PO Q8H PRN pain, severe #10 11/03/22 mg tablet tabs Results & Data (ED) Vital Signs Vital Signs - 24 hr 01/12/23 09:00 01/12/23 09:52 01/12/23 09:57 Temperature 36.4 C L Temperature Source Temporal Artery Scan Pulse Rate 81 66 Pulse Rate [Apical] 66 Pulse Rhythm Regular Pulse Strength Normal Respiratory Rate 18 Respiratory Effort / Characteristics Non-Labored Spontaneous Respiratory Depth Normal Respiratory Pattern Regular Blood Pressure 156/88 H Blood Pressure [Right Arm] 148/84 H Blood Pressure Mean 110 Blood Pressure Mean [Right Arm] 105 Blood Pressure Position Sitting Pulse Oximetry 99 96 Oxygen Delivery Method Room Air Room Air Sepsis Recent Fever Within 48 Hours No Sepsis New/Unexplained Change in Mental Status No Sepsis Action Taken by Nursing No Action Required Laboratory Data 01/12/23 09:50 01/12/23 09:50 Lab Results 01/12/23 01/12/23 01/12/23 Range/Units 09:50 09:50 09:50 WBC 4.51 L (4.8-10.8) K/ul RBC 4.45 L (4.70-6.10) M/uL Hgb 12.1 L (14.0-18.0) g/dl Hct 37.5 L (42.0-52.0) % MCV 84.3 (80.0-100.0) fL MCH 27.2 (25.0-34.0) pg MCHC 32.3 (32.0-36.0) g/dL RDW Std Deviation 43.9 (36.4-46.3) fL RDW Coeff of Kip 14.4 (11.5-14.5) % Plt Count 194 (130-400) K/uL MPV 9.9 (9.4-12.4) fL Immature Gran % (Auto) 0.2 % Neut % (Auto) 67.9 % Lymph % (Auto) 23.9 % Canyon % (Auto) 5.5 % Eos % (Auto) 1.6 % Baso % (Auto) 0.9 % Neut # (Auto) 3.06 (1.40-6.50) K/uL Lymph # (Auto) 1.08 L (1.2-3.4) K/uL Canyon # (Auto) 0.25 (0.11-0.59) K/uL Eos # (Auto) 0.07 (0-0.50) K/uL Baso # (Auto) 0.04 (0-0.2) K/uL Immature Gran # (Auto) 0.01 (0.01-0.20) K/uL PT 10.7 (9.0-12.0) Seconds INR 1.0 (0.9-1.1) Sodium 136 (136-145) mmol/L Potassium 3.9 (3.5-5.1) mmol/L Chloride 107 (98-107) mmol/L Carbon Dioxide 23 (21-32) mmol/L Anion Gap 6 (3-11) BUN 8 (6-23) mg/dl Creatinine 0.74 (0.6-1.4) mg/dl Est Cr Clr Drug Dosing 142.3 ml/min Est GFR ( Amer) 126.4 ml/min Est GFR (Non-Af Amer) 109.1 ml/min BUN/Creatinine Ratio 10.8 (10-20) Glucose 113 H (70-99(Fasting)) mg/dl Lactate (0.4-2.0) mmol/L Calcium 9.2 (8.6-10.3) mg/dl Total Bilirubin 0.4 (0.2-1.0) mg/dl AST 12 L (13-39) U/L ALT 12 (7-52) U/L Alkaline Phosphatase 75 (34-104) U/L C-Reactive Protein 2.22 H (0-0.5) mg/dl Total Protein 7.7 (6.0-8.3) gm/dl Albumin 3.9 (3.4-5.0) gm/dl Globulin 3.8 (2.5-4.0) gm/dl Albumin/Globulin Ratio 1.0 (0.9-2) Procalcitonin (0-0.5) ng/ml SARS-CoV-2, RNA, NAAT (NEGATIVE) 01/12/23 01/12/23 01/12/23 Range/Units 09:50 09:50 09:50 WBC (4.8-10.8) K/ul RBC (4.70-6.10) M/uL Hgb (14.0-18.0) g/dl Hct (42.0-52.0) % MCV (80.0-100.0) fL MCH (25.0-34.0) pg MCHC (32.0-36.0) g/dL RDW Std Deviation (36.4-46.3) fL RDW Coeff of Kip (11.5-14.5) % Plt Count (130-400) K/uL MPV (9.4-12.4) fL Immature Gran % (Auto) % Neut % (Auto) % Lymph % (Auto) % Canyon % (Auto) % Eos % (Auto) % Baso % (Auto) % Neut # (Auto) (1.40-6.50) K/uL Lymph # (Auto) (1.2-3.4) K/uL Canyon # (Auto) (0.11-0.59) K/uL Eos # (Auto) (0-0.50) K/uL Baso # (Auto) (0-0.2) K/uL Immature Gran # (Auto) (0.01-0.20) K/uL PT (9.0-12.0) Seconds INR (0.9-1.1) Sodium (136-145) mmol/L Potassium (3.5-5.1) mmol/L Chloride (98-107) mmol/L Carbon Dioxide (21-32) mmol/L Anion Gap (3-11) BUN (6-23) mg/dl Creatinine (0.6-1.4) mg/dl Est Cr Clr Drug Dosing ml/min Est GFR ( Amer) ml/min Est GFR (Non-Af Amer) ml/min BUN/Creatinine Ratio (10-20) Glucose (70-99(Fasting)) mg/dl Lactate 1.0 (0.4-2.0) mmol/L Calcium (8.6-10.3) mg/dl Total Bilirubin (0.2-1.0) mg/dl AST (13-39) U/L ALT (7-52) U/L Alkaline Phosphatase (34-104) U/L C-Reactive Protein (0-0.5) mg/dl Total Protein (6.0-8.3) gm/dl Albumin (3.4-5.0) gm/dl Globulin (2.5-4.0) gm/dl Albumin/Globulin Ratio (0.9-2) Procalcitonin < 0.05 (0-0.5) ng/ml SARS-CoV-2, RNA, NAAT NEGATIVE (NEGATIVE) Administered Medications Discontinued Medications Diphenhydramine HCl (Diphenhydramine 50 Mg/Ml Vial) 25 mg IV NOW STA Stop: 01/12/23 11:38 Last Admin: 01/12/23 11:41 Dose: 25 mg Documented By: MES Hydromorphone HCl (Hydromorphone Inj 1 Mg/Ml Syringe) 1 mg IV NOW STA Stop: 01/12/23 09:16 Last Admin: 01/12/23 09:35 Dose: 1 mg Documented By: MES Sodium Chloride (Nss 1000ml) 1,000 mls @ 999 mls/hr IV .Q1H1M STA Stop: 01/12/23 10:15 Last Infusion: 01/12/23 10:49 Dose: 0 mls/hr Documented By: Admin: 01/12/23 09:47 Dose: 999 mls/hr Documented By: RUSSELL Vancomycin HCl 2,000 mg/ (Sodium Chloride) 540 mls @ 200 mls/hr IV NOW ONE Stop: 01/12/23 11:56 Last Admin: 01/12/23 10:06 Dose: 200 mls/hr Documented By: RUSSELL Cefepime HCl (Maxipime) 2,000 mg in 20 mls @ 5 mls/min IV NOW STA; Protocol Stop: 01/12/23 09:18 Last Admin: 01/12/23 09:47 Dose: 5 mls/min Documented By: RUSSELL Discharge Plan Visit Data Chief Complaint: Ankle Pain Stated Complaint: left ankle infecton ED Provider: Gerson Henao Discharge Problem: Open wound of both lower extremities with complication, Venous ulcers of both lower extremities, History of MRSA infection, History of infection due to drug- resistant organism Patient Disposition: Being Evaluated by Hospitalist Forms Stand Alone Forms: [facility] Prescriptions Prescriptions: No Action omeprazole 20 mg Capsule,Delayed Release(Dr/Ec) 20 mg PO BID folic acid 1 mg Tablet 1 mg PO QAM albuterol sulfate [Ventolin HFA] 90 mcg/actuation Hfa Aerosol Inhaler 1 puff INHALATION Q6H PRN (Reason: Shortness Of Breath) furosemide 80 mg tablet 80 mg PO BID17 diphenhydramine HCl [Benadryl] 25 mg capsule 25 - 50 mg PO Q6H PRN (Reason: Itching) multivitamin Tablet 1 tab PO QAM gabapentin 600 mg Tablet 600 mg PO TID atorvastatin 10 mg Tablet 10 mg PO QAM spironolactone 50 mg Tablet 50 mg PO BID Rx Instructions: Patient takes second dose at 4:00pm metformin 1,000 mg tablet 1,000 mg PO BID fluticasone propion-salmeterol 500-50 mcg/dose blister with device 1 inh INHALATION BID montelukast 10 mg tablet 10 mg PO DAILY fluoxetine 20 mg capsule 20 mg PO HS buspirone 15 mg tablet 15 mg PO BID Eliquis 5 mg tablet 5 mg PO BID Qty: 60 0RF Lac-Hydrin Five 5 % Lotion 1 applic EXT BID Qty: 226 2RF hydroxyzine HCl 10 mg tablet 10 mg PO Q8H PRN (Reason: Itching) Spiriva Respimat 2.5 mcg/actuation mist 2 inh INHALATION DAILY Dermacerin Cream 1 applic EXT TID PRN (Reason: Skin Irritation) oxycodone-acetaminophen 5-325 mg tablet 1 tab PO Q8H PRN (Reason: pain, severe) Qty: 10 0RF Referrals Referrals: Risa Foreman MD [Primary Care Provider] -
[2023-01-12 10:26] LABS: Basophils # (auto) 0.04 K/uL (0-0.2); Basophils % (auto) 0.9 %; Eosinophils # (auto) 0.07 K/uL (0-0.50); Eosinophils % (auto) 1.6 %; Hematocrit (blood only) 37.5 % (42.0-52.0); Hemoglobin 12.1 g/dl (14.0-18.0); Immature Granulocytes # (auto) 0.01 K/uL (0.01-0.20); Immature Granulocytes % (auto) 0.2 %; Lymphocytes # (auto) 1.08 K/uL (1.2-3.4); Lymphocytes % (auto) 23.9 %; Mean Corpuscular Hemoglobin 27.2 pg (25.0-34.0); Mean Corpuscular Hgb Conc 32.3 g/dL (32.0-36.0); Mean Corpuscular Volume 84.3 fL (80.0-100.0); Mean Platelet Volume 9.9 fL (9.4-12.4); Monocytes # (auto) 0.25 K/uL (0.11-0.59); Monocytes % (auto) 5.5 %; Neutrophils # (auto) 3.06 K/uL (1.40-6.50); Neutrophils % (auto) 67.9 %; Platelet Count 194 K/uL (130-400); RDW Coefficient of Variation 14.4 % (11.5-14.5); RDW Standard Deviation 43.9 fL (36.4-46.3); Red Blood Count 4.45 M/uL (4.70-6.10); White Blood Count 4.51 K/ul (4.8-10.8)
[2023-01-12 10:38] LABS: Albumin Level 3.9 gm/dl (3.4-5.0); BUN Creatinine Ratio 10.8 (10-20); Bilirubin,Total 0.4 mg/dl (0.2-1.0); C Reactive Protein 2.22 mg/dl (0-0.5); Calcium 9.2 mg/dl (8.6-10.3); Creatinine Clr Calc Pharmacy 142.3 ml/min; Est GFR (African American) 126.4 ml/min; Est GFR (Non-African American) 109.1 ml/min; Globulin 3.8 gm/dl (2.5-4.0); Potassium 3.9 mmol/L (3.5-5.1); Total Protein 7.7 gm/dl (6.0-8.3)
[2023-01-12 10:50] LABS: Prothrombin Time 10.7 Seconds (9.0-12.0)
[2023-01-12] MEDS ORDERED: diphenhydrAMINE 50 MG/ML VIAL IV STA (11:37)
--- NOTE | 2023-01-12 13:17 | History & Physical Report ---
Date of Service January 12, 2023 Assessment & Plan (1) Cellulitis of left leg: (2) Open wound of both lower extremities with complication: (3) Depression with anxiety: (4) Venous ulcers of both lower extremities: (5) Chronic deep vein thrombosis (DVT): (6) Chronic narcotic use: (7) GERD (gastroesophageal reflux disease): (8) COPD (chronic obstructive pulmonary disease): (9) Cirrhosis: (10) Type 2 diabetes mellitus: Plan Pt is a 47yo gentleman with a PMHx of DMII with neuropathy (controlled on last check), chronic venous stasis with lower extremity edema, Hx of DVT, Chronic pain, GERD, asthma/COPD, alcoholic cirrhosis, HLD, Mood disturbance who presents for evaluation of lower extremity wounds. Open lower extremity wounds in setting of Chronic Venous stasis changes, DMII Cellulitis of lower extremity -Pt afebrile with normal WBC, normal lactate and procal, elevated CRP -pending blood cultures, wound culture -No concern for sepsis at this time. However, will continue broad spectrum antibiotics given pt's past wound culture Hx, consider narrowing based on current cultures. -Repeat MRI ordered for LLE to r/o osteomyelitis -Wound consult -PT/OT DMII- hold home metformin, ISS while hospitalized Neuropathy/chronic pain-continue home gabapentin, narcotics. Miralax and colace ordered for constipation as needed. Edema/Alcoholic cirrhosis- continue home lasix, spironolactone, folic acid Hx of DVT- continue home Eliquis GERD- continue home ppi asthma/copd- continue home inhalers, singulair Mood disorder- continue home buspar, hydroxyzine, fluoxetine HLD- continue home statin Diet: DMII DVT prophylaxis: on home Eliquis Code Status: Full code Dispo: Med/Surg History of Present Illness Chief Complaint: ankle pain Primary Care Provider: Risa Foreman MD History obtained from patient and Epic Records. Pt is a 47yo gentleman with a PMHx of DMII with neuropathy (controlled on last check), chronic venous stasis with lower extremity edema, Hx of DVT, Chronic pain, GERD, asthma/COPD, alcoholic cirrhosis, HLD, Mood disturbance who presents for evaluation of lower extremity wounds. States that he started with fevers and chills over the weekend, about 6 days ago. Presented to [place] ED and chart review there showed that xrays done there did not show signs of osteomyelitis. Procalcitonin and lactate were within normal limits and blood cultures there with NGTD, MRI was recommended for further evaluation. ED documentation at [facility] noted that he desired admission there but was discharged home with clindamycin and Keflex. Presenting for further evaluation at [facility], as he states that he has had continued drainage with odor and persistent fevers and chills. He notes that he has had poor outpatient follow up with the wound clinic though he notes he was told recently that he needs leg braces. Denies N/V or fevers/chills currently. In the ED at [facility], WBC was wnl with an elevated CRP. Lactate and procalcitonin were again wnl. MRI of the lower extremities from October 2022 did not show osteomyelitis at that time. Blood cultures as well as wound cultures were obtained by the ED and are pending. Started on Vancomycin and Cefepime in the ED for failed outpatient treatment and recommending admission for wound care and IV antibiotics given the patient's history of MRSA infection and resistance in the past to various antibiotics. Allergies Allergy/AdvReac Type Severity Reaction Status Date / Time peas Allergy Severe Anaphylaxis Verified 01/12/23 10:36 sulfamethoxazole Allergy Intermediate hives Verified 01/12/23 10:36 trimethoprim Allergy Intermediate hives Verified 01/12/23 10:36 tuna Allergy Severe anaphylaxis Uncoded 01/12/23 10:36 Home Medications Medication Instructions Recorded Confirmed Type albuterol sulfate 90 mcg/actuation 1 puff inhalation Q6H PRN 05/09/18 01/12/23 History aerosol inhaler (Ventolin HFA) Shortness Of Breath folic acid 1 mg tablet 1 mg PO QAM 05/09/18 01/12/23 History omeprazole 20 mg capsule,delayed 20 mg PO BID 05/09/18 01/12/23 History release diphenhydramine HCl 25 mg capsule 25 - 50 mg PO Q6H PRN Itching 10/23/19 01/12/23 History (Benadryl) furosemide 80 mg tablet 80 mg PO BID17 10/23/19 01/12/23 History atorvastatin 10 mg tablet 10 mg PO QAM 06/05/20 01/12/23 History gabapentin 600 mg tablet 600 mg PO TID 06/05/20 01/12/23 History multivitamin 1 tab PO QAM 06/05/20 01/12/23 History spironolactone 50 mg tablet 50 mg PO BID 06/05/20 01/12/23 History buspirone 15 mg tablet 15 mg PO BID 10/02/22 01/12/23 History fluoxetine 20 mg capsule 20 mg PO HS 10/02/22 01/12/23 History fluticasone 500 mcg-salmeterol 50 1 inh inhalation BID 10/02/22 01/12/23 History mcg/dose blistr powdr for inhalation metformin 1,000 mg tablet 1,000 mg PO BID 10/02/22 01/12/23 History montelukast 10 mg tablet 10 mg PO DAILY 10/02/22 01/12/23 History apixaban 5 mg tablet (Eliquis) 5 mg PO BID #60 tabs 10/04/22 01/12/23 Rx ammonium lactate 5 % lotion 1 applic EXT BID #226 grams 10/08/22 01/12/23 Rx (Lac-Hydrin Five) hydroxyzine HCl 10 mg tablet 10 mg PO Q8H PRN Itching 10/29/22 01/12/23 History tiotropium bromide 2.5 2 inh inhalation DAILY 10/29/22 01/12/23 History mcg/actuation mist for inhalation (Spiriva Respimat) white petrolatum-mineral oil 1 applic EXT TID PRN Skin 10/29/22 01/12/23 History topical cream (Dermacerin topical Irritation cream) oxycodone-acetaminophen 5 mg-325 1 tab PO Q8H PRN pain, severe #10 11/03/22 01/12/23 Rx mg tablet tabs Past Med/Surg History Medical History (Updated 01/12/23 @ 12:49 by Gerson Henao M.D.) Anxiety and depression Asthma USED RESCUE INHALER TODAY Blood clotting disorder ? NAME Cellulitis BILAT LEGS (WRAPS LEGS/DRY CLOTH) CURRENTLY HAS SOME OPEN WOUNDS>GOES TO WOUND CLINIC/[place] Chronic deep vein thrombosis (DVT) 2017 (HOSPITALIZED AT [facility]) Chronic narcotic use Chronic ulcer of lower extremity RT LEG ONLY OPEN WOUND AT THIS TIME Chronic venous stasis dermatitis of both lower extremities Cirrhosis Diabetes mellitus, type 2 GERD (gastroesophageal reflux disease) History of ETOH abuse QUIT 2018 HTN (hypertension) Hyperlipidemia Pulmonary embolism 13 YEARS AGO ? DETAILS Pulmonary nodule CT chest 04/12/18 - 4 mm RUL nodule, f/u 12 months Tobacco abuse Type 2 diabetes mellitus Surgical History History of anesthesia reaction WITH A-PORT INSERTION, WOKE UP IN MIDDLE OF PROCEDURE History of vascular access device APORT IN RT CHEST (IN PLACE) [place] teeth removed Family History Father ETOH abuse Cirrhosis Mother Hypercoagulable state Prothrombin Factor II Mutation, 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, boderline hyperhomocystemia Social History Smoking Status: Current every day smoker Tobacco Type: Cigarettes Cigarettes Per Day: 3; Second Hand Exposure: Yes; Do You Dip or Chew Tobacco: No; Hx Alcohol Use: Yes Alcohol type: beer Alcohol Intake Frequency Comment: Pt reports quit drinking end of 07/2018 Hx Substance Use: No Preferred Language: Colombian Communication Ability: Effective Visual Impairment: No Limitations Hearing Ability: Normal Disc Sander Required: No Beliefs That Will Affect Care: None marital status: Current Living Situation: Significant Other How many Children do You have: 0 Feels Safe at Home: Yes Assistive Devices: None Review of Systems Review of Systems: All systems reviewed & are unremarkable except as noted in HPI & below Physical Exam Physical Exam: General: Alert, oriented. No acute distress Skin: Superficial open wound near ankle on right lower extremity. On LLE, near left ankle noted deeper crater-like wound with yellowish red drainage on wound dressing. Psych: Appropriate mood and affect Neuro: No gross deficits HEENT: NC/AT Chest: Nontender to palpation. CV: RRR, Normal s1, s2. No murmurs appreciated Resp: Breath sounds clear bilaterally, no increased effort of breathing. Abdomen: Soft Extremities: chronic venous stasis changes noted on lower extremities bilaterally. Results & Data Results & Data Vital Signs (Past 12 Hours) Vital Signs Temp Pulse Pulse Resp BP BP Pulse Ox 01/12/23 09:57 66 148/84 H 96 01/12/23 09:52 66 01/12/23 09:00 36.4 C L 81 18 156/88 H 99 O2 Del Method 01/12/23 09:57 Room Air 01/12/23 09:52 01/12/23 09:00 Room Air Code Status & VTE Plan VTE Prophylaxis Plan VTE Prophylaxis will be ordered: Yes (5) Chronic deep vein thrombosis (DVT) Affected thrombotic vein of extremity: unspecified vein of extremity DVT location: lower extremity Laterality: right Qualified Code(s): I82.501 - Chronic embolism and thrombosis of unspecified deep veins of right lower extremity (7) GERD (gastroesophageal reflux disease) Esophagitis presence: esophagitis presence not specified Qualified Code(s): K21.9 - Gastro-esophageal reflux disease without esophagitis (8) COPD (chronic obstructive pulmonary disease) COPD type: unspecified COPD Qualified Code(s): J44.9 - Chronic obstructive pulmonary disease, unspecified (9) Cirrhosis Hepatic cirrhosis type: alcoholic cirrhosis Ascites presence: unspecified Qualified Code(s): K70.30 - Alcoholic cirrhosis of liver without ascites (10) Type 2 diabetes mellitus 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
[2023-01-12] MEDS ORDERED: GLUCOSE 40% GEL 15 GM TUBE PO PRN (14:15)
[2023-01-12] MEDS ORDERED: POLYETHYLENE (MIRALAX) 17 GM PACK PO PRN (14:15)
[2023-01-12] MEDS ORDERED: ALBUTEROL HFA 8 GM INHALER INH PRN (14:15)
[2023-01-12] MEDS ORDERED: GLUCOSE 10 TAB/TUBE PO PRN (14:15)
[2023-01-12] MEDS ORDERED: CARBOHYDRATES FOR HYPOGLYCEMIA PO PRN (14:15)
[2023-01-12] MEDS ORDERED: GLUCAGON FOR INJ 1 MG VIAL SQ PRN (14:15)
[2023-01-12] MEDS ORDERED: DOCUSATE SODIUM 100 MG CAP PO PRN (14:15)
[2023-01-12] MEDS ORDERED: DEXTROSE 50% 50 ML SYRINGE IV PRN (14:15)
--- NOTE | 2023-01-12 15:01 | Pharmacy Report ---
Pharmacy Vanc AUC Short Note - Date of Service January 12, 2023 - Assessment & Plan Assessment 47 year old M receiving vancomycin for treatment of cellulitis - h/o chronic venous stasis with edema and MRSA. Pertinent microbiologic data includes: blood and wound cultures pending. Day # 1 of antimicrobial therapy. Plan Vancomycin * AUC/CONNIE is the preferred PK/PD target for vancomycin * AUC guided dosing is effective and associated with decreased risk of nephrotoxicity compared to traditional trough targets * vancomycin 1500 mg IV q12 is predicted to achieve target AUC/CONNIE of 400-600 mg/L.hr and may be associated with a 13 % risk of nephrotoxicity * Random level ordered for: 01/14/23 Pharmacy will continue to follow and will adjust dose/frequency as necessary. Thank you.
[2023-01-12] MEDS ORDERED: GADOBUTROL 65ML VIAL IV ONE (16:56)
[2023-01-12] MEDS: oxyCODONE/ACETAMINOPHEN 5mg/325mg TAB PO PRN (17:31)
--- NOTE | 2023-01-12 17:46 | Magnetic Resonance Report ---
MR lower leg LT wo/w con HISTORY: Bilateral leg debridement. Leg ulceration. Cellulitis. Worsening left lower leg wound. r/o osteomyelitis TECHNIQUE: Multiplanar multisequence MRI of the left lower leg was performed both before and after th e intravenous administration of 10 cc of Gadavist contrast. COMPARISON STUDY: Left leg MRI 10/03/2022. FINDINGS: No fracture or dislocation within the left tibia or fibula. No loculated fluid collections to suggest an abscess. There is mild subcutaneous edema noted within the distal left lower leg. No co rtical destruction or abnormal marrow signal intensity to suggest an osteomyelitis. Diffuse fatty atr ophy throughout the majority of the muscles of the left lower leg. There is also minimal edema within the distal left lower leg musculature. This is nonspecific but could be due to a chronic denervation injury. This remains unchanged. Postcontrast sequences show no areas of abnormal enhancement. There is minimal periosteal thickening within the anterolateral aspect of the mid to distal tibia. This is similar to the prior study and may be due to chronic venous stasis. There is a 3 cm skin ulceration a long the medial aspect of the distal lower leg. IMPRESSION: 1. No fractures or evidence for osteomyelitis within the left lower leg. 2. Subcutaneous edema within the distal left lower leg. 3. Diffuse fatty atrophy of the majority of the left lower leg muscles with minimal edema distally. T his is nonspecific but could be due to a chronic denervation injury. This remains unchanged. 4. A 3 cm skin ulceration along the medial aspect of the distal lower leg. No evidence for an underly ing abscess. ACT 112: Negative or not required by law. Electronically signed by: Julian Gaitan M.D. 01/12/2023 5:45 PM
[2023-01-12] MEDS: GABAPENTIN 600 MG TAB PO SCH ×2 (18:11→20:20)
[2023-01-12] MEDS: FUROSEMIDE 80 MG TAB PO SCH (18:12)
[2023-01-12] MEDS: INSULIN ASPART PER UNIT CHARGE SC SCH ×2 (18:17→20:56)
[2023-01-12] MEDS: NICOTINE 14 MG/24 HR PATCH TD SCH (18:25)
[2023-01-12] MEDS: busPIRone 15 MG TAB PO SCH (20:19)
[2023-01-12] MEDS: FLUoxetine HCL 20 MG CAP PO SCH (20:19)
[2023-01-12] MEDS: MELATONIN 3 MG TAB PO PRN (20:19)
[2023-01-12] MEDS: PANTOprazole 40 MG TAB PO SCH (20:20)
[2023-01-12] MEDS: SPIRONOLACTONE 25 MG TAB PO SCH (20:20)
[2023-01-12] MEDS: APIXABAN 5 MG TABLET PO SCH (20:20)
[2023-01-12] MEDS: VANCOMYCIN HCL 1,500 MG in SODIUM CHLORIDE 0.9% 500 ML IV SCH (20:21)
[2023-01-12] MEDS: FLUTICASONE/VILANTEROL 200/25MCG 14 PUFFS/INHALER INH SCH (20:21)
[2023-01-12] MEDS: CEFEPIME 2,000 MG in SYRINGE 0 ML IV SCH (20:21)
[2023-01-12] MEDS ORDERED: HYDROmorphone INJ 0.5 MG/0.5 ML SYR IV STA (20:37)
[2023-01-12] MEDS: LANTUS PER UNIT CHARGE SQ SCH (21:04)
[2023-01-12] MEDS: HEPARIN 100 UNIT/ML 5ML FLUSH FLUSH PRN (23:09)
[2023-01-13] MEDS: oxyCODONE/ACETAMINOPHEN 5mg/325mg TAB PO PRN ×3 (05:27→20:58)
[2023-01-13 07:35] LABS: Basophils # (auto) 0.06 K/uL (0-0.2); Basophils % (auto) 1.5 %; Eosinophils # (auto) 0.06 K/uL (0-0.50); Eosinophils % (auto) 1.5 %; Hematocrit (blood only) 39.3 % (42.0-52.0); Hemoglobin 12.6 g/dl (14.0-18.0); Immature Granulocytes # (auto) 0.01 K/uL (0.01-0.20); Immature Granulocytes % (auto) 0.3 %; Lymphocytes # (auto) 0.73 K/uL (1.2-3.4); Lymphocytes % (auto) 18.4 %; Mean Corpuscular Hemoglobin 27.1 pg (25.0-34.0); Mean Corpuscular Hgb Conc 32.1 g/dL (32.0-36.0); Mean Corpuscular Volume 84.5 fL (80.0-100.0); Mean Platelet Volume 9.7 fL (9.4-12.4); Monocytes # (auto) 0.22 K/uL (0.11-0.59); Monocytes % (auto) 5.6 %; Neutrophils # (auto) 2.88 K/uL (1.40-6.50); Neutrophils % (auto) 72.7 %; Platelet Count 208 K/uL (130-400); RDW Coefficient of Variation 14.4 % (11.5-14.5); RDW Standard Deviation 44.3 fL (36.4-46.3); Red Blood Count 4.65 M/uL (4.70-6.10); White Blood Count 3.96 K/ul (4.8-10.8)
[2023-01-13 08:02] LABS: BUN Creatinine Ratio 12.5 (10-20); Calcium 9.6 mg/dl (8.6-10.3); Creatinine Clr Calc Pharmacy 131.6 ml/min; Est GFR (African American) 122.4 ml/min; Est GFR (Non-African American) 105.6 ml/min
[2023-01-13 08:25] LABS: Estimated Average Glucose 140 mg/dl; Hemoglobin A1C 6.5 % (4.5-5.6)
[2023-01-13] MEDS: INSULIN ASPART PER UNIT CHARGE SC SCH ×4 (08:53→20:57)
[2023-01-13] MEDS: LANTUS PER UNIT CHARGE SQ SCH ×2 (08:54→20:56)
[2023-01-13] MEDS: APIXABAN 5 MG TABLET PO SCH ×2 (08:55→20:43)
[2023-01-13] MEDS: ATORVASTATIN 10 MG TAB PO SCH (08:56)
[2023-01-13] MEDS: busPIRone 15 MG TAB PO SCH ×2 (08:57→20:42)
[2023-01-13] MEDS: CEFEPIME 2,000 MG in SYRINGE 0 ML IV SCH ×2 (08:58→20:42)
[2023-01-13] MEDS: VANCOMYCIN HCL 1,500 MG in SODIUM CHLORIDE 0.9% 500 ML IV SCH ×2 (09:04→20:42)
[2023-01-13] MEDS: FOLIC ACID 1 MG TAB PO SCH (09:09)
[2023-01-13] MEDS: FUROSEMIDE 80 MG TAB PO SCH ×2 (09:09→15:28)
[2023-01-13] MEDS: GABAPENTIN 600 MG TAB PO SCH ×3 (09:09→20:43)
[2023-01-13] MEDS: MULTIVITAMIN TAB PO SCH (09:10)
[2023-01-13] MEDS: MONTELUKAST SODIUM 10 MG TABLET PO SCH (09:10)
[2023-01-13] MEDS: NICOTINE 14 MG/24 HR PATCH TD SCH (09:10)
[2023-01-13] MEDS: SPIRONOLACTONE 25 MG TAB PO SCH ×2 (09:12→20:43)
[2023-01-13] MEDS: PANTOprazole 40 MG TAB PO SCH ×2 (09:12→20:42)
[2023-01-13] MEDS: UMECLIDINIUM BROMIDE 62.5MCG/BLISTER 7 PUFFS/INHALER INH SCH (09:12)
[2023-01-13] MEDS: diphenhydrAMINE Capsule 25 MG CAP PO PRN ×2 (09:16→20:58)
[2023-01-13] MEDS ORDERED: MoRPHine SULFATE 2 MG/ML CARP IV PRN ×2 (09:29→17:10)
[2023-01-13] MEDS: HEPARIN 100 UNIT/ML 5ML FLUSH FLUSH PRN ×2 (11:53→23:50)
--- NOTE | 2023-01-13 17:17 | Hospitalist Progress Note ---
Date of Service January 13, 2023 Assessment & Plan (1) Cellulitis of left leg: (2) Open wound of both lower extremities with complication: (3) Depression with anxiety: (4) Venous ulcers of both lower extremities: (5) Chronic deep vein thrombosis (DVT): (6) Chronic narcotic use: (7) GERD (gastroesophageal reflux disease): (8) COPD (chronic obstructive pulmonary disease): (9) Cirrhosis: (10) Type 2 diabetes mellitus: Plan Pt is a 47 yr male with a PMHx of DMII with neuropathy (controlled on last check), chronic venous stasis with lower extremity edema, Hx of DVT, Chronic pain, GERD, asthma/COPD, alcoholic cirrhosis, HLD, Mood disturbance who presents for evaluation of lower extremity wounds. Open lower extremity wounds in setting of Chronic Venous stasis changes, DM II Cellulitis of lower extremity --LE MRI:No fractures or evidence for osteomyelitis within the left lower leg. Subcutaneous edema within the distal left lower leg. Diffuse fatty atrophy of the majority of the left lower leg muscles with minimal edema distally. This is nonspecific but could be due to a chronic denervation injury. This remains unchanged. A 3 cm skin ulceration along the medial aspect of the distal lower leg. No evidence for an underlying abscess. -CRP 2.2 -Normal lactic acid Blood cultures pending Wound cultures pending Continue vancomycin, cefepime for now Continue wound care Neuropathy/chronic pain continue gabapentin Also on pain meds Alcoholic cirrhosis continue home lasix, spironolactone, folic acid H/O DVT continue Eliquis GERD continue PPI Asthma/COPD No signs of exacerbation continue home inhalers, Singulair Mood disorder continue buspar, hydroxyzine, fluoxetine HLD On statin DM II HbA1c 6.5 Hold PO meds Continue insulin while hospitalized for protocol Monitor BGs DVT Px: Eliquis Code Status: Full code Admission and Anticipated Discharge Date Admission Date: January 12, 2023 Subjective Patient is seen and examined at bedside States having left leg wound pain Also feels tired Denies any chest pain, dyspnea, dizziness, nausea, abdominal pain No other complaints Review of Systems Review of Systems: All systems reviewed & are unremarkable except as noted in Subjective Physical Exam Physical Exam: Physical Exam: Vitals signs as noted above General Appearance:Moderately built and nourished, no apparent distress Head: normocephalic, Atraumatic Eyes: normal inspection, EOMI Neck: supple, Trachea midline Respiratory/Chest: Normal breath sounds, CTA, No accessory muscle use Cardiovascular: S1, S2, No murmur Abdomen/GI:Soft, Non tender, Bowel sounds present Extremities/Musculoskeletal:normal inspection, B/L LE leg wounds in dressing, 1+ pedal edema Neurologic/Psych:AAOX3, grossly no focal neurological deficits Skin: normal color, warm Results & Data Results & Data Vital Signs (Past 12 Hours) Vital Signs Temp Pulse Resp BP Pulse Ox O2 Del Method 01/13/23 15:53 36.6 C 76 16 114/71 95 Room Air 01/13/23 09:17 Room Air 01/13/23 07:48 36.4 C L 69 16 108/75 95 Room Air Laboratory Results Short CBC 01/13/23 Range/Units 07:00 WBC 3.96 L (4.8-10.8) K/ul Hgb 12.6 L (14.0-18.0) g/dl Hct 39.3 L (42.0-52.0) % Plt Count 208 (130-400) K/uL BMP 01/13/23 07:00 Sodium 137 Potassium 4.0 Chloride 106 Carbon Dioxide 26 BUN 10 Creatinine 0.80 Glucose 120 H Calcium 9.6 (5) Chronic deep vein thrombosis (DVT) Affected thrombotic vein of extremity: unspecified vein of extremity DVT location: lower extremity Laterality: right Qualified Code(s): I82.501 - Chronic embolism and thrombosis of unspecified deep veins of right lower extremity (7) GERD (gastroesophageal reflux disease) Esophagitis presence: esophagitis presence not specified Qualified Code(s): K21.9 - Gastro-esophageal reflux disease without esophagitis (8) COPD (chronic obstructive pulmonary disease) COPD type: unspecified COPD Qualified Code(s): J44.9 - Chronic obstructive pulmonary disease, unspecified (9) Cirrhosis Hepatic cirrhosis type: alcoholic cirrhosis Ascites presence: unspecified Qualified Code(s): K70.30 - Alcoholic cirrhosis of liver without ascites (10) Type 2 diabetes mellitus Diabetes mellitus snf insulin use: without snf use
[2023-01-13] MEDS: FLUTICASONE/VILANTEROL 200/25MCG 14 PUFFS/INHALER INH SCH (20:42)
[2023-01-13] MEDS: FLUoxetine HCL 20 MG CAP PO SCH (20:43)
[2023-01-13] MEDS: MELATONIN 3 MG TAB PO PRN (20:58)
[2023-01-14] MEDS ORDERED: VANCOMYCIN LEVEL ONE (07:30)
[2023-01-14] MEDS: CEFEPIME 2,000 MG in SYRINGE 0 ML IV SCH ×2 (07:35→20:14)
[2023-01-14] MEDS: GABAPENTIN 600 MG TAB PO SCH ×3 (07:40→20:15)
[2023-01-14] MEDS: APIXABAN 5 MG TABLET PO SCH ×2 (07:40→20:16)
[2023-01-14] MEDS: SPIRONOLACTONE 25 MG TAB PO SCH ×2 (07:40→20:16)
[2023-01-14] MEDS: NICOTINE 14 MG/24 HR PATCH TD SCH (07:41)
[2023-01-14] MEDS: PANTOprazole 40 MG TAB PO SCH ×2 (07:41→20:16)
[2023-01-14] MEDS: busPIRone 15 MG TAB PO SCH ×2 (07:41→20:16)
[2023-01-14] MEDS: ATORVASTATIN 10 MG TAB PO SCH (07:41)
[2023-01-14] MEDS: MULTIVITAMIN TAB PO SCH (07:41)
[2023-01-14] MEDS: UMECLIDINIUM BROMIDE 62.5MCG/BLISTER 7 PUFFS/INHALER INH SCH (07:42)
[2023-01-14] MEDS: FUROSEMIDE 80 MG TAB PO SCH ×2 (07:42→16:45)
[2023-01-14] MEDS: MONTELUKAST SODIUM 10 MG TABLET PO SCH (07:42)
[2023-01-14] MEDS: FOLIC ACID 1 MG TAB PO SCH (07:42)
[2023-01-14 07:44] LABS: Basophils # (auto) 0.05 K/uL (0-0.2); Basophils % (auto) 0.9 %; Eosinophils # (auto) 0.06 K/uL (0-0.50); Eosinophils % (auto) 1.1 %; Hematocrit (blood only) 40.3 % (42.0-52.0); Hemoglobin 13.1 g/dl (14.0-18.0); Immature Granulocytes # (auto) 0.01 K/uL (0.01-0.20); Immature Granulocytes % (auto) 0.2 %; Lymphocytes # (auto) 0.87 K/uL (1.2-3.4); Lymphocytes % (auto) 16.4 %; Mean Corpuscular Hemoglobin 27.4 pg (25.0-34.0); Mean Corpuscular Hgb Conc 32.5 g/dL (32.0-36.0); Mean Corpuscular Volume 84.3 fL (80.0-100.0); Mean Platelet Volume 9.5 fL (9.4-12.4); Monocytes # (auto) 0.32 K/uL (0.11-0.59); Neutrophils # (auto) 3.99 K/uL (1.40-6.50); Neutrophils % (auto) 75.4 %; Platelet Count 225 K/uL (130-400); RDW Coefficient of Variation 14.3 % (11.5-14.5); RDW Standard Deviation 43.8 fL (36.4-46.3); Red Blood Count 4.78 M/uL (4.70-6.10)
[2023-01-14 07:58] LABS: BUN Creatinine Ratio 24.1 (10-20); Calcium 9.3 mg/dl (8.6-10.3); Creatinine Clr Calc Pharmacy 126.9 ml/min; Est GFR (African American) 120.6 ml/min; Potassium 3.8 mmol/L (3.5-5.1)
[2023-01-14] MEDS: INSULIN ASPART PER UNIT CHARGE SC SCH ×4 (08:48→20:14)
[2023-01-14] MEDS: LANTUS PER UNIT CHARGE SQ SCH ×2 (08:48→20:14)
[2023-01-14] MEDS: VANCOMYCIN HCL 1,500 MG in SODIUM CHLORIDE 0.9% 500 ML IV SCH (09:20)
[2023-01-14] MEDS: oxyCODONE/ACETAMINOPHEN 5mg/325mg TAB PO PRN ×2 (09:32→16:43)
--- NOTE | 2023-01-14 17:13 | Hospitalist Progress Note ---
Date of Service January 14, 2023 Assessment & Plan (1) Cellulitis of left leg: (2) Open wound of both lower extremities with complication: (3) Depression with anxiety: (4) Venous ulcers of both lower extremities: (5) Chronic deep vein thrombosis (DVT): (6) Chronic narcotic use: (7) GERD (gastroesophageal reflux disease): (8) COPD (chronic obstructive pulmonary disease): (9) Cirrhosis: (10) Type 2 diabetes mellitus: Plan Pt is a 47 yr male with a PMHx of DMII with neuropathy (controlled on last check), chronic venous stasis with lower extremity edema, Hx of DVT, Chronic pain, GERD, asthma/COPD, alcoholic cirrhosis, HLD, Mood disturbance who presents for evaluation of lower extremity wounds. Open lower extremity wounds in setting of Chronic Venous stasis changes, DM II Cellulitis of lower extremity --LE MRI:No fractures or evidence for osteomyelitis within the left lower leg. Subcutaneous edema within the distal left lower leg. Diffuse fatty atrophy of the majority of the left lower leg muscles with minimal edema distally. This is nonspecific but could be due to a chronic denervation injury. This remains unchanged. A 3 cm skin ulceration along the medial aspect of the distal lower leg. No evidence for an underlying abscess. -CRP 2.2 -Normal lactic acid Blood cultures: No growth to date Wound cultures: Pseudomonas Continue vancomycin, cefepime >> cefepime only Continue wound care Needs follow-up with wound clinic upon discharge Orthotics consulted Neuropathy/chronic pain continue gabapentin Also on pain meds Alcoholic cirrhosis continue home lasix, spironolactone, folic acid H/O DVT continue Eliquis GERD continue PPI Asthma/COPD No signs of exacerbation continue home inhalers, Singulair Mood disorder continue buspar, hydroxyzine, fluoxetine HLD On statin DM II HbA1c 6.5 Hold PO meds Continue insulin while hospitalized for protocol Monitor BGs DVT Px: Eliquis Code Status: Full code Admission and Anticipated Discharge Date Admission Date: January 12, 2023 Subjective Patient is seen and examined at bedside Left leg wound pain is better today No new complaints Still feels tired Denies any chest pain, dyspnea, dizziness, nausea, abdominal pain Review of Systems Review of Systems: All systems reviewed & are unremarkable except as noted in Subjective Physical Exam Physical Exam: Physical Exam: Vitals signs as noted above General Appearance:Moderately built and nourished, no apparent distress Head: normocephalic, Atraumatic Eyes: normal inspection, EOMI Neck: supple, Trachea midline Respiratory/Chest: Normal breath sounds, CTA, No accessory muscle use Cardiovascular: S1, S2, No murmur Abdomen/GI:Soft, Non tender, Bowel sounds present Extremities/Musculoskeletal:normal inspection, B/L LE leg wounds in dressing, 1+ pedal edema Neurologic/Psych:AAOX3, grossly no focal neurological deficits Skin: normal color, warm Results & Data Results & Data Vital Signs (Past 12 Hours) Vital Signs Temp Pulse Resp BP Pulse Ox O2 Del Method 01/14/23 15:34 36.9 C 82 18 112/72 92 Room Air 01/14/23 08:00 36.6 C 67 20 124/78 94 Room Air 01/14/23 07:50 Room Air Laboratory Results Short CBC 01/14/23 Range/Units 07:24 WBC 5.30 (4.8-10.8) K/ul Hgb 13.1 L (14.0-18.0) g/dl Hct 40.3 L (42.0-52.0) % Plt Count 225 (130-400) K/uL BMP 01/14/23 07:24 Sodium 138 Potassium 3.8 Chloride 104 Carbon Dioxide 29 BUN 20 Creatinine 0.83 Glucose 129 H Calcium 9.3 (5) Chronic deep vein thrombosis (DVT) Affected thrombotic vein of extremity: unspecified vein of extremity DVT location: lower extremity Laterality: right Qualified Code(s): I82.501 - Chronic embolism and thrombosis of unspecified deep veins of right lower extremity (7) GERD (gastroesophageal reflux disease) Esophagitis presence: esophagitis presence not specified Qualified Code(s): K21.9 - Gastro-esophageal reflux disease without esophagitis (8) COPD (chronic obstructive pulmonary disease) COPD type: unspecified COPD Qualified Code(s): J44.9 - Chronic obstructive pulmonary disease, unspecified (9) Cirrhosis Hepatic cirrhosis type: alcoholic cirrhosis Ascites presence: unspecified Qualified Code(s): K70.30 - Alcoholic cirrhosis of liver without ascites (10) Type 2 diabetes mellitus Diabetes mellitus snf insulin use: without terminal gauger use
[2023-01-14] MEDS: diphenhydrAMINE Capsule 25 MG CAP PO PRN (20:13)
[2023-01-14] MEDS: MELATONIN 3 MG TAB PO PRN (20:13)
[2023-01-14] MEDS: HEPARIN 100 UNIT/ML 5ML FLUSH FLUSH PRN (20:14)
[2023-01-14] MEDS: FLUTICASONE/VILANTEROL 200/25MCG 14 PUFFS/INHALER INH SCH (20:14)
[2023-01-14] MEDS: FLUoxetine HCL 20 MG CAP PO SCH (20:15)
[2023-01-15] MEDS: oxyCODONE/ACETAMINOPHEN 5mg/325mg TAB PO PRN ×4 (01:11→20:07)
[2023-01-15] MEDS: SPIRONOLACTONE 25 MG TAB PO SCH ×2 (07:17→20:09)
[2023-01-15] MEDS: NICOTINE 14 MG/24 HR PATCH TD SCH (07:17)
[2023-01-15] MEDS: busPIRone 15 MG TAB PO SCH ×2 (07:17→20:09)
[2023-01-15] MEDS: ATORVASTATIN 10 MG TAB PO SCH (07:18)
[2023-01-15] MEDS: GABAPENTIN 600 MG TAB PO SCH ×3 (07:18→20:08)
[2023-01-15] MEDS: FOLIC ACID 1 MG TAB PO SCH (07:18)
[2023-01-15] MEDS: PANTOprazole 40 MG TAB PO SCH ×2 (07:18→20:09)
[2023-01-15] MEDS: APIXABAN 5 MG TABLET PO SCH ×2 (07:18→20:09)
[2023-01-15] MEDS: MULTIVITAMIN TAB PO SCH (07:18)
[2023-01-15] MEDS: UMECLIDINIUM BROMIDE 62.5MCG/BLISTER 7 PUFFS/INHALER INH SCH (07:18)
[2023-01-15] MEDS: MONTELUKAST SODIUM 10 MG TABLET PO SCH (07:18)
[2023-01-15] MEDS: CEFEPIME 2,000 MG in SYRINGE 0 ML IV SCH ×2 (07:19→20:08)
[2023-01-15 07:36] LABS: Basophils # (auto) 0.04 K/uL (0-0.2); Basophils % (auto) 0.8 %; Eosinophils # (auto) 0.09 K/uL (0-0.50); Eosinophils % (auto) 1.7 %; Hematocrit (blood only) 40.6 % (42.0-52.0); Hemoglobin 13.5 g/dl (14.0-18.0); Immature Granulocytes # (auto) 0.02 K/uL (0.01-0.20); Immature Granulocytes % (auto) 0.4 %; Lymphocytes # (auto) 1.01 K/uL (1.2-3.4); Mean Corpuscular Hemoglobin 27.5 pg (25.0-34.0); Mean Corpuscular Hgb Conc 33.3 g/dL (32.0-36.0); Mean Corpuscular Volume 82.7 fL (80.0-100.0); Monocytes # (auto) 0.37 K/uL (0.11-0.59); Neutrophils # (auto) 3.78 K/uL (1.40-6.50); Neutrophils % (auto) 71.1 %; Platelet Count 228 K/uL (130-400); RDW Coefficient of Variation 14.3 % (11.5-14.5); RDW Standard Deviation 42.9 fL (36.4-46.3); Red Blood Count 4.91 M/uL (4.70-6.10); White Blood Count 5.31 K/ul (4.8-10.8)
[2023-01-15] MEDS: HEPARIN 100 UNIT/ML 5ML FLUSH FLUSH PRN ×2 (07:39→20:08)
[2023-01-15 07:46] LABS: BUN Creatinine Ratio 32.6 (10-20); Calcium 9.2 mg/dl (8.6-10.3); Creatinine Clr Calc Pharmacy 114.5 ml/min; Est GFR (African American) 113.6 ml/min; Potassium 3.5 mmol/L (3.5-5.1)
[2023-01-15] MEDS: FUROSEMIDE 80 MG TAB PO SCH ×2 (07:47→15:55)
[2023-01-15] MEDS: MoRPHine SULFATE 2 MG/ML CARP IV PRN (08:16)
[2023-01-15] MEDS: LANTUS PER UNIT CHARGE SQ SCH ×2 (08:56→20:10)
[2023-01-15] MEDS: INSULIN ASPART PER UNIT CHARGE SC SCH ×4 (08:57→20:22)
[2023-01-15] MEDS: diphenhydrAMINE Capsule 25 MG CAP PO PRN ×2 (10:20→20:07)
[2023-01-15] MEDS ORDERED: FLUCONAZOLE 50 MG TAB PO ONE (13:15)
[2023-01-15] MEDS: CLOTRIMAZOLE 1% CR 15 GM TUBE EXT SCH ×2 (15:54→20:10)
--- NOTE | 2023-01-15 16:59 | Hospitalist Progress Note ---
Date of Service January 15, 2023 Assessment & Plan (1) Cellulitis of left leg: (2) Open wound of both lower extremities with complication: (3) Depression with anxiety: (4) Venous ulcers of both lower extremities: (5) Chronic deep vein thrombosis (DVT): (6) Chronic narcotic use: (7) GERD (gastroesophageal reflux disease): (8) COPD (chronic obstructive pulmonary disease): (9) Cirrhosis: (10) Type 2 diabetes mellitus: Plan Pt is a 47 yr male with a PMHx of DMII with neuropathy (controlled on last check), chronic venous stasis with lower extremity edema, Hx of DVT, Chronic pain, GERD, asthma/COPD, alcoholic cirrhosis, HLD, Mood disturbance who presents for evaluation of lower extremity wounds. Open lower extremity wounds in setting of Chronic Venous stasis changes, DM II Cellulitis of lower extremity --LE MRI:No fractures or evidence for osteomyelitis within the left lower leg. Subcutaneous edema within the distal left lower leg. Diffuse fatty atrophy of the majority of the left lower leg muscles with minimal edema distally. This is nonspecific but could be due to a chronic denervation injury. This remains unchanged. A 3 cm skin ulceration along the medial aspect of the distal lower leg. No evidence for an underlying abscess. -CRP 2.2 -Normal lactic acid Blood cultures: No growth to date Wound cultures: Pseudomonas Continue vancomycin, cefepime >> cefepime only Continue wound care Needs follow-up with wound clinic upon discharge Orthotics consulted PT/OT recommends to return home Dermatophyte infection Received 1 dose of fluconazole Continue clotrimazole Neuropathy/chronic pain continue gabapentin Also on pain meds Alcoholic cirrhosis continue home lasix, spironolactone, folic acid H/O DVT continue Eliquis GERD continue PPI Asthma/COPD No signs of exacerbation continue home inhalers, Singulair Mood disorder continue buspar, hydroxyzine, fluoxetine HLD On statin DM II HbA1c 6.5 Hold PO meds Continue insulin while hospitalized for protocol Monitor BGs DVT Px: Eliquis Code Status: Full code Admission and Anticipated Discharge Date Admission Date: January 12, 2023 Subjective Patient is seen and examined at bedside Feels tired Reports right hip rash Also has Left leg wound pain Denies any chest pain, dyspnea, dizziness, nausea, abdominal pain Review of Systems Review of Systems: All systems reviewed & are unremarkable except as noted in Subjective Physical Exam Physical Exam: Physical Exam: Vitals signs as noted above General Appearance:Moderately built and nourished, no apparent distress Head: normocephalic, Atraumatic Eyes: normal inspection, EOMI Neck: supple, Trachea midline Respiratory/Chest: Normal breath sounds, CTA, No accessory muscle use Cardiovascular: S1, S2, No murmur Abdomen/GI:Soft, Non tender, Bowel sounds present Extremities/Musculoskeletal:normal inspection, B/L LE leg wounds in dressing, 1+ pedal edema Neurologic/Psych:AAOX3, grossly no focal neurological deficits Skin: normal color, warm Results & Data Results & Data Vital Signs (Past 12 Hours) Vital Signs Temp Pulse Resp BP Pulse Ox O2 Del Method 01/15/23 14:48 36.8 C 83 18 123/82 97 Room Air 01/15/23 07:25 Room Air 01/15/23 07:20 36.5 C 73 16 117/75 97 Room Air Laboratory Results Short CBC 01/15/23 Range/Units 06:53 WBC 5.31 (4.8-10.8) K/ul Hgb 13.5 L (14.0-18.0) g/dl Hct 40.6 L (42.0-52.0) % Plt Count 228 (130-400) K/uL BMP 01/15/23 06:53 Sodium 135 L Potassium 3.5 Chloride 103 Carbon Dioxide 29 BUN 30 H Creatinine 0.92 Glucose 136 H Calcium 9.2 (5) Chronic deep vein thrombosis (DVT) Affected thrombotic vein of extremity: unspecified vein of extremity DVT location: lower extremity Laterality: right Qualified Code(s): I82.501 - Chronic embolism and thrombosis of unspecified deep veins of right lower extremity (7) GERD (gastroesophageal reflux disease) Esophagitis presence: esophagitis presence not specified Qualified Code(s): K21.9 - Gastro-esophageal reflux disease without esophagitis (8) COPD (chronic obstructive pulmonary disease) COPD type: unspecified COPD Qualified Code(s): J44.9 - Chronic obstructive pulmonary disease, unspecified (9) Cirrhosis Hepatic cirrhosis type: alcoholic cirrhosis Ascites presence: unspecified Qualified Code(s): K70.30 - Alcoholic cirrhosis of liver without ascites (10) Type 2 diabetes mellitus Diabetes mellitus longterm insulin use: without longterm use
[2023-01-15] MEDS: MELATONIN 3 MG TAB PO PRN (20:07)
[2023-01-15] MEDS: FLUTICASONE/VILANTEROL 200/25MCG 14 PUFFS/INHALER INH SCH (20:08)
[2023-01-15] MEDS: FLUoxetine HCL 20 MG CAP PO SCH (20:09)
[2023-01-16] MEDS: oxyCODONE/ACETAMINOPHEN 5mg/325mg TAB PO PRN ×3 (04:19→19:58)
[2023-01-16] MEDS: MULTIVITAMIN TAB PO SCH (09:29)
[2023-01-16] MEDS: UMECLIDINIUM BROMIDE 62.5MCG/BLISTER 7 PUFFS/INHALER INH SCH (09:29)
[2023-01-16] MEDS: FOLIC ACID 1 MG TAB PO SCH (09:30)
[2023-01-16] MEDS: APIXABAN 5 MG TABLET PO SCH ×2 (09:30→19:59)
[2023-01-16] MEDS: GABAPENTIN 600 MG TAB PO SCH ×3 (09:30→20:01)
[2023-01-16] MEDS: MONTELUKAST SODIUM 10 MG TABLET PO SCH (09:30)
[2023-01-16] MEDS: busPIRone 15 MG TAB PO SCH ×2 (09:30→20:00)
[2023-01-16] MEDS: PANTOprazole 40 MG TAB PO SCH ×2 (09:30→20:00)
[2023-01-16] MEDS: SPIRONOLACTONE 25 MG TAB PO SCH ×2 (09:31→20:00)
[2023-01-16] MEDS: ATORVASTATIN 10 MG TAB PO SCH (09:31)
[2023-01-16] MEDS: NICOTINE 14 MG/24 HR PATCH TD SCH (09:31)
[2023-01-16] MEDS: FUROSEMIDE 80 MG TAB PO SCH ×2 (09:31→16:19)
[2023-01-16] MEDS: CLOTRIMAZOLE 1% CR 15 GM TUBE EXT SCH ×2 (09:33→20:03)
[2023-01-16] MEDS: INSULIN ASPART PER UNIT CHARGE SC SCH ×4 (09:35→20:37)
[2023-01-16] MEDS: LANTUS PER UNIT CHARGE SQ SCH ×2 (09:35→20:37)
[2023-01-16] MEDS: HEPARIN 100 UNIT/ML 5ML FLUSH FLUSH PRN ×2 (09:47→20:01)
[2023-01-16] MEDS: MoRPHine SULFATE 2 MG/ML CARP IV PRN (09:47)
[2023-01-16] MEDS: CEFEPIME 2,000 MG in SYRINGE 0 ML IV SCH ×2 (09:56→20:01)
[2023-01-16] MEDS: diphenhydrAMINE Capsule 25 MG CAP PO PRN ×2 (11:14→17:26)
--- NOTE | 2023-01-16 16:23 | Hospitalist Progress Note ---
Date of Service January 16, 2023 Assessment & Plan (1) Cellulitis of left leg: (2) Open wound of both lower extremities with complication: (3) Depression with anxiety: (4) Venous ulcers of both lower extremities: (5) Chronic deep vein thrombosis (DVT): (6) Chronic narcotic use: (7) GERD (gastroesophageal reflux disease): (8) COPD (chronic obstructive pulmonary disease): (9) Cirrhosis: (10) Type 2 diabetes mellitus: Plan Pt is a 47 yr male with a PMHx of DMII with neuropathy (controlled on last check), chronic venous stasis with lower extremity edema, Hx of DVT, Chronic pain, GERD, asthma/COPD, alcoholic cirrhosis, HLD, Mood disturbance who presents for evaluation of lower extremity wounds. Open lower extremity wounds in setting of Chronic Venous stasis changes, DM II Cellulitis of lower extremity --LE MRI:No fractures or evidence for osteomyelitis within the left lower leg. Subcutaneous edema within the distal left lower leg. Diffuse fatty atrophy of the majority of the left lower leg muscles with minimal edema distally. This is nonspecific but could be due to a chronic denervation injury. This remains unchanged. A 3 cm skin ulceration along the medial aspect of the distal lower leg. No evidence for an underlying abscess. -CRP 2.2 -Normal lactic acid Blood cultures: No growth to date Wound cultures: Pseudomonas Continue vancomycin, cefepime >> cefepime only Continue wound care Needs follow-up with wound clinic upon discharge Orthotics consulted PT/OT recommends to return home Plan to transition to ciprofloxacin upon discharge Dermatophyte infection Received 1 dose of fluconazole Continue clotrimazole Neuropathy/chronic pain continue gabapentin Also on pain meds Alcoholic cirrhosis continue home lasix, spironolactone, folic acid H/O DVT continue Eliquis GERD continue PPI Asthma/COPD No signs of exacerbation continue home inhalers, Singulair Mood disorder continue buspar, hydroxyzine, fluoxetine HLD On statin DM II HbA1c 6.5 Hold PO meds Continue insulin while hospitalized for protocol Monitor BGs DVT Px: Eliquis Code Status: Full code Disposition Likely discharge home tomorrow Admission and Anticipated Discharge Date Admission Date: January 12, 2023 Subjective Patient is seen and examined at bedside Reports Itchy rash on right hip No new complaints Left leg wound pain is controlled Denies any chest pain, dyspnea, dizziness, nausea, abdominal pain Review of Systems Review of Systems: All systems reviewed & are unremarkable except as noted in Subjective Physical Exam Physical Exam: Physical Exam: Vitals signs as noted above General Appearance:Moderately built and nourished, no apparent distress Head: normocephalic, Atraumatic Eyes: normal inspection, EOMI Neck: supple, Trachea midline Respiratory/Chest: Normal breath sounds, CTA, No accessory muscle use Cardiovascular: S1, S2, No murmur Abdomen/GI:Soft, Non tender, Bowel sounds present Extremities/Musculoskeletal:normal inspection, B/L LE leg wounds in dressing, 1+ pedal edema Neurologic/Psych:AAOX3, grossly no focal neurological deficits Skin: normal color, warm Results & Data Results & Data Vital Signs (Past 12 Hours) Vital Signs Temp Pulse Resp BP Pulse Ox O2 Del Method 01/16/23 15:22 36.5 C 85 20 109/67 97 Room Air 01/16/23 08:00 Room Air 01/16/23 07:26 36.8 C 73 18 112/67 94 Room Air (5) Chronic deep vein thrombosis (DVT) Affected thrombotic vein of extremity: unspecified vein of extremity DVT location: lower extremity Laterality: right Qualified Code(s): I82.501 - Chronic embolism and thrombosis of unspecified deep veins of right lower extremity (7) GERD (gastroesophageal reflux disease) Esophagitis presence: esophagitis presence not specified Qualified Code(s): K21.9 - Gastro-esophageal reflux disease without esophagitis (8) COPD (chronic obstructive pulmonary disease) COPD type: unspecified COPD Qualified Code(s): J44.9 - Chronic obstructive pulmonary disease, unspecified (9) Cirrhosis Hepatic cirrhosis type: alcoholic cirrhosis Ascites presence: unspecified Qualified Code(s): K70.30 - Alcoholic cirrhosis of liver without ascites (10) Type 2 diabetes mellitus Diabetes mellitus senior living insulin use: without senior living use
[2023-01-16] MEDS: MELATONIN 3 MG TAB PO PRN (19:59)
[2023-01-16] MEDS: FLUoxetine HCL 20 MG CAP PO SCH (20:00)
[2023-01-16] MEDS: hydrOXYzine HCl 10 MG TAB PO PRN (20:01)
[2023-01-16] MEDS: FLUTICASONE/VILANTEROL 200/25MCG 14 PUFFS/INHALER INH SCH (20:02)
[2023-01-17] MEDS: HEPARIN 100 UNIT/ML 5ML FLUSH FLUSH PRN ×2 (06:40→09:39)
[2023-01-17 07:56] LABS: BUN Creatinine Ratio 39.7 (10-20); Calcium 9.5 mg/dl (8.6-10.3); Est GFR (African American) 123.7 ml/min; Est GFR (Non-African American) 106.7 ml/min; Potassium 3.6 mmol/L (3.5-5.1)
[2023-01-17] MEDS: diphenhydrAMINE Capsule 25 MG CAP PO PRN ×2 (07:58→20:49)
[2023-01-17] MEDS: oxyCODONE/ACETAMINOPHEN 5mg/325mg TAB PO PRN ×3 (07:59→21:25)
[2023-01-17] MEDS: UMECLIDINIUM BROMIDE 62.5MCG/BLISTER 7 PUFFS/INHALER INH SCH (08:00)
[2023-01-17] MEDS: NICOTINE 14 MG/24 HR PATCH TD SCH (08:02)
[2023-01-17] MEDS: CLOTRIMAZOLE 1% CR 15 GM TUBE EXT SCH ×2 (08:02→20:49)
[2023-01-17] MEDS: INSULIN ASPART PER UNIT CHARGE SC SCH ×4 (09:27→20:48)
[2023-01-17] MEDS: APIXABAN 5 MG TABLET PO SCH ×2 (09:28→20:52)
[2023-01-17] MEDS: busPIRone 15 MG TAB PO SCH ×2 (09:28→20:51)
[2023-01-17] MEDS: GABAPENTIN 600 MG TAB PO SCH ×3 (09:29→20:53)
[2023-01-17] MEDS: PANTOprazole 40 MG TAB PO SCH ×2 (09:29→20:52)
[2023-01-17] MEDS: ATORVASTATIN 10 MG TAB PO SCH (09:29)
[2023-01-17] MEDS: FUROSEMIDE 80 MG TAB PO SCH ×2 (09:29→17:02)
[2023-01-17] MEDS: SPIRONOLACTONE 25 MG TAB PO SCH ×2 (09:29→20:53)
[2023-01-17] MEDS: MONTELUKAST SODIUM 10 MG TABLET PO SCH (09:30)
[2023-01-17] MEDS: MULTIVITAMIN TAB PO SCH (09:30)
[2023-01-17] MEDS: FOLIC ACID 1 MG TAB PO SCH (09:30)
[2023-01-17] MEDS: CEFEPIME 2,000 MG in SYRINGE 0 ML IV SCH ×2 (09:30→20:59)
[2023-01-17] MEDS: LANTUS PER UNIT CHARGE SQ SCH ×2 (09:30→20:48)
[2023-01-17] MEDS: MoRPHine SULFATE 2 MG/ML CARP IV PRN (11:27)
--- NOTE | 2023-01-17 12:25 | Hospitalist Progress Note ---
Date of Service January 17, 2023 Assessment & Plan (1) Cellulitis of left leg: (2) Open wound of both lower extremities with complication: (3) Depression with anxiety: (4) Venous ulcers of both lower extremities: (5) Chronic deep vein thrombosis (DVT): (6) Chronic narcotic use: (7) GERD (gastroesophageal reflux disease): (8) COPD (chronic obstructive pulmonary disease): (9) Cirrhosis: (10) Type 2 diabetes mellitus: Plan Pt is a 47 yr male with a PMHx of DMII with neuropathy (controlled on last check), chronic venous stasis with lower extremity edema, Hx of DVT, Chronic pain, GERD, asthma/COPD, alcoholic cirrhosis, HLD, Mood disturbance who presents for evaluation of lower extremity wounds. Open lower extremity wounds in setting of Chronic Venous stasis changes, DM II Cellulitis of lower extremity --LE MRI:No fractures or evidence for osteomyelitis within the left lower leg. Subcutaneous edema within the distal left lower leg. Diffuse fatty atrophy of the majority of the left lower leg muscles with minimal edema distally. This is nonspecific but could be due to a chronic denervation injury. This remains unchanged. A 3 cm skin ulceration along the medial aspect of the distal lower leg. No evidence for an underlying abscess. -CRP 2.2 -Normal lactic acid Blood cultures: No growth to date Wound cultures: Pseudomonas Continue vancomycin, cefepime >> cefepime only Continue wound care Needs follow-up with wound clinic upon discharge Orthotics consulted PT/OT recommends to return home Plan to transition to ciprofloxacin upon discharge Dermatophyte infection Received 1 dose of fluconazole Continue clotrimazole Neuropathy/chronic pain continue gabapentin Also on pain meds Alcoholic cirrhosis continue home lasix, spironolactone, folic acid H/O DVT continue Eliquis GERD continue PPI Asthma/COPD No signs of exacerbation continue home inhalers, Singulair Mood disorder continue buspar, hydroxyzine, fluoxetine HLD On statin DM II HbA1c 6.5 Hold PO meds Continue insulin while hospitalized for protocol Monitor BGs DVT Px: Eliquis Code Status: Full code Disposition Pt awaiting orthotics and states he does not have a ride today but will tomorrow by 1100. Likely discharge home tomorrow Admission and Anticipated Discharge Date Admission Date: January 12, 2023 Supervising Physician Co-Signing Physician Notes Patient is seen and examined at bedside. Leg wound pain is controlled. Reports right ear itchy rash. No new complaints. I personally reviewed and examined the patient in person. Agree with continuing IV cefepime for now. Plan to transition to ciprofloxacin upon discharge. Continue clotrimazole. May need a repeat dose of fluconazole as outpatient. Likely discharge home tomorrow. I personally reviewed the record. Patient is interviewed and examined at bedside. Patient's care is coordinated with Yanira Sims PA-C. Please refer to the documentation above for details of patient's presentation and for discussion of other issues. Subjective Pt was seen and examined in room 377-2. Follow up Lower ext wounds. Pt complains of lower extremity pain. He is waiting his wound to be re dressed. Denies f/c/s, chest pain, sob, n/v/d. He is tolerating diet. Awaiting for orthotics to come back. Hoping for discharge tomorrow. Review of Systems Review of Systems: All systems reviewed & are unremarkable except as noted in HPI & below Physical Exam Physical Exam: Gen: WD/WN, Sitting up in bed, NAD, A&O x3 HEENT: Normocephalic, atraumatic, conjunctivae moist, sclerae anicteric, mucous membranes moist. Lung: Clear to Auscultation bilaterally, no wheezes/rales/rhonchi Heart: Regular rate, regular rhythm, no murmurs, rubs, or gallops Abdomen: Soft, NT, ND +BS x 4 Extremities: lower extremity edema, b/l venous stasis changes, dressing CDI Skin: Warm, no rash, negative turgor. Results & Data Results & Data Vital Signs (Past 12 Hours) Vital Signs Temp Pulse Resp BP Pulse Ox O2 Del Method 01/17/23 07:15 Room Air 01/17/23 07:50 36.7 C 71 16 122/70 96 Room Air Laboratory Results [facility] 01/17/23 06:25 Sodium 136 Potassium 3.6 Chloride 101 Carbon Dioxide 28 BUN 31 H Creatinine 0.78 Glucose 141 H Calcium 9.5 Medications Administered Current Inpatient Medications Albuterol (Albuterol Hfa 8 Gm Inhaler) 1 puffs INH Q6H PRN PRN Reason: Shortness Of Breath Stop: 02/11/23 14:14 Apixaban (Apixaban 5 Mg Tablet) 5 mg PO BID OTILIA Stop: 02/11/23 20:59 Last Admin: 01/17/23 09:28 Dose: 5 mg Atorvastatin Calcium (Atorvastatin 10 Mg Tab) 10 mg PO QAM OTILIA Stop: 02/12/23 08:59 Last Admin: 01/17/23 09:29 Dose: 10 mg Buspirone HCl (Buspirone 15 Mg Tab) 15 mg PO BID OTILIA Stop: 02/11/23 20:59 Last Admin: 01/17/23 09:28 Dose: 15 mg Clotrimazole (Clotrimazole 1% Cr 15 Gm Tube) 1 appln EXT BID OTILIA Stop: 02/14/23 13:09 Last Admin: 01/17/23 08:02 Dose: 1 appln Dextrose (Dextrose 50% 50 Ml Syringe) 25 - 50 ml IV UD PRN; Protocol PRN Reason: Hypoglycemia Protocol Stop: 02/11/23 14:14 Diphenhydramine HCl (Diphenhydramine Capsule 25 Mg Cap) 25 - 50 mg PO Q6H PRN PRN Reason: Itching Stop: 02/11/23 14:14 Last Admin: 01/17/23 07:58 Dose: 25 mg Docusate Sodium (Docusate Sodium 100 Mg Cap) 100 mg PO BID PRN PRN Reason: Constipation Stop: 02/11/23 14:14 Fluoxetine HCl (Fluoxetine Hcl 20 Mg Cap) 20 mg PO HS OTILIA Stop: 02/11/23 20:59 Last Admin: 01/16/23 20:00 Dose: 20 mg Fluticasone/Vilanterol (Fluticasone/Vilanterol 200/25mcg 14 Puffs/Inhaler) 1 puffs INH PM OTILIA Stop: 02/11/23 20:59 Last Admin: 01/16/23 20:02 Dose: 1 puffs Folic Acid (Folic Acid 1 Mg Tab) 1 mg PO QAM OTILIA Stop: 02/12/23 08:59 Last Admin: 01/17/23 09:30 Dose: 1 mg Furosemide (Furosemide 80 Mg Tab) 80 mg PO BID@0900,1600 [facility] Stop: 02/11/23 16:59 Last Admin: 01/17/23 09:29 Dose: 80 mg Gabapentin (Gabapentin 600 Mg Tab) 600 mg PO TID OTILIA Stop: 02/11/23 14:14 Last Admin: 01/17/23 09:29 Dose: 600 mg Glucagon (Glucagon For Inj 1 Mg Vial) 1 mg SQ UD PRN; Protocol PRN Reason: Hypoglycemia Protocol Stop: 02/11/23 14:14 Glucose (Glucose 10 Tab/Tube) 4 - 8 tab PO UD PRN; Protocol PRN Reason: Hypoglycemia Treatment Stop: 02/11/23 14:14 Glucose (Glucose 40% Gel 15 Gm Tube) 15 - 30 gm PO UD PRN; Protocol PRN Reason: Hypoglycemia Protocol Stop: 02/11/23 14:14 Heparin Sodium (Porcine) (Heparin 100 Unit/Ml 5ml Flush) 5 ml FLUSH PRN PRN PRN Reason: Flush Stop: 02/11/23 20:56 Last Admin: 01/17/23 09:39 Dose: 5 ml Hydroxyzine HCl (Hydroxyzine Hcl 10 Mg Tab) 10 mg PO Q8H PRN PRN Reason: Itching Stop: 02/11/23 14:14 Last Admin: 01/16/23 20:01 Dose: 10 mg Cefepime HCl 2,000 mg/ Syringe 20 mls @ 5 mls/min IV Q12 OTILIA; Protocol Stop: 01/19/23 20:59 Last Admin: 01/17/23 09:30 Dose: 5 mls/min Insulin Aspart (Insulin Aspart Per Unit Charge) 0 units SC ACHS OTILIA Stop: 02/11/23 16:29 Last Admin: 01/17/23 09:27 Dose: 6 units Insulin Glargine (Lantus Per Unit Charge) 9 units SQ BID OTILIA Stop: 02/11/23 20:59 Last Admin: 01/17/23 09:30 Dose: 9 units Melatonin (Melatonin 3 Mg Tab) 3 mg PO HS PRN PRN Reason: Sleep Stop: 02/11/23 20:05 Last Admin: 01/16/23 19:59 Dose: 3 mg Miscellaneous (Carbohydrates For Hypoglycemia ) 15 - 30 gm PO UD PRN PRN Reason: Hypoglycemia Protocol Stop: 02/11/23 14:14 Miscellaneous (Remove Nicoderm Patch) 1 each N/A DAILY@0859 [facility] Stop: 02/12/23 08:58 Last Admin: 01/17/23 08:01 Dose: 1 each Montelukast Sodium (Montelukast Sodium 10 Mg Tablet) 10 mg PO DAILY [facility] Stop: 02/12/23 08:59 Last Admin: 01/17/23 09:30 Dose: 10 mg Morphine Sulfate (Morphine Sulfate 2 Mg/Ml Carp) 2 mg IV DAILY PRN PRN Reason: Pain PRIOR TO DRESSING CHANGE Stop: 01/29/23 07:55 Last Admin: 01/17/23 11:27 Dose: 2 mg Multi-Ingredient Cream (Eucerin Cr 120 Gm Jar) 1 appln EXT BID PRN PRN Reason: Rash Stop: 02/11/23 09:19 Last Admin: 01/13/23 15:28 Dose: 1 appln Multivitamins (Multivitamin Tab) 1 tab PO QAM [facility] Stop: 02/12/23 08:59 Last Admin: 01/17/23 09:30 Dose: 1 tab Nicotine (Nicotine 14 Mg/24 Hr Patch) 14 mg TD QAM [facility] Stop: 02/11/23 15:14 Last Admin: 01/17/23 08:02 Dose: 14 mg Oxycodone/Acetaminophen (Oxycodone/Acetaminophen 5mg/325mg Tab) 1 tab PO Q6H PRN PRN Reason: Pain, severe Stop: 01/26/23 18:59 Last Admin: 01/17/23 07:59 Dose: 1 tab Pantoprazole Sodium (Pantoprazole 40 Mg Tab) 40 mg PO BID [facility] Stop: 02/11/23 20:59 Last Admin: 01/17/23 09:29 Dose: 40 mg Polyethylene Glycol (Polyethylene (Miralax) 17 Gm Pack) 17 gm PO DAILY PRN PRN Reason: Constipation Stop: 02/11/23 14:14 Last Admin: 01/15/23 18:04 Dose: 17 gm Spironolactone (Spironolactone 25 Mg Tab) 50 mg PO BID [facility] Stop: 02/11/23 20:59 Last Admin: 01/17/23 09:29 Dose: 50 mg Umeclidinium Morrow (Umeclidinium Morrow 62.5mcg/Blister 7 Puffs/Inhaler) 1 puffs INH DAILY [facility] Stop: 02/12/23 08:59 Last Admin: 01/17/23 08:00 Dose: 1 puffs (5) Chronic deep vein thrombosis (DVT) Affected thrombotic vein of extremity: unspecified vein of extremity DVT location: lower extremity Laterality: right Qualified Code(s): I82.501 - Chronic embolism and thrombosis of unspecified deep veins of right lower extremity (7) GERD (gastroesophageal reflux disease) Esophagitis presence: esophagitis presence not specified Qualified Code(s): K21.9 - Gastro-esophageal reflux disease without esophagitis (8) COPD (chronic obstructive pulmonary disease) COPD type: unspecified COPD Qualified Code(s): J44.9 - Chronic obstructive pulmonary disease, unspecified (9) Cirrhosis Ascites presence: unspecified Hepatic cirrhosis type: alcoholic cirrhosis Qualified Code(s): K70.30 - Alcoholic cirrhosis of liver without ascites (10) Type 2 diabetes mellitus Diabetes mellitus alf insulin use: without alf use
[2023-01-17] MEDS: hydrOXYzine HCl 10 MG TAB PO PRN (13:11)
[2023-01-17] MEDS: MELATONIN 3 MG TAB PO PRN (20:49)
[2023-01-17] MEDS: FLUTICASONE/VILANTEROL 200/25MCG 14 PUFFS/INHALER INH SCH (20:51)
[2023-01-17] MEDS: FLUoxetine HCL 20 MG CAP PO SCH (20:53)
[2023-01-18] MEDS: CEFEPIME 2,000 MG in SYRINGE 0 ML IV SCH (08:00)
[2023-01-18] MEDS: oxyCODONE/ACETAMINOPHEN 5mg/325mg TAB PO PRN (08:08)
[2023-01-18 08:24] LABS: Hematocrit (blood only) 39.8 % (42.0-52.0); Hemoglobin 13.1 g/dl (14.0-18.0); Mean Corpuscular Hemoglobin 27.2 pg (25.0-34.0); Mean Corpuscular Hgb Conc 32.9 g/dL (32.0-36.0); Mean Corpuscular Volume 82.7 fL (80.0-100.0); Mean Platelet Volume 9.9 fL (9.4-12.4); Platelet Count 215 K/uL (130-400); RDW Coefficient of Variation 14.5 % (11.5-14.5); RDW Standard Deviation 43.3 fL (36.4-46.3); Red Blood Count 4.81 M/uL (4.70-6.10); White Blood Count 5.25 K/ul (4.8-10.8)
[2023-01-18 08:39] LABS: BUN Creatinine Ratio 32.6 (10-20); Calcium 9.7 mg/dl (8.6-10.3); Creatinine Clr Calc Pharmacy 114.5 ml/min; Est GFR (African American) 113.6 ml/min; Potassium 3.9 mmol/L (3.5-5.1)
[2023-01-18] MEDS: INSULIN ASPART PER UNIT CHARGE SC SCH (09:30)
[2023-01-18] MEDS: ATORVASTATIN 10 MG TAB PO SCH (09:31)
[2023-01-18] MEDS: MONTELUKAST SODIUM 10 MG TABLET PO SCH (09:31)
[2023-01-18] MEDS: FUROSEMIDE 80 MG TAB PO SCH (09:32)
[2023-01-18] MEDS: busPIRone 15 MG TAB PO SCH (09:32)
[2023-01-18] MEDS: SPIRONOLACTONE 25 MG TAB PO SCH (09:32)
[2023-01-18] MEDS: PANTOprazole 40 MG TAB PO SCH (09:32)
[2023-01-18] MEDS: NICOTINE 14 MG/24 HR PATCH TD SCH (09:32)
[2023-01-18] MEDS: GABAPENTIN 600 MG TAB PO SCH (09:32)
[2023-01-18] MEDS: FOLIC ACID 1 MG TAB PO SCH (09:32)
[2023-01-18] MEDS: MULTIVITAMIN TAB PO SCH (09:33)
[2023-01-18] MEDS: LANTUS PER UNIT CHARGE SQ SCH (09:33)
[2023-01-18] MEDS: UMECLIDINIUM BROMIDE 62.5MCG/BLISTER 7 PUFFS/INHALER INH SCH (09:33)
[2023-01-18] MEDS: APIXABAN 5 MG TABLET PO SCH (09:33)
[2023-01-18] MEDS: CLOTRIMAZOLE 1% CR 15 GM TUBE EXT SCH (09:33)
[2023-01-18] MEDS: MoRPHine SULFATE 2 MG/ML CARP IV PRN (10:59)
--- NOTE | 2023-01-18 11:58 | Discharge Summary ---
Discharge Summary Date of Service January 18, 2023 Notes For Next Care Provider Medication Changes From Visit Ciprofloxacin 500 mg twice daily for additional 5 days. Clotrimazole cream apply twice daily to rash on hip for 2 weeks. If rash still persists follow up with PCP and dermatology as scheduled Recommend daily probiotic while on antibiotic therapy. Continue all other medications as prescribed. Admission HPI Per Admitting Provider History obtained from patient and Epic Records. Pt is a 47yo gentleman with a PMHx of DMII with neuropathy (controlled on last check), chronic venous stasis with lower extremity edema, Hx of DVT, Chronic pain, GERD, asthma/COPD, alcoholic cirrhosis, HLD, Mood disturbance who presents for evaluation of lower extremity wounds. States that he started with fevers and chills over the weekend, about 6 days ago. Presented to [facility] ED and chart review there showed that xrays done there did not show signs of osteomyelitis. Procalcitonin and lactate were within normal limits and blood cultures there with NGTD, MRI was recommended for further evaluation. ED documentation at [facility] noted that he desired admission there but was discharged home with clindamycin and Keflex. Presenting for further evaluation at [facility], as he states that he has had continued drainage with odor and persistent fevers and chills. He notes that he has had poor outpatient follow up with the wound clinic though he notes he was told recently that he needs leg braces. Denies N/V or fevers/chills currently. In the ED at [facility], WBC was wnl with an elevated CRP. Lactate and procalcitonin were again wnl. MRI of the lower extremities from October 2022 did not show osteomyelitis at that time. Blood cultures as well as wound cultures were obtained by the ED and are pending. Started on Vancomycin and Cefepime in the ED for failed outpatient treatment and recommending admission for wound care and IV antibiotics given the patient's history of MRSA infection and resistance in the past to various antibiotics. Admission Exam Per Admitting Provider General: Alert, oriented. No acute distress Skin: Superficial open wound near ankle on right lower extremity. On LLE, near left ankle noted deeper crater-like wound with yellowish red drainage on wound dressing. Psych: Appropriate mood and affect Neuro: No gross deficits HEENT: NC/AT Chest: Nontender to palpation. CV: RRR, Normal s1, s2. No murmurs appreciated Resp: Breath sounds clear bilaterally, no increased effort of breathing. Abdomen: Soft Extremities: chronic venous stasis changes noted on lower extremities bilaterally. Principal Dx & Hospital Course #1 = Principal Diagnosis (1) Cellulitis of left leg: (2) Open wound of both lower extremities with complication: (3) Depression with anxiety: (4) Venous ulcers of both lower extremities: (5) Chronic deep vein thrombosis (DVT): (6) Chronic narcotic use: (7) GERD (gastroesophageal reflux disease): (8) COPD (chronic obstructive pulmonary disease): (9) Cirrhosis: (10) Type 2 diabetes mellitus: Plan Pt is a 47 yr male with a PMHx of DMII with neuropathy (controlled on last check), chronic venous stasis with lower extremity edema, Hx of DVT, Chronic pain, GERD, asthma/COPD, alcoholic cirrhosis, HLD, Mood disturbance who presents for evaluation of lower extremity wounds. Open lower extremity wounds in setting of Chronic Venous stasis changes, DM II Cellulitis of lower extremity --LE MRI:No fractures or evidence for osteomyelitis within the left lower leg. Subcutaneous edema within the distal left lower leg. Diffuse fatty atrophy of the majority of the left lower leg muscles with minimal edema distally. This is nonspecific but could be due to a chronic denervation injury. This remains unchanged. A 3 cm skin ulceration along the medial aspect of the distal lower leg. No evidence for an underlying abscess. -CRP 2.2 -Normal lactic acid Blood cultures: No growth to date Wound cultures: Pseudomonas Continue vancomycin, cefepime >> cefepime only Continue wound care Needs follow-up with wound clinic upon discharge Orthotics consulted PT/OT recommends to return home Plan to transition to ciprofloxacin upon discharge for 5 additional days Dermatophyte infection Received 1 dose of fluconazole Continue clotrimazole upon discharge Pt does have follow up with Dermatology Neuropathy/chronic pain continue gabapentin Also on pain meds Alcoholic cirrhosis continue home lasix, spironolactone, folic acid H/O DVT continue Eliquis GERD continue PPI Asthma/COPD No signs of exacerbation continue home inhalers, Singulair Mood disorder continue buspar, hydroxyzine, fluoxetine HLD On statin DM II HbA1c 6.5 Hold PO meds Continue insulin while hospitalized for protocol Monitor BGs DVT Px: Eliquis Code Status: Full code Disposition D/C home today with wound care follow up and to complete oral antibiotics. Discharge Exam Gen: WD/WN, Sitting up in bed, NAD, A&O x3 HEENT: Normocephalic, atraumatic, conjunctivae moist, sclerae anicteric, mucous membranes moist. Lung: Clear to Auscultation bilaterally, no wheezes/rales/rhonchi Heart: Regular rate, regular rhythm, no murmurs, rubs, or gallops Abdomen: Soft, NT, ND +BS x 4 Extremities: lower extremity edema, b/l venous stasis changes, dressing CDI Skin: Warm, R lateral prox thigh with patches and plaques concerning for dermatophyte infection, negative turgor. Updated Medication List Medication Instructions Recorded Confirmed Type albuterol sulfate 90 mcg/actuation 1 puff inhalation Q6H PRN 05/09/18 01/12/23 History aerosol inhaler (Ventolin HFA) Shortness Of Breath folic acid 1 mg tablet 1 mg PO QAM 05/09/18 01/12/23 History omeprazole 20 mg capsule,delayed 20 mg PO BID 05/09/18 01/12/23 History release diphenhydramine HCl 25 mg capsule 25 - 50 mg PO Q6H PRN Itching 10/23/19 01/12/23 History (Benadryl) furosemide 80 mg tablet 80 mg PO BID17 10/23/19 01/12/23 History atorvastatin 10 mg tablet 10 mg PO QAM 06/05/20 01/12/23 History gabapentin 600 mg tablet 600 mg PO TID 06/05/20 01/12/23 History multivitamin 1 tab PO QAM 06/05/20 01/12/23 History spironolactone 50 mg tablet 50 mg PO BID 06/05/20 01/12/23 History buspirone 15 mg tablet 15 mg PO BID 10/02/22 01/12/23 History fluoxetine 20 mg capsule 20 mg PO HS 10/02/22 01/12/23 History fluticasone 500 mcg-salmeterol 50 1 inh inhalation BID 10/02/22 01/12/23 History mcg/dose blistr powdr for inhalation metformin 1,000 mg tablet 1,000 mg PO BID 10/02/22 01/12/23 History montelukast 10 mg tablet 10 mg PO DAILY 10/02/22 01/12/23 History apixaban 5 mg tablet (Eliquis) 5 mg PO BID #60 tabs 10/04/22 01/12/23 Rx ammonium lactate 5 % lotion 1 applic EXT BID #226 grams 10/08/22 01/12/23 Rx (Lac-Hydrin Five) hydroxyzine HCl 10 mg tablet 10 mg PO Q8H PRN Itching 10/29/22 01/12/23 History tiotropium bromide 2.5 2 inh inhalation DAILY 10/29/22 01/12/23 History mcg/actuation mist for inhalation (Spiriva Respimat) white petrolatum-mineral oil 1 applic EXT TID PRN Skin 10/29/22 01/12/23 History topical cream (Dermacerin topical Irritation cream) ciprofloxacin HCl 500 mg tablet 500 mg PO Q12H #10 tabs 01/17/23 Rx (Cipro) oxycodone-acetaminophen 5 mg-325 1 tab PO Q8H PRN pain, severe #18 01/17/23 Rx mg tablet tabs clotrimazole 1 % topical cream 1 applic EXT BID #45 grams 01/18/23 Rx Hospital Stay Data Consultations 01/12/23 11:20 ED Decision to Admit Stat Diagnostic Imagining Performed Lower Extremity MRI 01/12/23 14:15 MR lower leg LT wo/w con HISTORY: Bilateral leg debridement. Leg ulceration. Cellulitis. Worsening left lower leg wound. r/o osteomyelitis TECHNIQUE: Multiplanar multisequence MRI of the left lower leg was performed both before and after the intravenous administration of 10 cc of Gadavist contrast. COMPARISON STUDY: Left leg MRI 10/03/2022. FINDINGS: No fracture or dislocation within the left tibia or fibula. No loculated fluid collections to suggest an abscess. There is mild subcutaneous edema noted within the distal left lower leg. No cortical destruction or abnormal marrow signal intensity to suggest an osteomyelitis. Diffuse fatty atrophy throughout the majority of the muscles of the left lower leg. There is also minimal edema within the distal left lower leg musculature. This is nonspecific but could be due to a chronic denervation injury. This remains unchanged. Postcontrast sequences show no areas of abnormal enhancement. There is minimal periosteal thickening within the anterolateral aspect of the mid to distal tibia. This is similar to the prior study and may be due to chronic venous stasis. There is a 3 cm skin ulceration along the medial aspect of the distal lower leg. IMPRESSION: 1. No fractures or evidence for osteomyelitis within the left lower leg. 2. Subcutaneous edema within the distal left lower leg. 3. Diffuse fatty atrophy of the majority of the left lower leg muscles with minimal edema distally. This is nonspecific but could be due to a chronic denervation injury. This remains unchanged. 4. A 3 cm skin ulceration along the medial aspect of the distal lower leg. No evidence for an underlying abscess. ACT 112: Negative or not required by law. Electronically signed by: Julian Gaitan M.D. 01/12/2023 5:45 PM Pending Results Patient Have Any Pending Studies at Discharge: No Discharge Instructions Given to Patient (Per Discharging Provider) MEDICATION CHANGES: Ciprofloxacin 500 mg twice daily for additional 5 days. Clotrimazole cream apply twice daily to rash on hip for 2 weeks. If rash still persists follow up with PCP and dermatology as scheduled Recommend daily probiotic while on antibiotic therapy. Continue all other medications as prescribed. SUMMARY OF TEST RESULTS: You were admitted to hospital secondary to lower extremity cellulitis and worsening condition of your wounds. You were treated with IV antibiotic therapy. Orthotics was consulted to assist with device to promote wound healing for lower extremities. PENDING TEST RESULTS: None RECOMMENDATIONS FOR FOLLOW-UP: Complete antibiotics in their entirety. Wound care recommendations: To left and right lower legs wash legs routinely apply lotion (Am-Lactin or equivalent). Clean the wounds with saline. Cover with double layer of Xeroform, gauze and Kerlix. Keep Xeroform within limits of wound. Change every day and as needed for drainage. Do not allow wet dressings to remain on legs, change dressing. Follow-up at wound care center as scheduled. Please keep all wound care follow up appointments as this is vital in healing of your chronic wounds. Continue all medications as prescribed. Recommend to STOP smoking as this will also aid in wound healing. OTHER INSTRUCTIONS: Seek medical attention if you have: * temperature above 101 * chest pain or trouble breathing * abdominal pain, nausea, vomiting * diarrhea, dark stools or bloody stools * any unanswered questions or concerns Call 911 if symptoms are severe. Please take good care of yourself. It has been a pleasure taking care of you. Please take care of yourself. If you have any questions regarding your recent hospitalization please contact [facility] and request Javier Marino @ [phone]. Yanira Sims PA-C Total Time Total Time Spent Total Time Spent (In Minutes): 45 minutes Supervising Physician Co-Signing Physician Notes Patient is seen and examined at bedside. Denies any significant leg wound pain today. No new complaints. I personally reviewed and examined the patient in person. Agree with transitioning IV cefepime to ciprofloxacin to complete the antibiotic course. Continue clotrimazole for tenia infection. May need a repeat dose of fluconazole as outpatient. Advised to follow-up with wound clinic upon discharge I personally reviewed the record. Patient is interviewed and examined at bedside. Patient's care is coordinated with Yanira eLmus. Please refer to the documentation above for details of patient's presentation and for discussion of other issues.
== END 2023-01-18 12:15 | disposition home or self-care (01) | DRG 603 ==
LOC: ED 08:59 → 3N 12:32 → SUATTDRO 12:32 → 3N 13:27

== ENCOUNTER 2023-02-03 12:29 | Inpatient (IN) ==
[2023-02-03] MEDS ORDERED: ALBUT/IPRATROP 3MG/0.5MG NEB 3 ML VIAL NEB STA (13:35)
[2023-02-03] MEDS ORDERED: ARTIFICIAL TEARS OP STA (13:35)
[2023-02-03] MEDS ORDERED: LORATADINE 10 MG TAB PO ONE (13:35)
[2023-02-03] MEDS ORDERED: methylPREDNISolone 125 MG/2 ML VIAL IV STA (13:35)
[2023-02-03] MEDS ORDERED: guaiFENesin 600 MG TABCR PO STA (13:35)
[2023-02-03] MEDS ORDERED: SODIUM CHLORIDE 0.9% 1000ML 2,000 ML IV ONE (13:37)
[2023-02-03] MEDS ORDERED: SODIUM CHLORIDE 0.65% NA SOLN 45 ML (OCEAN) ONE (13:38)
[2023-02-03] MEDS ORDERED: oxyCODONE/ACETAMINOPHEN 5mg/325mg TAB PO STA (13:43)
--- NOTE | 2023-02-03 14:05 | Emergency Department Note ---
Impression & Plan Venous ulcers of both lower extremities, Wound infection, COPD exacerbation, Conjunctivitis ED Provider Note NAME: DIAZ PEREZ AGE: 47 SEX: M ARRIVES VIA: Walk-In INFORMANT: Patient ED PROVIDER(S): Jalen Baeza MD CHIEF COMPLAINT: Wound infection, Bronchitis PLAN: Disposition: Admit MEDICAL DECISION MAKING: The patient is a pleasant 47-year-old gentleman with a past medical history of type 2 diabetes with neuropathy, chronic venous stasis of lower extremities, history of DVT on anticoagulation, chronic pain, GERD, asthma/COPD, history of alcoholic cirrhosis which he reports he has been free of alcohol use since May 2022, who presents to the emergency department via walk-in for evaluation of recurrence of worsening of left lower extremity ulcer for which he was admitted to this facility from 01/12-01/18 treated with IV antibiotics and discharged on oral antibiotics. The patient reports that he has been doing his home wound dressing changes and had his first appointment with the [facility] wound clinic today but because of the development of respiratory symptoms over the past several days with cough, congestion he reports they would not see him. Nevertheless he feels his skin ulcerations have been worsening and feels he needs IV antibiotics again. He denies any fevers. He denies vomiting or diarrhea. He does smoke daily. On arrival the patient is fatigued appearing but no distress, afebrile with stable vital signs. He appears clinically dry. He has wheezes of bilateral lung johnson. He has boggy nasal turbinates. He has conjunctival injection and serous tearing of bilateral eyes. EOMI. No nystamgus. PEARRL. EKG without overt acute ischemia. CXR negative for acute cardiopulmonary process. Plain films of the left tib-fib negative for osseous involvement. WBC 4.5K nonspecific. H/H and platelets within normal limits. ESR is elevated at 76 and CRP at 4.2, nonspecific and middle range for the patient compared to prior values. Chemistry without metabolic acidosis. Lactic acid 0.9, within normal limits. LFTs unremarkable. Procalcitonin is undetectable. TSH within normal limits. UA without evidence of infection. Respiratory viral panel/BioFire was negative. Empiric treatment for the patient's wound infection initiated with IV Zosyn and daptomycin. Patient does have a prior history of Pseudomonas. Solumedrol and Duoneb for COPD flare. Patient's prescribed Percocet given for pain. Case was discussed with Yanira Herrera PAC with Dr. Barker [facility] hospitalist, who will evaluate the patient for admission. Triage Nursing notes reviewed and agree them. Prior/outside medical records reviewed Vital Signs: reviewed Differential diagnosis: Cellulitis, abscess, MRSA infection, DVT, necrotizing fasciitis, dermatitis, drug eruption, allergic reaction, as well as other pathologies. ER treatment provided: See below. Diagnostics interpreted by me: ECG: NSR, 72 bpm, no ectopy, no overt ST elevation or depression. Cardiac Monitoring: An order for continuous cardiac monitoring was placed and demonstrated NSR, 72 bpm, no ectopy. Laboratory studies: See below Imaging studies: See below Consultation(s): Yanira Herrera PAC with Dr. Barker [facility] hospitalist HPI: The patient is a pleasant 47-year-old gentleman with a past medical history of type 2 diabetes with neuropathy, chronic venous stasis of lower extremities, history of DVT on anticoagulation, chronic pain, GERD, asthma/COPD, history of alcoholic cirrhosis which she reports he has been free of alcohol use since May 2022, who presents emergency department via walk-in for evaluation of recurrence of worsening of left lower extremity ulcer for which he was admitted to this facility from 01/12-01/18 treated with IV antibiotics and discharged on oral antibiotics. The patient reports that he has been doing his home wound dressing changes and had his first appointment with the wound clinic today but because of the development of respiratory symptoms over the past several days with cough, congestion he reports he would not see him. Nevertheless he feels his skin ulcerations have been worsening and feels he needs IV antibiotics again. He denies any fevers. He denies vomiting or diarrhea. He does smoke daily. ROS: See above HPI for pertinent positives & negatives. A total of 10 systems reviewed and were otherwise negative. VITALS:See Below PHYSICAL EXAMINATION: GENERAL: Awake, alert, well-appearing, in no distress HENT: Normocephalic, atraumatic. Oropharynx dry mucous membranes no posterior pharyngeal injection, tongue elevation or trismus. EYES: Normal conjunctiva. Sclera non-icteric. Injection and serous tearing of bilateral eyes. Extraocular movements are intact without pain. He has boggy nasal turbinates. No significant maxillary or frontal sinus tenderness. NECK: Supple. No nuchal rigidity. FROM. No JVD. RESPIRATORY: Wheezes of bilateral lung johnson with normal respiratory effort. CARDIAC: Regular rate, normal rhythm. Extremities warm and well perfused. Pulses equal. ABDOMEN: Soft, non-distended. No tenderness to palpation. No rebound or guarding. No masses. RECTAL: Deferred. MUSCULOSKELETAL: Chest examination reveals no tenderness. The back is symmetrical on inspection without obvious abnormality. There is no CVA tenderness to palpation. No joint edema. LOWER EXTREMITIES: There are chronic ulcerations of bilateral lower legs with increased erythema warmth and tenderness with scant serous discharge of the left medial lower leg ulcer without under crepitus. NEURO: Normal sensorium. No sensory or motor deficits noted. SKIN: No rash or jaundice noted. Jalen Baeza MD Past Med/Surg History Medical History (Updated 02/03/23 @ 21:42 by Jalen Baeza MD) Anxiety and depression Asthma USED RESCUE INHALER TODAY Blood clotting disorder ? NAME Cellulitis BILAT LEGS (WRAPS LEGS/DRY CLOTH) CURRENTLY HAS SOME OPEN WOUNDS>GOES TO WOUND CLINIC/MAINE Chronic deep vein thrombosis (DVT) 2018 (HOSPITALIZED AT [facility]) Chronic narcotic use Chronic ulcer of lower extremity RT LEG ONLY OPEN WOUND AT THIS TIME Chronic venous stasis dermatitis of both lower extremities Cirrhosis Diabetes mellitus, type 2 GERD (gastroesophageal reflux disease) History of ETOH abuse QUIT 2018 HTN (hypertension) Hyperlipidemia Pulmonary embolism 13 YEARS AGO ? DETAILS Pulmonary nodule CT chest 04/12/18 - 4 mm RUL nodule, f/u 12 months Tobacco abuse Type 2 diabetes mellitus Surgical History History of anesthesia reaction WITH A-PORT INSERTION, WOKE UP IN MIDDLE OF PROCEDURE History of vascular access device APORT IN RT CHEST (IN PLACE) [place] teeth removed Family History Father ETOH abuse Cirrhosis Mother Hypercoagulable state Prothrombin Factor II Mutation, 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, boderline hyperhomocystemia Social History Smoking Status: Current every day smoker Tobacco Type: Cigarettes Cigarettes Per Day: 3; Second Hand Exposure: No; Do You Dip or Chew Tobacco: No; Tobacco Cessation Education Requested by Patient: Yes Hx Alcohol Use: No Hx Substance Use: No Preferred Language: Iraqi Communication Ability: Effective Visual Impairment: No Limitations Hearing Ability: Normal Cable Television Installer Required: No Beliefs That Will Affect Care: None marital status: Current Living Situation: Alone How many Children do You have: 0 Other Information That Helps Us Care for You: No Feels Safe at Home: Yes Safety Concerns: Feels Safe At This Time Assistive Devices: Hospital Bed and Walker Allergies Allergies Allergy/AdvReac Type Severity Reaction Status Date / Time peas Allergy Severe Anaphylaxis Verified 01/12/23 10:36 tuna oil Allergy Severe Anaphylaxis Verified 01/12/23 14:22 to "tuna" sulfamethoxazole Allergy Intermediate hives Verified 01/12/23 10:36 trimethoprim Allergy Intermediate hives Verified 01/12/23 10:36 Home Meds Home Medications Medication Instructions Recorded Confirmed albuterol sulfate 90 mcg/actuation 1 puff inhalation Q6H PRN 05/09/18 02/03/23 aerosol inhaler (Ventolin HFA) Shortness Of Breath folic acid 1 mg tablet 1 mg PO QAM 05/09/18 02/03/23 omeprazole 20 mg capsule,delayed 20 mg PO BID 05/09/18 02/03/23 release diphenhydramine HCl 25 mg capsule 25 - 50 mg PO Q6H PRN Itching 10/23/19 02/03/23 (Benadryl) furosemide 80 mg tablet 80 mg PO BID17 10/23/19 02/03/23 atorvastatin 10 mg tablet 10 mg PO QAM 06/05/20 02/03/23 gabapentin 600 mg tablet 600 mg PO TID 06/05/20 02/03/23 multivitamin 1 tab PO QAM 06/05/20 02/03/23 spironolactone 50 mg tablet 50 mg PO BID 06/05/20 02/03/23 buspirone 15 mg tablet 15 mg PO BID 10/02/22 02/03/23 fluoxetine 20 mg capsule 20 mg PO HS 10/02/22 02/03/23 fluticasone 500 mcg-salmeterol 50 1 inh inhalation BID 10/02/22 02/03/23 mcg/dose blistr powdr for inhalation metformin 1,000 mg tablet 1,000 mg PO BID 10/02/22 02/03/23 montelukast 10 mg tablet 10 mg PO DAILY 10/02/22 02/03/23 hydroxyzine HCl 10 mg tablet 10 mg PO Q8H PRN Itching 10/29/22 02/03/23 tiotropium bromide 2.5 2 inh inhalation DAILY 10/29/22 02/03/23 mcg/actuation mist for inhalation (Spiriva Respimat) white petrolatum-mineral oil 1 applic EXT TID PRN Skin 10/29/22 02/03/23 topical cream (Dermacerin topical Irritation cream) Previous Rx's Medication Instructions Recorded apixaban 5 mg tablet (Eliquis) 5 mg PO BID #60 tabs 10/04/22 ammonium lactate 5 % lotion 1 applic EXT BID #226 grams 10/08/22 (Lac-Hydrin Five) oxycodone-acetaminophen 5 mg-325 1 tab PO Q8H PRN pain, severe #18 01/17/23 mg tablet tabs clotrimazole 1 % topical cream 1 applic EXT BID #45 grams 01/18/23 Results & Data (ED) Vital Signs Vital Signs - 24 hr 02/03/23 12:32 02/03/23 16:07 02/03/23 16:07 Temperature 36.6 C Temperature Source Temporal Artery Scan Pulse Rate 96 H Pulse Rate [Apical] 75 Respiratory Rate 20 14 Respiratory Effort / Characteristics Non-Labored Spontaneous Respiratory Depth Normal Blood Pressure 131/63 Blood Pressure [Right Arm] 147/82 H Blood Pressure Mean 85 Blood Pressure Mean [Right Arm] 103 Pulse Oximetry 98 98 Oxygen Delivery Method Room Air Room Air Room Air Sepsis Recent Fever Within 48 Hours No Sepsis New/Unexplained Change in Mental Status N/A Sepsis Action Taken by Nursing No Action Required 02/03/23 17:01 Temperature Temperature Source Pulse Rate Pulse Rate [Apical] 80 Respiratory Rate 14 Respiratory Effort / Characteristics Respiratory Depth Blood Pressure Blood Pressure [Right Arm] 157/90 H Blood Pressure Mean Blood Pressure Mean [Right Arm] 112 Pulse Oximetry 98 Oxygen Delivery Method Room Air Sepsis Recent Fever Within 48 Hours Sepsis New/Unexplained Change in Mental Status Sepsis Action Taken by Nursing Laboratory Data Attestation: I reviewed the patient's lab results. 02/03/23 15:23 02/03/23 15:23 Lab Results 02/03/23 02/03/23 02/03/23 Range/Units 15:15 15:23 15:23 WBC (4.8-10.8) K/ul RBC (4.70-6.10) M/uL Hgb (14.0-18.0) g/dl Hct (42.0-52.0) % MCV (80.0-100.0) fL MCH (25.0-34.0) pg MCHC (32.0-36.0) g/dL RDW Std Deviation (36.4-46.3) fL RDW Coeff of Kip (11.5-14.5) % Plt Count (130-400) K/uL MPV (9.4-12.4) fL Immature Gran % (Auto) % Neut % (Auto) % Lymph % (Auto) % [place] % (Auto) % Eos % (Auto) % Baso % (Auto) % Neut # (Auto) (1.40-6.50) K/uL Lymph # (Auto) (1.2-3.4) K/uL [place] # (Auto) (0.11-0.59) K/uL Eos # (Auto) (0-0.50) K/uL Baso # (Auto) (0-0.2) K/uL Immature Gran # (Auto) (0.01-0.20) K/uL Platelet Estimate (Normal) ESR 76 H (0-15) mm/hr PT (9.0-12.0) Seconds INR (0.9-1.1) Sodium 138 (136-145) mmol/L Potassium 3.6 (3.5-5.1) mmol/L Chloride 108 H (98-107) mmol/L Carbon Dioxide 24 (21-32) mmol/L Anion Gap 6 (3-11) BUN 7 (6-23) mg/dl Creatinine 0.62 (0.6-1.4) mg/dl Est Cr Clr Drug Dosing 169.1 ml/min Est GFR ( Amer) 136.0 ml/min Est GFR (Non-Af Amer) 117.3 ml/min BUN/Creatinine Ratio 11.3 (10-20) Glucose 113 H (70-99(Fasting)) mg/dl Lactate (0.4-2.0) mmol/L Calcium 8.9 (8.6-10.3) mg/dl Total Bilirubin 0.4 (0.2-1.0) mg/dl AST 12 L (13-39) U/L ALT 12 (7-52) U/L Alkaline Phosphatase 70 (34-104) U/L C-Reactive Protein 4.26 H (0-0.5) mg/dl Total Protein 7.6 (6.0-8.3) gm/dl Albumin 3.6 (3.4-5.0) gm/dl Globulin 4.0 (2.5-4.0) gm/dl Albumin/Globulin Ratio 0.9 (0.9-2) Procalcitonin (0-0.5) ng/ml TSH (0.300-4.500) uIu/ml Urine Color Urine Appearance (Clear) Urine pH (4.5-7.5) Ur Specific Decker (1.000-1.030) Urine Protein (Negative) Urine Glucose (UA) (Negative) Urine Ketones (Negative) Urine Blood (Negative) Urine Nitrite (Negative) Urine Bilirubin (Negative) Urine Urobilinogen (Negative) Ur Leukocyte Esterase (Negative) Adenovirus (PCR) Not Detected (NotDetected) B. pertussis DNA (PCR) Not Detected (NotDetected) B.parapertussis DNA PCR Not Detected (NotDetected) C. pneumoniae DNA (PCR) Not Detected (NotDetected) Coronavirus OC43 (PCR) Not Detected (NotDetected) Coronavirus HKU1 (PCR) Not Detected (NotDetected) Coronavirus 229E (PCR) Not Detected (NotDetected) SARS-CoV-2 (PCR) Not Detected (NotDetected) Coronavirus NL63 (PCR) Not Detected (NotDetected) Human Metapneumovir PCR Not Detected (NotDetected) Influenza Type A (PCR) Not Detected (NotDetected) Influenza Type B (PCR) Not Detected (NotDetected) M. pneumoniae (PCR) Not Detected (NotDetected) Parainfluenza 1 (PCR) Not Detected (NotDetected) Parainfluenza 2 (PCR) Not Detected (NotDetected) Parainfluenza 3 (PCR) Not Detected (NotDetected) Parainfluenza 4 (PCR) Not Detected (NotDetected) RSV (PCR) Not Detected (NotDetected) Entero/Rhino (PCR) Not Detected (NotDetected) 02/03/23 02/03/23 02/03/23 Range/Units 15:23 15:23 15:23 WBC 4.54 L (4.8-10.8) K/ul RBC 5.54 (4.70-6.10) M/uL Hgb 15.1 (14.0-18.0) g/dl Hct 45.2 (42.0-52.0) % MCV 81.6 (80.0-100.0) fL MCH 27.3 (25.0-34.0) pg MCHC 33.4 (32.0-36.0) g/dL RDW Std Deviation 41.5 (36.4-46.3) fL RDW Coeff of Kip 14.1 (11.5-14.5) % Plt Count 162 (130-400) K/uL MPV 10.1 (9.4-12.4) fL Immature Gran % (Auto) 0.7 % Neut % (Auto) 80.8 % Lymph % (Auto) 11.2 % [place] % (Auto) 4.4 % Eos % (Auto) 2.0 % Baso % (Auto) 0.9 % Neut # (Auto) 3.67 (1.40-6.50) K/uL Lymph # (Auto) 0.51 L (1.2-3.4) K/uL [place] # (Auto) 0.20 (0.11-0.59) K/uL Eos # (Auto) 0.09 (0-0.50) K/uL Baso # (Auto) 0.04 (0-0.2) K/uL Immature Gran # (Auto) 0.03 (0.01-0.20) K/uL Platelet Estimate Decreased L (Normal) ESR (0-15) mm/hr PT (9.0-12.0) Seconds INR (0.9-1.1) Sodium (136-145) mmol/L Potassium (3.5-5.1) mmol/L Chloride (98-107) mmol/L Carbon Dioxide (21-32) mmol/L Anion Gap (3-11) BUN (6-23) mg/dl Creatinine (0.6-1.4) mg/dl Est Cr Clr Drug Dosing ml/min Est GFR ( Amer) ml/min Est GFR (Non-Af Amer) ml/min BUN/Creatinine Ratio (10-20) Glucose (70-99(Fasting)) mg/dl Lactate 0.9 (0.4-2.0) mmol/L Calcium (8.6-10.3) mg/dl Total Bilirubin (0.2-1.0) mg/dl AST (13-39) U/L ALT (7-52) U/L Alkaline Phosphatase (34-104) U/L C-Reactive Protein (0-0.5) mg/dl Total Protein (6.0-8.3) gm/dl Albumin (3.4-5.0) gm/dl Globulin (2.5-4.0) gm/dl Albumin/Globulin Ratio (0.9-2) Procalcitonin (0-0.5) ng/ml TSH 1.400 (0.300-4.500) uIu/ml Urine Color Urine Appearance (Clear) Urine pH (4.5-7.5) Ur Specific Decker (1.000-1.030) Urine Protein (Negative) Urine Glucose (UA) (Negative) Urine Ketones (Negative) Urine Blood (Negative) Urine Nitrite (Negative) Urine Bilirubin (Negative) Urine Urobilinogen (Negative) Ur Leukocyte Esterase (Negative) Adenovirus (PCR) (NotDetected) B. pertussis DNA (PCR) (NotDetected) B.parapertussis DNA PCR (NotDetected) C. pneumoniae DNA (PCR) (NotDetected) Coronavirus OC43 (PCR) (NotDetected) Coronavirus HKU1 (PCR) (NotDetected) Coronavirus 229E (PCR) (NotDetected) SARS-CoV-2 (PCR) (NotDetected) Coronavirus NL63 (PCR) (NotDetected) Human Metapneumovir PCR (NotDetected) Influenza Type A (PCR) (NotDetected) Influenza Type B (PCR) (NotDetected) M. pneumoniae (PCR) (NotDetected) Parainfluenza 1 (PCR) (NotDetected) Parainfluenza 2 (PCR) (NotDetected) Parainfluenza 3 (PCR) (NotDetected) Parainfluenza 4 (PCR) (NotDetected) RSV (PCR) (NotDetected) Entero/Rhino (PCR) (NotDetected) 02/03/23 02/03/23 02/03/23 Range/Units 15:23 15:23 15:35 WBC (4.8-10.8) K/ul RBC (4.70-6.10) M/uL Hgb (14.0-18.0) g/dl Hct (42.0-52.0) % MCV (80.0-100.0) fL MCH (25.0-34.0) pg MCHC (32.0-36.0) g/dL RDW Std Deviation (36.4-46.3) fL RDW Coeff of Kip (11.5-14.5) % Plt Count (130-400) K/uL MPV (9.4-12.4) fL Immature Gran % (Auto) % Neut % (Auto) % Lymph % (Auto) % [place] % (Auto) % Eos % (Auto) % Baso % (Auto) % Neut # (Auto) (1.40-6.50) K/uL Lymph # (Auto) (1.2-3.4) K/uL [place] # (Auto) (0.11-0.59) K/uL Eos # (Auto) (0-0.50) K/uL Baso # (Auto) (0-0.2) K/uL Immature Gran # (Auto) (0.01-0.20) K/uL Platelet Estimate (Normal) ESR (0-15) mm/hr PT 10.5 (9.0-12.0) Seconds INR 1.0 (0.9-1.1) Sodium (136-145) mmol/L Potassium (3.5-5.1) mmol/L Chloride (98-107) mmol/L Carbon Dioxide (21-32) mmol/L Anion Gap (3-11) BUN (6-23) mg/dl Creatinine (0.6-1.4) mg/dl Est Cr Clr Drug Dosing ml/min Est GFR ( Amer) ml/min Est GFR (Non-Af Amer) ml/min BUN/Creatinine Ratio (10-20) Glucose (70-99(Fasting)) mg/dl Lactate (0.4-2.0) mmol/L Calcium (8.6-10.3) mg/dl Total Bilirubin (0.2-1.0) mg/dl AST (13-39) U/L ALT (7-52) U/L Alkaline Phosphatase (34-104) U/L C-Reactive Protein (0-0.5) mg/dl Total Protein (6.0-8.3) gm/dl Albumin (3.4-5.0) gm/dl Globulin (2.5-4.0) gm/dl Albumin/Globulin Ratio (0.9-2) Procalcitonin < 0.05 (0-0.5) ng/ml TSH (0.300-4.500) uIu/ml Urine Color Yellow Urine Appearance Clear (Clear) Urine pH 6.5 (4.5-7.5) Ur Specific [place] 1.016 (1.000-1.030) Urine Protein Negative (Negative) Urine Glucose (UA) Negative (Negative) Urine Ketones Negative (Negative) Urine Blood Negative (Negative) Urine Nitrite Negative (Negative) Urine Bilirubin Negative (Negative) Urine Urobilinogen Negative (Negative) Ur Leukocyte Esterase Negative (Negative) Adenovirus (PCR) (NotDetected) B. pertussis DNA (PCR) (NotDetected) B.parapertussis DNA PCR (NotDetected) C. pneumoniae DNA (PCR) (NotDetected) Coronavirus OC43 (PCR) (NotDetected) Coronavirus HKU1 (PCR) (NotDetected) Coronavirus 229E (PCR) (NotDetected) SARS-CoV-2 (PCR) (NotDetected) Coronavirus NL63 (PCR) (NotDetected) Human Metapneumovir PCR (NotDetected) Influenza Type A (PCR) (NotDetected) Influenza Type B (PCR) (NotDetected) M. pneumoniae (PCR) (NotDetected) Parainfluenza 1 (PCR) (NotDetected) Parainfluenza 2 (PCR) (NotDetected) Parainfluenza 3 (PCR) (NotDetected) Parainfluenza 4 (PCR) (NotDetected) RSV (PCR) (NotDetected) Entero/Rhino (PCR) (NotDetected) Administered Medications Morphine Sulfate (Morphine Sulfate 2 Mg/Ml Carp) 1 mg IV DAILY PRN PRN Reason: dressing changes Stop: 02/17/23 20:31 Last Admin: 02/03/23 21:31 Dose: 1 mg Documented By: TKB Discontinued Medications Albuterol (Albut/Ipratrop 3mg/0.5mg Neb 3 Ml Vial) 3 ml NEB NOW STA; Protocol Stop: 02/03/23 13:36 Last Admin: 02/03/23 14:05 Dose: 3 ml Documented By: MARAH Artificial Tears (Artificial Tears) 2 drops OP NOW STA Stop: 02/03/23 13:36 Last Admin: 02/03/23 14:06 Dose: 2 drops Documented By: MARAH Guaifenesin (Guaifenesin 600 Mg Tabcr) 1,200 mg PO NOW STA Stop: 02/03/23 13:36 Last Admin: 02/03/23 14:06 Dose: 1,200 mg Documented By: MARAH Sodium Chloride (Nss 1000ml) 2,000 mls @ 999 mls/hr IV .Q2H1M ONE Stop: 02/03/23 15:37 Last Infusion: 02/03/23 16:08 Dose: 0 mls/hr Documented By: Admin: 02/03/23 14:07 Dose: 999 mls/hr Documented By: MARAH Piperacillin Sod/Tazobactam Sod (Zosyn) 4.5 gm in 120 mls @ 240 mls/hr IV NOW ONE Stop: 02/03/23 16:07 Last Infusion: 02/03/23 16:31 Dose: 0 mls/hr Documented By: Admin: 02/03/23 16:01 Dose: 240 mls/hr Documented By: RADHIKA Daptomycin 425 mg/ Syringe 8.5 mls @ 4.25 mls/min IV NOW STA; Protocol Stop: 02/03/23 15:39 Last Admin: 02/03/23 17:21 Dose: 4.25 mls/min Documented By: RADHIKA Loratadine (Loratadine 10 Mg Tab) 10 mg PO NOW ONE Stop: 02/03/23 13:36 Last Admin: 02/03/23 14:06 Dose: 10 mg Documented By: MARAH Methylprednisolone (Methylprednisolone 125 Mg/2 Ml Vial) 125 mg IV NOW STA Stop: 02/03/23 13:36 Last Admin: 02/03/23 14:07 Dose: 125 mg Documented By: MARAH Oxycodone/Acetaminophen (Oxycodone/Acetaminophen 5mg/325mg Tab) 1 tab PO NOW STA Stop: 02/03/23 13:44 Last Admin: 02/03/23 14:06 Dose: 1 tab Documented By: MARAH Sodium Chloride (Sodium Chloride 0.65% Na Soln 45 Ml ([place])) 2 sprays NA NOW ONE Stop: 02/03/23 13:39 Last Admin: 02/03/23 14:07 Dose: 2 sprays Documented By: MARAH Imaging Data Radiologist's Impression: Chest X-Ray 02/03/23 13:35 XR chest 1V portable HISTORY: 47 years-old Male cough acute cough COMPARISON: 10/02/2022 TECHNIQUE: AP view of the chest FINDINGS: Cardiac silhouette is enlarged. Right IJ Vuhqkz-g-Wzva catheter is unchanged. Chronic interstitial coarsening. No pneumothorax, pleural effusion or lobar airspace consolidation. Bones appear grossly intact. IMPRESSION: No acute process. ACT 112: Negative or not required by law. The above report was generated using voice recognition software. It may contain grammatical, syntax or spelling errors. Electronically signed by: Dante Cavazos M.D. 02/03/2023 3:51 PM Tibia/Fibula X-Ray 02/03/23 13:42 LEFT TIBIA AND FIBULA 2 VIEWS CLINICAL HISTORY: Ulcer. FINDINGS: AP and crosstable lateral portable views of the left tibia and fibula are compared to study dated 10/02/2022. The skeletal structures are osteopenic. No fracture is seen. There is no bony erosion. Benign-appearing periostitis is again seen along the tibial and fibular shafts. The knee and ankle joints are grossly maintained. An ulceration is again suggested within the medial soft tissues above the ankle joint. There is surrounding soft tissue edema. No radiod ense foreign body or soft tissue gas is seen. There is atherosclerotic calcification of the regional arteries. IMPRESSION: 1. No acute bony abnormality is seen involving the left tibia or fibula. 2. Soft tissue ulceration with surrounding edema as above. This is similar to previous. Electronically signed by: Emil Morelos M.D. 02/03/2023 3:29 PM Discharge Plan Visit Data Chief Complaint: Infection Stated Complaint: BLURRED VISION, SINUS CONGESTION, INFECTION IN LEG ED Provider: Jalen Baeza Discharge Problem: Venous ulcers of both lower extremities, Wound infection, COPD exacerbation, Conjunctivitis Patient Disposition: Admitted As Inpatient Discharge Instructions Interventions: ED Discharge Assessment Last Done: 02/03/23 20:08
--- NOTE | 2023-02-03 15:30 | XRay Report ---
LEFT TIBIA AND FIBULA 2 VIEWS CLINICAL HISTORY: Ulcer. FINDINGS: AP and crosstable lateral portable views of the left tibia and fibula are compared to study dated 10/02/2022. The skeletal structures are osteopenic. No fracture is seen. There is no bony erosio n. Benign-appearing periostitis is again seen along the tibial and fibular shafts. The knee and ankle joints are grossly maintained. An ulceration is again suggested within the medial soft tissues above the ankle joint. There is surrounding soft tissue edema. No radiodense foreign body or soft tissue g as is seen. There is atherosclerotic calcification of the regional arteries. IMPRESSION: 1. No acute bony abnormality is seen involving the left tibia or fibula. 2. Soft tissue ulceration with surrounding edema as above. This is similar to previous. Electronically signed by: Emil Morelos M.D. 02/03/2023 3:29 PM
[2023-02-03] MEDS ORDERED: DAPTOmycin 425 MG in SYRINGE 0 ML IV STA (15:38)
[2023-02-03] MEDS ORDERED: PIPERACILLIN/TAZOBACTAM 4.5 GM/120 ML BAG IV ONE (15:38)
--- NOTE | 2023-02-03 15:52 | XRay Report ---
XR chest 1V portable HISTORY: 47 years-old Male cough acute cough COMPARISON: 10/02/2022 TECHNIQUE: AP view of the chest FINDINGS: Cardiac silhouette is enlarged. Right IJ Dxigjc-b-Ksuq catheter is unchanged. Chronic interstitial co arsening. No pneumothorax, pleural effusion or lobar airspace consolidation. Bones appear grossly int act. IMPRESSION: No acute process. ACT 112: Negative or not required by law. The above report was generated using voice recognition software. It may contain grammatical, syntax o r spelling errors. Electronically signed by: Dante Cavazos M.D. 02/03/2023 3:51 PM
[2023-02-03 16:04] LABS: Appearance Urine Clear (Clear); Bilirubin Urine Negative (Negative); Blood Urine Negative (Negative); Color Urine Yellow; Glucose Urine UA Negative (Negative); Ketones Urine Negative (Negative); Leukocyte Esterase Urine Negative (Negative); Nitrite Urine Negative (Negative); Protein Urine Negative (Negative); Specific Gravity Urine 1.016 (1.000-1.030); Urobilinogen Urine Negative (Negative); pH Urine 6.5 (4.5-7.5)
[2023-02-03 16:08] LABS: Albumin Globulin Ratio 0.9 (0.9-2); Albumin Level 3.6 gm/dl (3.4-5.0); BUN Creatinine Ratio 11.3 (10-20); Bilirubin,Total 0.4 mg/dl (0.2-1.0); C Reactive Protein 4.26 mg/dl (0-0.5); Calcium 8.9 mg/dl (8.6-10.3); Creatinine Clr Calc Pharmacy 169.1 ml/min; Est GFR (Non-African American) 117.3 ml/min; Potassium 3.6 mmol/L (3.5-5.1); Total Protein 7.6 gm/dl (6.0-8.3)
[2023-02-03 16:20] LABS: Basophils # (auto) 0.04 K/uL (0-0.2); Basophils % (auto) 0.9 %; Eosinophils # (auto) 0.09 K/uL (0-0.50); Hematocrit (blood only) 45.2 % (42.0-52.0); Hemoglobin 15.1 g/dl (14.0-18.0); Immature Granulocytes # (auto) 0.03 K/uL (0.01-0.20); Immature Granulocytes % (auto) 0.7 %; Lymphocytes # (auto) 0.51 K/uL (1.2-3.4); Lymphocytes % (auto) 11.2 %; Mean Corpuscular Hemoglobin 27.3 pg (25.0-34.0); Mean Corpuscular Hgb Conc 33.4 g/dL (32.0-36.0); Mean Corpuscular Volume 81.6 fL (80.0-100.0); Mean Platelet Volume 10.1 fL (9.4-12.4); Monocytes % (auto) 4.4 %; Neutrophils # (auto) 3.67 K/uL (1.40-6.50); Neutrophils % (auto) 80.8 %; Platelet Count 162 K/uL (130-400); Platelet Estimate Decreased (Normal); Prothrombin Time 10.5 Seconds (9.0-12.0); RDW Coefficient of Variation 14.1 % (11.5-14.5); RDW Standard Deviation 41.5 fL (36.4-46.3); Red Blood Count 5.54 M/uL (4.70-6.10); White Blood Count 4.54 K/ul (4.8-10.8)
[2023-02-03 16:43] LABS: Adenovirus PCR Not Detected (NotDetected); Bordetella parapertussis PCR Not Detected (NotDetected); Bordetella pertussis PCR Not Detected (NotDetected); Chlamydia pneumoniae PCR Not Detected (NotDetected); Coronavirus 229E PCR Not Detected (NotDetected); Coronavirus CoV-2 (COVID19)PCR Not Detected (NotDetected); Coronavirus HKU1 PCR Not Detected (NotDetected); Coronavirus NL63 PCR Not Detected (NotDetected); Coronavirus OC43PCR Not Detected (NotDetected); Human Metapneumovirus PCR Not Detected (NotDetected); Influenza A PCR Not Detected (NotDetected); Influenza B PCR Not Detected (NotDetected); Mycoplasma pneumoniae PCR Not Detected (NotDetected); Parainfluenza Virus 1 PCR Not Detected (NotDetected); Parainfluenza Virus 2 PCR Not Detected (NotDetected); Parainfluenza Virus 3 PCR Not Detected (NotDetected); Parainfluenza Virus 4 PCR Not Detected (NotDetected); Respiratory Syncytial VirusPCR Not Detected (NotDetected); Rhinovirus/Enterovirus PCR Not Detected (NotDetected)
--- NOTE | 2023-02-03 19:18 | History & Physical Report ---
Date of Service February 03, 2023 Assessment & Plan (1) Cellulitis of left leg: (2) Wound infection: (3) Bacterial conjunctivitis: Plan Pt is a 47 yr male with a PMHx of DMII with neuropathy (controlled on last check), chronic venous stasis with lower extremity edema, Hx of DVT, Chronic pain, GERD, asthma/COPD, alcoholic cirrhosis, HLD, Mood disturbance who presents for evaluation of lower extremity wounds and bacterial conjunctivitis. Open lower extremity wounds in setting of Chronic Venous stasis changes, DM II Cellulitis of left lower extremity --LE MRI done 01/12 No fractures or evidence for osteomyelitis within the left lower leg. Subcutaneous edema within the distal left lower leg. Diffuse fatty atrophy of the majority of the left lower leg muscles with minimal edema distally. This is nonspecific but could be due to a chronic denervation injury. This remains unchanged. A 3 cm skin ulceration along the medial aspect of the distal lower leg. No evidence for an underlying abscess. -- Tib/Fib XR today revealed soft tissue ulceration similar to previous -CRP 4.26 -Normal lactic acid Blood cultures:ordered Wound cultures: obtained, previous growth includes MRSA and pseudomonas Continue vancomycin, cefepime for now Continue wound care Needs follow-up with wound clinic upon discharge - has not yet established with J[facility] Ling Bilateral eye conjunctivitis URI -sinus infection cipro gtts QID x 7 days warm compress/eyelid wash daily lacrilube bid antibiotics will also cover for sinusitis mupiriocin to b/l nares bid 2/2 crusting Neuropathy/chronic pain continue gabapentin Also on pain meds Alcoholic cirrhosis continue home lasix, spironolactone, folic acid H/O DVT continue Eliquis GERD continue PPI Asthma/COPD pt with chronic wheezing no cough, feels breathing at baseline continue home inhalers, Singulair Mood disorder continue buspar, hydroxyzine, fluoxetine HLD On statin DM II HbA1c 6.5 01/13/23 Hold PO meds Continue insulin while hospitalized for protocol Monitor BGs DVT Px: Eliquis Code Status: Full code Disposition to med/surg Pt was seen and examined in collaboration with Dr. Barker, please see addendum A total of 75 was spent coordinating, documenting, and providing care for this patient excluding time spent in the performance of separately billed services. This included personally viewing all current laboratories and imaging studies, medication reconciliation, outpatient chart review, and discussion with specialists. History of Present Illness Chief Complaint: Worsening lower extremity wounds and URI with red eyes x 1 week. Primary Care Provider: Risa Foreman MD Pt is a 47yo gentleman with a PMHx of DMII with neuropathy (controlled on last check), chronic venous stasis with lower extremity edema, Hx of DVT, Chronic pain, GERD, asthma/COPD, alcoholic cirrhosis, HLD, Mood disturbance who presents for evaluation of lower extremity wounds and URI x1 week. Of significance patient was recently hospitalized 01/12 to 01/17 secondary to left lower extremity wound and Pseudomonas infection. He was treated with IV cefepime and transition to oral ciprofloxacin for additional 5 days. He was also prescribed Xeroform and set up with [facility] wound clinic. Patient states since discharge within approximately 1 week he felt like his left lower extremity was becoming more warm and more painful. He denies any significant drainage. He ran out of supplies that the hospital gave him and states that his pharmacy never got the Xeroform prescription. Also in the past week he developed an upper respiratory infection with significant sinus congestion, postnasal drip and over the last 2 days the symptoms have significantly worsened. He now has itchy watery eyes, bilateral red eyes, photophobia, blurry vision and yellowish crusting discharge on his bilateral eyelashes. He states he currently cannot even drive because his eyes are so itchy, watery and blurry. He states every time he did his wound care he make sure he wear gloves and he does not feel like he touched his wound and then touched his eye. He denies any fever, chills, sweats, lightheadedness, dizziness, chest pain, shortness breath, cough, nausea, vomiting, abdominal pain. He is been compliant with his medications. He is currently requesting pain medications. In ED patient remained hemodynamically stable. His CBC and CMP was generally unremarkable. His CRP was 4.26 and ESR 76. His bio fire respiratory panel was negative. In ED patient was empirically cover with IV daptomycin and Zosyn. He received a dose of IV Solu-Medrol and albuterol due to ER provider concern for possible bronchitis. Allergies Allergy/AdvReac Type Severity Reaction Status Date / Time peas Allergy Severe Anaphylaxis Verified 01/12/23 10:36 tuna oil Allergy Severe Anaphylaxis Verified 01/12/23 14:22 to "tuna" sulfamethoxazole Allergy Intermediate hives Verified 01/12/23 10:36 trimethoprim Allergy Intermediate hives Verified 01/12/23 10:36 Home Medications Medication Instructions Recorded Confirmed Type albuterol sulfate 90 mcg/actuation 1 puff inhalation Q6H PRN 05/09/18 02/03/23 History aerosol inhaler (Ventolin HFA) Shortness Of Breath folic acid 1 mg tablet 1 mg PO QAM 05/09/18 02/03/23 History omeprazole 20 mg capsule,delayed 20 mg PO BID 05/09/18 02/03/23 History release diphenhydramine HCl 25 mg capsule 25 - 50 mg PO Q6H PRN Itching 10/23/19 02/03/23 History (Benadryl) furosemide 80 mg tablet 80 mg PO BID17 10/23/19 02/03/23 History atorvastatin 10 mg tablet 10 mg PO QAM 06/05/20 02/03/23 History gabapentin 600 mg tablet 600 mg PO TID 06/05/20 02/03/23 History multivitamin 1 tab PO QAM 06/05/20 02/03/23 History spironolactone 50 mg tablet 50 mg PO BID 06/05/20 02/03/23 History buspirone 15 mg tablet 15 mg PO BID 10/02/22 02/03/23 History fluoxetine 20 mg capsule 20 mg PO HS 10/02/22 02/03/23 History fluticasone 500 mcg-salmeterol 50 1 inh inhalation BID 10/02/22 02/03/23 History mcg/dose blistr powdr for inhalation metformin 1,000 mg tablet 1,000 mg PO BID 10/02/22 02/03/23 History montelukast 10 mg tablet 10 mg PO DAILY 10/02/22 02/03/23 History apixaban 5 mg tablet (Eliquis) 5 mg PO BID #60 tabs 10/04/22 02/03/23 Rx ammonium lactate 5 % lotion 1 applic EXT BID #226 grams 10/08/22 02/03/23 Rx (Lac-Hydrin Five) hydroxyzine HCl 10 mg tablet 10 mg PO Q8H PRN Itching 10/29/22 02/03/23 History tiotropium bromide 2.5 2 inh inhalation DAILY 10/29/22 02/03/23 History mcg/actuation mist for inhalation (Spiriva Respimat) white petrolatum-mineral oil 1 applic EXT TID PRN Skin 10/29/22 02/03/23 History topical cream (Dermacerin topical Irritation cream) oxycodone-acetaminophen 5 mg-325 1 tab PO Q8H PRN pain, severe #18 01/17/23 02/03/23 Rx mg tablet tabs clotrimazole 1 % topical cream 1 applic EXT BID #45 grams 01/18/23 02/03/23 Rx Past Med/Surg History Medical History (Updated 02/03/23 @ 19:14 by Yanira Sims PA-C) Anxiety and depression Asthma USED RESCUE INHALER TODAY Blood clotting disorder ? NAME Cellulitis BILAT LEGS (WRAPS LEGS/DRY CLOTH) CURRENTLY HAS SOME OPEN WOUNDS>GOES TO WOUND CLINIC[facility] Chronic deep vein thrombosis (DVT) 2017 (HOSPITALIZED AT [facility]) Chronic narcotic use Chronic ulcer of lower extremity RT LEG ONLY OPEN WOUND AT THIS TIME Chronic venous stasis dermatitis of both lower extremities Cirrhosis Diabetes mellitus, type 2 GERD (gastroesophageal reflux disease) History of ETOH abuse QUIT 2018 HTN (hypertension) Hyperlipidemia Pulmonary embolism 13 YEARS AGO ? DETAILS Pulmonary nodule CT chest 04/12/18 - 4 mm RUL nodule, f/u 12 months Tobacco abuse Type 2 diabetes mellitus Surgical History History of anesthesia reaction WITH A-PORT INSERTION, WOKE UP IN MIDDLE OF PROCEDURE History of vascular access device APORT IN RT CHEST (IN PLACE) [place] teeth removed Family History Father ETOH abuse Cirrhosis Mother Hypercoagulable state Prothrombin Factor II Mutation, 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, boderline hyperhomocystemia Social History Smoking Status: Current every day smoker Tobacco Type: Cigarettes Cigarettes Per Day: 3; Second Hand Exposure: Yes; Do You Dip or Chew Tobacco: No; Hx Alcohol Use: Yes Alcohol type: beer Alcohol Intake Frequency Comment: Pt reports quit drinking end of 07/2018 Hx Substance Use: No Preferred Language: Kyrgyz Communication Ability: Effective Visual Impairment: No Limitations Hearing Ability: Normal Senior Javascript Engineer Required: No Beliefs That Will Affect Care: None marital status: Current Living Situation: Significant Other How many Children do You have: 0 Feels Safe at Home: Yes Assistive Devices: None Review of Systems Review of Systems: All systems reviewed & are unremarkable except as noted in HPI & below Physical Exam Physical Exam: Constitutional: WD/WN, appears acutely ill, vitals as above, NAD, sitting up in bed, answers questions appropriate Head: Normocephalic, Atraumatic Eyes: Bilateral conjunctival injection sparing limbus, bilateral eyelid yellow crusts, PERRL, conjunctivae, anicteric sclerae ENMT: external ear and nose normal, crusting of bilateral nasal canal and hypertrophy of nasal turbinates ,oropharynx normal Neck: trachea midline, no thyromegaly normal visual inspection Respiratory: normal respiratory effort, lungs clear to auscultation, no wheeze, rales, rhonchi. Normal insp/exp effort, no accessory muscle use Cardiovascular: RRR, no murmur, bilateral lower extremity venous stasis changes with nodularity, left venous wound superior to medial malleoli are, left lower extremity tibial area is warm to touch Vessels: no JVD or carotid bruit Chest: normal inspection of chest Abdomen: normal bowel sounds, soft, nontender, no hepatosplenomegaly Musculoskeletal: no cyanosis or clubbing, extremities motor strength 5/5 Skin: no rashes, warm and dry normal turgor Neurologic: PERRL, EOMI, accommodation nl, no face palsy, no dysarthria CN's II-XI intact bilaterally and moves all extremities Psychiatric: A+Ox3, euthymic affect Lymphatic: no cervical or axillary lymphadenopathy : deferred Results & Data Results & Data Vital Signs (Past 12 Hours) Vital Signs Temp Pulse Pulse Resp BP BP Pulse Ox 02/03/23 18:03 75 146/81 H 97 02/03/23 17:01 80 14 157/90 H 98 02/03/23 16:07 02/03/23 16:07 75 14 147/82 H 98 02/03/23 12:32 36.6 C 96 H 20 131/63 98 O2 Del Method 02/03/23 18:03 Room Air 02/03/23 17:01 Room Air 02/03/23 16:07 Room Air 02/03/23 16:07 Room Air 02/03/23 12:32 Room Air COVID-19 Results Results COVID-19 Adm Lab Results: RBC 5.54 M/uL (4.70-6.10) 02/03/23 WBC 4.54 K/ul (4.8-10.8) L 02/03/23 Hgb 15.1 g/dl (14.0-18.0) 02/03/23 Hct 45.2 % (42.0-52.0) 02/03/23 Plt Count 162 K/uL (130-400) 02/03/23 Neutrophils (%) (Auto) 80.8 % 02/03/23 Lymphocytes (%) (Auto) 11.2 % 02/03/23 Monocytes # (Auto) 0.20 K/uL (0.11-0.59) 02/03/23 Eosinophils # (Auto) 0.09 K/uL (0-0.50) 02/03/23 Immature Granulocyte % (Auto) 0.7 % 02/03/23 Neutrophils # (Auto) 3.67 K/uL (1.40-6.50) 02/03/23 Lymphocytes # (Auto) 0.51 K/uL (1.2-3.4) L 02/03/23 Monocytes # (Auto) 0.20 K/uL (0.11-0.59) 02/03/23 Eosinophils # (Auto) 0.09 K/uL (0-0.50) 02/03/23 Basophils # (Auto) 0.04 K/uL (0-0.2) 02/03/23 Immature Granulocyte # (Auto) 0.03 K/uL (0.01-0.20) 3 Na 138 mmol/L (136-145) 02/03/23 K 3.6 mmol/L (3.5-5.1) 02/03/23 Cl 108 mmol/L (98-107) H 02/03/23 CO2 24 mmol/L (21-32) 02/03/23 Anion Gap 6 (3-11) 02/03/23 BUN 7 mg/dl (6-23) 02/03/23 Creatinine 0.62 mg/dl (0.6-1.4) 02/03/23 BUN/Creatinine Ratio 11.3 (10-20) 02/03/23 Glucose Level 113 mg/dl (70-99(Fasting)) H 02/03/23 Ca 8.9 mg/dl (8.6-10.3) 02/03/23 Total Bilirubin 0.4 mg/dl (0.2-1.0) 02/03/23 AST/SGOT 12 U/L (13-39) L 02/03/23 ALT/SGPT 12 U/L (7-52) 02/03/23 Alkaline Phosphatase 70 U/L (34-104) 02/03/23 Total Protein 7.6 gm/dl (6.0-8.3) 02/03/23 Albumin 3.6 gm/dl (3.4-5.0) 02/03/23 Globulin 4.0 gm/dl (2.5-4.0) 02/03/23 Albumin/Globulin Ratio 0.9 (0.9-2) 02/03/23 CRP 4.26 mg/dl (0-0.5) H 02/03/23 Procalcitonin < 0.05 ng/ml (0-0.5) 02/03/23 INR 1.0 (0.9-1.1) 02/03/23 Adenovirus (PCR) Not Detected (NotDetected) 02/03/23 B. parapertussis DNA (PCR) Not Detected (NotDetected) 05/20 B. pertussis DNA (PCR) Not Detected (NotDetected) 02/03/23 C. pneumoniae DNA (PCR) Not Detected (NotDetected) 3 Coronavirus Type OC43 (PCR) Not Detected (NotDetected) 05/20 Coronavirus Type HKU1 (PCR) Not Detected (NotDetected) 05/20 Coronavirus Type 229E (PCR) Not Detected (NotDetected) 05/20 COVID-19 PCR Not Detected (NotDetected) 02/03/23 Coronavirus Type NL63 (PCR) Not Detected (NotDetected) 05/20 Human Metapneumovirus (PCR) Not Detected (NotDetected) 05/20 Influenza Virus Type A (PCR) Not Detected (NotDetected) Influenza Virus Type B (PCR) Not Detected (NotDetected) M. pneumoniae (PCR) Not Detected (NotDetected) 02/03/23 Parainfluenza Type 1 (PCR) Not Detected (NotDetected) 05/20 Parainfluenza Type 2 (PCR) Not Detected (NotDetected) 05/20 Parainfluenza Type 3 (PCR) Not Detected (NotDetected) 05/20 Parainfluenza Type 4 (PCR) Not Detected (NotDetected) 05/20 RSV (PCR) Not Detected (NotDetected) 02/03/23 Enterovirus/Rhinovirus (PCR) Not Detected (NotDetected) Chest X-Ray 02/03/23 Code Status & VTE Plan Code Status FULL CODE VTE Prophylaxis Plan VTE Prophylaxis will be ordered: No Reason for no VTE drug order: Treatment not indicated Supervising Physician Co-Signing Physician Notes Mr. Hendrix is a 47 year old male with PMHx (per chart) of asthma/COPD, NIDDM-II (associated with HLP, c/b diabetic peripheral polyneuropathy and angiopathy), GERD, alcoholic cirrhosis, chronic venous stasis with lower extremity edema, Hx of DVT, Chronic pain, and Mood disturbance. He presented for evaluation of worsening lower extremity wounds and URI x1 week. He was recently admitted (01/12) d/t LLE wound with Pseudomonas infection. He was treated with Cefepime followed by Ciprofloxacin. At d/c he was also prescribed Xeroform and set up with [facility] wound clinic. Unfortunately he ran out of supplies given by the hospital and had difficulty filling prescriptions at his pharmacy. He went to follow up with the wound clinic today but they declined to see him due to respiratory/sinus symptoms. Here he is noted to have a suspected sinus infection, b/l conjunctivitis, and worsening of chronic LE wounds d/t non-compliance. At the time of my exam Mr. Hendrix's only complaints are LE pain and feeling hungry/thirsty. He states the meal he is eating during my exam is the first he has had in a day or two. He had a poor appetite but this resolved shortly after receiving IV abx. He does not notes ongoing nasal/sinus congestion, blurred vision, photophobia, b/l conjunctival discharge, itchy and watery eyes. He denies f/c/n/v, CP, abdominal pain, and diarrhea. He states he has no sob or wheeze beyond baseline. Gen: NAD, well nourished Head: NC AT Eyes: Bilateral conjunctival injection sparing limbus, bilateral eyelid yellow crusts, PERRL, conjunctivae, anicteric sclerae ENMT: external ear and nose normal, crusting of bilateral nasal canal and hypertrophy of nasal turbinates, oropharynx normal Neck: supple, trachea midline Respiratory: CTA, normal effort Cardiovascular: RRR, no murmur, bilateral lower extremity venous stasis changes with nodularity, left venous wound superior to medial malleoli are, left lower extremity tibial area is warm to touch Vessels: no JVD or carotid bruit Chest: normal inspection of chest Abdomen: + BS, soft, NT, ND, no guarding Musculoskeletal: normal bulk and tone Skin: warm and dry, wounds as above Neurologic: moves all extremities, no focal deficits Psychiatric: normal mood and affect We will continue on broad spectrum abx for now and consult wound care. Will not pursue further imaging as he recently had an MRI and x-ray at present is unrevealing. Will hold off on IV steroids (initiated in ED) as the pt reports respiratory status is at baseline. Rest per attested note above.
[2023-02-03] MEDS ORDERED: MAGNESIUM HYDROXIDE SUSP 30 ML UDC PO PRN (20:32)
[2023-02-03] MEDS ORDERED: ACETAMINOPHEN 325 MG TAB PO PRN (20:32)
[2023-02-03] MEDS ORDERED: DEXTROSE 50% 50 ML SYRINGE IV PRN (20:32)
[2023-02-03] MEDS ORDERED: ONDANSETRON INJ 2 MG/ML 2 ML VIAL IV PRN (20:32)
[2023-02-03] MEDS ORDERED: VANCOMYCIN CONSULT ACTIVE PRN (20:32)
[2023-02-03] MEDS ORDERED: GLUCAGON FOR INJ 1 MG VIAL SQ PRN (20:32)
[2023-02-03] MEDS ORDERED: hydrOXYzine HCl 10 MG TAB PO PRN (20:32)
[2023-02-03] MEDS ORDERED: ALUMINUM/MAGNESIUM SUSP 30 ML UDC PO PRN (20:32)
[2023-02-03] MEDS ORDERED: GLUCOSE 40% GEL 15 GM TUBE PO PRN (20:32)
[2023-02-03] MEDS ORDERED: POLYETHYLENE (MIRALAX) 17 GM PACK PO PRN (20:32)
[2023-02-03] MEDS ORDERED: CARBOHYDRATES FOR HYPOGLYCEMIA PO PRN (20:32)
[2023-02-03] MEDS ORDERED: XOPENEX/ATROVENT 0.63mg/0.5MG NEB COMBO NEB PRN (20:32)
[2023-02-03] MEDS ORDERED: GLUCOSE 10 TAB/TUBE PO PRN (20:32)
[2023-02-03] MEDS ORDERED: ALBUTEROL HFA 8 GM INHALER INH PRN (20:32)
[2023-02-03] MEDS ORDERED: VANCOMYCIN HCL 2,000 MG in SODIUM CHLORIDE 0.9% 500 ML IV STA (21:10)
[2023-02-03] MEDS: MoRPHine SULFATE 2 MG/ML CARP IV PRN (21:31)
[2023-02-03] MEDS: INSULIN ASPART PER UNIT CHARGE SC SCH (21:36)
[2023-02-03] MEDS: CEFEPIME 2,000 MG in SYRINGE 0 ML IV SCH (21:37)
[2023-02-03] MEDS: EUCERIN CR 120 GM JAR EXT PRN (21:44)
[2023-02-03] MEDS: APIXABAN 5 MG TABLET PO SCH (21:45)
[2023-02-03] MEDS: PANTOprazole 40 MG TAB PO SCH (21:45)
[2023-02-03] MEDS: FLUoxetine HCL 20 MG CAP PO SCH (21:45)
[2023-02-03] MEDS: busPIRone 15 MG TAB PO SCH (21:45)
[2023-02-03] MEDS: GABAPENTIN 600 MG TAB PO SCH (21:46)
[2023-02-03] MEDS: CIPROFLOXACIN HCL 0.3% OP SOLN 2.5 ML BTL OP SCH (21:46)
[2023-02-03] MEDS: MUPIROCIN 2% OINT 22 GM TUBE EXT SCH (21:47)
[2023-02-03] MEDS: ARTIFICIAL TEARS OP OINT 3.5 GM TUBE OP SCH (21:47)
[2023-02-03] MEDS: SPIRONOLACTONE 25 MG TAB PO SCH (21:48)
[2023-02-04] MEDS ORDERED: LEVALBUTEROL HCL 0.63 MG/3 ML NEB NEB PRN (01:00)
[2023-02-04] MEDS ORDERED: IPRATROPIUM BROMIDE NEB SOLN 0.02% 2.5 ML VIAL INH PRN (01:00)
--- NOTE | 2023-02-04 01:11 | Pharmacy Report ---
Pharmacy PK ABX Note - Date of Service February 04, 2023 - Assessment and Plan Assessment 47 year old M receiving Vancomycin and Cefepime for treatment of left lower extremity cellulitis. * Day #1 of antibiotics. * Past medical history significant for chronic venous stasis with lower e xtremity edema. Previous culture data shows Pseudomonas aeruginosa and MRSA. * Afebrile. No leukocytosis. Renal fxn at baseline. ESR/CRP elevated. Procalcitonin normal. * Blood and LLE cultures are pending. * LLE XR with "soft tissue ulceration similar to previous". Plan Vancomycin * Loading dose: 2000 mg IV x 1 * Maintenance dose: 1000 mg IV every 8 hours * Regimen is predicted to achieve target AUC/CONNIE of 400-600 mg/L.hr * Trough level ordered for: 02/05/23 Cefepime * 2000 mg IV every 8 hours Pharmacy will continue to follow and will adjust dose/frequency as necessary. Thank you. Pharmacy has transitioned to AUC monitoring for vancomycin. AUC/CONNIE is the preferred PK/PD target and is associated with decreased risk of nephrotoxicity compared to traditional trough targets.
[2023-02-04] MEDS: oxyCODONE/ACETAMINOPHEN 5mg/325mg TAB PO PRN ×3 (04:36→20:54)
[2023-02-04] MEDS: VANCOMYCIN HCL 1,000 MG in SODIUM CHLORIDE 0.9% 250 ML IV SCH ×3 (05:21→22:06)
[2023-02-04] MEDS: CEFEPIME 2,000 MG in SYRINGE 0 ML IV SCH ×3 (05:21→22:06)
[2023-02-04 06:44] LABS: Albumin Globulin Ratio 0.9 (0.9-2); Albumin Level 3.5 gm/dl (3.4-5.0); BUN Creatinine Ratio 14.3 (10-20); Bilirubin,Total 0.3 mg/dl (0.2-1.0); Calcium 9.1 mg/dl (8.6-10.3); Creatinine Clr Calc Pharmacy 168.1 ml/min; Est GFR (African American) 135.1 ml/min; Est GFR (Non-African American) 116.5 ml/min; Globulin 3.8 gm/dl (2.5-4.0); Potassium 3.9 mmol/L (3.5-5.1); Total Protein 7.3 gm/dl (6.0-8.3)
[2023-02-04 07:08] LABS: Basophils # (auto) 0.03 K/uL (0-0.2); Basophils % (auto) 0.5 %; Eosinophils # (auto) 0.02 K/uL (0-0.50); Eosinophils % (auto) 0.3 %; Hematocrit (blood only) 35.8 % (42.0-52.0); Hemoglobin 11.8 g/dl (14.0-18.0); Immature Granulocytes # (auto) 0.03 K/uL (0.01-0.20); Immature Granulocytes % (auto) 0.5 %; Lymphocytes # (auto) 0.72 K/uL (1.2-3.4); Lymphocytes % (auto) 10.8 %; Mean Corpuscular Hemoglobin 27.2 pg (25.0-34.0); Mean Corpuscular Volume 82.5 fL (80.0-100.0); Mean Platelet Volume 9.9 fL (9.4-12.4); Monocytes # (auto) 0.25 K/uL (0.11-0.59); Monocytes % (auto) 3.8 %; Neutrophils # (auto) 5.61 K/uL (1.40-6.50); Neutrophils % (auto) 84.1 %; Platelet Count 232 K/uL (130-400); RDW Coefficient of Variation 14.2 % (11.5-14.5); RDW Standard Deviation 42.5 fL (36.4-46.3); Red Blood Count 4.34 M/uL (4.70-6.10); White Blood Count 6.66 K/ul (4.8-10.8)
[2023-02-04] MEDS: SPIRONOLACTONE 25 MG TAB PO SCH ×2 (09:17→17:56)
[2023-02-04] MEDS: FOLIC ACID 1 MG TAB PO SCH (09:17)
[2023-02-04] MEDS: APIXABAN 5 MG TABLET PO SCH ×2 (09:18→20:55)
[2023-02-04] MEDS: busPIRone 15 MG TAB PO SCH ×2 (09:18→20:55)
[2023-02-04] MEDS: PANTOprazole 40 MG TAB PO SCH ×2 (09:18→20:54)
[2023-02-04] MEDS: ATORVASTATIN 10 MG TAB PO SCH (09:18)
[2023-02-04] MEDS: FUROSEMIDE 80 MG TAB PO SCH ×2 (09:18→17:56)
[2023-02-04] MEDS: GABAPENTIN 600 MG TAB PO SCH ×3 (09:18→20:53)
[2023-02-04] MEDS: MONTELUKAST SODIUM 10 MG TABLET PO SCH (09:19)
[2023-02-04] MEDS: MULTIVITAMIN TAB PO SCH (09:19)
[2023-02-04] MEDS: MUPIROCIN 2% OINT 22 GM TUBE EXT SCH ×2 (09:20→20:56)
[2023-02-04] MEDS: ARTIFICIAL TEARS OP OINT 3.5 GM TUBE OP SCH ×2 (09:20→20:57)
[2023-02-04] MEDS: CIPROFLOXACIN HCL 0.3% OP SOLN 2.5 ML BTL OP SCH ×4 (09:21→20:56)
[2023-02-04] MEDS: UMECLIDINIUM BROMIDE 62.5MCG/BLISTER 7 PUFFS/INHALER INH SCH (09:22)
[2023-02-04] MEDS: FLUTICASONE/VILANTEROL 200/25MCG 14 PUFFS/INHALER INH SCH (09:23)
[2023-02-04] MEDS: INSULIN ASPART PER UNIT CHARGE SC SCH ×5 (09:25→21:06)
[2023-02-04] MEDS ORDERED: MoRPHine SULFATE 2 MG/ML CARP IV PRN (10:28)
[2023-02-04] MEDS: NICOTINE 14 MG/24 HR PATCH TD SCH (12:59)
[2023-02-04] MEDS: diphenhydrAMINE Capsule 25 MG CAP PO PRN ×2 (13:00→20:54)
--- NOTE | 2023-02-04 15:03 | Hospitalist Progress Note ---
Date of Service February 04, 2023 Assessment & Plan (1) Cellulitis of left leg: Plan: Pt is a 47 yr male with a PMHx of DMII with neuropathy (controlled on last check), chronic venous stasis with lower extremity edema, Hx of DVT, Chronic pain, GERD, asthma/COPD, alcoholic cirrhosis, HLD, Mood disturbance who presents for evaluation of lower extremity wounds and bacterial conjunctivitis. Open lower extremity wounds in setting of Chronic Venous stasis changes and p eripheral neuropathy secondary to diabetes Peripheral arterial pulses are palpable Cellulitis of left lower extremity-chronic without any evidence of osteomyelitis --LE MRI done 01/12 No fractures or evidence for osteomyelitis within the left lower leg. Subcutaneous edema within the distal left lower leg. Diffuse fatty atrophy of the majority of the left lower leg muscles with minimal edema distally. This is nonspecific but could be due to a chronic denervation injury. This remains unchanged. A 3 cm skin ulceration along the medial aspect of the distal lower leg. No evidence for an underlying abscess. -- Tib/Fib XR today revealed soft tissue ulceration similar to previous -CRP 4.26 -Normal lactic acid Blood cultures: Pending Wound cultures: obtained, previous growth includes MRSA and pseudomonas Continue vancomycin, cefepime for now Continue wound care Needs follow-up with wound clinic upon discharge - has not yet established with [facility] Remains stable will continue vancomycin and cefepime for now until cultures are back Likely to need ID input (2) Wound infection: Plan: As above (3) Bacterial conjunctivitis: Plan: Bilateral eye conjunctivitis URI -sinus infection cipro gtts QID x 7 days warm compress/eyelid wash daily lacrilube bid antibiotics will also cover for sinusitis mupiriocin to b/l nares bid 2/2 crusting Plan Other significant medical conditions are as below: Neuropathy/chronic pain continue gabapentin Also on pain meds Alcoholic cirrhosis continue home lasix, spironolactone, folic acid No acute symptoms H/O DVT continue Eliquis GERD continue PPI Asthma/COPD pt with chronic wheezing no cough, feels breathing at baseline continue home inhalers, Singulair Mood disorder continue buspar, hydroxyzine, fluoxetine HLD On statin DM II HbA1c 6.5 01/13/23 Hold PO meds Continue insulin while hospitalized for protocol Monitor BGs DVT Px: Eliquis Code Status: Full code Disposition to med/surg Admission and Anticipated Discharge Date Admission Date: February 03, 2023 Subjective 02/04/2023 The patient was seen and examined in medical floor He was admitted with worsening lower extremity wounds and URI symptoms with red eyes for about 1 week He complains to have bilateral leg pain Denies any fever and or chills and remains weak and lethargic Review of Systems Review of Systems: All systems reviewed and are unremarkable except as noted below Physical Exam Physical Exam: Lying in bed comfortably Constitutional: well developed, well nourished, + ill appearing and + obese Eyes: PERRL, conjunctivae normal, anicteric sclerae ENMT: external ear and nose normal, oropharynx normal Neck: trachea midline, no thyromegaly Respiratory: no respiratory distress Auscultation: lungs clear to auscultation bilaterally Cardiovascular: Rate/Rhythm: regular rate and regular rhythm; not tachycardic Heart Sounds: normal S1 and normal S2; no murmur Extremities: + edema (Trace edema bilaterally) Chronic skin changes bilateral lower legs with ulceration and cellulitis Gastrointestinal (Abdomen): Inspection/Auscultation: normal bowel sounds; a bdomen not distended Percussion/Palpation: abdomen soft; abdomen nontender Musculoskeletal: Bilateral leg pain without any acute arthritis involving any of the joint Neurologic: normal touch/pain/proprioception and moves all extremities; no focal motor deficits Lymphatic: no cervical or axillary lymphadenopathy Results & Data Results & Data Vital Signs (Past 12 Hours) Vital Signs Temp Pulse Resp BP Pulse Ox O2 Del Method 02/04/23 08:22 36.7 C 56 L 16 123/73 96 Room Air Laboratory Results Short CBC 02/03/23 02/04/23 Range/Units 15:23 05:36 WBC 4.54 L 6.66 (4.8-10.8) K/ul Hgb 15.1 11.8 L D (14.0-18.0) g/dl Hct 45.2 35.8 L (42.0-52.0) % Plt Count 162 232 (130-400) K/uL BMP 02/03/23 02/04/23 15:23 05:36 Sodium 138 137 Potassium 3.6 3.9 Chloride 108 H 109 H Carbon Dioxide 24 23 BUN 7 9 Creatinine 0.62 0.63 Glucose 113 H 170 H Calcium 8.9 9.1 Liver Function 02/03/23 02/04/23 Range/Units 15:23 05:36 Total Bilirubin 0.4 0.3 (0.2-1.0) mg/dl AST 12 L 8 L (13-39) U/L ALT 12 10 (7-52) U/L Alkaline Phosphatase 70 63 (34-104) U/L Albumin 3.6 3.5 (3.4-5.0) gm/dl Urine 02/03/23 Range/Units 15:35 Urine Color Yellow Urine Appearance Clear (Clear) Urine pH 6.5 (4.5-7.5) Ur Specific [place] 1.016 (1.000-1.030) Urine Protein Negative (Negative) Urine Glucose (UA) Negative (Negative) Medications Administered Current Inpatient Medications Acetaminophen (Acetaminophen 325 Mg Tab) 650 mg PO Q4H PRN PRN Reason: pain/fever Stop: 03/05/23 20:31 Al Hydrox/Mg Hydrox/Simethicone (Aluminum/Magnesium Susp 30 Ml Udc) 30 ml PO Q6H PRN PRN Reason: Dyspepsia Stop: 03/05/23 20:31 Albuterol (Albuterol Hfa 8 Gm Inhaler) 1 puffs INH Q6R PRN PRN Reason: Shortness Of Breath Stop: 03/05/23 20:31 Apixaban (Apixaban 5 Mg Tablet) 5 mg PO BID [facility] Stop: 03/05/23 20:59 Last Admin: 02/04/23 09:18 Dose: 5 mg Atorvastatin Calcium (Atorvastatin 10 Mg Tab) 10 mg PO QAM [facility] Stop: 03/06/23 08:59 Last Admin: 02/04/23 09:18 Dose: 10 mg Buspirone HCl (Buspirone 15 Mg Tab) 15 mg PO BID [facility] Stop: 03/05/23 20:59 Last Admin: 02/04/23 09:18 Dose: 15 mg Ciprofloxacin (Ciprofloxacin Hcl 0.3% Op Soln 2.5 Ml Btl) 2 drops OP QID [facility] Stop: 02/10/23 20:59 Last Admin: 02/04/23 13:05 Dose: 2 drops Dextrose (Dextrose 50% 50 Ml Syringe) 25 - 50 ml IV UD PRN; Protocol PRN Reason: Hypoglycemia Protocol Stop: 03/05/23 20:31 Diphenhydramine HCl (Diphenhydramine Capsule 25 Mg Cap) 25 mg PO Q6H PRN PRN Reason: Itching Stop: 03/06/23 10:24 Last Admin: 02/04/23 13:00 Dose: 25 mg Fluoxetine HCl (Fluoxetine Hcl 20 Mg Cap) 20 mg PO HS [facility] Stop: 03/05/23 20:59 Last Admin: 02/03/23 21:45 Dose: 20 mg Fluticasone/Vilanterol (Fluticasone/Vilanterol 200/25mcg 14 Puffs/Inhaler) 1 puffs INH DAILY [facility]; Protocol Stop: 03/06/23 08:59 Last Admin: 02/04/23 09:23 Dose: 1 puffs Folic Acid (Folic Acid 1 Mg Tab) 1 mg PO QAM [facility] Stop: 03/06/23 08:59 Last Admin: 02/04/23 09:17 Dose: 1 mg Furosemide (Furosemide 80 Mg Tab) 80 mg PO BID17 [facility] Stop: 03/06/23 08:59 Last Admin: 02/04/23 09:18 Dose: 80 mg Gabapentin (Gabapentin 600 Mg Tab) 600 mg PO TID [facility] Stop: 03/05/23 20:59 Last Admin: 02/04/23 13:57 Dose: 600 mg Glucagon (Glucagon For Inj 1 Mg Vial) 1 mg SQ UD PRN; Protocol PRN Reason: Hypoglycemia Protocol Stop: 03/05/23 20:31 Glucose (Glucose 10 Tab/Tube) 4 - 8 tab PO UD PRN; Protocol PRN Reason: Hypoglycemia Treatment Stop: 03/05/23 20:31 Glucose (Glucose 40% Gel 15 Gm Tube) 15 - 30 gm PO UD PRN; Protocol PRN Reason: Hypoglycemia Protocol Stop: 03/05/23 20:31 Cefepime HCl 2,000 mg/ Syringe 20 mls @ 5 mls/min IV Q8H OTILIA; Protocol Stop: 02/10/23 21:59 Last Admin: 02/04/23 13:57 Dose: 5 mls/min Vancomycin HCl 1,000 mg/ (Sodium Chloride) 270 mls @ 200 mls/hr IV Q8H OT[facility]; Protocol Stop: 02/11/23 05:59 Last Admin: 02/04/23 13:57 Dose: 200 mls/hr Insulin Aspart (Insulin Aspart Per Unit Charge) 0 units SC ACHS [facility] Stop: 03/05/23 20:59 Last Admin: 02/04/23 13:00 Dose: 10 units Ipratropium [place] (Ipratropium [place] Neb Soln 0.02% 2.5 Ml Vial) 0.5 mg INH Q6R PRN PRN Reason: Wheezing Stop: 03/06/23 00:59 Levalbuterol HCl (Levalbuterol Hcl 0.63 Mg/3 Ml Neb) 0.63 mg NEB Q6R PRN PRN Reason: Wheezing Stop: 03/06/23 00:59 Magnesium Hydroxide (Magnesium Hydroxide Susp 30 Ml Udc) 30 ml PO Q6H PRN PRN Reason: Constipation Stop: 03/05/23 20:31 Miscellaneous (Carbohydrates For Hypoglycemia ) 15 - 30 gm PO UD PRN PRN Reason: Hypoglycemia Protocol Stop: 03/05/23 20:31 Miscellaneous (Remove Nicoderm Patch) 1 each N/A DAILY@0859 [facility] Stop: 03/07/23 08:58 Miscellaneous Information (Vancomycin Consult Active) 1 each N/A UD PRN PRN Reason: Consult Stop: 03/05/23 20:31 Montelukast Sodium (Montelukast Sodium 10 Mg Tablet) 10 mg PO DAILY [facility] Stop: 03/06/23 08:59 Last Admin: 02/04/23 09:19 Dose: 10 mg Morphine Sulfate (Morphine Sulfate 2 Mg/Ml Carp) 1 mg IV DAILY PRN PRN Reason: dressing changes Stop: 02/17/23 20:31 Last Admin: 02/03/23 21:31 Dose: 1 mg Morphine Sulfate (Morphine Sulfate 2 Mg/Ml Carp) 2 mg IV Q8H PRN PRN Reason: Oversedation/Resp Depression Stop: 02/18/23 10:27 Multi-Ingredient Cream (Eucerin Cr 120 Gm Jar) 1 appln EXT TID PRN PRN Reason: Skin Irritation Stop: 03/05/23 20:31 Last Admin: 02/03/23 21:44 Dose: 1 appln Multi-Ingredient Cream (Artificial Tears Op Oint 3.5 Gm Tube) 1 appln OP BID [facility] Stop: 02/06/23 20:59 Last Admin: 02/04/23 09:20 Dose: 1 appln Multivitamins (Multivitamin Tab) 1 tab PO QAM [facility] Stop: 03/06/23 08:59 Last Admin: 06/10/23 09:19 Dose: 1 tab Mupirocin (Mupirocin 2% Oint 22 Gm Tube) 1 appln EXT BID [facility] Stop: 02/10/23 20:59 Last Admin: 02/04/23 09:20 Dose: 1 appln Nicotine (Nicotine 14 Mg/24 Hr Patch) 14 mg TD QAM [facility] Stop: 03/06/23 10:29 Last Admin: 02/04/23 12:59 Dose: 14 mg Ondansetron HCl (Ondansetron Inj 2 Mg/Ml 2 Ml Vial) 4 mg IV Q6H PRN PRN Reason: Nausea Stop: 03/05/23 20:31 Oxycodone/Acetaminophen (Oxycodone/Acetaminophen 5mg/325mg Tab) 1 tab PO Q8H PRN PRN Reason: pain, severe Stop: 02/17/23 20:31 Last Admin: 02/04/23 12:27 Dose: 1 tab Pantoprazole Sodium (Pantoprazole 40 Mg Tab) 40 mg PO BID [facility]; Protocol Stop: 03/05/23 20:59 Last Admin: 02/04/23 09:18 Dose: 40 mg Polyethylene Glycol (Polyethylene (Miralax) 17 Gm Pack) 17 gm PO DAILY PRN PRN Reason: Constipation Stop: 03/05/23 20:31 Spironolactone (Spironolactone 25 Mg Tab) 50 mg PO BID@0900,1600 [facility] Stop: 03/05/23 20:59 Last Admin: 02/04/23 09:17 Dose: 50 mg Umeclidinium [place] (Umeclidinium [place] 62.5mcg/Blister 7 Puffs/Inhaler) 1 puffs INH DAILY [facility]; Protocol Stop: 03/06/23 08:59 Last Admin: 02/04/23 09:22 Dose: 1 puffs
[2023-02-04] MEDS: FLUoxetine HCL 20 MG CAP PO SCH (20:55)
[2023-02-04] MEDS ORDERED: Nursing to Pharmacy Communication SCH (23:45)
[2023-02-04] MEDS: HEPARIN 100 UNIT/ML 5ML FLUSH IV PRN (23:54)
[2023-02-05] MEDS ORDERED: VANCOMYCIN LEVEL ONE (05:30)
[2023-02-05] MEDS: oxyCODONE/ACETAMINOPHEN 5mg/325mg TAB PO PRN ×2 (05:47→16:18)
[2023-02-05 06:07] LABS: Basophils # (auto) 0.07 K/uL (0-0.2); Basophils % (auto) 1.1 %; Eosinophils # (auto) 0.12 K/uL (0-0.50); Hematocrit (blood only) 38.2 % (42.0-52.0); Hemoglobin 12.5 g/dl (14.0-18.0); Immature Granulocytes # (auto) 0.02 K/uL (0.01-0.20); Immature Granulocytes % (auto) 0.3 %; Lymphocytes # (auto) 1.25 K/uL (1.2-3.4); Lymphocytes % (auto) 20.5 %; Mean Corpuscular Hemoglobin 27.4 pg (25.0-34.0); Mean Corpuscular Hgb Conc 32.7 g/dL (32.0-36.0); Mean Corpuscular Volume 83.8 fL (80.0-100.0); Mean Platelet Volume 9.7 fL (9.4-12.4); Monocytes # (auto) 0.39 K/uL (0.11-0.59); Monocytes % (auto) 6.4 %; Neutrophils # (auto) 4.24 K/uL (1.40-6.50); Neutrophils % (auto) 69.7 %; Platelet Count 257 K/uL (130-400); RDW Coefficient of Variation 14.5 % (11.5-14.5); RDW Standard Deviation 44.3 fL (36.4-46.3); Red Blood Count 4.56 M/uL (4.70-6.10); White Blood Count 6.09 K/ul (4.8-10.8)
[2023-02-05 06:20] LABS: BUN Creatinine Ratio 28.6 (10-20); Calcium 9.1 mg/dl (8.6-10.3); Creatinine Clr Calc Pharmacy 126.1 ml/min; Est GFR (Non-African American) 103.5 ml/min; Potassium 3.5 mmol/L (3.5-5.1)
--- NOTE | 2023-02-05 06:30 | Electrocardiogram Report ---
Test Reason : Blood Pressure : / mmHG Vent. Rate : 072 BPM Atrial Rate : 072 BPM P-R Int : 166 ms QRS Dur : 092 ms QT Int : 398 ms P-R-T Axes : 061 018 032 degrees QTc Int : 435 ms Normal sinus rhythm Possible Anterior infarct (cited on or before 06-JUL-2018) Abnormal ECG When compared with ECG of 03-OCT-2022 15:21, No significant change was found Confirmed by Tu Domniguez ([id number]) on 02/05/2023 6:29:45 AM Referred By: REFERRED SELF Confirmed By:Tu Dominguez
[2023-02-05] MEDS: VANCOMYCIN HCL 1,000 MG in SODIUM CHLORIDE 0.9% 250 ML IV SCH ×3 (06:36→21:38)
[2023-02-05] MEDS: CEFEPIME 2,000 MG in SYRINGE 0 ML IV SCH ×3 (06:37→21:39)
[2023-02-05] MEDS: diphenhydrAMINE Capsule 25 MG CAP PO PRN ×3 (06:41→21:38)
[2023-02-05] MEDS: HEPARIN 100 UNIT/ML 5ML FLUSH IV PRN ×3 (08:19→21:46)
[2023-02-05] MEDS: PANTOprazole 40 MG TAB PO SCH ×2 (09:50→21:44)
[2023-02-05] MEDS: busPIRone 15 MG TAB PO SCH ×2 (09:50→21:40)
[2023-02-05] MEDS: APIXABAN 5 MG TABLET PO SCH ×2 (09:50→21:41)
[2023-02-05] MEDS: NICOTINE 14 MG/24 HR PATCH TD SCH (09:50)
[2023-02-05] MEDS: MONTELUKAST SODIUM 10 MG TABLET PO SCH (09:51)
[2023-02-05] MEDS: GABAPENTIN 600 MG TAB PO SCH ×3 (09:51→21:44)
[2023-02-05] MEDS: FOLIC ACID 1 MG TAB PO SCH (09:51)
[2023-02-05] MEDS: ATORVASTATIN 10 MG TAB PO SCH (09:51)
[2023-02-05] MEDS: FUROSEMIDE 80 MG TAB PO SCH ×2 (09:52→16:20)
[2023-02-05] MEDS: MULTIVITAMIN TAB PO SCH (09:53)
[2023-02-05] MEDS: UMECLIDINIUM BROMIDE 62.5MCG/BLISTER 7 PUFFS/INHALER INH SCH (09:53)
[2023-02-05] MEDS: SPIRONOLACTONE 25 MG TAB PO SCH ×2 (09:53→15:17)
[2023-02-05] MEDS: FLUTICASONE/VILANTEROL 200/25MCG 14 PUFFS/INHALER INH SCH (09:53)
[2023-02-05] MEDS: ARTIFICIAL TEARS OP OINT 3.5 GM TUBE OP SCH ×2 (09:54→21:43)
[2023-02-05] MEDS: CIPROFLOXACIN HCL 0.3% OP SOLN 2.5 ML BTL OP SCH ×4 (09:54→21:41)
[2023-02-05] MEDS: INSULIN ASPART PER UNIT CHARGE SC SCH ×4 (09:55→22:19)
[2023-02-05] MEDS: MUPIROCIN 2% OINT 22 GM TUBE EXT SCH ×2 (09:55→21:41)
--- NOTE | 2023-02-05 10:26 | Pharmacy Report ---
Pharmacy PK ABX Note - Date of Service February 05, 2023 - Assessment and Plan Assessment 02/04 * Day #3 of antibiotics * Blood cultures currently NGTD, left leg culture with gram negative bacilli and gram negative bacilli #2 * Continuing on vancomycin/cefepime while awaiting culture results * Trough level obtained this morning 19.3 mcg/ml indicates therapeutic dosing and achievement of AUC/CONNIE target 02/03 47 year old M receiving Vancomycin and Cefepime for treatment of left lower extremity cellulitis. * Day #1 of antibiotics. * Past medical history significant for chronic venous stasis with lower extremity edema. Previous culture data shows Pseudomonas aeruginosa and MRSA. * Afebrile. No leukocytosis. Renal fxn at baseline. ESR/CRP elevated. Procalcitonin normal. * Blood and LLE cultures are pending. * LLE XR with "soft tissue ulceration similar to previous". Plan Vancomycin * Loading dose: 2000 mg IV x 1 * Continue Maintenance dose: 1000 mg IV every 8 hours * Regimen is predicted to achieve target AUC/CONNIE of 400-600 mg/L.hr * Trough level to be ordered in 2-3 days or as needed with renal function changes. Cefepime * 2000 mg IV every 8 hours Pharmacy will continue to follow and will adjust dose/frequency as necessary. Thank you. Pharmacy has transitioned to AUC monitoring for vancomycin. AUC/CONNIE is the preferred PK/PD target and is associated with decreased risk of nephrotoxicity compared to traditional trough targets.
[2023-02-05] MEDS: MoRPHine SULFATE 2 MG/ML CARP IV PRN (10:52)
[2023-02-05] MEDS: FLUTICASONE PROPIONATE NA SPR 16 GM BTL SCH (13:20)
[2023-02-05] MEDS: PSEUDOEPHEDRINE HCL 30 MG TAB PO PRN ×2 (15:17→22:20)
--- NOTE | 2023-02-05 17:23 | Hospitalist Progress Note ---
Date of Service February 05, 2023 Assessment & Plan (1) Cellulitis of left leg: Plan: Pt is a 47 yr male with a PMHx of DMII with neuropathy (controlled on last check), chronic venous stasis with lower extremity edema, Hx of DVT, Chronic pain, GERD, asthma/COPD, alcoholic cirrhosis, HLD, Mood disturbance who presents for evaluation of lower extremity wounds and bacterial conjunctivitis. Open lower extremity wounds in setting of Chronic Venous stasis changes and p eripheral neuropathy secondary to diabetes Peripheral arterial pulses are palpable Cellulitis of left lower extremity-chronic without any evidence of osteomyelitis --LE MRI done 01/12 No fractures or evidence for osteomyelitis within the left lower leg. Subcutaneous edema within the distal left lower leg. Diffuse fatty atrophy of the majority of the left lower leg muscles with minimal edema distally. This is nonspecific but could be due to a chronic denervation injury. This remains unchanged. A 3 cm skin ulceration along the medial aspect of the distal lower leg. No evidence for an underlying abscess. -- Tib/Fib XR today revealed soft tissue ulceration similar to previous -CRP 4.26 -Normal lactic acid Blood cultures: Negative to date Wound cultures: H/O MRSA and pseudomonas Growing gram-negative bacilli Continue vancomycin, cefepime for now Continue wound care Needs follow-up with wound clinic upon discharge - has not yet established with [facility] Consulted ID due to recurrent infection (2) Wound infection: Plan: As above (3) Bacterial conjunctivitis: Plan: Bilateral eye conjunctivitis URI -sinus infection cipro gtts QID x 7 days warm compress/eyelid wash daily lacrilube bid Also on antibiotics as above Plan Other significant medical conditions are as below: Neuropathy/chronic pain continue gabapentin Also on pain meds Alcoholic cirrhosis continue home lasix, spironolactone, folic acid No acute symptoms H/O DVT continue Eliquis GERD continue PPI Asthma/COPD pt with chronic wheezing no cough, feels breathing at baseline continue home inhalers, Singulair Mood disorder continue buspar, hydroxyzine, fluoxetine HLD On statin DM II HbA1c 6.5 01/13/23 Hold PO meds Continue insulin while hospitalized for protocol Monitor BGs DVT Px: Eliquis Code Status: Full code Disposition Home when stable Admission and Anticipated Discharge Date Admission Date: February 03, 2023 Subjective Patient is seen and examined at bedside States having nasal congestion and sinusitis like symptoms Also reports some discomfort off leg wounds Denies any chest pain, dyspnea, dizziness No other complaints Review of Systems Review of Systems: All systems reviewed & are unremarkable except as noted in Subjective Physical Exam Physical Exam: Physical Exam: Vitals signs as noted above General Appearance:Moderately built and nourished, no apparent distress Head: normocephalic, Atraumatic Eyes: normal inspection, EOMI, +Conjunctivitis Neck: supple, Trachea midline Respiratory/Chest: Normal breath sounds, CTA, No accessory muscle use Cardiovascular: S1, S2, No murmur Abdomen/GI:Soft, Non tender, Bowel sounds present Extremities/Musculoskeletal:normal inspection, B/L LE leg wounds in dressing, 1+ pedal edema Neurologic/Psych:AAOX3, grossly no focal neurological deficits Skin: normal color, warm Results & Data Results & Data Vital Signs (Past 12 Hours) Vital Signs Temp Pulse Resp BP Pulse Ox O2 Del Method 02/05/23 11:02 Room Air 02/05/23 15:19 36.8 C 88 16 118/75 96 Room Air 02/05/23 08:19 36.6 C 67 16 124/76 96 Room Air Laboratory Results Short CBC 02/05/23 Range/Units 05:16 WBC 6.09 (4.8-10.8) K/ul Hgb 12.5 L (14.0-18.0) g/dl Hct 38.2 L (42.0-52.0) % Plt Count 257 (130-400) K/uL BMP 02/05/23 05:16 Sodium 138 Potassium 3.5 Chloride 105 Carbon Dioxide 26 BUN 24 H Creatinine 0.84 Glucose 145 H Calcium 9.1
[2023-02-05] MEDS: FLUoxetine HCL 20 MG CAP PO SCH (21:43)
[2023-02-06] MEDS: oxyCODONE/ACETAMINOPHEN 5mg/325mg TAB PO PRN ×3 (04:36→21:42)
[2023-02-06] MEDS: CEFEPIME 2,000 MG in SYRINGE 0 ML IV SCH ×3 (06:11→21:44)
[2023-02-06] MEDS: VANCOMYCIN HCL 1,000 MG in SODIUM CHLORIDE 0.9% 250 ML IV SCH ×3 (06:11→21:43)
[2023-02-06] MEDS: diphenhydrAMINE Capsule 25 MG CAP PO PRN ×3 (06:16→21:42)
[2023-02-06] MEDS: PSEUDOEPHEDRINE HCL 30 MG TAB PO PRN ×3 (06:16→21:42)
[2023-02-06 07:34] LABS: BUN Creatinine Ratio 32.1 (10-20); Calcium 9.3 mg/dl (8.6-10.3); Creatinine Clr Calc Pharmacy 130.8 ml/min; Est GFR (African American) 121.8 ml/min; Est GFR (Non-African American) 105.1 ml/min; Potassium 3.7 mmol/L (3.5-5.1)
[2023-02-06] MEDS: HEPARIN 100 UNIT/ML 5ML FLUSH IV PRN ×3 (07:42→22:26)
[2023-02-06] MEDS: NICOTINE 14 MG/24 HR PATCH TD SCH (07:45)
[2023-02-06] MEDS: CIPROFLOXACIN HCL 0.3% OP SOLN 2.5 ML BTL OP SCH ×4 (07:46→21:43)
[2023-02-06] MEDS: MUPIROCIN 2% OINT 22 GM TUBE EXT SCH ×2 (07:48→21:44)
[2023-02-06] MEDS: FLUTICASONE PROPIONATE NA SPR 16 GM BTL SCH (07:48)
[2023-02-06] MEDS: FLUTICASONE/VILANTEROL 200/25MCG 14 PUFFS/INHALER INH SCH (07:49)
[2023-02-06] MEDS: UMECLIDINIUM BROMIDE 62.5MCG/BLISTER 7 PUFFS/INHALER INH SCH (07:49)
[2023-02-06] MEDS: SPIRONOLACTONE 25 MG TAB PO SCH ×2 (08:56→15:36)
[2023-02-06] MEDS: MULTIVITAMIN TAB PO SCH (08:56)
[2023-02-06] MEDS: ATORVASTATIN 10 MG TAB PO SCH (08:56)
[2023-02-06] MEDS: GABAPENTIN 600 MG TAB PO SCH ×3 (08:56→22:26)
[2023-02-06] MEDS: FOLIC ACID 1 MG TAB PO SCH (08:56)
[2023-02-06] MEDS: ARTIFICIAL TEARS OP OINT 3.5 GM TUBE OP SCH (08:56)
[2023-02-06] MEDS: busPIRone 15 MG TAB PO SCH ×2 (08:56→22:27)
[2023-02-06] MEDS: APIXABAN 5 MG TABLET PO SCH ×2 (08:56→22:27)
[2023-02-06] MEDS: FUROSEMIDE 80 MG TAB PO SCH ×2 (08:56→15:36)
[2023-02-06] MEDS: PANTOprazole 40 MG TAB PO SCH ×2 (08:56→22:26)
[2023-02-06] MEDS: MONTELUKAST SODIUM 10 MG TABLET PO SCH (08:57)
[2023-02-06] MEDS: INSULIN ASPART PER UNIT CHARGE SC SCH ×4 (08:58→22:28)
[2023-02-06] MEDS: MoRPHine SULFATE 2 MG/ML CARP IV PRN (11:09)
[2023-02-06] MEDS ORDERED: MoRPHine SULFATE 2 MG/ML CARP IV ONE (13:40)
[2023-02-06] MEDS: COLLAGENASE OINT 30 GM TUBE EXT SCH (16:10)
[2023-02-06] MEDS: EUCERIN CR 120 GM JAR EXT PRN (16:10)
--- NOTE | 2023-02-06 17:05 | Hospitalist Progress Note ---
Date of Service February 06, 2023 Assessment & Plan (1) Cellulitis of left leg: Plan: Pt is a 47 yr male with a PMHx of DMII with neuropathy (controlled on last check), chronic venous stasis with lower extremity edema, Hx of DVT, Chronic pain, GERD, asthma/COPD, alcoholic cirrhosis, HLD, Mood disturbance who presents for evaluation of lower extremity wounds and bacterial conjunctivitis. Open lower extremity wounds in setting of Chronic Venous stasis changes and p eripheral neuropathy secondary to diabetes Peripheral arterial pulses are palpable Cellulitis of left lower extremity-chronic without any evidence of osteomyelitis --LE MRI done 01/12 No fractures or evidence for osteomyelitis within the left lower leg. Subcutaneous edema within the distal left lower leg. Diffuse fatty atrophy of the majority of the left lower leg muscles with minimal edema distally. This is nonspecific but could be due to a chronic denervation injury. This remains unchanged. A 3 cm skin ulceration along the medial aspect of the distal lower leg. No evidence for an underlying abscess. -- Tib/Fib XR today revealed soft tissue ulceration similar to previous -CRP 4.26 -Normal lactic acid Blood cultures: Negative to date Wound cultures: H/O MRSA and pseudomonas Wound culture grew Pseudomonas, Acinetobacter Continue vancomycin, cefepime for now Consulted ID--pending Input Continue Wound Care Advised to follow-up with wound clinic upon discharge (2) Wound infection: Plan: As above (3) Bacterial conjunctivitis: Plan: Bilateral eye conjunctivitis URI -sinus infection cipro gtts QID x 7 days warm compress/eyelid wash daily lacrilube bid Plan Other significant medical conditions are as below: Neuropathy/chronic pain continue gabapentin Also on pain meds Alcoholic cirrhosis continue home lasix, spironolactone, folic acid No acute symptoms H/O DVT continue Eliquis GERD continue PPI Asthma/COPD pt with chronic wheezing no cough, feels breathing at baseline continue home inhalers, Singulair Mood disorder continue buspar, hydroxyzine, fluoxetine HLD On statin DM II HbA1c 6.5 01/13/23 Hold PO meds Continue insulin while hospitalized for protocol Monitor BGs DVT Px: Eliquis Code Status: Full code Disposition Home when stable Admission and Anticipated Discharge Date Admission Date: February 03, 2023 Subjective Patient is seen and examined at bedside Sinus congestion better Leg wound pain is controlled Denies any chest pain, dyspnea, dizziness Conjunctivitis slowly improving Review of Systems Review of Systems: All systems reviewed & are unremarkable except as noted in Subjective Physical Exam Physical Exam: Physical Exam: Vitals signs as noted above General Appearance:Moderately built and nourished, no apparent distress Head: normocephalic, Atraumatic Eyes: normal inspection, EOMI, +Conjunctivitis Neck: supple, Trachea midline Respiratory/Chest: Normal breath sounds, CTA, No accessory muscle use Cardiovascular: S1, S2, No murmur Abdomen/GI:Soft, Non tender, Bowel sounds present Extremities/Musculoskeletal:normal inspection, B/L LE leg wounds in dressing, 1+ pedal edema Neurologic/Psych:AAOX3, grossly no focal neurological deficits Skin: normal color, warm Results & Data Results & Data Vital Signs (Past 12 Hours) Vital Signs Temp Pulse Pulse Resp BP Pulse Ox O2 Del Method 02/06/23 15:35 36.5 C 87 18 107/77 96 Room Air 02/06/23 07:37 36.6 C 74 16 112/78 95 Room Air Laboratory Results [facility] 02/06/23 06:50 Sodium 135 L Potassium 3.7 Chloride 103 Carbon Dioxide 26 BUN 26 H Creatinine 0.81 Glucose 131 H Calcium 9.3
[2023-02-06] MEDS: FLUoxetine HCL 20 MG CAP PO SCH (22:27)
[2023-02-07] MEDS: CEFEPIME 2,000 MG in SYRINGE 0 ML IV SCH ×3 (06:10→21:12)
[2023-02-07] MEDS: VANCOMYCIN HCL 1,000 MG in SODIUM CHLORIDE 0.9% 250 ML IV SCH (06:10)
[2023-02-07] MEDS: oxyCODONE/ACETAMINOPHEN 5mg/325mg TAB PO PRN ×3 (06:15→23:48)
[2023-02-07] MEDS: diphenhydrAMINE Capsule 25 MG CAP PO PRN ×2 (06:15→21:03)
[2023-02-07] MEDS: GABAPENTIN 600 MG TAB PO SCH ×3 (07:53→21:03)
[2023-02-07] MEDS: ATORVASTATIN 10 MG TAB PO SCH (07:53)
[2023-02-07] MEDS: FOLIC ACID 1 MG TAB PO SCH (07:53)
[2023-02-07] MEDS: APIXABAN 5 MG TABLET PO SCH ×2 (07:53→21:03)
[2023-02-07] MEDS: busPIRone 15 MG TAB PO SCH ×2 (07:53→21:03)
[2023-02-07] MEDS: MUPIROCIN 2% OINT 22 GM TUBE EXT SCH ×2 (07:54→21:04)
[2023-02-07] MEDS: MONTELUKAST SODIUM 10 MG TABLET PO SCH (07:54)
[2023-02-07] MEDS: PANTOprazole 40 MG TAB PO SCH ×2 (07:54→21:03)
[2023-02-07] MEDS: MULTIVITAMIN TAB PO SCH (07:54)
[2023-02-07] MEDS: CIPROFLOXACIN HCL 0.3% OP SOLN 2.5 ML BTL OP SCH (07:55)
[2023-02-07] MEDS: FLUTICASONE PROPIONATE NA SPR 16 GM BTL SCH (07:55)
[2023-02-07] MEDS: UMECLIDINIUM BROMIDE 62.5MCG/BLISTER 7 PUFFS/INHALER INH SCH (07:56)
[2023-02-07] MEDS: COLLAGENASE OINT 30 GM TUBE EXT SCH (07:56)
[2023-02-07] MEDS: FLUTICASONE/VILANTEROL 200/25MCG 14 PUFFS/INHALER INH SCH (07:56)
[2023-02-07] MEDS: INSULIN ASPART PER UNIT CHARGE SC SCH ×4 (08:11→21:12)
[2023-02-07] MEDS: NICOTINE 14 MG/24 HR PATCH TD SCH (08:44)
[2023-02-07] MEDS: SPIRONOLACTONE 25 MG TAB PO SCH ×2 (08:44→16:37)
[2023-02-07] MEDS: FUROSEMIDE 80 MG TAB PO SCH ×2 (08:44→16:37)
[2023-02-07] MEDS: LANTUS PER UNIT CHARGE SQ SCH ×2 (08:49→21:12)
[2023-02-07] MEDS: MoRPHine SULFATE 2 MG/ML CARP IV PRN (10:53)
--- NOTE | 2023-02-07 12:11 | Hospitalist Progress Note ---
Date of Service February 07, 2023 Assessment & Plan (1) Cellulitis of left leg: Plan: Pt is a 47 yr male with a PMHx of DMII with neuropathy (controlled on last check), chronic venous stasis with lower extremity edema, Hx of DVT, Chronic pain, GERD, asthma/COPD, alcoholic cirrhosis, HLD, Mood disturbance who presents for evaluation of lower extremity wounds and bacterial conjunctivitis. Open lower extremity wounds in setting of Chronic Venous stasis changes and p eripheral neuropathy secondary to diabetes Peripheral arterial pulses are palpable Cellulitis of left lower extremity-chronic without any evidence of osteomyelitis --LE MRI done 01/12 No fractures or evidence for osteomyelitis within the left lower leg. Subcutaneous edema within the distal left lower leg. Diffuse fatty atrophy of the majority of the left lower leg muscles with minimal edema distally. This is nonspecific but could be due to a chronic denervation injury. This remains unchanged. A 3 cm skin ulceration along the medial aspect of the distal lower leg. No evidence for an underlying abscess. -- Tib/Fib XR today revealed soft tissue ulceration similar to previous -CRP 4.26 -Normal lactic acid Blood cultures: Negative to date Wound cultures: H/O MRSA and pseudomonas Wound culture grew Pseudomonas, Acinetobacter Continue cefepime, d/c vanco per ID Consulted ID--recommend updated imaging, will order MRI, recommending d/c on cipro for total of 14 days at discharge, although pt previously on this Continue Wound Care Advised to follow-up with wound clinic upon discharge (2) Wound infection: Plan: As above (3) Bacterial conjunctivitis: Plan: Bilateral eye conjunctivitis URI -sinus infection d/c cipro gtt switch to erythromycin oint warm compress/eyelid wash daily naph con gtt Plan Other significant medical conditions are as below: Neuropathy/chronic pain continue gabapentin Also on pain meds Alcoholic cirrhosis continue home lasix, spironolactone, folic acid No acute symptoms H/O DVT continue Eliquis GERD continue PPI Asthma/COPD pt with chronic wheezing no cough, feels breathing at baseline continue home inhalers, Singulair Mood disorder continue buspar, hydroxyzine, fluoxetine HLD On statin DM II HbA1c 6.5 01/13/23 Hold PO meds Continue insulin while hospitalized for protocol Monitor BGs DVT Px: Eliquis Code Status: Full code Disposition Home when stable Admission and Anticipated Discharge Date Admission Date: February 03, 2023 Supervising Physician Co-Signing Physician Notes Patient is seen and examined at bedside. Sinus congestion slightly better. Chronic leg wound pain. Still has itching and tearing of eyes. Denies any chest pain, dyspnea. Physical exam unchanged from yesterday. MRI negative for osteomyelitis. Continue IV cefepime. Appreciate ID input. Vancomycin discontinued. Conjunctivitis likely viral. I personally reviewed the record. Patient is interviewed and examined at bedside. Patient's care is coordinated with Yanira Sims PA-C. Please refer to the documentation above for details of patient's presentation and for discussion of other issues. Subjective Patient was seen in room 306. Follow-up left lower extremity cellulitis and wound care as well as bilateral c onjunctivitis. He continues to have gritty feeling in b/l eye along with purulent discharge/crusted eye lids in a.m. He feels sinus congestion is finally breaking. He feels cipro gtt not helping. They are now using santyl on his legs and its getting more painful. He denies cp,sob, n/v/d, abd pain. Review of Systems Review of Systems: All systems reviewed & are unremarkable except as noted in HPI & below Physical Exam Physical Exam: Gen: WD/WN, M, sitting up in bed, NAD, A&O x3 HEENT: Normocephalic, atraumatic, conjunctivae moist, sclerae anicteric, b/l conjunctival inj sparing limbus, crusts noted in eye lashes bl, mucous membranes moist. Lung: Clear to Auscultation bilaterally, b/l exp wheezing chronic for pt, no rales/rhonchi Heart: Regular rate, regular rhythm, no murmurs, rubs, or gallops Abdomen: Soft, NT, ND +BS x 4 Extremities: chronic venous stasis change with LLE dressing cdi Skin: Warm, no rash, negative turgor. Results & Data Results & Data Vital Signs (Past 12 Hours) Vital Signs Temp Pulse Resp BP Pulse Ox O2 Del Method 02/07/23 08:00 Room Air 02/07/23 07:16 36.5 C 73 18 126/82 97 Room Air Medications Administered Current Inpatient Medications Acetaminophen (Acetaminophen 325 Mg Tab) 650 mg PO Q4H PRN PRN Reason: pain/fever Stop: 03/05/23 20:31 Al Hydrox/Mg Hydrox/Simethicone (Aluminum/Magnesium Susp 30 Ml Udc) 30 ml PO Q6H PRN PRN Reason: Dyspepsia Stop: 03/05/23 20:31 Albuterol (Albuterol Hfa 8 Gm Inhaler) 1 puffs INH Q6R PRN PRN Reason: Shortness Of Breath Stop: 03/05/23 20:31 Apixaban (Apixaban 5 Mg Tablet) 5 mg PO BID [facility] Stop: 03/05/23 20:59 Last Admin: 02/07/23 07:53 Dose: 5 mg Atorvastatin Calcium (Atorvastatin 10 Mg Tab) 10 mg PO QAM [facility] Stop: 03/06/23 08:59 Last Admin: 02/07/23 07:53 Dose: 10 mg Buspirone HCl (Buspirone 15 Mg Tab) 15 mg PO BID [facility] Stop: 03/05/23 20:59 Last Admin: 02/07/23 07:53 Dose: 15 mg Collagenase (Collagenase Oint 30 Gm Tube) 1 appln EXT DAILY [facility] Stop: 03/08/23 13:14 Last Admin: 02/07/23 07:56 Dose: 1 appln Dextrose (Dextrose 50% 50 Ml Syringe) 25 - 50 ml IV UD PRN; Protocol PRN Reason: Hypoglycemia Protocol Stop: 03/05/23 20:31 Diphenhydramine HCl (Diphenhydramine Capsule 25 Mg Cap) 25 mg PO Q6H PRN PRN Reason: Itching Stop: 03/06/23 10:24 Last Admin: 02/07/23 06:15 Dose: 25 mg Erythromycin (Erythromycin Op Oint 5 Mg/Gm 3.5 Gm Tube) 1 appln OP QID [facility] Stop: 02/17/23 12:59 Fluoxetine HCl (Fluoxetine Hcl 20 Mg Cap) 20 mg PO HS [facility] Stop: 03/05/23 20:59 Last Admin: 02/06/23 22:27 Dose: 20 mg Fluticasone Propionate (Fluticasone Propionate Na Spr 16 Gm Btl) 2 sprays NA DAILY [facility] Stop: 03/07/23 11:44 Last Admin: 02/07/23 07:55 Dose: 2 sprays Fluticasone/Vilanterol (Fluticasone/Vilanterol 200/25mcg 14 Puffs/Inhaler) 1 puffs INH DAILY [facility]; Protocol Stop: 03/06/23 08:59 Last Admin: 02/07/23 07:56 Dose: 1 puffs Folic Acid (Folic Acid 1 Mg Tab) 1 mg PO QAM [facility] Stop: 03/06/23 08:59 Last Admin: 02/07/23 07:53 Dose: 1 mg Furosemide (Furosemide 80 Mg Tab) 80 mg PO BID17 [facility] Stop: 03/06/23 08:59 Last Admin: 02/07/23 08:44 Dose: 80 mg Gabapentin (Gabapentin 600 Mg Tab) 600 mg PO TID [facility] Stop: 03/05/23 20:59 Last Admin: 02/07/23 07:53 Dose: 600 mg Glucagon (Glucagon For Inj 1 Mg Vial) 1 mg SQ UD PRN; Protocol PRN Reason: Hypoglycemia Protocol Stop: 03/05/23 20:31 Glucose (Glucose 10 Tab/Tube) 4 - 8 tab PO UD PRN; Protocol PRN Reason: Hypoglycemia Treatment Stop: 03/05/23 20:31 Glucose (Glucose 40% Gel 15 Gm Tube) 15 - 30 gm PO UD PRN; Protocol PRN Reason: Hypoglycemia Protocol Stop: 03/05/23 20:31 Heparin Sodium (Porcine) (Heparin 100 Unit/Ml 5ml Flush) 5 ml IV PRN PRN PRN Reason: Flush Stop: 03/06/23 23:51 Last Admin: 02/06/23 22:26 Dose: 5 ml Cefepime HCl 2,000 mg/ Syringe 20 mls @ 5 mls/min IV Q8H [facility]; Protocol Stop: 02/10/23 21:59 Last Admin: 02/07/23 06:10 Dose: 5 mls/min Insulin Aspart (Insulin Aspart Per Unit Charge) 0 units SC ACHS [facility] Stop: 03/05/23 20:59 Last Admin: 02/07/23 08:11 Dose: 16 units Insulin Glargine (Lantus Per Unit Charge) 5 units SQ BID [facility] Stop: 03/09/23 08:59 Last Admin: 02/07/23 08:49 Dose: 5 units Ipratropium [place] (Ipratropium [place] Neb Soln 0.02% 2.5 Ml Vial) 0.5 mg INH Q6R PRN PRN Reason: Wheezing Stop: 03/06/23 00:59 Levalbuterol HCl (Levalbuterol Hcl 0.63 Mg/3 Ml Neb) 0.63 mg NEB Q6R PRN PRN Reason: Wheezing Stop: 03/06/23 00:59 Magnesium Hydroxide (Magnesium Hydroxide Susp 30 Ml Udc) 30 ml PO Q6H PRN PRN Reason: Constipation Stop: 03/05/23 20:31 Miscellaneous (Carbohydrates For Hypoglycemia ) 15 - 30 gm PO UD PRN PRN Reason: Hypoglycemia Protocol Stop: 03/05/23 20:31 Miscellaneous (Remove Nicoderm Patch) 1 each N/A DAILY@0859 [facility] Stop: 03/07/23 08:58 Last Admin: 02/07/23 07:55 Dose: 1 each Montelukast Sodium (Montelukast Sodium 10 Mg Tablet) 10 mg PO DAILY [facility] Stop: 03/06/23 08:59 Last Admin: 02/07/23 07:54 Dose: 10 mg Morphine Sulfate (Morphine Sulfate 2 Mg/Ml Carp) 2 mg IV Q8H PRN PRN Reason: dressing changes Stop: 02/18/23 10:27 Last Admin: 02/07/23 10:53 Dose: 2 mg Multi-Ingredient Cream (Eucerin Cr 120 Gm Jar) 1 appln EXT TID PRN PRN Reason: Skin Irritation Stop: 03/05/23 20:31 Last Admin: 02/06/23 16:10 Dose: 1 appln Multivitamins (Multivitamin Tab) 1 tab PO QAM [facility] Stop: 03/06/23 08:59 Last Admin: 02/07/23 07:54 Dose: 1 tab Mupirocin (Mupirocin 2% Oint 22 Gm Tube) 1 appln EXT BID [facility] Stop: 02/10/23 20:59 Last Admin: 02/07/23 07:54 Dose: 1 appln Naphazoline HCl/Pheniramine Maleate (Naphazolin/Pheniramin Oph Soln 75 Drops/5 Ml Btl) 2 drops OP BID [facility] Stop: 03/09/23 11:59 Nicotine (Nicotine 14 Mg/24 Hr Patch) 14 mg TD QAM [facility] Stop: 03/06/23 10:29 Last Admin: 02/07/23 08:44 Dose: 14 mg Ondansetron HCl (Ondansetron Inj 2 Mg/Ml 2 Ml Vial) 4 mg IV Q6H PRN PRN Reason: Nausea Stop: 03/05/23 20:31 Oxycodone/Acetaminophen (Oxycodone/Acetaminophen 5mg/325mg Tab) 1 tab PO Q8H PRN PRN Reason: pain, severe Stop: 02/17/23 20:31 Last Admin: 02/07/23 06:15 Dose: 1 tab Pantoprazole Sodium (Pantoprazole 40 Mg Tab) 40 mg PO BID [facility]; Protocol Stop: 03/05/23 20:59 Last Admin: 02/07/23 07:54 Dose: 40 mg Polyethylene Glycol (Polyethylene (Miralax) 17 Gm Pack) 17 gm PO DAILY PRN PRN Reason: Constipation Stop: 03/05/23 20:31 Pseudoephedrine HCl (Pseudoephedrine Hcl 30 Mg Tab) 30 mg PO Q6H PRN PRN Reason: Nasal Congestion Stop: 03/07/23 11:34 Last Admin: 02/06/23 21:42 Dose: 30 mg Spironolactone (Spironolactone 25 Mg Tab) 50 mg PO BID@0900,1600 [facility] Stop: 03/05/23 20:59 Last Admin: 02/07/23 08:44 Dose: 50 mg Umeclidinium [place] (Umeclidinium [place] 62.5mcg/Blister 7 Puffs/Inhaler) 1 puffs INH DAILY [facility]; Protocol Stop: 03/06/23 08:59 Last Admin: 02/07/23 07:56 Dose: 1 puffs
[2023-02-07] MEDS: ERYTHROMYCIN OP OINT 5 MG/GM 3.5 GM TUBE OP SCH ×3 (12:27→21:04)
[2023-02-07] MEDS: NAPHAZOLIN/PHENIRAMIN OPH SOLN 75 DROPS/5 ML BTL OP SCH ×2 (12:27→21:05)
[2023-02-07] MEDS ORDERED: GADOBUTROL 65ML VIAL IV ONE (14:08)
--- NOTE | 2023-02-07 14:19 | Magnetic Resonance Report ---
MR ankle LT wo/w con CLINICAL HISTORY: r/o osteomyelitis TECHNIQUE: Multisequence, multiplanar MR images of the left ankle were obtained prior to and follow ing administration of gadolinium contrast. COMPARISON: Comparison is made to tibia and fibular radiograph 02/03/2023 FINDINGS: There is an ulcer at the level of the lateral malleolus. No significant soft tissue edema is seen and there is no underlying bony edema. IMPRESSION: No evidence of osteomyelitis or drainable fluid collection. An ulcer is noted at the level of the lat eral malleolus without evidence of significant cellulitis.. ACT 112: Negative or not required by law. Electronically signed by: Tino Zaidi M.D. 02/07/2023 2:17 PM
[2023-02-07] MEDS: HEPARIN 100 UNIT/ML 5ML FLUSH IV PRN ×2 (14:22→21:16)
[2023-02-07] MEDS: PSEUDOEPHEDRINE HCL 30 MG TAB PO PRN (17:25)
[2023-02-07] MEDS: FLUoxetine HCL 20 MG CAP PO SCH (21:03)
[2023-02-08] MEDS: HEPARIN 100 UNIT/ML 5ML FLUSH IV PRN ×3 (05:25→23:11)
[2023-02-08] MEDS: CEFEPIME 2,000 MG in SYRINGE 0 ML IV SCH ×3 (05:25→21:16)
[2023-02-08] MEDS: PSEUDOEPHEDRINE HCL 30 MG TAB PO PRN (05:30)
[2023-02-08] MEDS ORDERED: SODIUM CHLORIDE 0.65% NA SOLN 45 ML (OCEAN) PRN (06:02)
[2023-02-08 06:05] LABS: BUN Creatinine Ratio 30.5 (10-20); Calcium 9.4 mg/dl (8.6-10.3); Creatinine Clr Calc Pharmacy 129.2 ml/min; Est GFR (African American) 121.2 ml/min; Est GFR (Non-African American) 104.6 ml/min; Potassium 3.4 mmol/L (3.5-5.1)
[2023-02-08] MEDS ORDERED: POTASSIUM CHLORIDE CRTAB 20 MEQ TABCR PO STA (07:26)
[2023-02-08] MEDS: oxyCODONE/ACETAMINOPHEN 5mg/325mg TAB PO PRN ×2 (07:33→17:57)
[2023-02-08] MEDS: NICOTINE 14 MG/24 HR PATCH TD SCH (08:58)
[2023-02-08] MEDS: ATORVASTATIN 10 MG TAB PO SCH (08:59)
[2023-02-08] MEDS: MULTIVITAMIN TAB PO SCH (08:59)
[2023-02-08] MEDS: FUROSEMIDE 80 MG TAB PO SCH ×2 (08:59→16:41)
[2023-02-08] MEDS: SPIRONOLACTONE 25 MG TAB PO SCH ×2 (08:59→16:42)
[2023-02-08] MEDS: FOLIC ACID 1 MG TAB PO SCH (08:59)
[2023-02-08] MEDS: MONTELUKAST SODIUM 10 MG TABLET PO SCH (09:00)
[2023-02-08] MEDS: PANTOprazole 40 MG TAB PO SCH ×2 (09:00→20:02)
[2023-02-08] MEDS: APIXABAN 5 MG TABLET PO SCH ×2 (09:00→20:02)
[2023-02-08] MEDS: busPIRone 15 MG TAB PO SCH ×2 (09:00→20:02)
[2023-02-08] MEDS: GABAPENTIN 600 MG TAB PO SCH ×3 (09:00→20:02)
[2023-02-08] MEDS: FLUTICASONE PROPIONATE NA SPR 16 GM BTL SCH (09:01)
[2023-02-08] MEDS: NAPHAZOLIN/PHENIRAMIN OPH SOLN 75 DROPS/5 ML BTL OP SCH ×2 (09:01→20:03)
[2023-02-08] MEDS: MUPIROCIN 2% OINT 22 GM TUBE EXT SCH ×2 (09:02→20:04)
[2023-02-08] MEDS: FLUTICASONE/VILANTEROL 200/25MCG 14 PUFFS/INHALER INH SCH (09:02)
[2023-02-08] MEDS: UMECLIDINIUM BROMIDE 62.5MCG/BLISTER 7 PUFFS/INHALER INH SCH (09:02)
[2023-02-08] MEDS: COLLAGENASE OINT 30 GM TUBE EXT SCH (09:04)
[2023-02-08] MEDS ORDERED: POTASSIUM CHLORIDE CRTAB 20 MEQ TABCR PO ONE (09:04)
[2023-02-08] MEDS: ERYTHROMYCIN OP OINT 5 MG/GM 3.5 GM TUBE OP SCH ×4 (09:04→20:03)
[2023-02-08] MEDS: LANTUS PER UNIT CHARGE SQ SCH ×2 (09:20→21:15)
[2023-02-08] MEDS: INSULIN ASPART PER UNIT CHARGE SC SCH ×4 (09:20→21:16)
--- NOTE | 2023-02-08 10:58 | Hospitalist Progress Note ---
Date of Service February 08, 2023 Assessment & Plan (1) Cellulitis of left leg: Plan: Pt is a 47 yr male with a PMHx of DMII with neuropathy (controlled on last check), chronic venous stasis with lower extremity edema, Hx of DVT, Chronic pain, GERD, asthma/COPD, alcoholic cirrhosis, HLD, Mood disturbance who presents for evaluation of lower extremity wounds and bacterial conjunctivitis. Open lower extremity wounds in setting of Chronic Venous stasis changes and p eripheral neuropathy secondary to diabetes Peripheral arterial pulses are palpable Cellulitis of left lower extremity-chronic without any evidence of osteomyelitis --LE MRI repeat per ID was negative for osteomyelitis or abscess -- Tib/Fib XRrevealed soft tissue ulceration similar to previous -CRP 4.26 on admission -Normal lactic acid Blood cultures: Negative to date Wound cultures: H/O MRSA and pseudomonas Wound culture grew Pseudomonas, Acinetobacter Continue cefepime, d/c vanco per ID Consulted ID--recommend updated imaging which was negative, continue IV cefepime for additional 2 days, hopeful to d/c Saturday 02/10. ID recommends d/c on cipro; however pt was d/c on this last admission and returned, recommending d/c on cipro for total of 14 days at discharge, although pt previously on this and ended up re admitted - Discussed with ID Dr. Lim and his recommendations are that this is likely no true infection/cellulitis and more of colonization of wound with pseudomonas and acinetobacter. Pt needs vigilant wound care and throwing antibiotics when not indicated will make worse. Pt needs educated on proper wound care and that this is a vascular problem. He still recommends going with Dr. Vladimir rinaldi with d/c on cipro. * "Honestly, I don't believe it's infected to start with. His ulcer will always be colonized with pseudomonas and now Acinetobacter. He needs vigilant wound care and throwing antibiotics when not indicated will only make things worse. He should be educated that this ulcer is not a result of infection, but rather a vascular problem, and that it will be chronic and likely not respond to antibiotics. I would still go with the recommendations of Dr. Gilbert. Thanks" Continue Wound Care Advised to follow-up with wound clinic upon discharge (2) Wound infection: Plan: As above (3) Bacterial conjunctivitis: Plan: Bilateral eye conjunctivitis URI -sinus infection d/c cipro gtt switch to erythromycin oint warm compress/eyelid wash daily naph con gtt sx improving Plan Other significant medical conditions are as below: Neuropathy/chronic pain continue gabapentin Also on pain meds Alcoholic cirrhosis continue home lasix, spironolactone, folic acid No acute symptoms H/O DVT continue Eliquis GERD continue PPI Asthma/COPD pt with chronic wheezing no cough, feels breathing at baseline continue home inhalers, Singulair Mood disorder continue buspar, hydroxyzine, fluoxetine HLD On statin DM II HbA1c 6.5 01/13/23 Hold PO meds Continue insulin while hospitalized for protocol Monitor BGs DVT Px: Eliquis Code Status: Full code Disposition Home when stable, hopeful for Saturday 02/10, will need wound care appt and PCP follow up as well as appropriate wound care supplies Admission and Anticipated Discharge Date Admission Date: February 03, 2023 Supervising Physician Co-Signing Physician Notes Patient is seen and examined at bedside. States feeling better today. Sinus congestion, conjunctivitis improving. Denies any chest pain, dyspnea, nausea, abd pain. Chronic Leg wounds: Continue IV cefepime for now . Appreciate ID input. Vancomycin discontinued. Conjunctivitis likely viral--improving with current treatment. I personally reviewed the record. Patient is interviewed and examined at bedside. Patient's care is coordinated with Yanira Sims PA-C. Please refer to the documentation above for details of patient's presentation and for discussion of other issues. Subjective Patient was seen in room 306. Follow-up left lower extremity cellulitis and wound care as well as bilateral conjunctivitis. He feels his congestion and eyes are starting to improve today. He also feels pain in left leg improving. Denies f/c/s, chest pain, sob, n/v/d. Review of Systems Review of Systems: All systems reviewed & are unremarkable except as noted in Subjective Physical Exam Physical Exam: Gen: WD/WN, M, sitting up in bed, NAD, A&O x3 HEENT: Normocephalic, atraumatic, conjunctivae moist, sclerae anicteric, b/l conjunctival inj sparing limbus, no crusts in eye lashes today, mucous membranes moist. Lung: Clear to Auscultation bilaterally, b/l exp wheezing chronic for pt, no rales/rhonchi Heart: Regular rate, regular rhythm, no murmurs, rubs, or gallops Abdomen: Soft, NT, ND +BS x 4 Extremities: chronic venous stasis change with LLE dressing cdi Skin: Warm, no rash, negative turgor. Results & Data Results & Data Vital Signs (Past 12 Hours) Vital Signs Temp Pulse Resp BP Pulse Ox O2 Del Method 02/08/23 07:20 36.4 C L 69 16 127/78 96 Room Air Laboratory Results [facility] 02/08/23 05:23 Sodium 133 L Potassium 3.4 L Chloride 100 Carbon Dioxide 25 BUN 25 H Creatinine 0.82 Glucose 168 H Calcium 9.4 Medications Administered Current Inpatient Medications Acetaminophen (Acetaminophen 325 Mg Tab) 650 mg PO Q4H PRN PRN Reason: pain/fever Stop: 03/05/23 20:31 Al Hydrox/Mg Hydrox/Simethicone (Aluminum/Magnesium Susp 30 Ml Udc) 30 ml PO Q6H PRN PRN Reason: Dyspepsia Stop: 03/05/23 20:31 Albuterol (Albuterol Hfa 8 Gm Inhaler) 1 puffs INH Q6R PRN PRN Reason: Shortness Of Breath Stop: 03/05/23 20:31 Apixaban (Apixaban 5 Mg Tablet) 5 mg PO BID [facility] Stop: 03/05/23 20:59 Last Admin: 02/08/23 09:00 Dose: 5 mg Atorvastatin Calcium (Atorvastatin 10 Mg Tab) 10 mg PO QAM [facility] Stop: 03/06/23 08:59 Last Admin: 02/08/23 08:59 Dose: 10 mg Buspirone HCl (Buspirone 15 Mg Tab) 15 mg PO BID [facility] Stop: 03/05/23 20:59 Last Admin: 02/08/23 09:00 Dose: 15 mg Collagenase (Collagenase Oint 30 Gm Tube) 1 appln EXT DAILY [facility] Stop: 03/08/23 13:14 Last Admin: 02/08/23 09:04 Dose: 1 appln Dextrose (Dextrose 50% 50 Ml Syringe) 25 - 50 ml IV UD PRN; Protocol PRN Reason: Hypoglycemia Protocol Stop: 03/05/23 20:31 Diphenhydramine HCl (Diphenhydramine Capsule 25 Mg Cap) 25 mg PO Q6H PRN PRN Reason: Itching Stop: 03/06/23 10:24 Last Admin: 02/07/23 21:03 Dose: 25 mg Erythromycin (Erythromycin Op Oint 5 Mg/Gm 3.5 Gm Tube) 1 appln OP QID [facility] Stop: 02/10/23 12:59 Last Admin: 02/08/23 09:04 Dose: 1 appln Fluoxetine HCl (Fluoxetine Hcl 20 Mg Cap) 20 mg PO HS [facility] Stop: 03/05/23 20:59 Last Admin: 02/07/23 21:03 Dose: 20 mg Fluticasone Propionate (Fluticasone Propionate Na Spr 16 Gm Btl) 2 sprays NA DAILY [facility] Stop: 03/07/23 11:44 Last Admin: 02/08/23 09:01 Dose: 2 sprays Fluticasone/Vilanterol (Fluticasone/Vilanterol 200/25mcg 14 Puffs/Inhaler) 1 puffs INH DAILY [facility]; Protocol Stop: 03/06/23 08:59 Last Admin: 02/08/23 09:02 Dose: 1 puffs Folic Acid (Folic Acid 1 Mg Tab) 1 mg PO QAM [facility] Stop: 03/06/23 08:59 Last Admin: 02/08/23 08:59 Dose: 1 mg Furosemide (Furosemide 80 Mg Tab) 80 mg PO BID17 [facility] Stop: 03/06/23 08:59 Last Admin: 02/08/23 08:59 Dose: 80 mg Gabapentin (Gabapentin 600 Mg Tab) 600 mg PO TID [facility] Stop: 03/05/23 20:59 Last Admin: 02/08/23 09:00 Dose: 600 mg Glucagon (Glucagon For Inj 1 Mg Vial) 1 mg SQ UD PRN; Protocol PRN Reason: Hypoglycemia Protocol Stop: 03/05/23 20:31 Glucose (Glucose 10 Tab/Tube) 4 - 8 tab PO UD PRN; Protocol PRN Reason: Hypoglycemia Treatment Stop: 03/05/23 20:31 Glucose (Glucose 40% Gel 15 Gm Tube) 15 - 30 gm PO UD PRN; Protocol PRN Reason: Hypoglycemia Protocol Stop: 03/05/23 20:31 Heparin Sodium (Porcine) (Heparin 100 Unit/Ml 5ml Flush) 5 ml IV PRN PRN PRN Reason: Flush Stop: 03/06/23 23:51 Last Admin: 02/08/23 05:25 Dose: 5 ml Cefepime HCl 2,000 mg/ Syringe 20 mls @ 5 mls/min IV Q8H [facility]; Protocol Stop: 02/10/23 21:59 Last Admin: 02/08/23 05:25 Dose: 5 mls/min Insulin Aspart (Insulin Aspart Per Unit Charge) 0 units SC ACHS [facility] Stop: 03/05/23 20:59 Last Admin: 02/08/23 09:20 Dose: 12 units Insulin Glargine (Lantus Per Unit Charge) 5 units SQ BID [facility] Stop: 03/09/23 08:59 Last Admin: 02/08/23 09:20 Dose: 5 units Ipratropium [place] (Ipratropium [place] Neb Soln 0.02% 2.5 Ml Vial) 0.5 mg INH Q6R PRN PRN Reason: Wheezing Stop: 03/06/23 00:59 Levalbuterol HCl (Levalbuterol Hcl 0.63 Mg/3 Ml Neb) 0.63 mg NEB Q6R PRN PRN Reason: Wheezing Stop: 03/06/23 00:59 Magnesium Hydroxide (Magnesium Hydroxide Susp 30 Ml Udc) 30 ml PO Q6H PRN PRN Reason: Constipation Stop: 03/05/23 20:31 Miscellaneous (Carbohydrates For Hypoglycemia ) 15 - 30 gm PO UD PRN PRN Reason: Hypoglycemia Protocol Stop: 03/05/23 20:31 Miscellaneous (Remove Nicoderm Patch) 1 each N/A DAILY@0859 [facility] Stop: 03/07/23 08:58 Last Admin: 02/08/23 09:00 Dose: 1 each Montelukast Sodium (Montelukast Sodium 10 Mg Tablet) 10 mg PO DAILY [facility] Stop: 03/06/23 08:59 Last Admin: 02/08/23 09:00 Dose: 10 mg Morphine Sulfate (Morphine Sulfate 2 Mg/Ml Carp) 2 mg IV Q8H PRN PRN Reason: dressing changes Stop: 02/18/23 10:27 Last Admin: 02/07/23 10:53 Dose: 2 mg Multi-Ingredient Cream (Eucerin Cr 120 Gm Jar) 1 appln EXT TID PRN PRN Reason: Skin Irritation Stop: 03/05/23 20:31 Last Admin: 02/06/23 16:10 Dose: 1 appln Multivitamins (Multivitamin Tab) 1 tab PO QAM [facility] Stop: 03/06/23 08:59 Last Admin: 02/08/23 08:59 Dose: 1 tab Mupirocin (Mupirocin 2% Oint 22 Gm Tube) 1 appln EXT BID [facility] Stop: 02/10/23 20:59 Last Admin: 02/08/23 09:02 Dose: 1 appln Naphazoline HCl/Pheniramine Maleate (Naphazolin/Pheniramin Oph Soln 75 Drops/5 Ml Btl) 2 drops OP BID [facility] Stop: 03/09/23 11:59 Last Admin: 02/08/23 09:01 Dose: 2 drops Nicotine (Nicotine 14 Mg/24 Hr Patch) 14 mg TD QAM [facility] Stop: 03/06/23 10:29 Last Admin: 02/08/23 08:58 Dose: 14 mg Ondansetron HCl (Ondansetron Inj 2 Mg/Ml 2 Ml Vial) 4 mg IV Q6H PRN PRN Reason: Nausea Stop: 03/05/23 20:31 Oxycodone/Acetaminophen (Oxycodone/Acetaminophen 5mg/325mg Tab) 1 tab PO Q8H PRN PRN Reason: pain, severe Stop: 02/17/23 20:31 Last Admin: 02/08/23 07:33 Dose: 1 tab Pantoprazole Sodium (Pantoprazole 40 Mg Tab) 40 mg PO BID [facility]; Protocol Stop: 03/05/23 20:59 Last Admin: 02/08/23 09:00 Dose: 40 mg Polyethylene Glycol (Polyethylene (Miralax) 17 Gm Pack) 17 gm PO DAILY PRN PRN Reason: Constipation Stop: 03/05/23 20:31 Pseudoephedrine HCl (Pseudoephedrine Hcl 30 Mg Tab) 30 mg PO Q6H PRN PRN Reason: Nasal Congestion Stop: 03/07/23 11:34 Last Admin: 02/08/23 05:30 Dose: 30 mg Sodium Chloride (Sodium Chloride 0.65% Na Soln 45 Ml ([place])) 1 sprays NA UD PRN PRN Reason: Dryness Stop: 03/10/23 06:01 Spironolactone (Spironolactone 25 Mg Tab) 50 mg PO BID@0900,1600 [facility] Stop: 03/05/23 20:59 Last Admin: 02/08/23 08:59 Dose: 50 mg Umeclidinium [place] (Umeclidinium [place] 62.5mcg/Blister 7 Puffs/Inhaler) 1 puffs INH DAILY [facility]; Protocol Stop: 03/06/23 08:59 Last Admin: 02/08/23 09:02 Dose: 1 puffs
[2023-02-08] MEDS: MoRPHine SULFATE 2 MG/ML CARP IV PRN (14:51)
[2023-02-08] MEDS ORDERED: MELATONIN 3 MG TAB PO PRN (19:28)
[2023-02-08] MEDS: FLUoxetine HCL 20 MG CAP PO SCH (20:02)
[2023-02-08] MEDS ORDERED: MoRPHine SULFATE 4 MG/ML 1 ML CARP\\VIAL IV STA (22:56)
[2023-02-09] MEDS: oxyCODONE/ACETAMINOPHEN 5mg/325mg TAB PO PRN ×3 (04:03→22:31)
[2023-02-09] MEDS: CEFEPIME 2,000 MG in SYRINGE 0 ML IV SCH ×3 (05:51→22:34)
[2023-02-09] MEDS: PSEUDOEPHEDRINE HCL 30 MG TAB PO PRN (05:51)
[2023-02-09] MEDS: HEPARIN 100 UNIT/ML 5ML FLUSH IV PRN ×4 (05:52→19:49)
[2023-02-09 06:31] LABS: Basophils # (auto) 0.07 K/uL (0-0.2); Basophils % (auto) 0.9 %; Eosinophils # (auto) 0.21 K/uL (0-0.50); Eosinophils % (auto) 2.6 %; Hematocrit (blood only) 39.3 % (42.0-52.0); Immature Granulocytes # (auto) 0.09 K/uL (0.01-0.20); Immature Granulocytes % (auto) 1.1 %; Lymphocytes # (auto) 1.29 K/uL (1.2-3.4); Lymphocytes % (auto) 15.9 %; Mean Corpuscular Hemoglobin 26.9 pg (25.0-34.0); Mean Corpuscular Hgb Conc 33.1 g/dL (32.0-36.0); Mean Corpuscular Volume 81.4 fL (80.0-100.0); Mean Platelet Volume 9.6 fL (9.4-12.4); Monocytes # (auto) 0.48 K/uL (0.11-0.59); Monocytes % (auto) 5.9 %; Neutrophils # (auto) 5.98 K/uL (1.40-6.50); Neutrophils % (auto) 73.6 %; Platelet Count 256 K/uL (130-400); RDW Coefficient of Variation 14.1 % (11.5-14.5); RDW Standard Deviation 41.7 fL (36.4-46.3); Red Blood Count 4.83 M/uL (4.70-6.10); White Blood Count 8.12 K/ul (4.8-10.8)
[2023-02-09 06:45] LABS: BUN Creatinine Ratio 32.9 (10-20); Calcium 9.3 mg/dl (8.6-10.3); Creatinine Clr Calc Pharmacy 134.1 ml/min; Est GFR (African American) 123.1 ml/min; Est GFR (Non-African American) 106.2 ml/min; Magnesium 2.2 mg/dl (1.7-2.4); Potassium 3.6 mmol/L (3.5-5.1)
[2023-02-09] MEDS: FLUTICASONE PROPIONATE NA SPR 16 GM BTL SCH (08:29)
[2023-02-09] MEDS: UMECLIDINIUM BROMIDE 62.5MCG/BLISTER 7 PUFFS/INHALER INH SCH (08:30)
[2023-02-09] MEDS: FLUTICASONE/VILANTEROL 200/25MCG 14 PUFFS/INHALER INH SCH (08:30)
[2023-02-09] MEDS: NAPHAZOLIN/PHENIRAMIN OPH SOLN 75 DROPS/5 ML BTL OP SCH ×2 (08:31→22:34)
[2023-02-09] MEDS: ERYTHROMYCIN OP OINT 5 MG/GM 3.5 GM TUBE OP SCH ×4 (08:31→22:45)
[2023-02-09] MEDS: MONTELUKAST SODIUM 10 MG TABLET PO SCH (08:32)
[2023-02-09] MEDS: FUROSEMIDE 80 MG TAB PO SCH ×2 (08:33→16:20)
[2023-02-09] MEDS: NICOTINE 14 MG/24 HR PATCH TD SCH (08:33)
[2023-02-09] MEDS: ATORVASTATIN 10 MG TAB PO SCH (08:34)
[2023-02-09] MEDS: MULTIVITAMIN TAB PO SCH (08:34)
[2023-02-09] MEDS: SPIRONOLACTONE 25 MG TAB PO SCH ×2 (08:34→16:21)
[2023-02-09] MEDS: FOLIC ACID 1 MG TAB PO SCH (08:34)
[2023-02-09] MEDS: busPIRone 15 MG TAB PO SCH ×2 (08:35→22:32)
[2023-02-09] MEDS: MUPIROCIN 2% OINT 22 GM TUBE EXT SCH ×2 (08:35→22:33)
[2023-02-09] MEDS: APIXABAN 5 MG TABLET PO SCH ×2 (08:35→22:31)
[2023-02-09] MEDS: GABAPENTIN 600 MG TAB PO SCH ×3 (08:35→22:31)
[2023-02-09] MEDS: PANTOprazole 40 MG TAB PO SCH ×2 (08:35→22:31)
[2023-02-09] MEDS: LANTUS PER UNIT CHARGE SQ SCH ×2 (08:43→22:33)
[2023-02-09] MEDS: INSULIN ASPART PER UNIT CHARGE SC SCH ×4 (08:43→22:32)
[2023-02-09] MEDS: COLLAGENASE OINT 30 GM TUBE EXT SCH (08:45)
[2023-02-09] MEDS: MoRPHine SULFATE 2 MG/ML CARP IV PRN (09:31)
--- NOTE | 2023-02-09 13:56 | Hospitalist Progress Note ---
Date of Service February 09, 2023 Assessment & Plan (1) Cellulitis of left leg: Plan: Pt is a 47 yr male with a PMHx of DMII with neuropathy (controlled on last check), chronic venous stasis with lower extremity edema, Hx of DVT, Chronic pain, GERD, asthma/COPD, alcoholic cirrhosis, HLD, Mood disturbance who presents for evaluation of lower extremity wounds and bacterial conjunctivitis. Open lower extremity wounds in setting of Chronic Venous stasis changes and p eripheral neuropathy secondary to diabetes Peripheral arterial pulses are palpable Cellulitis of left lower extremity-chronic without any evidence of osteomyelitis --LE MRI repeat per ID was negative for osteomyelitis or abscess -- Tib/Fib XRrevealed soft tissue ulceration similar to previous -CRP 4.26 on admission -Normal lactic acid Blood cultures: Negative to date Wound cultures: H/O MRSA and pseudomonas Wound culture grew Pseudomonas, Acinetobacter Continue cefepime, d/c vanco per ID Consulted ID--recommend updated imaging which was negative, continue IV cefepime for additional 2 days, hopeful to d/c Saturday 02/10. ID recommends d/c on cipro; however pt was d/c on this last admission and returned, recommending d/c on cipro for total of 14 days at discharge, although pt previously on this and ended up re admitted - Discussed with ID Dr. Lim and his recommendations are that this is likely no true infection/cellulitis and more of colonization of wound with pseudomonas and acinetobacter. Pt needs vigilant wound care and throwing antibiotics when not indicated will make worse. Pt needs educated on proper wound care and that this is a vascular problem. He still recommends going with Dr. Vladimir rinaldi with d/c on cipro. * "Honestly, I don't believe it's infected to start with. His ulcer will always be colonized with pseudomonas and now Acinetobacter. He needs vigilant wound care and throwing antibiotics when not indicated will only make things worse. He should be educated that this ulcer is not a result of infection, but rather a vascular problem, and that it will be chronic and likely not respond to antibiotics. I would still go with the recommendations of Dr. Gilbert. Thanks" Continue Wound Care Advised to follow-up with wound clinic upon discharge (2) Wound infection: Plan: As above (3) Bacterial conjunctivitis: Plan: Bilateral eye conjunctivitis URI -sinus infection d/c cipro gtt switch to erythromycin oint warm compress/eyelid wash daily naph con gtt sx improving Plan Other significant medical conditions are as below: Neuropathy/chronic pain continue gabapentin Also on pain meds Alcoholic cirrhosis continue home lasix, spironolactone, folic acid No acute symptoms H/O DVT continue Eliquis GERD continue PPI Asthma/COPD pt with chronic wheezing no cough, feels breathing at baseline continue home inhalers, Singulair Mood disorder continue buspar, hydroxyzine, fluoxetine HLD On statin DM II HbA1c 6.5 01/13/23 Hold PO meds Continue insulin while hospitalized for protocol Monitor BGs DVT Px: Eliquis Code Status: Full code Disposition Home when stable, hopeful for Saturday 02/10, will need wound care appt and PCP follow up as well as appropriate wound care supplies I spent a total of 40 minutes coordinating, documenting, and providing care for this patient excluding time spent in the performance of separately billed services. Admission and Anticipated Discharge Date Admission Date: February 03, 2023 Supervising Physician Co-Signing Physician Notes Patient is seen and examined at bedside. No new complaints. Conjunctivitis and Sinusitis much improved. Reports minimal leg wound pain intermittently. Denies any chest pain, dyspnea, nausea, abd pain. On exam patient is moderately built and nourished, no apparent distress, normocephalic/atraumatic, EOMI, normal breath sounds, clear to auscultation, S1-S2, no murmur, abdomen soft, nontender, normal bowel sounds, chronic leg wounds and dressings, alert, awake, oriented, grossly no focal deficits. Chronic Leg wounds/leg cellulitis: Continue IV cefepime for now . Plan to discharge on oral ciprofloxacin to complete the course. Appreciate ID input. Conjunctivitis likely viral--improving with current treatment. Sinusitis improving as well. I personally reviewed the record. Patient is interviewed and examined at bedside. Patient's care is coordinated with Jeanna Ahmadi PA-C. Please refer to the documentation above for details of patient's presentation and for discussion of other issues. Subjective Patient was seen in room 306 in follow-up left lower extremity cellulitis and wound care as well as bilateral conjunctivitis. Congestion and eyes are continuing to improve. Leg pain worsened overnight and had difficulty sleeping. Just had dressings changed. Plan for dc home tomorrow per ID recs. Denies f/c/s, chest pain, sob, n/v/d. Review of Systems Review of Systems: All systems reviewed and are unremarkable except as noted below Physical Exam Physical Exam: Gen: WD/WN, NAD, sitting up in bed resting comfortably, A&Ox3 HEENT: Normocephalic, atraumatic, conjunctivae injected but improving, mucous membranes moist Lung: Clear to Auscultation bilaterally, no wheezes/rales/rhonchi Heart: Regular rate, regular rhythm, no murmurs, rubs, or gallops Abdomen: Soft, NT, ND +BS x 4 Extremities: Chronic venous stasis change with LLE dressing clean/dry/intact, no edema Skin: Warm, no rash Results & Data Results & Data Vital Signs (Past 12 Hours) Vital Signs Temp Pulse Resp BP Pulse Ox O2 Del Method 02/09/23 08:01 36.6 C 69 18 125/81 97 Room Air Laboratory Results Short CBC 02/09/23 Range/Units 05:54 WBC 8.12 (4.8-10.8) K/ul Hgb 13.0 L (14.0-18.0) g/dl Hct 39.3 L (42.0-52.0) % Plt Count 256 (130-400) K/uL BMP 02/09/23 05:54 Sodium 133 L Potassium 3.6 Chloride 100 Carbon Dioxide 26 BUN 26 H Creatinine 0.79 Glucose 185 H Calcium 9.3 Diagnostic Findings Chest X-Ray 02/03/23 13:35 XR chest 1V portable HISTORY: 47 years-old Male cough acute cough COMPARISON: 10/02/2022 TECHNIQUE: AP view of the chest FINDINGS: Cardiac silhouette is enlarged. Right IJ [id number]-[id number]-[id number] catheter is unchanged. Chronic interstitial coarsening. No pneumothorax, pleural effusion or lobar airspace consolidation. Bones appear grossly intact. IMPRESSION: No acute process. ACT 112: Negative or not required by law. The above report was generated using voice recognition software. It may contain grammatical, syntax or spelling errors. Electronically signed by: Dante Cavazos M.D. 02/03/2023 3:51 PM Tibia/Fibula X-Ray 02/03/23 13:42 LEFT TIBIA AND FIBULA 2 VIEWS CLINICAL HISTORY: Ulcer. FINDINGS: AP and crosstable lateral portable views of the left tibia and fibula are compared to study dated 10/02/2022. The skeletal structures are osteopenic. No fracture is seen. There is no bony erosion. Benign-appearing periostitis is again seen along the tibial and fibular shafts. The knee and ankle joints are grossly maintained. An ulceration is again suggested within the medial soft tissues above the ankle joint. There is surrounding soft tissue edema. No radiodense foreign body or soft tissue gas is seen. There is atherosclerotic calcification of the regional arteries. IMPRESSION: 1. No acute bony abnormality is seen involving the left tibia or fibula. 2. Soft tissue ulceration with surrounding edema as above. This is similar to previous. Electronically signed by: Emil Morelos M.D. 02/03/2023 3:29 PM Ankle MRI 02/07/23 11:58 MR ankle LT wo/w con CLINICAL HISTORY: r/o osteomyelitis TECHNIQUE: Multisequence, multiplanar MR images of the left ankle were obtained prior to and following administration of gadolinium contrast. COMPARISON: Comparison is made to tibia and fibular radiograph 02/03/2023 FINDINGS: There is an ulcer at the level of the lateral malleolus. No significant soft tissue edema is seen and there is no underlying bony edema. IMPRESSION: No evidence of osteomyelitis or drainable fluid collection. An ulcer is noted at the level of the lateral malleolus without evidence of significant cellulitis.. ACT 112: Negative or not required by law. Electronically signed by: Tino Zaidi M.D. 02/07/2023 2:17 PM
[2023-02-09] MEDS: EUCERIN CR 120 GM JAR EXT PRN (16:23)
[2023-02-09] MEDS ORDERED: MoRPHine SULFATE 4 MG/ML 1 ML CARP\\VIAL IV STA (19:42)
[2023-02-09] MEDS: FLUoxetine HCL 20 MG CAP PO SCH (22:31)
[2023-02-09] MEDS: diphenhydrAMINE Capsule 25 MG CAP PO PRN (22:32)
[2023-02-10] MEDS: oxyCODONE/ACETAMINOPHEN 5mg/325mg TAB PO PRN (06:37)
[2023-02-10 06:55] LABS: BUN Creatinine Ratio 32.9 (10-20); Calcium 9.8 mg/dl (8.6-10.3); Creatinine Clr Calc Pharmacy 151.3 ml/min; Est GFR (African American) 129.3 ml/min; Est GFR (Non-African American) 111.6 ml/min; Potassium 3.7 mmol/L (3.5-5.1)
[2023-02-10] MEDS: CEFEPIME 2,000 MG in SYRINGE 0 ML IV SCH ×2 (07:39→13:18)
[2023-02-10] MEDS: UMECLIDINIUM BROMIDE 62.5MCG/BLISTER 7 PUFFS/INHALER INH SCH (07:43)
[2023-02-10] MEDS: FLUTICASONE/VILANTEROL 200/25MCG 14 PUFFS/INHALER INH SCH (07:43)
[2023-02-10] MEDS: FLUTICASONE PROPIONATE NA SPR 16 GM BTL SCH (07:43)
[2023-02-10] MEDS: NAPHAZOLIN/PHENIRAMIN OPH SOLN 75 DROPS/5 ML BTL OP SCH (07:44)
[2023-02-10] MEDS: MUPIROCIN 2% OINT 22 GM TUBE EXT SCH (07:44)
[2023-02-10] MEDS: ERYTHROMYCIN OP OINT 5 MG/GM 3.5 GM TUBE OP SCH (07:44)
[2023-02-10] MEDS: busPIRone 15 MG TAB PO SCH (07:45)
[2023-02-10] MEDS: PANTOprazole 40 MG TAB PO SCH (07:45)
[2023-02-10] MEDS: FUROSEMIDE 80 MG TAB PO SCH (07:45)
[2023-02-10] MEDS: MONTELUKAST SODIUM 10 MG TABLET PO SCH (07:45)
[2023-02-10] MEDS: GABAPENTIN 600 MG TAB PO SCH ×2 (07:46→13:18)
[2023-02-10] MEDS: SPIRONOLACTONE 25 MG TAB PO SCH (07:46)
[2023-02-10] MEDS: APIXABAN 5 MG TABLET PO SCH (07:46)
[2023-02-10] MEDS: FOLIC ACID 1 MG TAB PO SCH (07:46)
[2023-02-10] MEDS: MULTIVITAMIN TAB PO SCH (07:46)
[2023-02-10] MEDS: ATORVASTATIN 10 MG TAB PO SCH (07:47)
[2023-02-10] MEDS: NICOTINE 14 MG/24 HR PATCH TD SCH (07:49)
[2023-02-10] MEDS: INSULIN ASPART PER UNIT CHARGE SC SCH ×2 (08:24→12:11)
[2023-02-10] MEDS: LANTUS PER UNIT CHARGE SQ SCH (08:24)
[2023-02-10] MEDS: COLLAGENASE OINT 30 GM TUBE EXT SCH (10:33)
[2023-02-10] MEDS: MoRPHine SULFATE 2 MG/ML CARP IV PRN (10:33)
--- NOTE | 2023-02-10 12:57 | Discharge Summary ---
Discharge Summary Date of Service February 10, 2023 Notes For Next Care Provider Recurrent bilateral lower extremity wounds 2/2 chronic venous stasis and diabetes Medication Changes From Visit Cipro twice daily x14 days Admission HPI Per Admitting Provider Pt is a 47yo gentleman with a PMHx of DMII with neuropathy (controlled on last check), chronic venous stasis with lower extremity edema, Hx of DVT, Chronic pain, GERD, asthma/COPD, alcoholic cirrhosis, HLD, Mood disturbance who presents for evaluation of lower extremity wounds and URI x1 week. Of significance patient was recently hospitalized 01/12 to 01/17 secondary to left lower extremity wound and Pseudomonas infection. He was treated with IV cefepime and transition to oral ciprofloxacin for additional 5 days. He was also prescribed Xeroform and set up with [facility] wound clinic. Patient states since discharge within approximately 1 week he felt like his left lower extremity was becoming more warm and more painful. He denies any significant drainage. He ran out of supplies that the hospital gave him and states that his pharmacy never got the Xeroform prescription. Also in the past week he developed an upper respiratory infection with significant sinus congestion, postnasal drip and over the last 2 days the symptoms have significantly worsened. He now has itchy watery eyes, bilateral red eyes, photophobia, blurry vision and yellowish crusting discharge on his bilateral eyelashes. He states he currently cannot even drive because his eyes are so itchy, watery and blurry. He states every time he did his wound care he make sure he wear gloves and he does not feel like he touched his wound and then touched his eye. He denies any fever, chills, sweats, lightheadedness, dizziness, chest pain, shortness breath, cough, nausea, vomiting, abdominal pain. He is been compliant with his medications. He is currently requesting pain medications. In ED patient remained hemodynamically stable. His CBC and CMP was generally unremarkable. His CRP was 4.26 and ESR 76. His bio fire respiratory panel was negative. In ED patient was empirically cover with IV daptomycin and Zosyn. He received a dose of IV Solu-Medrol and albuterol due to ER provider concern for possible bronchitis. Admission Exam Per Admitting Provider Constitutional: WD/WN, appears acutely ill, vitals as above, NAD, sitting up in bed, answers questions appropriate Head: Normocephalic, Atraumatic Eyes: Bilateral conjunctival injection sparing limbus, bilateral eyelid yellow crusts, PERRL, conjunctivae, anicteric sclerae ENMT: external ear and nose normal, crusting of bilateral nasal canal and hypertrophy of nasal turbinates ,oropharynx normal Neck: trachea midline, no thyromegaly normal visual inspection Respiratory: normal respiratory effort, lungs clear to auscultation, no wheeze, rales, rhonchi. Normal insp/exp effort, no accessory muscle use Cardiovascular: RRR, no murmur, bilateral lower extremity venous stasis changes with nodularity, left venous wound superior to medial malleoli are, left lower extremity tibial area is warm to touch Vessels: no JVD or carotid bruit Chest: normal inspection of chest Abdomen: normal bowel sounds, soft, nontender, no hepatosplenomegaly Musculoskeletal: no cyanosis or clubbing, extremities motor strength 5/5 Skin: no rashes, warm and dry normal turgor Neurologic: PERRL, EOMI, accommodation nl, no face palsy, no dysarthria CN's II-XI intact bilaterally and moves all extremities Psychiatric: A+Ox3, euthymic affect Lymphatic: no cervical or axillary lymphadenopathy : deferred Principal Dx & Hospital Course #1 = Principal Diagnosis (1) Cellulitis of left leg: (2) Wound infection: (3) Bacterial conjunctivitis: Plan Pt is a 47 yr male with a PMHx of DMII with neuropathy (controlled on last check), chronic venous stasis with lower extremity edema, Hx of DVT, Chronic pain, GERD, asthma/COPD, alcoholic cirrhosis, HLD, Mood disturbance who presents for evaluation of lower extremity wounds and bacterial conjunctivitis. Has had multiple admissions for treatment of open lower extremity wounds in setting of Chronic Venous stasis changes and peripheral neuropathy secondary to diabetes. LE MRI repeat per ID was negative for osteomyelitis or abscess. Tib/Fib XRrevealed soft tissue ulceration similar to previous. Wound culture grew Pseudomonas, Acinetobacter. Per ID recommendations from Dr. Gilbert and Dr. Lim, feel patient's ulcer will always be colonized with Pseudomonas and now Acinetobacter. Needs vigilant wound care and continued vascular follow-up. Recommend 14 days of p.o. Cipro on discharge. Patient is to follow-up with wound care clinic. Treated for bilateral eye conjunctivitis in setting of recent sinus infection. Complete treatment with erythromycin ointment for 2 additional days, warm compresses with improvement. Patient is comfortable and hemodynamically stable at time of discharge. Discharge Exam Gen: WD/WN, NAD, sitting up in bed resting comfortably, A&Ox3 HEENT: Normocephalic, atraumatic, conjunctivae injected but improving, mucous membranes moist Lung: Clear to Auscultation bilaterally, no wheezes/rales/rhonchi Heart: Regular rate, regular rhythm, no murmurs, rubs, or gallops Abdomen: Soft, NT, ND +BS x 4 Extremities: Chronic venous stasis change with LLE dressing clean/dry/intact, no edema Skin: Warm, no rash Updated Medication List Medication Instructions Recorded Confirmed Type albuterol sulfate 90 mcg/actuation 1 puff inhalation Q6H PRN 05/09/18 02/03/23 History aerosol inhaler (Ventolin HFA) Shortness Of Breath folic acid 1 mg tablet 1 mg PO QAM 05/09/18 02/03/23 History omeprazole 20 mg capsule,delayed 20 mg PO BID 05/09/18 02/03/23 History release diphenhydramine HCl 25 mg capsule 25 - 50 mg PO Q6H PRN Itching 10/23/19 02/03/23 History (Benadryl) furosemide 80 mg tablet 80 mg PO BID17 10/23/19 02/03/23 History atorvastatin 10 mg tablet 10 mg PO QAM 06/05/20 02/03/23 History gabapentin 600 mg tablet 600 mg PO TID 06/05/20 02/03/23 History multivitamin 1 tab PO QAM 06/05/20 02/03/23 History spironolactone 50 mg tablet 50 mg PO BID 06/05/20 02/03/23 History buspirone 15 mg tablet 15 mg PO BID 10/02/22 02/03/23 History fluoxetine 20 mg capsule 20 mg PO HS 10/02/22 02/03/23 History fluticasone 500 mcg-salmeterol 50 1 inh inhalation BID 10/02/22 02/03/23 History mcg/dose blistr powdr for inhalation metformin 1,000 mg tablet 1,000 mg PO BID 10/02/22 02/03/23 History montelukast 10 mg tablet 10 mg PO DAILY 10/02/22 02/03/23 History apixaban 5 mg tablet (Eliquis) 5 mg PO BID #60 tabs 10/04/22 02/03/23 Rx ammonium lactate 5 % lotion 1 applic EXT BID #226 grams 10/08/22 02/03/23 Rx (Lac-Hydrin Five) hydroxyzine HCl 10 mg tablet 10 mg PO Q8H PRN Itching 10/29/22 02/03/23 History tiotropium bromide 2.5 2 inh inhalation DAILY 10/29/22 02/03/23 History mcg/actuation mist for inhalation (Spiriva Respimat) white petrolatum-mineral oil 1 applic EXT TID PRN Skin 10/29/22 02/03/23 History topical cream (Dermacerin topical Irritation cream) oxycodone-acetaminophen 5 mg-325 1 tab PO Q8H PRN pain, severe #18 01/17/23 02/03/23 Rx mg tablet tabs clotrimazole 1 % topical cream 1 applic EXT BID #45 grams 01/18/23 02/03/23 Rx ciprofloxacin HCl 500 mg tablet 500 mg PO BID #28 tabs 02/10/23 Rx erythromycin 5 mg/gram (0.5 %) eye 1 applic ophthalmic (eye) QID #3.5 02/10/23 Rx ointment grams Hospital Stay Data Consultations 02/03/23 17:06 ED Decision to Admit Stat 02/05/23 09:08 Consult Infectious Diseases Routine Diagnostic Imagining Performed 02/07/23 11:58 MR ankle LT wo/w con Routine Pending Results Patient Have Any Pending Studies at Discharge: No Discharge Instructions Given to Patient (Per Discharging Provider) MEDICATION CHANGES: Cipro 500mg by mouth twice daily x 14 days forwounds Continue antibiotic eye ointment to both eyes 4x / day for 2 more days to complete treatment SUMMARY OF TEST RESULTS: You were admitted to hospital for worsening wound infection and bacterial conjunctivitis Open lower extremity wounds in setting of Chronic Venous stasis changes and peripheral neuropathy secondary to diabetes LE MRI repeat per ID was negative for osteomyelitis or abscess Wound culture grew Pseudomonas, Acinetobacter Per infectious disease, wounds are likely colonized with pseudomonas and now Acinetobacter. Continue vigilant wound care, vascular follow up. Continue 14 days of Cipro to complete treatment. Follow-up with wound clinic upon discharge For eye infection - continue erythromycin ointment as above to complete treatment PENDING TEST RESULTS: None RECOMMENDATIONS FOR FOLLOW-UP: Follow up with PCP and wound care as scheduled. Complete antibiotic in its entirety. Continue medication regimen as scheduled aside from changes noted above. OTHER INSTRUCTIONS: Seek medical attention if you have: * temperature above 101 * chest pain or trouble breathing * abdominal pain, nausea, vomiting * diarrhea, dark stools or bloody stools * any unanswered questions or concerns Call 911 if symptoms are severe. Please take good care of yourself. Call if you have any questions or problems. You can reach a [facility] hospitalist on duty at [facility] 24 hours a day by calling [phone]. Total Time Total Time Spent Total Time Spent (In Minutes): 50 Supervising Physician Co-Signing Physician Notes Pt seen and examined by myself, Carmen Stoll MD on the day of service. Care was coordinated with Jeanna Ahmadi PA-C. Please refer to her note for additional information. Pt stated that his symptoms had improved and he was ready for discharge. Advised to follow up with the wound clinic, continue with his 14 days of PO cipro. Conjunctival symptoms were resolved. PCP followup. Otherwise as above.
== END 2023-02-10 13:55 | disposition home or self-care (01) | DRG 603 ==
LOC: ED 12:29 → 3E 18:00 → SUATTDRO 18:00 → 3E 20:08

== ENCOUNTER 2023-06-04 14:51 | Inpatient (IN) ==
[2023-06-04] MEDS ORDERED: SODIUM CHLORIDE 0.9% 500 ML IV SCH (15:15)
--- NOTE | 2023-06-04 15:17 | Emergency Department Note ---
Impression & Plan Venous ulcers of both lower extremities ADMIT ED Provider Note HPI: History obtained from patient. The patient is a 48-year-old gentleman with history of venous stasis, chronic wounds to the bilateral medial aspect of his ankles, presents emergency department with chief complaint of possible wound infection. Patient states that approximately 2 weeks ago his ankle wound seem to be healed over however they began to open back up. Patient states he believes this might be secondary to some orthotic braces that he was wearing on his ankles. On arrival here to the ED the patient is hemodynamically stable, he is in no acute distress. He states that his sister noticed that his wounds were more open and foul-smelling today and recommended he come to the ER to be assessed. Patient is nontoxic appearing on arrival, he is afebrile, he is otherwise hemodynamically stable ROS: - Per HPI Differential Diagnosis: Wound cellulitis, necrotizing soft tissue infection, soft tissue abscess, amongst other potential pathologies. *Outpatient medications and allergy history reviewed. *Pertinent external medical records reviewed PE: General: Alert HEENT: Normocephalic, trachea midline Eyes: Extraocular eye movement is intact, no scleral erythema Pulmonary: Clear to auscultation bilaterally, no wheezing Cardio: Regular rate and rhythm GI: Abdomen is soft to palpation : No suprapubic tenderness MSK: No evidence of trauma or malformation of the extremities, mild bilateral edema Skin: No evidence of rash, open wounds to the bilateral medial aspects of the bilateral ankles with central purulence, no crepitus to palpation in the surrounding soft tissues, no pain out of proportion to exam Neuro: Alert, no focal deficits Psychiatric: Cooperative INDEPENDENT INTERPRETATIONS: lunchroom monitor: (As interpreted by myself): - An order was placed for continuous cardiac monitoring - Patient was noted to be in sinus rhythm with a rate of 85 Interventions provided in ED: -IV vancomycin, IV cefepime, IV normal saline bolus Medical Decision Making: IV was established and lab work obtained, patient was placed on monitoring tech. Lab work does not show any leukocytosis, hemoglobin is low at 10.2 which is slightly below the patient's baseline. No recent bleeding reported. Platelet count is normal. ESR is elevated at 41, CMP shows hypokalemia, hypocalcemia, and hypomagnesemia. C-reactive protein is elevated at 2.52. Procalcitonin is low. X-ray imaging of the bilateral ankles does not show any evidence of bony infection or subcutaneous gas. Patient's wounds are purulent and malodorous. I do have concern for wound infection. I discussed this with the patient and he is requesting inpatient admission for IV antibiotics as he states that when his wounds get to this point this is typically what he requires. This is reasonable given the appearance of his wounds, his electrolyte abnormalities, and elevation in his inflammatory markers. Case was discussed with the on-call hospitalist service for [facility], Ginger Ornelas NP, and the patient was placed for admission in stable condition. Consultants/Discussions held with other healthcare providers: -[facility] hospitalist service, Dr Herr Disposition discussion held by myself with: -Patient Diagnosis: 1. Venous stasis ulcers, chronic, with acute infection 2. Wound cellulitis, acute 3. Elevated ESR 4. Elevated CRP 5. Hypocalcemia, acute 6. Hypomagnesemia, acute 7. Hypokalemia, acute Disposition: Admission Aleksandr Lagunas DO Emergency Medicine Past Med/Surg History Medical History (Updated 06/04/23 @ 16:54 by Aleksandr Lagunas DO) Anxiety and depression Asthma USED RESCUE INHALER TODAY Blood clotting disorder ? NAME Cellulitis BILAT LEGS (WRAPS LEGS/DRY CLOTH) CURRENTLY HAS SOME OPEN WOUNDS>GOES TO WOUND CLINIC/[place] Chronic deep vein thrombosis (DVT) 2018 (HOSPITALIZED AT [facility]) Chronic narcotic use Chronic ulcer of lower extremity RT LEG ONLY OPEN WOUND AT THIS TIME Chronic venous stasis dermatitis of both lower extremities Cirrhosis Diabetes mellitus, type 2 GERD (gastroesophageal reflux disease) History of ETOH abuse QUIT 2018 HTN (hypertension) Hyperlipidemia Pulmonary embolism 13 YEARS AGO ? DETAILS Pulmonary nodule CT chest 04/12/18 - 4 mm RUL nodule, f/u 12 months Tobacco abuse Type 2 diabetes mellitus Surgical History History of anesthesia reaction WITH A-PORT INSERTION, WOKE UP IN MIDDLE OF PROCEDURE History of vascular access device APORT IN RT CHEST (IN PLACE) [place] teeth removed Family History Father ETOH abuse Cirrhosis Mother Hypercoagulable state Prothrombin Factor II Mutation, 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, boderline hyperhomocystemia Social History Smoking Status: Current every day smoker Tobacco Type: Cigarettes Cigarettes Per Day: 3; Second Hand Exposure: No; Do You Dip or Chew Tobacco: No; Hx Alcohol Use: No Hx Substance Use: No Preferred Language: Namibian Communication Ability: Effective Visual Impairment: No Limitations Hearing Ability: Normal Senior Supply Chain Analyst Required: No Beliefs That Will Affect Care: None marital status: Current Living Situation: Alone How many Children do You have: 0 Feels Safe at Home: Yes Assistive Devices: None Allergies Allergies Allergy/AdvReac Type Severity Reaction Status Date / Time peas Allergy Severe Anaphylaxis Verified 01/12/23 10:36 tuna oil Allergy Severe Anaphylaxis Verified 01/12/23 14:22 to "tuna" sulfamethoxazole Allergy Intermediate hives Verified 01/12/23 10:36 trimethoprim Allergy Intermediate hives Verified 01/12/23 10:36 Home Meds Home Medications Medication Instructions Recorded Confirmed albuterol sulfate 90 mcg/actuation 1 puff inhalation Q6H PRN 05/09/18 02/03/23 aerosol inhaler (Ventolin HFA) Shortness Of Breath folic acid 1 mg tablet 1 mg PO QAM 05/09/18 02/03/23 omeprazole 20 mg capsule,delayed 20 mg PO BID 05/09/18 02/03/23 release diphenhydramine HCl 25 mg capsule 25 - 50 mg PO Q6H PRN Itching 10/23/19 02/03/23 (Benadryl) furosemide 80 mg tablet 80 mg PO BID17 10/23/19 02/03/23 atorvastatin 10 mg tablet 10 mg PO QAM 06/05/20 02/03/23 gabapentin 600 mg tablet 600 mg PO TID 06/05/20 02/03/23 multivitamin 1 tab PO QAM 06/05/20 02/03/23 spironolactone 50 mg tablet 50 mg PO BID 06/05/20 02/03/23 buspirone 15 mg tablet 15 mg PO BID 10/02/22 02/03/23 fluoxetine 20 mg capsule 20 mg PO HS 10/02/22 02/03/23 fluticasone 500 mcg-salmeterol 50 1 inh inhalation BID 02/05/23 06/09/23 mcg/dose blistr powdr for inhalation metformin 1,000 mg tablet 1,000 mg PO BID 10/02/22 02/03/23 montelukast 10 mg tablet 10 mg PO DAILY 10/02/22 02/03/23 hydroxyzine HCl 10 mg tablet 10 mg PO Q8H PRN Itching 10/29/22 02/03/23 tiotropium bromide 2.5 2 inh inhalation DAILY 10/29/22 02/03/23 mcg/actuation mist for inhalation (Spiriva Respimat) white petrolatum-mineral oil 1 applic EXT TID PRN Skin 10/29/22 02/03/23 topical cream (Dermacerin topical Irritation cream) Previous Rx's Medication Instructions Recorded apixaban 5 mg tablet (Eliquis) 5 mg PO BID #60 tabs 10/04/22 ammonium lactate 5 % lotion 1 applic EXT BID #226 grams 10/08/22 (Lac-Hydrin Five) oxycodone-acetaminophen 5 mg-325 1 tab PO Q8H PRN pain, severe #18 01/17/23 mg tablet tabs clotrimazole 1 % topical cream 1 applic EXT BID #45 grams 01/18/23 ciprofloxacin HCl 500 mg tablet 500 mg PO BID #28 tabs 02/10/23 erythromycin 5 mg/gram (0.5 %) eye 1 applic ophthalmic (eye) QID #3.5 02/10/23 ointment grams Results & Data (ED) Vital Signs Vital Signs - 24 hr 06/04/23 15:00 06/04/23 15:23 06/04/23 15:37 Temperature 36.7 C Temperature Source Oral Pulse Rate 95 H 101 H Pulse Rate [Apical] 86 Pulse Rate from SpO2 Sensor Respiratory Rate 20 20 Respiratory Effort / Characteristics Non-Labored Spontaneous Non-Labored Respiratory Depth Normal Normal Respiratory Pattern Regular Blood Pressure 135/84 Blood Pressure [Right Arm] 145/94 H Blood Pressure Mean 101 Blood Pressure Mean [Right Arm] 111 Pulse Oximetry 98 98 Oxygen Delivery Method Room Air Room Air Sepsis Recent Fever Within 48 Hours No Sepsis New/Unexplained Change in Mental Status N/A Sepsis Action Taken by Nursing No Action Required 06/04/23 15:37 06/04/23 16:18 06/04/23 16:30 Temperature Temperature Source Pulse Rate 84 84 Pulse Rate [Apical] Pulse Rate from SpO2 Sensor 84 Respiratory Rate 17 26 H Respiratory Effort / Characteristics Respiratory Depth Respiratory Pattern Blood Pressure 137/84 140/86 Blood Pressure [Right Arm] Blood Pressure Mean 101 104 Blood Pressure Mean [Right Arm] Pulse Oximetry 98 98 97 Oxygen Delivery Method Room Air Room Air Room Air Sepsis Recent Fever Within 48 Hours Sepsis New/Unexplained Change in Mental Status Sepsis Action Taken by Nursing Laboratory Data 06/04/23 15:30 06/04/23 15:30 Lab Results 06/04/23 06/04/23 06/04/23 Range/Units 15:30 15:30 15:30 WBC 7.74 (4.8-10.8) K/ul RBC 3.92 L (4.70-6.10) M/uL Hgb 10.2 L (14.0-18.0) g/dl Hct 31.9 L (42.0-52.0) % MCV 81.4 (80.0-100.0) fL MCH 26.0 (25.0-34.0) pg MCHC 32.0 (32.0-36.0) g/dL RDW Std Deviation 46.1 (36.4-46.3) fL RDW Coeff of Kip 15.5 H (11.5-14.5) % Plt Count 195 (130-400) K/uL MPV 9.7 (9.4-12.4) fL Immature Gran % (Auto) 0.4 % Neut % (Auto) 80.5 % Lymph % (Auto) 13.2 % Parmer % (Auto) 4.5 % Eos % (Auto) 0.8 % Baso % (Auto) 0.6 % Neut # (Auto) 6.23 (1.40-6.50) K/uL Lymph # (Auto) 1.02 L (1.20-3.40) K/uL Parmer # (Auto) 0.35 (0.11-0.59) K/uL Eos # (Auto) 0.06 (0.00-0.50) K/uL Baso # (Auto) 0.05 (0.00-0.20) K/uL Immature Gran # (Auto) 0.03 (0.01-0.20) K/uL ESR (0-15) mm/hr PT 11.6 (9.0-12.0) Seconds INR 1.1 (0.9-1.1) Sodium 137 (136-145) mmol/L Potassium 3.3 L (3.5-5.1) mmol/L Chloride 111 H (98-107) mmol/L Carbon Dioxide 21 (21-32) mmol/L Anion Gap 5 (3-11) BUN 13 (6-23) mg/dl Creatinine 0.62 (0.6-1.4) mg/dl Est Cr Clr Drug Dosing 166.7 ml/min Est GFR ( Amer) 135.0 ml/min Est GFR (Non-Af Amer) 116.5 ml/min BUN/Creatinine Ratio 21.0 H (10-20) Glucose 147 H (70-99(Fasting)) mg/dl Lactate (0.4-2.0) mmol/L Calcium 7.7 L (8.6-10.3) mg/dl Magnesium 1.4 L (1.7-2.4) mg/dl Total Bilirubin 0.3 (0.2-1.0) mg/dl Direct Bilirubin 0.0 (0-0.2) mg/dl AST 9 L (13-39) U/L ALT 8 (7-52) U/L Alkaline Phosphatase 68 (34-104) U/L C-Reactive Protein 2.52 H (0-0.5) mg/dl Total Protein 6.7 (6.0-8.3) gm/dl Albumin 3.4 (3.4-5.0) gm/dl Procalcitonin (0-0.5) ng/ml 06/04/23 06/04/23 06/04/23 Range/Units 15:30 15:30 15:30 WBC (4.8-10.8) K/ul RBC (4.70-6.10) M/uL Hgb (14.0-18.0) g/dl Hct (42.0-52.0) % MCV (80.0-100.0) fL MCH (25.0-34.0) pg MCHC (32.0-36.0) g/dL RDW Std Deviation (36.4-46.3) fL RDW Coeff of Kip (11.5-14.5) % Plt Count (130-400) K/uL MPV (9.4-12.4) fL Immature Gran % (Auto) % Neut % (Auto) % Lymph % (Auto) % Parmer % (Auto) % Eos % (Auto) % Baso % (Auto) % Neut # (Auto) (1.40-6.50) K/uL Lymph # (Auto) (1.20-3.40) K/uL Parmer # (Auto) (0.11-0.59) K/uL Eos # (Auto) (0.00-0.50) K/uL Baso # (Auto) (0.00-0.20) K/uL Immature Gran # (Auto) (0.01-0.20) K/uL ESR 41 H (0-15) mm/hr PT (9.0-12.0) Seconds INR (0.9-1.1) Sodium (136-145) mmol/L Potassium (3.5-5.1) mmol/L Chloride (98-107) mmol/L Carbon Dioxide (21-32) mmol/L Anion Gap (3-11) BUN (6-23) mg/dl Creatinine (0.6-1.4) mg/dl Est Cr Clr Drug Dosing ml/min Est GFR ( Amer) ml/min Est GFR (Non-Af Amer) ml/min BUN/Creatinine Ratio (10-20) Glucose (70-99(Fasting)) mg/dl Lactate 1.5 (0.4-2.0) mmol/L Calcium (8.6-10.3) mg/dl Magnesium (1.7-2.4) mg/dl Total Bilirubin (0.2-1.0) mg/dl Direct Bilirubin (0-0.2) mg/dl AST (13-39) U/L ALT (7-52) U/L Alkaline Phosphatase (34-104) U/L C-Reactive Protein (0-0.5) mg/dl Total Protein (6.0-8.3) gm/dl Albumin (3.4-5.0) gm/dl Procalcitonin < 0.05 (0-0.5) ng/ml Administered Medications Magnesium Sulfate/Dextrose (Magnesium Sulfate / D5w) 1 gm in 100 mls @ 200 mls/hr IV Q30M OTILIA Stop: 06/04/23 17:28 Last Admin: 06/04/23 16:45 Dose: 200 mls/hr Documented By: AUSTEN Discontinued Medications Sodium Chloride (Nss) 500 mls @ 999 mls/hr IV .Q31M OTILIA Stop: 06/04/23 15:45 Last Admin: 06/04/23 15:45 Dose: 999 mls/hr Documented By: ESDRAS Calcium Gluconate () 1,000 mg in 60 mls @ 240 mls/hr IV NOW STA Stop: 06/04/23 16:43 Last Admin: 06/04/23 16:45 Dose: 240 mls/hr Documented By: AUSTEN Cefepime HCl (Maxipime) 2,000 mg in 20 mls @ 5 mls/min IV NOW STA; Protocol Stop: 06/04/23 16:37 Last Admin: 06/04/23 16:43 Dose: 5 mls/min Documented By: AUSTEN Potassium Chloride (Potassium Chloride Crtab 20 Meq Tabcr) 40 meq PO NOW STA Stop: 06/04/23 16:30 Last Admin: 06/04/23 16:45 Dose: 40 meq Documented By: AUSTEN Imaging Data Radiologist's Impression: Chest X-Ray 06/04/23 15:15 SINGLE VIEW CHEST CLINICAL HISTORY: Sepsis. FINDINGS: An AP, portable, upright chest radiograph is compared to study dated 02/03/2023. Correlation is made with chest CT dated 05/13/2019. A right internal jugular central venous infusion port is unchanged in position. The heart is enlarged. The pulmonary vasculature is noncongested. Chronic interstitial thickening similar to previous. Scattered foci of probable scarring are seen throughout both lungs. The lungs and pleural spaces are otherwise clear. No pneumothorax is seen. The skeletal structures are osteopenic. The bony thorax is grossly intact. IMPRESSION: Cardiomegaly with no active disease in the chest. ACT 112: Negative or not required by law. Electronically signed by: Emil Morelos M.D. 06/04/2023 4:16 PM Ankle X-Ray 06/04/23 15:18 RIGHT ANKLE 3 VIEWS CLINICAL HISTORY: Ankle wounds. FINDINGS: 3 views the right ankle are compared to study dated 10/23/2019. The skeletal structures are osteopenic. No fracture is seen. No erosive change is identified. Benign appearing periostitis is seen along the distal tibial shaft. The ankle mortise is intact. Soft tissue edema is present throughout the right leg. Wounds are suggested in the dorsal and medial soft tissues of the distal calf/ankle. No radiodense foreign body is seen. IMPRESSION: 1. No acute bony abnormality is identified. 2. Soft tissue edema with wounds suggested along the dorsal and medial aspect of the distal calf. Electronically signed by: Emil Morelos M.D. 06/04/2023 4:18 PM Ankle X-Ray 06/04/23 15:18 LEFT ANKLE 3 VIEWS CLINICAL HISTORY: Ankle wounds. FINDINGS: 3 views the left ankle are compared to study dated 11/01/2022. The sk eletal structures are osteopenic. No fracture is seen. No erosive change is identified. Benign appearing periostitis is seen along the tibial and fibular shafts. The ankle mortise is intact. Soft tissue edema is present throughout the left leg. Wounds are suggested in the dorsal and medial soft tissues of the distal calf/ankle. No radiodense foreign body is seen. Soft tissue phleboliths are observed. IMPRESSION: 1. No acute bony abnormality is identified. 2. Soft tissue edema with wounds as above. Electronically signed by: Emil Morelos M.D. 06/04/2023 4:22 PM Discharge Plan Visit Data Chief Complaint: Infection Stated Complaint: INFECTION RIGHT FOOT ED Provider: Aleksandr Lagunas Discharge Problem: Venous ulcers of both lower extremities Forms Stand Alone Forms: [facility] Prescriptions Prescriptions: No Action omeprazole 20 mg Capsule,Delayed Release(Dr/Ec) 20 mg PO BID folic acid 1 mg Tablet 1 mg PO QAM albuterol sulfate [Ventolin HFA] 90 mcg/actuation Hfa Aerosol Inhaler 1 puff INHALATION Q6H PRN (Reason: Shortness Of Breath) furosemide 80 mg tablet 80 mg PO BID17 diphenhydramine HCl [Benadryl] 25 mg capsule 25 - 50 mg PO Q6H PRN (Reason: Itching) multivitamin Tablet 1 tab PO QAM gabapentin 600 mg Tablet 600 mg PO TID atorvastatin 10 mg Tablet 10 mg PO QAM spironolactone 50 mg Tablet 50 mg PO BID Rx Instructions: Patient takes second dose at 4:00pm metformin 1,000 mg tablet 1,000 mg PO BID fluticasone propion-salmeterol 500-50 mcg/dose blister with device 1 inh INHALATION BID montelukast 10 mg tablet 10 mg PO DAILY fluoxetine 20 mg capsule 20 mg PO HS buspirone 15 mg tablet 15 mg PO BID Eliquis 5 mg tablet 5 mg PO BID Qty: 60 0RF Lac-Hydrin Five 5 % Lotion 1 applic EXT BID Qty: 226 2RF hydroxyzine HCl 10 mg tablet 10 mg PO Q8H PRN (Reason: Itching) Spiriva Respimat 2.5 mcg/actuation mist 2 inh INHALATION DAILY Dermacerin Cream 1 applic EXT TID PRN (Reason: Skin Irritation) oxycodone-acetaminophen 5-325 mg tablet 1 tab PO Q8H PRN (Reason: pain, severe) Qty: 18 0RF Rx Instructions: 3 times a day clotrimazole 1 % Cream 1 applic EXT BID Qty: 45 0RF Rx Instructions: apply to R hip area twice daily x 2 weeks erythromycin 5 mg/gram (0.5 %) Ointment 1 applic ophthalmic (eye) QID Qty: 3.5 0RF Rx Instructions: Continue four times a day for 2 days ciprofloxacin HCl 500 mg tablet 500 mg PO BID Qty: 28 0RF Rx Instructions: Take twice a day x 14 days Referrals Referrals: Risa Foreman MD [Outside Practitioners] -
[2023-06-04 16:11] LABS: Basophils # (auto) 0.05 K/uL (0.00-0.20); Basophils % (auto) 0.6 %; Eosinophils # (auto) 0.06 K/uL (0.00-0.50); Eosinophils % (auto) 0.8 %; Hematocrit (blood only) 31.9 % (42.0-52.0); Hemoglobin 10.2 g/dl (14.0-18.0); Immature Granulocytes # (auto) 0.03 K/uL (0.01-0.20); Immature Granulocytes % (auto) 0.4 %; Lymphocytes # (auto) 1.02 K/uL (1.20-3.40); Lymphocytes % (auto) 13.2 %; Mean Corpuscular Volume 81.4 fL (80.0-100.0); Mean Platelet Volume 9.7 fL (9.4-12.4); Monocytes # (auto) 0.35 K/uL (0.11-0.59); Monocytes % (auto) 4.5 %; Neutrophils # (auto) 6.23 K/uL (1.40-6.50); Neutrophils % (auto) 80.5 %; Platelet Count 195 K/uL (130-400); RDW Coefficient of Variation 15.5 % (11.5-14.5); RDW Standard Deviation 46.1 fL (36.4-46.3); Red Blood Count 3.92 M/uL (4.70-6.10); White Blood Count 7.74 K/ul (4.8-10.8)
[2023-06-04 16:14] LABS: Albumin Level 3.4 gm/dl (3.4-5.0); Bilirubin,Total 0.3 mg/dl (0.2-1.0); C Reactive Protein 2.52 mg/dl (0-0.5); Calcium 7.7 mg/dl (8.6-10.3); Creatinine Clr Calc Pharmacy 166.7 ml/min; Est GFR (Non-African American) 116.5 ml/min; Magnesium 1.4 mg/dl (1.7-2.4); Potassium 3.3 mmol/L (3.5-5.1); Total Protein 6.7 gm/dl (6.0-8.3)
--- NOTE | 2023-06-04 16:17 | XRay Report ---
SINGLE VIEW CHEST CLINICAL HISTORY: Sepsis. FINDINGS: An AP, portable, upright chest radiograph is compared to study dated 02/03/2023. Correlation is made with chest CT dated 05/13/2019. A right internal jugular central venous infusion port is uncha nged in position. The heart is enlarged. The pulmonary vasculature is noncongested. Chronic interstit ial thickening similar to previous. Scattered foci of probable scarring are seen throughout both lung s. The lungs and pleural spaces are otherwise clear. No pneumothorax is seen. The skeletal structures are osteopenic. The bony thorax is grossly intact. IMPRESSION: Cardiomegaly with no active disease in the chest. ACT 112: Negative or not required by law. Electronically signed by: Emil Morelos M.D. 06/04/2023 4:16 PM
--- NOTE | 2023-06-04 16:19 | XRay Report ---
RIGHT ANKLE 3 VIEWS CLINICAL HISTORY: Ankle wounds. FINDINGS: 3 views the right ankle are compared to study dated 10/23/2019. The skeletal structures are osteopenic. No fracture is seen. No erosive change is identified. Benign appearing periostitis is see n along the distal tibial shaft. The ankle mortise is intact. Soft tissue edema is present throughout the right leg. Wounds are suggested in the dorsal and medial soft tissues of the distal calf/ankle. No radiodense foreign body is seen. IMPRESSION: 1. No acute bony abnormality is identified. 2. Soft tissue edema with wounds suggested along the dorsal and medial aspect of the distal calf. Electronically signed by: Emil Morelos M.D. 06/04/2023 4:18 PM
--- NOTE | 2023-06-04 16:23 | XRay Report ---
LEFT ANKLE 3 VIEWS CLINICAL HISTORY: Ankle wounds. FINDINGS: 3 views the left ankle are compared to study dated 11/01/2022. The skeletal structures are os teopenic. No fracture is seen. No erosive change is identified. Benign appearing periostitis is seen along the tibial and fibular shafts. The ankle mortise is intact. Soft tissue edema is present throug hout the left leg. Wounds are suggested in the dorsal and medial soft tissues of the distal calf/ankl e. No radiodense foreign body is seen. Soft tissue phleboliths are observed. IMPRESSION: 1. No acute bony abnormality is identified. 2. Soft tissue edema with wounds as above. Electronically signed by: Emil Morelos M.D. 06/04/2023 4:22 PM
[2023-06-04 16:25] LABS: INR 1.1 (0.9-1.1); Prothrombin Time 11.6 Seconds (9.0-12.0)
[2023-06-04] MEDS ORDERED: POTASSIUM CHLORIDE CRTAB 20 MEQ TABCR PO STA (16:29)
[2023-06-04] MEDS ORDERED: CALCIUM GLUCONATE 1,000 MG/60 ML BAG IV STA (16:29)
[2023-06-04] MEDS ORDERED: CEFEPIME 2,000 MG/20 ML VIAL IV STA (16:34)
[2023-06-04] MEDS ORDERED: VANCOMYCIN CONSULT ACTIVE PRN (16:34)
[2023-06-04] MEDS ORDERED: VANCOMYCIN HCL 2,000 MG in SODIUM CHLORIDE 0.9% 500 ML IV ONE (16:34)
[2023-06-04] MEDS: MAGNESIUM SULFATE / D5W 1 GM/100 ML BAG IV SCH ×2 (16:45→17:46)
--- NOTE | 2023-06-04 17:16 | History & Physical Report ---
Date of Service June 04, 2023 Assessment & Plan (1) Chronic wound: (2) Venous ulcers of both lower extremities: (3) Tobacco abuse: (4) COPD (chronic obstructive pulmonary disease): (5) Depression: (6) Type 2 diabetes mellitus: Plan Pt with chronic venous ulcers bilateral lower extremities presents with purulent yellow drainage and tenderness. Left ankle x-ray without osteomyelitis. Started on cefepime plus vancomycin and will await wound culture results including MRSA. Incidentally found hypomagnesemia 0.4, hyper-K 3.3. Noninsulin-dependent diabetic likely contributing to delayed wound healing. History of DVT on Eliquis and current smoker with COPD. WOCN consulted based on culture results re-involve infectious disease if necessary. Chronic wound: Venous ulcers of both lower extremities: Peripheral neuropathy: Acute uncontrolled Chronic recent venous ulcers presents now with purulent yellow drainage and tenderness Left ankle x-ray without osteomyelitis MRSA swab ordered Recently changed from gabapentin to Lyrica; continue WOCN consulted Started on cefepime plus Vanco; continue and await wound culture results based on culture results reinvolve infectious disease if necessary. Hypomagnesemia: Acute uncontrolled Serum mag 1.4 replaced with 2 g in ED; recheck in a.m. No ectopy noted on ECG Hypokalemia: Acute uncontrolled Serum potassium 3.3; replace with 40 mEq p.o. KCl in ED Recheck potassium level via BMP in a.m. Diabetes mellitus type 2: Chronic stable Last A1c 05/19/2023; 6.7 Takes metformin; hold while inpatient and placed on SSI ACHS History of DVT: Chronic stable Takes Eliquis; continue HLD: Chronic stable Takes atorvastatin; continue Last lipid panel 09/12/2022; TG 197, LDL 89, HDL 35 Tobacco abuse: Acute uncontrolled Smokes 1/2 pack/day cigarettes No interest in smoking cessation at this time Nicotine patch ordered COPD: Chronic stable takes fluticasone and Spiriva; continue Depression: Chronic stable Takes fluoxetine and BuSpar; continue Disposition: PCP: Dr. Martines CODE STATUS: Full code VTE prophylaxis: On Eliquis I spent a total of 87 minutes coordinating, documenting, and providing care for this patient excluding time spent in the performance of separately billed services. All of the aforementioned completed while collaborating with the assigned attending physician for a full treatment plan. Please see their addendum for further details. History of Present Illness Chief Complaint: left lower extremity pain/venous ulcers Primary Care Provider: Jamie Martines MD Pt has chronic venous ulcer Last week he stated that his left ankle wound starte d to become more painful and opened up with yellow drainage. Reports waking up with feeling hot and cold with decreased appetite. Documentable wounds on lower third of both anterior ankles with tenderness over surrounding skin of right lower leg and medial foot. He had a multiple recent inpatient hospitalizations including 10/29-11/03, 01/12-01/18, 02/03-02/10 for similar presentations. No leukocytosis, hypomagnesemia, hypo kalemic 3.3, no lactate elevation. Hgb 10.2, baseline 12-13, Mg+ 1.4, CP chronic elevation of 2.5 R ankle xray performed: 1. No acute bony abnormality is identified. 2. Soft tissue edema with wounds suggested along the dorsal and medial aspect of the distal calf. Left ankle xray performed: 1. No acute bony abnormality is identified. No osteomyelitis noted on either wound. Will treat venous ulcers with antibiotics, WOCN, pain control, and electrolyte replacement. PMH includes history of DVT (on Eliquis), HLD, current smoker, COPD, depression and non-insulin dependent diabetes mellitus type 2. Had a lengthy conversation with him regarding delayed wound healing related to continuation of tobacco use. For now, ED completed work-up for infection; patient does not appear toxic. Pt with chronic venous ulcers bilateral lower extremities presents with purulent yellow drainage and tenderness. Left ankle x-ray without osteomyelitis. Started on cefepime plus vancomycin and will await wound culture results including MRSA. Incidentally found hypomagnesemia 0.4, hyper-K 3.3. Noninsulin-dependent diabetic likely contributing to delayed wound healing. History of DVT on Eliquis and current smoker with COPD. WOCN consulted based on culture results re-involve infectious disease if necessary. Patient will be admitted for further evaluation and management. Please see A/P for further details. Allergies Allergy/AdvReac Type Severity Reaction Status Date / Time peas Allergy Severe Anaphylaxis Verified 06/04/23 18:32 tuna oil Allergy Severe Anaphylaxis Verified 06/04/23 18:32 to "tuna" sulfamethoxazole Allergy Intermediate hives Verified 06/04/23 18:32 trimethoprim Allergy Intermediate hives Verified 06/04/23 18:32 Home Medications Medication Instructions Recorded Confirmed Type albuterol sulfate 90 mcg/actuation 1 puff inhalation Q6H PRN 05/09/18 06/04/23 History aerosol inhaler (Ventolin HFA) Shortness Of Breath folic acid 1 mg tablet 1 mg PO QAM 05/09/18 06/04/23 History omeprazole 20 mg capsule,delayed 20 mg PO BID 05/09/18 06/04/23 History release diphenhydramine HCl 25 mg capsule 25 mg PO Q6H PRN Itching 10/23/19 06/04/23 History (Benadryl) furosemide 80 mg tablet 80 mg PO BID17 10/23/19 06/04/23 History atorvastatin 10 mg tablet 40 mg PO QAM 06/05/20 06/04/23 History multivitamin 1 tab PO QAM 06/05/20 06/04/23 History spironolactone 50 mg tablet 100 mg PO QAM 06/05/20 06/04/23 History buspirone 15 mg tablet 15 mg PO BID 10/02/22 06/04/23 History fluoxetine 20 mg capsule 20 mg PO HS 10/02/22 06/04/23 History fluticasone 500 mcg-salmeterol 50 1 inh inhalation BID 10/02/22 06/04/23 History mcg/dose blistr powdr for inhalation metformin 1,000 mg tablet 1,000 mg PO BID 10/02/22 06/04/23 History montelukast 10 mg tablet 10 mg PO DAILY 10/02/22 06/04/23 History apixaban 5 mg tablet (Eliquis) 5 mg PO BID #60 tabs 10/04/22 06/04/23 Rx ammonium lactate 5 % lotion 1 applic EXT BID #226 grams 10/08/22 06/04/23 Rx (Lac-Hydrin Five) hydroxyzine HCl 10 mg tablet 10 mg PO Q8H PRN Itching 10/29/22 06/04/23 History tiotropium bromide 2.5 2 inh inhalation DAILY 10/29/22 06/04/23 History mcg/actuation mist for inhalation (Spiriva Respimat) white petrolatum-mineral oil 1 applic EXT TID PRN Skin 10/29/22 06/04/23 History topical cream (Dermacerin topical Irritation cream) oxycodone-acetaminophen 5 mg-325 1 tab PO Q8H PRN pain, severe #18 01/17/23 06/04/23 Rx mg tablet tabs clotrimazole 1 % topical cream 1 applic EXT BID #45 grams 01/18/23 06/04/23 Rx erythromycin 5 mg/gram (0.5 %) eye 1 applic ophthalmic (eye) QID #3.5 02/10/23 06/04/23 Rx ointment grams pregabalin 150 mg capsule 150 mg PO BID 06/04/23 06/04/23 History Past Med/Surg History Medical History (Updated 06/04/23 @ 20:24 by YNES Ny) Anxiety and depression Asthma USED RESCUE INHALER TODAY Blood clotting disorder ? NAME Cellulitis BILAT LEGS (WRAPS LEGS/DRY CLOTH) CURRENTLY HAS SOME OPEN WOUNDS>GOES TO WOUND CLINIC[facility] [place] Chronic deep vein thrombosis (DVT) 2017 (H[facility]PITALIZED AT [facility]) Chronic narcotic use Chronic ulcer of lower extremity RT LEG ONLY OPEN WOUND AT THIS TIME Chronic venous stasis dermatitis of both lower extremities Chronic wound Cirrhosis Diabetes mellitus, type 2 GERD (gastroesophageal reflux disease) History of ETOH abuse QUIT 2018 HTN (hypertension) Hyperlipidemia Pulmonary embolism 13 YEARS AGO ? DETAILS Pulmonary nodule CT chest 04/12/18 - 4 mm RUL nodule, f/u 12 months Tobacco abuse Type 2 diabetes mellitus Surgical History History of anesthesia reaction WITH A-PORT INSERTION, WOKE UP IN MIDDLE OF PROCEDURE History of vascular access device APORT IN RT CHEST (IN PLACE) [place] teeth removed Family History Father ETOH abuse Cirrhosis Mother Hypercoagulable state Prothrombin Factor II Mutation, 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, boderline hyperhomocystemia Social History Smoking Status: Current every day smoker Tobacco Type: Cigarettes Cigarettes Per Day: 3; Second Hand Exposure: No; Do You Dip or Chew Tobacco: No; Hx Alcohol Use: No Hx Substance Use: No Preferred Language: Divehi Communication Ability: Effective Visual Impairment: No Limitations Hearing Ability: Normal Program Administrator Required: No Beliefs That Will Affect Care: None marital status: Current Living Situation: Alone How many Children do You have: 0 Feels Safe at Home: Yes Assistive Devices: None Review of Systems Review of Systems: Neuro: (-) Falls, trauma, slurred speech HEENT: (-) SCOTT, dizziness, dysphagia, visual or auditory changes CV: (-) CP, palpitations, swelling Resp: (-) SOB GI: (-) appetite changes, N/V/D, bowel changes : (-) urinary changes Skin: (-) rashes Psych: (-) anxiety, depression Physical Exam Physical Exam: See Dr. Herr addendum for physical examination Results & Data Results & Data Vital Signs (Past 12 Hours) Vital Signs Temp Pulse Pulse Resp BP BP Pulse Ox 06/04/23 16:30 84 26 H 140/86 97 06/04/23 16:18 84 17 137/84 98 06/04/23 15:37 98 06/04/23 15:37 86 20 145/94 H 98 06/04/23 15:23 101 H 06/04/23 15:00 36.7 C 95 H 20 135/84 98 O2 Del Method 06/04/23 16:30 Room Air 06/04/23 16:18 Room Air 06/04/23 15:37 Room Air 06/04/23 15:37 Room Air 06/04/23 15:23 06/04/23 15:00 Room Air Laboratory Results Short CBC 06/04/23 Range/Units 15:30 WBC 7.74 (4.8-10.8) K/ul Hgb 10.2 L (14.0-18.0) g/dl Hct 31.9 L (42.0-52.0) % Plt Count 195 (130-400) K/uL BMP 06/04/23 15:30 Sodium 137 Potassium 3.3 L Chloride 111 H Carbon Dioxide 21 BUN 13 Creatinine 0.62 Glucose 147 H Calcium 7.7 L Liver Function 06/04/23 Range/Units 15:30 Total Bilirubin 0.3 (0.2-1.0) mg/dl Direct Bilirubin 0.0 (0-0.2) mg/dl AST 9 L (13-39) U/L ALT 8 (7-52) U/L Alkaline Phosphatase 68 (34-104) U/L Albumin 3.4 (3.4-5.0) gm/dl Diagnostic Findings Chest X-Ray 06/04/23 15:15 SINGLE VIEW CHEST CLINICAL HISTORY: Sepsis. FINDINGS: An AP, portable, upright chest radiograph is compared to study dated 02/03/2023. Correlation is made with chest CT dated 05/13/2019. A right internal jugular central venous infusion port is unchanged in position. The heart is enlarged. The pulmonary vasculature is noncongested. Chronic interstitial thickening similar to previous. Scattered foci of probable scarring are seen throughout both lungs. The lungs and pleural spaces are otherwise clear. No pneumothorax is seen. The skeletal structures are osteopenic. The bony thorax is grossly intact. IMPRESSION: Cardiomegaly with no active disease in the chest. ACT 112: Negative or not required by law. Electronically signed by: Emil Morelos M.D. 06/04/2023 4:16 PM Ankle X-Ray 06/04/23 15:18 RIGHT ANKLE 3 VIEWS CLINICAL HISTORY: Ankle wounds. FINDINGS: 3 views the right ankle are compared to study dated 10/23/2019. The skeletal structures are osteopenic. No fracture is seen. No erosive change is identified. Benign appearing periostitis is seen along the distal tibial shaft. The ankle mortise is intact. Soft tissue edema is present throughout the right leg. Wounds are suggested in the dorsal and medial soft tissues of the distal calf/ankle. No radiodense foreign body is seen. IMPRESSION: 1. No acute bony abnormality is identified. 2. Soft tissue edema with wounds suggested along the dorsal and medial aspect of the distal calf. Electronically signed by: Emil Morelos M.D. 06/04/2023 4:18 PM Ankle X-Ray 06/04/23 15:18 LEFT ANKLE 3 VIEWS CLINICAL HISTORY: Ankle wounds. FINDINGS: 3 views the left ankle are compared to study dated 11/01/2022. The skeletal structures are osteopenic. No fracture is seen. No erosive change is identified. Benign appearing periostitis is seen along the tibial and fibular shafts. The ankle mortise is intact. Soft tissue edema is present throughout the left leg. Wounds are suggested in the dorsal and medial soft tissues of the distal calf/ankle. No radiodense foreign body is seen. Soft tissue phleboliths are observed. IMPRESSION: 1. No acute bony abnormality is identified. 2. Soft tissue edema with wounds as above. Electronically signed by: Emil Morelos M.D. 06/04/2023 4:22 PM Code Status & VTE Plan Code Status Full Code in the event of cardiac or respiratory arrest Supervising Physician Co-Signing Physician Notes Patient seen and examined. Reports worsening of chronic leg wounds especially in the right foot with increased pain, slough and drainage over the past few days. Denied fever, chills, nausea or vomiting. Exam notable for wounds on lower third of both legs, tenderness over surrounding skin of right leg/foot, chronic skin changes with hyperpigmented/hypopigmented areas Labs notable for normal WBC, hemoglobin of 10.2 [was 13 in January], Potassium of 3.3, magnesium of 1.4, CRP of 2.52 [chronically elevated] X-rays of the ankle was noted soft tissue edema with wounds, no acute bony abnormality noted Continue IV Vanco and cefepime for now Follow-up infectious work-ups and wound culture sent by ER Wound care consult Counseled patient regarding smoking cessation. Nicotine replacement therapy for now Got repletion for hypokalemia. 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
[2023-06-04] MEDS ORDERED: ACETAMINOPHEN 325 MG TAB PO PRN (17:17)
[2023-06-04] MEDS ORDERED: ALUMINUM/MAGNESIUM SUSP 30 ML UDC PO PRN (17:17)
[2023-06-04 17:46] LABS: Appearance Urine Cloudy (Clear); Bacteria Urine Automated Negative (Negative); Bilirubin Urine Negative (Negative); Blood Urine Negative (Negative); Cast Urine Automated 0 /lpf (0-5); Color Urine Yellow; Glucose Urine UA Negative (Negative); Ketones Urine Negative (Negative); Leukocyte Esterase Urine Negative (Negative); Nitrite Urine Negative (Negative); Protein Urine Negative (Negative); RBC Urine Automated 0-4 /hpf (0-4); Urobilinogen Urine Negative (Negative); WBC Urine Automated 0 /hpf (0-5); pH Urine 6.5 (4.5-7.5)
[2023-06-04] MEDS: NICOTINE 14 MG/24 HR PATCH TD SCH (17:47)
[2023-06-04] MEDS ORDERED: ACETAMINOPHEN 500 MG TAB ONE (17:53)
[2023-06-04] MEDS ORDERED: ACETAMINOPHEN 325 MG TAB ONE (17:55)
[2023-06-04] MEDS ORDERED: EUCERIN CR 120 GM JAR EXT PRN (18:03)
[2023-06-04] MEDS: oxyCODONE/ACETAMINOPHEN 5mg/325mg TAB PO PRN (18:28)
[2023-06-04] MEDS: diphenhydrAMINE Capsule 25 MG CAP PO PRN (18:28)
[2023-06-04] MEDS ORDERED: HEPARIN 100 UNIT/ML 5ML FLUSH ONE (18:40)
[2023-06-04 20:25] LABS: BUN Creatinine Ratio 16.7 (10-20); Calcium 9.3 mg/dl (8.6-10.3); Creatinine Clr Calc Pharmacy 132.5 ml/min; Est GFR (African American) 122.8 ml/min; Potassium 3.9 mmol/L (3.5-5.1)
[2023-06-04] MEDS ORDERED: CARBOHYDRATES FOR HYPOGLYCEMIA PO PRN (20:50)
[2023-06-04] MEDS ORDERED: GLUCOSE 40% GEL 15 GM TUBE PO PRN (20:50)
[2023-06-04] MEDS ORDERED: DEXTROSE 50% 50 ML SYRINGE IV PRN (20:50)
[2023-06-04] MEDS ORDERED: GLUCOSE 10 TAB/TUBE PO PRN (20:50)
[2023-06-04] MEDS ORDERED: GLUCAGON FOR INJ 1 MG VIAL SQ PRN (20:50)
[2023-06-04] MEDS: AMMONIUM LACTATE 12% LOTION 225 GM BTL EXT SCH (21:32)
[2023-06-04] MEDS: APIXABAN 5 MG TABLET PO SCH (21:33)
[2023-06-04] MEDS: PANTOprazole 40 MG TAB PO SCH (21:33)
[2023-06-04] MEDS: CLOTRIMAZOLE 1% CR 15 GM TUBE EXT SCH (21:33)
[2023-06-04] MEDS: FLUoxetine HCL 20 MG CAP PO SCH (21:34)
[2023-06-04] MEDS: busPIRone 15 MG TAB PO SCH (21:34)
[2023-06-04] MEDS: FLUTICASONE/VILANTEROL 200/25MCG 14 PUFFS/INHALER INH SCH (22:31)
[2023-06-04] MEDS: INSULIN ASPART PER UNIT CHARGE SC SCH (22:43)
[2023-06-04] MEDS: PREGABALIN 150 MG CAP PO SCH (22:46)
[2023-06-05] MEDS: oxyCODONE/ACETAMINOPHEN 5mg/325mg TAB PO PRN ×3 (02:01→20:02)
[2023-06-05] MEDS: VANCOMYCIN HCL 1,500 MG in SODIUM CHLORIDE 0.9% 500 ML IV SCH ×2 (02:02→13:07)
[2023-06-05] MEDS: CEFEPIME 2,000 MG in SYRINGE 0 ML IV SCH ×2 (05:55→16:16)
[2023-06-05 08:05] LABS: Hematocrit (blood only) 35.8 % (42.0-52.0); Hemoglobin 11.5 g/dl (14.0-18.0); Mean Corpuscular Hgb Conc 32.1 g/dL (32.0-36.0); Mean Corpuscular Volume 80.8 fL (80.0-100.0); Platelet Count 202 K/uL (130-400); RDW Coefficient of Variation 15.5 % (11.5-14.5); RDW Standard Deviation 45.8 fL (36.4-46.3); Red Blood Count 4.43 M/uL (4.70-6.10); White Blood Count 4.58 K/ul (4.8-10.8)
[2023-06-05 08:34] LABS: Albumin Level 3.7 gm/dl (3.4-5.0); BUN Creatinine Ratio 17.8 (10-20); Bilirubin,Total 0.4 mg/dl (0.2-1.0); Calcium 8.7 mg/dl (8.6-10.3); Chol HDL Ratio 4.2 (0-5); Creatinine Clr Calc Pharmacy 141.7 ml/min; Est GFR (African American) 126.2 ml/min; Est GFR (Non-African American) 108.9 ml/min; Globulin 3.7 gm/dl (2.5-4.0); Magnesium 2.1 mg/dl (1.7-2.4); Potassium 4.2 mmol/L (3.5-5.1); Total Protein 7.4 gm/dl (6.0-8.3)
--- NOTE | 2023-06-05 08:59 | Pharmacy Report ---
Pharmacy PK ABX Note - Date of Service June 05, 2023 - Assessment and Plan Assessment 48 year old M receiving vancomycin and cefepime for treatment of a chronic wound infection w/ history of MRSA and Pseudomonas aeruginosa. Pertinent PMH includes history of chronic venous ulcers of BLE, peripheral neuropathy, T2DM, and history of DVT. Pertinent microbiologic data includes: Blood cultures x 2 (pending), left/right leg cultures (pending). Day # 2 of antimicrobial therapy. Plan Vancomycin * Loading dose: 2000 mg IV x 1 * Maintenance dose: 1500 mg IV every 12 hours * Regimen is predicted to achieve target AUC/CONNIE of 400-600 mg/L.hr * Random level ordered for: 06/07/23 Cefepime * 2 g IV q12h - no concern of osteomyelitis at this time, dosing appropriate. May consider increasing to q8h if no improvement. Pharmacy will continue to follow and will adjust dose/frequency as necessary. Thank you. Pharmacy has transitioned to AUC monitoring for vancomycin. AUC/CONNIE is the preferred PK/PD target and is associated with decreased risk of nephrotoxicity compared to traditional trough targets.
[2023-06-05] MEDS: AMMONIUM LACTATE 12% LOTION 225 GM BTL EXT SCH ×2 (09:23→20:02)
[2023-06-05] MEDS: NICOTINE 14 MG/24 HR PATCH TD SCH (09:23)
[2023-06-05] MEDS: FLUTICASONE/VILANTEROL 200/25MCG 14 PUFFS/INHALER INH SCH (09:23)
[2023-06-05] MEDS: APIXABAN 5 MG TABLET PO SCH ×2 (09:24→20:03)
[2023-06-05] MEDS: CLOTRIMAZOLE 1% CR 15 GM TUBE EXT SCH ×2 (09:24→20:02)
[2023-06-05] MEDS: busPIRone 15 MG TAB PO SCH ×2 (09:24→20:03)
[2023-06-05] MEDS: LANTUS PER UNIT CHARGE SQ SCH ×2 (09:24→21:28)
[2023-06-05] MEDS: INSULIN ASPART PER UNIT CHARGE SC SCH ×4 (09:24→21:28)
[2023-06-05] MEDS: PANTOprazole 40 MG TAB PO SCH ×2 (09:24→20:03)
[2023-06-05] MEDS: PREGABALIN 150 MG CAP PO SCH ×2 (09:25→20:02)
[2023-06-05] MEDS: MONTELUKAST SODIUM 10 MG TABLET PO SCH (11:04)
[2023-06-05] MEDS: UMECLIDINIUM BROMIDE 62.5MCG/BLISTER 7 PUFFS/INHALER INH SCH (11:04)
[2023-06-05] MEDS: ATORVASTATIN 40 MG TAB PO SCH (11:04)
[2023-06-05] MEDS: SPIRONOLACTONE 100 MG TAB PO SCH (11:04)
[2023-06-05] MEDS: FOLIC ACID 1 MG TAB PO SCH (11:04)
[2023-06-05] MEDS: FUROSEMIDE 80 MG TAB PO SCH ×2 (11:04→16:16)
[2023-06-05] MEDS: diphenhydrAMINE Capsule 25 MG CAP PO PRN ×2 (12:14→20:02)
--- NOTE | 2023-06-05 12:18 | Electrocardiogram Report ---
Test Reason : Blood Pressure : / mmHG Vent. Rate : 084 BPM Atrial Rate : 084 BPM P-R Int : 174 ms QRS Dur : 090 ms QT Int : 364 ms P-R-T Axes : 062 016 044 degrees QTc Int : 430 ms Normal sinus rhythm Normal ECG When compared with ECG of 03-FEB-2023 15:22, Borderline criteria for Anterior infarct are no longer Present Confirmed by Jamaal Joseph ([id number]) on 06/05/2023 12:17:50 PM Referred By: REFERRED SELF Confirmed By:Jamaal Joseph
--- NOTE | 2023-06-05 14:33 | Hospitalist Progress Note ---
Date of Service June 05, 2023 Assessment & Plan (1) Chronic wound: (2) Venous ulcers of both lower extremities: (3) Tobacco abuse: (4) COPD (chronic obstructive pulmonary disease): (5) Depression: (6) Type 2 diabetes mellitus: Plan Pt is 48 yr male with multiple hospitalization, H/O Chronic venous ulcers bilateral lower extremities presents with purulent yellow drainage and tenderness. History of DVT on Eliquis and current smoker with COPD. H/O DM II. WOCN consulted based on culture results re-involve infectious disease if necessary. Chronic B/L LE infected wounds: Venous ulcers of both lower extremities: Peripheral neuropathy: Chronic recent venous ulcers presents now with purulent yellow drainage and tenderness --Left Ankle X ray:No acute bony abnormality is identified. Soft tissue edema with wounds as above. --Right Ankle X ray:1. No acute bony abnormality is identified. Soft tissue edema with wounds suggested along the dorsal and medial aspect of the distal calf. -- Blood cultures pending Continue vancomycin, cefepime Continue wound care Pain control as needed On Lyrica for Neuropathy Will consider infectious disease recommendations if needed Hypomagnesemia Hypokalemia Replete electrolytes as needed Monitor DM II Chronic stable Last A1c 05/19/2023; 6.7 Hold metformin Utilize Insulin while hospitalized Monitor BGs H/O DVT: Chronic stable Continue Eliquis HLD: Continue Atorvastatin Tobacco abuse: Smokes 1/2 pack/day cigarettes Patient states that he is trying to quit smoking Counseled to quit smoking Nicotine patch COPD: Continue home inhalers Depression: Continue fluoxetine, BuSpar DVT Px: on Eliquis CODE STATUS: Full code Admission and Anticipated Discharge Date Admission Date: June 04, 2023 Subjective Patient is seen and examined at bedside States having bilateral leg wound pain Offers no other complaints Denies any chest pain, dyspnea, dizziness, nausea, vomiting, abdominal pain No other complaints Review of Systems Review of Systems: All systems reviewed & are unremarkable except as noted in Subjective Physical Exam Physical Exam: Physical Exam: Vitals signs as noted above General Appearance:Moderately built and nourished, no apparent distress Head: normocephalic, Atraumatic Eyes: normal inspection, EOMI Neck: supple, Trachea midline Respiratory/Chest: Decreased coarse breath sounds, No accessory muscle use Cardiovascular: S1, S2, No murmur Abdomen/GI:Soft, Non tender, Bowel sounds present Extremities/Musculoskeletal:normal inspection, B/L LE leg wounds in dressing, Trace edema, chronic venous stasis changes Neurologic/Psych:AAOX3, grossly no focal neurological deficits Skin: normal color, warm Results & Data Results & Data Vital Signs (Past 12 Hours) Vital Signs Temp Pulse Pulse Resp BP Pulse Ox O2 Del Method 06/05/23 11:50 36.6 C 69 16 113/69 95 Room Air 06/05/23 08:05 36.2 C L 68 16 115/72 95 Room Air 06/05/23 08:04 71 06/05/23 04:11 36.7 C 80 18 114/72 96 Room Air Laboratory Results Short CBC 06/04/23 06/05/23 Range/Units 15:30 07:21 WBC 7.74 4.58 L (4.8-10.8) K/ul Hgb 10.2 L 11.5 L (14.0-18.0) g/dl Hct 31.9 L 35.8 L (42.0-52.0) % Plt Count 195 202 (130-400) K/uL BMP 06/04/23 06/04/23 06/05/23 15:30 19:51 07:21 Sodium 137 136 137 Potassium 3.3 L 3.9 4.2 Chloride 111 H 106 108 H Carbon Dioxide 21 26 26 BUN 13 13 13 Creatinine 0.62 0.78 0.73 Glucose 147 H 164 H 161 H Calcium 7.7 L 9.3 8.7 Liver Function 06/04/23 06/05/23 Range/Units 15:30 07:21 Total Bilirubin 0.3 0.4 (0.2-1.0) mg/dl Direct Bilirubin 0.0 (0-0.2) mg/dl AST 9 L 10 L (13-39) U/L ALT 8 8 (7-52) U/L Alkaline Phosphatase 68 72 (34-104) U/L Albumin 3.4 3.7 (3.4-5.0) gm/dl Urine 06/04/23 Range/Units 16:50 Urine Color Yellow Urine Appearance Cloudy A (Clear) Urine pH 6.5 (4.5-7.5) Ur Specific [place] 1.010 (1.000-1.030) Urine Protein Negative (Negative) Urine Glucose (UA) Negative (Negative) (4) COPD (chronic obstructive pulmonary disease) COPD type: unspecified COPD Qualified Code(s): J44.9 - Chronic obstructive pulmonary disease, unspecified (6) Type 2 diabetes mellitus 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
[2023-06-05] MEDS: MoRPHine SULFATE 2 MG/ML CARP IV PRN ×2 (15:09→22:31)
[2023-06-05] MEDS: MELATONIN 3 MG TAB PO PRN (20:02)
[2023-06-05] MEDS: FLUoxetine HCL 20 MG CAP PO SCH (20:03)
[2023-06-06] MEDS: VANCOMYCIN HCL 1,500 MG in SODIUM CHLORIDE 0.9% 500 ML IV SCH ×2 (02:06→12:48)
[2023-06-06] MEDS: oxyCODONE/ACETAMINOPHEN 5mg/325mg TAB PO PRN ×2 (05:11→12:45)
[2023-06-06] MEDS: CEFEPIME 2,000 MG in SYRINGE 0 ML IV SCH ×2 (05:11→16:15)
[2023-06-06 06:23] LABS: Hematocrit (blood only) 37.6 % (42.0-52.0); Hemoglobin 12.1 g/dl (14.0-18.0); Mean Corpuscular Hgb Conc 32.2 g/dL (32.0-36.0); Mean Corpuscular Volume 80.7 fL (80.0-100.0); Mean Platelet Volume 9.6 fL (9.4-12.4); Platelet Count 223 K/uL (130-400); RDW Coefficient of Variation 15.4 % (11.5-14.5); RDW Standard Deviation 45.2 fL (36.4-46.3); Red Blood Count 4.66 M/uL (4.70-6.10); White Blood Count 5.35 K/ul (4.8-10.8)
[2023-06-06 07:03] LABS: BUN Creatinine Ratio 26.1 (10-20); Calcium 8.9 mg/dl (8.6-10.3); Est GFR (African American) 116.9 ml/min; Est GFR (Non-African American) 100.9 ml/min; Potassium 3.9 mmol/L (3.5-5.1)
[2023-06-06] MEDS: PREGABALIN 150 MG CAP PO SCH ×2 (08:45→20:15)
[2023-06-06] MEDS: HEPARIN 100 UNIT/ML 5ML FLUSH FLUSH PRN ×2 (08:45→16:15)
[2023-06-06] MEDS: MoRPHine SULFATE 2 MG/ML CARP IV PRN ×3 (08:45→20:44)
[2023-06-06] MEDS: CLOTRIMAZOLE 1% CR 15 GM TUBE EXT SCH ×2 (08:47→20:15)
[2023-06-06] MEDS: FLUTICASONE/VILANTEROL 200/25MCG 14 PUFFS/INHALER INH SCH (08:47)
[2023-06-06] MEDS: LANTUS PER UNIT CHARGE SQ SCH ×2 (08:47→20:15)
[2023-06-06] MEDS: INSULIN ASPART PER UNIT CHARGE SC SCH ×4 (08:47→20:15)
[2023-06-06] MEDS: UMECLIDINIUM BROMIDE 62.5MCG/BLISTER 7 PUFFS/INHALER INH SCH (08:47)
[2023-06-06] MEDS: AMMONIUM LACTATE 12% LOTION 225 GM BTL EXT SCH ×2 (08:48→20:16)
[2023-06-06] MEDS: APIXABAN 5 MG TABLET PO SCH ×2 (08:48→20:16)
[2023-06-06] MEDS: NICOTINE 14 MG/24 HR PATCH TD SCH (08:48)
[2023-06-06] MEDS: busPIRone 15 MG TAB PO SCH ×2 (08:48→20:18)
[2023-06-06] MEDS: PANTOprazole 40 MG TAB PO SCH ×2 (08:48→20:18)
[2023-06-06] MEDS: FUROSEMIDE 80 MG TAB PO SCH ×2 (08:49→16:15)
[2023-06-06] MEDS: SPIRONOLACTONE 100 MG TAB PO SCH (08:49)
[2023-06-06] MEDS: FOLIC ACID 1 MG TAB PO SCH (08:49)
[2023-06-06] MEDS: diphenhydrAMINE Capsule 25 MG CAP PO PRN (08:49)
[2023-06-06] MEDS: ATORVASTATIN 40 MG TAB PO SCH (08:49)
[2023-06-06] MEDS: MONTELUKAST SODIUM 10 MG TABLET PO SCH (08:49)
--- NOTE | 2023-06-06 16:31 | Hospitalist Progress Note ---
Date of Service June 06, 2023 Assessment & Plan (1) Chronic wound: (2) Venous ulcers of both lower extremities: (3) Tobacco abuse: (4) COPD (chronic obstructive pulmonary disease): (5) Depression: (6) Type 2 diabetes mellitus: Plan Pt is 48 yr male with multiple hospitalization, H/O Chronic venous ulcers bilateral lower extremities presents with purulent yellow drainage and tenderness. History of DVT on Eliquis and current smoker with COPD. H/O DM II. WOCN consulted based on culture results re-involve infectious disease if necessary. Chronic B/L LE infected wounds: Venous ulcers of both lower extremities: Peripheral neuropathy: Chronic recent venous ulcers presents now with purulent yellow drainage and tenderness --Left Ankle X ray:No acute bony abnormality is identified. Soft tissue edema with wounds as above. --Right Ankle X ray:1. No acute bony abnormality is identified. Soft tissue edema with wounds suggested along the dorsal and medial aspect of the distal calf. -- Blood cultures negative to date Wound culture pending Continue vancomycin, cefepime for now Continue wound care Pain control as needed On Lyrica for Neuropathy Continue current management Hypomagnesemia Hypokalemia Replete electrolytes as needed Monitor DM II Chronic stable Last A1c 05/19/2023; 6.7 Hold metformin Utilize Insulin while hospitalized Monitor BGs H/O DVT: Chronic stable Continue Eliquis HLD: Continue Atorvastatin Tobacco abuse: Smokes 1/2 pack/day cigarettes Patient states that he is trying to quit smoking Counseled to quit smoking Nicotine patch COPD: Continue home inhalers Depression: Continue fluoxetine, BuSpar DVT Px: on Eliquis CODE STATUS: Full code Admission and Anticipated Discharge Date Admission Date: June 04, 2023 Subjective Patient is seen and examined at bedside States feeling tired Leg pain is better No new complaints Denies any chest pain, dyspnea, dizziness, nausea, vomiting, abdominal pain Review of Systems Review of Systems: All systems reviewed & are unremarkable except as noted in Subjective Physical Exam Physical Exam: Physical Exam: Vitals signs as noted above General Appearance:Moderately built and nourished, no apparent distress Head: normocephalic, Atraumatic Eyes: normal inspection, EOMI Neck: supple, Trachea midline Respiratory/Chest: Decreased coarse breath sounds, No accessory muscle use Cardiovascular: S1, S2, No murmur Abdomen/GI:Soft, Non tender, Bowel sounds present Extremities/Musculoskeletal:normal inspection, B/L LE leg wounds in dressing, Trace edema, chronic venous stasis changes Neurologic/Psych:AAOX3, grossly no focal neurological deficits Skin: normal color, warm Results & Data Results & Data Vital Signs (Past 12 Hours) Vital Signs Temp Pulse Pulse Resp BP Pulse Ox O2 Del Method 06/06/23 16:09 80 06/06/23 15:42 36.4 C L 79 18 122/74 94 Room Air 06/06/23 12:14 Room Air 06/06/23 11:51 36.5 C 81 18 117/73 94 Room Air 06/06/23 07:47 36.7 C 67 18 112/71 93 Room Air 06/06/23 07:28 83 Laboratory Results Short CBC 06/06/23 Range/Units 05:46 WBC 5.35 (4.8-10.8) K/ul Hgb 12.1 L (14.0-18.0) g/dl Hct 37.6 L (42.0-52.0) % Plt Count 223 (130-400) K/uL BMP 06/06/23 05:46 Sodium 134 L Potassium 3.9 Chloride 103 Carbon Dioxide 26 BUN 23 Creatinine 0.88 Glucose 145 H Calcium 8.9 (4) COPD (chronic obstructive pulmonary disease) COPD type: unspecified COPD Qualified Code(s): J44.9 - Chronic obstructive pulmonary disease, unspecified (6) Type 2 diabetes mellitus 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
[2023-06-06] MEDS: FLUoxetine HCL 20 MG CAP PO SCH (20:18)
[2023-06-06] MEDS: MELATONIN 3 MG TAB PO PRN (20:44)
[2023-06-07] MEDS: oxyCODONE/ACETAMINOPHEN 5mg/325mg TAB PO PRN ×3 (02:06→19:03)
[2023-06-07] MEDS: VANCOMYCIN HCL 1,500 MG in SODIUM CHLORIDE 0.9% 500 ML IV SCH (02:07)
[2023-06-07] MEDS: CEFEPIME 2,000 MG in SYRINGE 0 ML IV SCH ×2 (04:55→16:07)
[2023-06-07] MEDS: MoRPHine SULFATE 2 MG/ML CARP IV PRN ×4 (04:55→22:54)
[2023-06-07 07:11] LABS: BUN Creatinine Ratio 32.6 (10-20); Calcium 9.4 mg/dl (8.6-10.3); Creatinine Clr Calc Pharmacy 112.7 ml/min; Est GFR (African American) 112.8 ml/min; Est GFR (Non-African American) 97.3 ml/min
[2023-06-07] MEDS: AMMONIUM LACTATE 12% LOTION 225 GM BTL EXT SCH ×2 (08:12→21:27)
[2023-06-07] MEDS: MAGNESIUM HYDROXIDE SUSP 30 ML UDC PO PRN (09:09)
[2023-06-07] MEDS: CLOTRIMAZOLE 1% CR 15 GM TUBE EXT SCH ×2 (09:09→21:19)
[2023-06-07] MEDS: LANTUS PER UNIT CHARGE SQ SCH ×2 (09:24→21:18)
[2023-06-07] MEDS: INSULIN ASPART PER UNIT CHARGE SC SCH ×4 (09:24→21:18)
[2023-06-07] MEDS: UMECLIDINIUM BROMIDE 62.5MCG/BLISTER 7 PUFFS/INHALER INH SCH (09:25)
[2023-06-07] MEDS: FLUTICASONE/VILANTEROL 200/25MCG 14 PUFFS/INHALER INH SCH (09:25)
[2023-06-07] MEDS: ATORVASTATIN 40 MG TAB PO SCH (09:26)
[2023-06-07] MEDS: APIXABAN 5 MG TABLET PO SCH ×2 (09:26→21:15)
[2023-06-07] MEDS: FOLIC ACID 1 MG TAB PO SCH (09:27)
[2023-06-07] MEDS: FUROSEMIDE 80 MG TAB PO SCH ×2 (09:27→17:44)
[2023-06-07] MEDS: busPIRone 15 MG TAB PO SCH ×2 (09:27→21:16)
[2023-06-07] MEDS: NICOTINE 14 MG/24 HR PATCH TD SCH (09:28)
[2023-06-07] MEDS: MONTELUKAST SODIUM 10 MG TABLET PO SCH (09:28)
[2023-06-07] MEDS: PANTOprazole 40 MG TAB PO SCH ×2 (09:29→21:17)
[2023-06-07] MEDS: diphenhydrAMINE Capsule 25 MG CAP PO PRN ×2 (09:30→21:22)
[2023-06-07] MEDS: SPIRONOLACTONE 100 MG TAB PO SCH (09:30)
[2023-06-07] MEDS: PREGABALIN 150 MG CAP PO SCH ×2 (09:39→21:15)
[2023-06-07] MEDS: HEPARIN 100 UNIT/ML 5ML FLUSH FLUSH PRN ×3 (11:06→19:02)
--- NOTE | 2023-06-07 15:12 | Pharmacy Report ---
Pharmacy PK ABX Note - Date of Service June 07, 2023 - Assessment and Plan Assessment Patient started on Vancomycin for MRSA wound infection in right leg. Day #4 of Vancomycin therapy. Random vancomycin level obtained today at 11:03 AM was 22.9 mcg/ml. No bone involvement per hospitalist notes. Plan Vancomycin * Vancomycin 1500 mg IV Q12h resulted in random level of 22.9 mcg/ml this AM. * This is predicted to achieve a target AUC of greater than 600 mg/L.hr which is above goal. * Dosing decreased to Vancomycin 1250 mg IV q12h starting today at 16:00. * Expect new dosing to achieve a target AUC/CONNIE between 400-600 mg/L.hr * Repeat random level ordered for: 06/09/23 at 11:00. Cefepime * 2 g IV q12h - no concern of osteomyelitis at this time, dosing appropriate. May consider increasing to q8h if no improvement. Pharmacy will continue to follow and will adjust dose/frequency as necessary. Thank you. Pharmacy has transitioned to AUC monitoring for vancomycin. AUC/CONNIE is the preferred PK/PD target and is associated with decreased risk of nephrotoxicity compared to traditional trough targets.
[2023-06-07] MEDS: VANCOMYCIN HCL 1,250 MG in SODIUM CHLORIDE 0.9% 250 ML IV SCH (16:08)
--- NOTE | 2023-06-07 17:22 | Hospitalist Progress Note ---
Date of Service June 07, 2023 Assessment & Plan (1) Chronic wound: (2) Venous ulcers of both lower extremities: (3) Tobacco abuse: (4) COPD (chronic obstructive pulmonary disease): (5) Depression: (6) Type 2 diabetes mellitus: Plan Pt is 48 yr male with multiple hospitalization, H/O Chronic venous ulcers bilateral lower extremities presents with purulent yellow drainage and tenderness. History of DVT on Eliquis and current smoker with COPD. H/O DM II. WOCN consulted based on culture results re-involve infectious disease if necessary. Chronic B/L LE infected wounds: Venous ulcers of both lower extremities: Peripheral neuropathy: Chronic recent venous ulcers presents now with purulent yellow drainage and tenderness --Left Ankle X ray:No acute bony abnormality is identified. Soft tissue edema with wounds as above. --Right Ankle X ray:1. No acute bony abnormality is identified. Soft tissue edema with wounds suggested along the dorsal and medial aspect of the distal calf. -- Blood cultures: Negative to date Wound culture growing MRSA, gram-negative bacilli, Corynebacterium species Continue vancomycin, cefepime Continue wound care Pain control as needed On Lyrica for Neuropathy We will consider infectious disease once cultures finalized Hypomagnesemia Hypokalemia Replete electrolytes as needed Monitor DM II Chronic stable Last A1c 05/19/2023; 6.7 Hold metformin Utilize Insulin while hospitalized Monitor BGs H/O DVT: Chronic stable Continue Eliquis HLD: Continue Atorvastatin Tobacco abuse: Smokes 1/2 pack/day cigarettes Patient states that he is trying to quit smoking Counseled to quit smoking Nicotine patch COPD: Continue home inhalers Depression: Continue fluoxetine, BuSpar DVT Px: on Eliquis CODE STATUS: Full code Admission and Anticipated Discharge Date Admission Date: June 04, 2023 Subjective Patient is seen and examined at bedside Clinically no significant change from yesterday Leg wound pain is controlled Reports constipation Denies any chest pain, dyspnea, dizziness, nausea, vomiting, abdominal pain Review of Systems Review of Systems: All systems reviewed & are unremarkable except as noted in Subjective Physical Exam Physical Exam: Physical Exam: Vitals signs as noted above General Appearance:Moderately built and nourished, no apparent distress Head: normocephalic, Atraumatic Eyes: normal inspection, EOMI Neck: supple, Trachea midline Respiratory/Chest: Decreased coarse breath sounds, No accessory muscle use Cardiovascular: S1, S2, No murmur Abdomen/GI:Soft, Non tender, Bowel sounds present Extremities/Musculoskeletal:normal inspection, B/L LE leg wounds in dressing, Trace edema, chronic venous stasis changes Neurologic/Psych:AAOX3, grossly no focal neurological deficits Skin: normal color, warm Results & Data Results & Data Vital Signs (Past 12 Hours) Vital Signs Temp Pulse Pulse Resp BP Pulse Ox O2 Del Method 06/07/23 15:00 76 06/07/23 14:52 36.6 C 86 18 116/74 96 Room Air 06/07/23 10:38 36.4 C L 74 16 133/82 96 Room Air 06/07/23 07:58 36.5 C 72 16 126/83 97 Room Air 06/07/23 07:17 66 Laboratory Results [facility] 06/07/23 06:22 Sodium 133 L Potassium 4.0 Chloride 100 Carbon Dioxide 29 BUN 30 H Creatinine 0.92 Glucose 144 H Calcium 9.4 (4) COPD (chronic obstructive pulmonary disease) COPD type: unspecified COPD Qualified Code(s): J44.9 - Chronic obstructive pulmonary disease, unspecified (6) Type 2 diabetes mellitus Diabetes mellitus terminal operator insulin use: without terminal operator use
[2023-06-07] MEDS: ONDANSETRON INJ 2 MG/ML 2 ML VIAL IV PRN (18:55)
[2023-06-07] MEDS: FLUoxetine HCL 20 MG CAP PO SCH (21:17)
[2023-06-07] MEDS: MELATONIN 3 MG TAB PO PRN (21:22)
[2023-06-08] MEDS: oxyCODONE/ACETAMINOPHEN 5mg/325mg TAB PO PRN ×3 (03:39→21:11)
[2023-06-08] MEDS: CEFEPIME 2,000 MG in SYRINGE 0 ML IV SCH ×2 (03:40→15:46)
[2023-06-08] MEDS: VANCOMYCIN HCL 1,250 MG in SODIUM CHLORIDE 0.9% 250 ML IV SCH ×2 (03:40→15:50)
[2023-06-08] MEDS: MoRPHine SULFATE 2 MG/ML CARP IV PRN ×4 (05:14→23:31)
[2023-06-08 08:12] LABS: Hematocrit (blood only) 36.8 % (42.0-52.0); Hemoglobin 12.1 g/dl (14.0-18.0); Mean Corpuscular Hemoglobin 26.1 pg (25.0-34.0); Mean Corpuscular Hgb Conc 32.9 g/dL (32.0-36.0); Mean Corpuscular Volume 79.5 fL (80.0-100.0); Mean Platelet Volume 9.8 fL (9.4-12.4); Platelet Count 237 K/uL (130-400); RDW Coefficient of Variation 15.3 % (11.5-14.5); RDW Standard Deviation 44.4 fL (36.4-46.3); Red Blood Count 4.63 M/uL (4.70-6.10); White Blood Count 7.43 K/ul (4.8-10.8)
[2023-06-08 08:36] LABS: BUN Creatinine Ratio 29.2 (10-20); Calcium 9.4 mg/dl (8.6-10.3); Creatinine Clr Calc Pharmacy 116.5 ml/min; Est GFR (African American) 116.4 ml/min; Est GFR (Non-African American) 100.4 ml/min; Potassium 4.2 mmol/L (3.5-5.1)
[2023-06-08] MEDS: ATORVASTATIN 40 MG TAB PO SCH (08:59)
[2023-06-08] MEDS: MONTELUKAST SODIUM 10 MG TABLET PO SCH (09:00)
[2023-06-08] MEDS: FUROSEMIDE 80 MG TAB PO SCH ×2 (09:00→15:54)
[2023-06-08] MEDS: PANTOprazole 40 MG TAB PO SCH ×2 (09:00→21:11)
[2023-06-08] MEDS: busPIRone 15 MG TAB PO SCH ×2 (09:01→21:11)
[2023-06-08] MEDS: FOLIC ACID 1 MG TAB PO SCH (09:01)
[2023-06-08] MEDS: SPIRONOLACTONE 100 MG TAB PO SCH (09:01)
[2023-06-08] MEDS: APIXABAN 5 MG TABLET PO SCH ×2 (09:01→21:11)
[2023-06-08] MEDS: FLUTICASONE/VILANTEROL 200/25MCG 14 PUFFS/INHALER INH SCH (09:02)
[2023-06-08] MEDS: NICOTINE 14 MG/24 HR PATCH TD SCH (09:02)
[2023-06-08] MEDS: UMECLIDINIUM BROMIDE 62.5MCG/BLISTER 7 PUFFS/INHALER INH SCH (09:02)
[2023-06-08] MEDS: CLOTRIMAZOLE 1% CR 15 GM TUBE EXT SCH ×2 (09:03→21:38)
[2023-06-08] MEDS: INSULIN ASPART PER UNIT CHARGE SC SCH ×4 (09:13→21:17)
[2023-06-08] MEDS: LANTUS PER UNIT CHARGE SQ SCH ×2 (09:14→21:17)
[2023-06-08] MEDS: PREGABALIN 150 MG CAP PO SCH ×2 (09:18→21:13)
[2023-06-08] MEDS: diphenhydrAMINE Capsule 25 MG CAP PO PRN ×2 (09:18→21:11)
[2023-06-08] MEDS: AMMONIUM LACTATE 12% LOTION 225 GM BTL EXT SCH ×2 (09:22→21:38)
[2023-06-08] MEDS ORDERED: LACTULOSE SYRUP 20 GM/30 ML UDC PO ONE (12:00)
[2023-06-08] MEDS: HEPARIN 100 UNIT/ML 5ML FLUSH FLUSH PRN (13:16)
--- NOTE | 2023-06-08 15:40 | Hospitalist Progress Note ---
Date of Service June 08, 2023 Assessment & Plan (1) Chronic wound: (2) Venous ulcers of both lower extremities: (3) Tobacco abuse: (4) COPD (chronic obstructive pulmonary disease): (5) Depression: (6) Type 2 diabetes mellitus: Plan Pt is 48 yr male with multiple hospitalization, H/O Chronic venous ulcers bilateral lower extremities presents with purulent yellow drainage and tenderness. History of DVT on Eliquis and current smoker with COPD. H/O DM II. WOCN consulted based on culture results re-involve infectious disease if necessary. Chronic B/L LE infected wounds: Venous ulcers of both lower extremities: Peripheral neuropathy: Chronic recent venous ulcers presents now with purulent yellow drainage and tenderness --Left Ankle X ray:No acute bony abnormality is identified. Soft tissue edema with wounds as above. --Right Ankle X ray:1. No acute bony abnormality is identified. Soft tissue edema with wounds suggested along the dorsal and medial aspect of the distal calf. -- Blood cultures: Negative to date Wound culture growing MRSA, gram-negative bacilli, Corynebacterium species Continue vancomycin, cefepime Continue wound care Pain control as needed On Lyrica for Neuropathy Will consider infectious disease once cultures finalized Continue current management as cultures pending Hypomagnesemia Hypokalemia Replete electrolytes as needed Monitor Constipation Continue bowel regimen Encouraged to minimize narcotics use as able encouraged to minimize narcotics use as able DM II Chronic stable Last A1c 05/19/2023; 6.7 Hold metformin Utilize Insulin while hospitalized Monitor BGs H/O DVT: Chronic stable Continue Eliquis HLD: Continue Atorvastatin Tobacco abuse: Smokes 1/2 pack/day cigarettes Patient states that he is trying to quit smoking Counseled to quit smoking Nicotine patch COPD: Continue home inhalers Depression: Continue fluoxetine, BuSpar DVT Px: on Eliquis CODE STATUS: Full code Admission and Anticipated Discharge Date Admission Date: June 04, 2023 Subjective Patient is seen and examined at bedside States feeling constipated Leg wound pain is better States having dizziness overnight which improved this morning Denies any chest pain, dyspnea, dizziness, nausea, vomiting, abdominal pain Review of Systems Review of Systems: All systems reviewed & are unremarkable except as noted in Subjective Physical Exam Physical Exam: Physical Exam: Vitals signs as noted above General Appearance:Moderately built and nourished, no apparent distress Head: normocephalic, Atraumatic Eyes: normal inspection, EOMI Neck: supple, Trachea midline Respiratory/Chest: Decreased coarse breath sounds, No accessory muscle use Cardiovascular: S1, S2, No murmur Abdomen/GI:Soft, Non tender, Bowel sounds present Extremities/Musculoskeletal:normal inspection, B/L LE leg wounds in dressing, Trace edema, chronic venous stasis changes Neurologic/Psych:AAOX3, grossly no focal neurological deficits Skin: normal color, warm Results & Data Results & Data Vital Signs (Past 12 Hours) Vital Signs Temp Pulse Pulse Resp BP Pulse Ox O2 Del Method 06/08/23 14:09 85 06/08/23 12:04 36.3 C L 80 18 151/90 H 95 Room Air 06/08/23 06:00 74 06/08/23 10:22 Room Air 06/08/23 08:08 36.8 C 74 18 123/77 94 Room Air 06/08/23 04:26 36.4 C L 71 14 122/76 93 Room Air Laboratory Results Short CBC 06/08/23 Range/Units 07:29 WBC 7.43 (4.8-10.8) K/ul Hgb 12.1 L (14.0-18.0) g/dl Hct 36.8 L (42.0-52.0) % Plt Count 237 (130-400) K/uL BMP 06/08/23 07:29 Sodium 135 L Potassium 4.2 Chloride 100 Carbon Dioxide 31 BUN 26 H Creatinine 0.89 Glucose 164 H Calcium 9.4 (4) COPD (chronic obstructive pulmonary disease) COPD type: unspecified COPD Qualified Code(s): J44.9 - Chronic obstructive pulmonary disease, unspecified (6) Type 2 diabetes mellitus Diabetes mellitus long-term insulin use: without optician apprentice dispensing use
[2023-06-08] MEDS: MELATONIN 3 MG TAB PO PRN (21:11)
[2023-06-08] MEDS: FLUoxetine HCL 20 MG CAP PO SCH (21:11)
[2023-06-09] MEDS: CEFEPIME 2,000 MG in SYRINGE 0 ML IV SCH ×2 (04:03→15:13)
[2023-06-09] MEDS: VANCOMYCIN HCL 1,250 MG in SODIUM CHLORIDE 0.9% 250 ML IV SCH ×2 (04:03→15:13)
[2023-06-09] MEDS: MoRPHine SULFATE 2 MG/ML CARP IV PRN ×3 (05:45→18:11)
[2023-06-09 07:15] LABS: Hemoglobin 12.1 g/dl (14.0-18.0); Mean Corpuscular Hgb Conc 31.8 g/dL (32.0-36.0); Mean Corpuscular Volume 81.5 fL (80.0-100.0); Platelet Count 209 K/uL (130-400); RDW Coefficient of Variation 15.4 % (11.5-14.5); RDW Standard Deviation 45.5 fL (36.4-46.3); Red Blood Count 4.66 M/uL (4.70-6.10); White Blood Count 7.64 K/ul (4.8-10.8)
[2023-06-09 07:37] LABS: Calcium 9.4 mg/dl (8.6-10.3); Creatinine Clr Calc Pharmacy 118.4 ml/min; Est GFR (African American) 116.9 ml/min; Est GFR (Non-African American) 100.9 ml/min; Potassium 3.8 mmol/L (3.5-5.1)
[2023-06-09] MEDS: NICOTINE 14 MG/24 HR PATCH TD SCH (08:44)
[2023-06-09] MEDS: UMECLIDINIUM BROMIDE 62.5MCG/BLISTER 7 PUFFS/INHALER INH SCH (08:44)
[2023-06-09] MEDS: FLUTICASONE/VILANTEROL 200/25MCG 14 PUFFS/INHALER INH SCH (08:44)
[2023-06-09] MEDS: diphenhydrAMINE Capsule 25 MG CAP PO PRN ×2 (08:49→21:14)
[2023-06-09] MEDS: PREGABALIN 150 MG CAP PO SCH ×2 (08:49→21:14)
[2023-06-09] MEDS: oxyCODONE/ACETAMINOPHEN 5mg/325mg TAB PO PRN (08:49)
[2023-06-09] MEDS: AMMONIUM LACTATE 12% LOTION 225 GM BTL EXT SCH ×2 (08:50→18:08)
[2023-06-09] MEDS: PANTOprazole 40 MG TAB PO SCH ×2 (08:51→21:19)
[2023-06-09] MEDS: FUROSEMIDE 80 MG TAB PO SCH ×2 (08:51→17:14)
[2023-06-09] MEDS: busPIRone 15 MG TAB PO SCH ×2 (08:52→21:17)
[2023-06-09] MEDS: SPIRONOLACTONE 100 MG TAB PO SCH (08:52)
[2023-06-09] MEDS: ATORVASTATIN 40 MG TAB PO SCH (08:52)
[2023-06-09] MEDS: POLYETHYLENE (MIRALAX) 17 GM PACK PO PRN (08:53)
[2023-06-09] MEDS: FOLIC ACID 1 MG TAB PO SCH (08:53)
[2023-06-09] MEDS: MONTELUKAST SODIUM 10 MG TABLET PO SCH (08:53)
[2023-06-09] MEDS: APIXABAN 5 MG TABLET PO SCH ×2 (08:53→21:16)
[2023-06-09] MEDS: CLOTRIMAZOLE 1% CR 15 GM TUBE EXT SCH ×2 (08:54→21:30)
[2023-06-09] MEDS: INSULIN ASPART PER UNIT CHARGE SC SCH ×4 (09:04→21:30)
[2023-06-09] MEDS: LANTUS PER UNIT CHARGE SQ SCH ×2 (09:04→21:14)
--- NOTE | 2023-06-09 13:06 | Pharmacy Report ---
Pharmacy PK ABX Note - Date of Service June 09, 2023 - Assessment and Plan Assessment Patient started on Vancomycin for MRSA wound infection in right leg. Patient remains afebrile w/ no leukocytosis. Renal function stable. Day #6 of Vancomycin therapy. Right leg culture growing MRSA and Alcaligenes faecalis, left leg culture growing Corynebacterium species. Plan Vancomycin * Current regimen: 1250 mg IV every 12 hours * Random level obtained 06/09/23 resulted as 20.8 mcg/mL. This is predicted to achieve target AUC/CONNIE of 400-600 mg/L.hr * Predicted AUC at steady state: 497 mg/L.hr * Continue 1250 mg IV every 12 hours * Will repeat level in the next 48-72 hours if therapy is continued and/or change in patient clinical status Cefepime * 2 g IV q12h - no concern of osteomyelitis at this time, dosing appropriate. May consider increasing to q8h if no improvement. Pharmacy will continue to follow and will adjust dose/frequency as necessary. Thank you. Pharmacy has transitioned to AUC monitoring for vancomycin. AUC/CONNIE is the preferred PK/PD target and is associated with decreased risk of nephrotoxicity compared to traditional trough targets.
[2023-06-09] MEDS ORDERED: SODIUM CHLORIDE 0.9% 250 ML IV PRN (14:42)
[2023-06-09] MEDS: hydrOXYzine HCl 10 MG TAB PO PRN ×2 (15:17→21:16)
[2023-06-09] MEDS: oxyCODONE HCL IR 5 MG TAB (IMMEDIATE RELEASE) PO PRN ×2 (17:14→23:19)
[2023-06-09] MEDS: HEPARIN 100 UNIT/ML 5ML FLUSH FLUSH PRN (18:12)
--- NOTE | 2023-06-09 18:14 | Hospitalist Progress Note ---
Date of Service June 09, 2023 Assessment & Plan (1) Chronic wound: (2) Venous ulcers of both lower extremities: (3) Tobacco abuse: (4) COPD (chronic obstructive pulmonary disease): (5) Depression: (6) Type 2 diabetes mellitus: Plan Pt is 48 yr male with multiple hospitalization, H/O Chronic venous ulcers bilateral lower extremities presents with purulent yellow drainage and tenderness. History of DVT on Eliquis and current smoker with COPD. H/O DM II. Chronic B/L LE infected wounds: Venous ulcers of both lower extremities: Peripheral neuropathy: Chronic recent venous ulcers presents now with purulent yellow drainage and tenderness --Left Ankle X ray:No acute bony abnormality is identified. Soft tissue edema with wounds as above. --Right Ankle X ray:1. No acute bony abnormality is identified. Soft tissue edema with wounds suggested along the dorsal and medial aspect of the distal calf. -- Blood cultures: Negative to date Wound culture growing MRSA, Alcaligenes-on vancomycin and cefepime as per sensitivity results. ID has been consulted for further antibiotic recommendations Continue wound care pain control DM II Chronic stable Last A1c 05/19/2023; 6.7 Metformin on hold. Currently on Lantus and sliding scale insulin H/O DVT: On Eliquis HLD: On Atorvastatin Tobacco abuse: Smokes 1/2 pack/day cigarettes Patient states that he is trying to quit smoking Counseled to quit smoking Continue nicotine patch COPD: Not in exacerbation. Continue home inhalers Depression: Stable, Continue fluoxetine, BuSpar DVT Px: on Eliquis Disposition: Pending ID evaluation. Continue IV antibiotics for infection with MRSA and Alcaligenes. Admission and Anticipated Discharge Date Admission Date: June 04, 2023 Subjective Patient was seen and examined at bedside. Complains of pain at wound site. States he takes an oxycodone 5 mg every 6 hours at home and it better controls his pain than the Percocet he is getting here. He is requesting the Percocet to be changed to oxycodone. States he is dealing with open wound since February, but states it is getting much better now. Bilateral lower extremity wounds were evaluated at bedside. No fever, chills, chest pain or shortness of breath no nausea or vomiting Review of Systems Review of Systems: All systems reviewed & are unremarkable except as noted in Subjective Physical Exam Physical Exam: General: Sitting comfortably in bed, not in distress, on room air HEENT: EOMI, ELISABETH, MMM Chest: Fair breath sounds bilaterally, CVS: Regular rate and rhythm, normal heart sounds, no murmur Abdomen: Soft, non tender, not distended, normal bowel sounds Neuro: Awake, alert, oriented, conversing well, non focal Extremities: Bilateral leg ulcers noted. Chronic venous stasis changes with some edema. Nicotine patch in arm. Results & Data Results & Data Vital Signs (Past 12 Hours) Vital Signs Temp Pulse Pulse Resp BP Pulse Ox O2 Del Method 06/09/23 14:04 80 06/09/23 15:39 37.1 C 80 18 130/75 93 Room Air 06/09/23 11:52 36.5 C 82 18 126/91 94 Room Air 06/09/23 07:54 Room Air 06/09/23 06:17 68 06/09/23 08:01 36.7 C 70 18 100/44 L 93 Room Air Laboratory Results Short CBC 06/09/23 Range/Units 06:22 WBC 7.64 (4.8-10.8) K/ul Hgb 12.1 L (14.0-18.0) g/dl Hct 38.0 L (42.0-52.0) % Plt Count 209 (130-400) K/uL BMP 06/09/23 06:22 Sodium 134 L Potassium 3.8 Chloride 99 Carbon Dioxide 30 BUN 22 Creatinine 0.88 Glucose 169 H Calcium 9.4 Medications Administered Current Inpatient Medications Acetaminophen (Acetaminophen 325 Mg Tab) 650 mg PO Q4H PRN PRN Reason: Mild-moderat Pain or Fever Stop: 07/04/23 17:16 Al Hydrox/Mg Hydrox/Simethicone (Aluminum/Magnesium Susp 30 Ml Udc) 15 ml PO Q4H PRN PRN Reason: Dyspepsia Stop: 07/04/23 17:16 Apixaban (Apixaban 5 Mg Tablet) 5 mg PO BID [facility] Stop: 07/04/23 20:59 Last Admin: 06/09/23 08:53 Dose: 5 mg Atorvastatin Calcium (Atorvastatin 40 Mg Tab) 40 mg PO QAM [facility] Stop: 07/05/23 08:59 Last Admin: 06/09/23 08:52 Dose: 40 mg Buspirone HCl (Buspirone 15 Mg Tab) 15 mg PO BID [facility] Stop: 07/04/23 20:59 Last Admin: 06/09/23 08:52 Dose: 15 mg Clotrimazole (Clotrimazole 1% Cr 15 Gm Tube) 1 appln EXT BID [facility] Stop: 07/04/23 20:59 Last Admin: 06/09/23 08:54 Dose: 1 appln Dextrose (Dextrose 50% 50 Ml Syringe) 25 - 50 ml IV UD PRN; Protocol PRN Reason: Hypoglycemia Protocol Stop: 07/04/23 20:49 Diphenhydramine HCl (Diphenhydramine Capsule 25 Mg Cap) 25 mg PO Q6H PRN PRN Reason: Itching Stop: 07/04/23 18:02 Last Admin: 06/09/23 08:49 Dose: 25 mg Fluoxetine HCl (Fluoxetine Hcl 20 Mg Cap) 20 mg PO HS OT[facility] Stop: 07/04/23 20:59 Last Admin: 06/08/23 21:11 Dose: 20 mg Fluticasone/Vilanterol (Fluticasone/Vilanterol 200/25mcg 14 Puffs/Inhaler) 1 puffs INH DAILY OT[facility]; Protocol Stop: 07/04/23 20:29 Last Admin: 06/09/23 08:44 Dose: 1 puffs Folic Acid (Folic Acid 1 Mg Tab) 1 mg PO QAM [facility] Stop: 07/05/23 08:59 Last Admin: 06/09/23 08:53 Dose: 1 mg Furosemide (Furosemide 80 Mg Tab) 80 mg PO [id number] [facility] Stop: 07/05/23 08:59 Last Admin: 06/09/23 17:14 Dose: 80 mg Glucagon (Glucagon For Inj 1 Mg Vial) 1 mg SQ UD PRN; Protocol PRN Reason: Hypoglycemia Protocol Stop: 07/04/23 20:49 Glucose (Glucose 10 Tab/Tube) 4 - 8 tab PO UD PRN; Protocol PRN Reason: Hypoglycemia Treatment Stop: 07/04/23 20:49 Glucose (Glucose 40% Gel 15 Gm Tube) 15 - 30 gm PO UD PRN; Protocol PRN Reason: Hypoglycemia Protocol Stop: 07/04/23 20:49 Heparin Sodium (Porcine) (Heparin 100 Unit/Ml 5ml Flush) 5 ml FLUSH PRN PRN PRN Reason: Flush Stop: 07/06/23 01:08 Last Admin: 06/08/23 13:16 Dose: 5 ml Hydroxyzine HCl (Hydroxyzine Hcl 10 Mg Tab) 10 mg PO Q8H PRN PRN Reason: Itching Stop: 07/04/23 18:02 Last Admin: 06/09/23 15:17 Dose: 10 mg Cefepime HCl 2,000 mg/ Syringe 20 mls @ 5 mls/min IV Q12H [facility]; Protocol Stop: 06/12/23 03:59 Last Admin: 06/09/23 15:13 Dose: 5 mls/min Vancomycin HCl 1,250 mg/ (Sodium Chloride) 275 mls @ 200 mls/hr IV Q12H [facility]; Protocol Stop: 06/11/23 15:59 Last Infusion: 06/09/23 16:36 Dose: Infused Sodium Chloride (Nss) 250 mls @ 15 mls/hr IV .[id number] PRN PRN Reason: For Transfusion Duration Stop: 06/10/23 00:42 Insulin Aspart (Insulin Aspart Per Unit Charge) 0 units SC ACHS [facility] Stop: 07/04/23 20:59 Last Admin: 06/09/23 17:46 Dose: 10 units Insulin Glargine (Lantus Per Unit Charge) 5 units SQ BID [facility] Stop: 07/05/23 08:59 Last Admin: 06/09/23 09:04 Dose: 5 units Lactic Acid (Ammonium Lactate 12% Lotion 225 Gm Btl) 1 gm EXT BID [facility] Stop: 07/04/23 20:59 Last Admin: 06/09/23 08:50 Dose: 1 gm Magnesium Hydroxide (Magnesium Hydroxide Susp 30 Ml Udc) 30 ml PO Q12H PRN PRN Reason: Constipation Stop: 07/04/23 17:16 Last Admin: 06/07/23 09:09 Dose: 30 ml Melatonin (Melatonin 3 Mg Tab) 3 mg PO HS PRN PRN Reason: Sleep Stop: 07/05/23 15:36 Last Admin: 06/08/23 21:11 Dose: 3 mg Miscellaneous (Remove Nicoderm Patch) 1 each N/A DAILY@0859 [facility] Stop: 07/05/23 08:58 Last Admin: 06/09/23 08:42 Dose: 1 each Miscellaneous (Carbohydrates For Hypoglycemia ) 15 - 30 gm PO UD PRN PRN Reason: Hypoglycemia Protocol Stop: 07/04/23 20:49 Miscellaneous Information (Vancomycin Consult Active) 1 each N/A UD PRN PRN Reason: Consult Stop: 07/04/23 16:33 Montelukast Sodium (Montelukast Sodium 10 Mg Tablet) 10 mg PO DAILY [facility] Stop: 07/05/23 08:59 Last Admin: 06/09/23 08:53 Dose: 10 mg Morphine Sulfate (Morphine Sulfate 2 Mg/Ml Carp) 2 mg IV Q6H PRN PRN Reason: Severe Pain (Scale 7, 8, 9,10) Stop: 06/19/23 11:47 Last Admin: 06/09/23 11:54 Dose: 2 mg Multi-Ingredient Cream (Eucerin Cr 120 Gm Jar) 1 appln EXT TID PRN PRN Reason: Skin Irritation Stop: 07/04/23 18:02 Nicotine (Nicotine 14 Mg/24 Hr Patch) 14 mg TD QAM [facility] Stop: 07/04/23 17:29 Last Admin: 06/09/23 08:44 Dose: 14 mg Ondansetron HCl (Ondansetron Inj 2 Mg/Ml 2 Ml Vial) 4 mg IV Q6H PRN PRN Reason: Nausea Stop: 07/04/23 17:16 Last Admin: 06/07/23 18:55 Dose: 4 mg Oxycodone HCl (Oxycodone Hcl Ir 5 Mg Tab (Immediate Release)) 5 mg PO Q6H PRN PRN Reason: Pain Stop: 06/23/23 16:53 Last Admin: 06/09/23 17:14 Dose: 5 mg Pantoprazole Sodium (Pantoprazole 40 Mg Tab) 40 mg PO BID [facility] Stop: 07/04/23 20:59 Last Admin: 06/09/23 08:51 Dose: 40 mg Polyethylene Glycol (Polyethylene (Miralax) 17 Gm Pack) 17 gm PO DAILY PRN PRN Reason: Constipation Stop: 07/04/23 17:16 Last Admin: 06/09/23 08:53 Dose: 17 gm Pregabalin (Pregabalin 150 Mg Cap) 150 mg PO BID [facility] Stop: 07/04/23 20:59 Last Admin: 06/09/23 08:49 Dose: 150 mg Spironolactone (Spironolactone 100 Mg Tab) 100 mg PO QAM [facility] Stop: 07/05/23 08:59 Last Admin: 06/09/23 08:52 Dose: 100 mg Umeclidinium [place] (Umeclidinium [place] 62.5mcg/Blister 7 Puffs/Inhaler) 1 puffs INH DAILY [facility] Stop: 07/05/23 08:59 Last Admin: 06/09/23 08:44 Dose: 1 puffs (4) COPD (chronic obstructive pulmonary disease) COPD type: unspecified COPD Qualified Code(s): J44.9 - Chronic obstructive pulmonary disease, unspecified (6) Type 2 diabetes mellitus Diabetes mellitus terminal carman insulin use: without mcc use
[2023-06-09] MEDS: MELATONIN 3 MG TAB PO PRN (21:15)
[2023-06-09] MEDS: FLUoxetine HCL 20 MG CAP PO SCH (21:17)
[2023-06-10] MEDS: MoRPHine SULFATE 2 MG/ML CARP IV PRN ×4 (00:19→18:22)
[2023-06-10] MEDS: ONDANSETRON INJ 2 MG/ML 2 ML VIAL IV PRN ×2 (00:19→18:22)
[2023-06-10] MEDS: CEFEPIME 2,000 MG in SYRINGE 0 ML IV SCH ×2 (03:47→15:31)
[2023-06-10] MEDS: VANCOMYCIN HCL 1,250 MG in SODIUM CHLORIDE 0.9% 250 ML IV SCH ×2 (03:47→15:32)
[2023-06-10] MEDS: oxyCODONE HCL IR 5 MG TAB (IMMEDIATE RELEASE) PO PRN ×4 (05:08→23:05)
[2023-06-10] MEDS: HEPARIN 100 UNIT/ML 5ML FLUSH FLUSH PRN ×3 (06:11→18:27)
[2023-06-10] MEDS: AMMONIUM LACTATE 12% LOTION 225 GM BTL EXT SCH ×2 (08:57→21:06)
[2023-06-10] MEDS: CLOTRIMAZOLE 1% CR 15 GM TUBE EXT SCH ×2 (08:59→21:00)
[2023-06-10] MEDS: UMECLIDINIUM BROMIDE 62.5MCG/BLISTER 7 PUFFS/INHALER INH SCH (09:00)
[2023-06-10] MEDS: FLUTICASONE/VILANTEROL 200/25MCG 14 PUFFS/INHALER INH SCH (09:00)
[2023-06-10] MEDS: PREGABALIN 150 MG CAP PO SCH ×2 (09:05→21:16)
[2023-06-10] MEDS: INSULIN ASPART PER UNIT CHARGE SC SCH ×4 (09:05→21:01)
[2023-06-10] MEDS: NICOTINE 14 MG/24 HR PATCH TD SCH (09:06)
[2023-06-10] MEDS: LANTUS PER UNIT CHARGE SQ SCH ×2 (09:06→21:01)
[2023-06-10] MEDS: PANTOprazole 40 MG TAB PO SCH ×2 (09:07→21:05)
[2023-06-10] MEDS: SPIRONOLACTONE 100 MG TAB PO SCH (09:08)
[2023-06-10] MEDS: FOLIC ACID 1 MG TAB PO SCH (09:08)
[2023-06-10] MEDS: FUROSEMIDE 80 MG TAB PO SCH ×2 (09:09→17:14)
[2023-06-10] MEDS: busPIRone 15 MG TAB PO SCH ×2 (09:09→21:04)
[2023-06-10] MEDS: MONTELUKAST SODIUM 10 MG TABLET PO SCH (09:09)
[2023-06-10] MEDS: APIXABAN 5 MG TABLET PO SCH ×2 (09:09→21:05)
[2023-06-10] MEDS: ATORVASTATIN 40 MG TAB PO SCH (09:10)
[2023-06-10] MEDS: diphenhydrAMINE Capsule 25 MG CAP PO PRN ×2 (09:45→21:02)
--- NOTE | 2023-06-10 12:40 | Hospitalist Progress Note ---
Date of Service June 10, 2023 Assessment & Plan (1) Chronic wound: (2) Venous ulcers of both lower extremities: (3) Tobacco abuse: (4) COPD (chronic obstructive pulmonary disease): (5) Depression: (6) Type 2 diabetes mellitus: Plan Pt is 48 yr male with multiple hospitalization, H/O Chronic venous ulcers bilateral lower extremities presents with purulent yellow drainage and tenderness. History of DVT on Eliquis and current smoker with COPD. H/O DM II. Chronic B/L LE infected wounds: Venous ulcers of both lower extremities: Peripheral neuropathy: Chronic recent venous ulcers presents now with purulent yellow drainage and tenderness --Left Ankle X ray:No acute bony abnormality is identified. Soft tissue edema with wounds as above. --Right Ankle X ray:1. No acute bony abnormality is identified. Soft tissue edema with wounds suggested along the dorsal and medial aspect of the distal calf. -- Blood cultures: Negative to date Wound culture growing MRSA, Alcaligenes-on vancomycin and cefepime as per sensitivity results. ID has been consulted for further antibiotic recommendations Continue wound care and pain control DM II Chronic stable Last A1c 05/19/2023; 6.7 We will resume metformin given his medical stability, will try to cut down Lantus and sliding scale insulin H/O DVT: On Eliquis HLD: On Atorvastatin Tobacco abuse: Smokes 1/2 pack/day cigarettes Patient states that he is trying to quit smoking Counseled to quit smoking Continue nicotine patch COPD: Not in exacerbation. Continue home inhalers Depression: Stable, Continue fluoxetine, BuSpar DVT Px: on Eliquis Disposition: Pending ID evaluation. Continue IV antibiotics for infection with MRSA and Alcaligenes. Admission and Anticipated Discharge Date Admission Date: June 04, 2023 Subjective Patient was seen and examined at bedside. States he wants assistant gm of content & delivery salad but we will leave it to him with the dietary restriction. States his pain is better controlled with oral oxycodone rather than Percocet. Also states his wound is improving and getting smaller. No fever, chills, chest pain or shortness of breath, no nausea or vomiting. Review of Systems Review of Systems: All systems reviewed & are unremarkable except as noted in Subjective Physical Exam Physical Exam: General: Sitting comfortably in bed, not in distress, on room air HEENT: EOMI, ELISABETH, MMM Chest: Some coarse breath sounds, no accessory muscle use CVS: Regular rate and rhythm, normal heart sounds, no murmur Abdomen: Soft, non tender, not distended, normal bowel sounds Neuro: Awake, alert, oriented, conversing well, non focal Extremities: Dressing noted in bilateral lower extremity. chronic venous stasis changes with some edema. Nicotine patch in arm. Results & Data Results & Data Vital Signs (Past 12 Hours) Vital Signs Temp Pulse Resp BP Pulse Ox O2 Del Method 06/10/23 08:07 Room Air 06/10/23 08:20 36.8 C 71 18 106/65 93 Room Air Medications Administered Current Inpatient Medications Acetaminophen (Acetaminophen 325 Mg Tab) 650 mg PO Q4H PRN PRN Reason: Mild-moderat Pain or Fever Stop: 07/04/23 17:16 Al Hydrox/Mg Hydrox/Simethicone (Aluminum/Magnesium Susp 30 Ml Udc) 15 ml PO Q4H PRN PRN Reason: Dyspepsia Stop: 07/04/23 17:16 Apixaban (Apixaban 5 Mg Tablet) 5 mg PO BID [facility] Stop: 07/04/23 20:59 Last Admin: 06/10/23 09:09 Dose: 5 mg Atorvastatin Calcium (Atorvastatin 40 Mg Tab) 40 mg PO QAM [facility] Stop: 07/05/23 08:59 Last Admin: 06/10/23 09:10 Dose: 40 mg Buspirone HCl (Buspirone 15 Mg Tab) 15 mg PO BID [facility] Stop: 07/04/23 20:59 Last Admin: 06/10/23 09:09 Dose: 15 mg Clotrimazole (Clotrimazole 1% Cr 15 Gm Tube) 1 appln EXT BID [facility] Stop: 07/04/23 20:59 Last Admin: 06/10/23 08:59 Dose: 1 appln Dextrose (Dextrose 50% 50 Ml Syringe) 25 - 50 ml IV UD PRN; Protocol PRN Reason: Hypoglycemia Protocol Stop: 07/04/23 20:49 Diphenhydramine HCl (Diphenhydramine Capsule 25 Mg Cap) 25 mg PO Q6H PRN PRN Reason: Itching Stop: 07/04/23 18:02 Last Admin: 06/10/23 09:45 Dose: 25 mg Fluoxetine HCl (Fluoxetine Hcl 20 Mg Cap) 20 mg PO HS [facility] Stop: 07/04/23 20:59 Last Admin: 06/09/23 21:17 Dose: 20 mg Fluticasone/Vilanterol (Fluticasone/Vilanterol 200/25mcg 14 Puffs/Inhaler) 1 puffs INH DAILY [facility]; Protocol Stop: 07/04/23 20:29 Last Admin: 06/10/23 09:00 Dose: 1 puffs Folic Acid (Folic Acid 1 Mg Tab) 1 mg PO QAM [facility] Stop: 07/05/23 08:59 Last Admin: 06/10/23 09:08 Dose: 1 mg Furosemide (Furosemide 80 Mg Tab) 80 mg PO BID17 [facility] Stop: 07/05/23 08:59 Last Admin: 06/10/23 09:09 Dose: 80 mg Glucagon (Glucagon For Inj 1 Mg Vial) 1 mg SQ UD PRN; Protocol PRN Reason: Hypoglycemia Protocol Stop: 07/04/23 20:49 Glucose (Glucose 10 Tab/Tube) 4 - 8 tab PO UD PRN; Protocol PRN Reason: Hypoglycemia Treatment Stop: 07/04/23 20:49 Glucose (Glucose 40% Gel 15 Gm Tube) 15 - 30 gm PO UD PRN; Protocol PRN Reason: Hypoglycemia Protocol Stop: 07/04/23 20:49 Heparin Sodium (Porcine) (Heparin 100 Unit/Ml 5ml Flush) 5 ml FLUSH PRN PRN PRN Reason: Flush Stop: 07/06/23 01:08 Last Admin: 06/10/23 10:12 Dose: 5 ml Hydroxyzine HCl (Hydroxyzine Hcl 10 Mg Tab) 10 mg PO Q8H PRN PRN Reason: Itching Stop: 07/04/23 18:02 Last Admin: 06/09/23 21:16 Dose: 10 mg Cefepime HCl 2,000 mg/ Syringe 20 mls @ 5 mls/min IV Q12H [facility]; Protocol Stop: 06/16/23 03:59 Last Admin: 06/10/23 03:47 Dose: 5 mls/min Vancomycin HCl 1,250 mg/ (Sodium Chloride) 275 mls @ 200 mls/hr IV Q12H [facility]; Protocol Stop: 06/16/23 15:59 Last Infusion: 06/10/23 05:19 Dose: Infused Insulin Aspart (Insulin Aspart Per Unit Charge) 0 units SC ACHS [facility] Stop: 07/04/23 20:59 Last Admin: 06/10/23 09:05 Dose: 11 units Insulin Glargine (Lantus Per Unit Charge) 5 units SQ BID [facility] Stop: 07/05/23 08:59 Last Admin: 06/10/23 09:06 Dose: 5 units Lactic Acid (Ammonium Lactate 12% Lotion 225 Gm Btl) 1 gm EXT BID [facility] Stop: 07/04/23 20:59 Last Admin: 06/10/23 08:57 Dose: 1 gm Magnesium Hydroxide (Magnesium Hydroxide Susp 30 Ml Udc) 30 ml PO Q12H PRN PRN Reason: Constipation Stop: 07/04/23 17:16 Last Admin: 06/07/23 09:09 Dose: 30 ml Melatonin (Melatonin 3 Mg Tab) 3 mg PO HS PRN PRN Reason: Sleep Stop: 07/05/23 15:36 Last Admin: 06/09/23 21:15 Dose: 3 mg Metformin HCl (Metformin Hcl 500 Mg Tab) 1,000 mg PO BIDM [facility] Stop: 07/10/23 16:59 Miscellaneous (Remove Nicoderm Patch) 1 each N/A DAILY@0859 [facility] Stop: 07/05/23 08:58 Last Admin: 06/10/23 08:58 Dose: 1 each Miscellaneous (Carbohydrates For Hypoglycemia ) 15 - 30 gm PO UD PRN PRN Reason: Hypoglycemia Protocol Stop: 07/04/23 20:49 Miscellaneous Information (Vancomycin Consult Active) 1 each N/A UD PRN PRN Reason: Consult Stop: 07/04/23 16:33 Montelukast Sodium (Montelukast Sodium 10 Mg Tablet) 10 mg PO DAILY [facility] Stop: 07/05/23 08:59 Last Admin: 06/10/23 09:09 Dose: 10 mg Morphine Sulfate (Morphine Sulfate 2 Mg/Ml Carp) 2 mg IV Q6H PRN PRN Reason: Severe Pain (Scale 7, 8, 9,10) Stop: 06/19/23 11:47 Last Admin: 06/10/23 12:20 Dose: 2 mg Multi-Ingredient Cream (Eucerin Cr 120 Gm Jar) 1 appln EXT TID PRN PRN Reason: Skin Irritation Stop: 07/04/23 18:02 Nicotine (Nicotine 14 Mg/24 Hr Patch) 14 mg TD QAM [facility] Stop: 07/04/23 17:29 Last Admin: 06/10/23 09:06 Dose: 14 mg Ondansetron HCl (Ondansetron Inj 2 Mg/Ml 2 Ml Vial) 4 mg IV Q6H PRN PRN Reason: Nausea Stop: 07/04/23 17:16 Last Admin: 06/10/23 00:19 Dose: 4 mg Oxycodone HCl (Oxycodone Hcl Ir 5 Mg Tab (Immediate Release)) 5 mg PO Q6H PRN PRN Reason: Pain Stop: 06/23/23 16:53 Last Admin: 06/10/23 11:13 Dose: 5 mg Pantoprazole Sodium (Pantoprazole 40 Mg Tab) 40 mg PO BID [facility] Stop: 07/04/23 20:59 Last Admin: 06/10/23 09:07 Dose: 40 mg Polyethylene Glycol (Polyethylene (Miralax) 17 Gm Pack) 17 gm PO DAILY PRN PRN Reason: Constipation Stop: 07/04/23 17:16 Last Admin: 06/09/23 08:53 Dose: 17 gm Pregabalin (Pregabalin 150 Mg Cap) 150 mg PO BID [facility] Stop: 07/04/23 20:59 Last Admin: 06/10/23 09:05 Dose: 150 mg Spironolactone (Spironolactone 100 Mg Tab) 100 mg PO QAM [facility] Stop: 07/05/23 08:59 Last Admin: 06/10/23 09:08 Dose: 100 mg Umeclidinium [place] (Umeclidinium [place] 62.5mcg/Blister 7 Puffs/Inhaler) 1 puffs INH DAILY [facility] Stop: 07/05/23 08:59 Last Admin: 06/10/23 09:00 Dose: 1 puffs (4) COPD (chronic obstructive pulmonary disease) COPD type: unspecified COPD Qualified Code(s): J44.9 - Chronic obstructive pulmonary disease, unspecified (6) Type 2 diabetes mellitus Diabetes mellitus skilled nursing insulin use: without skilled nursing use
[2023-06-10] MEDS: metFORMIN HCL 500 MG TAB PO SCH (17:54)
[2023-06-10] MEDS: hydrOXYzine HCl 10 MG TAB PO PRN (17:54)
[2023-06-10] MEDS: POLYETHYLENE (MIRALAX) 17 GM PACK PO PRN (18:22)
[2023-06-10] MEDS: MELATONIN 3 MG TAB PO PRN (21:03)
[2023-06-10] MEDS: FLUoxetine HCL 20 MG CAP PO SCH (21:06)
[2023-06-11] MEDS: MoRPHine SULFATE 2 MG/ML CARP IV PRN ×4 (00:16→18:18)
[2023-06-11] MEDS: CEFEPIME 2,000 MG in SYRINGE 0 ML IV SCH ×2 (03:48→16:18)
[2023-06-11] MEDS: VANCOMYCIN HCL 1,250 MG in SODIUM CHLORIDE 0.9% 250 ML IV SCH ×2 (03:49→16:18)
[2023-06-11] MEDS: oxyCODONE HCL IR 5 MG TAB (IMMEDIATE RELEASE) PO PRN ×4 (06:02→23:25)
[2023-06-11 07:06] LABS: Creatinine Clr Calc Pharmacy 125.6 ml/min; Est GFR (African American) 119.7 ml/min; Est GFR (Non-African American) 103.3 ml/min
--- NOTE | 2023-06-11 09:08 | Hospitalist Progress Note ---
Date of Service June 11, 2023 Assessment & Plan (1) Chronic wound: (2) Venous ulcers of both lower extremities: (3) Tobacco abuse: (4) COPD (chronic obstructive pulmonary disease): (5) Depression: (6) Type 2 diabetes mellitus: Plan Pt is 48 yr male with multiple hospitalization, H/O Chronic venous ulcers bilateral lower extremities presents with purulent yellow drainage and tenderness. History of DVT on Eliquis and current smoker with COPD. H/O DM II. Chronic B/L LE infected wounds: Venous ulcers of both lower extremities: Peripheral neuropathy: Chronic recent venous ulcers presents now with purulent yellow drainage and tenderness --Left Ankle X ray:No acute bony abnormality is identified. Soft tissue edema with wounds as above. --Right Ankle X ray:1. No acute bony abnormality is identified. Soft tissue edema with wounds suggested along the dorsal and medial aspect of the distal calf. -- Blood cultures: Negative to date Wound culture growing MRSA, Alcaligenes-on vancomycin and cefepime as per sensitivity results. ID has been consulted for further antibiotic recommendations Continue wound care and pain control DM II Chronic stable Last A1c 05/19/2023; 6.7 We will resume metformin given his medical stability, will try to cut down Lantus and sliding scale insulin H/O DVT: On Eliquis HLD: On Atorvastatin Tobacco abuse: Smokes 1/2 pack/day cigarettes Patient states that he is trying to quit smoking Counseled to quit smoking Continue nicotine patch COPD: Not in exacerbation. Continue home inhalers Depression: Stable, Continue fluoxetine, BuSpar DVT Px: on Eliquis Disposition: Pending ID evaluation. Continue IV antibiotics for infection with MRSA and Alcaligenes. Admission and Anticipated Discharge Date Admission Date: June 04, 2023 Subjective Patient was seen and examined at bedside. He feels fine. No new issues. Has some pain at the wound site, especially during dressing changes. No fever, chills, chest pain or shortness of breath or nausea or vomiting. Review of Systems Review of Systems: All systems reviewed & are unremarkable except as noted in Subjective Physical Exam Physical Exam: General: Lying comfortably in bed, not in distress, on room air HEENT: EOMI, CARROLL, MMM Chest: Fair breath sounds bilaterally, no wheezes or crackles CVS: Regular rate and rhythm, normal heart sounds, no murmur Abdomen: Soft, non tender, not distended, normal bowel sounds Neuro: Awake, alert, oriented, conversing well, non focal Extremities: No cyanosis, clubbing or edema Results & Data Results & Data Vital Signs (Past 12 Hours) Vital Signs Temp Pulse Resp BP Pulse Ox O2 Del Method 06/10/23 23:16 Room Air 06/10/23 23:08 37.1 C 87 18 124/79 90 Room Air Laboratory Results BMP 06/11/23 06:09 Creatinine 0.83 Medications Administered Current Inpatient Medications Acetaminophen (Acetaminophen 325 Mg Tab) 650 mg PO Q4H PRN PRN Reason: Mild-moderat Pain or Fever Stop: 07/04/23 17:16 Al Hydrox/Mg Hydrox/Simethicone (Aluminum/Magnesium Susp 30 Ml Udc) 15 ml PO Q4H PRN PRN Reason: Dyspepsia Stop: 07/04/23 17:16 Apixaban (Apixaban 5 Mg Tablet) 5 mg PO BID [facility] Stop: 07/04/23 20:59 Last Admin: 06/10/23 21:05 Dose: 5 mg Atorvastatin Calcium (Atorvastatin 40 Mg Tab) 40 mg PO QAM [facility] Stop: 07/05/23 08:59 Last Admin: 06/10/23 09:10 Dose: 40 mg Buspirone HCl (Buspirone 15 Mg Tab) 15 mg PO BID [facility] Stop: 07/04/23 20:59 Last Admin: 06/10/23 21:04 Dose: 15 mg Clotrimazole (Clotrimazole 1% Cr 15 Gm Tube) 1 appln EXT BID [facility] Stop: 07/04/23 20:59 Last Admin: 06/10/23 21:00 Dose: 1 appln Dextrose (Dextrose 50% 50 Ml Syringe) 25 - 50 ml IV UD PRN; Protocol PRN Reason: Hypoglycemia Protocol Stop: 07/04/23 20:49 Diphenhydramine HCl (Diphenhydramine Capsule 25 Mg Cap) 25 mg PO Q6H PRN PRN Reason: Itching Stop: 07/04/23 18:02 Last Admin: 06/10/23 21:02 Dose: 25 mg Fluoxetine HCl (Fluoxetine Hcl 20 Mg Cap) 20 mg PO HS [facility] Stop: 07/04/23 20:59 Last Admin: 06/10/23 21:06 Dose: 20 mg Fluticasone/Vilanterol (Fluticasone/Vilanterol 200/25mcg 14 Puffs/Inhaler) 1 puffs INH DAILY [facility]; Protocol Stop: 07/04/23 20:29 Last Admin: 06/10/23 09:00 Dose: 1 puffs Folic Acid (Folic Acid 1 Mg Tab) 1 mg PO QAM [facility] Stop: 07/05/23 08:59 Last Admin: 06/10/23 09:08 Dose: 1 mg Furosemide (Furosemide 80 Mg Tab) 80 mg PO BID17 [facility] Stop: 07/05/23 08:59 Last Admin: 06/10/23 17:14 Dose: 80 mg Glucagon (Glucagon For Inj 1 Mg Vial) 1 mg SQ UD PRN; Protocol PRN Reason: Hypoglycemia Protocol Stop: 07/04/23 20:49 Glucose (Glucose 10 Tab/Tube) 4 - 8 tab PO UD PRN; Protocol PRN Reason: Hypoglycemia Treatment Stop: 07/04/23 20:49 Glucose (Glucose 40% Gel 15 Gm Tube) 15 - 30 gm PO UD PRN; Protocol PRN Reason: Hypoglycemia Protocol Stop: 07/04/23 20:49 Heparin Sodium (Porcine) (Heparin 100 Unit/Ml 5ml Flush) 5 ml FLUSH PRN PRN PRN Reason: Flush Stop: 07/06/23 01:08 Last Admin: 06/10/23 18:27 Dose: 5 ml Hydroxyzine HCl (Hydroxyzine Hcl 10 Mg Tab) 10 mg PO Q8H PRN PRN Reason: Itching Stop: 07/04/23 18:02 Last Admin: 06/10/23 17:54 Dose: 10 mg Cefepime HCl 2,000 mg/ Syringe 20 mls @ 5 mls/min IV Q12H [facility]; Protocol Stop: 06/16/23 03:59 Last Admin: 06/11/23 03:48 Dose: 5 mls/min Vancomycin HCl 1,250 mg/ (Sodium Chloride) 275 mls @ 200 mls/hr IV Q12H [facility]; Protocol Stop: 06/16/23 15:59 Last Infusion: 06/11/23 05:17 Dose: Infused Insulin Aspart (Insulin Aspart Per Unit Charge) 0 units SC ACHS [facility] Stop: 07/04/23 20:59 Last Admin: 06/10/23 21:01 Dose: 3 units Insulin Glargine (Lantus Per Unit Charge) 5 units SQ BID [facility] Stop: 07/05/23 08:59 Last Admin: 06/10/23 21:01 Dose: 5 units Lactic Acid (Ammonium Lactate 12% Lotion 225 Gm Btl) 1 gm EXT BID [facility] Stop: 07/04/23 20:59 Last Admin: 06/10/23 21:06 Dose: 1 gm Magnesium Hydroxide (Magnesium Hydroxide Susp 30 Ml Udc) 30 ml PO Q12H PRN PRN Reason: Constipation Stop: 07/04/23 17:16 Last Admin: 06/07/23 09:09 Dose: 30 ml Melatonin (Melatonin 3 Mg Tab) 3 mg PO HS PRN PRN Reason: Sleep Stop: 07/05/23 15:36 Last Admin: 06/10/23 21:03 Dose: 3 mg Metformin HCl (Metformin Hcl 500 Mg Tab) 1,000 mg PO BIDM [facility] Stop: 07/10/23 16:59 Last Admin: 06/10/23 17:54 Dose: 1,000 mg Miscellaneous (Remove Nicoderm Patch) 1 each N/A DAILY@0859 [facility] Stop: 07/05/23 08:58 Last Admin: 06/10/23 08:58 Dose: 1 each Miscellaneous (Carbohydrates For Hypoglycemia ) 15 - 30 gm PO UD PRN PRN Reason: Hypoglycemia Protocol Stop: 07/04/23 20:49 Miscellaneous Information (Vancomycin Consult Active) 1 each N/A UD PRN PRN Reason: Consult Stop: 07/04/23 16:33 Montelukast Sodium (Montelukast Sodium 10 Mg Tablet) 10 mg PO DAILY [facility] Stop: 07/05/23 08:59 Last Admin: 06/10/23 09:09 Dose: 10 mg Morphine Sulfate (Morphine Sulfate 2 Mg/Ml Carp) 2 mg IV Q6H PRN PRN Reason: Severe Pain (Scale 7, 8, 9,10) Stop: 06/19/23 11:47 Last Admin: 06/11/23 06:30 Dose: 2 mg Multi-Ingredient Cream (Eucerin Cr 120 Gm Jar) 1 appln EXT TID PRN PRN Reason: Skin Irritation Stop: 07/04/23 18:02 Nicotine (Nicotine 14 Mg/24 Hr Patch) 14 mg TD QAM [facility] Stop: 07/04/23 17:29 Last Admin: 06/10/23 09:06 Dose: 14 mg Ondansetron HCl (Ondansetron Inj 2 Mg/Ml 2 Ml Vial) 4 mg IV Q6H PRN PRN Reason: Nausea Stop: 07/04/23 17:16 Last Admin: 06/10/23 18:22 Dose: 4 mg Oxycodone HCl (Oxycodone Hcl Ir 5 Mg Tab (Immediate Release)) 5 mg PO Q6H PRN PRN Reason: Pain Stop: 06/23/23 16:53 Last Admin: 06/11/23 06:02 Dose: 5 mg Pantoprazole Sodium (Pantoprazole 40 Mg Tab) 40 mg PO BID [facility] Stop: 07/04/23 20:59 Last Admin: 06/10/23 21:05 Dose: 40 mg Polyethylene Glycol (Polyethylene (Miralax) 17 Gm Pack) 17 gm PO DAILY PRN PRN Reason: Constipation Stop: 07/04/23 17:16 Last Admin: 06/10/23 18:22 Dose: 17 gm Pregabalin (Pregabalin 150 Mg Cap) 150 mg PO BID [facility] Stop: 07/04/23 20:59 Last Admin: 06/10/23 21:16 Dose: 150 mg Spironolactone (Spironolactone 100 Mg Tab) 100 mg PO QAM [facility] Stop: 07/05/23 08:59 Last Admin: 06/10/23 09:08 Dose: 100 mg Umeclidinium [place] (Umeclidinium [place] 62.5mcg/Blister 7 Puffs/Inhaler) 1 puffs INH DAILY [facility] Stop: 07/05/23 08:59 Last Admin: 06/10/23 09:00 Dose: 1 puffs (4) COPD (chronic obstructive pulmonary disease) COPD type: unspecified COPD Qualified Code(s): J44.9 - Chronic obstructive pulmonary disease, unspecified (6) Type 2 diabetes mellitus Diabetes mellitus fdc insulin use: without superintendent [employer] use
[2023-06-11] MEDS: INSULIN ASPART PER UNIT CHARGE SC SCH ×4 (09:46→21:14)
[2023-06-11] MEDS: PANTOprazole 40 MG TAB PO SCH ×2 (09:47→21:21)
[2023-06-11] MEDS: MONTELUKAST SODIUM 10 MG TABLET PO SCH (09:47)
[2023-06-11] MEDS: APIXABAN 5 MG TABLET PO SCH ×2 (09:47→21:21)
[2023-06-11] MEDS: LANTUS PER UNIT CHARGE SQ SCH ×2 (09:47→21:14)
[2023-06-11] MEDS: busPIRone 15 MG TAB PO SCH ×2 (09:47→21:21)
[2023-06-11] MEDS: ATORVASTATIN 40 MG TAB PO SCH (09:48)
[2023-06-11] MEDS: CLOTRIMAZOLE 1% CR 15 GM TUBE EXT SCH ×2 (09:48→21:15)
[2023-06-11] MEDS: SPIRONOLACTONE 100 MG TAB PO SCH (09:48)
[2023-06-11] MEDS: metFORMIN HCL 500 MG TAB PO SCH ×2 (09:48→18:21)
[2023-06-11] MEDS: FLUTICASONE/VILANTEROL 200/25MCG 14 PUFFS/INHALER INH SCH (09:49)
[2023-06-11] MEDS: AMMONIUM LACTATE 12% LOTION 225 GM BTL EXT SCH ×2 (09:49→21:16)
[2023-06-11] MEDS: FUROSEMIDE 80 MG TAB PO SCH ×2 (09:51→16:20)
[2023-06-11] MEDS: NICOTINE 14 MG/24 HR PATCH TD SCH (09:51)
[2023-06-11] MEDS: FOLIC ACID 1 MG TAB PO SCH (09:52)
[2023-06-11] MEDS: UMECLIDINIUM BROMIDE 62.5MCG/BLISTER 7 PUFFS/INHALER INH SCH (09:52)
[2023-06-11] MEDS: PREGABALIN 150 MG CAP PO SCH ×2 (11:18→21:16)
[2023-06-11] MEDS: POLYETHYLENE (MIRALAX) 17 GM PACK PO PRN ×2 (13:07→21:15)
[2023-06-11] MEDS ORDERED: LORazepam 0.5 MG TAB PO PRN (18:48)
[2023-06-11] MEDS: MELATONIN 3 MG TAB PO PRN (21:16)
[2023-06-11] MEDS: diphenhydrAMINE Capsule 25 MG CAP PO PRN (21:16)
[2023-06-11] MEDS: FLUoxetine HCL 20 MG CAP PO SCH (21:21)
[2023-06-12] MEDS: MoRPHine SULFATE 2 MG/ML CARP IV PRN ×3 (00:51→15:06)
[2023-06-12] MEDS ORDERED: VANCOMYCIN LEVEL ONE (03:30)
[2023-06-12 04:07] LABS: Hematocrit (blood only) 37.3 % (42.0-52.0); Hemoglobin 12.3 g/dl (14.0-18.0); Mean Corpuscular Hemoglobin 26.4 pg (25.0-34.0); Mean Platelet Volume 9.9 fL (9.4-12.4); Platelet Count 229 K/uL (130-400); RDW Coefficient of Variation 15.3 % (11.5-14.5); RDW Standard Deviation 44.1 fL (36.4-46.3); Red Blood Count 4.66 M/uL (4.70-6.10); White Blood Count 6.51 K/ul (4.8-10.8)
[2023-06-12 04:23] LABS: BUN Creatinine Ratio 22.8 (10-20); C Reactive Protein 10.69 mg/dl (0-0.5); Calcium 10.2 mg/dl (8.6-10.3); Creatinine Clr Calc Pharmacy 113.3 ml/min; Est GFR (African American) 112.8 ml/min; Est GFR (Non-African American) 97.3 ml/min
[2023-06-12] MEDS: CEFEPIME 2,000 MG in SYRINGE 0 ML IV SCH ×2 (05:15→16:47)
[2023-06-12] MEDS: VANCOMYCIN HCL 1,250 MG in SODIUM CHLORIDE 0.9% 250 ML IV SCH ×2 (05:15→15:07)
[2023-06-12] MEDS: oxyCODONE HCL IR 5 MG TAB (IMMEDIATE RELEASE) PO PRN ×3 (05:20→21:22)
--- NOTE | 2023-06-12 07:29 | Pharmacy Report ---
Pharmacy PK ABX Note - Date of Service June 12, 2023 - Assessment and Plan Assessment Patient started on Vancomycin for MRSA wound infection in right leg. Patient remains afebrile w/ no leukocytosis. Renal function stable. Day #9 of Vancomycin therapy. Right leg culture growing MRSA and Alcaligenes faecalis, left leg culture growing Corynebacterium species. ID consulted. Plan Vancomycin * Current regimen: 1250 mg IV every 12 hours * Trough level obtained 06/12/23 resulted as 18.1 mcg/mL. This is predicted to achieve target AUC/CONNIE of 400-600 mg/L.hr * Predicted AUC at steady state: 526 mg/L.hr * Continue 1250 mg IV every 12 hours * Will repeat level in the next 48-72 hours if therapy is continued and/or change in patient clinical status Cefepime * 2 g IV q12h - no concern of osteomyelitis at this time, dosing appropriate. May consider increasing to q8h if no improvement. Pharmacy will continue to follow and will adjust dose/frequency as necessary. Thank you. Pharmacy has transitioned to AUC monitoring for vancomycin. AUC/CONNIE is the preferred PK/PD target and is associated with decreased risk of nephrotoxicity compared to traditional trough targets.
[2023-06-12] MEDS: HEPARIN 100 UNIT/ML 5ML FLUSH FLUSH PRN ×2 (08:12→16:47)
[2023-06-12] MEDS: INSULIN ASPART PER UNIT CHARGE SC SCH ×4 (09:50→21:26)
[2023-06-12] MEDS: LANTUS PER UNIT CHARGE SQ SCH ×2 (09:50→21:42)
[2023-06-12] MEDS: POLYETHYLENE (MIRALAX) 17 GM PACK PO PRN (09:51)
[2023-06-12] MEDS: metFORMIN HCL 500 MG TAB PO SCH ×2 (09:52→18:00)
[2023-06-12] MEDS: ATORVASTATIN 40 MG TAB PO SCH (09:53)
[2023-06-12] MEDS: AMMONIUM LACTATE 12% LOTION 225 GM BTL EXT SCH ×2 (09:53→21:24)
[2023-06-12] MEDS: APIXABAN 5 MG TABLET PO SCH ×2 (09:53→21:44)
[2023-06-12] MEDS: CLOTRIMAZOLE 1% CR 15 GM TUBE EXT SCH ×2 (09:54→21:25)
[2023-06-12] MEDS: FLUTICASONE/VILANTEROL 200/25MCG 14 PUFFS/INHALER INH SCH (09:54)
[2023-06-12] MEDS: busPIRone 15 MG TAB PO SCH ×2 (09:54→21:45)
[2023-06-12] MEDS: FUROSEMIDE 80 MG TAB PO SCH ×2 (09:55→16:48)
[2023-06-12] MEDS: FOLIC ACID 1 MG TAB PO SCH (09:55)
[2023-06-12] MEDS: MONTELUKAST SODIUM 10 MG TABLET PO SCH (09:55)
[2023-06-12] MEDS: NICOTINE 14 MG/24 HR PATCH TD SCH (09:55)
[2023-06-12] MEDS: PANTOprazole 40 MG TAB PO SCH ×2 (09:56→21:43)
[2023-06-12] MEDS: SPIRONOLACTONE 100 MG TAB PO SCH (09:57)
[2023-06-12] MEDS: UMECLIDINIUM BROMIDE 62.5MCG/BLISTER 7 PUFFS/INHALER INH SCH (09:57)
[2023-06-12] MEDS: PREGABALIN 150 MG CAP PO SCH ×2 (09:57→21:23)
--- NOTE | 2023-06-12 15:31 | Infectious Disease Consult ---
Date of Service June 12, 2023 Telehealth Information I performed this visit using a real-time telehealth connection between my location and the patients location ([facility]). After connecting through interactive tele-video, patient was identified by name and date of and/or wristband check.Patient (or authorized healthcare parts representative) was informed that this was a telemedicine visit and it was being conducted confidentially over secure lines. My office door was closed and no one else was present in the room with me.Patient (or authorized healthcare parts representative) provided consent to proceed with the visit, expressed an understanding of privacy and security of the telemedicine visit, and gave permission to have a hospital parts representative in the room in order to assist with the visit and to conduct portions of the visit, as needed. I informed the patient (or authorized healthcare parts representative) that I reviewed their record and presented the opportunity for them to ask any questions regarding the visit today. The patient agreed to participate. Assessment & Plan (1) Chronic cutaneous venous stasis ulcer: (2) Recurrent cellulitis of lower extremity: Plan: Assessment: Recurrent cellulitis of LE b/l Chronic venous stasis ulcers on legs Hx of obesity, COPD, DM2, DVT on eliquis Recommendation: - Continue cefepime 2 gm iv q12 hours to complete total 14 days, ending on 06/18/23 - May get midline or picc for cefepime as outpatient - May switch vancomycin iv to linezolid 600 mg po bid to end on 06/18/23 as well - I do not think the issue is the duration of abx therapy as total 2 weeks of abx is sufficient for skin and soft tissue infection. I am more concerned about wound care. The patient takes care of the wound on his own w/o being seen at wound care. I strongly recommend close f/u w/ wound care. Also, I wonder if vascular needs to be involved to see if there is anything can be done to improve venous stasis, w/c seems to be driving the chronic wounds. - ID signing off. More than 50% of [id number] visit was spent counseling and coordinating care pertaining to the patient's infection diagnosis, additional work-up, and treatment option(s) as well as potential adverse events of the treatment. History of Present Illness History of Present Illness This is a 48 y/o male w/ w/ hx of COPD, DM2, DVT on eliquis, chronic venous stasis, and LE ulcers b/l, who presented to [facility] for purulent drainage and tenderness on LE b/l. He was recently hospitalized at [facility] in early April for the same issue and discharged on cipro and linezolid, completing total 14 days of abx therapy. The patient felt that the infection was gone w/ the abx therapy. However, about a week after completion of cipro and linezolid, he started developing malodorous discharge from ulcers w/ pain and tenderness on both LE again. He also has some fever/chills. A new lesion opened up in the ankle area that was not there back in 04/2023. No fever or chills or leukocytosis on admission. He currently feels better on cefepime and vancomycin iv. ID was called for abx recommendation. He reports improved pain and discharge on legs b/l. Denies f/c, n/v, abd pain, diarrhea, coughing, sob, cp, or urinary symptoms. The patient states that he does NOT follow up w/ wound care regularly: "I do the wound care myself." Allergies Allergy/AdvReac Type Severity Reaction Status Date / Time peas Allergy Severe Anaphylaxis Verified 06/04/23 18:32 tuna oil Allergy Severe Anaphylaxis Verified 06/04/23 18:32 to "tuna" sulfamethoxazole Allergy Intermediate hives Verified 06/04/23 18:32 trimethoprim Allergy Intermediate hives Verified 06/04/23 18:32 Home Medications Medication Instructions Recorded Confirmed Type albuterol sulfate 90 mcg/actuation 1 puff inhalation Q6H PRN 05/09/18 06/04/23 History aerosol inhaler (Ventolin HFA) Shortness Of Breath folic acid 1 mg tablet 1 mg PO QAM 05/09/18 06/04/23 History omeprazole 20 mg capsule,delayed 20 mg PO BID 05/09/18 06/04/23 History release diphenhydramine HCl 25 mg capsule 25 mg PO Q6H PRN Itching 10/23/19 06/04/23 History (Benadryl) furosemide 80 mg tablet 80 mg PO BID17 10/23/19 06/04/23 History atorvastatin 10 mg tablet 40 mg PO QAM 06/05/20 06/04/23 History multivitamin 1 tab PO QAM 06/05/20 06/04/23 History spironolactone 50 mg tablet 100 mg PO QAM 06/05/20 06/04/23 History buspirone 15 mg tablet 15 mg PO BID 10/02/22 06/04/23 History fluoxetine 20 mg capsule 20 mg PO HS 10/02/22 06/04/23 History fluticasone 500 mcg-salmeterol 50 1 inh inhalation BID 10/02/22 06/04/23 History mcg/dose blistr powdr for inhalation metformin 1,000 mg tablet 1,000 mg PO BID 10/02/22 06/04/23 History montelukast 10 mg tablet 10 mg PO DAILY 10/02/22 06/04/23 History apixaban 5 mg tablet (Eliquis) 5 mg PO BID #60 tabs 10/04/22 06/04/23 Rx ammonium lactate 5 % lotion 1 applic EXT BID #226 grams 10/08/22 06/04/23 Rx (Lac-Hydrin Five) hydroxyzine HCl 10 mg tablet 10 mg PO Q8H PRN Itching 10/29/22 06/04/23 History tiotropium bromide 2.5 2 inh inhalation DAILY 10/29/22 06/04/23 History mcg/actuation mist for inhalation (Spiriva Respimat) white petrolatum-mineral oil 1 applic EXT TID PRN Skin 10/29/22 06/04/23 History topical cream (Dermacerin topical Irritation cream) oxycodone-acetaminophen 5 mg-325 1 tab PO Q8H PRN pain, severe #18 01/17/23 06/04/23 Rx mg tablet tabs clotrimazole 1 % topical cream 1 applic EXT BID #45 grams 01/18/23 06/04/23 Rx erythromycin 5 mg/gram (0.5 %) eye 1 applic ophthalmic (eye) QID #3.5 02/10/23 06/04/23 Rx ointment grams pregabalin 150 mg capsule 150 mg PO BID 06/04/23 06/04/23 History Patient History Medical History (Updated 06/12/23 @ 15:29 by Kristine Sinha MD) Anxiety and depression Asthma USED RESCUE INHALER TODAY Blood clotting disorder ? NAME Cellulitis BILAT LEGS (WRAPS LEGS/DRY CLOTH) CURRENTLY HAS SOME OPEN WOUNDS>GOES TO WOUND CLINIC/[place] Chronic deep vein thrombosis (DVT) 2018 (HOSPITALIZED AT [facility]) Chronic narcotic use Chronic ulcer of lower extremity RT LEG ONLY OPEN WOUND AT THIS TIME Chronic venous stasis dermatitis of both lower extremities Chronic wound Cirrhosis Diabetes mellitus, type 2 GERD (gastroesophageal reflux disease) History of ETOH abuse QUIT 2019 HTN (hypertension) Hyperlipidemia Pulmonary embolism 13 YEARS AGO ? DETAILS Pulmonary nodule CT chest 04/12/18 - 4 mm RUL nodule, f/u 12 months Tobacco abuse Type 2 diabetes mellitus Surgical History History of anesthesia reaction WITH A-PORT INSERTION, WOKE UP IN MIDDLE OF PROCEDURE History of vascular access device APORT IN RT CHEST (IN PLACE) [place] teeth removed Family History Father ETOH abuse Cirrhosis Mother Hypercoagulable state Prothrombin Factor II Mutation, 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, boderline hyperhomocystemia Social History Smoking Status: Current every day smoker Tobacco Type: Cigarettes Cigarettes Per Day: 3; Second Hand Exposure: Yes; Do You Dip or Chew Tobacco: No; Tobacco Cessation Education Requested by Patient: Yes Hx Alcohol Use: No Hx Substance Use: No Preferred Language: Ukrainian Communication Ability: Effective Visual Impairment: No Limitations Hearing Ability: Normal Activity Manager Required: No Beliefs That Will Affect Care: None marital status: Current Living Situation: Alone How many Children do You have: 0 Other Information That Helps Us Care for You: No Feels Safe at Home: Yes Safety Concerns: Feels Safe At This Time Assistive Devices: Brace/Splint/Immobilizer Review of Systems as above and all others negative Physical Exam Neuro: awake, alert, oriented x3 Gen: no aucte distress Ext: patient deferred: "they have just wrapped my legs." Results & Data Vital Signs (Past 12 Hours) Vital Signs Temp Pulse Resp BP Pulse Ox O2 Del Method 06/12/23 08:00 Room Air 06/12/23 11:45 36.8 C 69 16 117/76 95 Room Air 06/12/23 08:12 36.6 C 62 16 121/79 94 Room Air Laboratory Results WBC 6.51K H 12.3 Plt 229K Cr 0.92 LFT unremarkable CRP 2.52 Wound cx (06/04/23): MRSA (R to clinda, oxa, bact; S to dapto, rif, tetra, vanco), Alcaligenes faecalis (R to cipro; I to lvq; S to cefep, ceftaz, gent, eladio, zosyn, tobra, bact) L leg cx (06/04): Corynebacterium sp Blood cx ( 06/04): NG XR of ankle: Left:No acute bony abnormality is identified. Soft tissue edema with wounds as above. Right: 1. No acute bony abnormality is identified. Soft tissue edema with wounds suggested along the dorsal and medial aspect of the distal calf. Diagnostic Findings pictures of the leg wound on EMR reviewed Medications Administered Cefepime and vancomycin iv
[2023-06-12] MEDS: MAGNESIUM HYDROXIDE SUSP 30 ML UDC PO PRN (16:35)
[2023-06-12] MEDS ORDERED: ALTEPLASE, RECOMBINANT 1 MG/ML 2ML VIAL INSTIL ONE ×2 (17:00→17:07)
--- NOTE | 2023-06-12 17:16 | Hospitalist Progress Note ---
Date of Service June 12, 2023 Assessment & Plan (1) Chronic wound: (2) Venous ulcers of both lower extremities: (3) Tobacco abuse: (4) COPD (chronic obstructive pulmonary disease): (5) Depression: (6) Type 2 diabetes mellitus: Plan Pt is a 48yoM with Hx of multiple hospitalizations, DVT on Eliquis, COPD, DMII, H/O Chronic venous ulcers in the bilateral lower extremities who presented with purulent yellow drainage and tenderness in lower extremities. Chronic B/L LE infected wounds: Venous ulcers of both lower extremities: Peripheral neuropathy: Hx of Chronic venous ulcers, now with purulent yellow drainage and tenderness -Left Ankle xray noted no acute bony abnormality but noted soft tissue edema -Right Ankle xray: noted no acute bony abnormality but noted soft tissue edema with wounds suggested along the dorsal and medial aspect of the distal calf. Blood cultures x2 NGTD Wound culture R leg wound growing MRSA and Alcaligenes faecalis -on vancomycin (MRSA sensitive) and cefepime (A. faecalis sensitive) L leg wound growing Corynebacterium, no sensitivities provided ID has been consulted for further antibiotic recommendations -recommending continuing with IV Cefepime 2g q12 hours for 14 days, ending on 06/18 -states can switch to PO Linezolid 600mg BID from IV Vancomycin, ending on 06/18 as well -wound care mainstay of infection control, recommending wound care referral, possible Vascular consult for assistance with improving venous stasis. Continue wound care and pain control -wound care nurse consult placed -vascular surgery consult placed Needs orthotics- has orthotic consult in Mood Disorder Currently on hydroxyzine, buspar and Prozac. Pt requesting Ativan, had a dose given the day prior Also currently on narcotics (morphine and oxycodone) Cautious use of benzos with narcotics DM II Chronic stable Last A1c 05/19/2023; 6.7 Hold home metformin Basal/bolus insulin while hospitalized H/O DVT On Eliquis HLD On Atorvastatin Tobacco abuse Smokes 1/2 pack/day cigarettes Patient states that he is trying to quit smoking Counseled to quit smoking Continue nicotine patch COPD Not in exacerbation Continue home inhalers Diet: DMII DVT Px: on Eliquis Disposition: PT/OT orders placed. Pt will need IV abx/PO Linezolid (can be costly) for discharge before 06/18 which is the last day of treatment required. Admission and Anticipated Discharge Date Admission Date: June 04, 2023 Subjective Pt seen earlier in the day. Was requesting Ativan, stating that his anxiety is through the roof. Received a dose the day before. Currently on narcotics (morphine and oxycodone) as well as hydroxyzine, buspar and Prozac. Also concerned about his bowel movements. Has been taking miralax daily. Review of Systems Review of Systems: All systems reviewed & are unremarkable except as noted in Subjective Physical Exam Physical Exam: General: Alert, oriented. No acute distress Skin: No noted rashes or bruises Psych: Appropriate mood and affect Neuro: No gross deficits HEENT: NC/AT CV: RRR, Resp: no increased effort of breathing. 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
[2023-06-12] MEDS: ONDANSETRON INJ 2 MG/ML 2 ML VIAL IV PRN (19:36)
[2023-06-12] MEDS ORDERED: LACTULOSE SYRUP 30 GM/45 ML UDP PO STA (19:45)
[2023-06-12] MEDS: FLUoxetine HCL 20 MG CAP PO SCH (21:43)
[2023-06-13] MEDS: MoRPHine SULFATE 2 MG/ML CARP IV PRN ×4 (03:25→22:24)
[2023-06-13] MEDS: CEFEPIME 2,000 MG in SYRINGE 0 ML IV SCH ×2 (03:33→15:51)
[2023-06-13] MEDS: VANCOMYCIN HCL 1,250 MG in SODIUM CHLORIDE 0.9% 250 ML IV SCH ×2 (03:34→15:51)
[2023-06-13] MEDS: ONDANSETRON INJ 2 MG/ML 2 ML VIAL IV PRN (06:37)
[2023-06-13 07:34] LABS: Basophils # (auto) 0.06 K/uL (0.00-0.20); Basophils % (auto) 0.8 %; Eosinophils # (auto) 0.09 K/uL (0.00-0.50); Eosinophils % (auto) 1.2 %; Hemoglobin 12.3 g/dl (14.0-18.0); Immature Granulocytes # (auto) 0.03 K/uL (0.01-0.20); Immature Granulocytes % (auto) 0.4 %; Lymphocytes # (auto) 1.07 K/uL (1.20-3.40); Lymphocytes % (auto) 14.2 %; Mean Corpuscular Hemoglobin 26.2 pg (25.0-34.0); Mean Corpuscular Hgb Conc 32.4 g/dL (32.0-36.0); Mean Corpuscular Volume 80.9 fL (80.0-100.0); Mean Platelet Volume 9.9 fL (9.4-12.4); Monocytes # (auto) 0.38 K/uL (0.11-0.59); Neutrophils % (auto) 78.4 %; Platelet Count 243 K/uL (130-400); RDW Standard Deviation 43.9 fL (36.4-46.3); White Blood Count 7.53 K/ul (4.8-10.8)
[2023-06-13] MEDS: oxyCODONE HCL IR 5 MG TAB (IMMEDIATE RELEASE) PO PRN ×3 (07:35→20:29)
[2023-06-13] MEDS: PREGABALIN 150 MG CAP PO SCH ×2 (07:35→20:37)
[2023-06-13] MEDS: MONTELUKAST SODIUM 10 MG TABLET PO SCH (07:36)
[2023-06-13] MEDS: SPIRONOLACTONE 100 MG TAB PO SCH (07:36)
[2023-06-13] MEDS: PANTOprazole 40 MG TAB PO SCH ×2 (07:36→20:31)
[2023-06-13] MEDS: busPIRone 15 MG TAB PO SCH ×2 (07:37→20:30)
[2023-06-13] MEDS: FUROSEMIDE 80 MG TAB PO SCH ×2 (07:37→16:01)
[2023-06-13] MEDS: FOLIC ACID 1 MG TAB PO SCH (07:37)
[2023-06-13] MEDS: ATORVASTATIN 40 MG TAB PO SCH (07:38)
[2023-06-13] MEDS: APIXABAN 5 MG TABLET PO SCH ×2 (07:39→20:30)
[2023-06-13] MEDS: DOCUSATE SODIUM 100 MG CAP PO SCH ×2 (07:40→20:37)
[2023-06-13] MEDS: FLUTICASONE/VILANTEROL 200/25MCG 14 PUFFS/INHALER INH SCH (07:41)
[2023-06-13] MEDS: NICOTINE 14 MG/24 HR PATCH TD SCH (07:41)
[2023-06-13] MEDS: UMECLIDINIUM BROMIDE 62.5MCG/BLISTER 7 PUFFS/INHALER INH SCH (07:41)
[2023-06-13] MEDS: AMMONIUM LACTATE 12% LOTION 225 GM BTL EXT SCH ×2 (07:43→20:32)
[2023-06-13] MEDS: CLOTRIMAZOLE 1% CR 15 GM TUBE EXT SCH ×2 (07:43→20:33)
[2023-06-13 07:47] LABS: Albumin Globulin Ratio 0.8 (0.9-2); Albumin Level 4.1 gm/dl (3.4-5.0); BUN Creatinine Ratio 27.5 (10-20); Bilirubin,Total 0.5 mg/dl (0.2-1.0); Creatinine Clr Calc Pharmacy 131.5 ml/min; Est GFR (African American) 121.6 ml/min; Est GFR (Non-African American) 104.9 ml/min; Magnesium 2.3 mg/dl (1.7-2.4); Phosphorus 3.7 mg/dl (2.5-4.9); Potassium 4.2 mmol/L (3.5-5.1); Total Protein 9.1 gm/dl (6.0-8.3)
[2023-06-13] MEDS: LANTUS PER UNIT CHARGE SQ SCH ×2 (08:36→20:32)
[2023-06-13] MEDS: INSULIN ASPART PER UNIT CHARGE SC SCH ×4 (08:36→20:32)
[2023-06-13] MEDS: POLYETHYLENE (MIRALAX) 17 GM PACK PO PRN (08:36)
--- NOTE | 2023-06-13 09:45 | Consultation ---
Date of Consultation June 13, 2023 Assessment & Plan (1) Chronic cutaneous venous stasis ulcer: Pt with BLE chronic venous insufficiency d/t post thrombotic syndrome and recurrent ulcerations. He is particularly prone to infections of these d/t his DMII. Pt has not been compliant with recommended treatments and prevention strategies. Unfortunately, there are no surgical treatments available to reduce his venous congestion. Recommended to pt that he be seen regularly by a wound clinic of his choice for his best chance at complete healing. Also advised that pt begin conservative therapy with elevation of the legs, and daily wearing of compression stockings to help in preventing ulcerations. Will have pt measured for new compression stockings prior to discharge(pt states he does not have any at home). Wound treatments per wound clinic. Please call if needed. History of Present Illness Reason for Consultation: venous stasis Attending Physician: Carmen Stoll MD History of Present Illness 48 yo m with multiple medical problems, including hx of DVT/PE and post thrombotic syndrome, chronic venous stasis and ulcers, COPD, GERD, depression, anxiety, liver cirrhosis, DMII, pulmonary nodule, hypercholesterolemia, neuropathy, admitted with infected BLE venous ulcerations, seen in consultation today for venous stasis. Pt states has had multiple DVT in past, and is on chronic AC with eliquis. Is consistent taking his eliquis. States he will be fine for a long time, then develops these lower leg ulcers which periodically become infected requiring IV abx. Pt has gone to wound clinics in past, but not for a long time, as he has disagreed with their treatments. Does not wear compression stockings regularly, despite being advised to do so in past. had severe pain, redness and drainage from his leg wounds, so came to [facility]. Denies SCOTT, fever presently, chest pain, SOB, abd pain, N/V, rest pain, cla udication, other complaints. Allergies Allergy/AdvReac Type Severity Reaction Status Date / Time peas Allergy Severe Anaphylaxis Verified 06/04/23 18:32 tuna oil Allergy Severe Anaphylaxis Verified 06/04/23 18:32 to "tuna" sulfamethoxazole Allergy Intermediate hives Verified 06/04/23 18:32 trimethoprim Allergy Intermediate hives Verified 06/04/23 18:32 Home Medications Medication Instructions Recorded Confirmed Type albuterol sulfate 90 mcg/actuation 1 puff inhalation Q6H PRN 05/09/18 06/04/23 History aerosol inhaler (Ventolin HFA) Shortness Of Breath folic acid 1 mg tablet 1 mg PO QAM 05/09/18 06/04/23 History omeprazole 20 mg capsule,delayed 20 mg PO BID 05/09/18 06/04/23 History release diphenhydramine HCl 25 mg capsule 25 mg PO Q6H PRN Itching 10/23/19 06/04/23 History (Benadryl) furosemide 80 mg tablet 80 mg PO BID17 10/23/19 06/04/23 History atorvastatin 10 mg tablet 40 mg PO QAM 06/05/20 06/04/23 History multivitamin 1 tab PO QAM 06/05/20 06/04/23 History spironolactone 50 mg tablet 100 mg PO QAM 06/05/20 06/04/23 History buspirone 15 mg tablet 15 mg PO BID 10/02/22 06/04/23 History fluoxetine 20 mg capsule 20 mg PO HS 10/02/22 06/04/23 History fluticasone 500 mcg-salmeterol 50 1 inh inhalation BID 10/02/22 06/04/23 History mcg/dose blistr powdr for inhalation metformin 1,000 mg tablet 1,000 mg PO BID 10/02/22 06/04/23 History montelukast 10 mg tablet 10 mg PO DAILY 10/02/22 06/04/23 History apixaban 5 mg tablet (Eliquis) 5 mg PO BID #60 tabs 10/04/22 06/04/23 Rx ammonium lactate 5 % lotion 1 applic EXT BID #226 grams 10/08/22 06/04/23 Rx (Lac-Hydrin Five) hydroxyzine HCl 10 mg tablet 10 mg PO Q8H PRN Itching 10/29/22 06/04/23 History tiotropium bromide 2.5 2 inh inhalation DAILY 10/29/22 06/04/23 History mcg/actuation mist for inhalation (Spiriva Respimat) white petrolatum-mineral oil 1 applic EXT TID PRN Skin 10/29/22 06/04/23 History topical cream (Dermacerin topical Irritation cream) oxycodone-acetaminophen 5 mg-325 1 tab PO Q8H PRN pain, severe #18 01/17/23 06/04/23 Rx mg tablet tabs clotrimazole 1 % topical cream 1 applic EXT BID #45 grams 01/18/23 06/04/23 Rx erythromycin 5 mg/gram (0.5 %) eye 1 applic ophthalmic (eye) QID #3.5 02/10/23 06/04/23 Rx ointment grams pregabalin 150 mg capsule 150 mg PO BID 06/04/23 06/04/23 History Patient History Medical History Anxiety and depression Asthma USED RESCUE INHALER TODAY Blood clotting disorder ? NAME Cellulitis BILAT LEGS (WRAPS LEGS/DRY CLOTH) CURRENTLY HAS SOME OPEN WOUNDS>GOES TO WOUND CLINIC/[place] Chronic deep vein thrombosis (DVT) 2017 (HOSPITALIZED AT [facility]) Chronic narcotic use Chronic ulcer of lower extremity RT LEG ONLY OPEN WOUND AT THIS TIME Chronic venous stasis dermatitis of both lower extremities Chronic wound Cirrhosis Diabetes mellitus, type 2 GERD (gastroesophageal reflux disease) History of ETOH abuse QUIT 2018 HTN (hypertension) Hyperlipidemia Pulmonary embolism 13 YEARS AGO ? DETAILS Pulmonary nodule CT chest 04/12/18 - 4 mm RUL nodule, f/u 12 months Tobacco abuse Type 2 diabetes mellitus Surgical History History of anesthesia reaction WITH A-PORT INSERTION, WOKE UP IN MIDDLE OF PROCEDURE History of vascular access device APORT IN RT CHEST (IN PLACE) [place] teeth removed Family History Father ETOH abuse Cirrhosis Mother Hypercoagulable state Prothrombin Factor II Mutation, 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, boderline hyperhomocystemia Social History Smoking Status: Current every day smoker Tobacco Type: Cigarettes Cigarettes Per Day: 3; Second Hand Exposure: No; Do You Dip or Chew Tobacco: No; Tobacco Cessation Education Requested by Patient: Yes Hx Alcohol Use: No Hx Substance Use: No Preferred Language: Lithuanian Communication Ability: Effective Visual Impairment: No Limitations Hearing Ability: Normal Parachute Packer Required: No Beliefs That Will Affect Care: None marital status: Current Living Situation: Alone How many Children do You have: 0 Other Information That Helps Us Care for You: No Feels Safe at Home: Yes Safety Concerns: Feels Safe At This Time Assistive Devices: Brace/Splint/Immobilizer Review of Systems Review of Systems: All systems reviewed & are unremarkable except as noted in HPI & below Physical Exam Constitutional: WD/WN, vitals as above healthy appearing ENMT: Ears: no hearing impairment Neck: trachea midline Respiratory: normal respiratory effort, lungs clear to auscultation Auscultation: + diminished lung sounds Cardiovascular: Rate/Rhythm: regular rate and regular rhythm Vessels: femoral pulses present, posterior tibial pulses present, dorsalis pedis pulses present and radial pulses present; + abnormal peripheral pulses Extremities: normal capillary refill and + edema (+1) Gastrointestinal (Abdomen): Inspection/Auscultation: abdomen normal to inspection and normal bowel sounds Percussion/Palpation: abdomen soft; abdomen nontender Musculoskeletal: no cyanosis or clubbing, extremities motor strength 5/5 Skin: + ulcer (BLE lower legs, with slough and pink wound edges) BLE with severe hemosiderin deposits, scarring, and skin changes consistent with chronic venous insufficiency Neurologic: moves all extremities and awake; no focal motor deficits and not confused Psychiatric: A+Ox3, euthymic affect Results & Data Vital Signs (Past 12 Hours) Vital Signs Temp Pulse Resp BP BP Pulse Ox O2 Del Method 06/13/23 07:44 36.8 C 76 18 120/77 95 Room Air 06/13/23 04:00 36.9 C 77 18 122/78 92 Room Air 06/12/23 23:48 36.7 C 81 18 124/79 92 Room Air
--- NOTE | 2023-06-13 15:50 | Hospitalist Progress Note ---
Date of Service June 13, 2023 Assessment & Plan (1) Chronic wound: (2) Venous ulcers of both lower extremities: (3) Tobacco abuse: (4) COPD (chronic obstructive pulmonary disease): (5) Depression: (6) Type 2 diabetes mellitus: Plan Pt is a 48yoM with Hx of multiple hospitalizations, DVT on Eliquis, COPD, DMII, H/O Chronic venous ulcers in the bilateral lower extremities who presented with purulent yellow drainage and tenderness in lower extremities. Chronic B/L LE infected wounds: Venous ulcers of both lower extremities: Peripheral neuropathy: Hx of Chronic venous ulcers, now with purulent yellow drainage and tenderness -Left Ankle xray noted no acute bony abnormality but noted soft tissue edema -Right Ankle xray: noted no acute bony abnormality but noted soft tissue edema with wounds suggested along the dorsal and medial aspect of the distal calf. Blood cultures x2 NGTD Wound culture R leg wound growing MRSA and Alcaligenes faecalis -on vancomycin (MRSA sensitive) and cefepime (A. faecalis sensitive) L leg wound growing Corynebacterium, no sensitivities provided ID has been consulted for further antibiotic recommendations -recommending continuing with IV Cefepime 2g q12 hours for 14 days, ending on 06/18 -states can switch to PO Linezolid 600mg BID from IV Vancomycin, ending on 06/18 as well -wound care mainstay of infection control, recommending wound care referral, possible Vascular consult for assistance with improving venous stasis. Continue wound care and pain control -wound care nurse consult placed once more, last seen on 06/07. Recommended pcp f/u at that time for continued wound care. -vascular surgery consult placed- recommending leg elevation, compression stockings for discharge and wound care. Needs orthotics- has orthotic consult in Mood Disorder Currently on hydroxyzine, buspar and Prozac. Pt requesting Ativan, had a dose given the day prior Also currently on narcotics (morphine and oxycodone) Cautious use of benzos with narcotics DM II Chronic stable Last A1c 05/19/2023; 6.7 Hold home metformin Basal/bolus insulin while hospitalized H/O DVT On Eliquis HLD On Atorvastatin Tobacco abuse Smokes 1/2 pack/day cigarettes Patient states that he is trying to quit smoking Counseled to quit smoking Continue nicotine patch COPD Not in exacerbation Continue home inhalers Diet: DMII DVT Px: on Eliquis Disposition: Home tomorrow with IV Cefepime/PO Linezolid. Admission and Anticipated Discharge Date Admission Date: June 04, 2023 Subjective Pt seen. States he still needs daily bowel regimen. Anxiety controlled. Would like to go home tomorrow. Pain controlled. Review of Systems Review of Systems: All systems reviewed & are unremarkable except as noted in Subjective Physical Exam Physical Exam: General: Alert, oriented. No acute distress Skin: No noted rashes or bruises Psych: Appropriate mood and affect Neuro: No gross deficits HEENT: NC/AT CV: RRR, Resp: no increased effort of breathing. 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
[2023-06-13] MEDS: hydrOXYzine HCl 10 MG TAB PO PRN (16:02)
[2023-06-13] MEDS: HEPARIN 100 UNIT/ML 5ML FLUSH FLUSH PRN (17:28)
[2023-06-13] MEDS: FLUoxetine HCL 20 MG CAP PO SCH (20:31)
[2023-06-14] MEDS: VANCOMYCIN HCL 1,250 MG in SODIUM CHLORIDE 0.9% 250 ML IV SCH (05:05)
[2023-06-14] MEDS: CEFEPIME 2,000 MG in SYRINGE 0 ML IV SCH (05:06)
[2023-06-14] MEDS: MoRPHine SULFATE 2 MG/ML CARP IV PRN (06:38)
[2023-06-14 07:07] LABS: Basophils # (auto) 0.07 K/uL (0.00-0.20); Basophils % (auto) 1.3 %; Eosinophils # (auto) 0.18 K/uL (0.00-0.50); Eosinophils % (auto) 3.2 %; Hematocrit (blood only) 36.1 % (42.0-52.0); Hemoglobin 11.7 g/dl (14.0-18.0); Immature Granulocytes # (auto) 0.04 K/uL (0.01-0.20); Immature Granulocytes % (auto) 0.7 %; Lymphocytes # (auto) 1.43 K/uL (1.20-3.40); Lymphocytes % (auto) 25.6 %; Mean Corpuscular Hemoglobin 26.1 pg (25.0-34.0); Mean Corpuscular Hgb Conc 32.4 g/dL (32.0-36.0); Mean Corpuscular Volume 80.4 fL (80.0-100.0); Mean Platelet Volume 9.7 fL (9.4-12.4); Monocytes # (auto) 0.35 K/uL (0.11-0.59); Monocytes % (auto) 6.3 %; Neutrophils # (auto) 3.52 K/uL (1.40-6.50); Neutrophils % (auto) 62.9 %; Platelet Count 243 K/uL (130-400); RDW Coefficient of Variation 15.1 % (11.5-14.5); RDW Standard Deviation 43.9 fL (36.4-46.3); Red Blood Count 4.49 M/uL (4.70-6.10); White Blood Count 5.59 K/ul (4.8-10.8)
[2023-06-14 07:32] LABS: Albumin Globulin Ratio 0.8 (0.9-2); Albumin Level 3.8 gm/dl (3.4-5.0); BUN Creatinine Ratio 31.2 (10-20); Bilirubin,Total 0.5 mg/dl (0.2-1.0); Calcium 9.5 mg/dl (8.6-10.3); Creatinine Clr Calc Pharmacy 136.7 ml/min; Est GFR (African American) 123.5 ml/min; Est GFR (Non-African American) 106.6 ml/min; Globulin 4.6 gm/dl (2.5-4.0); Magnesium 2.2 mg/dl (1.7-2.4); Phosphorus 3.8 mg/dl (2.5-4.9); Potassium 4.1 mmol/L (3.5-5.1); Total Protein 8.4 gm/dl (6.0-8.3)
[2023-06-14] MEDS: FOLIC ACID 1 MG TAB PO SCH (09:28)
[2023-06-14] MEDS: SPIRONOLACTONE 100 MG TAB PO SCH (09:29)
[2023-06-14] MEDS: FUROSEMIDE 80 MG TAB PO SCH (09:29)
[2023-06-14] MEDS: APIXABAN 5 MG TABLET PO SCH (09:29)
[2023-06-14] MEDS: PANTOprazole 40 MG TAB PO SCH (09:29)
[2023-06-14] MEDS: busPIRone 15 MG TAB PO SCH (09:29)
[2023-06-14] MEDS: MONTELUKAST SODIUM 10 MG TABLET PO SCH (09:30)
[2023-06-14] MEDS: ATORVASTATIN 40 MG TAB PO SCH (09:30)
[2023-06-14] MEDS: CLOTRIMAZOLE 1% CR 15 GM TUBE EXT SCH (09:30)
[2023-06-14] MEDS: AMMONIUM LACTATE 12% LOTION 225 GM BTL EXT SCH (09:30)
[2023-06-14] MEDS: NICOTINE 14 MG/24 HR PATCH TD SCH (09:31)
[2023-06-14] MEDS: UMECLIDINIUM BROMIDE 62.5MCG/BLISTER 7 PUFFS/INHALER INH SCH (09:31)
[2023-06-14] MEDS: LANTUS PER UNIT CHARGE SQ SCH (09:32)
[2023-06-14] MEDS: INSULIN ASPART PER UNIT CHARGE SC SCH (09:32)
[2023-06-14] MEDS: FLUTICASONE/VILANTEROL 200/25MCG 14 PUFFS/INHALER INH SCH (09:33)
[2023-06-14] MEDS: DOCUSATE SODIUM 100 MG CAP PO SCH (09:36)
[2023-06-14] MEDS: oxyCODONE HCL IR 5 MG TAB (IMMEDIATE RELEASE) PO PRN (09:36)
[2023-06-14] MEDS: PREGABALIN 150 MG CAP PO SCH (09:36)
--- NOTE | 2023-06-14 10:37 | Discharge Summary ---
Discharge Summary Date of Service June 14, 2023 Notes For Next Care Provider Bilateral chronic wounds. RLE wound culture: growing MRSA and Alcaligenes faecalis. LLE wound culture: growing Corynebacterium, no sensitivities provided. Home with IV abx as below, cont. wound care Medication Changes From Visit IV Cefepime 2g q12 hours for 14 days (ending on 06/18), PO Linezolid 600mg BID for 14 days (ending on 06/18) Admission HPI Per Admitting Provider Pt has chronic venous ulcer Last week he stated that his left ankle wound started to become more painful and opened up with yellow drainage. Reports waking up with feeling hot and cold with decreased appetite. Documentable wounds on lower third of both anterior ankles with tenderness over surrounding skin of right lower leg and medial foot. He had a multiple recent inpatient hospitalizations including 10/29-11/03, 01/12-01/18, 02/03-02/10 for similar presentations. No leukocytosis, hypomagnesemia, hypo kalemic 3.3, no lactate elevation. Hgb 10.2, baseline 12-13, Mg+ 1.4, CP chronic elevation of 2.5 R ankle xray performed: 1. No acute bony abnormality is identified. 2. Soft tissue edema with wounds suggested along the dorsal and medial aspect of the distal calf. Left ankle xray performed: 1. No acute bony abnormality is identified. No osteomyelitis noted on either wound. Will treat venous ulcers with antibiotics, WOCN, pain control, and electrolyte replacement. PMH includes history of DVT (on Eliquis), HLD, current smoker, COPD, depression and non-insulin dependent diabetes mellitus type 2. Had a lengthy conversation with him regarding delayed wound healing related to continuation of tobacco use. For now, ED completed work-up for infection; patient does not appear toxic. Pt with chronic venous ulcers bilateral lower extremities presents with purulent yellow drainage and tenderness. Left ankle x-ray without osteomyelitis. Started on cefepime plus vancomycin and will await wound culture results including MRSA. Incidentally found hypomagnesemia 0.4, hyper-K 3.3. Noninsulin-dependent diabetic likely contributing to delayed wound healing. History of DVT on Eliquis and current smoker with COPD. WOCN consulted based on culture results re-involve infectious disease if necessary. Patient will be admitted for further evaluation and management. Please see A/P for further details. Admission Exam Per Admitting Provider Reports worsening of chronic leg wounds especially in the right foot with increased pain, slough and drainage over the past few days. Denied fever, chills, nausea or vomiting. Exam notable for wounds on lower third of both legs, tenderness over surrounding skin of right leg/foot, chronic skin changes with hyperpigmented/hypopigmented areas Labs notable for normal WBC, hemoglobin of 10.2 [was 13 in January], Potassium of 3.3, magnesium of 1.4, CRP of 2.52 [chronically elevated] X-rays of the ankle was noted soft tissue edema with wounds, no acute bony abnormality noted Continue IV Vanco and cefepime for now Follow-up infectious work-ups and wound culture sent by ER Wound care consult Counseled patient regarding smoking cessation. Nicotine replacement therapy for now Got repletion for hypokalemia. Monitor Principal Dx & Hospital Course #1 = Principal Diagnosis (1) Chronic wound: (2) Venous ulcers of both lower extremities: (3) Tobacco abuse: (4) COPD (chronic obstructive pulmonary disease): (5) Depression: (6) Type 2 diabetes mellitus: Plan Patient is a 48yoM with Hx of multiple hospitalizations, DVT on Eliquis, COPD, DMII, H/O Chronic venous ulcers in the bilateral lower extremities who presented with purulent yellow drainage and tenderness in lower extremities. Hx of Chronic venous ulcers, now with purulent yellow drainage and tenderness. Left Ankle xray noted no acute bony abnormality but noted soft tissue edema and Right Ankle xray: noted no acute bony abnormality but noted soft tissue edema with wounds suggested along the dorsal and medial aspect of the distal calf. Blood cultures x 2 with no growth to date. RLE wound culture: growing MRSA and Alcaligenes faecalis and LLE wound culture: growing Corynebacterium, no sensitivities provided. ID recommending continued antibiotic course of IV Cefepime 2g q12 hours and PO Linezolid 600mg BID for 14 days, ending on 06/18. Blood cultures negative to date. Evaluated by vascular surgery who recommends leg elevation, compression stockings for discharge. [place] completed teaching, coordinated by case management. Continue wound care and pain control. Orthotics consulted. Encouraged smoking cessation. Patient comfortable and hemodynamically stable at time of discharge. Discharge Exam Gen: WD/WN, NAD, laying in bed, A&Ox3 HEENT: Normocephalic, atraumatic, conjunctivae moist, sclerae anicteric, mucous membranes moist Lung: Clear to Auscultation bilaterally, no wheezes/rales/rhonchi Heart: Regular rate, regular rhythm, no murmurs, rubs, or gallops Abdomen: Soft, NT, ND +BS x 4 Extremities: no edema Skin: Warm, no rash Updated Medication List Medication Instructions Recorded Confirmed Type albuterol sulfate 90 mcg/actuation 1 puff inhalation Q6H PRN 05/09/18 06/04/23 History aerosol inhaler (Ventolin HFA) Shortness Of Breath folic acid 1 mg tablet 1 mg PO QAM 05/09/18 06/04/23 History omeprazole 20 mg capsule,delayed 20 mg PO BID 05/09/18 06/04/23 History release diphenhydramine HCl 25 mg capsule 25 mg PO Q6H PRN Itching 10/23/19 06/04/23 History (Benadryl) furosemide 80 mg tablet 80 mg PO BID17 10/23/19 06/04/23 History atorvastatin 10 mg tablet 40 mg PO QAM 06/05/20 06/04/23 History multivitamin 1 tab PO QAM 06/05/20 06/04/23 History spironolactone 50 mg tablet 100 mg PO QAM 06/05/20 06/04/23 History buspirone 15 mg tablet 15 mg PO BID 10/02/22 06/04/23 History fluoxetine 20 mg capsule 20 mg PO HS 10/02/22 06/04/23 History fluticasone 500 mcg-salmeterol 50 1 inh inhalation BID 10/02/22 06/04/23 History mcg/dose blistr powdr for inhalation metformin 1,000 mg tablet 1,000 mg PO BID 10/02/22 06/04/23 History montelukast 10 mg tablet 10 mg PO DAILY 10/02/22 06/04/23 History apixaban 5 mg tablet (Eliquis) 5 mg PO BID #60 tabs 10/04/22 06/04/23 Rx ammonium lactate 5 % lotion 1 applic EXT BID #226 grams 10/08/22 06/04/23 Rx (Lac-Hydrin Five) hydroxyzine HCl 10 mg tablet 10 mg PO Q8H PRN Itching 10/29/22 06/04/23 History tiotropium bromide 2.5 2 inh inhalation DAILY 10/29/22 06/04/23 History mcg/actuation mist for inhalation (Spiriva Respimat) white petrolatum-mineral oil 1 applic EXT TID PRN Skin 10/29/22 06/04/23 History topical cream (Dermacerin topical Irritation cream) clotrimazole 1 % topical cream 1 applic EXT BID #45 grams 01/18/23 06/04/23 Rx erythromycin 5 mg/gram (0.5 %) eye 1 applic ophthalmic (eye) QID #3.5 02/10/23 06/04/23 Rx ointment grams pregabalin 150 mg capsule 150 mg PO BID 06/04/23 06/04/23 History linezolid 600 mg tablet 600 mg PO BID #10 tabs 06/13/23 Rx blood-glucose meter (Accu-Chek #1 ea 06/14/23 Rx Guide Glucose Meter) cefepime 2 gram solution for 2 g IV Q12H #10 ea 06/14/23 Rx injection oxycodone-acetaminophen 5 mg-325 1 tab PO Q8H PRN pain, severe #15 06/14/23 Rx mg tablet tabs Hospital Stay Data Consultations 06/04/23 16:48 ED Decision to Admit Stat 06/09/23 09:14 Consult Infectious Diseases Routine 06/13/23 00:55 Consult Vascular Surgery Routine Pending Results Patient Have Any Pending Studies at Discharge: No Discharge Instructions Given to Patient (Per Discharging Provider) MEDICATION CHANGES: IV Cefepime 2g q12 hours for 14 days (ending on 06/18) PO Linezolid 600mg BID for 14 days (ending on 06/18) SUMMARY OF TEST RESULTS: Presented with bilateral chronic wounds. Left Ankle xray noted no acute bony abnormality but noted soft tissue edema Right Ankle xray noted no acute bony abnormality but noted soft tissue edema with wounds suggested along the dorsal and medial aspect of the distal calf RLE wound culture: growing MRSA and Alcaligenes faecalis LLE wound culture: growing Corynebacterium, no sensitivities provided Appreciate infectious disease recommendation, discharging on 2 week antibiotic course as above Continue wound care and pain control Vascular surgery recommends leg elevation, compression stockings for discharge PENDING TEST RESULTS: None RECOMMENDATIONS FOR FOLLOW-UP: Follow up with PCP as scheduled. Complete antibiotics in its entirety. Continue medication regimen as scheduled aside from changes noted above. OTHER INSTRUCTIONS: Seek medical attention if you have: * temperature above 101 * chest pain or trouble breathing * abdominal pain, nausea, vomiting * diarrhea, dark stools or bloody stools * any unanswered questions or concerns Call 911 if symptoms are severe. Please take good care of yourself. Call if you have any questions or problems. You can reach a [facility] hospitalist on duty at [facility] 24 hours a day by calling [phone]. Total Time Total Time Spent Total Time Spent (In Minutes): 65
== END 2023-06-14 12:12 | disposition home or self-care (01) | DRG 300 ==
LOC: ED 14:51 → 2N 17:17 → SUATTDRO 17:17 → 2N 21:45

== ENCOUNTER 2025-08-01 09:24 | Inpatient (IN) ==
[2025-08-01 10:58] LABS: Hematocrit (blood only) 41.7 % (42.0-52.0); Hemoglobin 13.5 g/dL (14.0-18.0); Immature Granulocytes # (auto) 0.03 K/uL (0.01-0.20); Immature Granulocytes % (auto) 0.4 %; Mean Corpuscular Hemoglobin 26.7 pg (25.0-34.0); Mean Corpuscular Volume 82.4 fL (80.0-100.0); Platelet Count 217 K/uL (130-400); RDW Standard Deviation 50.7 fL (36.4-46.3); Red Blood Count 5.06 M/uL (4.70-6.10); White Blood Count 8.07 K/ul (4.8-10.8)
[2025-08-01 11:17] LABS: Alanine Aminotransferase 14.0 U/L (7-52); Albumin Globulin Ratio 1.0 (0.9-2); Albumin Level 4.2 gm/dl (3.4-5.0); Alkaline Phosphatase 66.0 U/L (34-104); Anion Gap 7.0 (3-11); Bilirubin,Total 0.6 mg/dl (0.2-1.0); Blood Urea Nitrogen 9.0 mg/dl (6-23); Calcium 9.4 mg/dl (8.6-10.3); Carbon Dioxide 27.0 mmol/L (21-32); Chloride 105.0 mmol/L (98-107); Creatinine Clr Calc Pharmacy 130.3 ml/min; Globulin 4.2 gm/dl (2.5-4.0); Glucose 180.0 mg/dl (70-99(Fasting)); Potassium 3.8 mmol/L (3.5-5.1); Sodium 139.0 mmol/L (136-145); Total Protein 8.4 gm/dl (6.0-8.3)
[2025-08-01 11:57] LABS: INR 1.0 (0.9-1.1); Prothrombin Time 10.7 Seconds (9.0-12.0)
[2025-08-01] MEDS ORDERED: VANCOMYCIN CONSULT ACTIVE PRN (12:32)
--- NOTE | 2025-08-01 12:52 | Emergency Department Note ---
Impression & Plan Open wound of right ankle, Chronic ulcer of lower extremity, Type 2 diabetes mellitus ED Provider Note NAME: DIAZ PEREZ AGE: 50 SEX: M : 1975 ARRIVES VIA: Walk-In INFORMANT: Patient ED PROVIDER(S): Jalen Baeza MD CHIEF COMPLAINT: Right ankle ulcer PLAN: Disposition: Admit MEDICAL DECISION MAKING: The patient is a pleasant 50-year-old gentleman with a past medical history of DVT on Eliquis, History of chronic venous stasis ulcers, recurrent cellulitis of lower extremities, MRSA infection, COPD, type 2 diabetes who presents to the emergency department for evaluation of persistence of right ankle ulceration which she reports newly opened approximately 10 days ago where he reports he was unable to see his primary care provider and presented to [facility] yesterday. He reports they did blood work and x-rays but feels that his ulcers are infected and feels he needs antibiotics. He denies any fevers but reports malaise and poor oral intake/appetite which she reports occurs when he is developing a severe infection. Patient reports that he was referred to podiatry following his [facility] visit but cannot be seen until next week. Lab work from [facility] was reviewed and demonstrated no leukocytosis. CRP was mildly elevated. X-ray suggested chronic osteomyelitis. On evaluation the patient is no acute distress, afebrile with stable vital signs. He appears clinically dry. Patient does have chronic venous stasis changes of bilateral lower extremities. Patient does have a superficial right lateral malleolus ulcer and a penetrating unstageable right medial malleolus ulcer without overt discharge, surrounding erythema or warmth. There is no crepitus. WBC and platelets within normal limits. H/H similar to prior values. Chemistry without metabolic acidosis. LFTs unremarkable. Procalcitonin is not elevated. ESR is elevated at 72 and CRP at 1.52, nonspecific. Patient does agree with plan for admission for further management. Given x-rays completed at [facility] yesterday will defer additional imaging to admitting team. Empiric treatment for wound infection/acute on chronic osteomyelitis initiated with IV cefepime and IV vancomycin per prior infectious disease recommendations. Wound culture from ulcer of the medial malleolus of the right ankle was sent. Case was discussed with Linda Jimenez, [facility] for [facility]. Further management per admitting team. Triage Nursing notes reviewed and agree them. Vital Signs: reviewed Differential diagnosis: Cellulitis, abscess, MRSA infection, DVT, necrotizing fasciitis, dermatitis, drug eruption, allergic reaction, as well as other pathologies. ER treatment provided: See below. Diagnostics interpreted by me: Cardiac Monitoring: An order for continuous cardiac monitoring was placed and demonstrated normal sinus rhythm, 90 bpm, no ectopy. Laboratory studies: See below Imaging studies: See below Consultation(s): Case was discussed with Linda Jimenez [facility] will [facility] the patient for admission. HPI: Per MDM. ROS: See above HPI for pertinent positives & negatives. A total of 10 systems reviewed and were otherwise negative. VITALS:See Below PHYSICAL EXAMINATION: GENERAL: Awake, alert, in no distress HENT: Normocephalic, atraumatic. Oropharynx with dry mucous membranes and otherwise unremarkable. EYES: Normal conjunctiva. Sclera non-icteric. NECK: Supple. No nuchal rigidity. FROM. No JVD. RESPIRATORY: Clear to auscultation. CARDIAC: Regular rate, normal rhythm. Extremities warm and well perfused. Pulses equal. ABDOMEN: Soft, non-distended. No tenderness to palpation. No rebound or guarding. No masses. MUSCULOSKELETAL: Chest examination reveals no tenderness. The back is symmetrical on inspection without obvious abnormality. There is no CVA tenderness to palpation. No joint edema. LOWER EXTREMITIES: Calves are equal size bilaterally and non-tender. No edema. Chronic venous stasis changes of bilateral lower extremities. Patient does have a superficial right lateral malleolus ulcer and a penetrating unstageable right medial malleolus ulcer without overt discharge, surrounding erythema or warmth. There is no crepitus. NEURO: Normal sensorium. No sensory or motor deficits noted. SKIN: No rash or jaundice noted. Jalen Baeza MD Past Med/Surg History Problem List (Updated 08/01/25 @ 23:40 by Jalen Baeza MD) Chronic pain History of DVT (deep vein thrombosis) Open wound of right ankle (Acute) Recurrent cellulitis of lower extremity Chronic cutaneous venous stasis ulcer Chronic wound Conjunctivitis (Acute) Bacterial conjunctivitis Wound infection (Acute) COPD exacerbation (Acute) Cellulitis of left leg (Acute) Hypoalbuminemia Open wound of both lower extremities with complication (Acute) Depression with anxiety Venous ulcers of both lower extremities (Acute) Chronic deep vein thrombosis (DVT) (Chronic) Chronic narcotic use (Chronic) MRSA (methicillin resistant Staphylococcus aureus) infection (Chronic) Anxiety (Chronic) Hypercoagulable state (Chronic) Prothrombin Factor II Mutation, 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, borderline hyperhomocystemia Tobacco abuse (Chronic) GERD (gastroesophageal reflux disease) (Chronic) Venous insufficiency (chronic) (peripheral) (Chronic) COPD (chronic obstructive pulmonary disease) (Chronic) Depression (Chronic) COPD (chronic obstructive pulmonary disease) (Chronic) DVT prophylaxis History of MRSA infection (Acute) 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 DETAILS Blood clotting disorder ? NAME Hyperlipidemia Asthma USED RESCUE INHALER TODAY Anxiety and depression Chronic narcotic use HTN (hypertension) GERD (gastroesophageal reflux disease) Chronic deep vein thrombosis (DVT) 2018 (HOSPITALIZED AT [facility]) Tobacco abuse Cellulitis BILAT LEGS (WRAPS LEGS/DRY CLOTH) CURRENTLY HAS SOME OPEN WOUNDS>GOES TO WOUND CLINIC/MOSELLE Surgical History History of anesthesia reaction WITH A-PORT INSERTION, WOKE UP IN MIDDLE OF PROCEDURE History of vascular access device APORT IN RT CHEST (IN PLACE) [place] teeth removed Family History Father ETOH abuse Cirrhosis Mother Hypercoagulable state Prothrombin Factor II Mutation, 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, boderline hyperhomocystemia Social History Smoking Status: Current every day smoker Tobacco Type: Cigarettes Cigarettes Per Day: 3; Second Hand Exposure: No; Do You Dip or Chew Tobacco: No; Hx Alcohol Use: No Hx Substance Use: No Preferred Language: Cypriot Communication Ability: Effective Visual Impairment: No Limitations Hearing Ability: Normal [employer] Faculty Member Required: No Beliefs That Will Affect Care: None marital status: Current Living Situation: Alone How many Children do You have: 0 Feels Safe at Home: Yes Assistive Devices: Brace/Splint/Immobilizer Allergies Allergies Allergy/AdvReac Type Severity Reaction Status Date / Time peas Allergy Severe Anaphylaxis Verified 06/19/23 10:28 tuna oil Allergy Severe Anaphylaxis Verified 06/19/23 10:28 to "tuna" sulfamethoxazole Allergy Intermediate hives Verified 06/19/23 10:28 trimethoprim Allergy Intermediate hives Verified 06/19/23 10:28 Home Meds Home Medications Medication Instructions Recorded Confirmed albuterol sulfate 90 mcg/actuation 1 puff inhalation Q6H PRN 05/09/18 08/01/25 aerosol inhaler (Ventolin HFA) Shortness Of Breath folic acid 1 mg tablet 1 mg PO QAM 05/09/18 08/01/25 omeprazole 20 mg capsule,delayed 20 mg PO BID 05/09/18 08/01/25 release diphenhydramine HCl 25 mg capsule 25 mg PO Q6H PRN Itching 10/23/19 08/01/25 (Benadryl) furosemide 80 mg tablet 80 mg PO BID17 10/23/19 08/01/25 multivitamin 1 tab PO QAM 06/05/20 08/01/25 buspirone 15 mg tablet 15 mg PO BID 10/02/22 08/01/25 fluoxetine 20 mg capsule 20 mg PO HS 10/02/22 08/01/25 fluticasone 500 mcg-salmeterol 50 1 inh inhalation BID 10/02/22 08/01/25 mcg/dose blistr powdr for inhalation montelukast 10 mg tablet 10 mg PO DAILY 10/02/22 08/01/25 hydroxyzine HCl 10 mg tablet 10 mg PO Q8H PRN Itching 10/29/22 08/01/25 tiotropium bromide 2.5 2 inh inhalation DAILY 10/29/22 08/01/25 mcg/actuation mist for inhalation (Spiriva Respimat) pregabalin 150 mg capsule 150 mg PO TID 06/04/23 08/01/25 apixaban 5 mg tablet (Eliquis) 5 mg PO BID 08/01/25 08/01/25 atorvastatin 40 mg tablet 40 mg PO DAILY 08/01/25 08/01/25 losartan 25 mg tablet 25 mg PO DAILY 08/01/25 08/01/25 oxycodone 10 mg tablet 10 mg PO QID PRN Severe Pain 08/01/25 08/01/25 (Scale Score 7-10) semaglutide 1 mg/dose (4 mg/3 mL) 1 mg subcut WK 08/01/25 08/01/25 subcutaneous pen injector (Ozempic) spironolactone 100 mg tablet 100 mg PO DAILY 08/01/25 08/01/25 Previous Rx's Medication Instructions Recorded ammonium lactate 5 % lotion 1 applic EXT BID #226 grams 10/08/22 (Lac-Hydrin Five) blood-glucose meter (Accu-Chek #1 ea 06/14/23 Guide Glucose Meter) Results & Data (ED) Vital Signs Vital Signs - 24 hr 08/01/25 09:41 08/01/25 10:27 08/01/25 10:28 Temperature 37.1 C Temperature Source Temporal Artery Scan Pulse Rate 90 95 H 76 Pulse Rate from SpO2 Sensor 86 Respiratory Rate 18 24 Respiratory Effort / Characteristics Non-Labored Spontaneous Respiratory Depth Normal Respiratory Pattern Regular Blood Pressure 172/99 H Blood Pressure Mean 123 Pulse Oximetry 97 97 Oxygen Delivery Method Room Air Room Air Sepsis Recent Fever Within 48 Hours No Sepsis New/Unexplained Change in Mental Status N/A Sepsis Action Taken by Nursing No Action Required 08/01/25 10:30 08/01/25 11:00 08/01/25 11:00 Temperature Temperature Source Pulse Rate 88 78 Pulse Rate from SpO2 Sensor 87 79 Respiratory Rate 15 12 Respiratory Effort / Characteristics Respiratory Depth Respiratory Pattern Blood Pressure 166/93 H Blood Pressure Mean 141 Pulse Oximetry 98 97 Oxygen Delivery Method Room Air Sepsis Recent Fever Within 48 Hours Sepsis New/Unexplained Change in Mental Status Sepsis Action Taken by Nursing 08/01/25 11:15 08/01/25 11:15 08/01/25 11:30 Temperature Temperature Source Pulse Rate 78 Pulse Rate from SpO2 Sensor Respiratory Rate 17 Respiratory Effort / Characteristics Respiratory Depth Respiratory Pattern Blood Pressure 153/98 H 169/88 H Blood Pressure Mean 129 124 Pulse Oximetry Oxygen Delivery Method Sepsis Recent Fever Within 48 Hours Sepsis New/Unexplained Change in Mental Status Sepsis Action Taken by Nursing 08/01/25 11:30 08/01/25 11:45 08/01/25 11:45 Temperature Temperature Source Pulse Rate 79 79 Pulse Rate from SpO2 Sensor Respiratory Rate 13 15 Respiratory Effort / Characteristics Respiratory Depth Respiratory Pattern Blood Pressure 142/90 H Blood Pressure Mean 123 Pulse Oximetry Oxygen Delivery Method Sepsis Recent Fever Within 48 Hours Sepsis New/Unexplained Change in Mental Status Sepsis Action Taken by Nursing 08/01/25 12:00 08/01/25 12:00 08/01/25 12:00 Temperature Temperature Source Pulse Rate 75 Pulse Rate from SpO2 Sensor Respiratory Rate 14 Respiratory Effort / Characteristics Respiratory Depth Respiratory Pattern Blood Pressure 158/95 H 158/95 H Blood Pressure Mean 124 124 Pulse Oximetry Oxygen Delivery Method Sepsis Recent Fever Within 48 Hours Sepsis New/Unexplained Change in Mental Status Sepsis Action Taken by Nursing 08/01/25 12:15 08/01/25 12:15 08/01/25 12:15 Temperature Temperature Source Pulse Rate Pulse Rate from SpO2 Sensor Respiratory Rate Respiratory Effort / Characteristics Respiratory Depth Respiratory Pattern Blood Pressure 173/90 H 173/90 H 173/90 H Blood Pressure Mean 137 137 137 Pulse Oximetry Oxygen Delivery Method Sepsis Recent Fever Within 48 Hours Sepsis New/Unexplained Change in Mental Status Sepsis Action Taken by Nursing 08/01/25 12:15 08/01/25 12:15 08/01/25 12:15 Temperature Temperature Source Pulse Rate 78 Pulse Rate from SpO2 Sensor Respiratory Rate 15 Respiratory Effort / Characteristics Respiratory Depth Respiratory Pattern Blood Pressure 173/90 H 173/90 H Blood Pressure Mean 137 137 Pulse Oximetry Oxygen Delivery Method Sepsis Recent Fever Within 48 Hours Sepsis New/Unexplained Change in Mental Status Sepsis Action Taken by Nursing 08/01/25 12:30 08/01/25 12:30 08/01/25 12:30 Temperature Temperature Source Pulse Rate 77 Pulse Rate from SpO2 Sensor Respiratory Rate 13 Respiratory Effort / Characteristics Respiratory Depth Respiratory Pattern Blood Pressure 154/91 H 154/91 H Blood Pressure Mean 118 118 Pulse Oximetry Oxygen Delivery Method Sepsis Recent Fever Within 48 Hours Sepsis New/Unexplained Change in Mental Status Sepsis Action Taken by Nursing 08/01/25 12:32 08/01/25 12:33 08/01/25 12:35 Temperature 37.0 C Temperature Source Oral Pulse Rate 80 Pulse Rate from SpO2 Sensor 79 Respiratory Rate 12 Respiratory Effort / Characteristics Respiratory Depth Respiratory Pattern Blood Pressure 166/93 H 166/93 H Blood Pressure Mean 107 117 Pulse Oximetry 97 97 Oxygen Delivery Method Sepsis Recent Fever Within 48 Hours Sepsis New/Unexplained Change in Mental Status Sepsis Action Taken by Nursing 08/01/25 12:45 08/01/25 13:00 08/01/25 13:00 Temperature Temperature Source Pulse Rate 74 71 Pulse Rate from SpO2 Sensor 74 71 Respiratory Rate 15 18 Respiratory Effort / Characteristics Respiratory Depth Respiratory Pattern Blood Pressure 173/103 H Blood Pressure Mean 131 Pulse Oximetry 97 97 Oxygen Delivery Method Sepsis Recent Fever Within 48 Hours Sepsis New/Unexplained Change in Mental Status Sepsis Action Taken by Nursing 08/01/25 13:15 Temperature Temperature Source Pulse Rate 76 Pulse Rate from SpO2 Sensor 77 Respiratory Rate 16 Respiratory Effort / Characteristics Respiratory Depth Respiratory Pattern Blood Pressure Blood Pressure Mean Pulse Oximetry 97 Oxygen Delivery Method Sepsis Recent Fever Within 48 Hours Sepsis New/Unexplained Change in Mental Status Sepsis Action Taken by Nursing Laboratory Data Attestation: I reviewed the patient's lab results. 08/01/25 10:23 08/01/25 10:23 Lab Results 08/01/25 Range/Units 10:23 WBC 8.07 (4.8-10.8) K/ul RBC 5.06 (4.70-6.10) M/uL Hgb 13.5 L (14.0-18.0) g/dL Hct 41.7 L (42.0-52.0) % MCV 82.4 (80.0-100.0) fL MCH 26.7 (25.0-34.0) pg MCHC 32.4 (32.0-36.0) g/dL RDW Std Deviation 50.7 H (36.4-46.3) fL RDW Coeff of Kip 16.9 H (11.5-14.5) % Plt Count 217 (130-400) K/uL MPV 9.6 (9.4-12.4) fL Immature Gran % (Auto) 0.4 % Neut % (Auto) 81.9 % Lymph % (Auto) 11.0 % [place] % (Auto) 6.4 % Eos % (Auto) 0.1 % Baso % (Auto) 0.2 % Neut # (Auto) 6.60 H (1.40-6.50) K/uL Lymph # (Auto) 0.89 L (1.20-3.40) K/uL [place] # (Auto) 0.52 (0.11-0.59) K/uL Eos # (Auto) 0.01 (0.00-0.50) K/uL Baso # (Auto) 0.02 (0.00-0.20) K/uL Immature Gran # (Auto) 0.03 (0.01-0.20) K/uL ESR 72 H (0-20) mm/hr PT 10.7 (9.0-12.0) Seconds INR 1.0 (0.9-1.1) Sodium 139 (136-145) mmol/L Potassium 3.8 (3.5-5.1) mmol/L Chloride 105 (98-107) mmol/L Carbon Dioxide 27 (21-32) mmol/L Anion Gap 7 (3-11) BUN 9 (6-23) mg/dl Creatinine 0.79 (0.6-1.4) mg/dl Est Cr Clr Drug Dosing 130.3 ml/min eGFR 107.56 BUN/Creatinine Ratio 11.4 (10-20) Glucose 180 H (70-99(Fasting)) mg/dl Lactate 1.4 (0.4-2.0) mmol/L Calcium 9.4 (8.6-10.3) mg/dl Total Bilirubin 0.6 (0.2-1.0) mg/dl AST 15 (13-39) U/L ALT 14 (7-52) U/L Alkaline Phosphatase 66 (34-104) U/L Total Creatine Kinase 28 L (30-223) U/L C-Reactive Protein 1.52 H (0-0.5) mg/dl Total Protein 8.4 H (6.0-8.3) gm/dl Albumin 4.2 (3.4-5.0) gm/dl Globulin 4.2 H (2.5-4.0) gm/dl Albumin/Globulin Ratio 1.0 (0.9-2) Procalcitonin 0.03 (0-0.5) ng/ml Administered Medications Albuterol (Albut/Ipratrop 3mg/0.5mg Neb 3 Ml Vial) 3 ml NEB Q6R [facility]; Protocol Stop: 08/31/25 18:59 Last Admin: 08/01/25 20:35 Dose: 3 ml Documented By: HEATHER Apixaban (Apixaban 5 Mg Tablet) 5 mg PO BID [facility] Stop: 08/31/25 20:59 Last Admin: 08/01/25 20:50 Dose: 5 mg Documented By: nora Buspirone HCl (Buspirone 15 Mg Tab) 15 mg PO BID [facility] Stop: 08/31/25 20:59 Last Admin: 08/01/25 20:50 Dose: 15 mg Documented By: nora Fluoxetine HCl (Fluoxetine Hcl 20 Mg Cap) 20 mg PO HS [facility] Stop: 08/31/25 20:59 Last Admin: 08/01/25 20:50 Dose: 20 mg Documented By: nora Fluticasone/Vilanterol (Fluticasone/Vilanterol 200/25mcg 14 Puffs/Inhaler) 1 puffs INH DAILY [facility] Stop: 08/31/25 17:14 Last Admin: 08/01/25 20:19 Dose: 1 puffs Documented By: nora Cefepime HCl (Maxipime 2000mg) 2,000 mg in 20 mls @ 5 mls/min IV Q8H [facility]; Protocol Stop: 08/08/25 19:59 Last Admin: 08/01/25 20:38 Dose: 5 mls/min Documented By: nora Insulin Aspart (Insulin Aspart Per Unit Charge) 0 units SC ACHS [facility] Stop: 08/31/25 16:29 Last Admin: 08/01/25 20:02 Dose: Not Given Documented By: nora Admin: 08/01/25 19:22 Dose: 9 units Documented By: FREDDY Co-signed By: yazan Morphine Sulfate (Morphine Sulfate 2 Mg/Ml Carp) 2 mg IV Q6H PRN PRN Reason: Severe Pain (Scale 7, 8, 9,10) Stop: 08/15/25 16:07 Last Admin: 08/01/25 20:49 Dose: 2 mg Documented By: nora Nicotine (Nicotine 14 Mg/24 Hr Patch) 1 patch TD QAM [facility] Stop: 08/31/25 16:07 Last Admin: 08/01/25 17:08 Dose: 1 patch Documented By: santino Oxycodone HCl (Oxycodone Hcl Ir 5 Mg Tab (Immediate Release)) 10 mg PO QID PRN PRN Reason: Severe Pain (Scale Score 7-10) Stop: 08/15/25 16:07 Last Admin: 08/01/25 19:15 Dose: 10 mg Documented By: FREDDY Pregabalin (Pregabalin 150 Mg Cap) 150 mg PO TID [facility] Stop: 08/31/25 20:59 Last Admin: 08/01/25 20:49 Dose: 150 mg Documented By: nora Discontinued Medications Albuterol (Albut/Ipratrop 3mg/0.5mg Neb 3 Ml Vial) 3 ml NEB NOW STA; Protocol Stop: 08/01/25 13:39 Last Admin: 08/01/25 13:52 Dose: 3 ml Documented By: GUZMAN Diphenhydramine HCl (Diphenhydramine Capsule 25 Mg Cap) 25 mg PO NOW ONE Stop: 08/01/25 13:04 Last Admin: 08/01/25 13:18 Dose: 25 mg Documented By: CONCHIS Diphenhydramine HCl (Diphenhydramine 50 Mg/Ml Vial) 25 mg IV NOW STA Stop: 08/01/25 13:37 Last Admin: 08/01/25 13:44 Dose: 25 mg Documented By: CONCHIS Furosemide (Furosemide 80 Mg Tab) 80 mg PO ONE ONE Stop: 08/01/25 14:23 Last Admin: 08/01/25 16:03 Dose: 80 mg Documented By: CONCHIS Cefepime HCl (Maxipime 2000mg) 2,000 mg in 20 mls @ 5 mls/min IV NOW STA; Protocol Stop: 08/01/25 12:35 Last Admin: 08/01/25 12:55 Dose: 5 mls/min Documented By: FLACO Vancomycin HCl 2,500 mg/ (Sodium Chloride) 550 mls @ 200 mls/hr IV NOW ONE Stop: 08/01/25 15:16 Last Infusion: 08/01/25 19:12 Dose: Infused Documented By: Infusion: 08/01/25 13:43 Dose: 0 mls/hr Documented By: Admin: 08/01/25 13:19 Dose: 200 mls/hr Documented By: CONCHIS Sodium Chloride (Nss) 1,000 mls @ 999 mls/hr IV .Q1H1M ONE Stop: 08/01/25 14:03 Last Infusion: 08/01/25 14:26 Dose: Infused Documented By: Admin: 08/01/25 13:22 Dose: 999 mls/hr Documented By: CONCHIS Famotidine (Pepcid 20mg Iv Push) 20 mg in 5 mls @ 2.5 mls/min IV NOW STA Stop: 08/01/25 13:38 Last Admin: 08/01/25 13:52 Dose: 2.5 mls/min Documented By: GUZMAN Losartan Potassium (Losartan Potassium 25 Mg Tab) 25 mg PO ONE ONE Stop: 08/01/25 14:14 Last Admin: 08/01/25 16:03 Dose: 25 mg Documented By: CONCHIS Methylprednisolone (Methylprednisolone 125 Mg/2 Ml Vial) 40 mg IV NOW STA Stop: 08/01/25 13:59 Last Admin: 08/01/25 14:22 Dose: 40 mg Documented By: CONCHIS Morphine Sulfate (Morphine Sulfate 2 Mg/Ml Carp) 2 mg IV NOW ONE Stop: 08/01/25 15:27 Last Admin: 08/01/25 16:00 Dose: 2 mg Documented By: CONCHIS Oxycodone HCl (Oxycodone Hcl Ir 5 Mg Tab (Immediate Release)) 10 mg PO NOW STA Stop: 08/01/25 12:38 Last Admin: 08/01/25 12:53 Dose: 10 mg Documented By: FLACO Spironolactone (Spironolactone 100 Mg Tab) 100 mg PO ONE ONE Stop: 08/01/25 17:01 Last Admin: 08/01/25 16:02 Dose: 100 mg Documented By: CONCHIS Imaging Data Radiologist's Impression: Chest X-Ray 08/01/25 13:36 XR chest 1V portable HISTORY: 50 years-old Male cough . COMPARISON: 10/11/2023 TECHNIQUE: AP view the chest FINDINGS: Cardiac silhouette is upper limits of normal in size. Right IJ [id number] catheter is unchanged. No pneumothorax, pleural effusion or airspace consolidation. Subacute to chronic posterior left rib fractures appear new from prior. Degenerative changes of the shoulders and spine. IMPRESSION: No acute process. ACT 112: Negative or not required by law. The above report was generated using voice recognition software. It may contain grammatical, syntax or spelling errors. Electronically signed by: Dante Cavazos M.D. 08/01/2025 2:08 PM Discharge Plan Visit Data Chief Complaint: Leg Injury/Pain Stated Complaint: BLOOD CLOT R LEG & INFECTION ED Provider: Cross,Jalen E Discharge Problem: Open wound of right ankle, Chronic ulcer of lower extremity, Type 2 diabetes mellitus Patient Disposition: Admitted As Inpatient Condition: Fair Discharge Instructions Interventions: ED Discharge Assessment Last Done: 08/01/25 16:09 Discharge Problem: Open wound of right ankle Qualifiers: Encounter type: initial encounter Qualified Code(s): S91.001A - Unspecified open wound, right ankle, initial encounter Chronic ulcer of lower extremity Qualifiers: Laterality: right Non-pressure ulcer stage: unspecified non-pressure ulcer stage Qualified Code(s): L97.919 - Non-pressure chronic ulcer of unspecified part of right lower leg with unspecified severity Type 2 diabetes mellitus Qualifiers: Diabetes mellitus fci insulin use: unspecified exterminator termite insulin use status Diabetes mellitus complication status: with other specified complication Qualified Code(s): E11.69 - Type 2 diabetes mellitus with other specified complication
[2025-08-01] MEDS: CEFEPIME 2000MG 2,000 MG/20 ML SYR IV STA (12:55)
--- NOTE | 2025-08-01 13:07 | History & Physical Report ---
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 Known chronic BLE wounds. Prior right ankle ulcer that previously healed and reopened one week ago. In ER afebrile, hypertensive, other vitals stable. No leukocytosis. Lactate and procalcitonin WNL, CRP: 1.5, ESR: 72 [facility] ER on 07/31/25 Right ankle xray: IMPRESSION: Soft tissue swelling overlying the medial greater than lateral malleoli with possible ulceration along the medial malleolus. There is also soft tissue swelling of the distal medial lower extremity. Periosteal reaction along the medial aspect of the distal tibial diaphysis and metaphysis possibly related to osteomyelitis. This could be further evaluated with MRI. In ER given cefepime and vancomycin. After vancomycin started patient started with diffuse itching. No rash or urticaria noted. Patient reports prior history itching with Vanco requiring IV Benadryl prior to dosing. Will stop vancomycin now. Ordered dose IV Pepcid and Benadryl with improvement of itching. Start daptomycin, continue cefepime Obtain MRI ankle to R/O osteomyelitis Podiatry consult Wound nurse consult CBC, BMP in am (3) COPD exacerbation: Plan: URI symptoms last week with continued nonproductive cough, wheezing Respiratory biofire panel negative CXR: no infiltrate Dose solumedrol today followed by prednisone 40mg daily starting tomorrow Duonebs Continue home inhalers, montelukast (4) Type 2 diabetes mellitus: Plan: A1c: 6.7 on 06/20/25 Hold home ozempic Novolog sliding scale per protocol. Follow BSGs, may need to consider adding Lantus if needed (5) HTN (hypertension): Plan: BP elevated in ER. Patient has not had home medications Dose home losartan now and continue daily (6) Cirrhosis: Plan: History alcoholic cirrhosis Has been abstaining from alcohol Continue furosemide, spironolactone (7) Hyperlipidemia: Plan: Hold atorvastatin while on daptomycin (8) History of DVT (deep vein thrombosis): Plan: History of chronic DVT Continue Eliquis (9) Chronic pain: Plan: On chronic oxycodone, pregabalin (10) Anxiety: Plan: Continue home buspirone, fluoxetine (11) Tobacco abuse: Plan: Nicotine patch Smoking cessation encouraged DVT Prophylaxis Eliquis Admit med surg Full code as per discussion with pt Follows with Willa Soto PA-C for routine care Pt was seen and care coordinated with Dr Azul See addendum I spent a total of 65 minutes reviewing notes, outpatient records, labs, medication, coordinating, documenting and providing care for this patient excluding time spent in the performance of separately billed services and excluding time spent by another provider/QHP. 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 Patient reports old ulcer to right ankle that had been healing. Reports went hunting and was wearing boots with compression bandage. Last week noticed "area opened up again". States having some increased pain around site and yellow type discharge. Per outpatient chart review patient was seen at [facility] ER on 07/31/25 and had Right ankle xray that showed soft tissue edema over medial malleolus and periosteal reaction along distal tibia. He was referred to podiatry. Today patient states he concerned for underlying infection. He denies fever or chills. States has increased pain to area. Today felt nauseated without vomiting. Last week with congestion and nonproductive cough and states wheezing and feeling SOB. This has continued this week and cough still nonproductive, still with wheezing and SOB. States took pain pill today but did not have any other home medications. Denies fever/chills, diaphoresis, vomiting, diarrhea, SCOTT, dizziness, syncope, CP, palpitations, hemoptysis, sore throat, rhinorrhea, abdominal pain, paresthesias, weakness, extremity weakness, extremity edema, rashes, urinary symptoms. Allergies Allergy/AdvReac Type Severity Reaction Status Date / Time peas Allergy Severe Anaphylaxis Verified 06/19/23 10:28 tuna oil Allergy Severe Anaphylaxis Verified 06/19/23 10:28 to "tuna" sulfamethoxazole Allergy Intermediate hives Verified 06/19/23 10:28 trimethoprim Allergy Intermediate hives Verified 06/19/23 10:28 Home Medications Medication Instructions Recorded Confirmed Type albuterol sulfate 90 mcg/actuation 1 puff inhalation Q6H PRN 05/09/18 08/01/25 History aerosol inhaler (Ventolin HFA) Shortness Of Breath folic acid 1 mg tablet 1 mg PO QAM 05/09/18 08/01/25 History omeprazole 20 mg capsule,delayed 20 mg PO BID 05/09/18 08/01/25 History release diphenhydramine HCl 25 mg capsule 25 mg PO Q6H PRN Itching 10/23/19 08/01/25 History (Benadryl) furosemide 80 mg tablet 80 mg PO BID17 10/23/19 08/01/25 History multivitamin 1 tab PO QAM 06/05/20 08/01/25 History buspirone 15 mg tablet 15 mg PO BID 10/02/22 08/01/25 History fluoxetine 20 mg capsule 20 mg PO HS 10/02/22 08/01/25 History fluticasone 500 mcg-salmeterol 50 1 inh inhalation BID 10/02/22 08/01/25 History mcg/dose blistr powdr for inhalation montelukast 10 mg tablet 10 mg PO DAILY 10/02/22 08/01/25 History ammonium lactate 5 % lotion 1 applic EXT BID #226 grams 10/08/22 08/01/25 Rx (Lac-Hydrin Five) hydroxyzine HCl 10 mg tablet 10 mg PO Q8H PRN Itching 10/29/22 08/01/25 History tiotropium bromide 2.5 2 inh inhalation DAILY 10/29/22 08/01/25 History mcg/actuation mist for inhalation (Spiriva Respimat) pregabalin 150 mg capsule 150 mg PO TID 06/04/23 08/01/25 History blood-glucose meter (Accu-Chek #1 ea 06/14/23 08/01/25 Rx Guide Glucose Meter) apixaban 5 mg tablet (Eliquis) 5 mg PO BID 08/01/25 08/01/25 History atorvastatin 40 mg tablet 40 mg PO DAILY 08/01/25 08/01/25 History losartan 25 mg tablet 25 mg PO DAILY 08/01/25 08/01/25 History oxycodone 10 mg tablet 10 mg PO QID PRN Severe Pain 08/01/25 08/01/25 History (Scale Score 7-10) semaglutide 1 mg/dose (4 mg/3 mL) 1 mg subcut WK 08/01/25 08/01/25 History subcutaneous pen injector (Ozempic) spironolactone 100 mg tablet 100 mg PO DAILY 08/01/25 08/01/25 History Past Med/Surg History Problem List (Updated 08/01/25 @ 16:13 by Jalen Baeza MD) Chronic pain History of DVT (deep vein thrombosis) Open wound of right ankle (Acute) Recurrent cellulitis of lower extremity Chronic cutaneous venous stasis ulcer Chronic wound Conjunctivitis (Acute) Bacterial conjunctivitis Wound infection (Acute) COPD exacerbation (Acute) Cellulitis of left leg (Acute) Hypoalbuminemia Open wound of both lower extremities with complication (Acute) Depression with anxiety Venous ulcers of both lower extremities (Acute) Chronic deep vein thrombosis (DVT) (Chronic) Chronic narcotic use (Chronic) MRSA (methicillin resistant Staphylococcus aureus) infection (Chronic) Anxiety (Chronic) Hypercoagulable state (Chronic) Prothrombin Factor II Mutation, 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, borderline hyperhomocystemia Tobacco abuse (Chronic) GERD (gastroesophageal reflux disease) (Chronic) Venous insufficiency (chronic) (peripheral) (Chronic) COPD (chronic obstructive pulmonary disease) (Chronic) Depression (Chronic) COPD (chronic obstructive pulmonary disease) (Chronic) DVT prophylaxis History of MRSA infection (Acute) 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 DETAILS Blood clotting disorder ? NAME Hyperlipidemia Asthma USED RESCUE INHALER TODAY Anxiety and depression Chronic narcotic use HTN (hypertension) GERD (gastroesophageal reflux disease) Chronic deep vein thrombosis (DVT) 2018 (HOSPITALIZED AT [facility]) Tobacco abuse Cellulitis BILAT LEGS (WRAPS LEGS/DRY CLOTH) CURRENTLY HAS SOME OPEN WOUNDS>GOES TO WOUND CLINIC[facility] Surgical History History of anesthesia reaction WITH A-PORT INSERTION, WOKE UP IN MIDDLE OF PROCEDURE History of vascular access device APORT IN RT CHEST (IN PLACE) [place] teeth removed Family History Father ETOH abuse Cirrhosis Mother Hypercoagulable state Prothrombin Factor II Mutation, 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, boderline h yperhomocystemia Social History Smoking Status: Current every day smoker Tobacco Type: Cigarettes Cigarettes Per Day: 3; Second Hand Exposure: No; Do You Dip or Chew Tobacco: No; Hx Alcohol Use: No Hx Substance Use: No Preferred Language: Bengali Communication Ability: Effective Visual Impairment: No Limitations Hearing Ability: Normal 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 Required: No Beliefs That Will Affect Care: None marital status: Current Living Situation: Alone How many Children do You have: 0 Feels Safe at Home: Yes Assistive Devices: Brace/Splint/Immobilizer Review of Systems Review of Systems: All systems reviewed & are unremarkable except as noted in HPI & below Physical Exam Physical Exam: PE per Dr Azul Results & Data Results & Data Vital Signs (Past 12 Hours) Vital Signs Temp Pulse Resp BP Pulse Ox O2 Del Method 08/01/25 12:35 37.0 C 08/01/25 12:32 166/93 H 97 08/01/25 12:30 77 13 08/01/25 12:30 154/91 H 08/01/25 12:30 154/91 H 08/01/25 12:15 78 15 08/01/25 12:15 173/90 H 08/01/25 12:15 173/90 H 08/01/25 12:15 173/90 H 08/01/25 12:15 173/90 H 08/01/25 12:15 173/90 H 08/01/25 12:00 75 14 08/01/25 12:00 158/95 H 08/01/25 12:00 158/95 H 12/05/25 11:45 79 15 08/01/25 11:45 142/90 H 08/01/25 11:30 79 13 08/01/25 11:30 169/88 H 08/01/25 11:15 78 17 08/01/25 11:15 153/98 H 08/01/25 11:00 78 12 97 08/01/25 11:00 166/93 H 08/01/25 10:30 88 15 98 Room Air 08/01/25 10:28 76 08/01/25 10:27 95 H 24 97 Room Air 08/01/25 09:41 37.1 C 90 18 172/99 H 97 Room Air Laboratory Results Short CBC 08/01/25 Range/Units 10:23 WBC 8.07 (4.8-10.8) K/ul Hgb 13.5 L (14.0-18.0) g/dL Hct 41.7 L (42.0-52.0) % Plt Count 217 (130-400) K/uL BMP 08/01/25 10:23 Sodium 139 Potassium 3.8 Chloride 105 Carbon Dioxide 27 BUN 9 Creatinine 0.79 Glucose 180 H Calcium 9.4 Liver Function 08/01/25 Range/Units 10:23 Total Bilirubin 0.6 (0.2-1.0) mg/dl AST 15 (13-39) U/L ALT 14 (7-52) U/L Alkaline Phosphatase 66 (34-104) U/L Albumin 4.2 (3.4-5.0) gm/dl Diagnostic Findings Chest X-Ray 08/01/25 13:36 XR chest 1V portable HISTORY: 50 years-old Male cough . COMPARISON: 10/11/2023 TECHNIQUE: AP view the chest FINDINGS: Cardiac silhouette is upper limits of normal in size. Right IJ Raxkba-m-[id number] catheter is unchanged. No pneumothorax, pleural effusion or airspace consolidation. Subacute to chronic posterior left rib fractures appear new from prior. Degenerative changes of the shoulders and spine. IMPRESSION: No acute process. ACT 112: Negative or not required by law. The above report was generated using voice recognition software. It may contain grammatical, syntax or spelling errors. Electronically signed by: Dante Cavazos M.D. 08/01/2025 2:08 PM Supervising Physician Co-Signing Physician Notes Patient is a 50-year-old male with history of diabetes mellitus, chronic venous stasis with ulcers, DVT on Eliquis, COPD and other medical problems presents with history of right leg wound and pain which has been gradually worsening for 1 week duration. He reports nausea but no vomiting. Denies any fever, chills. Admits to have worsening cough mostly nonproductive, associated with wheezing and shortness of breath and continues to smoke tobacco. Please review HPI for complete details of presentation. I personally reviewed blood work and imaging studies. Currently no signs of sepsis. Glucose elevated at 180. CRP 1.52, normal procalcitonin. Respiratory BioFire negative. Chest x-ray showed no acute process. Ankle MRI showed soft tissue ulceration overlying medial malleolus. Physical Exam: Vitals signs as noted above General Appearance:Moderately built and nourished, no apparent distress Head: normocephalic, Atraumatic Eyes: normal inspection, EOMI Neck: supple, Trachea midline Respiratory/Chest: Decreased coarse breath sounds, + wheezing b/l, no accessory muscle use Cardiovascular: S1, S2, No murmur Abdomen/GI:Soft, Non tender, Bowel sounds present Extremities/Musculoskeletal:normal inspection, chronic venous stasis changes, left medial malleoli ulcer, +leg edema, warm Neurologic/Psych:AAOX3, grossly no focal neurological deficits Skin: normal color, warm Chronic venous stasis ulcer Right leg cellulitis Acute COPD exacerbation Ongoing tobacco use disorder Agree with broad-spectrum IV antibiotics MRI showed no signs of osteomyelitis Continue wound care Continue IV Solu-Medrol, nebs Supplemental oxygen as needed [address] [place]man to quit smoking I personally interviewed and examined the patient at bedside. I have reviewed the advanced practitioner's documentation on the date of service referred in not e and agree with plan. Patient's care is coordinated with Bárbara Jimenez PA-C. Please refer to the documentation above for details of patient's presentation and for discussion of other issues. I spent a total [id number] coordinating, documenting, and providing care for this patient excluding time spent in the performance of separately billed services or time spent by another provider/QHP. (4) Type 2 diabetes mellitus Diabetes mellitus 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 insulin use: without termite control representative use (6) Cirrhosis Ascites presence: unspecified Hepatic cirrhosis type: alcoholic cirrhosis Qualified Code(s): K70.30 - Alcoholic cirrhosis of liver without ascites
[2025-08-01] MEDS: diphenhydrAMINE Capsule 25 MG CAP PO ONE (13:18)
[2025-08-01] MEDS: VANCOMYCIN HCL 2,500 MG in SODIUM CHLORIDE 0.9% 500 ML IV ONE (13:19)
[2025-08-01] MEDS: SODIUM CHLORIDE 0.9% 1,000 ML IV ONE (13:22)
[2025-08-01] MEDS: diphenhydrAMINE 50 MG/ML VIAL IV STA (13:44)
[2025-08-01] MEDS: ALBUT/IPRATROP 3MG/0.5MG NEB 3 ML VIAL NEB STA (13:52)
[2025-08-01] MEDS: FAMOTIDINE 20MG IV PUSH 20 MG/5 ML SYR IV STA (13:52)
--- NOTE | 2025-08-01 14:09 | XRay Report ---
XR chest 1V portable HISTORY: 50 years-old Male cough . COMPARISON: 10/11/2023 TECHNIQUE: AP view the chest FINDINGS: Cardiac silhouette is upper limits of normal in size. Right IJ [id number]-j-[id number] catheter is unchanged. N o pneumothorax, pleural effusion or airspace consolidation. Subacute to chronic posterior left rib fr actures appear new from prior. Degenerative changes of the shoulders and spine. IMPRESSION: No acute process. ACT 112: Negative or not required by law. The above report was generated using voice recognition software. It may contain grammatical, syntax o r spelling errors. Electronically signed by: Dante Cavazos M.D. 08/01/2025 2:08 PM
[2025-08-01 15:25] LABS: Chlamydia pneumoniae PCR Not Detected (NotDetected); Coronavirus 229E PCR Not Detected (NotDetected); Coronavirus CoV-2 (COVID19)PCR Not Detected (NotDetected); Coronavirus HKU1 PCR Not Detected (NotDetected); Coronavirus NL63 PCR Not Detected (NotDetected); Coronavirus OC43PCR Not Detected (NotDetected); Human Metapneumovirus PCR Not Detected (NotDetected); Parainfluenza Virus 1 PCR Not Detected (NotDetected); Parainfluenza Virus 2 PCR Not Detected (NotDetected); Parainfluenza Virus 3 PCR Not Detected (NotDetected); Parainfluenza Virus 4 PCR Not Detected (NotDetected); Respiratory Syncytial VirusPCR Not Detected (NotDetected); Rhinovirus/Enterovirus PCR Not Detected (NotDetected)
[2025-08-01] MEDS: MoRPHine SULFATE 2 MG/ML CARP IV ONE (16:00)
[2025-08-01] MEDS: SPIRONOLACTONE 100 MG TAB PO ONE (16:02)
[2025-08-01] MEDS: LOSARTAN POTASSIUM 25 MG TAB PO ONE (16:03)
[2025-08-01] MEDS: FUROSEMIDE 80 MG TAB PO ONE (16:03)
[2025-08-01] MEDS ORDERED: CARBOHYDRATES FOR HYPOGLYCEMIA PO PRN (16:08)
[2025-08-01] MEDS ORDERED: DEXTROSE 50% 50 ML SYRINGE IV PRN (16:08)
[2025-08-01] MEDS ORDERED: ACETAMINOPHEN 325 MG TAB PO PRN (16:08)
[2025-08-01] MEDS ORDERED: GLUCAGON FOR INJ 1 MG VIAL SQ PRN (16:08)
[2025-08-01] MEDS ORDERED: GLUCOSE 10 TAB/TUBE PO PRN (16:08)
[2025-08-01] MEDS ORDERED: GLUCOSE 40% GEL 15 GM TUBE PO PRN (16:08)
[2025-08-01] MEDS: NICOTINE 14 MG/24 HR PATCH TD SCH (17:08)
[2025-08-01 19:14] LABS: Creatine Kinase 28.0 U/L (30-223)
[2025-08-01] MEDS: INSULIN ASPART PER UNIT CHARGE SC SCH (19:22)
--- NOTE | 2025-08-01 19:43 | Magnetic Resonance Report ---
Technique: Multiple T1 and T2 magnetic resonance images were obtained of the right ankle without gadolinium contrast. Findings: Some sequences are limited by motion artifact There is soft tissue ulceration overlying the medial malleolus. There is underlying low signal intensity in the subcutaneous tissue that could be due to scarring The medial, lateral, and anterior ankle tendons all appear intact without apparent tendinopathy, tenosynovitis, or tear. The anterior and posterior talofibular and tibiofibular ligaments appear to be intact. The deltoid ligament and calcaneofibular ligament appear intact also. The Achilles tendon appears unremarkable. The plantar fascia appears unremarkable also with no sign of plantar fasciitis or plantar fibromatosis. The visualized bones demonstrate normal bone marrow signal intensity with no sign of fracture or focal osseous lesion. No significant arthritic changes are seen. There is no subluxation or dislocation. There is a partially fused accessory navicular bone There is no joint effusion. The sinus tarsi appears unremarkable. No definite abnormality is seen within the tarsal tunnel. No soft tissue mass is evident. The talar dome appears normal. The visualized musculature appears unremarkable. No definite foreign body is seen. Impression: 1. No sign of osteomyelitis 2. Soft tissue ulceration overlying the medial malleolus 3. Low signal intensity in the subcutaneous fat medially, which could be due to scarring Electronically signed by Joe Pelaez 08-01-2025 7:43 PM
[2025-08-01] MEDS: FLUTICASONE/VILANTEROL 200/25MCG 14 PUFFS/INHALER INH SCH (20:19)
[2025-08-01] MEDS: ALBUT/IPRATROP 3MG/0.5MG NEB 3 ML VIAL NEB SCH (20:35)
[2025-08-01] MEDS: CEFEPIME 2000MG 2,000 MG/20 ML SYR IV SCH (20:38)
[2025-08-01] MEDS: MoRPHine SULFATE 2 MG/ML CARP IV PRN (20:49)
[2025-08-01] MEDS: PREGABALIN 150 MG CAP PO SCH (20:49)
[2025-08-01] MEDS: APIXABAN 5 MG TABLET PO SCH (20:50)
[2025-08-01] MEDS: busPIRone 15 MG TAB PO SCH (20:50)
[2025-08-02] MEDS: DAPTOmycin 500 MG in SYRINGE 0 ML IV SCH (00:03)
[2025-08-02] MEDS: INSULIN ASPART PER UNIT CHARGE SQ ONE (00:27)
[2025-08-02] MEDS: MELATONIN 3 MG TAB PO PRN (00:59)
[2025-08-02] MEDS: diphenhydrAMINE Capsule 25 MG CAP PO ONE (00:59)
[2025-08-02 06:34] LABS: Hematocrit (blood only) 37.0 % (42.0-52.0); Hemoglobin 12.2 g/dL (14.0-18.0); Mean Corpuscular Hemoglobin 27.2 pg (25.0-34.0); Mean Corpuscular Volume 82.4 fL (80.0-100.0); Platelet Count 209 K/uL (130-400); RDW Standard Deviation 50.3 fL (36.4-46.3); Red Blood Count 4.49 M/uL (4.70-6.10); White Blood Count 7.50 K/ul (4.8-10.8)
[2025-08-02 06:58] LABS: Anion Gap 10.0 (3-11); Blood Urea Nitrogen 13.0 mg/dl (6-23); Calcium 8.7 mg/dl (8.6-10.3); Carbon Dioxide 25.0 mmol/L (21-32); Chloride 100.0 mmol/L (98-107); Creatinine Clr Calc Pharmacy 107.4 ml/min; Glucose 179.0 mg/dl (70-99(Fasting)); Potassium 3.5 mmol/L (3.5-5.1); Sodium 135.0 mmol/L (136-145)
[2025-08-02] MEDS: SPIRONOLACTONE 100 MG TAB PO SCH (08:04)
[2025-08-02] MEDS: MULTIVITAMIN TAB PO SCH (08:04)
[2025-08-02] MEDS: predniSONE 20 MG TAB PO SCH (08:04)
[2025-08-02] MEDS: FOLIC ACID 1 MG TAB PO SCH (08:05)
[2025-08-02] MEDS: FUROSEMIDE 80 MG TAB PO SCH (08:05)
[2025-08-02] MEDS: LOSARTAN POTASSIUM 25 MG TAB PO SCH (08:05)
[2025-08-02] MEDS: MONTELUKAST SODIUM 10 MG TABLET PO SCH (08:05)
[2025-08-02] MEDS: REMOVE NICODERM PATCH SCH (08:37)
--- NOTE | 2025-08-02 08:50 | Orthopedic Consultation ---
Date of Service August 02, 2025 Assessment & Plan (1) Open wound of right ankle: * Case/imaging reviewed and discussed with Dr Ahmadi * No deep abscess or osteomyelitis visualized on imaging * Recommend conservative management of bilateral ankle wounds * No acute surgical intervention indicated at this time * Wound care consult pending, wound management further recommendations * Antibiotics per primary team * Weight bearing status: Activity as tolerated * Daily treatment: Physical Therapy/ Occupational Therapy per protocol * Pain control * Disposition: TBD * Remainder care per primary team * Will follow peripherally from orthopedic standpoint, podiatry to formally evaluate Monday History of Present Illness Reason for Consultation: . Bilateral ankle wounds Requesting Physician: . Attending Physician: Praveen Fitzgerald MD Patient is a 50y/o male with bilateral ankle wounds. 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 Presents to hospital with bilateral ankle wounds, however worsening pain of right ankle wound over approximately the past week. Known chronic BLE wounds, but approximately 1 week ago, after wearing hiking boots noticed that the lateral ankle wound opened up again, increased pain and some discharge. Patient typically treats with [facility], had been referred to podiatry. Secondary to c oncern of underlying infection patient presents to our ED for evaluation. Current workup including x-ray and MRI right ankle without evidence of osteomyelitis or deep abscess. Afebrile, no leukocytosis. IV antibiotics initiated in ED, admitted to hospital medicine team. Podiatry initially consulted, however do not cover on weekends, therefore orthopedics was contacted for evaluation and management recommendations. At time of exam patient lying in bed, no acute distress. Endorses moderate pain of the right lateral ankle wound that increases with palpation/pressure around the area. Currently has been clean, dry dressings to medial and lateral right ankle, medial left ankle. Chronic skin changes throughout the bilateral lower legs. Allergies Allergy/AdvReac Type Severity Reaction Status Date / Time peas Allergy Severe Anaphylaxis Verified 06/19/23 10:28 tuna oil Allergy Severe Anaphylaxis Verified 06/19/23 10:28 to "tuna" sulfamethoxazole Allergy Intermediate hives Verified 06/19/23 10:28 trimethoprim Allergy Intermediate hives Verified 10/23/23 10:28 Home Medications Medication Instructions Recorded Confirmed Type albuterol sulfate 90 mcg/actuation 1 puff inhalation Q6H PRN 05/09/18 08/01/25 History aerosol inhaler (Ventolin HFA) Shortness Of Breath folic acid 1 mg tablet 1 mg PO QAM 05/09/18 08/01/25 History omeprazole 20 mg capsule,delayed 20 mg PO BID 05/09/18 08/01/25 History release diphenhydramine HCl 25 mg capsule 25 mg PO Q6H PRN Itching 10/23/19 08/01/25 History (Benadryl) furosemide 80 mg tablet 80 mg PO BID17 10/23/19 08/01/25 History multivitamin 1 tab PO QAM 06/05/20 08/01/25 History buspirone 15 mg tablet 15 mg PO BID 10/02/22 08/01/25 History fluoxetine 20 mg capsule 20 mg PO HS 10/02/22 08/01/25 History fluticasone 500 mcg-salmeterol 50 1 inh inhalation BID 10/02/22 08/01/25 History mcg/dose blistr powdr for inhalation montelukast 10 mg tablet 10 mg PO DAILY 10/02/22 08/01/25 History ammonium lactate 5 % lotion 1 applic EXT BID #226 grams 10/08/22 08/01/25 Rx (Lac-Hydrin Five) hydroxyzine HCl 10 mg tablet 10 mg PO Q8H PRN Itching 10/29/22 08/01/25 History tiotropium bromide 2.5 2 inh inhalation DAILY 10/29/22 08/01/25 History mcg/actuation mist for inhalation (Spiriva Respimat) pregabalin 150 mg capsule 150 mg PO TID 06/04/23 08/01/25 History blood-glucose meter (Accu-Chek #1 ea 06/14/23 08/01/25 Rx Guide Glucose Meter) apixaban 5 mg tablet (Eliquis) 5 mg PO BID 08/01/25 08/01/25 History atorvastatin 40 mg tablet 40 mg PO DAILY 08/01/25 08/01/25 History losartan 25 mg tablet 25 mg PO DAILY 08/01/25 08/01/25 History oxycodone 10 mg tablet 10 mg PO QID PRN Severe Pain 08/01/25 08/01/25 History (Scale Score 7-10) semaglutide 1 mg/dose (4 mg/3 mL) 1 mg subcut WK 08/01/25 08/01/25 History subcutaneous pen injector (Ozempic) spironolactone 100 mg tablet 100 mg PO DAILY 08/01/25 08/01/25 History Past Med/Surg History Problem List (Updated 08/01/25 @ 23:40 by Jalen Baeza MD) Chronic pain History of DVT (deep vein thrombosis) Open wound of right ankle (Acute) Recurrent cellulitis of lower extremity Chronic cutaneous venous stasis ulcer Chronic wound Conjunctivitis (Acute) Bacterial conjunctivitis Wound infection (Acute) COPD exacerbation (Acute) Cellulitis of left leg (Acute) Hypoalbuminemia Open wound of both lower extremities with complication (Acute) Depression with anxiety Venous ulcers of both lower extremities (Acute) Chronic deep vein thrombosis (DVT) (Chronic) Chronic narcotic use (Chronic) MRSA (methicillin resistant Staphylococcus aureus) infection (Chronic) Anxiety (Chronic) Hypercoagulable state (Chronic) Prothrombin Factor II Mutation, 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, borderline hyperhomocystemia Tobacco abuse (Chronic) GERD (gastroesophageal reflux disease) (Chronic) Venous insufficiency (chronic) (peripheral) (Chronic) COPD (chronic obstructive pulmonary disease) (Chronic) Depression (Chronic) COPD (chronic obstructive pulmonary disease) (Chronic) DVT prophylaxis History of MRSA infection (Acute) 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 DETAILS Blood clotting disorder ? NAME Hyperlipidemia Asthma USED RESCUE INHALER TODAY Anxiety and depression Chronic narcotic use HTN (hypertension) GERD (gastroesophageal reflux disease) Chronic deep vein thrombosis (DVT) 2018 (HOSPITALIZED AT [facility]) Tobacco abuse Cellulitis BILAT LEGS (WRAPS LEGS/DRY CLOTH) CURRENTLY HAS SOME OPEN WOUNDS>GOES TO WOUND CLINIC/[facility] Surgical History History of anesthesia reaction WITH A-PORT INSERTION, WOKE UP IN MIDDLE OF PROCEDURE History of vascular access device APORT IN RT CHEST (IN PLACE) [place] teeth removed Family History Father ETOH abuse Cirrhosis Mother Hypercoagulable state Prothrombin Factor II Mutation, 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, boderline hyperhomocystemia Social History Smoking Status: Current every day smoker Tobacco Type: Cigarettes Cigarettes Per Day: 1/2 pack; Second Hand Exposure: No; Do You Dip or Chew Tobacco: No; Hx Alcohol Use: Yes Alcohol type: beer Alcohol Intake Frequency Comment: Pt reports quit drinking end of 07/2018 Hx Substance Use: No Preferred Language: Danish Communication Ability: Effective Visual Impairment: No Limitations Hearing Ability: Normal Cafeteria Assistant Required: No Beliefs That Will Affect Care: None marital status: Current Living Situation: Parent Current Living Situation Comment: With Mother How many Children do You have: 0 Feels Safe at Home: Yes Assistive Devices: Glasses Review of Systems All systems reviewed & are unremarkable except as noted in HPI & below. Physical Exam . * General: Alert and oriented, no acute distress * Constitutional: well-developed, well-nourished. * Respiratory: Normal respiratory effort, no distress * Gastrointestinal: No tenderness to palpation, no rigidity or guarding. * Skin: No rash or lesion. * Neurologic: Grossly normal * Musculoskeletal: Right lower leg with chronic venous stasis changes, mild diffuse edema. Dressings removed to the medial and lateral ankle. Proxy 1 cm ulceration to the medial lateral malleoli, with no active drainage or purulence. Mild local tenderness to these wounds. Otherwise no specific tenderness of the calf/lower leg, anterior ankle, midfoot. AROM ankle flexion/extension intact. Sensation intact plantar/dorsal foot. Brisk capillary refill. Results & Data Results & Data Laboratory Results . Abnormal Lab Results 08/01/25 08/01/25 08/01/25 10:23 14:15 17:12 WBC 8.07 RBC 5.06 Hgb 13.5 L Hct 41.7 L MCV 82.4 MCH 26.7 MCHC 32.4 RDW Std Deviation 50.7 H RDW Coeff of Kip 16.9 H Plt Count 217 MPV 9.6 Immature Gran % (Auto) 0.4 Neut % (Auto) 81.9 Lymph % (Auto) 11.0 Jasper % (Auto) 6.4 Eos % (Auto) 0.1 Baso % (Auto) 0.2 Neut # (Auto) 6.60 H Lymph # (Auto) 0.89 L Jasper # (Auto) 0.52 Eos # (Auto) 0.01 Baso # (Auto) 0.02 Immature Gran # (Auto) 0.03 ESR 72 H PT 10.7 INR 1.0 Sodium 139 Potassium 3.8 Chloride 105 Carbon Dioxide 27 Anion Gap 7 BUN 9 Creatinine 0.79 Est Cr Clr Drug Dosing 130.3 eGFR 107.56 BUN/Creatinine Ratio 11.4 Glucose 180 H POC Glucose 319 H* Lactate 1.4 Calcium 9.4 Total Bilirubin 0.6 AST 15 ALT 14 Alkaline Phosphatase 66 Total Creatine Kinase 28 L C-Reactive Protein 1.52 H Total Protein 8.4 H Albumin 4.2 Globulin 4.2 H Albumin/Globulin Ratio 1.0 Procalcitonin 0.03 Adenovirus (PCR) Not Detected B. pertussis DNA (PCR) Not Detected B.parapertussis DNA PCR Not Detected C. pneumoniae DNA (PCR) Not Detected Coronavirus OC43 (PCR) Not Detected Coronavirus HKU1 (PCR) Not Detected Coronavirus 229E (PCR) Not Detected SARS-CoV-2 (PCR) Not Detected Coronavirus NL63 (PCR) Not Detected Human Metapneumovir PCR Not Detected Influenza Type A (PCR) Not Detected Influenza Type B (PCR) Not Detected M. pneumoniae (PCR) Not Detected Parainfluenza 1 (PCR) Not Detected Parainfluenza 2 (PCR) Not Detected Parainfluenza 3 (PCR) Not Detected Parainfluenza 4 (PCR) Not Detected RSV (PCR) Not Detected Entero/Rhino (PCR) Not Detected 08/01/25 08/02/25 08/02/25 23:27 05:49 07:47 WBC 7.50 RBC 4.49 L Hgb 12.2 L Hct 37.0 L MCV 82.4 MCH 27.2 MCHC 33.0 RDW Std Deviation 50.3 H RDW Coeff of Kip 16.7 H Plt Count 209 MPV 10.3 Immature Gran % (Auto) Neut % (Auto) Lymph % (Auto) Jasper % (Auto) Eos % (Auto) Baso % (Auto) Neut # (Auto) Lymph # (Auto) Jasper # (Auto) Eos # (Auto) Baso # (Auto) Immature Gran # (Auto) ESR PT INR Sodium 135 L Potassium 3.5 Chloride 100 Carbon Dioxide 25 Anion Gap 10 BUN 13 Creatinine 0.94 Est Cr Clr Drug Dosing 107.4 eGFR 98.15 BUN/Creatinine Ratio 13.8 Glucose 179 H POC Glucose 286 H 182 H Lactate Calcium 8.7 Total Bilirubin AST ALT Alkaline Phosphatase Total Creatine Kinase C-Reactive Protein Total Protein Albumin Globulin Albumin/Globulin Ratio Procalcitonin Adenovirus (PCR) B. pertussis DNA (PCR) B.parapertussis DNA PCR C. pneumoniae DNA (PCR) Coronavirus OC43 (PCR) Coronavirus HKU1 (PCR) Coronavirus 229E (PCR) SARS-CoV-2 (PCR) Coronavirus NL63 (PCR) Human Metapneumovir PCR Influenza Type A (PCR) Influenza Type B (PCR) M. pneumoniae (PCR) Parainfluenza 1 (PCR) Parainfluenza 2 (PCR) Parainfluenza 3 (PCR) Parainfluenza 4 (PCR) RSV (PCR) Entero/Rhino (PCR) Diagnostic Findings . Chest X-Ray 08/01/25 13:36 XR chest 1V portable HISTORY: 50 years-old Male cough . COMPARISON: 10/11/2023 TECHNIQUE: AP view the chest FINDINGS: Cardiac silhouette is upper limits of normal in size. Right IJ [id number] catheter is unchanged. No pneumothorax, pleural effusion or airspace consolidation. Subacute to chronic posterior left rib fractures appear new from prior. Degenerative changes of the shoulders and spine. IMPRESSION: No acute process. ACT 112: Negative or not required by law. The above report was generated using voice recognition software. It may contain grammatical, syntax or spelling errors. Electronically signed by: Dante Cavazos M.D. 08/01/2025 2:08 PM Ankle MRI 08/01/25 14:22 Technique: Multiple T1 and T2 magnetic resonance images were obtained of the right ankle without gadolinium contrast. Findings: Some sequences are limited by motion artifact There is soft tissue ulceration overlying the medial malleolus. There is underlying low signal intensity in the subcutaneous tissue that could be due to scarring The medial, lateral, and anterior ankle tendons all appear intact without apparent tendinopathy, tenosynovitis, or tear. The anterior and posterior talofibular and tibiofibular ligaments appear to be intact. The deltoid ligament and calcaneofibular ligament appear intact also. The Achilles tendon appears unremarkable. The plantar fascia appears unremarkable also with no sign of plantar fasciitis or plantar fibromatosis. The visualized bones demonstrate normal bone marrow signal intensity with no sign of fracture or focal osseous lesion. No significant arthritic changes are seen. There is no subluxation or dislocation. There is a partially fused accessory navicular bone There is no joint effusion. The sinus tarsi appears unremarkable. No definite abnormality is seen within the tarsal tunnel. No soft tissue mass is evident. The talar dome appears normal. The visualized musculature appears unremarkable. No definite foreign body is seen. Impression: 1. No sign of osteomyelitis 2. Soft tissue ulceration overlying the medial malleolus 3. Low signal intensity in the subcutaneous fat medially, which could be due to scarring Electronically signed by Joe Peleaz 08-01-2025 7:43 PM PG Care Time/CCT Total # of Minutes Spent Total Time Spent with Patient: Total time spent is greater than 50% in coordination of care (as documented) at patient's floor/unit and/or counseling patient: [place] [address] IN/OBS CONSULT LVL 2,35M Patient Type New Medical Decision Making Straight Forward Diagnoses Open wound of right ankle S91.001A Encounter type: initial encounter (1) Open wound of right ankle Encounter type: initial encounter Qualified Code(s): S91.001A - Unspecified open wound, right ankle, initial encounter
--- NOTE | 2025-08-02 09:17 | Hospitalist Progress Note ---
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 Known chronic BLE wounds. Prior right ankle ulcer that previously healed and reopened one week ago. #Bilateral ankle wounds #MRSA nares positive #Known Venous insufficiency with chronic vte Continue IV Dapto (unable to tolerate vanco due to itching) and cefepime --MRI: no osteomyelitis previously had vascular studies in Podiatry consulted: recommending ID consult, could consider soft tissue or bone biopsy down the line if no improvement consult wound care - will initiate topical santyl until seen and eval by wound arterial dopplers ordered #COPD Exac URI symptoms last week with continued nonproductive cough, wheezing Respiratory biofire panel negative CXR: no infiltrate will complete short course of prednisone, lungs improving, will limit prednisone as it will not aide in wound healing Duonebs Continue home inhalers, montelukast #T2DM A1c: 6.7 on 06/20/25 Hold home ozempic Novolog sliding scale per protocol. Follow BSGs, may need to consider adding La ntus if needed #HTN BP elevated in ER. Patient has not had home medications Dose home losartan now and continue daily #Cirrhosis History alcoholic cirrhosis Has been abstaining from alcohol Continue furosemide, spironolactone #HLD on statin at outpt on hold 09/29 dapto #Chronic DVT continue eliquis #Chronic pain continue chronic oxy, lyrica will increase oxy to liquid 12.5mg during active phase of infection as he is on 10mg as outpt #Anxiety chronic, stable continue buspar and prozac #Tobacco abuse continue nicotine patch #DVT ppx: Eliquis FULL CODE PCP: Willa Soto Dispo: admitted to medical, seen and evaluated by podiatry, will consult wound care and ID Pt was seen and examined in collaboration with Dr. Fitzgerald, please see addendum I spent a total of 55 minutes coordinating, documenting and providing care for this patient excluding time spent in the performance of separately billed services or time spent by another provider/QHP. Admission and Anticipated Discharge Date Admission Date: August 01, 2025 Subjective Pt was seen and examined in room 310. He reports significant pain to wounds on his lower extremities. He denies any trauma. He denies f/c/s, chest pain, sob, n/v/d. Overall appetite is ok. He denies any significant drainage from the wounds. Review of Systems Review of Systems: All systems reviewed & are unremarkable except as noted in HPI & below Physical Exam Physical Exam: Gen: WD/WN, NAD, A&O x3 HEENT: Normocephalic, atraumatic, conjunctivae moist, sclerae anicteric, mucous membranes moist. Lung: Clear to Auscultation bilaterally, minimal wheezing throughout no rales/rhonchi Heart: Regular rate, regular rhythm, no murmurs, rubs, or gallops Abdomen: Soft, NT, ND +BS x 4 Extremities: b/l hyperkeratotic venous stasis changes with ulceration to R medial and lateral malleolar area and ulcer to medial L malleolar area, no surrounding erythema or drainage, wound bed is not necrotic. Skin: Warm, no rash, negative turgor. Results & Data Results & Data Vital Signs (Past 12 Hours) Vital Signs Temp Pulse Resp BP BP Pulse Ox O2 Del Method 08/02/25 07:38 36.3 C L 76 18 122/79 94 Room Air 08/02/25 07:10 77 18 94 Room Air 08/02/25 00:01 71 16 97 Room Air 08/01/25 23:49 36.4 C L 69 18 144/78 H 97 Room Air Laboratory Results I have independently reviewed and interpreted patient's labs including CBC,bmp, mrsa nares Short CBC 08/02/25 Range/Units 05:49 WBC 7.50 (4.8-10.8) K/ul Hgb 12.2 L (14.0-18.0) g/dL Hct 37.0 L (42.0-52.0) % Plt Count 209 (130-400) K/uL BMP 08/02/25 05:49 Sodium 135 L Potassium 3.5 Chloride 100 Carbon Dioxide 25 BUN 13 Creatinine 0.94 Glucose 179 H Calcium 8.7 Cardiac Enzymes 08/01/25 Range/Units 10:23 Total Creatine Kinase 28 L (30-223) U/L Medications Administered Current Inpatient Medications Acetaminophen (Acetaminophen 325 Mg Tab) 650 mg PO Q4H PRN PRN Reason: pain/fever Stop: 08/31/25 16:07 Albuterol (Albut/Ipratrop 3mg/0.5mg Neb 3 Ml Vial) 3 ml NEB Q6R OTILIA; Protocol Stop: 08/31/25 18:59 Last Admin: 08/02/25 13:23 Dose: 3 ml Apixaban (Apixaban 5 Mg Tablet) 5 mg PO BID [facility] Stop: 08/31/25 20:59 Last Admin: 08/02/25 08:05 Dose: 5 mg Buspirone HCl (Buspirone 15 Mg Tab) 15 mg PO BID [facility] Stop: 08/31/25 20:59 Last Admin: 08/02/25 08:05 Dose: 15 mg Collagenase (Collagenase Oint 30 Gm Tube) 1 appln EXT DAILY [facility] Stop: 09/01/25 10:44 Dextrose (Dextrose 50% 50 Ml Syringe) 25 - 50 ml IV UD PRN; Protocol PRN Reason: Hypoglycemia Protocol Stop: 08/31/25 16:07 Diphenhydramine HCl (Diphenhydramine 50 Mg/Ml Vial) 12.5 mg IV Q6H PRN PRN Reason: Itching Stop: 09/01/25 09:04 Last Admin: 08/02/25 09:49 Dose: 12.5 mg Docusate Sodium (Docusate Sodium Syrup 100 Mg/10 Ml Udc) 100 mg PO BID OT[facility] Stop: 09/01/25 08:59 Last Admin: 08/02/25 11:40 Dose: 100 mg Fluoxetine HCl (Fluoxetine Hcl 20 Mg Cap) 20 mg PO HS [facility] Stop: 08/31/25 20:59 Last Admin: 08/01/25 20:50 Dose: 20 mg Fluticasone/Vilanterol (Fluticasone/Vilanterol 200/25mcg 14 Puffs/Inhaler) 1 puffs INH DAILY [facility] Stop: 08/31/25 17:14 Last Admin: 08/02/25 08:05 Dose: 1 puffs Folic Acid (Folic Acid 1 Mg Tab) 1 mg PO QAM [facility] Stop: 09/01/25 08:59 Last Admin: 08/02/25 08:05 Dose: 1 mg Furosemide (Furosemide 80 Mg Tab) 80 mg PO BID17 [facility] Stop: 09/01/25 08:59 Last Admin: 08/02/25 08:05 Dose: 80 mg Glucagon (Glucagon For Inj 1 Mg Vial) 1 mg SQ UD PRN; Protocol PRN Reason: Hypoglycemia Protocol Stop: 08/31/25 16:07 Glucose (Glucose 40% Gel 15 Gm Tube) 15 - 30 gm PO UD PRN; Protocol PRN Reason: Hypoglycemia Protocol Stop: 08/31/25 16:07 Glucose (Glucose 10 Tab/Tube) 4 - 8 tab PO UD PRN; Protocol PRN Reason: Hypoglycemia Protocol Stop: 08/31/25 16:07 Cefepime HCl (Maxipime 2000mg) 2,000 mg in 20 mls @ 5 mls/min IV Q8H [facility]; Protocol Stop: 08/08/25 19:59 Last Admin: 08/02/25 11:40 Dose: 5 mls/min Daptomycin 500 mg/ Syringe 10 mls @ 6.25 mls/min IV Q24H [facility]; Protocol Stop: 08/08/25 21:59 Last Admin: 08/02/25 00:03 Dose: 6.25 mls/min Insulin Aspart (Insulin Aspart Per Unit Charge) 0 units SC ACHS [facility] Stop: 08/31/25 16:29 Last Admin: 08/02/25 12:28 Dose: 6 units Lactic Acid (Ammonium Lactate 12% Lotion 225 Gm Btl) 1 gm EXT BID [facility] Stop: 09/01/25 08:59 Last Admin: 08/02/25 09:49 Dose: 1 gm Losartan Potassium (Losartan Potassium 25 Mg Tab) 25 mg PO DAILY [facility] Stop: 09/01/25 08:59 Last Admin: 08/02/25 08:05 Dose: 25 mg Magnesium Hydroxide (Magnesium Hydroxide Susp 30 Ml Udc) 30 ml PO Q6H PRN PRN Reason: Constipation Stop: 08/31/25 16:07 Melatonin (Melatonin 3 Mg Tab) 3 mg PO HS PRN PRN Reason: Sleep Stop: 09/01/25 00:33 Last Admin: 08/02/25 00:59 Dose: 3 mg Miscellaneous (Carbohydrates For Hypoglycemia ) 15 - 30 gm PO UD PRN PRN Reason: Hypoglycemia Protocol Stop: 08/31/25 16:07 Miscellaneous (Remove Nicoderm Patch) 1 each N/A DAILY@0859 [facility] Stop: 09/01/25 08:58 Last Admin: 08/02/25 08:37 Dose: 1 each Montelukast Sodium (Montelukast Sodium 10 Mg Tablet) 10 mg PO DAILY [facility] Stop: 09/01/25 08:59 Last Admin: 08/02/25 08:05 Dose: 10 mg Morphine Sulfate (Morphine Sulfate 2 Mg/Ml Carp) 2 mg IV Q6H PRN PRN Reason: Severe Pain (Scale 7, 8, 9,10) Stop: 08/15/25 16:07 Last Admin: 08/02/25 09:49 Dose: 2 mg Multivitamins (Multivitamin Tab) 1 tab PO QAM [facility] Stop: 09/01/25 08:59 Last Admin: 08/02/25 08:04 Dose: 1 tab Naphazoline HCl/Pheniramine Maleate (Naphazolin/Pheniramin Oph Soln 15 Ml Btl) 2 drops OP BID [facility] Stop: 09/01/25 08:59 Last Admin: 08/02/25 09:48 Dose: 2 drops Nicotine (Nicotine 14 Mg/24 Hr Patch) 1 patch TD QAM [facility] Stop: 08/31/25 16:07 Last Admin: 08/02/25 08:37 Dose: 1 patch Ondansetron HCl (Ondansetron Inj 2 Mg/Ml 2 Ml Vial) 4 mg IV Q6H PRN PRN Reason: Nausea Stop: 08/31/25 16:07 Oxycodone HCl (Oxycodone Hcl Soln 5 Mg/5 Ml Udc) 12.5 mg PO Q6H PRN PRN Reason: Severe Pain (Scale 7, 8, 9,10) Stop: 08/16/25 08:29 Pantoprazole Sodium (Pantoprazole 40 Mg Tab) 40 mg PO BID [facility] Stop: 08/31/25 20:59 Last Admin: 08/02/25 08:05 Dose: 40 mg Polyethylene Glycol (Polyethylene (Miralax) 17 Gm Pack) 17 gm PO DAILY PRN PRN Reason: Constipation Stop: 08/31/25 16:07 Prednisone (Prednisone 20 Mg Tab) 40 mg PO DAILY [facility] Stop: 09/01/25 08:59 Last Admin: 08/02/25 08:04 Dose: 40 mg Pregabalin (Pregabalin 150 Mg Cap) 150 mg PO TID [facility] Stop: 08/31/25 20:59 Last Admin: 08/02/25 08:04 Dose: 150 mg Spironolactone (Spironolactone 100 Mg Tab) 100 mg PO DAILY [facility] Stop: 09/01/25 08:59 Last Admin: 08/02/25 08:04 Dose: 100 mg (1) Open wound of right ankle Encounter type: initial encounter Qualified Code(s): S91.001A - Unspecified open wound, right ankle, initial encounter (4) Type 2 diabetes mellitus Diabetes mellitus complication status: with other specified complication Diabetes mellitus biologist insulin use: unspecified [facility] insulin use status Qualified Code(s): E11.69 - Type 2 diabetes mellitus with other specified complication (6) Cirrhosis Ascites presence: unspecified Hepatic cirrhosis type: alcoholic cirrhosis Qualified Code(s): K70.30 - Alcoholic cirrhosis of liver without ascites
[2025-08-02] MEDS: NAPHAZOLIN/PHENIRAMIN OPH SOLN 15 ML BTL OP SCH (09:48)
[2025-08-02] MEDS: AMMONIUM LACTATE 12% LOTION 225 GM BTL EXT SCH (09:49)
[2025-08-02] MEDS: diphenhydrAMINE 50 MG/ML VIAL IV PRN (09:49)
--- NOTE | 2025-08-02 10:54 | Podiatry Consultation ---
Date of Consultation August 02, 2025 Assessment & Plan (1) Chronic pain: Chronic pain type: chronic pain syndrome Qualified Code(s): G89.4 - Chronic pain syndrome (2) Open wound of right ankle: Encounter type: initial encounter Qualified Code(s): S91.001A - Unspecified open wound, right ankle, initial encounter (3) Recurrent cellulitis of lower extremity: (4) Chronic cutaneous venous stasis ulcer: (5) Chronic wound: (6) Wound infection: (7) Cellulitis of left leg: (8) Open wound of both lower extremities with complication: Encounter type: initial encounter Qualified Code(s): S81.801A - Unspecified open wound, right lower leg, initial encounter; S81.802A - Unspecified open wound, left lower leg, initial encounter (9) History of MRSA infection: (10) Type 2 diabetes mellitus: Diabetes mellitus tank terminal gauger insulin use: unspecified tank terminal gauger insulin use status Diabetes mellitus complication status: with other specified complication Qualified Code(s): E11.69 - Type 2 diabetes mellitus with other specified complication Plan Patient was examined and evaluated. Wounds were redressed with Optifoam gauze. Order was placed for Santyl ointment to utilize daily with dry sterile dressing, Adaptic or Optifoam border gauze or similar. He would benefit from infectious disease consult, with history of recurrence of these wounds and requiring IV antibiotics in the past. There is no evidence of osteomyelitis so no surgical intervention is planned currently. Of note, with the recurrence, if these do fail to improve he may require bone biopsy and or soft tissue biopsy as these could be transitioning to more of a squamous cell carcinoma in situ. This is especially true given the duration of these ulcerations. Otherwise, if he does improve with IV antibiotics per infectious disease, he may be able to avoid surgical intervention. Further, an order was placed for arterial Dopplers to assess for vascular inflow. Thank you for the consult, we are happy to help out whenever possible. Will check back in on him on Monday. History of Present Illness Reason for Consultation: Bilateral ankle ulcerations Attending Physician: Praveen Fitzgerald MD History of Present Illness Patient is a 50-year-old male with history of diabetes mellitus, chronic venous stasis with ulcers, DVT on Eliquis, COPD and other medical problems presents with history of right leg wound and pain which has been gradually worsening for 1 week duration. Admits to nausea but denies any fevers and chills. Main concern is his pain returning to the bilateral ankle ulcerations. He has had these on and off for several years and they seem to respond only to IV antibiotics. This is especially true once the pain develops. Otherwise, he denies any systemic signs of infection. Has been on antibiotics and had an MRI since his admission. He has had past IV antibiotics at shelter facilities around [place]. Allergies Allergy/AdvReac Type Severity Reaction Status Date / Time peas Allergy Severe Anaphylaxis Verified 06/19/23 10:28 tuna oil Allergy Severe Anaphylaxis Verified 06/19/23 10:28 to "tuna" sulfamethoxazole Allergy Intermediate hives Verified 06/19/23 10:28 trimethoprim Allergy Intermediate hives Verified 06/19/23 10:28 Home Medications Medication Instructions Recorded Confirmed Type albuterol sulfate 90 mcg/actuation 1 puff inhalation Q6H PRN 05/09/18 08/01/25 History aerosol inhaler (Ventolin HFA) Shortness Of Breath folic acid 1 mg tablet 1 mg PO QAM 05/09/18 08/01/25 History omeprazole 20 mg capsule,delayed 20 mg PO BID 05/09/18 08/01/25 History release diphenhydramine HCl 25 mg capsule 25 mg PO Q6H PRN Itching 10/23/19 08/01/25 History (Benadryl) furosemide 80 mg tablet 80 mg PO BID17 10/23/19 08/01/25 History multivitamin 1 tab PO QAM 06/05/20 08/01/25 History buspirone 15 mg tablet 15 mg PO BID 10/02/22 08/01/25 History fluoxetine 20 mg capsule 20 mg PO HS 10/02/22 08/01/25 History fluticasone 500 mcg-salmeterol 50 1 inh inhalation BID 10/02/22 08/01/25 History mcg/dose blistr powdr for inhalation montelukast 10 mg tablet 10 mg PO DAILY 10/02/22 08/01/25 History ammonium lactate 5 % lotion 1 applic EXT BID #226 grams 10/08/22 08/01/25 Rx (Lac-Hydrin Five) hydroxyzine HCl 10 mg tablet 10 mg PO Q8H PRN Itching 10/29/22 08/01/25 History tiotropium bromide 2.5 2 inh inhalation DAILY 10/29/22 08/01/25 History mcg/actuation mist for inhalation (Spiriva Respimat) pregabalin 150 mg capsule 150 mg PO TID 06/04/23 08/01/25 History blood-glucose meter (Accu-Chek #1 ea 06/14/23 08/01/25 Rx Guide Glucose Meter) apixaban 5 mg tablet (Eliquis) 5 mg PO BID 08/01/25 08/01/25 History atorvastatin 40 mg tablet 40 mg PO DAILY 08/01/25 08/01/25 History losartan 25 mg tablet 25 mg PO DAILY 08/01/25 08/01/25 History oxycodone 10 mg tablet 10 mg PO QID PRN Severe Pain 08/01/25 08/01/25 History (Scale Score 7-10) semaglutide 1 mg/dose (4 mg/3 mL) 1 mg subcut WK 08/01/25 08/01/25 History subcutaneous pen injector (Ozempic) spironolactone 100 mg tablet 100 mg PO DAILY 08/01/25 08/01/25 History Patient History Medical History Diabetes mellitus, type 2 Pulmonary embolism 13 YEARS AGO ? DETAILS Blood clotting disorder ? NAME Hyperlipidemia Asthma USED RESCUE INHALER TODAY Anxiety and depression Chronic narcotic use HTN (hypertension) GERD (gastroesophageal reflux disease) Chronic deep vein thrombosis (DVT) 2017 (HOSPITALIZED AT [facility]) Tobacco abuse Cellulitis BILAT LEGS (WRAPS LEGS/DRY CLOTH) CURRENTLY HAS SOME OPEN WOUNDS>GOES TO WOUND CLINIC/BROWNS Surgical History History of anesthesia reaction WITH A-PORT INSERTION, WOKE UP IN MIDDLE OF PROCEDURE History of vascular access device APORT IN RT CHEST (IN PLACE) [place] teeth removed Family History Father ETOH abuse Cirrhosis Mother Hypercoagulable state Prothrombin Factor II Mutation, 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, boderline hyperhomocystemia Social History Smoking Status: Current every day smoker Tobacco Type: Cigarettes Cigarettes Per Day: 1/2 pack; Second Hand Exposure: No; Do You Dip or Chew Tobacco: No; Hx Alcohol Use: Yes Alcohol type: beer Alcohol Intake Frequency Comment: Pt reports quit drinking end of 07/2018 Hx Substance Use: No Preferred Language: Italian Communication Ability: Effective Visual Impairment: No Limitations Hearing Ability: Normal Associate Web Developer Required: No Beliefs That Will Affect Care: None marital status: Current Living Situation: Parent Current Living Situation Comment: With Mother How many Children do You have: 0 Feels Safe at Home: Yes Assistive Devices: Glasses Review of Systems Review of Systems: All systems reviewed & are unremarkable except as noted in HPI & below Constitutional: + weakness; no fever, no chills and no f atigue Eyes: no problem reported Ear, Nose, Mouth, Throat: no problem reported Respiratory: no problem reported Cardiovascular: + edema; no problem reported Gastrointestinal: + nausea; no vomiting and no problem rep orted Musculoskeletal: no problem reported Integumentary: + changing lesions, + skin ulcer, + woun ds and + erythema Neurologic: + loss of sensation, + numbness and + pa resthesia; no generalized weakness Psychiatric: no problem reported Physical Exam Physical Exam: Lower extremity focused exam: DP/PT pulses nonpalpable. Advanced trophic changes noted to the bilateral lower extremity from mid tibia distally. Skin is thin and is extensively scarred to the anterior leg. There is evidence of venous stasis and peripheral arterial insufficiency. Bilateral lower extremity is warm to the touch with erythema radiating from ulcerations to the right medial and lateral malleolus and left medial malleolus. No deep probing is noted. No significant purulent drainage is appreciated. Scant serous drainage is noted. Pain is significant on palpation and exam of these ulcerations. Wounds themselves are small, measuring 1 cm each with a fibrotic wound base. Constitutional: WD/WN, vitals as above + ill appearing and + obese Eyes: PERRL, conjunctivae normal, anicteric sclerae ENMT: external ear and nose normal, oropharynx normal Mouth: + poor dentition Neck: trachea midline, no thyromegaly normal visual inspection Respiratory: normal respiratory effort; no respiratory distress Cardiovascular: Rate/Rhythm: regular rate and regular rhythm Vessels: + posterior tibial pulses abnormal and + dorsalis pedis pulses abnormal Chest (Breasts): Chest: normal inspection of chest Gastrointestinal (Abdomen): Inspection/Auscultation: abdomen normal to inspection Percussion/Palpation: + abdomen tender and abdomen soft Musculoskeletal: no cyanosis or clubbing, extremities motor strength 5/5 Head/Neck/Chest: normocephalic and head atraumatic Extremities: extremities normal to inspection Skin: + skin tightening, + wound, + skin atrop hy, + erythema, + scar and + nails dystrophic; + abnormal skin elasticity Neurologic: awake; no focal motor deficits Psychiatric: A+Ox3, euthymic affect Results & Data Vital Signs (Past 12 Hours) Vital Signs Temp Pulse Resp BP BP Pulse Ox O2 Del Method 08/02/25 07:38 36.3 C L 76 18 122/79 94 Room Air 08/02/25 07:10 77 18 94 Room Air 08/02/25 00:01 71 16 97 Room Air 08/01/25 23:49 36.4 C L 69 18 144/78 H 97 Room Air
[2025-08-02] MEDS: DOCUSATE SODIUM SYRUP 100 MG/10 ML UDC PO SCH (11:40)
[2025-08-02] MEDS: COLLAGENASE OINT 30 GM TUBE EXT SCH (14:13)
--- NOTE | 2025-08-02 17:30 | Ultrasound Report ---
Exam: Duplex ultrasound of lower extremity arteries Clinical information: Leg wounds Comparison: None Technique: Grayscale (B-mode), color Doppler, and duplex spectral Doppler ultrasound of the lower extremity arteries. Velocity measurements obtained with angle correction of 60 degrees or less. Findings: Monophasic waveforms are seen throughout the right lower extremity, otherwise which demonstrates sharp systolic upstroke throughout the majority of the arteries above the knee, and with mild parvus tardus upstroke at the trifurcation arteries. No abnormally elevated velocities of the arteries of the right lower extremity. The highest velocity is at the right common femoral artery with a velocity of 99 cm/sec. The left common femoral, profundofemoral, and superficial femoral and popliteal arteries demonstrate triphasic waveforms. The distal popliteal artery appears biphasic. There are monophasic waveforms of the arteries on the left below the knee, including the posterior tibial artery and distal peroneal and dorsalis pedis arteries. The anterior tibial artery is not well seen. The mid peroneal artery is not well-seen. Elevated velocity at the left posterior tibial artery of 140 cm/sec. Mildly elevated left common femoral artery at 114 cm/sec. Impression: 1. Right leg: Monophasic waveforms throughout, otherwise without occlusion, suggesting proximal, aortoiliac disease. No abnormally elevated velocities to suggest a high-grade focal stenosis. . 2. Left leg: Triphasic waveforms of the arteries above the knee. The waveforms below the knee otherwise appear monophasic suggesting proximal stenosis, and there is focally elevated velocity at the left posterior tibial artery suggesting a focal area of stenosis. The left anterior tibial artery is not well-seen. The dorsalis pedis artery is patent. . Guidelines: [facility] duplex criteria for lower limb arterial occlusive disease Percent stenosis: Normal (1-19%): Peak systolic velocity (cm/s): <150, End-diastolic velocity (cm/s): <40, Velocity ratio (Vr): <1.5, Distal arterial waveform: Triphasic 20-49%: Peak systolic velocity (cm/s): 150-200, End-diastolic velocity (cm/s): <40, Velocity ratio (Vr): 1.5-2.0, Distal arterial waveform: Triphasic 50-75%: Peak systolic velocity (cm/s): 200-300, End-diastolic velocity (cm/s): <90, Velocity ratio (Vr): 2.0-3.9, Distal arterial waveform: Poststenotic turbulence distal to stenosis, monophasic distal waveform >75%: Peak systolic velocity (cm/s): >300, End-diastolic velocity (cm/s): <90, Velocity ratio (Vr): >4.0, Distal arterial waveform: Dampened distal waveform and low PSV/EDV* in the stenosis Occlusion: Absent flow by color Doppler/pulsed Doppler spectral analysis; length of occlusion estimated from distance between exit and reentry collateral arteries *PSV = peak systolic velocity, EDV = end-diastolic velocity [email or web address] Electronically signed by Carroll Vidales 08-02-2025 5:29 PM
[2025-08-02] MEDS: SODIUM CHLORIDE 0.65% NA SOLN 45 ML (OCEAN) PRN (17:44)
[2025-08-02] MEDS: LANTUS PER UNIT CHARGE SQ SCH (21:18)
[2025-08-02] MEDS: MUPIROCIN 2% OINT 22 GM TUBE SCH (23:27)
[2025-08-03 06:33] LABS: Hematocrit (blood only) 39.3 % (42.0-52.0); Hemoglobin 12.5 g/dL (14.0-18.0); Immature Granulocytes # (auto) 0.02 K/uL (0.01-0.20); Immature Granulocytes % (auto) 0.3 %; Mean Corpuscular Hemoglobin 26.7 pg (25.0-34.0); Mean Corpuscular Volume 84.0 fL (80.0-100.0); Platelet Count 194 K/uL (130-400); RDW Standard Deviation 51.5 fL (36.4-46.3); Red Blood Count 4.68 M/uL (4.70-6.10); White Blood Count 7.27 K/ul (4.8-10.8)
[2025-08-03] MEDS: ONDANSETRON INJ 2 MG/ML 2 ML VIAL IV PRN (07:27)
[2025-08-03 07:50] LABS: Anion Gap 10.0 (3-11); Blood Urea Nitrogen 20.0 mg/dl (6-23); Calcium 8.7 mg/dl (8.6-10.3); Carbon Dioxide 25.0 mmol/L (21-32); Chloride 100.0 mmol/L (98-107); Creatinine Clr Calc Pharmacy 109.7 ml/min; Glucose 208.0 mg/dl (70-99(Fasting)); Potassium 3.4 mmol/L (3.5-5.1); Sodium 135.0 mmol/L (136-145)
[2025-08-03 08:03] LABS: Hemoglobin A1C 6.7 % (4.5-5.6)
[2025-08-03] MEDS: DOCUSATE SODIUM 100 MG CAP PO SCH (08:31)
--- NOTE | 2025-08-03 10:27 | Hospitalist Progress Note ---
Date of Service August 03, 2025 Assessment & Plan (1) Open wound of right ankle: (2) Chronic cutaneous venous stasis ulcer: (3) COPD exacerbation: (4) Type 2 diabetes mellitus: (5) HTN (hypertension): (6) Cirrhosis: (7) Hyperlipidemia: (8) History of DVT (deep vein thrombosis): (9) Chronic pain: (10) Anxiety: (11) Tobacco abuse: Plan Patient is 50 year old male with PMH DM II with neuropathy, chronic venous stasis with lower extremity edema, Hx of DVT, 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 Known chronic BLE wounds. Prior right ankle ulcer that previously healed and reopened one week ago. #Bilateral ankle wounds #MRSA nares positive #Known Venous insufficiency with chronic vte Continue IV Dapto (unable to tolerate vanco due to itching) and cefepime --MRI: no osteomyelitis previously had vascular studies in --arterial duplex: Impression: 1. Right leg: Monophasic waveforms throughout, otherwise without occlusion, suggesting proximal, aortoiliac disease. No abnormally elevated velocities to suggest a high- grade focal stenosis. 2. Left leg: Triphasic waveforms of the arteries above the knee. The waveforms below the knee otherwise appear monophasic suggesting proximal stenosis, and there is focally elevated velocity at the left posterior tibial artery suggesting a focal area of stenosis. The left anterior tibial artery is not well-seen. The dorsalis pedis artery is patent. Podiatry consulted: recommending ID consult, could consider soft tissue or bone biopsy down the line if no improvement consult wound care - will initiate topical santyl until seen and eval by wound ID consulted - pt requesting to remain on IV antibiotics for a few weeks as he reports oral antibiotics do not help him, he wishes to discuss this further with Infectious disease #MRSA positive mupirocin to nares, contact precautions #COPD Exac URI symptoms last week with continued nonproductive cough, wheezing Respiratory biofire panel negative CXR: no infiltrate sx improving, discontinue prednisone Duonebs, Continue home inhalers, montelukast #Hypokalemia replace, will start 10meq daily due to lasix use #T2DM A1c: 6.7 on 06/20/25 Hold home ozempic Novolog sliding scale per protocol. Lantus added due to elevated BSG, likely elevated from steriods #HTN BP adequate, continue losartan #Cirrhosis History alcoholic cirrhosis Has been abstaining from alcohol Continue furosemide, spironolactone #HLD on statin at outpt on hold 09/29 dapto #Chronic DVT continue eliquis #Chronic pain continue chronic oxy, lyrica will increase oxy to liquid 12.5mg during active phase of infection as he is on 10mg as outpt #Anxiety chronic, stable continue buspar and prozac #Tobacco abuse continue nicotine patch #DVT ppx: Eliquis FULL CODE PCP: Willa Soto Dispo: admitted to medical, seen and evaluated by podiatry, will consult wound care and ID Pt was seen and examined in collaboration with Dr. Fitzgerald, please see addendum I spent a total of 51 minutes coordinating, documenting and providing care for this patient excluding time spent in the performance of separately billed services or time spent by another provider/QHP. Admission and Anticipated Discharge Date Admission Date: August 01, 2025 Subjective Pt was seen and examined in room 310. States he slept better last night. He feels the pain control is working. He reports receiving santyl yesterday. His appetite is good. His cough is mostly gone, occasionally productive. Denies f/c/s, chest pain, sob, n/v. He is requesting changing his stool softener from liquid to tablet form. He is also requesting to shower. Review of Systems Review of Systems: All systems reviewed & are unremarkable except as noted in HPI & below Physical Exam Physical Exam: Gen: WD/WN, NAD, A&O x3 HEENT: Normocephalic, atraumatic, conjunctivae moist, sclerae anicteric, mucous membranes moist. Lung: Clear to Auscultation bilaterally, minimal wheezing throughout no rales/rhonchi Heart: Regular rate, regular rhythm, no murmurs, rubs, or gallops Abdomen: Soft, NT, ND +BS x 4 Extremities: b/l hyperkeratotic venous stasis changes with ulceration to R medial and lateral malleolar area and ulcer to medial L malleolar area, no surrounding erythema or drainage, wound bed is not necrotic. Dressings are CDI today. Skin: Warm, no rash, negative turgor. Results & Data Results & Data Vital Signs (Past 12 Hours) Vital Signs Temp Pulse Pulse Resp BP Pulse Ox O2 Del Method 08/03/25 07:25 Room Air 08/03/25 07:09 86 18 96 Room Air 08/03/25 07:00 36.5 C 72 16 120/76 96 Room Air 08/02/25 23:01 36.7 C 90 16 111/69 95 Room Air Laboratory Results I have independently reviewed and interpreted patient's cbc, bmp, a1c Medications Administered Current Inpatient Medications Acetaminophen (Acetaminophen 325 Mg Tab) 650 mg PO Q4H PRN PRN Reason: pain/fever Stop: 08/31/25 16:07 Albuterol (Albut/Ipratrop 3mg/0.5mg Neb 3 Ml Vial) 3 ml NEB Q6R OTILIA; Protocol Stop: 08/31/25 18:59 Last Admin: 08/03/25 07:09 Dose: 3 ml Apixaban (Apixaban 5 Mg Tablet) 5 mg PO BID [facility] Stop: 08/31/25 20:59 Last Admin: 08/03/25 08:31 Dose: 5 mg Buspirone HCl (Buspirone 15 Mg Tab) 15 mg PO BID [facility] Stop: 08/31/25 20:59 Last Admin: 08/03/25 08:32 Dose: 15 mg Collagenase (Collagenase Oint 30 Gm Tube) 1 appln EXT DAILY [facility] Stop: 09/01/25 10:44 Last Admin: 08/02/25 14:13 Dose: 1 appln Dextrose (Dextrose 50% 50 Ml Syringe) 25 - 50 ml IV UD PRN; Protocol PRN Reason: Hypoglycemia Protocol Stop: 08/31/25 16:07 Diphenhydramine HCl (Diphenhydramine 50 Mg/Ml Vial) 12.5 mg IV Q6H PRN PRN Reason: Itching Stop: 09/01/25 09:04 Last Admin: 08/03/25 05:50 Dose: 12.5 mg Docusate Sodium (Docusate Sodium 100 Mg Cap) 100 mg PO BID [facility] Stop: 09/02/25 08:59 Last Admin: 08/03/25 08:31 Dose: 100 mg Fluoxetine HCl (Fluoxetine Hcl 20 Mg Cap) 20 mg PO HS [facility] Stop: 08/31/25 20:59 Last Admin: 08/02/25 21:05 Dose: 20 mg Fluticasone/Vilanterol (Fluticasone/Vilanterol 200/25mcg 14 Puffs/Inhaler) 1 puffs INH DAILY [facility] Stop: 08/31/25 17:14 Last Admin: 08/03/25 08:31 Dose: 1 puffs Folic Acid (Folic Acid 1 Mg Tab) 1 mg PO QAM [facility] Stop: 09/01/25 08:59 Last Admin: 08/03/25 08:32 Dose: 1 mg Furosemide (Furosemide 80 Mg Tab) 80 mg PO BID17 [facility] Stop: 09/01/25 08:59 Last Admin: 08/03/25 08:31 Dose: 80 mg Glucagon (Glucagon For Inj 1 Mg Vial) 1 mg SQ UD PRN; Protocol PRN Reason: Hypoglycemia Protocol Stop: 08/31/25 16:07 Glucose (Glucose 40% Gel 15 Gm Tube) 15 - 30 gm PO UD PRN; Protocol PRN Reason: Hypoglycemia Protocol Stop: 08/31/25 16:07 Glucose (Glucose 10 Tab/Tube) 4 - 8 tab PO UD PRN; Protocol PRN Reason: Hypoglycemia Protocol Stop: 08/31/25 16:07 Cefepime HCl (Maxipime 2000mg) 2,000 mg in 20 mls @ 5 mls/min IV Q8H [facility]; Protocol Stop: 08/08/25 19:59 Last Admin: 08/03/25 05:25 Dose: 5 mls/min Daptomycin 500 mg/ Syringe 10 mls @ 6.25 mls/min IV Q24H [facility]; Protocol Stop: 08/08/25 21:59 Last Admin: 08/02/25 23:27 Dose: 6.25 mls/min Insulin Aspart (Insulin Aspart Per Unit Charge) 0 units SC ACHS [facility] Stop: 08/31/25 16:29 Last Admin: 08/03/25 08:34 Dose: 9 units Insulin Glargine (Lantus Per Unit Charge) 0 - 8 units SQ BID [facility] Stop: 09/01/25 20:59 Last Admin: 08/03/25 08:34 Dose: 8 units Lactic Acid (Ammonium Lactate 12% Lotion 225 Gm Btl) 1 gm EXT BID [facility] Stop: 09/01/25 08:59 Last Admin: 08/02/25 21:03 Dose: 1 gm Losartan Potassium (Losartan Potassium 25 Mg Tab) 25 mg PO DAILY [facility] Stop: 09/01/25 08:59 Last Admin: 08/03/25 08:31 Dose: 25 mg Magnesium Hydroxide (Magnesium Hydroxide Susp 30 Ml Udc) 30 ml PO Q6H PRN PRN Reason: Constipation Stop: 08/31/25 16:07 Melatonin (Melatonin 3 Mg Tab) 3 mg PO HS PRN PRN Reason: Sleep Stop: 09/01/25 00:33 Last Admin: 08/02/25 21:03 Dose: 3 mg Miscellaneous (Carbohydrates For Hypoglycemia ) 15 - 30 gm PO UD PRN PRN Reason: Hypoglycemia Protocol Stop: 08/31/25 16:07 Miscellaneous (Remove Nicoderm Patch) 1 each N/A DAILY@0859 [facility] Stop: 09/01/25 08:58 Last Admin: 08/03/25 08:35 Dose: 1 each Montelukast Sodium (Montelukast Sodium 10 Mg Tablet) 10 mg PO DAILY [facility] Stop: 09/01/25 08:59 Last Admin: 08/03/25 08:31 Dose: 10 mg Morphine Sulfate (Morphine Sulfate 2 Mg/Ml Carp) 2 mg IV Q6H PRN PRN Reason: Severe Pain (Scale 7, 8, 9,10) Stop: 08/15/25 16:07 Last Admin: 08/03/25 07:29 Dose: 2 mg Multivitamins (Multivitamin Tab) 1 tab PO QAM [facility] Stop: 09/01/25 08:59 Last Admin: 08/03/25 08:31 Dose: 1 tab Mupirocin (Mupirocin 2% Oint 22 Gm Tube) 1 appln NA BID [facility] Stop: 08/16/25 20:59 Last Admin: 08/03/25 08:38 Dose: 1 appln Naphazoline HCl/Pheniramine Maleate (Naphazolin/Pheniramin Oph Soln 15 Ml Btl) 2 drops OP BID [facility] Stop: 09/01/25 08:59 Last Admin: 08/03/25 08:30 Dose: 2 drops Nicotine (Nicotine 14 Mg/24 Hr Patch) 1 patch TD QAM [facility] Stop: 08/31/25 16:07 Last Admin: 08/03/25 08:33 Dose: 1 patch Ondansetron HCl (Ondansetron Inj 2 Mg/Ml 2 Ml Vial) 4 mg IV Q6H PRN PRN Reason: Nausea Stop: 08/31/25 16:07 Last Admin: 08/03/25 07:27 Dose: 4 mg Oxycodone HCl (Oxycodone Hcl Soln 5 Mg/5 Ml Udc) 12.5 mg PO Q6H PRN PRN Reason: Severe Pain (Scale 7, 8, 9,10) Stop: 08/16/25 08:29 Last Admin: 08/03/25 05:21 Dose: 12.5 mg Pantoprazole Sodium (Pantoprazole 40 Mg Tab) 40 mg PO BID [facility] Stop: 08/31/25 20:59 Last Admin: 08/03/25 08:31 Dose: 40 mg Polyethylene Glycol (Polyethylene (Miralax) 17 Gm Pack) 17 gm PO DAILY PRN PRN Reason: Constipation Stop: 08/31/25 16:07 Pregabalin (Pregabalin 150 Mg Cap) 150 mg PO TID [facility] Stop: 08/31/25 20:59 Last Admin: 08/03/25 08:31 Dose: 150 mg Sodium Chloride (Sodium Chloride 0.65% Na Soln 45 Ml ([place])) 2 sprays NA Q8H PRN PRN Reason: Nasal Congestion Stop: 09/01/25 17:35 Last Admin: 08/03/25 08:30 Dose: 2 sprays Spironolactone (Spironolactone 100 Mg Tab) 100 mg PO DAILY [facility] Stop: 09/01/25 08:59 Last Admin: 08/03/25 08:32 Dose: 100 mg (1) Open wound of right ankle Encounter type: initial encounter Qualified Code(s): S91.001A - Unspecified open wound, right ankle, initial encounter (4) Type 2 diabetes mellitus Diabetes mellitus superintendent container terminal insulin use: unspecified superintendent container terminal insulin use status Diabetes mellitus complication status: with other specified complication Qualified Code(s): E11.69 - Type 2 diabetes mellitus with other specified complication (6) Cirrhosis Hepatic cirrhosis type: alcoholic cirrhosis Ascites presence: unspecified Qualified Code(s): K70.30 - Alcoholic cirrhosis of liver without ascites (9) Chronic pain Chronic pain type: chronic pain syndrome Qualified Code(s): G89.4 - Chronic pain syndrome
[2025-08-03] MEDS: POTASSIUM CHLORIDE CRTAB 20 MEQ TABCR PO STA (11:25)
[2025-08-03] MEDS: POLYETHYLENE (MIRALAX) 17 GM PACK PO PRN (13:06)
[2025-08-03] MEDS: MAGNESIUM HYDROXIDE SUSP 30 ML UDC PO PRN (17:09)
--- NOTE | 2025-08-03 18:52 | XRay Report ---
Abdominal radiograph, one view History: Abdominal pain Comparison: None Findings: Single AP view of the abdomen performed. The bowel gas pattern appears nonobstructive. Moderate colonic stool burden. No pneumatosis or portal venous gas. No abnormal calcifications project over the abdomen. No acute abnormality of the bony structures. Impression: Nonobstructive bowel gas pattern. Colonic stool burden is overall moderate. Electronically signed by Carroll Vidales 08-03-2025 6:51 PM
--- NOTE | 2025-08-04 01:01 | Electrocardiogram Report ---
Test Reason : Blood Pressure : */* mmHG Vent. Rate : 81 BPM Atrial Rate : 81 BPM P-R Int : 168 ms QRS Dur : 92 ms QT Int : 370 ms P-R-T Axes : 70 28 55 degrees QTcB Int : 429 ms Normal sinus rhythm Normal ECG When compared with ECG of 11-Oct-2023 14:45, Minimal criteria for Inferior infarct are no longer Present Confirmed by Dayami Odonnell ([email or web address]) on 08/04/2025 1:01:33 AM Referred By: REFERRED SELF Confirmed By: Dayami Odonnell
[2025-08-04 06:27] LABS: Anion Gap 8.0 (3-11); Blood Urea Nitrogen 31.0 mg/dl (6-23); Calcium 8.7 mg/dl (8.6-10.3); Carbon Dioxide 25.0 mmol/L (21-32); Chloride 99.0 mmol/L (98-107); Creatinine Clr Calc Pharmacy 74.2 ml/min; Glucose 267.0 mg/dl (70-99(Fasting)); Potassium 3.9 mmol/L (3.5-5.1); Sodium 132.0 mmol/L (136-145)
[2025-08-04] MEDS: POTASSIUM CHLORIDE 10 MEQ TABCR PO SCH (08:39)
[2025-08-04] MEDS: POLYETHYLENE (MIRALAX) 17 GM PACK PO SCH (08:43)
[2025-08-04] MEDS: DOCUSATE SODIUM/SENNA 50/8.6MG TAB PO SCH (08:45)
[2025-08-04] MEDS: MAGNESIUM CITRATE 296 ML/BTL PO STA (08:55)
[2025-08-04] MEDS: HEPARIN 100 UNIT/ML 5ML FLUSH FLUSH PRN (09:38)
[2025-08-04] MEDS ORDERED: ALBUT/IPRATROP 3MG/0.5MG NEB 3 ML VIAL NEB PRN (11:34)
[2025-08-04] MEDS: MoRPHine SULFATE 2 MG/ML CARP IV PRN (12:15)
--- NOTE | 2025-08-04 12:59 | Hospitalist Progress Note ---
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 Known chronic BLE wounds. Prior right ankle ulcer that previously healed and reopened one week ago. #Bilateral ankle wounds #MRSA nares positive #Known Venous insufficiency with chronic vte Continue IV Dapto (unable to tolerate vanco due to itching) and cefepime --MRI: no osteomyelitis previously had vascular studies in --arterial duplex: Impression: 1. Right leg: Monophasic waveforms throughout, otherwise without occlusion, suggesting proximal, aortoiliac disease. No abnormally elevated velocities to suggest a high- grade focal stenosis. 2. Left leg: Triphasic waveforms of the arteries above the knee. The waveforms below the knee otherwise appear monophasic suggesting proximal stenosis, and there is focally elevated velocity at the left posterior tibial artery suggesting a focal area of stenosis. The left anterior tibial artery is not well-seen. The dorsalis pedis artery is patent. Podiatry consulted: recommending ID consult, could consider soft tissue or bone biopsy down the line if no improvement consult wound care - will initiate topical santyl until seen and eval by wound ID consulted - pt requesting to remain on IV antibiotics for a few weeks as he reports oral antibiotics do not help him, he wishes to discuss this further with Infectious disease Wound culture: serratia marcescens, klebsiella oxytoc and Stenotrophomonas maltophilia - await ID recs for antibiotic de escalataion. #MRSA positive mupirocin to nares, contact precautions #COPD Exac URI symptoms last week with continued nonproductive cough, wheezing Respiratory biofire panel negative CXR: no infiltrate sx improving, discontinue prednisone Duonebs, Continue home inhalers, montelukast #JOVON cr bumped to 1.32 holding lasix, losartan encouraging fluids repeat bmp in a.m., resume diuretics when able avoid nephrotoxic agents #Hypokalemia replace, will start 10meq daily due to lasix use #T2DM A1c: 6.7 on 06/20/25 Hold home ozempic Novolog sliding scale per protocol. Lantus adjusted due to elevated BSG, likely elevated from steroids #HTN BP adequate, holding losartan due to JOVON #Cirrhosis History alcoholic cirrhosis Has been abstaining from alcohol on furosemide, spironolactone as OP #HLD on statin at outpt on hold 09/29 dapto #Chronic DVT continue eliquis #Chronic pain continue chronic oxy, lyrica will increase oxy to liquid 12.5mg during active phase of infection as he is on 10mg as outpt #Anxiety chronic, stable continue buspar and prozac #Tobacco abuse continue nicotine patch #DVT ppx: Eliquis FULL CODE PCP: Willa Soto Dispo: admitted to medical, awaiting ID evaluation and wound care Pt was seen and examined in collaboration with Dr. Fitzgerald, please see addendum I spent a total of 45 minutes coordinating, documenting and providing care for this patient excluding time spent in the performance of separately billed services or time spent by another provider/QHP. Admission and Anticipated Discharge Date Admission Date: August 01, 2025 Supervising Physician Co-Signing Physician Notes Patient seen and examined independently. Discussed with above provider. Patient continues to report pain in his lower extremity. No fever or chills overnight. He reports that he was discussed with infectious disease regarding IV antibiotic and would like to go to rehab if they recommend IV antibiotics. Infectious disease consultation is pending. Continue wound care and current antibiotics I have reviewed the advanced practitioner's documentation, and I agree with, and take responsibility for the plan of care I spent a total of 30 minutes coordinating, documenting, and providing care for this patient excluding time spent in the performance of separately billed services. All of the aforementioned completed while collaborating with the assigned advanced practitioner for a full treatment plan Subjective Pt was seen and examined in room 310. Pt reports not feeling well today. He feels constipated. He is nausea and bloated. He is passing gas. Denies f/c/s, chest pain, sob. He continues to have pain to his wounds. He does feel oxy is helping. Review of Systems Review of Systems: All systems reviewed & are unremarkable except as noted in HPI & below Physical Exam 2 Physical Exam: Gen: WD/WN, NAD, A&O x3 HEENT: Normocephalic, atraumatic, conjunctivae moist, sclerae anicteric, mucous membranes moist. Lung: Clear to Auscultation bilaterally, minimal wheezing throughout no rales/rhonchi Heart: Regular rate, regular rhythm, no murmurs, rubs, or gallops Abdomen: Soft, mildly distended, NT, no rebound/guarding +BS x 4 Extremities: b/l hyperkeratotic venous stasis changes with ulceration to R medial and lateral malleolar area and ulcer to medial L malleolar area, no surrounding erythema or drainage, wound bed is not necrotic. Dressings are CDI today. Skin: Warm, no rash, negative turgor. Results & Data Results & Data Vital Signs (Past 12 Hours) Vital Signs Temp Pulse Resp BP Pulse Ox O2 Del Method 08/04/25 07:33 Room Air 08/04/25 07:09 36.6 C 70 16 120/79 100 Nebulizer 08/04/25 07:06 90 16 96 Room Air Laboratory Results I have independently reviewed and interpreted patient's bmp. Medications Administered Current Inpatient Medications Acetaminophen (Acetaminophen 325 Mg Tab) 650 mg PO Q4H PRN PRN Reason: pain/fever Stop: 08/31/25 16:07 Albuterol (Albut/Ipratrop 3mg/0.5mg Neb 3 Ml Vial) 3 ml NEB Q6R PRN; Protocol PRN Reason: Wheezing Stop: 08/31/25 18:59 Apixaban (Apixaban 5 Mg Tablet) 5 mg PO BID [facility] Stop: 08/31/25 20:59 Last Admin: 08/04/25 08:44 Dose: 5 mg Bisacodyl (Bisacodyl 5 Mg Tabec) 10 mg PO DAILY PRN PRN Reason: Constipation Stop: 09/03/25 09:04 Buspirone HCl (Buspirone 15 Mg Tab) 15 mg PO BID [facility] Stop: 08/31/25 20:59 Last Admin: 08/04/25 08:43 Dose: 15 mg Collagenase (Collagenase Oint 30 Gm Tube) 1 appln EXT DAILY [facility] Stop: 09/01/25 10:44 Last Admin: 08/04/25 12:34 Dose: 1 appln Dextrose (Dextrose 50% 50 Ml Syringe) 25 - 50 ml IV UD PRN; Protocol PRN Reason: Hypoglycemia Protocol Stop: 08/31/25 16:07 Diphenhydramine HCl (Diphenhydramine 50 Mg/Ml Vial) 12.5 mg IV Q6H PRN PRN Reason: Itching Stop: 09/01/25 09:04 Last Admin: 08/04/25 12:20 Dose: 12.5 mg Fluoxetine HCl (Fluoxetine Hcl 20 Mg Cap) 20 mg PO HS [facility] Stop: 08/31/25 20:59 Last Admin: 08/03/25 21:11 Dose: 20 mg Fluticasone/Vilanterol (Fluticasone/Vilanterol 200/25mcg 14 Puffs/Inhaler) 1 puffs INH DAILY [facility] Stop: 08/31/25 17:14 Last Admin: 08/04/25 08:46 Dose: 1 puffs Folic Acid (Folic Acid 1 Mg Tab) 1 mg PO QAM [facility] Stop: 09/01/25 08:59 Last Admin: 08/04/25 08:44 Dose: 1 mg Furosemide (Furosemide 80 Mg Tab) 80 mg PO BID17 [facility] Stop: 09/01/25 08:59 Last Admin: 08/03/25 17:10 Dose: 80 mg Glucagon (Glucagon For Inj 1 Mg Vial) 1 mg SQ UD PRN; Protocol PRN Reason: Hypoglycemia Protocol Stop: 08/31/25 16:07 Glucose (Glucose 40% Gel 15 Gm Tube) 15 - 30 gm PO UD PRN; Protocol PRN Reason: Hypoglycemia Protocol Stop: 08/31/25 16:07 Glucose (Glucose 10 Tab/Tube) 4 - 8 tab PO UD PRN; Protocol PRN Reason: Hypoglycemia Protocol Stop: 08/31/25 16:07 Heparin Sodium (Porcine) (Heparin 100 Unit/Ml 5ml Flush) 5 ml FLUSH PRN PRN PRN Reason: Flush Stop: 09/03/25 05:45 Last Admin: 08/04/25 09:38 Dose: 5 ml Cefepime HCl (Maxipime 2000mg) 2,000 mg in 20 mls @ 5 mls/min IV Q8H [facility]; Protocol Stop: 08/08/25 19:59 Last Admin: 08/04/25 12:20 Dose: 5 mls/min Daptomycin 500 mg/ Syringe 10 mls @ 6.25 mls/min IV Q24H [facility]; Protocol Stop: 08/08/25 21:59 Last Admin: 08/03/25 23:12 Dose: 6.25 mls/min Insulin Aspart (Insulin Aspart Per Unit Charge) 0 units SC ACHS [facility] Stop: 08/31/25 16:29 Last Admin: 08/04/25 12:13 Dose: 6 units Insulin Glargine (Lantus Per Unit Charge) 0 - 8 units SQ BID [facility] Stop: 09/01/25 20:59 Last Admin: 08/04/25 08:40 Dose: 8 units Lactic Acid (Ammonium Lactate 12% Lotion 225 Gm Btl) 1 gm EXT BID [facility] Stop: 09/01/25 08:59 Last Admin: 08/04/25 12:35 Dose: 1 gm Losartan Potassium (Losartan Potassium 25 Mg Tab) 25 mg PO DAILY [facility] Stop: 09/01/25 08:59 Last Admin: 08/03/25 08:31 Dose: 25 mg Magnesium Hydroxide (Magnesium Hydroxide Susp 30 Ml Udc) 30 ml PO Q6H PRN PRN Reason: Constipation Stop: 08/31/25 16:07 Last Admin: 08/04/25 05:24 Dose: 30 ml Melatonin (Melatonin 3 Mg Tab) 3 mg PO HS PRN PRN Reason: Sleep Stop: 09/01/25 00:33 Last Admin: 08/03/25 21:07 Dose: 3 mg Miscellaneous (Carbohydrates For Hypoglycemia ) 15 - 30 gm PO UD PRN PRN Reason: Hypoglycemia Protocol Stop: 08/31/25 16:07 Miscellaneous (Remove Nicoderm Patch) 1 each N/A DAILY@0859 [facility] Stop: 09/01/25 08:58 Last Admin: 08/04/25 08:38 Dose: 1 each Montelukast Sodium (Montelukast Sodium 10 Mg Tablet) 10 mg PO DAILY [facility] Stop: 09/01/25 08:59 Last Admin: 08/04/25 08:43 Dose: 10 mg Morphine Sulfate (Morphine Sulfate 2 Mg/Ml Carp) 3 mg IV Q6H PRN PRN Reason: Severe Pain (Scale 7, 8, 9,10) Stop: 08/15/25 16:07 Last Admin: 08/04/25 12:15 Dose: 3 mg Multivitamins (Multivitamin Tab) 1 tab PO QAM [facility] Stop: 09/01/25 08:59 Last Admin: 08/04/25 08:43 Dose: 1 tab Mupirocin (Mupirocin 2% Oint 22 Gm Tube) 1 appln NA BID [facility] Stop: 08/16/25 20:59 Last Admin: 08/04/25 08:56 Dose: 1 appln Naphazoline HCl/Pheniramine Maleate (Naphazolin/Pheniramin Oph Soln 15 Ml Btl) 2 drops OP BID [facility] Stop: 09/01/25 08:59 Last Admin: 08/04/25 08:46 Dose: 2 drops Nicotine (Nicotine 14 Mg/24 Hr Patch) 1 patch TD QAM [facility] Stop: 08/31/25 16:07 Last Admin: 08/04/25 08:39 Dose: 1 patch Ondansetron HCl (Ondansetron Inj 2 Mg/Ml 2 Ml Vial) 4 mg IV Q6H PRN PRN Reason: Nausea Stop: 08/31/25 16:07 Last Admin: 08/03/25 13:29 Dose: 4 mg Oxycodone HCl (Oxycodone Hcl Soln 5 Mg/5 Ml Udc) 12.5 mg PO Q6H PRN PRN Reason: Severe Pain (Scale 7, 8, 9,10) Stop: 08/16/25 08:29 Last Admin: 08/04/25 09:43 Dose: 12.5 mg Pantoprazole Sodium (Pantoprazole 40 Mg Tab) 40 mg PO BID [facility] Stop: 08/31/25 20:59 Last Admin: 08/04/25 08:42 Dose: 40 mg Polyethylene Glycol (Polyethylene (Miralax) 17 Gm Pack) 17 gm PO DAILY PRN PRN Reason: Constipation Stop: 08/31/25 16:07 Last Admin: 08/03/25 13:06 Dose: 17 gm Polyethylene Glycol (Polyethylene (Miralax) 17 Gm Pack) 17 gm PO BID [facility] Stop: 09/03/25 08:59 Last Admin: 08/04/25 08:43 Dose: 17 gm Potassium Chloride (Potassium Chloride 10 Meq Tabcr) 10 meq PO DAILY [facility] Stop: 09/03/25 08:59 Last Admin: 08/04/25 08:39 Dose: 10 meq Pregabalin (Pregabalin 150 Mg Cap) 150 mg PO TID [facility] Stop: 08/31/25 20:59 Last Admin: 08/04/25 08:45 Dose: 150 mg Senna/Docusate Sodium (Docusate Sodium/Senna 50/8.6mg Tab) 1 tab PO BID [facility] Stop: 09/03/25 08:59 Last Admin: 08/04/25 08:45 Dose: 1 tab Sodium Chloride (Sodium Chloride 0.65% Na Soln 45 Ml (Tift)) 2 sprays NA Q8H PRN PRN Reason: Nasal Congestion Stop: 09/01/25 17:35 Last Admin: 08/04/25 08:50 Dose: 2 sprays Spironolactone (Spironolactone 100 Mg Tab) 100 mg PO DAILY [facility] Stop: 09/01/25 08:59 Last Admin: 08/04/25 08:42 Dose: 100 mg (1) Open wound of right ankle Encounter type: initial encounter Qualified Code(s): S91.001A - Unspecified open wound, right ankle, initial encounter (4) Type 2 diabetes mellitus Diabetes mellitus complication status: with other specified complication Diabetes mellitus rn long term care insulin use: unspecified alf insulin use status Qualified Code(s): E11.69 - Type 2 diabetes mellitus with other specified complication (6) Cirrhosis Ascites presence: unspecified Hepatic cirrhosis type: alcoholic cirrhosis Qualified Code(s): K70.30 - Alcoholic cirrhosis of liver without ascites (9) Chronic pain Chronic pain type: chronic pain syndrome Qualified Code(s): G89.4 - Chronic pain syndrome
--- NOTE | 2025-08-04 13:19 | Infectious Disease Consult ---
Date of Service August 04, 2025 Telehealth Information I performed this visit using a real-time telehealth connection between my location and the patients location ([facility]). After connecting through interactive tele-video, patient was identified by name and date of and/or wristband check.Patient (or authorized healthcare operations representative) was informed that this was a telemedicine visit and it was being conducted confidentially over secure lines. My office door was closed and no one else was present in the room with me.Patient (or authorized healthcare operations representative) provided consent to proceed with the visit, expressed an understanding of privacy and security of the telemedicine visit, and gave permission to have a hospital operations representative in the room in order to assist with the visit and to conduct portions of the visit, as needed. I informed the patient (or authorized healthcare operations representative) that I reviewed their record and presented the opportunity for them to ask any questions regarding the visit today. The patient agreed to participate. Recurrent lower extremity wounds Assessment & Plan (1) Open wound of right ankle: Plan: Wound cultures have grown serratia,Klebsiella oxytoca and stenotrophomonas (2) Serratia marcescens infection: Plan: On cefepime (3) Klebsiella infection: Plan: On cefepime Plan Patient with chronic wounds to lower extremity R>L .His MRI of right ankle did not reveal any osteomyelitis and a superficial wound culture has grown serratia,Klebsiella oxytoca and stenotrophomonas and he is on cefepime and daptomycin .I would recommend treating him with levofloxacin and minocycline for 14 days which should cover all three organisms he is growing although only susceptibilities to bactrim were done and he is allergic to bactrim .Minocycline appears to be susceptible and since we need to double cover the stenotrophomonas despite the lab not doing susceptibilities to levofloxacin I think this would be a good option as it also covers the serratia and klebsiella oxytoca .He would prefer IV antibiotics but in this scenario the only option would be cefdericol and minocycline which would be a much more expensive regimen .Thank you for allowing us to participate in the care of this patient ID will sign off History of Present Illness History of Present Illness 50 y/o M PMHx DM II with neuropathy, chronic venous stasis with lower extremity edema, Hx of DVT, 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 He has known chronic BLE wounds and a prior right ankle ulcer that previously healed and reopened one week ago. A MRI of his right ankle was not concerning for osteomyelitis and his superficial wound cultures have grown serratia,Klebsiella and stenotrophomonas and he is on cefepime and daptomycin Allergies Allergy/AdvReac Type Severity Reaction Status Date / Time peas Allergy Severe Anaphylaxis Verified 06/19/23 10:28 tuna oil Allergy Severe Anaphylaxis Verified 06/19/23 10:28 to "tuna" sulfamethoxazole Allergy Intermediate hives Verified 06/19/23 10:28 trimethoprim Allergy Intermediate hives Verified 06/19/23 10:28 Home Medications Medication Instructions Recorded Confirmed Type albuterol sulfate 90 mcg/actuation 1 puff inhalation Q6H PRN 05/09/18 08/01/25 History aerosol inhaler (Ventolin HFA) Shortness Of Breath folic acid 1 mg tablet 1 mg PO QAM 05/09/18 08/01/25 History omeprazole 20 mg capsule,delayed 20 mg PO BID 05/09/18 08/01/25 History release diphenhydramine HCl 25 mg capsule 25 mg PO Q6H PRN Itching 10/23/19 08/01/25 History (Benadryl) furosemide 80 mg tablet 80 mg PO BID17 10/23/19 08/01/25 History multivitamin 1 tab PO QAM 06/05/20 08/01/25 History buspirone 15 mg tablet 15 mg PO BID 10/02/22 08/01/25 History fluoxetine 20 mg capsule 20 mg PO HS 10/02/22 08/01/25 History fluticasone 500 mcg-salmeterol 50 1 inh inhalation BID 10/02/22 08/01/25 History mcg/dose blistr powdr for inhalation montelukast 10 mg tablet 10 mg PO DAILY 10/02/22 08/01/25 History ammonium lactate 5 % lotion 1 applic EXT BID #226 grams 10/08/22 08/01/25 Rx (Lac-Hydrin Five) hydroxyzine HCl 10 mg tablet 10 mg PO Q8H PRN Itching 10/29/22 08/01/25 History tiotropium bromide 2.5 2 inh inhalation DAILY 10/29/22 08/01/25 History mcg/actuation mist for inhalation (Spiriva Respimat) pregabalin 150 mg capsule 150 mg PO TID 06/04/23 08/01/25 History blood-glucose meter (Accu-Chek #1 ea 06/14/23 08/01/25 Rx Guide Glucose Meter) apixaban 5 mg tablet (Eliquis) 5 mg PO BID 08/01/25 08/01/25 History atorvastatin 40 mg tablet 40 mg PO DAILY 08/01/25 08/01/25 History losartan 25 mg tablet 25 mg PO DAILY 08/01/25 08/01/25 History oxycodone 10 mg tablet 10 mg PO QID PRN Severe Pain 08/01/25 08/01/25 History (Scale Score 7-10) semaglutide 1 mg/dose (4 mg/3 mL) 1 mg subcut WK 08/01/25 08/01/25 History subcutaneous pen injector (Ozempic) spironolactone 100 mg tablet 100 mg PO DAILY 08/01/25 08/01/25 History Patient History Medical History Diabetes mellitus, type 2 Pulmonary embolism 13 YEARS AGO ? DETAILS Blood clotting disorder ? NAME Hyperlipidemia Asthma USED RESCUE INHALER TODAY Anxiety and depression Chronic narcotic use HTN (hypertension) GERD (gastroesophageal reflux disease) Chronic deep vein thrombosis (DVT) 2017 (HOSPITALIZED AT [facility]) Tobacco abuse Cellulitis BILAT LEGS (WRAPS LEGS/DRY CLOTH) CURRENTLY HAS SOME OPEN WOUNDS>GOES TO WOUND CLINIC/TEN MILE Surgical History History of anesthesia reaction WITH A-PORT INSERTION, WOKE UP IN MIDDLE OF PROCEDURE History of vascular access device APORT IN RT CHEST (IN PLACE) [place] teeth removed Family History Father ETOH abuse Cirrhosis Mother Hypercoagulable state Prothrombin Factor II Mutation, 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, boderline hyperhomocystemia Social History Smoking Status: Current every day smoker Tobacco Type: Cigarettes Cigarettes Per Day: 1/2 pack; Second Hand Exposure: No; Do You Dip or Chew Tobacco: No; Hx Alcohol Use: Yes Alcohol type: beer Alcohol Intake Frequency Comment: Pt reports quit drinking end of 07/2018 Hx Substance Use: No Preferred Language: Danish Communication Ability: Effective Visual Impairment: No Limitations Hearing Ability: Normal Coremaker Required: No Beliefs That Will Affect Care: None marital status: Current Living Situation: Parent Current Living Situation Comment: With Mother How many Children do You have: 0 Feels Safe at Home: Yes Assistive Devices: Glasses and Nebulizer Review of Systems No respiratory distress Physical Exam Awake alert oriented Results & Data Vital Signs (Past 12 Hours) Vital Signs Temp Pulse Resp BP Pulse Ox O2 Del Method 08/04/25 07:33 Room Air 08/04/25 07:09 36.6 C 70 16 120/79 100 Nebulizer 08/04/25 07:06 90 16 96 Room Air Laboratory Results Surface Wound Culture Final 08/04/25-806 Organism 1 Serratia marcescens Quantity Many Sens Sensitivities to Follow Organism 2 Klebsiella oxytoc/[place] ornith Quantity Moderate Sens Sensitivities to Follow Organism 3 Stenotrophomonas maltophilia Quantity Few Sens Sensitivities to Follow S marcesc Kl oxy/[place] Steno malt RX M.I.C. RX M.I.C. RX M.I.C. --- --------- --- --------- --- --------- Amikacin S <=16 S <=16 Amox/Clav S <=8/4 Ampicillin R >16 Amp/Sul S 8/4 Cefazolin R 16 Cefepime S <=2 S <=2 Cefotaxime I 16 S <=2 Cefoxitin S <=8 Ceftriaxone R 8 S <=1 Cefuroxime S <=4 Ciprofloxacin S <=0.25 S <=0.25 Ertapenem S <=0.5 S <=0.5 Gentamicin S <=2 S <=2 Levofloxacin S <=0.5 S <=0.5 Meropenem S <=1 S <=1 Tobramycin S <=2 S <=2 Trimeth/Sulfa S <=0.5/9.5 S <=0.5/9.5 S <=0.5/9.5 Pip/Tazo I 64 S <=8 Diagnostic Findings Impression: 1. No sign of osteomyelitis 2. Soft tissue ulceration overlying the medial malleolus 3. Low signal intensity in the subcutaneous fat medially, which could be due to scarring (1) Open wound of right ankle Encounter type: initial encounter Qualified Code(s): S91.001A - Unspecified open wound, right ankle, initial encounter
[2025-08-04] MEDS: LANTUS PER UNIT CHARGE SQ SCH (21:10)
--- NOTE | 2025-08-04 21:23 | Podiatry Progress Note ---
Date of Service August 04, 2025 Assessment & Plan (1) Chronic pain: (2) Open wound of right ankle: (3) Recurrent cellulitis of lower extremity: (4) Chronic cutaneous venous stasis ulcer: (5) Chronic wound: (6) Wound infection: (7) Cellulitis of left leg: (8) Open wound of both lower extremities with complication: (9) History of MRSA infection: (10) Type 2 diabetes mellitus: Plan Patient was examined and evaluated. - Wounds are being cleaned, will benefit from continued santyl applications - Pending ID consult at the time of my visit. Will benefit from antibiotics for lower extemity cellulitis - Can consider biopsy still if they fail to improve or actively worsen; can be performed outpatient if ready for d/c whenever stable and/or bed available - Will continue to follow for now. Admission and Anticipated Discharge Date Admission Date: August 01, 2025 Subjective Patient seen at bedside at lunch. Having wounds cleaned/redressed. States pain remains. Still wants to d/c to SNF/Rehab for IV antibiotics. Believes oral antibiotics will be ineffective. Review of Systems Constitutional: + weakness; no fever, no chills and no f atigue Eyes: no problem reported Ear, Nose, Mouth, Throat: no problem reported Respiratory: no problem reported Cardiovascular: + edema; no problem reported Gastrointestinal: + nausea; no vomiting and no problem rep orted Musculoskeletal: no problem reported Integumentary: + changing lesions, + skin ulcer, + woun ds and + erythema Neurologic: + loss of sensation, + numbness and + pa resthesia; no generalized weakness Psychiatric: no problem reported Physical Exam Physical Exam: Lower extremity focused exam: DP/PT pulses nonpalpable. Advanced trophic change s noted to the bilateral lower extremity from mid tibia distally. Skin is thin and is extensively scarred to the anterior leg. There is evidence of venous stasis and peripheral arterial insufficiency. Bilateral lower extremity is warm to the touch with erythema radiating from ulcerations to the right medial and lateral malleolus and left medial malleolus. No deep probing is noted. No significant purulent drainage is appreciated. Scant serous drainage is noted. Pain is significant on palpation and exam of these ulcerations. Wounds themselves are small, measuring 1 cm each with a fibrotic wound base. Constitutional: WD/WN, vitals as above + ill appearing and + obese Eyes: PERRL, conjunctivae normal, anicteric sclerae ENMT: external ear and nose normal, oropharynx normal Mouth: + poor dentition Neck: trachea midline, no thyromegaly normal visual inspection Respiratory: normal respiratory effort; no respiratory distress Cardiovascular: Rate/Rhythm: regular rate and regular rhythm Vessels: + posterior tibial pulses abnormal and + dorsalis pedis pulses abnormal Chest (Breasts): Chest: normal inspection of chest Gastrointestinal (Abdomen): Inspection/Auscultation: abdomen normal to inspection Percussion/Palpation: + abdomen tender and abdomen soft Musculoskeletal: no cyanosis or clubbing, extremities motor strength 5/5 Head/Neck/Chest: normocephalic and head atraumatic Extremities: extremities normal to inspection Skin: + skin tightening, + wound, + skin atrop hy, + erythema, + scar and + nails dystrophic; + abnormal skin elasticity Neurologic: awake; no focal motor deficits Psychiatric: A+Ox3, euthymic affect Results & Data Results & Data Vital Signs (Past 12 Hours) Vital Signs Temp Pulse Resp BP Pulse Ox O2 Del Method 08/04/25 20:40 36.9 C 92 H 18 138/84 95 Room Air 08/04/25 15:01 36.7 C 96 H 16 130/70 95 Room Air (1) Chronic pain Chronic pain type: chronic pain syndrome Qualified Code(s): G89.4 - Chronic pain syndrome (2) Open wound of right ankle Encounter type: initial encounter Qualified Code(s): S91.001A - Unspecified open wound, right ankle, initial encounter (8) Open wound of both lower extremities with complication Encounter type: initial encounter Qualified Code(s): S81.801A - Unspecified open wound, right lower leg, initial encounter; S81.802A - Unspecified open wound, left lower leg, initial encounter (10) Type 2 diabetes mellitus 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
[2025-08-05 06:18] LABS: Hematocrit (blood only) 36.7 % (42.0-52.0); Hemoglobin 11.6 g/dL (14.0-18.0); Immature Granulocytes # (auto) 0.03 K/uL (0.01-0.20); Immature Granulocytes % (auto) 0.5 %; Mean Corpuscular Hemoglobin 26.5 pg (25.0-34.0); Mean Corpuscular Volume 83.8 fL (80.0-100.0); Platelet Count 167 K/uL (130-400); RDW Standard Deviation 51.0 fL (36.4-46.3); Red Blood Count 4.38 M/uL (4.70-6.10); White Blood Count 6.01 K/ul (4.8-10.8)
[2025-08-05 06:44] LABS: Alanine Aminotransferase 24.0 U/L (7-52); Albumin Globulin Ratio 1.0 (0.9-2); Albumin Level 3.6 gm/dl (3.4-5.0); Alkaline Phosphatase 50.0 U/L (34-104); Anion Gap 5.0 (3-11); Bilirubin,Total 0.6 mg/dl (0.2-1.0); Blood Urea Nitrogen 21.0 mg/dl (6-23); Calcium 9.0 mg/dl (8.6-10.3); Carbon Dioxide 27.0 mmol/L (21-32); Chloride 101.0 mmol/L (98-107); Creatinine Clr Calc Pharmacy 120.2 ml/min; Globulin 3.6 gm/dl (2.5-4.0); Glucose 188.0 mg/dl (70-99(Fasting)); Magnesium 2.7 mg/dl (1.7-2.4); Potassium 4.6 mmol/L (3.5-5.1); Sodium 133.0 mmol/L (136-145); Total Protein 7.2 gm/dl (6.0-8.3)
[2025-08-05 07:59] VITALS: PULSE 94; RESP 16; TEMP 98.2; O2SAT 94
[2025-08-05] MEDS: MINOCYCLINE HCL 50 MG CAP PO SCH (09:36)
--- NOTE | 2025-08-05 11:28 | Discharge Summary ---
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 Patient reports old ulcer to right ankle that had been healing. Reports went hunting and was wearing boots with compression bandage. Last week noticed "area opened up again". States having some increased pain around site and yellow type discharge. Per outpatient chart review patient was seen at [facility] ER on 07/31/25 and had Right ankle xray that showed soft tissue edema over medial malleolus and periosteal reaction along distal tibia. He was referred to podiatry. Today patient states he concerned for underlying infection. He denies fever or chills. States has increased pain to area. Today felt nauseated without vomiting. Last week with congestion and nonproductive cough and states wheezing and feeling SOB. This has continued this week and cough still nonproductive, still with wheezing and SOB. States took pain pill today but did not have any other home medications. Denies fever/chills, diaphoresis, vomiting, diarrhea, SCOTT, dizziness, syncope, CP, palpitations, hemoptysis, sore throat, rhinorrhea, abdominal pain, paresthesias, weakness, extremity weakness, extremity edema, rashes, urinary symptoms. Admission Exam Per Admitting Provider Physical Exam: Vitals signs as noted above General Appearance:Moderately built and nourished, no apparent distress Head: normocephalic, Atraumatic Eyes: normal inspection, EOMI Neck: supple, Trachea midline Respiratory/Chest: Decreased coarse breath sounds, + wheezing b/l, no accessory muscle use Cardiovascular: S1, S2, No murmur Abdomen/GI:Soft, Non tender, Bowel sounds present Extremities/Musculoskeletal:normal inspection, chronic venous stasis changes, left medial malleoli ulcer, +leg edema, warm Neurologic/Psych:AAOX3, grossly no focal neurological deficits Skin: normal color, warm Principal Diagnosis (1) Open wound of right ankle Discharge Exam General: awake, alert, no apparent distress Head: Normocephalic, atraumatic ENT: PERRL, EOMI, no pharyngeal exudate, mucous membranes moist Chest: Clear to auscultation, on room air, + expiratory wheeze, no adventitious breath sounds Cardiac: Regular rate and rhythm, no murmur, no JVD, normal peripheral pulses, good capillary refill Abdominal: NABS x 4 quadrants, soft, nondistended, nontender to palpation, no rebound or guarding Extremities: b/l hyperkeratotic venous stasis changes with ulceration to R medial and lateral malleolar area and ulcer to medial L malleolar area, no surrounding erythema, minimal clear drainage, wound bed is not necrotic. Dressings are CDI today. Otherwise normal inspection, no peripheral edema or erythema, calfs nontender to palpation Psych: Normal mood and affect Neuro: AAO x 3, strength intact bilaterally and rated 5/5, no motor deficits, speech is clear, no peripheral sensory deficits Discharge Data Allergies Allergy/AdvReac Type Severity Reaction Status Date / Time peas Allergy Severe Anaphylaxis Verified 06/19/23 10:28 tuna oil Allergy Severe Anaphylaxis Verified 06/19/23 10:28 to "tuna" sulfamethoxazole Allergy Intermediate hives Verified 06/19/23 10:28 trimethoprim Allergy Intermediate hives Verified 06/19/23 10:28 Consultations 08/01/25 12:37 ED Decision to Admit Stat 08/01/25 16:08 Consult Podiatry Routine 08/02/25 12:52 Consult Infectious Diseases Routine Ordered Studies 08/01/25 14:22 MRI Ankle [MR ankle RT wo con] Routine 08/02/25 10:40 US arterial duplex LE Routine Hospital Course (1) Open wound of right ankle: (2) Chronic cutaneous venous stasis ulcer: (3) COPD exacerbation: (4) Type 2 diabetes mellitus: (5) HTN (hypertension): (6) Cirrhosis: (7) Hyperlipidemia: (8) History of DVT (deep vein thrombosis): (9) Chronic pain: (10) Anxiety: (11) Tobacco abuse: Plan Patient is 50 year old male with PMH DM II with neuropathy, chronic venous stasis with lower extremity edema, Hx of DVT, 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 Known chronic BLE wounds. Prior right ankle ulcer that previously healed and reopened one week ago. #Bilateral ankle wounds #MRSA nares positive #Known Venous insufficiency with chronic vte - Recieved IV Dapto (unable to tolerate vanco due to itching) and cefepime from 08/01-08/05 then transitioned to PO abx levaquin 750 mg daily and minocycline 200 mg BID x 14 day course each per ID. --MRI: no osteomyelitis previously had vascular studies in --arterial duplex: Impression: 1. Right leg: Monophasic waveforms throughout, otherwise without occlusion, suggesting proximal, aortoiliac disease. No abnormally elevated velocities to suggest a high- grade focal stenosis. 2. Left leg: Triphasic waveforms of the arteries above the knee. The waveforms below the knee otherwise appear monophasic suggesting proximal stenosis, and there is focally elevated velocity at the left posterior tibial artery suggesting a focal area of stenosis. The left anterior tibial artery is not well-seen. The dorsalis pedis artery is patent. Podiatry consulted: recommending ID consult, could consider soft tissue or bone biopsy down the line if no improvement consult wound care - will initiate topical santyl until seen and eval by wound ID consulted - Wound culture: serratia marcescens, klebsiella oxytoc and Stenotrophomonas maltophilia. They recommended levofloxacin and minocycline for 14 days #MRSA positive mupirocin to nares, contact precautions #COPD Exac URI symptoms last week with continued nonproductive cough, wheezing Respiratory biofire panel negative CXR: no infiltrate sx improving, discontinue prednisone Duonebs, Continue home inhalers, montelukast #JOVON cr bumped to 1.32 and resolved. Cr 0.84 on dc holding lasix, losartan - can resume on dc encouraging fluids avoid nephrotoxic agents #Hypokalemia Resolved. Cont Kcl 10meq daily due to lasix use #T2DM A1c: 6.7 on 06/20/25 Hold home ozempic Novolog sliding scale per protocol. Lantus adjusted due to elevated BSG, likely elevated from steroids #HTN BP adequate, losartan was held initially and resumed. #Cirrhosis History alcoholic cirrhosis Has been abstaining from alcohol on furosemide, spironolactone as OP #HLD on statin at outpt - was held initally while on dapto and was resumed on DC. #Chronic DVT continue eliquis #Chronic pain continue chronic oxy, lyrica will increase oxy to liquid 12.5mg during active phase of infection as he is on 10mg as outpt #Anxiety chronic, stable continue buspar and prozac #Tobacco abuse continue nicotine patch #DVT ppx: Eliquis FULL CODE PCP: Willa Soto Dispo: admitted to medical, awaiting ID evaluation and wound care Pt was seen and examined in collaboration with Dr. Fitzgerald, please see addendum I spent a total of 35 minutes coordinating, documenting and providing care for this patient excluding time spent in the performance of separately billed services or time spent by another provider/QHP. Total Time Total Time Spent Total Time Spent (In Minutes): 35 Discharge Plan Discharge Items Patient Disposition: Home - Self-Care Reason For Visit: LE WOUND Discharge Diagnosis: MRSA bilateral ankle wounds, venous insufficiency Condition on Discharge: Fair Activity: Resume your previous activity Lifting: Gradually increase as tolerated Bathing: No limitations Exercise/Sports: Rest today and Gradually increase as tolerated Weightbearing: Full weightbearing Non-emergency contact: Primary Care Provider Call non-emergency contact if: you have any medication questions, your symptoms worsen, you have a fever, your wound has increased redness and your wound has increased drainage Follow-up/Referrals: Willa Soto PA-C [Primary Care Provider] - (Date & Time 08/11/2025 2:00 PM Provider: Jamie Martines MD [facility] ) Diet: Carb Consistent or DM2 and Heart Healthy Addtl Attending Provider Instructions: You were admitted to [facility] due to right ankle ulceration and diagnosed with MRSA ankle wound growing three bacteria. . During your stay here you were treated with supportive care, medications including antibiotics ( cefepime and daptomycin) and were seen by Infectious disease regarding growing out three bacteria including serratia marcescens, klebsiella oxytoca and stenotrophomonas maltophilia--- you were prescribed antibiotics levofloxacin and minocycline for 14 days per their recommendations. Imaging studies which were completed include MRI of the foot which was negative for osteomyelitis ( no bony infection), and also had Arterial doppler for blood flow in your lower legs. You were seen by Podiatry and they recommended that you continue to see the wound clinic, there was no surgical procedures done during this admission. Medications: Continue taking you medications as prescribed: Antibiotics: Levofloxacin 750 mg daily x 14 days Minocycline 200 mg twice daily x 14 days Appointments: Follow up with PCP within 1 week, an appointment has been requested for you. Follow up with wound clinic. Pending Studies at Discharge: No Stand-Alone Forms: My [facility], Smoking Cessation Medications and DC Order Prescriptions: New levofloxacin 750 mg Tablet 750 mg PO DAILY@1100 14 Days Qty: 14 0RF minocycline 100 mg capsule 200 mg PO BID 14 Days Qty: 56 0RF Continued omeprazole 20 mg Capsule,Delayed Release(Dr/Ec) 20 mg PO BID folic acid 1 mg Tablet 1 mg PO QAM albuterol sulfate [Ventolin HFA] 90 mcg/actuation Hfa Aerosol Inhaler 1 puff INHALATION Q6H PRN (Reason: Shortness Of Breath) furosemide 80 mg tablet 80 mg PO BID17 diphenhydramine HCl [Benadryl] 25 mg capsule 25 mg PO Q6H PRN (Reason: Itching) multivitamin Tablet 1 tab PO QAM fluticasone propion-salmeterol 500-50 mcg/dose blister with device 1 inh INHALATION BID montelukast 10 mg tablet 10 mg PO DAILY fluoxetine 20 mg capsule 20 mg PO HS buspirone 15 mg tablet 15 mg PO BID Lac-Hydrin Five 5 % Lotion 1 applic EXT BID Qty: 226 2RF hydroxyzine HCl 10 mg tablet 10 mg PO Q8H PRN (Reason: Itching) Spiriva Respimat 2.5 mcg/actuation mist 2 inh INHALATION DAILY pregabalin 150 mg Capsule 150 mg PO TID (DME) blood-glucose meter [Accu-Chek Guide Glucose Meter] Misc See Rx Instructions .Route Qty: 1 1RF Rx Instructions: As directed atorvastatin 40 mg tablet 40 mg PO DAILY Eliquis 5 mg tablet 5 mg PO BID losartan 25 mg tablet 25 mg PO DAILY spironolactone 100 mg tablet 100 mg PO DAILY oxycodone 10 mg tablet 10 mg PO QID PRN (Reason: Severe Pain (Scale Score 7-10)) Ozempic 1 mg/dose (4 mg/3 mL) pen injector 1 mg SUBCUT WK Discharge Orders: Discharge Order (Routine); Ordered 08/05/25 Ordered By: Sherly Mccabe/Other Patient Handouts: Nutrition for Wound Healing, Managing Type 2 Diabetes Admission Data Admit Date/Time: 08/01/25 13:26 Attending Provider: Praveen Fitzgerald Admit Provider: Karl Azul Primary Care Provider: Willa Soto Other Providers: Karl Azul; Gerson La; Humberto Price; Kristine Sinha; Abhishek Ahmadi I.; Jono Roy II; Aileen Talbert; Aleksandr Fabian; Andi Gilbert; Jada Lim Supervising Physician Co-Signing Physician Notes Patient seen and examined independently. Discussed with above provider. Recommendation by infectious disease was reviewed with the patient; they recommended oral antibiotic for total of 14 days. Discussion was done with patient to monitor his response while on antibiotic. I also discussed following c closely with wound care clinic for continued wound care. Patient was discharged home with instructions to follow-up with PCP, wound care clinic I have reviewed the advanced practitioner's documentation, and I agree with, and take responsibility for the plan of care I spent a total of 30 minutes coordinating, documenting, and providing care for this patient excluding time spent in the performance of separately billed services. All of the aforementioned completed while collaborating with the assigned advanced practitioner for a full treatment plan
[2025-08-05 12:42] VITALS: BP 144/78
--- NOTE | 2025-08-07 14:26 | Podiatry Consultation ---
Date of Consultation August 07, 2025 Assessment & Plan (1) Chronic pain: Chronic pain type: chronic pain syndrome Qualified Code(s): G89.4 - Chronic pain syndrome (2) Open wound of right ankle: Encounter type: initial encounter Qualified Code(s): S91.001A - Unspecified open wound, right ankle, initial encounter (3) Recurrent cellulitis of lower extremity: (4) Chronic cutaneous venous stasis ulcer: (5) Chronic wound: (6) Wound infection: (7) Cellulitis of left leg: (8) Open wound of both lower extremities with complication: Encounter type: initial encounter Qualified Code(s): S81.801A - Unspecified open wound, right lower leg, initial encounter; S81.802A - Unspecified open wound, left lower leg, initial encounter (9) History of MRSA infection: (10) Type 2 diabetes mellitus: 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 Wounds were redressed with Optifoam gauze. He should continue with Santyl ointment as advised at prior admission, Adaptic or Optifoam border gauze or similar. He would benefit from infectious disease consult, with history of recurrence of these wounds and requiring IV antibiotics in the past. There is no evidence of osteomyelitis so no surgical intervention is planned currently. Of note, with the recurrence, if these do fail to improve he may require bone biopsy and or soft tissue biopsy as these could be transitioning to more of a squamous cell carcinoma in situ. This is especially true given the duration of these ulcerations. This would be a more chronic, slow-evolving change and could specifically be performed on an outpatient basis. He may more acutely benefit from sharp debridement and bone biopsy, with the worsening cellulitis, and if his were the case, we would obtain soft tissue biopsy at the same time. Prior to this, he would benefit from vascular medicine consult, given his evidence of moderate to severe peripheral arterial disease. Surgical debridement and biopsy could worsen his condition if his vascular inflow isn't optimal. In this case, he may benefit from primary amputation if he fails to improve. Otherwise, if he does improve with IV antibiotics per infectious disease, he may be able to avoid surgical intervention. Thank you for the consult, we are happy to help out whenever possible. Will check back in on him on Monday. History of Present Illness Reason for Consultation: Bilateral ankle ulcerations/cellulitis Attending Physician: Praveen Fitzgerald MD History of Present Illness Patient is a 50-year-old male with history of diabetes mellitus, chronic venous stasis with ulcers, DVT on Eliquis, COPD and other medical problems presents with history of right leg wound and pain which has been gradually worsening for 1 week duration. Admits to nausea but denies any fevers and chills. Main concern is his pain returning to the bilateral ankle ulcerations. He has had these on and off for several years and they seem to respond only to IV antibiotics. This is especially true once the pain develops. Otherwise, he denies any systemic signs of infection. Has been on antibiotics and had an MRI since his admission. He has had past IV antibiotics at [facility] facilities around [place]. Allergies Allergy/AdvReac Type Severity Reaction Status Date / Time peas Allergy Severe Anaphylaxis Verified 06/19/23 10:28 tuna oil Allergy Severe Anaphylaxis Verified 06/19/23 10:28 to "tuna" sulfamethoxazole Allergy Intermediate hives Verified 06/19/23 10:28 trimethoprim Allergy Intermediate hives Verified 06/19/23 10:28 Home Medications Medication Instructions Recorded Confirmed Type albuterol sulfate 90 mcg/actuation 1 puff inhalation Q6H PRN 05/09/18 08/07/25 History aerosol inhaler (Ventolin HFA) Shortness Of Breath folic acid 1 mg tablet 1 mg PO QAM 05/09/18 08/07/25 History omeprazole 20 mg capsule,delayed 20 mg PO BID 05/09/18 08/07/25 History release diphenhydramine HCl 25 mg capsule 25 mg PO Q6H PRN Itching 10/23/19 08/07/25 History (Benadryl) furosemide 80 mg tablet 80 mg PO BID17 10/23/19 08/07/25 History multivitamin 1 tab PO QAM 06/05/20 08/07/25 History buspirone 15 mg tablet 15 mg PO BID 10/02/22 08/07/25 History fluoxetine 20 mg capsule 20 mg PO HS 10/02/22 08/07/25 History fluticasone 500 mcg-salmeterol 50 1 inh inhalation BID 10/02/22 08/07/25 History mcg/dose blistr powdr for inhalation montelukast 10 mg tablet 10 mg PO DAILY 10/02/22 08/07/25 History ammonium lactate 5 % lotion 1 applic EXT BID #226 grams 10/08/22 08/07/25 Rx (Lac-Hydrin Five) hydroxyzine HCl 10 mg tablet 10 mg PO Q8H PRN Itching 10/29/22 08/07/25 History tiotropium bromide 2.5 2 inh inhalation DAILY 10/29/22 08/07/25 History mcg/actuation mist for inhalation (Spiriva Respimat) pregabalin 150 mg capsule 150 mg PO TID 06/04/23 08/07/25 History blood-glucose meter (Accu-Chek #1 ea 06/14/23 08/07/25 Rx Guide Glucose Meter) apixaban 5 mg tablet (Eliquis) 5 mg PO BID 08/01/25 08/07/25 History atorvastatin 40 mg tablet 40 mg PO DAILY 08/01/25 08/07/25 History losartan 25 mg tablet 25 mg PO DAILY 08/01/25 08/07/25 History oxycodone 10 mg tablet 10 mg PO QID PRN Severe Pain 08/01/25 08/07/25 History (Scale Score 7-10) semaglutide 1 mg/dose (4 mg/3 mL) 1 mg subcut WK 08/01/25 08/07/25 History subcutaneous pen injector (Ozempic) spironolactone 100 mg tablet 100 mg PO DAILY 08/01/25 08/07/25 History levofloxacin 750 mg tablet 750 mg PO DAILY@1100 14 days #14 08/05/25 08/07/25 Rx tabs minocycline 100 mg capsule 200 mg (2 x 100 mg) PO BID 14 days 08/05/25 08/07/25 Rx #56 caps Patient History Medical History Diabetes mellitus, type 2 Pulmonary embolism 13 YEARS AGO ? DETAILS Blood clotting disorder ? NAME Hyperlipidemia Asthma USED RESCUE INHALER TODAY Anxiety and depression Chronic narcotic use HTN (hypertension) GERD (gastroesophageal reflux disease) Chronic deep vein thrombosis (DVT) 2017 (HOSPITALIZED AT [facility]) Tobacco abuse Cellulitis BILAT LEGS (WRAPS LEGS/DRY CLOTH) CURRENTLY HAS SOME OPEN WOUNDS>GOES TO WOUND CLINIC[facility] Surgical History History of anesthesia reaction WITH A-PORT INSERTION, WOKE UP IN MIDDLE OF PROCEDURE History of vascular access device APORT IN RT CHEST (IN PLACE) Prosperity teeth removed Family History Father ETOH abuse Cirrhosis Mother Hypercoagulable state Prothrombin Factor II Mutation, 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, boderline hyperhomocystemia Social History Smoking Status: Current some day smoker Tobacco Type: Cigarettes Cigarettes Per Day: 1/2 pack; Second Hand Exposure: No; Do You Dip or Chew Tobacco: No; Hx Alcohol Use: Yes Alcohol type: beer Alcohol Intake Frequency Comment: Pt reports quit drinking end of 07/2018 Hx Substance Use: No Preferred Language: Frisian Communication Ability: Effective Visual Impairment: No Limitations Hearing Ability: Normal 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 Required: No Beliefs That Will Affect Care: None marital status: Current Living Situation: Parent Current Living Situation Comment: With Mother How many Children do You have: 0 Feels Safe at Home: Yes Assistive Devices: Glasses and Nebulizer Review of Systems Constitutional: + fever and + weakness; no chills Eyes: + problem reported Ear, Nose, Mouth, Throat: no problem reported Respiratory: + cough, + chest congestion and + wheezi ng Cardiovascular: + edema and + claudication Gastrointestinal: no problem reported Genitourinary: no problem reported Musculoskeletal: no problem reported Integumentary: + non-healing lesions, + changing lesion s, + skin ulcer, + wounds and + erythema Worsening odor, worse on the right than left Neurologic: + generalized weakness and + problem rep orted Psychiatric: no problem reported Endocrine: no problem reported Physical Exam Physical Exam: Lower extremity focused exam: DP/PT pulses nonpalpable. Advanced trophic changes noted to the bilateral lower extremity from mid tibia distally. Skin is thin and is extensively scarred to the anterior leg. There is evidence of venous stasis and peripheral arterial insufficiency. Bilateral lower extremity is warm to the touch with erythema radiating from ulcerations to the right medial and lateral malleolus and left medial malleolus. No deep probing is noted. No significant purulent drainage is appreciated. Scant serous drainage is noted. Pain is significant on palpation and exam of these ulcerations. Wounds themselves are small, measuring 1 cm each with a fibrotic wound base. Constitutional: WD/WN, vitals as above + ill appearing and + obese Eyes: PERRL, conjunctivae normal, anicteric sclerae ENMT: external ear and nose normal, oropharynx normal Mouth: + poor dentition Neck: trachea midline, no thyromegaly normal visual inspection Respiratory: normal respiratory effort; no respiratory distress Cardiovascular: Rate/Rhythm: regular rate and regular rhythm Vessels: + posterior tibial pulses abnormal and + dorsalis pedis pulses abnormal Chest (Breasts): Chest: normal inspection of chest Gastrointestinal (Abdomen): Inspection/Auscultation: abdomen normal to inspection Percussion/Palpation: + abdomen tender and abdomen soft Musculoskeletal: no cyanosis or clubbing, extremities motor strength 5/5 Head/Neck/Chest: normocephalic and head atraumatic Extremities: extremities normal to inspection Skin: + skin tightening, + wound, + skin atrop hy, + erythema, + scar and + nails dystrophic; + abnormal skin elasticity Neurologic: awake; no focal motor deficits Psychiatric: A+Ox3, euthymic affect
== END 2025-08-05 12:49 | disposition home or self-care (01) | DRG 593 ==
LOC: ED 09:24 → EDINP 13:26 → SUATTDRO 13:26 → 3E 16:09

== ENCOUNTER 2025-08-07 09:34 | Inpatient (IN) ==
--- NOTE | 2025-08-07 10:04 | Emergency Department Note ---
Impression & Plan Nausea and vomiting, Right lower quadrant abdominal pain, Duodenitis, Elevated procalcitonin, Open wound of right lower extremity ED Provider Note HISTORY OF PRESENT ILLNESS: Patient is a 50-year-old male presenting with nausea, vomiting and cold sweats. Patient reports that he was just discharged from the hospital 48 hours ago due to an infection in his right ankle. He states that he has been having increasing amounts of foul-smelling drainage from the wound on his medial ankle. He states that last night he had cold sweats. He states that he woke up this morning has been very nauseous and has been vomiting throughout the night. He does report some lower abdominal pain but thinks that it secondary to all of his vomiting. Denies any diarrhea. He states he is having increasing pain in his right ankle. He denies any measured fever at home. Denies any chest pain or shortness of breath. ROS: as above PHYSICAL EXAM: Constitutional: Patient appears in no acute distress. HENT: Head: Normocephalic and atraumatic. Eyes: EOMI, PERRL Mouth/Throat: Mucous membranes moist. Neck: Trachea midline. Neck supple. Cardiovascular: Tachycardic with regular rhythm. No murmurs, rubs or gallops. Intact distal pulses. Pulmonary/Chest: No respiratory distress. Breath sounds clear and equal bilaterally. No wheezes or rales. Abdominal: Abdomen soft, no rebound or guarding. RLQ TTP Musculoskeletal: - RLE: Superficial wound to the lateral malleolus. Patient has notable skin breakdown to the medial malleolus. No palpable discharge expressed from the opening in the medial portion of the wound bed. No palpable crepitus. Skin: Warm and dry. Psychiatric: Appropriate mood and affect for situation. Neurological: Alert and keenly responsive. CN II-XII grossly intact, moving all extremities equally and fully. MDM: - Vitals signs showed hypertension, tachycardia and tachypnea. - History obtained via patient. History as above. - Chronic conditions affecting care: DM-2; chronic venous stasis of both lower extremities; GERD; hx of DVT; alcoholic cirrhosis; HLD - Differential diagnoses include, but are not limited to: Appendicitis; diverticulitis; bowel obstruction; necrotizing fasciitis; cellulitis - Order placed for continuous cardiac monitoring. At this time, monitor showed rate of 78 bpm with normal sinus rhythm, per my interpretation. - External medical records reviewed. Discharge summary dated 08/05/2025 was reviewed. Patient was admitted for an open wound of the right ankle. He was initially on daptomycin and cefepime from 08/01 to 08/05 and then transition to Levaquin and minocycline per infectious disease consultation. - EKG image interpreted by myself showed normal sinus rhythm. Rate tachycardic at 104 bpm. QT 336. No acute ischemic changes. - Laboratory workup interpreted by myself showed normal WBC; stable electrolytes; normal AST/ALT; normal troponin; elevated procalcitonin; normal lactic acid - Blood cultures obtained - CXR image reviewed interpreted by myself is made for pneumonia, per my interpretation. Radiology notes pulmonary vascular congestion. - CT abdomen/pelvis with IV contrast showed a normal appendix. Noted to have some inflammatory stranding adjacent to the pancreas and pancro-duodenal groove concerning for acute pancreatitis versus duodenitis. - Patient initially given 1L NS, 1g IV tylenol, 4 mg IV zofran and 50 mcg IV fentanyl - The acute pancreatitis versus duodenitis may be the source of the patient's nausea and vomiting. However, on review of his chart he did not have an elevated procalcitonin during his hospitalization. He does report he has been compliant with his outpatient antibiotic dosing. Will discuss case with hospitalist service. - Discussion was had with trimming caser about patient's case and need for admission - Hospitalist consulted for admission - Patient admitted to [facility] hospitalist service for further evaluation and management. ASSESSMENT AND PLAN: Diagnosis: Nausea and vomiting; right lower quadrant abdominal pain; duodenitis; elevated procalcitonin; open wound of right lower extremity Plan: Admit Past Med/Surg History Problem List (Updated 08/07/25 @ 13:33 by Henrietta Heard MD) Open wound of right lower extremity (Acute) Elevated procalcitonin (Acute) Duodenitis (Acute) Right lower quadrant abdominal pain (Acute) Nausea and vomiting (Acute) Klebsiella infection Serratia marcescens infection Chronic pain History of DVT (deep vein thrombosis) Open wound of right ankle (Acute) Recurrent cellulitis of lower extremity Chronic cutaneous venous stasis ulcer Chronic wound Conjunctivitis (Acute) Bacterial conjunctivitis Wound infection (Acute) COPD exacerbation (Acute) Cellulitis of left leg (Acute) Hypoalbuminemia Open wound of both lower extremities with complication (Acute) Depression with anxiety Venous ulcers of both lower extremities (Acute) Chronic deep vein thrombosis (DVT) (Chronic) Chronic narcotic use (Chronic) MRSA (methicillin resistant Staphylococcus aureus) infection (Chronic) Anxiety (Chronic) Hypercoagulable state (Chronic) Prothrombin Factor II Mutation, 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, borderline hyperhomocystemia Tobacco abuse (Chronic) GERD (gastroesophageal reflux disease) (Chronic) Venous insufficiency (chronic) (peripheral) (Chronic) COPD (chronic obstructive pulmonary disease) (Chronic) Depression (Chronic) COPD (chronic obstructive pulmonary disease) (Chronic) DVT prophylaxis History of MRSA infection (Acute) 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 DETAILS Blood clotting disorder ? NAME Hyperlipidemia Asthma USED RESCUE INHALER TODAY Anxiety and depression Chronic narcotic use HTN (hypertension) GERD (gastroesophageal reflux disease) Chronic deep vein thrombosis (DVT) 2017 (HOSPITALIZED AT [facility]) Tobacco abuse Cellulitis BILAT LEGS (WRAPS LEGS/DRY CLOTH) CURRENTLY HAS SOME OPEN WOUNDS>GOES TO WOUND CLINIC/[facility] Surgical History History of anesthesia reaction WITH A-PORT INSERTION, WOKE UP IN MIDDLE OF PROCEDURE History of vascular access device APORT IN RT CHEST (IN PLACE) [place] teeth removed Family History Father ETOH abuse Cirrhosis Mother Hypercoagulable state Prothrombin Factor II Mutation, 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, boderline hyperhomocystemia Social History Smoking Status: Current some day smoker Tobacco Type: Cigarettes Cigarettes Per Day: 1/2 pack; Second Hand Exposure: No; Do You Dip or Chew Tobacco: No; Hx Alcohol Use: Yes Alcohol type: beer Alcohol Intake Frequency Comment: Pt reports quit drinking end of 07/2018 Hx Substance Use: No Preferred Language: [place] Communication Ability: Effective Visual Impairment: No Limitations Hearing Ability: Normal Catalytic Case Operator Required: No Beliefs That Will Affect Care: None marital status: Current Living Situation: Parent Current Living Situation Comment: With Mother How many Children do You have: 0 Feels Safe at Home: Yes Assistive Devices: Glasses and Nebulizer Allergies Allergies Allergy/AdvReac Type Severity Reaction Status Date / Time peas Allergy Severe Anaphylaxis Verified 06/19/23 10:28 tuna oil Allergy Severe Anaphylaxis Verified 06/19/23 10:28 to "tuna" sulfamethoxazole Allergy Intermediate hives Verified 06/19/23 10:28 trimethoprim Allergy Intermediate hives Verified 06/19/23 10:28 Home Meds Home Medications Medication Instructions Recorded Confirmed albuterol sulfate 90 mcg/actuation 1 puff inhalation Q6H PRN 05/09/18 08/07/25 aerosol inhaler (Ventolin HFA) Shortness Of Breath folic acid 1 mg tablet 1 mg PO QAM 05/09/18 08/07/25 omeprazole 20 mg capsule,delayed 20 mg PO BID 05/09/18 08/07/25 release diphenhydramine HCl 25 mg capsule 25 mg PO Q6H PRN Itching 10/23/19 08/07/25 (Benadryl) furosemide 80 mg tablet 80 mg PO BID17 10/23/19 08/07/25 multivitamin 1 tab PO QAM 06/05/20 08/07/25 buspirone 15 mg tablet 15 mg PO BID 10/02/22 08/07/25 fluoxetine 20 mg capsule 20 mg PO HS 10/02/22 08/07/25 fluticasone 500 mcg-salmeterol 50 1 inh inhalation BID 10/02/22 08/07/25 mcg/dose blistr powdr for inhalation montelukast 10 mg tablet 10 mg PO DAILY 10/02/22 08/07/25 hydroxyzine HCl 10 mg tablet 10 mg PO Q8H PRN Itching 10/29/22 08/07/25 tiotropium bromide 2.5 2 inh inhalation DAILY 10/29/22 08/07/25 mcg/actuation mist for inhalation (Spiriva Respimat) pregabalin 150 mg capsule 150 mg PO TID 06/04/23 08/07/25 apixaban 5 mg tablet (Eliquis) 5 mg PO BID 08/01/25 08/07/25 atorvastatin 40 mg tablet 40 mg PO DAILY 08/01/25 08/07/25 losartan 25 mg tablet 25 mg PO DAILY 08/01/25 08/07/25 oxycodone 10 mg tablet 10 mg PO QID PRN Severe Pain 08/01/25 08/07/25 (Scale Score 7-10) semaglutide 1 mg/dose (4 mg/3 mL) 1 mg subcut WK 08/01/25 08/07/25 subcutaneous pen injector (Ozempic) spironolactone 100 mg tablet 100 mg PO DAILY 08/01/25 08/07/25 Previous Rx's Medication Instructions Recorded ammonium lactate 5 % lotion 1 applic EXT BID #226 grams 10/08/22 (Lac-Hydrin Five) blood-glucose meter (Accu-Chek #1 ea 06/14/23 Guide Glucose Meter) levofloxacin 750 mg tablet 750 mg PO DAILY@1100 14 days #14 08/05/25 tabs minocycline 100 mg capsule 200 mg (2 x 100 mg) PO BID 14 days 08/05/25 #56 caps Results & Data (ED) Vital Signs Vital Signs - 24 hr 08/07/25 09:38 08/07/25 10:00 08/07/25 10:22 Temperature 36.2 C L Temperature Source Temporal Artery Scan Pulse Rate 109 H 97 H Pulse Rate [Apical] 99 H Respiratory Rate 28 H 16 16 Respiratory Effort / Characteristics Non-Labored Spontaneous Non-Labored Spontaneous Respiratory Depth Shallow Normal Respiratory Pattern Regular Blood Pressure 155/81 H Blood Pressure [Right Arm] 151/96 H Blood Pressure Mean 105 Blood Pressure Mean [Right Arm] 114 Pulse Oximetry 97 96 94 Oxygen Delivery Method Room Air Room Air Room Air Sepsis Recent Fever Within 48 Hours No Sepsis New/Unexplained Change in Mental Status No Sepsis Action Taken by Nursing No Action Required 08/07/25 10:30 08/07/25 11:29 08/07/25 11:35 Temperature Temperature Source Pulse Rate 91 H Pulse Rate [Apical] 100 H 86 Respiratory Rate 16 16 Respiratory Effort / Characteristics Non-Labored Spontaneous Non-Labored Spontaneous Respiratory Depth Normal Normal Respiratory Pattern Regular Regular Blood Pressure Blood Pressure [Right Arm] 150/85 H 112/89 Blood Pressure Mean Blood Pressure Mean [Right Arm] 106 96 Pulse Oximetry 95 96 Oxygen Delivery Method Room Air Room Air Sepsis Recent Fever Within 48 Hours Sepsis New/Unexplained Change in Mental Status Sepsis Action Taken by Nursing 08/07/25 13:17 Temperature Temperature Source Pulse Rate Pulse Rate [Apical] 78 Respiratory Rate 19 Respiratory Effort / Characteristics Respiratory Depth Respiratory Pattern Blood Pressure Blood Pressure [Right Arm] 144/87 H Blood Pressure Mean Blood Pressure Mean [Right Arm] 106 Pulse Oximetry 98 Oxygen Delivery Method Sepsis Recent Fever Within 48 Hours Sepsis New/Unexplained Change in Mental Status Sepsis Action Taken by Nursing Laboratory Data 08/07/25 10:14 08/07/25 10:14 Lab Results 08/07/25 08/07/25 Range/Units 10:14 10:27 WBC 5.63 (4.8-10.8) K/ul RBC 4.78 (4.70-6.10) M/uL Hgb 12.9 L (14.0-18.0) g/dL Hct 39.5 L (42.0-52.0) % MCV 82.6 (80.0-100.0) fL MCH 27.0 (25.0-34.0) pg MCHC 32.7 (32.0-36.0) g/dL RDW Std Deviation 48.6 H (36.4-46.3) fL RDW Coeff of Kip 15.9 H (11.5-14.5) % Plt Count 201 (130-400) K/uL MPV 10.4 (9.4-12.4) fL Immature Gran % (Auto) 0.4 % Neut % (Auto) 79.6 % Lymph % (Auto) 11.4 % [place] % (Auto) 6.9 % Eos % (Auto) 1.2 % Baso % (Auto) 0.5 % Neut # (Auto) 4.48 (1.40-6.50) K/uL Lymph # (Auto) 0.64 L (1.20-3.40) K/uL [place] # (Auto) 0.39 (0.11-0.59) K/uL Eos # (Auto) 0.07 (0.00-0.50) K/uL Baso # (Auto) 0.03 (0.00-0.20) K/uL Immature Gran # (Auto) 0.02 (0.01-0.20) K/uL Sodium 136 (136-145) mmol/L Potassium 4.4 (3.5-5.1) mmol/L Chloride 105 (98-107) mmol/L Carbon Dioxide 21 (21-32) mmol/L Anion Gap 10 (3-11) BUN 15 (6-23) mg/dl Creatinine 0.70 (0.6-1.4) mg/dl Est Cr Clr Drug Dosing 145.5 ml/min eGFR 111.56 BUN/Creatinine Ratio 21.4 H (10-20) Glucose 189 H (70-99(Fasting)) mg/dl Lactate 1.6 (0.4-2.0) mmol/L Calcium 9.4 (8.6-10.3) mg/dl Magnesium 2.1 (1.7-2.4) mg/dl Total Bilirubin 0.7 (0.2-1.0) mg/dl Direct Bilirubin 0.1 (0-0.2) mg/dl AST 15 (13-39) U/L ALT 21 (7-52) U/L Alkaline Phosphatase 53 (34-104) U/L Troponin I High Sens 3.7 (0-20) pg/ml Total Protein 8.2 (6.0-8.3) gm/dl Albumin 4.0 (3.4-5.0) gm/dl Procalcitonin 1.40 H (0-0.5) ng/ml Administered Medications Discontinued Medications Fentanyl Citrate (Fentanyl Citrate Pf 100 Mcg/2 Ml Vial) 50 mcg IV NOW STA Stop: 08/07/25 10:34 Last Admin: 08/07/25 11:15 Dose: 50 mcg Documented By: SEEMA Sodium Chloride (Nss) 1,000 mls @ 999 mls/hr IV .Q1H1M ONE Stop: 08/07/25 11:01 Last Infusion: 08/07/25 12:23 Dose: Infused Documented By: Admin: 08/07/25 11:15 Dose: 999 mls/hr Documented By: SEEMA Acetaminophen (Ofirmev) 1,000 mg in 100 mls @ 400 mls/hr IV NOW STA Stop: 08/07/25 10:47 Last Infusion: 08/07/25 12:23 Dose: Infused Documented By: Admin: 08/07/25 11:15 Dose: 400 mls/hr Documented By: SEEMA Ioversol (Optiray 320 100ml) 93 ml IV ONCE ONE Stop: 08/07/25 12:09 Last Admin: 08/07/25 12:08 Dose: 93 ml Documented By: MATTHEW Ondansetron HCl (Ondansetron Inj 2 Mg/Ml 2 Ml Vial) 4 mg IV NOW STA Stop: 08/07/25 10:02 Last Admin: 08/07/25 11:16 Dose: 4 mg Documented By: SEEMA Imaging Data Radiologist's Impression: Chest X-Ray 08/07/25 09:52 XR chest 1V portable HISTORY: 50 years-old Male Sepsis COMPARISON: 525 TECHNIQUE: AP view of the chest FINDINGS: Cardiac silhouette is upper limits of normal in size. Right IJ Wnppij-o-Zzja catheter is unchanged. Pulmonary vascular congestion with interstitial coarsening. No pneumothorax or large pleural effusion. Mild hazy left basilar opacities are new from prior. Subacute to chronic posterior left rib fractures appear new from prior. Degenerative changes of the shoulders and spine. IMPRESSION: 1. Cardiomegaly with pulmonary vascular congestion. 2. Mild hazy left basilar opacities may represent atelectasis versus pneumonitis. ACT 112: Negative or not required by law. The above report was generated using voice recognition software. It may contain grammatical, syntax or spelling errors. Electronically signed by: Dante Cavazos M.D. 08/07/2025 11:14 AM Abdomen/Pelvis CT 08/07/25 10:[address] WITH IV CONTRAST CT DOSE: 1552.28 mGy.cm HISTORY: Acute right lower quadrant abdominal pain RLQ abd pain TECHNIQUE: Multiaxial CT images of the abdomen and pelvis were performed following the IV administration of 93 cc of Optiray, A dose lowering technique was utilized adhering to the principles of ALARA. COMPARISON STUDY: Chest CT 05/13/2019 FINDINGS: Bibasilar groundglass opacities with intralobular septal thickening has progressed from 2019. Bronchial wall thickening with mucous plugging. There is no pneumatosis or pneumoperitoneum. The spleen is enlarged measuring up to 19 cm, mildly increased in size from prior. Unremarkable adrenal glands and gallbladder. Hepatic steatosis. Patency of the hepatic and portal veins. There is mild inflammatory stranding involving the uncinate process pancreas and pancreaticoduodenal groove. Nonspecific bilateral perinephric stranding. 5 mm nonobstructing calculus of the mid pole right kidney. No ureteral calculi or hydronephrosis. Partially decompressed urinary bladder. Atherosclerosis of the aorta with high-grade stenosis of the infrarenal segment. Additional prominent calcifications are noted in the IVC, left renal and bilateral iliac veins suggestive of chronic thrombi. Pathologically enlarged lower iliac chain lymph nodes could a 2.5 x 1.5 cm lymph node on the left, image 339 and a 3.0 x 1.2 cm lymph node on the right, image 334. A 2.7 x 2.2 cm right inguinal chain lymph node is seen on image 405. No bowel obstruction or bowel wall thickening. Mild colonic fecal retention. Normal appendix. No acute fracture. IMPRESSION: 1. Mild inflammatory stranding adjacent to the uncinate process pancreas and pancreaticoduodenal groove suspicious for mild acute pancreatitis versus duodenitis. Correlate with serum lipase. 2. Normal appendix. 3. Splenomegaly redemonstrated, slightly increased in size compared to the 2019 comparison exam. 4. Nonspecific pathologically enlarged iliac and inguinal chain lymph nodes could be correlated with tissue sampling to exclude a lymphoproliferative process. 5. Atherosclerosis with high-grade infrarenal abdominal aortic stenosis. ACT 112: Negative or not required by law. The above report was generated using voice recognition software. It may contain grammatical, syntax or spelling errors. Electronically signed by: Dante Cavazos M.D. 08/07/2025 12:35 PM Discharge Plan Visit Data Chief Complaint: Infection Stated Complaint: INFECTION, WORSENING ED Provider: Henrietta Heard Discharge Problem: Nausea and vomiting, Right lower quadrant abdominal pain, Duodenitis, Elevated procalcitonin, Open wound of right lower extremity Patient Disposition: Admitted As Inpatient Condition: Fair Forms Stand Alone Forms: [facility] Prescriptions Prescriptions: No Action omeprazole 20 mg Capsule,Delayed Release(Dr/Ec) 20 mg PO BID folic acid 1 mg Tablet 1 mg PO QAM albuterol sulfate [Ventolin HFA] 90 mcg/actuation Hfa Aerosol Inhaler 1 puff INHALATION Q6H PRN (Reason: Shortness Of Breath) furosemide 80 mg tablet 80 mg PO BID17 diphenhydramine HCl [Benadryl] 25 mg capsule 25 mg PO Q6H PRN (Reason: Itching) multivitamin Tablet 1 tab PO QAM fluticasone propion-salmeterol 500-50 mcg/dose blister with device 1 inh INHALATION BID montelukast 10 mg tablet 10 mg PO DAILY fluoxetine 20 mg capsule 20 mg PO HS buspirone 15 mg tablet 15 mg PO BID Lac-Hydrin Five 5 % Lotion 1 applic EXT BID Qty: 226 2RF hydroxyzine HCl 10 mg tablet 10 mg PO Q8H PRN (Reason: Itching) Spiriva Respimat 2.5 mcg/actuation mist 2 inh INHALATION DAILY pregabalin 150 mg Capsule 150 mg PO TID (DME) blood-glucose meter [Accu-Chek Guide Glucose Meter] Misc See Rx Instructions .Route Qty: 1 1RF Rx Instructions: As directed atorvastatin 40 mg tablet 40 mg PO DAILY Eliquis 5 mg tablet 5 mg PO BID losartan 25 mg tablet 25 mg PO DAILY spironolactone 100 mg tablet 100 mg PO DAILY oxycodone 10 mg tablet 10 mg PO QID PRN (Reason: Severe Pain (Scale Score 7-10)) Ozempic 1 mg/dose (4 mg/3 mL) pen injector 1 mg SUBCUT WK levofloxacin 750 mg Tablet 750 mg PO DAILY@1100 14 Days Qty: 14 0RF minocycline 100 mg capsule 200 mg PO BID 14 Days Qty: 56 0RF Referrals Referrals: Willa Soto PA-C [Primary Care Provider] -
[2025-08-07 10:45] LABS: Hematocrit (blood only) 39.5 % (42.0-52.0); Hemoglobin 12.9 g/dL (14.0-18.0); Immature Granulocytes # (auto) 0.02 K/uL (0.01-0.20); Immature Granulocytes % (auto) 0.4 %; Mean Corpuscular Hemoglobin 27.0 pg (25.0-34.0); Mean Corpuscular Volume 82.6 fL (80.0-100.0); Platelet Count 201 K/uL (130-400); RDW Standard Deviation 48.6 fL (36.4-46.3); Red Blood Count 4.78 M/uL (4.70-6.10); White Blood Count 5.63 K/ul (4.8-10.8)
[2025-08-07 11:13] LABS: Albumin Level 4.0 gm/dl (3.4-5.0); Anion Gap 10.0 (3-11); Bilirubin,Total 0.7 mg/dl (0.2-1.0); Calcium 9.4 mg/dl (8.6-10.3); Carbon Dioxide 21.0 mmol/L (21-32); Chloride 105.0 mmol/L (98-107); Magnesium 2.1 mg/dl (1.7-2.4); Potassium 4.4 mmol/L (3.5-5.1); Sodium 136.0 mmol/L (136-145)
[2025-08-07] MEDS: SODIUM CHLORIDE 0.9% 1,000 ML IV ONE (11:15)
[2025-08-07] MEDS: ACETAMINOPHEN 1,000 MG/100 ML VIAL IV STA (11:15)
[2025-08-07] MEDS: ONDANSETRON INJ 2 MG/ML 2 ML VIAL IV STA (11:16)
--- NOTE | 2025-08-07 11:16 | XRay Report ---
XR chest 1V portable HISTORY: 50 years-old Male Sepsis COMPARISON: 525 TECHNIQUE: AP view of the chest FINDINGS: Cardiac silhouette is upper limits of normal in size. Right IJ Uejdry-i-Tblu catheter is unchanged. P ulmonary vascular congestion with interstitial coarsening. No pneumothorax or large pleural effusion. Mild hazy left basilar opacities are new from prior. Subacute to chronic posterior left rib fracture s appear new from prior. Degenerative changes of the shoulders and spine. IMPRESSION: 1. Cardiomegaly with pulmonary vascular congestion. 2. Mild hazy left basilar opacities may represent atelectasis versus pneumonitis. ACT 112: Negative or not required by law. The above report was generated using voice recognition software. It may contain grammatical, syntax o r spelling errors. Electronically signed by: Dante Cavazos M.D. 08/07/2025 11:14 AM
[2025-08-07 11:19] LABS: Alanine Aminotransferase 21.0 U/L (7-52); Alkaline Phosphatase 53.0 U/L (34-104); Blood Urea Nitrogen 15.0 mg/dl (6-23); Creatinine Clr Calc Pharmacy 145.5 ml/min; Glucose 189.0 mg/dl (70-99(Fasting)); Total Protein 8.2 gm/dl (6.0-8.3)
--- NOTE | 2025-08-07 11:58 | Electrocardiogram Report ---
Test Reason : Blood Pressure : */* mmHG Vent. Rate : 104 BPM Atrial Rate : 104 BPM P-R Int : 154 ms QRS Dur : 86 ms QT Int : 336 ms P-R-T Axes : 68 -2 52 degrees QTcB Int : 441 ms Sinus tachycardia Possible Inferior infarct , age undetermined Abnormal ECG When compared with ECG of 01-Aug-2025 10:05, Borderline criteria for Inferior infarct are now Present Confirmed by Richy Woods ([id number]) on 08/07/2025 11:58:00 AM Referred By: Confirmed By: Richy Woods
[2025-08-07] MEDS: OPTIRAY 320 100ml IV ONE (12:08)
--- NOTE | 2025-08-07 12:37 | CT Scan Report ---
ABDOMEN AND PELVIS CT WITH IV CONTRAST CT DOSE: 1552.28 mGy.cm HISTORY: Acute right lower quadrant abdominal pain RLQ abd pain TECHNIQUE: Multiaxial CT images of the abdomen and pelvis were performed following the IV administrat ion of 93 cc of Optiray, A dose lowering technique was utilized adhering to the principles of ALARA. COMPARISON STUDY: Chest CT 05/13/2019 FINDINGS: Bibasilar groundglass opacities with intralobular septal thickening has progressed from 201 9. Bronchial wall thickening with mucous plugging. There is no pneumatosis or pneumoperitoneum. The s pleen is enlarged measuring up to 19 cm, mildly increased in size from prior. Unremarkable adrenal gl ands and gallbladder. Hepatic steatosis. Patency of the hepatic and portal veins. There is mild infla mmatory stranding involving the uncinate process pancreas and pancreaticoduodenal groove. Nonspecific bilateral perinephric stranding. 5 mm nonobstructing calculus of the mid pole right kidne y. No ureteral calculi or hydronephrosis. Partially decompressed urinary bladder. Atherosclerosis of the aorta with high-grade stenosis of the infrarenal segment. Additional prominent calcifications are noted in the IVC, left renal and bilateral iliac veins suggestive of chronic thrombi. Pathologically enlarged lower iliac chain lymph nodes could a 2.5 x 1.5 cm lymph node on the left, image 339 and a 3.0 x 1.2 cm lymph node on the right, image 334. A 2.7 x 2.2 cm right inguinal chain lymph node is se en on image 405. No bowel obstruction or bowel wall thickening. Mild colonic fecal retention. Normal appendix. No acute fracture. IMPRESSION: 1. Mild inflammatory stranding adjacent to the uncinate process pancreas and pancreaticoduodenal groo ve suspicious for mild acute pancreatitis versus duodenitis. Correlate with serum lipase. 2. Normal appendix. 3. Splenomegaly redemonstrated, slightly increased in size compared to the 2019 comparison exam. 4. Nonspecific pathologically enlarged iliac and inguinal chain lymph nodes could be correlated with tissue sampling to exclude a lymphoproliferative process. 5. Atherosclerosis with high-grade infrarenal abdominal aortic stenosis. ACT 112: Negative or not required by law. The above report was generated using voice recognition software. It may contain grammatical, syntax o r spelling errors. Electronically signed by: Dante Cavazos M.D. 08/07/2025 12:35 PM
[2025-08-07] MEDS: FAMOTIDINE 20MG IV PUSH 20 MG/5 ML SYR IV STA (14:07)
[2025-08-07] MEDS: CEFEPIME 2000MG 2,000 MG/20 ML SYR IV STA (14:07)
[2025-08-07] MEDS: ALBUT/IPRATROP 3MG/0.5MG NEB 3 ML VIAL NEB STA (14:07)
[2025-08-07] MEDS: MoRPHine SULFATE 4 MG/ML 1 ML CARP\\VIAL IV STA (14:07)
[2025-08-07] MEDS: FUROSEMIDE 40 MG/4 ML VIAL IV ONE (14:07)
--- NOTE | 2025-08-07 14:31 | History & Physical Report ---
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 Pt admitted 08/01-08/05 for wound infection. D/C on oral antibiotics. Pt wishes to pursue IV at discharge given his history. Sx have worsening including worsening pain to L ankle and worsening foul smell. He also c/o cold sweats, nausea and vomiting. He also c/o increased SOB. #Bilateral ankle wounds #MRSA nares positive #Known Venous insufficiency with chronic vte will place pt back on IV cefepime for now --MRI: no osteomyelitis previously had vascular studies in --arterial duplex 08/02: Impression: 1. Right leg: Monophasic waveforms throughout, otherwise without occlusion, suggesting proximal, aortoiliac disease. No abnormally elevated velocities to suggest a high-grade focal stenosis. 2. Left leg: Triphasic waveforms of the arteries above the knee. Th e waveforms below the knee otherwise appear monophasic suggesting proximal stenosis, and there is focally elevated velocity at the left posterior tibial artery suggesting a focal area of stenosis. The left anterior tibial artery is not well-seen. The dorsalis pedis artery is patent. Will re consult podiatry, consideration for possible tissue biopsy will consult Vascular Dr. Merritt james Wound culture: serratia marcescens, klebsiella oxytoc and Stenotrophomonas maltophilia - ID rec de escalating to levofloxacin/minocycline #MRSA positive mupirocin to nares, contact precautions #COPD #Abnormal CT #Possible PNA or pneumonitis URI symptoms last week with continued nonproductive cough, wheezing Respiratory biofire panel negative during last admission, will repeat CXR: b/l opacities concerning for pneumonitis/atelectasis will schedule duonebs, budesonide and formoterol nebs FV and incentive spirometery #T2DM A1c: 6.7 on 06/20/25 Hold home ozempic lantus/novolog per protocol #HTN BP adequate, holding losartan due to JOVON #Cirrhosis History alcoholic cirrhosis Has been abstaining from alcohol on furosemide, spironolactone as OP #HLD on statin at outpt on hold 09/29 dapto #Chronic DVT continue eliquis #Chronic pain continue chronic oxy, lyrica will increase oxy to liquid 12.5mg during active phase of infection as he is on 10mg as outpt #Anxiety chronic, stable continue buspar and prozac #Tobacco abuse continue nicotine patch #DVT ppx: Eliquis FULL CODE PCP: Willa Soto Dispo: admitted to medical, consult podiatry and ID Pt was seen and examined in collaboration with Dr. Verduzco, please see addendum I spent a total of 76 minutes coordinating, documenting and providing care for this patient excluding time spent in the performance of separately billed services or time spent by another provider/QHP. History of Present Illness Chief Complaint: Worsening LLE wound. 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 Known chronic BLE wounds. Prior right ankle ulcer that previously healed and reopened ~ one week ago. He was recently hospitalized 08/01-08/05 secondary to his worsening wounds. His wound culture grew klebsiella, serratia, stenotrophomonas. He was started on IV dapto/cefepime. He was initially seen by ID who recommended d/c on levaquin and minocyclin. Pt was adamant that he required IV antibiotics as he reports on oral antibiotics he always ends right back in the ED. Since being discharged he reports increased nausea, decreased appetite and worsening pain specifically to his left ankle. He has been taking pain medication without relief. He also feels left ankle is more foul-smelling. He complains of cold sweats, but is unsure of any documented fever. Again overall poor appetite. He did have episodes of nausea and vomiting. He has had relatively loose stool, but this is in the setting of significant laxative use during hospital stay. He feels this is improving. He feels ever since starting the oral antibiotics his symptoms have been worsening. He again expressed wishes to be discharged to SNF with IV antibiotics. Allergies Allergy/AdvReac Type Severity Reaction Status Date / Time peas Allergy Severe Anaphylaxis Verified 06/19/23 10:28 tuna oil Allergy Severe Anaphylaxis Verified 06/19/23 10:28 to "tuna" sulfamethoxazole Allergy Intermediate hives Verified 06/19/23 10:28 trimethoprim Allergy Intermediate hives Verified 06/19/23 10:28 Home Medications Medication Instructions Recorded Confirmed Type albuterol sulfate 90 mcg/actuation 1 puff inhalation Q6H PRN 05/09/18 08/07/25 History aerosol inhaler (Ventolin HFA) Shortness Of Breath folic acid 1 mg tablet 1 mg PO QAM 05/09/18 08/07/25 History omeprazole 20 mg capsule,delayed 20 mg PO BID 05/09/18 08/07/25 History release diphenhydramine HCl 25 mg capsule 25 mg PO Q6H PRN Itching 10/23/19 08/07/25 History (Benadryl) furosemide 80 mg tablet 80 mg PO BID17 10/23/19 08/07/25 History multivitamin 1 tab PO QAM 06/05/20 08/07/25 History buspirone 15 mg tablet 15 mg PO BID 10/02/22 08/07/25 History fluoxetine 20 mg capsule 20 mg PO HS 10/02/22 08/07/25 History fluticasone 500 mcg-salmeterol 50 1 inh inhalation BID 10/02/22 08/07/25 History mcg/dose blistr powdr for inhalation montelukast 10 mg tablet 10 mg PO DAILY 10/02/22 08/07/25 History ammonium lactate 5 % lotion 1 applic EXT BID #226 grams 10/08/22 08/07/25 Rx (Lac-Hydrin Five) hydroxyzine HCl 10 mg tablet 10 mg PO Q8H PRN Itching 10/29/22 08/07/25 History tiotropium bromide 2.5 2 inh inhalation DAILY 10/29/22 08/07/25 History mcg/actuation mist for inhalation (Spiriva Respimat) pregabalin 150 mg capsule 150 mg PO TID 06/04/23 08/07/25 History blood-glucose meter (Accu-Chek #1 ea 06/14/23 08/07/25 Rx Guide Glucose Meter) apixaban 5 mg tablet (Eliquis) 5 mg PO BID 08/01/25 08/07/25 History atorvastatin 40 mg tablet 40 mg PO DAILY 08/01/25 08/07/25 History losartan 25 mg tablet 25 mg PO DAILY 08/01/25 08/07/25 History oxycodone 10 mg tablet 10 mg PO QID PRN Severe Pain 08/01/25 08/07/25 History (Scale Score 7-10) semaglutide 1 mg/dose (4 mg/3 mL) 1 mg subcut WK 08/01/25 08/07/25 History subcutaneous pen injector (Ozempic) spironolactone 100 mg tablet 100 mg PO DAILY 08/01/25 08/07/25 History levofloxacin 750 mg tablet 750 mg PO DAILY@1100 14 days #14 08/05/25 08/07/25 Rx tabs minocycline 100 mg capsule 200 mg (2 x 100 mg) PO BID 14 days 08/05/25 08/07/25 Rx #56 caps Past Med/Surg History Problem List Open wound of right lower extremity (Acute) Elevated procalcitonin (Acute) Duodenitis (Acute) Right lower quadrant abdominal pain (Acute) Nausea and vomiting (Acute) Klebsiella infection Serratia marcescens infection Chronic pain History of DVT (deep vein thrombosis) Open wound of right ankle (Acute) Recurrent cellulitis of lower extremity Chronic cutaneous venous stasis ulcer Chronic wound Conjunctivitis (Acute) Bacterial conjunctivitis Wound infection (Acute) COPD exacerbation (Acute) Cellulitis of left leg (Acute) Hypoalbuminemia Open wound of both lower extremities with complication (Acute) Depression with anxiety Venous ulcers of both lower extremities (Acute) Chronic deep vein thrombosis (DVT) (Chronic) Chronic narcotic use (Chronic) MRSA (methicillin resistant Staphylococcus aureus) infection (Chronic) Anxiety (Chronic) Hypercoagulable state (Chronic) Prothrombin Factor II Mutation, 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, borderline hyperhomocystemia Tobacco abuse (Chronic) GERD (gastroesophageal reflux disease) (Chronic) Venous insufficiency (chronic) (peripheral) (Chronic) COPD (chronic obstructive pulmonary disease) (Chronic) Depression (Chronic) COPD (chronic obstructive pulmonary disease) (Chronic) DVT prophylaxis History of MRSA infection (Acute) 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 DETAILS Blood clotting disorder ? NAME Hyperlipidemia Asthma USED RESCUE INHALER TODAY Anxiety and depression Chronic narcotic use HTN (hypertension) GERD (gastroesophageal reflux disease) Chronic deep vein thrombosis (DVT) 2017 (HOSPITALIZED AT [facility]) Tobacco abuse Cellulitis BILAT LEGS (WRAPS LEGS/DRY CLOTH) CURRENTLY HAS SOME OPEN WOUNDS>GOES TO WOUND CLINIC/[facility] Surgical History History of anesthesia reaction WITH A-PORT INSERTION, WOKE UP IN MIDDLE OF PROCEDURE History of vascular access device APORT IN RT CHEST (IN PLACE) [place] teeth removed Family History Father ETOH abuse Cirrhosis Mother Hypercoagulable state Prothrombin Factor II Mutation, 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, boderline hyperhomocystemia Social History Smoking Status: Current some day smoker Tobacco Type: Cigarettes Cigarettes Per Day: 1/2 pack; Second Hand Exposure: No; Do You Dip or Chew Tobacco: No; Hx Alcohol Use: Yes Alcohol type: beer Alcohol Intake Frequency Comment: Pt reports quit drinking end of 07/2018 Hx Substance Use: No Preferred Language: [place] Communication Ability: Effective Visual Impairment: No Limitations Hearing Ability: Normal Rib Sawyer Required: No Beliefs That Will Affect Care: None marital status: Current Living Situation: Parent Current Living Situation Comment: With Mother How many Children do You have: 0 Feels Safe at Home: Yes Assistive Devices: Glasses and Nebulizer Review of Systems Review of Systems: All systems reviewed & are unremarkable except as noted in HPI & below Physical Exam Physical Exam: Gen: WD/WN, NAD, toxic appearing, A&O x3 HEENT: Normocephalic, atraumatic, conjunctivae moist, sclerae anicteric, mucous membranes moist. Lung: Clear to Auscultation bilaterally, minimal wheezing throughout no rales/rhonchi Heart: Regular rate, regular rhythm, no murmurs, rubs, or gallops Abdomen: Soft, mildly distended, NT, no rebound/guarding +BS x 4 Extremities: b/l hyperkeratotic venous stasis changes with ulceration to R medial and lateral malleolar area and ulcer to medial L malleolar area, no surrounding erythema or drainage, wound bed is not necrotic. Dressings are CDI today. Skin: Warm, no rash, negative turgor. Results & Data Results & Data Vital Signs (Past 12 Hours) Vital Signs Temp Pulse Pulse Resp BP BP Pulse Ox 08/07/25 13:17 78 19 144/87 H 98 08/07/25 11:35 86 16 112/89 96 08/07/25 11:29 91 H 08/07/25 10:30 100 H 16 150/85 H 95 08/07/25 10:22 97 H 16 94 08/07/25 10:00 99 H 16 151/96 H 96 08/07/25 09:38 36.2 C L 109 H 28 H 155/81 H 97 O2 Del Method 08/07/25 13:17 08/07/25 11:35 Room Air 08/07/25 11:29 08/07/25 10:30 Room Air 08/07/25 10:22 Room Air 08/07/25 10:00 Room Air 08/07/25 09:38 Room Air Laboratory Results I have independently reviewed and interpreted patient's admitting labs including CBC, CMP,lipase, procal, trop Diagnostic Findings Chest X-Ray 08/07/25 09:52 XR chest 1V portable HISTORY: 50 years-old Male Sepsis COMPARISON: 525 TECHNIQUE: AP view of the chest FINDINGS: Cardiac silhouette is upper limits of normal in size. Right IJ Koycxs-p-[id number] catheter is unchanged. Pulmonary vascular congestion with interstitial coarsening. No pneumothorax or large pleural effusion. Mild hazy left basilar opacities are new from prior. Subacute to chronic posterior left rib fractures appear new from prior. Degenerative changes of the shoulders and spine. IMPRESSION: 1. Cardiomegaly with pulmonary vascular congestion. 2. Mild hazy left basilar opacities may represent atelectasis versus pneumonitis. ACT 112: Negative or not required by law. The above report was generated using voice recognition software. It may contain grammatical, syntax or spelling errors. Electronically signed by: Dante Cavazos M.D. 08/07/2025 11:14 AM Abdomen/Pelvis CT 08/07/25 10:[address] WITH IV CONTRAST CT DOSE: 1552.28 mGy.cm HISTORY: Acute right lower quadrant abdominal pain RLQ abd pain TECHNIQUE: Multiaxial CT images of the abdomen and pelvis were performed following the IV administration of 93 cc of Optiray, A dose lowering technique was utilized adhering to the principles of ALARA. COMPARISON STUDY: Chest CT 05/13/2019 FINDINGS: Bibasilar groundglass opacities with intralobular septal thickening has progressed from 2019. Bronchial wall thickening with mucous plugging. There is no pneumatosis or pneumoperitoneum. The spleen is enlarged measuring up to 19 cm, mildly increased in size from prior. Unremarkable adrenal glands and gallbladder. Hepatic steatosis. Patency of the hepatic and portal veins. There is mild inflammatory stranding involving the uncinate process pancreas and pancreaticoduodenal groove. Nonspecific bilateral perinephric stranding. 5 mm nonobstructing calculus of the mid pole right kidney. No ureteral calculi or hydronephrosis. Partially decompressed urinary bladder. Atherosclerosis of the aorta with high-grade stenosis of the infrarenal segment. Additional prominent calcifications are noted in the IVC, left renal and bilateral iliac veins suggestive of chronic thrombi. Pathologically enlarged lower iliac chain lymph nodes could a 2.5 x 1.5 cm lymph node on the left, image 339 and a 3.0 x 1.2 cm lymph node on the right, image 334. A 2.7 x 2.2 cm right inguinal chain lymph node is seen on image 405. No bowel obstruction or bowel wall thickening. Mild colonic fecal retention. Normal appendix. No acute fracture. IMPRESSION: 1. Mild inflammatory stranding adjacent to the uncinate process pancreas and pancreaticoduodenal groove suspicious for mild acute pancreatitis versus duodenitis. Correlate with serum lipase. 2. Normal appendix. 3. Splenomegaly redemonstrated, slightly increased in size compared to the 2019 comparison exam. 4. Nonspecific pathologically enlarged iliac and inguinal chain lymph nodes could be correlated with tissue sampling to exclude a lymphoproliferative process. 5. Atherosclerosis with high-grade infrarenal abdominal aortic stenosis. ACT 112: Negative or not required by law. The above report was generated using voice recognition software. It may contain grammatical, syntax or spelling errors. Electronically signed by: Dante Cavazos M.D. 08/07/2025 12:35 PM Medications Administered Medication List Discontinued Medications Albuterol (Albut/Ipratrop 3mg/0.5mg Neb 3 Ml Vial) 3 ml NEB NOW STA; Protocol Stop: 08/07/25 13:29 Last Admin: 08/07/25 14:07 Dose: 3 ml Documented By: SEEMA Fentanyl Citrate (Fentanyl Citrate Pf 100 Mcg/2 Ml Vial) 50 mcg IV NOW STA Stop: 08/07/25 10:34 Last Admin: 08/07/25 11:15 Dose: 50 mcg Documented By: SEEMA Furosemide (Furosemide 40 Mg/4 Ml Vial) 40 mg IV ONE ONE Stop: 08/07/25 13:50 Last Admin: 08/07/25 14:07 Dose: 40 mg Documented By: SEEMA Sodium Chloride (Nss) 1,000 mls @ 999 mls/hr IV .Q1H1M ONE Stop: 08/07/25 11:01 Last Infusion: 08/07/25 12:23 Dose: Infused Documented By: Admin: 08/07/25 11:15 Dose: 999 mls/hr Documented By: SEEMA Acetaminophen (Ofirmev) 1,000 mg in 100 mls @ 400 mls/hr IV NOW STA Stop: 08/07/25 10:47 Last Infusion: 08/07/25 12:23 Dose: Infused Documented By: Admin: 08/07/25 11:15 Dose: 400 mls/hr Documented By: SEEMA Famotidine (Pepcid 20mg Iv Push) 20 mg in 5 mls @ 2.5 mls/min IV NOW STA Stop: 08/07/25 12:41 Last Admin: 08/07/25 14:07 Dose: 2.5 mls/min Documented By: SEEMA Cefepime HCl (Maxipime 2000mg) 2,000 mg in 20 mls @ 5 mls/min IV NOW STA; Protocol Stop: 08/07/25 13:58 Last Admin: 08/07/25 14:07 Dose: 5 mls/min Documented By: SEEMA Ioversol (Optiray 320 100ml) 93 ml IV ONCE ONE Stop: 08/07/25 12:09 Last Admin: 08/07/25 12:08 Dose: 93 ml Documented By: MATTHEW Morphine Sulfate (Morphine Sulfate 4 Mg/Ml 1 Ml Carp\\Vial) 4 mg IV NOW STA Stop: 08/07/25 13:35 Last Admin: 08/07/25 14:07 Dose: 4 mg Documented By: SEEMA Ondansetron HCl (Ondansetron Inj 2 Mg/Ml 2 Ml Vial) 4 mg IV NOW STA Stop: 08/07/25 10:02 Last Admin: 08/07/25 11:16 Dose: 4 mg Documented By: SEEMA ECG Additional Comments: I have independently reviewed and interpreted patient's admitting EKG which revealed: ST 104 bpm COVID-19 Results Results COVID-19 Adm Lab Results: RBC 4.78 M/uL (4.70-6.10) 08/07/25 WBC 5.63 K/ul (4.8-10.8) 08/07/25 Hgb 12.9 g/dL (14.0-18.0) L 08/07/25 Hct 39.5 % (42.0-52.0) L 08/07/25 Plt Count 201 K/uL (130-400) 08/07/25 Neutrophils (%) (Auto) 79.6 % 08/07/25 Lymphocytes (%) (Auto) 11.4 % 08/07/25 Monocytes # (Auto) 0.39 K/uL (0.11-0.59) 08/07/25 Eosinophils # (Auto) 0.07 K/uL (0.00-0.50) 08/07/25 Immature Granulocyte % (Auto) 0.4 % 08/07/25 Neutrophils # (Auto) 4.48 K/uL (1.40-6.50) 08/07/25 Lymphocytes # (Auto) 0.64 K/uL (1.20-3.40) L 08/07/25 Monocytes # (Auto) 0.39 K/uL (0.11-0.59) 08/07/25 Eosinophils # (Auto) 0.07 K/uL (0.00-0.50) 08/07/25 Basophils # (Auto) 0.03 K/uL (0.00-0.20) 08/07/25 Immature Granulocyte # (Auto) 0.02 K/uL (0.01-0.20) 5 Na 136 mmol/L (136-145) 08/07/25 K 4.4 mmol/L (3.5-5.1) 08/07/25 Cl 105 mmol/L (98-107) 08/07/25 CO2 21 mmol/L (21-32) 08/07/25 Anion Gap 10 (3-11) 08/07/25 BUN 15 mg/dl (6-23) 08/07/25 Creatinine 0.70 mg/dl (0.6-1.4) 08/07/25 BUN/Creatinine Ratio 21.4 (10-20) H 08/07/25 Glucose Level 189 mg/dl (70-99(Fasting)) H 08/07/25 Ca 9.4 mg/dl (8.6-10.3) 08/07/25 Total Bilirubin 0.7 mg/dl (0.2-1.0) 08/07/25 Direct Bilirubin 0.1 mg/dl (0-0.2) 08/07/25 AST/SGOT 15 U/L (13-39) 08/07/25 ALT/SGPT 21 U/L (7-52) 08/07/25 Alkaline Phosphatase 53 U/L (34-104) 08/07/25 Total Protein 8.2 gm/dl (6.0-8.3) 08/07/25 Albumin 4.0 gm/dl (3.4-5.0) 08/07/25 Procalcitonin 1.40 ng/ml (0-0.5) H 08/07/25 Adenovirus (PCR) Not Detected (NotDetected) 08/07/25 B. parapertussis DNA (PCR) Not Detected (NotDetected) 07/28 09/21 B. pertussis DNA (PCR) Not Detected (NotDetected) 08/07/25 C. pneumoniae DNA (PCR) Not Detected (NotDetected) 5 Coronavirus Type OC43 (PCR) Not Detected (NotDetected) 07/22 Coronavirus Type HKU1 (PCR) Not Detected (NotDetected) 07/22 Coronavirus Type 229E (PCR) Not Detected (NotDetected) 07/22 COVID-19 PCR Not Detected (NotDetected) 08/07/25 Coronavirus Type NL63 (PCR) Not Detected (NotDetected) 07/22 Human Metapneumovirus (PCR) Not Detected (NotDetected) 07/22 Influenza Virus Type A (PCR) Not Detected (NotDetected) Influenza Virus Type B (PCR) Not Detected (NotDetected) M. pneumoniae (PCR) Not Detected (NotDetected) 08/07/25 Parainfluenza Type 1 (PCR) Not Detected (NotDetected) 07/28 09/21 Parainfluenza Type 2 (PCR) Not Detected (NotDetected) 07/28 09/21 Parainfluenza Type 3 (PCR) Not Detected (NotDetected) 07/28 09/21 Parainfluenza Type 4 (PCR) Not Detected (NotDetected) 07/28 09/21 RSV (PCR) Not Detected (NotDetected) 08/07/25 Enterovirus/Rhinovirus (PCR) Not Detected (NotDetected) Chest X-Ray 08/07/25 Code Status & VTE Plan Code Status FULL CODE VTE Prophylaxis Plan VTE Prophylaxis will be ordered: Yes Supervising Physician Co-Signing Physician Notes Attending Addendum: Case reviewed with the advanced practitioner. I have personally performed a history and physical examination on the patient. I have reviewed the advanced practitioner's documentation on the date of service referenced in note, and I agree with, and take responsibility for the plan of care. please refer to her notes for full details patient seen and examined, records reviewed by myself as well on exam, patient Seen sitting up in bed, not in distress reports pain on the right ankle wound reports some mild shortness of breath, with minimal dry cough also has chills at home no other symptoms VS noted and reviewed oriented x3 , not in distress, speaks in sentences with no effort nor accessory muscle use normal rate, regular rhythm, no murmurs (+) mild scattered wheeze and rales bilaterally non distended, soft, nontender no bipedal edema, erythema, warmth no neuro deficits all labs, imaging noted and reviewed ASSESSMENT AND PLAN> Nonhealing Bilateral Lower Extremity Wounds discharged 2 days ago, readmitted as patient reports he did not tolerate oral Levaquin and Minocycline secondary to severe GI side effects including nausea, vomiting, abdominal pain initiate IV cefepime re-consult Infectious disease service and podiatry service Possible bilateral pneumonia Treated for possible COPD exacerbation during last admission- covered with IV cefepime and transition to p.o. Levaquin- taken at home x 2 days; Also given mupirocin for positive nasal MRSA swab patient currently reporting intermittent dry cough, still with bilateral wheeze and crackles CT chest currently showing bilateral ground glass opacities repeat BioFire pending sputum culture ordered nebs IV cefepime as per above, doxycycline p.o. discussed with ID service regarding possible necessity for MRSA pneumonia coverage other diagnoses and plan of care as per advanced practitioner's notes I spent a total of 35 minutes coordinating, documenting, and providing care for this patient, excluding time spent in the performance of separately billed services or time spent by another provider/QHP. Juan Francisco Verduzco MD (8) Cirrhosis Ascites presence: unspecified Hepatic cirrhosis type: alcoholic cirrhosis Qualified Code(s): K70.30 - Alcoholic cirrhosis of liver without ascites (9) Type 2 diabetes mellitus Diabetes mellitus complication status: with other specified complication Diabetes mellitus assisted insulin use: unspecified assisted insulin use status Qualified Code(s): E11.69 - Type 2 diabetes mellitus with other specified complication (10) Chronic deep vein thrombosis (DVT) Affected thrombotic vein of extremity: unspecified vein of extremity DVT location: lower extremity Laterality: right Qualified Code(s): I82.501 - Chronic embolism and thrombosis of unspecified deep veins of right lower extremity
[2025-08-07 14:57] LABS: Appearance Urine Clear (Clear); Bacteria Urine Automated None Seen (None Seen); Cast Urine Automated 0-2 /lpf (0-2); Epithelial Cell Urine Auto 0-2 /hpf (0-2); Glucose Urine UA 1+ (Negative); RBC Urine Automated 0-2 /hpf (0-2); WBC Urine Automated 0-5 /hpf (0-5)
[2025-08-07 14:58] LABS: Lipase 14.0 U/L (11-82)
[2025-08-07 15:08] LABS: Chlamydia pneumoniae PCR Not Detected (NotDetected); Coronavirus 229E PCR Not Detected (NotDetected); Coronavirus CoV-2 (COVID19)PCR Not Detected (NotDetected); Coronavirus HKU1 PCR Not Detected (NotDetected); Coronavirus NL63 PCR Not Detected (NotDetected); Coronavirus OC43PCR Not Detected (NotDetected); Human Metapneumovirus PCR Not Detected (NotDetected); Parainfluenza Virus 1 PCR Not Detected (NotDetected); Parainfluenza Virus 2 PCR Not Detected (NotDetected); Parainfluenza Virus 3 PCR Not Detected (NotDetected); Parainfluenza Virus 4 PCR Not Detected (NotDetected); Respiratory Syncytial VirusPCR Not Detected (NotDetected); Rhinovirus/Enterovirus PCR Not Detected (NotDetected)
[2025-08-07] MEDS ORDERED: CARBOHYDRATES FOR HYPOGLYCEMIA PO PRN (16:27)
[2025-08-07] MEDS ORDERED: GLUCAGON FOR INJ 1 MG VIAL SQ PRN (16:27)
[2025-08-07] MEDS ORDERED: ACETAMINOPHEN 325 MG TAB PO PRN (16:27)
[2025-08-07] MEDS ORDERED: GLUCOSE 10 TAB/TUBE PO PRN (16:27)
[2025-08-07] MEDS ORDERED: GLUCOSE 40% GEL 15 GM TUBE PO PRN (16:27)
[2025-08-07] MEDS ORDERED: DEXTROSE 50% 50 ML SYRINGE IV PRN (16:27)
[2025-08-07] MEDS ORDERED: diphenhydrAMINE Capsule 25 MG CAP PO PRN (16:27)
[2025-08-07] MEDS: INSULIN ASPART PER UNIT CHARGE SC SCH (17:25)
[2025-08-07] MEDS: PREGABALIN 150 MG CAP PO SCH (17:29)
[2025-08-07] MEDS: NICOTINE 14 MG/24 HR PATCH TD SCH (17:30)
[2025-08-07] MEDS: FUROSEMIDE 80 MG TAB PO SCH (17:31)
[2025-08-07] MEDS: FORMOTEROL 20 MCG/2 ML VIAL NEB SCH (19:31)
[2025-08-07] MEDS: BUDESONIDE 0.5 MG/2 ML VIAL (PULMICORT) NEB SCH (19:31)
[2025-08-07] MEDS: ALBUT/IPRATROP 3MG/0.5MG NEB 3 ML VIAL NEB SCH (19:32)
[2025-08-07] MEDS: CEFEPIME 2000MG 2,000 MG/20 ML SYR IV SCH (21:16)
[2025-08-07] MEDS: diphenhydrAMINE 50 MG/ML VIAL IV PRN (21:22)
[2025-08-07] MEDS: MELATONIN 3 MG TAB PO PRN (21:29)
[2025-08-07] MEDS: DOXYCYCLINE HYCLATE 100 MG CAP PO SCH (21:29)
[2025-08-07] MEDS: busPIRone 15 MG TAB PO SCH (21:30)
[2025-08-07] MEDS: DOCUSATE SODIUM 100 MG CAP PO SCH (21:30)
[2025-08-07] MEDS: APIXABAN 5 MG TABLET PO SCH (21:30)
[2025-08-07] MEDS: AMMONIUM LACTATE 12% LOTION 225 GM BTL EXT SCH (21:31)
[2025-08-07] MEDS: MUPIROCIN 2% OINT 22 GM TUBE SCH (21:31)
[2025-08-07] MEDS: LANTUS PER UNIT CHARGE SQ SCH (21:32)
[2025-08-08] MEDS: MoRPHine SULFATE 4 MG/ML 1 ML CARP\\VIAL IV PRN (02:27)
[2025-08-08] MEDS: REMOVE NICODERM PATCH SCH (07:39)
[2025-08-08] MEDS: ATORVASTATIN 40 MG TAB PO SCH (07:40)
[2025-08-08] MEDS: SPIRONOLACTONE 100 MG TAB PO SCH (07:40)
[2025-08-08] MEDS: COLLAGENASE OINT 30 GM TUBE EXT SCH (07:40)
[2025-08-08] MEDS: ADVANCED PROBIOTIC 625 MG CAPSULE PO SCH (07:41)
[2025-08-08] MEDS: FOLIC ACID 1 MG TAB PO SCH (07:41)
[2025-08-08] MEDS: LOSARTAN POTASSIUM 25 MG TAB PO SCH (07:42)
[2025-08-08] MEDS: MONTELUKAST SODIUM 10 MG TABLET PO SCH (07:47)
--- NOTE | 2025-08-08 08:06 | Vascular Surgery Consultation ---
Date of Consultation August 08, 2025 Assessment & Plan (1) Chronic cutaneous venous stasis ulcer: He has had a long standing history of recurrent bilateral lower extremity DVT, now with chronic venous insufficiency leading to recurrent venous stasis ulcerations, now with open wounds to right lateral and medial malleoli and left medial malleolus. Agree with ID assessment, antibiotics for cellulitis, as well as local wound care. Given that his wounds are in the typical venous distribution, he would benefit also from compression such as from an unna boot or with compression stockings (which he has worn in the past and did benefit from). A wound care referral would be beneficial for him, as the [facility] can measure and fit him for proper fitting thigh high compression stockings, which would not only aid in healing his ulcers, but would also help prevent further ulcerations. He would also benefit from venous reflux testing to evaluate for any superficial venous reflux that could be treated to help with wound healing. This can be done on an outpatient basis. He may have component of arterial disease contributing to slow healing (see below) as well. (2) Venous insufficiency (chronic) (peripheral): Secondary to recurrent DVT/chronic DVT Mainstay of treatment would be compression stockings to help alleviate his venous hypertension in his legs, along with leg elevation. (3) Peripheral arterial disease: Although he does have palpable peripheral pulses on exam, which in and of itself should be enough to heal any skin/soft tissue injury, his waveforms are monophasic on the right, starting at the common femoral artery, and when looking at his CT abd/pelvis, he does have aortic disease in the infrarenal aorta. We will order an JAYDE/TBI to assess potential for wound healing from an arterial standpoint. History of Present Illness Reason for Consultation: bilateral recurrent venous stasis wounds Attending Physician: Rip Ohara, DO History of Present Illness Mr. Hendrix is a 50 year old gentleman who was admitted yesterday with recurrent right ankle wound, who we are being asked to see due to recurrent venous stasis ulcerations. History was obtained from patient as well as the patient's medical record. He has a past medical history significant for recurrent bilateral lower extremity DVT, PE, with multiple venous duplex ultrasounds showing chronic venous clot/scarring extending from femoral veins down to popliteal veins since 2018, in setting of hypercoagulable state with prothrombin Factor II mutation, MTHFR heterozygote and borderline hyperhomocystemia, as well as a history of chronic venous stasis changes and ulcerations, DM II with neuropathy, COPD, alcoholic cirrhosis, HLD. He presented to [facility] yesterday with concerns for worsening right ankle wound that had previously healed, but reopened about one week prior. He has had frequent admissions for his chronic bilateral LE wounds, last being 08/01-08/05, with cltures at that time growing klebsiella, serratia, stenotrophomonas, and was treated with IV antibiotics at that time (dapto/cefepime), and was discharged on levaquin and minocyclin. In the days prior to this admission he has had complaints of nausea, vomiting, RLQ abdominal pain and decreased appetite, along with foul smelling drainage from wound. In the ED he was noted to be tachycardic, with elevated procalcitonin. Lactate normal, no leukocytosis. He was placed back on antibiotics and admitted for further management, with ID and podiatry consults. He has followed with podiatry in the past for his chronic wounds, and was seen in consultation yesterday, with recommendations of continuing santyl to his wounds, along with optifoam to dress them. On his last admission an arterial duplex was ordered of his lower extremities, and demonstrated monophasic waveforms on the right throughout the entire leg, although no elevated velocities to suggest focal area of stenosis, triphasic waveforms on the left down to popliteal artery, with flow seen below popliteal down through to DP, although PT and peroneal arteries were difficulty to visualize. He did have CT abd/pelvis on admission, and does have significant infrarenal aortic stenosis. He relates to me that he has a long standing history of recurrent DVTs in both legs, along with history of PE. He has never had an IVC filter. He has never had any venous work such as ablations, lasers, vein stripping or phlebectomy. He has been treated both proform in the past to his lower extremities, however these would fall down frequently, as well as thigh high compression stockings (last worn about 2 years ago). He does note that when he was wearing compression stockings he noted that he had less recurrence of cellulitis and wounds on his leg. Unfortunately he said his stockings "wore out" and he does not currently have any. He is not currently following with any wound care center. He does have pain in his legs at the wounds themselves, but denies pain in his feet or pain with walking. He denies history of heart attack. He is on statin and does smoke but is in the process of quitting. Allergies Allergy/AdvReac Type Severity Reaction Status Date / Time peas Allergy Severe Anaphylaxis Verified 06/19/23 10:28 tuna oil Allergy Severe Anaphylaxis Verified 06/19/23 10:28 to "tuna" sulfamethoxazole Allergy Intermediate hives Verified 06/19/23 10:28 trimethoprim Allergy Intermediate hives Verified 06/19/23 10:28 Home Medications Medication Instructions Recorded Confirmed Type albuterol sulfate 90 mcg/actuation 1 puff inhalation Q6H PRN 05/09/18 08/07/25 History aerosol inhaler (Ventolin HFA) Shortness Of Breath folic acid 1 mg tablet 1 mg PO QAM 05/09/18 08/07/25 History omeprazole 20 mg capsule,delayed 20 mg PO BID 05/09/18 08/07/25 History release diphenhydramine HCl 25 mg capsule 25 mg PO Q6H PRN Itching 10/23/19 08/07/25 History (Benadryl) furosemide 80 mg tablet 80 mg PO BID17 10/23/19 08/07/25 History multivitamin 1 tab PO QAM 06/05/20 08/07/25 History buspirone 15 mg tablet 15 mg PO BID 10/02/22 08/07/25 History fluoxetine 20 mg capsule 20 mg PO HS 10/02/22 08/07/25 History fluticasone 500 mcg-salmeterol 50 1 inh inhalation BID 10/02/22 08/07/25 History mcg/dose blistr powdr for inhalation montelukast 10 mg tablet 10 mg PO DAILY 10/02/22 08/07/25 History ammonium lactate 5 % lotion 1 applic EXT BID #226 grams 10/08/22 08/07/25 Rx (Lac-Hydrin Five) hydroxyzine HCl 10 mg tablet 10 mg PO Q8H PRN Itching 10/29/22 08/07/25 History tiotropium bromide 2.5 2 inh inhalation DAILY 10/29/22 08/07/25 History mcg/actuation mist for inhalation (Spiriva Respimat) pregabalin 150 mg capsule 150 mg PO TID 06/04/23 08/07/25 History blood-glucose meter (Accu-Chek #1 ea 06/14/23 08/07/25 Rx Guide Glucose Meter) apixaban 5 mg tablet (Eliquis) 5 mg PO BID 08/01/25 08/07/25 History atorvastatin 40 mg tablet 40 mg PO DAILY 08/01/25 08/07/25 History losartan 25 mg tablet 25 mg PO DAILY 08/01/25 08/07/25 History oxycodone 10 mg tablet 10 mg PO QID PRN Severe Pain 08/01/25 08/07/25 History (Scale Score 7-10) semaglutide 1 mg/dose (4 mg/3 mL) 1 mg subcut WK 08/01/25 08/07/25 History subcutaneous pen injector (Ozempic) spironolactone 100 mg tablet 100 mg PO DAILY 08/01/25 08/07/25 History levofloxacin 750 mg tablet 750 mg PO DAILY@1100 14 days #14 08/05/25 08/07/25 Rx tabs minocycline 100 mg capsule 200 mg (2 x 100 mg) PO BID 14 days 08/05/25 08/07/25 Rx #56 caps Patient History Medical History Diabetes mellitus, type 2 Pulmonary embolism 13 YEARS AGO ? DETAILS Blood clotting disorder ? NAME Hyperlipidemia Asthma USED RESCUE INHALER TODAY Anxiety and depression Chronic narcotic use HTN (hypertension) GERD (gastroesophageal reflux disease) Chronic deep vein thrombosis (DVT) 2017 (HOSPITALIZED AT [facility]) Tobacco abuse Cellulitis BILAT LEGS (WRAPS LEGS/DRY CLOTH) CURRENTLY HAS SOME OPEN WOUNDS>GOES TO WOUND CLINIC/[facility] Surgical History History of anesthesia reaction WITH A-PORT INSERTION, WOKE UP IN MIDDLE OF PROCEDURE History of vascular access device APORT IN RT CHEST (IN PLACE) [place] teeth removed Family History Father ETOH abuse Cirrhosis Mother Hypercoagulable state Prothrombin Factor II Mutation, 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, boderline hyperhomocystemia Social History Smoking Status: Current some day smoker Tobacco Type: Cigarettes Cigarettes Per Day: 1/2 pack; Second Hand Exposure: No; Do You Dip or Chew Tobacco: No; Hx Alcohol Use: Yes Alcohol type: beer Alcohol Intake Frequency Comment: Pt reports quit drinking end of 07/2018 Hx Substance Use: No Preferred Language: Norwegian Communication Ability: Effective Visual Impairment: No Limitations Hearing Ability: Normal Black Top Roller Required: No Beliefs That Will Affect Care: None marital status: Current Living Situation: Family Current Living Situation Comment: With Mother How many Children do You have: 0 Other Information That Helps Us Care for You: No Feels Safe at Home: Yes Safety Concerns: Feels Safe At This Time Assistive Devices: None Review of Systems Constitutional: see HPI, also complains of cold sweats, no fever Respiratory: denies shortness of breath, coughing, wheezing Cardiovascular: Additional Comments: positive for LE edema, negative for chest pain, palpitations Gastrointestinal: see HPI, denies diarrhea, constipation Integumentary: see HPI Hematologic / Lymphatic: + history of blood clots, hypercoagulabl e state Physical Exam Constitutional: WDWN, in no distress, lying in bed, talkative Neck: supple, no lymphadenopathy Respiratory: normal respiratory effort Cardiovascular: RRR +2 radial pulses DP pulses palpable Femoral pulses easily palpable Skin: bilateral lower extremities with extensive stasis changes bilaterally from mid tibial area to ankles, along with extensive scarring. right medial and lateral malleoli with small ulcerations with fibrotic base, slight drainage noted on Optifoam, but no active drainage. Left lateral malleolus with small ulceration with fibrotic base, with small amount of drainage on Optifoam. + erythema to right ankle. Lymphatic: Tender lymph nodes bilaterally in groins. Results & Data Vital Signs (Past 12 Hours) Vital Signs Temp Pulse Resp BP Pulse Ox O2 Del Method 08/08/25 07:07 84 18 96 Room Air 08/07/25 22:07 36.8 C 80 16 132/76 95 Room Air Laboratory Results 08/07/25 10:28 Aerobic Blood Culture - Preliminary Blood No growth in Aerobic bottle after 24 hours. Anaerobic Blood Culture - Pending 08/07/25 10:14 Aerobic Blood Culture - Preliminary Blood No growth in Aerobic bottle after 24 hours. Anaerobic Blood Culture - Preliminary No growth in Anaerobic bottle after 24 hours. 08/08/25 08/08/25 08/08/25 11:28 09:45 07:28 WBC 4.16 L RBC 4.52 L Hgb 12.1 L Hct 37.0 L MCV 81.9 MCH 26.8 MCHC 32.7 RDW Std Deviation 48.1 H RDW Coeff of Kip 16.1 H Plt Count 201 MPV 10.6 Immature Gran % (Auto) 0.5 Neut % (Auto) 65.1 Lymph % (Auto) 21.2 [place] % (Auto) 7.7 Eos % (Auto) 4.3 Baso % (Auto) 1.2 Neut # (Auto) 2.71 Lymph # (Auto) 0.88 L [place] # (Auto) 0.32 Eos # (Auto) 0.18 Baso # (Auto) 0.05 Immature Gran # (Auto) 0.02 Sodium 133 L Potassium 3.8 Chloride 99 Carbon Dioxide 24 Anion Gap 10 BUN 18 Creatinine 0.87 Est Cr Clr Drug Dosing 117.1 eGFR 104.47 BUN/Creatinine Ratio 20.7 H Glucose 207 H POC Glucose 187 H 201 H Calcium 9.4 Magnesium 1.9 Total Bilirubin 0.5 AST 19 ALT 23 Alkaline Phosphatase 53 Troponin I High Sens Total Protein 8.1 Albumin 3.6 Globulin 4.5 H Albumin/Globulin Ratio 0.8 L Lipase Urine Color Urine Appearance Urine pH Ur Specific [place] Urine Protein Urine Glucose (UA) Urine Ketones Urine Blood Urine Nitrite Urine Bilirubin Urine Urobilinogen Ur Leukocyte Esterase Urine WBC (Auto) Urine RBC (Auto) U Hyaline Cast (Auto) U Epithel Cells (Auto) Urine Bacteria (Auto) Urine Comment Adenovirus (PCR) B. pertussis DNA (PCR) B.parapertussis DNA PCR C. pneumoniae DNA (PCR) Coronavirus OC43 (PCR) Coronavirus HKU1 (PCR) Coronavirus 229E (PCR) SARS-CoV-2 (PCR) Coronavirus NL63 (PCR) Human Metapneumovir PCR Influenza Type A (PCR) Influenza Type B (PCR) M. pneumoniae (PCR) Parainfluenza 1 (PCR) Parainfluenza 2 (PCR) Parainfluenza 3 (PCR) Parainfluenza 4 (PCR) RSV (PCR) Entero/Rhino (PCR) 08/07/25 08/07/25 08/07/25 19:42 16:59 14:43 WBC RBC Hgb Hct MCV MCH MCHC RDW Std Deviation RDW Coeff of Kip Plt Count MPV Immature Gran % (Auto) Neut % (Auto) Lymph % (Auto) [place] % (Auto) Eos % (Auto) Baso % (Auto) Neut # (Auto) Lymph # (Auto) [place] # (Auto) Eos # (Auto) Baso # (Auto) Immature Gran # (Auto) Sodium Potassium Chloride Carbon Dioxide Anion Gap BUN Creatinine Est Cr Clr Drug Dosing eGFR BUN/Creatinine Ratio Glucose POC Glucose 188 H 198 H Calcium Magnesium Total Bilirubin AST ALT Alkaline Phosphatase Troponin I High Sens Total Protein Albumin Globulin Albumin/Globulin Ratio Lipase Urine Color Yellow Urine Appearance Clear Urine pH 7.5 Ur Specific [place] 1.033 H Urine Protein 1+ H Urine Glucose (UA) 1+ H Urine Ketones Negative Urine Blood Negative Urine Nitrite Negative Urine Bilirubin Negative Urine Urobilinogen Negative Ur Leukocyte Esterase Negative Urine WBC (Auto) 0-5 Urine RBC (Auto) 0-2 U Hyaline Cast (Auto) 0-2 U Epithel Cells (Auto) 0-2 Urine Bacteria (Auto) None Seen Urine Comment Adenovirus (PCR) B. pertussis DNA (PCR) B.parapertussis DNA PCR C. pneumoniae DNA (PCR) Coronavirus OC43 (PCR) Coronavirus HKU1 (PCR) Coronavirus 229E (PCR) SARS-CoV-2 (PCR) Coronavirus NL63 (PCR) Human Metapneumovir PCR Influenza Type A (PCR) Influenza Type B (PCR) M. pneumoniae (PCR) Parainfluenza 1 (PCR) Parainfluenza 2 (PCR) Parainfluenza 3 (PCR) Parainfluenza 4 (PCR) RSV (PCR) Entero/Rhino (PCR) 08/07/25 08/07/25 14:04 10:14 WBC RBC Hgb Hct MCV MCH MCHC RDW Std Deviation RDW Coeff of Kip Plt Count MPV Immature Gran % (Auto) Neut % (Auto) Lymph % (Auto) [place] % (Auto) Eos % (Auto) Baso % (Auto) Neut # (Auto) Lymph # (Auto) [place] # (Auto) Eos # (Auto) Baso # (Auto) Immature Gran # (Auto) Sodium Potassium Chloride Carbon Dioxide Anion Gap BUN Creatinine Est Cr Clr Drug Dosing eGFR BUN/Creatinine Ratio Glucose POC Glucose Calcium Magnesium Total Bilirubin AST ALT Alkaline Phosphatase Troponin I High Sens 2.7 Total Protein Albumin Globulin Albumin/Globulin Ratio Lipase 14 Urine Color Urine Appearance Urine pH Ur Specific [place] Urine Protein Urine Glucose (UA) Urine Ketones Urine Blood Urine Nitrite Urine Bilirubin Urine Urobilinogen Ur Leukocyte Esterase Urine WBC (Auto) Urine RBC (Auto) U Hyaline Cast (Auto) U Epithel Cells (Auto) Urine Bacteria (Auto) Urine Comment Adenovirus (PCR) Not Detected B. pertussis DNA (PCR) Not Detected B.parapertussis DNA PCR Not Detected C. pneumoniae DNA (PCR) Not Detected Coronavirus OC43 (PCR) Not Detected Coronavirus HKU1 (PCR) Not Detected Coronavirus 229E (PCR) Not Detected SARS-CoV-2 (PCR) Not Detected Coronavirus NL63 (PCR) Not Detected Human Metapneumovir PCR Not Detected Influenza Type A (PCR) Not Detected Influenza Type B (PCR) Not Detected M. pneumoniae (PCR) Not Detected Parainfluenza 1 (PCR) Not Detected Parainfluenza 2 (PCR) Not Detected Parainfluenza 3 (PCR) Not Detected Parainfluenza 4 (PCR) Not Detected RSV (PCR) Not Detected Entero/Rhino (PCR) Not Detected Diagnostic Findings Abdomen/Pelvis CT 08/07/25 10:[address] WITH IV CONTRAST CT DOSE: 1552.28 mGy.cm HISTORY: Acute right lower quadrant abdominal pain RLQ abd pain TECHNIQUE: Multiaxial CT images of the abdomen and pelvis were performed following the IV administration of 93 cc of Optiray, A dose lowering technique was utilized adhering to the principles of ALARA. COMPARISON STUDY: Chest CT 05/13/2019 FINDINGS: Bibasilar groundglass opacities with intralobular septal thickening has progressed from 2019. Bronchial wall thickening with mucous plugging. There is no pneumatosis or pneumoperitoneum. The spleen is enlarged measuring up to 19 cm, mildly increased in size from prior. Unremarkable adrenal glands and gallbladder. Hepatic steatosis. Patency of the hepatic and portal veins. There is mild inflammatory stranding involving the uncinate process pancreas and pancreaticoduodenal groove. Nonspecific bilateral perinephric stranding. 5 mm nonobstructing calculus of the mid pole right kidney. No ureteral calculi or hydronephrosis. Partially decompressed urinary bladder. Atherosclerosis of the aorta with high-grade stenosis of the infrarenal segment. Additional prominent calcifications are noted in the IVC, left renal and bilateral iliac veins suggestive of chronic thrombi. Pathologically enlarged lower iliac chain lymph nodes could a 2.5 x 1.5 cm lymph node on the left, image 339 and a 3.0 x 1.2 cm lymph node on the right, image 334. A 2.7 x 2.2 cm right inguinal chain lymph node is seen on image 405. No bowel obstruction or bowel wall thickening. Mild colonic fecal retention. Normal appendix. No acute fracture. IMPRESSION: 1. Mild inflammatory stranding adjacent to the uncinate process pancreas and pancreaticoduodenal groove suspicious for mild acute pancreatitis versus duodenitis. Correlate with serum lipase. 2. Normal appendix. 3. Splenomegaly redemonstrated, slightly increased in size compared to the 2019 comparison exam. 4. Nonspecific pathologically enlarged iliac and inguinal chain lymph nodes could be correlated with tissue sampling to exclude a lymphoproliferative process. 5. Atherosclerosis with high-grade infrarenal abdominal aortic stenosis. ACT 112: Negative or not required by law. The above report was generated using voice recognition software. It may contain grammatical, syntax or spelling errors. Electronically signed by: Dante Cavazos M.D. 08/07/2025 12:35 PM BILATERAL LOWER EXTREMITY ARTERIAL DUPLEX 08/02/25: FINDINGS: Monophasic waveforms are seen throughout the right lower extremity, otherwise which demonstrates sharp systolic upstroke throughout the majority of the arteries above the knee, and with mild parvus tardus upstroke at the trifurcation arteries. No abnormally elevated velocities of the arteries of the right lower extremity. The highest velocity is at the right common femoral artery with a velocity of 99 cm/sec. The left common femoral, profundofemoral, and superficial femoral and popliteal arteries demonstrate triphasic waveforms. The distal popliteal artery appears biphasic. There are monophasic waveforms of the arteries on the left below the knee, including the posterior tibial artery and distal peroneal and dorsalis pedis arteries. The anterior tibial artery is not well seen. The mid peroneal artery is not well-seen. Elevated velocity at the left posterior tibial artery of 140 cm/sec. Mildly elevated left common femoral artery at 114 cm/sec. Impression: 1. Right leg: Monophasic waveforms throughout, otherwise without occlusion, suggesting proximal, aortoiliac disease. No abnormally elevated velocities to suggest a high-grade focal stenosis. . 2. Left leg: Triphasic waveforms of the arteries above the knee. The waveforms below the knee otherwise appear monophasic suggesting proximal stenosis, and there is focally elevated velocity at the left posterior tibial artery suggesting a focal area of stenosis. The left anterior tibial artery is not well-seen. The dorsalis pedis artery is patent. . Medications Administered Home Medications Medication Instructions Recorded Confirmed Last Taken albuterol sulfate 90 mcg/actuation 1 puff inhalation Q6H PRN 05/09/18 08/07/25 05/12/19 08:00 aerosol inhaler (Ventolin HFA) Shortness Of Breath folic acid 1 mg tablet 1 mg PO QAM 05/09/18 08/07/25 01/11/23 omeprazole 20 mg capsule,delayed 20 mg PO BID 05/09/18 08/07/25 01/11/23 release diphenhydramine HCl 25 mg capsule 25 mg PO Q6H PRN Itching 10/23/19 08/07/25 02/02/23 (Benadryl) furosemide 80 mg tablet 80 mg PO BID17 10/23/19 08/07/25 01/11/23 multivitamin 1 tab PO QAM 06/05/20 08/07/25 01/11/23 buspirone 15 mg tablet 15 mg PO BID 10/02/22 08/07/25 02/02/23 fluoxetine 20 mg capsule 20 mg PO HS 10/02/22 08/07/25 01/11/23 fluticasone 500 mcg-salmeterol 50 1 inh inhalation BID 10/02/22 08/07/25 02/03/23 mcg/dose blistr powdr for inhalation montelukast 10 mg tablet 10 mg PO DAILY 10/02/22 08/07/25 01/11/23 ammonium lactate 5 % lotion 1 applic EXT BID #226 grams 10/08/22 08/07/25 01/11/23 (Lac-Hydrin Five) hydroxyzine HCl 10 mg tablet 10 mg PO Q8H PRN Itching 10/29/22 08/07/25 01/11/23 tiotropium bromide 2.5 2 inh inhalation DAILY 10/29/22 08/07/25 02/03/23 mcg/actuation mist for inhalation (Spiriva Respimat) pregabalin 150 mg capsule 150 mg PO TID 06/04/23 08/07/25 Unknown blood-glucose meter (Accu-Chek #1 ea 06/14/23 08/07/25 Unknown Guide Glucose Meter) apixaban 5 mg tablet (Eliquis) 5 mg PO BID 08/01/25 08/07/25 Unknown atorvastatin 40 mg tablet 40 mg PO DAILY 08/01/25 08/07/25 Unknown losartan 25 mg tablet 25 mg PO DAILY 08/01/25 08/07/25 Unknown oxycodone 10 mg tablet 10 mg PO QID PRN Severe Pain 08/01/25 08/07/25 Unknown (Scale Score 7-10) semaglutide 1 mg/dose (4 mg/3 mL) 1 mg subcut WK 08/01/25 08/07/25 Unknown subcutaneous pen injector (Ozempic) spironolactone 100 mg tablet 100 mg PO DAILY 08/01/25 08/07/25 Unknown levofloxacin 750 mg tablet 750 mg PO DAILY@1100 14 days #14 08/05/25 08/07/25 Unknown tabs minocycline 100 mg capsule 200 mg (2 x 100 mg) PO BID 14 days 08/05/25 08/07/25 Unknown #56 caps Active Medications Generic Name Dose Route Start Last Admin Trade Name Freq PRN Reason Stop Dose Admin Albuterol 3 ml 08/07/25 19:00 08/08/25 07:07 Albut/Ipratrop 3mg/0.5mg Neb 3 Ml Vial NEB 09/06/25 18:59 Not Given [id number] [facility] Protocol Apixaban 5 mg 08/07/25 21:00 08/08/25 07:40 Apixaban 5 Mg Tablet PO 09/06/25 20:59 5 mg BID OTILIA Administration Atorvastatin Calcium 40 mg 08/08/25 09:00 08/08/25 07:40 Atorvastatin 40 Mg Tab PO 09/07/25 08:59 40 mg DAILY OTILIA Administration Budesonide 0.5 mg 08/07/25 19:00 08/08/25 07:06 Budesonide 0.5 Mg/2 Ml Vial (Pulmicort) NEB 09/06/25 18:59 0.5 mg BIDR OTILIA Administration Buspirone HCl 15 mg 08/07/25 21:00 08/08/25 07:42 Buspirone 15 Mg Tab PO 09/06/25 20:59 15 mg BID OTILIA Administration Collagenase 1 appln 08/08/25 09:00 08/08/25 07:40 Collagenase Oint 30 Gm Tube EXT 09/07/25 08:59 1 appln DAILY OTILIA Administration Diphenhydramine HCl 25 mg 08/07/25 18:32 08/08/25 08:20 Diphenhydramine 50 Mg/Ml Vial IV 09/06/25 18:31 25 mg Q8H PRN Administration itching Docusate Sodium 100 mg 08/07/25 21:00 08/08/25 07:45 Docusate Sodium 100 Mg Cap PO 09/06/25 20:59 100 mg BID OTILIA Administration Doxycycline Hyclate 100 mg 08/07/25 21:00 08/08/25 07:41 Doxycycline Hyclate 100 Mg Cap PO 08/12/25 20:59 100 mg BID OTILIA Administration Fluoxetine HCl 20 mg 08/07/25 21:00 08/07/25 21:30 Fluoxetine Hcl 20 Mg Cap PO 09/06/25 20:59 20 mg HS OTILIA Administration Folic Acid 1 mg 08/08/25 09:00 08/08/25 07:41 Folic Acid 1 Mg Tab PO 09/07/25 08:59 1 mg QAM OTILIA Administration Formoterol Fumarate 20 mcg 08/07/25 19:00 08/08/25 07:06 Formoterol 20 Mcg/2 Ml Vial NEB 09/06/25 18:59 20 mcg BIDR OTILIA Administration Furosemide 80 mg 08/07/25 17:00 08/08/25 07:41 Furosemide 80 Mg Tab PO 09/06/25 16:59 80 mg BID17 OTILIA Administration Cefepime HCl 2,000 mg in 20 mls @ 5 mls/min 08/07/25 21:00 08/08/25 05:58 Maxipime 2000mg IV 08/14/25 20:59 5 mls/min Q8H OTILIA Administration Protocol Insulin Aspart 0 units 08/07/25 16:30 08/08/25 08:20 Insulin Aspart Per Unit Charge SC 09/06/25 16:29 6 units ACHS OTILIA Administration Insulin Glargine 0 - 8 units 08/07/25 21:00 08/07/25 21:32 Lantus Per Unit Charge SQ 09/06/25 20:59 8 units HS OTILIA Administration Lactic Acid 5 gm 08/07/25 21:00 08/08/25 07:39 Ammonium Lactate 12% Lotion 225 Gm Btl EXT 09/06/25 20:59 5 gm BID OTILIA Administration Lactobacillus Acidophilus 1,250 mg 08/08/25 09:00 08/08/25 07:41 Advanced Probiotic 625 Mg Capsule PO 09/07/25 08:59 1,250 mg DAILY OTILIA Administration Losartan Potassium 25 mg 08/08/25 09:00 08/08/25 07:42 Losartan Potassium 25 Mg Tab PO 09/07/25 08:59 25 mg DAILY OTILIA Administration Melatonin 6 mg 08/07/25 21:00 08/07/25 21:29 Melatonin 3 Mg Tab PO 09/06/25 20:59 6 mg HS PRN Administration Sleep Miscellaneous 1 each 08/08/25 08:59 08/08/25 07:39 Remove Nicoderm Patch N/A 09/07/25 08:58 1 each DAILY@0859 OTIILA Administration Montelukast Sodium 10 mg 08/08/25 09:00 08/08/25 07:47 Montelukast Sodium 10 Mg Tablet PO 09/07/25 08:59 10 mg DAILY OTILIA Administration Morphine Sulfate 3 mg 08/07/25 16:27 08/08/25 07:37 Morphine Sulfate 4 Mg/Ml 1 Ml Carp\\Vial IV 08/21/25 16:26 3 mg Q3H PRN Administration Severe Pain (Scale 7, 8, 9,10) Mupirocin 1 appln 08/07/25 21:00 08/08/25 07:46 Mupirocin 2% Oint 22 Gm Tube NA 09/06/25 20:59 1 appln BID OTILIA Administration Nicotine 1 patch 08/07/25 17:00 08/08/25 07:43 Nicotine 14 Mg/24 Hr Patch TD 09/06/25 16:59 1 patch QAM OTILIA Administration Oxycodone HCl 12.5 mg 08/07/25 16:43 08/08/25 10:06 Oxycodone Hcl Ir 5 Mg Tab (Immediate Release) PO 08/21/25 16:42 12.5 mg Q6H PRN Administration Moderate Pain (Scale 4, 5, 6) Pantoprazole Sodium 40 mg 08/07/25 21:00 08/08/25 07:43 Pantoprazole 40 Mg Tab PO 09/06/25 20:59 40 mg BID OTILIA Administration Protocol Pregabalin 150 mg 08/07/25 16:45 08/08/25 07:45 Pregabalin 150 Mg Cap PO 09/06/25 16:44 150 mg TID OTILIA Administration Spironolactone 100 mg 08/08/25 09:00 08/08/25 07:40 Spironolactone 100 Mg Tab PO 09/07/25 08:59 100 mg DAILY OTILIA Administration PG Care Time/CCT Total # of Minutes Spent Total Time Spent with Patient: Total time spent is greater than 50% in coordination of care (as documented) at patient's floor/unit and/or counseling patient: [place] [address] IN/OBS CONSULT LVL 3,45M Patient Type New Medical Decision Making Moderate Complexity Diagnoses Chronic cutaneous venous stasis ulcer I83.009; L97.909 Venous insufficiency (chronic) (peripheral) I87.2 Peripheral arterial disease I73.9
[2025-08-08 10:17] LABS: Hematocrit (blood only) 37.0 % (42.0-52.0); Hemoglobin 12.1 g/dL (14.0-18.0); Immature Granulocytes # (auto) 0.02 K/uL (0.01-0.20); Immature Granulocytes % (auto) 0.5 %; Mean Corpuscular Hemoglobin 26.8 pg (25.0-34.0); Mean Corpuscular Volume 81.9 fL (80.0-100.0); Platelet Count 201 K/uL (130-400); RDW Standard Deviation 48.1 fL (36.4-46.3); Red Blood Count 4.52 M/uL (4.70-6.10); White Blood Count 4.16 K/ul (4.8-10.8)
[2025-08-08 10:30] LABS: Alanine Aminotransferase 23.0 U/L (7-52); Albumin Globulin Ratio 0.8 (0.9-2); Albumin Level 3.6 gm/dl (3.4-5.0); Alkaline Phosphatase 53.0 U/L (34-104); Anion Gap 10.0 (3-11); Bilirubin,Total 0.5 mg/dl (0.2-1.0); Blood Urea Nitrogen 18.0 mg/dl (6-23); Calcium 9.4 mg/dl (8.6-10.3); Carbon Dioxide 24.0 mmol/L (21-32); Chloride 99.0 mmol/L (98-107); Creatinine Clr Calc Pharmacy 117.1 ml/min; Globulin 4.5 gm/dl (2.5-4.0); Glucose 207.0 mg/dl (70-99(Fasting)); Magnesium 1.9 mg/dl (1.7-2.4); Potassium 3.8 mmol/L (3.5-5.1); Sodium 133.0 mmol/L (136-145); Total Protein 8.1 gm/dl (6.0-8.3)
--- NOTE | 2025-08-08 10:46 | Infectious Disease Consult ---
Date of Service August 08, 2025 Telehealth Information I performed this visit using a real-time telehealth connection between my location and the patients location ([facility]). After connecting through interactive tele-video, patient was identified by name and date of and/or wristband check.Patient (or authorized healthcare call center support representative) was informed that this was a telemedicine visit and it was being conducted confidentially over secure lines. My office door was closed and no one else was present in the room with me.Patient (or authorized healthcare call center support representative) provided consent to proceed with the visit, expressed an understanding of privacy and security of the telemedicine visit, and gave permission to have a hospital call center support representative in the room in order to assist with the visit and to conduct portions of the visit, as needed. I informed the patient (or authorized healthcare call center support representative) that I reviewed their record and presented the opportunity for them to ask any questions regarding the visit today. The patient agreed to participate. 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 Pt was discharge minocycline and levaquin and was not able to tolerate the medication. Pt admits that he took a MVI with levaquin and minocycline. This effects both fluoroquinolones and tetracyclines classes. Explained that MVIs and any supplements with free floating polyvalent cations such as Ca, Mg, Zn, and Fe, interaction with these drugs causing them not to be absorbed. Pt essentially did not receive any of these medications due to this interaction. Recommendations: - Recommend stopping Cefepime IV and Doxycycline PO for now. Recommend starting Levaquin 750 mg PO daily alone and monitor for toleration. - if patient improves on Levaquin PO, okay to discharge on this medication to complete a course of 14 days. - we will not actively monitor patient, for additional recommendations or questions please contact the physician covering [employer] [facility]. History of Present Illness History of Present Illness Reason for consult: wound infection Patient is 50 year old male with PMH DM II with neuropathy, chronic venous stasis with lower extremity edema, Hx of DVT, 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 Pt was discharge minocycline and levaquin and was not able to tolerate the medication. Pt admitted 08/01-08/05 for wound infection. D/C on oral antibiotics. Pt wishes to pursue IV at discharge given his history. Sx have worsening including worsening pain to L ankle and worsening foul smell. He also c/o cold sweats, nausea and vomiting. He also c/o increased SOB. Pt admits that he took a MVI with levaquin and minocycline. Explained that MVIs and any supplements with free floating polyvalent cations such as Ca, Mg, Zn, and Fe, interaction with these drugs causing them not to be absorbed. Pt essentially did not receive any of these medications due to this interaction. ID consulted for evaluation and management. Allergies Allergy/AdvReac Type Severity Reaction Status Date / Time peas Allergy Severe Anaphylaxis Verified 06/19/23 10:28 tuna oil Allergy Severe Anaphylaxis Verified 06/19/23 10:28 to "tuna" sulfamethoxazole Allergy Intermediate hives Verified 06/19/23 10:28 trimethoprim Allergy Intermediate hives Verified 06/19/23 10:28 Home Medications Medication Instructions Recorded Confirmed Type albuterol sulfate 90 mcg/actuation 1 puff inhalation Q6H PRN 05/09/18 08/07/25 History aerosol inhaler (Ventolin HFA) Shortness Of Breath folic acid 1 mg tablet 1 mg PO QAM 05/09/18 08/07/25 History omeprazole 20 mg capsule,delayed 20 mg PO BID 05/09/18 08/07/25 History release diphenhydramine HCl 25 mg capsule 25 mg PO Q6H PRN Itching 10/23/19 08/07/25 History (Benadryl) furosemide 80 mg tablet 80 mg PO BID17 10/23/19 08/07/25 History multivitamin 1 tab PO QAM 06/05/20 08/07/25 History buspirone 15 mg tablet 15 mg PO BID 10/02/22 08/07/25 History fluoxetine 20 mg capsule 20 mg PO HS 10/02/22 08/07/25 History fluticasone 500 mcg-salmeterol 50 1 inh inhalation BID 10/02/22 08/07/25 History mcg/dose blistr powdr for inhalation montelukast 10 mg tablet 10 mg PO DAILY 10/02/22 08/07/25 History ammonium lactate 5 % lotion 1 applic EXT BID #226 grams 10/08/22 08/07/25 Rx (Lac-Hydrin Five) hydroxyzine HCl 10 mg tablet 10 mg PO Q8H PRN Itching 10/29/22 08/07/25 History tiotropium bromide 2.5 2 inh inhalation DAILY 10/29/22 08/07/25 History mcg/actuation mist for inhalation (Spiriva Respimat) pregabalin 150 mg capsule 150 mg PO TID 06/04/23 08/07/25 History blood-glucose meter (Accu-Chek #1 ea 06/14/23 08/07/25 Rx Guide Glucose Meter) apixaban 5 mg tablet (Eliquis) 5 mg PO BID 08/01/25 08/07/25 History atorvastatin 40 mg tablet 40 mg PO DAILY 08/01/25 08/07/25 History losartan 25 mg tablet 25 mg PO DAILY 08/01/25 08/07/25 History oxycodone 10 mg tablet 10 mg PO QID PRN Severe Pain 08/01/25 08/07/25 History (Scale Score 7-10) semaglutide 1 mg/dose (4 mg/3 mL) 1 mg subcut WK 08/01/25 08/07/25 History subcutaneous pen injector (Ozempic) spironolactone 100 mg tablet 100 mg PO DAILY 08/01/25 08/07/25 History levofloxacin 750 mg tablet 750 mg PO DAILY@1100 14 days #14 08/05/25 08/07/25 Rx tabs minocycline 100 mg capsule 200 mg (2 x 100 mg) PO BID 14 days 08/05/25 08/07/25 Rx #56 caps Patient History Medical History Diabetes mellitus, type 2 Pulmonary embolism 13 YEARS AGO ? DETAILS Blood clotting disorder ? NAME Hyperlipidemia Asthma USED RESCUE INHALER TODAY Anxiety and depression Chronic narcotic use HTN (hypertension) GERD (gastroesophageal reflux disease) Chronic deep vein thrombosis (DVT) 2018 (HOSPITALIZED AT [facility]) Tobacco abuse Cellulitis BILAT LEGS (WRAPS LEGS/DRY CLOTH) CURRENTLY HAS SOME OPEN WOUNDS>GOES TO WOUND CLINIC/[facility] Surgical History History of anesthesia reaction WITH A-PORT INSERTION, WOKE UP IN MIDDLE OF PROCEDURE History of vascular access device APORT IN RT CHEST (IN PLACE) [place] teeth removed Family History Father ETOH abuse Cirrhosis Mother Hypercoagulable state Prothrombin Factor II Mutation, 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, boderline hyperhomocystemia Social History Smoking Status: Current some day smoker Tobacco Type: Cigarettes Cigarettes Per Day: 1/2 pack; Second Hand Exposure: No; Do You Dip or Chew Tobacco: No; Hx Alcohol Use: Yes Alcohol type: beer Alcohol Intake Frequency Comment: Pt reports quit drinking end of 07/2018 Hx Substance Use: No Preferred Language: [place] Communication Ability: Effective Visual Impairment: No Limitations Hearing Ability: Normal Bankruptcy Law Specialist Required: No Beliefs That Will Affect Care: None marital status: Current Living Situation: Family Current Living Situation Comment: With Mother How many Children do You have: 0 Feels Safe at Home: Yes Assistive Devices: None Review of Systems all negative so far Physical Exam NA Results & Data Vital Signs (Past 12 Hours) Vital Signs Temp Pulse Resp BP Pulse Ox O2 Del Method 08/08/25 08:05 36.7 C 79 18 137/87 95 Room Air 08/08/25 07:07 84 18 96 Room Air Laboratory Results Right Ankle culture on 08/01/2025 Source: Ankle,Right OV Order: Ordered: Surf Wnd Cul/Sm Procedure Result Verified Site Gram Stain Final 08/01/25 Gram Stain Result Rare WBCs Seen Few Gram Negative Bacilli Rare Gram Positive Cocci Surface Wound Culture Final 08/04/25-806 Organism 1 Serratia marcescens Quantity Many Sens Sensitivities to Follow Organism 2 Klebsiella oxytoc/[place] ornith Quantity Moderate Sens Sensitivities to Follow Organism 3 Stenotrophomonas maltophilia Quantity Few Sens Sensitivities to Follow S marcesc Kl oxy/[place] Steno malt RX M.I.C. RX M.I.C. RX M.I.C. --- --------- --- --------- --- --------- Amikacin S <=16 S <=16 Amox/Clav S <=8/4 Ampicillin R >16 Amp/Sul S 8/4 Cefazolin R 16 Cefepime S <=2 S <=2 Cefotaxime I 16 S <=2 Cefoxitin S <=8 Ceftriaxone R 8 S <=1 Cefuroxime S <=4 Ciprofloxacin S <=0.25 S <=0.25 Ertapenem S <=0.5 S <=0.5 Gentamicin S <=2 S <=2 Levofloxacin S <=0.5 S <=0.5 Meropenem S <=1 S <=1 Tobramycin S <=2 S <=2 Trimeth/Sulfa S <=0.5/9.5 S <=0.5/9.5 S <=0.5/9.5 Pip/Tazo I 64 S <=8 S = SENSITIVE I = INTERMEDIATE R = RESISTANT 08/07/25 10:28 Aerobic Blood Culture - Preliminary Blood No growth in Aerobic bottle after 24 hours. Anaerobic Blood Culture - Pending 08/07/25 10:14 Aerobic Blood Culture - Preliminary Blood No growth in Aerobic bottle after 24 hours. Anaerobic Blood Culture - Preliminary No growth in Anaerobic bottle after 24 hours. 08/08/25 08/08/25 08/08/25 11:28 09:45 07:28 WBC 4.16 L RBC 4.52 L Hgb 12.1 L Hct 37.0 L MCV 81.9 MCH 26.8 MCHC 32.7 RDW Std Deviation 48.1 H RDW Coeff of Kip 16.1 H Plt Count 201 MPV 10.6 Immature Gran % (Auto) 0.5 Neut % (Auto) 65.1 Lymph % (Auto) 21.2 Dillon % (Auto) 7.7 Eos % (Auto) 4.3 Baso % (Auto) 1.2 Neut # (Auto) 2.71 Lymph # (Auto) 0.88 L Dillon # (Auto) 0.32 Eos # (Auto) 0.18 Baso # (Auto) 0.05 Immature Gran # (Auto) 0.02 Sodium 133 L Potassium 3.8 Chloride 99 Carbon Dioxide 24 Anion Gap 10 BUN 18 Creatinine 0.87 Est Cr Clr Drug Dosing 117.1 eGFR 104.47 BUN/Creatinine Ratio 20.7 H Glucose 207 H POC Glucose 187 H 201 H Calcium 9.4 Magnesium 1.9 Total Bilirubin 0.5 AST 19 ALT 23 Alkaline Phosphatase 53 Troponin I High Sens Total Protein 8.1 Albumin 3.6 Globulin 4.5 H Albumin/Globulin Ratio 0.8 L Lipase Urine Color Urine Appearance Urine pH Ur Specific Stowell Urine Protein Urine Glucose (UA) Urine Ketones Urine Blood Urine Nitrite Urine Bilirubin Urine Urobilinogen Ur Leukocyte Esterase Urine WBC (Auto) Urine RBC (Auto) U Hyaline Cast (Auto) U Epithel Cells (Auto) Urine Bacteria (Auto) Urine Comment Adenovirus (PCR) B. pertussis DNA (PCR) B.parapertussis DNA PCR C. pneumoniae DNA (PCR) Coronavirus OC43 (PCR) Coronavirus HKU1 (PCR) Coronavirus 229E (PCR) SARS-CoV-2 (PCR) Coronavirus NL63 (PCR) Human Metapneumovir PCR Influenza Type A (PCR) Influenza Type B (PCR) M. pneumoniae (PCR) Parainfluenza 1 (PCR) Parainfluenza 2 (PCR) Parainfluenza 3 (PCR) Parainfluenza 4 (PCR) RSV (PCR) Entero/Rhino (PCR) 08/07/25 08/07/25 08/07/25 19:42 16:59 14:43 WBC RBC Hgb Hct MCV MCH MCHC RDW Std Deviation RDW Coeff of Kip Plt Count MPV Immature Gran % (Auto) Neut % (Auto) Lymph % (Auto) Dillon % (Auto) Eos % (Auto) Baso % (Auto) Neut # (Auto) Lymph # (Auto) Dillon # (Auto) Eos # (Auto) Baso # (Auto) Immature Gran # (Auto) Sodium Potassium Chloride Carbon Dioxide Anion Gap BUN Creatinine Est Cr Clr Drug Dosing eGFR BUN/Creatinine Ratio Glucose POC Glucose 188 H 198 H Calcium Magnesium Total Bilirubin AST ALT Alkaline Phosphatase Troponin I High Sens Total Protein Albumin Globulin Albumin/Globulin Ratio Lipase Urine Color Yellow Urine Appearance Clear Urine pH 7.5 Ur Specific Stowell 1.033 H Urine Protein 1+ H Urine Glucose (UA) 1+ H Urine Ketones Negative Urine Blood Negative Urine Nitrite Negative Urine Bilirubin Negative Urine Urobilinogen Negative Ur Leukocyte Esterase Negative Urine WBC (Auto) 0-5 Urine RBC (Auto) 0-2 U Hyaline Cast (Auto) 0-2 U Epithel Cells (Auto) 0-2 Urine Bacteria (Auto) None Seen Urine Comment Adenovirus (PCR) B. pertussis DNA (PCR) B.parapertussis DNA PCR C. pneumoniae DNA (PCR) Coronavirus OC43 (PCR) Coronavirus HKU1 (PCR) Coronavirus 229E (PCR) SARS-CoV-2 (PCR) Coronavirus NL63 (PCR) Human Metapneumovir PCR Influenza Type A (PCR) Influenza Type B (PCR) M. pneumoniae (PCR) Parainfluenza 1 (PCR) Parainfluenza 2 (PCR) Parainfluenza 3 (PCR) Parainfluenza 4 (PCR) RSV (PCR) Entero/Rhino (PCR) 08/07/25 08/07/25 14:04 10:14 WBC RBC Hgb Hct MCV MCH MCHC RDW Std Deviation RDW Coeff of Kip Plt Count MPV Immature Gran % (Auto) Neut % (Auto) Lymph % (Auto) Dillon % (Auto) Eos % (Auto) Baso % (Auto) Neut # (Auto) Lymph # (Auto) Dillon # (Auto) Eos # (Auto) Baso # (Auto) Immature Gran # (Auto) Sodium Potassium Chloride Carbon Dioxide Anion Gap BUN Creatinine Est Cr Clr Drug Dosing eGFR BUN/Creatinine Ratio Glucose POC Glucose Calcium Magnesium Total Bilirubin AST ALT Alkaline Phosphatase Troponin I High Sens 2.7 Total Protein Albumin Globulin Albumin/Globulin Ratio Lipase 14 Urine Color Urine Appearance Urine pH Ur Specific Stowell Urine Protein Urine Glucose (UA) Urine Ketones Urine Blood Urine Nitrite Urine Bilirubin Urine Urobilinogen Ur Leukocyte Esterase Urine WBC (Auto) Urine RBC (Auto) U Hyaline Cast (Auto) U Epithel Cells (Auto) Urine Bacteria (Auto) Urine Comment Adenovirus (PCR) Not Detected B. pertussis DNA (PCR) Not Detected B.parapertussis DNA PCR Not Detected C. pneumoniae DNA (PCR) Not Detected Coronavirus OC43 (PCR) Not Detected Coronavirus HKU1 (PCR) Not Detected Coronavirus 229E (PCR) Not Detected SARS-CoV-2 (PCR) Not Detected Coronavirus NL63 (PCR) Not Detected Human Metapneumovir PCR Not Detected Influenza Type A (PCR) Not Detected Influenza Type B (PCR) Not Detected M. pneumoniae (PCR) Not Detected Parainfluenza 1 (PCR) Not Detected Parainfluenza 2 (PCR) Not Detected Parainfluenza 3 (PCR) Not Detected Parainfluenza 4 (PCR) Not Detected RSV (PCR) Not Detected Entero/Rhino (PCR) Not Detected Medications Administered Home Medications Medication Instructions Recorded Confirmed Last Taken albuterol sulfate 90 mcg/actuation 1 puff inhalation Q6H PRN 05/09/18 08/07/25 05/12/19 08:00 aerosol inhaler (Ventolin HFA) Shortness Of Breath folic acid 1 mg tablet 1 mg PO QAM 05/09/18 08/07/25 01/11/23 omeprazole 20 mg capsule,delayed 20 mg PO BID 05/09/18 08/07/25 01/11/23 release diphenhydramine HCl 25 mg capsule 25 mg PO Q6H PRN Itching 10/23/19 08/07/25 02/02/23 (Benadryl) furosemide 80 mg tablet 80 mg PO BID17 10/23/19 08/07/25 01/11/23 multivitamin 1 tab PO QAM 06/05/20 08/07/25 01/11/23 buspirone 15 mg tablet 15 mg PO BID 10/02/22 08/07/25 02/02/23 fluoxetine 20 mg capsule 20 mg PO HS 10/02/22 08/07/25 01/11/23 fluticasone 500 mcg-salmeterol 50 1 inh inhalation BID 10/02/22 08/07/2505/20 mcg/dose blistr powdr for inhalation montelukast 10 mg tablet 10 mg PO DAILY 10/02/22 08/07/25 01/11/23 ammonium lactate 5 % lotion 1 applic EXT BID #226 grams 10/08/22 08/07/25 (Lac-Hydrin Five) hydroxyzine HCl 10 mg tablet 10 mg PO Q8H PRN Itching 10/29/22 08/07/25 01/11/23 tiotropium bromide 2.5 2 inh inhalation DAILY 10/29/22 08/07/25 02/03/23 mcg/actuation mist for inhalation (Spiriva Respimat) pregabalin 150 mg capsule 150 mg PO TID 06/04/23 08/07/25 Unknown blood-glucose meter (Accu-Chek #1 ea 06/14/23 08/07/25 Unknown Guide Glucose Meter) apixaban 5 mg tablet (Eliquis) 5 mg PO BID 08/01/25 08/07/25 Unknown atorvastatin 40 mg tablet 40 mg PO DAILY 08/01/25 08/07/25 Unknown losartan 25 mg tablet 25 mg PO DAILY 08/01/25 08/07/25 Unknown oxycodone 10 mg tablet 10 mg PO QID PRN Severe Pain 08/01/25 08/07/25 Unknown (Scale Score 7-10) semaglutide 1 mg/dose (4 mg/3 mL) 1 mg subcut WK 08/01/25 08/07/25 Unknown subcutaneous pen injector (Ozempic) spironolactone 100 mg tablet 100 mg PO DAILY 08/01/25 08/07/25 Unknown levofloxacin 750 mg tablet 750 mg PO DAILY@1100 14 days #14 08/05/25 08/07/25 Unknown tabs minocycline 100 mg capsule 200 mg (2 x 100 mg) PO BID 14 days 08/05/25 08/07/25 Unknown #56 caps Active Medications Generic Name Dose Route Start Last Admin Trade Name Freq PRN Reason Stop Dose Admin Albuterol 3 ml 08/07/25 19:00 08/08/25 12:02 Albut/Ipratrop 3mg/0.5mg Neb 3 Ml Vial NEB 09/06/25 18:59 3 ml [id number] OTILIA Administration Protocol Apixaban 5 mg 08/07/25 21:00 08/08/25 07:40 Apixaban 5 Mg Tablet PO 09/06/25 20:59 5 mg BID OTILIA Administration Atorvastatin Calcium 40 mg 08/08/25 09:00 08/08/25 07:40 Atorvastatin 40 Mg Tab PO 09/07/25 08:59 40 mg DAILY OTILIA Administration Budesonide 0.5 mg 08/07/25 19:00 08/08/25 07:06 Budesonide 0.5 Mg/2 Ml Vial (Pulmicort) NEB 09/06/25 18:59 0.5 mg BIDR OTILIA Administration Buspirone HCl 15 mg 08/07/25 21:00 08/08/25 07:42 Buspirone 15 Mg Tab PO 09/06/25 20:59 15 mg BID OTILIA Administration Collagenase 1 appln 08/08/25 09:00 08/08/25 07:40 Collagenase Oint 30 Gm Tube EXT 09/07/25 08:59 1 appln DAILY OTILIA Administration Diphenhydramine HCl 25 mg 08/07/25 18:32 08/08/25 08:20 Diphenhydramine 50 Mg/Ml Vial IV 09/06/25 18:31 25 mg Q8H PRN Administration itching Docusate Sodium 100 mg 08/07/25 21:00 08/08/25 07:45 Docusate Sodium 100 Mg Cap PO 09/06/25 20:59 100 mg BID OTILIA Administration Doxycycline Hyclate 100 mg 08/07/25 21:00 08/08/25 07:41 Doxycycline Hyclate 100 Mg Cap PO 08/12/25 20:59 100 mg BID OTILIA Administration Fluoxetine HCl 20 mg 08/07/25 21:00 08/07/25 21:30 Fluoxetine Hcl 20 Mg Cap PO 09/06/25 20:59 20 mg HS OTILIA Administration Folic Acid 1 mg 08/08/25 09:00 08/08/25 07:41 Folic Acid 1 Mg Tab PO 09/07/25 08:59 1 mg QAM OTILIA Administration Formoterol Fumarate 20 mcg 08/07/25 19:00 08/08/25 07:06 Formoterol 20 Mcg/2 Ml Vial NEB 09/06/25 18:59 20 mcg BIDR OTILIA Administration Furosemide 80 mg 08/07/25 17:00 08/08/25 07:41 Furosemide 80 Mg Tab PO 09/06/25 16:59 80 mg BID17 OTILIA Administration Cefepime HCl 2,000 mg in 20 mls @ 5 mls/min 08/07/25 21:00 08/08/25 12:49 Maxipime 2000mg IV 08/14/25 20:59 5 mls/min Q8H OTILIA Administration Protocol Insulin Aspart 0 units 08/07/25 16:30 08/08/25 12:15 Insulin Aspart Per Unit Charge SC 09/06/25 16:29 5 units ACHS OTILIA Administration Insulin Glargine 0 - 8 units 08/07/25 21:00 08/07/25 21:32 Lantus Per Unit Charge SQ 09/06/25 20:59 8 units HS OTILIA Administration Lactic Acid 5 gm 08/07/25 21:00 08/08/25 07:39 Ammonium Lactate 12% Lotion 225 Gm Btl EXT 09/06/25 20:59 5 gm BID OTILIA Administration Lactobacillus Acidophilus 1,250 mg 08/08/25 09:00 08/08/25 07:41 Advanced Probiotic 625 Mg Capsule PO 09/07/25 08:59 1,250 mg DAILY OTILIA Administration Losartan Potassium 25 mg 08/08/25 09:00 08/08/25 07:42 Losartan Potassium 25 Mg Tab PO 09/07/25 08:59 25 mg DAILY OTILIA Administration Melatonin 6 mg 08/07/25 21:00 08/07/25 21:29 Melatonin 3 Mg Tab PO 09/06/25 20:59 6 mg HS PRN Administration Sleep Miscellaneous 1 each 08/08/25 08:59 08/08/25 07:39 Remove Nicoderm Patch N/A 09/07/25 08:58 1 each DAILY@0859 OTILIA Administration Montelukast Sodium 10 mg 08/08/25 09:00 08/08/25 07:47 Montelukast Sodium 10 Mg Tablet PO 09/07/25 08:59 10 mg DAILY OTILIA Administration Morphine Sulfate 3 mg 08/07/25 16:27 08/08/25 13:36 Morphine Sulfate 4 Mg/Ml 1 Ml Carp\\Vial IV 08/21/25 16:26 3 mg Q3H PRN Administration Severe Pain (Scale 7, 8, 9,10) Mupirocin 1 appln 08/07/25 21:00 08/08/25 07:46 Mupirocin 2% Oint 22 Gm Tube NA 09/06/25 20:59 1 appln BID OTILIA Administration Nicotine 1 patch 08/07/25 17:00 08/08/25 07:43 Nicotine 14 Mg/24 Hr Patch TD 09/06/25 16:59 1 patch QAM OTILIA Administration Oxycodone HCl 12.5 mg 08/07/25 16:43 08/08/25 10:06 Oxycodone Hcl Ir 5 Mg Tab (Immediate Release) PO 08/21/25 16:42 12.5 mg Q6H PRN Administration Moderate Pain (Scale 4, 5, 6) Pantoprazole Sodium 40 mg 08/07/25 21:00 08/08/25 07:43 Pantoprazole 40 Mg Tab PO 09/06/25 20:59 40 mg BID OTILIA Administration Protocol Pregabalin 150 mg 08/07/25 16:45 08/08/25 12:49 Pregabalin 150 Mg Cap PO 09/06/25 16:44 150 mg TID OTILIA Administration Spironolactone 100 mg 08/08/25 09:00 08/08/25 07:40 Spironolactone 100 Mg Tab PO 09/07/25 08:59 100 mg DAILY OTILIA Administration
--- NOTE | 2025-08-08 11:58 | Hospitalist Progress Note ---
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 Pt admitted 08/01-08/05 for wound infection. D/C on oral antibiotics. Endorsed worsening pain to R ankle and worsening foul smell. He also c/o cold sweats, nausea and vomiting. He also c/o increased SOB. #Bilateral ankle wounds, R worse than L #MRSA nares positive #Known Venous insufficiency with chronic vte - Recent MRI: no osteomyelitis - Wound culture: serratia marcescens, klebsiella oxytoc and Stenotrophomonas maltophilia - Failed PO abx regimen and represented for worsening pain, purulence in R foot -D/w vascular surgery LEAH; should have ok healing if any procedure is needed Plan -Podiatry following, considering biopsy -ID consulted for abx guidance -For now, continue doxy and cefepime based on prior wound culture data -F/u repeat blod cultures, NGTD #COPD #Abnormal CT #Cough -Low suspicion for PNA, No O2 requirements. lungs CTA -Continue breathing treatments #T2DM A1c: 6.7 on 06/20/25 Hold home ozempic lantus/novolog per protocol #HTN There was no JOVON this admission Resume home ARB, aldactone and lasix #Cirrhosis History alcoholic cirrhosis Has been abstaining from alcohol on furosemide, spironolactone as OP #HLD on statin at outpt #Chronic DVT continue eliquis #Chronic pain continue chronic oxy, lyrica will increase oxy to liquid 12.5mg during active phase of infection as he is on 10mg as outpt #Anemia -Normocytic -Chronic at baseline -No bleeding -Likely ACD -F/u PCP as OP #Anxiety chronic, stable continue buspar and prozac #Tobacco abuse continue nicotine patch #DVT ppx: Viktoriyaquis FULL CODE PCP: Willa Soto Dispo: admitted to medical, consult podiatry and ID I spent a total of 58 minutes coordinating, documenting, and providing care for this patient excluding time spent in the performance of separately billed services. This included personally reviewing all current laboratories and imaging studies, medical reconciliation, outpatient chart review and discussion with specialists Admission and Anticipated Discharge Date Admission Date: August 07, 2025 Subjective Feeling well today. Patient denies F/C, CP, palpitations, SOB, dyspnea, abd pain, N/V/D Physical Exam Physical Exam: Vitals and labs reviewed General: Well appearing, NAD HEENT: EOMI, PERRLA Neck: Supple Cardiac: RRR no rubs gallops or murmurs Lungs: CTA no rhonchi wheezing or rales Abd: S NT ND BS positive : Deffered MSK: Full ROM. Ext: extensive venous stasis changes bilaterally. b/l LE erythema. R medial and lateral malleolus ulcers Skin: Warm, Dry Neuro: AOx3 No focal deficits. Psych: Normal Mood Results & Data Results & Data Vital Signs (Past 12 Hours) Vital Signs Temp Pulse Resp BP Pulse Ox O2 Del Method 08/08/25 08:05 36.7 C 79 18 137/87 95 Room Air 08/08/25 07:07 84 18 96 Room Air Laboratory Results Abnormal lab results 08/07/25 08/07/25 08/07/25 Range/Units 14:43 16:59 19:42 WBC (4.8-10.8) K/ul RBC (4.70-6.10) M/uL Hgb (14.0-18.0) g/dL Hct (42.0-52.0) % RDW Std Deviation (36.4-46.3) fL RDW Coeff of Kip (11.5-14.5) % Lymph # (Auto) (1.20-3.40) K/uL Sodium (136-145) mmol/L BUN/Creatinine Ratio (10-20) Glucose (70-99(Fasting)) mg/dl POC Glucose 198 H 188 H (70-99) mg/dl Globulin (2.5-4.0) gm/dl Albumin/Globulin Ratio (0.9-2) Ur Specific [place] 1.033 H (1.000-1.030) Urine Protein 1+ H (Negative) Urine Glucose (UA) 1+ H (Negative) 08/08/25 08/08/25 08/08/25 Range/Units 07:28 09:45 11:28 WBC 4.16 L (4.8-10.8) K/ul RBC 4.52 L (4.70-6.10) M/uL Hgb 12.1 L (14.0-18.0) g/dL Hct 37.0 L (42.0-52.0) % RDW Std Deviation 48.1 H (36.4-46.3) fL RDW Coeff of Kip 16.1 H (11.5-14.5) % Lymph # (Auto) 0.88 L (1.20-3.40) K/uL Sodium 133 L (136-145) mmol/L BUN/Creatinine Ratio 20.7 H (10-20) Glucose 207 H (70-99(Fasting)) mg/dl POC Glucose 201 H 187 H (70-99) mg/dl Globulin 4.5 H (2.5-4.0) gm/dl Albumin/Globulin Ratio 0.8 L (0.9-2) Ur Specific [place] (1.000-1.030) Urine Protein (Negative) Urine Glucose (UA) (Negative) (8) Cirrhosis Hepatic cirrhosis type: alcoholic cirrhosis Ascites presence: unspecified Qualified Code(s): K70.30 - Alcoholic cirrhosis of liver without ascites (9) Type 2 diabetes mellitus Diabetes mellitus ocean transportation intermediary insulin use: unspecified fdc insulin use status Diabetes mellitus complication status: with other specified complication Qualified Code(s): E11.69 - Type 2 diabetes mellitus with other specified c omplication (10) Chronic deep vein thrombosis (DVT) Affected thrombotic vein of extremity: unspecified vein of extremity DVT location: lower extremity Laterality: right Qualified Code(s): I82.501 - Chronic embolism and thrombosis of unspecified deep veins of right lower extremity
--- NOTE | 2025-08-08 12:46 | Podiatry Progress Note ---
Date of Service August 08, 2025 Assessment & Plan (1) Peripheral arterial disease: (2) Cellulitis of right lower extremity: (3) Cellulitis of left leg: (4) Chronic ulcer of left ankle with fat layer exposed: (5) Chronic ulcer of right ankle with fat layer exposed: Plan Patient examined and evaluated. Chart reviewed. Reviewed my own notes from this patient outpatient in 2021. At that point, he had similar wounds already and was seeing us as another opinion regarding them not healing. He was considering proximal amputation even at that point, given the extensive pain and his cavus foot deformity, which has also bothered him in the past. Now, after not healing for over three years or so, I have concern that their is more significant small vessel disease and/or peripheral arterial disease limiting his healing potential. This inability to heal them despite aggressive care at varying points is concerning for future healing potential. We did again discuss that he could benefit from a biopsy of the tibial and fibular bone, in the area of the ulcerations, in addition to the adjacent soft tissue and wounds overall to rule out underlying osteomyelitis and/or malignant transformation. I did discuss that I could make no guarantee that this sharp debridement and excision of tissue would improve his state and could potentially worsen his leg ulcers and chronic pain. For now, he should continue with IV antibiotics and, if he desires and is clinically appropriate, can continue with IV antibiotics in a longterm care facility. He will have to contemplate how aggressively he wants to attempt limb salvage, given his history and current findings. Will continue to follow. Admission and Anticipated Discharge Date Admission Date: August 07, 2025 Subjective Patient seen at bedside at lunchtime. Denies any new pain or concerns; states the wounds are still painful though this is close to his baseline. Denies any changes to his overall health/goals. States he wants to be discharged to inpatient rehab or nursing facility for IV antibiotics because "this has always worked in the past." States if he leaves on oral antibiotics he'd "be back in a few days worse off". Review of Systems Constitutional: + fever and + weakness; no chills Eyes: + problem reported Ear, Nose, Mouth, Throat: no problem reported Respiratory: + cough, + chest congestion and + wheezi ng Cardiovascular: + edema and + claudication Gastrointestinal: no problem reported Genitourinary: no problem reported Musculoskeletal: no problem reported Integumentary: + non-healing lesions, + changing lesion s, + skin ulcer, + wounds and + erythema Worsening odor, worse on the right than left Neurologic: + generalized weakness and + problem rep orted Psychiatric: no problem reported Endocrine: no problem reported Physical Exam Physical Exam: Lower extremity focused exam: DP/PT pulses nonpalpable. Advanced trophic changes noted to the bilateral lower extremity from mid tibia distally. Skin is thin and is extensively scarred to the anterior leg. There is evidence of venous stasis and peripheral arterial insufficiency. Bilateral lower extremity is warm to the touch with erythema radiating from ulcerations to the right medial and lateral malleolus and left medial malleolus. No deep probing is noted. No significant purulent drainage is appreciated. Scant serous drainage is noted. Pain is significant on palpation and exam of these ulcerations. Wounds themselves are small, measuring 1 cm each with a fibrotic wound base. Constitutional: WD/WN, vitals as above + ill appearing and + obese Eyes: PERRL, conjunctivae normal, anicteric sclerae ENMT: external ear and nose normal, oropharynx normal Mouth: + poor dentition Neck: trachea midline, no thyromegaly normal visual inspection Respiratory: normal respiratory effort; no respiratory distress Cardiovascular: Rate/Rhythm: regular rate and regular rhythm Vessels: + posterior tibial pulses abnormal and + dorsalis pedis pulses abnormal Chest (Breasts): Chest: normal inspection of chest Gastrointestinal (Abdomen): Inspection/Auscultation: abdomen normal to inspection Percussion/Palpation: + abdomen tender and abdomen soft Musculoskeletal: no cyanosis or clubbing, extremities motor strength 5/5 Head/Neck/Chest: normocephalic and head atraumatic Extremities: extremities n ormal to inspection Skin: + skin tightening, + wound, + skin atrop hy, + erythema, + scar and + nails dystrophic; + abnormal skin elasticity Neurologic: awake; no focal motor deficits Psychiatric: A+Ox3, euthymic affect Results & Data Results & Data Vital Signs (Past 12 Hours) Vital Signs Temp Pulse Resp BP Pulse Ox O2 Del Method 08/08/25 12:02 68 18 97 Nasal Cannula 08/08/25 08:05 36.7 C 79 18 137/87 95 Room Air 08/08/25 07:07 84 18 96 Room Air
--- NOTE | 2025-08-08 15:30 | Ultrasound Report ---
US ankle/brachial index ltd HISTORY: 50 years-old Male aortoiliac disease, venous ulcers, please add TBI. COMPARISON: Arterial Doppler 08/02/2025 TECHNIQUE: Segmental pressures of the lower pelvis were obtained FINDINGS: RIGHT: Brachial-106 (index); dorsalis pedis-114 (0.98); posterior tibial-111 (0.96); toe-88 (0.76); A BI-0.98; TBI-0.76. LEFT: Brachial-116 (index); dorsalis pedis-103 (0.89); posterior tibial-115 (0.99); toe-81 (0.70); AB I-0.99; TBI-0.70. IMPRESSION: Normal ABIs bilaterally. ACT 112: Negative or not required by law. The above report was generated using voice recognition software. It may contain grammatical, syntax o r spelling errors. Electronically signed by: Dante Cavazos M.D. 08/08/2025 3:28 PM
[2025-08-08] MEDS: HEPARIN 100 UNIT/ML 5ML FLUSH FLUSH PRN (19:59)
[2025-08-09 06:49] LABS: Hematocrit (blood only) 36.3 % (42.0-52.0); Hemoglobin 11.8 g/dL (14.0-18.0); Mean Corpuscular Hemoglobin 26.6 pg (25.0-34.0); Mean Corpuscular Volume 81.9 fL (80.0-100.0); Platelet Count 196 K/uL (130-400); RDW Standard Deviation 48.5 fL (36.4-46.3); Red Blood Count 4.43 M/uL (4.70-6.10); White Blood Count 3.86 K/ul (4.8-10.8)
[2025-08-09 07:13] LABS: Anion Gap 9.0 (3-11); Blood Urea Nitrogen 27.0 mg/dl (6-23); Calcium 9.1 mg/dl (8.6-10.3); Carbon Dioxide 25.0 mmol/L (21-32); Chloride 100.0 mmol/L (98-107); Creatinine Clr Calc Pharmacy 92.6 ml/min; Glucose 276.0 mg/dl (70-99(Fasting)); Potassium 3.9 mmol/L (3.5-5.1); Sodium 134.0 mmol/L (136-145)
[2025-08-09] MEDS: COLLAGENASE OINT 30 GM TUBE EXT SCH (08:26)
--- NOTE | 2025-08-09 11:51 | Hospitalist Progress Note ---
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 Pt admitted 08/01-08/05 for wound infection. D/C on oral antibiotics. Endorsed worsening pain to R ankle and worsening foul smell. He also c/o cold sweats, nausea and vomiting. He also c/o increased SOB. #Bilateral ankle wounds, R worse than L #MRSA nares positive #Known Venous insufficiency with chronic vte - Recent MRI: no osteomyelitis - Wound culture: serratia marcescens, klebsiella oxytoc and Stenotrophomonas maltophilia - Failed PO abx regimen and represented for worsening pain, purulence in R foot -D/w vascular surgery LEAH; should have ok healing if any procedure is needed Plan -Podiatry following, considering biopsy early next week -ID consulted for abx guidance-->recommended levaquin. -F/u repeat blod cultures, NGTD -Patient requesting SNF when ready #COPD #Abnormal CT #Cough -Low suspicion for PNA, No O2 requirements. lungs CTA -Continue breathing treatments #T2DM A1c: 6.7 on 06/20/25 Hold home ozempic BG poorly controlled so far Increase lantus to 10 units nightly SSI BGM ACHS #HTN There was no JOVON this admission Resume home ARB, aldactone and lasix #Cirrhosis History alcoholic cirrhosis Has been abstaining from alcohol on furosemide, spironolactone as OP #HLD on statin at outpt #Chronic DVT continue eliquis #Chronic pain continue chronic oxy, lyrica will increase oxy to liquid 12.5mg during active phase of infection as he is on 10mg as outpt #Anemia -Normocytic -Chronic at baseline -No bleeding -Likely ACD -F/u PCP as OP #Anxiety chronic, stable continue buspar and prozac #Tobacco abuse continue nicotine patch #DVT ppx: Eliquis FULL CODE PCP: Willa Soto Dispo: admitted to medical, consult podiatry and ID I spent a total of 51 minutes coordinating, documenting, and providing care for this patient excluding time spent in the performance of separately billed services. This included personally reviewing all current laboratories and imaging studies, medical reconciliation, outpatient chart review and discussion with specialists Admission and Anticipated Discharge Date Admission Date: August 07, 2025 Subjective Feeling well today. he states he ate some potato chips this AM which caused his BG levels to rise. Patient denies F/C, CP, palpitations, SOB, dyspnea, abd pain, N/V/D Physical Exam Physical Exam: Vitals and labs reviewed General: Well appearing, NAD HEENT: EOMI, PERRLA Neck: Supple Cardiac: RRR no rubs gallops or murmurs Lungs: CTA no rhonchi wheezing or rales Abd: S NT ND BS positive : Deffered MSK: Full ROM. Ext: extensive venous stasis changes bilaterally. b/l LE erythema. R medial and lateral malleolus ulcers Skin: Warm, Dry Neuro: AOx3 No focal deficits. Psych: Normal Mood Results & Data Results & Data Vital Signs (Past 12 Hours) Vital Signs Temp Pulse Resp BP Pulse Ox O2 Del Method 08/09/25 08:12 36.6 C 80 16 121/78 94 Room Air 08/09/25 07:28 78 18 95 Room Air 08/09/25 01:45 36.4 C L 70 18 99/66 L 94 Room Air Laboratory Results Abnormal lab results 08/08/25 08/08/25 08/09/25 Range/Units 16:16 20:09 06:13 WBC 3.86 L (4.8-10.8) K/ul RBC 4.43 L (4.70-6.10) M/uL Hgb 11.8 L (14.0-18.0) g/dL Hct 36.3 L (42.0-52.0) % RDW Std Deviation 48.5 H (36.4-46.3) fL RDW Coeff of Kip 16.0 H (11.5-14.5) % Sodium 134 L (136-145) mmol/L BUN 27 H (6-23) mg/dl BUN/Creatinine Ratio 24.5 H (10-20) Glucose 276 H (70-99(Fasting)) mg/dl POC Glucose 172 H 222 H (70-99) mg/dl 08/09/25 08/09/25 Range/Units 07:54 07:58 WBC (4.8-10.8) K/ul RBC (4.70-6.10) M/uL Hgb (14.0-18.0) g/dL Hct (42.0-52.0) % RDW Std Deviation (36.4-46.3) fL RDW Coeff of Kip (11.5-14.5) % Sodium (136-145) mmol/L BUN (6-23) mg/dl BUN/Creatinine Ratio (10-20) Glucose (70-99(Fasting)) mg/dl POC Glucose 341 H* 329 H* (70-99) mg/dl (8) Cirrhosis Hepatic cirrhosis type: alcoholic cirrhosis Ascites presence: unspecified Qualified Code(s): K70.30 - Alcoholic cirrhosis of liver without ascites (9) Type 2 diabetes mellitus Diabetes mellitus remote computer terminal 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
[2025-08-09] MEDS: POLYETHYLENE (MIRALAX) 17 GM PACK PO PRN (12:22)
[2025-08-09] MEDS: UMECLIDINIUM BROMIDE 62.5MCG/BLISTER 7 PUFFS/INHALER INH SCH (14:51)
[2025-08-09] MEDS: MAGNESIUM HYDROXIDE SUSP 30 ML UDC PO PRN (19:27)
[2025-08-09] MEDS: LANTUS PER UNIT CHARGE SQ SCH (20:41)
[2025-08-10 06:44] LABS: Hematocrit (blood only) 35.8 % (42.0-52.0); Hemoglobin 11.4 g/dL (14.0-18.0); Mean Corpuscular Hemoglobin 26.4 pg (25.0-34.0); Mean Corpuscular Volume 82.9 fL (80.0-100.0); Platelet Count 204 K/uL (130-400); RDW Standard Deviation 49.4 fL (36.4-46.3); Red Blood Count 4.32 M/uL (4.70-6.10); White Blood Count 4.80 K/ul (4.8-10.8)
[2025-08-10 07:22] LABS: Anion Gap 7.0 (3-11); Blood Urea Nitrogen 32.0 mg/dl (6-23); Calcium 9.0 mg/dl (8.6-10.3); Carbon Dioxide 26.0 mmol/L (21-32); Chloride 99.0 mmol/L (98-107); Creatinine Clr Calc Pharmacy 79.6 ml/min; Glucose 224.0 mg/dl (70-99(Fasting)); Potassium 4.0 mmol/L (3.5-5.1); Sodium 132.0 mmol/L (136-145)
--- NOTE | 2025-08-10 10:12 | Hospitalist Progress Note ---
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 Pt admitted 08/01-08/05 for wound infection. D/C on oral antibiotics. Endorsed worsening pain to R ankle and worsening foul smell. He also c/o cold sweats, nausea and vomiting. He also c/o increased SOB. #Bilateral ankle wounds, R worse than L #MRSA nares positive #Known Venous insufficiency with chronic vte - Recent MRI: no osteomyelitis - Wound culture: serratia marcescens, klebsiella oxytoc and Stenotrophomonas maltophilia - Failed PO abx regimen and represented for worsening pain, purulence in R foot -D/w vascular surgery LEAH; should have ok healing if any procedure is needed Plan -Podiatry following, considering biopsy early next week -ID consulted for abx guidance-->recommended levaquin. -F/u repeat blod cultures, NGTD -Patient requesting SNF when ready #COPD #Abnormal CT #Cough -Low suspicion for PNA, No O2 requirements. lungs CTA -Continue breathing treatments #T2DM A1c: 6.7 on 06/20/25 Hold home ozempic BG poorly controlled so far due to his diet consisting of candy and potato chips He was advised on the importance of euglycemia with wound healing Plan Increase lantus to 12 units nightly SSI BGM ACHS #HTN There was no JOVON this admission Resume home ARB, aldactone and lasix #Cirrhosis History alcoholic cirrhosis Has been abstaining from alcohol on furosemide, spironolactone as OP #HLD on statin at outpt #Chronic DVT continue eliquis #Chronic pain continue chronic oxy, lyrica will increase oxy to liquid 12.5mg during active phase of infection as he is on 10mg as outpt #Anemia -Normocytic -Chronic at baseline -No bleeding -Likely ACD -F/u PCP as OP #Anxiety chronic, stable continue buspar and prozac #Tobacco abuse continue nicotine patch #DVT ppx: Eliquis FULL CODE PCP: Willa Soto Dispo: admitted to medical, consult podiatry and ID I spent a total of 55 minutes coordinating, documenting, and providing care for this patient excluding time spent in the performance of separately billed services. This included personally reviewing all current laboratories and imaging studies, medical reconciliation, outpatient chart review and discussion with specialists Admission and Anticipated Discharge Date Admission Date: August 07, 2025 Subjective Feeling well today. He admits to eating candy and chips all day yesterday. Patient denies F/C, CP, palpitations, SOB, dyspnea, abd pain, N/V/D Physical Exam 2 Physical Exam: Vitals and labs reviewed General: Well appearing, NAD HEENT: EOMI, PERRLA Neck: Supple Cardiac: RRR no rubs gallops or murmurs Lungs: CTA no rhonchi wheezing or rales Abd: S NT ND BS positive : Deffered MSK: Full ROM. Ext: extensive venous stasis changes bilaterally. b/l LE erythema. R medial and lateral malleolus ulcers Skin: Warm, Dry Neuro: AOx3 No focal deficits. Psych: Normal Mood Results & Data Results & Data Vital Signs (Past 12 Hours) Vital Signs Temp Pulse Resp BP Pulse Ox O2 Del Method 08/10/25 07:25 36.8 C 16 117/72 99 Room Air 08/10/25 07:22 79 16 98 Room Air 08/09/25 23:05 36.5 C 79 16 94/59 L 96 Room Air Laboratory Results Abnormal lab results 08/09/25 08/09/25 08/09/25 Range/Units 12:07 16:52 16:53 RBC (4.70-6.10) M/uL Hgb (14.0-18.0) g/dL Hct (42.0-52.0) % MCHC (32.0-36.0) g/dL RDW Std Deviation (36.4-46.3) fL RDW Coeff of Kip (11.5-14.5) % Sodium (136-145) mmol/L BUN (6-23) mg/dl BUN/Creatinine Ratio (10-20) Glucose (70-99(Fasting)) mg/dl POC Glucose 139 H 320 H* 306 H* (70-99) mg/dl 08/09/25 08/10/25 08/10/25 Range/Units 20:10 05:58 07:53 RBC 4.32 L (4.70-6.10) M/uL Hgb 11.4 L (14.0-18.0) g/dL Hct 35.8 L (42.0-52.0) % MCHC 31.8 L (32.0-36.0) g/dL RDW Std Deviation 49.4 H (36.4-46.3) fL RDW Coeff of Kip 16.4 H (11.5-14.5) % Sodium 132 L (136-145) mmol/L BUN 32 H (6-23) mg/dl BUN/Creatinine Ratio 25.0 H (10-20) Glucose 224 H (70-99(Fasting)) mg/dl POC Glucose 227 H 233 H (70-99) mg/dl (8) Cirrhosis Hepatic cirrhosis type: alcoholic cirrhosis Ascites presence: unspecified Qualified Code(s): K70.30 - Alcoholic cirrhosis of liver without ascites (9) Type 2 diabetes mellitus Diabetes mellitus chcf insulin use: unspecified chcf insulin use status Diabetes mellitus complication status: with other specified complication Qualified Code(s): E11.69 - Type 2 diabetes mellitus with other specified complication (10) Chronic deep vein thrombosis (DVT) Affected thrombotic vein of extremity: unspecified vein of extremity DVT location: lower extremity Laterality: right Qualified Code(s): I82.501 - Chronic embolism and thrombosis of unspecified deep veins of right lower extremity
[2025-08-10] MEDS: ALUMINUM/MAGNESIUM SUSP 30 ML UDC PO PRN (16:19)
[2025-08-10] MEDS: LANTUS PER UNIT CHARGE SQ SCH (20:41)
[2025-08-11 06:21] LABS: Hematocrit (blood only) 34.0 % (42.0-52.0); Hemoglobin 11.1 g/dL (14.0-18.0); Mean Corpuscular Hemoglobin 27.3 pg (25.0-34.0); Mean Corpuscular Volume 83.7 fL (80.0-100.0); Platelet Count 190 K/uL (130-400); RDW Standard Deviation 50.2 fL (36.4-46.3); Red Blood Count 4.06 M/uL (4.70-6.10); White Blood Count 4.59 K/ul (4.8-10.8)
[2025-08-11 06:40] LABS: Anion Gap 6.0 (3-11); Blood Urea Nitrogen 33.0 mg/dl (6-23); Calcium 9.2 mg/dl (8.6-10.3); Carbon Dioxide 29.0 mmol/L (21-32); Chloride 100.0 mmol/L (98-107); Creatinine Clr Calc Pharmacy 78.4 ml/min; Glucose 180.0 mg/dl (70-99(Fasting)); Potassium 4.3 mmol/L (3.5-5.1); Sodium 135.0 mmol/L (136-145)
--- NOTE | 2025-08-11 12:29 | Vascular Surgery Progress Note ---
Date of Service August 11, 2025 Assessment & Plan (1) Chronic cutaneous venous stasis ulcer: Plan: He has had a long standing history of recurrent bilateral lower extremity DVT, now with chronic venous insufficiency leading to recurrent venous stasis ulcerations, now with open wounds to right lateral and medial malleoli and left medial malleolus. Agree with ID assessment, antibiotics for cellulitis, as well as local wound care. Given that his wounds are in the typical venous distribution, he would benefit also from compression such as from an unna boot or with compression stockings (which he has worn in the past and did benefit from). A wound care referral would be beneficial for him, as the [facility] can measure and fit him for proper fitting thigh high compression stockings, which would not only aid in healing his ulcers, but would also help prevent further ulcerations. He would also benefit from venous reflux testing to evaluate for any superficial venous reflux that could be treated to help with wound healing. This can be done on an outpatient basis, once he is discharged from rehab. (2) Venous insufficiency (chronic) (peripheral): Plan: Secondary to recurrent DVT/chronic DVT Mainstay of treatment would be compression stockings to help alleviate his venous hypertension in his legs, along with leg elevation. (3) Peripheral arterial disease: Plan: Although he does have palpable peripheral pulses on exam, which in and of itself should be enough to heal any skin/soft tissue injury, his waveforms are monophasic on the right, starting at the common femoral artery, and when looking at his CT abd/pelvis, he does have aortic disease in the infrarenal aorta. JAYDE/TBIs reviewed and with toe pressures of >80, he will likely heal his lesions, or surgeries/debridements that are planned. Admission and Anticipated Discharge Date Admission Date: August 07, 2025 Subjective Patient doing well this morning, no complaints. JAYDE/TBI done Monday. He is l ooking forward to being discharged to detention and would like to start wearing compression stockings again. Physical Exam Physical Exam: WDWN, in no distress, sitting on edge of bed eating lunch significant venous stasis changes to both lower extremities, along with scarring bilaterally + right lateral and medial malleolar wou nds + left medial malleolar wound Results & Data Vital Signs (Past 12 Hours) Vital Signs Temp Pulse Resp BP Pulse Ox O2 Del Method 08/11/25 08:20 36.5 C 75 16 115/76 99 Room Air 08/11/25 07:24 88 18 97 Room Air Laboratory Results 08/11/25 08/11/25 08/11/25 11:34 07:45 06:01 WBC 4.59 L RBC 4.06 L Hgb 11.1 L Hct 34.0 L MCV 83.7 MCH 27.3 MCHC 32.6 RDW Std Deviation 50.2 H RDW Coeff of Kip 16.3 H Plt Count 190 MPV 10.4 Sodium 135 L Potassium 4.3 Chloride 100 Carbon Dioxide 29 Anion Gap 6 BUN 33 H Creatinine 1.30 Est Cr Clr Drug Dosing 78.4 eGFR 66.51 BUN/Creatinine Ratio 25.4 H Glucose 180 H POC Glucose 124 H 161 H Calcium 9.2 08/10/25 08/10/25 20:17 16:47 WBC RBC Hgb Hct MCV MCH MCHC RDW Std Deviation RDW Coeff of Kip Plt Count MPV Sodium Potassium Chloride Carbon Dioxide Anion Gap BUN Creatinine Est Cr Clr Drug Dosing eGFR BUN/Creatinine Ratio Glucose POC Glucose 265 H 232 H Calcium Medications Administered Home Medications Medication Instructions Recorded Confirmed Last Taken albuterol sulfate 90 mcg/actuation 1 puff inhalation Q6H PRN 05/09/18 08/07/25 05/12/19 08:00 aerosol inhaler (Ventolin HFA) Shortness Of Breath folic acid 1 mg tablet 1 mg PO QAM 05/09/18 08/07/25 01/11/23 omeprazole 20 mg capsule,delayed 20 mg PO BID 05/09/18 08/07/25 01/11/23 release diphenhydramine HCl 25 mg capsule 25 mg PO Q6H PRN Itching 10/23/19 08/07/25 02/02/23 (Benadryl) furosemide 80 mg tablet 80 mg PO BID17 10/23/19 08/07/25 01/11/23 multivitamin 1 tab PO QAM 06/05/20 08/07/25 01/11/23 buspirone 15 mg tablet 15 mg PO BID 10/02/22 08/07/25 02/02/23 fluoxetine 20 mg capsule 20 mg PO HS 10/02/22 08/07/25 01/11/23 fluticasone 500 mcg-salmeterol 50 1 inh inhalation BID 10/02/22 08/07/25 02/03/23 mcg/dose blistr powdr for inhalation montelukast 10 mg tablet 10 mg PO DAILY 10/02/22 08/07/25 01/11/23 ammonium lactate 5 % lotion 1 applic EXT BID #226 grams 10/08/22 08/07/25 01/11/23 (Lac-Hydrin Five) hydroxyzine HCl 10 mg tablet 10 mg PO Q8H PRN Itching 10/29/22 08/07/25 01/11/23 tiotropium bromide 2.5 2 inh inhalation DAILY 10/29/22 08/07/25 02/03/23 mcg/actuation mist for inhalation (Spiriva Respimat) pregabalin 150 mg capsule 150 mg PO TID 06/04/23 08/07/25 Unknown blood-glucose meter (Accu-Chek #1 ea 06/14/23 08/07/25 Unknown Guide Glucose Meter) apixaban 5 mg tablet (Eliquis) 5 mg PO BID 08/01/25 08/07/25 Unknown atorvastatin 40 mg tablet 40 mg PO DAILY 08/01/25 08/07/25 Unknown losartan 25 mg tablet 25 mg PO DAILY 08/01/25 08/07/25 Unknown oxycodone 10 mg tablet 10 mg PO QID PRN Severe Pain 08/01/25 08/07/25 Unknown (Scale Score 7-10) semaglutide 1 mg/dose (4 mg/3 mL) 1 mg subcut WK 08/01/25 08/07/25 Unknown subcutaneous pen injector (Ozempic) spironolactone 100 mg tablet 100 mg PO DAILY 08/01/25 08/07/25 Unknown levofloxacin 750 mg tablet 750 mg PO DAILY@1100 14 days #14 08/05/25 08/07/25 Unknown tabs minocycline 100 mg capsule 200 mg (2 x 100 mg) PO BID 14 days 08/05/25 08/07/25 Unknown #56 caps Active Medications Generic Name Dose Route Start Last Admin Trade Name Freq PRN Reason Stop Dose Admin Al Hydrox/Mg Hydrox/Simethicone 30 ml 08/07/25 16:27 08/10/25 16:19 Aluminum/Magnesium Susp 30 Ml Udc PO 09/06/25 16:26 30 ml Q6H PRN Administration Dyspepsia Albuterol 3 ml 08/07/25 19:00 08/11/25 07:23 Albut/Ipratrop 3mg/0.5mg Neb 3 Ml Vial NEB 09/06/25 18:59 Not Given Q6RWA [facility] Protocol Apixaban 5 mg 08/07/25 21:00 08/11/25 09:10 Apixaban 5 Mg Tablet PO 09/06/25 20:59 5 mg BID OTILIA Administration Atorvastatin Calcium 40 mg 08/08/25 09:00 08/11/25 09:10 Atorvastatin 40 Mg Tab PO 09/07/25 08:59 40 mg DAILY OTILIA Administration Budesonide 0.5 mg 08/07/25 19:00 08/11/25 07:23 Budesonide 0.5 Mg/2 Ml Vial (Pulmicort) NEB 09/06/25 18:59 0.5 mg BIDR OTILIA Administration Buspirone HCl 15 mg 08/07/25 21:00 08/11/25 09:10 Buspirone 15 Mg Tab PO 09/06/25 20:59 15 mg BID OTILIA Administration Collagenase 1 appln 08/08/25 09:00 08/11/25 09:12 Collagenase Oint 30 Gm Tube EXT 09/07/25 08:59 Not Given DAILY OTILIA Collagenase 1 appln 08/09/25 09:00 08/11/25 09:12 Collagenase Oint 30 Gm Tube EXT 09/08/25 08:59 1 appln DAILY OTILIA Administration Diphenhydramine HCl 25 mg 08/07/25 18:32 08/11/25 09:09 Diphenhydramine 50 Mg/Ml Vial IV 09/06/25 18:31 25 mg Q8H PRN Administration itching Docusate Sodium 100 mg 08/07/25 21:00 08/11/25 09:10 Docusate Sodium 100 Mg Cap PO 09/06/25 20:59 100 mg BID OTILIA Administration Fluoxetine HCl 20 mg 08/07/25 21:00 08/10/25 19:33 Fluoxetine Hcl 20 Mg Cap PO 09/06/25 20:59 20 mg HS OTILIA Administration Folic Acid 1 mg 08/08/25 09:00 08/11/25 09:10 Folic Acid 1 Mg Tab PO 09/07/25 08:59 1 mg QAM OTILIA Administration Formoterol Fumarate 20 mcg 08/07/25 19:00 08/11/25 07:23 Formoterol 20 Mcg/2 Ml Vial NEB 09/06/25 18:59 20 mcg BIDR OTILIA Administration Furosemide 80 mg 08/07/25 17:00 08/11/25 09:10 Furosemide 80 Mg Tab PO 09/06/25 16:59 80 mg BID17 OTILIA Administration Heparin Sodium (Porcine) 5 ml 08/08/25 03:07 08/09/25 19:16 Heparin 100 Unit/Ml 5ml Flush FLUSH 09/07/25 03:06 5 ml PRN PRN Administration Flush Levofloxacin/Dextrose 750 mg in 150 mls @ 100 mls/hr 08/08/25 17:15 08/10/25 18:20 Levaquin/D5w IV 08/15/25 17:14 Infused Q24H OTILIA Infusion Protocol Insulin Aspart 0 units 08/07/25 16:30 08/11/25 12:21 Insulin Aspart Per Unit Charge SC 09/06/25 16:29 4 units ACHS OTILIA Administration Insulin Glargine 13 units 08/10/25 21:00 08/10/25 20:41 Lantus Per Unit Charge SQ 09/09/25 20:59 13 units HS OTILIA Administration Lactic Acid 5 gm 08/07/25 21:00 08/11/25 09:12 Ammonium Lactate 12% Lotion 225 Gm Btl EXT 09/06/25 20:59 5 gm BID OTILIA Administration Lactobacillus Acidophilus 1,250 mg 08/08/25 09:00 08/11/25 09:10 Advanced Probiotic 625 Mg Capsule PO 09/07/25 08:59 1,250 mg DAILY OTILIA Administration Losartan Potassium 25 mg 08/08/25 09:00 08/11/25 09:10 Losartan Potassium 25 Mg Tab PO 09/07/25 08:59 25 mg DAILY OTILIA Administration Magnesium Hydroxide 30 ml 08/07/25 16:27 08/11/25 09:09 Magnesium Hydroxide Susp 30 Ml Udc PO 09/06/25 16:26 30 ml Q6H PRN Administration Constipation Melatonin 6 mg 08/07/25 21:00 08/10/25 19:34 Melatonin 3 Mg Tab PO 09/06/25 20:59 6 mg HS PRN Administration Sleep Miscellaneous 1 each 08/08/25 08:59 08/11/25 09:23 Remove Nicoderm Patch N/A 09/07/25 08:58 1 each DAILY@0859 OTILIA Administration Montelukast Sodium 10 mg 08/08/25 09:00 08/11/25 09:10 Montelukast Sodium 10 Mg Tablet PO 09/07/25 08:59 10 mg DAILY OTILIA Administration Morphine Sulfate 3 mg 08/07/25 16:27 08/11/25 12:22 Morphine Sulfate 4 Mg/Ml 1 Ml Carp\Vial IV 08/21/25 16:26 3 mg Q3H PRN Administration Severe Pain (Scale 7, 8, 9,10) Mupirocin 1 appln 08/07/25 21:00 08/11/25 09:11 Mupirocin 2% Oint 22 Gm Tube NA 09/06/25 20:59 1 appln BID OTILIA Administration Nicotine 1 patch 08/07/25 17:00 08/11/25 09:14 Nicotine 14 Mg/24 Hr Patch TD 09/06/25 16:59 1 patch QAM OTILIA Administration Oxycodone HCl 12.5 mg 08/07/25 16:43 08/11/25 10:54 Oxycodone Hcl Ir 5 Mg Tab (Immediate Release) PO 08/21/25 16:42 12.5 mg Q6H PRN Administration Moderate Pain (Scale 4, 5, 6) Pantoprazole Sodium 40 mg 08/07/25 21:00 08/11/25 09:10 Pantoprazole 40 Mg Tab PO 09/06/25 20:59 40 mg BID OTILIA Administration Protocol Polyethylene Glycol 17 gm 08/07/25 16:27 08/10/25 12:15 Polyethylene (Miralax) 17 Gm Pack PO 09/06/25 16:26 17 gm DAILY PRN Administration Constipation Pregabalin 150 mg 08/07/25 16:45 08/11/25 09:10 Pregabalin 150 Mg Cap PO 09/06/25 16:44 150 mg TID OTILIA Administration Spironolactone 100 mg 08/08/25 09:00 08/11/25 10:54 Spironolactone 100 Mg Tab PO 09/07/25 08:59 100 mg DAILY OTILIA Administration Umeclidinium Eastern 1 puffs 08/09/25 13:45 08/11/25 09:13 Umeclidinium Eastern 62.5mcg/Blister 7 Puffs/Inhaler INH 09/08/25 13:44 1 puffs QAM OTILIA Administration PG Care Time/CCT Total # of Minutes Spent Total Time Spent with Patient: Total time spent is greater than 50% in coordination of care (as documented) at patient's floor/unit and/or counseling patient:
--- NOTE | 2025-08-11 13:24 | Hospitalist Progress Note ---
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 Pt admitted 08/01-08/05 for wound infection. D/C on oral antibiotics. Endorsed worsening pain to R ankle and worsening foul smell. He also c/o cold sweats, nausea and vomiting. He also c/o increased SOB. #Bilateral ankle wounds, R worse than L #MRSA nares positive #Known Venous insufficiency with chronic vte - Recent MRI: no osteomyelitis - Wound culture: serratia marcescens, klebsiella oxytoc and Stenotrophomonas maltophilia - Failed PO abx regimen and represented for worsening pain, purulence in R foot -D/w vascular surgery LEAH; should have ok healing if any procedure is needed Plan -D/w podiatry, no surgical plans this admission -ID consulted for abx guidance-->recommended levaquin -Will treat with IV levaquin for 2 weeks -F/u repeat blod cultures, NGTD -Patient requesting SNF when ready #COPD #Abnormal CT #Cough -Low suspicion for PNA, No O2 requirements. lungs CTA -Continue breathing treatments #T2DM A1c: 6.7 on 06/20/25 Hold home ozempic BG poorly controlled so far due to his diet consisting of candy and potato chips He was advised on the importance of euglycemia with wound healing Plan Continue lantus 12 units nightly SSI BGM ACHS #HTN There was no JOVON this admission Resume home ARB, aldactone and lasix #Cirrhosis History alcoholic cirrhosis Has been abstaining from alcohol on furosemide, spironolactone as OP #HLD on statin at outpt #Chronic DVT continue eliquis #Chronic pain continue chronic oxy, lyrica will increase oxy to liquid 12.5mg during active phase of infection as he is on 10mg as outpt #Anemia -Normocytic -Chronic at baseline -No bleeding -Likely ACD -F/u PCP as OP #Anxiety chronic, stable continue buspar and prozac #Tobacco abuse continue nicotine patch #DVT ppx: Eliquis FULL CODE PCP: Willa Soto Dispo: admitted to medical, consult podiatry and ID I spent a total of 55 minutes coordinating, documenting, and providing care for this patient excluding time spent in the performance of separately billed services. This included personally reviewing all current laboratories and imaging studies, medical reconciliation, outpatient chart review and discussion with specialists Admission and Anticipated Discharge Date Admission Date: August 07, 2025 Subjective seen this Am feeling well. he cut out the candy and chips yesterday. Patient denies F/C, CP, palpitations, SOB, dyspnea, abd pain, N/V/D Physical Exam Physical Exam: Vitals and labs reviewed General: Well appearing, NAD HEENT: EOMI, PERRLA Neck: Supple Cardiac: RRR no rubs gallops or murmurs Lungs: CTA no rhonchi wheezing or rales Abd: S NT ND BS positive : Deffered MSK: Full ROM. Ext: extensive venous stasis changes bilaterally. b/l LE erythema. R medial and lateral malleolus ulcers Skin: Warm, Dry Neuro: AOx3 No focal deficits. Psych: Normal Mood Results & Data Results & Data Vital Signs (Past 12 Hours) Vital Signs Temp Pulse Resp BP Pulse Ox O2 Del Method 08/11/25 08:20 36.5 C 75 16 115/76 99 Room Air 08/11/25 07:24 88 18 97 Room Air Laboratory Results Abnormal lab results 08/10/25 08/10/25 08/11/25 Range/Units 16:47 20:17 06:01 WBC 4.59 L (4.8-10.8) K/ul RBC 4.06 L (4.70-6.10) M/uL Hgb 11.1 L (14.0-18.0) g/dL Hct 34.0 L (42.0-52.0) % RDW Std Deviation 50.2 H (36.4-46.3) fL RDW Coeff of Kip 16.3 H (11.5-14.5) % Sodium 135 L (136-145) mmol/L BUN 33 H (6-23) mg/dl BUN/Creatinine Ratio 25.4 H (10-20) Glucose 180 H (70-99(Fasting)) mg/dl POC Glucose 232 H 265 H (70-99) mg/dl 08/11/25 08/11/25 Range/Units 07:45 11:34 WBC (4.8-10.8) K/ul RBC (4.70-6.10) M/uL Hgb (14.0-18.0) g/dL Hct (42.0-52.0) % RDW Std Deviation (36.4-46.3) fL RDW Coeff of Kip (11.5-14.5) % Sodium (136-145) mmol/L BUN (6-23) mg/dl BUN/Creatinine Ratio (10-20) Glucose (70-99(Fasting)) mg/dl POC Glucose 161 H 124 H (70-99) mg/dl (8) Cirrhosis Hepatic cirrhosis type: alcoholic cirrhosis Ascites presence: unspecified Qualified Code(s): K70.30 - Alcoholic cirrhosis of liver without ascites (9) Type 2 diabetes mellitus Diabetes mellitus turf grower insulin use: unspecified turf grower insulin use status Diabetes mellitus complication status: with other specified complication Qualified Code(s): E11.69 - Type 2 diabetes mellitus with other specified complication (10) Chronic deep vein thrombosis (DVT) Affected thrombotic vein of extremity: unspecified vein of extremity DVT location: lower extremity Laterality: right Qualified Code(s): I82.501 - Chronic embolism and thrombosis of unspecified deep veins of right lower extremity
--- NOTE | 2025-08-11 18:17 | Podiatry Progress Note ---
Date of Service August 11, 2025 Assessment & Plan (1) Peripheral arterial disease: (2) Cellulitis of right lower extremity: (3) Cellulitis of left leg: (4) Chronic ulcer of left ankle with fat layer exposed: (5) Chronic ulcer of right ankle with fat layer exposed: Plan Patient examined and evaluated. - Patient is interested in incision and drainage and/or biopsy surgically. - I did discuss that my fear is simply that sharp debridement will make these wounds worse, as they have failed to improve over 3 years with IV antibiotics and aggressive wound care. - Still, biopsy could reveal any malignant transformation and is warranted/indicated. - We discussed that with this being a relatively minor procedure and him waiting on an inpatient bed, if the bed becomes available sooner than later, he should likely transfer for care and reevaluate the procedure outpatient. - I will work on scheduling the procedure for this tentatively, though again, if he is otherwise stable and has a bed available, we will see him in the office within 1 week and schedule the procedure accordingly. Admission and Anticipated Discharge Date Admission Date: August 07, 2025 Subjective Patient seen at bedside. Denies any new concerns. States 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 Interested in being discharged to SNF rather than home with his recent failures and propensity to return to care with simple oral antibiotics. Otherwise, states he is feeling well. Physical Exam Physical Exam: Lower extremity focused exam: DP/PT pulses nonpalpable. Advanced trophic changes noted to the bilateral lower extremity from mid tibia distally. Skin is thin and is extensively scarred to the anterior leg. There is evidence of venous stasis and peripheral arterial insufficiency. Bilateral lower extremity is warm to the touch with erythema radiating from ulcerations to the right medial and lateral malleolus and left medial malleolus. No deep probing is noted. No significant purulent drainage is appreciated. Scant serous drainage is noted. Pain is significant on palpation and exam of these ulcerations. Wounds themselves are small, measuring Under 1 cm each Though notably now with a 100% granular base. Periwound maceration is appreciated. Constitutional: WD/WN, vitals as above + ill appearing and + obese Eyes: PERRL, conjunctivae normal, anicteric sclerae ENMT: external ear and nose normal, oropharynx normal Mouth: + poor dentition Neck: trachea midline, no thyromegaly normal visual inspection Respiratory: normal respiratory effort; no respiratory distress Cardiovascular: Rate/Rhythm: regular rate and regular rhythm Vessels: + posterior tibial pulses abnormal and + dorsalis pedis pulses abnormal Chest (Breasts): Chest: normal inspection of chest Gastrointestinal (Abdomen): Inspection/Auscultation: abdomen normal to inspection Percussion/Palpation: + abdomen tender and abdomen soft Musculoskeletal: no cyanosis or clubbing, extremities motor strength 5/5 Head/Neck/Chest: normocephalic and head atraumatic Extremities: extremities normal to inspection Skin: + skin tightening, + wound, + skin atrop hy, + erythema, + scar and + nails dystrophic; + abnormal skin elasticity Neurologic: awake; no focal motor deficits Psychiatric: A+Ox3, euthymic affect Results & Data Results & Data Vital Signs (Past 12 Hours) Vital Signs Temp Pulse Resp BP Pulse Ox O2 Del Method 08/11/25 15:36 36.8 C 83 16 115/74 96 Room Air 08/11/25 13:41 82 22 95 Room Air 08/11/25 08:20 36.5 C 75 16 115/76 99 Room Air 08/11/25 07:24 88 18 97 Room Air
[2025-08-12 07:08] LABS: Hematocrit (blood only) 36.2 % (42.0-52.0); Hemoglobin 11.4 g/dL (14.0-18.0); Mean Corpuscular Hemoglobin 26.1 pg (25.0-34.0); Mean Corpuscular Volume 83.0 fL (80.0-100.0); Platelet Count 203 K/uL (130-400); RDW Standard Deviation 49.9 fL (36.4-46.3); Red Blood Count 4.36 M/uL (4.70-6.10); White Blood Count 4.85 K/ul (4.8-10.8)
[2025-08-12 07:28] LABS: Anion Gap 8.0 (3-11); Blood Urea Nitrogen 38.0 mg/dl (6-23); Calcium 9.2 mg/dl (8.6-10.3); Carbon Dioxide 31.0 mmol/L (21-32); Chloride 97.0 mmol/L (98-107); Creatinine Clr Calc Pharmacy 76.0 ml/min; Glucose 166.0 mg/dl (70-99(Fasting)); Potassium 4.0 mmol/L (3.5-5.1); Sodium 136.0 mmol/L (136-145)
--- NOTE | 2025-08-12 12:03 | Hospitalist Progress Note ---
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 Pt admitted 08/01-08/05 for wound infection. D/C on oral antibiotics. Endorsed worsening pain to R ankle and worsening foul smell. He also c/o cold sweats, nausea and vomiting. He also c/o increased SOB. #Bilateral ankle wounds, R worse than L #MRSA nares positive #Known Venous insufficiency with chronic vte - Recent MRI: no osteomyelitis - Wound culture: serratia marcescens, klebsiella oxytoc and Stenotrophomonas maltophilia - Failed PO abx regimen and represented for worsening pain, purulence in R foot -D/w vascular surgery LEAH; should have ok healing if any procedure is needed Plan -D/w podiatry, no surgical plans this admission -If patient is still here on , podiatry will do wound biopsy of lower extremity but this will not prevent him from being discharged -ID consulted for abx guidance-->recommended levaquin -Will treat with IV levaquin for 2 weeks through 08/20 -F/u repeat blod cultures, NGTD -Patient requesting SNF. Medically ready for DC #COPD #Abnormal CT #Cough -Low suspicion for PNA, No O2 requirements. lungs CTA -Continue breathing treatments #T2DM A1c: 6.7 on 06/20/25 Hold home ozempic BG poorly controlled so far due to his diet consisting of candy and potato chips He was advised on the importance of euglycemia with wound healing Plan Increase lantus 15 units nightly Would favor continuing lantus while at SNF to achieve better wound healing through euglycemia SSI BGM ACHS #HTN There was no JOVON this admission Resume home ARB, aldactone and lasix #Cirrhosis History alcoholic cirrhosis Has been abstaining from alcohol on furosemide, spironolactone as OP #HLD on statin at outpt #Chronic DVT continue eliquis #Chronic pain continue chronic oxy, lyrica will increase oxy to liquid 12.5mg during active phase of infection as he is on 10mg as outpt #Anemia -Normocytic -Chronic at baseline -No bleeding -Likely ACD -F/u PCP as OP #Anxiety chronic, stable continue buspar and prozac #Tobacco abuse continue nicotine patch #DVT ppx: Eliquis FULL CODE PCP: Willa Soto Dispo: admitted to medical, consult podiatry and ID I spent a total of 52minutes coordinating, documenting, and providing care for this patient excluding time spent in the performance of separately billed services. This included personally reviewing all current laboratories and imaging studies, medical reconciliation, outpatient chart review and discussion with specialists Admission and Anticipated Discharge Date Admission Date: August 07, 2025 Subjective Feeling well today, he denies any complaints. Patient denies F/C, CP, palpitations, SOB, dyspnea, abd pain, N/V/D Physical Exam Physical Exam: Vitals and labs reviewed General: Well appearing, NAD HEENT: EOMI, PERRLA Neck: Supple Cardiac: RRR no rubs gallops or murmurs Lungs: CTA no rhonchi wheezing or rales Abd: S NT ND BS positive : Deffered MSK: Full ROM. Ext: extensive venous stasis changes bilaterally. b/l LE erythema. R medial and lateral malleolus ulcers Skin: Warm, Dry Neuro: AOx3 No focal deficits. Psych: Normal Mood Results & Data Results & Data Vital Signs (Past 12 Hours) Vital Signs Temp Pulse Resp BP Pulse Ox O2 Del Method 08/12/25 11:59 70 16 96 Room Air 08/12/25 08:21 36.6 C 67 18 111/71 97 Room Air 08/12/25 07:49 Room Air 08/12/25 07:08 70 16 95 Room Air Laboratory Results Abnormal lab results 08/11/25 08/11/25 08/12/25 Range/Units 16:18 20:28 06:30 RBC 4.36 L (4.70-6.10) M/uL Hgb 11.4 L (14.0-18.0) g/dL Hct 36.2 L (42.0-52.0) % MCHC 31.5 L (32.0-36.0) g/dL RDW Std Deviation 49.9 H (36.4-46.3) fL RDW Coeff of Kip 16.4 H (11.5-14.5) % Chloride 97 L (98-107) mmol/L BUN 38 H (6-23) mg/dl BUN/Creatinine Ratio 28.4 H (10-20) Glucose 166 H (70-99(Fasting)) mg/dl POC Glucose 175 H 179 H (70-99) mg/dl 08/12/25 08/12/25 Range/Units 07:52 11:38 RBC (4.70-6.10) M/uL Hgb (14.0-18.0) g/dL Hct (42.0-52.0) % MCHC (32.0-36.0) g/dL RDW Std Deviation (36.4-46.3) fL RDW Coeff of Kip (11.5-14.5) % Chloride (98-107) mmol/L BUN (6-23) mg/dl BUN/Creatinine Ratio (10-20) Glucose (70-99(Fasting)) mg/dl POC Glucose 157 H 122 H (70-99) mg/dl (8) Cirrhosis Hepatic cirrhosis type: alcoholic cirrhosis Ascites presence: unspecified Qualified Code(s): K70.30 - Alcoholic cirrhosis of liver without ascites (9) Type 2 diabetes mellitus 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
[2025-08-12] MEDS: LANTUS PER UNIT CHARGE SQ SCH (20:22)
--- NOTE | 2025-08-12 21:34 | Podiatry Progress Note ---
Date of Service August 12, 2025 Assessment & Plan (1) Peripheral arterial disease: (2) Cellulitis of right lower extremity: (3) Cellulitis of left leg: (4) Chronic ulcer of left ankle with fat layer exposed: (5) Chronic ulcer of right ankle with fat layer exposed: Plan Patient examined and evaluated. - Patient is interested in incision and drainage and/or biopsy surgically. - I did discuss that my fear is simply that sharp debridement will make these wounds worse, as they have failed to improve over 3 years with IV antibiotics and aggressive wound care. - Still, biopsy could reveal any malignant transformation and is warranted/indicated. - This I&D/debridement and biopsy is scheduled for at noon, if he remains inpatient. Patient is amenable to this, still. - Will obtain consent preoperatively. Admission and Anticipated Discharge Date Admission Date: August 07, 2025 Subjective Patient seen at bedside at lunch. Denies new concerns. Feeling well, but curious about his future still. [facility]. Doesn't want to go home. Physical Exam Physical Exam: Lower extremity focused exam: DP/PT pulses nonpalpable. Advanced trophic changes noted to the bilateral lower extremity from mid tibia distally. Skin is thin and is extensively scarred to the anterior leg. There is evidence of venous stasis and peripheral arterial insufficiency. Bilateral lower extremity is warm to the touch with erythema radiating from ulcerations to the right medial and lateral malleolus and left medial malleolus. No deep probing is noted. No significant purulent drainage is appreciated. Scant serous drainage is noted. Pain is significant on palpation and exam of these ulcerations. Wounds themselves are small, measuring Under 1 cm each Though notably now with a 100% granular base. Periwound maceration is appreciated. Constitutional: WD/WN, vitals as above + ill appearing and + obese Eyes: PERRL, conjunctivae normal, anicteric sclerae ENMT: external ear and nose normal, oropharynx normal Mouth: + poor dentition Neck: trachea midline, no thyromegaly normal visual inspection Respiratory: normal respiratory effort; no respiratory distress Cardiovascular: Rate/Rhythm: regular rate and regular rhythm Vessels: + posterior tibial pulses abnormal and + dorsalis pedis pulses abnormal Chest (Breasts): Chest: normal inspection of chest Gastrointestinal (Abdomen): Inspection/Auscultation: abdomen normal to inspection Percussion/Palpation: + abdomen tender and abdomen soft Musculoskeletal: no cyanosis or clubbing, extremities motor strength 5/5 Head/Neck/Chest: normocephalic and head atraumatic Extremities: extremities normal to inspection Skin: + skin tightening, + wound, + skin atrop hy, + erythema, + scar and + nails dystrophic; + abnormal skin elasticity Neurologic: awake; no focal motor deficits Psychiatric: A+Ox3, euthymic affect Results & Data Results & Data Vital Signs (Past 12 Hours) Vital Signs Temp Pulse Resp BP Pulse Ox O2 Del Method 08/12/25 19:58 74 18 96 Room Air 08/12/25 15:05 36.6 C 74 16 115/71 95 Room Air 08/12/25 11:59 70 16 96 Room Air
[2025-08-13 06:54] LABS: Hematocrit (blood only) 35.9 % (42.0-52.0); Hemoglobin 11.6 g/dL (14.0-18.0); Mean Corpuscular Hemoglobin 26.8 pg (25.0-34.0); Mean Corpuscular Volume 82.9 fL (80.0-100.0); Platelet Count 202 K/uL (130-400); RDW Standard Deviation 49.1 fL (36.4-46.3); Red Blood Count 4.33 M/uL (4.70-6.10); White Blood Count 4.59 K/ul (4.8-10.8)
[2025-08-13 07:12] LABS: Anion Gap 8.0 (3-11); Blood Urea Nitrogen 41.0 mg/dl (6-23); Calcium 9.4 mg/dl (8.6-10.3); Carbon Dioxide 30.0 mmol/L (21-32); Chloride 98.0 mmol/L (98-107); Creatinine Clr Calc Pharmacy 72.3 ml/min; Glucose 160.0 mg/dl (70-99(Fasting)); Potassium 4.2 mmol/L (3.5-5.1); Sodium 136.0 mmol/L (136-145)
--- NOTE | 2025-08-13 14:23 | Hospitalist Progress Note ---
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 Pt admitted 08/01-08/05 for wound infection. D/C on oral antibiotics. Endorsed worsening pain to R ankle and worsening foul smell. He also c/o cold sweats, nausea and vomiting. He also c/o increased SOB. #Bilateral ankle wounds, R worse than L #MRSA nares positive #Known Venous insufficiency with chronic vte - Recent MRI: no osteomyelitis - Wound culture: serratia marcescens, klebsiella oxytoc and Stenotrophomonas maltophilia - Failed PO abx regimen and represented for worsening pain, purulence in R foot -D/w vascular surgery LEAH; should have ok healing if any procedure is needed -D/w podiatry, no surgical plans this admission -ID consulted for abx guidance-->recommended levaquin -Will treat with IV levaquin for 2 weeks through 08/20 -F/u repeat blod cultures, NGTD -- will go for bilateral ankle ulcers debridement with biopsy on 08/14/2025 Will likely need to go to rehab following the procedure May need to increase the pain medications following the procedure as well #COPD #Abnormal CT #Cough -Low suspicion for PNA, No O2 requirements. lungs CTA -Continue breathing treatments Denies any shortness of breath or wheezing at rest #T2DM A1c: 6.7 on 06/20/25 Hold home ozempic BG poorly controlled so far due to his diet consisting of candy and potato chips He was advised on the importance of euglycemia with wound healing Increase lantus 15 units nightly Would favor continuing lantus while at SNF to achieve better wound healing through euglycemia SSI BGM ACHS #HTN There was no JOVON this admission Resume home ARB, aldactone and lasix #Cirrhosis History alcoholic cirrhosis Has been abstaining from alcohol on furosemide, spironolactone as OP #HLD on statin at outpt #Chronic DVT continue eliquis #Chronic pain continue chronic oxy, lyrica will increase oxy to liquid 12.5mg during active phase of infection as he is on 10mg as outpt Will review pain medications prior to discharge #Anemia -Normocytic -Chronic at baseline -No bleeding -Likely ACD -F/u PCP as OP #Anxiety chronic, stable continue buspar and prozac #Tobacco abuse continue nicotine patch #DVT ppx: Eliquis FULL CODE PCP: Willa Soto Dispo: admitted to medical, consult podiatry and ID I spent a total of 53 minutes coordinating, documenting, and providing care for this patient . This included personally reviewing all current laboratories and imaging studies, medical reconciliation, outpatient chart review and discussion with specialists Admission and Anticipated Discharge Date Admission Date: August 07, 2025 Subjective 08/13/2025 The patient was seen and examined in medical floor He has been complaining of increasing pain in the ankles Denies any other significant symptoms Review of Systems Review of Systems: all systems reviewed and are unremarkable except as noted below Physical Exam Physical Exam: lying in bed with some distress due to bilateral ankle pain Constitutional: well developed, well nourished, + ill appearing and + obese Eyes: PERRL, conjunctivae normal, anicteric sclerae ENMT: external ear and nose normal, oropharynx normal Neck: trachea midline, no thyromegaly Respiratory: no respiratory distress Auscultation: lungs clear to auscultation bilaterally Cardiovascular: Rate/Rhythm: regular rate and regular rhythm; not tachycardic Heart Sounds: normal S1 and normal S2; no murmur Extremities: + edema ( bilateral edema confined to the ankles with chronic skin changes bilateral) Gastrointestinal (Abdomen): Inspection/Auscultation: normal bowel sounds; a bdomen not distended Percussion/Palpation: abdomen soft; abdomen nontender Musculoskeletal: no acute arthritis involving any of the joint Skin: bilateral ankle swelling with ulcers and will require an I&D Neurologic: normal touch/pain/proprioception and moves all extremities; no focal motor deficits Lymphatic: no cervical or axillary lymphadenopathy Results & Data Results & Data Vital Signs (Past 12 Hours) Vital Signs Temp Pulse Resp BP Pulse Ox O2 Del Method 08/13/25 12:30 80 16 96 Room Air 08/13/25 07:47 67 18 95 Room Air 08/13/25 07:40 36.6 C 106 H 16 108/68 95 Room Air Laboratory Results Short CBC 08/13/25 Range/Units 06:05 WBC 4.59 L (4.8-10.8) K/ul Hgb 11.6 L (14.0-18.0) g/dL Hct 35.9 L (42.0-52.0) % Plt Count 202 (130-400) K/uL BMP 08/13/25 06:05 Sodium 136 Potassium 4.2 Chloride 98 Carbon Dioxide 30 BUN 41 H Creatinine 1.41 H Glucose 160 H Calcium 9.4 Medications Administered Current Inpatient Medications Acetaminophen (Acetaminophen 325 Mg Tab) 650 mg PO Q4H PRN PRN Reason: mild pain 1-3/fever Stop: 09/06/25 16:26 Al Hydrox/Mg Hydrox/Simethicone (Aluminum/Magnesium Susp 30 Ml Udc) 30 ml PO Q6H PRN PRN Reason: Dyspepsia Stop: 09/06/25 16:26 Last Admin: 08/10/25 16:19 Dose: 30 ml Albuterol (Albut/Ipratrop 3mg/0.5mg Neb 3 Ml Vial) 3 ml NEB Q6RWA [facility]; Protocol Stop: 09/06/25 18:59 Last Admin: 08/13/25 12:29 Dose: 3 ml Apixaban (Apixaban 5 Mg Tablet) 5 mg PO BID [facility] Stop: 09/06/25 20:59 Last Admin: 08/13/25 09:25 Dose: 5 mg Atorvastatin Calcium (Atorvastatin 40 Mg Tab) 40 mg PO DAILY [facility] Stop: 09/07/25 08:59 Last Admin: 08/13/25 09:24 Dose: 40 mg Budesonide (Budesonide 0.5 Mg/2 Ml Vial (Pulmicort)) 0.5 mg NEB BIDR [facility] Stop: 09/06/25 18:59 Last Admin: 08/13/25 07:46 Dose: 0.5 mg Buspirone HCl (Buspirone 15 Mg Tab) 15 mg PO BID [facility] Stop: 09/06/25 20:59 Last Admin: 08/13/25 09:24 Dose: 15 mg Collagenase (Collagenase Oint 30 Gm Tube) 1 appln EXT DAILY [facility] Stop: 09/07/25 08:59 Last Admin: 08/13/25 09:27 Dose: 1 appln Collagenase (Collagenase Oint 30 Gm Tube) 1 appln EXT DAILY [facility] Stop: 09/08/25 08:59 Last Admin: 08/13/25 09:27 Dose: 1 appln Dextrose (Dextrose 50% 50 Ml Syringe) 25 - 50 ml IV UD PRN; Protocol PRN Reason: Hypoglycemia Protocol Stop: 09/06/25 16:26 Diphenhydramine HCl (Diphenhydramine 50 Mg/Ml Vial) 25 mg IV Q8H PRN PRN Reason: itching Stop: 09/06/25 18:31 Last Admin: 08/13/25 09:26 Dose: 25 mg Docusate Sodium (Docusate Sodium 100 Mg Cap) 100 mg PO BID [facility] Stop: 09/06/25 20:59 Last Admin: 08/13/25 09:24 Dose: 100 mg Fluoxetine HCl (Fluoxetine Hcl 20 Mg Cap) 20 mg PO HS [facility] Stop: 09/06/25 20:59 Last Admin: 08/12/25 20:35 Dose: 20 mg Folic Acid (Folic Acid 1 Mg Tab) 1 mg PO QAM [facility] Stop: 09/07/25 08:59 Last Admin: 08/13/25 09:25 Dose: 1 mg Formoterol Fumarate (Formoterol 20 Mcg/2 Ml Vial) 20 mcg NEB BIDR [facility] Stop: 09/06/25 18:59 Last Admin: 08/13/25 07:46 Dose: 20 mcg Furosemide (Furosemide 80 Mg Tab) 80 mg PO BID17 [facility] Stop: 09/06/25 16:59 Last Admin: 08/13/25 09:25 Dose: 80 mg Glucagon (Glucagon For Inj 1 Mg Vial) 1 mg SQ UD PRN; Protocol PRN Reason: Hypoglycemia Protocol Stop: 09/06/25 16:26 Glucose (Glucose 40% Gel 15 Gm Tube) 15 - 30 gm PO UD PRN; Protocol PRN Reason: Hypoglycemia Protocol Stop: 09/06/25 16:26 Glucose (Glucose 10 Tab/Tube) 4 - 8 tab PO UD PRN; Protocol PRN Reason: Hypoglycemia Protocol Stop: 09/06/25 16:26 Heparin Sodium (Porcine) (Heparin 100 Unit/Ml 5ml Flush) 5 ml FLUSH PRN PRN PRN Reason: Flush Stop: 09/07/25 03:06 Last Admin: 08/09/25 19:16 Dose: 5 ml Levofloxacin/Dextrose (Levaquin/D5w) 750 mg in 150 mls @ 100 mls/hr IV Q24H [facility]; Protocol Stop: 08/15/25 17:14 Last Infusion: 08/12/25 18:42 Dose: Infused Insulin Aspart (Insulin Aspart Per Unit Charge) 0 units SC ACHS [facility] Stop: 09/06/25 16:29 Last Admin: 08/13/25 12:40 Dose: 6 units Insulin Glargine (Lantus Per Unit Charge) 16 units SQ HS [facility] Stop: 09/11/25 20:59 Last Admin: 08/12/25 20:22 Dose: 16 units Lactic Acid (Ammonium Lactate 12% Lotion 225 Gm Btl) 5 gm EXT BID [facility] Stop: 09/06/25 20:59 Last Admin: 08/13/25 09:24 Dose: 5 gm Lactobacillus Acidophilus (Advanced Probiotic 625 Mg Capsule) 1,250 mg PO DAILY [facility] Stop: 09/07/25 08:59 Last Admin: 08/13/25 09:24 Dose: 1,250 mg Losartan Potassium (Losartan Potassium 25 Mg Tab) 25 mg PO DAILY [facility] Stop: 09/07/25 08:59 Last Admin: 08/13/25 09:25 Dose: 25 mg Magnesium Hydroxide (Magnesium Hydroxide Susp 30 Ml Udc) 30 ml PO Q6H PRN PRN Reason: Constipation Stop: 09/06/25 16:26 Last Admin: 08/12/25 20:36 Dose: 30 ml Melatonin (Melatonin 3 Mg Tab) 6 mg PO HS PRN PRN Reason: Sleep Stop: 09/06/25 20:59 Last Admin: 08/12/25 20:35 Dose: 6 mg Miscellaneous (Carbohydrates For Hypoglycemia ) 15 - 30 gm PO UD PRN PRN Reason: Hypoglycemia Protocol Stop: 09/06/25 16:26 Miscellaneous (Remove Nicoderm Patch) 1 each N/A DAILY@0859 [facility] Stop: 09/07/25 08:58 Last Admin: 08/13/25 09:23 Dose: 1 each Montelukast Sodium (Montelukast Sodium 10 Mg Tablet) 10 mg PO DAILY [facility] Stop: 09/07/25 08:59 Last Admin: 08/13/25 09:25 Dose: 10 mg Morphine Sulfate (Morphine Sulfate 4 Mg/Ml 1 Ml Carp\Vial) 3 mg IV Q3H PRN PRN Reason: Severe Pain (Scale 7, 8, 9,10) Stop: 08/21/25 16:26 Last Admin: 08/13/25 12:39 Dose: 3 mg Mupirocin (Mupirocin 2% Oint 22 Gm Tube) 1 appln NA BID [facility] Stop: 09/06/25 20:59 Last Admin: 08/13/25 09:25 Dose: 1 appln Nicotine (Nicotine 14 Mg/24 Hr Patch) 1 patch TD QAM [facility] Stop: 09/06/25 16:59 Last Admin: 08/13/25 09:24 Dose: 1 patch Ondansetron HCl (Ondansetron Inj 2 Mg/Ml 2 Ml Vial) 4 mg IV Q6H PRN PRN Reason: Nausea Stop: 09/06/25 16:26 Oxycodone HCl (Oxycodone Hcl Ir 5 Mg Tab (Immediate Release)) 12.5 mg PO Q6H PRN PRN Reason: Moderate Pain (Scale 4, 5, 6) Stop: 08/21/25 16:42 Last Admin: 08/13/25 14:09 Dose: 12.5 mg Pantoprazole Sodium (Pantoprazole 40 Mg Tab) 40 mg PO BID [facility]; Protocol Stop: 09/06/25 20:59 Last Admin: 08/13/25 09:24 Dose: 40 mg Polyethylene Glycol (Polyethylene (Miralax) 17 Gm Pack) 17 gm PO DAILY PRN PRN Reason: Constipation Stop: 09/06/25 16:26 Last Admin: 08/13/25 12:39 Dose: 17 gm Pregabalin (Pregabalin 150 Mg Cap) 150 mg PO TID [facility] Stop: 09/06/25 16:44 Last Admin: 08/13/25 14:10 Dose: 150 mg Spironolactone (Spironolactone 100 Mg Tab) 100 mg PO DAILY [facility] Stop: 09/07/25 08:59 Last Admin: 08/13/25 09:24 Dose: 100 mg Umeclidinium [place] (Umeclidinium [place] 62.5mcg/Blister 7 Puffs/Inhaler) 1 puffs INH QAM [facility] Stop: 09/08/25 13:44 Last Admin: 08/13/25 09:27 Dose: 1 puffs (8) Cirrhosis Hepatic cirrhosis type: alcoholic cirrhosis Ascites presence: unspecified Qualified Code(s): K70.30 - Alcoholic cirrhosis of liver without ascites (9) Type 2 diabetes mellitus Diabetes mellitus superintendent terminal insulin use: unspecified superintendent terminal insulin use status Diabetes mellitus complication status: with other specified complication Qualified Code(s): E11.69 - Type 2 diabetes mellitus with other specified complication (10) Chronic deep vein thrombosis (DVT) Affected thrombotic vein of extremity: unspecified vein of extremity DVT location: lower extremity Laterality: right Qualified Code(s): I82.501 - Chronic embolism and thrombosis of unspecified deep veins of right lower extremity
--- NOTE | 2025-08-13 19:08 | Podiatry Progress Note ---
Date of Service August 13, 2025 Assessment & Plan (1) Peripheral arterial disease: (2) Cellulitis of right lower extremity: (3) Cellulitis of left leg: (4) Chronic ulcer of left ankle with fat layer exposed: (5) Chronic ulcer of right ankle with fat layer exposed: Plan Patient examined and evaluated. - Patient is interested in incision and drainage and/or biopsy surgically. - Sharp debridement still may make these wounds worse, though vascular believes he has the capability to heal. - Biopsy could reveal any malignant transformation and is warranted/indicated. - I&D/debridement and biopsy is scheduled for at noon - Consent obtained this evening. Will be on chart. Admission and Anticipated Discharge Date Admission Date: August 07, 2025 Subjective Seen at bedside. States he is still waiting on a bed at a rehab facility. Eager for debridement tomorrow and whatever results they show. Physical Exam Physical Exam: Lower extremity focused exam: DP/PT pulses nonpalpable. Advanced trophic changes noted to the bilateral lower extremity from mid tibia distally. Skin is thin and is extensively scarred to the anterior leg. There is evidence of venous stasis and peripheral arterial insufficiency. Bilateral lower extremity is warm to the touch with erythema radiating from ulcerations to the right medial and lateral malleolus and left medial malleolus. No deep probing is noted. No significant purulent drainage is appreciated. Scant serous drainage is noted. Pain is significant on palpation and exam of these ulcerations. Wounds themselves are small, measuring Under 1 cm each Though notably now with a 100% granular base. Periwound maceration is appreciated. Constitutional: WD/WN, vitals as above + ill appearing and + obese Eyes: PERRL, conjunctivae normal, anicteric sclerae ENMT: external ear and nose normal, oropharynx normal Mouth: + poor dentition Neck: trachea midline, no thyromegaly normal visual inspection Respiratory: normal respiratory effort; no respiratory distress Cardiovascular: Rate/Rhythm: regular rate and regular rhythm Vessels: + posterior tibial pulses abnormal and + dorsalis pedis pulses abnormal Chest (Breasts): Chest: normal inspection of chest Gastrointestinal (Abdomen): Inspection/Auscultation: abdomen normal to inspection Percussion/Palpation: + abdomen tender and abdomen soft Musculoskeletal: no cyanosis or clubbing, extremities motor strength 5/5 Head/Neck/Chest: normocephalic and head atraumatic Extremities: extremities normal to inspection Skin: + skin tightening, + wound, + skin atrop hy, + erythema, + scar and + nails dystrophic; + abnormal skin elasticity Neurologic: awake; no focal motor deficits Psychiatric: A+Ox3, euthymic affect Results & Data Results & Data Vital Signs (Past 12 Hours) Vital Signs Temp Pulse Resp BP Pulse Ox O2 Del Method 08/13/25 15:03 36.8 C 79 16 105/62 98 Room Air 08/13/25 12:30 80 16 96 Room Air 08/13/25 07:47 67 18 95 Room Air 08/13/25 07:40 36.6 C 106 H 16 108/68 95 Room Air
[2025-08-14] MEDS ORDERED: Nursing to Pharmacy Communication SCH ×2 (02:00→16:15)
[2025-08-14] MEDS: INSULIN ASPART PER UNIT CHARGE SC SCH ×2 (06:14→17:06)
[2025-08-14] MEDS ORDERED: HYDROmorphone INJ 1 MG/ML SYRINGE IV PRN (11:15)
[2025-08-14] MEDS ORDERED: PROMETHAZINE HCL 6.25 MG in SODIUM CHLORIDE 0.9% 50 ML IV PRN (11:15)
[2025-08-14] MEDS ORDERED: ONDANSETRON INJ 2 MG/ML 2 ML VIAL IV PRN (11:15)
[2025-08-14] MEDS ORDERED: ATROPINE SULFATE 0.1 MG/ML 10ML SYR IV PRN (11:15)
--- NOTE | 2025-08-14 11:18 | Anesthesiology Consultation ---
Date of Service August 14, 2025 Assessment & Plan (1) Encounter for pre-operative examination: Chart Review Chart Review: Acceptable Risk for Surgery and Patient NOT seen in Pre Admission Testing Consults Requested none History Surgery Operation Date: 08/14/25 12:15 Proposed Procedures p Bilateral Ankle Ulcers Debridement with Biopsy - [place], LEVI Height/Weight Height: 5 ft 9 in Weight: 100 kg Allergies Allergy/AdvReac Type Severity Reaction Status Date / Time peas Allergy Severe Anaphylaxis Verified 06/19/23 10:28 tuna oil Allergy Severe Anaphylaxis Verified 06/19/23 10:28 to "tuna" sulfamethoxazole Allergy Intermediate hives Verified 06/19/23 10:28 trimethoprim Allergy Intermediate hives Verified 06/19/23 10:28 Medications Home Medications Medication Instructions Recorded Confirmed Last Taken albuterol sulfate 90 mcg/actuation 1 puff inhalation Q6H PRN 05/09/18 08/07/25 05/12/19 08:00 aerosol inhaler (Ventolin HFA) Shortness Of Breath folic acid 1 mg tablet 1 mg PO QAM 05/09/18 08/07/25 01/11/23 omeprazole 20 mg capsule,delayed 20 mg PO BID 05/09/18 08/07/25 01/11/23 release diphenhydramine HCl 25 mg capsule 25 mg PO Q6H PRN Itching 10/23/19 08/07/25 02/02/23 (Benadryl) furosemide 80 mg tablet 80 mg PO BID17 10/23/19 08/07/25 01/11/23 multivitamin 1 tab PO QAM 06/05/20 08/07/25 01/11/23 buspirone 15 mg tablet 15 mg PO BID 10/02/22 08/07/25 02/02/23 fluoxetine 20 mg capsule 20 mg PO HS 10/02/22 08/07/25 01/11/23 fluticasone 500 mcg-salmeterol 50 1 inh inhalation BID 10/02/22 08/07/25 02/03/23 mcg/dose blistr powdr for inhalation montelukast 10 mg tablet 10 mg PO DAILY 10/02/22 08/07/25 01/11/23 ammonium lactate 5 % lotion 1 applic EXT BID #226 grams 10/08/22 08/07/25 01/11/23 (Lac-Hydrin Five) hydroxyzine HCl 10 mg tablet 10 mg PO Q8H PRN Itching 10/29/22 08/07/25 01/11/23 tiotropium bromide 2.5 2 inh inhalation DAILY 10/29/22 08/07/25 02/03/23 mcg/actuation mist for inhalation (Spiriva Respimat) pregabalin 150 mg capsule 150 mg PO TID 06/04/23 08/07/25 Unknown blood-glucose meter (Accu-Chek #1 ea 06/14/23 08/07/25 Unknown Guide Glucose Meter) apixaban 5 mg tablet (Eliquis) 5 mg PO BID 08/01/25 08/07/25 Unknown atorvastatin 40 mg tablet 40 mg PO DAILY 08/01/25 08/07/25 Unknown losartan 25 mg tablet 25 mg PO DAILY 08/01/25 08/07/25 Unknown oxycodone 10 mg tablet 10 mg PO QID PRN Severe Pain 08/01/25 08/07/25 Unknown (Scale Score 7-10) semaglutide 1 mg/dose (4 mg/3 mL) 1 mg subcut WK 08/01/25 08/07/25 Unknown subcutaneous pen injector (Ozempic) spironolactone 100 mg tablet 100 mg PO DAILY 08/01/25 08/07/25 Unknown levofloxacin 750 mg tablet 750 mg PO DAILY@1100 14 days #14 08/05/25 08/07/25 Unknown tabs minocycline 100 mg capsule 200 mg (2 x 100 mg) PO BID 14 days 08/05/25 08/07/25 Unknown #56 caps Active Medications Generic Name Dose Route Start Last Admin Trade Name Freq PRN Reason Stop Dose Admin Al Hydrox/Mg Hydrox/Simethicone 30 ml 08/07/25 16:27 08/10/25 16:19 Aluminum/Magnesium Susp 30 Ml Udc PO 09/06/25 16:26 30 ml Q6H PRN Administration Dyspepsia Albuterol 3 ml 08/07/25 19:00 08/13/25 19:26 Albut/Ipratrop 3mg/0.5mg Neb 3 Ml Vial NEB 09/06/25 18:59 Not Given Q6RWA OTILIA Protocol Apixaban 5 mg 08/07/25 21:00 08/14/25 07:15 Apixaban 5 Mg Tablet PO 09/06/25 20:59 Not Given BID OTILIA Atorvastatin Calcium 40 mg 08/08/25 09:00 08/14/25 08:32 Atorvastatin 40 Mg Tab PO 09/07/25 08:59 40 mg DAILY OTILIA Administration Budesonide 0.5 mg 08/07/25 19:00 08/13/25 19:26 Budesonide 0.5 Mg/2 Ml Vial (Pulmicort) NEB 09/06/25 18:59 0.5 mg BIDR OTILIA Administration Buspirone HCl 15 mg 08/07/25 21:00 08/14/25 08:32 Buspirone 15 Mg Tab PO 09/06/25 20:59 15 mg BID OTILIA Administration Collagenase 1 appln 08/08/25 09:00 08/14/25 08:36 Collagenase Oint 30 Gm Tube EXT 09/07/25 08:59 Not Given DAILY OTILIA Collagenase 1 appln 08/09/25 09:00 08/14/25 08:36 Collagenase Oint 30 Gm Tube EXT 09/08/25 08:59 Not Given DAILY [facility] Diphenhydramine HCl 25 mg 08/07/25 18:32 08/14/25 08:32 Diphenhydramine 50 Mg/Ml Vial IV 09/06/25 18:31 25 mg Q8H PRN Administration itching Docusate Sodium 100 mg 08/07/25 21:00 08/14/25 08:32 Docusate Sodium 100 Mg Cap PO 09/06/25 20:59 100 mg BID OTILIA Administration Fluoxetine HCl 20 mg 08/07/25 21:00 08/13/25 20:20 Fluoxetine Hcl 20 Mg Cap PO 09/06/25 20:59 20 mg HS OTILIA Administration Folic Acid 1 mg 08/08/25 09:00 08/14/25 08:32 Folic Acid 1 Mg Tab PO 09/07/25 08:59 1 mg QAM OTILIA Administration Formoterol Fumarate 20 mcg 08/07/25 19:00 08/13/25 19:26 Formoterol 20 Mcg/2 Ml Vial NEB 09/06/25 18:59 20 mcg BIDR OTILIA Administration Furosemide 80 mg 08/07/25 17:00 08/14/25 08:54 Furosemide 80 Mg Tab PO 09/06/25 16:59 Not Given BID17 [facility] Heparin Sodium (Porcine) 5 ml 08/08/25 03:07 08/09/25 19:16 Heparin 100 Unit/Ml 5ml Flush FLUSH 09/07/25 03:06 5 ml PRN PRN Administration Flush Levofloxacin/Dextrose 750 mg in 150 mls @ 100 mls/hr 08/08/25 17:15 08/13/25 19:12 Levaquin/D5w IV 08/15/25 17:14 Infused Q24H OTILIA Infusion Protocol Insulin Aspart 0 units 08/14/25 06:00 08/14/25 06:14 Insulin Aspart Per Unit Charge SC 09/13/25 05:59 2 units Q6 OTILIA Administration Insulin Glargine 16 units 08/12/25 21:00 08/13/25 20:17 Lantus Per Unit Charge SQ 09/11/25 20:59 16 units HS OTILIA Administration Lactic Acid 5 gm 08/07/25 21:00 08/14/25 08:34 Ammonium Lactate 12% Lotion 225 Gm Btl EXT 09/06/25 20:59 5 gm BID OTILIA Administration Lactobacillus Acidophilus 1,250 mg 08/08/25 09:00 08/14/25 08:34 Advanced Probiotic 625 Mg Capsule PO 09/07/25 08:59 1,250 mg DAILY OTILIA Administration Losartan Potassium 25 mg 08/08/25 09:00 08/14/25 08:32 Losartan Potassium 25 Mg Tab PO 09/07/25 08:59 25 mg DAILY OTILIA Administration Magnesium Hydroxide 30 ml 08/07/25 16:27 08/13/25 20:22 Magnesium Hydroxide Susp 30 Ml Udc PO 09/06/25 16:26 30 ml Q6H PRN Administration Constipation Melatonin 6 mg 08/07/25 21:00 08/12/25 20:35 Melatonin 3 Mg Tab PO 09/06/25 20:59 6 mg HS PRN Administration Sleep Miscellaneous 1 each 08/08/25 08:59 08/14/25 08:34 Remove Nicoderm Patch N/A 09/07/25 08:58 1 each DAILY@0859 OTILIA Administration Montelukast Sodium 10 mg 08/08/25 09:00 08/14/25 08:32 Montelukast Sodium 10 Mg Tablet PO 09/07/25 08:59 10 mg DAILY OTILIA Administration Morphine Sulfate 3 mg 08/07/25 16:27 08/14/25 08:33 Morphine Sulfate 4 Mg/Ml 1 Ml Carp\\Vial IV 08/21/25 16:26 3 mg Q3H PRN Administration Severe Pain (Scale 7, 8, 9,10) Mupirocin 1 appln 08/07/25 21:00 08/14/25 08:36 Mupirocin 2% Oint 22 Gm Tube NA 09/06/25 20:59 Not Given BID OTILIA Nicotine 1 patch 08/07/25 17:00 08/14/25 08:35 Nicotine 14 Mg/24 Hr Patch TD 09/06/25 16:59 1 patch QAM OTILIA Administration Oxycodone HCl 12.5 mg 08/07/25 16:43 08/14/25 10:56 Oxycodone Hcl Ir 5 Mg Tab (Immediate Release) PO 08/21/25 16:42 12.5 mg Q6H PRN Administration Moderate Pain (Scale 4, 5, 6) Pantoprazole Sodium 40 mg 08/07/25 21:00 08/14/25 08:32 Pantoprazole 40 Mg Tab PO 09/06/25 20:59 40 mg BID OTILIA Administration Protocol Polyethylene Glycol 17 gm 08/07/25 16:27 08/13/25 12:39 Polyethylene (Miralax) 17 Gm Pack PO 09/06/25 16:26 17 gm DAILY PRN Administration Constipation Pregabalin 150 mg 08/07/25 16:45 08/14/25 08:32 Pregabalin 150 Mg Cap PO 09/06/25 16:44 150 mg TID OTILIA Administration Spironolactone 100 mg 08/08/25 09:00 08/14/25 08:54 Spironolactone 100 Mg Tab PO 09/07/25 08:59 Not Given DAILY OTILIA Umeclidinium [place] 1 puffs 08/09/25 13:45 08/14/25 08:37 Umeclidinium [place] 62.5mcg/Blister 7 Puffs/Inhaler INH 09/08/25 13:44 Not Given QAM OTILIA Past Medical History Medical History (Updated 08/14/25 @ 11:18 by Jose Maria Carmona MD) Encounter for pre-operative examination Cirrhosis Diabetes mellitus, type 2 Pulmonary embolism 13 YEARS AGO ? DETAILS Blood clotting disorder ? NAME Hyperlipidemia Asthma USED RESCUE INHALER TODAY Anxiety and depression Chronic narcotic use HTN (hypertension) GERD (gastroesophageal reflux disease) Chronic deep vein thrombosis (DVT) 2018 (HOSPITALIZED AT [facility], [place]) Tobacco abuse Cellulitis BILAT LEGS (WRAPS LEGS/DRY CLOTH) CURRENTLY HAS SOME OPEN WOUNDS>GOES TO WOUND CLIN[facility] Past Family History Family History Father ETOH abuse Cirrhosis Mother Hypercoagulable state Prothrombin Factor II Mutation, 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, boderline hyperhomocystemia Past Surgical History Surgical History History of anesthesia reaction WITH A-PORT INSERTION, WOKE UP IN MIDDLE OF PROCEDURE History of vascular access device APORT IN RT CHEST (IN PLACE) [place] teeth removed Social History Smoking Status: Current some day smoker tobacco type: cigarettes Smoking cigarettes per day: 1/2 pack Do You Dip or Chew Tobacco: No Hx Alcohol Use: Yes Alcohol type: beer alcohol intake frequency: holidays/special occasions only Hx Substance Use: No substance use type: does not use Physical Exam Vital Signs Last Vital Signs Temp 36.7 C 08/14/25 08:19 Pulse 74 08/14/25 08:19 Resp 18 08/14/25 08:19 BP 114/73 08/14/25 08:19 Pulse Ox 95 08/14/25 08:19 O2 Del Method Room Air 08/14/25 08:19 Testing Laboratory Results 08/13/25 06:05 08/13/25 06:05 Urine Color Yellow 08/07/25 14:43 Urine Appearance Clear (Clear) 08/07/25 14:43 Urine pH 7.5 (4.5-7.5) 08/07/25 14:43 Ur Specific [place] 1.033 (1.000-1.030) H 08/07/25 14:43 Urine Protein 1+ (Negative) H 08/07/25 14:43 Urine Glucose (UA) 1+ (Negative) H 08/07/25 14:43 Urine Ketones Negative (Negative) 08/07/25 14:43 Urine Nitrite Negative (Negative) 08/07/25 14:43 Ur Leukocyte Esterase Negative (Negative) 08/07/25 14:43 Urine WBC (Auto) 0-5 /hpf (0-5) 08/07/25 14:43 Urine RBC (Auto) 0-2 /hpf (0-2) 08/07/25 14:43 U Hyaline Cast (Auto) 0-2 /lpf (0-2) 08/07/25 14:43 U Epithel Cells (Auto) 0-2 /hpf (0-2) 08/07/25 14:43 Urine Bacteria (Auto) None Seen (None Seen) 08/07/25 14:43 08/07/25 10:28 Aerobic Blood Culture - Final Blood No growth in Aerobic bottle after 5 days. Anaerobic Blood Culture - Final 08/07/25 10:14 Aerobic Blood Culture - Final Blood No growth in Aerobic bottle after 5 days. Anaerobic Blood Culture - Final No growth in Anaerobic bottle after 5 days. 08/14/25 06:10 POC Glucose 193 H Electrocardiogram Date: 08/07/25 DICTATED BY: Richy Woods MD Test Reason : Blood Pressure : */* mmHG Vent. Rate : 104 BPM Atrial Rate : 104 BPM P-R Int : 154 ms QRS Dur : 86 ms QT Int : 336 ms P-R-T Axes : 68 -2 52 degrees QTcB Int : 441 ms Sinus tachycardia Possible Inferior infarct , age undetermined Abnormal ECG When compared with ECG of 01-Aug-2025 10:05, Borderline criteria for Inferior infarct are now Present Confirmed by Richy Woods ([id number]) on 08/07/2025 11:58:00 AM Chest X-Ray Date: 08/07/25 XR chest 1V portable HISTORY: 50 years-old Male Sepsis COMPARISON: 525 TECHNIQUE: AP view of the chest FINDINGS: Cardiac silhouette is upper limits of normal in size. Right IJ [id number] catheter is unchanged. Pulmonary vascular congestion with interstitial coarsening. No pneumothorax or large pleural effusion. Mild hazy left basilar opacities are new from prior. Subacute to chronic posterior left rib fractures appear new from prior. Degenerative changes of the shoulders and spine. IMPRESSION: 1. Cardiomegaly with pulmonary vascular congestion. 2. Mild hazy left basilar opacities may represent atelectasis versus pneumonitis.
[2025-08-14] MEDS ORDERED: ONDANSETRON INJ 2 MG/ML 2 ML VIAL ONE (11:50)
[2025-08-14] MEDS ORDERED: PROPOFOL IV EMULSION 10 MG/ML 20 ML VIAL IV ONE ×3 (11:50→13:16)
[2025-08-14] MEDS ORDERED: MIDAZOLAM HCL 1 MG/ML 2ML VIAL ONE (11:51)
[2025-08-14] MEDS: LACTATED RINGER'S 1,000 ML IV SCH (11:56)
--- NOTE | 2025-08-14 12:14 | History & Physical Bridge Note ---
Date of Service August 14, 2025 History & Physical Bridge Note I have examined the patient, reviewed the History & Physical and in the interval since the performance of the History & Physical I have noted the following changes of clinical significance: no changes noted. All questions answered. Consent reviewed.
--- NOTE | 2025-08-14 12:17 | Hospitalist Progress Note ---
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 Pt admitted 08/01-08/05 for wound infection. D/C on oral antibiotics. Endorsed worsening pain to R ankle and worsening foul smell. He also c/o cold sweats, nausea and vomiting. He also c/o increased SOB. #Bilateral ankle wounds, R worse than L #MRSA nares positive #Known Venous insufficiency with chronic vte - Recent MRI: no osteomyelitis - Wound culture: serratia marcescens, klebsiella oxytoc and Stenotrophomonas maltophilia - Failed PO abx regimen and represented for worsening pain, purulence in R foot -D/w vascular surgery LEAH; should have ok healing if any procedure is needed -D/w podiatry, no surgical plans this admission -ID consulted for abx guidance-->recommended levaquin -Will treat with IV levaquin for 2 weeks through 08/20 -F/u repeat blod cultures, NGTD -- will go for bilateral ankle ulcers debridement with biopsy on 08/14/2025 Will likely need to go to rehab following the procedure Will increase oxy to 15mg for interim post op #COPD #Abnormal CT #Cough -Low suspicion for PNA, No O2 requirements. lungs CTA -Continue breathing treatments Denies any shortness of breath or wheezing at rest #T2DM A1c: 6.7 on 06/20/25 Hold home ozempic BG poorly controlled so far due to his diet consisting of candy and potato chips He was advised on the importance of euglycemia with wound healing Increase lantus 15 units nightly Would favor continuing lantus while at SNF to achieve better wound healing through euglycemia SSI BGM ACHS #HTN There was no JOVON this admission Resume home ARB, aldactone and lasix #Cirrhosis History alcoholic cirrhosis Has been abstaining from alcohol on furosemide, spironolactone as OP #HLD on statin at outpt #Chronic DVT continue eliquis #Chronic pain continue chronic oxy, lyrica will increase oxy to liquid 15mg during periop phase as he is on 10mg as outpt Will review pain medications prior to discharge #Anemia -Normocytic -Chronic at baseline -No bleeding -Likely ACD -F/u PCP as OP #Anxiety chronic, stable continue buspar and prozac #Tobacco abuse continue nicotine patch #DVT ppx: Eliquis FULL CODE PCP: Willa Soto Dispo: admitted to medical, consult podiatry and ID Pt seen and examined in collaboration with Dr. Wilkins, please see addendum I spent a total of 45 minutes coordinating, documenting, and providing care for this patient . This included personally reviewing all current laboratories and imaging studies, medical reconciliation, outpatient chart review and discussion with specialists Admission and Anticipated Discharge Date Admission Date: August 07, 2025 Supervising Physician Co-Signing Physician Notes 08/14/2025 The patient was seen and examined in medical floor He will have I&D and also biopsy from his ankle by the wire basket maker today Denies any other significant symptoms except pain in the ankles On examination Lying on bed without any acute distress Remains hemodynamically stable and is afebrile Chest was clear to auscultation bilaterally HeartS1-S2 regular Abdomenbenign Extremitiesbilateral swelling of the ankles with ankle ulcers/wound His labs, medications and imaging studies reviewed He will have bilateral ankle ulcers debridement with biopsy this afternoon His other significant medical conditions remained stable as above Agree with assessment plan as outlined above by Yanira Sims PA-C and take the full responsibility of care in the hospital Total time taken to see the patient, examining him, reviewing the chart and medications, and plan for care was [address] Linda Wilkins Subjective Pt seen in room 362-1. F/U b/l ankle wounds. Complains of worsening pain to R ankle wound. Asking for increased pain meds. Deines f/c/s, chest pain, sob, n/v. Good appetite. Feels breathing tx are helping wheezing. Plan for OR intervention today of wounds for biopsy and I and D. Review of Systems Review of Systems: All systems reviewed & are unremarkable except as noted in HPI & below Physical Exam Physical Exam: Gen: WD/WN, NAD, nontoxic appearing, appears in pain, A&O x3 HEENT: Normocephalic, atraumatic, conjunctivae moist, sclerae anicteric, mucous membranes moist. Lung: Clear to Auscultation bilaterally, minimal wheezing throughout no rales/rhonchi Heart: Regular rate, regular rhythm, no murmurs, rubs, or gallops Abdomen: Soft, ND, NT, no rebound/guarding +BS x 4 Extremities: b/l hyperkeratotic venous stasis changes with ulceration to R medial and lateral malleolar area and ulcer to medial L malleolar area, no surrounding erythema or drainage, wound bed is not necrotic. Dressings are CDI today. Skin: Warm, no rash, negative turgor. Results & Data Results & Data Vital Signs (Past 12 Hours) Vital Signs Temp Pulse Resp BP Pulse Ox O2 Del Method 08/14/25 11:41 36.9 C 77 20 122/71 97 Room Air 08/14/25 08:19 36.7 C 74 18 114/73 95 Room Air Medications Administered Current Inpatient Medications Acetaminophen (Acetaminophen 325 Mg Tab) 650 mg PO Q4H PRN PRN Reason: mild pain 1-3/fever Stop: 09/06/25 16:26 Al Hydrox/Mg Hydrox/Simethicone (Aluminum/Magnesium Susp 30 Ml Udc) 30 ml PO Q6H PRN PRN Reason: Dyspepsia Stop: 09/06/25 16:26 Last Admin: 08/10/25 16:19 Dose: 30 ml Albuterol (Albut/Ipratrop 3mg/0.5mg Neb 3 Ml Vial) 3 ml NEB Q6RWA [facility]; Protocol Stop: 09/06/25 18:59 Last Admin: 08/14/25 12:20 Dose: Not Given Apixaban (Apixaban 5 Mg Tablet) 5 mg PO BID [facility] Stop: 09/06/25 20:59 Last Admin: 08/14/25 07:15 Dose: Not Given Atorvastatin Calcium (Atorvastatin 40 Mg Tab) 40 mg PO DAILY [facility] Stop: 09/07/25 08:59 Last Admin: 08/14/25 08:32 Dose: 40 mg Atropine Sulfate (Atropine Sulfate 0.1 Mg/Ml 10ml Syr) 0.5 mg IV Q1M PRN PRN Reason: PACU Use-HR<40 &/or Bradycardi Stop: 08/14/25 19:15 Budesonide (Budesonide 0.5 Mg/2 Ml Vial (Pulmicort)) 0.5 mg NEB BIDR [facility] Stop: 09/06/25 18:59 Last Admin: 08/14/25 12:20 Dose: Not Given Buspirone HCl (Buspirone 15 Mg Tab) 15 mg PO BID [facility] Stop: 09/06/25 20:59 Last Admin: 08/14/25 08:32 Dose: 15 mg Collagenase (Collagenase Oint 30 Gm Tube) 1 appln EXT DAILY [facility] Stop: 09/07/25 08:59 Last Admin: 08/14/25 08:36 Dose: Not Given Collagenase (Collagenase Oint 30 Gm Tube) 1 appln EXT DAILY [facility] Stop: 09/08/25 08:59 Last Admin: 08/14/25 08:36 Dose: Not Given Dextrose (Dextrose 50% 50 Ml Syringe) 25 - 50 ml IV UD PRN; Protocol PRN Reason: Hypoglycemia Protocol Stop: 09/06/25 16:26 Diphenhydramine HCl (Diphenhydramine 50 Mg/Ml Vial) 25 mg IV Q8H PRN PRN Reason: itching Stop: 09/06/25 18:31 Last Admin: 08/14/25 08:32 Dose: 25 mg Docusate Sodium (Docusate Sodium 100 Mg Cap) 100 mg PO BID [facility] Stop: 09/06/25 20:59 Last Admin: 08/14/25 08:32 Dose: 100 mg Ephedrine Sulfate (Ephedrine Sulfate 50 Mg/Ml Amp) 5 mg IV Q5M PRN PRN Reason: PACU Use Only-SBP<90 Stop: 08/14/25 19:15 Fentanyl Citrate (Fentanyl Citrate Pf 100 Mcg/2 Ml Vial) 25 mcg IV Q5M PRN PRN Reason: PACU Use Only-Pain Stop: 08/14/25 19:15 Fluoxetine HCl (Fluoxetine Hcl 20 Mg Cap) 20 mg PO HS [facility] Stop: 09/06/25 20:59 Last Admin: 08/13/25 20:20 Dose: 20 mg Folic Acid (Folic Acid 1 Mg Tab) 1 mg PO QAM [facility] Stop: 09/07/25 08:59 Last Admin: 08/14/25 08:32 Dose: 1 mg Formoterol Fumarate (Formoterol 20 Mcg/2 Ml Vial) 20 mcg NEB BIDR [facility] Stop: 09/06/25 18:59 Last Admin: 08/14/25 12:20 Dose: Not Given Furosemide (Furosemide 80 Mg Tab) 80 mg PO BID17 [facility] Stop: 09/06/25 16:59 Last Admin: 08/14/25 08:54 Dose: Not Given Glucagon (Glucagon For Inj 1 Mg Vial) 1 mg SQ UD PRN; Protocol PRN Reason: Hypoglycemia Protocol Stop: 09/06/25 16:26 Glucose (Glucose 40% Gel 15 Gm Tube) 15 - 30 gm PO UD PRN; Protocol PRN Reason: Hypoglycemia Protocol Stop: 09/06/25 16:26 Glucose (Glucose 10 Tab/Tube) 4 - 8 tab PO UD PRN; Protocol PRN Reason: Hypoglycemia Protocol Stop: 09/06/25 16:26 Heparin Sodium (Porcine) (Heparin 100 Unit/Ml 5ml Flush) 5 ml FLUSH PRN PRN PRN Reason: Flush Stop: 09/07/25 03:06 Last Admin: 08/09/25 19:16 Dose: 5 ml Hydromorphone HCl (Hydromorphone Inj 1 Mg/Ml Syringe) 0.25 mg IV Q5M PRN PRN Reason: PACU Use Only-Pain Stop: 08/14/25 19:16 Levofloxacin/Dextrose (Levaquin/D5w) 750 mg in 150 mls @ 100 mls/hr IV Q24H [facility]; Protocol Stop: 08/15/25 17:14 Last Infusion: 08/13/25 19:12 Dose: Infused Promethazine HCl 6.25 mg/ (Sodium Chloride) 50.25 mls @ 204 mls/hr IV ONCE PRN PRN Reason: PACU Use Only-Nausea/Vomiting Stop: 08/14/25 19:16 Lactated Ringer's (Lr) 1,000 mls @ 15 mls/hr IV .Q24H [facility] Stop: 08/17/25 11:59 Last Admin: 08/14/25 11:56 Dose: 15 mls/hr Insulin Aspart (Insulin Aspart Per Unit Charge) 0 units SC Q6 [facility] Stop: 09/13/25 05:59 Last Admin: 08/14/25 06:14 Dose: 2 units Insulin Glargine (Lantus Per Unit Charge) 16 units SQ HS [facility] Stop: 09/11/25 20:59 Last Admin: 08/13/25 20:17 Dose: 16 units Lactic Acid (Ammonium Lactate 12% Lotion 225 Gm Btl) 5 gm EXT BID [facility] Stop: 09/06/25 20:59 Last Admin: 08/14/25 08:34 Dose: 5 gm Lactobacillus Acidophilus (Advanced Probiotic 625 Mg Capsule) 1,250 mg PO DAILY [facility] Stop: 09/07/25 08:59 Last Admin: 08/14/25 08:34 Dose: 1,250 mg Losartan Potassium (Losartan Potassium 25 Mg Tab) 25 mg PO DAILY [facility] Stop: 09/07/25 08:59 Last Admin: 08/14/25 08:32 Dose: 25 mg Magnesium Hydroxide (Magnesium Hydroxide Susp 30 Ml Udc) 30 ml PO Q6H PRN PRN Reason: Constipation Stop: 09/06/25 16:26 Last Admin: 08/13/25 20:22 Dose: 30 ml Melatonin (Melatonin 3 Mg Tab) 6 mg PO HS PRN PRN Reason: Sleep Stop: 09/06/25 20:59 Last Admin: 08/12/25 20:35 Dose: 6 mg Miscellaneous (Carbohydrates For Hypoglycemia ) 15 - 30 gm PO UD PRN PRN Reason: Hypoglycemia Protocol Stop: 09/06/25 16:26 Miscellaneous (Remove Nicoderm Patch) 1 each N/A DAILY@0859 [facility] Stop: 09/07/25 08:58 Last Admin: 08/14/25 08:34 Dose: 1 each Montelukast Sodium (Montelukast Sodium 10 Mg Tablet) 10 mg PO DAILY [facility] Stop: 09/07/25 08:59 Last Admin: 08/14/25 08:32 Dose: 10 mg Morphine Sulfate (Morphine Sulfate 4 Mg/Ml 1 Ml Carp\Vial) 3 mg IV Q3H PRN PRN Reason: Severe Pain (Scale 7, 8, 9,10) Stop: 08/21/25 16:26 Last Admin: 08/14/25 08:33 Dose: 3 mg Mupirocin (Mupirocin 2% Oint 22 Gm Tube) 1 appln NA BID [facility] Stop: 09/06/25 20:59 Last Admin: 08/14/25 08:36 Dose: Not Given Nicotine (Nicotine 14 Mg/24 Hr Patch) 1 patch TD QAM [facility] Stop: 09/06/25 16:59 Last Admin: 08/14/25 08:35 Dose: 1 patch Ondansetron HCl (Ondansetron Inj 2 Mg/Ml 2 Ml Vial) 4 mg IV Q6H PRN PRN Reason: Nausea Stop: 09/06/25 16:26 Ondansetron HCl (Ondansetron Inj 2 Mg/Ml 2 Ml Vial) 4 mg IV ONCE PRN PRN Reason: PACU Use Only-Nausea/Vomiting Stop: 08/14/25 19:16 Oxycodone HCl (Oxycodone Hcl Ir 5 Mg Tab (Immediate Release)) 15 mg PO Q6H PRN PRN Reason: Moderate Pain (Scale 4, 5, 6) Stop: 08/21/25 16:42 Pantoprazole Sodium (Pantoprazole 40 Mg Tab) 40 mg PO BID [facility]; Protocol Stop: 09/06/25 20:59 Last Admin: 08/14/25 08:32 Dose: 40 mg Polyethylene Glycol (Polyethylene (Miralax) 17 Gm Pack) 17 gm PO DAILY PRN PRN Reason: Constipation Stop: 09/06/25 16:26 Last Admin: 08/13/25 12:39 Dose: 17 gm Pregabalin (Pregabalin 150 Mg Cap) 150 mg PO TID [facility] Stop: 09/06/25 16:44 Last Admin: 08/14/25 08:32 Dose: 150 mg Spironolactone (Spironolactone 100 Mg Tab) 100 mg PO DAILY [facility] Stop: 09/07/25 08:59 Last Admin: 08/14/25 08:54 Dose: Not Given Umeclidinium [place] (Umeclidinium [place] 62.5mcg/Blister 7 Puffs/Inhaler) 1 puffs INH QAM [facility] Stop: 09/08/25 13:44 Last Admin: 08/14/25 08:37 Dose: Not Given (8) Cirrhosis Ascites presence: unspecified Hepatic cirrhosis type: alcoholic cirrhosis Qualified Code(s): K70.30 - Alcoholic cirrhosis of liver without ascites (9) Type 2 diabetes mellitus Diabetes mellitus complication status: with other specified complication Diabetes mellitus fci insulin use: unspecified fci insulin use status Qualified Code(s): E11.69 - Type 2 diabetes mellitus with other specified complication (10) Chronic deep vein thrombosis (DVT) Affected thrombotic vein of extremity: unspecified vein of extremity DVT location: lower extremity Laterality: right Qualified Code(s): I82.501 - Chronic embolism and thrombosis of unspecified deep veins of right lower extremity
[2025-08-14] MEDS ORDERED: GLYCOPYRROLATE 0.2 MG/ML VIAL ONE (12:25)
[2025-08-14] MEDS ORDERED: KETAMINE HCL 10MG/ML SYR ONE (12:25)
[2025-08-14] MEDS: BUPIVACAINE 0.5 % 5 MG/1 ML MPF 30ML VIAL ONE (13:35)
--- NOTE | 2025-08-14 13:36 | Post Operative Brief Note ---
Immediate Post Op Note Date of Surgery August 14, 2025 Pre & Post Diagnosis Operation Date: 08/14/25 12:15 Pre-Op Diagnosis: Bilateral Ankle Ulcerations, Cellulitis Post-Op Diagnosis: Bilateral Ankle Ulcerations, Cellulitis I identified the patient and participated in the time-out.: Yes Procedure Operation Date: 08/14/25 12:15 Actual Procedures p Bilateral Ankle Ulcers Debridement with Biopsy(Bilateral) - Gerson La DPM Surgeon Gerson La DPM Information Broker None Estimated Blood Loss 10 Findings Consistent with Post-Op Diagnosis Specimens Left ankle wound culture Left ankle wound and skin pathology Right ankle wound and skin pathology Anesthesia Type MAC Complications none Disposition Accompanied Patient To Recovery: Yes Disposition: Recovery Room
--- NOTE | 2025-08-14 14:15 | Anesthesiology Progress Note ---
Date of Service August 14, 2025 Anesthesia Post Procedure Vital Signs Vital Signs: Temp Pulse Pulse Resp BP BP Pulse Ox 08/14/25 14:05 8 L 10 L 106/70 96 08/14/25 13:55 79 12 124/56 L 98 08/14/25 13:45 37.0 C 83 12 82/68 L 96 08/14/25 11:41 36.9 C 77 20 122/71 97 08/14/25 08:19 36.7 C 74 18 114/73 95 08/13/25 21:34 36.9 C 82 16 112/74 93 08/13/25 19:27 83 18 94 08/13/25 15:03 36.8 C 79 16 105/62 98 O2 Del Method O2 Flow Rate 08/14/25 14:05 Oxymask 3 08/14/25 13:55 Oxymask 3 08/14/25 13:45 Oxymask 6 08/14/25 11:41 Room Air 08/14/25 08:19 Room Air 08/13/25 21:34 Room Air 08/13/25 19:27 Room Air 08/13/25 15:03 Room Air Pain Intensity Right Ankle: Pain Intensity: 7 Left Foot: Pain Intensity: 9 Transfer of Care Handoff Completed per policy Notes Mental Status: alert / awake / arousable and participated in evaluation Patient Amnestic to Procedure: Yes Nausea / Vomiting: adequately controlled Pain: adequately controlled Airway Patency, RR, SpO2: stable & adequate BP & HR: stable & adequate Hydration State: stable & adequate Anesthetic Complications: no major complications apparent and Pt Satisfied with anesthetic care
--- NOTE | 2025-08-14 21:31 | Operative Report ---
Post Operative Report Pre & Post Diagnosis Operation Date: 08/14/25 12:15 Pre-Op Diagnosis: Bilateral Ankle Ulcerations, Cellulitis Post-Op Diagnosis: Bilateral Ankle Ulcerations, Cellulitis I identified the patient and participated in the time-out.: Yes Procedure Operation Date: 08/14/25 12:15 Actual Procedures p Bilateral Ankle Ulcers Debridement with Biopsy(Bilateral) - Gerson La DPM Surgeon Gerson La DPM Cloth Dyeing Range Tender None Estimated Blood Loss 10 Findings Consistent with Post-Op Diagnosis No deep extension of wound to bone. All ulcerations overlying malleoli but these are covered with soft tissue and deep fascia. No evidence of osteomyelitis or drainable abscess. Extensive scar tissue formation is leading to significant increase in interstitial pressure; very difficult to even perform anesthetic block because of the tension of injecting the fluid through the scar tissue around the distal leg. Specimens Left wound tissue sent for culture and pathology; Right wound tissue sent for pathology Anesthesia Type MAC Complications none Disposition Accompanied Patient To Recovery: Yes Disposition: Recovery Room Indications This patient is a recent hospital consult of ours who presented with painful ulcerations and cellulitis to the bilateral lower extremity. We initially saw him several years ago for these wounds and concerns of vascular disease, tobacco abuse, and cavus foot deformity. He was lost to followup for several years but states he had wound care and several hospitalizations over that time. He has done well on IV antibiotics but states he always fails oral antibiotics. He is interest in IV antibiotics currently and is pending a transfer to inpatient rehab or residential for this. While admitted, we discussed he could benefit from biopsy and deeper cultures, to rule out any malignant transformation and to more definitively sharply debride them under anesthesia. Patient is amenable to this. Preoperative instructions, postoperative instructions, relative risks, and outcomes were all discussed. Consent was obtained for these procedures. All questions were answered. Specifically, no guarantees on outcome were expressed or implied and it was suggested that he may have difficulty healing this more moving forward, given the new sharp dissection. Description of Procedure The patient was brought to the operating table and left on his preoperative litter bed for the duration of the case. The bilateral lower extremity was scrubbed, prepped, and draped in the usual aseptic manner. No tourniquet was utilized during the case given his significant vascular disease. After administration of IV sedation, local analgesia was obtained with 20cc 0.5% marcaine plain in bilateral local blocks. Attention was directed to the left lower extremity where a non-healing ulceration was noted directly proximal to the medial malleolus. There was significant periwound scarring. The wound appeared clinically most consistent with a neuropathic ulceration, despite complaints of pain. The wound was sharply debrided to the level of the deep fascia utilizing a #15 blade, curette, and rongeur. All non-viable tissue and fibrotic slough was able to be excised. Glass Silverer tissue for deep tissue culture was obtained here with a rongeur and sent off to the back table. Further, a 15 blade was utilized to excise one entire margin of the wound, full thickness, to be sent for pathology testing. This was sent separately in formalin. The wound, after debridement, measured 2.0 x 0.8 x0. 4cm. Attention was then directed to the right lower extremity where a non-healing ulceration was noted directly proximal to the medial malleolus with a smaller lateral malleolus ulceration noted as well. There was significant periwound scarring. The wound was sharply debrided to the level of the deep fascia utilizing a #15 blade, curette, and rongeur. All non-viable tissue and fibrotic slough was able to be excised. A 15 blade was utilized to excise one entire margin of the wound, full thickness, to be sent for pathology testing. This was sent in formalin for gross pathology examination. After debridement, this measured 1.8 x1.4 x 0.4cm medially and 0.8 x 0.5 x 0.2cm laterally. All surgical sites were dressed with betadine soaked 4x4s, dry 4x4s, kerlix, and medipore tape. The patient tolerated the procedure well and was transferred to the recovery room with vital signs stable and vascular status intact to the feet. Following postoperative monitoring, he will be transferred back to the floor for further monitoring and likely discharge to inpatient nursing care in the next couple of days. I attest to the content of the Intraoperative Record and any orders documented therein. Any exceptions are noted below.
[2025-08-15 06:03] LABS: Hematocrit (blood only) 35.1 % (42.0-52.0); Hemoglobin 11.2 g/dL (14.0-18.0); Immature Granulocytes # (auto) 0.03 K/uL (0.01-0.20); Immature Granulocytes % (auto) 0.7 %; Mean Corpuscular Hemoglobin 26.5 pg (25.0-34.0); Mean Corpuscular Volume 83.0 fL (80.0-100.0); Platelet Count 214 K/uL (130-400); RDW Standard Deviation 49.5 fL (36.4-46.3); Red Blood Count 4.23 M/uL (4.70-6.10); White Blood Count 4.56 K/ul (4.8-10.8)
[2025-08-15 06:20] LABS: Anion Gap 6.0 (3-11); Blood Urea Nitrogen 34.0 mg/dl (6-23); Calcium 9.1 mg/dl (8.6-10.3); Carbon Dioxide 29.0 mmol/L (21-32); Chloride 100.0 mmol/L (98-107); Creatinine Clr Calc Pharmacy 86.3 ml/min; Glucose 169.0 mg/dl (70-99(Fasting)); Potassium 4.3 mmol/L (3.5-5.1); Sodium 135.0 mmol/L (136-145)
--- NOTE | 2025-08-15 13:40 | Hospitalist Progress Note ---
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 Pt admitted 08/01-08/05 for wound infection. D/C on oral antibiotics. Endorsed worsening pain to R ankle and worsening foul smell. He also c/o cold sweats, nausea and vomiting. He also c/o increased SOB. #Bilateral ankle wounds, R worse than L #MRSA nares positive #Known Venous insufficiency with chronic vte - Recent MRI: no osteomyelitis - Wound culture: serratia marcescens, klebsiella oxytoc and Stenotrophomonas maltophilia - Failed PO abx regimen and represented for worsening pain, purulence in R foot -D/w vascular surgery LEAH; should have ok healing if any procedure is needed -D/w podiatry, who underwent surgical intervention -ID consulted for abx guidance-->recommended levaquin -Will treat with IV levaquin for 2 weeks through 08/20 -F/u repeat blood cultures, NGTD -- underwent bilateral ankle ulcers debridement with biopsy on 08/14/2025 Will likely need to go to rehab following the procedure Will increase oxy to 15mg for interim post op, recommend de escalating back to 12.5 on 08/16 if able #COPD #Abnormal CT #Cough -Low suspicion for PNA, No O2 requirements. lungs CTA -Continue breathing treatments Denies any shortness of breath or wheezing at rest -continue inhalers #T2DM A1c: 6.7 on 06/20/25 Hold home ozempic BSG poor controlled initially but this is improving Increase lantus 16 units nightly Would favor continuing lantus while at SNF to achieve better wound healing through euglycemia SSI BGM ACHS #HTN Pt BP low this a.m. Placed home ARB, aldactone and lasix on hold for today reassess in a.m. if able to resume #Cirrhosis History alcoholic cirrhosis Has been abstaining from alcohol on furosemide, spironolactone as OP #HLD on statin at outpt #Chronic DVT continue eliquis #Chronic pain continue chronic oxy, lyrica will increase oxy to liquid 15mg during periop phase as he is on 10mg as outpt Will review pain medications prior to discharge #Anemia -Normocytic -Chronic at baseline -No bleeding -Likely ACD -F/u PCP as OP #Anxiety chronic, stable continue buspar and prozac #Tobacco abuse continue nicotine patch #DVT ppx: Eliquis FULL CODE PCP: Willa Soto Dispo: admitted to medical, consult podiatry and ID Pt seen and examined in collaboration with Dr. Wilkins, please see addendum I spent a total of 48 minutes coordinating, documenting, and providing care for this patient . This included personally reviewing all current laboratories and imaging studies, medical reconciliation, outpatient chart review and discussion with specialists Admission and Anticipated Discharge Date Admission Date: August 07, 2025 Supervising Physician Co-Signing Physician Notes 08/14/2025 The patient was seen and examined in medical floor He will have I&D and also biopsy from his ankle by the attorney general today Denies any other significant symptoms except pain in the ankles On examination Lying on bed without any acute distress Remains hemodynamically stable and is afebrile Chest was clear to auscultation bilaterally HeartS1-S2 regular Abdomenbenign Extremitiesbilateral swelling of the ankles with ankle ulcers/wound His labs, medications and imaging studies reviewed He will have bilateral ankle ulcers debridement with biopsy this afternoon His other significant medical conditions remained stable as above Agree with assessment plan as outlined above by Yanira Sims PA-C and take the full responsibility of care in the hospital Total time taken to see the patient, examining him, reviewing the chart and medications, and plan for care was [address] Linda Wilkins 08/15/2025 The patient was seen and examined in medical floor He is status post bilateral ankle ulcers debridement and biopsy Complains of pain in the ankles Denies any other significant symptoms He remains hemodynamically stable and afebrile Other system examination unremarkable Awaiting pathology and Gram stain of the biopsies Agree with assessment plan as outlined above by Faith Sanders PA-C and take the full responsibility in the hospital Total time taken to see the patient, examining him, reviewing the medications and charts and also planning care [address] Linda Ellison Pt seen in room 362-1. F/U b/l ankle wounds. He continues to have ankle pain around wounds R >L. He reports he didn't sleep last night due to the pain. Denies f/c/s, chest pain, sob,n/v. He is tolerating diet. He is moving bowels on current regimen. Review of Systems Review of Systems: All systems reviewed & are unremarkable except as noted in HPI & below Physical Exam Physical Exam: Gen: WD/WN, NAD, nontoxic appearing, appears in pain, A&O x3 HEENT: Normocephalic, atraumatic, conjunctivae moist, sclerae anicteric, mucous membranes moist. Lung: Clear to Auscultation bilaterally, minimal wheezing throughout no rales/rhonchi Heart: Regular rate, regular rhythm, no murmurs, rubs, or gallops Abdomen: Soft, ND, NT, no rebound/guarding +BS x 4 Extremities: b/l hyperkeratotic venous stasis changes with ulceration to R medial and lateral malleolar area and ulcer to medial L malleolar area, no surrounding erythema or drainage, wound bed is not necrotic. Dressings are CDI today. Skin: Warm, no rash, negative turgor. Results & Data Results & Data Vital Signs (Past 12 Hours) Vital Signs Temp Pulse Resp BP Pulse Ox O2 Del Method 08/15/25 12:26 89 18 94 Room Air 08/15/25 11:33 36.7 C 72 20 114/72 96 Room Air 08/15/25 07:54 37.5 C 65 21 109/70 98 Room Air 08/15/25 07:36 Room Air 08/15/25 07:07 68 16 95 Room Air 08/15/25 03:16 36.9 C 75 18 96/60 L 93 Room Air Laboratory Results Short CBC 08/15/25 Range/Units 05:46 WBC 4.56 L (4.8-10.8) K/ul Hgb 11.2 L (14.0-18.0) g/dL Hct 35.1 L (42.0-52.0) % Plt Count 214 (130-400) K/uL BMP 08/15/25 05:46 Sodium 135 L Potassium 4.3 Chloride 100 Carbon Dioxide 29 BUN 34 H Creatinine 1.18 Glucose 169 H Calcium 9.1 I have independently reviewed and interpreted patient's cbc, bmp Medications Administered Current Inpatient Medications Acetaminophen (Acetaminophen 325 Mg Tab) 650 mg PO Q4H PRN PRN Reason: mild pain 1-3/fever Stop: 09/06/25 16:26 Al Hydrox/Mg Hydrox/Simethicone (Aluminum/Magnesium Susp 30 Ml Udc) 30 ml PO Q6H PRN PRN Reason: Dyspepsia Stop: 09/06/25 16:26 Last Admin: 08/10/25 16:19 Dose: 30 ml Albuterol (Albut/Ipratrop 3mg/0.5mg Neb 3 Ml Vial) 3 ml NEB Q6RWA [facility]; Protocol Stop: 09/06/25 18:59 Last Admin: 08/15/25 12:25 Dose: 3 ml Apixaban (Apixaban 5 Mg Tablet) 5 mg PO BID [facility] Stop: 09/06/25 20:59 Last Admin: 08/15/25 08:19 Dose: 5 mg Atorvastatin Calcium (Atorvastatin 40 Mg Tab) 40 mg PO DAILY [facility] Stop: 09/07/25 08:59 Last Admin: 08/15/25 08:19 Dose: 40 mg Buspirone HCl (Buspirone 15 Mg Tab) 15 mg PO BID [facility] Stop: 09/06/25 20:59 Last Admin: 08/15/25 08:19 Dose: 15 mg Collagenase (Collagenase Oint 30 Gm Tube) 1 appln EXT DAILY [facility] Stop: 09/07/25 08:59 Last Admin: 08/15/25 08:25 Dose: 1 appln Collagenase (Collagenase Oint 30 Gm Tube) 1 appln EXT DAILY [facility] Stop: 09/08/25 08:59 Last Admin: 08/15/25 08:25 Dose: 1 appln Dextrose (Dextrose 50% 50 Ml Syringe) 25 - 50 ml IV UD PRN; Protocol PRN Reason: Hypoglycemia Protocol Stop: 09/06/25 16:26 Diphenhydramine HCl (Diphenhydramine 50 Mg/Ml Vial) 25 mg IV Q8H PRN PRN Reason: itching Stop: 09/06/25 18:31 Last Admin: 08/15/25 07:59 Dose: 25 mg Docusate Sodium (Docusate Sodium 100 Mg Cap) 100 mg PO BID [facility] Stop: 09/06/25 20:59 Last Admin: 08/15/25 08:32 Dose: 100 mg Fluoxetine HCl (Fluoxetine Hcl 20 Mg Cap) 20 mg PO HS [facility] Stop: 09/06/25 20:59 Last Admin: 08/14/25 21:54 Dose: 20 mg Fluticasone/Vilanterol (Fluticasone/Vilanterol 200/25mcg 14 Puffs/Inhaler) 1 puffs INH DAILY [facility] Stop: 09/15/25 08:59 Folic Acid (Folic Acid 1 Mg Tab) 1 mg PO QAM [facility] Stop: 09/07/25 08:59 Last Admin: 08/15/25 08:19 Dose: 1 mg Furosemide (Furosemide 80 Mg Tab) 80 mg PO [id number] [facility] Stop: 09/06/25 16:59 Last Admin: 08/14/25 16:55 Dose: 80 mg Glucagon (Glucagon For Inj 1 Mg Vial) 1 mg SQ UD PRN; Protocol PRN Reason: Hypoglycemia Protocol Stop: 09/06/25 16:26 Glucose (Glucose 40% Gel 15 Gm Tube) 15 - 30 gm PO UD PRN; Protocol PRN Reason: Hypoglycemia Protocol Stop: 09/06/25 16:26 Glucose (Glucose 10 Tab/Tube) 4 - 8 tab PO UD PRN; Protocol PRN Reason: Hypoglycemia Protocol Stop: 09/06/25 16:26 Heparin Sodium (Porcine) (Heparin 100 Unit/Ml 5ml Flush) 5 ml FLUSH PRN PRN PRN Reason: Flush Stop: 09/07/25 03:06 Last Admin: 08/09/25 19:16 Dose: 5 ml Levofloxacin/Dextrose (Levaquin/D5w) 750 mg in 150 mls @ 100 mls/hr IV Q24H [facility]; Protocol Stop: 08/20/25 23:59 Last Infusion: 08/14/25 18:51 Dose: Infused Insulin Aspart (Insulin Aspart Per Unit Charge) 0 units SC ACHS [facility] Stop: 09/13/25 05:59 Last Admin: 08/15/25 12:45 Dose: 4 units Insulin Glargine (Lantus Per Unit Charge) 16 units SQ HS [facility] Stop: 09/11/25 20:59 Last Admin: 08/14/25 21:49 Dose: 16 units Lactic Acid (Ammonium Lactate 12% Lotion 225 Gm Btl) 5 gm EXT BID [facility] Stop: 09/06/25 20:59 Last Admin: 08/15/25 08:21 Dose: 5 gm Lactobacillus Acidophilus (Advanced Probiotic 625 Mg Capsule) 1,250 mg PO DAILY [facility] Stop: 09/07/25 08:59 Last Admin: 08/15/25 08:19 Dose: 1,250 mg Losartan Potassium (Losartan Potassium 25 Mg Tab) 25 mg PO DAILY [facility] Stop: 09/07/25 08:59 Last Admin: 08/14/25 08:32 Dose: 25 mg Magnesium Hydroxide (Magnesium Hydroxide Susp 30 Ml Udc) 30 ml PO Q6H PRN PRN Reason: Constipation Stop: 09/06/25 16:26 Last Admin: 08/13/25 20:22 Dose: 30 ml Melatonin (Melatonin 3 Mg Tab) 6 mg PO HS PRN PRN Reason: Sleep Stop: 09/06/25 20:59 Last Admin: 08/14/25 21:53 Dose: 6 mg Miscellaneous (Carbohydrates For Hypoglycemia ) 15 - 30 gm PO UD PRN PRN Reason: Hypoglycemia Protocol Stop: 09/06/25 16:26 Miscellaneous (Remove Nicoderm Patch) 1 each N/A DAILY@0859 [facility] Stop: 09/07/25 08:58 Last Admin: 08/15/25 08:20 Dose: 1 each Montelukast Sodium (Montelukast Sodium 10 Mg Tablet) 10 mg PO DAILY [facility] Stop: 09/07/25 08:59 Last Admin: 08/15/25 08:19 Dose: 10 mg Morphine Sulfate (Morphine Sulfate 4 Mg/Ml 1 Ml Carp\Vial) 3 mg IV Q3H PRN PRN Reason: Severe Pain (Scale 7, 8, 9,10) Stop: 08/21/25 16:26 Last Admin: 08/15/25 12:54 Dose: 3 mg Mupirocin (Mupirocin 2% Oint 22 Gm Tube) 1 appln NA BID [facility] Stop: 09/06/25 20:59 Last Admin: 08/15/25 08:12 Dose: 1 appln Nicotine (Nicotine 14 Mg/24 Hr Patch) 1 patch TD QAM [facility] Stop: 09/06/25 16:59 Last Admin: 08/15/25 08:18 Dose: 1 patch Ondansetron HCl (Ondansetron Inj 2 Mg/Ml 2 Ml Vial) 4 mg IV Q6H PRN PRN Reason: Nausea Stop: 09/06/25 16:26 Oxycodone HCl (Oxycodone Hcl Ir 5 Mg Tab (Immediate Release)) 15 mg PO Q4H PRN PRN Reason: Moderate Pain (Scale 4, 5, 6) Stop: 08/28/25 12:10 Pantoprazole Sodium (Pantoprazole 40 Mg Tab) 40 mg PO BID [facility]; Protocol Stop: 09/06/25 20:59 Last Admin: 08/15/25 08:19 Dose: 40 mg Polyethylene Glycol (Polyethylene (Miralax) 17 Gm Pack) 17 gm PO DAILY PRN PRN Reason: Constipation Stop: 09/06/25 16:26 Last Admin: 08/15/25 08:02 Dose: 17 gm Pregabalin (Pregabalin 150 Mg Cap) 150 mg PO TID [facility] Stop: 09/06/25 16:44 Last Admin: 08/15/25 12:58 Dose: 150 mg Spironolactone (Spironolactone 100 Mg Tab) 100 mg PO DAILY [facility] Stop: 09/07/25 08:59 Last Admin: 08/14/25 08:54 Dose: Not Given Umeclidinium [place] (Umeclidinium [place] 62.5mcg/Blister 7 Puffs/Inhaler) 1 puffs INH QAM [facility] Stop: 09/08/25 13:44 Last Admin: 08/15/25 08:14 Dose: 1 puffs (8) Cirrhosis Ascites presence: unspecified Hepatic cirrhosis type: alcoholic cirrhosis Qualified Code(s): K70.30 - Alcoholic cirrhosis of liver without ascites (9) Type 2 diabetes mellitus Diabetes mellitus complication status: with other specified complication Diabetes mellitus long-term insulin use: unspecified long-term insulin use status Qualified Code(s): E11.69 - Type 2 diabetes mellitus with other specified complication (10) Chronic deep vein thrombosis (DVT) Affected thrombotic vein of extremity: unspecified vein of extremity DVT location: lower extremity Laterality: right Qualified Code(s): I82.501 - Chronic embolism and thrombosis of unspecified deep veins of right lower extremity
--- NOTE | 2025-08-15 15:45 | Podiatry Progress Note ---
Date of Service August 15, 2025 Assessment & Plan (1) Peripheral arterial disease: (2) Cellulitis of right lower extremity: (3) Cellulitis of left leg: (4) Chronic ulcer of left ankle with fat layer exposed: (5) Chronic ulcer of right ankle with fat layer exposed: Plan Patient examined and evaluated. 1 day s/p b/l ankle ulcer debridements/biopsies - Surgical intervention was congruous with clinical exam findings; evidence of cellulitis without abscess or OM, venous/arterial insufficiency to b/l ankles - Can continue with daily dressing changes, optifoam gauze with betadine or similar. - Pain likely amplified now by chronic narcotic use; pain currently out of proportion to surgical intervention, but also not limiting appetite, ADLs, etc. - Can d/c to inpatient rehab or other plans whenever stable per medicine. Ok from our service,. - Will benefit from continued wound care, likely at [facility], though we would follow-up with him within 1-2 weeks outpatient if he cannot get in there. - Will check back in on Monday if he remains inpatient. Admission and Anticipated Discharge Date Admission Date: August 07, 2025 Subjective Pt seen at bedside. Has dressings intact to ankles. Has pain to right greater than left ankle. Denies any new signs of infection. Pain is significant, but he is otherwise comfortable appearing. Physical Exam Physical Exam: Lower extremity focused exam: DP/PT pulses nonpalpable. Advanced trophic hamilton ges noted to the bilateral lower extremity from mid tibia distally. Skin is thin and is extensively scarred to the anterior leg. There is evidence of venous stasis and peripheral arterial insufficiency. Bilateral lower extremity is warm to the touch with erythema radiating from ulcerations to the right medial and lateral malleolus and left medial malleolus. No deep probing is noted. No bleeding to exterior dressing. Wounds were able to be converted to healthy wound base without deep extension or obvious purulent infection. Pathology reveals stasis dermatitis and ulceration without evidence of malignant transformation. Constitutional: WD/WN, vitals as above + ill appearing and + obese Eyes: PERRL, conjunctivae normal, anicteric sclerae ENMT: external ear and nose normal, oropharynx normal Mouth: + poor dentition Neck: trachea midline, no thyromegaly normal visual inspection Respiratory: normal respiratory effort; no respiratory distress Cardiovascular: Rate/Rhythm: regular rate and regular rhythm Vessels: + posterior tibial pulses abnormal and + dorsalis pedis pulses abnormal Chest (Breasts): Chest: normal inspection of chest Gastrointestinal (Abdomen): Inspection/Auscultation: abdomen normal to inspection Percussion/Palpation: + abdomen tender and abdomen soft Musculoskeletal: no cyanosis or clubbing, extremities motor strength 5/5 Head/Neck/Chest: normocephalic and head atraumatic Extremities: extremities normal to inspection Skin: + skin tightening, + wound, + skin atrop hy, + erythema, + scar and + nails dystrophic; + abnormal skin elasticity Neurologic: awake; no focal motor deficits Psychiatric: A+Ox3, euthymic affect Results & Data Results & Data Vital Signs (Past 12 Hours) Vital Signs Temp Pulse Resp BP Pulse Ox O2 Del Method 08/15/25 12:26 89 18 94 Room Air 08/15/25 11:33 36.7 C 72 20 114/72 96 Room Air 08/15/25 07:54 37.5 C 65 21 109/70 98 Room Air 08/15/25 07:36 Room Air 08/15/25 07:07 68 16 95 Room Air
[2025-08-16 08:13] LABS: Hematocrit (blood only) 37.5 % (42.0-52.0); Hemoglobin 12.0 g/dL (14.0-18.0); Mean Corpuscular Hemoglobin 26.7 pg (25.0-34.0); Mean Corpuscular Volume 83.3 fL (80.0-100.0); Platelet Count 196 K/uL (130-400); RDW Standard Deviation 49.5 fL (36.4-46.3); Red Blood Count 4.50 M/uL (4.70-6.10); White Blood Count 3.73 K/ul (4.8-10.8)
[2025-08-16 08:33] LABS: Anion Gap 4 (3-11); Blood Urea Nitrogen 28 mg/dl (6-23); Calcium 9.3 mg/dl (8.6-10.3); Carbon Dioxide 31 mmol/L (21-32); Chloride 102 mmol/L (98-107); Creatinine Clr Calc Pharmacy 96.1 ml/min; Glucose 154 mg/dl (70-99(Fasting)); Sodium 137 mmol/L (136-145)
[2025-08-16] MEDS: FLUTICASONE/VILANTEROL 200/25MCG 14 PUFFS/INHALER INH SCH (09:04)
--- NOTE | 2025-08-16 15:57 | Hospitalist Progress Note ---
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 Pt admitted 08/01-08/05 for wound infection. D/C on oral antibiotics. Endorsed worsening pain to R ankle and worsening foul smell. He also c/o cold sweats, nausea and vomiting. He also c/o increased SOB. #Bilateral ankle wounds, R worse than L #MRSA nares positive #Known Venous insufficiency with chronic vte - Recent MRI: no osteomyelitis - Wound culture: serratia marcescens, klebsiella oxytoc and Stenotrophomonas maltophilia - Failed PO abx regimen and represented for worsening pain, purulence in R foot - D/w vascular surgery [facility]- should have okay healing if any procedure is needed - D/w podiatry, with bilateral Ankle Ulcers Debridement with Biopsy(Bilateral) by Dr. La on 08/14 - ID consulted for abx guidance-->recommended levaquin, recommended for 2 weeks with EOT 08/20 - F/u repeat blood cultures - Following biopsy results - Will likely need to go to rehab following the procedure - Will increase oxy to 15mg for interim post op, de-escalated back to 12.5mg today #COPD #Abnormal CT #Cough -Low suspicion for PNA, No O2 requirements. lungs CTA -Continue breathing treatments Denies any shortness of breath or wheezing at rest -Continue inhalers #T2DM A1c: 6.7 on 06/20/25 Hold home ozempic BSG poor controlled initially but this is improving Increase lantus 16 units nightly Would favor continuing lantus while at SNF to achieve better wound healing through euglycemia SSI, BSG ACHS #HTN Pt BP low this a.m. Placed home ARB, aldactone and lasix on hold yesterday, resume as able #Cirrhosis History alcoholic cirrhosis Has been abstaining from alcohol on furosemide, spironolactone as OP #HLD on statin at outpt #Chronic DVT continue eliquis #Chronic pain continue chronic oxy, lyrica Will review pain medications prior to discharge #Anemia -Normocytic -Chronic at baseline -No bleeding -Likely ACD -F/u PCP as OP #Anxiety chronic, stable continue buspar and prozac #Tobacco abuse continue nicotine patch #DVT ppx: Eliquis FULL CODE PCP: Willa Soto Dispo: admitted to medical, consult podiatry and ID Pt seen and examined in collaboration with Dr. Wilkins, please see addendum I spent a total of 50 minutes coordinating, documenting, and providing care for this patient . This included personally reviewing all current laboratories and imaging studies, medical reconciliation, outpatient chart review and discussion with specialists Admission and Anticipated Discharge Date Admission Date: August 07, 2025 Supervising Physician Co-Signing Physician Notes 08/14/2025 The patient was seen and examined in medical floor He will have I&D and also biopsy from his ankle by the life sciences manager today Denies any other significant symptoms except pain in the ankles On examination Lying on bed without any acute distress Remains hemodynamically stable and is afebrile Chest was clear to auscultation bilaterally HeartS1-S2 regular Abdomenbenign Extremitiesbilateral swelling of the ankles with ankle ulcers/wound His labs, medications and imaging studies reviewed He will have bilateral ankle ulcers debridement with biopsy this afternoon His other significant medical conditions remained stable as above Agree with assessment plan as outlined above by Yanira Sims PA-C and take the full responsibility of care in the hospital Total time taken to see the patient, examining him, reviewing the chart and medications, and plan for care was [address] Linda Wilkins 08/15/2025 The patient was seen and examined in medical floor He is status post bilateral ankle ulcers debridement and biopsy Complains of pain in the ankles Denies any other significant symptoms He remains hemodynamically stable and afebrile Other system examination unremarkable Awaiting pathology and Gram stain of the biopsies Agree with assessment plan as outlined above by Faith Sanders PA-C and take the full responsibility in the hospital Total time taken to see the patient, examining him, reviewing the medications and charts and also planning care [address] Linda Wilkins 08/16/2025 The patient was seen and examined in medical floor He has been stable following the I&D and biopsy of the ankles The results are negative so far Complains some pain in the ankles but otherwise remains stable His chart, medications and investigation results were discussed with him and appropriate plan was documented as above Agree with assessment and plan as outlined by Jeanna Ahmadi PA-C and take the full responsibility of care in the hospital I spent a total of 10 minutes examining the patient, planning care and going over the procedure results DR Linda Wilkins Subjective Pt seen at bedside. Has dressings intact to ankles. Has pain to right greater than left ankle but improving. Denies any new signs of infection. Tolerating diet, no new complaints. Has a housing contract to sign on 08/20 so discussed logistics of that today. Review of Systems Review of Systems: At least ten systems reviewed and negative except as noted in the HPI. Physical Exam Physical Exam: Gen: WD/WN, NAD, resting in bed, A&Ox3 HEENT: Normocephalic, atraumatic, mucous membranes moist Lung: Clear to Auscultation bilaterally Heart: Regular rate, regular rhythm Abdomen: Soft, NT, ND +BS x 4 Extremities: + bilateral hyperkeratotic venous stasis changes with ulceration to R medial and lateral malleolar area and ulcer to medial L malleolar area, no surrounding erythema or drainage, dressings in place Skin: Warm, no rash Results & Data Results & Data Vital Signs (Past 12 Hours) Vital Signs Temp Pulse Pulse Resp BP Pulse Ox O2 Del Method 08/16/25 14:37 36.8 C 74 16 133/79 96 Room Air 08/16/25 13:09 67 18 97 Room Air 08/16/25 07:35 36.6 C 67 18 111/68 99 Room Air 08/16/25 07:25 63 16 97 Room Air Laboratory Results Short CBC 08/16/25 Range/Units 07:52 WBC 3.73 L (4.8-10.8) K/ul Hgb 12.0 L (14.0-18.0) g/dL Hct 37.5 L (42.0-52.0) % Plt Count 196 (130-400) K/uL BMP 08/16/25 08/16/25 07:52 08:49 Sodium 137 Potassium TNP 4.1 Chloride 102 Carbon Dioxide 31 BUN 28 H Creatinine 1.06 Glucose 154 H Calcium 9.3 Diagnostic Findings Chest X-Ray 08/07/25 09:52 XR chest 1V portable HISTORY: 50 years-old Male Sepsis COMPARISON: 525 TECHNIQUE: AP view of the chest FINDINGS: Cardiac silhouette is upper limits of normal in size. Right IJ Mwtupw-i-Klii catheter is unchanged. Pulmonary vascular congestion with interstitial coarsening. No pneumothorax or large pleural effusion. Mild hazy left basilar opacities are new from prior. Subacute to chronic posterior left rib fractures appear new from prior. Degenerative changes of the shoulders and spine. IMPRESSION: 1. Cardiomegaly with pulmonary vascular congestion. 2. Mild hazy left basilar opacities may represent atelectasis versus pneumonitis. ACT 112: Negative or not required by law. The above report was generated using voice recognition software. It may contain grammatical, syntax or spelling errors. Electronically signed by: Dante Cavazos M.D. 08/07/2025 11:14 AM Abdomen/Pelvis CT 08/07/25 10:[address] WITH IV CONTRAST CT DOSE: 1552.28 mGy.cm HISTORY: Acute right lower quadrant abdominal pain RLQ abd pain TECHNIQUE: Multiaxial CT images of the abdomen and pelvis were performed following the IV administration of 93 cc of Optiray, A dose lowering technique was utilized adhering to the principles of ALARA. COMPARISON STUDY: Chest CT 05/13/2019 FINDINGS: Bibasilar groundglass opacities with intralobular septal thickening has progressed from 2019. Bronchial wall thickening with mucous plugging. There is no pneumatosis or pneumoperitoneum. The spleen is enlarged measuring up to 19 cm, mildly increased in size from prior. Unremarkable adrenal glands and gallbladder. Hepatic steatosis. Patency of the hepatic and portal veins. There is mild inflammatory stranding involving the uncinate process pancreas and pancreaticoduodenal groove. Nonspecific bilateral perinephric stranding. 5 mm nonobstructing calculus of the mid pole right kidney. No ureteral calculi or hydronephrosis. Partially decompressed urinary bladder. Atherosclerosis of the aorta with high-grade stenosis of the infrarenal segment. Additional prominent calcifications are noted in the IVC, left renal and bilateral iliac veins suggestive of chronic thrombi. Pathologically enlarged lower iliac chain lymph nodes could a 2.5 x 1.5 cm lymph node on the left, image 339 and a 3.0 x 1.2 cm lymph node on the right, image 334. A 2.7 x 2.2 cm right inguinal chain lymph node is seen on image 405. No bowel obstruction or bowel wall thickening. Mild colonic fecal retention. Normal appendix. No acute fracture. IMPRESSION: 1. Mild inflammatory stranding adjacent to the uncinate process pancreas and pancreaticoduodenal groove suspicious for mild acute pancreatitis versus duodenitis. Correlate with serum lipase. 2. Normal appendix. 3. Splenomegaly redemonstrated, slightly increased in size compared to the 2019 comparison exam. 4. Nonspecific pathologically enlarged iliac and inguinal chain lymph nodes could be correlated with tissue sampling to exclude a lymphoproliferative process. 5. Atherosclerosis with high-grade infrarenal abdominal aortic stenosis. ACT 112: Negative or not required by law. The above report was generated using voice recognition software. It may contain grammatical, syntax or spelling errors. Electronically signed by: Dante Cavazos M.D. 08/07/2025 12:35 PM Ankle Brachial Index 08/08/25 11:29 US ankle/brachial index ltd HISTORY: 50 years-old Male aortoiliac disease, venous ulcers, please add TBI. COMPARISON: Arterial Doppler 08/02/2025 TECHNIQUE: Segmental pressures of the lower pelvis were obtained FINDINGS: RIGHT: Brachial-106 (index); dorsalis pedis-114 (0.98); posterior tibial-111 (0.96); toe-88 (0.76); JAYDE-0.98; TBI-0.76. LEFT: Brachial-116 (index); dorsalis pedis-103 (0.89); posterior tibial-115 (0.99); toe-81 (0.70); JAYDE-0.99; TBI-0.70. IMPRESSION: Normal ABIs bilaterally. ACT 112: Negative or not required by law. The above report was generated using voice recognition software. It may contain grammatical, syntax or spelling errors. Electronically signed by: Dante Cavazos M.D. 08/08/2025 3:28 PM (8) Cirrhosis Ascites presence: unspecified Hepatic cirrhosis type: alcoholic cirrhosis Qualified Code(s): K70.30 - Alcoholic cirrhosis of liver without ascites (9) Type 2 diabetes mellitus Diabetes mellitus complication status: with other specified complication Diabetes mellitus peace officer insulin use: unspecified senior living insulin use status Qualified Code(s): E11.69 - Type 2 diabetes mellitus with other specified complication (10) Chronic deep vein thrombosis (DVT) Affected thrombotic vein of extremity: unspecified vein of extremity DVT location: lower extremity Laterality: right Qualified Code(s): I82.501 - Chronic embolism and thrombosis of unspecified deep veins of right lower extremity
--- NOTE | 2025-08-17 08:25 | Hospitalist Progress Note ---
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 Pt admitted 08/01-08/05 for wound infection. D/C on oral antibiotics. Endorsed worsening pain to R ankle and worsening foul smell. He also c/o cold sweats, nausea and vomiting. He also c/o increased SOB. #Bilateral ankle wounds, R worse than L #MRSA nares positive #Known Venous insufficiency with chronic vte - Recent MRI: no osteomyelitis - Wound culture: serratia marcescens, klebsiella oxytoc and Stenotrophomonas maltophilia - Failed PO abx regimen and represented for worsening pain, purulence in R foot - D/w vascular surgery [facility]- should have okay healing if any procedure is needed - D/w podiatry, with bilateral Ankle Ulcers Debridement with Biopsy(Bilateral) by Dr. La on 08/14 - ID consulted for abx guidance-->recommended Levaquin, recommended for 2 weeks with EOT 08/20 - Repeat wound culture from podiatry growing preliminary MSSA - Repeat blood cultures negative - 08/14 bone biopsy consistent with stasis dermatitis - PT/OT evals, may need rehab - Per discussion with pharmacist, will add Keflex for add'l MSSA coverage at this time - De-escalated oxycodone back to 12.5mg today, morphine PRN daily #COPD #Abnormal CT #Cough -Low suspicion for PNA, No O2 requirements. lungs CTA -Continue breathing treatments Denies any shortness of breath or wheezing at rest -Continue inhalers #T2DM A1c: 6.7 on 06/20/25 Hold home Ozempic BSG poor controlled initially but this is improving Increase Lantus 16 units nightly Would favor continuing lantus while at SNF to achieve better wound healing through euglycemia SSI, BSG ACHS #HTN BP improved, resumed aldactone, lasix, losartan today #Cirrhosis History alcoholic cirrhosis Has been abstaining from alcohol on furosemide, spironolactone as OP #HLD On statin at outpt #Chronic DVT Continue eliquis #Chronic pain Continue chronic oxy, lyrica Will review pain medications prior to discharge #Anemia -Normocytic -Chronic at baseline -No bleeding -Likely ACD -F/u PCP as OP #Anxiety chronic, stable continue buspar and prozac #Tobacco abuse continue nicotine patch #DVT ppx: Eliquis FULL CODE PCP: Willa Soto Dispo: admitted to medical, consult podiatry and ID Pt seen and examined in collaboration with Dr. Wilkins, please see addendum I spent a total of 45 minutes coordinating, documenting, and providing care for this patient . This included personally reviewing all current laboratories and imaging studies, medical reconciliation, outpatient chart review and discussion with specialists Admission and Anticipated Discharge Date Admission Date: August 07, 2025 Supervising Physician Co-Signing Physician Notes 08/14/2025 The patient was seen and examined in medical floor He will have I&D and also biopsy from his ankle by the manager internal today Denies any other significant symptoms except pain in the ankles On examination Lying on bed without any acute distress Remains hemodynamically stable and is afebrile Chest was clear to auscultation bilaterally HeartS1-S2 regular Abdomenbenign Extremitiesbilateral swelling of the ankles with ankle ulcers/wound His labs, medications and imaging studies reviewed He will have bilateral ankle ulcers debridement with biopsy this afternoon His other significant medical conditions remained stable as above Agree with assessment plan as outlined above by Yanira Sims PA-C and take the full responsibility of care in the hospital Total time taken to see the patient, examining him, reviewing the chart and medications, and plan for care was [address] Linda Wilkins 08/15/2025 The patient was seen and examined in medical floor He is status post bilateral ankle ulcers debridement and biopsy Complains of pain in the ankles Denies any other significant symptoms He remains hemodynamically stable and afebrile Other system examination unremarkable Awaiting pathology and Gram stain of the biopsies Agree with assessment plan as outlined above by Faith Sanders PA-C and take the full responsibility in the hospital Total time taken to see the patient, examining him, reviewing the medications and charts and also planning care [address] Linda Wilkins 08/16/2025 The patient was seen and examined in medical floor He has been stable following the I&D and biopsy of the ankles The results are negative so far Complains some pain in the ankles but otherwise remains stable His chart, medications and investigation results were discussed with him and appropriate plan was documented as above Agree with assessment and plan as outlined by Jeanna Ahmadi PA-C and take the full responsibility of care in the hospital I spent a total of 10 minutes examining the patient, planning care and going over the procedure results DR Linda Wilkins 08/17/2025 The patient was seen and examined in medical floor he has been complaining of increasing pain in the ankles but otherwise remains unremarkable Pain medications has been adjusted as by the PA His systemic examination remained unremarkable He will be getting antibiotic as per recommendation from the ID and also current sensitivity and culture Has been awaiting to be placed Agree with assessment and plan as outlined above by Jeanna Ahmadi PA-C and take the full responsibility of care in the hospital I spent a total of 10 minutes examining the patient going over the medications and chart Dr Linda Wilkins Subjective Pt seen at bedside. Has dressings intact to ankles. Has pain to right greater than left ankle but improving. Denies any new signs of infection. Tolerating diet, no new complaints. Had a productive discussion about reducing PRN IV pain medications, preparing dispo for home. Has a housing contract to sign on 08/20 so discussed logistics of that today. Review of Systems Review of Systems: At least ten systems reviewed and negative except as noted in the HPI. Physical Exam Physical Exam: Gen: WD/WN, NAD, resting in bed, A&Ox3 HEENT: Normocephalic, atraumatic, mucous membranes moist Lung: Clear to Auscultation bilaterally Heart: Regular rate, regular rhythm Abdomen: Soft, NT, ND +BS x 4 Extremities: + bilateral hyperkeratotic venous stasis changes with ulceration to R medial and lateral malleolar area and ulcer to medial L malleolar area, no surrounding erythema or drainage, dressings in place Skin: Warm, no rash Results & Data Results & Data Vital Signs (Past 12 Hours) Vital Signs Temp Pulse Resp BP Pulse Ox O2 Del Method 08/17/25 07:22 60 18 96 Room Air 08/17/25 07:04 36.6 C 76 18 128/76 94 Room Air 08/16/25 20:38 36.8 C 86 18 119/76 97 Room Air Laboratory Results Short CBC 08/17/25 Range/Units 10:17 WBC 4.13 L (4.8-10.8) K/ul Hgb 11.3 L (14.0-18.0) g/dL Hct 34.5 L (42.0-52.0) % Plt Count 181 (130-400) K/uL [facility] 08/17/25 10:17 Sodium 136 Potassium 3.7 Chloride 100 Carbon Dioxide 30 BUN 28 H Creatinine 0.99 Glucose 171 H Calcium 9.4 Diagnostic Findings Chest X-Ray 08/07/25 09:52 XR chest 1V portable HISTORY: 50 years-old Male Sepsis COMPARISON: 525 TECHNIQUE: AP view of the chest FINDINGS: Cardiac silhouette is upper limits of normal in size. Right IJ Vddkow-r-Iqnz catheter is unchanged. Pulmonary vascular congestion with interstitial coarsening. No pneumothorax or large pleural effusion. Mild hazy left basilar opacities are new from prior. Subacute to chronic posterior left rib fractures appear new from prior. Degenerative changes of the shoulders and spine. IMPRESSION: 1. Cardiomegaly with pulmonary vascular congestion. 2. Mild hazy left basilar opacities may represent atelectasis versus pneumonitis. ACT 112: Negative or not required by law. The above report was generated using voice recognition software. It may contain grammatical, syntax or spelling errors. Electronically signed by: Dante Cavazos M.D. 08/07/2025 11:14 AM Abdomen/Pelvis CT 08/07/25 10:[address] WITH IV CONTRAST CT DOSE: 1552.28 mGy.cm HISTORY: Acute right lower quadrant abdominal pain RLQ abd pain TECHNIQUE: Multiaxial CT images of the abdomen and pelvis were performed following the IV administration of 93 cc of Optiray, A dose lowering technique was utilized adhering to the principles of ALARA. COMPARISON STUDY: Chest CT 05/13/2019 FINDINGS: Bibasilar groundglass opacities with intralobular septal thickening has progressed from 2019. Bronchial wall thickening with mucous plugging. There is no pneumatosis or pneumoperitoneum. The spleen is enlarged measuring up to 19 cm, mildly increased in size from prior. Unremarkable adrenal glands and gallbladder. Hepatic steatosis. Patency of the hepatic and portal veins. There is mild inflammatory stranding involving the uncinate process pancreas and pancreaticoduodenal groove. Nonspecific bilateral perinephric stranding. 5 mm nonobstructing calculus of the mid pole right kidney. No ureteral calculi or hydronephrosis. Partially decompressed urinary bladder. Atherosclerosis of the aorta with high-grade stenosis of the infrarenal segment. Additional prominent calcifications are noted in the IVC, left renal and bilateral iliac veins suggestive of chronic thrombi. Pathologically enlarged lower iliac chain lymph nodes could a 2.5 x 1.5 cm lymph node on the left, image 339 and a 3.0 x 1.2 cm lymph node on the right, image 334. A 2.7 x 2.2 cm right inguinal chain lymph node is seen on image 405. No bowel obstruction or bowel wall thickening. Mild colonic fecal retention. Normal appendix. No acute fracture. IMPRESSION: 1. Mild inflammatory stranding adjacent to the uncinate process pancreas and pancreaticoduodenal groove suspicious for mild acute pancreatitis versus duodenitis. Correlate with serum lipase. 2. Normal appendix. 3. Splenomegaly redemonstrated, slightly increased in size compared to the 2019 comparison exam. 4. Nonspecific pathologically enlarged iliac and inguinal chain lymph nodes could be correlated with tissue sampling to exclude a lymphoproliferative process. 5. Atherosclerosis with high-grade infrarenal abdominal aortic stenosis. ACT 112: Negative or not required by law. The above report was generated using voice recognition software. It may contain grammatical, syntax or spelling errors. Electronically signed by: Dante Cavazos M.D. 08/07/2025 12:35 PM Ankle Brachial Index 08/08/25 11:29 US ankle/brachial index ltd HISTORY: 50 years-old Male aortoiliac disease, venous ulcers, please add TBI. COMPARISON: Arterial Doppler 08/02/2025 TECHNIQUE: Segmental pressures of the lower pelvis were obtained FINDINGS: RIGHT: Brachial-106 (index); dorsalis pedis-114 (0.98); posterior tibial-111 (0.96); toe-88 (0.76); JAYDE-0.98; TBI-0.76. LEFT: Brachial-116 (index); dorsalis pedis-103 (0.89); posterior tibial-115 (0.99); toe-81 (0.70); JAYDE-0.99; TBI-0.70. IMPRESSION: Normal ABIs bilaterally. ACT 112: Negative or not required by law. The above report was generated using voice recognition software. It may contain grammatical, syntax or spelling errors. Electronically signed by: Dante Cavazos M.D. 08/08/2025 3:28 PM (8) Cirrhosis Ascites presence: unspecified Hepatic cirrhosis type: alcoholic cirrhosis Qualified Code(s): K70.30 - Alcoholic cirrhosis of liver without ascites (9) Type 2 diabetes mellitus Diabetes mellitus complication status: with other specified complication Diabetes mellitus shelter insulin use: unspecified terminal press operator insulin use status Qualified Code(s): E11.69 - Type 2 diabetes mellitus with other specified complication (10) Chronic deep vein thrombosis (DVT) Affected thrombotic vein of extremity: unspecified vein of extremity DVT location: lower extremity Laterality: right Qualified Code(s): I82.501 - Chronic embolism and thrombosis of unspecified deep veins of right lower extremity
[2025-08-17] MEDS ORDERED: UMECLIDINIUM BROMIDE 62.5MCG/BLISTER 7 PUFFS/INHALER INH SCH (09:00)
[2025-08-17] MEDS ORDERED: FLUTICASONE/VILANTEROL 100/25MCG 14 PUFFS/INHALER INH SCH (09:00)
[2025-08-17 10:36] LABS: Hematocrit (blood only) 34.5 % (42.0-52.0); Hemoglobin 11.3 g/dL (14.0-18.0); Mean Corpuscular Hemoglobin 27.0 pg (25.0-34.0); Mean Corpuscular Volume 82.5 fL (80.0-100.0); Platelet Count 181 K/uL (130-400); RDW Standard Deviation 48.2 fL (36.4-46.3); Red Blood Count 4.18 M/uL (4.70-6.10); White Blood Count 4.13 K/ul (4.8-10.8)
[2025-08-17 10:53] LABS: Anion Gap 6.0 (3-11); Blood Urea Nitrogen 28.0 mg/dl (6-23); Calcium 9.4 mg/dl (8.6-10.3); Carbon Dioxide 30.0 mmol/L (21-32); Chloride 100.0 mmol/L (98-107); Creatinine Clr Calc Pharmacy 102.9 ml/min; Glucose 171.0 mg/dl (70-99(Fasting)); Magnesium 2.0 mg/dl (1.7-2.4); Potassium 3.7 mmol/L (3.5-5.1); Sodium 136.0 mmol/L (136-145)
[2025-08-17] MEDS: MoRPHine SULFATE 4 MG/ML 1 ML CARP\\VIAL IV PRN (11:05)
[2025-08-17] MEDS: ONDANSETRON INJ 2 MG/ML 2 ML VIAL IV PRN (19:42)
[2025-08-18 06:24] LABS: Hematocrit (blood only) 36.8 % (42.0-52.0); Hemoglobin 11.6 g/dL (14.0-18.0); Mean Corpuscular Hemoglobin 26.1 pg (25.0-34.0); Mean Corpuscular Volume 82.7 fL (80.0-100.0); Platelet Count 181 K/uL (130-400); RDW Standard Deviation 48.1 fL (36.4-46.3); Red Blood Count 4.45 M/uL (4.70-6.10); White Blood Count 4.21 K/ul (4.8-10.8)
[2025-08-18 06:50] LABS: Anion Gap 8.0 (3-11); Blood Urea Nitrogen 27.0 mg/dl (6-23); Calcium 9.2 mg/dl (8.6-10.3); Carbon Dioxide 30.0 mmol/L (21-32); Chloride 101.0 mmol/L (98-107); Creatinine Clr Calc Pharmacy 94.3 ml/min; Glucose 159.0 mg/dl (70-99(Fasting)); Potassium 3.7 mmol/L (3.5-5.1); Sodium 139.0 mmol/L (136-145)
--- NOTE | 2025-08-18 08:30 | Hospitalist Progress Note ---
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 Pt admitted 08/01-08/05 for wound infection. D/C on oral antibiotics. Endorsed worsening pain to R ankle and worsening foul smell. He also c/o cold sweats, nausea and vomiting. He also c/o increased SOB. Recurrent cellulitis of lower extremity Chronic venous stasis ulcers in BLE MRI on 08/01 showed no osteomyelitis Wound culture on 08/01: serratia marcescens, klebsiella oxytoc and Stenotrophomonas maltophilia Failed PO abx regimen and represented for worsening pain, purulence in R foot s/p Ankle Ulcers Debridement with Biopsy(Bilateral) by Dr. La on 08/14 -> bone biopsy consistent with stasis dermatitis ID consulted for abx guidance-->recommended Levaquin, recommended for 2 weeks with EOT 08/20 Per discussion with pharmacist, will add Keflex for add'l MSSA coverage at this time Repeat wound culture from podiatry growing preliminary MSSA Repeat blood cultures negative PT/OT recommending return home Continue PRN oxycodone and morphine COPD No concern for exacerbation Continue inhalers Diabetes A1C 6.7 on 06/20/25 Hold home Ozempic Continue Lantus 16 units nightly (increased due to high BSGs) BSG ACHS and SSI while inpatient Hypertension Continue aldactone, lasix, losartan Cirrhosis History alcoholic cirrhosis Has been abstaining from alcohol Continue lasix and aldactone Hyperlipidemia Continue statin Chronic DVT Continue eliquis Chronic pain Continue chronic oxy, lyrica Chronic anemia Hemoglobin stable around 11-12 Monitor Anxiety Continue buspar and prozac Tobacco abuse Nicotine patch DVT Prophylaxis: On Eliquis Code Status: FULL CODE PCP: Willa Soto Disposition: discharge on 08/20 after antibiotics Patient seen in collaboration with Dr. Wilkins. Please see addendum. I spent a total of 60 minutes coordinating, documenting and providing care for this patient excluding time spent in the performance of separately billed services or time spent by another provider/QHP. Admission and Anticipated Discharge Date Admission Date: August 07, 2025 Supervising Physician Co-Signing Physician Notes 08/14/2025 The patient was seen and examined in medical floor He will have I&D and also biopsy from his ankle by the rn ortho today Denies any other significant symptoms except pain in the ankles On examination Lying on bed without any acute distress Remains hemodynamically stable and is afebrile Chest was clear to auscultation bilaterally HeartS1-S2 regular Abdomenbenign Extremitiesbilateral swelling of the ankles with ankle ulcers/wound His labs, medications and imaging studies reviewed He will have bilateral ankle ulcers debridement with biopsy this afternoon His other significant medical conditions remained stable as above Agree with assessment plan as outlined above by Yanira Sims PA-C and take the full responsibility of care in the hospital Total time taken to see the patient, examining him, reviewing the chart and medications, and plan for care was [address] Linda Wilkins 08/15/2025 The patient was seen and examined in medical floor He is status post bilateral ankle ulcers debridement and biopsy Complains of pain in the ankles Denies any other significant symptoms He remains hemodynamically stable and afebrile Other system examination unremarkable Awaiting pathology and Gram stain of the biopsies Agree with assessment plan as outlined above by Faith Sanders PA-C and take the full responsibility in the hospital Total time taken to see the patient, examining him, reviewing the medications and charts and also planning care [address] Linda Wilkins 08/16/2025 The patient was seen and examined in medical floor He has been stable following the I&D and biopsy of the ankles The results are negative so far Complains some pain in the ankles but otherwise remains stable His chart, medications and investigation results were discussed with him and appropriate plan was documented as above Agree with assessment and plan as outlined by Jeanna Ahmadi PA-C and take the full responsibility of care in the hospital I spent a total of 10 minutes examining the patient, planning care and going over the procedure results DR Linda Wilkins 08/17/2025 The patient was seen and examined in medical floor he has been complaining of increasing pain in the ankles but otherwise remains unremarkable Pain medications has been adjusted as by the PA His systemic examination remained unremarkable He will be getting antibiotic as per recommendation from the ID and also current sensitivity and culture Has been awaiting to be placed Agree with assessment and plan as outlined above by Jeanna Ahmadi PA-C and take the full responsibility of care in the hospital I spent a total of 10 minutes examining the patient going over the medications and chart Dr Linda Wilkins 08/18/2025 Patient was seen and examined in medical floor He has been stable without any significant symptoms except pain in the feet His examination remained otherwise unremarkable He will be given intravenous antibiotic as planned for the ongoing infection in the ankle Likely discharge on Monday Agree with assessment plan as documented Above by YNES Lacy and take the full responsibility of care in the hospital . I spent a total of 10 minutes examining the patient, reviewing the chart and medications and plan of care as above. DR Linda Wilkins Subjective Patient seen resting in bed Reports ongoing pain in right ankle, but controlled Has some upset stomach today Denies dizziness, chest pain, SOB, N/V/D Review of Systems Review of Systems: All systems reviewed & are unremarkable except as noted in HPI & below Physical Exam Physical Exam: General/Psych: WD/WN, sitting up in bed, NAD, conversing easily Head: normocephalic, atraumatic Eyes: normal inspection, PERRL, conjunctivae pink Neck: normal visual inspection, trachea midline Respiratory: normal respiratory effort, lungs clear to auscultation, no wheeze/rales/rhonchi, no accessory muscle use Cardiovascular: regular rate and rhythm, no murmur/rub/gallop Extremities: no cyanosis or clubbing, normal peripheral pulses, no BLE edema Abdomen/GI: normal bowel sounds, soft, nontender Neurologic/MSK: A+Ox3, motor strength 5/5, moves all extremities Skin: no rashes, chronic venous stasis changes of BLE, multiple wounds to bilateral legs with dressings c/d/i Results & Data Results & Data Vital Signs (Past 12 Hours) Vital Signs Temp Pulse Resp BP Pulse Ox O2 Del Method 08/18/25 08:00 36.7 C 73 16 120/77 94 Room Air 08/18/25 07:30 70 18 96 Room Air 08/17/25 21:54 36.7 C 72 18 112/72 96 Room Air Laboratory Results Short CBC 08/18/25 Range/Units 05:41 WBC 4.21 L (4.8-10.8) K/ul Hgb 11.6 L (14.0-18.0) g/dL Hct 36.8 L (42.0-52.0) % Plt Count 181 (130-400) K/uL BMP 08/18/25 05:41 Sodium 139 Potassium 3.7 Chloride 101 Carbon Dioxide 30 BUN 27 H Creatinine 1.08 Glucose 159 H Calcium 9.2 I have independently reviewed and interpreted patient's labs including CBC and BMP. Medications Administered Current Inpatient Medications Acetaminophen (Acetaminophen 325 Mg Tab) 650 mg PO Q4H PRN PRN Reason: mild pain 1-3/fever Stop: 09/06/25 16:26 Al Hydrox/Mg Hydrox/Simethicone (Aluminum/Magnesium Susp 30 Ml Udc) 30 ml PO Q6H PRN PRN Reason: Dyspepsia Stop: 09/06/25 16:26 Last Admin: 08/10/25 16:19 Dose: 30 ml Albuterol (Albut/Ipratrop 3mg/0.5mg Neb 3 Ml Vial) 3 ml NEB Q6RWA [facility]; Protocol Stop: 09/06/25 18:59 Last Admin: 08/18/25 12:42 Dose: 3 ml Apixaban (Apixaban 5 Mg Tablet) 5 mg PO BID [facility] Stop: 09/06/25 20:59 Last Admin: 08/18/25 08:35 Dose: 5 mg Atorvastatin Calcium (Atorvastatin 40 Mg Tab) 40 mg PO DAILY [facility] Stop: 09/07/25 08:59 Last Admin: 08/18/25 08:38 Dose: 40 mg Buspirone HCl (Buspirone 15 Mg Tab) 15 mg PO BID [facility] Stop: 09/06/25 20:59 Last Admin: 08/18/25 08:37 Dose: 15 mg Cephalexin HCl (Cephalexin 500 Mg Cap) 500 mg PO QID [facility] Stop: 08/24/25 13:44 Last Admin: 08/18/25 12:34 Dose: 500 mg Collagenase (Collagenase Oint 30 Gm Tube) 1 appln EXT DAILY [facility] Stop: 09/08/25 08:59 Last Admin: 08/18/25 08:47 Dose: Not Given Dextrose (Dextrose 50% 50 Ml Syringe) 25 - 50 ml IV UD PRN; Protocol PRN Reason: Hypoglycemia Protocol Stop: 09/06/25 16:26 Diphenhydramine HCl (Diphenhydramine 50 Mg/Ml Vial) 25 mg IV Q8H PRN PRN Reason: itching Stop: 09/06/25 18:31 Last Admin: 08/17/25 13:12 Dose: 25 mg Docusate Sodium (Docusate Sodium 100 Mg Cap) 100 mg PO BID [facility] Stop: 09/06/25 20:59 Last Admin: 08/18/25 08:45 Dose: 100 mg Fluoxetine HCl (Fluoxetine Hcl 20 Mg Cap) 20 mg PO HS [facility] Stop: 09/06/25 20:59 Last Admin: 08/17/25 19:41 Dose: 20 mg Fluticasone/Vilanterol (Fluticasone/Vilanterol 200/25mcg 14 Puffs/Inhaler) 1 puffs INH DAILY [facility] Stop: 09/15/25 08:59 Last Admin: 08/18/25 08:36 Dose: 1 puffs Folic Acid (Folic Acid 1 Mg Tab) 1 mg PO QAM [facility] Stop: 09/07/25 08:59 Last Admin: 08/18/25 08:36 Dose: 1 mg Furosemide (Furosemide 80 Mg Tab) 80 mg PO BID17 [facility] Stop: 09/06/25 16:59 Last Admin: 08/18/25 08:34 Dose: 80 mg Glucagon (Glucagon For Inj 1 Mg Vial) 1 mg SQ UD PRN; Protocol PRN Reason: Hypoglycemia Protocol Stop: 09/06/25 16:26 Glucose (Glucose 40% Gel 15 Gm Tube) 15 - 30 gm PO UD PRN; Protocol PRN Reason: Hypoglycemia Protocol Stop: 09/06/25 16:26 Glucose (Glucose 10 Tab/Tube) 4 - 8 tab PO UD PRN; Protocol PRN Reason: Hypoglycemia Protocol Stop: 09/06/25 16:26 Heparin Sodium (Porcine) (Heparin 100 Unit/Ml 5ml Flush) 5 ml FLUSH PRN PRN PRN Reason: Flush Stop: 09/07/25 03:06 Last Admin: 08/17/25 09:53 Dose: 5 ml Levofloxacin/Dextrose (Levaquin/D5w) 750 mg in 150 mls @ 100 mls/hr IV Q24H [facility]; Protocol Stop: 08/20/25 23:59 Last Infusion: 08/18/25 14:02 Dose: Infused Insulin Aspart (Insulin Aspart Per Unit Charge) 0 units SC ACHS [facility] Stop: 09/13/25 05:59 Last Admin: 08/18/25 12:33 Dose: 5 units Insulin Glargine (Lantus Per Unit Charge) 16 units SQ HS [facility] Stop: 09/11/25 20:59 Last Admin: 08/17/25 21:01 Dose: 16 units Lactic Acid (Ammonium Lactate 12% Lotion 225 Gm Btl) 5 gm EXT BID [facility] Stop: 09/06/25 20:59 Last Admin: 08/18/25 08:34 Dose: 5 gm Lactobacillus Acidophilus (Advanced Probiotic 625 Mg Capsule) 1,250 mg PO DAILY [facility] Stop: 09/07/25 08:59 Last Admin: 08/18/25 08:36 Dose: 1,250 mg Losartan Potassium (Losartan Potassium 25 Mg Tab) 25 mg PO DAILY [facility] Stop: 09/07/25 08:59 Last Admin: 08/18/25 08:33 Dose: 25 mg Magnesium Hydroxide (Magnesium Hydroxide Susp 30 Ml Udc) 30 ml PO Q6H PRN PRN Reason: Constipation Stop: 09/06/25 16:26 Last Admin: 08/15/25 18:22 Dose: 30 ml Melatonin (Melatonin 3 Mg Tab) 6 mg PO HS PRN PRN Reason: Sleep Stop: 09/06/25 20:59 Last Admin: 08/17/25 19:42 Dose: 6 mg Miscellaneous (Carbohydrates For Hypoglycemia ) 15 - 30 gm PO UD PRN PRN Reason: Hypoglycemia Protocol Stop: 09/06/25 16:26 Miscellaneous (Remove Nicoderm Patch) 1 each N/A DAILY@0859 [facility] Stop: 09/07/25 08:58 Last Admin: 08/18/25 08:36 Dose: 1 each Montelukast Sodium (Montelukast Sodium 10 Mg Tablet) 10 mg PO DAILY [facility] Stop: 09/07/25 08:59 Last Admin: 08/18/25 08:37 Dose: 10 mg Morphine Sulfate (Morphine Sulfate 4 Mg/Ml 1 Ml Carp\Vial) 3 mg IV DAILY PRN PRN Reason: Severe Pain (Scale 7, 8, 9,10) Stop: 08/21/25 16:26 Last Admin: 08/18/25 12:39 Dose: 3 mg Mupirocin (Mupirocin 2% Oint 22 Gm Tube) 1 appln NA BID [facility] Stop: 09/06/25 20:59 Last Admin: 08/18/25 08:36 Dose: 1 appln Nicotine (Nicotine 14 Mg/24 Hr Patch) 1 patch TD QAM [facility] Stop: 09/06/25 16:59 Last Admin: 08/18/25 08:35 Dose: 1 patch Ondansetron HCl (Ondansetron Inj 2 Mg/Ml 2 Ml Vial) 4 mg IV Q6H PRN PRN Reason: Nausea Stop: 09/06/25 16:26 Last Admin: 08/17/25 19:42 Dose: 4 mg Oxycodone HCl (Oxycodone Hcl Ir 5 Mg Tab (Immediate Release)) 12.5 mg PO Q4H PRN PRN Reason: Moderate Pain (Scale 4, 5, 6) Stop: 08/28/25 09:59 Last Admin: 08/18/25 13:42 Dose: 12.5 mg Pantoprazole Sodium (Pantoprazole 40 Mg Tab) 40 mg PO BID [facility]; Protocol Stop: 09/06/25 20:59 Last Admin: 08/18/25 08:33 Dose: 40 mg Polyethylene Glycol (Polyethylene (Miralax) 17 Gm Pack) 17 gm PO DAILY PRN PRN Reason: Constipation Stop: 09/06/25 16:26 Last Admin: 08/18/25 08:31 Dose: 17 gm Pregabalin (Pregabalin 150 Mg Cap) 150 mg PO TID [facility] Stop: 09/06/25 16:44 Last Admin: 08/18/25 13:45 Dose: 150 mg Spironolactone (Spironolactone 100 Mg Tab) 100 mg PO DAILY [facility] Stop: 09/07/25 08:59 Last Admin: 08/18/25 08:32 Dose: 100 mg Umeclidinium [place] (Umeclidinium [place] 62.5mcg/Blister 7 Puffs/Inhaler) 1 puffs INH QAM [facility] Stop: 09/08/25 13:44 Last Admin: 08/18/25 08:34 Dose: 1 puffs (8) Cirrhosis Ascites presence: unspecified Hepatic cirrhosis type: alcoholic cirrhosis Qualified Code(s): K70.30 - Alcoholic cirrhosis of liver without ascites (9) Type 2 diabetes mellitus Diabetes mellitus complication status: with other specified complication Diabetes mellitus group home insulin use: unspecified group home insulin use status Qualified Code(s): E11.69 - Type 2 diabetes mellitus with other specified complication (10) Chronic deep vein thrombosis (DVT) Affected thrombotic vein of extremity: unspecified vein of extremity DVT location: lower extremity Laterality: right Qualified Code(s): I82.501 - Chronic embolism and thrombosis of unspecified deep veins of right lower extremity
--- NOTE | 2025-08-18 21:36 | Podiatry Progress Note ---
Date of Service August 18, 2025 Assessment & Plan (1) Peripheral arterial disease: (2) Cellulitis of right lower extremity: (3) Cellulitis of left leg: (4) Chronic ulcer of left ankle with fat layer exposed: (5) Chronic ulcer of right ankle with fat layer exposed: Plan Patient examined and evaluated. 1 day s/p b/l ankle ulcer debridements/biopsies - Surgical intervention was congruous with clinical exam findings; now wounds continue to look healthy - Can continue with daily dressing changes, optifoam gauze with betadine or similar. - Pain likely amplified now by chronic narcotic use; pain currently out of proportion to surgical intervention, but also not limiting appetite, ADLs, etc. - Can d/c to inpatient rehab or other plans whenever stable per medicine. Ok from our service,. - Will benefit from continued wound care, likely at [facility] Wound clinic, though we would follow-up with him within 1-2 weeks outpatient if he cannot get in there. - Will sign off for now, with nursing and/or wound care monitoring. Please reconsult as necessary. Admission and Anticipated Discharge Date Admission Date: August 07, 2025 Subjective Patient seen at bedside. Doing well. Decreased pain. Believes wounds are significantly improved since debridement. Now, pending discharge, though unsure if it's home or to rehab at this point. Review of Systems Constitutional: + fever and + weakness; no chills Eyes: + problem reported Ear, Nose, Mouth, Throat: no problem reported Respiratory: + cough, + chest congestion and + wheezi ng Cardiovascular: + edema and + claudication Gastrointestinal: no problem reported Genitourinary: no problem reported Musculoskeletal: no problem reported Integumentary: + non-healing lesions, + changing lesion s, + skin ulcer, + wounds and + erythema Worsening odor, worse on the right than left Neurologic: + generalized weakness and + problem rep orted Psychiatric: no problem reported Endocrine: no problem reported Physical Exam Physical Exam: Lower extremity focused exam: DP/PT pulses nonpalpable. Advanced trophic changes noted to the bilateral lower extremity from mid tibia distally. Skin is thin and is extensively scarred to the anterior leg. There is evidence of venous stasis and peripheral arterial insufficiency. Bilateral lower extremity is warm to the touch with wounds noted to bilateral ankle ulcerations still noted. The wound beds are currently without evidence of acute infection and the wound beds are 100% granular. Chronic skin changes, consistent with his vascular disease, remain. Constitutional: WD/WN, vitals as above + ill appearing and + obese Eyes: PERRL, conjunctivae normal, anicteric sclerae ENMT: external ear and nose normal, oropharynx normal Mouth: + poor dentition Neck: trachea midline, no thyromegaly normal visual inspection Respiratory: normal respiratory effort; no respiratory distress Cardiovascular: Rate/Rhythm: regular rate and regular rhythm Vessels: + pos terior tibial pulses abnormal and + dorsalis pedis pulses abnormal Chest (Breasts): Chest: normal inspection of chest Gastrointestinal (Abdomen): Inspection/Auscultation: abdomen normal to inspection Percussion/Palpation: + abdomen tender and abdomen soft Musculoskeletal: no cyanosis or clubbing, extremities motor strength 5/5 Head/Neck/Chest: normocephalic and head atraumatic Extremities: extremities normal to inspection Skin: + skin tightening, + wound, + skin atrop hy, + erythema, + scar and + nails dystrophic; + abnormal skin elasticity Neurologic: awake; no focal motor deficits Psychiatric: A+Ox3, euthymic affect Results & Data Results & Data Vital Signs (Past 12 Hours) Vital Signs Temp Pulse Pulse Resp BP Pulse Ox O2 Del Method 08/18/25 19:45 71 16 97 Room Air 08/18/25 15:04 36.7 C 86 16 112/74 96 Room Air 08/18/25 12:43 70 18 95 Room Air
[2025-08-19 07:53] LABS: Hematocrit (blood only) 35.7 % (42.0-52.0); Hemoglobin 11.7 g/dL (14.0-18.0); Mean Corpuscular Hemoglobin 27.0 pg (25.0-34.0); Mean Corpuscular Volume 82.3 fL (80.0-100.0); Platelet Count 189 K/uL (130-400); RDW Standard Deviation 48.3 fL (36.4-46.3); Red Blood Count 4.34 M/uL (4.70-6.10); White Blood Count 4.51 K/ul (4.8-10.8)
[2025-08-19 08:15] LABS: Anion Gap 8.0 (3-11); Blood Urea Nitrogen 33.0 mg/dl (6-23); Calcium 9.0 mg/dl (8.6-10.3); Carbon Dioxide 29.0 mmol/L (21-32); Chloride 100.0 mmol/L (98-107); Creatinine Clr Calc Pharmacy 98.0 ml/min; Glucose 191.0 mg/dl (70-99(Fasting)); Potassium 3.6 mmol/L (3.5-5.1); Sodium 137.0 mmol/L (136-145)
--- NOTE | 2025-08-19 11:18 | Hospitalist Progress Note ---
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 Pt admitted 08/01-08/05 for wound infection. D/C on oral antibiotics. Endorsed worsening pain to R ankle and worsening foul smell. He also c/o cold sweats, nausea and vomiting. He also c/o increased SOB. Recurrent cellulitis of lower extremity Chronic venous stasis ulcers in BLE MRI on 08/01 showed no osteomyelitis Wound culture on 08/01: serratia marcescens, klebsiella oxytoc and Stenotrophomonas maltophilia Failed PO abx regimen and represented for worsening pain, purulence in R foot s/p Ankle Ulcers Debridement with Biopsy(Bilateral) by Dr. La on 08/14 -> bone biopsy consistent with stasis dermatitis ID consulted for abx guidance-->recommended Levaquin, recommended for 2 weeks with EOT 08/20 Repeat wound culture from podiatry growing preliminary MSSA-> added Keflex per Pharmacy Repeat blood cultures negative PT/OT recommending return home Continue PRN oxycodone and morphine COPD No concern for exacerbation Continue inhalers Diabetes A1C 6.7 on 06/20/25 Hold home Ozempic Continue Lantus 16 units nightly (increased due to high BSGs) BSG ACHS and SSI while inpatient Hypertension Continue aldactone, lasix, losartan Cirrhosis History alcoholic cirrhosis Has been abstaining from alcohol Continue lasix and aldactone Hyperlipidemia Continue statin Chronic DVT Continue eliquis Chronic pain Continue chronic oxy, lyrica Chronic anemia Hemoglobin stable around 11-12 Monitor Anxiety Continue buspar and prozac Tobacco abuse Nicotine patch DVT Prophylaxis: On Eliqu Code Status: FULL CODE PCP: Willa Soto Disposition: discharge on 08/20 after IV antibiotic Patient seen in collaboration with Dr. Wilkins. Please see addendum. I spent a total of 50 minutes coordinating, documenting and providing care for this patient excluding time spent in the performance of separately billed services or time spent by another provider/QHP. Admission and Anticipated Discharge Date Admission Date: August 07, 2025 Supervising Physician Co-Signing Physician Notes 08/14/2025 The patient was seen and examined in medical floor He will have I&D and also biopsy from his ankle by the health safety specialist today Denies any other significant symptoms except pain in the ankles On examination Lying on bed without any acute distress Remains hemodynamically stable and is afebrile Chest was clear to auscultation bilaterally HeartS1-S2 regular Abdomenbenign Extremitiesbilateral swelling of the ankles with ankle ulcers/wound His labs, medications and imaging studies reviewed He will have bilateral ankle ulcers debridement with biopsy this afternoon His other significant medical conditions remained stable as above Agree with assessment plan as outlined above by Yanira Sims PA-C and take the full responsibility of care in the hospital Total time taken to see the patient, examining him, reviewing the chart and medications, and plan for care was [address] Linda Wilkins 08/15/2025 The patient was seen and examined in medical floor He is status post bilateral ankle ulcers debridement and biopsy Complains of pain in the ankles Denies any other significant symptoms He remains hemodynamically stable and afebrile Other system examination unremarkable Awaiting pathology and Gram stain of the biopsies Agree with assessment plan as outlined above by Faith Sanders PA-C and take the full responsibility in the hospital Total time taken to see the patient, examining him, reviewing the medications and charts and also planning care [address] Linda Wilkins 08/16/2025 The patient was seen and examined in medical floor He has been stable following the I&D and biopsy of the ankles The results are negative so far Complains some pain in the ankles but otherwise remains stable His chart, medications and investigation results were discussed with him and appropriate plan was documented as above Agree with assessment and plan as outlined by Jeanna Ahmadi PA-C and take the full responsibility of care in the hospital I spent a total of 10 minutes examining the patient, planning care and going over the procedure results DR Linda Wilkins 08/17/2025 The patient was seen and examined in medical floor he has been complaining of increasing pain in the ankles but otherwise remains unremarkable Pain medications has been adjusted as by the PA His systemic examination remained unremarkable He will be getting antibiotic as per recommendation from the ID and also current sensitivity and culture Has been awaiting to be placed Agree with assessment and plan as outlined above by Jeanna Ahmadi PA-C and take the full responsibility of care in the hospital I spent a total of 10 minutes examining the patient going over the medications and chart Dr Linda Wilkins 08/18/2025 Patient was seen and examined in medical floor He has been stable without any significant symptoms except pain in the feet His examination remained otherwise unremarkable He will be given intravenous antibiotic as planned for the ongoing infection in the ankle Likely discharge on Monday Agree with assessment plan as documented Above by YNES Lacy and take the full responsibility of care in the hospital . I spent a total of 10 minutes examining the patient, reviewing the chart and medications and plan of care as above. DR Linda Wilkins 08/19/2025 Patient was seen and examined in medical floor His leg pain is improving and he has been able to move around Will finish the intravenous antibiotic before discharging him tomorrow He denies any other significant symptoms and remains hemodynamically stable Agree with assessment and plan as outlined above by YNES Lacy and take the full responsibility of care in the hospital I spent a total of 10 minutes seeing the patient, examining him and going over the medications and the test results Dr Linda Wilkins Subjective Patient seen resting in bed Reports pain in bilateral ankles is controlled Denies dizziness, chest pain, SOB, abdominal pain, N/V/D Review of Systems Review of Systems: All systems reviewed & are unremarkable except as noted in HPI & below Physical Exam Physical Exam: General/Psych: WD/WN, sitting up in bed, NAD, conversing easily Head: normocephalic, atraumatic Eyes: normal inspection, PERRL, conjunctivae pink Neck: normal visual inspection, trachea midline Respiratory: normal respiratory effort, lungs clear to auscultation, no wheeze/rales/rhonchi, no accessory muscle use Cardiovascular: regular rate and rhythm, no murmur/rub/gallop Extremities: no cyanosis or clubbing, normal peripheral pulses, no BLE edema Abdomen/GI: normal bowel sounds, soft, nontender Neurologic/MSK: A+Ox3, motor strength 5/5, moves all extremities Skin: no rashes, chronic venous stasis changes of BLE, multiple wounds to bilateral legs with dressings c/d/i Results & Data Results & Data Vital Signs (Past 12 Hours) Vital Signs Temp Pulse Resp BP Pulse Ox O2 Del Method 08/19/25 07:24 36.7 C 81 16 114/78 95 Room Air 08/19/25 06:58 74 18 93 Room Air Laboratory Results Short CBC 08/19/25 Range/Units 06:55 WBC 4.51 L (4.8-10.8) K/ul Hgb 11.7 L (14.0-18.0) g/dL Hct 35.7 L (42.0-52.0) % Plt Count 189 (130-400) K/uL BMP 08/19/25 06:55 Sodium 137 Potassium 3.6 Chloride 100 Carbon Dioxide 29 BUN 33 H Creatinine 1.04 Glucose 191 H Calcium 9.0 I have independently reviewed and interpreted patient's labs including CBC and BMP Medications Administered Current Inpatient Medications Acetaminophen (Acetaminophen 325 Mg Tab) 650 mg PO Q4H PRN PRN Reason: mild pain 1-3/fever Stop: 09/06/25 16:26 Al Hydrox/Mg Hydrox/Simethicone (Aluminum/Magnesium Susp 30 Ml Udc) 30 ml PO Q6H PRN PRN Reason: Dyspepsia Stop: 09/06/25 16:26 Last Admin: 08/10/25 16:19 Dose: 30 ml Albuterol (Albut/Ipratrop 3mg/0.5mg Neb 3 Ml Vial) 3 ml NEB Q6RWA [facility]; Protocol Stop: 09/06/25 18:59 Last Admin: 08/19/25 06:56 Dose: 3 ml Apixaban (Apixaban 5 Mg Tablet) 5 mg PO BID [facility] Stop: 09/06/25 20:59 Last Admin: 08/19/25 08:18 Dose: 5 mg Atorvastatin Calcium (Atorvastatin 40 Mg Tab) 40 mg PO DAILY [facility] Stop: 09/07/25 08:59 Last Admin: 08/19/25 08:13 Dose: 40 mg Buspirone HCl (Buspirone 15 Mg Tab) 15 mg PO BID [facility] Stop: 09/06/25 20:59 Last Admin: 08/19/25 08:15 Dose: 15 mg Cephalexin HCl (Cephalexin 500 Mg Cap) 500 mg PO QID [facility] Stop: 08/24/25 13:44 Last Admin: 08/19/25 08:13 Dose: 500 mg Collagenase (Collagenase Oint 30 Gm Tube) 1 appln EXT DAILY [facility] Stop: 09/08/25 08:59 Last Admin: 08/19/25 08:19 Dose: 1 appln Dextrose (Dextrose 50% 50 Ml Syringe) 25 - 50 ml IV UD PRN; Protocol PRN Reason: Hypoglycemia Protocol Stop: 09/06/25 16:26 Diphenhydramine HCl (Diphenhydramine 50 Mg/Ml Vial) 25 mg IV Q8H PRN PRN Reason: itching Stop: 09/06/25 18:31 Last Admin: 08/19/25 03:51 Dose: 25 mg Docusate Sodium (Docusate Sodium 100 Mg Cap) 100 mg PO BID [facility] Stop: 09/06/25 20:59 Last Admin: 08/19/25 08:21 Dose: 100 mg Fluoxetine HCl (Fluoxetine Hcl 20 Mg Cap) 20 mg PO HS [facility] Stop: 09/06/25 20:59 Last Admin: 08/18/25 20:14 Dose: 20 mg Fluticasone/Vilanterol (Fluticasone/Vilanterol 200/25mcg 14 Puffs/Inhaler) 1 puffs INH DAILY [facility] Stop: 09/15/25 08:59 Last Admin: 08/19/25 08:17 Dose: 1 puffs Folic Acid (Folic Acid 1 Mg Tab) 1 mg PO QAM [facility] Stop: 09/07/25 08:59 Last Admin: 08/19/25 08:14 Dose: 1 mg Furosemide (Furosemide 80 Mg Tab) 80 mg PO [id number] [facility] Stop: 09/06/25 16:59 Last Admin: 08/19/25 08:14 Dose: 80 mg Glucagon (Glucagon For Inj 1 Mg Vial) 1 mg SQ UD PRN; Protocol PRN Reason: Hypoglycemia Protocol Stop: 09/06/25 16:26 Glucose (Glucose 40% Gel 15 Gm Tube) 15 - 30 gm PO UD PRN; Protocol PRN Reason: Hypoglycemia Protocol Stop: 09/06/25 16:26 Glucose (Glucose 10 Tab/Tube) 4 - 8 tab PO UD PRN; Protocol PRN Reason: Hypoglycemia Protocol Stop: 09/06/25 16:26 Heparin Sodium (Porcine) (Heparin 100 Unit/Ml 5ml Flush) 5 ml FLUSH PRN PRN PRN Reason: Flush Stop: 09/07/25 03:06 Last Admin: 08/18/25 20:16 Dose: 5 ml Levofloxacin/Dextrose (Levaquin/D5w) 750 mg in 150 mls @ 100 mls/hr IV Q24H [facility]; Protocol Stop: 08/20/25 23:59 Last Infusion: 08/18/25 14:02 Dose: Infused Insulin Aspart (Insulin Aspart Per Unit Charge) 0 units SC ACHS [facility] Stop: 09/13/25 05:59 Last Admin: 08/19/25 09:14 Dose: 6 units Insulin Glargine (Lantus Per Unit Charge) 16 units SQ HS [facility] Stop: 09/11/25 20:59 Last Admin: 08/18/25 20:30 Dose: 16 units Lactic Acid (Ammonium Lactate 12% Lotion 225 Gm Btl) 5 gm EXT BID [facility] Stop: 09/06/25 20:59 Last Admin: 08/19/25 08:19 Dose: 5 gm Lactobacillus Acidophilus (Advanced Probiotic 625 Mg Capsule) 1,250 mg PO DAILY [facility] Stop: 09/07/25 08:59 Last Admin: 08/19/25 08:15 Dose: 1,250 mg Losartan Potassium (Losartan Potassium 25 Mg Tab) 25 mg PO DAILY [facility] Stop: 09/07/25 08:59 Last Admin: 08/19/25 08:14 Dose: 25 mg Magnesium Hydroxide (Magnesium Hydroxide Susp 30 Ml Udc) 30 ml PO Q6H PRN PRN Reason: Constipation Stop: 09/06/25 16:26 Last Admin: 08/15/25 18:22 Dose: 30 ml Melatonin (Melatonin 3 Mg Tab) 6 mg PO HS PRN PRN Reason: Sleep Stop: 09/06/25 20:59 Last Admin: 08/18/25 20:15 Dose: 6 mg Miscellaneous (Carbohydrates For Hypoglycemia ) 15 - 30 gm PO UD PRN PRN Reason: Hypoglycemia Protocol Stop: 09/06/25 16:26 Miscellaneous (Remove Nicoderm Patch) 1 each N/A DAILY@0859 [facility] Stop: 09/07/25 08:58 Last Admin: 08/19/25 08:18 Dose: 1 each Montelukast Sodium (Montelukast Sodium 10 Mg Tablet) 10 mg PO DAILY [facility] Stop: 09/07/25 08:59 Last Admin: 08/19/25 08:14 Dose: 10 mg Morphine Sulfate (Morphine Sulfate 4 Mg/Ml 1 Ml Carp\Vial) 3 mg IV DAILY PRN PRN Reason: Severe Pain (Scale 7, 8, 9,10) Stop: 08/21/25 16:26 Last Admin: 08/18/25 12:39 Dose: 3 mg Mupirocin (Mupirocin 2% Oint 22 Gm Tube) 1 appln NA BID [facility] Stop: 09/06/25 20:59 Last Admin: 08/19/25 08:17 Dose: 1 appln Nicotine (Nicotine 14 Mg/24 Hr Patch) 1 patch TD QAM [facility] Stop: 09/06/25 16:59 Last Admin: 08/19/25 08:16 Dose: 1 patch Ondansetron HCl (Ondansetron Inj 2 Mg/Ml 2 Ml Vial) 4 mg IV Q6H PRN PRN Reason: Nausea Stop: 09/06/25 16:26 Last Admin: 08/18/25 20:16 Dose: 4 mg Oxycodone HCl (Oxycodone Hcl Ir 5 Mg Tab (Immediate Release)) 12.5 mg PO Q4H PRN PRN Reason: Moderate Pain (Scale 4, 5, 6) Stop: 08/28/25 09:59 Last Admin: 08/19/25 08:11 Dose: 12.5 mg Pantoprazole Sodium (Pantoprazole 40 Mg Tab) 40 mg PO BID [facility]; Protocol Stop: 09/06/25 20:59 Last Admin: 08/19/25 08:13 Dose: 40 mg Polyethylene Glycol (Polyethylene (Miralax) 17 Gm Pack) 17 gm PO DAILY PRN PRN Reason: Constipation Stop: 09/06/25 16:26 Last Admin: 08/18/25 08:31 Dose: 17 gm Pregabalin (Pregabalin 150 Mg Cap) 150 mg PO TID [facility] Stop: 09/06/25 16:44 Last Admin: 08/19/25 08:21 Dose: 150 mg Spironolactone (Spironolactone 100 Mg Tab) 100 mg PO DAILY [facility] Stop: 09/07/25 08:59 Last Admin: 08/19/25 08:14 Dose: 100 mg Umeclidinium [place] (Umeclidinium [place] 62.5mcg/Blister 7 Puffs/Inhaler) 1 puffs INH QAM [facility] Stop: 09/08/25 13:44 Last Admin: 08/19/25 08:17 Dose: 1 puffs (8) Cirrhosis Ascites presence: unspecified Hepatic cirrhosis type: alcoholic cirrhosis Qualified Code(s): K70.30 - Alcoholic cirrhosis of liver without ascites (9) Type 2 diabetes mellitus Diabetes mellitus complication status: with other specified complication Diabetes mellitus assisted insulin use: unspecified terminal operations supervisor insulin use status Qualified Code(s): E11.69 - Type 2 diabetes mellitus with other specified complication (10) Chronic deep vein thrombosis (DVT) Affected thrombotic vein of extremity: unspecified vein of extremity DVT location: lower extremity Laterality: right Qualified Code(s): I82.501 - Chronic embolism and thrombosis of unspecified deep veins of right lower extremity
[2025-08-20 07:10] LABS: Hematocrit (blood only) 36.3 % (42.0-52.0); Hemoglobin 11.7 g/dL (14.0-18.0); Mean Corpuscular Hemoglobin 26.2 pg (25.0-34.0); Mean Corpuscular Volume 81.4 fL (80.0-100.0); Platelet Count 181 K/uL (130-400); RDW Standard Deviation 48.1 fL (36.4-46.3); Red Blood Count 4.46 M/uL (4.70-6.10); White Blood Count 4.01 K/ul (4.8-10.8)
[2025-08-20 07:42] VITALS: BP 103/98; PULSE 75; RESP 20; TEMP 97.5; O2SAT 97
[2025-08-20 08:04] LABS: Anion Gap 8.0 (3-11); Blood Urea Nitrogen 38.0 mg/dl (6-23); Calcium 9.1 mg/dl (8.6-10.3); Carbon Dioxide 28.0 mmol/L (21-32); Chloride 101.0 mmol/L (98-107); Creatinine Clr Calc Pharmacy 92.6 ml/min; Glucose 173.0 mg/dl (70-99(Fasting)); Potassium 3.5 mmol/L (3.5-5.1); Sodium 137.0 mmol/L (136-145)
--- NOTE | 2025-08-20 12:20 | Discharge Summary ---
Discharge Summary Date of Service August 20, 2025 Principal Dx & Hospital Course #1 = Principal Diagnosis (1) Recurrent cellulitis of lower extremity: (2) Ulcer of extremity due to chronic venous insufficiency: (3) MSSA (methicillin susceptible Staphylococcus aureus) infection: (4) Type 2 diabetes mellitus: (5) Cirrhosis: (6) Chronic deep vein thrombosis (DVT): Plan Patient is 50 year old male with PMH DM II with neuropathy, chronic venous stasis and ulcers with lower extremity edema, chronic DVT, chronic pain, GERD, asthma/COPD, alcoholic cirrhosis (currently abstaining), HLD, mood disorder presented to ER on 08/07/2025 with c/o worsening right ankle pain and foul smell. Recently admitted 08/01-08/05 and discharged on oral antibiotics and is re- admitted for IV antibiotics. Recurrent cellulitis of lower extremity Bilateral LE ulcers due to chronic venous insufficiency Previous admission MRI without osteomyelitis and wound culture +serratia marcescens, klebsiella oxytoc and Stenotrophomonas maltophilia Failed PO abx regimen after discharge and represented for worsening pain, purulence in R foot Evaluated by Vascular Surgery who recommend outpatient venous reflux testing to evaluate for any superficial venous reflux that could be treated to help with wound healing-> follow up in one month ABIs WNL s/p Ankle Ulcers Debridement with Biopsy(Bilateral) by Dr. La on 08/14 -> bone biopsy consistent with stasis dermatitis Wound culture grew MSSA Blood cultures negative Completed 2 weeks of IV levofloxacin per recommendations of ID Needs to complete 10 days of oral keflex for MSSA-> discharged on 7 additional days to complete course Pain control with home oxycodone Follow up with Podiatry next week for ongoing wound care Chronic DVT Contributing factor in chronic venous insufficiency and wounds Encourage leg elevation and compression stockings Continue Eliquis COPD Continue inhalers and montelukast Diabetes Continue Ozempic Hypertension Continue aldactone, lasix, losartan Cirrhosis History alcoholic cirrhosis Has been abstaining from alcohol Continue diuretics and folic acid Hyperlipidemia Continue atorvastatin Chronic pain Continue lyrica and oxycodone Anxiety Continue buspar and prozac Patient seen in collaboration with Dr. Wilkins. Please see addendum. Notes For Next Care Provider 50 year old male with significant PMH who was admitted at [facility] from 08/07- 08/20/2025 for bilateral LE ulcers secondary to chronic venous insufficiency. Underwent debridement. Completed 14 days of IV antibiotics and sent home with 7 days of oral antibiotics for MSSA wound culture. Patient is to follow up with Podiatry for ongoing wound care. 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 Known chronic BLE wounds. Prior right ankle ulcer that previously healed and reopened ~ one week ago. He was recently hospitalized 08/01-08/05 secondary to his worsening wounds. His wound culture grew klebsiella, serratia, stenotrophomonas. He was started on IV dapto/cefepime. He was initially seen by ID who recommended d/c on levaquin and minocyclin. Pt was adamant that he required IV antibiotics as he reports on oral antibiotics he always ends right back in the ED. Since being discharged he reports increased nausea, decreased appetite and worsening pain specifically to his left ankle. He has been taking pain medication without relief. He also feels left ankle is more foul-smelling. He complains of cold sweats, but is unsure of any documented fever. Again overall poor appetite. He did have episodes of nausea and vomiting. He has had relatively loose stool, but this is in the setting of significant laxative use during hospital stay. He feels this is improving. He feels ever since starting the oral antibiotics his symptoms have been worsening. He again expressed wishes to be discharged to SNF with IV antibiotics. Admission Exam Per Admitting Provider Gen: WD/WN, NAD, toxic appearing, A&O x3 HEENT: Normocephalic, atraumatic, conjunctivae moist, sclerae anicteric, mucous membranes moist. Lung: Clear to Auscultation bilaterally, minimal wheezing throughout no rales/rhonchi Heart: Regular rate, regular rhythm, no murmurs, rubs, or gallops Abdomen: Soft, mildly distended, NT, no rebound/guarding +BS x 4 Extremities: b/l hyperkeratotic venous stasis changes with ulceration to R medial and lateral malleolar area and ulcer to medial L malleolar area, no surrounding erythema or drainage, wound bed is not necrotic. Dressings are CDI today. Skin: Warm, no rash, negative turgor. Discharge Exam General/Psych: WD/WN, sitting up in bed, NAD, conversing easily Head: normocephalic, atraumatic Eyes: normal inspection, PERRL, conjunctivae pink Neck: normal visual inspection, trachea midline Respiratory: normal respiratory effort, lungs clear to auscultation, no wheeze/rales/rhonchi, no accessory muscle use Cardiovascular: regular rate and rhythm, no murmur/rub/gallop Extremities: no cyanosis or clubbing, normal peripheral pulses, no BLE edema Abdomen/GI: normal bowel sounds, soft, nontender Neurologic/MSK: A+Ox3, motor strength 5/5, moves all extremities Skin: no rashes, chronic venous stasis changes of BLE, multiple wounds to bilateral legs with dressings c/d/i Updated Medication List Medication Instructions Recorded Confirmed Type albuterol sulfate 90 mcg/actuation 1 puff inhalation Q6H PRN 05/09/18 08/07/25 History aerosol inhaler (Ventolin HFA) Shortness Of Breath folic acid 1 mg tablet 1 mg PO QAM 05/09/18 08/07/25 History omeprazole 20 mg capsule,delayed 20 mg PO BID 05/09/18 08/07/25 History release diphenhydramine HCl 25 mg capsule 25 mg PO Q6H PRN Itching 10/23/19 08/07/25 History (Benadryl) furosemide 80 mg tablet 80 mg PO BID17 10/23/19 08/07/25 History multivitamin 1 tab PO QAM 06/05/20 08/07/25 History buspirone 15 mg tablet 15 mg PO BID 10/02/22 08/07/25 History fluoxetine 20 mg capsule 20 mg PO HS 10/02/22 08/07/25 History fluticasone 500 mcg-salmeterol 50 1 inh inhalation BID 10/02/22 08/07/25 History mcg/dose blistr powdr for inhalation montelukast 10 mg tablet 10 mg PO DAILY 10/02/22 08/07/25 History ammonium lactate 5 % lotion 1 applic EXT BID #226 grams 10/08/22 08/07/25 Rx (Lac-Hydrin Five) hydroxyzine HCl 10 mg tablet 10 mg PO Q8H PRN Itching 10/29/22 08/07/25 History tiotropium bromide 2.5 2 inh inhalation DAILY 10/29/22 08/07/25 History mcg/actuation mist for inhalation (Spiriva Respimat) pregabalin 150 mg capsule 150 mg PO TID 06/04/23 08/07/25 History blood-glucose meter (Accu-Chek #1 ea 06/14/23 08/07/25 Rx Guide Glucose Meter) apixaban 5 mg tablet (Eliquis) 5 mg PO BID 08/01/25 08/07/25 History atorvastatin 40 mg tablet 40 mg PO DAILY 08/01/25 08/07/25 History losartan 25 mg tablet 25 mg PO DAILY 08/01/25 08/07/25 History oxycodone 10 mg tablet 10 mg PO QID PRN Severe Pain 08/01/25 08/07/25 History (Scale Score 7-10) semaglutide 1 mg/dose (4 mg/3 mL) 1 mg subcut WK 08/01/25 08/07/25 History subcutaneous pen injector (Ozempic) spironolactone 100 mg tablet 100 mg PO DAILY 08/01/25 08/07/25 History cephalexin 500 mg capsule 500 mg PO QID #27 caps 08/20/25 Rx Hospital Stay Data Consultations 08/07/25 13:17 ED Decision to Admit Stat 08/07/25 13:55 Consult Podiatry Routine 08/07/25 14:15 Consult Vascular Surgery Routine 08/07/25 14:22 Consult Infectious Diseases Routine Procedures Performed Operation Date: 08/14/25 12:15 Actual Procedures p Bilateral Ankle Ulcers Debridement with Biopsy(Bilateral) - Gerson La DPM Diagnostic Imagining Performed Chest X-Ray 08/07/25 09:52 XR chest 1V portable HISTORY: 50 years-old Male Sepsis COMPARISON: 525 TECHNIQUE: AP view of the chest FINDINGS: Cardiac silhouette is upper limits of normal in size. Right IJ [id number]-j-[id number] catheter is unchanged. Pulmonary vascular congestion with interstitial coarsening. No pneumothorax or large pleural effusion. Mild hazy left basilar opacities are new from prior. Subacute to chronic posterior left rib fractures appear new from prior. Degenerative changes of the shoulders and spine. IMPRESSION: 1. Cardiomegaly with pulmonary vascular congestion. 2. Mild hazy left basilar opacities may represent atelectasis versus pneumonitis. ACT 112: Negative or not required by law. The above report was generated using voice recognition software. It may contain grammatical, syntax or spelling errors. Electronically signed by: Dante Cavazos M.D. 08/07/2025 11:14 AM Abdomen/Pelvis CT 08/07/25 10:[address] WITH IV CONTRAST CT DOSE: 1552.28 mGy.cm HISTORY: Acute right lower quadrant abdominal pain RLQ abd pain TECHNIQUE: Multiaxial CT images of the abdomen and pelvis were performed following the IV administration of 93 cc of Optiray, A dose lowering technique was utilized adhering to the principles of ALARA. COMPARISON STUDY: Chest CT 05/13/2019 FINDINGS: Bibasilar groundglass opacities with intralobular septal thickening has progressed from 2019. Bronchial wall thickening with mucous plugging. There is no pneumatosis or pneumoperitoneum. The spleen is enlarged measuring up to 19 cm, mildly increased in size from prior. Unremarkable adrenal glands and gallbladder. Hepatic steatosis. Patency of the hepatic and portal veins. There is mild inflammatory stranding involving the uncinate process pancreas and pancreaticoduodenal groove. Nonspecific bilateral perinephric stranding. 5 mm nonobstructing calculus of the mid pole right kidney. No ureteral calculi or hydronephrosis. Partially decompressed urinary bladder. Atherosclerosis of the aorta with high-grade stenosis of the infrarenal segment. Additional prominent calcifications are noted in the IVC, left renal and bilateral iliac veins suggestive of chronic thrombi. Pathologically enlarged lower iliac chain lymph nodes could a 2.5 x 1.5 cm lymph node on the left, image 339 and a 3.0 x 1.2 cm lymph node on the right, image 334. A 2.7 x 2.2 cm right inguinal chain lymph node is seen on image 405. No bowel obstruction or bowel wall thickening. Mild colonic fecal retention. Normal appendix. No acute fracture. IMPRESSION: 1. Mild inflammatory stranding adjacent to the uncinate process pancreas and pancreaticoduodenal groove suspicious for mild acute pancreatitis versus duodenitis. Correlate with serum lipase. 2. Normal appendix. 3. Splenomegaly redemonstrated, slightly increased in size compared to the 2019 comparison exam. 4. Nonspecific pathologically enlarged iliac and inguinal chain lymph nodes could be correlated with tissue sampling to exclude a lymphoproliferative process. 5. Atherosclerosis with high-grade infrarenal abdominal aortic stenosis. ACT 112: Negative or not required by law. The above report was generated using voice recognition software. It may contain grammatical, syntax or spelling errors. Electronically signed by: Dante Cavazos M.D. 08/07/2025 12:35 PM Ankle Brachial Index 08/08/25 11:29 US ankle/brachial index ltd HISTORY: 50 years-old Male aortoiliac disease, venous ulcers, please add TBI. COMPARISON: Arterial Doppler 08/02/2025 TECHNIQUE: Segmental pressures of the lower pelvis were obtained FINDINGS: RIGHT: Brachial-106 (index); dorsalis pedis-114 (0.98); posterior tibial-111 (0.96); toe-88 (0.76); JAYDE-0.98; TBI-0.76. LEFT: Brachial-116 (index); dorsalis pedis-103 (0.89); posterior tibial-115 (0.99); toe-81 (0.70); JAYDE-0.99; TBI-0.70. IMPRESSION: Normal ABIs bilaterally. ACT 112: Negative or not required by law. The above report was generated using voice recognition software. It may contain grammatical, syntax or spelling errors. Electronically signed by: Dante Cavazos M.D. 08/08/2025 3:28 PM Pending Results Patient Have Any Pending Studies at Discharge: No Discharge Instructions Given to Patient (Per Discharging Provider) You presented to the hospital with worsening pain in your right ankle after being discharged from the hospital on oral antibiotics. You were evaluated by Vascular Surgery who will see you outpatient in 1 month for venous testing. You underwent debridement with Dr. La of Podiatry on 08/14 and your bone biopsy was consistent with stasis dermatitis (chronic venous insufficiency). Your wound culture is growing staph. You were evaluated by Infectious Disease who recommended 14 days of levofloxacin. You completed your final IV dose today and are ready to go home. You will need to take Keflex for the staph in your wound for 7 more days. You will need to follow up with Dr. La for wound care. In the meantime, please change your dressings daily with betadine/iodine and cover with optifoam. MEDICATION CHANGES: Cephalexin (Keflex) 500mg by mouth four times per day for 7 more days - stop on 08/26/2025 after final dose - take with food to prevent stomach upset SUMMARY OF TEST RESULTS: JAYDE revealed normal arterial blood flow Blood cultures negative PENDING TEST RESULTS: None RECOMMENDATIONS FOR FOLLOW-UP: Please follow up with your PCP as scheduled on 08/25/2025 at [facility] Please call [phone] on Monday next week to request a follow up appointment with Dr. La OTHER INSTRUCTIONS: Seek medical attention if you have: * temperature above 101 * chest pain or trouble breathing * abdominal pain, nausea, vomiting * diarrhea, dark stools or bloody stools * any unanswered questions or concerns Call [phone] if symptoms are severe. It has been a pleasure taking care of you. Please take care of yourself. If you have any questions regarding your recent hospitalization please contact [facility] and request [facility] Hospitalist @ [phone]. Total Time Total Time Spent Total Time Spent (In Minutes): I spent a total of 35 minutes coordinating, documenting and providing care for this patient excluding time spent in the performance of separately billed services or time spent by another provider/QHP. Supervising Physician Co-Signing Physician Notes 08/14/2025 The patient was seen and examined in medical floor He will have I&D and also biopsy from his ankle by the town marshal today Denies any other significant symptoms except pain in the ankles On examination Lying on bed without any acute distress Remains hemodynamically stable and is afebrile Chest was clear to auscultation bilaterally HeartS1-S2 regular Abdomenbenign Extremitiesbilateral swelling of the ankles with ankle ulcers/wound His labs, medications and imaging studies reviewed He will have bilateral ankle ulcers debridement with biopsy this afternoon His other significant medical conditions remained stable as above Agree with assessment plan as outlined above by Yanira Sims PA-C and take the full responsibility of care in the hospital Total time taken to see the patient, examining him, reviewing the chart and medications, and plan for care was [address] Linda Wilkins 08/15/2025 The patient was seen and examined in medical floor He is status post bilateral ankle ulcers debridement and biopsy Complains of pain in the ankles Denies any other significant symptoms He remains hemodynamically stable and afebrile Other system examination unremarkable Awaiting pathology and Gram stain of the biopsies Agree with assessment plan as outlined above by Faith Sanders PA-C and take the full responsibility in the hospital Total time taken to see the patient, examining him, reviewing the medications and charts and also planning care [address] Linda Wilkins 08/16/2025 The patient was seen and examined in medical floor He has been stable following the I&D and biopsy of the ankles The results are negative so far Complains some pain in the ankles but otherwise remains stable His chart, medications and investigation results were discussed with him and appropriate plan was documented as above Agree with assessment and plan as outlined by Jeanna Ahmadi PA-C and take the full responsibility of care in the hospital I spent a total of 10 minutes examining the patient, planning care and going over the procedure results DR Linda Wilkins 08/17/2025 The patient was seen and examined in medical floor he has been complaining of increasing pain in the ankles but otherwise remains unremarkable Pain medications has been adjusted as by the PEMA His systemic examination remained unremarkable He will be getting antibiotic as per recommendation from the ID and also current sensitivity and culture Has been awaiting to be placed Agree with assessment and plan as outlined above by Jeanna Ahmadi PA-C and take the full responsibility of care in the hospital I spent a total of 10 minutes examining the patient going over the medications and chart Dr Linda Wilkins 08/18/2025 Patient was seen and examined in medical floor He has been stable without any significant symptoms except pain in the feet His examination remained otherwise unremarkable He will be given intravenous antibiotic as planned for the ongoing infection in the ankle Likely discharge on Monday Agree with assessment plan as documented Above by YNES Lacy and take the full responsibility of care in the hospital . I spent a total of 10 minutes examining the patient, reviewing the chart and medications and plan of care as above. DR Linda Wilkins 08/19/2025 Patient was seen and examined in medical floor His leg pain is improving and he has been able to move around Will finish the intravenous antibiotic before discharging him tomorrow He denies any other significant symptoms and remains hemodynamically stable Agree with assessment and plan as outlined above by YNES Lacy and take the full responsibility of care in the hospital I spent a total of 10 minutes seeing the patient, examining him and going over the medications and the test results Dr Linda Wilkins 08/20/2025 The patient was seen and examined in medical floor He remains stable and he is leg pain is reasonably controlled with current medications He remains hemodynamically stable and is afebrile He will finish his intravenous antibiotic today and will be discharged on oral antibiotic to continue for the next few days He was strongly advised to keep moving and take less of narcotic pain medications Agree with assessment plan as outlined above YNES Lacy and take the full responsibility of care in the hospital I have spent a total of 15 minutes examining the patient, going over the chart and medications and planning of care Dr Linda Wilkins
--- NOTE | 2025-08-22 07:26 | Coding Query ---
CODING QUERY To promote full compliance with coding requirements relating to patient care, provider participation is requested in all cases of health consultant uncertainty. Please assist us with the question(s) below: Coding Question(s): There is documentation,on the ER of, "CXR image reviewed interpreted by myself is made for pneumonia, per my interpretation", and the H&P documents, "Possible PNA or pneumonitis", and, "Possible PNA or pneumonitis", and, "discussed with ID service regarding possible necessity for MRSA pneumonia coverage", and the Progress Notes 08/08 through 08/17 document, " Low suspicion for PNA" and then documentation drops off on the 08/18 Progress Note through the Discharge Summary. It is not clear if the possible pneumonia was ruled out completely. Please specify below, in your clinical opinion, regarding possible pneumonia: ( ) Possible Pneumonia was monitored and/or treated during this admission. Please specify further below, regarding the possible pneumonia: ( ) Possible MRSA Pneumonia ( x ) Possible Unspecified Pneumonia ( ) Possible Pneumonia, Other specificity. Please Specify ( ) Pneumonia Ruled-Out Physician's Response(s): Possible PNA based on chest x-ray but very unlikely given that patient had no symptoms or hypoxia. He received 14 days of IV antibiotics for a skin infection that would cover any possible PNA. Thank you Ameena Shea Principal Diagnosis: "that condition established after study, to be chiefly responsible for occasioning the admission of the patient to the hospital for care." Co-Existing Principal Diagnosis: "when two or more diagnoses equally meet the criteria for principal diagnosis as determined by the circumstances of admission, diagnostic work up, and/or therapy provided, and the Alphabetic Index, Tabular List, or another coding guideline does not provide sequencing direction, any one of the diagnoses may be sequenced first." "When the physician has documented what appears to be a current diagnosis in the body of the record, but has not included the diagnosis in the final diagnostic statement, the physician should be asked whether the diagnosis should be added." (Source Coding [facility] 2 QTR90. p3-4) YINKA
== END 2025-08-20 11:00 | disposition home or self-care (01) | DRG 264 ==
LOC: ED 09:34 → 3W 13:55 → SUATTDRO 13:55 → 3W 15:21

== ENCOUNTER 2025-08-25 07:46 | Observation (INO) ==
--- NOTE | 2025-08-25 07:48 | Emergency Department Note ---
History of Present Illness General Chief complaint: Ankle Pain Stated complaint: possible infection in right ankle Time Seen by Provider: 08/25/25 07:47 History of Present Illness This is a 50-year-old male with history of chronic venous insufficiency, DVT, recurrent lower extremity cellulitis, COPD, type 2 diabetes that presents to the emergency department via private vehicle with complaints of "possible infection in right/left ankle". Patient with recent hospitalization and discharge for recurrent lower extremity cellulitis. He is at the present time on oral cephalexin. He presents today noting return of pain to the bilateral medial ankles and is concern for infection. No fevers or chills but does note some sweats. No chest pain or shortness of breath. No reported trauma or injury. Home Medications Medication Instructions Recorded Confirmed Type albuterol sulfate 90 mcg/actuation 1 puff inhalation Q6H PRN 05/09/18 08/25/25 History aerosol inhaler (Ventolin HFA) Shortness Of Breath folic acid 1 mg tablet 1 mg PO QAM 05/09/18 08/25/25 History omeprazole 20 mg capsule,delayed 20 mg PO BID 05/09/18 08/25/25 History release diphenhydramine HCl 25 mg capsule 25 mg PO Q6H PRN Itching 10/23/19 08/25/25 History (Benadryl) furosemide 80 mg tablet 80 mg PO BID17 10/23/19 08/25/25 History multivitamin 1 tab PO QAM 06/05/20 08/25/25 History buspirone 15 mg tablet 15 mg PO BID 10/02/22 08/25/25 History fluoxetine 20 mg capsule 20 mg PO HS 10/02/22 08/25/25 History fluticasone 500 mcg-salmeterol 50 1 inh inhalation BID 10/02/22 08/25/25 History mcg/dose blistr powdr for inhalation montelukast 10 mg tablet 10 mg PO DAILY 10/02/22 08/25/25 History ammonium lactate 5 % lotion 1 applic EXT BID #226 grams 10/08/22 08/25/25 Rx (Lac-Hydrin Five) hydroxyzine HCl 10 mg tablet 10 mg PO Q8H PRN Itching 10/29/22 08/25/25 History tiotropium bromide 2.5 2 inh inhalation DAILY 10/29/22 08/25/25 History mcg/actuation mist for inhalation (Spiriva Respimat) pregabalin 150 mg capsule 150 mg PO TID 06/04/23 08/25/25 History blood-glucose meter (Accu-Chek #1 ea 06/14/23 08/25/25 Rx Guide Glucose Meter) apixaban 5 mg tablet (Eliquis) 5 mg PO BID 08/01/25 08/25/25 History atorvastatin 40 mg tablet 40 mg PO DAILY 08/01/25 08/25/25 History losartan 25 mg tablet 25 mg PO DAILY 08/01/25 08/25/25 History oxycodone 10 mg tablet 10 mg PO QID PRN Severe Pain 08/01/25 08/25/25 History (Scale Score 7-10) semaglutide 1 mg/dose (4 mg/3 mL) 1 mg subcut WK 08/01/25 08/25/25 History subcutaneous pen injector (Ozempic) spironolactone 100 mg tablet 100 mg PO DAILY 08/01/25 08/25/25 History cephalexin 500 mg capsule 500 mg PO QID #27 caps 08/20/25 08/25/25 Rx Allergies Allergy/AdvReac Type Severity Reaction Status Date / Time peas Allergy Severe Anaphylaxis Verified 06/19/23 10:28 tuna oil Allergy Severe Anaphylaxis Verified 06/19/23 10:28 to "tuna" sulfamethoxazole Allergy Intermediate hives Verified 06/19/23 10:28 trimethoprim Allergy Intermediate hives Verified 06/19/23 10:28 Past Med/Surg History Problem List Recurrent cellulitis Ulcer of extremity due to chronic venous insufficiency Chronic ulcer of right ankle with fat layer exposed Chronic ulcer of left ankle with fat layer exposed Peripheral arterial disease Open wound of right lower extremity (Acute) Elevated procalcitonin (Acute) Duodenitis (Acute) Right lower quadrant abdominal pain (Acute) Nausea and vomiting (Acute) Klebsiella infection Serratia marcescens infection Chronic pain History of DVT (deep vein thrombosis) Open wound of right ankle (Acute) Recurrent cellulitis of lower extremity Chronic cutaneous venous stasis ulcer Chronic wound Conjunctivitis (Acute) Bacterial conjunctivitis Wound infection (Acute) COPD exacerbation (Acute) Cellulitis of left leg (Acute) Hypoalbuminemia Open wound of both lower extremities with complication (Acute) Depression with anxiety Venous ulcers of both lower extremities (Acute) Chronic deep vein thrombosis (DVT) (Chronic) Chronic narcotic use (Chronic) MRSA (methicillin resistant Staphylococcus aureus) infection (Chronic) Anxiety (Chronic) Hypercoagulable state (Chronic) Prothrombin Factor II Mutation, 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, borderline hyperhomocystemia Tobacco abuse (Chronic) GERD (gastroesophageal reflux disease) (Chronic) Venous insufficiency (chronic) (peripheral) (Chronic) COPD (chronic obstructive pulmonary disease) (Chronic) Depression (Chronic) COPD (chronic obstructive pulmonary disease) (Chronic) DVT prophylaxis History of MRSA infection (Acute) 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 DETAILS Blood clotting disorder ? NAME Hyperlipidemia Asthma USED RESCUE INHALER TODAY Anxiety and depression Chronic narcotic use HTN (hypertension) GERD (gastroesophageal reflux disease) Chronic deep vein thrombosis (DVT) 2017 (HOSPITALIZED AT [facility]) Tobacco abuse Cellulitis BILAT LEGS (WRAPS LEGS/DRY CLOTH) CURRENTLY HAS SOME OPEN WOUNDS>GOES TO WOUND CLINIC/HOMINY Surgical History History of anesthesia reaction WITH A-PORT INSERTION, WOKE UP IN MIDDLE OF PROCEDURE History of vascular access device APORT IN RT CHEST (IN PLACE) [place] teeth removed Family History Father ETOH abuse Cirrhosis Mother Hypercoagulable state Prothrombin Factor II Mutation, 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, boderline hyperhomocystemia Social History Smoking Status: Current every day smoker Tobacco Type: Cigarettes Cigarettes Per Day: 1/2 pack; Second Hand Exposure: No; Do You Dip or Chew Tobacco: No; Hx Alcohol Use: Yes Alcohol type: beer Alcohol Intake Frequency Comment: Pt reports quit drinking end of 07/2018 Hx Substance Use: No Preferred Language: [place] Communication Ability: Effective Visual Impairment: No Limitations Hearing Ability: Normal Glycerine Plant Operator Required: No Beliefs That Will Affect Care: None marital status: Current Living Situation: Family Current Living Situation Comment: With Mother How many Children do You have: 0 Feels Safe at Home: Yes Assistive Devices: None Review of Systems A total of 10 systems reviewed and were otherwise negative Physical Exam Vital Signs Vital Signs - 24 hr 08/25/25 07:47 08/25/25 08:12 Temperature 36.6 C Temperature Source Temporal Artery Scan Pulse Rate 101 H 82 Respiratory Rate 17 Respiratory Effort / Characteristics Non-Labored Spontaneous Respiratory Depth Normal Respiratory Pattern Regular Blood Pressure 154/84 H Blood Pressure Mean 107 Pulse Oximetry 96 Oxygen Delivery Method Room Air Sepsis Recent Fever Within 48 Hours No Sepsis New/Unexplained Change in Mental Status No Sepsis Action Taken by Nursing No Action Required VITAL SIGNS - Vital signs and nursing notes were reviewed. Stable and afebrile. GENERAL - 50-year-old male appearing his stated age who is in no acute distress. Communicates well with provider and answers questions appropriately. SKIN -chronic integument changes to bilateral lower extremities with ulcerations to the bilateral medial malleoli regions within the soft tissues. Biofilm noted within the ulcerations. They are just over 1 cm in diameter. Surrounding erythema noted. No crepitus. No fluctuance. HEAD - NC/AT. EYES - PERRL with EOMI bilaterally. Sclera anicteric. EARS - No deformities of external structures noted on gross examination bilaterally. NOSE - Midline and without cyanosis. No epistaxis or purulent drainage noted. MOUTH/OROPHARYNX - Without perioral cyanosis. NECK - Neck with FROM. No nuchal rigidity. LUNGS - CTA CARDIAC - RRR EXTREMITIES - +5/5 strength noted in UE/LE bilaterally. Skin as above. Warm, appropriately perfused lower extremities with intact cap refill bilat. NEUROLOGIC - Cranial nerves grossly intact PSYCH -alert, oriented and pleasant on exam Course Administered Medications Albuterol (Albut/Ipratrop 3mg/0.5mg Neb 3 Ml Vial) 3 ml NEB Q6R OTILIA; Protocol Stop: 09/24/25 12:59 Last Admin: 08/25/25 12:14 Dose: 3 ml Documented By: MARELY Apixaban (Apixaban 5 Mg Tablet) 5 mg PO BID [facility] Stop: 09/24/25 12:44 Last Admin: 08/25/25 13:36 Dose: 5 mg Documented By: Buspirone HCl (Buspirone 15 Mg Tab) 15 mg PO BID [facility] Stop: 09/24/25 11:59 Last Admin: 08/25/25 13:39 Dose: 15 mg Documented By: Cephalexin HCl (Cephalexin 500 Mg Cap) 500 mg PO QID [facility]; Protocol Stop: 09/01/25 11:54 Last Admin: 08/25/25 14:37 Dose: 500 mg Documented By: Admin: 08/25/25 13:10 Dose: 500 mg Documented By: Fluticasone/Vilanterol (Fluticasone/Vilanterol 200/25mcg 14 Puffs/Inhaler) 1 puffs INH DAILY [facility] Stop: 09/24/25 12:44 Last Admin: 08/25/25 13:40 Dose: 1 puffs Documented By: Folic Acid (Folic Acid 1 Mg Tab) 1 mg PO QAM [facility] Stop: 09/24/25 11:59 Last Admin: 08/25/25 13:36 Dose: 1 mg Documented By: Furosemide (Furosemide 80 Mg Tab) 80 mg PO BID17 [facility] Stop: 09/24/25 11:54 Last Admin: 08/25/25 13:38 Dose: 80 mg Documented By: Insulin Aspart (Insulin Aspart Per Unit Charge) 0 units SC ACHS [facility] Stop: 09/24/25 11:29 Last Admin: 08/25/25 12:41 Dose: 3 units Documented By: Co-signed By: CHARLEY Lactic Acid (Ammonium Lactate 12% Lotion 225 Gm Btl) 1 gm EXT BID [facility] Stop: 09/24/25 11:59 Last Admin: 08/25/25 13:39 Dose: 1 gm Documented By: Lactobacillus Acidophilus (Advanced Probiotic 625 Mg Capsule) 1,250 mg PO DAILY [facility] Stop: 09/24/25 12:27 Last Admin: 08/25/25 13:38 Dose: 1,250 mg Documented By: Losartan Potassium (Losartan Potassium 25 Mg Tab) 25 mg PO DAILY [facility] Stop: 09/24/25 11:59 Last Admin: 12/29/25 13:39 Dose: 25 mg Documented By: Montelukast Sodium (Montelukast Sodium 10 Mg Tablet) 10 mg PO DAILY [facility] Stop: 09/24/25 11:59 Last Admin: 08/25/25 13:37 Dose: 10 mg Documented By: Multivitamins (Multivitamin Tab) 1 tab PO QAM [facility] Stop: 09/24/25 12:44 Last Admin: 08/25/25 13:37 Dose: 1 tab Documented By: Nicotine (Nicotine 21 Mg/24 Hr Tdsy) 1 patch TD QAM [facility] Stop: 09/24/25 10:59 Last Admin: 08/25/25 12:41 Dose: 1 patch Documented By: Pantoprazole Sodium (Pantoprazole 40 Mg Tab) 40 mg PO BID [facility] Stop: 09/24/25 12:44 Last Admin: 08/25/25 13:36 Dose: 40 mg Documented By: Pregabalin (Pregabalin 150 Mg Cap) 150 mg PO TID [facility] Stop: 09/24/25 13:59 Last Admin: 08/25/25 14:37 Dose: 150 mg Documented By: Spironolactone (Spironolactone 100 Mg Tab) 100 mg PO DAILY [facility] Stop: 09/24/25 11:59 Last Admin: 08/25/25 13:37 Dose: 100 mg Documented By: Umeclidinium [place] (Umeclidinium [place] 62.5mcg/Blister 7 Puffs/Inhaler) 1 puffs INH DAILY [facility] Stop: 09/24/25 12:44 Last Admin: 08/25/25 13:41 Dose: 1 puffs Documented By: Discontinued Medications Buprenorphine HCl (Buprenorphine Hcl 2 Mg Subl) 2 mg SL TID OTILIA Stop: 09/24/25 13:59 Last Admin: 08/25/25 14:37 Dose: 2 mg Documented By: Diphenhydramine HCl (Diphenhydramine 50 Mg/Ml Vial) 25 mg IV NOW STA Stop: 08/25/25 09:14 Last Admin: 08/25/25 09:40 Dose: 25 mg [place]ed By: [facility] [place]drom[place]one HCl (Hydromorphone Inj 0.5 Mg/0.5 Ml Syr) 0.5 mg IV NOW STA Stop: 08/25/25 08:19 Last Admin: 08/25/25 08:39 Dose: 0.5 mg Documented By: [facility] [place]drom[place]one HCl (Hydromorphone Inj 0.5 Mg/0.5 Ml Syr) 0.5 mg IV NOW STA Stop: 08/25/25 09:55 Last Admin: 08/25/25 12:43 Dose: Not Given Documented By: Sodium Chloride (Nss) 500 mls @ 500 mls/hr IV .Q1H ONE Stop: 08/25/25 11:15 Last Infusion: 08/25/25 13:50 Dose: Infused Documented By: Admin: 08/25/25 12:43 Dose: 500 mls/hr Documented By: Ondansetron HCl (Ondansetron Inj 2 Mg/Ml 2 Ml Vial) 4 mg IV NOW STA Stop: 08/25/25 08:19 Last Admin: 08/25/25 08:38 Dose: 4 mg Documented By: [facility] [place] Decision Making Laboratory Data 08/25/25 08:25 08/25/25 08:25 Lab Results 08/25/25 Range/Units 08:25 WBC 4.03 L (4.8-10.8) K/ul RBC 4.29 L (4.70-6.10) M/uL Hgb 11.2 L (14.0-18.0) g/dL Hct 34.6 L (42.0-52.0) % MCV 80.7 (80.0-100.0) fL MCH 26.1 (25.0-34.0) pg MCHC 32.4 (32.0-36.0) g/dL RDW Std Deviation 45.6 (36.4-46.3) fL RDW Coeff of Kip 15.8 H (11.5-14.5) % Plt Count 200 (130-400) K/uL MPV 10.5 (9.4-12.4) fL Immature Gran % (Auto) 0.2 % Neut % (Auto) 67.4 % Lymph % (Auto) 20.8 % [place] % (Auto) 7.4 % Eos % (Auto) 3.2 % Baso % (Auto) 1.0 % Neut # (Auto) 2.71 (1.40-6.50) K/uL Lymph # (Auto) 0.84 L (1.20-3.40) K/uL [place] # (Auto) 0.30 (0.11-0.59) K/uL Eos # (Auto) 0.13 (0.00-0.50) K/uL Baso # (Auto) 0.04 (0.00-0.20) K/uL Immature Gran # (Auto) 0.01 (0.01-0.20) K/uL PT 10.4 (9.0-12.0) Seconds INR 1.0 (0.9-1.1) APTT 44 H (21-31) Seconds PTT Ratio 1.6 Sodium 139 (136-145) mmol/L Potassium 3.5 (3.5-5.1) mmol/L Chloride 107 (98-107) mmol/L Carbon Dioxide 24 (21-32) mmol/L Anion Gap 8 (3-11) BUN 14 (6-23) mg/dl Creatinine 0.78 (0.6-1.4) mg/dl Est Cr Clr Drug Dosing 131.3 ml/min eGFR 107.97 BUN/Creatinine Ratio 17.9 (10-20) Glucose 137 H (70-99(Fasting)) mg/dl Lactate 0.9 (0.4-2.0) mmol/L Calcium 9.4 (8.6-10.3) mg/dl Total Bilirubin 0.6 (0.2-1.0) mg/dl AST 13 (13-39) U/L ALT 16 (7-52) U/L Alkaline Phosphatase 49 (34-104) U/L C-Reactive Protein 3.48 H (0-0.5) mg/dl Total Protein 7.5 (6.0-8.3) gm/dl Albumin 4.0 (3.4-5.0) gm/dl Globulin 3.5 (2.5-4.0) gm/dl Albumin/Globulin Ratio 1.1 (0.9-2) Procalcitonin 0.47 (0-0.5) ng/ml MDM Narrative Patient was seen and evaluated as above in room B02. Review was performed of nursing notes and vital signs. I did review pertinent previous visits and patient history. After obtaining a thorough history and physical examination the above work up was performed. Patient presents to us today for evaluation of bilateral lower extremity pain, at the medial malleoli where there are ulcerations present. He is currently on oral cephalexin. Patient is worried about recurrent cellulitis. The patient is overall well-appearing and nontoxic on examination. Options of care were discussed with the patient. IV analgesia and antiemetics ordered. IV fluids ordered as well. Labs reveal mild pancytopenia, coags without significant abnormality. No evidence of emergent kidney or liver failure. CRP elevated 3.48. Procalcitonin within normal range, top normal 0.47. I did review previous infectious disease notes and hospitalization notes as well. Plan at this time is further evaluation and management in the inpatient setting. I will defer antibiotics to the hospitalist service noting recent antibiotic use and current oral abx use. No signs of sepsis. Please refer to further documentation regarding his stay. In the evaluation and treatment of this patient the following differential diagnoses were entertained: Necrotizing fasciitis, cellulitis, osteomyelitis, abscess, venous insufficiency, among others. Impression & Plan Venous ulcers of both lower extremities, History of DVT (deep vein thrombosis) Discharge Plan Visit Data Chief Complaint: Ankle Pain Stated Complaint: possible infection in right ankle ED Provider: Caren Campbell ED Midlevel Provider: Armand Rios Discharge Problem: Venous ulcers of both lower extremities, History of DVT (deep vein thrombosis) Patient Disposition: Admitted As Inpatient Condition: Good Discharge Instructions Interventions: ED Discharge Assessment Last Done: 08/25/25 12:25
[2025-08-25] MEDS: ONDANSETRON INJ 2 MG/ML 2 ML VIAL IV STA (08:38)
[2025-08-25] MEDS: HYDROmorphone INJ 0.5 MG/0.5 ML SYR IV STA ×2 (08:39→12:43)
[2025-08-25 08:47] LABS: Hematocrit (blood only) 34.6 % (42.0-52.0); Hemoglobin 11.2 g/dL (14.0-18.0); Immature Granulocytes # (auto) 0.01 K/uL (0.01-0.20); Immature Granulocytes % (auto) 0.2 %; Mean Corpuscular Hemoglobin 26.1 pg (25.0-34.0); Mean Corpuscular Volume 80.7 fL (80.0-100.0); Platelet Count 200 K/uL (130-400); RDW Standard Deviation 45.6 fL (36.4-46.3); Red Blood Count 4.29 M/uL (4.70-6.10); White Blood Count 4.03 K/ul (4.8-10.8)
[2025-08-25 09:06] LABS: Alanine Aminotransferase 16.0 U/L (7-52); Albumin Globulin Ratio 1.1 (0.9-2); Albumin Level 4.0 gm/dl (3.4-5.0); Alkaline Phosphatase 49.0 U/L (34-104); Anion Gap 8.0 (3-11); Bilirubin,Total 0.6 mg/dl (0.2-1.0); Blood Urea Nitrogen 14.0 mg/dl (6-23); Calcium 9.4 mg/dl (8.6-10.3); Carbon Dioxide 24.0 mmol/L (21-32); Chloride 107.0 mmol/L (98-107); Creatinine Clr Calc Pharmacy 131.3 ml/min; Globulin 3.5 gm/dl (2.5-4.0); Glucose 137.0 mg/dl (70-99(Fasting)); Potassium 3.5 mmol/L (3.5-5.1); Sodium 139.0 mmol/L (136-145); Total Protein 7.5 gm/dl (6.0-8.3)
[2025-08-25 09:18] LABS: INR 1.0 (0.9-1.1); Partial Thromboplastin Time 44 Seconds (21-31); Prothrombin Time 10.4 Seconds (9.0-12.0)
[2025-08-25] MEDS: diphenhydrAMINE 50 MG/ML VIAL IV STA (09:40)
--- NOTE | 2025-08-25 09:58 | History & Physical Report ---
<Statement entered by Stevie Fabian, DO - 08/25/25 12:32> I have seen and examined the patient and have discussed the case with the advance practice provider. I have reviewed the advanced practitioner's documentation, and I agree with, and take responsibility for that plan of care. Patient reports the main reason he return to the ED was increasing pain in his leg. He associates increased pain with worsening infection. He states that the wounds themselves have not looked any worse. Redness in the lower legs have not gotten any worse. No purulent discharge from the wounds. He thinks that his pain is increased as soon as the IV antibiotics are out of his system. Patient also reports concerning symptoms of excessively loose, mucousy diarrhea. This started over the weekend. Unable to really quantify how many times he has had the loose stools. Does admit to some nausea and some abdominal pain and crampiness. Denies any fever. Examination of lower extremities reveals severe peripheral vascular dermatitis, venous stasis ulcerations some mild redness but no significant erythema, no warmth, no purulence, no edema. Nothing that on clinical examination looks like worsening cellulitis. Discussed with the patient that on my clinical evaluation it does not seem as though the infection is legs or any worse in fact it probably is improved. I suspect his pain is due to his severe peripheral neuropathy and PAD. I also expressed to him my concern with his diarrhea that he could have C. difficile colitis. Reviewed medication, essentially a maximal effective dose of the Lyrica. Will trial buprenorphine 2 mg 3 times daily scheduled to see how that may manage some of his pain in addition to his as needed oxycodone. Will continue Keflex at this point, I do not see any need for any IV antibiotics at this time Does continue to need wound care, unfortunately he is apparently burned bridges with a lot of the local wound care clinics and they will not see him in the clinic. Check C. difficile. If would be positive for C. difficile stop Keflex and treat with oral vancomycin. I spent a total of 25 minutes coordinating, documenting, and providing care for this patient excluding time spent by another provider/QHP. 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 Recurrent admissions for BLE cellulitis ISO chronic BLE venous stasis ulcers. Most recent admission 08/07-08/20/25 for this. S/p debridement of bilateral ankle ulcers with biopsy on 08/[address] La. Biopsy c/w stasis dermatitis. ABIs WNL. Wound culture of left ankle wound grew MSSA, blood cultures negative. Was seen by ID who recommended po Levaquin x 14 days -- was put on IV instead as previously did not tolerate po (re: GI upset). Patient completed IV Levaquin x 14 days on 08/20. Was started on po Keflex on 08/17 given MSSA (+) wound culture with EOT supposed to be tomorrow, 08/26. Was discharged home. Recurrent BLE cellulitis Chronic BLE venous stasis ulcers Hemodynamically stable, no evidence of sepsis on admission. No leukocytosis, negative procalcitonin. Describes worsening BLE pain, diarrhea which brought him back into the ED today. Wounds do not appear acutely infected; no significant drainage. Will continue po Keflex for now with EOT tomorrow, 08/26, as previously planned. Appreciate WOCN input. May need to consider reeval by podiatry. Blood cx ordered in ED, pending. Diarrhea: Possibly 2/2 ABX use. Check stool PCR, C. diff studies. Received some IVF in ED. CHF: Continue diuretic regimen, daily wts/monitor I&Os. HLD: Continue statin therapy. HTN: Continue diuretic regimen, losartan. Chronic embolism and thrombosis of the right femoral vein anticoagulated on Eliquis: No bleeding concerns, continue Eliquis. Alcoholic cirrhosis: Has been abstaining from EtOH. Continue home diuretics, folic acid. DMII: A1c 6.7% earlier this month. Asthma-COPD overlap syndrome Diffuse wheezing bilaterally on exam. Remains on RA. Denies any cardiopulmonary complaints. Will trial scheduled Duonebs for now to see if this helps alleviate his wheezing. Continue home inhalers as able, Singulair. Chronic pain syndrome: Continue oxycodone, Lyrica. Anxiety: Continue BuSpar and Prozac. GERD: Continue PPI. Tobacco use disorder: Smokes "a few cigarettes here and there." Requesting nicotine patch, ordered. DVT Prophylaxis: Eliquis Code Status: FULL CODE Disposition: Observation in med/surg Patient seen in collaboration with Dr. Fabian. Please see addendum. I spent a total of 65 minutes coordinating, documenting, and providing care for this patient excluding time spent in the performance of separately billed services or time spent by another provider/QHP. This included personally reviewing all current laboratories and imaging studies, medical reconciliation, outpatient chart review and discussion with specialists. 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 Recurrent admissions for BLE cellulitis ISO chronic BLE venous stasis ulcers. Most recent admission 08/07-08/20/25 for this. S/p debridement of bilateral ankle ulcers with biopsy on 08/[address] La. Biopsy c/w stasis dermatitis. ABIs WNL. Wound culture of left ankle wound grew MSSA, blood cultures negative. Was seen by ID who recommended po Levaquin x 14 days. Patient completed IV Levaquin x 14 days on 08/20. Was started on po Keflex on 08/17 given MSSA (+) wound culture with EOT supposed to be tomorrow, 08/26. Was discharged home. He came back into the ED today due to worsening BLE pain and diarrhea. Feels diarrhea 2/2 oral Keflex. Poor oral intake in light of this. Some nausea, no vomiting. Experienced some chills and sweats the other night but no recorded fevers. Has been reportedly cleaning his wounds with sterile saline and topical iodine solution, then dressing the wounds with gauze and a bandage. Has 4 chronic venous stasis ulcerations that he has been managing at home: 1 on the lateral aspect of the right ankle, 1 on the medial aspect of the right ankle, 1 on the medial aspect of the left ankle and 1 on the anterior victoria region of the left lower leg. Has not noticed any significant drainage from these wounds. Was supposed to call podiatry to schedule a follow-up appointment with Dr. Gerson La but has yet to do so. Feels there is increasing erythema surrounding each ulceration. Describes profusely watery diarrhea. Denies any hematochezia or melena. No urinary complaints. Denies any chest pain or SOB. Allergies Allergy/AdvReac Type Severity Reaction Status Date / Time peas Allergy Severe Anaphylaxis Verified 06/19/23 10:28 tuna oil Allergy Severe Anaphylaxis Verified 06/19/23 10:28 to "tuna" sulfamethoxazole Allergy Intermediate hives Verified 06/19/23 10:28 trimethoprim Allergy Intermediate hives Verified 06/19/23 10:28 Home Medications Medication Instructions Recorded Confirmed Type albuterol sulfate 90 mcg/actuation 1 puff inhalation Q6H PRN 05/09/18 08/25/25 History aerosol inhaler (Ventolin HFA) Shortness Of Breath folic acid 1 mg tablet 1 mg PO QAM 05/09/18 08/25/25 History omeprazole 20 mg capsule,delayed 20 mg PO BID 05/09/18 08/25/25 History release diphenhydramine HCl 25 mg capsule 25 mg PO Q6H PRN Itching 10/23/19 08/25/25 History (Benadryl) furosemide 80 mg tablet 80 mg PO BID17 10/23/19 08/25/25 History multivitamin 1 tab PO QAM 06/05/20 08/25/25 History buspirone 15 mg tablet 15 mg PO BID 10/02/22 08/25/25 History fluoxetine 20 mg capsule 20 mg PO HS 10/02/22 08/25/25 History fluticasone 500 mcg-salmeterol 50 1 inh inhalation BID 10/02/22 08/25/25 History mcg/dose blistr powdr for inhalation montelukast 10 mg tablet 10 mg PO DAILY 10/02/22 08/25/25 History ammonium lactate 5 % lotion 1 applic EXT BID #226 grams 10/08/22 08/25/25 Rx (Lac-Hydrin Five) hydroxyzine HCl 10 mg tablet 10 mg PO Q8H PRN Itching 10/29/22 08/25/25 History tiotropium bromide 2.5 2 inh inhalation DAILY 10/29/22 08/25/25 History mcg/actuation mist for inhalation (Spiriva Respimat) pregabalin 150 mg capsule 150 mg PO TID 06/04/23 08/25/25 History blood-glucose meter (Accu-Chek #1 ea 06/14/23 08/25/25 Rx Guide Glucose Meter) apixaban 5 mg tablet (Eliquis) 5 mg PO BID 08/01/25 08/25/25 History atorvastatin 40 mg tablet 40 mg PO DAILY 08/01/25 08/25/25 History losartan 25 mg tablet 25 mg PO DAILY 08/01/25 08/25/25 History oxycodone 10 mg tablet 10 mg PO QID PRN Severe Pain 08/01/25 08/25/25 History (Scale Score 7-10) semaglutide 1 mg/dose (4 mg/3 mL) 1 mg subcut WK 08/01/25 08/25/25 History subcutaneous pen injector (Ozempic) spironolactone 100 mg tablet 100 mg PO DAILY 08/01/25 08/25/25 History cephalexin 500 mg capsule 500 mg PO QID #27 caps 08/20/25 08/25/25 Rx Past Med/Surg History Problem List Recurrent cellulitis Ulcer of extremity due to chronic venous insufficiency Chronic ulcer of right ankle with fat layer exposed Chronic ulcer of left ankle with fat layer exposed Peripheral arterial disease Open wound of right lower extremity (Acute) Elevated procalcitonin (Acute) Duodenitis (Acute) Right lower quadrant abdominal pain (Acute) Nausea and vomiting (Acute) Klebsiella infection Serratia marcescens infection Chronic pain History of DVT (deep vein thrombosis) Open wound of right ankle (Acute) Recurrent cellulitis of lower extremity Chronic cutaneous venous stasis ulcer Chronic wound Conjunctivitis (Acute) Bacterial conjunctivitis Wound infection (Acute) COPD exacerbation (Acute) Cellulitis of left leg (Acute) Hypoalbuminemia Open wound of both lower extremities with complication (Acute) Depression with anxiety Venous ulcers of both lower extremities (Acute) Chronic deep vein thrombosis (DVT) (Chronic) Chronic narcotic use (Chronic) MRSA (methicillin resistant Staphylococcus aureus) infection (Chronic) Anxiety (Chronic) Hypercoagulable state (Chronic) Prothrombin Factor II Mutation, 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, borderline hyperhomocystemia Tobacco abuse (Chronic) GERD (gastroesophageal reflux disease) (Chronic) Venous insufficiency (chronic) (peripheral) (Chronic) COPD (chronic obstructive pulmonary disease) (Chronic) Depression (Chronic) COPD (chronic obstructive pulmonary disease) (Chronic) DVT prophylaxis History of MRSA infection (Acute) 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 DETAILS Blood clotting disorder ? NAME Hyperlipidemia Asthma USED RESCUE INHALER TODAY Anxiety and depression Chronic narcotic use HTN (hypertension) GERD (gastroesophageal reflux disease) Chronic deep vein thrombosis (DVT) 2018 (HOSPITALIZED AT [facility]) Tobacco abuse Cellulitis BILAT LEGS (WRAPS LEGS/DRY CLOTH) CURRENTLY HAS SOME OPEN WOUNDS>GOES TO WOUND CLINIC/[facility] Surgical History History of anesthesia reaction WITH A-PORT INSERTION, WOKE UP IN MIDDLE OF PROCEDURE History of vascular access device APORT IN RT CHEST (IN PLACE) [place] teeth removed Family History Father ETOH abuse Cirrhosis Mother Hypercoagulable state Prothrombin Factor II Mutation, 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, boderline hyperhomocystemia Social History Smoking Status: Current every day smoker Tobacco Type: Cigarettes Cigarettes Per Day: 1/2 pack; Second Hand Exposure: No; Do You Dip or Chew Tobacco: No; Hx Alcohol Use: Yes Alcohol type: beer Alcohol Intake Frequency Comment: Pt reports quit drinking end of 07/2018 Hx Substance Use: No Preferred Language: [place] Citizen Communication Ability: Effective Visual Impairment: No Limitations Hearing Ability: Normal 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 Physical Exam 2 Physical Exam: General: Obese M, laying down in bed, unkempt appearance, A&Ox3 HEENT: Normocephalic, atraumatic, somewhat dry mucous membranes Respiratory: Normal respiratory effort, on RA, diffuse wheezing b/l, no rhonchi, no accessory muscle use Cardiovascular: RRR Abdomen/GI: Normal bowel sounds, soft, nontender to palpation in all quadrants Extremities/Musculoskeletal: chronic BLE venous stasis changes, chronic BLE ulcerations (pictured below) Neurologic: No overt focal deficits, CN's II-XI not formally tested but appear grossly intact bilaterally Medial R ankle ulceration Lateral R ankle ulceration Medial L ankle ulceration L victoria ulceration Results & Data Results & Data Vital Signs (Past 12 Hours) Vital Signs Temp Pulse Resp BP Pulse Ox O2 Del Method 08/25/25 08:12 82 08/25/25 07:47 36.6 C 101 H 17 154/84 H 96 Room Air Laboratory Results Short CBC 08/25/25 Range/Units 08:25 WBC 4.03 L (4.8-10.8) K/ul Hgb 11.2 L (14.0-18.0) g/dL Hct 34.6 L (42.0-52.0) % Plt Count 200 (130-400) K/uL BMP 08/25/25 08:25 Sodium 139 Potassium 3.5 Chloride 107 Carbon Dioxide 24 BUN 14 Creatinine 0.78 Glucose 137 H Calcium 9.4 Liver Function 08/25/25 Range/Units 08:25 Total Bilirubin 0.6 (0.2-1.0) mg/dl AST 13 (13-39) U/L ALT 16 (7-52) U/L Alkaline Phosphatase 49 (34-104) U/L Albumin 4.0 (3.4-5.0) gm/dl Medications Administered Discontinued Medications Diphenhydramine HCl (Diphenhydramine 50 Mg/Ml Vial) 25 mg IV NOW STA Stop: 08/25/25 09:14 Last Admin: 08/25/25 09:40 Dose: 25 mg Documented By: ILEANA Hydromorphone HCl (Hydromorphone Inj 0.5 Mg/0.5 Ml Syr) 0.5 mg IV NOW STA Stop: 08/25/25 08:19 Last Admin: 08/25/25 08:39 Dose: 0.5 mg Documented By: ILEANA Ondansetron HCl (Ondansetron Inj 2 Mg/Ml 2 Ml Vial) 4 mg IV NOW STA Stop: 08/25/25 08:19 Last Admin: 08/25/25 08:38 Dose: 4 mg Documented By: ILEANA
[2025-08-25] MEDS ORDERED: GLUCAGON FOR INJ 1 MG VIAL SQ PRN (10:35)
[2025-08-25] MEDS ORDERED: PHARMACY GLYCEMIC MGMT CONSULT PRN (10:35)
[2025-08-25] MEDS ORDERED: CARBOHYDRATES FOR HYPOGLYCEMIA PO PRN (10:35)
[2025-08-25] MEDS ORDERED: GLUCOSE 40% GEL 15 GM TUBE PO PRN (10:35)
[2025-08-25] MEDS ORDERED: GLUCOSE 10 TAB/TUBE PO PRN (10:35)
[2025-08-25] MEDS ORDERED: DEXTROSE 50% 50 ML SYRINGE IV PRN (10:35)
[2025-08-25] MEDS: ALBUT/IPRATROP 3MG/0.5MG NEB 3 ML VIAL NEB SCH (12:14)
[2025-08-25] MEDS ORDERED: ACETAMINOPHEN 325 MG TAB PO PRN (12:28)
[2025-08-25] MEDS ORDERED: MAGNESIUM HYDROXIDE SUSP 30 ML UDC PO PRN (12:28)
[2025-08-25] MEDS: NICOTINE 21 MG/24 HR TDSY TD SCH (12:41)
[2025-08-25] MEDS: INSULIN ASPART PER UNIT CHARGE SC SCH (12:41)
[2025-08-25] MEDS: SODIUM CHLORIDE 0.9% 500 ML IV ONE (12:43)
--- NOTE | 2025-08-25 13:08 | Pharmacy Report ---
Pharmacy Glycemic Short Note 2 - Date of Service August 25, 2025 - Glycemic Short BSG Results (Last 24 hours): 08/25/25 08/25/25 08:25 11:46 Glucose 137 H POC Glucose 114 H OUTPATIENT ANTIDIABETIC REGIMEN: * Ozempic * A1c 6.7% 02/01/25 ASSESSMENT: * Patient admitted with recurrent cellulitis. Reviewed recent admission data, utilized 16 units of basal daily plus loose novolog * Will adjust novolog parameters between weight stress 1 and 2. BSGs have been 137-114 mg/dL- will set conservative lantus scale for PM PLAN FOR INPATIENT GLYCEMIC CONTROL: * Hold outpatient oral diabetes medications * Basal insulin * Lantus 0-5-10 units SQ BID * Bolus insulin * NovoLog per scale ACHS or Q6hrs while NPO * Goal Range: Low 110 mg/dL - High 160 mg/dL * Correction Factor: 30 mg/dL/unit * Nutritional / Prandial insulin per carb ratio of 1 unit per 10 grams CHO consumed
[2025-08-25] MEDS: FOLIC ACID 1 MG TAB PO SCH (13:36)
[2025-08-25] MEDS: APIXABAN 5 MG TABLET PO SCH (13:36)
[2025-08-25] MEDS: MONTELUKAST SODIUM 10 MG TABLET PO SCH (13:37)
[2025-08-25] MEDS: SPIRONOLACTONE 100 MG TAB PO SCH (13:37)
[2025-08-25] MEDS: MULTIVITAMIN TAB PO SCH (13:37)
[2025-08-25] MEDS: FUROSEMIDE 80 MG TAB PO SCH (13:38)
[2025-08-25] MEDS: ADVANCED PROBIOTIC 625 MG CAPSULE PO SCH (13:38)
[2025-08-25] MEDS: busPIRone 15 MG TAB PO SCH (13:39)
[2025-08-25] MEDS: AMMONIUM LACTATE 12% LOTION 225 GM BTL EXT SCH (13:39)
[2025-08-25] MEDS: LOSARTAN POTASSIUM 25 MG TAB PO SCH (13:39)
[2025-08-25] MEDS: FLUTICASONE/VILANTEROL 200/25MCG 14 PUFFS/INHALER INH SCH (13:40)
[2025-08-25] MEDS: UMECLIDINIUM BROMIDE 62.5MCG/BLISTER 7 PUFFS/INHALER INH SCH (13:41)
[2025-08-25] MEDS: PREGABALIN 150 MG CAP PO SCH (14:37)
[2025-08-25] MEDS: LANTUS PER UNIT CHARGE SC SCH (20:23)
[2025-08-25] MEDS ORDERED: MELATONIN 3 MG TAB PO PRN (21:27)
[2025-08-25] MEDS ORDERED: diphenhydrAMINE Capsule 25 MG CAP PO PRN (21:27)
[2025-08-25] MEDS: diphenhydrAMINE 50 MG/ML VIAL IV PRN (22:22)
[2025-08-26] MEDS: MoRPHine SULFATE 4 MG/ML 1 ML CARP\\VIAL IV PRN (00:12)
[2025-08-26] MEDS: ONDANSETRON INJ 2 MG/ML 2 ML VIAL IV PRN (02:26)
[2025-08-26] MEDS: ATORVASTATIN 40 MG TAB PO SCH (08:32)
[2025-08-26] MEDS: REMOVE NICODERM PATCH SCH (08:34)
[2025-08-26 09:07] LABS: Hematocrit (blood only) 37.4 % (42.0-52.0); Hemoglobin 12.1 g/dL (14.0-18.0); Immature Granulocytes # (auto) 0.01 K/uL (0.01-0.20); Immature Granulocytes % (auto) 0.2 %; Mean Corpuscular Hemoglobin 26.2 pg (25.0-34.0); Mean Corpuscular Volume 81.1 fL (80.0-100.0); Platelet Count 216 K/uL (130-400); RDW Standard Deviation 46.9 fL (36.4-46.3); Red Blood Count 4.61 M/uL (4.70-6.10); White Blood Count 4.39 K/ul (4.8-10.8)
[2025-08-26 09:22] LABS: Anion Gap 10.0 (3-11); Blood Urea Nitrogen 20.0 mg/dl (6-23); Calcium 9.2 mg/dl (8.6-10.3); Carbon Dioxide 28.0 mmol/L (21-32); Chloride 98.0 mmol/L (98-107); Creatinine Clr Calc Pharmacy 82.4 ml/min; Glucose 133.0 mg/dl (70-99(Fasting)); Magnesium 1.9 mg/dl (1.7-2.4); Potassium 3.2 mmol/L (3.5-5.1); Sodium 136.0 mmol/L (136-145)
--- NOTE | 2025-08-26 15:00 | Hospitalist Progress Note ---
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 Recurrent admissions for BLE cellulitis ISO chronic BLE venous stasis ulcers. Most recent admission 08/07-08/20/25 for this. S/p debridement of bilateral ankle ulcers with biopsy on 08/[address] La. Biopsy c/w stasis dermatitis. ABIs WNL. Wound culture of left ankle wound grew MSSA, blood cultures negative. Was seen by ID who recommended po Levaquin x 14 days -- was put on IV instead as previously did not tolerate po (re: GI upset). Patient completed IV Levaquin x 14 days on 08/20. Was started on po Keflex on 08/17 given MSSA (+) wound culture with EOT supposed to be 08/26. Was discharged home. Recurrent BLE cellulitis Chronic BLE venous stasis ulcers Hemodynamically stable, no evidence of sepsis on admission. No leukocytosis, negative procalcitonin. Describes worsening BLE pain, diarrhea which brought him back into the ED today. Wounds do not appear acutely infected; no significant drainage. Pt requests podiatry eval. Will continue po Keflex for now [EOT supposed to be 08/26] until podiatry eval. Appreciate WOCN input. Blood cx ordered in ED, pending. c/w probiotic. Diarrhea: Possibly 2/2 ABX use. Check stool PCR, C. diff studies. Received some IVF in ED. denies loose stool today. CHF: Continue diuretic regimen, daily wts/monitor I&Os. HLD: Continue statin therapy. HTN: Continue diuretic regimen, losartan. Chronic embolism and thrombosis of the right femoral vein anticoagulated on Eliquis: No bleeding concerns, continue Eliquis. Alcoholic cirrhosis: Has been abstaining from EtOH. Continue home diuretics, folic acid. DMII: A1c 6.7% earlier this month. Asthma-COPD overlap syndrome Diffuse wheezing bilaterally on exam. Remains on RA. Denies any cardiopulmonary complaints. Will trial scheduled Duonebs for now to see if this helps alleviate his wheezing. Continue home inhalers as able, Singulair. Chronic pain syndrome: Continue oxycodone, Lyrica. Anxiety: Continue BuSpar and Prozac. GERD: Continue PPI. Tobacco use disorder: Smokes "a few cigarettes here and there." Requesting nicotine patch, ordered. DVT Prophylaxis: Eliquis Code Status: FULL CODE Disposition: Observation in med/surg, dc w/ podiatry clearance. Admission and Anticipated Discharge Date Admission Date: August 25, 2025 Subjective Patient was seen and examined at bedside. Patient was lying in bed, on room air, NAD, resting comfortably. Patient denies any fever/cough/chest pain/sore throat. Patient reports eating okay and moving bowels okay. Patient's wound does not look to be an acute infection, patient was not satisfied with my opinion and wanted podiatry also eval him while he is in the hospital. Physical Exam 2 Physical Exam: General: Obese M, laying down in bed, unkempt appearance, A&Ox3 HEENT: Normocephalic, atraumatic, moist mucous membranes Respiratory: Normal respiratory effort, on RA, no rhonchi, no accessory muscle use Cardiovascular: RRR Abdomen/GI: Normal bowel sounds, soft, nontender to palpation in all quadrants Extremities/Musculoskeletal: chronic BLE venous stasis changes, chronic BLE ulcerations (pictured below), no streaking erythema/swelling/foul smelling drainage Neurologic: No overt focal deficits, CN's II-XI not formally tested but appear grossly intact bilaterally Medial R ankle ulceration Lateral R ankle ulceration Medial L ankle ulceration L victoria ulceration Results & Data Results & Data Vital Signs (Past 12 Hours) Vital Signs Temp Pulse Resp BP Pulse Ox O2 Del Method 08/26/25 13:32 86 18 97 Room Air 08/26/25 08:36 80 112/76 08/26/25 07:50 84 16 97 Room Air 08/26/25 07:15 36.5 C 72 18 109/69 97 Room Air
[2025-08-26] MEDS: POTASSIUM CHLORIDE CRTAB 20 MEQ TABCR PO STA (15:04)
--- NOTE | 2025-08-26 15:14 | Electrocardiogram Report ---
Test Reason : Blood Pressure : */* mmHG Vent. Rate : 80 BPM Atrial Rate : 80 BPM P-R Int : 170 ms QRS Dur : 92 ms QT Int : 378 ms P-R-T Axes : 56 -2 38 degrees QTcB Int : 435 ms Normal sinus rhythm Poor R wave progression, consider anterior AL vs. lead placement vs. LVH Abnormal ECG When compared with ECG of 07-Aug-2025 09:56, No significant change was found Confirmed by Jamaal Joseph ([id number]) on 08/26/2025 3:14:10 PM Referred By: REFERRED SELF Confirmed By: Jamaal Joseph
[2025-08-26] MEDS: SODIUM CHLORIDE 0.65% NA SOLN 45 ML (OCEAN) ONE (16:17)
--- NOTE | 2025-08-26 16:52 | Podiatry Consultation ---
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 We discussed at length the etiology and treatment of his bilateral ankle ulcerations. There is no strong evidence for local infection with the wound beds remaining 100% granular and no simran purulence. His swelling and redness are actually improved from his prior admission, as well. He does have long-standing pain that is likely amplified by his chronic narcotic usage and with this mainly being is concerned, he can likely be discharged home with instruction to follow up with the [facility] wound care team. He was instructed to follow up with the [facility] wound care center but they would not see him due to failure to keep his scheduled appointments. I see no current indication for surgery and no strong need for IV antibiotics, though ID could be consulted and may suggest he follow- up for 6 weeks of IV antibiotics based on his failure to improve, more subjectively. For now, I will sign off as I headed out of town for the remainder of the week. I did discuss this case with Dr. Day who is willing to be reconsulted if further surgical or foot and ankle intervention is required. Thank you for the consult, we are always happy to help when possible. History of Present Illness Reason for Consultation: B/L Ankle ulcerations Attending Physician: Larry Wheeler MD History of Present Illness Patient is a 50-year-old male with history of diabetes mellitus, chronic venous stasis with ulcers, DVT on Eliquis, COPD and other medical problems presents with history of right leg wound and pain which has been gradually worsening since his last discharge home. His main concern is his pain returning to the bilateral ankle ulcerations. He does not currently have other systemic signs or symptoms of infection other than pain and recent diarrhea, but has been on antibiotics since discharge. As for the wounds, we performed a biopsy and culture of them last time he was here. He has had these on and off for several years and they seem to respond only to IV antibiotics. This is especially true once the pain develops, he states. Otherwise, he denies any systemic signs of infection. He states that he has not had antibiotics and/or pain medication since admission.. He has had past IV antibiotics at residential facilities around [place]. Allergies Allergy/AdvReac Type Severity Reaction Status Date / Time peas Allergy Severe Anaphylaxis Verified 06/19/23 10:28 tuna oil Allergy Severe Anaphylaxis Verified 06/19/23 10:28 to "tuna" sulfamethoxazole Allergy Intermediate hives Verified 06/19/23 10:28 trimethoprim Allergy Intermediate hives Verified 06/19/23 10:28 Home Medications Medication Instructions Recorded Confirmed Type albuterol sulfate 90 mcg/actuation 1 puff inhalation Q6H PRN 05/09/18 08/25/25 History aerosol inhaler (Ventolin HFA) Shortness Of Breath folic acid 1 mg tablet 1 mg PO QAM 05/09/18 08/25/25 History omeprazole 20 mg capsule,delayed 20 mg PO BID 05/09/18 08/25/25 History release diphenhydramine HCl 25 mg capsule 25 mg PO Q6H PRN Itching 10/23/19 08/25/25 History (Benadryl) furosemide 80 mg tablet 80 mg PO BID17 10/23/19 08/25/25 History multivitamin 1 tab PO QAM 06/05/20 08/25/25 History buspirone 15 mg tablet 15 mg PO BID 10/02/22 08/25/25 History fluoxetine 20 mg capsule 20 mg PO HS 10/02/22 08/25/25 History fluticasone 500 mcg-salmeterol 50 1 inh inhalation BID 10/02/22 08/25/25 History mcg/dose blistr powdr for inhalation montelukast 10 mg tablet 10 mg PO DAILY 10/02/22 08/25/25 History ammonium lactate 5 % lotion 1 applic EXT BID #226 grams 10/08/22 08/25/25 Rx (Lac-Hydrin Five) hydroxyzine HCl 10 mg tablet 10 mg PO Q8H PRN Itching 10/29/22 08/25/25 History tiotropium bromide 2.5 2 inh inhalation DAILY 10/29/22 08/25/25 History mcg/actuation mist for inhalation (Spiriva Respimat) pregabalin 150 mg capsule 150 mg PO TID 06/04/23 08/25/25 History blood-glucose meter (Accu-Chek #1 ea 06/14/23 08/25/25 Rx Guide Glucose Meter) apixaban 5 mg tablet (Eliquis) 5 mg PO BID 08/01/25 08/25/25 History atorvastatin 40 mg tablet 40 mg PO DAILY 08/01/25 08/25/25 History losartan 25 mg tablet 25 mg PO DAILY 08/01/25 08/25/25 History oxycodone 10 mg tablet 10 mg PO QID PRN Severe Pain 08/01/25 08/25/25 History (Scale Score 7-10) semaglutide 1 mg/dose (4 mg/3 mL) 1 mg subcut WK 08/01/25 08/25/25 History subcutaneous pen injector (Ozempic) spironolactone 100 mg tablet 100 mg PO DAILY 08/01/25 08/25/25 History cephalexin 500 mg capsule 500 mg PO QID #27 caps 08/20/25 08/25/25 Rx Patient History Medical History Encounter for pre-operative examination Cirrhosis Diabetes mellitus, type 2 Pulmonary embolism 13 YEARS AGO ? DETAILS Blood clotting disorder ? NAME Hyperlipidemia Asthma USED RESCUE INHALER TODAY Anxiety and depression Chronic narcotic use HTN (hypertension) GERD (gastroesophageal reflux disease) Chronic deep vein thrombosis (DVT) 2017 (HOSPITALIZED AT [facility]) Tobacco abuse Cellulitis BILAT LEGS (WRAPS LEGS/DRY CLOTH) CURRENTLY HAS SOME OPEN WOUNDS>GOES TO WOUND CLINIC/AMERICUS Surgical History History of anesthesia reaction WITH A-PORT INSERTION, WOKE UP IN MIDDLE OF PROCEDURE History of vascular access device APORT IN RT CHEST (IN PLACE) [place] teeth removed Family History Father ETOH abuse Cirrhosis Mother Hypercoagulable state Prothrombin Factor II Mutation, 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, boderline hyperhomocystemia Social History Smoking Status: Current every day smoker Tobacco Type: Cigarettes Cigarettes Per Day: 1/2 pack; Second Hand Exposure: No; Do You Dip or Chew Tobacco: No; Tobacco Cessation Education Requested by Patient: No Hx Alcohol Use: No Hx Substance Use: No Preferred Language: Indian Communication Ability: Effective Visual Impairment: No Limitations Hearing Ability: Normal Culinary Internship Required: No Beliefs That Will Affect Care: None marital status: Current Living Situation: Parent Current Living Situation Comment: With Mother How many Children do You have: 0 Other Information That Helps Us Care for You: No Feels Safe at Home: Yes Assistive Devices: Nebulizer Review of Systems Constitutional: no fever, no chills and no weakness Eyes: + problem reported Ear, Nose, Mouth, Throat: no problem reported Respiratory: + cough, + chest congestion and + wheezi ng Cardiovascular: + edema and + claudication Gastrointestinal: + change in stools; no problem reported Genitourinary: no problem reported Musculoskeletal: no problem reported Integumentary: + non-healing lesions, + changing lesion s, + skin ulcer, + wounds and + erythema Worsening odor, worse on the right than left Neurologic: + generalized weakness and + problem rep orted Psychiatric: no problem reported Endocrine: no problem reported Physical Exam Physical Exam: Lower extremity focused exam: DP/PT pulses nonpalpable. Advanced trophic changes noted to the bilateral lower extremity from mid tibia distally. Skin is thin and is extensively scarred to the anterior leg. There is evidence of venous stasis and peripheral arterial insufficiency. Bilateral lower extremity is warm to the touch with wounds noted to bilateral ankle ulcerations still noted. The wound beds are currently without evidence of acute infection and the wound beds are 100% granular. Chronic skin changes, consistent with his vascular disease, remain. See photos documenting the ulcerations from hospitalist note today. No ascending cellulitis, no profound edema, no simran purulence. No drainage noted to the dressing, other than betadine from the dressing application. Constitutional: WD/WN, vitals as above + ill appearing and + obese Eyes: PERRL, conjunctivae normal, anicteric sclerae ENMT: external ear and nose normal, oropharynx normal Mouth: + poor dentition Neck: trachea midline, no thyromegaly normal visual inspection Respiratory: normal respiratory effort; no respiratory distress Cardiovascular: Rate/Rhythm: regular rate and regular rhythm Vessels: + posterior tibial pulses abnormal and + dorsalis pedis pulses abnormal Chest (Breasts): Chest: normal inspection of chest Gastrointestinal (Abdomen): Inspection/Auscultation: abdomen normal to inspection Percussion/Palpation: + abdomen tender and abdomen soft Musculoskeletal: no cyanosis or clubbing, extremities motor strength 5/5 Head/Neck/Chest: normocephalic and head atraumatic Extremities: extremities normal to inspection Skin: + skin tightening, + wound, + skin atrop hy, + erythema, + scar and + nails dystrophic; + abnormal skin elasticity Neurologic: awake; no focal motor deficits Psychiatric: A+Ox3, euthymic affect Results & Data Vital Signs (Past 12 Hours) Vital Signs Temp Pulse Resp BP Pulse Ox O2 Del Method 08/26/25 13:32 86 18 97 Room Air 08/26/25 08:36 80 112/76 08/26/25 07:50 84 16 97 Room Air 08/26/25 07:15 36.5 C 72 18 109/69 97 Room Air
[2025-08-26] MEDS: POLYETHYLENE (MIRALAX) 17 GM PACK PO PRN (20:20)
[2025-08-27 07:11] VITALS: BP 92/63; TEMP 98.2
[2025-08-27 07:24] VITALS: PULSE 86; RESP 15; O2SAT 96
--- NOTE | 2025-08-27 09:22 | Discharge Summary ---
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 Recurrent admissions for BLE cellulitis ISO chronic BLE venous stasis ulcers. Most recent admission 08/07-08/20/25 for this. S/p debridement of bilateral ankle ulcers with biopsy on 08/[address] La. Biopsy c/w stasis dermatitis. ABIs WNL. Wound culture of left ankle wound grew MSSA, blood cultures negative. Was seen by ID who recommended po Levaquin x 14 days. Patient completed IV Levaquin x 14 days on 08/20. Was started on po Keflex on 08/17 given MSSA (+) wound culture with EOT supposed to be tomorrow, 08/26. Was discharged home. He came back into the ED today due to worsening BLE pain and diarrhea. Feels diarrhea 2/2 oral Keflex. Poor oral intake in light of this. Some nausea, no vomiting. Experienced some chills and sweats the other night but no recorded fevers. Has been reportedly cleaning his wounds with sterile saline and topical iodine solution, then dressing the wounds with gauze and a bandage. Has 4 chronic venous stasis ulcerations that he has been managing at home: 1 on the lateral aspect of the right ankle, 1 on the medial aspect of the right ankle, 1 on the medial aspect of the left ankle and 1 on the anterior [place] region of the left lower leg. Has not noticed any significant drainage from these wounds. Was supposed to call podiatry to schedule a follow-up appointment with Dr. Gerson La but has yet to do so. Feels there is increasing erythema surrounding each ulceration. Describes profusely watery diarrhea. Denies any hematochezia or melena. No urinary complaints. Denies any chest pain or SOB. Admission Exam Per Admitting Provider General: Obese M, laying down in bed, unkempt appearance, A&Ox3 HEENT: Normocephalic, atraumatic, somewhat dry mucous membranes Respiratory: Normal respiratory effort, on RA, diffuse wheezing b/l, no rhonchi, no accessory muscle use Cardiovascular: RRR Abdomen/GI: Normal bowel sounds, soft, nontender to palpation in all quadrants Extremities/Musculoskeletal: chronic BLE venous stasis changes, chronic BLE ulcerations (pictured below) Neurologic: No overt focal deficits, CN's II-XI not formally tested but appear grossly intact bilaterall Principal Diagnosis B/L extremity venous stasis ulcer Discharge Exam General: Obese M, laying down in bed, unkempt appearance, A&Ox3 HEENT: Normocephalic, atraumatic, moist mucous membranes Respiratory: Normal respiratory effort, on RA, no rhonchi, no accessory muscle use Cardiovascular: RRR Abdomen/GI: Normal bowel sounds, soft, nontender to palpation in all quadrants Extremities/Musculoskeletal: chronic BLE venous stasis changes, chronic BLE ulcerations, no streaking erythema/swelling/foul smelling drainage Neurologic: No overt focal deficits, CN's II-XI not formally tested but appear grossly intact bilaterally Discharge Data Allergies Allergy/AdvReac Type Severity Reaction Status Date / Time peas Allergy Severe Anaphylaxis Verified 06/19/23 10:28 tuna oil Allergy Severe Anaphylaxis Verified 06/19/23 10:28 to "tuna" sulfamethoxazole Allergy Intermediate hives Verified 06/19/23 10:28 trimethoprim Allergy Intermediate hives Verified 06/19/23 10:28 Consultations 08/25/25 09:54 ED Decision to Admit Stat 08/26/25 11:38 Consult Podiatry Routine Hospital Course (1) Ulcer of extremity due to chronic venous insufficiency: Plan Patient is a 50-year-old male with past medical history significant for DM type II with diabetic neuropathy and diabetic dermatitis, HLD, heterozygous MTHFR mutation C677T, heterozygous factor 5 Leiden mutation, chronic BLE venous stasis ulcers with history of recurrent BLE cellulitis resulting in frequent hospitalizations for IV ABX therapy, 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 Patient was evaluated by podiatry; no strong evidence of local infection with wound beds remaining 100% granular and no simran purulence. Patient's swelling and redness have markedly improved compared to prior admission. Patient was recommended to follow-up with wound care center on regular basis. Patient discharged home Please note the above document was generated using voice recognition software. It may contain grammatical, syntax or spelling errors. Any formal questions or concerns about the content, text or information contained within the body of this dictation should be directly addressed to the provider for clarification Total Time Total Time Spent Total Time Spent (In Minutes): 45 Total Time Includes: Examination of the Patient, Discharge Planning, Medication Reconciliation, Communication With Other Providers and Other Discharge Plan Discharge Items Patient Disposition: Home - Self-Care Reason For Visit: RECURRENT BLE CELLULITIS Discharge Diagnosis: B/L venous stasis Condition on Discharge: Good Non-emergency contact: Primary Care Provider Call non-emergency contact if: you have any medication questions and your symptoms worsen Follow-up/Referrals: Willa Soto PA-C [Primary Care Provider] - (Date & Time 09/02/2025 9:00 AM Provider: Willa Soto PA-C [facility] ) Diet: Regular Addtl Attending Provider Instructions: Continue to take your medications as prescribed. Follow up with PCP and wound care Pending Studies at Discharge: No Stand-Alone Forms: My [employer], Smoking Cessation Medications and DC Order Prescriptions: Continued omeprazole 20 mg Capsule,Delayed Release(Dr/Ec) 20 mg PO BID folic acid 1 mg Tablet 1 mg PO QAM albuterol sulfate [Ventolin HFA] 90 mcg/actuation Hfa Aerosol Inhaler 1 puff INHALATION Q6H PRN (Reason: Shortness Of Breath) furosemide 80 mg tablet 80 mg PO BID17 diphenhydramine HCl [Benadryl] 25 mg capsule 25 mg PO Q6H PRN (Reason: Itching) multivitamin Tablet 1 tab PO QAM fluticasone propion-salmeterol 500-50 mcg/dose blister with device 1 inh INHALATION BID montelukast 10 mg tablet 10 mg PO DAILY fluoxetine 20 mg capsule 20 mg PO HS buspirone 15 mg tablet 15 mg PO BID Lac-Hydrin Five 5 % Lotion 1 applic EXT BID Qty: 226 2RF hydroxyzine HCl 10 mg tablet 10 mg PO Q8H PRN (Reason: Itching) Spiriva Respimat 2.5 mcg/actuation mist 2 inh INHALATION DAILY pregabalin 150 mg Capsule 150 mg PO TID (DME) blood-glucose meter [Accu-Chek Guide Glucose Meter] Misc See Rx Instructions .Route Qty: 1 1RF Rx Instructions: As directed atorvastatin 40 mg tablet 40 mg PO DAILY Eliquis 5 mg tablet 5 mg PO BID losartan 25 mg tablet 25 mg PO DAILY spironolactone 100 mg tablet 100 mg PO DAILY oxycodone 10 mg tablet 10 mg PO QID PRN (Reason: Severe Pain (Scale Score 7-10)) Ozempic 1 mg/dose (4 mg/3 mL) pen injector 1 mg SUBCUT WK Discontinued cephalexin 500 mg Capsule 500 mg PO QID Qty: 27 0RF Rx Instructions: Take one capsule by mouth four times per day - last dose on 08/26/2025 before bed - take with food to prevent stomach upset Discharge Orders: Discharge Order (Routine); Ordered 08/27/25 Ordered By: Praveen Fitzgerald Admission Data Admit Date/Time: 08/25/25 10:22 Attending Provider: Praveen Fitzgerald Admit Provider: Stevie Fabian Primary Care Provider: Willa Soto Other Providers: Stevie Fabian; Gerson La Other Interventions: Discharge Summary Assessment (RN) Last Done: 08/27/25 09:31
[2025-08-27 09:24] LABS: Hematocrit (blood only) 36.2 % (42.0-52.0); Hemoglobin 11.5 g/dL (14.0-18.0); Mean Corpuscular Hemoglobin 26.2 pg (25.0-34.0); Mean Corpuscular Volume 82.5 fL (80.0-100.0); Platelet Count 222 K/uL (130-400); RDW Standard Deviation 47.9 fL (36.4-46.3); Red Blood Count 4.39 M/uL (4.70-6.10); White Blood Count 5.54 K/ul (4.8-10.8)
[2025-08-27 09:40] LABS: Anion Gap 11.0 (3-11); Blood Urea Nitrogen 37.0 mg/dl (6-23); Calcium 9.4 mg/dl (8.6-10.3); Carbon Dioxide 27.0 mmol/L (21-32); Chloride 96.0 mmol/L (98-107); Creatinine Clr Calc Pharmacy 54.9 ml/min; Glucose 121.0 mg/dl (70-99(Fasting)); Magnesium 2.2 mg/dl (1.7-2.4); Potassium 3.7 mmol/L (3.5-5.1); Sodium 134.0 mmol/L (136-145)
[2025-08-27] MEDS: HEPARIN 100 UNIT/ML 5ML FLUSH FLUSH PRN (09:41)
== END 2025-08-27 09:50 | disposition home or self-care (01) ==
LOC: ED 07:46 → EDINP 07:46 → SUATTDRO 10:22 → 3N 12:25